=== PATIENT | female | born 1945 | race Caucasian/White ===

== ENCOUNTER 2020-05-09 13:17 | Inpatient (IN) | payer OTHER ==
--- NOTE | 2020-05-09 15:08 | R.PREADM ---
PRE-ADMISSION SCREENING FORM SCREENING DATE AND TIME 05/09/2020 13:19 (CDT) ANTICIPATED REHAB ADMISSION DATE 05/11/2020 REFERRING FACILITY [facility] REFERRAL DATE AND TIME 05/09/2020 11:49 (CDT) REFERRAL ROOM# [facility] 11B ACUTE ADMIT DATE 05/08/2020 Previous Rehabilitation(s): No. ACUTE CANDY DECORATOR/DC INFORMATION TECHNOLOGY ASSISTANT Chava REFERRING PHYSICIAN DR. Susan Womack REHAB FACILITY [facility] CLINICAL LIAISON Sade Brooks PHYSICIAN REVIEWER Dr. Demar Cortez M.D. MR# [id number] [facility] [id number] NAME Lovely Roblero ADDRESS [address] [place] [address] [place]IP [id number] DATE OF 1945 AGE 75 SSN# [id number] GENDER female MARITAL STATUS RACE white PREF. LANGUAGE (IF NON-UGANDAN) Stateless ADMIT FROM 02 - [facility] PRE-HOSPITAL LIVING SETTING 01 - Home (private home/apt. board/care, assisted living, correction, transitional living) HOME TYPE AND DETAILS Type of home: single family house # of steps to enter the residence: 0 # of steps within the residence: 0 # of levels in the residence: 1 lives with son who works from home PRE-HOSPITAL LIVING WITH Family/Relatives FAMILY SUPPORT Yes PRIMARY FAMILY CONTACT NAME Margarita Cortez PRIMARY FAMILY CONTACT PHONE PRIMARY FAMILY CONTACT RELATIONSHIP Son IS PRIMARY FAMILY CONTACT AUTH. REP.? no 1ST EMERGENCY CONTACT Margarita Cortez 1ST CONTACT PHONE 1ST CONTACT RELATIONSHIP Son IS 1ST CONTACT AUTH. REP.? no PHONE 2ND CONTACT ON ADM.? no PATIENT EMPLOYMENT STATUS Retired (for age) PATIENT EMPLOYER No Employer PAYOR INFORMATION: 1ST PAYOR NAME MEDICARE 1ST PAYOR PHONE 1ST PAYOR INJURY/ILLNESS DUE TO ACCIDENT? No ANOTHER CONSTITUTION PARTY RESPONSIBLE? No PRIMARY REHAB/ACUTE DIAGNOSIS: acute cerebellar stroke ONSET DATE 05/08/2020 REHAB IMPAIRMENT CATEGORY (LITO): 01 Stroke (STR) MEETS 60% rule AFFECTED EXTREMITIES: LLE, and LUE PRIMARY DIAGNOSIS-RELATED SURGERIES: No surgeries related to the primary diagnosis were performed. SUMMARY OF ACUTE HOSPITALIZATION: Pt. is a 75 yo Right-handed white female. On 05/08/2020 Pt. presented to [facility] with sudden onset of left-side weakness. On 05/08/2020 she was admitted to [facility] with diagnosis acute cerebellar stroke. Her impairment category is Stroke 01 - Left Body (Right Brain) (01.1). Pre-morbidly, Pt. was independent/mod-I in Transfers Control, Self-Care, and Locomotion; and she had good Balance, Safety Awareness, Sphincter Control, Communication, and Social Cognition. Currently, she has deficits of Transfers Control, Balance, Locomotion, Safety Awareness, and Self-Car e. Pt. is now referred to [facility] for acute in-patient rehabilitation in order to maximize patient's functional independence in activities of daily living, strength, ROM, and mobi lity. Patient has realistic goal of being discharged at assistance level 6-Adriane to reside at Home with Fam petr/Relatives. PAST MEDICAL HISTORY HTN Dyastolic Dysfunction Bilateral Carotid Artery Stenosis CKD 3 Hypothyroidism, unspecified (E03.9) Neuropathy PAST SURGICAL HISTORY: Left Renal Artery Stent COLONOSCOPY Esophogialgastroendoscopy Cholecystectomy thyroidectomy Tonsillectomy MEDICATION ALLERGIES: Aspirin ENVIRONMENTAL ALLERGIES: None Known - Substance Allergies None Known - Other Allergies None Known CODE STATUS: Full code WEIGHT/HEIGHT/BMI: WEIGHT 153 lbs HEIGHT 4' 11" BMI 30.9 DIET: - Diet Type Regular - Diet - Solid Texture Regular - Diet - Liquid Texture Regular - Tube Feed N/A REVIEW OF SYSTEMS: - Gen Alert and awake Lying in bed No apparent distress Oriented to: person, time, and place - Vital Signs Vital signs stable, afebrile - CVS RRR VITAL SIGNS Temperature: 97.7 F SBP/DBP: 217/90 Pulse: 53 Resp: 18 Vital signs stable, afebrile MEDICATIONS/TREATMENT: - See attached MAR (Medication Administration Record). CURRENT SPHINCTER CONTROL: Pre-hospital bladder status: continent # of bladder accidents in the last 7 days prior to screenin Pre-hospital bowel status: continent DETAILED CURRENT FUNCTIONAL STATUS: - Walking score based on distance walked: 1(<=50ft) QI SCORES: - Self-Care A. Eating 05-Setup or clean-up assistance B. Oral hygiene 05-Setup or clean-up assistance C. Toileting hygiene 03-Partial/moderate assistance E. Shower/bathe self 04-Supervision or touching assistance F. Upper body dressing 05-Setup or clean-up assistance G. Lower body dressing 05-Setup or clean-up assistance H. Putting on/taking off footwear 04-Supervision or touching assistance - Mobility A. Roll left and right 04-Supervision or touching assistance B. Sit to lying 04-Supervision or touching assistance C. Lying to sitting on side of bed 04-Supervision or touching assistance D. Sit to stand 04-Supervision or touching assistance E. Chair/vxc-ct-tlmha transfer 04-Supervision or touching assistance F. Toilet transfer 04-Supervision or touching assistance G. Car transfer 10-Not attempted due to environmental limitations I. Walk 10 feet 04-Supervision or touching assistance J. Walk 50 feet with two turns 88-Not attempted due to medical condition or safety concerns K. Walk 150 feet 88-Not attempted due to medical condition or safety concerns L. Walking 10 feet on uneven surfaces 88-Not attempted due to medical condition or safety concerns M. 1 step (curb) 88-Not attempted due to medical condition or safety concerns N. 4 steps 88-Not attempted due to medical condition or safety concerns O. 12 steps 88-Not attempted due to medical condition or safety concerns P. Picking up object 88-Not attempted due to medical condition or safety concerns - Bladder and Bowel Bladder continence 0-Always continent Bowel continence 0-Always continent - Endurance Poor - Balance Poor - Safety Awareness Poor CURRENT FUNC. DEFICITS: Self-Care, Mobility, Endurance, Balance, and Safety Awareness HISTORY OF FALLS. HAS THE PATIENT HAD TWO OR MORE FALLS IN THE PAST YEAR OR ANY FALL WITH INJURY IN T HE PAST YEAR?: No PRIOR SURGERY. DID THE PATIENT HAVE MAJOR SURGERY DURING THE 100 DAYS PRIOR TO ADMISSION?: No THERAPY NOTES FROM ACUTE CARE: Attached. SPECIAL NEEDS: - Safety Concerns Skin breakdown precautions needed due to skin breakdown risk PRECAUTIONS: - Weight Bearing Precaution WBAT left LE PATIENT NEEDS ACTIVE AND ONGOING THERAPEUTIC INTERVENTION OF MULTIPLE THERAPY DISCIPLINES, INCLUDING: - Occupational Therapy Cognitive Retraining. Visual Perceptual Training. - Dietary and Nutrition Adequate Nutrition. Nutritional Education. Nutritional Supplements. - Speech Therapy Cognitive Training. Expressive Language Skills. Memory Strategies. Receptive Language Skills. Speech Intelligibility Training. PATIENT NEEDS CLOSE MEDICAL SUPERVISION BY A REHABILITATION PHYSICIAN FOR: Coordination of Treatment Team PATIENT REQUIRES 24X7 REHAB NURSING FOR MEDICAL AND FUNCTIONAL MGT. OF THE FOLLOWING DEFICITS: Disease Management Medication Management Patient/Family Education Providing Safe Environment PATIENT REQUIRES INTENSIVE, COORDINATED INTERDISCIPLINARY APPROACH TO REHAB: Arranging Home Equipment/Services Discharge Planning Family Intervention/Training Tax Compliance Manager/Case Management PATIENT REHAB POTENTIAL: Laura Roblero is able and expected to receive 3 hours of individualized therapy daily on at least 5 of adebayo ry 7 days Laura Hymans prognosis for significant practical improvement within a reasonable period of time appears Good Expected level of measurable improvement will be of a practical value to Laura Hymans functional capaci ty or adaptations to impairments Has a viable Discharge Plan Medically appropriate; condition is sufficiently stable to participate in intensive rehab program DISCHARGE PLAN: - Estimated Length of Stay (days) 17. - Consensus on plan Discharge plan has been discussed with primary caregiver. Patient/Family is in agreement with the mis n. Primary caregiver is in agreement with the plan. - Patient/Family Goals Return home independently. - Planned Living Setting Upon Discharge Home, to live with Family/Relatives. RECOMMENDED CARE LEVEL: IRF RECOMMENDATION DETAILS: Recommended Admission to Comprehensive Rehabilitation Program to Increase Functional [place] SCREENER'S COMPLETENESS CONFIRMATION: - Screening Confirmation The patient data collection on this preadmission screening form is finished PHYSICIANS REVIEW AND ADMISSION DETERMINATION Admit - Based on my review of the Pre-Admission Screening results, in my medical judgment and experie nce, I concur with the findings and recommend admission to [facility], as this patient requires an IRF level of care. SIGNATURE PANEL: Clinical Liaison - [electronically] signed by Sade Brooks RN on 05/09/2020 at 13:58 (CDT) Chinchilla Farmer - [electronically] signed by Rachel Hastings, Tire Recapper on 05/09/2020 at 14:15 (CD T) Physician Reviewer - [electronically] signed by Dr. Demar Cortez M.D. on 05/09/2020 at 15:07 (CDT )
--- OUTSIDE RECORDS SUMMARY | 2020-05-09 18:46 | XMS REPORT | Summary of Care ---
:1945 Author Organization [facility] Address [address] [place] [id number] Care Team Providers Name Role Phone Jose Bernal MD Primary Care Provider Pascale Shaffer MD Unavailable Julee Garcia MD Unavailable Magdalena Frey MD Studio Director Reason for Visit Reason Comments Refill Request Encounter Details Date Type Department Care Team Description 02/14/2020 Refill [facility] Pediatric and Laure Bernal, Refill Request Adult Primary Care- MD Melendez [address] [place] [address] [address] [address] [address] [place] [address] [place] [address] [phone] Allergies Active Allergy Reactions Severity Noted Date Comments Amoxicillin Nausea and/or Vomiting Low 12/14/2017 documented as of this encounter (statuses as of 02/14/2020) Medications Medication Sig Dispensed Refills Start Date End Date Status aspirin 81 mg Take 1 tablet 30 tablet 6 10/27/2016 A ctive chewable tablet by mouth daily. HYDROCODONE-ACETAMIN Take by 0 Active OPHEN ORAL mouth. losartan 50 mg Take 1.5 135 tablet 2 05/11/2019 Act jamey tabletIndications: tablets by Essential mouth every hypertension, day at 1200 benign, (HFpEF) (noon). heart failure with preserved ejection fraction, Obesity (BMI 30-39.9), LANDRY (dyspnea on exertion), Uncontrolled hypertension, Chronic kidney disease, unspecified CKD stage carvedilol 25 mg Take 1 tablet 180 tablet 3 05/11/2019 Active tabletIndications: by mouth 2 Essential (two) times hypertension, daily with benign, (HFpEF) meals. heart failure with preserved ejection fraction, Obesity (BMI 30-39.9), LANDRY (dyspnea on exertion), Uncontrolled hypertension, Chronic kidney disease, unspecified CKD stage metroNIDAZOLE Take 1 tablet 30 tablet 3 10/11/2019 A ctive (FLAGYL) 500 mg by mouth every tabletIndications: 8 (eight) Diverticulitis hours. ciprofloxacin HCl Take 1 tablet 20 tablet 3 10/11/2019 Active (CIPRO) 500 mg by mouth every tabletIndications: 12 (twelve) Diverticulitis hours. Diclofenac Sodium Take 2-4 grams 100 g 3 10/11/2019 Active (VOLTAREN) 1 % three times a gelIndications: day as needed Right anterior for pain shoulder pain albuterol 2.5 mg /3 Inhale 3 mL 180 Vial 3 11/11/2019 Active mL (0.083 %) every 4 (four) nebulizer hours as solutionIndications: needed for SOBOE (shortness of Wheezing or breath on exertion), Shortness of Heart failure with Breath. preserved ejection fraction, unspecified HF chronicity LEVOTHYROXINE 125 TAKE ONE 90 tablet 0 02/14/2020 A ctive mcg tablet TABLET BY MOUTH EVERY MORNING levothyroxine 125 Take 1 tablet 90 tablet 1 03/30/2019 02 Discontinued mcg tablet by mouth every 0 morning. documented as of this encounter (statuses as of 02/14/2020) Active Problems Problem Noted Date Combined forms of age-related cataract of left eye Overview: Added automatically from request for cara briana [id number] Combined forms of age-related cataract of both eyes Overview: Added automatically from request for cara briana [id number] Intestinal angina 12/31/2017 Generalized abdominal pain 12/04/2017 Renal artery stenosis 11/16/2017 CKD (chronic kidney disease) stage 3, GFR 30-59 ml/min 09/22/2017 Secondary hypertension 09/21/2017 (HFpEF) heart failure with preserved ejection fraction 09/21/2017 Hypothyroidism 04/11/2006 Overview: ICD10 Diagnosis Term Chipper Feeder Utility HLD (hyperlipidemia) 04/11/2006 Overview: ICD10 Diagnosis Term Chipper Feeder Utility documented as of this encounter (statuses as of 02/14/2020) Resolved Problems Problem Noted Date Resolved Date Anxiety disorder 01/01/2018 05/15/2018 Insomnia secondary to anxiety 01/01/2018 05/15/2018 Hospitalization within last 30 days 12/31/2017 10/0 08/2017 Vomiting 12/30/2017 05/15/2018 Unspecified severe protein-calorie malnutrition 12/27/2017 05/15/2018 Protein-calorie malnutrition, moderate 12/27/2017 1 Protein-calorie malnutrition, mild 12/27/201705/15 Moderate protein-calorie malnutrition 12/27/2017 Mild protein-calorie malnutrition 12/27/20172017 Stomach pain 11/23/2017 05/15/2018 Persistent vomiting 11/21/2017 05/15/2018 Obesity (BMI 30-39.9) 10/21/2016 05/15/2018 CHF (congestive heart failure) 8 documented as of this encounter (statuses as of 02/14/2020) Immunizations Name Administration Dates Next Due Influenza High Dose 10/11/2019, 10/26/2018, 07/16/2017 Pneumococcal 13 Conjugate, PCV13 (Prevnar 07/16/2017 13) Pneumococcal Polysaccharide, PPSV23 10/27/2016 (PNEUMOVAX) Td 08/11/2019 documented as of this encounter Social History Tobacco Use Types Packs/Day Years Used Date Never Smoker Smokeless Tobacco: Never Used Alcohol Use Drinks/Week oz/Week Comments No 0 Standard drinks or equivalent 0.0 Sex Assigned at Date Recorded Not on file Job Start Date Occupation Industry Not on file Not on file Not on file Travel History Travel Start Travel End No recent travel history available. documented as of this encounter Last Filed Vital Signs Not on filedocumented in this encounter Plan of Treatment Date Type Specialty Care Team Description 04/10/2020 Office Visit Internal Medicine Tara Bernal MD [address] [place] [address] [phone] 05/16/2020 Office Visit Cardiology Andrew Frey MD [address] [place] [phone] Health Maintenance Due Date Last Done Comments DTaP,Tdap,and Td Vaccines (1 1957 08/11/2019 - Tdap) Zoster Recombinant Vaccine 1996 (SHINGRIX) (1 of 2) Medicare Wellness Visit 02/28/2020 02/27/2019 Breast Cancer Screening 03/01/2020 Postpone d from 1986 (MAMMOGRAM) (Refused) Depression Screening 08/24/2020 08/24/2019 COLONOSCOPY 11/26/2027 11/25/2017 Osteoporosis Screening 11/07/2028 11/07/2018 HEPATITIS C (HCV) SCREEN Completed 11/10/2016 PNEUMOCOCCAL VACCINES 65+ Completed 07/16/2017, 10/27/2016 INFLUENZA VACCINE Completed 10/11/2019, 10/26/2018, 07/16/2017 documented as of this encounter Implants Implanted Type Area Photogrammetric Compilation Specialist Device Shelf Model / Serial Identifier Expiration / Lot Date Lens, Salty #[id number] 24.0d - [id number] LENS Right: Salty 03/14/2023 SN60WF 24.0D / Implanted: Qty: 1 on 09/07/2018 by Isiah Castelan MD at [facility] Eye [id number] / 0 Lens, Salty #[id number] - [id number] LENS Salty 05/14/2019 [id number] / Implanted: Qty: 1 on 10/12/2018 by Isiah Castelan MD at [facility] [id number] / 0 documented as of this encounter Results Not on filedocumented in this encounter Insurance Payer Benefit Plan / Subscriber ID Effective Dates Phone Addre ss Type Group MEDICARE MEDICARE PART xxxxxxxxxxx 2011-Steven [phone] Medicare [address] [id number] [place] [employer] [id number] documented as of this encounter
--- OUTSIDE RECORDS SUMMARY | 2020-05-09 18:47 | XMS REPORT | Summary of Care ---
:[address] [facility] Address [address] [place] [id number] Care Team Providers Name Role Phone Jose Bernal MD Primary Care Provider Pascale Shaffer MD Unavailable Julee Garcia MD Unavailable Magdalena Frey MD Internet Marketing Assistant Reason for Referral (Routine) Status Reason Specialty Diagnoses / Referred By Referred To Procedures Contact Contact New Request PN-NEUROLOGY Diagnoses Left-sided weakness Kervin Garcia Procedures Discharge Follow-Up: Specialty Service PN-NEUROLOGY ; As Needed (90 days) MD Michael [address] [place] [address] (Routine) Status Reason Specialty Diagnoses / Referred By Contact Refe rred To Procedures Contact New Request Diagnoses Left-sided weakness GarciaKervin blanton, Procedures Discharge Follow-up: PCP HUI BERNAL; 1 Week MD Hui Rodriguez MD [address] [place] [address] [place], [place] [address] [address] Phone: [place] [address] Fax: (Routine) Status Reason Specialty Diagnoses / Procedures Referred By Nely michaelerred To Contact Contact New Request Cardiology Diagnoses Left-sided weakness Ataxia Susan oWmack MD Procedures STROKE Protocol - Echocardiogram Routine with Doppler Color [facility] [place] [address] MRI/CAT Scan (STAT) Status Reason Specialty Diagnoses / Referred By Referred To Procedures Contact Contact New Request Diagnostic Diagnoses Left-sided weakness Susan Womack MD Radiology Procedures MR BRAIN WO CONTRAST [facility] [place] [id number] MRI/CAT Scan (STAT) Status Reason Specialty Diagnoses / Referred By Referred To Procedures Contact Contact New Request Diagnostic Diagnoses Left-sided weakness Oly Mcclelland, Radiology Procedures CT STROKE ANGIOGRAM NECK [address] [place] [address] MRI/CAT Scan (STAT) Status Reason Specialty Diagnoses / Referred By Referred To Procedures Contact Contact New Request Diagnostic Diagnoses Left-sided weakness Oly Mcclelland, Radiology Procedures CT STROKE ANGIOGRAM HEAD [address] [place] [address] MRI/CAT Scan (STAT) Status Reason Specialty Diagnoses / Referred By Referred To Procedures Contact Contact New Request Diagnostic Diagnoses Left-sided weakness Oly Mcclelland, Radiology Procedures CT STROKE HEAD WO CONTRAST [address] [place] [id number] Reason for Visit Reason Comments Weakness Left sided Auth/Cert Status Reason Specialty Diagnoses / Referred By Referred To Procedures Contact Contact Emergency [facility] [address] [place] [address] Fax: Encounter Details Date Type Department Care Team Description 05/08/2020 - Hospital Encounter Neurology/Neurologic Oly Mcclelland MD [address] [place] [address] [place] [address] [id number] Ataxia 05/09/2020 al Surgery (CHELLY 11B) Susan Womack MD [address] [place] [address] [address] [place] [address] Allergies Active Allergy Reactions Severity Noted Date Comments Amoxicillin Nausea and/or Vomiting Low 12/14/2017 documented as of this encounter (statuses as of 05/09/2020) Medications Medication Sig Dispensed Refills Start End Date Status Date Diclofenac Sodium Take 2-4 grams 100 g 3 Active (VOLTAREN) 1 % three times a 0 gelIndications: day as needed Right anterior for pain shoulder pain albuterol 2.5 mg /3 Inhale 3 mL 180 Vial 3 Active mL (0.083 %) every 4 (four) 0 nebulizer hours as solutionIndications needed for : SOBOE (shortness Wheezing or of breath on Shortness of exertion), Heart Breath. failure with preserved ejection fraction, unspecified HF chronicity LEVOTHYROXINE 125 TAKE ONE 90 tablet 0 Ac tive mcg tablet TABLET BY 0 MOUTH EVERY MORNING atorvastatin 80 mg Take 1 tablet 90 tablet 2 Active tabletIndications: by mouth at 0 Left-sided weakness bedtime. clopidogreL 75 mg Take 1 tablet 28 tablet 0 Active tabletIndications: by mouth 0 Left-sided weakness daily. FLUoxetine 10 mg Take 1 capsule 90 capsule 0 Active capsuleIndications: by mouth 0 Left-sided weakness daily. aspirin 81 mg Take 1 tablet 30 tablet 7 Ac tive chewable by mouth 0 tabletIndications: daily. Left-sided weakness carvediloL 25 mg Take 1 tablet 60 tablet 0 Active tabletIndications: by mouth 2 0 Left-sided weakness (two) times daily with meals. losartan 50 mg Take 1.5 60 tablet 0 Activ e tabletIndications: tablets by 0 Left-sided weakness mouth daily. aspirin 81 mg Take 1 tablet 30 tablet 6 05/09/20 Di scontinued chewable tablet by mouth 7 20 (Reo rder) daily. HYDROCODONE-ACETAMI Take by 0 05/09/20 Discontinued NOPHEN ORAL mouth. 20 losartan 50 mg Take 1.5 135 tablet 2 05/09/20 Disc ontinued tabletIndications: tablets by 9 20 Essential mouth every hypertension, day at 1200 benign, (HFpEF) (noon). heart failure with preserved ejection fraction, Obesity (BMI 30-39.9), LANDRY (dyspnea on exertion), Uncontrolled hypertension, Chronic kidney disease, unspecified CKD stage carvedilol 25 mg Take 1 tablet 180 tablet 3 05/09/20 Discontinued tabletIndications: by mouth 2 9 20 Essential (two) times hypertension, daily with benign, (HFpEF) meals. heart failure with preserved ejection fraction, Obesity (BMI 30-39.9), LANDRY (dyspnea on exertion), Uncontrolled hypertension, Chronic kidney disease, unspecified CKD stage metroNIDAZOLE Take 1 tablet 30 tablet 3 05/09/20 Di scontinued (FLAGYL) 500 mg by mouth every 0 20 tabletIndications: 8 (eight) Diverticulitis hours. ciprofloxacin HCl Take 1 tablet 20 tablet 3 05/09/20 Discontinued (CIPRO) 500 mg by mouth every 0 20 tabletIndications: 12 (twelve) Diverticulitis hours. documented as of this encounter (statuses as of 05/09/2020) Active Problems Problem Noted Date Ataxia 05/09/2020 Combined forms of age-related cataract of left eye Overview: Added automatically from request for cara briana [id number] Combined forms of age-related cataract of both eyes Overview: Added automatically from request for cara briana [id number] Intestinal angina 12/31/2017 Generalized abdominal pain 12/04/2017 Renal artery stenosis 11/16/2017 CKD (chronic kidney disease) stage 3, GFR 30-59 ml/min 09/22/2017 Secondary hypertension 09/21/2017 (HFpEF) heart failure with preserved ejection fraction 09/21/2017 Hypothyroidism 04/11/2006 Overview: ICD10 Diagnosis Term Tuckpointer Cleaner Caulker Utility HLD (hyperlipidemia) 04/11/2006 Overview: ICD10 Diagnosis Term Tuckpointer Cleaner Caulker Utility documented as of this encounter (statuses as of 05/09/2020) Resolved Problems Problem Noted Date Resolved Date [...] as of this encounter (statuses as of 05/09/2020) Immunizations Name Administration Dates Next Due Influenza [...] Assigned at Date Recorded Not on file COVID-19 Exposure Response Date Recorded In the last month, have you been in contact with No / Unsure 05/08/2020 8:31 PM CDT someone who was confirmed or suspected to have Coronavirus / COVID-19? documented as of this encounter Last Filed Vital Signs Vital Sign Reading Time Taken Comments Blood Pressure 181/78 05/09/2020 4:10 PM CDT Pulse 62 05/09/2020 4:10 PM CDT Temperature 36.6 C (97.8 F) 05/09/2020 4:10 PM CDT Respiratory Rate 18 05/09/2020 4:10 PM CDT Oxygen Saturation 95% 05/09/2020 4:10 PM CDT Inhaled Oxygen Concentration - - Weight 69.4 kg (153 lb) 05/09/2020 12:20 AM CDT Height 149.9 cm (4' 11") 05/09/2020 12:20 AM CDT Body Mass Index 30.9 05/09/2020 12:20 AM CDT documented in this encounter Discharge Instructions AttachmentsThe following attachments cannot be sent through Care Everywhere. Stroke, Risk Factors for (Ukrainian)Stroke, Symptoms (Ukrainian)Stroke: Resources and Support (Ukrainian)Clopidogrel tablets (Ukrainian)Atorvastatin tablets (Ukrainian) documented in this encounter Progress Notes Rona Brooks, AXEL - 05/09/2020 2:25 PM CDT Care Management Discharge Disposition Note (DCDN) 5-2-1 Interventions: Disease specific education;Clear discharge plan;Intensive medication reconciliation/management;Follow-up appointments;Teach back 5-2-1 Providers: Physician;Oilseed Meat Presser/Ergonomist;Nurse 5-2-1 Patient Capacity Improvements: Avoidance of adverse events/readmission Discharge Plan for ongoing care and services: Rehabilitation Patient Choice completed for referred services: Yes Discussed with patient/patients family involved in decision making: Patient or family caregiver understands, and agrees with discharge plan. Margarita Cortez Daughter [phone]; Jordyn Jackson Daughter [phone] Discharge Plan: Rehabilitation Discharge location(s): Rehabilitation location: [facility] [address] [place], [place] () [phone] (F) [phone] Community resources/referrals made or provided to patient: No Mental Status: Alert & Oriented to Person,Place & Time Psychosocial issues and/or concerns resulting in patient being a high risk for re-admission: Manage ADL indepentdly: No Discussed with patient/patients family involved in decision making: Primary Family/Support Person Name and Phone Number: Living Arrangement: Home Other living arrangement: Address of living arrangement: [address] [place] [address] Funding Resources: Medicare A & B Has patient been referred to [facility]? Nursing informed of discharge plan: CM medication request completed (if appropriate): N/A PCP: Yes Transportation: Wheelchair Van [facility] Priority transport Discharge Medications Will the patient be able to obtain his medications? Yes Does the patient have transportation to to obtain the prescription medications? Yes CM Medication Request completed (if appropriate): Yes Name of RN informed: SANDRA Baker Expected discharge date: 05/09/2020 Time: 430pm to 530pm Additional Information: DC packet with signed MOT and PAC form given to RN. [facility] Priority Wheelchair Van [phone] is scheduled to pick patient up at 1630 to 1730. Please contact CC/SW or designated mode of transportation if arrival time is delayed greater than 1 hour of thescheduled picked edge sewing machine operator time. Discharge summary and discharge order faxed to in rehab VALENTINO/AXEL Name & Contact number: Ephraim Eaton RN Ph. [phone] The following information has been provided to the facility noted above: reason for the patient discharge or transfer; patients physical and psychosocial status; summary of care, treatment, servicesprovided to patient; and the patient progress toward goals. Ephraim Elizondo RN - 05/09/2020 12:02 PM CDTCare Management Social Functional Assessment Patient Name: Lovely Roblero Age: [age] year old Sex: female Patient's Previous Admission Date at [facility]: 12/30/2017 Current diagnosis and co-morbidities: Stroke Readmission Questions: Was patient discharged from any acute care hospital within the last 30 days: No Social Functional Assessment: Primary language spoken/preferred: Ukrainian Mental Status: Alert & Oriented to Person,Place & Time Information given by: Self Patient's support system: Child Name and number of support system: Margarita Cortez Daughter [phone]; Jordyn Jackson Daughter [phone] Primary Parlor Chaperone: Self MPOA: No Living Arrangement: Home Address of living arrangement : [address] [place] [address] Persons living in home: Self Barriers to returning home: Declining function Baseline functional status- ambulation: Independent Functional status-baseline personal care: Independent Baseline functional status- driving: Independent Baseline functional status- grocery shopping: Independent Functional status-baseline housekeeping: Independent Functional status-baseline meal prep: Independent Current functional status same as prior: No Current functional status- ambulation: Requires minimal to moderate assistance Current functional status- personal care: Requires minimal to moderate assistance Current functional status- driving: Dependent Current functional status- grocery shopping: Requires minimal to moderate assistance Current functional status-house keeping: Requires minimal to moderate assistance Current functional status- meal preparation: Requires minimal to moderate assistance Do you have a PCP?: Yes Name of PCP: HUI BERNAL Home Health Care Agency: No Provider Services: No DME Company: No Equipment: None Hemodialysis: No Community resources utilized: None Funding Resources: Medicare A & B Prescription coverage plan: Self Pay(Brian has [employer] Prescription program card) Pharmacy where meds are filled: Other Other pharmacy: [facility] [place], [place] Anticipated services prior to disharge: Continue Medical Eval;Consult;PT/OT/ST;Reassess prior to discharge Expected mode of discharge transportation: Wheelchair van Additional info required for discharge planning: Pending medical evaluation;Pending P/T O/T recommendation Recommended discharge plan: New placement SFA Complete: Social Functional Assessment complete: Yes Alcohol Use Screening (AUDIT-C) How often do you have a drink containing alcohol?: Never SCORE: 0 Did patient elect to have resources provided: No Actions taken: Provided support Role of Care Management explained. Please see previous note. On 05/09/20 Chava Eaton Jr., RN, BSN. Oilseed Meat Presser [phone] [email or web address] Ephraim Elizondo RN - 05/09/2020 11:44 AM CDTCare Management Note: After discussion with Dr. Garcia, and HEMANT Majano in stroke rounds, Dr. Garcia patient would benefit from rehab placement, and wants patient to go to inpatient rehab. CM met with patient and patient's daughters at bedside. CM spoke to patient in depth regarding the differences between HH VS SNF VS IRF. [facility] [address] [place] [address] . Choice letter signed. Referral sent. Dali with Rehab not ified. Choice Notice Patient has been informed that: "As part of your discharge plan, your hospital is required to provide you with (1) a complete list of appropriate Home Health Agency/Fpc Facility among which you are free to choose, and (2)information regarding certain financial interests among the hospital and any such REGISTERED PUBLIC SURVEYOR/SNFs ("Required Hospital Disclosures"). Your hospital will provide Required Hospital Disclosures to you separately. This Home Health Agency/Fpc Facility Ogfxeuw-zr-Hikw Supplement is intended to provide you with additional information regarding duxygaw-ci-dufi that you may consider in selecting a REGISTERED PUBLIC SURVEYOR/SNFand is not intended as a substitute or replacement for the Required Hospital Disclosures. Specifically, this Supplement highlights quality information about high-performing local vendors/facilities that serve patients with medical conditions similar to yours. We encourage you to discuss with our care team and your doctor(s) which vendors/facilities can best address your individual needs. The statements contained in the provided document are solely those of the authors and do not necessarily reflect the views or policies of [facility]. The authors assume responsibility for the accuracy and completeness of the information contained in this document." Lovely Bella Roblero [id number] 1945 RE: Care Management Patient Choice Notification Your doctor has recommended that you have post-hospital care services at discharge. You can choose the provider you want, regardless of its relationship with [facility]. We will contact any of the agencieswithin the [facility] network, or any other agency upon your request. Based on where you live and agency service areas, a list was generated from: Medicare.gov Disclosure: [facility] owns or is affiliated with the following facilities/agencies: [facility] ([facility] and rehabilitation) If you are being referred to a home health agency or [facility] facility, you will also be given a CMS Beneficiary Notification Letter (Blxfqsp-ry-Agux Profile Supplement) informing you about [facility]'s preferred partners. Patient Choice Acknowledgement I, Lovely Roblero / authorized inside sales representative, am aware that I have choice in selecting post-hospital care providers. The hospital has given me a list of providers in the area available to me and/or my authorized inside sales representative. My choice(s) are listed below: ? Rehab: [facility], [address], [place], [place] () [phone] (F) [phone] Your signature on this form indicates that you have been given the following information: ? I have been advised of my right to choose the providers I wish ? If mcc facilities, long-term acute care hospitals, personal care homes, or home healthagencies were recommended, I was given a list of facilities/agencies in my geographic area that deliver these services or ? I have pre-selected or am an established client with a facility/agency and choose to initiate/continue services 05/09/20 Patient/Guardian/Responsible Libertarian Signature Date Original signed and placed in paper chart, copy provided to patient. Chava Eaton Jr. RN, BSN. Oilseed Meat Presser [phone] [email or web address] - 05/09/2020 11:23 AM CDTSpeech-Language Pathology 05/09/2020 0955 [facility] to patient's room to address consult per stroke activation. However, patient getting echo. Will re-attempt later this date as time permits. Asia Pena M.S[facility] Speech-Language Pathologist Office: [phone] Pager: [phone] Ephraim Eaton RN - 05/09/2020 10:04 AM CDTCare Management Note: CM attempted to complete SFA, however, patient getting Bedside ECHO done. CM will follow up. Chava Eaton Jr., RN, BSN. Oilseed Meat Presser [phone] [email or web address] documented in this encounter H&P Notes Pedro Greene MD - 05/09/2020 1:45 AM CDT STROKE SERVICE HISTORY AND PHYSICAL DATE OF SERVICE: 05/09/2020 02:42 CHIEF COMPLAINT: ataxia, left face arm and leg weakness HISTORY OF PRESENT ILLNESS Lovely Roblero is a 75 year old female right handed with HTN, HFpEF (diastolic dysfunction, moderate concentric LV hypertrophy, normal EF in 2018), asymptomatic bilateral carotid artery stenosis, Bilateral renal artery stenosis s/p left renal artery stent (11/16/2017), CKD 3, Hypothyroidism, presents with left sided weakness and ataxia since 9am 05/08/20. Patient was LSN 11pm 05/07/20. She woke up with drooling on her left side and noted her left arm was difficult to control and "flopping", falling on her face. She was unable to stand up, however felt leg leg was "dragging" and weaker. Able towalk by holding onto dailey for support. Reported she noted a facial droop in the bathroom and had bernabe e slurred speech in the morning as well. She stayed home with all her symptoms lasting until evening, when she went to the ER ~8pm. Reported she had to lean to the right and grab objects not to fall over to the left side, denied any fall so far. Denied any diplopia, headache, nausea, neck pain, vertigo. At [facility], had only left sided ataxia, no weakness or slurred speech. Antiplatelets: Yes Aspirin 81mg Anticoagulations: No Tobacco abuse: No, never Alcohol abuse: No Drug abuse: No Previous stroke: No Body mass index is 30.9 kg/m. STROKE DOCUMENTATION Stroke Activation - Date: 05/09/20 Stroke Activation - Time: (not recorded) Neurology arrival at bedside - Date: 05/09/20 Neurology arrival at bedside - Time: 0150 CT-Head without contrast read by Neurology: (not recorded) Last seen normal: Last known well - Date: 05/07/20 Last known well - Time: 2300 Wake up stroke: Yes NIH STROKE SCALE NIHSS TOTAL: 2 NIHSS Interval: Admission LOC: 0 Alert: Keenly Responsive LOC QUESTIONS: 0 Answers Both Questions Correctly LOC COMMANDS: 0 Performs Both Tasks Correctly BEST GAZE: 0 Normal VISUAL: 0 No Visual Loss FACIAL PALSY: 0 Normal MOTOR ARM-LEFT: 0 No Drift MOTOR ARM-RIGHT: 0 No Drift MOTOR LEG-LEFT: 0 No Drift MOTOR LEG-RIGHT: 0 No Drift LIMB ATAXIA: 2 Present in Two Limbs SENSORY: 0 Normal BEST LANGUAGE: 0 No Aphasia DYSARTHRIA: 0 Normal EXTINCTION AND INATTENTION (FORMERLY NEGLECT): 0 No Abnormalty Dysphagia Screen: Dysphagia Screen Step 1: Pass (none of the above) Dysphagia Screen Step 2: Pass (none of the above) Dysphagia Screen Step 3: Pass (none of the above) Dysphagia Screen Step 4: Pass (none of the above) Dysphagia Screen Step 5: Pass (none of the above) IV Alteplase: Was Alteplase/IV thrombolytic therapy given?: No Reason no IV Alteplase/IV thrombolytic therapy initiated: Arrival > 4.5 hours from symptom onset Did patient and/or family agree to IV Alteplase? Yes If IV Alteplase therapy was indicated and given as a standard of care was the patient/family informed of benefits of treatment and risk such as hemorrhage and/or angioedema?: (not recorded) Was there a delay greater than 45 minutes: (not recorded) Reason (s): (not recorded) ICH/SAH ICH/SAH: No Endovascular Intervention: Was Endovascular Intervention Performed?: No Reason patient is not a candidate for endovascular intervention: NIH less than or equal to 6 PRE- ADMISSION MODIFIED EBENEZER SCORE 3 - Moderate disability; requiring some help, but able to walk without assistance PAST MEDICAL HISTORY Past Medical History: Diagnosis Date Asymptomatic bilateral carotid artery stenosis seen on imaging 12/2018 Bilateral renal artery stenosis 11/16/[address] in the Left renal artery Chronic combined systolic and diastolic congestive heart failure CKD (chronic kidney disease) stage 3, GFR 30-59 ml/min CVA (cerebral vascular accident) In 40s, reportedly related to thyroid surgery HTN (hypertension) Hypothyroidism surgically removed due to goiter Neuropathy PAST SURGICAL HISTORY Past Surgical History: Procedure Laterality Date SECTION COLONOSCOPY N/A 11/25/2017 Surgeon: Blair Caballero MD; Location: [facility] Location ESOPHAGOGASTRODUODENOSCOPY N/A 11/25/2017 Surgeon: Blair Caballero MD; Location: [facility] ([facility] Location PHACOEMULSIFICATION OF CATARACT WITH INTRAOCULAR LENS IMPLANT Right 09/07/2018 Surgeon: Isiah Garcia MD; [facility]: [facility] PHACOEMULSIFICATION OF CATARACT WITH INTRAOCULAR LENS IMPLANT Left 10/12/2018 Surgeon: Isiah Garcia MD; Location: [facility] THYROIDECTOMY in her 40s. 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 Social Needs Financial resource strain: Not on file Food insecurity Worry: Not on file Inability: Not on file Transportation needs Medical: Not on file Non-medical: Not on file Tobacco Use Smoking status: Never Smoker Smokeless tobacco: Never Used Substance and Sexual Activity Alcohol use: No Alcohol/week: 0.0 standard drinks Drug use: No Sexual activity: Not Currently Lifestyle Physical activity Days per week: Not on file Minutes per session: Not on file Stress: Not on file Relationships Social connections Talks on phone: Not on file Gets together: Not on file Attends muslim service: Not on file Active member of club or organization: Not on file Attends meetings of clubs or organizations: Not on file Relationship status: Not on file Intimate partner violence Fear of current or ex partner: Not on file Emotionally abused: Not on file Physically abused: Not on file Forced sexual activity: Not on file Other Topics Concern Not on file Social History Narrative Live at home alone, 1 story. 02/27/2019 Reviewed patient's family, surgical and social hx. HOME MEDICATIONS Medications Prior to Admission Medication Sig Dispense Refill Last Dose LEVOTHYROXINE 125 mcg tablet TAKE ONE TABLET BY MOUTH EVERY MORNING 90 tablet 0 albuterol 2.5 mg /3 mL (0.083 %) nebulizer solution Inhale 3 mL every 4 (four) hours as needed for Wheezing or Shortness of Breath. 180 Vial 3 ciprofloxacin HCl (CIPRO) 500 mg tablet Take 1 tablet by mouth every 12 (twelve) hours. 20 tablet 3 Diclofenac Sodium (VOLTAREN) 1 % gel Take 2-4 grams three times a day as needed for pain 100 g 3 metroNIDAZOLE (FLAGYL) 500 mg tablet Take 1 tablet by mouth every 8 (eight) hours. 30 tablet 3 carvedilol 25 mg tablet Take 1 tablet by mouth 2 (two) times daily with meals. 180 tablet 3 losartan 50 mg tablet Take 1.5 tablets by mouth every day at 1200 (noon). 135 tablet 2 HYDROCODONE-ACETAMINOPHEN ORAL Take by mouth. aspirin 81 mg chewable tablet Take 1 tablet by mouth daily. 30 tablet 6 HOSPITAL MEDICATIONS Current Facility-Administered Medications Medication Dose Route Frequency Last Rate Last Dose albuterol (PROVENTIL) 2.5 mg /3 mL (0.083 %) nebulizer solution 2.5 mg 2.5 mg Inhalation Q4HPRN aspirin chewable tablet 81 mg 81 mg Oral DAILY atorvastatin (LIPITOR) tablet 40 mg 40 mg Oral QHS heparin (porcine) injection 5,000 Units 5,000 Units Subcutaneous Q12H labetaloL (NORMODYNE) injection 20 mg 20 mg Slow IV Push Q30MIN PRN levothyroxine (SYNTHROID) tablet 125 mcg 125 mcg Oral QAM-0600 NaCl 0.9% (NS) injection 5 mL 5 mL Slow IV Push PRN - SEE INSTRUCTIONS ALLERGY Allergies Allergen Reactions Amoxicillin Nausea and/or Vomiting REVIEW OF SYSTEMS General: (-) fever, (-) chills, (-) weight change, (-) dizziness, (-) change in appetite Skin: (-) rash, (-) lesion HEENT: (-) headache, (-) change in hearing, (-) change in vision, (-) nasal discharge, (-) sore throat Neck: (-) pain, (-) difficulty swallowing, (-) mass Heme: (-) bleeding disorder Resp: (-) cough, (-) shortness of breath, (-) dyspnea on exertion Cardio: (-) chest pain, (-) palpitations, (-) syncope GI: (-) abdominal pain, (-) nausea, (-) vomiting, (-) diarrhea, (-) constipation, (-) melena, (-) hematochezia, (-) hematemesis : (-) dysuria, (-) hematuria, (-) increased frequency, (-) difficulty urinating, (-) difficulty initiating Endo: (-) heat intolerance, (-) diabetes, (-) cold intolerance, (-) polyuria, (- ) polydipsia Neuro: per HPI Back: (-) pain, (-) spasms FARIDEH: (-) muscle pain, (-) joint pain, (-) claudication Psych: (-) anxiety, (-) depression, (-) psychiatric disorder PHYSICAL EXAM Vitals: 05/08/20 2230 05/09/20 0020 05/09/20 0026 05/09/20 0100 BP: (!) 172/75 (!) 217/90 (!) 184/75 BP Location: Right arm Pulse: 50 53 Resp: 18 Temp: 36.5 C (97.7 F) TempSrc: Oral SpO2: 97% 95% Weight: 69.4 kg (153 lb) Height: 1.499 m (4' 11") General: Alert and oriented x 4 (time, person, place and situation); no apparent distress. Mental Status: Consciousness, attention, concentration: normal, 2 step commands Speech/ Language: intact to comprehension, fluency, repetition and naming. Fund of knowledge: is congruent with level of education. Cranial Nerves: I. Not tested. II. PERRL. FOV full to confrontation. III. IV., . Extraocular movements intact without nystagmus. V. Normal sensation in V1-3 distributions. VII. No facial droop noted. VIII. Hearing intact. IX., X. Palatal elevation present symmetrically. XI. Normal Strength of sternocleidomastoid and trapezius muscles bilaterally. XII. Tongue in midline. Motor: Tone: normal Bulk: normal Slow fine finger movement with left hand. STRENGTH Right Left Deltoid 5 4+ Biceps 5 4+ Triceps 5 4+ Wrist extensors 5 4 Interossei 5 4 Hip flexors 5 4 Knee flexors (hamstring) 5 4+ Knee extensors (quadriceps) 5 4+ Ankle dorsiflexors 5 4+ Ankle plantar flexors 5 4+ DTR's: Right Left Biceps 2+ 2+ Triceps 2+ 2+ Brachioradialis 2+ 2+ Patella 2+ 2+ Achilles 2+ 2+ Pathologic reflexes and signs: Wick: absent Babinski: absent Cerebellar: Ataxia in proportion to weakness. FTN: left hand ataxic, HTS:left leg ataxic with HTS and drawing [place] in the air, Dysdiadochokinesia: slow with the left hand, Finger tapping slow in left hand. Sensory: LT: intact, proprioception: intact Gait: wide based gait, left-leaning, able to stand with support to keep balance, unable to test Romberg (unsteady even with eyes open). Able to take steps, falling over to the left. HEENT: pupils equal, round, reactive to light; extraocular movements intact; oropharynx clear; moistmucous membranes Lungs: clear to auscultation bilaterally Cardio: RRR Extremities:no cyanosis,clubbing or edema Neck:supple,no carotid bruit,no JVD Abdomen: soft; non-tender; non-distended LABS Recent Results (from the past 24 hour(s)) Prothrombin Time / INR - Code Stroke Collection Time: 05/08/20 8:50 PM Result Value Ref Range PROTIME PATIENT 12.0 12.0 - 14.7 Seconds INR 0.9 aPTT Collection Time: 05/08/20 8:50 PM Result Value Ref Range APTT Patient 30 23 - 38 Seconds CBC without Diff - Code Stroke Collection Time: 05/08/20 8:50 PM Result Value Ref Range WBC 7.67 4.30 - 11.10 10*3/L RBC 4.89 3.93 - 5.25 10*6/L HGB 14.7 11.6 - 15.0 g/dL HCT 45.2 35.7 - 45.2 % MCH 30.1 25.9 - 32.8 pg MCV 92.4 80.6 - 95.5 fL MCHC 32.5 31.6 - 35.1 g/dL PLT 229 166 - 358 10*3/L MPV 11.7 9.5 - 12.9 fL RDW-CV 14.4 12.0 - 15.5 % RDW-SD 48.3 39.0 - 49.9 fL NRBC x10^3 <0.01 10*3/L NRBC/100 WBC 0.0 0.0 - 10.0 /100 WBCs IPF % Troponin I - Code Stroke Collection Time: 05/08/20 8:50 PM Result Value Ref Range TROPONIN I 0.003 <=0.034 ng/mL Basic Metabolic Panel (NA, K, CL, CO2, Glucose, BUN, Creatinine, CA) - Code Stroke Collection Time: 05/08/20 8:50 PM Result Value Ref Range NA 138 135 - 145 mmol/L K 4.6 3.5 - 5.0 mmol/L CL 100 98 - 108 mmol/L CO2 TOTAL 28 23 - 31 mmol/L AGAP 10 2 - 16 BUN 21 7 - 23 mg/dL GLUCOSE 133 (H) 70 - 110 mg/dL CREATININE 1.16 (H) 0.50 - 1.04 mg/dL CALCIUM 10.3 8.6 - 10.6 mg/dL eGFR Calculation (Non-) 45.7 mL/min/1.73m2 eGFR Calculation () 55.3 mL/min/1.73m2 COVID-19 (ID NOW RAPID TESTING) Collection Time: 05/08/20 8:50 PM Specimen: NASOPHARYNGEAL SWAB Result Value Ref Range SARS-CoV-2 Rapid ID NOW Not Detected Not Detected STROKE LABS HGB A1C (% NGSP) Date Value 02/27/2019 5.5 LDL CHOL Date Value 02/27/2019 305 mg/dL (H) 04/11/2006 229 MG/DL (H) CHOL Date Value 02/27/2019 407 mg/dL (H) 04/11/2006 311 MG/DL (H) TSH Date Value 02/27/2019 3.42 mIU/L 04/11/2006 0.36 uIU/mL Recent Labs 05/08/[address] Stroke Head Wo Contrast Result Date: 05/08/[address] evidence of acute intracranial abnormalities. Please note that MRI is more sensitive in the setting of hyperacute ischemia. RL: 135 Ct Stroke Angiogram Head Result Date: 05/08/2020 Impression: No evidence for vertebral artery dissection or occlusion. No hemodynamically significantstenosis in either common or internal carotid artery. Unremarkable CTA of the [place] without vessel occlusion, high-grade stenosis or aneurysm identified. RL: 460 AFC: [id number] Ct Stroke Angiogram Neck Result Date: 05/08/2020 Impression: No evidence for vertebral artery dissection or occlusion. No hemodynamically significantstenosis in either common or internal carotid artery. Unremarkable CTA of the [place] without vessel occlusion, high-grade stenosis or aneurysm identified. RL: 460 AFC: [id number] [employer] Lovely Roblero is a 75 year old female with PMHx HTN, HFpEF (diastolic dysfunction, moderate concentric LV hypertrophy, normal EF in 2018), asymptomatic bilateral carotid artery stenosis, Bilateral renal artery stenosis s/p left renal artery stent (11/16/2017), CKD 3, Hypothyroidism, presents with left sided weakness and ataxia since 9am 05/08/20. Patient was LSN 11pm 05/07/20. NIHSS 2. CT headnormal, CTA head and neck unremarkable, right vertebral artery dominant. # Possible acute cerebellar stroke # Possible lacunar stroke/TIA in right internal capsule? Anatomic localization: right IC Stroke etiology: Cardio-embolic Plan: - Admission under neurology service - Aspirin 325 mg now and Aspirin 81 daily from tomorrow - Lipitor 20mg daily if LDL>70, will adjust according to fasting lipid panel - <220/110 for ischemic stroke first 24h, then resume home anti-hypertensive medications for goalnormo-tension - Telemetry monitoring - Frequent Neurochecks - Avoid hyperthermia, pain and constipation - POCT for BG and sliding scale insulin - Fall precautions - Consult PT/OT/ Speech pathology/Primary swallowing screen - [employer] on stroke education, smoking cessation, healthy diet, physical activity, weight loss - MRI brain without contrast - Transthoracic Echo with bubble study - Check fasting Lipid panel, HgA1C, TSH. - Check CBC, BMP, Pt, PTT, cardiac enzymes x 1, EKG - GI Prophylaxis: famotidine - DVT Prophylaxis: enoxaparin - Code status: full Discussed with Dr. Womack, Neurology Faculty Stroke pager: [phone] Pedro Greene MD Neurology PGY-3 Pager [phone] Associated attestation - Kervin Garcia MD - 05/09/2020 4:30 PM CDT Vascular Neurology attending attestation/addendum: Patient was seen and examined by me with the stroke team during the rounds. I actively participated in evaluation, management and developing the plan of care for this patient. History was reviewed with the patient and available family members. ROS: All negative except documented in the note below or in the neurology resident's note. Please refer to neurology resident's note for details with additions/exceptions as below. 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 CTA head and neck were grossly unremarkable. TTE unremarkable for any obvious structural cardiac source of embolism nor showed any interatrialshunt. Plan: Dual antiplatelet therapy in the form of aspirin and clopidogrel for 3 weeks for aggressive secondary stroke prevention followed by aspirin (ensure compliance as patient reports noncomplian ce with aspirin). ARU demonstrates optimal platelet inhibition with aspirin therapy. LDL 325 - atorvastatin 80 mg at bedtime. HbA1c 5.6, continue with aggressive vascular risk factors modification. Continue telemetry. Plan for prolonged current monitoring with 30 days event monitor as outpatient. BP goal - gradual normotension. TSH is elevated, although patient reports noncompliance with her levothyroxine. Recommend restarting her current medications as per home dose and advised to recheck her TSH in about a week and consider dose adjustment accordingly. PT/OT/speech and swallow evaluation. Above mentioned plan was discussed with patient and family members at bedside in detail. More than 74 minutes were spent in evaluation and management of this patient, more than 50% of the time was spent in counseling and coordinating care for this patient. documented in this encounter Consult Notes Asia Pena, CALVIN - 05/09/2020 1:52 PM CDTAssociated Order(s): CONSULT SPEECH Speech-Language Pathology Clinical Swallow Evaluation 05/09/2020 Lovely Roblero : 1945 Age: [age] year old Sex: female Referring Physician: Jc Date of Referral: 05/09/20 Reason for Referral: stroke activation (dysphagia, speech-language/cognitive-linguistic) Date of Admission/Onset: 05/08/20 Time IN/OUT: [id number] SUBJECTIVE: Patient alert/awake and upright eating lunch upon arrival. Agreeable to evaluation with CRUSHED STONE GRADER. Multiple family members present at bedside. Family reports patient with facial droop and slurred speech yesterday but this appears to have resolved. OBJECTIVE: is being seen for a clinical swallow evaluation. Lovely Roblero is a 75 year old female admitted for left-sided weakness and ataxia with PMH significant for HTN, HFpEF (diastolic dysfunction, moderate concentric LV hypertrophy, normal EF in 2018), asymptomatic bilateral carotid arterystenosis, Bilateral renal artery stenosis s/p left renal artery stent (11/16/2017), CKD 3, Hypothyroidism. NIHSS 2. Pertinent Imaging: Mr Brain Wo Contrast Result Date: 05/09/2020 Impression: Acute-subacute infarct in the right posterior limb internal capsule Background mild ischemic small vessel disease Preliminary Report Dictated by Resident: Kim Marie I, Zack Moore MD., have reviewed this study and agree with the above report. Ct Stroke Head Wo Contrast Result Date: 05/08/[address] evidence of acute intracranial abnormalities. Please note that MRI is more sensitive in the setting of hyperacute ischemia. RL: 135 Ct Stroke Angiogram Head Result Date: 05/08/2020 Impression: No evidence for vertebral artery dissection or occlusion. No hemodynamically significantstenosis in either common or internal carotid artery. Unremarkable CTA of the [place] without vessel occlusion, high-grade stenosis or aneurysm identified. RL: 460 AFC: [id number] Ct Stroke Angiogram Neck Result Date: 05/08/2020 Impression: No evidence for vertebral artery dissection or occlusion. No hemodynamically significantstenosis in either common or internal carotid artery. Unremarkable CTA of the [place] without vessel occlusion, high-grade stenosis or aneurysm identified. RL: 460 AFC: [id number] Previous CR[employer]ED STONE GRADER Services/Swallow History: None documented on chart or reported by patient/family. Past Medical History: Diagnosis Date Asymptomatic bilateral carotid artery stenosis seen on imaging 12/2018 Bilateral renal artery stenosis 11/16/[address] in the Left renal artery Chronic combined systolic and diastolic congestive heart failure CKD (chronic kidney disease) stage 3, GFR 30-59 ml/min CVA (cerebral vascular accident) In 40s, reportedly related to thyroid surgery HTN (hypertension) Hypothyroidism surgically removed due to goiter Neuropathy Past Surgical History: Procedure Laterality Date SECTION COLONOSCOPY N/A 11/25/2017 Surgeon: Blair Caballero MD; Location: [facility] ([facility] Location ESOPHAGOGASTRODUODENOSCOPY N/A 11/25/2017 Surgeon: Blair Caballero MD; Location: [facility] ([facility] Location PHACOEMULSIFICATION OF CATARACT WITH INTRAOCULAR LENS IMPLANT Right 09/07/2018 Surgeon: Isiah Garcia MD; Location: [place] OR Location PHACOEMULSIFICATION OF CATARACT WITH INTRAOCULAR LENS IMPLANT Left 10/12/2018 Surgeon: Isiah Garcia MD; Location: [place] OR Location THYROIDECTOMY in her 40s. due to goiter TONSILLECTOMY General Behavior: Alert and Cooperative Hearing: Within Functional Limits for speech Oral Mechanism: Structure: dentate and moist oral mucosa Function: Unremarkable - no facial droop/weakness, no subjective trismus, symmetric labial spread and pucker, lingual protrusion midline with equal lateralization, symmetrical palatal retraction, no dysphonia, no dysarthria, no apraxia Respiratory Status: room air Orientation/Cognition: - Patient oriented to: person, place, time and situation - Response type: verbal - If verbal, describe speech: clear - Follows 1-step commands: Yes CLINICAL SWALLOW EVALUATION Current Diet Texture/Means of Nutrition: regular Swallows on command: Yes Handles Secretions: Yes Volitional Cough: Yes Spontaneous Cough: No PO trials were administered by patient. Patient was provided with multiple bites/sips of thin liquids, puree and chewable solid consistencies with the following observations: Oral Stage: Anterior leakage of bolus (left or right) not observed Pocketing of bolus (left or right) not observed Subjectively Prolonged oral phase not observed Oral residue (left/right/diffuse) not observed Pharyngeal Stage: Subjectively reduced laryngeal elevation not observed Coughing or throat clearing not observed Change in voice quality not observed Multiple swallows subjectively not observed Respiratory sufficiency and coordination: WFL - no increased work of breathing and/or oxygen sats and respiratory rate remained stable Report of globus sensation: No 3 oz water challenge: passed Patient/Family/Staff education: Discussed findings of evaluation, recommendations and CR[employer]ED STONE GRADER plan of care. Patient/family verbalized understanding and is in agreement with plan of care. Patient/Family goal: safe po intake ASSESSMENT/IMPRESSIONS: Lovely Roblero appears to present with safe, functional swallowing c/b suspected timely swallow initiation with subjectively adequate laryngeal elevation and no overt s/sx of aspiration observed(note: aspiration cannot be confirmed nor ruled out without instrumental study/imaging). Based on these observations, patient appears safe to continue a PO diet with universal swallow precautions. No aphasia, dysarthria, or cognitive-linguistic deficits appreciated by CRUSHED STONE GRADER or reported by patient. No further acute CRUSHED STONE GRADER services appear indicated at this time. Prognosis is good for safe po intake with adherence to swallow precautions due to above findings. RECOMMENDATIONS/GOALS: 1. Recommend patient continue a regular-textured diet with thin liquids and swallow precautions: sitfully upright/chair and remain upright for 30 minutes after meals 2. No further acute CRUSHED STONE GRADER services indicated at this time, so service is signing off. Please re-consult if indicated. Thank you. Asia Pena M.S. [facility]-CRUSHED [facility]ONE GRADER Speech-Language Pathologist Office: [phone] Pager: [phone] Ephraim Eaton RN - 05/09/2020 12:03 PM CDTAssociated Order(s): CONSULT SLOT FLOOR ATTENDANT-ADULTCare Management Note: Please see note on 05/09/20 at 1144. [facility] [address] [place] [address] rehab at this time. Chava Eaton Jr., RN, BSN. [employer] [phone] [email or web address] OT - 05/09/2020 10:32 AM CDTAssociated Order(s): CONSULT ADULT OCCUPATIONAL THERAPY OT GENERAL EVALUATION Consult received via [employer], EMR reviewed and evaluation completed 05/09/20. Patient referred to occupational therapy for evaluation and treatment per stroke protocol. Patient agreeable to participate in occupational therapy. Discharge Recommendations: Therapy Needs and Potential:- Patient would benefit from continued skilled occupational therapy services to address: Decline in basic activities of daily living, Decline in instrumental activities of daily living, Decreased strength, Decreased range of motion and Decreased coordination - Patient demonstrates good potential to improve and meet therapy goals with further skilled occupational therapy services. - Patient appears motivated to improve their B/IADLs and return to their previous level of function. - Patient demonstrates ability to tolerate at least 30-60 minutes of active participation in occupational therapy. - Patient able to follow commands: 1-step Yes, Multi-step Yes, Inconsistencies No Challenges to Home Transition:- Requires physical assistance for BADLS - Requires physical assistance for IADLS - Requires supervision or verbal cues for BADLS - Requires supervision or verbal cues for IADLS - Limited caregiver availability - Decreased safety awareness/judgement - Increased risk of falls Equipment Recommendations:Grab bars and Hand held shower PLAN OF CARE: At least 2x/week Precautions: Weight bearing status: NA General: PPE Utilized: Gloves and Surgical mask and Fall Bracing: N/A Current Occupational Performance and/or Treatment: Feeding: SBA/Setup, drinks from thermos in standing, verbal cues provided for use of L UE on sink for stability Grooming: SBA/Setup, performs oral care standing at sink with verbal cues for L UE WB LB Dressing: SBA/Setup, doffs and dons socks with figure 4 position and extra time due to L hand ataxia Toilet Transfer: CGA for balance, verba cue provided for use of L grab bar Functional Mobility: sup -> sit EOB with modified independence for extra time, amb to/from bathroom without assistive device. Patient/caregiver educated on: Role of OT, ADL training with visual feedback, L UE WB, safety awareness, rehabilitation and recovery, and scapular stabilization (instructed to perform 3x/day x 10 reps for scapular depression, elevation, and retraction; verbal cues provided for L hand positioning and timing) Patient left sitting upright in bedside chair with call polk in reach. Instructed to notifiy nursingfor return to bed or to bathroom. Please, see full evaluation below for more detail. OT EVALUATION: 75 year old female Admit date: 05/08/2020 Date of onset: 05/08/2020 Admit Diagnosis: Stroke OT Diagnosis: Impaired BADL independence, Impaired IADL independence, Weakness, Impaired self-care mobility, Decreased UE Function Non-Dominant and impaired coordination PMH: Past Medical History: Diagnosis Date Asymptomatic bilateral carotid artery stenosis seen on imaging 12/2018 Bilateral renal artery stenosis 11/16/[address] in the Left renal artery Chronic combined systolic and diastolic congestive heart failure CKD (chronic kidney disease) stage 3, GFR 30-59 ml/min CVA (cerebral vascular accident) In 40s, reportedly related to thyroid surgery HTN (hypertension) Hypothyroidism surgically removed due to goiter Neuropathy PSH: Past Surgical History: Procedure Laterality Date SECTION COLONOSCOPY N/A 11/25/2017 Surgeon: Blair Caballero MD; Location: [facility] Location ESOPHAGOGASTRODUODENOSCOPY N/A 11/25/2017 Surgeon: Blair Caballero MD; Location: [facility] Location PHACOEMULSIFICATION OF CATARACT WITH INTRAOCULAR LENS IMPLANT Right 09/07/2018 Surgeon: Isiah Garcia MD; Location: [place] OR Location PHACOEMULSIFICATION OF CATARACT WITH INTRAOCULAR LENS IMPLANT Left 10/12/2018 Surgeon: Isiah Garcia MD; Location: [place] OR Location THYROIDECTOMY in her 40s. due to goiter TONSILLECTOMY PAIN: Before assessment: 01/22 After assessment: 01/22 Location: R shoulder (pre-existing) Pain Management: Repositioning Provided OCCUPATIONAL ROLES/HOME ENVIRONMENT: Home environment: Single story home and Lives with son who works from home. Bathroom access: Yes Bathroom setup: Shower Occupation(s): Retired Function prior to admission: Household ambulation, Community ambulation, Independent with BADLs and Independent with IADLs Equipment prior to admission: borrowed RW and w/c, 3 in 1 BSC, SPC, built in shower bench, crutch x 1 PERFORMANCE SKILLS/FACTORS: UE Muscle Tone: bilateral WNL UE ROM: bilateral AROM WFL UE Strength: ROSETTA UE 5/5 except R deltoid NT due to pre-existing pain Hand dominance: right Dexterity/Coordination: bilateral Fine motor skills Impaired , bilateral Gross motor skills Intact and left Finger to nose Impaired Endurance - Sitting: Good Standing: Good Sitting Balance - Static: Good Dynamic: Fair+ Standing: Balance - Static Fair+ Dynamic: Fair - Dizziness: No Skin Integrity: No breakdown noted Sensation: NT Oral Motor: WFL, slight facial droop L Communication: Able to verbalize needs Yes Other: N/A Vision: WFL Yes Other: reading glasses Hearing: good; no issues reported COGNITION: Orientation: NT Follows Commands: 1-step Yes Multi-step Yes Inconsistencies No Safety Awareness/Judgment: Fair PROBLEM LIST: Decreased independence with ADL, Decreased functional ROM, Decreased strength/endurance for functional activity, Impaired safety awareness and impaired coordination REHAB POTENTIAL/PROGNOSIS: good PATIENT/FAMILY GOALS: to return home TREATMENT/INTERVENTION PLAN: Functional motor treatment, Patient/Caregivier Education, Equipment recommendations, Daily living activities and Therapeutic exercises GOAL(S): By discharge, patient will increase independence in daily living skills as follows: 1 Patient will perform toilet transfer with SBA/setup. 2 Patient will don pullover shirt with SBA/Setup. 3 Patient will don pants with SBA/Setup using Rolling Walker as needed for stability. 4 Patient will complete grooming tasks with modified independence while standing at the sink. 5 Patient will complete toileting hygiene, including clothing management, with SBA/Setup. 6 Patient/caregiver will verbalize/demonstrate understanding/proficiency in the following home programs: Fall prevention PATIENT-FAMILY TEACHING Patient and Family member provided with preferred teaching of verbal information and demonstration on Role of OT, rehabilitation and recovery, ADL training with visual feedback, L UE WB, safety awareness, and scapular stabilization (instructed to perform 3x/day x 10 reps for scapular depression, elevation, and retraction; verbal cues provided for L hand positioning and timing). Shows readiness to learn. Verbal instruction teaching provided. Individual needs reinforcement of teaching. JOSE MARTIN Fox OTD, C/NDT Pager [phone] Total Timed Treatment Codes: 8 Min Total Treatment Time: 28 Min Patient Complexity Level High - An occupational therapy evaluation of high complexity was completed using the above tests and measures. The following information was obtained: An occupational profile and medical and therapy history, including review of medical and/or therapy records and extensive richi tional review of physical, cognitive, or psychosocial history related to current functional performance, Various standardized and non-standardized assessments were used to identify at least 5 or more performance deficits related to physical, cognitive, or psychosocial skills that result in activity limitations and/or participation restrictions and Clinical decision-making is of high analytic complexity, which includes an analysis of the patient profile, analysis of data from comprehensive assessment(s), and consideration of multiple treatment options. Patient present with comorbidities that affect occupational performance. Significant modification of tasks or assistance (e.g., physical or verbal) with assessment(s) is necessary to enable patient to complete evaluation component. Javon Kruse PT - 05/09/2020 8:36 AM CDTAssociated Order(s): CONSULT ADULT PHYSICAL THERAPY Patient agreeable to working with physical therapy. Patient met Semi reclined in bed. PHYSICAL THERAPY EVALUATION Consult received, chart reviewed and evaluation complete this date. Patient is referred to PT for evaluation and treatment. Patient is a 75 year old female who presents to hospital for Stroke. Patient is right handed with HTN, HFpEF (diastolic dysfunction, moderate concentric LV hypertrophy, normal EFin 2018), asymptomatic bilateral carotid artery stenosis, Bilateral renal artery stenosis s/p left renal artery stent (11/16/2017), CKD 3, Hypothyroidism, presents with left sided weakness and ataxia since 9am 05/08/20. Patient was LSN 11pm 05/07/20. She woke up with drooling on her left side and noted her left arm was difficult to control and "flopping", falling on her face. She was unable to stand up, however felt leg leg was "dragging" and weaker. Able to walk by holding onto dailey for support. As per patient, she fell at home 2x. Discharge Recommendations: Therapy Needs and Potential: Patient would benefit from continued physical therapy services to address: decline in bed mobility decline in transfers decline in gait and/or balance decreased strength decreased range of motion decreased endurance decreased coordination decreased motor planning Patient demonstrates good potential to improve and meet therapy goals with further physical therapy services. Patient appears motivated to improve their functional mobility and return to their previous levelof function. Patient demonstrates ability to tolerate atleast 30-60 minutes of physical therapy with active participation. Patient exhibits limited activity tolerance. Challenges to Home Transition: increased risk of falls decreased caregiver availability decreased safety awareness Equipment recommendations: rolling walker Rolling Walker or Rollator: I certify that Lovely Roblero is under my care and that I had a [id number] encounter with this patient on: 05/09/2020. The primary reason for the durable medical equipment: to be able to safely ambulate in her home. I am ordering and certify that, based on my findings, the following is medically necessary durable medical equipment: Rolling walker . Patient has a mobility limitation that significantly impairs his/her ability to participate in one or more mobility-related activities of daily living (MRADL) in the home and the patient is able to safely use the walker and the functional mobility deficit can be sufficiently resolved with use of a walker. Height: Ht Readings from Last 1 Encounters: 05/09/20 4' 11" (1.499 m) Weight: Wt Readings from Last 1 Encounters: 05/09/20 153 lb (69.4 kg) Duration of need: 99 months. Current Functional Status and/or Treatment:Functional mobility training Bed Mobility: Supine-sit: Minimal assist. Patient taking a longer time than normal to get to the side of the bed. Transfers: Sit to stand: Moderate assist using no device Stand to sit: Moderate assist using no device Stand pivot transfer: Moderate assist Static/dynamic standing balance: Fair- Ambulation: Assisted patient with ambulation as follows: 15 feet using no device and Moderate assist Patient presenting with Step-to gait pattern. Patient is needing assistance from therapist kofi A/ REGISTERED PUBLIC SURVEYOR X 1, showing staggered, slow, unsteady, left LE buckling during weight bearing/ acceptance, left foot occassional drag and fair- foot clearance. Therapeutic exercise: patient educated in Deep breathing, Energy conservation, Fall prevention, General strengthening, Gross motor coordination of LEs, Joint protection, Positioning, Relaxation/breathing techniques and Safety awareness., instructed patient in the following: ankle pumps, toe flexion/extension, quad sets,glut sets, heel slides, heel raises, Marching in place while seated., patient/caregiver instructed to perform HEP 3 times per day, 10 repetitions., patient/caregiver verbalizes understanding of instructions. After session, patient Up in chair. Call button provided. Fall precautions were reinforced. Currently, eating breakfast. PLAN OF CARE: At least 3 times per week, once or twice a day (while in hospital) per patient's tolerance and medical needs. See below for complete details. Admit Date: 05/08/2020 Hospital Diagnosis:Stroke PT Diagnosis: Difficulty walking, Weakness, Malaise/fatigue, Abnormality of gait and balance and Joint stiffness Weight Bearing Precaution: NA General Precautions: PPE used:Gloves and Surgical mask, General, Fall. Bracing/Cast present or required:N/A PMH: Past Medical History: Diagnosis Date Asymptomatic bilateral carotid artery stenosis seen on imaging 12/2018 Bilateral renal artery stenosis 11/16/[address] in the Left renal artery Chronic combined systolic and diastolic congestive heart failure CKD (chronic kidney disease) stage 3, GFR 30-59 ml/min CVA (cerebral vascular accident) In 40s, reportedly related to thyroid surgery HTN (hypertension) Hypothyroidism surgically removed due to goiter Neuropathy PSH: Past Surgical History: Procedure Laterality Date SECTION COLONOSCOPY N/A 11/25/2017 Surgeon: Blair Caballero MD; Location: [facility] Location ESOPHAGOGASTRODUODENOSCOPY N/A 11/25/2017 Surgeon: Blair Caballero MD; Location: [facility] ([facility] Location PHACOEMULSIFICATION OF CATARACT WITH INTRAOCULAR LENS IMPLANT Right 09/07/2018 Surgeon: Isiah Garcia MD; Location: [place] OR Location PHACOEMULSIFICATION OF CATARACT WITH INTRAOCULAR LENS IMPLANT Left 10/12/2018 Surgeon: Isiah Garcia MD; Location: [place] OR Location THYROIDECTOMY in her 40s. due to goiter TONSILLECTOMY Prior Living Situation: lives with their family and house, no steps, no stairs. DME: No device Prior level of Mobility: community ambulation, house hold ambulation Subjective: Patient was seen in the room, nurse Olivia and patient agreed to evaluation. Patient/Family Goals: Patient wants to go back home. Patient/Family verbalizes understanding of condition: Yes PAIN: -Pain Description: aching, dull and variable -Pain Location: right shoulder -Pain rating before treatment: 2, After treatment: 2 -Pain Management: Repositioning Provided COMMUNICATION Primary Language: Ukrainian Able to Verbalize needs: Yes Vision:glasses Hearing:good; no issues reported ORIENTATION/COGNITION: Oriented to: person, place, date/time and situation Awake: Yes Alert: Yes Dizzy: No Follows Commands: Yes 1-Step Yes Multi-Step Yes Inconsistent: No NEUROLOGICAL Light Touch: within functional limits bilateral LE, except left toes, described as dull. Heel to ortiz: within functional limits bilateral LE, except left LE, showing difficulty due to some weakness. Tone: intact BALANCE: Sitting: Static: Fair+ Dynamic: Fair+ Standing: Static: Fair Dynamic: Fair- RANGE OF MOTION: within functional limits bilateral LE. STRENGTH: 4-/5 (G-), bilateral LE except left LE which is grossly graded 3+/5 on hip flexors and knee extensors. ENDURANCE: Fair, Room air SKIN INTEGRITY: intact PROBLEM LIST: Decline in bed mobility, Decline in gait, Decline in transfers, Decreased strength, Decreased endurance, Decreased balance, Safety awareness deficits, Pain, Decreased Coordination and Decreased Motor Planning ASSESSMENT: Patient is a 75 year old female seen secondary to the above listed diagnosis. Patient would benefit from continued PT to address the above listed deficits to maximize independence and safety with functional mobility. Rehabilitation Potential: fair Goals: The following goals are to maximize independence and safety with functional mobility to eventually return to prior living situation and prior functional status. Upon discharge, patient and/or family will demonstrate the followin. Supine-sit: Independent 2. Sit to stand: Modified independent using Rolling Walker Stand to sit: Modified independent using Rolling Walker Stand pivot transfer: Modified independent 3. Modified independent with ambulation, Feet: 50 using least assistive device. 4. Demonstrate or verbalize understanding of home exercise program in order to continue with their rehab on their own. Treatment Plan: Gait training, Therapeutic exercise, Transfer training, Balance training, Bed mobility training, Safety education, patient/caregiver education, Pain management and Functional Motor Training PATIENT EDUCATION: Patient provided with preferred teaching of verbal information on role of PT, plan of care. Shows readiness to learn. Verbal instruction teaching provided. Total Time Tx Codes in Minutes: 10 min Total Treatment Time in Minutes: 38 min Javon Cristobal PT, DPT Pager: [phone] Mauri Chaney - 05/09/2020 8:26 AM CDTAssociated Order(s): CONSULT FOOD AND NUTRITION Medical Nutrition Therapy - Consult Note: Reason For Consultation: Physician consult: per stroke protocol Admission Chief Complaint: The patients chief complaint(s) documented on 05/09/[address] Greene were ataxia, left face andrea leg weakness. Lovely Roblero is a 75 year old female right handed with HTN, HFpEF (diastolic dysfunction, moderate concentric LV hypertrophy, normal EF in 2018), asymptomatic bilateral carotid artery stenosis, Bilateral renal artery stenosis s/p left renal artery stent (11/16/2017), CKD 3, Hypothyroidism, presents with left sided weakness and ataxia since 9am 05/08/20. Patient was LSN 11pm 05/07/20. She woke up with drooling on her left side and noted her left arm was difficult to control and "flopping", falling on her face. She was unable to stand up, however felt leg leg was "dragging" and weaker. Able to walk by holding onto dailey for support. Reported she noted a facial droop in the bathroom and had some slurred speech in the morning as well. She stayed home with all her symptoms lasting until evening, when she went to the ER ~8pm. Reported she had to lean to the right and grab objects not to fall over to the left side, denied any fall so far. Denied any diplopia, headache, nausea,neck pain, vertigo. At [facility], had only left sided ataxia, no weakness or slurred speech. Per H&P. Present on Admission: None PMH/PSH: Past Medical History: Diagnosis Date Asymptomatic bilateral carotid artery stenosis seen on imaging 12/2018 Bilateral renal artery stenosis 11/16/[address] in the Left renal artery Chronic combined systolic and diastolic congestive heart failure CKD (chronic kidney disease) stage 3, GFR 30-59 ml/min CVA (cerebral vascular accident) In 40s, reportedly related to thyroid surgery HTN (hypertension) Hypothyroidism surgically removed due to goiter Neuropathy Past Surgical History: Procedure Laterality Date SECTION COLONOSCOPY N/A 11/25/2017 Surgeon: Blair Caballero MD; Location: [facility] Location ESOPHAGOGASTRODUODENOSCOPY N/A 11/25/2017 Surgeon: Blair Caballero MD; Location: [facility] Location PHACOEMULSIFICATION OF CATARACT WITH INTRAOCULAR LENS IMPLANT Right 09/07/2018 Surgeon: Isiah Garcia MD; Location: [place] OR Location PHACOEMULSIFICATION OF CATARACT WITH INTRAOCULAR LENS IMPLANT Left 10/12/2018 Surgeon: Isiah Garcia MD; Location: [place] OR Location THYROIDECTOMY in her 40s. due to goiter TONSILLECTOMY GI and Nutrition Related Findings: Symptoms: Nausea(-), Vomiting(-), Constipation(-), Diarrhea(-), Abdominal Pain(-) Difficulty: Chewing(-), Swallowing(-) GI tract alteration: N/A Alternative means of nutrition: N/A General: N/A Medications: I have reviewed the medications currently ordered in the EMR located under the medications andMAR tabs. Current medications include: Current Facility-Administered Medications: albuterol (PROVENTIL) 2.5 mg /3 mL (0.083 %) nebulizer solution 2.5 mg, 2.5 mg, Inhalation, Q4HPRN, Pedro Greene MD aspirin chewable tablet 81 mg, 81 mg, Oral, DAILY, Pedro Greene MD, 81 mg at 05/09/20 0801 atorvastatin (LIPITOR) tablet 80 mg, 80 mg, Oral, QHS, Jesus Merino MBBS clopidogreL (PLAVIX) tablet 75 mg, 75 mg, Oral, DAILY, Jesus Merino MBBS heparin (porcine) injection 5,000 Units, 5,000 Units, Subcutaneous, Q12H, Pedro Greene MD, 5,000 Units at 05/09/20 0801 labetaloL (NORMODYNE) injection 20 mg, 20 mg, Slow IV Push, Q30MIN PRN, Pedro Greene MD levothyroxine (SYNTHROID) tablet 125 mcg, 125 mcg, Oral, QAM-0600, Pedro Greene MD, 125 mcgat 05/09/20 0554 NaCl 0.9% (NS) injection 5 mL, 5 mL, Slow IV Push, PRN - SEE INSTRUCTIONS, Oly Mcclelland MD Lab and Medical Test Results: 05/08/2020 20:50 WBC x10^3 7.67 RBC x10^6 4.89 HGB 14.7 HCT 45.2 MCV 92.4 05/08/2020 20:50 05/09/2020 04:54 NA 138 K 4.6 CL 100 CO2 TOTAL 28 AGAP 10 BUN 21 GLUCOSE 133 (H) CREATININE 1.16 (H) eGFR CALCULATION (non ) 45.7 CHOL 421 (H) TRIG 264 (H) HDL CHOL 43 (L) LDL CHOL 325 (H) CALCIUM 10.3 Nutrition Assessment: Age: [age] year old Sex: female Ht: 1.499m / 4'11" Ht Readings from Last 3 Encounters: 05/09/20 1.499 m (4' 11") 08/24/19 1.549 m (5' 1") 05/19/19 1.499 m (4' 11") Current Wt: 69.4 kg/ 153 lb BMI: Body mass index is 30.9 kg/m. (Overweight) IBW for BMI of 24.9: 55.95 kg +/- 5.59 kg %IBW: 124% Weight History: Wt Readings from Last 10 Encounters: 05/09/20 69.4 kg (153 lb) 10/11/19 71.4 kg (157 lb 4.8 oz) 08/24/19 71.7 kg (158 lb) 08/11/19 71.7 kg (158 lb) 07/02/19 70.9 kg (156 lb 6.4 oz) 05/19/19 71.7 kg (158 lb) 05/11/19 71.7 kg (158 lb 1.6 oz) 02/27/19 71.7 kg (158 lb) 12/27/18 70.3 kg (155 lb) 11/22/18 70.3 kg (155 lb) Inflammatory Markers: Hyperglycemia Current Dietary Order(s): Cardiac (2 gm Sodium, Low Fat, Low Cholesterol) Diet; Texture: Regular EMR documented food allergies/intolerance/cultural preferences: N/A Nutrition & Diet History: Ms. Roblero denies any N/V/C/D and chewing or swallowing difficulties. Patient reports a good appetiteand a UBW of 150 - 155 lb. Patient does not follow a diet at home and does not take any dietary supplements. Patient reports receiving a heart healthy diet education from her primary physician in the past but, did not like the recommendations. Patient reports a usual dietary intake of a honey bun or cookie with coffee/tea/OJ for breakfast; occasionally skips lunch however, if she does eat it's a turkey sandwich with tomato, cheese, and honey mustard; hamburger steak and gravy, mashed potatoes, and vegetables for dinner. Occasionally snacks on cookies and enjoys fried food. Patient stated only consum ing breakfast for her medication. Patient was made aware of her recent abnormal blood lipid panel results and the impact that diet has on these values. Reviewed with and gave patient handouts on stroke nutrition therapy and CKD stages 1 - 4 nutrition guidelines. Encouraged the patient to make 1 feasible change to her diet and maintain it. Then, introduce another feasible change to promote long-term success. Patient appeared reluctant to make any changes to her diet. Estimated Daily Nutritional Needs: Calories: 1320 - 1430 (MSJ x 1.2 - 1.3) kcal/day = 19 - 21 kcal/kg current wt = 24 - 26 kcal/kg IBW Protein: 13 - 17% of kcal need/day = 42 - 56 g/day = 0.60 - 0.80 g/kg current wt = 0.75 - 1 g/kg IBW Fluid: ? 2000 mL/day or per MD; adjust per acute needs (heart failure) Nutrition Diagnosis: Altered nutrition related laboratory values (Chol., trig, HDL, LDL) related to cardiac dysfunction as evidenced by cholesterol (421), triglycerides (264), HDL (42), and LDL (325). Nutrition Plan of Care: Intervention(s): 1. Continue Cardiac diet. 2. Reviewed with and gave patient handouts on stroke nutrition therapy and CKD stages 1 - 4 nutrition guidelines. 3. Monitor daily PO intake, labs, and weight. Goal(s): 1. The patient will eat at least 75% of all provided meals without any intolerances. 2. Weight maintenance. D/C Plannin. Recommend Cardiac diet Eat a balanced diet with whole grains, fruits and vegetables, and lean protein sources Choose heart-healthy unsaturated fats. Limit saturated fats, trans fats, and cholesterol intake. Eatmore plant-based or vegetarian meals using beans and soy foods for protein Eat whole, unprocessed foods to limit the amount of sodium (salt) and fluids to 2 L per day as needed to control HF symptoms. Limit refined carbohydrates especially sugar, sweets and sugar-sweetened beverages Nutrition Monitoring and Evaluation: A registered dietitian will f/u as indicated to report nutrition related information and to revise the recommended nutrition intervention(s); please call with questions or concerns, thank-you. Mauri Jones (Alex) Brim Greaser Operator RD Office: [phone] signed by Shefali Vasquez RD at 05/09/2020 4:59 PM CDT Associated attestation - Shefali Vasquez RD - 05/09/2020 4:59 PM CDTI agree with the assessment and recommendations for this patient by Mauri Jones (Alex) Brim Greaser Operator, on 05/09/2020. Shefali Vasquez MS, RDN, LD Clinical Dietitian Office: [phone] in this encounter ED Notes Kim Fink RN - 05/08/2020 8:32 PM CDTPatient brought in by her daughter. Per patient's daughter patient called her this morning because patient was having left-sided weakness onset at 9 this morning. Per patient's daughter was drooling earlier, patient managing secretions during triage. PMHx: Stroke (1989) ly Mcclelland MD - 05/08/2020 8:27 PM CDT EMERGENCY DEPARTMENT ENCOUNTER [facility] Patient Name: Lovely Roblero Date of : 1945 75 year old Exam [facility] Primary Care Physician: Hui Bernal [facility] Patient Escorted by: Family [5] Mode of Arrival: Personal means [1] EMS Treatment Prior to ED Arrival: ASA 325 mg HUMAN FACTORS ADVISOR LEAD treatment: None Chief Complaint Chief Complaint Patient presents with Weakness Left sided HPI The patient is a 75-year-old female with a history of CK D, hypertension, bilateral renal artery stenosis, and CVA in 1989 who presents for left-sided weakness. She states in 1989 she had a CVA with left-sided symptoms that resolved. She states are not o'clock this morning she developed left facial tin gling, left upper extremity and left lower extremity weakness. She states she really only expresses a left looks to me weakness when she ambulates. She drags her feet. She also also admits to slurred speech. The patient also has left upper extremity weakness. The symptoms have persisted and she presents for evaluation. History provided by: Patient Weakness Location: Left facle LUE and LLE Severity: Moderate Onset quality: Gradual Duration: 11.5 hours. Timing: Constant Progression: Worsening Chronicity: New Context: See narrative Relieved by: Nothing Worsened by: Nothing Associated symptoms: no abdominal pain, no chest pain, no cough, no fatigue, no fever, no headaches,no nausea, no shortness of breath, no vomiting and no wheezing Past Medical History / Immunizations Past Medical History: Diagnosis Date Asymptomatic bilateral carotid artery stenosis seen on imaging 12/2018 Bilateral renal artery stenosis 11/16/[address] in the Left renal artery Chronic combined systolic and diastolic congestive heart failure CKD (chronic kidney disease) stage 3, GFR 30-59 ml/min CVA (cerebral vascular accident) In 40s, reportedly related to thyroid surgery HTN (hypertension) Hypothyroidism surgically removed due to goiter Neuropathy Tetanus received in last 5 years: Yes Childhood immunizations: Up-to-date Past Surgical History Past Surgical History: Procedure Laterality Date SECTION COLONOSCOPY N/A 11/25/2017 Surgeon: Blair Caballero MD; Location: [facility] ([facility] Location ESOPHAGOGASTRODUODENOSCOPY N/A 11/25/2017 Surgeon: Blair Caballero MD; Location: [facility] () OR Location PHACOEMULSIFICATION OF CATARACT WITH INTRAOCULAR LENS IMPLANT Right 09/07/2018 Surgeon: Isiah Garcia MD; Location: [place] OR Location PHACOEMULSIFICATION OF CATARACT WITH INTRAOCULAR LENS IMPLANT Left 10/12/2018 Surgeon: Isiah Garcia MD; Location: [place] OR Location THYROIDECTOMY in her 40s. due to goiter TONSILLECTOMY Allergies Allergies Allergen Reactions Amoxicillin Nausea and/or Vomiting Social History Tobacco Use Never smoked or used smokeless tobacco. Alcohol Use No. Drug Use No. Sexual Activity Not currently sexually active. Review of Systems Review of Systems Constitutional: Negative. Negative for chills, fatigue, fever and unexpected weight change. HENT: Negative. Eyes: Negative. Negative for discharge and itching. Respiratory: Negative. Negative for cough, chest tightness, shortness of breath and wheezing. Cardiovascular: Negative. Negative for chest pain and palpitations. Gastrointestinal: Negative. Negative for abdominal distention, abdominal pain, nausea and vomiting. Genitourinary: Negative. Negative for dysuria, urgency, frequency and flank pain. Musculoskeletal: Negative. Skin: Negative. Negative for color change, pallor and wound. Neurological: Positive for weakness. Negative for dizziness, syncope, light- headedness and headaches. Psychiatric/Behavioral: Negative. Negative for agitation and behavioral problems. All other systems reviewed and are negative. Endocrine: Endocrine negative Physical Exam BP (!) 187/74 | Pulse 54 | Temp 36 C (96.8 F) (Oral) | Resp 15 | Ht 1.499 m (4' 11") | Wt 68.9 kg (152 lb) | SpO2 95% | BMI 30.70 kg/m Physical Exam Vitals signs reviewed. Constitutional: Appearance: She is well-developed. HENT: Head: Normocephalic and atraumatic. Nose: Nose normal. Eyes: Conjunctiva/sclera: Conjunctivae normal. Neck: Musculoskeletal: Normal range of motion and neck supple. Trachea: No tracheal deviation. Cardiovascular: Rate and Rhythm: Normal rate and regular rhythm. Heart sounds: Normal heart sounds. No murmur. No friction rub. Pulmonary: Effort: Pulmonary effort is normal. No respiratory distress. Breath sounds: Normal breath sounds. No stridor. No wheezing or rales. Abdominal: General: Bowel sounds are normal. There is no distension. Palpations: Abdomen is soft. Tenderness: There is no abdominal tenderness. There is no guarding or rebound. Musculoskeletal: Normal range of motion. Skin: General: Skin is warm and dry. Neurological: Mental Status: She is alert and oriented to person, place, and time. Cranial Nerves: No cranial nerve deficit. Sensory: No sensory deficit. Comments: Please see NIH scoring Psychiatric: Behavior: Behavior normal. Thought Content: Thought content normal. Judgment: Judgment normal. NIHSS: Last known normal: 0900 1. a) LOC - 0, (0=Alert, 1=arousable w/ minor stim/appears sleepy, 2=req repeated stim/pain, 3=unresponsive, only reflex effects) b) LOC Questions - 0, (month & age - must be on 1st try & 100% correct) (0=answers correctly, verbally or in writing, 1=1 question correct/intubated/mouth trauma/language barrier/very slurred speech, 2=none correct/aphasic) c) LOC Commands - 0, (0=can open & close eyes on request & jewelry sorter/release good hand, 1=1 task correct, 2=neither correct) (strength doesn't matter, testing 2 step command) 2. Best gaze - 0, (0=normal, 1=partial palsy/moves longterm, 2=forced deviation but slight mvmt) (if eyes deviated & don't move at all pt is having Sz) 3. Visual - 0, (0=no vision loss, 1=partial hemianopia, 2=complete hemianopia, 3=bilateral hemianopia, "3Blind" if blind, incl cortical blindness) (tested at arm's length) 4. Facial palsy - 0, (0=normal, 1=minor paralysis-flat nasolabial fold, asym smile, 2=partial paralysis ie only lower face, 3=complete paralysis of 1 or both sides) 5. Motor Arm Left - 1, Right - 0, (0=no drift, 1=drift <10 sec, 2=some effort against gravity, 3=no effort against gravity, 4=no mvmt, UN=amputation/joint fusion) 6. Motor Leg Left - 0, Right - 0 7. Limb Ataxia - 1, (caspnw-ee-fcaf, wovt-hv-alrm: 0=no ataxia, 1=in 1 limb, 2=in 2 limbs, UN=amputation/joint fusion) 8. Sensory - 0, (0=normal/obtunded & withdraws to pain, 1=mild-mod loss, 2=can't tell being touched/coma) 9. Best Language - 0, (0=no aphasia, 1=mild-mod ie loss of fluency, 2=severe ie limited range of info that can be exchanged, 3=mute or global aphasia ie no usable speech or auditory comprehension) (still count if it is old weakness but write "old") 10. Dysarthria - 0, (0=normal/intubated, 1=mild-mod ie slurs but can understand some, 2=severe ie unintelligible/mute/slurring out of proportion to dysphasia) 11. Extinction - 0, (0=none, 1=visual/tactile/auditory/spatial/personal inattention, 2=profound papi-inattention or extinction to >1 modality) TOTAL=2 Was tPA used No If not, why symptoms rapidly resolving Labs Recent Results (from the past 24 hour(s)) Prothrombin Time / INR - Code Stroke Collection Time: 05/08/20 8:50 PM Result Value Ref Range PROTIME PATIENT 12.0 12.0 - 14.7 Seconds INR 0.9 aPTT Collection Time: 05/08/20 8:50 PM Result Value Ref Range APTT Patient 30 23 - 38 Seconds CBC without Diff - Code Stroke Collection Time: 05/08/20 8:50 PM Result Value Ref Range WBC 7.67 4.30 - 11.10 10*3/L RBC 4.89 3.93 - 5.25 10*6/L HGB 14.7 11.6 - 15.0 g/dL HCT 45.2 35.7 - 45.2 % MCH 30.1 25.9 - 32.8 pg MCV 92.4 80.6 - 95.5 fL MCHC 32.5 31.6 - 35.1 g/dL PLT 229 166 - 358 10*3/L MPV 11.7 9.5 - 12.9 fL RDW-CV 14.4 12.0 - 15.5 % RDW-SD 48.3 39.0 - 49.9 fL NRBC x10^3 <0.01 10*3/L NRBC/100 WBC 0.0 0.0 - 10.0 /100 WBCs IPF % Troponin I - Code Stroke Collection Time: 05/08/20 8:50 PM Result Value Ref Range TROPONIN I 0.003 <=0.034 ng/mL Basic Metabolic Panel (NA, K, CL, CO2, Glucose, BUN, Creatinine, CA) - Code Stroke Collection Time: 05/08/20 8:50 PM Result Value Ref Range NA 138 135 - 145 mmol/L K 4.6 3.5 - 5.0 mmol/L CL 100 98 - 108 mmol/L CO2 TOTAL 28 23 - 31 mmol/L AGAP 10 2 - 16 BUN 21 7 - 23 mg/dL GLUCOSE 133 (H) 70 - 110 mg/dL CREATININE 1.16 (H) 0.50 - 1.04 mg/dL CALCIUM 10.3 8.6 - 10.6 mg/dL eGFR Calculation (Non-) 45.7 mL/min/1.73m2 eGFR Calculation () 55.3 mL/min/1.73m2 COVID-19 (ID NOW RAPID TESTING) Collection Time: 05/08/20 8:50 PM Specimen: NASOPHARYNGEAL SWAB Result Value Ref Range SARS-CoV-2 Rapid ID NOW Not Detected Not Detected Imaging Hospital Encounter on 05/08/20 CT STROKE ANGIOGRAM NECK Narrative Ordering physician: OLY MCCLELLAND Indication: Suspected stroke Comparison: CT of the head without contrast dated 05/08/2020 Technique: CTA of the head and neck was performed following the administration of intravenous contrast material. Three-dimensional reformats were generated following completion of the exam. Degree of stenosis was estimated utilizing NASCET criteria. CT scan was performed according to ALARA (as low as reasonably achievable) policy. Findings: There is diffuse irregularity of the transverse thoracic aorta. No hemodynamically significant stenosis is appreciated. The origin of the arch vessels. The right vertebral artery is mildly dominant. There is no focal caliber change in either vertebral artery to suggest vertebral dissection or occlusion. No hemodynamically significant stenosis is appreciated in either common or internal carotid artery. CTA of the [place] demonstrates no vessel occlusion, aneurysm or high-grade stenosis. The dural venous sinuses are patent. Impression Impression: No evidence for vertebral artery dissection or occlusion. No hemodynamically significant stenosis in either common or internal carotid artery. Unremarkable CTA of the [place] without vessel occlusion, high-grade stenosis or aneurysm identified. RL: 460 AFC: [id number] STROKE ANGIOGRAM HEAD Narrative Ordering physician: OLY MCCLELLAND Indication: Suspected stroke Comparison: CT of the head without contrast dated 05/08/2020 Technique: CTA of the head and neck was performed following the administration of intravenous contrast material. Three-dimensional reformats were generated following completion of the exam. Degree of stenosis was estimated utilizing NASCET criteria. CT scan was performed according to ALARA (as low as reasonably achievable) policy. Findings: There is diffuse irregularity of the transverse thoracic aorta. No hemodynamically significant stenosis is appreciated. The origin of the arch vessels. The right vertebral artery is mildly dominant. There is no focal caliber change in either vertebral artery to suggest vertebral dissection or occlusion. No hemodynamically significant stenosis is appreciated in either common or internal carotid artery. CTA of the [place] demonstrates no vessel occlusion, aneurysm or high-grade stenosis. The dural venous sinuses are patent. Impression Impression: No evidence for vertebral artery dissection or occlusion. No hemodynamically significant stenosis in either common or internal carotid artery. Unremarkable CTA of the [place] without vessel occlusion, high-grade stenosis or aneurysm identified. RL: 460 AFC: [id number] STROKE HEAD WO CONTRAST Narrative Ordering Physician: OLY MCCLELLAND HISTORY: Stroke. COMPARISON: None TECHNIQUE: CT of the brain without IV contrast. This study was performed according to ALARA principle for radiation dose reduction. FINDINGS: There is no acute intracranial hemorrhage. There is no shift of normally midline structures. There is no hydrocephalus. Ann-white matter differentiation is preserved. The visualized paranasal sinuses and mastoid air cells are clear Soft tissues are normal. Osseous structures are normal. Paranasal sinuses and mastoid air cells remain well aerated. Impression No CT evidence of acute intracranial abnormalities. Please note that MRI is more sensitive in the setting of hyperacute ischemia. RL: 135 Orders and Treatments Orders Placed This Encounter Procedures Critical Care CT STROKE HEAD WO CONTRAST CT STROKE ANGIOGRAM HEAD CT STROKE ANGIOGRAM NECK Prothrombin Time / INR - Code Stroke aPTT CBC without Diff - Code Stroke Troponin I - Code Stroke Basic Metabolic Panel (NA, K, CL, CO2, Glucose, BUN, Creatinine, CA) - Code Stroke COVID-19 (ID NOW RAPID TESTING) O2 Nasal Cannula Orders Placed This Encounter Medications NaCl 0.9% (NS) injection 5 mL iohexol (OMNIPAQUE 350 BULK-150 mL) injection 120 mL Procedures EKG Time 2041 Rate 57 [place] normal Intervals normal No acute ischemia Sinus Bradycardia Notes & MDM Patient was evaluated for an emergency medical condition related to Weakness (Left sided) . Differential diagnoses considered by presenting complaints but not limited to: CVA Assessment: 1012 Patient states her symptoms are resolving. LLE ataxia improved. Left upper extremity strength has improved. History, physical exam findings, results of visit, differential diagnosis, medication regimens and plan of future care have been considered. Additional MDM may be found in the ED course. Differential diagnosis considered and final disposition made based on information gathered during evaluation and may not be completely ruled out or specifically listed. Vital signs were rechecked before final disposition. Diagnosis ICD-10-CM ICD-9-CM 1. Left-sided weakness R53.1 728.87 2. TIA (transient ischemic attack) G45.9 435.9 Disposition & Follow Up ED Disposition ED Disposition Condition Comment Transfer - [facility] to IP/Obs Patient's Medications START taking these medications No medications on file CONTINUE taking these medications which have NOT CHANGED ALBUTEROL 2.5 MG /3 ML (0.083 %) NEBULIZER SOLUTION Inhale 3 mL every 4 (four) hours as needed for Wheezing or Shortness of Breath. ASPIRIN 81 MG CHEWABLE TABLET Take 1 tablet by mouth daily. CARVEDILOL 25 MG TABLET Take 1 tablet by mouth 2 (two) times daily with meals. CIPROFLOXACIN HCL (CIPRO) 500 MG TABLET Take 1 tablet by mouth every 12 (twelve) hours. DICLOFENAC SODIUM (VOLTAREN) 1 % GEL Take 2-4 grams three times a day as needed for pain HYDROCODONE-ACETAMINOPHEN ORAL Take by mouth. LEVOTHYROXINE 125 MCG TABLET TAKE ONE TABLET BY MOUTH EVERY MORNING LOSARTAN 50 MG TABLET Take 1.5 tablets by mouth every day at 1200 (noon). METRONIDAZOLE (FLAGYL) 500 MG TABLET Take 1 tablet by mouth every 8 (eight) hours. START taking Modified Medications as Prescribed No medications on file STOP taking these medications No medications on file Oly Mcclelland Jr., MD Clinical [place] [employer] [facility] Emergency Department documented in this encounter Miscellaneous Notes Care Plan - Jennifer Cutler RN - 05/09/2020 2:14 AM CDT Problem: Discharge Planning Goal: Able to perform ADL Outcome: Progressing as expected Goal: Absence of venous thromboembolism Outcome: Progressing as expected Goal: Knowledge of medication management Outcome: Progressing as expected Goal: Knowledge of need for follow-up care Outcome: Progressing as expected Goal: Knowledge of personal stroke risk factors Outcome: Progressing as expected Goal: Knowledge of stroke warning signs Outcome: Progressing as expected Goal: Facility placement (SNF, LTAC, LTC) appropriate for patient's abilities. Outcome: Progressing as expected Problem: Falls, Risk of Goal: Absence of falls Outcome: Progressing as expected Problem: Mobility - Impaired Goal: Able to achieve maximum mobility level Outcome: Progressing as expected Goal: Able to use ambulatory assistive device appropriately Outcome: Progressing as expected Problem: Pain Goal: Control of pain at or below patient's documented comfort goal Outcome: Progressing as expected Goal: Reduction in pain sensation Outcome: Progressing as expected D Nurse Note - Magdy Hackett RN - 05/08/2020 10:59 PM CDTPatient report called to Jennifer FLORES at [facility]. D Nurse Note - Magdy Hackett RN - 05/08/2020 10:53 PM CDTPatient care transferred over to [facility]. Patient stable for transport. D Nurse Note - Magdy Hackett RN - 05/08/2020 10:50 PM CDT Patient strength has improved to left arm and left lower leg. Patient was able to use bedside commode with assistance. 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 D Nurse Note - Magdy Hackett RN - 05/08/2020 8:39 PM CDTStroke Alert initiated at 2037. Weakness started at 9 am this morning. MD and ED staff at bedside. documented in this encounter Plan of Treatment Date Type Specialty Care Team Description 05/16/2020 Office Visit Cardiology Andrew Frey MD [address] [place] [address] [place] [address] [phone] Health Maintenance Due Date Last Done Comments DTaP,Tdap,and Td Vaccines (1 - Tdap) 1965 08/11/2019 Breast Cancer Screening (MAMMOGRAM) 1986 COLON CANCER SCREENING FIT DNA EVERY 1996 3 YEARS COLON CANCER SCREENING SIGMOIDOSCOPY 1996 EVERY 5 YEARS Zoster Recombinant Vaccine (SHINGRIX) 1996 (1 of 2) COLON CANCER SCREENING ANNUAL 06/02/2006 06/02/2005 FIT/FOBT Medicare Wellness Visit 02/28/2020 02/27/2019 INFLUENZA VACCINE (#1) 2020 10/11/2019, 10/26/2018, 07/16/2017 Depression Screening 08/24/2020 08/24/2019 COLONOSCOPY 11/26/2027 11/25/2017 Colorectal Cancer Screening 11/26/2027 Osteoporosis Screening 11/07/2028 11/07/2018 HEPATITIS C (HCV) SCREEN Completed 11/10/2016 PNEUMOCOCCAL VACCINES 65+ Completed 07/16/2017, 10/27/2016 documented as of this encounter Implants Implanted Type Area Inventory Control Associate Device Shelf Model / Serial Identifier Expiration / Lot Date Lens, Salty #[id number] 24.0d - [id number] LENS Right: Salty 03/14/2023 SN60WF 24.0D / Implanted: Qty: 1 on 09/07/2018 by Isiah Castelan MD at [facility] Eye [id number] / 0 Lens, Salty #[id number] - [id number] LENS Salty 05/14/2019 [id number] / Implanted: Qty: 1 on 10/12/2018 by Isiah Castelan MD at [facility] [id number] / 0 documented as of this encounter Procedures Procedure Name Priority Date/Time Associated Comments Diagnosis VERIFYNOW ASPIRIN TEST Routine 05/09/2020 2:00 R esults for this PM CDT procedure are i n the results section. FREE T4 Routine 05/09/2020 2:00 Results for this PM CDT procedure are i n the results section. ECHO ROUTINE W/DOPPLER Routine 05/09/2020 9:33 Left-sided COLOR AM CDT weakness Ataxia MR BRAIN WO CONTRAST STAT 05/09/2020 6:07 Left-sided Res ults for this AM CDT weakness procedure are i n the results section. LIPID PANEL Routine 05/09/2020 4:54 Results for this (46603)(TOTAL AM CDT procedure are in CHOLESTEROL, the results TRIGLYCERIDES, HDL) section. THYROID STIMULATING Add-on 05/09/2020 4:54 Resu lts for this HORMONE AM CDT procedure are i n the results section. CRITICAL CARE Routine 05/08/2020 10:25 Results fo r this PM CDT procedure are i n the results section. CT STROKE ANGIOGRAM STAT 05/08/2020 9:21 Left-sided Resu lts for this NECK PM CDT weakness procedure are i n the results section. CT STROKE ANGIOGRAM STAT 05/08/2020 9:21 Left-sided Resu lts for this HEAD PM CDT weakness procedure are i n the results section. HB CREATININE BLOOD Routine 05/08/2020 8:53 Resu lts for this PM CDT procedure are i n the results section. CT STROKE HEAD WO STAT 05/08/2020 8:50 Left-sided Result s for this CONTRAST PM CDT weakness procedure are i n the results section. COVID-19 (ID NOW RAPID STAT 05/08/2020 8:50 Left-sided R esults for this TESTING) PM CDT weakness procedure are i n the results section. ACTIVATED PARTIAL STAT 05/08/2020 8:50 Left-sided Result s for this THRMPLAS OSVALDO PM CDT weakness procedure are i n the results section. PROTHROMBIN TIME / INR STAT 05/08/2020 8:50 Left-sided R esults for this PM CDT weakness procedure are i n the results section. GLYCOSYLATED HEMOGLOBIN Add-on 05/08/2020 8:50 Results for this (A1C) PM CDT procedure are i n the results section. CBC WITHOUT DIFF STAT 05/08/2020 8:50 Left-sided Results for this PM CDT weakness procedure are i n the results section. BASIC METABOLIC PANEL STAT 05/08/2020 8:50 Left-sided Re sults for this (NA, K, CL, CO2, PM CDT weakness procedure a re in GLUCOSE, BUN, the results CREATININE, CA) section. TROPONIN I STAT 05/08/2020 8:50 Left-sided Results for this PM CDT weakness procedure are i n the results section. NOTICE OF PRIVACY Routine 05/08/2020 8:33 PRACTICES PM CDT CONSENT/REFUSAL FOR Routine 05/08/2020 8:29 DIAGNOSIS AND TREATMENT PM CDT AGREEMENTS Routine 05/08/2020 12:01 AUTHORIZATIONS AND AM CDT IRREVOCABLE ASSIGNMENTS (FORM 2001) documented in this encounter Results FREE T4 (05/09/2020 2:00 PM CDT) Pathologist Sig nature FREE T4 1.10 0.78 - 2.20 ng/dL: [facility] Specimen Blood - ARM, LEFT Performing Organization Address City/State/Zipcode Phone Number [facility] CLIA: [id number] [place], [place] [id number] [address] [place] [address] VERIFYNOW ASPIRIN TEST (05/09/2020 2:00 PM CDT) Pathologist Sig nature VerifyNow Aspirin 528 See Comment ARU [facility] SERVICES Specimen Blood - ARM, LEFT Narrative Performed At < 550 ARU - Evidence of platelet dysfunc tion due to aspirin [facility] >= 550 ARU - No evidence of aspirin-induced platelet dysfunction The performance of VerifyNow Aspirin test on patients with acquired non-drug induced platelet abnormalities is no t known. Patients who have been treated with Glycoprotei n IIb/IIIa inhibitor drugs should not be tested until pl atelet function has recovered. The recovery period after drug administration is discontinued is approximately 14 day s for abciximab (ReoPro) and up to 48 hours for eptifibatide (Integrilin) and tirofiban (Aggrastat). The time to re covery of platelet functions varies among individuals and is longer for patients with renal dysfunction. Patient with low platelet counts may not give consistent results. Resul ts should be interpreted in conjunction with other labora tory and clinical data available to the clini alvino. 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 Narrative Performed At EXAMINATION: MR BRAIN WO CONTRAST PACS/VR/DOSE HISTORY: Stroke suspected, ataxia COMPARISON: CT head without contrast TECHNIQUE: Multiplanar and multisequence MRI imaging of the brain was obtained without contrast. FINDINGS: The ventricles and cerebral sulci are normal in calibe r and configuration. No midline shift, hydrocephalus or patho logical extra-axial fluid collection is present. The basal cistern s are unremarkable. No intracranial hemorrhage or mass. A subcentimeter focus of T2/FLAIR hyperi ntensity with corresponding diffusion restriction on DWI and ADC seq uences is noted within the right posterior limb internal capsule. Scatter ed white matter T2/FLAIR hyperintensities are nonspecific and lik mitesh represent sequela of microvascular ischemic disease. No abnor mal gradient blooming. The T2 flow voids for the major intracranial vessels a re unremarkable. No abnormal fluid signal is present in the mastoid air ce lls or paranasal air sinuses. The calvarium is normal. The orbits are unremarkable. Procedure Note [facility], Radiant Results Inft User - 2019 9:39 AM CDT EXAMINATION: MR BRAIN WO CONTRAST HISTORY: Stroke suspected, ataxia COMPARISON: CT head without contrast TECHNIQUE: Multiplanar and multisequence MRI imaging of the brain was obtained without contrast. FINDINGS: The ventricles and cerebral sulci are no rmal in caliber and configuration. No midline shift, hydrocephalus or patho logical extra-axial fluid collection is present. The basal cistern s are unremarkable. No intracranial hemorrhage or mass. A subcentimeter focus of T2/FLAIR hyperi ntensity with corresponding diffusion restriction on DWI and ADC seq uences is noted within the right posterior limb internal capsule. Scatter ed white matter T2/FLAIR hyperintensities are nonspecific and lik mitesh represent sequela of microvascular ischemic disease. No abnor mal gradient blooming. The T2 flow voids for the major intracra nial vessels are unremarkable. No abnormal fluid signal is present in the mastoid air cells or paranasal air sinuses. The calvarium is normal. The orbits are unremarkable. 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 Performing Organization Address City/State/Zipcode Phone Number PACS/VR/DOSE THYROID STIMULATING HORMONE (05/09/2020 4:54 AM CDT) Pathologist Sig nature TSH 14.20 (H)Comment: 0.45 - 4.70 [facility] Biotin has been mIU/L SERVICES reported to cause a negative bias, interpret results relative to patient's use of biotin. Specimen Blood - ARM, RIGHT Performing Organization Address [facility] Phone Number [facility] CLIA: [id number] [place] [address] [place] [address] FASTING LIPID PANEL (06272)(TOTAL CHOLESTEROL, TRIGLYCERIDES, HDL) (05/09/2020 4:54 AM CDT) Pathologist Sig nature CHOL 421 (H) 120 - 200 mg/dL [facility] HDL 43 (L) >50 mg/dL [facility] HDLC RATIO 9.8 (H) <=4.5 [facility] TRIG 264 (H) 30 - 170 mg/dL [facility] LDL CHOL 325 (H) <=160 mg/dL [facility] VLDL 53 5 - 60 mg/dL [facility] Specimen Blood - ARM, RIGHT Performing Organization Address [facility] Phone Number [facility] CLIA: [id number] [place] [address] [place] [address] Critical Care (05/08/2020 10:25 PM CDT) Narrative Performed At Oly Mcclelland MD 05/08/2020 10:2 5 PM Critical Care Performed by: Oly Mcclelland MD Authorized by: Oly Mcclelland MD Critical care provider statement: Critical care time (minutes): 45 Critical care was necessary to treat or prevent imminent or life-threatening deterioration of the following condit ions: 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 No hemodynamically significant stenosis in either common or internal carotid artery. Unremarkable CTA of the [place] without vessel occlusion, high-grade stenosis or aneurysm identifi ed. RL: 460 AFC: [id number] Narrative Performed At Ordering physician: OLY MCCLELLAND PACS/VR/DOSE Indication: Suspected stroke Comparison: CT of the head without contr ast dated 05/08/2020 Technique: CTA of the head and neck was performed following the administration of intravenous contrast m aterial. Three-dimensional reformats were generated following compl etion of the exam. Degree of stenosis was estimated utilizing NASCET criteria. CT scan was performed according to ALARA (as low as reasonably achievable) policy. Findings: There is diffuse irregularity of the transve rse thoracic aorta. No hemodynamically significant stenosis is appreciated . The origin of the arch vessels. The right vertebral artery is mildly dominant. There is no focal caliber change in either vertebral artery to suggest vertebral dissection or occlusion. No hemodynamica lly significant stenosis is appreciated in either common or internal carotid artery. CTA of the [place] demonstrates no vessel occ lusion, aneurysm or high-grade stenosis. The dural venous si nuses are patent. Procedure Note [facility], Radiant Results Inft User - 2019 9:56 PM CDT Ordering physician: OLY MCCLELLAND Indication: Suspected stroke Comparison: CT of the head without contr ast dated 05/08/2020 Technique: CTA of the head and neck was performed following the administration of intravenous contrast m aterial. Three-dimensional reformats were generated following compl etion of the exam. Degree of stenosis was estimated utilizing NASCET criteria. CT scan was performed according to ALARA (as low as reasonably achievable) policy. Findings: There is diffuse irregularity of the transverse thoracic aorta. No hemodynamically significant stenosis is appreciated. The origin of the arch vessels. The right vertebral artery is mildly dominant. There is no focal caliber change in either vertebral artery to suggest vertebral dissection or occlusion. No hemodynamica lly significant stenosis is appreciated in either common or internal carotid artery. CTA of the [place] demonstrates no vessel occlusion, aneurysm or high-grade stenosis. The dural venous si nuses are patent. IMPRESSION Impression: No evidence for vertebral artery dissect ion or occlusion. No hemodynamically significant stenosis in either common or internal carotid artery. Unremarkable CTA of the [place] without vessel occlusion, high-grade stenosis or aneurysm identifi ed. RL: [id number] AF: [id number] Performing Organization Address City/State/Zipcode Phone Number PACS/VR/DOSE CT STROKE ANGIOGRAM HEAD (05/08/2020 9:21 PM CDT) Specimen Impressions Performed At Impression: PACS/VR/DOSE No evidence for vertebral artery dissect ion or occlusion. No hemodynamically significant stenosis in either common or internal carotid artery. Unremarkable CTA of the [place] without vessel occlusion, high-grade stenosis or aneurysm identifi ed. RL: [id number] AF: [id number] Narrative Performed At Ordering physician: OLY MCCLELLAND PACS/VR/DOSE Indication: Suspected stroke Comparison: CT of the head without contr ast dated 05/08/2020 Technique: CTA of the head and neck was performed following the administration of intravenous contrast m aterial. Three-dimensional reformats were generated following compl etion of the exam. Degree of stenosis was estimated utilizing NASCET criteria. CT scan was performed according to ALARA (as low as reasonably achievable) policy. Findings: There is diffuse irregularity of the transve rse thoracic aorta. No hemodynamically significant stenosis is appreciated . The origin of the arch vessels. The right vertebral artery is mildly dominant. There is no focal caliber change in either vertebral artery to suggest vertebral dissection or occlusion. No hemodynamica lly significant stenosis is appreciated in either common or internal carotid artery. CTA of the [place] demonstrates no vessel occ lusion, aneurysm or high-grade stenosis. The dural venous si nuses are patent. Procedure Note [facility], Radiant Results Inft User - 2019 9:56 PM CDT Ordering physician: OLY MCCLELLAND Indication: Suspected stroke Comparison: CT of the head without contr ast dated 05/08/2020 Technique: CTA of the head and neck was performed following the administration of intravenous contrast m aterial. Three-dimensional reformats were generated following compl etion of the exam. Degree of stenosis was estimated utilizing NASCET criteria. CT scan was performed according to ALARA (as low as reasonably achievable) policy. Findings: There is diffuse irregularity of the transverse thoracic aorta. No hemodynamically significant stenosis is appreciated. The origin of the arch vessels. The right vertebral artery is mildly dominant. There is no focal caliber change in either vertebral artery to suggest vertebral dissection or occlusion. No hemodynamica lly significant stenosis is appreciated in either common or internal carotid artery. CTA of the [place] demonstrates no vessel occlusion, aneurysm or high-grade stenosis. The dural venous si nuses are patent. IMPRESSION Impression: No evidence for vertebral artery dissect ion or occlusion. No hemodynamically significant stenosis in either common or internal carotid artery. Unremarkable CTA of the [place] without vessel occlusion, high-grade stenosis or aneurysm identifi ed. RL: [id number] AFC: [id number] Performing Organization Address City/[facility]/Zipcode Phone Number PACS/VR/DOSE POCT CREATININE (05/08/2020 8:53 PM CDT) [facility] POCT Creatinine 1.3 (H) 0.5 - 1.1 mg/dL [facility] Specimen Blood - VENOUS Performing Organization Address City/[facility]/Zipcode Phone Number [facility] CLIA: [id number] [place] [address] LABORATORY [address] [facility] [address] STROKE HEAD WO CONTRAST (05/08/2020 8:50 PM CDT) Specimen Impressions Performed At PACS/VR/DOSE No CT evidence of acute intracranial abn ormalities. Please note that MRI is more sensitive i n the setting of hyperacute ischemia. RL: 135 Electronically signed by Angie Murillo MD at 0 9:29 PM Narrative Performed At Ordering Physician: OLY MCCLELLAND PACS/VR/DOSE HISTORY: Stroke. COMPARISON: None TECHNIQUE: CT of the brain without IV co ntrast. This study was performed according to ALARA principle for radiati on dose reduction. FINDINGS: There is no acute intracranial hemorrhage. There is no shift of normally midline structures. There is no hydro cephalus. Ann-white matter differentiation is preserved. The vis ualized paranasal sinuses and mastoid air cells are clear Soft tissues are normal. Osseous structures are normal. Paranasal sinuses and mastoid air cells remain well aerated. Procedure Note [facility], Radiant Results Inft User - 2019 9:30 PM CDT Ordering Physician: OLY MCCLELLAND HISTORY: Stroke. COMPARISON: None TECHNIQUE: CT of the brain without IV co ntrast. This study was performed according to ALARA principle for radiati on dose reduction. FINDINGS: There is no acute intracranial hemorrhag e. There is no shift of normally midline structures. There is no hydroc ephalus. Ann-white matter differentiation is preserved. The visu alized paranasal sinuses and mastoid air cells are clear Soft tissue s are normal. Osseous structures are normal. Paranasal sinuses and mast oid air cells remain well aerated. IMPRESSION No CT evidence of acute intracranial abn ormalities. Please note that MRI is more sensitive i n the setting of hyperacute ischemia. RL: 135 Performing Organization Address [facility]/Zipcode Phone Number PACS/VR/DOSE GLYCOSYLATED HEMOGLOBIN (A1C) (05/08/2020 8:50 PM CDT) Pathologist Sig nature HGB A1C 5.6 4.0 - 6.0 % [facility] Specimen Blood - VENOUS Narrative Performed At %A1C (NGSP) Interpretation (ADA) [facility] 4.8-5.6 Normal or (Non-Diabetic Ra nge) 5.7-6.4 Increased Risk (Pre-Diabet ic) >6.5 Diabetes Indicated Performing Organization Address [facility]/Zipcode Phone Number [facility] CLIA: [id number] [place], [place] [address] LABORATORY [address] COVID-19 (ID NOW RAPID TESTING) (05/08/2020 8:50 PM CDT) SARS-CoV-2 Rapid ID Not Detected Not Detected [facility] Specimen Swab - NASOPHARYNGEAL SWAB Narrative Performed At ID NOW COVID-19 Assay is an isothermal nucleic [facility] acid amplification test intended for the qualitative detection of nucleic acid from SARS-CoV-2 viral RNA in nasopharyngeal (LABORER SHAFT SINKING) specimens. It is used under Emergency Use Authorization (EUA) by FDA. The limit of detection (LOD) of the assay is 125 Genome Equivalents/mL. A positive result is indicative of the presence of SARS-CoV-2 RNA. Clinical correlation with patient history and other diagnostic information is necessary to determine patient infection status. A negative (Not Detected) result does not preclude SARS-CoV-2 infection. In patients with clinical symptoms and other tests that are consistent with SARS-CoV-2 infection, negative results should be treated as presumptive negative and a new specimen should be tested with alternative PCR molecular test. Invalid: Please collect a new specimen for repeat patient testing if clinically indicated. Performing Organization Address City/State/Zipcode Phone Number [facility] CLIA: [id number] [place] [address] Basic Metabolic Panel (NA, K, CL, CO2, Glucose, BUN, Creatinine, CA) - Code Stroke (05/08/2020 8:50PM CDT) NA 138 135 - 145 [facility] mmol/L [facility] K 4.6 3.5 - 5.0 [facility] mmol/L [facility] CL 100 98 - 108 mmol/L [facility] CO2 TOTAL 28 23 - 31 mmol/L [facility] AGAP 10 2 - 16 [facility] BUN 21 7 - 23 mg/dL [facility] GLUCOSE 133 (H) 70 - 110 mg/dL [facility] CREATININE 1.16 (H) 0.50 - 1.04 [facility] mg/dL [facility] CALCIUM 10.3 8.6 - 10.6 [facility] mg/dL [facility] eGFR Calculation 45.7 mL/min/1.73m2 [facility] (Non[facility] LABORATORY Bangladeshi) eGFR Calculation 55.3 mL/min/1.73m2 [facility] () [facility] Specimen Blood - VENOUS Narrative Performed At [facility] Fil[facility] ([facility] and Staging of Kidney Disease* + + +- + | GFR (mL/min/1.73 m2) | With Kidney Damage | Without Kidney Damage + + +- + | >90 | Stage one | Normal + + +- + | 60-89 | Stage two | Decreased GFR + + +- + | 30-59 | Stage three | Stage three + + +- + | 15-29 | Stage four | Stage four + + +- + | <15 (or dialysis) | Stage five | Stage five + + +- + *Each stage assumes the associated GFR level has been in effect for at least three months. Stages 1 to 5, with or without kidney disease, indicate chronic kidney disease. Notes: Determination of stages one and two (with eGFR >59mL/min/1.73 m2) requires estimation of kidney damage for at least three months as defined by structural or functional abnormalities of the kidney, manifested by either: Pathological abnormalities or Markers of kidney damage (including abnormalities in the composition of the blood or urine or abnormalities in imaging tests). Performing Organization Address [facility] Phone Number [facility] CLIA: [id number] [place] [address] Troponin I - Code Stroke (05/08/2020 8:50 PM CDT) Pathologist Sig [employer] TROPONIN I 0.003 <=0.034 ng/mL [facility] Specimen Blood - VENOUS Narrative Performed At Equal or Less than 0.034 ng/ml---Normal [facility] Note: Cardiac troponin begins to rise 3-4 hours after the onset of ischemia. Repeat in 4-6 hours if the sample was drawn within 3-4 hours of the onset of the symptom and found normal. Between 0.035 and 0.120 ng/mL--- Borderline. Questionable myocardial injury or necros is Note: Serial measurement may be necessary to confirm or exclude the diagnosis of myocardial injury or necrosis; Clinical correlation (symptoms, EKGs, imaging studies, and others) required; Repeat in 4-6 hours if clinically indicated. Equal or Higher than 0.121 ng/mL---Abnormal. Myocardial Injury or Necrosis Likely Biotin has been reported to cause a negative bias, interpret results relative to patient's use of biotin. Performing Organization Address [facility] Phone Number [facility] CLIA: [id number] [place] [address] CBC without Diff - Code Stroke (05/08/2020 8:50 PM CDT) Pathologist Sig nature WBC 7.67 4.30 - 11.10 [facility] 10*3/L HOSPITAL LAB[facility]ORY RBC 4.89 3.93 - 5.25 10*6/L [facility] HGB 14.7 11.6 - 15.0 g/dL [facility] HCT 45.2 35.7 - 45.2 % [facility] MCH 30.1 25.9 - 32.8 pg [facility] MCV 92.4 80.6 - 95.5 fL [facility] MCHC 32.5 31.6 - 35.1 g/dL [facility] PLT 229 166 - 358 10*3/L [facility] MPV 11.7 9.5 - 12.9 fL [facility] RDW-CV 14.4 12.0 - 15.5 % [facility] RDW-SD 48.3 39.0 - 49.9 fL [facility] NRBC x10^3 <0.01 10*3/L [facility] NRBC/100 WBC 0.0 0.0 - 10.0 /100 WBCs [facility] IPF % [facility] Specimen Blood - VENOUS Performing Organization Address City/[facility]/Zipcode Phone Number [facility] CLIA: [id number] [place] [address] aPTT (05/08/2020 8:50 PM CDT) Pathologist Sig nature APTT Patient 30 23 - 38 Seconds [facility] Specimen Blood - VENOUS Narrative Performed At The [facility] patient population mean normal value [facility] for aPTT is 30 seconds. Performing Organization Address City/[facility] Cent[facility]ode Phone Number [facility] CLIA: [id number] [place] [address] Prothrombin Time / INR - Code Stroke (05/08/2020 8:50 PM CDT) [facility] Signature PROTIME PATIENT 12.0 12.0 - 14.7 [facility] LABORATORY INR 0.9Comment: Normal [facility] INR <1.1; Warfarin HOSPITAL Therapeutic range LABORATORY 2.0 to 3.0 or 2.5 to 3.5, depending upon the indications. Specimen Blood - VENOUS Performing Organization Address City/State/Zipcode Phone Number [facility] CLIA: [id number] [place] [address] documented in this encounter Visit Diagnoses Diagnosis Left-sided weakness - Primary Muscle weakness (generalized) TIA (transient ischemic attack) Unspecified transient cerebral ischemia Ataxia Lack of coordination Diverticulitis Diverticulitis of colon (without mention of hemorrhage) documented in this encounter Administered Medications Medication Order MAR Action Action Date Dose Rate Site aspirin chewable tablet 81 mg Given 05/09/2020 8:01 AM CDT 81 mg 81 mg, Oral, DAILY, First dose on Tue05/09/20 at 0900, Until Discontinued, Routine atorvastatin (LIPITOR) tablet 80 mg 80 mg, Oral, QHS, First dose (after last modification) on Tue05/09/20 at 2100, Until Discontinued, Routine clopidogreL (PLAVIX) tablet 75 mg Given 05/09/2020 2:01 PM CDT 75 mg 75 mg, Oral, DAILY, First dose on Tue05/09/20 at 0900, Until Discontinued, Routine FLUoxetine (PROZAC) capsule 10 mg 10 mg, Oral, DAILY, First dose on Tue at 0900, Until Discontinued, Routine heparin (porcine) injection Given 05/09/2020 8:01 AM CDT 5,000 Units Abdomen-SC 5,000 Units 5,000 Units, Subcutaneous, Q12H, First dose on Tue05/09/20 at 0800, Until Discontinued, Routine labetaloL (NORMODYNE) injection 20 mg 20 mg, Slow IV Push, Q30MIN PRN, Startin g Tue05/09/20 at 0100, Until Discontinued, KRISTOPHER, give for SBP >220 or DPB >105 levothyroxine (SYNTHROID) tablet 125 mcg Given 05/09/2020 5:54 AM CDT 125 mcg 125 mcg, Oral, QAM-0600, First dose on Tue05/09/20 at 0600, Until Discontinued, Routine NaCl 0.9% (NS) injection 5 mL 5 mL, Slow IV Push, PRN - SEE INSTRUCTIONS, Starting T hu 05/08/20 at 4, Until Discontinued, 10 mL Saline Bubble Study Given 05/09/2020 9:32 AM CDT 6 mL 6 mL, Injection, SEE-INSTRUCTIONS, Starting 05/09/20 at 1332, Until Discontinued, Routine Given 05/09/2020 9:30 AM CDT 6 mL Medication Order MAR Action Action Date Dose Rate Site iohexol (OMNIPAQUE 350 BULK-150 Given 05/08/2020 9:30 PM CDT 12 0 mL mL) injection 120 mL 120 mL, Intravenous, ONCE, 1 dose, Lilo 05/08/20 at 2130, Routine perflutren protein-A microsphr (OPTISON) Given 05/09/2020 9:45 AM CDT 3 mL injection 3 mL 3 mL, IV Push, ONCE, 1 dose, Tue05/09/20 at 1445, Routine documented in this encounter Additional Health Concerns Infection Onset Date Last Indicated Resolved Time COVID-19 Rule Out 05/08/2020 05/08/2020 05/08/2020 9: 39 PM CDT documented as of this encounter Insurance Payer Benefit Plan / Subscriber ID Effective Dates Phone Addre ss Type Group MEDICARE MEDICARE PART [id number] 2011-Steven [phone] [address] Medicare A & B t 2 [id number] [place] [employer] [id number] documented as of this encounter
--- OUTSIDE RECORDS SUMMARY | 2020-05-09 18:47 | XMS REPORT | Continuity of Care Document ---
:1945 Author Organization [facility] t Address [address] [place] [address] Care Team Providers Name Role Phone Everett Mcclelland MD Attending Clinician Susan Womack MD Attending Clinician Dolores FRANCISCO, Jose Attending Clinician Tk FRANCISCO, K.H. Attending Clinician Luis Womack MD Admitting Clinician Problems This patient has no known problems. Allergies, Adverse Reactions, Alerts This patient has no known allergies or adverse reactions. Medications This patient has no known medications. Procedures This patient has no known procedures. Encounters Start End Encounter Admission Attending Care Care Encounter Source Date/Time Date/Time Type Type Clinicians Facility Department ID 2020-05-08 2020-05-09 [facility] Everett Mcclelland [id number] 20:34:00 16:50:00 Encounter Susan Womack [id number] [facility] [id number] 2020-02-14 2020-02-14 [id number] 00:00:00 00:00:00 Hui Melendez [id number] [place] [id number] Professio [phone] [facility] [address] [facility] 2019-11-15 2019-11-15 [place] [id number] 08:11:32 08:41:32 ne Visit Andrew Melendez [id number] [place] [id number] Professio [phone] [facility] [address] [place] [address] 2019-11-08 2019-11-08 Telephone [place] [id number] 00:00:00 00:00:00 Hui Melendez [id number] [place] [id number] Professio [phone] [facility] 2019-10-11 2019-10-11 Office [place] [id number] 14:23:37 15:35:47 Visit Hui Melendez [id number] [place] [id number] Professio [phone] [address] Results This patient has no known results.
[2020-05-09] MEDS ORDERED: ALBUTEROL 2.5 MG/3 ML NEB SOL NEB PRN (21:07)
[2020-05-09] MEDS ORDERED: carvediloL 25 MG TAB PO ONE (21:14)
[2020-05-09 21:34] LABS: Urine Appearance CLEAR; Urine Bilirubin NEGATIVE (NEG); Urine Blood NEGATIVE (NEG); Urine Color YELLOW; Urine Glucose NEGATIVE (NEG); Urine Protein 2+ (NEG); Urine Specific Gravity >=1.030 (1.005-1.030); Urine Urobilinogen 0.2 mg/dL (0.2-1.0); Urine pH 5.5 (5.0-7.0)
[2020-05-09 21:39] LABS: Urine Microscopic Reflex ORDER UMIC
[2020-05-09 21:46] LABS: Urine Bacteria <20 /HPF (<20); Urine RBC <5 /HPF (NONE SEEN)
[2020-05-09 21:47] LABS: Urine Culture Reflex Order NOT NEEDED
[2020-05-10 00:21] VITALS: BMI 30.9
[2020-05-10] MEDS ORDERED: DOCUSATE NA/SENNA CONC 1 TAB PO PRN (01:08)
[2020-05-10] MEDS ORDERED: MELATONIN 3 MG TABLET PO PRN (01:10)
[2020-05-10] MEDS: carvediloL 25 MG TAB PO SCH ×2 (05:30→17:04)
[2020-05-10 06:56] LABS: Absolute Lymphocytes (CBC) 0.9 K/uL (0.7-4.9); Basophils % 1.3 % (0-1.3); Hematocrit 41.1 % (36.0-45.0); Lymphocytes % 16.4 % (15.3-44.8); MPV 9.8 fL (7.6-11.3); RBC Red Blood Cell Count 4.57 M/uL (3.86-4.86)
[2020-05-10 07:12] LABS: Albumin 3.2 g/dL (3.4-5.0); Magnesium 2.3 mg/dL (1.8-2.4); Potassium 4.3 mmol/L (3.5-5.1); Prealbumin 21.2 mg/dL (20-40)
[2020-05-10] MEDS: LEVOTHYROXINE SOD 0.125 MG TAB PO SCH (07:46)
[2020-05-10] MEDS ORDERED: ENOXAPARIN 40 MG/0.4 ML SQ SCH (08:00)
[2020-05-10] MEDS: ENOXAPARIN 40 MG/0.4 ML SQ SCH (10:17)
[2020-05-10] MEDS ORDERED: LOSARTAN POTASSIUM 50 MG TABLET PO SCH (12:00)
--- NOTE | 2020-05-10 18:44 | R.HP ---
HISTORY AND PHYSICAL FACILITY: [facility] ENCOUNTER DATE AND TIME: 05/10/2020 18:39 (CDT) MR#: [id number] NAME Lovely Roblero ADDRESS: [address] [place] [address] CITY: [place] [address]IP [id number] PHONE: DATE OF : 1945 AGE: 75 SSN# [id number] GENDER: Female DEXTERITY Right-handed MARITAL STATUS RACE White PRE-HOSPITAL LIVING SETTING 01 - Home (private home/apt. board/care, assisted living, custodial, transitional living) PRE-HOSPITAL LIVING WITH Family/Relatives ENCOUNTER PHYSICIAN: Dr. Demar Cortez M.D. REFERRING DOCTOR: DR. Susan Womack DATE OF ADMISSION: 05/09/2020 16:45 (CDT) REFERRING FACILITY [facility] HOME TYPE AND DETAILS: Type of home: single family house # of steps to enter the residence: 0 # of steps within the residence: 0 # of levels in the residence: 1 lives with son who works from home ONSET DATE: 05/08/2020 PRIMARY DIAGNOSIS-RELATED SURGERIES: No surgeries related to the primary diagnosis were performed. HISTORY OF PRESENT ILLNESS (HPI): Pt. is a 75 yo Right-handed white female. On 05/08/2020 Pt. presented to [facility] with sudden onset of left-side weakness. On 05/08/2020 she was admitted to [facility] with diagnosis acute cerebellar stroke. Her impairment category is Stroke 01 - Left Body (Right Brain) (01.1). Pre-morbidly, Pt. was independent/mod-I in Transfers Control, Self-Care, and Locomotion; and she had good Balance, Safety Awareness, Sphincter Control, Communication, and Social Cognition. Currently, she has deficits of Transfers Control, Balance, Locomotion, Safety Awareness, and Self-Car e. Pt. is now referred to [facility] for acute in-patient rehabilitation in order to maximize patient's functional independence in activities of daily living, strength, ROM, and mobi lity. Patient has realistic goal of being discharged at assistance level 6-Adriane to reside at Home with Fam petr/Relatives. MEDICATION ALLERGIES: Aspirin ENVIRONMENTAL ALLERGIES: None Known - Substance Allergies None Known - Other Allergies None Known PAST MEDICAL HISTORY: HTN Dyastolic Dysfunction Bilateral Carotid Artery Stenosis CKD 3 Hypothyroidism, unspecified (E03.9) Neuropathy PAST SURGICAL HISTORY: Left Renal Artery Stent COLONOSCOPY Esophogialgastroendoscopy Cholecystectomy thyroidectomy Tonsillectomy SOCIAL HISTORY: - Home Living Family/Relatives REVIEW OF SYSTEMS: - Gen No Chills Fatigue No Fever - Eyes No Double Vision No itchiness - ENMT No Difficulty Swallowing - CVS No Chest Discomfort No Chest Pain No Fatigue No Weight Gain - Resp No Cough No Shortness of Breath - GI Continent No Abdominal Pain No Constipation No Diarrhea - Continent No Kidney Pain No Painful Urination No Urinary Urgency - MSK No Joint Pain Muscle Cramps No Stiffness - Skin No Itching No Rash No Suspicious Lesions - Neuro Coordination Difficulty No Difficulty with Concentration No Memory Loss No Seizures Weakness - Psych No Anxiety No Depression No HIV Exposure No Persistent Infections No Seasonal Allergies - Endo No Cold/Heat Intolerance No Excessive Hunger No Excessive Thirst No Excessive Urination PHYSICAL EXAM - Gen Alert and awake Lying in bed No apparent distress Oriented to: person, time, and place - Skin No skin breakdown. Normacephalic - Eyes No abnormalities - ENMT No abnormalities - Neck No abnormalities - CVS RRR - Chest Clear - Resp No wheezing - Abd Soft - GI Non distended Deferred - No abnormalities - Ext No significant edema - MSK 4+/5 weakness in left upper and lower extremity - Neuro 4/5 strength left upper and lower extremities. - Psych No abnormalities VITAL SIGNS Temperature: 97.2 F SBP/DBP: 150/60 Pulse: 60 Resp: 16 NURSING: - Shower allowing shower - Bladder care per protocol - Skin care per protocol PRECAUTIONS: - Weight Bearing Precaution WBAT left LE ACTIVITIES OOB only with supervision QI SCORES: - Self-Care A. Eating 05-Setup or clean-up assistance B. Oral hygiene 05-Setup or clean-up assistance C. Toileting hygiene 03-Partial/moderate assistance E. Shower/bathe self 04-Supervision or touching assistance F. Upper body dressing 05-Setup or clean-up assistance G. Lower body dressing 05-Setup or clean-up assistance H. Putting on/taking off footwear 04-Supervision or touching assistance - Mobility A. Roll left and right 04-Supervision or touching assistance B. Sit to lying 04-Supervision or touching assistance C. Lying to sitting on side of bed 04-Supervision or touching assistance D. Sit to stand 04-Supervision or touching assistance E. Chair/rre-fa-ehsld transfer 04-Supervision or touching assistance F. Toilet transfer 04-Supervision or touching assistance G. Car transfer 10-Not attempted due to environmental limitations I. Walk 10 feet 04-Supervision or touching assistance J. Walk 50 feet with two turns 88-Not attempted due to medical condition or safety concerns K. Walk 150 feet 88-Not attempted due to medical condition or safety concerns L. Walking 10 feet on uneven surfaces 88-Not attempted due to medical condition or safety concerns M. 1 step (curb) 88-Not attempted due to medical condition or safety concerns N. 4 steps 88-Not attempted due to medical condition or safety concerns O. 12 steps 88-Not attempted due to medical condition or safety concerns P. Picking up object 88-Not attempted due to medical condition or safety concerns - Bladder and Bowel Bladder continence 0-Always continent Bowel continence 0-Always continent - Endurance Poor - Balance Poor - Safety Awareness Poor CURRENT FUNC. DEFICITS: Self-Care, Mobility, Endurance, Balance, and Safety Awareness MEDICATIONS: - N/A See attached MAR (Medication Administration Record) ASSESSMENT: Pt. is a 75 yo Right-handed white female.On 05/08/2020 Pt. presented to [facility] with sudden onset of left-side weakness.On 05/08/2020 she was admitted to [facility] with diagnosis acute c erebellar stroke.Her impairment category is Stroke 01 - Left Body (Right Brain) (01.1).Pre-morbidly, Pt. was independent/mod-I in Transfers Control, Self-Care, and Locomotion; and she had good Balance, Safety Awareness, Sphincter Control, Communication, and Social Cognition.Currently, she has deficits of Transfers Control, Balance, Locomotion, Safety Awareness, and Self-Care.Pt. is now referred to [facility] for acute in-patient rehabilitation in order to maximize patient's fu nctional independence in activities of daily living, strength, ROM, and mobility.- Rehab Goal Patient has realistic goal of being discharged at assistance level 6-Adriane to reside at Home with Fam petr/Relatives. REHAB PLAN: for Dementia, TBI, Stroke, or others - Physical Therapy Gait dysfunction - to improve, our physical therapists will perform initial evaluation of pt's status upon admission and devise an individualized program for Gait Training, and Wheel Chair mobility Inability to transfer - to improve, our physical therapists will perform initial evaluation of pt's s tatus upon admission and devise an individualized program for Bed mobility Need for home safety evaluation - to improve, our physical therapists will perform initial evaluation of pt's status upon admission and devise an individualized program for Home Evaluation Need in caregiver upon discharge - to improve, our physical therapists will perform initial evaluatio n of pt's status upon admission and devise an individualized program for Caregiver Training Edema - to improve, our physical therapists will perform initial evaluation of pt's status upon admi ssion and devise an individualized program for Elevation Training, and Lymphedema Therapy New precaution - to improve, our physical therapists will perform initial evaluation of pt's status u lorena admission and devise an individualized program for Patient precaution education Poor balance - to improve, our physical therapists will perform initial evaluation of pt's status upo n admission and devise an individualized program for Balance Training Weakness - to improve, our physical therapists will perform initial evaluation of pt's status upon ad mission and devise an individualized program for Aquatic Therapy, Neuromuscular Reeducation, and Stre ngthening Achieving independence - to improve, our physical therapists will perform initial evaluation of pt's status upon admission and devise an individualized program for Community Reintegration Activities - Occupational Therapy ADL deficits - to improve, our occupation therapists will perform initial evaluation of pt's status u lorena admission and devise an individualized program for Bathing, Bed mobility, Community Reintegration , Cooking, Dressing, Eating, Fine Motor Skills, Grooming, Homemaking, Kitchen Mobility, Laundry, Eunice ent Education, Safety Awareness, Splinting - Positioning, Transfers(Toilet, Tub, Shower), and Wheel C hair Management Need for neonatal intensive care unit nurse - to improve, our occupation therapists will perform initial evaluation of pt's s tatus upon admission and devise an individualized program for Caregiver Training Weakness - to improve, our occupation therapists will perform initial evaluation of pt's status upon admission and devise an individualized program for Aquatic Therapy, Balance, Endurance, UE ROM, and U E strengthening MEDICAL PLAN: - Diet Type Start Regular - Diet - Liquid Texture Start Regular - Tube Feed Start N/A - Bladder care per protocol - Weight Bearing Precaution WBAT left LE WBAT left UE - N/A See attached MAR (Medication Administration Record) - Skin care per protocol - Diet - Solid Texture Regular - Shower shower DISCHARGE PLAN: - Estimated Length of Stay (days) 17. - Consensus on plan Discharge plan has been discussed with primary caregiver. Patient/Family is in agreement with the mis n. Primary caregiver is in agreement with the plan. - Patient/Family Goals Return home independently. - Planned Living Setting Upon Discharge Home, to live with Family/Relatives. SIGNATURE PANEL: (CDT)
--- NOTE | 2020-05-10 18:45 | PAPE ---
POST ADMISSION PHYSICIAN EVALUATION PATIENT: [facility] MR# [id number] REFERRING DOCTOR DR. Susan Womack EVALUATION DATE AND TIME 05/10/2020 18:44 (CDT) NAME Lovely Roblero DATE OF 1945 AGE 75 PHONE SSN# [id number] GENDER female EVALUATING PHYSICIAN Dr. Demar Cortez M.D. ADMISSION DIAGNOSIS: acute cerebellar stroke ONSET DATE 05/08/2020 POST-ADMISSION FUNCTIONAL/MEDICAL STATUS: - Walking Same score based on distance walked: 1(<=50ft) STATUS CHANGE EVALUATION: No change in Functional or Medical Status is identified compared with Pre-Admission screening. PATIENT NEEDS CLOSE MEDICAL SUPERVISION BY A REHABILITATION PHYSICIAN FOR: Coordination of Treatment Team PATIENT REQUIRES 24X7 REHAB NURSING FOR MEDICAL AND FUNCTIONAL MGT. OF THE FOLLOWING DEFICITS: Disease Management Medication Management Patient/Family Education Providing Safe Environment PATIENT REQUIRES INTENSIVE, COORDINATED INTERDISCIPLINARY APPROACH TO REHAB: Arranging Home Equipment/Services Discharge Planning Family Intervention/Training Manager Marketing Sales/Case Management LIST OF IDENTIFIED AND POTENTIAL PROBLEMS: Alteration in leisure activities Infection, Actual or Potential Mobility Impaired Pain, Alteration in Comfort Self Care Deficit Skin Integrity, Actual or Potential Urinary Tract Infection (UTI), Actual or Potential PATIENT COULD BE AT RISK FOR COMPLICATIONS FROM ADVERSE MEDICAL CONDITIONS DUE TO HIS/HER COMORBIDITI ES AND THE RIGORS OF THE INTENSIVE REHABILLITATION PROGRAM. METHODS OR INTERVENTIONS TO AVOID COMPLIC ATIONS INCLUDE: - Bleeding Stroke patients assessed for lethargy or change in status. - Infection Clinical staff to assess and manage the signs and symptoms of infection including fever, redness, war mth, etc. - Urinary Tract Infection - Aspiration Clinical staff will assess and manage coughing, drooling, congestion. - Falls Patient will be evaluated for Fall Precautions and will be placed on Fall Precautions as indicated pe r protocol. - Skin Breakdown Nursing will assess skin daily using assessment tool and will place on Skin Breakdown Precautions as indicated per protocol. - Pain Clinical staff may employ non-medication methods such as massage, distraction, decrease stimulus, etc . as needed. Clinical staff will assess patient's pain level every shift per protocol to assess and e nsure pain management effectiveness. Medications will be given and the pain level re-assessed. PRELIMINARY PLAN OF CARE: - Physical Therapy Patient needs Physical Therapy for a daily minimum of 1.5 hours at least 5 out of 7 days, to improve: Mobility, Strengthening, Transfers, Stretching, ROM, Endurance, Ability to manage stairs, Gait, and Balance. - Speech Therapy Patient needs Speech Therapy for a daily minimum of 0.5 hours at least 5 out of 7 days, to improve: S wallowing, Cognition, Language Skills, and Compensatory Strategies. - Rehabilitation Nursing Patient requires 24x7 Rehabilitation Nursing for: Pain Issues, Identifying and preventing risk factor s, Monitoring and reporting current medical conditions, Assisting with ambulation and transfer, Lucho ting with all ADL-s, Teaching patients about disease process and medications, Family teaching, Provid ing safe environment, Bowel and Bladder Issues, Skin Integrity, and Medication Management. Patient needs Manager Marketing Sales and/or Case Management for: Discharge Planning, Arranging Home Equipmen t or Services, and Family Interventions. - Dietary and Nutrition Services Patient needs Dietary and Nutrition Services for: Adequate Nutrition, Nutritional Supplements, and Nu tritional Education. - Occupational Therapy Patient needs Occupational Therapy for a daily minimum of 1.5 hours at least 5 out of 7 days, to impr ove Activities of Daily Living, including: Eating, Grooming, Bathing, Dressing, Toileting, Toilet Tra nsfers, Community Reintegration, Higher functional activities, Adaptive Equipment, Splinting, Househo ld Tasks, and Other activities as determined. QI SCORES: - Self-Care A. Eating 05-Setup or clean-up assistance B. Oral hygiene 05-Setup or clean-up assistance C. Toileting hygiene 03-Partial/moderate assistance E. Shower/bathe self 04-Supervision or touching assistance F. Upper body dressing 05-Setup or clean-up assistance G. Lower body dressing 05-Setup or clean-up assistance H. Putting on/taking off footwear 04-Supervision or touching assistance - Mobility A. Roll left and right 04-Supervision or touching assistance B. Sit to lying 04-Supervision or touching assistance C. Lying to sitting on side of bed 04-Supervision or touching assistance D. Sit to stand 04-Supervision or touching assistance E. Chair/utf-ex-mtagk transfer 04-Supervision or touching assistance F. Toilet transfer 04-Supervision or touching assistance G. Car transfer 10-Not attempted due to environmental limitations I. Walk 10 feet 04-Supervision or touching assistance J. Walk 50 feet with two turns 88-Not attempted due to medical condition or safety concerns K. Walk 150 feet 88-Not attempted due to medical condition or safety concerns L. Walking 10 feet on uneven surfaces 88-Not attempted due to medical condition or safety concerns M. 1 step (curb) 88-Not attempted due to medical condition or safety concerns N. 4 steps 88-Not attempted due to medical condition or safety concerns O. 12 steps 88-Not attempted due to medical condition or safety concerns P. Picking up object 88-Not attempted due to medical condition or safety concerns - Bladder and Bowel Bladder continence 0-Always continent Bowel continence 0-Always continent - Endurance Poor - Balance Poor - Safety Awareness Poor POTENTIAL FUNCTIONAL GOALS FOR PATIENT TO ACHIEVE BY DISCHARGE: - Safety Precaution Patient will remain free from falls or injury at time of discharge. - Bed Mobility Patient will perform bed mobility at 4-Mary level of assistance. - Transfers Patient will complete transfers from bed to chair at 4-Mary level of assistance. - Mobility Patient will ambulate 150 ft with 4-Mary level of assistance with RW. PATIENT REHAB POTENTIAL Laura Roblero is able and expected to receive 3 hours of individualized therapy daily on at least 5 of adebayo ry 7 days Laura Roblero's prognosis for significant practical improvement within a reasonable period of time appears Good Expected level of measurable improvement will be of a practical value to Laura Roblero's functional capaci ty or adaptations to impairments Has a viable Discharge Plan Medically appropriate; condition is sufficiently stable to participate in intensive rehab program DISCHARGE PLAN: - Estimated Length of Stay (days) 17. - Consensus on plan Discharge plan has been discussed with primary caregiver. Patient/Family is in agreement with the mis n. Primary caregiver is in agreement with the plan. - Patient/Family Goals Return home independently. - Planned Living Setting Upon Discharge Home, to live with Family/Relatives. CONCLUSION ON REHABILITATION NECESSITY: I have evaluated patient's pre-admission functional status and, comparing it to the patient's post-ad mission functional status now, I conclude that the pre-admission assessment was accurate. Patient's c ondition on admission supports the medical necessity of admission to [facility]. It is safe to proceed with patient's therapy program. SIGNATURE PANEL: (CDT)
[2020-05-11] MEDS: carvediloL 25 MG TAB PO SCH ×2 (05:34→17:09)
[2020-05-11] MEDS: LEVOTHYROXINE SOD 0.125 MG TAB PO SCH (07:17)
[2020-05-11] MEDS: LOSARTAN POTASSIUM 50 MG TABLET PO SCH (08:39)
[2020-05-11] MEDS: ENOXAPARIN 40 MG/0.4 ML SQ SCH (08:40)
[2020-05-12] MEDS: carvediloL 25 MG TAB PO SCH ×2 (05:08→17:00)
[2020-05-12] MEDS: LEVOTHYROXINE SOD 0.125 MG TAB PO SCH (06:27)
[2020-05-12] MEDS: ENOXAPARIN 40 MG/0.4 ML SQ SCH (06:29)
[2020-05-12] MEDS: LOSARTAN POTASSIUM 50 MG TABLET PO SCH (08:02)
--- NOTE | 2020-05-12 17:14 | R.PN ---
PROGRESS NOTES ENCOUNTER DATE AND TIME: 05/12/2020 17:07 (CDT) NAME Lovely Roblero DATE OF : 1945 DATE OF ADMISSION: 05/09/2020 16:45 (CDT) acute cerebellar strokeCHIEF COMPLAINT: Cerebellar stroke SUBJECTIVE: Pt denied any depression. Pt denied any Shortness of Breath. CBC wit differential is normal. 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 COVID-19 is negative. Ambu lated 250' with standby assistance. VITAL SIGNS Temperature: 97.7 F SBP/DBP: 144/64 Pulse: 59 Resp: 16 MEDICATION ALLERGIES: Aspirin ENVIRONMENTAL ALLERGIES: None Known - Substance Allergies None Known - Other Allergies None Known NURSING: - Shower allowing shower - Bladder care per protocol - Skin care per protocol PRECAUTIONS: - Weight Bearing Precaution WBAT left LE ACTIVITIES OOB only with supervision THERAPIES: - Occupational Therapy Cognitive Retraining. Visual Perceptual Training. - Dietary and Nutrition Adequate Nutrition. Nutritional Education. Nutritional Supplements. - Speech Therapy Cognitive Training. Expressive Language Skills. Memory Strategies. Receptive Language Skills. Speech Intelligibility Training. PHYSICAL EXAM - Gen Alert and awake Lying in bed No apparent distress Oriented to: person, time, and place - Skin No skin breakdown. Normacephalic - Eyes No abnormalities - ENMT No abnormalities - Neck No abnormalities - CVS RRR - Chest Clear - Resp No wheezing - Abd Soft - GI Non distended Deferred - No abnormalities - Ext No significant edema - MSK 4+/5 weakness in left upper and lower extremity - Neuro 4/5 strength left upper and lower extremities. - Psych No abnormalities ASSESSMENT: Pt. is a 75 yo Right-handed white female.On 05/08/2020 Pt. presented to [facility] with sudden onset of left-side weakness.On 05/08/2020 she was admitted to [facility] with diagnosis acute c erebellar stroke.Her impairment category is Stroke 01 - Left Body (Right Brain) (01.1).Pre-morbidly, Pt. was independent/mod-I in Transfers Control, Self-Care, and Locomotion; and she had good Balance, Safety Awareness, Sphincter Control, Communication, and Social Cognition.Currently, she has deficits of Transfers Control, Balance, Locomotion, Safety Awareness, and Self-Care.Pt. is now referred to [facility] for acute in-patient rehabilitation in order to maximize patient's fu nctional independence in activities of daily living, strength, ROM, and mobility.- Rehab Goal Patient has realistic goal of being discharged at assistance level 6-Adriane to reside at Home with Fam petr/Relatives. MDM/PLAN: - Physical Therapy Gait dysfunction - to improve, our physical therapists will perform initial evaluation of pt's statu s upon admission and devise an individualized program for Gait Training, and Wheel Chair mobility Inability to transfer - to improve, our physical therapists will perform initial evaluation of pt's status upon admission and devise an individualized program for Bed mobility Need for home safety evaluation - to improve, our physical therapists will perform initial evaluatio n of pt's status upon admission and devise an individualized program for Home Evaluation Need in caregiver upon discharge - to improve, our physical therapists will perform initial evaluati on of pt's status upon admission and devise an individualized program for Caregiver Training Edema - to improve, our physical therapists will perform initial evaluation of pt's status upon admis pita and devise an individualized program for Elevation Training, and Lymphedema Therapy New precaution - to improve, our physical therapists will perform initial evaluation of pt's status upon admission and devise an individualized program for Patient precaution education Poor balance - to improve, our physical therapists will perform initial evaluation of pt's status up on admission and devise an individualized program for Balance Training Weakness - to improve, our physical therapists will perform initial evaluation of pt's status upon a dmission and devise an individualized program for Aquatic Therapy, Neuromuscular Reeducation, and Str engthening Achieving independence - to improve, our physical therapists will perform initial evaluation of pt's status upon admission and devise an individualized program for Community Reintegration Activities - Occupational Therapy ADL deficits - to improve, our occupation therapists will perform initial evaluation of pt's status upon admission and devise an individualized program for Bathing, Bed mobility, Community Reintegratio n, Cooking, Dressing, Eating, Fine Motor Skills, Grooming, Homemaking, Kitchen Mobility, Laundry, Pat ient Education, Safety Awareness, Splinting - Positioning, Transfers(Toilet, Tub, Shower), and Wheel Chair Management Need for child care development specialist - to improve, our occupation therapists will perform initial evaluation of pt's status upon admission and devise an individualized program for Caregiver Training Weakness - to improve, our occupation therapists will perform initial evaluation of pt's status upon admission and devise an individualized program for Aquatic Therapy, Balance, Endurance, UE ROM, and UE strengthening - N/A See attached MAR (Medication Administration Record) - Diet Type Continue Regular - Diet - Liquid Texture Continue Regular - Tube Feed Continue N/A - Bladder care per protocol - Weight Bearing Precaution WBAT left LE WBAT left UE - Skin care per protocol - Diet - Solid Texture Continue Regular - Shower allowing shower for Dementia, TBI, Stroke, or others FUNCTIONAL STATUS: UPDATED AT WEEKLY TEAM CONFERENCE - Walking Same score based on distance walked: 1(<=50ft) FUNCTIONAL STATUS: - Self-Care A. Eating Ind B. Grooming Ind C. Bathing sup D. Dressing - Upper Adriane E. Dressing - Lower sup F. Toileting Adriane - Sphincter Control G. Bladder control Adriane H. Bowel control Adriane - Transfers Control I. Bed/Chair/Wheelchair sup J. Toilet sup K. Tub/Shower sup - Locomotion L. Walk/Wheelchair (B) sup M. Stairs Mary - Communication N. Comprehension (B) Adriane O. Expression (B) Adriane - Social Cognition P. Social Interaction Ind Q. Problem Solving Ind R. Memory Ind - Endurance Good - Balance Fair - Safety Awareness Good QI SCORES: - Self-Care A. Eating 05-Setup or clean-up assistance B. Oral hygiene 05-Setup or clean-up assistance C. Toileting hygiene 03-Partial/moderate assistance E. Shower/bathe self 04-Supervision or touching assistance F. Upper body dressing 05-Setup or clean-up assistance G. Lower body dressing 05-Setup or clean-up assistance H. Putting on/taking off footwear 04-Supervision or touching assistance - Mobility A. Roll left and right 04-Supervision or touching assistance B. Sit to lying 04-Supervision or touching assistance C. Lying to sitting on side of bed 04-Supervision or touching assistance D. Sit to stand 04-Supervision or touching assistance E. Chair/fud-yx-[id number] transfer 04-Supervision or touching assistance F. Toilet transfer 04-Supervision or touching assistance G. Car transfer 10-Not attempted due to environmental limitations I. Walk 10 feet 04-Supervision or touching assistance J. Walk 50 feet with two turns 88-Not attempted due to medical condition or safety concerns K. Walk 150 feet 88-Not attempted due to medical condition or safety concerns L. Walking 10 feet on uneven surfaces 88-Not attempted due to medical condition or safety concerns M. 1 step (curb) 88-Not attempted due to medical condition or safety concerns N. 4 steps 88-Not attempted due to medical condition or safety concerns O. 12 steps 88-Not attempted due to medical condition or safety concerns P. Picking up object 88-Not attempted due to medical condition or safety concerns - Bladder and Bowel Bladder continence 0-Always continent Bowel continence 0-Always continent - Endurance Poor - Balance Poor - Safety Awareness Poor CURRENT FUNC. DEFICITS: Self-Care, Mobility, Endurance, Balance, and Safety Awareness SIGNATURE PANEL: (CDT)
[2020-05-13] MEDS: carvediloL 25 MG TAB PO SCH ×2 (05:46→16:48)
[2020-05-13] MEDS: LEVOTHYROXINE SOD 0.125 MG TAB PO SCH (06:52)
[2020-05-13] MEDS: ENOXAPARIN 40 MG/0.4 ML SQ SCH (06:58)
[2020-05-13] MEDS: LOSARTAN POTASSIUM 50 MG TABLET PO SCH (07:51)
--- NOTE | 2020-05-13 17:35 | R.PN ---
PROGRESS NOTES ENCOUNTER DATE AND TIME: 05/13/2020 17:31 (CDT) NAME Lovely Roblero DATE OF : 1945 DATE OF ADMISSION: 05/09/2020 16:45 (CDT) acute cerebellar strokeCHIEF COMPLAINT: Cerebellar stroke SUBJECTIVE: Pt denied any depression. Pt denied any Shortness of Breath. CBC wit differential is normal. 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 COVID-19 is negative. Ambu lated 250' with independence. Up and down 93 steps with independence. VITAL SIGNS Temperature: 97.0 F SBP/DBP: 166/58 Pulse: 58 Resp: 16 MEDICATION ALLERGIES: Aspirin ENVIRONMENTAL ALLERGIES: None Known - Substance Allergies None Known - Other Allergies None Known NURSING: - Shower allowing shower - Bladder care per protocol - Skin care per protocol PRECAUTIONS: - Weight Bearing Precaution WBAT left LE ACTIVITIES OOB only with supervision THERAPIES: - Occupational Therapy Cognitive Retraining. Visual Perceptual Training. - Dietary and Nutrition Adequate Nutrition. Nutritional Education. Nutritional Supplements. - Speech Therapy Cognitive Training. Expressive Language Skills. Memory Strategies. Receptive Language Skills. Speech Intelligibility Training. PHYSICAL EXAM - Gen Alert and awake Lying in bed No apparent distress Oriented to: person, time, and place - Skin No skin breakdown. Normacephalic - Eyes No abnormalities - ENMT No abnormalities - Neck No abnormalities - CVS RRR - Chest Clear - Resp No wheezing - Abd Soft - GI Non distended Deferred - No abnormalities - Ext No significant edema - MSK 4+/5 weakness in left upper and lower extremity - Neuro 4/5 strength left upper and lower extremities. - Psych No abnormalities ASSESSMENT: Pt. is a 75 yo Right-handed white female.On 05/08/2020 Pt. presented to [facility] with sudden onset of left-side weakness.On 05/08/2020 she was admitted to [facility] with diagnosis acute c erebellar stroke.Her impairment category is Stroke 01 - Left Body (Right Brain) (01.1).Pre-morbidly, Pt. was independent/mod-I in Transfers Control, Self-Care, and Locomotion; and she had good Balance, Safety Awareness, Sphincter Control, Communication, and Social Cognition.Currently, she has deficits of Transfers Control, Balance, Locomotion, Safety Awareness, and Self-Care.Pt. is now referred to [facility] for acute in-patient rehabilitation in order to maximize patient's fu nctional independence in activities of daily living, strength, ROM, and mobility.- Rehab Goal Patient has realistic goal of being discharged at assistance level 6-Adriane to reside at Home with Fam petr/Relatives. MDM/PLAN: - Physical Therapy Gait dysfunction - to improve, our physical therapists will perform initial evaluation of pt's statu s upon admission and devise an individualized program for Gait Training, and Wheel Chair mobility Inability to transfer - to improve, our physical therapists will perform initial evaluation of pt's status upon admission and devise an individualized program for Bed mobility Need for home safety evaluation - to improve, our physical therapists will perform initial evaluatio n of pt's status upon admission and devise an individualized program for Home Evaluation Need in caregiver upon discharge - to improve, our physical therapists will perform initial evaluati on of pt's status upon admission and devise an individualized program for Caregiver Training Edema - to improve, our physical therapists will perform initial evaluation of pt's status upon admi ssion and devise an individualized program for Elevation Training, and Lymphedema Therapy New precaution - to improve, our physical therapists will perform initial evaluation of pt's status upon admission and devise an individualized program for Patient precaution education Poor balance - to improve, our physical therapists will perform initial evaluation of pt's status up on admission and devise an individualized program for Balance Training Weakness - to improve, our physical therapists will perform initial evaluation of pt's status upon a dmission and devise an individualized program for Aquatic Therapy, Neuromuscular Reeducation, and Str engthening Achieving independence - to improve, our physical therapists will perform initial evaluation of pt's status upon admission and devise an individualized program for Community Reintegration Activities - Occupational Therapy ADL deficits - to improve, our occupation therapists will perform initial evaluation of pt's status upon admission and devise an individualized program for Bathing, Bed mobility, Community Reintegratio n, Cooking, Dressing, Eating, Fine Motor Skills, Grooming, Homemaking, Kitchen Mobility, Laundry, Pat ient Education, Safety Awareness, Splinting - Positioning, Transfers(Toilet, Tub, Shower), and Wheel Chair Management Need for career center advisor - to improve, our occupation therapists will perform initial evaluation of pt's status upon admission and devise an individualized program for Caregiver Training Weakness - to improve, our occupation therapists will perform initial evaluation of pt's status upon admission and devise an individualized program for Aquatic Therapy, Balance, Endurance, UE ROM, and UE strengthening - N/A See attached MAR (Medication Administration Record) - Diet Type Continue Regular - Diet - Liquid Texture Continue Regular - Tube Feed Continue N/A - Bladder care per protocol - Weight Bearing Precaution WBAT left LE WBAT left UE - Skin care per protocol - Diet - Solid Texture Continue Regular - Shower allowing shower for Dementia, TBI, Stroke, or others FUNCTIONAL STATUS: UPDATED AT WEEKLY TEAM CONFERENCE - Walking Same score based on distance walked: 1(<=50ft) FUNCTIONAL STATUS: - Self-Care A. Eating Ind B. Grooming Ind C. Bathing sup D. Dressing - Upper Adriane E. Dressing - Lower sup F. Toileting Adriane - Sphincter Control G. Bladder control Adriane H. Bowel control Adriane - Transfers Control I. Bed/Chair/Wheelchair sup J. Toilet sup K. Tub/Shower sup - Locomotion L. Walk/Wheelchair (B) sup M. Stairs Mary - Communication N. Comprehension (B) Adriane O. Expression (B) Adriane - Social Cognition P. Social Interaction Ind Q. Problem Solving Ind R. Memory Ind - Endurance Good - Balance Fair - Safety Awareness Good QI SCORES: - Self-Care A. Eating 05-Setup or clean-up assistance B. Oral hygiene 05-Setup or clean-up assistance C. Toileting hygiene 03-Partial/moderate assistance E. Shower/bathe self 04-Supervision or touching assistance F. Upper body dressing 05-Setup or clean-up assistance G. Lower body dressing 05-Setup or clean-up assistance H. Putting on/taking off footwear 04-Supervision or touching assistance - Mobility A. Roll left and right 04-Supervision or touching assistance B. Sit to lying 04-Supervision or touching assistance C. Lying to sitting on side of bed 04-Supervision or touching assistance D. Sit to stand 04-Supervision or touching assistance E. Chair/[id number] transfer 04-Supervision or touching assistance F. Toilet transfer 04-Supervision or touching assistance G. Car transfer 10-Not attempted due to environmental limitations I. Walk 10 feet 04-Supervision or touching assistance J. Walk 50 feet with two turns 88-Not attempted due to medical condition or safety concerns K. Walk 150 feet 88-Not attempted due to medical condition or safety concerns L. Walking 10 feet on uneven surfaces 88-Not attempted due to medical condition or safety concerns M. 1 step (curb) 88-Not attempted due to medical condition or safety concerns N. 4 steps 88-Not attempted due to medical condition or safety concerns O. 12 steps 88-Not attempted due to medical condition or safety concerns P. Picking up object 88-Not attempted due to medical condition or safety concerns - Bladder and Bowel Bladder continence 0-Always continent Bowel continence 0-Always continent - Endurance Poor - Balance Poor - Safety Awareness Poor CURRENT FUNC. DEFICITS: Self-Care, Mobility, Endurance, Balance, and Safety Awareness SIGNATURE PANEL: (CDT)
[2020-05-14] MEDS: carvediloL 25 MG TAB PO SCH (05:04)
[2020-05-14] MEDS: LEVOTHYROXINE SOD 0.125 MG TAB PO SCH (07:08)
[2020-05-14] MEDS: LOSARTAN POTASSIUM 50 MG TABLET PO SCH (07:08)
[2020-05-14 07:48] VITALS: BP 132/60; TEMP 97.7
[2020-05-14] MEDS ORDERED: ENOXAPARIN 30 MG/0.3 ML SQ SCH (08:00)
--- NOTE | 2020-05-14 17:06 | R.PN ---
PROGRESS NOTES ENCOUNTER DATE AND TIME: 05/14/2020 17:01 (CDT) NAME Lovely Roblero DATE OF : 1945 DATE OF ADMISSION: 05/09/2020 16:45 (CDT) acute cerebellar strokeCHIEF COMPLAINT: Cerebellar stroke SUBJECTIVE: Pt denied any depression. Pt denied any Shortness of Breath. CBC wit differential is normal. [place] Layer 1.42, prealbumin 21.2, UA is negative. COVID-19 is negative. Ambu lated 1000' with independence. Up and down 20 steps with independence. She is ready for discharge today. VITAL SIGNS Temperature: 97.7 F SBP/DBP: 132/60 Pulse: 58 Resp: 16 MEDICATION ALLERGIES: Aspirin ENVIRONMENTAL ALLERGIES: None Known - Substance Allergies None Known - Other Allergies None Known NURSING: - Shower allowing shower - Bladder care per protocol - Skin care per protocol PRECAUTIONS: - Weight Bearing Precaution WBAT left LE ACTIVITIES OOB only with supervision THERAPIES: - Occupational Therapy Cognitive Retraining. Visual Perceptual Training. - Dietary and Nutrition Adequate Nutrition. Nutritional Education. Nutritional Supplements. - Speech Therapy Cognitive Training. Expressive Language Skills. Memory Strategies. Receptive Language Skills. Speech Intelligibility Training. PHYSICAL EXAM - Gen Alert and awake Lying in bed No apparent distress Oriented to: person, time, and place - Skin No skin breakdown. Normacephalic - Eyes No abnormalities - ENMT No abnormalities - Neck No abnormalities - CVS RRR - Chest Clear - Resp No wheezing - Abd Soft - GI Non distended Deferred - No abnormalities - Ext No significant edema - MSK 4+/5 weakness in left upper and lower extremity - Neuro 4/5 strength left upper and lower extremities. - Psych No abnormalities ASSESSMENT: Pt. is a 75 yo Right-handed white female.On 05/08/2020 Pt. presented to [facility] with sudden onset of left-side weakness.On 05/08/2020 she was admitted to [facility] with diagnosis acute c erebellar stroke.Her impairment category is Stroke 01 - Left Body (Right Brain) (01.1).Pre-morbidly, Pt. was independent/mod-I in Transfers Control, Self-Care, and Locomotion; and she had good Balance, Safety Awareness, Sphincter Control, Communication, and Social Cognition.Currently, she has deficits of Transfers Control, Balance, Locomotion, Safety Awareness, and Self-Care.Pt. is now referred to [facility] for acute in-patient rehabilitation in order to maximize patient's fu nctional independence in activities of daily living, strength, ROM, and mobility.- Rehab Goal Patient has realistic goal of being discharged at assistance level 6-Adriane to reside at Home with Fam petr/Relatives. MDM/PLAN: - Physical Therapy Gait dysfunction - to improve, our physical therapists will perform initial evaluation of pt's statu s upon admission and devise an individualized program for Gait Training, and Wheel Chair mobility Inability to transfer - to improve, our physical therapists will perform initial evaluation of pt's status upon admission and devise an individualized program for Bed mobility Need for home safety evaluation - to improve, our physical therapists will perform initial evaluatio n of pt's status upon admission and devise an individualized program for Home Evaluation Need in caregiver upon discharge - to improve, our physical therapists will perform initial evaluati on of pt's status upon admission and devise an individualized program for Caregiver Training Edema - to improve, our physical therapists will perform initial evaluation of pt's status upon admi ssion and devise an individualized program for Elevation Training, and Lymphedema Therapy New precaution - to improve, our physical therapists will perform initial evaluation of pt's status upon admission and devise an individualized program for Patient precaution education Poor balance - to improve, our physical therapists will perform initial evaluation of pt's status up on admission and devise an individualized program for Balance Training Weakness - to improve, our physical therapists will perform initial evaluation of pt's status upon a dmission and devise an individualized program for Aquatic Therapy, Neuromuscular Reeducation, and Str engthening Achieving independence - to improve, our physical therapists will perform initial evaluation of pt's status upon admission and devise an individualized program for Community Reintegration Activities - Occupational Therapy ADL deficits - to improve, our occupation therapists will perform initial evaluation of pt's status upon admission and devise an individualized program for Bathing, Bed mobility, Community Reintegratio n, Cooking, Dressing, Eating, Fine Motor Skills, Grooming, Homemaking, Kitchen Mobility, Laundry, Pat ient Education, Safety Awareness, Splinting - Positioning, Transfers(Toilet, Tub, Shower), and Wheel Chair Management Need for health care assistant - to improve, our occupation therapists will perform initial evaluation of pt's status upon admission and devise an individualized program for Caregiver Training Weakness - to improve, our occupation therapists will perform initial evaluation of pt's status upon admission and devise an individualized program for Aquatic Therapy, Balance, Endurance, UE ROM, and UE strengthening - N/A See attached MAR (Medication Administration Record) - Diet Type Continue Regular - Diet - Liquid Texture Continue Regular - Tube Feed Continue N/A - Bladder care per protocol - Weight Bearing Precaution WBAT left LE WBAT left UE - Skin care per protocol - Diet - Solid Texture Continue Regular - Shower allowing shower for Dementia, TBI, Stroke, or others FUNCTIONAL STATUS: UPDATED AT WEEKLY TEAM CONFERENCE - Walking Same score based on distance walked: 1(<=50ft) FUNCTIONAL STATUS: - Self-Care A. Eating Ind B. Grooming Ind C. Bathing sup D. Dressing - Upper Adriane E. Dressing - Lower sup F. Toileting Adriane - Sphincter Control G. Bladder control Adriane H. Bowel control Adriane - Transfers Control I. Bed/Chair/Wheelchair sup J. Toilet sup K. Tub/Shower sup - Locomotion L. Walk/Wheelchair (B) sup M. Stairs Mary - Communication N. Comprehension (B) Adriane O. Expression (B) Adriane - Social Cognition P. Social Interaction Ind Q. Problem Solving Ind R. Memory Ind - Endurance Good - Balance Fair - Safety Awareness Good QI SCORES: - Self-Care A. Eating 05-Setup or clean-up assistance B. Oral hygiene 05-Setup or clean-up assistance C. Toileting hygiene 03-Partial/moderate assistance E. Shower/bathe self 04-Supervision or touching assistance F. Upper body dressing 05-Setup or clean-up assistance G. Lower body dressing 05-Setup or clean-up assistance H. Putting on/taking off footwear 04-Supervision or touching assistance - Mobility A. Roll left and right 04-Supervision or touching assistance B. Sit to lying 04-Supervision or touching assistance C. Lying to sitting on side of bed 04-Supervision or touching assistance D. Sit to stand 04-Supervision or touching assistance E. Chair/umk-be-geuiw transfer 04-Supervision or touching assistance F. Toilet transfer 04-Supervision or touching assistance G. Car transfer 10-Not attempted due to environmental limitations I. Walk 10 feet 04-Supervision or touching assistance J. Walk 50 feet with two turns 88-Not attempted due to medical condition or safety concerns K. Walk 150 feet 88-Not attempted due to medical condition or safety concerns L. Walking 10 feet on uneven surfaces 88-Not attempted due to medical condition or safety concerns M. 1 step (curb) 88-Not attempted due to medical condition or safety concerns N. 4 steps 88-Not attempted due to medical condition or safety concerns O. 12 steps 88-Not attempted due to medical condition or safety concerns P. Picking up object 88-Not attempted due to medical condition or safety concerns - Bladder and Bowel Bladder continence 0-Always continent Bowel continence 0-Always continent - Endurance Poor - Balance Poor - Safety Awareness Poor CURRENT FUNC. DEFICITS: Self-Care, Mobility, Endurance, Balance, and Safety Awareness SIGNATURE PANEL: (CDT)
--- NOTE | 2020-05-16 16:29 | R.DS ---
DISCHARGE SUMMARY FACILITY [facility] MR# [id number] NAME Lovely Roblero ADDRESS [address] [place] [address] PHONE DATE OF 1945 AGE 75 SSN# [id number] GENDER Female DEXTERITY Right-handed MARITAL STATUS RACE White ENCOUNTER PHYSICIAN Dr. Demar Cortez M.D. REFERRING DOCTOR DR. Susan Womack REFERRING FACILITY [facility] DISCHARGE DIAGNOSIS: - Stroke 01 - Left Body (Right Brain) (01.1) acute cerebellar stroke. DATE OF ADMISSION 05/09/2020 16:45 (CDT) MEDICATION ALLERGIES: Aspirin ENVIRONMENTAL ALLERGIES: None Known - Substance Allergies None Known - Other Allergies None Known DISCHARGE MEDICATIONS: - ContinueSee attached MAR (Medication Administration Record). NURSING: - Shower allowing shower - Bladder care per protocol - Skin care per protocol PRECAUTIONS: - Weight Bearing Precaution WBAT left LE ACTIVITIES OOB only with supervision THERAPIES: - Occupational Therapy Cognitive Retraining Visual Perceptual Training - Dietary and Nutrition Adequate Nutrition Nutritional Education Nutritional Supplements - Speech Therapy Cognitive Training Expressive Language Skills Memory Strategies Receptive Language Skills Speech Intelligibility Training HISTORY OF PRESENT ILLNESS: Pt. is a 75 yo Right-handed white female.On 05/08/2020 Pt. presented to [facility] with sudden onset of left-side weakness.On 05/08/2020 she was admitted to [facility] with diagnosis acute c erebellar stroke.Her impairment category is Stroke 01 - Left Body (Right Brain) (01.1).Pre-morbidly, Pt. was independent/mod-I in Transfers Control, Self-Care, and Locomotion; and she had good Balance, Safety Awareness, Sphincter Control, Communication, and Social Cognition.Currently, she has deficits of Transfers Control, Balance, Locomotion, Safety Awareness, and Self-Care.Pt. is now referred to [facility] for acute in-patient rehabilitation in order to maximize patient's fu nctional independence in activities of daily living, strength, ROM, and mobility.- Rehab Goal Patient has realistic goal of being discharged at assistance level 6-Adriane to reside at Home with Fam petr/Relatives. HOSPITAL COURSE: DIET - LIQUID TEXTURE: On 05/09/2020 Pt was upgraded to Regular Diet - Liquid Texture. DIET - SOLID TEXTURE: On 05/09/2020 Pt was upgraded to Regular Diet - Solid Texture. DIET TYPE: On 05/09/2020 Pt was upgraded to Regular Diet Type. TUBE FEED: On 05/09/2020 Pt was changed to N/A Tube Feed. WEIGHT BEARING PRECAUTION: On 05/09/2020 the following precautions were added for the patient: Weight Bearing Precaution - WBAT left LE. On 05/10/2020 the following precautions were added for the patient: Weight Bearing Precaution - WBAT left LE. On 05/12/2020 the following precautions were removed for the patient: Weight Bearing Precaution - WB AT left LE. On 05/13/2020 the following precautions were added for the patient: Weight Bearing Precaution - WBAT left LE. DISCHARGE PHYSICAL EXAM - Gen Alert and awake Lying in bed No apparent distress Oriented to: person, time, and place - Skin No skin breakdown. Normacephalic - Eyes No abnormalities - ENMT No abnormalities - Neck No abnormalities - CVS RRR - Chest Clear - Resp No wheezing - Abd Soft - GI Non distended Deferred - No abnormalities - Ext No significant edema - MSK 4+/5 weakness in left upper and lower extremity - Neuro 4/5 strength left upper and lower extremities. - Psych No abnormalities FUNCTIONAL STATUS: - Self-Care A. Eating 7-Ind B. Grooming 7-Ind C. Bathing 7-Ind D. Dressing - Upper 7-Ind E. Dressing - Lower 7-Ind F. Toileting 7-Ind - Sphincter Control G. Bladder control 7-Ind H. Bowel control 7-Ind - Transfers Control I. Bed/Chair/Wheelchair 7-Ind J. Toilet 7-Ind K. Tub/Shower 7-Ind - Locomotion L. Walk/Wheelchair (B) 7-Ind M. Stairs 7-Ind - Communication N. Comprehension (B) 7-Ind O. Expression (B) 7-Ind - Social Cognition P. Social Interaction 7-Ind Q. Problem Solving 7-Ind R. Memory 7-Ind - Endurance Good - Balance Good - Safety Awareness Good QI SCORES: - Self-Care A. Eating 05-Setup or clean-up assistance B. Oral hygiene 05-Setup or clean-up assistance C. Toileting hygiene 03-Partial/moderate assistance E. Shower/bathe self 04-Supervision or touching assistance F. Upper body dressing 05-Setup or clean-up assistance G. Lower body dressing 05-Setup or clean-up assistance H. Putting on/taking off footwear 04-Supervision or touching assistance - Mobility A. Roll left and right 04-Supervision or touching assistance B. Sit to lying 04-Supervision or touching assistance C. Lying to sitting on side of bed 04-Supervision or touching assistance D. Sit to stand 04-Supervision or touching assistance E. Chair/bzb-ya-nalwn transfer 04-Supervision or touching assistance F. Toilet transfer 04-Supervision or touching assistance G. Car transfer 10-Not attempted due to environmental limitations I. Walk 10 feet 04-Supervision or touching assistance J. Walk 50 feet with two turns 88-Not attempted due to medical condition or safety concerns K. Walk 150 feet 88-Not attempted due to medical condition or safety concerns L. Walking 10 feet on uneven surfaces 88-Not attempted due to medical condition or safety concerns M. 1 step (curb) 88-Not attempted due to medical condition or safety concerns N. 4 steps 88-Not attempted due to medical condition or safety concerns O. 12 steps 88-Not attempted due to medical condition or safety concerns P. Picking up object 88-Not attempted due to medical condition or safety concerns - Bladder and Bowel Bladder continence 0-Always continent Bowel continence 0-Always continent - Endurance Poor - Balance Poor - Safety Awareness Poor DISCHARGE INSTRUCTIONS: - N/A Lovenox 40 mg sq daily. DISCHARGE PLAN, FOLLOW UP CARE PROVISIONS: - Estimated Length of Stay (days) 17. - Consensus on plan Discharge plan has been discussed with primary caregiver. Patient/Family is in agreement with the mis n. Primary caregiver is in agreement with the plan. - Patient/Family Goals Return home independently. - Planned Living Setting Upon Discharge Home, to live with Family/Relatives. SIGNATURE PANEL: (CDT)
== END 2020-05-14 14:15 | disposition home or self-care (01) | DRG 57 ==
LOC: 5TH 18:45
PROVIDERS: ADMIT Psychiatry & Neurology Neurology with Special Qualifications in Child Neurology; ATTEND Psychiatry & Neurology Neurology with Special Qualifications in Child Neurology
DX: I69.354 Hemiplegia and hemiparesis following cerebral infarction affecting left non-dominant side (principal); I12.9 Hypertensive chronic kidney disease with stage 1 through stage 4 chronic kidney disease, or unspecified chronic kidney disease; N18.3 Chronic kidney disease, stage 3 (moderate); Z88.8 Allergy status to other drugs, medicaments and biological substances; Z90.49 Acquired absence of other specified parts of digestive tract; Z20.828 Contact with and (suspected) exposure to other viral communicable diseases
CPT/HCPCS: 36415; 80048; 81003; 81015; 82040; 83735; 84134; 85025; 87086; 87088; 97110; 97112; 97116; 97161; 97530; J1650; U0003

== ENCOUNTER 2023-09-16 07:55 | Inpatient (IN) | payer OTHER ==
[2023-09-16] MEDS ORDERED: POLYETHYL GLY 3350 17 GM/DOSE PO PRN (11:38)
--- OUTSIDE RECORDS SUMMARY | 2023-09-16 12:15 | XMS REPORT | Continuity of Care Document ---
Author Name Unknown Address [address] [place] [address] [facility] Address [address] [place] [address] Care Team Providers Care Water Reuse Program Manager Name Role Phone Junaid Vilalr MD Primary Care Physician + [phone] SANTIAGO VILLATORO Attending Clinician Unav ailSANTIAGO Monique Attending Clinician Unav EPHRAIM Arteaga Attending Clinician Unavailable ANDREW ASTUDILLO Attending Clinician UnavailRICK Gutierrez Attending Clinician Unavailable Syed Call Attending Clinician [phone] Damion FRANCISCO, Jordan Attending Clinician +[phone] Baba FRANCISCO, Rick Smith Attending Clinician [phone] OBI-SANTANA, JUNAID Attending Clinician Unavailab becky OBI-SANTANA, JUNAID Attending Clinician Unavailab le Doctor Unassigned, [place] Attending Clinician U greg Noland RN, Jennifer Sanchez Attending Clinician Unavailab СЕРГЕЙ eHrnández Attending Clinician Unavailable Pam Adler DO Attending Clinician [phone] Rossi FRANCISCO, Rick Fuentes Attending Clinician + [phone] Сергей Hi MD Attending Clinician [phone] Rayne FRANCISCO, Andrew Bentley. Attending Clinician + [phone], [facility] Attending Clinician Unavailable JANET GUZMÁN Attending Clinician UnavailJANET Foley Attending Clinician Unavailabl Pepe Garnett MD Attending Clinician + LEOLA TRISTAN Attending Clinician Unavailable LEOLA TRISTAN Attending Clinician Unavailable BRITNI TABARES Attending Clinician Unavailable PARRISH DUMONT Attending Clinician Brianna azael Salter MD, Prince Attending Clinician [phone] KALLIE MORRISON Attending Clinician Unavailabl Ephraim Tao MD Attending Clinician +[phone] HIRAM AKERS Attending Clinician Unavaila jonathon Jeffery MD, Carlee Attending Clinician + Gemini, General Cardiology Attending Clinician UnaBritni Randhawa Attending Clinician + MIKE GUZMAN Attending Clinician Unavailab Reji Barecnas MD Attending Clinician [phone] Miri FRANCISCO, Phyllis Martin Attending Clinician [phone] Giovanni FRANCISCO, Manjeet Dawn Attending Clinician +[phone] Mike Guzman MD Attending Clinician + [phone] Rayshawn FRANCISCO, Miguel A Cordova Attending Clinician [phone] Brittanie Giang CRNA Attending Clinician +[phone] Celia CUSTOMER QUALITY SPECIALIST, Hiram Attending Clinician SHIRLEY VILLALBA Attending Clinician Unavailable Fouzia Hollins MD Attending Clinician [phone] Shirley Villalba MD Attending Clinician [phone] Pattie SUGGS, Kathy Attending Clinician +[phone] Mike Jacobs MD Attending Clinician +[phone] Kandace SABA, Teresa Marvin Attending Clinician Unavail able Sammy Pham MD Attending Clinician +[phone] Billie Thompson CRNA Attending Clinician [phone] KATHY BLANKENSHIP Attending Clinician UnavailINES Maldonado Attending Clinician Fabio Ramires, [facility] Phone Attending Clinician Unavail able Tim ANGELA, Parrish Attending Clinician WILLARD BRAVO Attending Clinician Unavailable Sherice Mclaughlin DO Attending Clinician [phone] Willard Darden Attending Clinician [phone] Stella Leavitt MD Attending Clinician [phone] Jigar Nicole MD Attending Clinician +[phone] Oly Mcclelland MD Attending Clinician [phone] Junie MUSCOGEELeigh Attending Clinician + [phone] PAM ADLER Attending Clinician Unavailab Mecca Lawrence LVN Attending Clinician Unavailab SENG Dorantes Attending Clinician Unavailab SENG Dorantes Attending Clinician Unavailab STELLA Reddy Attending Clinician UnavailARIADNE Gilbert Attending Clinician Unavailable GHAZALA ZARATE Attending Clinician Unavailable Ghazala Zarate DO Attending Clinician +[phone] Rodrigo Bailey MD Attending Clinician [phone] Venecia Malhotra MD Attending Clinician +[phone] Garcia Hansen MD Attending Clinician Nurse, [facility] Attending Clinician Un available Unknown, Attending Attending Clinician Unavailab CATALINO Reddy Attending Clinician Unavailable Provider, [facility] Attending Clinician Unavailable UNKNOWN, ATTENDING Attending Clinician Unavailab GARY Lopez Attending Clinician Unavaila jonathon Franco ACNP, Gary Attending Clinician + [phone] Isabell CUSTOMER QUALITY SPECIALIST, Soledad Smith Attending Clinician + [phone] SOLEDAD BULLOCK Attending Clinician Unavailab HEATHER John Attending Clinician Unavailabl china LockPetey CUSTOMER QUALITY SPECIALIST, Heather Attending Clinician +[phone] Ben Bernal MD Attending Clinician +[phone] KESHIA HERNANDEZ Attending Clinician Unavailable Keshia Redmond Attending Clinician +[phone] Charito Arevalo RN Attending Clinician Unavailable Only, Ang Db Test Attending Clinician Unavailsixto Mantilla CUSTOMER QUALITY SPECIALIST, Brett Attending Clinician [phone] BRETT MANTILLA Attending Clinician Unavailable Nurse, [facility] Immunization Attending Clinician Unavailable Earl Tolbert DO Attending Clinician [phone] EARL TOLBERT Attending Clinician Unavail able CARLEE JEFFERY Attending Clinician Unavailable BEN BERNAL Attending Clinician Unava ilRAISA Romeo Attending Clinician Unavailable RAMYA FORD Attending Clinician Unavailable SENIA DIXON Attending Clinician Unavaila SENIA Pemberton Attending Clinician Unavaila Susan Cassidy MD Attending Clinician [phone] CHAKA UMAÑA Attending Clinician Unavailable JORDAN RIZVI Admitting Clinician Unavailable СЕРГЕЙ HI Admitting Clinician Unavailable Сергей Hi MD Admitting Clinician [phone] MANJEET ERICKSON Admitting Clinician Unavailable Manjeet Erickson MD Admitting Clinician +[phone] SHIRLEY VILLALBA Admitting Clinician Unavailable Shirley Villalba MD Admitting Clinician +[phone] Santiago Villatoro MD Admitting Clinician + JIGAR NICOLE Admitting Clinician Unavailable BRITNI TABARES Admitting Clinician Unavailable GHAZALA ZARATE Admitting Clinician Unavailable Ghazala Zarate DO Admitting Clinician [phone] KESHIA HERNANDEZ Admitting Clinician Unavailable Susan Womack MD Admitting Clinician CHAKA UMAÑA Admitting Clinician Unavailable Payers Payer Name Policy Type Policy Number Effective Date Expirati on Date Source MEDICARE PART A \\T\\ B [id number] 2011 00:00:00 [employer] [id number] 2020 00:00:00 2021 00:00:00 Problems Condition Name Condition Details Condition Category Status Onset Date Resolution Date Last Treatment Date Treating Clinician Comments Source Aspiration pneumonia, unspecifie d aspiration pneumonia type, unspecifie d laterality , unspecifie d part of lung Aspiration pneumonia, unspecifie d aspiration pneumonia type, unspecifie d laterality , unspecifie d part of lung Disease Active - 00:00: 00 [facility] Physical deconditio daquan Physical deconditio daquan Disease Active - 00:00: 00 [facility] Pneumonia of both lower lobes due to infectious organism Pneumonia of both lower lobes due to infectious organism Disease Active 2022-08 2- 00:00: 00 [facility] Aortic stenosis Aortic stenosis Disease Active 2022-08 2- 00:00: 00 [facility] Pericardia l effusion Pericardia l effusion Disease Active 2022-08 2- 00:00: 00 [facility] Intractabl e vomiting with nausea Intractabl e vomiting with nausea Disease Active 2022-08 0-10 00:00: 00 [facility] S/P ablation of atrial fibrillati on S/P ablation of atrial fibrillati on Disease Active 2022-08 0-05 00:00: 00 [facility] Persistent atrial fibrillati on Persistent atrial fibrillati on Disease Active 9-21 00:00: 00 [facility] Hypertensi ve urgency Hypertensi ve urgency Disease Active 8-24 00:00: 00 [facility] Chest pain, unspecifie d type Chest pain, unspecifie d type Disease Active 0 8-23 00:00: 00 [facility] At risk for falls At risk for falls Disease Active 7-10 00:00: 00 [facility] Unspecifie d abnormalit ies of gait and mobility Unspecifie d abnormalit ies of gait and mobility Disease Active 7-10 00:00: 00 [facility] Dyspnea, unspecifie d type Dyspnea, unspecifie d type Disease Active 627 00:00: 00 [facility] Acute on chronic diastolic congestive heart failure Acute on chronic diastolic congestive heart failure Disease Active 627 00:00: 00 [facility] Atrial flutter with rapid ventricula r response Atrial flutter with rapid ventricula r response Disease Active 6-05 00:00: 00 [facility] Other chest pain Other chest pain Disease Active 6-05 00:00: 00 [facility] STEPHY (acute kidney injury) STEPHY (acute kidney injury) Disease Active 6-05 00:00: 00 [facility] Elevated brain natriureti c peptide (BNP) level Elevated brain natriureti c peptide (BNP) level Disease Active 6-05 00:00: 00 [facility] Atrial fibrillati on with rapid ventricula r response Atrial fibrillati on with rapid ventricula r response Disease Active 6-04 00:00: 00 [facility] Intractabl e nausea and vomiting Intractabl e nausea and vomiting Disease Active 0 4-21 00:00: 00 [facility] Diverticul itis Diverticul itis Disease Active 4-11 00:00: 00 [facility] Essential hypertensi on Essential hypertensi on Disease Active 0 2-22 00:00: 00 [facility] Stroke Stroke Disease Active 2019-08 0-25 00:00: 00 [facility] Ataxia Ataxia Disease Active 9-25 00:00: 00 [facility] 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 Added automatic ally from request for surgery [id number] [facility] Intestinal angina Intestinal angina Disease Active 12-31 00:00: 00 [facility] Generalize d abdominal pain Generalize d abdominal pain Disease Active 12-04 00:00: 00 [facility] Renal artery stenosis Renal artery stenosis Disease Active 11-16 00:00: 00 [facility] CKD (chronic kidney disease) stage 3, GFR 30-59 ml/min CKD (chronic kidney disease) stage 3, GFR 30-59 ml/min Disease Active 09-22 00:00: 00 [facility] Secondary hypertensi on Secondary hypertensi on Disease Active 09-21 00:00: 00 [facility] (HFpEF) heart failure with preserved ejection fraction (HFpEF) heart failure with preserved ejection fraction Disease Active 09-21 00:00: 00 [facility] Hypothyroi dism Hypothyroi dism Disease Active 04-11 00:00: 00 Overview: Formattin g of this note might be different from the original. ICD10 Diagnosis Term Epic [employer] [facility] HLD (hyperlipi demia) HLD (hyperlipi demia) Disease Active 04-11 00:00: 00 Overview: Formattin g of this note might be different from the original. ICD10 Diagnosis Term Epic [employer] [facility] Allergies, Adverse Reactions, Alerts Allergy Name Allergy Type Status Severity Reaction(s) Onset Date Inactive Date Treating Clinician Comments Source PREDNISO NE DRUG INGREDI Active Other-Cmnt 2022-08 00:00: 00 [facility] Predniso ne Propensi ty to adverse reaction s Active Other - See comments 2022-08 00:00: 00 AFIB [facility] Amoxicil jose luis Propensi ty to adverse reaction s to drug Active Nausea and/or Vomiting 12-14 00:00: 00 Patient states not allergic anymore. "Took it once and got sick, haven't gotten sick since then." [facility] AMOXICIL JOSE LUIS DRUG INGREDI Active Low N/V 12-14 00:00: 00 [facility] NO KNOWN ALLERGIE S Drug Class Active [facility] Family History Family Member Diagnosis Comments Start Date Stop Date Sourc e Natural father Aneurysm Unive [facility] Natural mother Emphysema Unive [facility] Social History Social Habit Start Date Stop Date Quantity Comments Source History SDOH Alcohol Std Drinks [facility] History SDOH Alcohol Binge [facility] History SDOH Social Connections Get Together [facility] History SDOH Social Connections Muslim [facility] History SDOH Social Connections Membership [facility] History SDOH Social Connections Meetings [facility] Gender identity [facility] intake 2023-08-29 00:00:00 2023-08-29 00:00:00 0 /d [facility] Education - What is the highest level of school you have completed or the highest degree you have received? 2023-08-12 00:00:00 2023-08-12 00:00:00 High school graduate [facility] History of Social function 2023-06-01 00:00:00 2023-06-01 00:00:00 [facility] History SDOH Alcohol Frequency 2023-02-09 00:00:00 2023-02-09 00:00:00 1 [facility] History SDOH Social Connections Phone 2023-02-09 00:00:00 2023-02-09 00:00:00 5 [facility] History SDOH Social Connections Living 2023-02-09 00:00:00 2023-02-09 00:00:00 4 [facility] History SDOH Physical Activity DPW 2023-02-09 00:00:00 2023-02-09 00:00:00 0 [facility] History SDOH Physical Activity MPS 2023-02-09 00:00:00 2023-02-09 00:00:00 0 [facility] History SDOH Financial 2023-02-09 00:00:00 2023-02-09 00:00:00 4 [facility] History SDOH Food Worry 2023-02-09 00:00:00 2023-02-09 00:00:00 1 [facility] History SDOH Food Scarcity 2023-02-09 00:00:00 2023-02-09 00:00:00 1 [facility] History SDOH Transport Med 2023-02-09 00:00:00 2023-02-09 00:00:00 2 [facility] History SDOH Transport Non-Med 2023-02-09 00:00:00 2023-02-09 00:00:00 2 [facility] History SDOH Housing Unable to Pay 2023-02-09 00:00:00 2023-02-09 00:00:00 2 [facility] History SDOH Housing Places Lived 2023-02-09 00:00:00 2023-02-09 00:00:00 1 [facility] History SDOH Housing Homeless Last Year 2023-02-09 00:00:00 2023-02-09 00:00:00 2 [facility] Tobacco use and exposure 2023-02-08 00:00:00 2023-02-08 00:00:00 Smokeless tobacco non-user [facility] Exposure to SARS-CoV-2 (event) 2022-10-16 00:00:00 2022-10-26 15:47:00 Not sure [facility] Sex Assigned At 1945 00:00:00 1945 00:00:00 [facility] Smoking Status Start Date Stop Date Source Never smoked tobacco [facility] Medications Ordered Medication Name Filled Medication Name Start Date Stop Date Current Medication? Ordering Clinician Indication Dosage Frequency Signature (SIG) Comments Components Source artificial tears(hypro mellose) (ISOPTO-TEA RS) 0.5 % ophthalmic drops 1 Drop 09-16 11:45: 12 Yes 1[drp] 1 Drop, Both Eyes, PRN, Starting on Tue09/16/23 at 0545, Until Discontinu ed, Routine, Dry eyes [facility] clopidogreL (PLAVIX) 75 mg tablet 09-16 10:46: 00 Yes 75mg Take 1 tablet by mouth in the morning. [facility] metoprolol tartrate 50 mg tablet 09-16 07:06: 54 09-16 00:00 :00 No 50mg Take 1 tablet by mouth in the morning and 1 tablet in the evening. [facility] atorvastati n 40 mg tablet 09-16 00:00: 00 Yes [id number] 40mg Take 1 tablet by mouth every evening. [facility] furosemide 40 mg tablet 09-16 00:00: 00 Yes 40mg Take 1 tablet by mouth in the morning. [facility] metoprolol tartrate 25 mg tablet 09-16 00:00: 00 Yes 12.5mg Take 0.5 tablets by mouth in the morning and 0.5 tablets in the evening. [facility] pantoprazol e 40 mg EC tablet 09-16 00:00: 00 Yes 40mg Take 1 tablet by mouth in the morning. [facility] apixaban 2.5 mg tablet 09-16 00:00: 00 Yes 2.5mg Take 1 tablet by mouth in the morning and 1 tablet in the evening. [facility] melatonin 3 mg tablet 09-16 00:00: 00 Yes 3mg Take 1 tablet by mouth at bedtime. [facility] mirtazapine 15 mg tablet 09-16 00:00: 00 Yes 15mg Take 1 tablet by mouth at bedtime. [facility] polyethylen e glycol 3350 17 gram powder 09-16 00:00: 00 Yes 17g Take 1 Packet by mouth in the morning. [facility] levalbutero l (XOPENEX) nebulizer solution 1.25 mg 09-15 20:15: 00 Yes 1.25mg 1.25 mg, Inhalation , TIDPRN, Starting on Lilo 09/15/23 at 1415, Until Discontinu ed, Routine, Wheezing, Shortness of Breath [facility] glycerin/mi neral oil (AGLO ENEMA) (COMPOUNDED ) Enem 225 mL 09-14 19:15: 00 09-14 19:18 :00 No 225mL 225 mL, Rectal, ONCE, 1 dose, On Tue09/14/23 at 1315, Routine [facility] bisacodyL (DULCOLAX) suppository 10 mg 09-14 16:41: 53 Yes 10mg 10 mg, Rectal, QDAILYPRN, Starting on Tue09/14/23 at 1041, Until Discontinu ed, Routine, Constipati on [facility] mirtazapine (REMERON) tablet 15 mg 09-14 03:00: 00 Yes 15mg 15 mg, Oral, QHS, First dose on Tue09/13/23 at 2100, Until Discontinu ed, Routine [facility] HYDROcodone -acetaminop hen (HYCET) 7.5-325 mg/15 mL solution 7.5 mg 09-14 02:07: 49 Yes 7.5mg 7.5 mg, Oral, TIDPRN, Starting on Tue09/13/23 at 2007, Until Discontinu ed, Routine, Pain (scale 7-10) [facility] magnesium sulfate in water 2 gram/50 mL (4 %) infusion 2 g 09-11 14:45: 00 09-11 15:58 :00 No 2g 2 g, IV Piggyback, Administer over 60 Minutes, ONCE, 1 dose, On Tue09/11/23 at 0845, KRISTOPHER [facility] furosemide (LASIX) tablet 40 mg 09-10 15:00: 00 Yes 40mg 40 mg, Oral, DAILY, First dose on Tue09/10/23 at 0900, Until Discontinu ed, Routine [facility] polyethylen e glycol 3350 powder 17 g 09-10 00:45: 00 Yes 17g 17 g, Oral, DAILY, First dose on Tue09/09/23 at 1845, Until Discontinu ed, Routine [facility] FENTanyl PF (SUBLIMAZE (PF)) injection 25 mcg 09-09 23:00: 00 09-09 23:00 :00 No 25ug 25 mcg, Slow IV Push, ONCE, 1 dose, On Tue09/09/23 at 1700, STAT [facility] maalox:diph enhydrAMINE :lidocaine 2 % viscous 1:1:1 ([facility]) oral suspension 15 mL 09-09 15:30: 00 09-09 17:06 :00 No 15mL 15 mL, Oral, ONCE, 1 dose, On Tue09/09/23 at 0930, [facility] (LOPRESSOR) tablet 12.5 mg 09-09 02:00: 00 Yes 12.5mg 12.5 mg, Oral, BID, First dose (after last modificati on) on Tue09/08/23 at 2000, Until Discontinu ed, Routine [facility] morpHINE (2 mg/mL) injection 2 mg 09-08 20:55: 58 09-10 18:08 :00 No 2mg 2 mg, Slow IV Push, Q4HPRN, 4 doses, Starting on Tue09/08/23 at 1455, Until Discontinu ed, Routine, Pain (scale 4-6) [facility] lidocaine-e pinephrine (XYLOCAINE WITH EPINEPHRINE ) 1 %-1:100,000 injection 10 mL 09-08 20:45: 00 09-08 20:45 :00 No 10mL 10 mL, Intraderma l, ONCE, 1 dose, On Tue09/08/23 at 1445, Routine [facility] morpHINE (2 mg/mL) injection 2 mg 09-08 17:45: 00 09-08 17:45 :00 No 2mg 2 mg, Slow IV Push, ONCE NOW, 1 dose, On Tue09/08/23 at 1145, Routine [facility] doxycycline hyclate (Vibramycin ) capsule 100 mg 09-08 17:15: 00 09-10 11:59 :00 No 100mg 100 mg, Oral, Q12HA2, 4 doses, First dose on Tue09/08/23 at 1115, Last dose on Tue09/09/23 at 1800, Routine
Reason for Anti-Infec tive: Empiric Therapy for Suspected Infection< br>Empiric Therapy Site: Skin / Soft tissue
Duration of therapy: 5 days [facility] apixaban (ELIQUIS) tablet 2.5 mg 09-08 16:00: 00 Yes 2.5mg 2.5 mg, Oral, BID, First dose on Tue09/08/23 at 1000, Until Discontinu ed, Routine
Indicatio ns: Non-Valvul ar Atrial Fibrillati on [facility] metoprolol tartrate (LOPRESSOR) tablet 25 mg 09-08 02:00: 00 09-08 17:59 :06 No 25mg 25 mg, Oral, BID, First dose (after last modificati on) on Tue09/07/23 at 2000, Until Discontinu ed, Routine [facility] ketamine (KETALAR) injection 60 mg 09-07 18:00: 00 09-07 17:52 :00 No 60mg 60 mg, Slow IV Push, ONCE, 1 dose, On Tue09/07/23 at 1200, Routine [facility] midazolam (VERSED) injection 1 mg 09-07 18:00: 00 09-07 17:51 :00 No 1mg 1 mg, IV Push, ONCE, 1 dose, On Tue09/07/23 at 1200, Routine [facility] magnesium sulfate in water 2 gram/50 mL (4 %) infusion 2 g 09-06 20:45: 00 09-06 22:15 :00 No 2g 2 g, IV Piggyback, Administer over 120 Minutes, ONCE, 1 dose, On Tue09/06/23 at 1445, Routine [facility] melatonin (MELATIN) tablet 3 mg 09-06 03:00: 00 Yes 3mg 3 mg, Oral, QHS, First dose on Tue09/05/23 at 2100, Until Discontinu ed, Routine [facility] KCL (KLOR-CON M20) tablet 20 mEq 09-05 21:30: 00 09-05 22:52 :00 No 20meq 20 mEq, Oral, ONCE, 1 dose, On Tue09/05/23 at 1530, Routine [facility] NaCl 0.9% (NS) injection 10 mL 09-05 18:56: 26 Yes 10mL 10 mL, Slow IV Push, PRN, Starting on Tue09/05/23 at 1256, Until Discontinu ed, Routine, line maintenanc e [facility] lidocaine 1% (PF) (XYLOCAINE) injection 5 mL 09-05 18:56: 26 Yes 5mL 5 mL, Subcutaneo us, PRN, Starting on Tue09/05/23 at 1256, Until Discontinu ed, Routine, Local anesthesia [facility] megestroL (MEGACE) 400 mg/10 mL (40 mg/mL) suspension 400 mg 09-05 18:30: 00 09-12 15:48 :14 No 400mg 400 mg, Oral, DAILY, First dose (after last modificati on) on Tue09/05/23 at 1230, Until Discontinu ed, Routine [facility] furosemide (LASIX) injection 40 mg 09-05 18:00: 00 09-09 21:28 :16 No 40mg 40 mg, Slow IV Push, DAILY, First dose on Tue09/05/23 at 1200, Until Discontinu ed, Routine [facility] heparin 25,000 Units/250 mL (Premixed Bag) in 0.45 % NS 09-05 17:50: 00 09-08 15:49 :39 No 0U/h 0-1,600 Units/hr (0-16 mL/hr), IV Infusion, TITRATE, Parameters in Admin. Instr., Starting on Tue09/05/23 at 1150
In itiate dosing:&nb sp; & nbsp;&nbsp ; -Patient 83 kg or under: 650 Units/hr (Calculate d dose at 12 units/kg/h r) &n bsp; &nbs p; -Patient over 83 k,000 units/hr&n bsp;DO NOT Exceed the MAXIMUM 1,000 units/hr for initiation of heparin drip.&nbsp ; CAU TION - If LMWH given in ER, AVOID bolus and start next dose/drip 12 hrs after ER dosage.&nb sp; M ust program rate using programmab le infusion pump.&nbsp ; Marivel ck with the ordering provider first prior to any administra tion should the patient be on existing/a dditional anticoagul ant therapy.&n bsp; Range, Dosing and Testing&nb sp; - aPTT < 40: & nbsp;Bolus 3000 units, increase rate 100 units/hr.& nbsp;- aPTT 40-49:&nbs p; In crease rate 50 units/hr. - aPTT 50-70:&nbs p; NO CHANGE.&nb sp;- aPTT 71-85:&nbs p; De crease rate 50 units/hr.& nbsp;- aPTT 86-100:&nb sp; H old 30 minutes, decrease rate 100 units/hr.& nbsp;- aPTT 101-150:&n bsp; Hold 60 minutes, decrease rate 150 units/hr.& nbsp;- aPTT > 150: Hold 60 minutes, decrease rate 300 units/hr.& nbsp;&nbsp ;Check aPTT 6 hours after initiation , then Q6H after every change, aPTT Q12H once therapeuti c levels are reached.&n bsp; DO NOT ADJUST INITIAL BOLUS OR INITIAL INFUSION RATE.
[facility] metoclopram ramonita HCl (REGLAN) injection 10 mg 09-04 17:32: 56 09-06 17:05 :33 No 10mg 10 mg, Slow IV Push, Q6HPRN, Starting on 09/04/23 at 1132, Until Tu09/06/23 at 1105, Routine, Nausea and Vomiting (N/V), 2nd line [facility] [id number]-LR IV infusion 1,000 mL 09-04 15:30: 00 09-06 15:57 :54 No 1000mL at 60 mL/hr, IV Infusion, CONTINUOUS , Starting on Tue09/04/23 at 0930, Until Tue09/06/23 at 0957, Routine [facility] HYDROcodone -acetaminop hen (HYCET) 7.5-325 mg/15 mL solution 7.5 mg 09-04 06:00: 00 09-13 15:47 :23 No 7.5mg 7.5 mg, Oral, TIDPRN, Starting on Tue09/04/23 at 0000, Until Tue09/13/23 at 0947, Routine, Pain (scale 7-10) [facility] HYDROcodone -acetaminop hen (HYCET) 7.5-325 mg/15 mL solution 7.5 mg 09-04 05:00: 00 09-04 05:07 :25 No 7.5mg 7.5 mg, Oral, TID, First dose on Tue09/03/23 at 2300, Until Discontinu ed, Routine [facility] doxycycline (VIBRAMYCIN ) 100 mg in NaCl 0.9% (NS) 100 mL MINI-BAG 09-03 17:15: 00 09-08 17:04 :58 No 100mg 100 mg, IV Piggyback, Q12H ABX, 14 doses, First dose on Tue09/03/23 at 1115, Last dose on Tue09/09/23 at 2315, Administer over 60 Minutes, 100 mL
Reas on for Anti-Infec tive: Empiric Therapy for Suspected Infection< br>Empiric Therapy Site: Skin / Soft tissue
Duration of therapy: 5 days [facility] furosemide (LASIX) injection 20 mg 09-03 14:00: 00 09-05 01:25 :50 No 20mg 20 mg, Slow IV Push, Q12H, First dose on Tue09/03/23 at 0800, Until Discontinu ed, Routine [facility] proMETHazin e (PHENERGAN) 12.5 mg in NaCl 0.9% (NS) 50 mL IV piggyback 09-02 20:17: 59 09-03 15:45 :30 No 12.5mg 12.5 mg, IV Piggyback, at 200 mL/hr Administer over 15 Minutes, Q4HPRN, Starting on Tue09/02/23 at 1417, Until 09/03/23 at 0945, Routine, Nausea and Vomiting (N/V) [facility] codeine-gua ifenesin (ROBITUSSIN AC) 10-100 mg/5 mL oral solution 10 mL 09-02 07:23: 11 09-03 15:45 :30 No 10mL 10 mL, Oral, Q6HPRN, Starting on Tue09/02/23 at 0123, Until 09/03/23 at 0945, Routine, Cough [facility] phenoL (SORE THROAT (PHENOL)) 1.4 % spray bottle 1 [place] 09-02 04:03: 02 Yes 1{spray } 1 [place], Oral, PRN, Starting on Tue09/01/23 at 2203, Until Discontinu ed, Routine, Sore throat [facility] NaCl 0.9% (NS) bolus infusion 500 mL 09-01 11:45: 00 09-02 01:29 :00 No 500mL at 999 mL/hr, 500 mL, IV Piggyback, ONCE, 1 dose, On Tue09/01/23 at 0545, KRISTOPHER [facility] traZODone (DESYREL) tablet 50 mg 09-01 08:45: 00 09-13 15:47 :34 No 50mg 50 mg, Oral, QHS, First dose on Tue09/01/23 at 0245, Until Discontinu ed, Routine [facility] acetylcyste ine (MUCOMYST) 200 mg/mL (20 %) inhalation solution 800 mg 09-01 08:39: 14 09-02 16:27 :28 No 4mL 800 mg (4 mL), Inhalation , Q6HPRN, Starting on [place] 09/01/23 at 0239, Until Tue09/02/23 at 1027, Routine, Congestion [facility] amiodarone (PACERONE) tablet 200 mg 08-31 22:30: 00 Yes 200mg 200 mg, Oral, DAILY, First dose (after last modificati on) on Tue08/31/23 at 1630, Until Discontinu ed, Routine [facility] amiodarone (CORDARONE) 900 mg in D5W 500 mL infusion 08-31 21:15: 00 09-01 01:43 :45 No .5mg/mi n 0.5 mg/min (16.6667 mL/hr, rounded to 16.67 mL/hr), IV Infusion, CONTINUOUS , Starting on Tue08/31/23 at 1515, For 1 day
All amiodarone infusions must be administer ed using a 0.22 micron in line filter. Administer via central line if available. Amiodarone infusions with concentrat ions > 2 mg/mL must be administer ed via central line.
[facility] acetylcyste ine (MUCOMYST) 200 mg/mL (20 %) inhalation solution 800 mg 08-31 20:00: 00 09-03 13:16 :12 No 4mL 800 mg (4 mL), Inhalation , TID, 9 doses, First dose on Tue08/31/23 at 1400, Last dose on Tue09/03/23 at 0800, Routine [facility] HEPARIN SODIUM (PORCINE) 1,000 UNIT/ML BOLUS ACS ORDER SET 08-31 13:00: 00 08-31 14:31 :00 No 60U/kg 3,330 Units (60 Units/kg ?55.5 kg), IV Push, ONCE, 1 dose, On Tue08/31/23 at 0700, KRISTOPHER [facility] heparin 25,000 Units/250 mL (Premixed Bag) in 0.45 % NS 08-31 12:52: 15 09-03 13:56 :00 No 0U/h 0-1,600 Units/hr (0-16 mL/hr), IV Infusion, TITRATE, Parameters in Admin. Instr., Starting on Tue08/31/23 at 0652
In itiate dosing:&nb sp; & nbsp;&nbsp ; -Patient 83 kg or under: 650 Units/hr (Calculate d dose at 12 units/kg/h r) &n bsp; &nbs p; -Patient over 83 k,000 units/hr&n bsp;DO NOT Exceed the MAXIMUM 1,000 units/hr for initiation of heparin drip.&nbsp ; CAU TION - If LMWH given in ER, AVOID bolus and start next dose/drip 12 hrs after ER dosage.&nb sp; M ust program rate using programmab le infusion pump.&nbsp ; Marivel ck with the ordering provider first prior to any administra tion should the patient be on existing/a dditional anticoagul ant therapy.&n bsp; Range, Dosing and Testing&nb sp; - aPTT < 40: & nbsp;Bolus 3000 units, increase rate 100 units/hr.& nbsp;- aPTT 40-49:&nbs p; In crease rate 50 units/hr. - aPTT 50-70:&nbs p; NO CHANGE.&nb sp;- aPTT 71-85:&nbs p; De crease rate 50 units/hr.& nbsp;- aPTT 86-100:&nb sp; H old 30 minutes, decrease rate 100 units/hr.& nbsp;- aPTT 101-150:&n bsp; Hold 60 minutes, decrease rate 150 units/hr.& nbsp;- aPTT > 150: Hold 60 minutes, decrease rate 300 units/hr.& nbsp;&nbsp ;Check aPTT 6 hours after initiation , then Q6H after every change, aPTT Q12H once therapeuti c levels are reached.&n bsp; DO NOT ADJUST INITIAL BOLUS OR INITIAL INFUSION RATE.
[facility] fluticasone propionate 50 mcg/actuati on nasal spray 2 [place] 08-31 04:00: 00 Yes 2{spray } 2 [place], Nasal, DAILY, First dose on Tue08/30/23 at 2200, Until Discontinu ed, Routine [facility] amiodarone (CORDARONE) 900 mg in D5W 500 mL infusion 08-31 04:00: 00 08-31 21:13 :43 No .5mg/mi n 0.5 mg/min (16.6667 mL/hr, rounded to 16.67 mL/hr), IV Infusion, CONTINUOUS , Starting on Tue08/30/23 at 2200, For 18 hours
A ll amiodarone infusions must be administer ed using a 0.22 micron in line filter. Administer via central line if available. Amiodarone infusions with concentrat ions > 2 mg/mL must be administer ed via central line.
[facility] amiodarone (CORDARONE) 900 mg in D5W 500 mL infusion 08-30 22:00: 00 08-31 03:59 :00 No 1mg/min 1 mg/min (33.3333 mL/hr, rounded to 33.33 mL/hr), IV Infusion, CONTINUOUS , Starting on Tue08/30/23 at 1600, For 6 hours
A ll amiodarone infusions must be administer ed using a 0.22 micron in line filter. Administer via central line if available. Amiodarone infusions with concentrat ions > 2 mg/mL must be administer ed via central line.
[facility] levalbutero l (XOPENEX) nebulizer solution 1.25 mg 08-30 20:00: 00 09-15 20:04 :46 No 1.25mg 1.25 mg, Inhalation , TID, First dose on Tue08/30/23 at 1400, Until Discontinu ed, Routine [facility] cefTRIAXone (ROCEPHIN) 1,000 mg in NaCl 0.9% (NS) 100 mL MINI-BAG 08-30 15:30: 00 09-03 15:57 :00 No 1000mg 1,000 mg, IV Piggyback, Q24H ABX, 5 doses, First dose on Tue08/30/23 at 0930, Last dose on Tue09/03/23 at 0930, Administer over 30 Minutes, 100 mL
Reas on for Anti-Infec tive: Documented Infection< br>Documen rachel Infection Site: Respirator y
Durat ion of Therapy: 7 days [facility] NaCl 0.9% (NS) IV infusion 1,000 mL 08-30 15:30: 00 08-31 23:38 :51 No 1000mL at 75 mL/hr, IV Infusion, CONTINUOUS , Starting on Tue08/30/23 at 0930, Until Tue08/31/23 at 1738, Routine [facility] amiodarone (PACERONE) tablet 200 mg 08-30 15:00: 00 08-30 21:18 :29 No 200mg 200 mg, Oral, DAILY, First dose (after last modificati on) on Tue08/30/23 at 0900, Until Discontinu ed, Routine [facility] levothyroxi ne (SYNTHROID) tablet 88 mcg 08-30 12:00: 00 Yes 88ug 88 mcg, Oral, QAM-0600, First dose on Tue08/30/23 at 0600, Until Discontinu ed, Routine [facility] morpHINE (4 mg/mL) injection 4 mg 08-30 06:00: 00 08-30 14:23 :46 No 4mg 4 mg, Slow IV Push, Q4HPRN, Starting on Tue08/30/23 at 0000, Until Tue08/30/23 at 0823, Routine, Pain (scale 7-10) [facility] morpHINE (2 mg/mL) injection 2 mg 08-30 05:15: 00 08-30 04:38 :00 No 2mg 2 mg, Slow IV Push, ONCE NOW, 1 dose, On Tue08/29/23 at 2315, KRISTOPHER [facility] morpHINE (2 mg/mL) injection 2 mg 08-30 02:04: 45 08-30 04:30 :46 No 2mg 2 mg, Slow IV Push, Q4HPRN, Starting on Tue08/29/23 at 2004, Until Tue08/29/23 at 2230, Routine, Pain (scale 7-10) [facility] acetaminoph en (TYLENOL) tablet 650 mg 08-30 00:45: 31 Yes 650mg 650 mg, Oral, Q4HPRN, Starting on Tue08/29/23 at 1845, Until Discontinu ed, Routine, Pain (scale 1-3) [facility] atorvastati n (LIPITOR) tablet 40 mg 08-29 23:00: 00 Yes 40mg 40 mg, Oral, QPM, First dose on Tue08/29/23 at 1700, Until Discontinu ed, Routine [facility] metoprolol tartrate (LOPRESSOR) tablet 50 mg 08-29 20:00: 00 09-07 17:53 :50 No 50mg 50 mg, Oral, TID, First dose (after last modificati on) on Tue08/29/23 at 1400, Until Discontinu ed, Routine [facility] heparin 1000 unit/mL injection Soln 4,440 Units 08-29 16:30: 00 08-29 17:34 :00 No 80U/kg 4,440 Units (80 Units/kg ?55.5 kg), IV Push, ONCE, 1 dose, On Tue08/29/23 at 1030, Routine [facility] heparin 25,000 Units/250 mL (Premixed Bag) in 0.45 % NS 08-29 16:28: 40 08-29 21:30 :22 No 0U/h 0-2,050 Units/hr (0-20.5 mL/hr), IV Infusion, TITRATE, Parameters in Admin. Instr., Starting on Tue08/29/23 at 1028
In itiate dosing:&nb sp; & nbsp;&nbsp ; -Patient 73 kg or under: 1,000 Units/hr (Calculate d dose at 18 units/kg/h r) &n bsp; &nbs p; -Patient over 73 k,300 units/hr&n bsp;DO NOT Exceed the MAXIMUM 1,300 units/hr for initiation of heparin drip.&nbsp ; CAU TION - If LMWH given in ER, AVOID bolus and start next dose/drip 24 hrs after ER dosage.&nb sp; M ust program rate using programmab le infusion pump.&nbsp ; Marivel ck with the ordering provider first prior to any administra tion should the patient be on existing/a dditional anticoagul ant therapy. Rang e, Dosing and Testing: &nbs p;DO NOT ADJUST INITIAL BOLUS OR INITIAL INFUSION RATE.&nbsp ; _ &nb sp;FOR [facility], [facility], AND [facility] ONLY &nbs p; - aPTT < 35: & nbsp;Bolus 5000 units, increase rate 300 units/hr&n bsp; - aPTT 35-44:&nbs p; Ambrocio jen 3000 units, increase rate 200 units/hr&n bsp; - aPTT 45-54:&nbs p; In crease rate 100 units/hr&n bsp; - aPTT 55-85:&nbs p; NO CHANGE&nbs p; - aPTT 86-95:&nbs p; De crease rate 100 units/hr&n bsp; - aPTT 96-120:&nb sp; H old 30 minutes, decrease rate 150 units/hr&n bsp; - aPTT > 120: Hold 60 minutes, decrease rate 200 units/hr&n bsp; Check aPTT 6 hours after initiation , then Q6H after every change, aPTT Q12H once therapeuti c levels are reached.&n bsp; &nbs p; __ &n bsp;FOR [facility] ONLY - aPTT < 40: & nbsp;Bolus 5000 units, increase rate 300 units/hr&n bsp; - aPTT 40-49:&nbs p; Ambrocio jen 3000 units, increase rate 200 units/hr&n bsp; - aPTT 50-59:&nbs p;&nbs p;Increase rate 100 units/hr&n bsp; - aPTT 60-85:&nbs p; NO CHANGE&nbs p; - aPTT 86-95:&nbs p; De crease rate 100 units/hr&n bsp; - aPTT 96-120:&nb sp; H old 30 minutes, decrease rate 150 units/hr&n bsp; - aPTT > 120: Hold 60 minutes, decrease rate 200 units/hr&n bsp; Check aPTT 6 hours after initiation , then Q6H after every change, aPTT Q12H once therapeuti c levels are reached.<b r> [facility] lactated ringers IV infusion 1,000 mL 08-29 15:45: 00 08-30 14:22 :39 No 1000mL at 150 mL/hr, 1,000 mL, IV Infusion, CONTINUOUS , Starting on Tue08/29/23 at 0945, Until Tue08/30/23 at 0822, Routine [facility] lactated ringers IV infusion 1,000 mL 08-29 15:15: 00 08-29 15:30 :32 No 1000mL at 100 mL/hr, 1,000 mL, IV Infusion, CONTINUOUS , Starting on Tue08/29/23 at 0915, Until Tue08/29/23 at 0930, Routine [facility] pantoprazol e (PROTONIX) EC tablet 40 mg 08-29 15:00: 00 Yes 40mg 40 mg, Oral, DAILY, First dose on Tue08/29/23 at 0900, Until Discontinu ed, Routine [facility] clopidogreL (PLAVIX) 75 mg tablet 75 mg 08-29 15:00: 00 09-08 15:46 :33 No 75mg 75 mg, Oral, DAILY, First dose on Tue08/29/23 at 0900, Until Discontinu ed, Routine [facility] amiodarone (PACERONE) tablet 100 mg 08-29 15:00: 00 08-29 16:29 :21 No 100mg 100 mg, Oral, DAILY, First dose on Tue08/29/23 at 0900, Until Discontinu ed, Routine [facility] rivaroxaban (XARELTO) tablet 15 mg 08-29 15:00: 00 08-29 16:29 :04 No 15mg 15 mg, Oral, DAILY, First dose on Tue08/29/23 at 0900, Until Discontinu ed, Routine [facility] Vancomycin 750 mg in NaCl 0.9% (NS) 250 mL VIAL-MATE 08-29 14:00: 00 08-29 16:15 :00 No 15mg/kg 750 mg (rounded from 832.5 mg = 15 mg/kg ?55.5 kg), IV Piggyback, ONCE, 1 dose, On Tue08/29/23 at 0800, Administer over 60 Minutes, 250 mL
Reas on for Anti-Infec tive: Empiric Therapy for Suspected Infection< br>Empiric Therapy Site: Respirator y
Durat ion of therapy: 72 hours [facility] metoprolol tartrate (LOPRESSOR) tablet 50 mg 08-29 14:00: 00 08-29 16:27 :48 No 50mg 50 mg, Oral, BID, First dose on Tue08/29/23 at 0800, Until Discontinu ed, Routine [facility] ceFEPIme (MAXIPIME) 1,000 mg in NaCl 0.9% (NS) 100 mL MINI-BAG 08-29 13:45: 00 08-29 21:43 :08 No 1000mg 1,000 mg, IV Piggyback, Q24H ABX, 5 doses, First dose on Tue08/29/23 at 0745, Last dose on Tue09/02/23 at 0745, Administer over 30 Minutes, 100 mL
Reas on for Anti-Infec tive: Empiric Therapy for Suspected Infection< br>Empiric Therapy Site: Respirator y
Durat ion of therapy: 5 days [facility] ondansetron (ZOFRAN (PF)) injection 4 mg 08-29 12:35: 47 Yes 4mg 4 mg, Slow IV Push, Q6HPRN, Nausea and Vomiting (N/V), Starting on Tue08/29/23 at 0635
Do ses of ondansetro n 16 mg and above need to be administer ed via IV piggyback. For Dose >=24mg ECG monitoring is advisable.
[facility] cefTRIAXone (ROCEPHIN) 1,000 mg in NaCl 0.9% (NS) 100 mL MINI-BAG 08-29 07:45: 00 08-29 08:37 :00 No 1000mg 1,000 mg, IV Piggyback, ONCE, 1 dose, On Tue08/29/23 at 0145, Administer over 30 Minutes, 100 mL
Reas on for Anti-Infec tive: Empiric Therapy for Suspected Infection< br>Empiric Therapy Site: Respirator y
Durat ion of therapy: Once (ED) [facility] ondansetron (ZOFRAN (PF)) injection 4 mg 08-29 07:45: 00 08-29 06:42 :00 No 4mg 4 mg, Slow IV Push, ONCE, 1 dose, On Tue08/29/23 at 0145, KRISTOPHER [facility] proMETHazin e (PHENERGAN) 12.5 mg in NS 50 mL IV piggyback (CNR) 08-29 07:30: 00 08-29 08:00 :00 No 12.5mg 12.5 mg, IV Piggyback, at 200 mL/hr Administer over 15 Minutes, ONCE, 1 dose, On Tue08/29/23 at 0130, KRISTOPHER [facility] NaCl 0.9% (NS) bolus infusion 500 mL 08-29 07:00: 00 08-29 08:45 :00 No 500mL at 999 mL/hr, 500 mL, IV Infusion, ONCE, 1 dose, On Tue08/29/23 at 0100, STAT [facility] clopidogreL (PLAVIX) 75 mg tablet 08-29 06:34: 40 Yes 75mg Take 1 tablet by mouth in the morning. [facility] metoprolol tartrate 50 mg tablet 08-29 06:34: 40 Yes 50mg Take 1 tablet by mouth in the morning and 1 tablet in the evening. [facility] metoprolol tartrate 50 mg tablet 08-26 11:36: 11 Yes 50mg Take 1 tablet by mouth in the morning and 1 tablet in the evening. [facility] metoprolol tartrate 25 mg tablet 08-26 00:00: 00 Yes 75mg Take 3 tablets by mouth in the morning and 3 tablets in the evening. [facility] metoprolol tartrate 25 mg tablet 08-26 00:00: 00 Yes 75mg Take 3 tablets by mouth in the morning and 3 tablets in the evening. [facility] metoprolol tartrate 25 mg tablet 08-26 00:00: 00 09-16 00:00 :00 No 75mg Take 3 tablets by mouth in the morning and 3 tablets in the evening. [facility] metoprolol tartrate 50 mg tablet 08-22 16:30: 37 Yes 50mg Take 1 tablet by mouth in the morning and 1 tablet in the evening. [facility] ondansetron 4 mg disintegrat ing tablet 08-22 00:00: 00 Yes [id number] 4mg Take 1 tablet by mouth every 8 (eight) hours as needed for Nausea and Vomiting (N/V). [facility] ergocalcife rol, vitamin d2, 1,250 mcg (50,000 unit) capsule 2023-0 08-22 00:00: 00 Yes [id number] Take 1 capsule by mouth weekly. [facility] ondansetron 4 mg disintegrat ing tablet 2023-0 08-22 00:00: 00 Yes [id number] 4mg Take 1 tablet by mouth every 8 (eight) hours as needed for Nausea and Vomiting (N/V). [facility] ergocalcife rol, vitamin d2, 1,250 mcg (50,000 unit) capsule 2023-0 08-22 00:00: 00 Yes [id number] Take 1 capsule by mouth weekly. [facility] ondansetron 4 mg disintegrat ing tablet 2023-0 08-22 00:00: 00 Yes [id number] 4mg Take 1 tablet by mouth every 8 (eight) hours as needed for Nausea and Vomiting (N/V). [facility] ergocalcife rol, vitamin d2, 1,250 mcg (50,000 unit) capsule 0 08-22 00:00: 00 Yes [id number] Take 1 capsule by mouth weekly. [facility] ondansetron 4 mg disintegrat ing tablet 0 08-22 00:00: 00 Yes [id number] 4mg Take 1 tablet by mouth every 8 (eight) hours as needed for Nausea and Vomiting (N/V). [facility] ergocalcife rol, vitamin d2, 1,250 mcg (50,000 unit) capsule 2023-0 08-22 00:00: 00 Yes [id number] Take 1 capsule by mouth weekly. [facility] ondansetron 4 mg disintegrat ing tablet 0 08-22 00:00: 00 Yes [id number] 4mg Take 1 tablet by mouth every 8 (eight) hours as needed for Nausea and Vomiting (N/V). [facility] ergocalcife rol, vitamin d2, 1,250 mcg (50,000 unit) capsule 08-22 00:00: 00 Yes [id number] Take 1 capsule by mouth weekly. [facility] ondansetron 4 mg disintegrat ing tablet 08-22 00:00: 00 Yes [id number] 4mg Take 1 tablet by mouth every 8 (eight) hours as needed for Nausea and Vomiting (N/V). [facility] ergocalcife rol, vitamin d2, 1,250 mcg (50,000 unit) capsule 08-22 00:00: 00 Yes [id number] Take 1 capsule by mouth weekly. [facility] clopidogreL (PLAVIX) 75 mg tablet 2022-08 13:32: 08 Yes 75mg Take 1 tablet by mouth in the morning. [facility] metoprolol tartrate 50 mg tablet 2022-08 13:32: 08 Yes 50mg Take 1 tablet by mouth in the morning and 1 tablet in the evening. [facility] clopidogreL (PLAVIX) 75 mg tablet 2022-08 13:32: 08 Yes 75mg Take 1 tablet by mouth in the morning. [facility] metoprolol tartrate 50 mg tablet 2022-08 13:32: 08 Yes 50mg Take 1 tablet by mouth in the morning and 1 tablet in the evening. [facility] clopidogreL (PLAVIX) 75 mg tablet 2022-08 13:32: 08 Yes 75mg Take 1 tablet by mouth in the morning. [facility] metoprolol tartrate 50 mg tablet 2022-08 13:32: 08 Yes 50mg Take 1 tablet by mouth in the morning and 1 tablet in the evening. [facility] clopidogreL (PLAVIX) 75 mg tablet 2022-08 13:32: 08 Yes 75mg Take 1 tablet by mouth in the morning. [facility] metoprolol tartrate 50 mg tablet 2022-08 13:32: 08 Yes 50mg Take 1 tablet by mouth in the morning and 1 tablet in the evening. [facility] clopidogreL (PLAVIX) 75 mg tablet 2022-08 13:32: 08 Yes 75mg Take 1 tablet by mouth in the morning. [facility] clopidogreL (PLAVIX) 75 mg tablet 2022-08 13:32: 08 Yes 75mg Take 1 tablet by mouth in the morning. [facility] ampicillin- sulbactam (UNASYN) 3 g in NaCl 0.9% (NS) 100 mL MINI-BAG 2022-08 02:00: 00 08-21 01:59 :00 Yes 3g 3 g, IV Piggyback, Q12H ABX, 14 doses, First dose (after last modificati on) on 08/13/23 at 2000, Last dose on 08/20/23 at 0800, Administer over 30 Minutes, 100 mL
Reas on for Anti-Infec tive: Documented Infection< br>Documen rachel Infection Site: Respirator y
Durat ion of Therapy: 7 days [facility] furosemide (LASIX) injection 40 mg 2022-08 01:15: 00 08-14 02:18 :00 No 40mg 40 mg, Slow IV Push, ONCE, 1 dose, On 08/13/23 at 1915, Routine [facility] morpHINE (2 mg/mL) injection 2 mg 2022-08 00:02: 15 08-15 00:01 :15 Yes 2mg 2 mg, Slow IV Push, Q4HPRN, Starting on 08/13/23 at 1802, Until 08/14/23 at 1801, Routine, Pain (scale 7-10) [facility] atorvastati n 40 mg tablet 2022-08 00:00: 00 09-16 00:00 :00 No [id number] 40mg Take 1 tablet by mouth every evening for 30 days. [facility] pantoprazol e 40 mg EC tablet 2022-08 00:00: 00 09-16 00:00 :00 No [id number] 40mg Take 1 tablet by mouth in the morning for 30 days. [facility] furosemide 40 mg tablet 2022-08 00:00: 00 09-16 00:00 :00 No [id number] 40mg Take 1 tablet by mouth in the morning for 30 days. [facility] atorvastati n 40 mg tablet 2022-08 00:00: 00 09-14 05:59 :00 Yes [id number] 40mg Take 1 tablet by mouth every evening for 30 days. [facility] pantoprazol e 40 mg EC tablet 2022-08 00:00: 00 09-14 05:59 :00 Yes [id number] 40mg Take 1 tablet by mouth in the morning for 30 days. [facility] furosemide 40 mg tablet 2022-08 00:00: 00 09-14 05:59 :00 Yes [id number] 40mg Take 1 tablet by mouth in the morning for 30 days. [facility] atorvastati n 40 mg tablet 2022-08 00:00: 00 09-14 05:59 :00 Yes [id number] 40mg Take 1 tablet by mouth every evening for 30 days. [facility] pantoprazol e 40 mg EC tablet 2022-08 00:00: 00 09-14 05:59 :00 Yes [id number] 40mg Take 1 tablet by mouth in the morning for 30 days. [facility] furosemide 40 mg tablet 2022-08 00:00: 00 09-14 05:59 :00 Yes [id number] 40mg Take 1 tablet by mouth in the morning for 30 days. [facility] atorvastati n 40 mg tablet 2022-08 00:00: 00 09-14 05:59 :00 Yes [id number] 40mg Take 1 tablet by mouth every evening for 30 days. [facility] pantoprazol e 40 mg EC tablet 2022-08 00:00: 00 09-14 05:59 :00 Yes [id number] 40mg Take 1 tablet by mouth in the morning for 30 days. [facility] furosemide 40 mg tablet 2022-08 00:00: 00 09-14 05:59 :00 Yes [id number] 40mg Take 1 tablet by mouth in the morning for 30 days. [facility] atorvastati n 40 mg tablet 2022-08 00:00: 00 09-14 05:59 :00 Yes [id number] 40mg Take 1 tablet by mouth every evening for 30 days. [facility] pantoprazol e 40 mg EC tablet 2022-08 00:00: 00 09-14 05:59 :00 Yes [id number] 40mg Take 1 tablet by mouth in the morning for 30 days. [facility] furosemide 40 mg tablet 2022-08 00:00: 00 09-14 05:59 :00 Yes [id number] 40mg Take 1 tablet by mouth in the morning for 30 days. [facility] atorvastati n 40 mg tablet 2022-08 00:00: 00 09-14 05:59 :00 Yes [id number] 40mg Take 1 tablet by mouth every evening for 30 days. [facility] pantoprazol e 40 mg EC tablet 2022-08 00:00: 00 09-14 05:59 :00 Yes [id number] 40mg Take 1 tablet by mouth in the morning for 30 days. [facility] furosemide 40 mg tablet 2022-08 00:00: 00 09-14 05:59 :00 Yes [id number] 40mg Take 1 tablet by mouth in the morning for 30 days. [facility] atorvastati n 40 mg tablet 2022-08 00:00: 00 09-14 05:59 :00 Yes [id number] 40mg Take 1 tablet by mouth every evening for 30 days. [facility] pantoprazol e 40 mg EC tablet 2022-08 00:00: 00 09-14 05:59 :00 Yes [id number] 40mg Take 1 tablet by mouth in the morning for 30 days. [facility] furosemide 40 mg tablet 2022-08 00:00: 00 09-14 05:59 :00 Yes [id number] 40mg Take 1 tablet by mouth in the morning for 30 days. [facility] atorvastati n 40 mg tablet 2022-08 00:00: 00 09-14 05:59 :00 Yes [id number] 40mg Take 1 tablet by mouth every evening for 30 days. [facility] pantoprazol e 40 mg EC tablet 2022-08 00:00: 00 09-14 05:59 :00 Yes [id number] 40mg Take 1 tablet by mouth in the morning for 30 days. [facility] furosemide 40 mg tablet 2022-08 00:00: 00 09-14 05:59 :00 Yes [id number] 40mg Take 1 tablet by mouth in the morning for 30 days. [facility] amoxicillin -clavulanat e (AUGMENTIN) 875-125 mg per tablet 2022-08 00:00: 00 08-26 05:59 :00 Yes [id number] 1{tbl} Take 1 tablet by mouth in the morning and 1 tablet in the evening. Do all this for 11 days. [facility] amoxicillin -clavulanat e (AUGMENTIN) 875-125 mg per tablet 2022-08 00:00: 00 08-26 05:59 :00 Yes [id number] 1{tbl} Take 1 tablet by mouth in the morning and 1 tablet in the evening. Do all this for 11 days. [facility] amoxicillin -clavulanat e (AUGMENTIN) 875-125 mg per tablet 2022-08 00:00: 00 08-26 05:59 :00 Yes [id number] 1{tbl} Take 1 tablet by mouth in the morning and 1 tablet in the evening. Do all this for 11 days. [facility] amoxicillin -clavulanat e (AUGMENTIN) 875-125 mg per tablet 2022-08 00:00: 00 08-26 05:59 :00 Yes [id number] 1{tbl} Take 1 tablet by mouth in the morning and 1 tablet in the evening. Do all this for 11 days. [facility] amoxicillin -clavulanat e (AUGMENTIN) 875-125 mg per tablet 2022-08 00:00: 00 08-26 05:59 :00 Yes [id number] 1{tbl} Take 1 tablet by mouth in the morning and 1 tablet in the evening. Do all this for 11 days. [facility] amoxicillin -clavulanat e (AUGMENTIN) 875-125 mg per tablet 2022-08 00:00: 00 08-26 05:59 :00 No [id number] 1{tbl} Take 1 tablet by mouth in the morning and 1 tablet in the evening. Do all this for 11 days. [facility] albuterol (PROVENTIL) 2.5 mg /3 mL (0.083 %) nebulizer solution 2.5 mg 2022-08 18:45: 00 Yes 2.5mg 2.5 mg, Inhalation , Q6H, First dose (after last modificati on) on 08/13/23 at 1245, Until Discontinu ed, Routine [facility] amiodarone (PACERONE) tablet 100 mg 2022-08 15:00: 00 Yes 100mg 100 mg, Oral, DAILY, First dose on 08/13/23 at 0900, Until Discontinu ed, Routine [facility] rivaroxaban (XARELTO) tablet 15 mg 2022-08 15:00: 00 Yes 15mg 15 mg, Oral, DAILY, First dose on 08/13/23 at 0900, Until Discontinu ed, Routine [facility] clopidogreL (PLAVIX) 75 mg tablet 75 mg 2022-08 15:00: 00 Yes 75mg 75 mg, Oral, DAILY, First dose on 08/13/23 at 0900, Until Discontinu ed, Routine [facility] docusate (COLACE) capsule 100 mg 2022-08 15:00: 00 Yes 100mg 100 mg, Oral, DAILY, First dose on 08/13/23 at 0900, Until Discontinu ed, Routine [facility] levothyroxi ne (SYNTHROID) tablet 88 mcg 2022-08 12:00: 00 Yes 88ug 88 mcg, Oral, QAM-0600, First dose on Tue08/13/23 at 0600, Until Discontinu ed, Routine [facility] piperacilli n-tazobacta m (ZOSYN) 3.375 g in NaCl 0.9% (NS) 100 mL MINI-BAG 2022-08 09:30: 00 08-14 00:21 :51 No 3.375g 3.375 g, IV Piggyback, Q8H ABX, 18 doses, First dose on Tue08/13/23 at 0330, Last dose on Lilo 08/18/23 at 1930, Administer over 4 Hours, 100 mL
Reas on for Anti-Infec tive: Documented Infection& lt;br>Docu mented Infection Site: Respirator y
Durat ion of Therapy: 7 days [facility] melatonin (MELATIN) tablet 6 mg 2022-08 03:00: 00 Yes 6mg 6 mg, Oral, QHS, First dose on Tue08/12/23 at 2100, Until Discontinu ed, Routine [facility] pantoprazol e (PROTONIX) injection 40 mg 2022-08 02:00: 00 Yes 40mg 40 mg, Slow IV Push, Q12H, First dose on Tue08/12/23 at 2000, Until Discontinu ed [facility] metoprolol tartrate (LOPRESSOR) tablet 50 mg 2022-08 02:00: 00 Yes 50mg 50 mg, Oral, BID, First dose on Tue08/12/23 at 2000, Until Discontinu ed, Routine [facility] acetaminoph en-codeine (TYLENOL #3) 300-30 mg tablet 1 tablet 2022-08 00:53: 20 Yes [id number] 1{tbl} 1 tablet, Oral, Q4HPRN, Starting on Tue08/12/23 at 1853, Until Discontinu ed, Routine, Pain (scale 4-6) [facility] maalox:diph enhydrAMINE :lidocaine 2 % viscous 1:1:1 (FIRST-MOUT HWASH BLM) oral suspension 15 mL 2022-08 00:23: 08 Yes 15mL 15 mL, Oral, QDAILYPRN, Starting on Tue08/12/23 at 1823, Until Discontinu ed, Routine, pain [facility] atorvastati n (LIPITOR) tablet 40 mg 2022-08 23:00: 00 Yes 40mg 40 mg, Oral, QPM, First dose on Tue08/12/23 at 1700, Until Discontinu ed, Routine [facility] nitroglycer in (TRANSDERM- NITRO) 0.4 mg/hr patch 1 Patch 2022-08 19:00: 00 Yes 1{patch } 1 Patch, Transderma l (Apply To Skin), Administer over 12 Hours, DAILY, First dose on Tue08/12/23 at 1300, Until Discontinu ed, Routine [facility] albuterol (PROVENTIL) 2.5 mg /3 mL (0.083 %) nebulizer solution 2.5 mg 2022-08 18:57: 24 08-13 18:37 :37 No 2.5mg 2.5 mg, Inhalation , Q6HPRN, Starting on Tue08/12/23 at 1257, Until 08/13/23 at 1237, Routine, Shortness of Breath, Wheezing [facility] ondansetron (ZOFRAN (PF)) injection 4 mg 2022-08 18:55: 32 Yes 4mg 4 mg, Slow IV Push, Q6HPRN, Starting on Tue08/12/23 at 1255, Until Discontinu ed, Routine, Nausea and Vomiting (N/V) [facility] morpHINE (2 mg/mL) injection 2 mg 2022-08 18:55: 22 08-13 18:54 :22 No 2mg 2 mg, Slow IV Push, Q4HPRN, Starting on Tue08/12/23 at 1255, Until 08/13/23 at 1254, Routine, Pain (scale 7-10) [facility] HYDROcodone -acetaminop hen (NORCO 5) 5-325 mg tablet 1 tablet 2022-08 18:55: 19 08-13 00:54 :13 No 1{tbl} 1 tablet, Oral, Q6HPRN, Starting on Tue08/12/23 at 1255, Until Tue08/12/23 at 1854, Routine, Pain (scale 4-6) [facility] acetaminoph en (TYLENOL) tablet 650 mg 2022-08 18:55: 14 Yes 650mg 650 mg, Oral, Q6HPRN, Starting on Tue08/12/23 at 1255, Until Discontinu ed, Routine, Pain (scale 1-3) [facility] albuterol (PROVENTIL) 2.5 mg /3 mL (0.083 %) nebulizer solution 5 mg 2022-08 16:45: 00 08-12 16:46 :00 No 5mg 5 mg, Inhalation , ONCE, 1 dose, On Tue08/12/23 at 1045, KRISTOPHER [facility] iopamidol (ISOVUE 370-500 mL) injection 70 mL 2022-08 16:15: 00 08-12 16:30 :00 No [id number] 70mL 70 mL, Intravenou s, ONCE, 1 dose, On Tue08/12/23 at 1030, Routine [facility] FENTanyl PF (SUBLIMAZE (PF)) injection 50 mcg 2022-08 15:15: 00 08-12 14:30 :00 No 50ug 50 mcg, Slow IV Push, ONCE, 1 dose, On Tue08/12/23 at 0915, Routine [facility] famotidine (PEPCID (PF)) injection 20 mg 2022-08 15:00: 00 08-12 15:04 :00 No 20mg 20 mg, Slow IV Push, ONCE, 1 dose, On Tue08/12/23 at 0900, KRISTOPHER [facility] nitroglycer in (NITROSTAT) sublingual tablet 0.4 mg 2022-08 13:22: 32 Yes .4mg 0.4 mg, Sublingual , Q5MIN PRN, 3 doses, Starting on Tue08/12/23 at 0722, Until Discontinu ed, KRISTOPHER, Chest pain [facility] amiodarone 100 mg tablet 2022-08 00:00: 00 Yes [id number] 100mg Take 1 tablet by mouth in the morning. [facility] amiodarone 100 mg tablet 2022-08 00:00: 00 Yes [id number] 100mg Take 1 tablet by mouth in the morning. [facility] amiodarone 100 mg tablet 2022-08 00:00: 00 Yes [id number] 100mg Take 1 tablet by mouth in the morning. [facility] amiodarone 100 mg tablet 2022-08 00:00: 00 Yes [id number] 100mg Take 1 tablet by mouth in the morning. [facility] amiodarone 100 mg tablet 2022-08 00:00: 00 Yes [id number] 100mg Take 1 tablet by mouth in the morning. [facility] amiodarone 100 mg tablet 2022-08 00:00: 00 Yes [id number] 100mg Take 1 tablet by mouth in the morning. [facility] amiodarone 100 mg tablet 2022-08 00:00: 00 Yes [id number] 100mg Take 1 tablet by mouth in the morning. [facility] amiodarone 100 mg tablet 2022-08 00:00: 00 Yes [id number] 100mg Take 1 tablet by mouth in the morning. [facility] amiodarone 100 mg tablet 2022-08 00:00: 00 Yes [id number] 100mg Take 1 tablet by mouth in the morning. [facility] amiodarone 100 mg tablet 2022-08 00:00: 00 Yes [id number] 100mg Take 1 tablet by mouth in the morning. [facility] amiodarone 100 mg tablet 2022-08 00:00: 00 Yes [id number] 100mg Take 1 tablet by mouth in the morning. [facility] HYDROcodone -acetaminop hen 7.5-325 mg per tablet 2022-08 00:00: 00 Yes 1{tbl} Take 1 tablet by mouth in the morning and 1 tablet at noon and 1 tablet in the evening. [facility] HYDROcodone -acetaminop hen 7.5-325 mg per tablet 2022-08 00:00: 00 Yes 1{tbl} Take 1 tablet by mouth in the morning and 1 tablet at noon and 1 tablet in the evening. [facility] HYDROcodone -acetaminop hen 7.5-325 mg per tablet 2022-08 00:00: 00 Yes 1{tbl} Take 1 tablet by mouth in the morning and 1 tablet at noon and 1 tablet in the evening. [facility] HYDROcodone -acetaminop hen 7.5-325 mg per tablet 2022-08 00:00: 00 Yes 1{tbl} Take 1 tablet by mouth in the morning and 1 tablet at noon and 1 tablet in the evening. [facility] HYDROcodone -acetaminop hen 7.5-325 mg per tablet 2022-08 00:00: 00 Yes [id number] 1{tbl} Take 1 tablet by mouth in the morning and 1 tablet at noon and 1 tablet in the evening. Indication s: chronic pain [facility] HYDROcodone -acetaminop hen 7.5-325 mg per tablet 2022-08 00:00: 00 Yes [id number] 1{tbl} Take 1 tablet by mouth in the morning and 1 tablet at noon and 1 tablet in the evening. Indication s: chronic pain [facility] clopidogreL (PLAVIX) 75 mg tablet 2022-08 00:00: 00 Yes [id number] 75mg Take 1 tablet by mouth in the morning. [facility] clopidogreL (PLAVIX) 75 mg tablet 2022-08 00:00: 00 Yes [id number] 75mg Take 1 tablet by mouth in the morning. [facility] clopidogreL (PLAVIX) 75 mg tablet 2022-08 00:00: 00 Yes [id number] 75mg Take 1 tablet by mouth in the morning. [facility] clopidogreL (PLAVIX) 75 mg tablet 2022-08 00:00: 00 Yes [id number] 75mg Take 1 tablet by mouth in the morning. [facility] clopidogreL (PLAVIX) 75 mg tablet 2022-08 2 00:00: 00 Yes [id number] 75mg Take 1 tablet by mouth in the morning. [facility] clopidogreL (PLAVIX) 75 mg tablet 2022-08 2 00:00: 00 Yes [id number] 75mg Take 1 tablet by mouth in the morning. [facility] clopidogreL (PLAVIX) 75 mg tablet 2022-08 2 00:00: 00 Yes [id number] 75mg Take 1 tablet by mouth in the morning. [facility] clopidogreL (PLAVIX) 75 mg tablet 2022-08 00:00: 00 08-12 00:00 :00 No [id number] 75mg Take 1 tablet by mouth in the morning. [facility] clopidogreL (PLAVIX) 75 mg tablet 2022-08 00:00: 00 08-12 00:00 :00 No [id number] 75mg Take 1 tablet by mouth in the morning. [facility] clopidogreL (PLAVIX) 75 mg tablet 2022-08 00:00: 00 05:59 :00 Yes [id number] 75mg Take 1 tablet by mouth in the morning for 90 days. [facility] clopidogreL (PLAVIX) 75 mg tablet 2022-08 00:00: 00 07-18 00:00 :00 No [id number] 75mg Take 1 tablet by mouth in the morning for 90 days. [facility] rivaroxaban (XARELTO) 15 mg tablet 2022-08 00:00: 00 Yes 15mg Take 1 tablet by mouth in the morning. Indication s: PAF [facility] rivaroxaban (XARELTO) 15 mg tablet 2022-08 00:00: 00 Yes 15mg Take 1 tablet by mouth in the morning. Indication s: PAF [facility] rivaroxaban (XARELTO) 15 mg tablet 2022-08 00:00: 00 Yes 15mg Take 1 tablet by mouth in the morning. Indication s: PAF [facility] rivaroxaban (XARELTO) 15 mg tablet 2022-08 00:00: 00 Yes 15mg Take 1 tablet by mouth in the morning. Indication s: PAF [facility] rivaroxaban (XARELTO) 15 mg tablet 2022-08 00:00: 00 Yes 15mg Take 1 tablet by mouth in the morning. Indication s: PAF [facility] rivaroxaban (XARELTO) 15 mg tablet 2022-08 00:00: 00 Yes 15mg Take 1 tablet by mouth in the morning. Indication s: PAF [facility] rivaroxaban (XARELTO) 15 mg tablet 2022-08 00:00: 00 Yes 15mg Take 1 tablet by mouth in the morning. Indication s: PAF [facility] rivaroxaban (XARELTO) 15 mg tablet 2022-08 00:00: 00 Yes 15mg Take 1 tablet by mouth in the morning. Indication s: PAF [facility] rivaroxaban (XARELTO) 15 mg tablet 2022-08 00:00: 00 Yes 15mg Take 1 tablet by mouth in the morning. Indication s: PAF [facility] rivaroxaban (XARELTO) 15 mg tablet 2022-08 00:00: 00 Yes 15mg Take 1 tablet by mouth in the morning. Indication s: PAF [facility] rivaroxaban (XARELTO) 15 mg tablet 2022-08 00:00: 00 Yes 15mg Take 1 tablet by mouth in the morning. Indication s: PAF [facility] rivaroxaban (XARELTO) 15 mg tablet 2022-08 00:00: 00 Yes 15mg Take 1 tablet by mouth in the morning. Indication s: PAF [facility] rivaroxaban (XARELTO) 15 mg tablet 2022-08 00:00: 00 Yes 15mg Take 1 tablet by mouth in the morning. Indication s: PAF [facility] rivaroxaban (XARELTO) 15 mg tablet 2022-08 00:00: 00 Yes 15mg Take 1 tablet by mouth in the morning. Indication s: PAF [facility] rivaroxaban (XARELTO) 15 mg tablet 2022-08 00:00: 00 Yes 15mg Take 1 tablet by mouth in the morning. Indication s: PAF [facility] rivaroxaban (XARELTO) 15 mg tablet 2022-08 00:00: 00 Yes 15mg Take 1 tablet by mouth in the morning. Indication s: PAF [facility] rivaroxaban (XARELTO) 15 mg tablet 2022-08 00:00: 00 Yes 15mg Take 1 tablet by mouth in the morning. Indication s: PAF [facility] rivaroxaban (XARELTO) 15 mg tablet 2022-08 00:00: 00 Yes 15mg Take 1 tablet by mouth in the morning. Indication s: PAF [facility] rivaroxaban (XARELTO) 15 mg tablet 2022-08 00:00: 00 Yes 15mg Take 1 tablet by mouth in the morning. Indication s: PAF [facility] rivaroxaban (XARELTO) 15 mg tablet 2022-08 00:00: 00 Yes 15mg Take 1 tablet by mouth in the morning. Indication s: PAF [facility] rivaroxaban (XARELTO) 15 mg tablet 2022-08 00:00: 00 Yes 15mg Take 1 tablet by mouth in the morning. Indication s: PAF [facility] rivaroxaban (XARELTO) 15 mg tablet 2022-08 00:00: 00 Yes 15mg Take 1 tablet by mouth in the morning. Indication s: PAF [facility] rivaroxaban (XARELTO) 15 mg tablet 2022-08 00:00: 00 Yes 15mg Take 1 tablet by mouth in the morning. Indication s: PAF [facility] rivaroxaban (XARELTO) 15 mg tablet 2022-08 00:00: 00 09-16 00:00 :00 No 15mg Take 1 tablet by mouth in the morning. Indication s: PAF [facility] apixaban 5 mg tablet 2022-08 00:00: 00 07-20 05:59 :00 Yes [id number] 5mg Take 1 tablet by mouth in the morning and 1 tablet in the evening. Do all this for 14 days. Indication s: atrial fibrillati on [facility] apixaban 5 mg tablet 2022-08 00:00: 00 07-20 05:59 :00 Yes [id number] 5mg Take 1 tablet by mouth in the morning and 1 tablet in the evening. Do all this for 14 days. Indication s: atrial fibrillati on [facility] apixaban 5 mg tablet 2022-08 00:00: 00 07-20 05:59 :00 Yes [id number] 5mg Take 1 tablet by mouth in the morning and 1 tablet in the evening. Do all this for 14 days. Indication s: atrial fibrillati on [facility] apixaban 5 mg tablet 2022-08 00:00: 00 07-05 00:00 :00 No 1358 5mg Take 1 tablet by mouth in the morning and 1 tablet in the evening. Do all this for 14 days. Indication s: atrial fibrillati on [facility] apixaban 5 mg tablet 2022-08 00:00: 00 07-05 00:00 :00 No 1358 5mg Take 1 tablet by mouth in the morning and 1 tablet in the evening. Do all this for 14 days. Indication s: atrial fibrillati on [facility] apixaban 5 mg tablet 2022-08 00:00: 00 Yes [id number] 5mg Take 1 tablet by mouth in the morning and 1 tablet in the evening. Indication s: atrial fibrillati on [facility] apixaban 5 mg tablet 2022-08 00:00: 00 Yes [id number] 5mg Take 1 tablet by mouth in the morning and 1 tablet in the evening. Indication s: atrial fibrillati on [facility] apixaban 5 mg tablet 2022-08 00:00: 00 Yes 1358 5mg Take 1 tablet by mouth in the morning and 1 tablet in the evening. Indication s: atrial fibrillati on [facility] apixaban 5 mg tablet 2023-1 1-20 00:00: 00 07-05 00:00 :00 No 1358 5mg Take 1 tablet by mouth in the morning and 1 tablet in the evening. Indication s: atrial fibrillati on [facility] apixaban 5 mg tablet 2022-08 00:00: 00 07-05 00:00 :00 No 1358 5mg Take 1 tablet by mouth in the morning and 1 tablet in the evening. Indication s: atrial fibrillati on [facility] polyethylen e glycol 3350 (MIRALAX) 17 gram/dose powder 2022-08 00:00: 00 08-22 05:59 :00 Yes [id number] 17g Take 17 g by mouth in the morning for 60 days. [facility] polyethylen e glycol 3350 (MIRALAX) 17 gram/dose powder 2022-08 00:00: 00 08-22 05:59 :00 Yes [id number] 17g Take 17 g by mouth in the morning for 60 days. [facility] polyethylen e glycol 3350 (MIRALAX) 17 gram/dose powder 2022-08 00:00: 00 08-22 05:59 :00 Yes [id number] 17g Take 17 g by mouth in the morning for 60 days. [facility] polyethylen e glycol 3350 (MIRALAX) 17 gram/dose powder 2022-08 00:00: 00 08-22 05:59 :00 Yes [id number] 17g Take 17 g by mouth in the morning for 60 days. [facility] polyethylen e glycol 3350 (MIRALAX) 17 gram/dose powder 2022-08 00:00: 00 08-22 05:59 :00 Yes [id number] 17g Take 17 g by mouth in the morning for 60 days. [facility] polyethylen e glycol 3350 (MIRALAX) 17 gram/dose powder 2022-08 00:00: 00 08-22 05:59 :00 Yes [id number] 17g Take 17 g by mouth in the morning for 60 days. [facility] polyethylen e glycol 3350 (MIRALAX) 17 gram/dose powder 2022-08 00:00: 00 08-22 05:59 :00 Yes [id number] 17g Take 17 g by mouth in the morning for 60 days. [facility] polyethylen e glycol 3350 (MIRALAX) 17 gram/dose powder 2022-08 00:00: 00 08-22 05:59 :00 Yes [id number] 17g Take 17 g by mouth in the morning for 60 days. [facility] polyethylen e glycol 3350 (MIRALAX) 17 gram/dose powder 2022-08 00:00: 00 08-22 05:59 :00 Yes [id number] 17g Take 17 g by mouth in the morning for 60 days. [facility] polyethylen e glycol 3350 (MIRALAX) 17 gram/dose powder 2022-08 00:00: 00 08-22 05:59 :00 Yes [id number] 17g Take 17 g by mouth in the morning for 60 days. [facility] polyethylen e glycol 3350 (MIRALAX) 17 gram/dose powder 2022-08 00:00: 00 08-22 05:59 :00 Yes [id number] 17g Take 17 g by mouth in the morning for 60 days. [facility] polyethylen e glycol 3350 (MIRALAX) 17 gram/dose powder 2022-08 00:00: 00 08-22 05:59 :00 Yes [id number] 17g Take 17 g by mouth in the morning for 60 days. [facility] polyethylen e glycol 3350 (MIRALAX) 17 gram/dose powder 2022-08 00:00: 00 08-22 05:59 :00 Yes [id number] 17g Take 17 g by mouth in the morning for 60 days. [facility] polyethylen e glycol 3350 (MIRALAX) 17 gram/dose powder 2022-08 00:00: 00 08-22 05:59 :00 Yes [id number] 17g Take 17 g by mouth in the morning for 60 days. [facility] polyethylen e glycol 3350 (MIRALAX) 17 gram/dose powder 2022-08 00:00: 00 08-22 05:59 :00 Yes [id number] 17g Take 17 g by mouth in the morning for 60 days. [facility] polyethylen e glycol 3350 (MIRALAX) 17 gram/dose powder 2022-08 00:00: 00 08-22 05:59 :00 Yes [id number] 17g Take 17 g by mouth in the morning for 60 days. [facility] polyethylen e glycol 3350 (MIRALAX) 17 gram/dose powder 2022-08 00:00: 00 08-22 05:59 :00 Yes [id number] 17g Take 17 g by mouth in the morning for 60 days. [facility] polyethylen e glycol 3350 (MIRALAX) 17 gram/dose powder 2022-08 00:00: 00 08-22 05:59 :00 Yes [id number] 17g Take 17 g by mouth in the morning for 60 days. [facility] polyethylen e glycol 3350 (MIRALAX) 17 gram/dose powder 2022-08 00:00: 00 08-22 05:59 :00 Yes [id number] 17g Take 17 g by mouth in the morning for 60 days. [facility] polyethylen e glycol 3350 (MIRALAX) 17 gram/dose powder 2022-08 00:00: 00 08-22 05:59 :00 Yes [id number] 17g Take 17 g by mouth in the morning for 60 days. [facility] polyethylen e glycol 3350 (MIRALAX) 17 gram/dose powder 2022-08 00:00: 00 08-22 05:59 :00 Yes [id number] 17g Take 17 g by mouth in the morning for 60 days. [facility] polyethylen e glycol 3350 (MIRALAX) 17 gram/dose powder 2022-08 00:00: 00 08-22 05:59 :00 Yes [id number] 17g Take 17 g by mouth in the morning for 60 days. [facility] polyethylen e glycol 3350 (MIRALAX) 17 gram/dose powder 2022-08 00:00: 00 08-22 05:59 :00 Yes [id number] 17g Take 17 g by mouth in the morning for 60 days. [facility] polyethylen e glycol 3350 (MIRALAX) 17 gram/dose powder 2022-08 00:00: 00 08-22 05:59 :00 No [id number] 17g Take 17 g by mouth in the morning for 60 days. [facility] amiodarone 200 mg tablet 2022-08 00:00: 00 Yes [id number] 200mg Take 1 tablet by mouth in the morning. [facility] amiodarone 200 mg tablet 2022-08 00:00: 00 Yes [id number] 200mg Take 1 tablet by mouth in the morning. [facility] amiodarone 200 mg tablet 2022-08 00:00: 00 Yes [id number] 200mg Take 1 tablet by mouth in the morning. [facility] amiodarone 200 mg tablet 2022-08 00:00: 00 Yes [id number] 200mg Take 1 tablet by mouth in the morning. [facility] amiodarone 200 mg tablet 2022-08 00:00: 00 Yes [id number] 200mg Take 1 tablet by mouth in the morning. [facility] amiodarone 200 mg tablet 2022-08 00:00: 00 Yes [id number] 200mg Take 1 tablet by mouth in the morning. [facility] amiodarone 200 mg tablet 2022-08 00:00: 00 Yes [id number] 200mg Take 1 tablet by mouth in the morning. [facility] amiodarone 200 mg tablet 2022-08 00:00: 00 Yes [id number] 200mg Take 1 tablet by mouth in the morning. [facility] amiodarone 200 mg tablet 2022-08 00:00: 00 Yes [id number] 200mg Take 1 tablet by mouth in the morning. [facility] amiodarone 200 mg tablet 2022-08 00:00: 00 Yes [id number] 200mg Take 1 tablet by mouth in the morning. [facility] amiodarone 200 mg tablet 2022-08 00:00: 00 Yes [id number] 200mg Take 1 tablet by mouth in the morning. [facility] amiodarone 200 mg tablet 2022-08 00:00: 00 Yes [id number] 200mg Take 1 tablet by mouth in the morning. [facility] amiodarone 200 mg tablet 2022-08 00:00: 00 Yes [id number] 200mg Take 1 tablet by mouth in the morning. [facility] amiodarone 200 mg tablet 2022-08 00:00: 00 Yes [id number] 200mg Take 1 tablet by mouth in the morning. [facility] amiodarone 200 mg tablet 2022-08 00:00: 00 Yes [id number] 200mg Take 1 tablet by mouth in the morning. [facility] amiodarone 200 mg tablet 2022-08 00:00: 00 Yes [id number] 200mg Take 1 tablet by mouth in the morning. [facility] amiodarone 200 mg tablet 2022-08 00:00: 00 Yes [id number] 200mg Take 1 tablet by mouth in the morning. [facility] amiodarone 200 mg tablet 2022-08 00:00: 00 Yes [id number] 200mg Take 1 tablet by mouth in the morning. [facility] amiodarone 200 mg tablet 2022-08 00:00: 00 Yes [id number] 200mg Take 1 tablet by mouth in the morning. [facility] amiodarone 200 mg tablet 2022-08 00:00: 00 08-11 00:00 :00 No [id number] 200mg Take 1 tablet by mouth in the morning. [facility] amiodarone 200 mg tablet 2022-08 00:00: 00 08-11 00:00 :00 No [id number] 200mg Take 1 tablet by mouth in the morning. [facility] amiodarone 200 mg tablet 2022-08 00:00: 00 08-11 00:00 :00 No [id number] 200mg Take 1 tablet by mouth in the morning. [facility] amiodarone 200 mg tablet 2022-08 00:00: 00 08-11 00:00 :00 No [id number] 200mg Take 1 tablet by mouth in the morning. [facility] SERTraline (ZOLOFT) 25 mg tablet 2022-08 0 00:00: 00 Yes [id number] 25mg Take 1 tablet by mouth in the morning. [facility] SERTraline (ZOLOFT) 25 mg tablet 2022-08 0 00:00: 00 Yes [id number] 25mg Take 1 tablet by mouth in the morning. [facility] SERTraline (ZOLOFT) 25 mg tablet 2022-08 0 00:00: 00 Yes [id number] 25mg Take 1 tablet by mouth in the morning. [facility] SERTraline (ZOLOFT) 25 mg tablet 2022-08 0 00:00: 00 Yes [id number] 25mg Take 1 tablet by mouth in the morning. [facility] SERTraline (ZOLOFT) 25 mg tablet 2022-08 0-24 00:00: 00 Yes [id number] 25mg Take 1 tablet by mouth in the morning. [facility] SERTraline (ZOLOFT) 25 mg tablet 2022-08 0-24 00:00: 00 Yes [id number] 25mg Take 1 tablet by mouth in the morning. [facility] SERTraline (ZOLOFT) 25 mg tablet 2022-08 0-24 00:00: 00 Yes [id number] 25mg Take 1 tablet by mouth in the morning. [facility] SERTraline (ZOLOFT) 25 mg tablet 2022-08 024 00:00: 00 Yes [id number] 25mg Take 1 tablet by mouth in the morning. [facility] SERTraline (ZOLOFT) 25 mg tablet 2022-08 0-24 00:00: 00 Yes [id number] 25mg Take 1 tablet by mouth in the morning. [facility] SERTraline (ZOLOFT) 25 mg tablet 2022-08 0-24 00:00: 00 Yes [id number] 25mg Take 1 tablet by mouth in the morning. [facility] SERTraline (ZOLOFT) 25 mg tablet 2022-08 0 00:00: 00 Yes [id number] 25mg Take 1 tablet by mouth in the morning. [facility] SERTraline (ZOLOFT) 25 mg tablet 2022-08 0 00:00: 00 Yes [id number] 25mg Take 1 tablet by mouth in the morning. [facility] SERTraline (ZOLOFT) 25 mg tablet 2022-08 0 00:00: 00 Yes [id number] 25mg Take 1 tablet by mouth in the morning. [facility] SERTraline (ZOLOFT) 25 mg tablet 2022-08 0 00:00: 00 Yes [id number] 25mg Take 1 tablet by mouth in the morning. [facility] SERTraline (ZOLOFT) 25 mg tablet 2022-08 0 00:00: 00 Yes [id number] 25mg Take 1 tablet by mouth in the morning. [facility] SERTraline (ZOLOFT) 25 mg tablet 2022-08 024 00:00: 00 Yes [id number] 25mg Take 1 tablet by mouth in the morning. [facility] SERTraline (ZOLOFT) 25 mg tablet 2022 0-24 00:00: 00 Yes [id number] 25mg Take 1 tablet by mouth in the morning. [facility] SERTraline (ZOLOFT) 25 mg tablet 2022-08 0-24 00:00: 00 Yes [id number] 25mg Take 1 tablet by mouth in the morning. [facility] SERTraline (ZOLOFT) 25 mg tablet 2022-08 0-24 00:00: 00 Yes [id number] 25mg Take 1 tablet by mouth in the morning. [facility] SERTraline (ZOLOFT) 25 mg tablet 2022-08 024 00:00: 00 Yes [id number] 25mg Take 1 tablet by mouth in the morning. [facility] SERTraline (ZOLOFT) 25 mg tablet 2022-08 024 00:00: 00 Yes [id number] 25mg Take 1 tablet by mouth in the morning. [facility] SERTraline (ZOLOFT) 25 mg tablet 2022-08 0-24 00:00: 00 Yes [id number] 25mg Take 1 tablet by mouth in the morning. [facility] SERTraline (ZOLOFT) 25 mg tablet 2022-08 0 00:00: 00 Yes [id number] 25mg Take 1 tablet by mouth in the morning. [facility] SERTraline (ZOLOFT) 25 mg tablet 2022-08 0 00:00: 00 Yes [id number] 25mg Take 1 tablet by mouth in the morning. [facility] SERTraline (ZOLOFT) 25 mg tablet 2022-08 0 00:00: 00 Yes [id number] 25mg Take 1 tablet by mouth in the morning. [facility] SERTraline (ZOLOFT) 25 mg tablet 2022-08 0 00:00: 00 Yes [id number] 25mg Take 1 tablet by mouth in the morning. [facility] SERTraline (ZOLOFT) 25 mg tablet 2022-08 0-24 00:00: 00 Yes [id number] 25mg Take 1 tablet by mouth in the morning. [facility] SERTraline (ZOLOFT) 25 mg tablet 2022-08 0-24 00:00: 00 Yes [id number] 25mg Take 1 tablet by mouth in the morning. [facility] SERTraline (ZOLOFT) 25 mg tablet 2022 0-24 00:00: 00 Yes [id number] 25mg Take 1 tablet by mouth in the morning. [facility] SERTraline (ZOLOFT) 25 mg tablet 2022-08 0-24 00:00: 00 Yes [id number] 25mg Take 1 tablet by mouth in the morning. [facility] SERTraline (ZOLOFT) 25 mg tablet 2022-08 0-24 00:00: 00 Yes [id number] 25mg Take 1 tablet by mouth in the morning. [facility] SERTraline (ZOLOFT) 25 mg tablet 2022-08 0-24 00:00: 00 Yes [id number] 25mg Take 1 tablet by mouth in the morning. [facility] SERTraline (ZOLOFT) 25 mg tablet 2022-08 0-24 00:00: 00 Yes [id number] 25mg Take 1 tablet by mouth in the morning. [facility] SERTraline (ZOLOFT) 25 mg tablet 2022-08 0- 00:00: 00 Yes [id number] 25mg Take 1 tablet by mouth in the morning. [facility] SERTraline (ZOLOFT) 25 mg tablet 2022-08 0- 00:00: 00 Yes [id number] 25mg Take 1 tablet by mouth in the morning. [facility] SERTraline (ZOLOFT) 25 mg tablet 2022-08 024 00:00: 00 Yes [id number] 25mg Take 1 tablet by mouth in the morning. [facility] SERTraline (ZOLOFT) 25 mg tablet 2022-08 024 00:00: 00 Yes [id number] 25mg Take 1 tablet by mouth in the morning. [facility] SERTraline (ZOLOFT) 25 mg tablet 2022-08 0-24 00:00: 00 08-12 00:00 :00 No [id number] 25mg Take 1 tablet by mouth in the morning. [facility] SERTraline (ZOLOFT) 25 mg tablet 2022-08 0-24 00:00: 00 08-12 00:00 :00 No [id number] 25mg Take 1 tablet by mouth in the morning. [facility] clopidogreL (PLAVIX) 75 mg tablet 75 mg 0 14:00: 00 Yes 75mg 75 mg, Oral, DAILY, First dose on 06/04/23 at 0900, Until Discontinu ed, Routine [facility] ity [facility] amLODIPine 10 mg tablet 2022-08 0-21 00:00: 00 07-05 05:59 :00 No [id number] 10mg Take 1 tablet by mouth in the morning for 30 days. [facility] cl[facility] mg tablet 2022-08 0-21 00:00: 00 07-05 05:59 :00 No [id number] 75mg Take 1 tablet by mouth in the morning for 30 days. [facility] famotidine 20 mg tablet 2022-08 0- 00:00: 00 07-05 05:59 :00 No [id number] 20mg Take 1 tablet by mouth in the morning for 30 days. [facility] amLODIPine 10 mg tablet 2022-08 0 00:00: 00 07-05 05:59 :00 No [id number] 10mg Take 1 tablet by mouth in the morning for 30 days. [facility] clopidogreL 75 mg tablet 2022-08 0 00:00: 00 07-05 05:59 :00 No [id number] 75mg Take 1 tablet by mouth in the morning for 30 days. [facility] fam[facility] mg tablet 2022-08 0 00:00: 00 07-05 05:59 :00 No [id number] 20mg Take 1 tablet by mouth in the morning for 30 days. [facility] amLODIPine 10 mg tablet 2022-08 0- 00:00: 00 07-05 05:59 :00 No [id number] 10mg Take 1 tablet by mouth in the morning for 30 days. [facility] clopid[facility]re[facility] 75 mg tablet 2022-08 0-21 00:00: 00 07-05 05:59 :00 No [id number] 75mg Take 1 tablet by mouth in the morning for 30 days. [facility] famotidine 20 mg tablet 2022-08 0-21 00:00: 00 07-05 05:59 :00 No [id number] 20mg Take 1 tablet by mouth in the morning for 30 days. [facility] amLODIPine 10 mg tablet 2022-08 0-21 00:00: 00 07-05 05:59 :00 No [id number] 10mg Take 1 tablet by mouth in the morning for 30 days. [facility] clopidogreL 75 mg tablet 2022-08 0-21 00:00: 00 07-05 05:59 :00 No [id number] 75mg Take 1 tablet by mouth in the morning for 30 days. [facility] famotidine 20 mg tablet 2022-08 0- 00:00: 00 07-05 05:59 :00 No [id number] 20mg Take 1 tablet by mouth in the morning for 30 days. [facility] amLODIPine 10 mg tablet 2022-08 0 00:00: 00 07-05 05:59 :00 No [id number] 10mg Take 1 tablet by mouth in the morning for 30 days. [facility] clopidogreL 75 mg tablet 2022-08 0 00:00: 00 07-05 05:59 :00 No [id number] 75mg Take 1 tablet by mouth in the morning for 30 days. [facility] famotidine 20 mg tablet 2022-08 0 00:00: 00 07-05 05:59 :00 No [id number] 20mg Take 1 tablet by mouth in the morning for 30 days. [facility] amLODIPine 10 mg tablet 2022-08 0 00:00: 00 07-05 05:59 :00 No [id number] 10mg Take 1 tablet by mouth in the morning for 30 days. [facility] clopidogreL 75 mg tablet 2022-08 0 00:00: 00 07-05 05:59 :00 No [id number] 75mg Take 1 tablet by mouth in the morning for 30 days. [facility] famotidine 20 mg tablet 2022-08 0- 00:00: 00 07-05 05:59 :00 No [id number] 20mg Take 1 tablet by mouth in the morning for 30 days. [facility] amLODIPine 10 mg tablet 2022-08 0 00:00: 00 07-05 05:59 :00 No [id number] 10mg Take 1 tablet by mouth in the morning for 30 days. [facility] clopid[facility] 75 mg tablet 2022-08 0-21 00:00: 00 07-05 05:59 :00 No [id number] 75mg Take 1 tablet by mouth in the morning for 30 days. [facility] famotidine 20 mg tablet 2022-08 0 00:00: 00 07-05 05:59 :00 No [id number] 20mg Take 1 tablet by mouth in the morning for 30 days. [facility] amLODIPine 10 mg tablet 2022-08 0 00:00: 00 07-05 05:59 :00 No [id number] 10mg Take 1 tablet by mouth in the morning for 30 days. [facility] clopidogreL 75 mg tablet 2022-08 0 00:00: 00 07-05 05:59 :00 No [id number] 75mg Take 1 tablet by mouth in the morning for 30 days. [facility] famotidine 20 mg tablet 2022-08 0 00:00: 00 07-05 05:59 :00 No [id number] 20mg Take 1 tablet by mouth in the morning for 30 days. [facility] amLODIPine 10 mg tablet 2022-08 0 00:00: 00 07-05 05:59 :00 No [id number] 10mg Take 1 tablet by mouth in the morning for 30 days. [facility] clopidogreL 75 mg tablet 2022-08 0- 00:00: 00 07-05 05:59 :00 No [id number] 75mg Take 1 tablet by mouth in the morning for 30 days. [facility] famotidine 20 mg tablet 2022-08 0- 00:00: 00 07-05 05:59 :00 No [id number] 20mg Take 1 tablet by mouth in the morning for 30 days. [facility] amLODIPine 10 mg tablet 2022-08 0 00:00: 00 07-05 05:59 :00 No [id number] 10mg Take 1 tablet by mouth in the morning for 30 days. [facility] clopidogreL 75 mg tablet 2022-08 0-21 00:00: 00 07-05 05:59 :00 No [id number] 75mg Take 1 tablet by mouth in the morning for 30 days. [facility] famotidine 20 mg tablet 2022-08 0-21 00:00: 00 07-05 05:59 :00 No [id number] 20mg Take 1 tablet by mouth in the morning for 30 days. [facility] amLODIPine 10 mg tablet 2022-08 0- 00:00: 00 07-05 05:59 :00 No [id number] 10mg Take 1 tablet by mouth in the morning for 30 days. [facility] clopidogreL 75 mg tablet 2022-08 0 00:00: 00 07-05 05:59 :00 No [id number] 75mg Take 1 tablet by mouth in the morning for 30 days. [facility] famotidine 20 mg tablet 2022-08 0 00:00: 00 07-05 05:59 :00 No [id number] 20mg Take 1 tablet by mouth in the morning for 30 days. [facility] amLODIPine 10 mg tablet 2022-08 0- 00:00: 00 07-05 05:59 :00 No [id number] 10mg Take 1 tablet by mouth in the morning for 30 days. [facility] clopidogreL 75 mg tablet 2022-08 0-21 00:00: 00 07-05 05:59 :00 No [id number] 75mg Take 1 tablet by mouth in the morning for 30 days. [facility] famotidine 20 mg tablet 2022-08 0-21 00:00: 00 07-05 05:59 :00 No [id number] 20mg Take 1 tablet by mouth in the morning for 30 days. [facility] amLODIPine 10 mg tablet 2022-08 0-21 00:00: 00 07-05 05:59 :00 No [id number] 10mg Take 1 tablet by mouth in the morning for 30 days. [facility] clopidogreL 75 mg tablet 2022-08 0-21 00:00: 00 07-05 05:59 :00 No [id number] 75mg Take 1 tablet by mouth in the morning for 30 days. [facility] famotidine 20 mg tablet 2022-08 0-21 00:00: 00 07-05 05:59 :00 No [id number] 20mg Take 1 tablet by mouth in the morning for 30 days. [facility] amLODIPine 10 mg tablet 2022-08 0- 00:00: 00 07-05 05:59 :00 No [id number] 10mg Take 1 tablet by mouth in the morning for 30 days. [facility] clopidogreL 75 mg tablet 2022-08 0- 00:00: 00 07-05 05:59 :00 No [id number] 75mg Take 1 tablet by mouth in the morning for 30 days. [facility] famotidine 20 mg tablet 2022-08 0- 00:00: 00 07-05 05:59 :00 No [id number] 20mg Take 1 tablet by mouth in the morning for 30 days. [facility] amLODIPine 10 mg tablet 2022-08 0- 00:00: 00 07-05 05:59 :00 No [id number] 10mg Take 1 tablet by mouth in the morning for 30 days. [facility] clopidogreL 75 mg tablet 2022-08 021 00:00: 00 07-05 05:59 :00 No [id number] 75mg Take 1 tablet by mouth in the morning for 30 days. [facility] famotidine 20 mg tablet 2022-08 0-21 00:00: 00 07-05 05:59 :00 No [id number] 20mg Take 1 tablet by mouth in the morning for 30 days. [facility] amLODIPine 10 mg tablet 2022-08 0-21 00:00: 00 07-05 05:59 :00 No [id number] 10mg Take 1 tablet by mouth in the morning for 30 days. [facility] clopidogreL 75 mg tablet 2022-08 0-21 00:00: 00 07-05 05:59 :00 No [id number] 75mg Take 1 tablet by mouth in the morning for 30 days. [facility] famotidine 20 mg tablet 2022-08 0-21 00:00: 00 07-05 05:59 :00 No [id number] 20mg Take 1 tablet by mouth in the morning for 30 days. [facility] amLODIPine 10 mg tablet 2022-08 0- 00:00: 00 07-05 05:59 :00 No [id number] 10mg Take 1 tablet by mouth in the morning for 30 days. [facility] clopid[facility]reL 75 mg tablet 2022-08 0- 00:00: 00 07-05 05:59 :00 No [id number] 75mg Take 1 tablet by mouth in the morning for 30 days. [facility] famotidine 20 mg tablet 2022-08 0- 00:00: 00 07-05 05:59 :00 No [id number] 20mg Take 1 tablet by mouth in the morning for 30 days. [facility] amLODIPine 10 mg tablet 2022-08 0 00:00: 00 07-05 05:59 :00 No [id number] 10mg Take 1 tablet by mouth in the morning for 30 days. [facility] clopidogreL 75 mg tablet 2022-08 0-21 00:00: 00 07-05 05:59 :00 No [id number] 75mg Take 1 tablet by mouth in the morning for 30 days. [facility] fam[facility] 20 mg tablet 2022-08 0-21 00:00: 00 07-05 05:59 :00 No [id number] 20mg Take 1 tablet by mouth in the morning for 30 days. [facility] amLODIPine 10 mg tablet 2022-08 0-21 00:00: 00 07-05 05:59 :00 No [id number] 10mg Take 1 tablet by mouth in the morning for 30 days. [facility] clopidogreL 75 mg tablet 2022-08 0- 00:00: 00 07-05 05:59 :00 No [id number] 75mg Take 1 tablet by mouth in the morning for 30 days. [facility] famotidine 20 mg tablet 2022-08 0 00:00: 00 07-05 05:59 :00 No [id number] 20mg Take 1 tablet by mouth in the morning for 30 days. [facility] amLODIPine 10 mg tablet 2022-08 00:00: 00 07-05 05:59 :00 No [id number] 10mg Take 1 tablet by mouth in the morning for 30 days. [facility] clopidogreL 75 mg tablet 2022-08 00:00: 00 07-05 05:59 :00 No [id number] 75mg Take 1 tablet by mouth in the morning for 30 days. [facility] famotidine 20 mg tablet 2022-08 00:00: 00 07-05 05:59 :00 No [id number] 20mg Take 1 tablet by mouth in the morning for 30 days. [facility] amLODIPine 10 mg tablet 2022-08 00:00: 00 07-05 05:59 :00 No [id number] 10mg Take 1 tablet by mouth in the morning for 30 days. [facility] clopidogreL 75 mg tablet 2022-08 00:00: 00 07-05 05:59 :00 No [id number] 75mg Take 1 tablet by mouth in the morning for 30 days. [facility] famotidine 20 mg tablet 2022-08 00:00: 00 07-05 05:59 :00 No [id number] 20mg Take 1 tablet by mouth in the morning for 30 days. [facility] warfarin (COUMADIN) tablet 2 mg 2022-08 22:00: 00 Yes 2mg 2 mg, Oral, DAILY AT 1700, First dose (after last modificati on) on Tue06/03/23 at 1700, Until Discontinu ed, Routine
INR Goal Range: 2-3
IND ICATION (More than one indication for warfarin can be selected): Atrial fibrillati on/flutter [facility] clopidogreL (PLAVIX) 300 mg tablet 300 mg 2022-08 15:30: 00 06-03 16:32 :00 No 300mg 300 mg, Oral, ONCE, 1 dose, On Tue06/03/23 at 1030, Routine [facility] warfarin 2.5 mg tablet 2022-08 13:19: 54 06-03 00:00 :00 No Take by mouth. [facility] warfarin 2.5 mg tablet 2022-08 13:19: 54 06-03 00:00 :00 No Take by mouth. [facility] amiodarone 200 mg tablet 2022-08 00:00: 00 Yes [id number] 200mg Take 1 tablet by mouth in the morning. [facility] amiodarone 200 mg tablet 2022-08 00:00: 00 Yes [id number] 200mg Take 1 tablet by mouth in the morning. [facility] amiodarone 200 mg tablet 2022-08 00:00: 00 Yes [id number] 200mg Take 1 tablet by mouth in the morning. [facility] amiodarone 200 mg tablet 2022-08 00:00: 00 Yes [id number] 200mg Take 1 tablet by mouth in the morning. [facility] amiodarone 200 mg tablet 2022-08 00:00: 00 Yes [id number] 200mg Take 1 tablet by mouth in the morning. [facility] amiodarone 200 mg tablet 2022-08 00:00: 00 Yes [id number] 200mg Take 1 tablet by mouth in the morning. [facility] amiodarone 200 mg tablet 2022-08 00:00: 00 Yes [id number] 200mg Take 1 tablet by mouth in the morning. [facility] amiodarone 200 mg tablet 2022-08 0 00:00: 00 Yes [id number] 200mg Take 1 tablet by mouth in the morning. [facility] apixaban 5 mg tablet 2022-08 0-20 00:00: 00 Yes [id number] 5mg Take 1 tablet by mouth in the morning and 1 tablet in the evening. Indication s: atrial fibrillati on [facility] cefpodoxime 200 mg tablet 2022-08 0-20 00:00: 00 Yes [id number] 200mg Take 1 tablet by mouth in the morning and 1 tablet in the evening. [facility] amiodarone 200 mg tablet 2022-08 0-20 00:00: 00 Yes [id number] 200mg Take 1 tablet by mouth in the morning. [facility] amiodarone 200 mg tablet 2022- 0-20 00:00: 00 Yes [id number] 200mg Take 1 tablet by mouth in the morning. [facility] apixaban 5 mg tablet 2022-08 0-20 00:00: 00 Yes [id number] 5mg Take 1 tablet by mouth in the morning and 1 tablet in the evening. Indication s: atrial fibrillati on [facility] cefpodoxime 200 mg tablet 2022-08 0-20 00:00: 00 Yes [id number] 200mg Take 1 tablet by mouth in the morning and 1 tablet in the evening. [facility] amiodarone 200 mg tablet 2022-08 0-20 00:00: 00 Yes [id number] 200mg Take 1 tablet by mouth in the morning. [facility] apixaban 5 mg tablet 2022-08 0-20 00:00: 00 Yes [id number] 5mg Take 1 tablet by mouth in the morning and 1 tablet in the evening. Indication s: atrial fibrillati on [facility] cefpodoxime 200 mg tablet 2022-08 0-20 00:00: 00 Yes [id number] 200mg Take 1 tablet by mouth in the morning and 1 tablet in the evening. [facility] amiodarone 200 mg tablet 2022-08 0-20 00:00: 00 Yes [id number] 200mg Take 1 tablet by mouth in the morning. [facility] apixaban 5 mg tablet 2022- 0-20 00:00: 00 Yes [id number] 5mg Take 1 tablet by mouth in the morning and 1 tablet in the evening. Indication s: atrial fibrillati on [facility] cefpodoxime 200 mg tablet 2022-08 0-20 00:00: 00 Yes [id number] 200mg Take 1 tablet by mouth in the morning and 1 tablet in the evening. [facility] amiodarone 200 mg tablet 2022-08 0-20 00:00: 00 Yes [id number] 200mg Take 1 tablet by mouth in the morning. [facility] apixaban 5 mg tablet 2022-08 0-20 00:00: 00 Yes [id number] 5mg Take 1 tablet by mouth in the morning and 1 tablet in the evening. Indication s: atrial fibrillati on [facility] cefpodoxime 200 mg tablet 2022-08 0-20 00:00: 00 Yes [id number] 200mg Take 1 tablet by mouth in the morning and 1 tablet in the evening. [facility] amiodarone 200 mg tablet 2022-08 0- 00:00: 00 Yes [id number] 200mg Take 1 tablet by mouth in the morning. [facility] amiodarone 200 mg tablet 2022-08 0- 00:00: 00 Yes [id number] 200mg Take 1 tablet by mouth in the morning. [facility] apixaban 5 mg tablet 2022-08 0- 00:00: 00 Yes [id number] 5mg Take 1 tablet by mouth in the morning and 1 tablet in the evening. Indication s: atrial fibrillati on [facility] cefpodoxime 200 mg tablet 2022-08 0-20 00:00: 00 Yes [id number] 200mg Take 1 tablet by mouth in the morning and 1 tablet in the evening. [facility] amiodarone 200 mg tablet 2022- 0-20 00:00: 00 Yes [id number] 200mg Take 1 tablet by mouth in the morning. [facility] apixaban 5 mg tablet 2022- 0-20 00:00: 00 Yes [id number] 5mg Take 1 tablet by mouth in the morning and 1 tablet in the evening. Indication s: atrial fibrillati on [facility] cefpodoxime 200 mg tablet 2022-08 0-20 00:00: 00 Yes [id number] 200mg Take 1 tablet by mouth in the morning and 1 tablet in the evening. [facility] amiodarone 200 mg tablet 2022-08 0-20 00:00: 00 Yes [id number] 200mg Take 1 tablet by mouth in the morning. [facility] apixaban 5 mg tablet 2022-08 0-20 00:00: 00 Yes [id number] 5mg Take 1 tablet by mouth in the morning and 1 tablet in the evening. Indication s: atrial fibrillati on [facility] cefpodoxime 200 mg tablet 2022-08 0-20 00:00: 00 Yes [id number] 200mg Take 1 tablet by mouth in the morning and 1 tablet in the evening. [facility] amiodarone 200 mg tablet 2022-08 0- 00:00: 00 Yes [id number] 200mg Take 1 tablet by mouth in the morning. [facility] apixaban 5 mg tablet 2022-08 0- 00:00: 00 Yes 1358 5mg Take 1 tablet by mouth in the morning and 1 tablet in the evening. Indication s: atrial fibrillati on [facility] cefpodoxime 200 mg tablet 2022-08 0- 00:00: 00 Yes [id number] 200mg Take 1 tablet by mouth in the morning and 1 tablet in the evening. [facility] amiodarone 200 mg tablet 2022-08 0-20 00:00: 00 Yes [id number] 200mg Take 1 tablet by mouth in the morning. [facility] apixaban 5 mg tablet 2022-08 0-20 00:00: 00 Yes 1358 5mg Take 1 tablet by mouth in the morning and 1 tablet in the evening. Indication s: atrial fibrillati on [facility] cefpodoxime 200 mg tablet 2022-08 0-20 00:00: 00 Yes [id number] 200mg Take 1 tablet by mouth in the morning and 1 tablet in the evening. [facility] amiodarone 200 mg tablet 2022- 0-20 00:00: 00 Yes [id number] 200mg Take 1 tablet by mouth in the morning. [facility] apixaban 5 mg tablet 2022- 0-20 00:00: 00 Yes 1358 5mg Take 1 tablet by mouth in the morning and 1 tablet in the evening. Indication s: atrial fibrillati on [facility] cefpodoxime 200 mg tablet 2022- 0-20 00:00: 00 Yes [id number] 200mg Take 1 tablet by mouth in the morning and 1 tablet in the evening. [facility] amiodarone 200 mg tablet 2022-08 0-20 00:00: 00 Yes [id number] 200mg Take 1 tablet by mouth in the morning. [facility] apixaban 5 mg tablet 2022-08 0-20 00:00: 00 Yes 1358 5mg Take 1 tablet by mouth in the morning and 1 tablet in the evening. Indication s: atrial fibrillati on [facility] cefpodoxime 200 mg tablet 2022- 0-20 00:00: 00 Yes [id number] 200mg Take 1 tablet by mouth in the morning and 1 tablet in the evening. [facility] amiodarone 200 mg tablet 2022- 0-20 00:00: 00 Yes [id number] 200mg Take 1 tablet by mouth in the morning. [facility] apixaban 5 mg tablet 2022-08 0-20 00:00: 00 Yes 1358 5mg Take 1 tablet by mouth in the morning and 1 tablet in the evening. Indication s: atrial fibrillati on [facility] cefpodoxime 200 mg tablet 2022- 0-20 00:00: 00 Yes [id number] 200mg Take 1 tablet by mouth in the morning and 1 tablet in the evening. [facility] amiodarone 200 mg tablet 2022- 0-20 00:00: 00 Yes [id number] 200mg Take 1 tablet by mouth in the morning. [facility] apixaban 5 mg tablet 2022-1 0-20 00:00: 00 Yes 1358 5mg Take 1 tablet by mouth in the morning and 1 tablet in the evening. Indication s: atrial fibrillati on [facility] cefpodoxime 200 mg tablet 2022- 0-20 00:00: 00 Yes [id number] 200mg Take 1 tablet by mouth in the morning and 1 tablet in the evening. [facility] amiodarone 200 mg tablet 2022-08 0- 00:00: 00 Yes [id number] 200mg Take 1 tablet by mouth in the morning. [facility] apixaban 5 mg tablet 2022-08 0- 00:00: 00 Yes 1358 5mg Take 1 tablet by mouth in the morning and 1 tablet in the evening. Indication s: atrial fibrillati on [facility] cefpodoxime 200 mg tablet 2022-08 0- 00:00: 00 Yes [id number] 200mg Take 1 tablet by mouth in the morning and 1 tablet in the evening. [facility] apixaban 5 mg tablet 2022-08 0- 00:00: 00 Yes 1358 5mg Take 1 tablet by mouth in the morning and 1 tablet in the evening. Indication s: atrial fibrillati on [facility] cefpodoxime 200 mg tablet 2022-08 0- 00:00: 00 Yes [id number] 200mg Take 1 tablet by mouth in the morning and 1 tablet in the evening. [facility] apixaban 5 mg tablet 2022-08 0- 00:00: 00 Yes 1358 5mg Take 1 tablet by mouth in the morning and 1 tablet in the evening. Indication s: atrial fibrillati on [facility] cefpodoxime 200 mg tablet 2022-08 0- 00:00: 00 Yes [id number] 200mg Take 1 tablet by mouth in the morning and 1 tablet in the evening. [facility] apixaban 5 mg tablet 2022-08 0-20 00:00: 00 Yes 1358 5mg Take 1 tablet by mouth in the morning and 1 tablet in the evening. Indication s: atrial fibrillati on [facility] cefpodoxime 200 mg tablet 2022-08 0-20 00:00: 00 Yes [id number] 200mg Take 1 tablet by mouth in the morning and 1 tablet in the evening. [facility] apixaban 5 mg tablet 2022-08 0-20 00:00: 00 Yes 1358 5mg Take 1 tablet by mouth in the morning and 1 tablet in the evening. Indication s: atrial fibrillati on [facility] cefpodoxime 200 mg tablet 2022- 0-20 00:00: 00 Yes [id number] 200mg Take 1 tablet by mouth in the morning and 1 tablet in the evening. [facility] apixaban 5 mg tablet 2022-08 0-20 00:00: 00 Yes 1358 5mg Take 1 tablet by mouth in the morning and 1 tablet in the evening. Indication s: atrial fibrillati on [facility] cefpodoxime 200 mg tablet 2022-08 0-20 00:00: 00 Yes [id number] 200mg Take 1 tablet by mouth in the morning and 1 tablet in the evening. [facility] apixaban 5 mg tablet 2022-08 0-20 00:00: 00 Yes 1358 5mg Take 1 tablet by mouth in the morning and 1 tablet in the evening. Indication s: atrial fibrillati on [facility] cefpodoxime 200 mg tablet 2022- 0-20 00:00: 00 Yes [id number] 200mg Take 1 tablet by mouth in the morning and 1 tablet in the evening. [facility] cefpodoxime 200 mg tablet 2022-08 0-20 00:00: 00 Yes [id number] 200mg Take 1 tablet by mouth in the morning and 1 tablet in the evening. [facility] cefpodoxime 200 mg tablet 2022- 0-20 00:00: 00 Yes [id number] 200mg Take 1 tablet by mouth in the morning and 1 tablet in the evening. [facility] cefpodoxime 200 mg tablet 2022- 0-20 00:00: 00 Yes [id number] 200mg Take 1 tablet by mouth in the morning and 1 tablet in the evening. [facility] cefpodoxime 200 mg tablet 2022-1 0-20 00:00: 00 Yes [id number] 200mg Take 1 tablet by mouth in the morning and 1 tablet in the evening. [facility] cefpodoxime 200 mg tablet 2022-1 0-20 00:00: 00 Yes [id number] 200mg Take 1 tablet by mouth in the morning and 1 tablet in the evening. [facility] cefpodoxime 200 mg tablet 2022- 0-20 00:00: 00 Yes [id number] 200mg Take 1 tablet by mouth in the morning and 1 tablet in the evening. [facility] cefpodoxime 200 mg tablet 2022- 0-20 00:00: 00 Yes [id number] 200mg Take 1 tablet by mouth in the morning and 1 tablet in the evening. [facility] cefpodoxime 200 mg tablet 2022- 0-20 00:00: 00 Yes [id number] 200mg Take 1 tablet by mouth in the morning and 1 tablet in the evening. [facility] cefpodoxime 200 mg tablet 2022-08 0-20 00:00: 00 Yes [id number] 200mg Take 1 tablet by mouth in the morning and 1 tablet in the evening. [facility] cefpodoxime 200 mg tablet 2022- 0-20 00:00: 00 Yes [id number] 200mg Take 1 tablet by mouth in the morning and 1 tablet in the evening. [facility] cefpodoxime 200 mg tablet 2022- 0-20 00:00: 00 Yes [id number] 200mg Take 1 tablet by mouth in the morning and 1 tablet in the evening. [facility] cefpodoxime 200 mg tablet 2022- 0-20 00:00: 00 Yes [id number] 200mg Take 1 tablet by mouth in the morning and 1 tablet in the evening. [facility] cefpodoxime 200 mg tablet 2022- 0-20 00:00: 00 Yes [id number] 200mg Take 1 tablet by mouth in the morning and 1 tablet in the evening. [facility] cefpodoxime 200 mg tablet 2022-1 0-20 00:00: 00 Yes [id number] 200mg Take 1 tablet by mouth in the morning and 1 tablet in the evening. [facility] cefpodoxime 200 mg tablet 2022- 0-20 00:00: 00 Yes [id number] 200mg Take 1 tablet by mouth in the morning and 1 tablet in the evening. [facility] cefpodoxime 200 mg tablet 2022-0820 00:00: 00 Yes [id number] 200mg Take 1 tablet by mouth in the morning and 1 tablet in the evening. [facility] cefpodoxime 200 mg tablet 2022-08 0 00:00: 00 Yes [id number] 200mg Take 1 tablet by mouth in the morning and 1 tablet in the evening. [facility] cefpodoxime 200 mg tablet 2022-08 00:00: 00 Yes [id number] 200mg Take 1 tablet by mouth in the morning and 1 tablet in the evening. [facility] cefpodoxime 200 mg tablet 2022-08 00:00: 00 Yes [id number] 200mg Take 1 tablet by mouth in the morning and 1 tablet in the evening. [facility] cefpodoxime 200 mg tablet 2022-08 00:00: 00 08-12 00:00 :00 No [id number] 200mg Take 1 tablet by mouth in the morning and 1 tablet in the evening. [facility] cefpodoxime 200 mg tablet 2022-08 00:00: 00 08-12 00:00 :00 No [id number] 200mg Take 1 tablet by mouth in the morning and 1 tablet in the evening. [facility] metoprolol tartrate 25 mg tablet 2022-08 00:00: 00 07-04 05:59 :00 No [id number] 25mg Take 1 tablet by mouth in the morning and 1 tablet in the evening. Do all this for 30 days. [facility] mirtazapine 7.5 mg tablet 2022-08 00:00: 00 07-04 05:59 :00 No [id number] 7.5mg Take 1 tablet by mouth at bedtime for 30 days. [facility] apixaban (ELIQUIS) 5 mg tablet 2022-08 00:00: 00 07-04 05:59 :00 No 1358 5mg Take 1 tablet by mouth in the morning and 1 tablet in the evening. Do all this for 30 days. Indication s: atrial fibrillati on [facility] metoprolol tartrate 25 mg tablet 2022-08 020 00:00: 00 07-04 05:59 :00 No [id number] 25mg Take 1 tablet by mouth in the morning and 1 tablet in the evening. Do all this for 30 days. [facility] mirtazapine 7.5 mg tablet 2022-08 0-20 00:00: 00 07-04 05:59 :00 No [id number] 7.5mg Take 1 tablet by mouth at bedtime for 30 days. [facility] apixaban (ELIQUIS) 5 mg tablet 2022-08 0 00:00: 00 07-04 05:59 :00 No 1358 5mg Take 1 tablet by mouth in the morning and 1 tablet in the evening. Do all this for 30 days. Indication s: atrial fibrillati on [facility] metoprolol tartrate 25 mg tablet 2022-08 0 00:00: 00 07-04 05:59 :00 No [id number] 25mg Take 1 tablet by mouth in the morning and 1 tablet in the evening. Do all this for 30 days. [facility] mirtazapine 7.5 mg tablet 2022-08 0 00:00: 00 07-04 05:59 :00 No [id number] 7.5mg Take 1 tablet by mouth at bedtime for 30 days. [facility] apixaban (ELIQUIS) 5 mg tablet 2022-08 0 00:00: 00 07-04 05:59 :00 No 1358 5mg Take 1 tablet by mouth in the morning and 1 tablet in the evening. Do all this for 30 days. Indication s: atrial fibrillati on [facility] metoprolol tartrate 25 mg tablet 2022-08 0-20 00:00: 00 07-04 05:59 :00 No [id number] 25mg Take 1 tablet by mouth in the morning and 1 tablet in the evening. Do all this for 30 days. [facility] mirtazapine 7.5 mg tablet 2022-08 0 00:00: 00 07-04 05:59 :00 No [id number] 7.5mg Take 1 tablet by mouth at bedtime for 30 days. [facility] apixaban (ELIQUIS) 5 mg tablet 2022-08 0-20 00:00: 00 07-04 05:59 :00 No 1358 5mg Take 1 tablet by mouth in the morning and 1 tablet in the evening. Do all this for 30 days. Indication s: atrial fibrillati on [facility] metoprolol tartrate 25 mg tablet 2022-08 0-20 00:00: 00 07-04 05:59 :00 No [id number] 25mg Take 1 tablet by mouth in the morning and 1 tablet in the evening. Do all this for 30 days. [facility] mirtazapine 7.5 mg tablet 2022-08 0 00:00: 00 07-04 05:59 :00 No [id number] 7.5mg Take 1 tablet by mouth at bedtime for 30 days. [facility] apixaban (ELIQUIS) 5 mg tablet 2022-08 0 00:00: 00 07-04 05:59 :00 No 1358 5mg Take 1 tablet by mouth in the morning and 1 tablet in the evening. Do all this for 30 days. Indication s: atrial fibrillati on [facility] metoprolol tartrate 25 mg tablet 2022-08 0-20 00:00: 00 07-04 05:59 :00 No [id number] 25mg Take 1 tablet by mouth in the morning and 1 tablet in the evening. Do all this for 30 days. [facility] mirtazapine 7.5 mg tablet 2022-08 0-20 00:00: 00 07-04 05:59 :00 No [id number] 7.5mg Take 1 tablet by mouth at bedtime for 30 days. [facility] apixaban (ELIQUIS) 5 mg tablet 2022-08 0-20 00:00: 00 07-04 05:59 :00 No 1358 5mg Take 1 tablet by mouth in the morning and 1 tablet in the evening. Do all this for 30 days. Indication s: atrial fibrillati on [facility] metoprolol tartrate 25 mg tablet 2022-08 0-20 00:00: 00 07-04 05:59 :00 No [id number] 25mg Take 1 tablet by mouth in the morning and 1 tablet in the evening. Do all this for 30 days. [facility] mirtazapine 7.5 mg tablet 2022-08 0-20 00:00: 00 07-04 05:59 :00 No [id number] 7.5mg Take 1 tablet by mouth at bedtime for 30 days. [facility] apixaban (ELIQUIS) 5 mg tablet 2022-08 0 00:00: 00 07-04 05:59 :00 No 1358 5mg Take 1 tablet by mouth in the morning and 1 tablet in the evening. Do all this for 30 days. Indication s: atrial fibrillati on [facility] metoprolol tartrate 25 mg tablet 2022-08 0- 00:00: 00 07-04 05:59 :00 No [id number] 25mg Take 1 tablet by mouth in the morning and 1 tablet in the evening. Do all this for 30 days. [facility] mirtazapine 7.5 mg tablet 2022-08 0- 00:00: 00 07-04 05:59 :00 No [id number] 7.5mg Take 1 tablet by mouth at bedtime for 30 days. [facility] apixaban (ELIQUIS) 5 mg tablet 2022-08 020 00:00: 00 07-04 05:59 :00 No 1358 5mg Take 1 tablet by mouth in the morning and 1 tablet in the evening. Do all this for 30 days. Indication s: atrial fibrillati on [facility] metoprolol tartrate 25 mg tablet 2022-08 0-20 00:00: 00 07-04 05:59 :00 No [id number] 25mg Take 1 tablet by mouth in the morning and 1 tablet in the evening. Do all this for 30 days. [facility] mirtazapine 7.5 mg tablet 2022-08 0-20 00:00: 00 07-04 05:59 :00 No [id number] 7.5mg Take 1 tablet by mouth at bedtime for 30 days. [facility] apixaban (ELIQUIS) 5 mg tablet 2022-08 020 00:00: 00 07-04 05:59 :00 No 1358 5mg Take 1 tablet by mouth in the morning and 1 tablet in the evening. Do all this for 30 days. Indication s: atrial fibrillati on [facility] metoprolol tartrate 25 mg tablet 2022-08 0 00:00: 00 07-04 05:59 :00 No [id number] 25mg Take 1 tablet by mouth in the morning and 1 tablet in the evening. Do all this for 30 days. [facility] mirtazapine 7.5 mg tablet 2022-08 0 00:00: 00 07-04 05:59 :00 No [id number] 7.5mg Take 1 tablet by mouth at bedtime for 30 days. [facility] apixaban (ELIQUIS) 5 mg tablet 2022-08 0 00:00: 00 07-04 05:59 :00 No 1358 5mg Take 1 tablet by mouth in the morning and 1 tablet in the evening. Do all this for 30 days. Indication s: atrial fibrillati on [facility] metoprolol tartrate 25 mg tablet 2022-08 0 00:00: 00 07-04 05:59 :00 No [id number] 25mg Take 1 tablet by mouth in the morning and 1 tablet in the evening. Do all this for 30 days. [facility] mirtazapine 7.5 mg tablet 2022-08 0-20 00:00: 00 07-04 05:59 :00 No [id number] 7.5mg Take 1 tablet by mouth at bedtime for 30 days. [facility] apixaban (ELIQUIS) 5 mg tablet 2022-08 020 00:00: 00 07-04 05:59 :00 No 1358 5mg Take 1 tablet by mouth in the morning and 1 tablet in the evening. Do all this for 30 days. Indication s: atrial fibrillati on [facility] metoprolol tartrate 25 mg tablet 2022-08 0-20 00:00: 00 07-04 05:59 :00 No [id number] 25mg Take 1 tablet by mouth in the morning and 1 tablet in the evening. Do all this for 30 days. [facility] mirtazapine 7.5 mg tablet 2022-08 0 00:00: 00 07-04 05:59 :00 No [id number] 7.5mg Take 1 tablet by mouth at bedtime for 30 days. [facility] apixaban (ELIQUIS) 5 mg tablet 2022-08 0 00:00: 00 07-04 05:59 :00 No 1358 5mg Take 1 tablet by mouth in the morning and 1 tablet in the evening. Do all this for 30 days. Indication s: atrial fibrillati on [facility] metoprolol tartrate 25 mg tablet 2022-08 0 00:00: 00 07-04 05:59 :00 No [id number] 25mg Take 1 tablet by mouth in the morning and 1 tablet in the evening. Do all this for 30 days. [facility] mirtazapine 7.5 mg tablet 2022-08 0 00:00: 00 07-04 05:59 :00 No [id number] 7.5mg Take 1 tablet by mouth at bedtime for 30 days. [facility] apixaban (ELIQUIS) 5 mg tablet 2022-08 020 00:00: 00 07-04 05:59 :00 No 1358 5mg Take 1 tablet by mouth in the morning and 1 tablet in the evening. Do all this for 30 days. Indication s: atrial fibrillati on [facility] metoprolol tartrate 25 mg tablet 2022-08 0-20 00:00: 00 07-04 05:59 :00 No [id number] 25mg Take 1 tablet by mouth in the morning and 1 tablet in the evening. Do all this for 30 days. [facility] mirtazapine 7.5 mg tablet 2022-08 0-20 00:00: 00 07-04 05:59 :00 No [id number] 7.5mg Take 1 tablet by mouth at bedtime for 30 days. [facility] apixaban (ELIQUIS) 5 mg tablet 2022-08 0-20 00:00: 00 07-04 05:59 :00 No 1358 5mg Take 1 tablet by mouth in the morning and 1 tablet in the evening. Do all this for 30 days. Indication s: atrial fibrillati on [facility] metoprolol tartrate 25 mg tablet 2022-08 0-20 00:00: 00 07-04 05:59 :00 No [id number] 25mg Take 1 tablet by mouth in the morning and 1 tablet in the evening. Do all this for 30 days. [facility] mirtazapine 7.5 mg tablet 2022-08 0 00:00: 00 07-04 05:59 :00 No [id number] 7.5mg Take 1 tablet by mouth at bedtime for 30 days. [facility] apixaban (ELIQUIS) 5 mg tablet 2022-08 020 00:00: 00 07-04 05:59 :00 No 1358 5mg Take 1 tablet by mouth in the morning and 1 tablet in the evening. Do all this for 30 days. Indication s: atrial fibrillati on [facility] metoprolol tartrate 25 mg tablet 2022-08 0-20 00:00: 00 07-04 05:59 :00 No [id number] 25mg Take 1 tablet by mouth in the morning and 1 tablet in the evening. Do all this for 30 days. [facility] mirtazapine 7.5 mg tablet 2022-08 0-20 00:00: 00 07-04 05:59 :00 No [id number] 7.5mg Take 1 tablet by mouth at bedtime for 30 days. [facility] apixaban (ELIQUIS) 5 mg tablet 2022-08 0-20 00:00: 00 07-04 05:59 :00 No 1358 5mg Take 1 tablet by mouth in the morning and 1 tablet in the evening. Do all this for 30 days. Indication s: atrial fibrillati on [facility] metoprolol tartrate 25 mg tablet 2022-08 0 00:00: 00 07-04 05:59 :00 No [id number] 25mg Take 1 tablet by mouth in the morning and 1 tablet in the evening. Do all this for 30 days. [facility] mirtazapine 7.5 mg tablet 2022-08 0 00:00: 00 07-04 05:59 :00 No [id number] 7.5mg Take 1 tablet by mouth at bedtime for 30 days. [facility] apixaban (ELIQUIS) 5 mg tablet 2022-08 00:00: 00 07-04 05:59 :00 No 1358 5mg Take 1 tablet by mouth in the morning and 1 tablet in the evening. Do all this for 30 days. Indication s: atrial fibrillati on [facility] metoprolol tartrate 25 mg tablet 2022-08 00:00: 00 07-04 05:59 :00 No [id number] 25mg Take 1 tablet by mouth in the morning and 1 tablet in the evening. Do all this for 30 days. [facility] mirtazapine 7.5 mg tablet 2022-08 00:00: 00 07-04 05:59 :00 No [id number] 7.5mg Take 1 tablet by mouth at bedtime for 30 days. [facility] apixaban (ELIQUIS) 5 mg tablet 2022-08 00:00: 00 07-04 05:59 :00 No 1358 5mg Take 1 tablet by mouth in the morning and 1 tablet in the evening. Do all this for 30 days. Indication s: atrial fibrillati on [facility] metoprolol tartrate 25 mg tablet 2022-08 0 00:00: 00 07-04 05:59 :00 No [id number] 25mg Take 1 tablet by mouth in the morning and 1 tablet in the evening. Do all this for 30 days. [facility] mirtazapine 7.5 mg tablet 2022-08 0-20 00:00: 00 07-04 05:59 :00 No [id number] 7.5mg Take 1 tablet by mouth at bedtime for 30 days. [facility] apixaban (ELIQUIS) 5 mg tablet 2022-08 0-20 00:00: 00 07-04 05:59 :00 No 1358 5mg Take 1 tablet by mouth in the morning and 1 tablet in the evening. Do all this for 30 days. Indication s: atrial fibrillati on [facility] metoprolol tartrate 25 mg tablet 2022-08 020 00:00: 00 07-04 05:59 :00 No [id number] 25mg Take 1 tablet by mouth in the morning and 1 tablet in the evening. Do all this for 30 days. [facility] mirtazapine 7.5 mg tablet 2022-08 0 00:00: 00 07-04 05:59 :00 No [id number] 7.5mg Take 1 tablet by mouth at bedtime for 30 days. [facility] apixaban (ELIQUIS) 5 mg tablet 2022-08 0 00:00: 00 07-04 05:59 :00 No 1358 5mg Take 1 tablet by mouth in the morning and 1 tablet in the evening. Do all this for 30 days. Indication s: atrial fibrillati on [facility] metoprolol tartrate 25 mg tablet 2022-08 020 00:00: 00 07-04 05:59 :00 No [id number] 25mg Take 1 tablet by mouth in the morning and 1 tablet in the evening. Do all this for 30 days. [facility] mirtazapine 7.5 mg tablet 2022-08 0-20 00:00: 00 07-04 05:59 :00 No [id number] 7.5mg Take 1 tablet by mouth at bedtime for 30 days. [facility] apixaban (ELIQUIS) 5 mg tablet 2022-08 0-20 00:00: 00 07-04 05:59 :00 No 1358 5mg Take 1 tablet by mouth in the morning and 1 tablet in the evening. Do all this for 30 days. Indication s: atrial fibrillati on [facility] amiodarone 200 mg tablet 2022-08 00:00: 00 06-21 00:00 :00 No [id number] 200mg Take 1 tablet by mouth in the morning. [facility] amiodarone 200 mg tablet 2022-08 00:00: 00 06-21 00:00 :00 No [id number] 200mg Take 1 tablet by mouth in the morning. [facility] amiodarone 200 mg tablet 2022-08 00:00: 00 06-21 00:00 :00 No [id number] 200mg Take 1 tablet by mouth in the morning. [facility] warfarin (COUMADIN) tablet 1 mg 2022-08 22:00: 00 Yes 1mg 1 mg, Oral, DAILY AT 1700, First dose (after last modificati on) on Lilo 06/02/23 at 1700, Until Discontinu ed, Routine
INR Goal Range: 2-3
IND ICATION (More than one indication for warfarin can be selected): Atrial fibrillati on/flutter [facility] warfarin (COUMADIN) tablet 1 mg 2022-08 22:00: 00 06-03 13:55 :29 No 1mg 1 mg, Oral, DAILY AT 1700, First dose (after last modificati on) on Lilo 06/02/23 at 1700, Until Discontinu ed, Routine
INR Goal Range: 2-3
IND ICATION (More than one indication for warfarin can be selected): Atrial fibrillati on/flutter [facility] iopamidol (ISOVUE 370-500 mL) injection 2022-08 19:11: 00 06-01 19:33 :28 No PRN, Starting on Tue06/01/23 at 1411, Until Tue06/01/23 at 1433, Routine, Intra-op [facility] lidocaine 1% (PF) (XYLOCAINE) injection 2023-1 0-18 19:11: 00 06-01 19:33 :28 No PRN, Starting on Tue06/01/23 at 1411, Until Tue06/01/23 at 1433, Routine, Intra-op [facility] heparin 1,000 unit/mL 10,000 Units in NaCl 0.9% (NS) 10,000 mL OR irrigation 2022-08 18:36: 00 06-01 19:33 :28 No PRN, Starting on Tue06/01/23 at 1336, Intra-op [facility] famotidine (PEPCID AC) tablet 20 mg 2022-08 22:09: 00 Yes 20mg 20 mg, Oral, DAILY, First dose on Tue05/31/23 at 1715, Until Discontinu ed, Routine [facility] famotidine (PEPCID AC) tablet 20 mg 2022-08 22:09: 00 Yes 20mg 20 mg, Oral, DAILY, First dose on Tue05/31/23 at 1715, Until Discontinu ed, Routine [facility] warfarin (COUMADIN) tablet 1 mg 2022-08 22:00: 00 06-01 18:19 :27 No 1mg 1 mg, Oral, DAILY AT 1700, First dose on Tue05/31/23 at 1700, Until Discontinu ed, Routine
INR Goal Range: 2-3
IND ICATION (More than one indication for warfarin can be selected): Atrial fibrillati on/flutter [facility] proMETHazin e (PHENERGAN) 12.5 mg in NS 50 mL IV piggyback (CNR) 2022-08 15:36: 13 Yes 12.5mg 12.5 mg, IV Piggyback, at 200 mL/hr Administer over 15 Minutes, Q4HPRN, Starting on Tue05/31/23 at 1036, Until Discontinu ed, Routine, Nausea and Vomiting (N/V), N/V unresponsi ve to Ondansetro n [facility] proMETHazin e (PHENERGAN) 12.5 mg in NS 50 mL IV piggyback (CNR) 2022-08 15:36: 13 Yes 12.5mg 12.5 mg, IV Piggyback, at 200 mL/hr Administer over 15 Minutes, Q4HPRN, Starting on Tue05/31/23 at 1036, Until Discontinu ed, Routine, Nausea and Vomiting (N/V), N/V unresponsi ve to Ondansetro n [facility] amiodarone (PACERONE) tablet 200 mg 2022-08 14:00: 00 Yes [id number] 200mg 200 mg, Oral, DAILY, First dose on Tue05/31/23 at 0900, Until Discontinu ed, Routine [facility] amiodarone (PACERONE) tablet 200 mg 2022-08 14:00: 00 Yes [id number] 200mg 200 mg, Oral, DAILY, First dose on Tue05/31/23 at 0900, Until Discontinu ed, Routine [facility] amiodarone 200 mg tablet 2022-08 00:00: 00 07-02 05:59 :00 No [id number] 200mg Take 1 tablet by mouth in the morning and 1 tablet in the evening. Do all this for 14 days. Take 1 tablet by mouth in the morning for 30 days. [facility] amiodarone 200 mg tablet 2022-08 00:00: 00 07-02 05:59 :00 No [id number] 200mg Take 1 tablet by mouth in the morning and 1 tablet in the evening. Do all this for 14 days. Take 1 tablet by mouth in the morning for 30 days. [facility] amiodarone 200 mg tablet 2022-08 00:00: 00 05-20 00:00 :00 No [id number] 200mg Take 1 tablet by mouth in the morning and 1 tablet in the evening. Do all this for 14 days. Take 1 tablet by mouth in the morning for 30 days. [facility] amiodarone 200 mg tablet 2022-08 00:00: 00 05-20 00:00 :00 No [id number] 200mg Take 1 tablet by mouth in the morning and 1 tablet in the evening. Do all this for 14 days. Take 1 tablet by mouth in the morning for 30 days. [facility] HYDROcodone -acetaminop hen (NORCO 5) 5-325 mg tablet 1 tablet 2022-08 21:14: 02 Yes 1{tbl} 1 tablet, Oral, Q4HPRN, Starting on Tue05/30/23 at 1614, Until Discontinu ed, Routine, Pain (scale 4-6) [facility] HYDROcodone -acetaminop hen (NORCO 5) 5-325 mg tablet 1 tablet 2022-08 21:14: 02 Yes 1{tbl} 1 tablet, Oral, Q4HPRN, Starting on Tue05/30/23 at 1614, Until Discontinu ed, Routine, Pain (scale 4-6) [facility] amLODIPine (NORVASC) tablet 10 mg 2022-08 20:30: 00 Yes 10mg 10 mg, Oral, DAILY, First dose on Tue05/30/23 at 1530, Until Discontinu ed, Routine [facility] amLODIPine (NORVASC) tablet 10 mg 2022-08 20:30: 00 Yes 10mg 10 mg, Oral, DAILY, First dose on Tue05/30/23 at 1530, Until Discontinu ed, Routine [facility] ergocalcife rol (vitamin d2) (CALCIFEROL ) capsule 50,000 Units 2022-08 14:00: 00 Yes [id number] 50,000 Units, Oral, QWEEKLY, First dose on Tue05/30/23 at 0900, Until Discontinu ed, Routine [facility] ergocalcife rol (vitamin d2) (CALCIFEROL ) capsule 50,000 Units 2022-08 14:00: 00 Yes [id number] 50,000 Units, Oral, QWEEKLY, First dose on Tue05/30/23 at 0900, Until Discontinu ed, Routine [facility] D5W 0.9% NaCl (NS) 1 L + KCL 20 mEq 2022-08 0 13:30: 00 05-30 21:15 :02 No IV Infusion, at 75 mL/hr, CONTINUOUS , Starting on 05/29/23 at 0830, Until 05/30/23 at 1615, Routine [facility] mirtazapine (REMERON) tablet 7.5 mg 2022-08 02:00: 00 Yes 7.5mg 7.5 mg, Oral, QHS, First dose on 05/28/23 at 2100, Until Discontinu ed, Routine [facility] mirtazapine (REMERON) tablet 7.5 mg 2022-08 02:00: 00 Yes 7.5mg 7.5 mg, Oral, QHS, First dose on 05/28/23 at 2100, Until Discontinu ed, Routine [facility] NaCl 0.9% (NS) 1000 mL + KCL 20 mEq 2022-08 16:15: 00 05-29 12:24 :33 No IV Infusion, at 75 mL/hr, CONTINUOUS , Starting on 05/28/23 at 1115, Until [place] 05/29/23 at 0724, Routine [facility] KCL (KLOR-CON M20) tablet 40 mEq 2022-08 15:00: 00 05-28 15:15 :00 No 40meq 40 mEq, Oral, ONCE, 1 dose, On 05/28/23 at 1000, [facility] (LOPRESSOR[facility] tablet 25 mg 2022-08 13:00: 00 Yes [id number] 25mg 25 mg, Oral, BID, First dose (after last modificati on) on 05/28/23 at 0800, Until Discontinu ed, Routine [facility] met[facility] (LOPRESSOR) tablet 25 mg 2022-08 13:00: 00 Yes [id number] 25mg 25 mg, Oral, BID, First dose (after last modificati on) on 05/28/23 at 0800, Until Discontinu ed, Routine [facility] proMETHazin e (PHENERGAN) 25 mg in NS 50 mL IV piggyback (CNR) 2022-08 12:45: 00 05-31 15:36 :44 No 25mg 25 mg, IV Piggyback, at 200 mL/hr Administer over 15 Minutes, Q6H ABX, First dose (after last reorder) on 05/28/23 at 0745, Until Discontinu ed, Routine [facility] KCL 20 mEq/15 mL solution 40 mEq 2022-08 12:00: 00 05-28 11:34 :00 No 40meq 40 mEq, Oral, ONCE, 1 dose, On 05/28/23 at 0700, Routine [facility] doxylamine (SLEEP AID) tablet 25 mg 2022-08 06:30: 00 05-28 06:05 :00 No 25mg 25 mg, Oral, ONCE, 1 dose, On 05/28/23 at 0130, Routine [facility] calcium carbonate (OSCAL-500) tablet 500 mg 2022-08 03:15: 00 05-28 02:33 :00 No 500mg 500 mg, Oral, ONCE, 1 dose, On Tue05/27/23 at 2215, Routine [facility] warfarin (COUMADIN) tablet 1 mg 2022-08 22:00: 00 05-28 15:26 :43 No 1mg 1 mg, Oral, DAILY AT 1700, First dose on Tue05/27/23 at 1700, Until Discontinu ed, Routine
INR Goal Range: 2.5-3
I NDICATION (More than one indication for warfarin can be selected): Atrial fibrillati on/flutter [facility] NaCl 0.9% (NS) 1000 mL + KCL 20 mEq 2022-08 20:15: 00 05-28 16:06 :38 No IV Infusion, at 50 mL/hr, CONTINUOUS , Starting on Tue05/27/23 at 1515, Until 05/28/23 at 1106, Routine [facility] nystatin (NYSTOP) powder 2022-08 01:00: 00 Yes Topical, BID, First dose on [place] 05/26/23 at 2000, Until Discontinu ed, Routine [facility] nystatin (NYSTOP) powder 2022-08 01:00: 00 Yes Topical, BID, First dose on Tue05/26/23 at 1999, Until Discontinu ed, Routine [facility] metoprolol tartrate (LOPRESSOR) tablet 100 mg 2022-08 01:00: 00 05-27 21:04 :26 No 100mg 100 mg, Oral, BID, First dose (after last modificati on) on Tue05/26/23 at 2000, Until Discontinu ed, Routine [facility] magnesium sulfate in water 2 gram/50 mL (4 %) infusion 2 g 2022-08 22:45: 00 05-27 02:42 :00 No 2g 2 g, IV Piggyback, Administer over 60 Minutes, ONCE, 1 dose, On [place] 05/26/23 at 1745, Routine [facility] potassium chloride in water (KCL) 20 mEq/100 mL RTU IVPB 20 mEq 2022-08 22:45: 00 05-27 01:08 :00 No 20meq 20 mEq, IV Piggyback, ONCE, 1 dose, On Tue05/26/23 at 1745, 100 mL [facility] traMADoL (ULTRAM) tablet 50 mg 2022-08 21:49: 26 05-30 21:15 :02 No 50mg 50 mg, Oral, Q4HPRN, Starting on Tue05/26/23 at 1649, Until Tue05/30/23 at 1615, Routine, Pain (scale 7-10) [facility] benzocaine- menthoL (CEPACOL SORE THROAT (PACHECO-MEN)) lozenge 1 Lozenge 2022-08 17:24: 16 Yes 1{lozen ge} 1 Lozenge, Oral, Q4HPRN, Starting on Tue05/26/23 at 1224, Until Discontinu ed, Routine, Sore throat [facility] benzocaine- menthoL (CEPACOL SORE THROAT (PACHECO-MEN)) lozenge 1 Lozenge 2022-08 17:24: 16 Yes 1{lozen ge} 1 Lozenge, Oral, Q4HPRN, Starting on Tue05/26/23 at 1224, Until Discontinu ed, Routine, Sore throat [facility] metoprolol (LOPRESSOR) injection 5 mg 2022-08 17:15: 00 Yes 5mg 5 mg, Intravenou s, Q4HPRN, Starting on Tue05/26/23 at 1215, Until Discontinu ed, Routine, HR above 110 [facility] metoprolol (LOPRESSOR) injection 5 mg 2022-08 17:15: 00 Yes 5mg 5 mg, Intravenou s, Q4HPRN, Starting on Tue05/26/23 at 1215, Until Discontinu ed, Routine, HR above 110 [facility] metoprolol tartrate (LOPRESSOR) tablet 100 mg 2022-08 15:00: 00 05-26 15:43 :00 No 100mg 100 mg, Oral, ONCE, 1 dose, On Tue05/26/23 at 1000, Routine [facility] NaCl 0.9% (NS) IV infusion 1,000 mL 2022-08 10:30: 00 05-26 20:29 :00 No 1000mL at 50 mL/hr, IV Infusion, CONTINUOUS , Starting on Tue05/26/23 at 0530, Until Tue05/26/23 at 1529, Routine [facility] KCL (KLOR-CON M20) tablet 60 mEq 2022-08 10:00: 00 05-26 10:23 :00 No 60meq 60 mEq, Oral, ONCE, 1 dose, On Tue05/26/23 at 0500, Routine [facility] proMETHazin e (PHENERGAN) 25 mg in NS 50 mL IV piggyback (CNR) 2022-08 02:00: 00 05-27 14:18 :00 No 25mg 25 mg, IV Piggyback, at 200 mL/hr Administer over 15 Minutes, Q6H ABX, 7 doses, First dose (after last modificati on) on Tue05/25/23 at 2100, Last dose on Tue05/27/23 at 0900, Routine [facility] iopamidol (ISOVUE 370-500 mL) injection 80 mL 2022-08 21:15: 00 05-25 20:12 :00 No [id number] 80mL 80 mL, Intravenou s, ONCE, 1 dose, On Tue05/25/23 at 1615, Routine [facility] ondansetron (ZOFRAN (PF)) injection 4 mg 2022-08 20:42: 43 Yes 4mg 4 mg, Slow IV Push, Q8HPRN, Starting on Tue05/25/23 at 1542, Until Discontinu ed, Routine, N/V alternatin g with Promethazi ne [facility] ondansetron (ZOFRAN (PF)) injection 4 mg 2022-08 20:42: 43 Yes 4mg 4 mg, Slow IV Push, Q8HPRN, Starting on Tue05/25/23 at 1542, Until Discontinu ed, Routine, N/V alternatin g with Promethazi ne [facility] labetaloL (NORMODYNE) injection 20 mg 2022-08 08:45: 00 05-25 08:10 :00 No 20mg 20 mg, Slow IV Push, ONCE, 1 dose, On Tue05/25/23 at 0345, Routine [facility] NaCl 0.9% (NS) IV infusion 1,000 mL 2022-08 08:15: 00 05-26 09:14 :58 No 1000mL at 50 mL/hr, IV Infusion, CONTINUOUS , Starting on Tue05/25/23 at 0315, Until Tue05/26/23 at 0414, Routine [facility] hydralAZINE (APRESOLINE ) injection 10 mg 2022-08 04:51: 20 Yes 10mg 10 mg, Slow IV Push, Q4HPRN, Starting on Tue05/24/23 at 2351, Until Discontinu ed, Routine, DBP=>100; SBP=>160 [facility] hydralAZINE (APRESOLINE ) injection 10 mg 2022-08 04:51: 20 Yes 10mg 10 mg, Slow IV Push, Q4HPRN, Starting on Tue05/24/23 at 2351, Until Discontinu ed, Routine, DBP=>100; SBP=>160 [facility] atorvastati n (LIPITOR) tablet 80 mg 2022-08 02:00: 00 Yes 80mg 80 mg, Oral, QHS, First dose on Tue05/24/23 at 2100, Until Discontinu ed, Routine [facility] atorvastati n (LIPITOR) tablet 80 mg 2022-08 02:00: 00 Yes 80mg 80 mg, Oral, QHS, First dose on Tue05/24/23 at 2100, Until Discontinu ed, Routine [facility] furosemide (LASIX) injection 40 mg 2022-08 21:45: 00 05-26 01:21 :12 No 40mg 40 mg, Slow IV Push, Q12H ABX, First dose on Tue05/24/23 at 1645, Until Discontinu ed, Routine [facility] ketorolac (TORADOL) injection 15 mg 2022-08 20:40: 25 05-27 20:39 :25 No 15mg 15 mg, Slow IV Push, Q6HPRN, Starting on Tue05/24/23 at 1540, Until Tue05/27/23 at 1539, Routine, chest pain [facility] pantoprazol e (PROTONIX) injection 40 mg 2022-08 16:15: 00 Yes 40mg 40 mg, Slow IV Push, Q12H, First dose on Tue05/24/23 at 1115, Until Discontinu ed [facility] pantoprazol e (PROTONIX) injection 40 mg 2022-08 16:15: 00 Yes 40mg 40 mg, Slow IV Push, Q12H, First dose on Tue05/24/23 at 1115, Until Discontinu ed [facility] docusate (COLACE) capsule 100 mg 2022-08 14:00: 00 Yes 100mg 100 mg, Oral, DAILY, First dose on Tue05/24/23 at 0900, Until Discontinu ed, Routine [facility] ezetimibe (ZETIA) tablet 10 mg 2022-0810 14:00: 00 Yes 10mg 10 mg, Oral, DAILY, First dose on Tue05/24/23 at 0900, Until Discontinu ed, Routine [facility] docusate (COLACE) capsule 100 mg 2022-08 14:00: 00 Yes 100mg 100 mg, Oral, DAILY, First dose on Tue05/24/23 at 0900, Until Discontinu ed, Routine [facility] ezetimibe (ZETIA) tablet 10 mg 2022-08 14:00: 00 Yes 10mg 10 mg, Oral, DAILY, First dose on Tue05/24/23 at 0900, Until Discontinu ed, Routine [facility] methocarbam oL (ROBAXIN) tablet 500 mg 2022-08 13:00: 00 Yes 500mg 500 mg, Oral, BID, First dose on Tue05/24/23 at 0800, Until Discontinu ed, Routine [facility] methocarbam oL (ROBAXIN) tablet 500 mg 2022-08 13:00: 00 Yes 500mg 500 mg, Oral, BID, First dose on Tue05/24/23 at 0800, Until Discontinu ed, Routine [facility] metoprolol tartrate (LOPRESSOR) tablet 100 mg 2022-08 13:00: 00 05-26 11:48 :21 No 100mg 100 mg, Oral, BID, First dose on Tue05/24/23 at 0800, Until Discontinu ed, Routine [facility] amiodarone (PACERONE) tablet 200 mg 2022-08 13:00: 00 05-26 20:47 :04 No 200mg 200 mg, Oral, BID, 20 doses, First dose on Tue05/24/23 at 0800, Last dose on Tue06/02/23 at 2000, Routine [facility] metoprolol (LOPRESSOR) injection 5 mg 2022-08 12:38: 47 05-26 17:08 :14 No 5mg 5 mg, Intravenou s, Q8HPRN, Starting on Tue05/24/23 at 0738, Until [place] 05/26/23 at 1208, Routine, HR above 110 [facility] levothyroxi ne (SYNTHROID) tablet 88 mcg 2022-08 11:00: 00 Yes 88ug 88 mcg, Oral, QAM-0600, First dose on Tue05/24/23 at 0600, Until Discontinu ed, Routine [facility] levothyroxi ne (SYNTHROID) tablet 88 mcg 2022-08 11:00: 00 Yes 88ug 88 mcg, Oral, QAM-0600, First dose on Tue05/24/23 at 0600, Until Discontinu ed, Routine [facility] NaCl 0.9% (NS) IV infusion 1,000 mL 2022-08 10:00: 00 05-25 08:00 :56 No 1000mL at 100 mL/hr, IV Infusion, CONTINUOUS , Starting on Tue05/24/23 at 0500, Until Tue05/25/23 at 0300, Routine [facility] heparin 25,000 Units/250 mL (Premixed Bag) in 0.45 % NS 2022-08 09:00: 00 05-27 18:58 :48 No 0U/h 0-1,600 Units/hr (0-16 mL/hr), IV Infusion, TITRATE, Parameters in Admin. Instr., Starting on Tue05/24/23 at 0400
In itiate dosing:&nb sp; & nbsp;&nbsp ; -Patient 83 kg or under: 750 Units/hr (Calculate d dose at 12 units/kg/h r) &n bsp; &nbs p; -Patient over 83 k,000 units/hr&n bsp;DO NOT Exceed the MAXIMUM 1,000 units/hr for initiation of heparin drip.&nbsp ; CAU TION - If LMWH given in ER, AVOID bolus and start next dose/drip 12 hrs after ER dosage.&nb sp; M ust program rate using programmab le infusion pump.&nbsp ; Marivel ck with the ordering provider first prior to any administra tion should the patient be on existing/a dditional anticoagul ant therapy.&n bsp; Range, Dosing and Testing&nb sp; - aPTT < 40: & nbsp;Bolus 3000 units, increase rate 100 units/hr.& nbsp;- aPTT 40-49:&nbs p; In crease rate 50 units/hr. - aPTT 50-70:&nbs p; NO CHANGE.&nb sp;- aPTT 71-85:&nbs p; De crease rate 50 units/hr.& nbsp;- aPTT 86-100:&nb sp; H old 30 minutes, decrease rate 100 units/hr.& nbsp;- aPTT 101-150:&n bsp; Hold 60 minutes, decrease rate 150 units/hr.& nbsp;- aPTT > 150: Hold 60 minutes, decrease rate 300 units/hr.& nbsp;&nbsp ;Check aPTT 6 hours after initiation , then Q6H after every change, aPTT Q12H once therapeuti c levels are reached.&n bsp; DO NOT ADJUST INITIAL BOLUS OR INITIAL INFUSION RATE.
[facility] HEPARIN SODIUM (PORCINE) 1,000 UNIT/ML BOLUS ACS ORDER SET 2022-08 09:00: 00 05-24 08:41 :00 No 60U/kg 3,630 Units (60 Units/kg ?60.5 kg), IV Push, ONCE, 1 dose, On Tue05/24/23 at 0400, KRISTOPHER [facility] NaCl 0.9% (NS) IV infusion 1,000 mL 2022-08 08:15: 00 05-24 09:49 :35 No 1000mL at 125 mL/hr, IV Infusion, CONTINUOUS , Starting on Tue05/24/23 at 0315, Until Tue05/24/23 at 0449, Routine [facility] morpHINE (4 mg/mL) injection 4 mg 2022-08 0-10 08:01: 08 05-25 08:00 :08 No 4mg 4 mg, Slow IV Push, Q4HPRN, Starting on Tue05/24/23 at 0301, Until Tue05/25/23 at 0300, Routine, Pain (scale 7-10) [facility] acetaminoph en (TYLENOL) tablet 650 mg 2022-0810 08:00: 49 Yes 650mg 650 mg, Oral, Q6HPRN, Starting on Tue05/24/23 at 0300, Until Discontinu ed, Routine, Pain (scale 1-3) [facility] acetaminoph en (TYLENOL) tablet 650 mg 2022-0810 08:00: 49 Yes 650mg 650 mg, Oral, Q6HPRN, Starting on Tue05/24/23 at 0300, Until Discontinu ed, Routine, Pain (scale 1-3) [facility] hydralAZINE (APRESOLINE ) injection 10 mg 2022-0810 05:00: 00 05-24 04:18 :00 No 10mg 10 mg, Slow IV Push, ONCE, 1 dose, On Tue05/24/23 at 0000, STAT [facility] haloperidol lactate (HALDOL) injection 2.5 mg 2022-0810 04:30: 00 05-24 04:30 :00 No 2.5mg 2.5 mg, Intravenou s, ONCE, 1 dose, On Tue05/23/23 at 2330, STAT [facility] LORazepam (ATIVAN) injection 1 mg 2022-0810 04:15: 00 05-24 04:16 :00 No 1mg 1 mg, Slow IV Push, ONCE, 1 dose, On Tue05/23/23 at 2315, STAT [facility] proMETHazin e (PHENERGAN) 12.5 mg in NaCl 0.9% (NS) 50 mL IV piggyback 2022-0810 04:00: 00 05-24 03:47 :00 No 12.5mg 12.5 mg, IV Piggyback, ONCE, 1 dose, On Tue05/23/23 at 2300, KRISTOPHER [facility] NaCl 0.9% (NS) bolus infusion 1,000 mL 2022-08 03:15: 00 05-24 05:50 :00 No 1000mL at 999 mL/hr, 1,000 mL, IV Piggyback, ONCE, 1 dose, On Tue05/23/23 at 2215, STAT [facility] warfarin 2.5 mg tablet 2022-08 03:02: 41 Yes Take by mouth. [facility] warfarin 2.5 mg tablet 2022-08 03:02: 41 Yes Take by mouth. [facility] warfarin 2.5 mg tablet 2022-08 03:02: 41 Yes Take by mouth. [facility] warfarin 2.5 mg tablet 2022-08 03:02: 41 Yes Take by mouth. [facility] enalaprilat (VASOTEC I.V.) injection 1.25 mg 2022-0810 02:30: 00 05-24 03:17 :00 No 1.25mg 1.25 mg, Slow IV Push, ONCE, 1 dose, On Tue05/23/23 at 2130, STAT [facility] ondansetron (ZOFRAN (PF)) injection 4 mg 2022-08 02:30: 00 05-24 03:13 :00 No 4mg 4 mg, Slow IV Push, ONCE, 1 dose, On Tue05/23/23 at 2130, KRISTOPHER [facility] warfarin 2.5 mg tablet 2022-08 006 16:36: 39 Yes Take by mouth. [facility] warfarin 2.5 mg tablet 2022-08 0-06 16:36: 39 Yes Take by mouth. [facility] warfarin 2.5 mg tablet 2022-08 0-06 16:36: 39 Yes Take by mouth. [facility] cefTRIAXone (ROCEPHIN) 1,000 mg in NaCl 0.9% (NS) 100 mL MINI-BAG 2022-08 0 14:00: 00 05-25 13:59 :00 No 1000mg 1,000 mg, IV Piggyback, Q24H ABX, 5 doses, First dose on Tue05/20/23 at 0900, Last dose on Tue05/24/23 at 0900, Administer over 30 Minutes, 100 mL
Reas on for Anti-Infec tive: Empiric Therapy for Suspected Infection< br>Empiric Therapy Site: Urine
D uration of therapy: 5 days [facility] sennosides- docusate sodium (SENOKOT-S) 8.6-50 mg per tablet 1 tablet 2022-08 10:45: 00 Yes 1{tbl} 1 tablet, Oral, DAILY AT 1700, First dose on Tue05/20/23 at 0545, Until Discontinu ed, Routine [facility] amiodarone 200 mg tablet 2022-08 00:00: 00 06-04 04:59 :00 No [id number] 200mg Take 1 tablet by mouth in the morning and 1 tablet in the evening. Do all this for 14 days. [facility] amiodarone 200 mg tablet 2022-08 00:00: 00 06-04 04:59 :00 No [id number] 200mg Take 1 tablet by mouth in the morning and 1 tablet in the evening. Do all this for 14 days. [facility] amiodarone 200 mg tablet 2022-08 00:00: 00 06-04 04:59 :00 No [id number] 200mg Take 1 tablet by mouth in the morning and 1 tablet in the evening. Do all this for 14 days. [facility] amiodarone 200 mg tablet 2022-08 0 00:00: 00 06-04 04:59 :00 No [id number] 200mg Take 1 tablet by mouth in the morning and 1 tablet in the evening. Do all this for 14 days. [facility] amiodarone 200 mg tablet 2022-08 0-06 00:00: 00 06-04 04:59 :00 No [id number] 200mg Take 1 tablet by mouth in the morning and 1 tablet in the evening. Do all this for 14 days. [facility] amiodarone 200 mg tablet 2022-08 0-06 00:00: 00 06-04 04:59 :00 No [id number] 200mg Take 1 tablet by mouth in the morning and 1 tablet in the evening. Do all this for 14 days. [facility] amiodarone 200 mg tablet 2022-08 0-06 00:00: 00 06-04 04:59 :00 No [id number] 200mg Take 1 tablet by mouth in the morning and 1 tablet in the evening. Do all this for 14 days. [facility] amiodarone 200 mg tablet 2022-08 0-06 00:00: 00 06-04 04:59 :00 No [id number] 200mg Take 1 tablet by mouth in the morning and 1 tablet in the evening. Do all this for 14 days. [facility] amiodarone 200 mg tablet 2022-08 0-06 00:00: 00 06-04 04:59 :00 No [id number] 200mg Take 1 tablet by mouth in the morning and 1 tablet in the evening. Do all this for 14 days. [facility] cefpodoxime 200 mg tablet 2022-08 0-06 00:00: 00 06-03 00:00 :00 No [id number] 200mg Take 1 tablet by mouth in the morning and 1 tablet in the evening. Do all this for 7 days. [facility] cefpodoxime 200 mg tablet 2022-08 0-06 00:00: 00 06-03 00:00 :00 No [id number] 200mg Take 1 tablet by mouth in the morning and 1 tablet in the evening. Do all this for 7 days. [facility] cefpodoxime 200 mg tablet 2022-08 0-06 00:00: 00 05-28 04:59 :00 No [id number] 200mg Take 1 tablet by mouth in the morning and 1 tablet in the evening. Do all this for 7 days. [facility] cefpodoxime 200 mg tablet 2022-08 0-06 00:00: 00 05-28 04:59 :00 No [id number] 200mg Take 1 tablet by mouth in the morning and 1 tablet in the evening. Do all this for 7 days. [facility] cefpodoxime 200 mg tablet 2022-08 0-06 00:00: 00 05-28 04:59 :00 No [id number] 200mg Take 1 tablet by mouth in the morning and 1 tablet in the evening. Do all this for 7 days. [facility] cefpodoxime 200 mg tablet 2022-08 0-06 00:00: 00 05-28 04:59 :00 No [id number] 200mg Take 1 tablet by mouth in the morning and 1 tablet in the evening. Do all this for 7 days. [facility] cefpodoxime 200 mg tablet 2022-08 0-06 00:00: 00 05-28 04:59 :00 No [id number] 200mg Take 1 tablet by mouth in the morning and 1 tablet in the evening. Do all this for 7 days. [facility] cefpodoxime 200 mg tablet 2022-08 0-06 00:00: 00 05-28 04:59 :00 No [id number] 200mg Take 1 tablet by mouth in the morning and 1 tablet in the evening. Do all this for 7 days. [facility] cefpodoxime 200 mg tablet 2022-08 0-06 00:00: 00 05-20 00:00 :00 No [id number] 200mg Take 1 tablet by mouth in the morning and 1 tablet in the evening. Do all this for 7 days. [facility] cefpodoxime 200 mg tablet 2022-08 0-06 00:00: 00 05-20 00:00 :00 No [id number] 200mg Take 1 tablet by mouth in the morning and 1 tablet in the evening. Do all this for 7 days. [facility] morpHINE (2 mg/mL) injection 2 mg 2022-08 0-05 14:45: 05-19 14:20 :00 No 2mg 2 mg, Slow IV Push, ONCE, 1 dose, On Tue05/19/23 at 0945, [facility] (NS) IV [facility] 1,000 mL 2022-08 14:30: 00 Yes 1000mL at 100 mL/hr, IV Infusion, CONTINUOUS , Starting on Tue05/19/23 at 0930, Until Discontinu ed, Routine [facility] NaCl 0.9% (NS) IV infusion 1,000 mL 2022-08 22:15: 00 Yes 1000mL at 75 mL/hr, IV Infusion, CONTINUOUS , Starting on Tue05/18/23 at 1715, Until Discontinu ed, Routine [facility] NaCl 0.9% (NS) IV infusion 1,000 mL 2022-08 22:15: 00 05-19 10:36 :31 No 1000mL at 75 mL/hr, IV Infusion, CONTINUOUS , Starting on Tue05/18/23 at 1715, Until Tue05/19/23 at 0536, Routine [facility] pantoprazol e (PROTONIX) EC tablet 40 mg 2022-08 20:30: 00 Yes 40mg 40 mg, Oral, DAILY, First dose on Tue05/18/23 at 1530, Until Discontinu ed, Routine [facility] polyethylen e glycol 3350 powder 17 g 2022-08 20:30: 00 Yes 17g 17 g, Oral, BID, First dose (after last modificati on) on Tue05/18/23 at 1530, Until Discontinu ed, Routine [facility] pantoprazol e (PROTONIX) EC tablet 40 mg 2022-08 20:30: 00 Yes 40mg 40 mg, Oral, DAILY, First dose on Tue05/18/23 at 1530, Until Discontinu ed, [facility]en [facility] 3350 powder 17 g 2022-08 20:30: 00 Yes 17g 17 g, Oral, BID, First dose (after last modificati on) on Tue05/18/23 at 1530, Until Discontinu ed, Routine [facility] Lidocaine (LIDOCARE) 4 % patch 1 Patch 2022-08 0 14:00: 00 Yes [id number] 1{patch } 1 Patch, Topical, Administer over 12 Hours, DAILY, First dose on Tue05/18/23 at 0900, Until Discontinu ed, Routine [facility] ezetimibe (ZETIA) tablet 10 mg 2022-08 0- 14:00: 00 Yes [id number] 10mg 10 mg, Oral, DAILY, First dose on Tue05/18/23 at 0900, Until Discontinu ed, Routine [facility] Lidocaine (LIDOCARE) 4 % patch 1 Patch 2022-08 0 14:00: 00 Yes [id number] 1{patch } 1 Patch, Topical, Administer over 12 Hours, DAILY, First dose on Tue05/18/23 at 0900, Until Discontinu ed, Routine [facility] ezetimibe (ZETIA) tablet 10 mg 2022-08 0 14:00: 00 Yes [id number] 10mg 10 mg, Oral, DAILY, First dose on Tue05/18/23 at 0900, Until Discontinu ed, Routine [facility] warfarin 2.5 mg tablet 2022-08 0 11:07: 08 Yes [facility] warfarin 2.5 mg tablet 2022-08 0- 11:07: 08 Yes Take by mouth. [facility] levothyroxi ne (SYNTHROID) tablet 88 mcg 2022-08 0- 11:00: 00 Yes [id number] 88ug 88 mcg, Oral, QAM-0600, First dose on Tue05/18/23 at 0600, Until Discontinu ed, Routine [facility] levothyroxi ne (SYNTHROID) tablet 88 mcg 2022-08 0- 11:00: 00 Yes [id number] 88ug 88 mcg, Oral, QAM-0600, First dose on Tue05/18/23 at 0600, Until Discontinu ed, Routine [facility] atorvastati n (LIPITOR) tablet 80 mg 2022-08 0- 02:00: 00 Yes [id number] 80mg 80 mg, Oral, QHS, First dose on Tue05/17/23 at 2100, Until Discontinu ed, Routine [facility] atorvastati n (LIPITOR) tablet 80 mg 2022-08 0-04 02:00: 00 Yes [id number] 80mg 80 mg, Oral, QHS, First dose on Tue05/17/23 at 2100, Until Discontinu ed, Routine [facility] metoprolol tartrate (LOPRESSOR) tablet 50 mg 2022-08 0-04 01:00: 00 Yes [id number] 50mg 50 mg, Oral, BID, First dose (after last modificati on) on Tue05/17/23 at 1999, Until Discontinu ed, Routine [facility] methocarbam oL (ROBAXIN) tablet 500 mg 2022-08 0-04 01:00: 00 Yes [id number] 500mg 500 mg, Oral, BID, First dose on Tue05/17/23 at 1999, Until Discontinu ed, Routine [facility] metoprolol tartrate (LOPRESSOR) tablet 50 mg 2022-08 0-04 01:00: 00 Yes [id number] 50mg 50 mg, Oral, BID, First dose (after last modificati on) on Tue05/17/23 at 1999, Until Discontinu ed, Routine [facility] methocarbam oL (ROBAXIN) tablet 500 mg 2022-08 0-04 01:00: 00 Yes [id number] 500mg 500 mg, Oral, BID, First dose on Tue05/17/23 at 1999, Until Discontinu ed, Routine [facility] amiodarone (PACERONE) tablet 200 mg 2022-08 0-04 01:00: 00 05-31 12:59 :00 No [id number] 200mg 200 mg, Oral, BID, 27 doses, First dose on Tue05/17/23 at 1999, Last dose on Tue05/30/23 at 1999, Routine [facility] amiodarone (PACERONE) tablet 200 mg 2022-08 0-04 01:00: 00 05-31 12:59 :00 No [id number] 200mg 200 mg, Oral, BID, 27 doses, First dose on Tue05/17/23 at 1999, Last dose on Tue05/30/23 at 1999, Routine [facility] morpHINE (4 mg/mL) injection 4 mg 2022-08 0- 00:21: 32 05-20 00:20 :32 No 4mg 4 mg, Slow IV Push, Q4HPRN, Starting on Tue05/17/23 at 192, Until Tue05/19/23 at 192, Routine, Pain (scale 7-10) [facility] morpHINE (4 mg/mL) injection 4 mg 2022-08 0 00:: 05-20 00:20 :32 No 4mg 4 mg, Slow IV Push, Q4HPRN, Starting on Tue05/17/23 at 192, Until Tue05/19/23 at 1919, Routine, Pain (scale 7-10) [facility] levothyroxi ne 88 mcg tablet 2022-08 0 00:00: 00 Yes [id number] 88ug TAKE ONE TABLET BY MOUTH EVERY MORNING [facility] levothyroxi ne 88 mcg tablet 2022-08 0 00:00: 00 Yes [id number] 88ug TAKE ONE TABLET BY MOUTH EVERY MORNING [facility] levothyroxi ne 88 mcg tablet 2022-08 0 00:00: 00 Yes [id number] 88ug TAKE ONE TABLET BY MOUTH EVERY MORNING [facility] levothyroxi ne 88 mcg tablet 2022-08 0 00:00: 00 Yes [id number] 88ug TAKE ONE TABLET BY MOUTH EVERY MORNING [facility] levothyroxi ne 88 mcg tablet 2022-08 0 00:00: 00 Yes [id number] 88ug TAKE ONE TABLET BY MOUTH EVERY MORNING [facility] levothyroxi ne 88 mcg tablet 2022-08 0 00:00: 00 Yes [id number] 88ug TAKE ONE TABLET BY MOUTH EVERY MORNING [facility] levothyroxi ne 88 mcg tablet 2022-08 0 00:00: 00 Yes [id number] 88ug TAKE ONE TABLET BY MOUTH EVERY MORNING [facility] levothyroxi ne 88 mcg tablet 2022-08 0 00:00: 00 Yes [id number] 88ug TAKE ONE TABLET BY MOUTH EVERY MORNING [facility] levothyroxi ne 88 mcg tablet 2022-08 0 00:00: 00 Yes [id number] 88ug TAKE ONE TABLET BY MOUTH EVERY MORNING [facility] levothyroxi ne 88 mcg tablet 2022-08 0 00:00: 00 Yes [id number] 88ug TAKE ONE TABLET BY MOUTH EVERY MORNING [facility] levothyroxi ne 88 mcg tablet 2022-08 0 00:00: 00 Yes [id number] 88ug TAKE ONE TABLET BY MOUTH EVERY MORNING [facility] levothyroxi ne 88 mcg tablet 2022-08 0 00:00: 00 Yes [id number] 88ug TAKE ONE TABLET BY MOUTH EVERY MORNING [facility] levothyroxi ne 88 mcg tablet 2022-08 0 00:00: 00 Yes [id number] 88ug TAKE ONE TABLET BY MOUTH EVERY MORNING [facility] levothyroxi ne 88 mcg tablet 2022-08 0 00:00: 00 Yes [id number] 88ug TAKE ONE TABLET BY MOUTH EVERY MORNING [facility] levothyroxi ne 88 mcg tablet 2022-08 0 00:00: 00 Yes [id number] 88ug TAKE ONE TABLET BY MOUTH EVERY MORNING [facility] levothyroxi ne 88 mcg tablet 2022-08 0 00:00: 00 Yes [id number] 88ug TAKE ONE TABLET BY MOUTH EVERY MORNING [facility] levothyroxi ne 88 mcg tablet 2022-08 0 00:00: 00 Yes [id number] 88ug TAKE ONE TABLET BY MOUTH EVERY MORNING [facility] levothyroxi ne 88 mcg tablet 2022-08 0 00:00: 00 Yes [id number] 88ug TAKE ONE TABLET BY MOUTH EVERY MORNING [facility] levothyroxi ne 88 mcg tablet 2022-08 0 00:00: 00 Yes [id number] 88ug TAKE ONE TABLET BY MOUTH EVERY MORNING [facility] levothyroxi ne 88 mcg tablet 2022-08 0- 00:00: 00 Yes [id number] 88ug TAKE ONE TABLET BY MOUTH EVERY MORNING [facility] levothyroxi ne 88 mcg tablet 2022-08 0- 00:00: 00 Yes [id number] 88ug TAKE ONE TABLET BY MOUTH EVERY MORNING [facility] levothyroxi ne 88 mcg tablet 2022-08 0 00:00: 00 Yes [id number] 88ug TAKE ONE TABLET BY MOUTH EVERY MORNING [facility] levothyroxi ne 88 mcg tablet 2022-08 0 00:00: 00 Yes [id number] 88ug TAKE ONE TABLET BY MOUTH EVERY MORNING [facility] levothyroxi ne 88 mcg tablet 2022-08 0 00:00: 00 Yes [id number] 88ug TAKE ONE TABLET BY MOUTH EVERY MORNING [facility] levothyroxi ne 88 mcg tablet 2022-08 0 00:00: 00 Yes [id number] 88ug TAKE ONE TABLET BY MOUTH EVERY MORNING [facility] levothyroxi ne 88 mcg tablet 2022-08 0 00:00: 00 Yes [id number] 88ug TAKE ONE TABLET BY MOUTH EVERY MORNING [facility] levothyroxi ne 88 mcg tablet 2022-08 0 00:00: 00 Yes [id number] 88ug TAKE ONE TABLET BY MOUTH EVERY MORNING [facility] levothyroxi ne 88 mcg tablet 2022-08 0 00:00: 00 Yes [id number] 88ug TAKE ONE TABLET BY MOUTH EVERY MORNING [facility] levothyroxi ne 88 mcg tablet 2022-08 0- 00:00: 00 Yes [id number] 88ug TAKE ONE TABLET BY MOUTH EVERY MORNING [facility] 2022-08 0- 00:00: 00 Yes [id number] 88ug TAKE ONE TABLET BY MOUTH EVERY MORNING [facility] levothyroxi ne 88 mcg tablet 2022-08 0- 00:00: 00 Yes [id number] 88ug TAKE ONE TABLET BY MOUTH EVERY MORNING [facility] levothyroxi ne 88 mcg tablet 2022-08 0 00:00: 00 Yes [id number] 88ug TAKE ONE TABLET BY MOUTH EVERY MORNING [facility] levothyroxi ne 88 mcg tablet 2022-08 0 00:00: 00 Yes [id number] 88ug TAKE ONE TABLET BY MOUTH EVERY MORNING [facility] levothyroxi ne 88 mcg tablet 2022-08 0 00:00: 00 Yes [id number] 88ug TAKE ONE TABLET BY MOUTH EVERY MORNING [facility] levothyroxi ne 88 mcg tablet 2022-08 0 00:00: 00 Yes [id number] 88ug TAKE ONE TABLET BY MOUTH EVERY MORNING [facility] levothyroxi ne 88 mcg tablet 2022-08 0 00:00: 00 Yes [id number] 88ug TAKE ONE TABLET BY MOUTH EVERY MORNING [facility] levothyroxi ne 88 mcg tablet 2022-08 0 00:00: 00 Yes [id number] 88ug TAKE ONE TABLET BY MOUTH EVERY MORNING [facility] levothyroxi ne 88 mcg tablet 2022-08 0 00:00: 00 Yes [id number] 88ug TAKE ONE TABLET BY MOUTH EVERY MORNING [facility] levothyroxi ne 88 mcg tablet 2022-08 0 00:00: 00 Yes [id number] 88ug TAKE ONE TABLET BY MOUTH EVERY MORNING [facility] levothyroxi ne 88 mcg tablet 2022-08 0 00:00: 00 Yes [id number] 88ug TAKE ONE TABLET BY MOUTH EVERY MORNING [facility] levothyroxi ne 88 mcg tablet 2022-08 0 00:00: 00 Yes [id number] 88ug TAKE ONE TABLET BY MOUTH EVERY MORNING [facility] levothyroxi ne 88 mcg tablet 2022-08 0 00:00: 00 Yes [id number] 88ug TAKE ONE TABLET BY MOUTH EVERY MORNING [facility] levothyroxi ne 88 mcg tablet 2022-08 0 00:00: 00 Yes [id number] 88ug TAKE ONE TABLET BY MOUTH EVERY MORNING [facility] levothyroxi ne 88 mcg tablet 2022-08 0 00:00: 00 Yes [id number] 88ug TAKE ONE TABLET BY MOUTH EVERY MORNING [facility] levothyroxi ne 88 mcg tablet 2022-08 0 00:00: 00 Yes [id number] 88ug TAKE ONE TABLET BY MOUTH EVERY MORNING [facility] levothyroxi ne 88 mcg tablet 2022-08 0 00:00: 00 Yes [id number] 88ug TAKE ONE TABLET BY MOUTH EVERY MORNING [facility] levothyroxi ne 88 mcg tablet 2022-08 0 00:00: 00 Yes [id number] 88ug TAKE ONE TABLET BY MOUTH EVERY MORNING [facility] levothyroxi ne 88 mcg tablet 2022-08 0 00:00: 00 Yes [id number] 88ug TAKE ONE TABLET BY MOUTH EVERY MORNING [facility] levothyroxi ne 88 mcg tablet 2022-08 0 00:00: 00 Yes [id number] 88ug TAKE ONE TABLET BY MOUTH EVERY MORNING [facility] levothyroxi ne 88 mcg tablet 2022-08 0 00:00: 00 Yes [id number] 88ug TAKE ONE TABLET BY MOUTH EVERY MORNING [facility] levothyroxi ne 88 mcg tablet 2022-08 0 00:00: 00 Yes [id number] 88ug TAKE ONE TABLET BY MOUTH EVERY MORNING [facility] levothyroxi ne 88 mcg tablet 2022-08 0 00:00: 00 Yes [id number] 88ug TAKE ONE TABLET BY MOUTH EVERY MORNING [facility] levothyroxi ne 88 mcg tablet 2022-08 0 00:00: 00 Yes [id number] 88ug TAKE ONE TABLET BY MOUTH EVERY MORNING [facility] levothyroxi ne 88 mcg tablet 2022-08 0 00:00: 00 Yes [id number] 88ug TAKE ONE TABLET BY MOUTH EVERY MORNING [facility] levothyroxi ne 88 mcg tablet 2022-08 0 00:00: 00 Yes [id number] 88ug TAKE ONE TABLET BY MOUTH EVERY MORNING [facility] levothyroxi ne 88 mcg tablet 2022-08 0 00:00: 00 Yes [id number] 88ug TAKE ONE TABLET BY MOUTH EVERY MORNING [facility] levothyroxi ne 88 mcg tablet 2022-08 0-04 00:00: 00 Yes [id number] 88ug TAKE ONE TABLET BY MOUTH EVERY MORNING [facility] amiodarone 200 mg tablet 2022-08 0-04 00:00: 00 06-02 04:59 :00 No [id number] 200mg Take 1 tablet by mouth in the morning and 1 tablet in the evening. Do all this for 14 days. [facility] amiodarone 200 mg tablet 2022-08 0 00:00: 00 06-02 04:59 :00 No [id number] 200mg Take 1 tablet by mouth in the morning and 1 tablet in the evening. Do all this for 14 days. [facility] amiodarone 200 mg tablet 2022-08 0- 00:00: 00 05-20 00:00 :00 No [id number] 200mg Take 1 tablet by mouth in the morning and 1 tablet in the evening. Do all this for 14 days. [facility] amiodarone 200 mg tablet 2022-08 0- 00:00: 00 05-20 00:00 :00 No [id number] 200mg Take 1 tablet by mouth in the morning and 1 tablet in the evening. Do all this for 14 days. [facility] warfarin (COUMADIN) tablet 2.5 mg 2022-08 003 22:00: 00 Yes [id number] 2.5mg 2.5 mg, Oral, DAILY AT 1700, First dose on Tue05/17/23 at 1700, Until Discontinu ed, Routine
INR Goal Range: 2-3
IND ICATION (More than one indication for warfarin can be selected): Atrial fibrillati on/flutter [facility] warfarin (COUMADIN) tablet 2.5 mg 2022-08 0-03 22:00: 00 05-19 18:00 :09 No [id number] 2.5mg 2.5 mg, Oral, DAILY AT 1700, First dose on Tue05/17/23 at 1700, Until Discontinu ed, Routine
INR Goal Range: 2-3
IND ICATION (More than one indication for warfarin can be selected): Atrial fibrillati on/flutter [facility] ondansetron (ZOFRAN (PF)) injection 4 mg 2022-08 21:00: 00 05-17 20:11 :00 No [id number] 4mg 4 mg, Slow IV Push, ONCE, 1 dose, On Tue05/17/23 at 1600, Routine [facility] ondansetron (ZOFRAN (PF)) injection 4 mg 2022-08 21:00: 00 05-17 20:11 :00 No [id number] 4mg 4 mg, Slow IV Push, ONCE, 1 dose, On Tue05/17/23 at 1600, Routine [facility] acetaminoph en-codeine (TYLENOL #3) 300-30 mg tablet 1 tablet 2022-08 20:06: 58 Yes [id number] 1{tbl} 1 tablet, Oral, Q4HPRN, Starting on Tue05/17/23 at 1506, Until Discontinu ed, Routine, Pain (scale 4-6) [facility] acetaminoph en-codeine (TYLENOL #3) 300-30 mg tablet 1 tablet 2022-08 20:06: 58 Yes [id number] 1{tbl} 1 tablet, Oral, Q4HPRN, Starting on Tue05/17/23 at 1506, Until Discontinu ed, Routine, Pain (scale 4-6) [facility] iopamidol (ISOVUE 300-500 mL) injection 2022-08 19:36: 32 05-17 20:00 :44 No ONCE INTRA PROCEDURE, Starting on Tue05/17/23 at 1436, Until Tue05/17/23 at 1500, Routine, CV Intraproce dure [facility] metoprolol tartrate 50 mg tablet 05-06 00:00: 00 Yes [id number] 100mg Take 2 tablets by mouth in the morning and 2 tablets in the evening. [facility] metoprolol tartrate 50 mg tablet 3-0 - 00:00: 00 Yes [id number] 100mg Take 2 tablets by mouth in the morning and 2 tablets in the evening. [facility] metoprolol tartrate 50 mg tablet 3-0 - 00:00: 00 Yes [id number] 9109 100mg Take 2 tablets by mouth in the morning and 2 tablets in the evening. [facility] metoprolol tartrate 50 mg tablet 3-0 - 00:00: 00 Yes [id number] 100mg Take 2 tablets by mouth in the morning and 2 tablets in the evening. [facility] metoprolol tartrate 50 mg tablet 3-0 - 00:00: 00 Yes [id number] 100mg Take 2 tablets by mouth in the morning and 2 tablets in the evening. [facility] metoprolol tartrate 50 mg tablet 3-0 05-06 00:00: 00 Yes [id number] 9109 100mg Take 2 tablets by mouth in the morning and 2 tablets in the evening. [facility] metoprolol tartrate 50 mg tablet 3-0 - 00:00: 00 Yes [id number] 100mg Take 2 tablets by mouth in the morning and 2 tablets in the evening. [facility] metoprolol tartrate 50 mg tablet 3-0 - 00:00: 00 Yes [id number] 9109 100mg Take 2 tablets by mouth in the morning and 2 tablets in the evening. [facility] metoprolol tartrate 50 mg tablet 3-0 -22 00:00: 00 Yes [id number] 9109 100mg Take 2 tablets by mouth in the morning and 2 tablets in the evening. [facility] metoprolol tartrate 50 mg tablet 3-0 -22 00:00: 00 Yes [id number] 9109 100mg Take 2 tablets by mouth in the morning and 2 tablets in the evening. [facility] metoprolol tartrate 50 mg tablet 2023-0 -22 00:00: 00 Yes [id number] [id number] 100mg Take 2 tablets by mouth in the morning and 2 tablets in the evening. [facility] metoprolol tartrate 50 mg tablet 2023-0 9-22 00:00: 00 Yes [id number] 9109 100mg Take 2 tablets by mouth in the morning and 2 tablets in the evening. [facility] metoprolol tartrate 50 mg tablet 2023-0 9-22 00:00: 00 Yes [id number] 9109 100mg Take 2 tablets by mouth in the morning and 2 tablets in the evening. [facility] metoprolol tartrate 50 mg tablet 3-0 9-22 00:00: 00 Yes [id number] 9109 100mg Take 2 tablets by mouth in the morning and 2 tablets in the evening. [facility] metoprolol tartrate 50 mg tablet 3-0 -22 00:00: 00 Yes [id number] [id number] 100mg Take 2 tablets by mouth in the morning and 2 tablets in the evening. [facility] metoprolol tartrate 50 mg tablet 3-0 - 00:00: 00 Yes [id number] 9109 100mg Take 2 tablets by mouth in the morning and 2 tablets in the evening. [facility] metoprolol tartrate 50 mg tablet 3-0 -22 00:00: 00 Yes [id number] 9109 100mg Take 2 tablets by mouth in the morning and 2 tablets in the evening. [facility] metoprolol tartrate 50 mg tablet 3-0 9-22 00:00: 00 20 00:00 :00 No [id number] 9109 100mg Take 2 tablets by mouth in the morning and 2 tablets in the evening. [facility] metoprolol tartrate 50 mg tablet 3-0 9-22 00:00: 00 20 00:00 :00 No [id number] 9109 100mg Take 2 tablets by mouth in the morning and 2 tablets in the evening. [facility] metoprolol tartrate 50 mg tablet 2023-0 9-22 00:00: 00 20 00:00 :00 No [id number] 9109 100mg Take 2 tablets by mouth in the morning and 2 tablets in the evening. [facility] methylPREDN ISolone acetate (DEPO-MEDRO L) injection 80 mg 05-03 16:30: 00 05-03 16:30 :00 No [id number] 80mg Calli ashraf [facility] methocarbam oL 500 mg tablet 05-03 00:00: 00 08-02 05:59 :00 No [id number] 500mg Take 1 tablet by mouth in the morning and 1 tablet in the evening. Do all this for 90 days. [facility] methocarbam oL 500 mg tablet 05-03 00:00: 00 08-02 05:59 :00 No [id number] 500mg Take 1 tablet by mouth in the morning and 1 tablet in the evening. Do all this for 90 days. [facility] methocarbam oL 500 mg tablet 05-03 00:00: 00 08-02 05:59 :00 No [id number] 500mg Take 1 tablet by mouth in the morning and 1 tablet in the evening. Do all this for 90 days. [facility] methocarbam oL 500 mg tablet 05-03 00:00: 00 08-02 05:59 :00 No [id number] 500mg Take 1 tablet by mouth in the morning and 1 tablet in the evening. Do all this for 90 days. [facility] methocarbam oL 500 mg tablet 05-03 00:00: 00 08-02 05:59 :00 No [id number] 500mg Take 1 tablet by mouth in the morning and 1 tablet in the evening. Do all this for 90 days. [facility] methocarbam oL 500 mg tablet 05-03 00:00: 00 08-02 05:59 :00 No [id number] 500mg Take 1 tablet by mouth in the morning and 1 tablet in the evening. Do all this for 90 days. [facility] methocarbam oL 500 mg tablet 05-03 00:00: 00 08-02 05:59 :00 No [id number] 500mg Take 1 tablet by mouth in the morning and 1 tablet in the evening. Do all this for 90 days. [facility] methocarbam oL 500 mg tablet 05-03 00:00: 00 08-02 05:59 :00 No [id number] 500mg Take 1 tablet by mouth in the morning and 1 tablet in the evening. Do all this for 90 days. [facility] methocarbam oL 500 mg tablet 05-03 00:00: 00 08-02 05:59 :00 No [id number] 500mg Take 1 tablet by mouth in the morning and 1 tablet in the evening. Do all this for 90 days. [facility] methocarbam oL 500 mg tablet 05-03 00:00: 00 08-02 05:59 :00 No [id number] 500mg Take 1 tablet by mouth in the morning and 1 tablet in the evening. Do all this for 90 days. [facility] methocarbam oL 500 mg tablet 05-03 00:00: 00 08-02 05:59 :00 No [id number] 500mg Take 1 tablet by mouth in the morning and 1 tablet in the evening. Do all this for 90 days. [facility] methocarbam oL 500 mg tablet 05-03 00:00: 00 08-02 05:59 :00 No [id number] 500mg Take 1 tablet by mouth in the morning and 1 tablet in the evening. Do all this for 90 days. [facility] methocarbam oL 500 mg tablet 05-03 00:00: 00 08-02 05:59 :00 No [id number] 500mg Take 1 tablet by mouth in the morning and 1 tablet in the evening. Do all this for 90 days. [facility] methocarbam oL 500 mg tablet 05-03 00:00: 00 08-02 05:59 :00 No [id number] 500mg Take 1 tablet by mouth in the morning and 1 tablet in the evening. Do all this for 90 days. [facility] methocarbam oL 500 mg tablet 05-03 00:00: 00 08-02 05:59 :00 No [id number] 500mg Take 1 tablet by mouth in the morning and 1 tablet in the evening. Do all this for 90 days. [facility] methocarbam oL 500 mg tablet 05-03 00:00: 00 08-02 05:59 :00 No [id number] 500mg Take 1 tablet by mouth in the morning and 1 tablet in the evening. Do all this for 90 days. [facility] methocarbam oL 500 mg tablet 05-03 00:00: 00 08-02 05:59 :00 No [id number] 500mg Take 1 tablet by mouth in the morning and 1 tablet in the evening. Do all this for 90 days. [facility] methocarbam oL 500 mg tablet 05-03 00:00: 00 08-02 05:59 :00 No [id number] 500mg Take 1 tablet by mouth in the morning and 1 tablet in the evening. Do all this for 90 days. [facility] methocarbam oL 500 mg tablet 05-03 00:00: 00 08-02 05:59 :00 No [id number] 500mg Take 1 tablet by mouth in the morning and 1 tablet in the evening. Do all this for 90 days. [facility] methocarbam oL 500 mg tablet 05-03 00:00: 00 08-02 05:59 :00 No [id number] 500mg Take 1 tablet by mouth in the morning and 1 tablet in the evening. Do all this for 90 days. [facility] methocarbam oL 500 mg tablet 05-03 00:00: 00 08-02 05:59 :00 No [id number] 500mg Take 1 tablet by mouth in the morning and 1 tablet in the evening. Do all this for 90 days. [facility] methocarbam oL 500 mg tablet 05-03 00:00: 00 08-02 05:59 :00 No [id number] 500mg Take 1 tablet by mouth in the morning and 1 tablet in the evening. Do all this for 90 days. [facility] methocarbam oL 500 mg tablet 05-03 00:00: 00 08-02 05:59 :00 No [id number] 500mg Take 1 tablet by mouth in the morning and 1 tablet in the evening. Do all this for 90 days. [facility] methocarbam oL 500 mg tablet 05-03 00:00: 00 08-02 05:59 :00 No [id number] 500mg Take 1 tablet by mouth in the morning and 1 tablet in the evening. Do all this for 90 days. [facility] methocarbam oL 500 mg tablet 05-03 00:00: 00 08-02 05:59 :00 No [id number] 500mg Take 1 tablet by mouth in the morning and 1 tablet in the evening. Do all this for 90 days. [facility] methocarbam oL 500 mg tablet 05-03 00:00: 00 08-02 05:59 :00 No [id number] 500mg Take 1 tablet by mouth in the morning and 1 tablet in the evening. Do all this for 90 days. [facility] methocarbam oL 500 mg tablet 05-03 00:00: 00 08-02 05:59 :00 No [id number] 500mg Take 1 tablet by mouth in the morning and 1 tablet in the evening. Do all this for 90 days. [facility] methocarbam oL 500 mg tablet 05-03 00:00: 00 08-02 05:59 :00 No [id number] 500mg Take 1 tablet by mouth in the morning and 1 tablet in the evening. Do all this for 90 days. [facility] methocarbam oL 500 mg tablet 05-03 00:00: 00 08-02 05:59 :00 No [id number] 500mg Take 1 tablet by mouth in the morning and 1 tablet in the evening. Do all this for 90 days. [facility] methocarbam oL 500 mg tablet 05-03 00:00: 00 08-02 05:59 :00 No [id number] 500mg Take 1 tablet by mouth in the morning and 1 tablet in the evening. Do all this for 90 days. [facility] methocarbam oL 500 mg tablet 05-03 00:00: 00 08-02 05:59 :00 No [id number] 500mg Take 1 tablet by mouth in the morning and 1 tablet in the evening. Do all this for 90 days. [facility] methocarbam oL 500 mg tablet 05-03 00:00: 00 08-02 05:59 :00 No [id number] 500mg Take 1 tablet by mouth in the morning and 1 tablet in the evening. Do all this for 90 days. [facility] methocarbam oL 500 mg tablet 05-03 00:00: 00 08-02 05:59 :00 No [id number] 500mg Take 1 tablet by mouth in the morning and 1 tablet in the evening. Do all this for 90 days. [facility] methocarbam oL 500 mg tablet 05-03 00:00: 00 08-02 05:59 :00 No [id number] 500mg Take 1 tablet by mouth in the morning and 1 tablet in the evening. Do all this for 90 days. [facility] methocarbam oL 500 mg tablet 05-03 00:00: 00 08-02 05:59 :00 No [id number] 500mg Take 1 tablet by mouth in the morning and 1 tablet in the evening. Do all this for 90 days. [facility] methocarbam oL 500 mg tablet 05-03 00:00: 00 08-02 05:59 :00 No [id number] 500mg Take 1 tablet by mouth in the morning and 1 tablet in the evening. Do all this for 90 days. [facility] methocarbam oL 500 mg tablet 05-03 00:00: 00 08-02 05:59 :00 No [id number] 500mg Take 1 tablet by mouth in the morning and 1 tablet in the evening. Do all this for 90 days. [facility] methocarbam oL 500 mg tablet 05-03 00:00: 00 08-02 05:59 :00 No [id number] 500mg Take 1 tablet by mouth in the morning and 1 tablet in the evening. Do all this for 90 days. [facility] methocarbam oL 500 mg tablet 05-03 00:00: 00 08-02 05:59 :00 No [id number] 500mg Take 1 tablet by mouth in the morning and 1 tablet in the evening. Do all this for 90 days. [facility] methocarbam oL 500 mg tablet 05-03 00:00: 00 08-02 05:59 :00 No [id number] 500mg Take 1 tablet by mouth in the morning and 1 tablet in the evening. Do all this for 90 days. [facility] methocarbam oL 500 mg tablet 05-03 00:00: 00 08-02 05:59 :00 No [id number] 500mg Take 1 tablet by mouth in the morning and 1 tablet in the evening. Do all this for 90 days. [facility] methocarbam oL 500 mg tablet 05-03 00:00: 00 08-02 05:59 :00 No [id number] 500mg Take 1 tablet by mouth in the morning and 1 tablet in the evening. Do all this for 90 days. [facility] methocarbam oL 500 mg tablet 05-03 00:00: 00 08-02 05:59 :00 No [id number] 500mg Take 1 tablet by mouth in the morning and 1 tablet in the evening. Do all this for 90 days. [facility] methocarbam oL 500 mg tablet 05-03 00:00: 00 08-02 05:59 :00 No [id number] 500mg Take 1 tablet by mouth in the morning and 1 tablet in the evening. Do all this for 90 days. [facility] methocarbam oL 500 mg tablet 05-03 00:00: 00 08-02 05:59 :00 No [id number] 500mg Take 1 tablet by mouth in the morning and 1 tablet in the evening. Do all this for 90 days. [facility] methocarbam oL 500 mg tablet 05-03 00:00: 00 08-02 05:59 :00 No [id number] 500mg Take 1 tablet by mouth in the morning and 1 tablet in the evening. Do all this for 90 days. [facility] methocarbam oL 500 mg tablet 05-03 00:00: 00 08-02 05:59 :00 No [id number] 500mg Take 1 tablet by mouth in the morning and 1 tablet in the evening. Do all this for 90 days. [facility] methocarbam oL 500 mg tablet 05-03 00:00: 00 08-02 05:59 :00 No [id number] 500mg Take 1 tablet by mouth in the morning and 1 tablet in the evening. Do all this for 90 days. [facility] methocarbam oL 500 mg tablet 05-03 00:00: 00 08-02 05:59 :00 No [id number] 500mg Take 1 tablet by mouth in the morning and 1 tablet in the evening. Do all this for 90 days. [facility] methocarbam oL 500 mg tablet 05-03 00:00: 00 08-02 05:59 :00 No [id number] 500mg Take 1 tablet by mouth in the morning and 1 tablet in the evening. Do all this for 90 days. [facility] methocarbam oL 500 mg tablet 05-03 00:00: 00 08-02 05:59 :00 No [id number] 500mg Take 1 tablet by mouth in the morning and 1 tablet in the evening. Do all this for 90 days. [facility] methocarbam oL 500 mg tablet 05-03 00:00: 00 08-02 05:59 :00 No [id number] 500mg Take 1 tablet by mouth in the morning and 1 tablet in the evening. Do all this for 90 days. [facility] methocarbam oL 500 mg tablet 05-03 00:00: 00 08-02 05:59 :00 No [id number] 500mg Take 1 tablet by mouth in the morning and 1 tablet in the evening. Do all this for 90 days. [facility] methocarbam oL 500 mg tablet 05-03 00:00: 00 08-02 05:59 :00 No [id number] 500mg Take 1 tablet by mouth in the morning and 1 tablet in the evening. Do all this for 90 days. [facility] methocarbam oL 500 mg tablet 05-03 00:00: 00 08-02 05:59 :00 No [id number] 500mg Take 1 tablet by mouth in the morning and 1 tablet in the evening. Do all this for 90 days. [facility] methocarbam oL 500 mg tablet 05-03 00:00: 00 08-02 05:59 :00 No [id number] 500mg Take 1 tablet by mouth in the morning and 1 tablet in the evening. Do all this for 90 days. [facility] methocarbam oL 500 mg tablet 05-03 00:00: 00 08-02 05:59 :00 No [id number] 500mg Take 1 tablet by mouth in the morning and 1 tablet in the evening. Do all this for 90 days. [facility] methocarbam oL 500 mg tablet 05-03 00:00: 00 08-02 05:59 :00 No [id number] 500mg Take 1 tablet by mouth in the morning and 1 tablet in the evening. Do all this for 90 days. [facility] methocarbam oL 500 mg tablet 05-03 00:00: 00 08-02 05:59 :00 No [id number] 500mg Take 1 tablet by mouth in the morning and 1 tablet in the evening. Do all this for 90 days. [facility] methocarbam oL 500 mg tablet 05-03 00:00: 00 08-02 05:59 :00 No [id number] 500mg Take 1 tablet by mouth in the morning and 1 tablet in the evening. Do all this for 90 days. [facility] methocarbam oL 500 mg tablet 05-03 00:00: 00 08-02 05:59 :00 No [id number] 500mg Take 1 tablet by mouth in the morning and 1 tablet in the evening. Do all this for 90 days. [facility] methocarbam oL 500 mg tablet 05-03 00:00: 00 08-02 05:59 :00 No [id number] 500mg Take 1 tablet by mouth in the morning and 1 tablet in the evening. Do all this for 90 days. [facility] sodium hyaluronate (viscosup) (ORTHOVISC) injection 30 mg 04-22 14:30: 04-22 14:21 :00 No [id number] 30mg [facility] sodium hyaluronate (viscosup) (ORTHOVISC) injection 30 mg 04-22 14:30: 00 04-22 14:21 :00 No [id number] 30mg 30 mg, Intra-tre cular, ONCE, 1 dose, On Tue04/22/23 at 0930, Routine [facility] sodium hyaluronate (viscosup) (ORTHOVISC) injection 30 mg 04-22 14:30: 00 04-22 14:21 :00 No [id number] 9109 30mg [facility] sodium hyaluronate (viscosup) (ORTHOVISC) injection 30 mg 04-22 14:30: 00 04-22 14:21 :00 No [id number] 30mg 30 mg, Intra-tre cular, ONCE, 1 dose, On Tue04/22/23 at 0930, Routine [facility] methocarbam oL 500 mg tablet 04-19 00:00: 00 Yes [id number] 500mg Take 1 tablet by mouth in the morning and 1 tablet in the evening. [facility] acetaminoph en-codeine 300-30 mg tablet 04-19 00:00: 00 Yes 2745 1{tbl} Take 1 tablet by mouth every 4 (four) hours as needed for Pain (scale 4-6). Indication s: chronic pain [facility] methocarbam oL 500 mg tablet 04-19 00:00: 00 Yes [id number] 500mg Take 1 tablet by mouth in the morning and 1 tablet in the evening. [facility] acetaminoph en-codeine 300-30 mg tablet 04-19 00:00: 00 Yes 2745 1{tbl} Take 1 tablet by mouth every 4 (four) hours as needed for Pain (scale 4-6). Indication s: chronic pain [facility] methocarbam oL 500 mg tablet 04-19 00:00: 00 Yes [id number] 500mg Take 1 tablet by mouth in the morning and 1 tablet in the evening. [facility]-30 mg tablet 04-19 00:00: 00 Yes 2745 1{tbl} Take 1 tablet by mouth every 4 (four) hours as needed for Pain (scale 4-6). Indication s: chronic pain [facility] methocarbam oL 500 mg tablet 04-19 00:00: 00 Yes [id number] 500mg Take 1 tablet by mouth in the morning and 1 tablet in the evening. [facility] acetaminoph en-codeine 300-30 mg tablet 04-19 00:00: 00 Yes 2745 1{tbl} Take 1 tablet by mouth every 4 (four) hours as needed for Pain (scale 4-6). Indication s: chronic pain [facility] methocarbam oL 500 mg tablet 0 04-19 00:00: 00 Yes [id number] 500mg Take 1 tablet by mouth in the morning and 1 tablet in the evening. [facility] 300-30 mg tablet 2022-0 04-19 00:00: 00 Yes 2745 1{tbl} Take 1 tablet by mouth every 4 (four) hours as needed for Pain (scale 4-6). Indication s: chronic pain [facility] methocarbam oL 500 mg tablet 0 04-19 00:00: 00 Yes [id number] 500mg Take 1 tablet by mouth in the morning and 1 tablet in the evening. [facility] acetaminoph en-codeine 300-30 mg tablet 0 04-19 00:00: 00 Yes 2745 1{tbl} Take 1 tablet by mouth every 4 (four) hours as needed for Pain (scale 4-6). Indication s: chronic pain [facility] methocarbam oL 500 mg tablet 0 04-19 00:00: 00 Yes [id number] 500mg Take 1 tablet by mouth in the morning and 1 tablet in the evening. [facility] acetaminoph en-codeine 300-30 mg tablet 04-19 00:00: 00 Yes 2745 1{tbl} Take 1 tablet by mouth every 4 (four) hours as needed for Pain (scale 4-6). Indication s: chronic pain [facility] methocarbam oL 500 mg tablet 04-19 00:00: 00 Yes [id number] 500mg Take 1 tablet by mouth in the morning and 1 tablet in the evening. [facility] acetaminoph en-codeine 300-30 mg tablet 2022-0 04-19 00:00: 00 Yes 2745 1{tbl} Take 1 tablet by mouth every 4 (four) hours as needed for Pain (scale 4-6). Indication s: chronic pain [facility] methocarbam oL 500 mg tablet 2022-0 04-19 00:00: 00 Yes [id number] 500mg Take 1 tablet by mouth in the morning and 1 tablet in the evening. [facility] acetaminoph en-codeine 300-30 mg tablet 2022-0 04-19 00:00: 00 Yes 2745 1{tbl} Take 1 tablet by mouth every 4 (four) hours as needed for Pain (scale 4-6). Indication s: chronic pain [facility] methocarbam oL 500 mg tablet 2022-0 04-19 00:00: 00 Yes [id number] 500mg Take 1 tablet by mouth in the morning and 1 tablet in the evening. [facility] acetaminoph en-codeine 300-30 mg tablet 2022-0 04-19 00:00: 00 Yes 2745 1{tbl} Take 1 tablet by mouth every 4 (four) hours as needed for Pain (scale 4-6). Indication s: chronic pain [facility] acetaminoph en-codeine 300-30 mg tablet 2022-0 04-19 00:00: 00 Yes 2745 1{tbl} Take 1 tablet by mouth every 4 (four) hours as needed for Pain (scale 4-6). Indication s: chronic pain [facility] acetaminoph en-codeine 300-30 mg tablet 2022-0 04-19 00:00: 00 Yes 2745 1{tbl} Take 1 tablet by mouth every 4 (four) hours as needed for Pain (scale 4-6). [facility]: [facility]30 mg tablet 2022-0 04-19 00:00: 00 Yes 2745 1{tbl} Take 1 tablet by mouth every 4 (four) hours as needed for Pain (scale 4-6). Indication s: chronic pain [facility] acetaminoph en-codeine 300-30 mg tablet 2022-04-19 00:00: 00 Yes 2745 1{tbl} Take 1 tablet by mouth every 4 (four) hours as needed for Pain (scale 4-6). Indication s: chronic pain [facility] acetaminoph en-codeine 300-30 mg tablet 04-19 00:00: 00 Yes 2745 1{tbl} Take 1 tablet by mouth every 4 (four) hours as needed for Pain (scale 4-6). Indication s: chronic pain [facility] acetaminoph en-codeine 300-30 mg tablet 2022-0 04-19 00:00: 00 Yes 2745 1{tbl} Take 1 tablet by mouth every 4 (four) hours as needed for Pain (scale 4-6). Indication s: chronic pain [facility] acetaminoph en-codeine 300-30 mg tablet 2022-0 04-19 00:00: 00 Yes 2745 1{tbl} Take 1 tablet by mouth every 4 (four) hours as needed for Pain (scale 4-6). Indication s: chronic pain [facility] acetaminoph en-codeine 300-30 mg tablet 04-19 00:00: 00 Yes 2745 1{tbl} Take 1 tablet by mouth every 4 (four) hours as needed for Pain (scale 4-6). Indication s: chronic pain [facility] acetaminoph en-codeine 300-30 mg tablet 04-19 00:00: 00 Yes 2745 1{tbl} Take 1 tablet by mouth every 4 (four) hours as needed for Pain (scale 4-6). Indication s: chronic pain [facility] acetaminoph en-codeine 300-30 mg tablet 04-19 00:00: 00 Yes 2745 1{tbl} Take 1 tablet by mouth every 4 (four) hours as needed for Pain (scale 4-6). Indication s: chronic pain [facility] acetaminoph en-codeine 300-30 mg tablet 04-19 00:00: 00 Yes 2745 1{tbl} Take 1 tablet by mouth every 4 (four) hours as needed for Pain (scale 4-6). Indication s: chronic pain [facility] acetaminoph en-codeine 300-30 mg tablet 04-19 00:00: 00 Yes 2745 1{tbl} Take 1 tablet by mouth every 4 (four) hours as needed for Pain (scale 4-6). Indication s: chronic pain [facility] acetaminoph en-codeine 300-30 mg tablet 04-19 00:00: 00 Yes 2745 1{tbl} Take 1 tablet by mouth every 4 (four) hours as needed for Pain (scale 4-6). Indication s: chronic pain [facility] acetaminoph en-codeine 300-30 mg tablet 04-19 00:00: 00 Yes 2745 1{tbl} Take 1 tablet by mouth every 4 (four) hours as needed for Pain (scale 4-6). Indication s: chronic pain [facility] acetaminoph en-codeine 300-30 mg tablet 9-05 00:00: 00 Yes 2745 1{tbl} Take 1 tablet by mouth every 4 (four) hours as needed for Pain (scale 4-6). Indication s: chronic pain [facility] acetaminoph en-codeine 300-30 mg tablet 04-19 00:00: 00 Yes 2745 1{tbl} Take 1 tablet by mouth every 4 (four) hours as needed for Pain (scale 4-6). Indication s: chronic pain [facility] acetaminoph en-codeine 300-30 mg tablet 04-19 00:00: 00 Yes 2745 1{tbl} Take 1 tablet by mouth every 4 (four) hours as needed for Pain (scale 4-6). Indication s: chronic pain [facility] acetaminoph en-codeine 300-30 mg tablet 04-19 00:00: 00 Yes 2745 1{tbl} Take 1 tablet by mouth every 4 (four) hours as needed for Pain (scale 4-6). Indication s: chronic pain [facility] acetaminoph en-codeine 300-30 mg tablet 04-19 00:00: 00 Yes 2745 1{tbl} Take 1 tablet by mouth every 4 (four) hours as needed for Pain (scale 4-6). Indication s: chronic pain [facility] acetaminoph en-codeine 300-30 mg tablet 04-19 00:00: 00 Yes 2745 1{tbl} Take 1 tablet by mouth every 4 (four) hours as needed for Pain (scale 4-6). Indication s: chronic pain [facility] acetaminoph en-codeine 300-30 mg tablet 04-19 00:00: 00 Yes 2745 1{tbl} Take 1 tablet by mouth every 4 (four) hours as needed for Pain (scale 4-6). Indication s: chronic pain [facility] acetaminoph en-codeine 300-30 mg tablet 04-19 00:00: 00 Yes 2745 1{tbl} Take 1 tablet by mouth every 4 (four) hours as needed for Pain (scale 4-6). Indication s: chronic pain [facility] acetaminoph en-codeine 300-30 mg tablet 0 04-19 00:00: 00 Yes 2745 1{tbl} Take 1 tablet by mouth every 4 (four) hours as needed for Pain (scale 4-6). Indication s: chronic pain [facility] acetaminoph en-codeine 300-30 mg tablet 2022-0 04-19 00:00: 00 Yes 2745 1{tbl} Take 1 tablet by mouth every 4 (four) hours as needed for Pain (scale 4-6). Indication s: chronic pain [facility] acetaminoph en-codeine 300-30 mg tablet 0 04-19 00:00: 00 Yes 2745 1{tbl} Take 1 tablet by mouth every 4 (four) hours as needed for Pain (scale 4-6). Indication s: chronic pain [facility] acetaminoph en-codeine 300-30 mg tablet 04-19 00:00: 00 Yes 2745 1{tbl} Take 1 tablet by mouth every 4 (four) hours as needed for Pain (scale 4-6). Indication s: chronic pain [facility] acetaminoph en-codeine 300-30 mg tablet 04-19 00:00: 00 Yes 2745 1{tbl} Take 1 tablet by mouth every 4 (four) hours as needed for Pain (scale 4-6). Indication s: chronic pain [facility] acetaminoph en-codeine 300-30 mg tablet 04-19 00:00: 00 Yes 2745 1{tbl} Take 1 tablet by mouth every 4 (four) hours as needed for Pain (scale 4-6). Indication s: chronic pain [facility] acetaminoph en-codeine 300-30 mg tablet 04-19 00:00: 00 Yes 2745 1{tbl} Take 1 tablet by mouth every 4 (four) hours as needed for Pain (scale 4-6). Indication s: chronic pain [facility] acetaminoph en-codeine 300-30 mg tablet 04-19 00:00: 00 Yes 2745 1{tbl} Take 1 tablet by mouth every 4 (four) hours as needed for Pain (scale 4-6). Indication s: chronic pain [facility] acetaminoph en-codeine 300-30 mg tablet 2022-0 04-19 00:00: 00 Yes 2745 1{tbl} Take 1 tablet by mouth every 4 (four) hours as needed for Pain (scale 4-6). Indication s: chronic pain [facility] acetaminoph en-codeine 300-30 mg tablet 2022-04-19 00:00: 00 Yes 2745 1{tbl} Take 1 tablet by mouth every 4 (four) hours as needed for Pain (scale 4-6). Indication s: chronic pain [facility] acetaminoph en-codeine 300-30 mg tablet 2022-04-19 00:00: 00 Yes 2745 1{tbl} Take 1 tablet by mouth every 4 (four) hours as needed for Pain (scale 4-6). Indication s: chronic pain [facility] acetaminoph en-codeine 300-30 mg tablet 04-19 00:00: 00 Yes 2745 1{tbl} Take 1 tablet by mouth every 4 (four) hours as needed for Pain (scale 4-6). Indication s: chronic pain [facility] acetaminoph en-codeine 300-30 mg tablet 04-19 00:00: 00 Yes 2745 1{tbl} Take 1 tablet by mouth every 4 (four) hours as needed for Pain (scale 4-6). Indication s: chronic pain [facility] acetaminoph en-codeine 300-30 mg tablet 2022-04-19 00:00: 00 Yes 2745 1{tbl} Take 1 tablet by mouth every 4 (four) hours as needed for Pain (scale 4-6). Indication s: chronic pain [facility] acetaminoph en-codeine 300-30 mg tablet 2022-04-19 00:00: 00 Yes 2745 1{tbl} Take 1 tablet by mouth every 4 (four) hours as needed for Pain (scale 4-6). Indication s: chronic pain [facility] acetaminoph en-codeine 300-30 mg tablet 04-19 00:00: 00 Yes 2745 1{tbl} Take 1 tablet by mouth every 4 (four) hours as needed for Pain (scale 4-6). Indication s: chronic pain [facility] acetaminoph en-codeine 300-30 mg tablet 04-19 00:00: 00 Yes 2745 1{tbl} Take 1 tablet by mouth every 4 (four) hours as needed for Pain (scale 4-6). Indication s: chronic pain [facility] acetaminoph en-codeine 300-30 mg tablet 04-19 00:00: 00 Yes 2745 1{tbl} Take 1 tablet by mouth every 4 (four) hours as needed for Pain (scale 4-6). Indication s: chronic pain [facility] acetaminoph en-codeine 300-30 mg tablet 04-19 00:00: 00 Yes 2745 1{tbl} Take 1 tablet by mouth every 4 (four) hours as needed for Pain (scale 4-6). Indication s: chronic pain [facility] acetaminoph en-codeine 300-30 mg tablet 04-19 00:00: 00 Yes 2745 1{tbl} Take 1 tablet by mouth every 4 (four) hours as needed for Pain (scale 4-6). Indication s: chronic pain [facility] acetaminoph en-codeine 300-30 mg tablet 04-19 00:00: 00 Yes 2745 1{tbl} Take 1 tablet by mouth every 4 (four) hours as needed for Pain (scale 4-6). Indication s: chronic pain [facility] [place] acetaminoph en-codeine 300-30 mg tablet 04-19 00:00: 00 Yes 2745 1{tbl} Take 1 tablet by mouth every 4 (four) hours as needed for Pain (scale 4-6). Indication s: chronic pain [facility] acetaminoph en-codeine 300-30 mg tablet 04-19 00:00: 00 Yes 2745 1{tbl} Take 1 tablet by mouth every 4 (four) hours as needed for Pain (scale 4-6). Indication s: chronic pain [facility] acetaminoph en-codeine 300-30 mg tablet 04-19 00:00: 00 Yes 2745 1{tbl} Take 1 tablet by mouth every 4 (four) hours as needed for Pain (scale 4-6). Indication s: chronic pain [facility] acetaminoph en-codeine 300-30 mg tablet 04-19 00:00: 00 Yes 2745 1{tbl} Take 1 tablet by mouth every 4 (four) hours as needed for Pain (scale 4-6). Indication s: chronic pain [facility] acetaminoph en-codeine 300-30 mg tablet 04-19 00:00: 00 Yes 2745 1{tbl} Take 1 tablet by mouth every 4 (four) hours as needed for Pain (scale 4-6). Indication s: chronic pain [facility] acetaminoph en-codeine 300-30 mg tablet 04-19 00:00: 00 Yes 2745 1{tbl} Take 1 tablet by mouth every 4 (four) hours as needed for Pain (scale 4-6). Indication s: chronic pain [facility] acetaminoph en-codeine 300-30 mg tablet 04-19 00:00: 00 Yes 2745 1{tbl} Take 1 tablet by mouth every 4 (four) hours as needed for Pain (scale 4-6). Indication s: chronic pain [facility] acetaminoph en-codeine 300-30 mg tablet 04-19 00:00: 00 Yes 2745 1{tbl} Take 1 tablet by mouth every 4 (four) hours as needed for Pain (scale 4-6). Indication s: chronic pain [facility] acetaminoph en-codeine 300-30 mg tablet 04-19 00:00: 00 Yes 2745 1{tbl} Take 1 tablet by mouth every 4 (four) hours as needed for Pain (scale 4-6). Indication s: chronic pain [facility] acetaminoph en-codeine 300-30 mg tablet 2022-0 04-19 00:00: 00 Yes 2745 1{tbl} Take 1 tablet by mouth every 4 (four) hours as needed for Pain (scale 4-6). Indication s: chronic pain [facility] acetaminoph en-codeine 300-30 mg tablet 0 04-19 00:00: 00 Yes 2745 1{tbl} Take 1 tablet by mouth every 4 (four) hours as needed for Pain (scale 4-6). [facility]: [facility] tablet 2022-0 04-19 00:00: 00 Yes 2745 1{tbl} Take 1 tablet by mouth every 4 (four) hours as needed for Pain (scale 4-6). Indication s: chronic pain [facility] acetaminoph en-codeine 300-30 mg tablet 04-19 00:00: 00 Yes 2745 1{tbl} Take 1 tablet by mouth every 4 (four) hours as needed for Pain (scale 4-6). Indication s: chronic pain [facility] acetaminoph en-codeine 300-30 mg tablet 04-19 00:00: 00 Yes 2745 1{tbl} Take 1 tablet by mouth every 4 (four) hours as needed for Pain (scale 4-6). Indication s: chronic pain [facility] acetaminoph en-codeine 300-30 mg tablet 04-19 00:00: 00 Yes 2745 1{tbl} Take 1 tablet by mouth every 4 (four) hours as needed for Pain (scale 4-6). Indication s: chronic pain [facility] acetaminoph en-codeine 300-30 mg tablet 2022-0 04-19 00:00: 00 Yes 2745 1{tbl} Take 1 tablet by mouth every 4 (four) hours as needed for Pain (scale 4-6). Indication s: chronic pain [facility] acetaminoph en-codeine 300-30 mg tablet 2022-0 04-19 00:00: 00 Yes 2745 1{tbl} Take 1 tablet by mouth every 4 (four) hours as needed for Pain (scale 4-6). Indication s: chronic pain [facility] acetaminoph en-codeine 300-30 mg tablet 04-19 00:00: 00 Yes 2745 1{tbl} Take 1 tablet by mouth every 4 (four) hours as needed for Pain (scale 4-6). Indication s: chronic pain [facility] acetaminoph en-codeine 300-30 mg tablet 04-19 00:00: 00 Yes 2745 1{tbl} Take 1 tablet by mouth every 4 (four) hours as needed for Pain (scale 4-6). Indication s: chronic pain [facility] acetaminoph en-codeine 300-30 mg tablet 04-19 00:00: 00 Yes 2745 1{tbl} Take 1 tablet by mouth every 4 (four) hours as needed for Pain (scale 4-6). Indication s: chronic pain [facility] acetaminoph en-codeine 300-30 mg tablet 04-19 00:00: 00 Yes 2745 1{tbl} Take 1 tablet by mouth every 4 (four) hours as needed for Pain (scale 4-6). Indication s: chronic pain [facility] acetaminoph en-codeine 300-30 mg tablet 04-19 00:00: 00 Yes 2745 1{tbl} Take 1 tablet by mouth every 4 (four) hours as needed for Pain (scale 4-6). Indication s: chronic pain [facility] acetaminoph en-codeine 300-30 mg tablet 04-19 00:00: 00 Yes 2745 1{tbl} Take 1 tablet by mouth every 4 (four) hours as needed for Pain (scale 4-6). Indication s: chronic pain [facility] acetaminoph en-codeine 300-30 mg tablet 04-19 00:00: 00 Yes 2745 1{tbl} Take 1 tablet by mouth every 4 (four) hours as needed for Pain (scale 4-6). Indication s: chronic pain [facility] acetaminoph en-codeine 300-30 mg tablet 05 00:00: 00 Yes 2745 1{tbl} Take 1 tablet by mouth every 4 (four) hours as needed for Pain (scale 4-6). Indication s: chronic pain [facility] acetaminoph en-codeine 300-30 mg tablet 2023-0 9 00:00: 00 Yes 2745 1{tbl} Take 1 tablet by mouth every 4 (four) hours as needed for Pain (scale 4-6). Indication s: chronic pain [facility] acetaminoph en-codeine 300-30 mg tablet 2023-0 04-19 00:00: 00 Yes 2745 1{tbl} Take 1 tablet by mouth every 4 (four) hours as needed for Pain (scale 4-6). Indication s: chronic pain [facility] acetaminoph en-codeine 300-30 mg tablet 3-0 04-19 00:00: 00 Yes 2745 1{tbl} Take 1 tablet by mouth every 4 (four) hours as needed for Pain (scale 4-6). Indication s: chronic pain [facility] acetaminoph en-codeine 300-30 mg tablet 3-0 04-19 00:00: 00 Yes 2745 1{tbl} Take 1 tablet by mouth every 4 (four) hours as needed for Pain (scale 4-6). Indication s: chronic pain [facility] acetaminoph en-codeine 300-30 mg tablet 3-0 04-19 00:00: 00 08-22 00:00 :00 No 2745 1{tbl} Take 1 tablet by mouth every 4 (four) hours as needed for Pain (scale 4-6). Indication s: chronic pain [facility] acetaminoph en-codeine 300-30 mg tablet 3-0 04-19 00:00: 00 08-22 00:00 :00 No 2745 1{tbl} Take 1 tablet by mouth every 4 (four) hours as needed for Pain (scale 4-6). Indication s: chronic pain [facility] acetaminoph en-codeine 300-30 mg tablet 3-0 9 00:00: 00 08-22 00:00 :00 No 2745 1{tbl} Take 1 tablet by mouth every 4 (four) hours as needed for Pain (scale 4-6). Indication s: chronic pain [facility] methocarbam oL 500 mg tablet 04-19 00:00: 00 05-03 00:00 :00 No [id number] 500mg Take 1 tablet by mouth in the morning and 1 tablet in the evening. [facility] methocarbam oL 500 mg tablet 04-19 00:00: 00 05-03 00:00 :00 No [id number] 500mg Take 1 tablet by mouth in the morning and 1 tablet in the evening. [facility] methocarbam oL 500 mg tablet 04-19 00:00: 00 05-03 00:00 :00 No [id number] 500mg Take 1 tablet by mouth in the morning and 1 tablet in the evening. [facility] methocarbam oL 500 mg tablet 04-19 00:00: 00 05-03 00:00 :00 No [id number] 500mg Take 1 tablet by mouth in the morning and 1 tablet in the evening. [facility] sodium hyaluronate (viscosup) (ORTHOVISC) injection 30 mg 04-15 16:15: 00 04-16 04:14 :00 No [id number] 30mg [facility] sodium hyaluronate (viscosup) (ORTHOVISC) injection 30 mg 04-15 16:15: 00 04-16 04:14 :00 No [id number] [facility]viscosup[facility] (ORTHOVISC) injection 30 mg 04-15 16:15: 00 04-16 04:14 :00 No [id number] [id number] 30mg [facility] sodium hyaluronate (viscosup) (ORTHOVISC) injection 30 mg 04-15 16:15: 00 04-16 04:14 :00 No [id number] [id number] 30mg [facility] sodium hyaluronate (viscosup) (ORTHOVISC) injection 30 mg 04-15 16:15: 00 04-16 04:14 :00 No [id number] 30mg [facility] sodium hyaluronate (viscosup) (ORTHOVISC) injection 30 mg 04-15 16:15: 00 04-16 04:14 :00 No [id number] [id number] 30mg [facility] sodium hyaluronate (viscosup) (ORTHOVISC) injection 30 mg 04-15 16:15: 00 04-16 04:14 :00 No [id number] [id number] 30mg [facility] sodium hyaluronate (viscosup) (ORTHOVISC) injection 30 mg 04-15 05:00: 00 04-15 16:59 :00 No [id number] [id number] 30mg [facility] sodium hyaluronate (viscosup) (ORTHOVISC) injection 30 mg 04-15 05:00: 00 04-15 16:59 :00 No [id number] [id number] 30mg [facility] ergocalcife rol, vitamin d2, 1,250 mcg (50,000 unit) capsule 04-15 00:00: 00 07-03 05:59 :00 No [id number] Take 1 capsule by mouth weekly for 12 doses. [facility] ergocalcife rol, vitamin d2, 1,250 mcg (50,000 unit) capsule 04-15 00:00: 00 07-03 05:59 :00 No [id number] Take 1 capsule by mouth weekly for 12 doses. [facility] ergocalcife rol, vitamin d2, 1,250 mcg (50,000 unit) capsule 04-15 00:00: 00 07-03 05:59 :00 No [id number] Take 1 capsule by mouth weekly for 12 doses. [facility] ergocalcife rol, vitamin d2, 1,250 mcg (50,000 unit) capsule 04-15 00:00: 00 07-03 05:59 :00 No [id number] Take 1 capsule by mouth weekly for 12 doses. [facility] ergocalcife rol, vitamin d2, 1,250 mcg (50,000 unit) capsule 04-15 00:00: 00 07-03 05:59 :00 No [id number] Take 1 capsule by mouth weekly for 12 doses. [facility] ergocalcife rol, vitamin d2, 1,250 mcg (50,000 unit) capsule 04-15 00:00: 00 07-03 05:59 :00 No [id number] Take 1 capsule by mouth weekly for 12 doses. [facility] ergocalcife rol, vitamin d2, 1,250 mcg (50,000 unit) capsule 04-15 00:00: 00 07-03 05:59 :00 No [id number] Take 1 capsule by mouth weekly for 12 doses. [facility] ergocalcife rol, vitamin d2, 1,250 mcg (50,000 unit) capsule 04-15 00:00: 00 07-03 05:59 :00 No [id number] Take 1 capsule by mouth weekly for 12 doses. [facility] ergocalcife rol, vitamin d2, 1,250 mcg (50,000 unit) capsule 04-15 00:00: 00 07-03 05:59 :00 No [id number] Take 1 capsule by mouth weekly for 12 doses. [facility] ergocalcife rol, vitamin d2, 1,250 mcg (50,000 unit) capsule 04-15 00:00: 00 07-03 05:59 :00 No [id number] Take 1 capsule by mouth weekly for 12 doses. [facility] ergocalcife rol, vitamin d2, 1,250 mcg (50,000 unit) capsule 04-15 00:00: 00 07-03 05:59 :00 No [id number] Take 1 capsule by mouth weekly for 12 doses. [facility] ergocalcife rol, vitamin d2, 1,250 mcg (50,000 unit) capsule 04-15 00:00: 00 07-03 05:59 :00 No [id number] Take 1 capsule by mouth weekly for 12 doses. [facility] ergocalcife rol, vitamin d2, 1,250 mcg (50,000 unit) capsule 04-15 00:00: 00 07-03 05:59 :00 No [id number] Take 1 capsule by mouth weekly for 12 doses. [facility] ergocalcife rol, vitamin d2, 1,250 mcg (50,000 unit) capsule 04-15 00:00: 00 07-03 05:59 :00 No [id number] Take 1 capsule by mouth weekly for 12 doses. [facility] ergocalcife rol, vitamin d2, 1,250 mcg (50,000 unit) capsule 04-15 00:00: 00 07-03 05:59 :00 No [id number] Take 1 capsule by mouth weekly for 12 doses. [facility] ergocalcife rol, vitamin d2, 1,250 mcg (50,000 unit) capsule 04-15 00:00: 00 07-03 05:59 :00 No [id number] Take 1 capsule by mouth weekly for 12 doses. [facility] ergocalcife rol, vitamin d2, 1,250 mcg (50,000 unit) capsule 04-15 00:00: 00 07-03 05:59 :00 No [id number] Take 1 capsule by mouth weekly for 12 doses. [facility] ergocalcife rol, vitamin d2, 1,250 mcg (50,000 unit) capsule 04-15 00:00: 00 07-03 05:59 :00 No [id number] Take 1 capsule by mouth weekly for 12 doses. [facility] ergocalcife rol, vitamin d2, 1,250 mcg (50,000 unit) capsule 04-15 00:00: 00 07-03 05:59 :00 No [id number] Take 1 capsule by mouth weekly for 12 doses. [facility] ergocalcife rol, vitamin d2, 1,250 mcg (50,000 unit) capsule 04-15 00:00: 00 07-03 05:59 :00 No [id number] Take 1 capsule by mouth weekly for 12 doses. [facility] ergocalcife rol, vitamin d2, 1,250 mcg (50,000 unit) capsule 04-15 00:00: 00 07-03 05:59 :00 No [id number] Take 1 capsule by mouth weekly for 12 doses. [facility] ergocalcife rol, vitamin d2, 1,250 mcg (50,000 unit) capsule 04-15 00:00: 00 07-03 05:59 :00 No [id number] Take 1 capsule by mouth weekly for 12 doses. [facility] ergocalcife rol, vitamin d2, 1,250 mcg (50,000 unit) capsule 04-15 00:00: 00 07-03 05:59 :00 No [id number] Take 1 capsule by mouth weekly for 12 doses. [facility] ergocalcife rol, vitamin d2, 1,250 mcg (50,000 unit) capsule 04-15 00:00: 00 07-03 05:59 :00 No [id number] Take 1 capsule by mouth weekly for 12 doses. [facility] ergocalcife rol, vitamin d2, 1,250 mcg (50,000 unit) capsule 04-15 00:00: 00 07-03 05:59 :00 No [id number] Take 1 capsule by mouth weekly for 12 doses. [facility] ergocalcife rol, vitamin d2, 1,250 mcg (50,000 unit) capsule 04-15 00:00: 00 07-03 05:59 :00 No [id number] Take 1 capsule by mouth weekly for 12 doses. [facility] ergocalcife rol, vitamin d2, 1,250 mcg (50,000 unit) capsule 04-15 00:00: 00 07-03 05:59 :00 No [id number] Take 1 capsule by mouth weekly for 12 doses. [facility] ergocalcife rol, vitamin d2, 1,250 mcg (50,000 unit) capsule 04-15 00:00: 00 07-03 05:59 :00 No [id number] Take 1 capsule by mouth weekly for 12 doses. [facility] ergocalcife rol, vitamin d2, 1,250 mcg (50,000 unit) capsule 04-15 00:00: 00 07-03 05:59 :00 No [id number] Take 1 capsule by mouth weekly for 12 doses. [facility] ergocalcife rol, vitamin d2, 1,250 mcg (50,000 unit) capsule 04-15 00:00: 00 07-03 05:59 :00 No [id number] Take 1 capsule by mouth weekly for 12 doses. [facility] ergocalcife rol, vitamin d2, 1,250 mcg (50,000 unit) capsule 04-15 00:00: 00 07-03 05:59 :00 No [id number] Take 1 capsule by mouth weekly for 12 doses. [facility] ergocalcife rol, vitamin d2, 1,250 mcg (50,000 unit) capsule 04-15 00:00: 00 07-03 05:59 :00 No [id number] Take 1 capsule by mouth weekly for 12 doses. [facility] ergocalcife rol, vitamin d2, 1,250 mcg (50,000 unit) capsule 04-15 00:00: 00 07-03 05:59 :00 No [id number] Take 1 capsule by mouth weekly for 12 doses. [facility] ergocalcife rol, vitamin d2, 1,250 mcg (50,000 unit) capsule 04-15 00:00: 00 07-03 05:59 :00 No [id number] Take 1 capsule by mouth weekly for 12 doses. [facility] ergocalcife rol, vitamin d2, 1,250 mcg (50,000 unit) capsule 04-15 00:00: 00 07-03 05:59 :00 No [id number] Take 1 capsule by mouth weekly for 12 doses. [facility] ergocalcife rol, vitamin d2, 1,250 mcg (50,000 unit) capsule 04-15 00:00: 00 07-03 05:59 :00 No [id number] Take 1 capsule by mouth weekly for 12 doses. [facility] ergocalcife rol, vitamin d2, 1,250 mcg (50,000 unit) capsule 04-15 00:00: 00 07-03 05:59 :00 No [id number] Take 1 capsule by mouth weekly for 12 doses. [facility] ergocalcife rol, vitamin d2, 1,250 mcg (50,000 unit) capsule 04-15 00:00: 00 07-03 05:59 :00 No [id number] Take 1 capsule by mouth weekly for 12 doses. [facility] ergocalcife rol, vitamin d2, 1,250 mcg (50,000 unit) capsule 04-15 00:00: 00 07-03 05:59 :00 No [id number] Take 1 capsule by mouth weekly for 12 doses. [facility] ergocalcife rol, vitamin d2, 1,250 mcg (50,000 unit) capsule 04-15 00:00: 00 07-03 05:59 :00 No [id number] Take 1 capsule by mouth weekly for 12 doses. [facility] ergocalcife rol, vitamin d2, 1,250 mcg (50,000 unit) capsule 04-15 00:00: 00 07-03 05:59 :00 No [id number] Take 1 capsule by mouth weekly for 12 doses. [facility] ergocalcife rol, vitamin d2, 1,250 mcg (50,000 unit) capsule 04-15 00:00: 00 07-03 05:59 :00 No [id number] Take 1 capsule by mouth weekly for 12 doses. [facility] ergocalcife rol, vitamin d2, 1,250 mcg (50,000 unit) capsule 04-15 00:00: 00 07-03 05:59 :00 No [id number] Take 1 capsule by mouth weekly for 12 doses. [facility] ergocalcife rol, vitamin d2, 1,250 mcg (50,000 unit) capsule 04-15 00:00: 00 07-03 05:59 :00 No [id number] Take 1 capsule by mouth weekly for 12 doses. [facility] ergocalcife rol, vitamin d2, 1,250 mcg (50,000 unit) capsule 04-15 00:00: 00 07-03 05:59 :00 No [id number] Take 1 capsule by mouth weekly for 12 doses. [facility] ergocalcife rol, vitamin d2, 1,250 mcg (50,000 unit) capsule 04-15 00:00: 00 07-03 05:59 :00 No [id number] Take 1 capsule by mouth weekly for 12 doses. [facility] ergocalcife rol, vitamin d2, 1,250 mcg (50,000 unit) capsule 04-15 00:00: 00 07-03 05:59 :00 No [id number] Take 1 capsule by mouth weekly for 12 doses. [facility] ergocalcife rol, vitamin d2, 1,250 mcg (50,000 unit) capsule 04-15 00:00: 00 07-03 05:59 :00 No [id number] Take 1 capsule by mouth weekly for 12 doses. [facility] ergocalcife rol, vitamin d2, 1,250 mcg (50,000 unit) capsule 04-15 00:00: 00 07-03 05:59 :00 No [id number] Take 1 capsule by mouth weekly for 12 doses. [facility] ergocalcife rol, vitamin d2, 1,250 mcg (50,000 unit) capsule 04-15 00:00: 00 07-03 05:59 :00 No [id number] Take 1 capsule by mouth weekly for 12 doses. [facility] ergocalcife rol, vitamin d2, 1,250 mcg (50,000 unit) capsule 04-15 00:00: 00 07-03 05:59 :00 No [id number] Take 1 capsule by mouth weekly for 12 doses. [facility] ergocalcife rol, vitamin d2, 1,250 mcg (50,000 unit) capsule 04-15 00:00: 00 07-03 05:59 :00 No [id number] Take 1 capsule by mouth weekly for 12 doses. [facility] ergocalcife rol, vitamin d2, 1,250 mcg (50,000 unit) capsule 04-15 00:00: 00 07-03 05:59 :00 No [id number] Take 1 capsule by mouth weekly for 12 doses. [facility] ergocalcife rol, vitamin d2, 1,250 mcg (50,000 unit) capsule 04-15 00:00: 00 07-03 05:59 :00 No [id number] Take 1 capsule by mouth weekly for 12 doses. [facility] ergocalcife rol, vitamin d2, 1,250 mcg (50,000 unit) capsule 04-15 00:00: 00 07-03 05:59 :00 No [id number] Take 1 capsule by mouth weekly for 12 doses. [facility] ergocalcife rol, vitamin d2, 1,250 mcg (50,000 unit) capsule 04-15 00:00: 07-03 05:59 :00 No [id number] Take 1 capsule by mouth weekly for 12 doses. [facility] ergocalcife rol, vitamin d2, 1,250 mcg (50,000 unit) capsule 04-15 00:00: 00 07-03 05:59 :00 No [id number] Take 1 capsule by mouth weekly for 12 doses. [facility] ergocalcife rol, vitamin d2, 1,250 mcg (50,000 unit) capsule 04-15 00:00: 00 07-03 05:59 :00 No [id number] Take 1 capsule by mouth weekly for 12 doses. [facility] ergocalcife rol, vitamin d2, 1,250 mcg (50,000 unit) capsule 04-15 00:00: 00 07-03 05:59 :00 No [id number] Take 1 capsule by mouth weekly for 12 doses. [facility] ergocalcife rol, vitamin d2, 1,250 mcg (50,000 unit) capsule 04-15 00:00: 00 07-03 05:59 :00 No [id number] Take 1 capsule by mouth weekly for 12 doses. [facility] ergocalcife rol, vitamin d2, 1,250 mcg (50,000 unit) capsule 04-15 00:00: 00 07-03 05:59 :00 No [id number] Take 1 capsule by mouth weekly for 12 doses. [facility] ergocalcife rol, vitamin d2, 1,250 mcg (50,000 unit) capsule 04-15 00:00: 00 07-03 05:59 :00 No [id number] Take 1 capsule by mouth weekly for 12 doses. [facility] ergocalcife rol, vitamin d2, 1,250 mcg (50,000 unit) capsule 04-15 00:00: 00 07-03 05:59 :00 No [id number] Take 1 capsule by mouth weekly for 12 doses. [facility] ergocalcife rol, vitamin d2, 1,250 mcg (50,000 unit) capsule 04-15 00:00: 00 07-03 05:59 :00 No [id number] Take 1 capsule by mouth weekly for 12 doses. [facility] ergocalcife rol, vitamin d2, 1,250 mcg (50,000 unit) capsule 04-15 00:00: 00 07-03 05:59 :00 No [id number] Take 1 capsule by mouth weekly for 12 doses. [facility] ergocalcife rol, vitamin d2, 1,250 mcg (50,000 unit) capsule 04-15 00:00: 00 07-03 05:59 :00 No [id number] Take 1 capsule by mouth weekly for 12 doses. [facility] ergocalcife rol, vitamin d2, 1,250 mcg (50,000 unit) capsule 04-15 00:00: 00 07-03 05:59 :00 No [id number] Take 1 capsule by mouth weekly for 12 doses. [facility] ergocalcife rol, vitamin d2, 1,250 mcg (50,000 unit) capsule 04-15 00:00: 00 07-03 05:59 :00 No [id number] Take 1 capsule by mouth weekly for 12 doses. [facility] ergocalcife rol, vitamin d2, 1,250 mcg (50,000 unit) capsule 04-15 00:00: 00 07-03 05:59 :00 No [id number] Take 1 capsule by mouth weekly for 12 doses. [facility] ergocalcife rol, vitamin d2, 1,250 mcg (50,000 unit) capsule 04-15 00:00: 00 07-03 05:59 :00 No [id number] Take 1 capsule by mouth weekly for 12 doses. [facility] ergocalcife rol, vitamin d2, 1,250 mcg (50,000 unit) capsule 04-15 00:00: 00 07-03 05:59 :00 No [id number] Take 1 capsule by mouth weekly for 12 doses. [facility] ergocalcife rol, vitamin d2, 1,250 mcg (50,000 unit) capsule 04-15 00:00: 00 07-03 05:59 :00 No [id number] Take 1 capsule by mouth weekly for 12 doses. [facility] ergocalcife rol, vitamin d2, 1,250 mcg (50,000 unit) capsule 04-15 00:00: 00 07-03 05:59 :00 No [id number] Take 1 capsule by mouth weekly for 12 doses. [facility] ergocalcife rol, vitamin d2, 1,250 mcg (50,000 unit) capsule 04-15 00:00: 00 07-03 05:59 :00 No [id number] Take 1 capsule by mouth weekly for 12 doses. [facility] ergocalcife rol, vitamin d2, 1,250 mcg (50,000 unit) capsule 04-15 00:00: 00 07-03 05:59 :00 No [id number] Take 1 capsule by mouth weekly for 12 doses. [facility] ergocalcife rol, vitamin d2, 1,250 mcg (50,000 unit) capsule 04-15 00:00: 00 07-03 05:59 :00 No [id number] Take 1 capsule by mouth weekly for 12 doses. [facility] ergocalcife rol, vitamin d2, 1,250 mcg (50,000 unit) capsule 04-15 00:00: 00 07-03 05:59 :00 No [id number] Take 1 capsule by mouth weekly for 12 doses. [facility] [facility]COUMADIN[facility] tablet 2.5 mg 04-08 22:00: 00 Yes 2.5mg 2.5 mg, Oral, DAILY AT 1700, First dose (after last modificati on) on Tue04/08/23 at 1700, Until Discontinu ed, Routine
INR Goal Range: 2-3
IND ICATION (More than one indication for warfarin can be selected): Atrial fibrillati on/flutter [facility] Hydrocodone -Acetaminop hen 7.5-300 mg tablet 04-08 17:31: 12 04-08 00:00 :00 No 1{tbl} Take 1 tablet by mouth as needed for Pain (scale 4-6). [facility] metoprolol tartrate 50 mg tablet 04-08 17:31: 04-08 00:00 :00 No 50mg Take 1 tablet by mouth in the morning and 1 tablet in the evening. Patient was prescribed this in the hospital, but patient's daughter stated medication s got confused at follow up appts. [facility] diltiazem (CARDIZEM) tablet 60 mg 04-08 17:00: 00 Yes 60mg 60 mg, Oral, Q6H, First dose (after last modificati on) on Tue04/08/23 at 1200, Until Discontinu ed, Routine [facility] carvediloL (COREG) 25 mg tablet 04-08 16:03: 22 04-08 00:00 :00 No 25mg Take 1 tablet by mouth in the morning and 1 tablet in the evening. Take with meals. [facility] aspirin EC tablet 81 mg 04-08 14:00: 00 04-08 17:12 :30 No 81mg 81 mg, Oral, DAILY, First dose on Tue04/08/23 at 0900, Until Discontinu ed, Routine [facility] metoprolol tartrate (LOPRESSOR) tablet 50 mg 04-08 13:00: 00 Yes 50mg 50 mg, Oral, BID, First dose on Tue04/08/23 at 0800, Until Discontinu ed, Routine [facility] atorvastati n (LIPITOR) tablet 80 mg 04-08 02:00: 00 Yes 80mg 80 mg, Oral, QHS, First dose on Tue04/07/23 at 2100, Until Discontinu ed, Routine [facility] metoprolol tartrate 50 mg tablet 04-08 00:00: 00 05-09 04:59 :00 No [id number] 50mg Take 1 tablet by mouth in the morning and 1 tablet in the evening. Do all this for 30 days. [facility] warfarin 2.5 mg tablet 04-08 00:00: 00 05-09 04:59 :00 No [id number] 2.5mg Take 1 tablet by mouth every evening for 30 days. [facility] diltiazem XR 240 mg 24 hr capsule 04-08 00:00: 00 05-09 04:59 :00 No [id number] 240mg Take 1 capsule by mouth in the morning for 30 days. [facility] metoprolol tartrate 50 mg tablet 04-08 00:00: 00 05-09 04:59 :00 No [id number] 50mg Take 1 tablet by mouth in the morning and 1 tablet in the evening. Do all this for 30 days. [facility] warfarin 2.5 mg tablet 04-08 00:00: 00 05-09 04:59 :00 No [id number] 2.5mg Take 1 tablet by mouth every evening for 30 days. [facility] diltiazem XR 240 mg 24 hr capsule 04-08 00:00: 00 05-09 04:59 :00 No [id number] 240mg Take 1 capsule by mouth in the morning for 30 days. [facility] metoprolol tartrate 50 mg tablet 04-08 00:00: 00 05-09 04:59 :00 No [id number] 50mg Take 1 tablet by mouth in the morning and 1 tablet in the evening. Do all this for 30 days. [facility] warfarin 2.5 mg tablet 04-08 00:00: 00 05-09 04:59 :00 No [id number] 2.5mg Take 1 tablet by mouth every evening for 30 days. [facility] diltiazem XR 240 mg 24 hr capsule 04-08 00:00: 00 05-09 04:59 :00 No [id number] 240mg Take 1 capsule by mouth in the morning for 30 days. [facility] metoprolol tartrate 50 mg tablet 04-08 00:00: 00 05-09 04:59 :00 No [id number] 50mg Take 1 tablet by mouth in the morning and 1 tablet in the evening. Do all this for 30 days. [facility] warfarin 2.5 mg tablet 04-08 00:00: 00 05-09 04:59 :00 No [id number] 2.5mg Take 1 tablet by mouth every evening for 30 days. [facility] diltiazem XR 240 mg 24 hr capsule 04-08 00:00: 00 05-09 04:59 :00 No [id number] 240mg Take 1 capsule by mouth in the morning for 30 days. [facility] metoprolol tartrate 50 mg tablet 04-08 00:00: 00 05-09 04:59 :00 No [id number] 50mg Take 1 tablet by mouth in the morning and 1 tablet in the evening. Do all this for 30 days. [facility] warfarin 2.5 mg tablet 04-08 00:00: 00 05-09 04:59 :00 No [id number] 2.5mg Take 1 tablet by mouth every evening for 30 days. [facility] diltiazem XR 240 mg 24 hr capsule 04-08 00:00: 00 05-09 04:59 :00 No [id number] 240mg Take 1 capsule by mouth in the morning for 30 days. [facility] metoprolol tartrate 50 mg tablet 04-08 00:00: 00 05-09 04:59 :00 No [id number] 50mg Take 1 tablet by mouth in the morning and 1 tablet in the evening. Do all this for 30 days. [facility] warfarin 2.5 mg tablet 04-08 00:00: 00 05-09 04:59 :00 No [id number] 2.5mg Take 1 tablet by mouth every evening for 30 days. [facility] diltiazem XR 240 mg 24 hr capsule 04-08 00:00: 00 05-09 04:59 :00 No [id number] 240mg Take 1 capsule by mouth in the morning for 30 days. [facility] metoprolol tartrate 50 mg tablet 04-08 00:00: 00 05-09 04:59 :00 No [id number] 50mg Take 1 tablet by mouth in the morning and 1 tablet in the evening. Do all this for 30 days. [facility] warfarin 2.5 mg tablet 04-08 00:00: 00 05-09 04:59 :00 No [id number] 2.5mg Take 1 tablet by mouth every evening for 30 days. [facility] diltiazem XR 240 mg 24 hr capsule 04-08 00:00: 00 05-09 04:59 :00 No [id number] 240mg Take 1 capsule by mouth in the morning for 30 days. [facility] metoprolol tartrate 50 mg tablet 04-08 00:00: 00 05-09 04:59 :00 No [id number] 50mg Take 1 tablet by mouth in the morning and 1 tablet in the evening. Do all this for 30 days. [facility] warfarin 2.5 mg tablet 04-08 00:00: 00 05-09 04:59 :00 No [id number] 2.5mg Take 1 tablet by mouth every evening for 30 days. [facility] diltiazem XR 240 mg 24 hr capsule 04-08 00:00: 00 05-09 04:59 :00 No [id number] 240mg Take 1 capsule by mouth in the morning for 30 days. [facility] metoprolol tartrate 50 mg tablet 04-08 00:00: 00 05-09 04:59 :00 No [id number] 50mg Take 1 tablet by mouth in the morning and 1 tablet in the evening. Do all this for 30 days. [facility] warfarin 2.5 mg tablet 04-08 00:00: 00 05-09 04:59 :00 No [id number] 2.5mg Take 1 tablet by mouth every evening for 30 days. [facility] diltiazem XR 240 mg 24 hr capsule 04-08 00:00: 00 05-09 04:59 :00 No [id number] 240mg Take 1 capsule by mouth in the morning for 30 days. [facility] metoprolol tartrate 50 mg tablet 04-08 00:00: 00 05-09 04:59 :00 No [id number] 50mg Take 1 tablet by mouth in the morning and 1 tablet in the evening. Do all this for 30 days. [facility] warfarin 2.5 mg tablet 04-08 00:00: 00 05-09 04:59 :00 No [id number] 2.5mg Take 1 tablet by mouth every evening for 30 days. [facility] diltiazem XR 240 mg 24 hr capsule 04-08 00:00: 00 05-09 04:59 :00 No [id number] 240mg Take 1 capsule by mouth in the morning for 30 days. [facility] metoprolol tartrate 50 mg tablet 04-08 00:00: 00 05-09 04:59 :00 No [id number] 50mg Take 1 tablet by mouth in the morning and 1 tablet in the evening. Do all this for 30 days. [facility] warfarin 2.5 mg tablet 04-08 00:00: 00 05-09 04:59 :00 No [id number] 2.5mg Take 1 tablet by mouth every evening for 30 days. [facility] diltiazem XR 240 mg 24 hr capsule 04-08 00:00: 00 05-09 04:59 :00 No [id number] 240mg Take 1 capsule by mouth in the morning for 30 days. [facility] metoprolol tartrate 50 mg tablet 04-08 00:00: 00 05-09 04:59 :00 No [id number] 50mg Take 1 tablet by mouth in the morning and 1 tablet in the evening. Do all this for 30 days. [facility] warfarin 2.5 mg tablet 04-08 00:00: 00 05-09 04:59 :00 No [id number] 2.5mg Take 1 tablet by mouth every evening for 30 days. [facility] diltiazem XR 240 mg 24 hr capsule 04-08 00:00: 00 05-09 04:59 :00 No [id number] 240mg Take 1 capsule by mouth in the morning for 30 days. [facility] metoprolol tartrate 50 mg tablet 04-08 00:00: 00 05-09 04:59 :00 No [id number] 50mg Take 1 tablet by mouth in the morning and 1 tablet in the evening. Do all this for 30 days. [facility] warfarin 2.5 mg tablet 04-08 00:00: 00 05-09 04:59 :00 No [id number] 2.5mg Take 1 tablet by mouth every evening for 30 days. [facility] diltiazem XR 240 mg 24 hr capsule 04-08 00:00: 00 05-09 04:59 :00 No [id number] 240mg Take 1 capsule by mouth in the morning for 30 days. [facility] metoprolol tartrate 50 mg tablet 04-08 00:00: 00 05-09 04:59 :00 No [id number] 50mg Take 1 tablet by mouth in the morning and 1 tablet in the evening. Do all this for 30 days. [facility] warfarin 2.5 mg tablet 04-08 00:00: 00 05-09 04:59 :00 No [id number] [id number] 2.5mg Take 1 tablet by mouth every evening for 30 days. [facility] diltiazem XR 240 mg 24 hr capsule 04-08 00:00: 00 05-09 04:59 :00 No [id number] 240mg Take 1 capsule by mouth in the morning for 30 days. [facility] metoprolol tartrate 50 mg tablet 04-08 00:00: 00 05-09 04:59 :00 No [id number] 50mg Take 1 tablet by mouth in the morning and 1 tablet in the evening. Do all this for 30 days. [facility] warfarin 2.5 mg tablet 04-08 00:00: 00 05-09 04:59 :00 No [id number] 2.5mg Take 1 tablet by mouth every evening for 30 days. [facility] diltiazem XR 240 mg 24 hr capsule 04-08 00:00: 00 05-09 04:59 :00 No [id number] 240mg Take 1 capsule by mouth in the morning for 30 days. [facility] metoprolol tartrate 50 mg tablet 04-08 00:00: 00 05-09 04:59 :00 No [id number] 50mg Take 1 tablet by mouth in the morning and 1 tablet in the evening. Do all this for 30 days. [facility] warfarin 2.5 mg tablet 04-08 00:00: 00 05-09 04:59 :00 No [id number] 2.5mg Take 1 tablet by mouth every evening for 30 days. [facility] diltiazem XR 240 mg 24 hr capsule 04-08 00:00: 00 05-09 04:59 :00 No [id number] 240mg Take 1 capsule by mouth in the morning for 30 days. [facility] metoprolol tartrate 50 mg tablet 04-08 00:00: 00 05-09 04:59 :00 No [id number] 50mg Take 1 tablet by mouth in the morning and 1 tablet in the evening. Do all this for 30 days. [facility] warfarin 2.5 mg tablet 04-08 00:00: 00 05-09 04:59 :00 No [id number] [id number] 2.5mg Take 1 tablet by mouth every evening for 30 days. [facility] diltiazem XR 240 mg 24 hr capsule 04-08 00:00: 00 05-09 04:59 :00 No [id number] 240mg Take 1 capsule by mouth in the morning for 30 days. [facility] metoprolol tartrate 50 mg tablet 04-08 00:00: 00 05-09 04:59 :00 No [id number] 50mg Take 1 tablet by mouth in the morning and 1 tablet in the evening. Do all this for 30 days. [facility] warfarin 2.5 mg tablet 04-08 00:00: 00 05-09 04:59 :00 No [id number] [id number] 2.5mg Take 1 tablet by mouth every evening for 30 days. [facility] diltiazem XR 240 mg 24 hr capsule 04-08 00:00: 00 05-09 04:59 :00 No [id number] 240mg Take 1 capsule by mouth in the morning for 30 days. [facility] metoprolol tartrate 50 mg tablet 04-08 00:00: 00 05-09 04:59 :00 No [id number] 50mg Take 1 tablet by mouth in the morning and 1 tablet in the evening. Do all this for 30 days. [facility] warfarin 2.5 mg tablet 04-08 00:00: 00 05-09 04:59 :00 No [id number] [id number] 2.5mg Take 1 tablet by mouth every evening for 30 days. [facility] diltiazem XR 240 mg 24 hr capsule 04-08 00:00: 00 05-09 04:59 :00 No [id number] 240mg Take 1 capsule by mouth in the morning for 30 days. [facility] metoprolol tartrate 50 mg tablet 04-08 00:00: 00 05-09 04:59 :00 No [id number] 50mg Take 1 tablet by mouth in the morning and 1 tablet in the evening. Do all this for 30 days. [facility] warfarin 2.5 mg tablet 04-08 00:00: 00 05-09 04:59 :00 No [id number] 2.5mg Take 1 tablet by mouth every evening for 30 days. [facility] diltiazem XR 240 mg 24 hr capsule 04-08 00:00: 00 05-09 04:59 :00 No [id number] 240mg Take 1 capsule by mouth in the morning for 30 days. [facility] metoprolol tartrate 50 mg tablet 04-08 00:00: 00 05-09 04:59 :00 No [id number] 50mg Take 1 tablet by mouth in the morning and 1 tablet in the evening. Do all this for 30 days. [facility] warfarin 2.5 mg tablet 04-08 00:00: 00 05-09 04:59 :00 No [id number] 2.5mg Take 1 tablet by mouth every evening for 30 days. [facility] diltiazem XR 240 mg 24 hr capsule 04-08 00:00: 00 05-09 04:59 :00 No [id number] 240mg Take 1 capsule by mouth in the morning for 30 days. [facility] metoprolol tartrate 50 mg tablet 04-08 00:00: 00 05-09 04:59 :00 No [id number] 50mg Take 1 tablet by mouth in the morning and 1 tablet in the evening. Do all this for 30 days. [facility] warfarin 2.5 mg tablet 04-08 00:00: 00 05-09 04:59 :00 No [id number] 2.5mg Take 1 tablet by mouth every evening for 30 days. [facility] diltiazem XR 240 mg 24 hr capsule 04-08 00:00: 00 05-09 04:59 :00 No [id number] 240mg Take 1 capsule by mouth in the morning for 30 days. [facility] metoprolol tartrate 50 mg tablet 04-08 00:00: 00 05-09 04:59 :00 No [id number] 50mg Take 1 tablet by mouth in the morning and 1 tablet in the evening. Do all this for 30 days. [facility] warfarin 2.5 mg tablet 04-08 00:00: 00 05-09 04:59 :00 No [id number] [id number] 2.5mg Take 1 tablet by mouth every evening for 30 days. [facility] diltiazem XR 240 mg 24 hr capsule 04-08 00:00: 00 05-09 04:59 :00 No [id number] 240mg Take 1 capsule by mouth in the morning for 30 days. [facility] metoprolol tartrate 50 mg tablet 04-08 00:00: 00 05-09 04:59 :00 No [id number] 50mg Take 1 tablet by mouth in the morning and 1 tablet in the evening. Do all this for 30 days. [facility] warfarin 2.5 mg tablet 04-08 00:00: 00 05-09 04:59 :00 No [id number] [id number] 2.5mg Take 1 tablet by mouth every evening for 30 days. [facility] diltiazem XR 240 mg 24 hr capsule 04-08 00:00: 00 05-09 04:59 :00 No [id number] 240mg Take 1 capsule by mouth in the morning for 30 days. [facility] metoprolol tartrate 50 mg tablet 04-08 00:00: 00 05-09 04:59 :00 No [id number] [id number] 50mg Take 1 tablet by mouth in the morning and 1 tablet in the evening. Do all this for 30 days. [facility] warfarin 2.5 mg tablet 04-08 00:00: 00 05-09 04:59 :00 No [id number] 2.5mg Take 1 tablet by mouth every evening for 30 days. [facility] diltiazem XR 240 mg 24 hr capsule 04-08 00:00: 00 05-09 04:59 :00 No [id number] 240mg Take 1 capsule by mouth in the morning for 30 days. [facility] metoprolol tartrate 50 mg tablet 04-08 00:00: 00 05-09 04:59 :00 No [id number] 50mg Take 1 tablet by mouth in the morning and 1 tablet in the evening. Do all this for 30 days. [facility] warfarin 2.5 mg tablet 04-08 00:00: 00 05-09 04:59 :00 No [id number] [id number] 2.5mg Take 1 tablet by mouth every evening for 30 days. [facility] diltiazem XR 240 mg 24 hr capsule 04-08 00:00: 00 05-09 04:59 :00 No [id number] 240mg Take 1 capsule by mouth in the morning for 30 days. [facility] metoprolol tartrate 50 mg tablet 04-08 00:00: 00 05-09 04:59 :00 No [id number] [id number] 50mg Take 1 tablet by mouth in the morning and 1 tablet in the evening. Do all this for 30 days. [facility] warfarin 2.5 mg tablet 04-08 00:00: 00 05-09 04:59 :00 No [id number] [id number] 2.5mg Take 1 tablet by mouth every evening for 30 days. [facility] diltiazem XR 240 mg 24 hr capsule 04-08 00:00: 00 05-09 04:59 :00 No [id number] 240mg Take 1 capsule by mouth in the morning for 30 days. [facility] metoprolol tartrate 50 mg tablet 04-08 00:00: 00 05-09 04:59 :00 No [id number] 50mg Take 1 tablet by mouth in the morning and 1 tablet in the evening. Do all this for 30 days. [facility] warfarin 2.5 mg tablet 04-08 00:00: 00 05-09 04:59 :00 No [id number] [id number] 2.5mg Take 1 tablet by mouth every evening for 30 days. [facility] diltiazem XR 240 mg 24 hr capsule 04-08 00:00: 00 05-09 04:59 :00 No [id number] 240mg Take 1 capsule by mouth in the morning for 30 days. [facility] metoprolol tartrate 50 mg tablet 04-08 00:00: 00 05-09 04:59 :00 No [id number] 50mg Take 1 tablet by mouth in the morning and 1 tablet in the evening. Do all this for 30 days. [facility] warfarin 2.5 mg tablet 04-08 00:00: 00 05-09 04:59 :00 No [id number] [id number] 2.5mg Take 1 tablet by mouth every evening for 30 days. [facility] diltiazem XR 240 mg 24 hr capsule 04-08 00:00: 00 05-09 04:59 :00 No [id number] [id number] 240mg Take 1 capsule by mouth in the morning for 30 days. [facility] metoprolol tartrate 50 mg tablet 04-08 00:00: 00 05-09 04:59 :00 No [id number] [id number] 50mg Take 1 tablet by mouth in the morning and 1 tablet in the evening. Do all this for 30 days. [facility] warfarin 2.5 mg tablet 04-08 00:00: 00 05-09 04:59 :00 No [id number] [id number] 2.5mg Take 1 tablet by mouth every evening for 30 days. [facility] diltiazem XR 240 mg 24 hr capsule 04-08 00:00: 00 05-09 04:59 :00 No [id number] [id number] 240mg Take 1 capsule by mouth in the morning for 30 days. [facility] metoprolol tartrate 50 mg tablet 04-08 00:00: 00 05-09 04:59 :00 No [id number] 50mg Take 1 tablet by mouth in the morning and 1 tablet in the evening. Do all this for 30 days. [facility] warfarin 2.5 mg tablet 04-08 00:00: 00 05-09 04:59 :00 No [id number] [id number] 2.5mg Take 1 tablet by mouth every evening for 30 days. [facility] diltiazem XR 240 mg 24 hr capsule 04-08 00:00: 00 05-09 04:59 :00 No [id number] 240mg Take 1 capsule by mouth in the morning for 30 days. [facility] metoprolol tartrate 50 mg tablet 04-08 00:00: 00 05-09 04:59 :00 No [id number] [id number] 50mg Take 1 tablet by mouth in the morning and 1 tablet in the evening. Do all this for 30 days. [facility] warfarin 2.5 mg tablet 04-08 00:00: 00 05-09 04:59 :00 No [id number] 9109 2.5mg Take 1 tablet by mouth every evening for 30 days. [facility] diltiazem XR 240 mg 24 hr capsule 04-08 00:00: 00 05-09 04:59 :00 No [id number] 240mg Take 1 capsule by mouth in the morning for 30 days. [facility] warfarin 2.5 mg tablet 2022-04-08 00:00: 00 05-09 04:59 :00 No [id number] [id number] 2.5mg Take 1 tablet by mouth every evening for 30 days. [facility] diltiazem XR 240 mg 24 hr capsule 2022-0 04-08 00:00: 00 05-09 04:59 :00 No [id number] [id number] 240mg Take 1 capsule by mouth in the morning for 30 days. [facility] warfarin 2.5 mg tablet 2022-04-08 00:00: 00 05-09 04:59 :00 No [id number] [id number] 2.5mg Take 1 tablet by mouth every evening for 30 days. [facility] diltiazem XR 240 mg 24 hr capsule 04-08 00:00: 00 05-09 04:59 :00 No [id number] 240mg Take 1 capsule by mouth in the morning for 30 days. [facility] warfarin 2.5 mg tablet 04-08 00:00: 00 05-09 04:59 :00 No [id number] [id number] 2.5mg Take 1 tablet by mouth every evening for 30 days. [facility] diltiazem XR 240 mg 24 hr capsule 04-08 00:00: 00 05-09 04:59 :00 No [id number] [id number] 240mg Take 1 capsule by mouth in the morning for 30 days. [facility] warfarin 2.5 mg tablet 2022-0 04-08 00:00: 00 05-09 04:59 :00 No [id number] [id number] 2.5mg Take 1 tablet by mouth every evening for 30 days. [facility] diltiazem XR 240 mg 24 hr capsule 04-08 00:00: 00 05-09 04:59 :00 No [id number] [id number] 240mg Take 1 capsule by mouth in the morning for 30 days. [facility] warfarin 2.5 mg tablet 04-08 00:00: 00 05-09 04:59 :00 No [id number] 9109 2.5mg Take 1 tablet by mouth every evening for 30 days. [facility] diltiazem XR 240 mg 24 hr capsule 04-08 00:00: 00 05-09 04:59 :00 No [id number] [id number] 240mg Take 1 capsule by mouth in the morning for 30 days. [facility] metoprolol tartrate 50 mg tablet 04-08 00:00: 00 05-06 00:00 :00 No [id number] 50mg Take 1 tablet by mouth in the morning and 1 tablet in the evening. Do all this for 30 days. [facility] metoprolol tartrate 50 mg tablet 04-08 00:00: 00 05-06 00:00 :00 No [id number] [id number] 50mg Take 1 tablet by mouth in the morning and 1 tablet in the evening. Do all this for 30 days. [facility] metoprolol tartrate 50 mg tablet 04-08 00:00: 00 05-06 00:00 :00 No [id number] [id number] 50mg Take 1 tablet by mouth in the morning and 1 tablet in the evening. Do all this for 30 days. [facility] metoprolol tartrate 50 mg tablet 04-08 00:00: 00 05-06 00:00 :00 No [id number] [id number] 50mg Take 1 tablet by mouth in the morning and 1 tablet in the evening. Do all this for 30 days. [facility] metoprolol tartrate 50 mg tablet 04-08 00:00: 00 05-06 00:00 :00 No [id number] 50mg Take 1 tablet by mouth in the morning and 1 tablet in the evening. Do all this for 30 days. [facility] HYDROcodone -acetaminop hen 5-325 mg tablet 04-08 00:00: 00 04-16 04:59 :00 No [id number] 1{tbl} Take 1 tablet by mouth every 6 (six) hours as needed for Pain (scale 4-6) or Pain (scale 7-10) for up to 7 days. Indication s: acute pain [facility] HYDROcodone -acetaminop hen 5-325 mg tablet 0 8-25 00:00: 00 04-16 04:59 :00 No [id number] 1{tbl} Take 1 tablet by mouth every 6 (six) hours as needed for Pain (scale 4-6) or Pain (scale 7-10) for up to 7 days. Indication s: acute pain [facility] HYDROcodone -acetaminop hen 5-325 mg tablet 8-25 00:00: 00 04-16 04:59 :00 No [id number] 1{tbl} Take 1 tablet by mouth every 6 (six) hours as needed for Pain (scale 4-6) or Pain (scale 7-10) for up to 7 days. Indication s: acute pain [facility] HYDROcodone -acetaminop hen 5-325 mg tablet 0 8-25 00:00: 00 04-15 00:00 :00 No [id number] 1{tbl} Take 1 tablet by mouth every 6 (six) hours as needed for Pain (scale 4-6) or Pain (scale 7-10) for up to 7 days. Indication s: acute pain [facility] HYDROcodone -acetaminop hen 5-325 mg tablet 0 8-25 00:00: 00 04-15 00:00 :00 No [id number] 1{tbl} Take 1 tablet by mouth every 6 (six) hours as needed for Pain (scale 4-6) or Pain (scale 7-10) for up to 7 days. Indication s: acute pain [facility] HYDROcodone -acetaminop hen 5-325 mg tablet 2022-0 8-25 00:00: 00 04-15 00:00 :00 No [id number] 1{tbl} Take 1 tablet by mouth every 6 (six) hours as needed for Pain (scale 4-6) or Pain (scale 7-10) for up to 7 days. Indication s: acute pain [facility] HYDROcodone -acetaminop hen 5-325 mg tablet 04-08 00:00: 00 04-15 00:00 :00 No [id number] 1{tbl} Take 1 tablet by mouth every 6 (six) hours as needed for Pain (scale 4-6) or Pain (scale 7-10) for up to 7 days. Indication s: acute pain [facility] HYDROcodone -acetaminop hen 5-325 mg tablet 04-08 00:00: 00 04-15 00:00 :00 No [id number] 1{tbl} Take 1 tablet by mouth every 6 (six) hours as needed for Pain (scale 4-6) or Pain (scale 7-10) for up to 7 days. Indication s: acute pain [facility] HYDROcodone -acetaminop hen 5-325 mg tablet 04-08 00:00: 00 04-15 00:00 :00 No [id number] 1{tbl} Take 1 tablet by mouth every 6 (six) hours as needed for Pain (scale 4-6) or Pain (scale 7-10) for up to 7 days. Indication s: acute pain [facility] morpHINE (2 mg/mL) injection 2 mg 04-07 23:04: 49 Yes 2mg 2 mg, Slow IV Push, Q4HPRN, Starting on Tue04/07/23 at 1804, Until Discontinu ed, Routine, Pain (scale 7-10) [facility] HYDROcodone -acetaminop hen (NORCO 5) 5-325 mg tablet 1 tablet 04-07 23:04: 18 Yes 1{tbl} 1 tablet, Oral, Q6HPRN, Starting on Tue04/07/23 at 1804, Until Discontinu ed, Routine, Pain (scale 4-6) [facility] diltiazem (CARDIZEM) tablet 30 mg 04-07 23:00: 00 04-08 13:35 :00 No 30mg 30 mg, Oral, Q6H, First dose on Tue04/07/23 at 1800, Until Discontinu ed, Routine [facility] warfarin (COUMADIN) tablet 3 mg 04-07 22:00: 00 04-08 17:17 :22 No 3mg 3 mg, Oral, DAILY AT 1700, First dose (after last modificati on) on Lilo 04/07/23 at 1700, Until Discontinu ed, Routine
INR Goal Range: 2-3
IND ICATION (More than one indication for warfarin can be selected): Atrial fibrillati on/flutter [facility] lidocaine (LIDODERM) 5 % (700 mg/patch) patch 1 Patch 04-07 14:00: 00 Yes 1{patch } 1 Patch, Topical, Administer over 12 Hours, DAILY, First dose on Lilo 04/07/23 at 0900, Until Discontinu ed, Routine [facility] ezetimibe (ZETIA) tablet 10 mg 04-07 14:00: 00 Yes 10mg 10 mg, Oral, DAILY, First dose on Lilo 04/07/23 at 0900, Until Discontinu ed, Routine [facility] methocarbam oL (ROBAXIN) tablet 500 mg 04-07 13:00: 00 Yes 500mg 500 mg, Oral, BID, First dose on Tue04/07/23 at 0800, Until Discontinu ed, Routine [facility] carvediloL (COREG) tablet 25 mg 04-07 13:00: 00 04-08 12:04 :23 No 25mg 25 mg, Oral, BID MEALS, First dose on Lilo 04/07/23 at 0800, Until Discontinu ed, Routine [facility] levothyroxi ne (SYNTHROID) tablet 88 mcg 04-07 12:30: 00 Yes 88ug 88 mcg, Oral, QAM-0600, First dose on Tue04/07/23 at 0730, Until Discontinu ed, Routine [facility] diazePAM (VALIUM) tablet 5 mg 04-07 12:14: 40 Yes 5mg 5 mg, Oral, BIDPRN, Starting on Tue04/07/23 at 0714, Until Discontinu ed, Routine, Muscle Spasms [facility] carvediloL (COREG) 25 mg tablet 04-07 07:15: 41 Yes 25mg Take 1 tablet by mouth in the morning and 1 tablet in the evening. Take with meals. [facility] ondansetron (ZOFRAN (PF)) injection 4 mg 04-07 04:33: 56 Yes 4mg 4 mg, Slow IV Push, Q6HPRN, Starting on Tue04/06/23 at 2333, Until Discontinu ed, Routine, Nausea and Vomiting (N/V) [facility] traMADoL (ULTRAM) tablet 50 mg 04-07 04:33: 52 04-07 23:04 :59 No 50mg 50 mg, Oral, Q8HPRN, Starting on Tue04/06/23 at 2333, Until Lilo 04/07/23 at 1804, Routine, Pain (scale 4-6) [facility] acetaminoph en (TYLENOL) tablet 1,000 mg 04-07 04:33: 42 Yes 1000mg 1,000 mg, Oral, Q6HPRN, Starting on Tue04/06/23 at 2333, Until Discontinu ed, Routine, Pain (scale 1-3) [facility] FENTanyl PF (SUBLIMAZE (PF)) injection 50 mcg 04-07 03:15: 00 04-07 02:16 :00 No 50ug 50 mcg, Slow IV Push, ONCE, 1 dose, On Tue04/06/23 at 2215, Routine [facility] diltiazem (CARDIZEM IV) injection 10 mg 04-07 02:30: 00 04-07 02:21 :00 No 10mg 10 mg, IV Push, ONCE, 1 dose, On Tue04/06/23 at 2130, STAT
[facility] member approving Restricted medication : SHERICE MCLAUGHLIN [facility] diltiazem (CARDIZEM IV) injection 15 mg 04-07 02:15: 00 04-07 02:14 :00 No 15mg 15 mg, IV Push, ONCE, 1 dose, On Tue04/06/23 at 2115, STAT
[facility] member approving Restricted medication : SHERICE MCLAUGHLIN [facility] methylPREDN ISolone (MEDROL, PEYTON,) 4 mg tablets 04-05 00:00: 00 04-12 04:59 :00 No [id number] Take by mouth SEE-INSTRU CTIONS for 6 days. follow package directions [facility] methylPREDN ISolone (MEDROL, PEYTON,) 4 mg tablets 04-05 00:00: 00 04-12 04:59 :00 No [id number] Take by mouth SEE-INSTRU CTIONS for 6 days. follow package directions [facility] methylPREDN ISolone (MEDROL, PEYTON,) 4 mg tablets 04-05 00:00: 00 04-12 04:59 :00 No [id number] Take by mouth SEE-INSTRU CTIONS for 6 days. follow package directions [facility] methylPREDN ISolone (MEDROL, PEYTON,) 4 mg tablets 04-05 00:00: 00 04-12 04:59 :00 No [id number] Take by mouth SEE-INSTRU CTIONS for 6 days. follow package directions [facility] methylPREDN ISolone (MEDROL, PEYTON,) 4 mg tablets 04-05 00:00: 00 04-12 04:59 :00 No [id number] Take by mouth SEE-INSTRU CTIONS for 6 days. follow package directions [facility] methylPREDN ISolone (MEDROL, PEYTON,) 4 mg tablets 04-05 00:00: 00 04-12 04:59 :00 No [id number] Take by mouth SEE-INSTRU CTIONS for 6 days. follow package directions [facility] methylPREDN ISolone (MEDROL, PEYTON,) 4 mg tablets 04-05 00:00: 00 04-12 04:59 :00 No [id number] Take by mouth SEE-INSTRU CTIONS for 6 days. follow package directions [facility] methylPREDN ISolone (MEDROL, PEYTON,) 4 mg tablets 04-05 00:00: 00 04-12 04:59 :00 No [id number] Take by mouth SEE-INSTRU CTIONS for 6 days. follow package directions [facility] methylPREDN ISolone (MEDROL, PEYTON,) 4 mg tablets 04-05 00:00: 00 04-12 04:59 :00 No [id number] Take by mouth SEE-INSTRU CTIONS for 6 days. follow package directions [facility] methylPREDN ISolone (MEDROL, PEYTON,) 4 mg tablets 04-05 00:00: 00 04-12 04:59 :00 No [id number] Take by mouth SEE-INSTRU CTIONS for 6 days. follow package directions [facility] methylPREDN ISolone (MEDROL, PEYTON,) 4 mg tablets 04-05 00:00: 00 04-12 04:59 :00 No [id number] Take by mouth SEE-INSTRU CTIONS for 6 days. follow package directions [facility] methylPREDN ISolone (MEDROL, PEYTON,) 4 mg tablets 04-05 00:00: 00 04-12 04:59 :00 No [id number] Take by mouth SEE-INSTRU CTIONS for 6 days. follow package directions [facility] methylPREDN ISolone (MEDROL, PEYTON,) 4 mg tablets 04-05 00:00: 00 04-12 04:59 :00 No [id number] Take by mouth SEE-INSTRU CTIONS for 6 days. follow package directions [facility] methylPREDN ISolone (MEDROL, PEYTON,) 4 mg tablets 04-05 00:00: 00 04-12 04:59 :00 No [id number] Take by mouth SEE-INSTRU CTIONS for 6 days. follow package directions [facility] methylPREDN ISolone (MEDROL, PEYTON,) 4 mg tablets 04-05 00:00: 00 04-12 04:59 :00 No [id number] Take by mouth SEE-INSTRU CTIONS for 6 days. follow package directions [facility] methylPREDN ISolone (MEDROL, PEYTON,) 4 mg tablets 04-05 00:00: 00 04-08 00:00 :00 No [id number] Take by mouth SEE-INSTRU CTIONS for 6 days. follow package directions [facility] phytonadion e (vitamin K1) (MEPHYTON) tablet 5 mg 04-01 20:30: 00 04-01 19:39 :00 No 5mg 5 mg, Oral, ONCE, 1 dose, On Tue04/01/23 at 1530, KRISTOPHER [facility] lidocaine 5 % (700 mg/patch) patch 04-01 00:00: 00 Yes [id number] 1 patch [facility] 12 [facility] % (700 mg/patch) patch 04-01 00:00: 00 Yes [id number] 1 patch every 12 hours [facility] lidocaine 5 % (700 mg/patch) patch 04-01 00:00: 00 Yes [id number] 1 patch every 12 hours [facility] lidocaine 5 % (700 mg/patch) patch 04-01 00:00: 00 Yes [id number] 1 patch every 12 hours [facility] lidocaine 5 % (700 mg/patch) patch 04-01 00:00: 00 Yes [id number] 1 patch every 12 hours [facility] lidocaine 5 % (700 mg/patch) patch 04-01 00:00: 00 Yes [id number] 1 patch every 12 hours [facility] lidocaine 5 % (700 mg/patch) patch 04-01 00:00: 00 Yes [id number] 1 patch every 12 hours [facility] lidocaine 5 % (700 mg/patch) patch 04-01 00:00: 00 Yes [id number] 1 patch every 12 hours [facility] lidocaine 5 % (700 mg/patch) patch 04-01 00:00: 00 Yes [id number] 1 patch every 12 hours [facility] lidocaine 5 % (700 mg/patch) patch 3-0 8-18 00:00: 00 Yes [id number] 1 patch every 12 hours [facility] lidocaine 5 % (700 mg/patch) patch 3-0 8-18 00:00: 00 Yes [id number] 1 patch every 12 hours [facility] lidocaine 5 % (700 mg/patch) patch 3-0 8-18 00:00: 00 Yes [id number] 1 patch every 12 hours [facility] lidocaine 5 % (700 mg/patch) patch 3-0 8-18 00:00: 00 Yes [id number] 1 patch every 12 hours [facility] lidocaine 5 % (700 mg/patch) patch 3-0 8-18 00:00: 00 Yes [id number] 1 patch every 12 hours [facility] lidocaine 5 % (700 mg/patch) patch 3-0 8-18 00:00: 00 Yes [id number] 1 patch every 12 hours [facility] lidocaine 5 % (700 mg/patch) patch 3-0 8-18 00:00: 00 Yes [id number] 1 patch every 12 hours [facility] lidocaine 5 % (700 mg/patch) patch 2022-0 8-18 00:00: 00 Yes [id number] 1 patch every 12 hours [facility] lidocaine 5 % (700 mg/patch) patch 3-0 8-18 00:00: 00 Yes [id number] 1 patch every 12 hours [facility] lidocaine 5 % (700 mg/patch) patch 3-0 8-18 00:00: 00 Yes [id number] 1 patch every 12 hours [facility] lidocaine 5 % (700 mg/patch) patch 3-0 8-18 00:00: 00 Yes [id number] 1 patch every 12 hours [facility] lidocaine 5 % (700 mg/patch) patch 3-0 8-18 00:00: 00 Yes [id number] 1 patch every 12 hours [facility] lidocaine 5 % (700 mg/patch) patch 2023-0 8-18 00:00: 00 Yes [id number] 1 patch every 12 hours [facility] lidocaine 5 % (700 mg/patch) patch 2022-0 8-18 00:00: 00 Yes [id number] 1 patch every 12 hours [facility] lidocaine 5 % (700 mg/patch) patch 2022-0 8-18 00:00: 00 Yes [id number] 1 patch every 12 hours [facility] lidocaine 5 % (700 mg/patch) patch 2022-0 8-18 00:00: 00 Yes [id number] 1 patch every 12 hours [facility] lidocaine 5 % (700 mg/patch) patch 2022-0 8-18 00:00: 00 Yes [id number] 1 patch every 12 hours [facility] lidocaine 5 % (700 mg/patch) patch 2022-0 818 00:00: 00 Yes [id number] 1 patch every 12 hours [facility] lidocaine 5 % (700 mg/patch) patch 2022-0 818 00:00: 00 Yes [id number] 1 patch every 12 hours [facility] lidocaine 5 % (700 mg/patch) patch 2022-0 8-18 00:00: 00 Yes [id number] 1 patch every 12 hours [facility] lidocaine 5 % (700 mg/patch) patch 2022-0 818 00:00: 00 Yes [id number] 1 patch every 12 hours [facility] lidocaine 5 % (700 mg/patch) patch 2022-0 818 00:00: 00 Yes [id number] 1 patch every 12 hours [facility] lidocaine 5 % (700 mg/patch) patch 2022-0 8-18 00:00: 00 Yes [id number] 1 patch every 12 hours [facility] lidocaine 5 % (700 mg/patch) patch 2022-0 8-18 00:00: 00 Yes [id number] 1 patch every 12 hours [facility] lidocaine 5 % (700 mg/patch) patch 2022-0 8-18 00:00: 00 Yes [id number] 1 patch every 12 hours [facility] lidocaine 5 % (700 mg/patch) patch 2023-0 8-18 00:00: 00 Yes [id number] 1 patch every 12 hours [facility] lidocaine 5 % (700 mg/patch) patch 3-0 8-18 00:00: 00 Yes [id number] 1 patch every 12 hours [facility] lidocaine 5 % (700 mg/patch) patch 3-0 8-18 00:00: 00 Yes [id number] 1 patch every 12 hours [facility] lidocaine 5 % (700 mg/patch) patch 3-0 8-18 00:00: 00 Yes [id number] 1 patch every 12 hours [facility] lidocaine 5 % (700 mg/patch) patch 3-0 8-18 00:00: 00 Yes [id number] 1 patch every 12 hours [facility] lidocaine 5 % (700 mg/patch) patch 3-0 8-18 00:00: 00 Yes [id number] 1 patch every 12 hours [facility] lidocaine 5 % (700 mg/patch) patch 2022-0 8-18 00:00: 00 Yes [id number] 1 patch every 12 hours [facility] lidocaine 5 % (700 mg/patch) patch 3-0 8-18 00:00: 00 Yes [id number] 1 patch every 12 hours [facility] lidocaine 5 % (700 mg/patch) patch 3-0 8-18 00:00: 00 Yes [id number] 1 patch every 12 hours [facility] lidocaine 5 % (700 mg/patch) patch 3-0 8-18 00:00: 00 Yes [id number] 1 patch every 12 hours [facility] lidocaine 5 % (700 mg/patch) patch 3-0 8-18 00:00: 00 Yes [id number] 1 patch every 12 hours [facility] lidocaine 5 % (700 mg/patch) patch 3-0 8-18 00:00: 00 Yes [id number] 1 patch every 12 hours [facility] lidocaine 5 % (700 mg/patch) patch 3-0 8-18 00:00: 00 Yes [id number] 1 patch every 12 hours [facility] lidocaine 5 % (700 mg/patch) patch 3-0 8-18 00:00: 00 Yes [id number] 1 patch every 12 hours [facility] lidocaine 5 % (700 mg/patch) patch 3-0 8-18 00:00: 00 Yes [id number] 1 patch every 12 hours [facility] lidocaine 5 % (700 mg/patch) patch 3-0 8-18 00:00: 00 Yes [id number] 1 patch every 12 hours [facility] lidocaine 5 % (700 mg/patch) patch 3-0 8-18 00:00: 00 Yes [id number] 1 patch every 12 hours [facility] lidocaine 5 % (700 mg/patch) patch 3-0 8-18 00:00: 00 Yes [id number] 1 patch every 12 hours [facility] lidocaine 5 % (700 mg/patch) patch 3-0 8-18 00:00: 00 Yes [id number] 1 patch every 12 hours [facility] lidocaine 5 % (700 mg/patch) patch 3-0 8-18 00:00: 00 Yes [id number] 1 patch every 12 hours [facility] lidocaine 5 % (700 mg/patch) patch 3-0 8-18 00:00: 00 Yes [id number] 1 patch every 12 hours [facility] lidocaine 5 % (700 mg/patch) patch 3-0 8-18 00:00: 00 Yes [id number] 1 patch every 12 hours [facility] lidocaine 5 % (700 mg/patch) patch 3-0 8-18 00:00: 00 Yes [id number] 1 patch every 12 hours [facility] lidocaine 5 % (700 mg/patch) patch 3-0 8-18 00:00: 00 Yes [id number] 1 patch every 12 hours [facility] lidocaine 5 % (700 mg/patch) patch 3-0 8-18 00:00: 00 Yes [id number] 1 patch every 12 hours [facility] lidocaine 5 % (700 mg/patch) patch 3-0 8-18 00:00: 00 Yes [id number] 1 patch every 12 hours [facility] lidocaine 5 % (700 mg/patch) patch 3-0 8-18 00:00: 00 Yes [id number] 1 patch every 12 hours [facility] lidocaine 5 % (700 mg/patch) patch 3-0 8-18 00:00: 00 Yes [id number] 1 patch every 12 hours [facility] lidocaine 5 % (700 mg/patch) patch 3-0 8-18 00:00: 00 Yes [id number] 1 patch every 12 hours [facility] lidocaine 5 % (700 mg/patch) patch 3-0 8-18 00:00: 00 Yes [id number] 1 patch every 12 hours [facility] lidocaine 5 % (700 mg/patch) patch 3-0 8-18 00:00: 00 Yes [id number] 1 patch every 12 hours [facility] lidocaine 5 % (700 mg/patch) patch 3-0 8-18 00:00: 00 Yes [id number] 1 patch every 12 hours [facility] lidocaine 5 % (700 mg/patch) patch 3-0 8-18 00:00: 00 Yes [id number] 1 patch every 12 hours [facility] lidocaine 5 % (700 mg/patch) patch 2022-0 8-18 00:00: 00 Yes [id number] 1 patch every 12 hours [facility] lidocaine 5 % (700 mg/patch) patch 3-0 8-18 00:00: 00 Yes [id number] 1 patch every 12 hours [facility] lidocaine 5 % (700 mg/patch) patch 3-0 8-18 00:00: 00 Yes [id number] 1 patch every 12 hours [facility] lidocaine 5 % (700 mg/patch) patch 3-0 8-18 00:00: 00 Yes [id number] 1 patch every 12 hours [facility] lidocaine 5 % (700 mg/patch) patch 3-0 8-18 00:00: 00 Yes [id number] 1 patch every 12 hours [facility] lidocaine 5 % (700 mg/patch) patch 3-0 8-18 00:00: 00 Yes [id number] 1 patch every 12 hours [facility] lidocaine 5 % (700 mg/patch) patch 3-0 8-18 00:00: 00 Yes [id number] 1 patch every 12 hours [facility] lidocaine 5 % (700 mg/patch) patch 3-0 8-18 00:00: 00 Yes [id number] 1 patch every 12 hours [facility] lidocaine 5 % (700 mg/patch) patch 3-0 8-18 00:00: 00 Yes [id number] 1 patch every 12 hours [facility] lidocaine 5 % (700 mg/patch) patch 3-0 8-18 00:00: 00 Yes [id number] 1 patch every 12 hours [facility] lidocaine 5 % (700 mg/patch) patch 3-0 8-18 00:00: 00 Yes [id number] 1 patch every 12 hours [facility] lidocaine 5 % (700 mg/patch) patch 3-0 8-18 00:00: 00 Yes [id number] 1 patch every 12 hours [facility] lidocaine 5 % (700 mg/patch) patch 3-0 8-18 00:00: 00 Yes [id number] 1 patch every 12 hours [facility] lidocaine 5 % (700 mg/patch) patch 2022-0 8-18 00:00: 00 Yes [id number] 1 patch every 12 hours [facility] lidocaine 5 % (700 mg/patch) patch 3-0 8-18 00:00: 00 Yes [id number] 1 patch every 12 hours [facility] lidocaine 5 % (700 mg/patch) patch 3-0 8-18 00:00: 00 Yes [id number] 1 patch every 12 hours [facility] lidocaine 5 % (700 mg/patch) patch 3-0 8-18 00:00: 00 Yes [id number] 1 patch every 12 hours [facility] lidocaine 5 % (700 mg/patch) patch 3-0 8-18 00:00: 00 Yes [id number] 1 patch every 12 hours [facility] lidocaine 5 % (700 mg/patch) patch 3-0 8-18 00:00: 00 Yes [id number] 1 patch every 12 hours [facility] lidocaine 5 % (700 mg/patch) patch 3-0 8-18 00:00: 00 Yes [id number] 1 patch every 12 hours [facility] lidocaine 5 % (700 mg/patch) patch 3-0 8-18 00:00: 00 Yes [id number] 1 patch every 12 hours [facility] lidocaine 5 % (700 mg/patch) patch 3-0 8-18 00:00: 00 Yes [id number] 1 patch every 12 hours [facility] lidocaine 5 % (700 mg/patch) patch 3-0 8-18 00:00: 00 Yes [id number] 1 patch every 12 hours [facility] lidocaine 5 % (700 mg/patch) patch 3-0 8-18 00:00: 00 Yes [id number] 1 patch every 12 hours [facility] lidocaine 5 % (700 mg/patch) patch 3-0 8-18 00:00: 00 Yes [id number] 1 patch every 12 hours [facility] lidocaine 5 % (700 mg/patch) patch 3-0 8-18 00:00: 00 Yes [id number] 1 patch every 12 hours [facility] lidocaine 5 % (700 mg/patch) patch 2022-0 818 00:00: 00 Yes [id number] 1 patch every 12 hours [facility] lidocaine 5 % (700 mg/patch) patch 3-0 8-18 00:00: 00 Yes [id number] 1 patch every 12 hours [facility] lidocaine 5 % (700 mg/patch) patch 3-0 8-18 00:00: 00 Yes [id number] 1 patch every 12 hours [facility] lidocaine 5 % (700 mg/patch) patch 3-0 8-18 00:00: 00 Yes [id number] 1 patch every 12 hours [facility] lidocaine 5 % (700 mg/patch) patch 3-0 8-18 00:00: 00 Yes [id number] 1 patch every 12 hours [facility] lidocaine 5 % (700 mg/patch) patch 18 00:00: 00 Yes [id number] 1 patch every 12 hours [facility] lidocaine 5 % (700 mg/patch) patch 818 00:00: 00 Yes [id number] 1 patch every 12 hours [facility] lidocaine 5 % (700 mg/patch) patch 818 00:00: 00 Yes [id number] 1 patch every 12 hours [facility] lidocaine 5 % (700 mg/patch) patch 04-01 00:00: 00 Yes [id number] 1 patch every 12 hours [facility] lidocaine 5 % (700 mg/patch) patch 04-01 00:00: 00 08-12 00:00 :00 No [id number] 1 patch every 12 hours [facility] lidocaine 5 % (700 mg/patch) patch 04-01 00:00: 00 08-12 00:00 :00 No [id number] 1 patch every 12 hours [facility] lidocaine 5 % (700 mg/patch) patch 04-01 00:00: 00 04-01 00:00 :00 No [id number] 1 patch every 12 hours [facility] lidocaine 5 % (700 mg/patch) patch 04-01 00:00: 00 04-01 00:00 :00 No [id number] 1 [facility] 30 mg 03-31 21:00: 00 03-31 21:02 :00 No [id number] 30mg [facility] methylPREDN ISolone acetate (DEPO-MEDRO L) 80 mg/mL 80 mg, lidocaine 1% (PF) (XYLOCAINE) 6 mL, bupivacaine (preserv free) 0.5% (SENSORCAIN E MPF) 3 mL 10 mL injection 03-31 21:00: 00 03-31 21:03 :00 No [id number] 80mg [facility] methylPREDN ISolone acetate (DEPO-MEDRO L) 80 mg/mL 80 mg, lidocaine 1% (PF) (XYLOCAINE) 6 mL, bupivacaine (preserv free) 0.5% (SENSORCAIN E MPF) 3 mL 10 mL injection 03-31 21:00: 00 03-31 21:03 :00 No [id number] 80mg Intra-tre cular, ONCE, 1 dose, On Tue03/31/23 at 1600, 10 mL [facility] ketorolac (TORADOL) injection 30 mg 03-31 21:00: 00 03-31 21:02 :00 No [id number] 30mg 30 mg, Intramuscu lar, ONCE, 1 dose, On Tue03/31/23 at 1600, Routine [facility] ketorolac (TORADOL) injection 30 mg 03-31 21:00: 00 03-31 21:02 :00 No [id number] 30mg [facility] methylPREDN ISolone acetate (DEPO-MEDRO L) 80 mg/mL 80 mg, lidocaine 1% (PF) (XYLOCAINE) 6 mL, bupivacaine (preserv free) 0.5% (SENSORCAIN E MPF) 3 mL 10 mL injection 03-31 21:00: 00 03-31 21:03 :00 No [id number] 80mg [facility] methylPREDN ISolone acetate (DEPO-MEDRO L) 80 mg/mL 80 mg, lidocaine 1% (PF) (XYLOCAINE) 6 mL, bupivacaine (preserv free) 0.5% (SENSORCAIN E MPF) 3 mL 10 mL injection 03-31 21:00: 00 03-31 21:03 :00 No [id number] 80mg Intra-tre cular, ONCE, 1 dose, On Tue03/31/23 at 1600, 10 mL [facility] ketorolac (TORADOL) injection 30 mg 03-31 21:00: 00 03-31 21:02 :00 No [id number] 30mg 30 mg, Intramuscu lar, ONCE, 1 dose, On Tue03/31/23 at 1600, Routine [facility] LIDOCAINE 5 % (700 mg/patch) patch 03-31 00:00: 00 Yes [id number] 1 patch every 12 hours [facility] methocarbam oL 500 mg tablet 03-31 00:00: 00 05-31 04:59 :00 No [id number] 500mg Take 1 tablet by mouth in the morning and 1 tablet in the evening. Do all this for 60 days. [facility] methocarbam oL 500 mg tablet 03-31 00:00: 00 05-31 04:59 :00 No [id number] 500mg Take 1 tablet by mouth in the morning and 1 tablet in the evening. Do all this for 60 days. [facility] methocarbam oL 500 mg tablet 03-31 00:00: 00 05-31 04:59 :00 No [id number] 500mg Take 1 tablet by mouth in the morning and 1 tablet in the evening. Do all this for 60 days. [facility] methocarbam oL 500 mg tablet 03-31 00:00: 00 05-31 04:59 :00 No [id number] 500mg Take 1 tablet by mouth in the morning and 1 tablet in the evening. Do all this for 60 days. [facility] methocarbam oL 500 mg tablet 03-31 00:00: 00 05-31 04:59 :00 No [id number] 500mg Take 1 tablet by mouth in the morning and 1 tablet in the evening. Do all this for 60 days. [facility] methocarbam oL 500 mg tablet 03-31 00:00: 00 05-31 04:59 :00 No [id number] 500mg Take 1 tablet by mouth in the morning and 1 tablet in the evening. Do all this for 60 days. [facility] methocarbam oL 500 mg tablet 03-31 00:00: 00 05-31 04:59 :00 No [id number] 500mg Take 1 tablet by mouth in the morning and 1 tablet in the evening. Do all this for 60 days. [facility] methocarbam oL 500 mg tablet 2022-0 03-31 00:00: 00 05-31 04:59 :00 No [id number] 500mg Take 1 tablet by mouth in the morning and 1 tablet in the evening. Do all this for 60 days. [facility] methocarbam oL 500 mg tablet 0 03-31 00:00: 00 05-31 04:59 :00 No [id number] 500mg Take 1 tablet by mouth in the morning and 1 tablet in the evening. Do all this for 60 days. [facility] methocarbam oL 500 mg tablet 0 03-31 00:00: 00 05-31 04:59 :00 No [id number] 500mg Take 1 tablet by mouth in the morning and 1 tablet in the evening. Do all this for 60 days. [facility] methocarbam oL 500 mg tablet 0 03-31 00:00: 00 05-31 04:59 :00 No [id number] 500mg Take 1 tablet by mouth in the morning and 1 tablet in the evening. Do all this for 60 days. [facility] methocarbam oL 500 mg tablet 03-31 00:00: 00 05-31 04:59 :00 No [id number] 500mg Take 1 tablet by mouth in the morning and 1 tablet in the evening. Do all this for 60 days. [facility] methocarbam oL 500 mg tablet 0 03-31 00:00: 00 05-31 04:59 :00 No [id number] 500mg Take 1 tablet by mouth in the morning and 1 tablet in the evening. Do all this for 60 days. [facility] methocarbam oL 500 mg tablet 0 03-31 00:00: 00 05-31 04:59 :00 No [id number] 500mg Take 1 tablet by mouth in the morning and 1 tablet in the evening. Do all this for 60 days. [facility] methocarbam oL 500 mg tablet 2022-0 03-31 00:00: 00 05-31 04:59 :00 No [id number] 500mg Take 1 tablet by mouth in the morning and 1 tablet in the evening. Do all this for 60 days. [facility] methocarbam oL 500 mg tablet 03-31 00:00: 00 05-31 04:59 :00 No [id number] 500mg Take 1 tablet by mouth in the morning and 1 tablet in the evening. Do all this for 60 days. [facility] methocarbam oL 500 mg tablet 0 03-31 00:00: 00 05-31 04:59 :00 No [id number] 500mg Take 1 tablet by mouth in the morning and 1 tablet in the evening. Do all this for 60 days. [facility] methocarbam oL 500 mg tablet 03-31 00:00: 00 05-31 04:59 :00 No [id number] 500mg Take 1 tablet by mouth in the morning and 1 tablet in the evening. Do all this for 60 days. [facility] methocarbam oL 500 mg tablet 03-31 00:00: 00 05-31 04:59 :00 No [id number] 500mg Take 1 tablet by mouth in the morning and 1 tablet in the evening. Do all this for 60 days. [facility] methocarbam oL 500 mg tablet 03-31 00:00: 00 05-31 04:59 :00 No [id number] 500mg Take 1 tablet by mouth in the morning and 1 tablet in the evening. Do all this for 60 days. [facility] methocarbam oL 500 mg tablet 03-31 00:00: 00 05-31 04:59 :00 No [id number] 500mg Take 1 tablet by mouth in the morning and 1 tablet in the evening. Do all this for 60 days. [facility] methocarbam oL 500 mg tablet 0 03-31 00:00: 00 05-31 04:59 :00 No [id number] 500mg Take 1 tablet by mouth in the morning and 1 tablet in the evening. Do all this for 60 days. [facility] methocarbam oL 500 mg tablet 0 817 00:00: 00 05-31 04:59 :00 No [id number] 500mg Take 1 tablet by mouth in the morning and 1 tablet in the evening. Do all this for 60 days. [facility] methocarbam oL 500 mg tablet 0 8 00:00: 00 05-31 04:59 :00 No [id number] 500mg Take 1 tablet by mouth in the morning and 1 tablet in the evening. Do all this for 60 days. [facility] methocarbam oL 500 mg tablet 03-31 00:00: 00 05-31 04:59 :00 No [id number] 500mg Take 1 tablet by mouth in the morning and 1 tablet in the evening. Do all this for 60 days. [facility] methocarbam oL 500 mg tablet 03-31 00:00: 00 05-31 04:59 :00 No [id number] 500mg Take 1 tablet by mouth in the morning and 1 tablet in the evening. Do all this for 60 days. [facility] methocarbam oL 500 mg tablet 03-31 00:00: 00 05-31 04:59 :00 No [id number] 500mg Take 1 tablet by mouth in the morning and 1 tablet in the evening. Do all this for 60 days. [facility] methocarbam oL 500 mg tablet 0 8 00:00: 00 05-31 04:59 :00 No [id number] 500mg Take 1 tablet by mouth in the morning and 1 tablet in the evening. Do all this for 60 days. [facility] methocarbam oL 500 mg tablet 0 817 00:00: 00 05-31 04:59 :00 No [id number] 500mg Take 1 tablet by mouth in the morning and 1 tablet in the evening. Do all this for 60 days. [facility] methocarbam oL 500 mg tablet 0 817 00:00: 00 04-19 00:00 :00 No [id number] 500mg Take 1 tablet by mouth in the morning and 1 tablet in the evening. Do all this for 60 days. [facility] methocarbam oL 500 mg tablet 03-31 00:00: 00 04-19 00:00 :00 No [id number] 500mg Take 1 tablet by mouth in the morning and 1 tablet in the evening. Do all this for 60 days. [facility] methocarbam oL 500 mg tablet 03-31 00:00: 00 04-19 00:00 :00 No [id number] 500mg Take 1 tablet by mouth in the morning and 1 tablet in the evening. Do all this for 60 days. [facility] % (700 mg/patch) patch 03-31 00:00: 00 04-01 00:00 :00 No [id number] 1 patch every 12 hours [facility] % (700 mg/patch) patch 03-31 00:00: 00 04-01 00:00 :00 No [id number] 1 patch every 12 hours [facility] % (700 mg/patch) patch 03-31 00:00: 00 04-01 00:00 :00 No [id number] 1 [facility] % (700 mg/patch) patch 03-31 00:00: 00 04-01 00:00 :00 No [id number] 1 patch every 12 hours [facility] LIDOCAINE 5 % (700 mg/patch) patch 03-31 00:00: 00 04-01 00:00 :00 No [id number] 1 patch every 12 hours [facility] LIDOCAINE 5 % (700 mg/patch) patch 03-31 00:00: 00 04-01 00:00 :00 No [id number] 1 patch every 12 hours [facility] LIDOCAINE 5 % (700 mg/patch) patch 03-31 00:00: 00 04-01 00:00 :00 No [id number] 1 patch every 12 hours [facility] LIDOCAINE 5 % (700 mg/patch) patch 0 8-17 00:00: 00 04-01 00:00 :00 No [id number] 1 patch every 12 hours [facility] LIDOCAINE 5 % (700 mg/patch) patch 2022-0 8-17 00:00: 00 04-01 00:00 :00 No [id number] 1 patch every 12 hours [facility] warfarin 5 mg tablet 2022-0 8-15 00:00: 00 Yes [id number] 5mg Take 1 tablet by mouth every evening. [facility] warfarin 5 mg tablet 2022-0 8-15 00:00: 00 Yes [id number] 5mg Take 1 tablet by mouth every evening. [facility] warfarin 5 mg tablet 2022-0 8-15 00:00: 00 Yes [id number] 5mg Take 1 tablet by mouth every evening. [facility] warfarin 5 mg tablet 2022-0 8-15 00:00: 00 Yes [id number] 5mg Take 1 tablet by mouth every evening. [facility] warfarin 5 mg tablet 2022-0 8-15 00:00: 00 Yes [id number] [id number] 5mg Take 1 tablet by mouth every evening. [facility] warfarin 5 mg tablet 2022-0 8-15 00:00: 00 Yes [id number] 5mg Take 1 tablet by mouth every evening. [facility] warfarin 5 mg tablet 3-0 8-15 00:00: 00 Yes [id number] 5mg Take 1 tablet by mouth every evening. [facility] warfarin 5 mg tablet 3-0 8-15 00:00: 00 Yes [id number] [id number] 5mg Take 1 tablet by mouth every evening. [facility] warfarin 5 mg tablet 3-0 8-15 00:00: 00 Yes [id number] 5mg Take 1 tablet by mouth every evening. [facility] warfarin 5 mg tablet 3-0 8-15 00:00: 00 Yes [id number] 5mg Take 1 tablet by mouth every evening. [facility] warfarin 5 mg tablet 3-0 8-15 00:00: 00 Yes [id number] [id number] 5mg Take 1 tablet by mouth every evening. [facility] warfarin 5 mg tablet 2022-0 8-15 00:00: 00 Yes [id number] 5mg Take 1 tablet by mouth every evening. [facility] warfarin 5 mg tablet 2022-0 8-15 00:00: 00 Yes [id number] 5mg Take 1 tablet by mouth every evening. [facility] warfarin 5 mg tablet 2022-0 8-15 00:00: 00 Yes [id number] [id number] 5mg Take 1 tablet by mouth every evening. [facility] warfarin 5 mg tablet 2022-0 8-15 00:00: 00 Yes [id number] 5mg Take 1 tablet by mouth every evening. [facility] warfarin 5 mg tablet 2022-0 8-15 00:00: 00 Yes [id number] 5mg Take 1 tablet by mouth every evening. [facility] warfarin 5 mg tablet 2022-0 8-15 00:00: 00 Yes [id number] 5mg Take 1 tablet by mouth every evening. [facility] warfarin 5 mg tablet 2022-0 8-15 00:00: 00 Yes [id number] 5mg Take 1 tablet by mouth every evening. [facility] warfarin 5 mg tablet 2022-0 8-15 00:00: 00 25 00:00 :00 No [id number] 5mg Take 1 tablet by mouth every evening. [facility] diazePAM (VALIUM) 5 mg tablet 3-0 8-11 00:00: 00 Yes [id number] 5mg Take 1 tablet by mouth 2 (two) times daily as needed for Muscle Spasms. [facility] diazePAM (VALIUM) 5 mg tablet 3-0 8-11 00:00: 00 Yes [id number] 5mg Take 1 tablet by mouth 2 (two) times daily as needed for Muscle Spasms. [facility] diazePAM (VALIUM) 5 mg tablet 2023-0 8-11 00:00: 00 Yes [id number] 5mg Take 1 tablet by mouth 2 (two) times daily as needed for Muscle Spasms. [facility] diazePAM (VALIUM) 5 mg tablet 3-0 8-11 00:00: 00 Yes [id number] 5mg Take 1 tablet by mouth 2 (two) times daily as needed for Muscle Spasms. [facility] (VALIUM) 5 mg tablet 3-0 8-11 00:00: 00 Yes [id number] 5mg Take 1 tablet by mouth 2 (two) times daily as needed for Muscle Spasms. [facility] diazePAM (VALIUM) 5 mg tablet 3-0 8-11 00:00: 00 Yes [id number] 5mg Take 1 tablet by mouth 2 (two) times daily as needed for Muscle Spasms. [facility] diazePAM (VALIUM) 5 mg tablet 3-0 8-11 00:00: 00 Yes [id number] 5mg Take 1 tablet by mouth 2 (two) times daily as needed for Muscle Spasms. [facility] diazePAM (VALIUM) 5 mg tablet 3-0 8-11 00:00: 00 Yes [id number] 5mg Take 1 tablet by mouth 2 (two) times daily as needed for Muscle Spasms. [facility] diazePAM (VALIUM) 5 mg tablet 3-0 8-11 00:00: 00 Yes [id number] 5mg Take 1 tablet by mouth 2 (two) times daily as needed for Muscle Spasms. [facility] diazePAM (VALIUM) 5 mg tablet 3-0 8-11 00:00: 00 Yes [id number] 5mg Take 1 tablet by mouth 2 (two) times daily as needed for Muscle Spasms. [facility] diazePAM (VALIUM) 5 mg tablet 3-0 8-11 00:00: 00 Yes [id number] 5mg Take 1 tablet by mouth 2 (two) times daily as needed for Muscle Spasms. [facility] diazePAM (VALIUM) 5 mg tablet 3-0 8-11 00:00: 00 Yes [id number] 5mg Take 1 tablet by mouth 2 (two) times daily as needed for Muscle Spasms. [facility] diazePAM (VALIUM) 5 mg tablet 3-0 8-11 00:00: 00 Yes [id number] 5mg Take 1 tablet by mouth 2 (two) times daily as needed for Muscle Spasms. [facility] diazePAM (VALIUM) 5 mg tablet 3-0 8-11 00:00: 00 Yes [id number] 5mg Take 1 tablet by mouth 2 (two) times daily as needed for Muscle Spasms. [facility] diazePAM (VALIUM) 5 mg tablet 3-0 8-11 00:00: 00 Yes [id number] 5mg Take 1 tablet by mouth 2 (two) times daily as needed for Muscle Spasms. [facility] diazePAM (VALIUM) 5 mg tablet 3-0 8-11 00:00: 00 Yes [id number] 5mg Take 1 tablet by mouth 2 (two) times daily as needed for Muscle Spasms. [facility] diazePAM (VALIUM) 5 mg tablet 3-0 8-11 00:00: 00 Yes [id number] 5mg Take 1 tablet by mouth 2 (two) times daily as needed for Muscle Spasms. [facility] diazePAM (VALIUM) 5 mg tablet 3-0 8-11 00:00: 00 Yes [id number] 5mg Take 1 tablet by mouth 2 (two) times daily as needed for Muscle Spasms. [facility] diazePAM (VALIUM) 5 mg tablet 3-0 8-11 00:00: 00 Yes [id number] 5mg Take 1 tablet by mouth 2 (two) times daily as needed for Muscle Spasms. [facility] diazePAM (VALIUM) 5 mg tablet 3-0 8-11 00:00: 00 Yes [id number] 5mg Take 1 tablet by mouth 2 (two) times daily as needed for Muscle Spasms. [facility] diazePAM (VALIUM) 5 mg tablet 3-0 8-11 00:00: 00 Yes [id number] 5mg Take 1 tablet by mouth 2 (two) times daily as needed for Muscle Spasms. [facility] diazePAM (VALIUM) 5 mg tablet 3-0 8-11 00:00: 00 Yes [id number] 5mg Take 1 tablet by mouth 2 (two) times daily as needed for Muscle Spasms. [facility] diazePAM (VALIUM) 5 mg tablet 3-0 8-11 00:00: 00 Yes [id number] 5mg Take 1 tablet by mouth 2 (two) times daily as needed for Muscle Spasms. [facility] diazePAM (VALIUM) 5 mg tablet 3-0 8-11 00:00: 00 Yes [id number] 5mg Take 1 tablet by mouth 2 (two) times daily as needed for Muscle Spasms. [facility] diazePAM (VALIUM) 5 mg tablet 2022-0 8-11 00:00: 00 Yes [id number] 5mg Take 1 tablet by mouth 2 (two) times daily as needed for Muscle Spasms. [facility] diazePAM (VALIUM) 5 mg tablet 2022-0 8-11 00:00: 00 04-15 00:00 :00 No [id number] 5mg Take 1 tablet by mouth 2 (two) times daily as needed for Muscle Spasms. [facility] diazePAM (VALIUM) 5 mg tablet 2022-0 8-11 00:00: 00 04-15 00:00 :00 No [id number] 5mg Take 1 tablet by mouth 2 (two) times daily as needed for Muscle Spasms. [facility] diazePAM (VALIUM) 5 mg tablet 2022-0 8-11 00:00: 00 04-15 00:00 :00 No [id number] 5mg Take 1 tablet by mouth 2 (two) times daily as needed for Muscle Spasms. [facility] diazePAM (VALIUM) 5 mg tablet 2022-0 8-11 00:00: 00 04-15 00:00 :00 No [id number] 5mg Take 1 tablet by mouth 2 (two) times daily as needed for Muscle Spasms. [facility] diazePAM (VALIUM) 5 mg tablet 2022-0 8-11 00:00: 00 04-15 00:00 :00 No [id number] 5mg Take 1 tablet by mouth 2 (two) times daily as needed for Muscle Spasms. [facility] diazePAM (VALIUM) 5 mg tablet 03-25 00:00: 00 04-15 00:00 :00 No [id number] 5mg Take 1 tablet by mouth 2 (two) times daily as needed for Muscle Spasms. [facility] FENTanyl PF (SUBLIMAZE (PF)) injection 50 mcg 03-24 18:15: 00 03-24 17:28 :00 No 50ug 50 mcg, Intramuscu lar, ONCE, 1 dose, On [facility] 03/24/23 at 1315, Routine [facility] diazePAM (VALIUM) tablet 5 mg 03-24 17:30: 00 03-24 17:27 :00 No 5mg 5 mg, Oral, ONCE, 1 dose, On [facility] 03/24/23 at 1230, KRISTOPHER [facility] diazePAM (VALIUM) 5 mg tablet 03-24 00:00: 00 Yes [id number] 5mg Take 1 tablet by mouth 3 (three) times daily as needed for Muscle Spasms. [facility] diazePAM (VALIUM) 5 mg tablet 03-24 00:00: 00 03-25 00:00 :00 No [id number] 5mg Take 1 tablet by mouth 3 (three) times daily as needed for Muscle Spasms. [facility] warfarin 5 mg tablet 03-23 15:06: 05 03-23 00:00 :00 No 5mg Take 1 tablet by mouth. [facility] warfarin 5 mg tablet 03-23 15:06: 05 03-23 00:00 :00 No 5mg Take 1 tablet by mouth. [facility] warfarin 5 mg tablet 03-23 15:06: 05 03-23 00:00 :00 No 5mg Take 1 tablet by mouth. [facility] warfarin 5 mg tablet 03-23 15:06: 05 03-23 00:00 :00 No 5mg Take 1 tablet by mouth. [facility] warfarin 5 mg tablet 03-23 00:00: 00 Yes [id number] 5mg Take 1 tablet by mouth every evening. [facility] warfarin 5 mg tablet 2022-0 03-23 00:00: 00 Yes [id number] [id number] 5mg Take 1 tablet by mouth every evening. [facility] warfarin 5 mg tablet 2022-0 03-23 00:00: 00 Yes [id number] [id number] 5mg Take 1 tablet by mouth every evening. [facility] warfarin 5 mg tablet 2022-0 03-23 00:00: 00 Yes [id number] [id number] 5mg Take 1 tablet by mouth every evening. [facility] warfarin 5 mg tablet 2022-0 03-23 00:00: 00 Yes [id number] [id number] 5mg Take 1 tablet by mouth every evening. [facility] warfarin 5 mg tablet 2022-0 03-23 00:00: 00 Yes [id number] 9109 5mg Take 1 tablet by mouth every evening. [facility] warfarin 5 mg tablet 2022-0 03-23 00:00: 00 Yes [id number] 9109 5mg Take 1 tablet by mouth every evening. [facility] warfarin 5 mg tablet 2022-0 03-23 00:00: 00 Yes [id number] 9109 5mg Take 1 tablet by mouth every evening. [facility] warfarin 5 mg tablet 2022-0 03-23 00:00: 00 Yes [id number] 9109 5mg Take 1 tablet by mouth every evening. [facility] warfarin 5 mg tablet 2022-0 03-23 00:00: 00 03-29 00:00 :00 No [id number] 9109 5mg Take 1 tablet by mouth every evening. [facility] carvediloL (COREG) 25 mg tablet 2022-0 03-22 11:38: 34 Yes 25mg Take 1 tablet by mouth in the morning and 1 tablet in the evening. Take with meals. [facility] carvediloL (COREG) 25 mg tablet 3-0 03-22 11:38: 34 Yes 25mg Take 1 tablet by mouth in the morning and 1 tablet in the evening. Take with meals. [facility] carvediloL (COREG) 25 mg tablet 3-0 8-08 11:38: 34 Yes 25mg Take 1 tablet by mouth in the morning and 1 tablet in the evening. Take with meals. [facility] carvediloL (COREG) 25 mg tablet 2023-0 8-08 11:38: 34 Yes 25mg Take 1 tablet by mouth in the morning and 1 tablet in the evening. Take with meals. [facility] carvediloL (COREG) 25 mg tablet 3-0 8-08 11:38: 34 Yes 25mg Take 1 tablet by mouth in the morning and 1 tablet in the evening. Take with meals. [facility] carvediloL (COREG) 25 mg tablet 3-0 8-08 11:38: 34 Yes 25mg Take 1 tablet by mouth in the morning and 1 tablet in the evening. Take with meals. [facility] carvediloL (COREG) 25 mg tablet 3-0 8-08 11:38: 34 Yes 25mg Take 1 tablet by mouth in the morning and 1 tablet in the evening. Take with meals. [facility] carvediloL (COREG) 25 mg tablet 3-0 8-08 11:38: 34 Yes 25mg Take 1 tablet by mouth in the morning and 1 tablet in the evening. Take with meals. [facility] carvediloL (COREG) 25 mg tablet 3-0 8-08 11:38: 34 Yes 25mg Take 1 tablet by mouth in the morning and 1 tablet in the evening. Take with meals. [facility] carvediloL (COREG) 25 mg tablet 3-0 8-08 11:38: 34 Yes 25mg Take 1 tablet by mouth in the morning and 1 tablet in the evening. Take with meals. [facility] carvediloL (COREG) 25 mg tablet 3-0 8-08 11:38: 34 Yes 25mg Take 1 tablet by mouth in the morning and 1 tablet in the evening. Take with meals. [facility] carvediloL (COREG) 25 mg tablet 2023-0 8-08 11:38: 34 Yes 25mg Take 1 tablet by mouth in the morning and 1 tablet in the evening. Take with meals. [facility] carvediloL (COREG) 25 mg tablet 2023-0 8-08 11:38: 34 Yes 25mg Take 1 tablet by mouth in the morning and 1 tablet in the evening. Take with meals. [facility] carvediloL (COREG) 25 mg tablet 2023-0 8-08 11:38: 34 Yes 25mg Take 1 tablet by mouth in the morning and 1 tablet in the evening. Take with meals. [facility] carvediloL (COREG) 25 mg tablet 2023-0 8-08 11:38: 34 Yes 25mg Take 1 tablet by mouth in the morning and 1 tablet in the evening. Take with meals. [facility] carvediloL (COREG) 25 mg tablet 3-0 8-08 11:38: 34 Yes 25mg Take 1 tablet by mouth in the morning and 1 tablet in the evening. Take with meals. [facility] carvediloL (COREG) 25 mg tablet 2023-0 8-08 11:38: 34 Yes 25mg Take 1 tablet by mouth in the morning and 1 tablet in the evening. Take with meals. [facility] carvediloL (COREG) 25 mg tablet 3-0 8-08 11:38: 34 Yes 25mg Take 1 tablet by mouth in the morning and 1 tablet in the evening. Take with meals. [facility] carvediloL (COREG) 25 mg tablet 2023-0 8-08 11:38: 34 Yes 25mg Take 1 tablet by mouth in the morning and 1 tablet in the evening. Take with meals. [facility] carvediloL (COREG) 25 mg tablet 2023-0 8-08 11:38: 34 Yes 25mg Take 1 tablet by mouth in the morning and 1 tablet in the evening. Take with meals. [facility] carvediloL (COREG) 25 mg tablet 2023-0 8-08 11:38: 34 Yes 25mg Take 1 tablet by mouth in the morning and 1 tablet in the evening. Take with meals. [facility] carvediloL (COREG) 25 mg tablet 2023-0 8-08 11:38: 34 Yes 25mg Take 1 tablet by mouth in the morning and 1 tablet in the evening. Take with meals. [facility] carvediloL (COREG) 25 mg tablet 3-0 8-08 11:38: 34 Yes 25mg Take 1 tablet by mouth in the morning and 1 tablet in the evening. Take with meals. [facility] carvediloL (COREG) 25 mg tablet 3-0 8-08 11:38: 34 Yes 25mg Take 1 tablet by mouth in the morning and 1 tablet in the evening. Take with meals. [facility] carvediloL (COREG) 25 mg tablet 3-0 8-08 11:38: 34 Yes 25mg Take 1 tablet by mouth in the morning and 1 tablet in the evening. Take with meals. [facility] carvediloL (COREG) 25 mg tablet 3-0 8-08 11:38: 34 Yes 25mg Take 1 tablet by mouth in the morning and 1 tablet in the evening. Take with meals. [facility] carvediloL (COREG) 25 mg tablet 3-0 8-08 11:38: 34 Yes 25mg Take 1 tablet by mouth in the morning and 1 tablet in the evening. Take with meals. [facility] carvediloL (COREG) 25 mg tablet 3-0 8-08 11:38: 34 Yes 25mg Take 1 tablet by mouth in the morning and 1 tablet in the evening. Take with meals. [facility] carvediloL (COREG) 25 mg tablet 3-0 8-08 11:38: 34 Yes 25mg Take 1 tablet by mouth in the morning and 1 tablet in the evening. Take with meals. [facility] carvediloL (COREG) 25 mg tablet 3-0 8-08 11:38: 34 Yes 25mg Take 1 tablet by mouth in the morning and 1 tablet in the evening. Take with meals. [facility] carvediloL (COREG) 25 mg tablet 3-0 8-08 11:38: 34 Yes 25mg Take 1 tablet by mouth in the morning and 1 tablet in the evening. Take with meals. [facility] carvediloL (COREG) 25 mg tablet 3-0 8-08 11:38: 34 Yes 25mg Take 1 tablet by mouth in the morning and 1 tablet in the evening. Take with meals. [facility] acetaminoph en-codeine (TYLENOL-CO DEINE #3) 300-30 mg tablet 03-22 00:00: 00 Yes 2745 1{tbl} Take 1 tablet by mouth every 6 (six) hours as needed for Pain (scale 4-6). Indication s: chronic pain [facility] methocarbam oL 500 mg tablet 03-22 00:00: 00 Yes [id number] 500mg Take 1 tablet by mouth 3 (three) times daily as needed for Pain (scale 7-10). [facility] acetaminoph en-codeine (TYLENOL-CO DEINE #3) 300-30 mg tablet 03-22 00:00: 00 Yes [id number] 1{tbl} Take 1 tablet by mouth every 6 (six) hours as needed for Pain (scale 4-6). Indication s: chronic pain [facility] methocarbam oL 500 mg tablet 03-22 00:00: 00 Yes [id number] 500mg Take 1 tablet by mouth 3 (three) times daily as needed for Pain (scale 7-10). [facility] acetaminoph en-codeine (TYLENOL-CO DEINE #3) 300-30 mg tablet 03-22 00:00: 00 Yes [id number] 1{tbl} Take 1 tablet by mouth every 6 (six) hours as needed for Pain (scale 4-6). Indication s: chronic pain [facility] methocarbam oL 500 mg tablet 03-22 00:00: 00 Yes [id number] 500mg Take 1 tablet by mouth 3 (three) times daily as needed for Pain (scale 7-10). [facility] acetaminoph en-codeine (TYLENOL-CO DEINE #3) 300-30 mg tablet 03-22 00:00: 00 Yes [id number] 1{tbl} Take 1 tablet by mouth every 6 (six) hours as needed for Pain (scale 4-6). Indication s: chronic pain [facility] methocarbam oL 500 mg tablet 2022-0 8-08 00:00: 00 Yes [id number] 500mg Take 1 tablet by mouth 3 (three) times daily as needed for Pain (scale 7-10). [facility] acetaminoph en-codeine (TYLENOL-CO DEINE #3) 300-30 mg tablet 2022-0 8-08 00:00: 00 Yes [id number] 1{tbl} Take 1 tablet by mouth every 6 (six) hours as needed for Pain (scale 4-6). Indication s: chronic pain [facility] methocarbam oL 500 mg tablet 2022-0 8-08 00:00: 00 Yes [id number] 500mg Take 1 tablet by mouth 3 (three) times daily as needed for Pain (scale 7-10). [facility] acetaminoph en-codeine (TYLENOL-CO DEINE #3) 300-30 mg tablet 2022-0 8-08 00:00: 00 Yes [id number] 1{tbl} Take 1 tablet by mouth every 6 (six) hours as needed for Pain (scale 4-6). Indication s: chronic pain [facility] methocarbam oL 500 mg tablet 2022-0 8-08 00:00: 00 Yes [id number] 500mg Take 1 tablet by mouth 3 (three) times daily as needed for Pain (scale 7-10). [facility] acetaminoph en-codeine (TYLENOL-CO DEINE #3) 300-30 mg tablet 2022-0 8-08 00:00: 00 Yes [id number] 1{tbl} Take 1 tablet by mouth every 6 (six) hours as needed for Pain (scale 4-6). Indication s: chronic pain [facility] methocarbam oL 500 mg tablet 2022-0 8-08 00:00: 00 Yes [id number] 500mg Take 1 tablet by mouth 3 (three) times daily as needed for Pain (scale 7-10). [facility] acetaminoph en-codeine (TYLENOL-CO DEINE #3) 300-30 mg tablet 2022-0 8-08 00:00: 00 Yes 2745 1{tbl} Take 1 tablet by mouth every 6 (six) hours as needed for Pain (scale 4-6). Indication s: chronic pain [facility] methocarbam oL 500 mg tablet 03-22 00:00: 00 Yes [id number] 500mg Take 1 tablet by mouth 3 (three) times daily as needed for Pain (scale 7-10). [facility] acetaminoph en-codeine (TYLENOL-CO DEINE #3) 300-30 mg tablet 03-22 00:00: 00 Yes [id number] 1{tbl} Take 1 tablet by mouth every 6 (six) hours as needed for Pain (scale 4-6). Indication s: chronic pain [facility] methocarbam oL 500 mg tablet 03-22 00:00: 00 Yes [id number] 500mg Take 1 tablet by mouth 3 (three) times daily as needed for Pain (scale 7-10). [facility] acetaminoph en-codeine (TYLENOL-CO DEINE #3) 300-30 mg tablet 03-22 00:00: 00 Yes [id number] 1{tbl} Take 1 tablet by mouth every 6 (six) hours as needed for Pain (scale 4-6). Indication s: chronic pain [facility] methocarbam oL 500 mg tablet 03-22 00:00: 00 Yes [id number] 500mg Take 1 tablet by mouth 3 (three) times daily as needed for Pain (scale 7-10). [facility] acetaminoph en-codeine (TYLENOL-CO DEINE #3) 300-30 mg tablet 03-22 00:00: 00 Yes [id number] 1{tbl} Take 1 tablet by mouth every 6 (six) hours as needed for Pain (scale 4-6). Indication s: chronic pain [facility] methocarbam oL 500 mg tablet 03-22 00:00: 00 Yes [id number] 500mg Take 1 tablet by mouth 3 (three) times daily as needed for Pain (scale 7-10). [facility] acetaminoph en-codeine (TYLENOL-CO DEINE #3) 300-30 mg tablet 2023-0 8-08 00:00: 00 Yes 2745 1{tbl} Take 1 tablet by mouth every 6 (six) hours as needed for Pain (scale 4-6). Indication s: chronic pain [facility] acetaminoph en-codeine (TYLENOL-CO DEINE #3) 300-30 mg tablet 3-0 8-08 00:00: 00 Yes 2745 1{tbl} Take 1 tablet by mouth every 6 (six) hours as needed for Pain (scale 4-6). Indication s: chronic pain [facility] predniSONE 10 mg tablet 2022-0 8-08 00:00: 00 03-28 04:59 :00 No [id number] 10mg Take 1 tablet by mouth in the morning for 5 days. [facility] predniSONE 10 mg tablet 2022-0 8-08 00:00: 00 03-28 04:59 :00 No [id number] 10mg Take 1 tablet by mouth in the morning for 5 days. [facility] predniSONE 10 mg tablet 2022-0 8-08 00:00: 00 03-28 04:59 :00 No [id number] 10mg Take 1 tablet by mouth in the morning for 5 days. [facility] predniSONE 10 mg tablet 2022-0 8-08 00:00: 00 03-28 04:59 :00 No [id number] 10mg Take 1 tablet by mouth in the morning for 5 days. [facility] predniSONE 10 mg tablet 3-0 8-08 00:00: 00 03-28 04:59 :00 No [id number] 10mg Take 1 tablet by mouth in the morning for 5 days. [facility] predniSONE 10 mg tablet 3-0 8-08 00:00: 00 03-28 04:59 :00 No [id number] 10mg Take 1 tablet by mouth in the morning for 5 days. [facility] predniSONE 10 mg tablet 3-0 8-08 00:00: 00 03-28 04:59 :00 No [id number] 10mg Take 1 tablet by mouth in the morning for 5 days. [facility] predniSONE 10 mg tablet 03-22 00:00: 00 03-28 04:59 :00 No [id number] 10mg Take 1 tablet by mouth in the morning for 5 days. [facility] predniSONE 10 mg tablet 03-22 00:00: 00 03-28 04:59 :00 No [id number] 10mg Take 1 tablet by mouth in the morning for 5 days. [facility] predniSONE 10 mg tablet 03-22 00:00: 00 03-28 04:59 :00 No [id number] 10mg Take 1 tablet by mouth in the morning for 5 days. [facility] predniSONE 10 mg tablet 03-22 00:00: 00 03-28 04:59 :00 No [id number] 10mg Take 1 tablet by mouth in the morning for 5 days. [facility] predniSONE 10 mg tablet 03-22 00:00: 03-28 04:59 :00 No [id number] 10mg Take 1 tablet by mouth in the morning for 5 days. [facility] predniSONE 10 mg tablet 03-22 00:00: 00 03-28 04:59 :00 No [id number] 10mg Take 1 tablet by mouth in the morning for 5 days. [facility] acetaminoph en-codeine (TYLENOL-CO DEINE #3) 300-30 mg tablet 03-22 00:00: 00 03-28 00:00 :00 No [id number] 1{tbl} Take 1 tablet by mouth every 6 (six) hours as needed for Pain (scale 4-6). Indication s: chronic pain [facility] methocarbam oL 500 mg tablet 03-22 00:00: 00 03-25 00:00 :00 No [id number] 500mg Take 1 tablet by mouth 3 (three) times daily as needed for Pain (scale 7-10). [facility] ondansetron (ZOFRAN (PF)) injection 4 mg 03-18 15:30: 00 03-18 15:23 :00 No 4mg 4 mg, Slow IV Push, ONCE, 1 dose, On Tue03/18/23 at 1030, KRISTOPHER [facility] morpHINE (2 mg/mL) injection 2 mg 03-18 15:30: 00 03-18 15:23 :00 No 2mg 2 mg, Slow IV Push, ONCE, 1 dose, On Tue03/18/23 at 1030, STAT [facility] NaCl 0.9% (NS) bolus infusion 500 mL 03-18 14:30: 00 03-18 17:26 :00 No 500mL at 999 mL/hr, 500 mL, IV Infusion, ONCE, 1 dose, On Tue03/18/23 at 0930, STAT [facility] methocarbam oL 500 mg tablet 03-18 00:00: 00 Yes [id number] 500mg Take 1 tablet by mouth 3 (three) times daily as needed for Pain (scale 7-10). [facility] methocarbam oL 500 mg tablet 03-18 00:00: 00 Yes [id number] 500mg Take 1 tablet by mouth 3 (three) times daily as needed for Pain (scale 7-10). [facility] methocarbam oL 500 mg tablet 03-18 00:00: 00 Yes [id number] 500mg Take 1 tablet by mouth 3 (three) times daily as needed for Pain (scale 7-10). [facility] methocarbam oL 500 mg tablet 03-18 00:00: 00 Yes [id number] 500mg Take 1 tablet by mouth 3 (three) times daily as needed for Pain (scale 7-10). [facility] methocarbam oL 500 mg tablet 03-18 00:00: 00 Yes [id number] 500mg Take 1 tablet by mouth 3 (three) times daily as needed for Pain (scale 7-10). [facility] cefdinir 300 mg capsule 03-18 00:00: 00 03-29 04:59 :00 No [id number] 300mg Take 1 capsule by mouth in the morning for 10 days. [facility] cefdinir 300 mg capsule 2023-0 8-04 00:00: 00 03-29 04:59 :00 No [id number] 300mg Take 1 capsule by mouth in the morning for 10 days. [facility] cefdinir 300 mg capsule 2023-0 8-04 00:00: 00 03-29 04:59 :00 No [id number] 300mg Take 1 capsule by mouth in the morning for 10 days. [facility] cefdinir 300 mg capsule 2023-0 8-04 00:00: 00 03-29 04:59 :00 No [id number] 300mg Take 1 capsule by mouth in the morning for 10 days. [facility] cefdinir 300 mg capsule 3-0 8-04 00:00: 00 03-29 04:59 :00 No [id number] 300mg Take 1 capsule by mouth in the morning for 10 days. [facility] cefdinir 300 mg capsule 3-0 8-04 00:00: 00 03-29 04:59 :00 No [id number] 300mg Take 1 capsule by mouth in the morning for 10 days. [facility] cefdinir 300 mg capsule 3-0 8-04 00:00: 00 03-29 04:59 :00 No [id number] 300mg Take 1 capsule by mouth in the morning for 10 days. [facility] cefdinir 300 mg capsule 3-0 8-04 00:00: 00 03-29 04:59 :00 No [id number] 300mg Take 1 capsule by mouth in the morning for 10 days. [facility] cefdinir 300 mg capsule 3-0 8-04 00:00: 00 03-29 04:59 :00 No [id number] 300mg Take 1 capsule by mouth in the morning for 10 days. [facility] cefdinir 300 mg capsule 2023-0 8-04 00:00: 00 03-29 04:59 :00 No [id number] 300mg Take 1 capsule by mouth in the morning for 10 days. [facility] cefdinir 300 mg capsule 3-0 8-04 00:00: 00 03-29 04:59 :00 No [id number] 300mg Take 1 capsule by mouth in the morning for 10 days. [facility] cefdinir 300 mg capsule 2023-0 8-04 00:00: 00 03-29 04:59 :00 No [id number] 300mg Take 1 capsule by mouth in the morning for 10 days. [facility] cefdinir 300 mg capsule 3-0 8-04 00:00: 00 03-29 04:59 :00 No [id number] 300mg Take 1 capsule by mouth in the morning for 10 days. [facility] cefdinir 300 mg capsule 3-0 8-04 00:00: 00 03-29 04:59 :00 No [id number] 300mg Take 1 capsule by mouth in the morning for 10 days. [facility] cefdinir 300 mg capsule 3-0 8-04 00:00: 00 03-29 04:59 :00 No [id number] 300mg Take 1 capsule by mouth in the morning for 10 days. [facility] cefdinir 300 mg capsule 3-0 8-04 00:00: 00 03-29 04:59 :00 No [id number] 300mg Take 1 capsule by mouth in the morning for 10 days. [facility] cefdinir 300 mg capsule 3-0 8-04 00:00: 00 03-29 04:59 :00 No [id number] 300mg Take 1 capsule by mouth in the morning for 10 days. [facility] cefdinir 300 mg capsule 3-0 8-04 00:00: 00 03-29 04:59 :00 No [id number] 300mg Take 1 capsule by mouth in the morning for 10 days. [facility] cefdinir 300 mg capsule 2023-0 8-04 00:00: 00 03-29 04:59 :00 No [id number] 300mg Take 1 capsule by mouth in the morning for 10 days. [facility] cefdinir 300 mg capsule 03-18 00:00: 00 03-29 04:59 :00 No [id number] 300mg Take 1 capsule by mouth in the morning for 10 days. [facility] methocarbam oL 500 mg tablet 03-18 00:00: 00 03-22 00:00 :00 No [id number] 500mg Take 1 tablet by mouth 3 (three) times daily as needed for Pain (scale 7-10). [facility] methocarbam oL 500 mg tablet 03-18 00:00: 00 03-22 00:00 :00 No [id number] 500mg Take 1 tablet by mouth 3 (three) times daily as needed for Pain (scale 7-10). [facility] warfarin 5 mg tablet 2022-0 03-17 13:58: 52 Yes 5mg Take 1 tablet by mouth. [facility] warfarin 5 mg tablet 2022-0 03-17 13:58: 52 Yes 5mg Take 1 tablet by mouth. [facility] warfarin 5 mg tablet 2022-0 03-17 13:58: 52 Yes 5mg Take 1 tablet by mouth. [facility] warfarin 5 mg tablet 2022-0 03-17 13:58: 52 Yes 5mg Take 1 tablet by mouth. [facility] warfarin 5 mg tablet 2022-0 03-17 13:58: 52 Yes 5mg Take 1 tablet by mouth. [facility] warfarin 5 mg tablet 2022-0 8 13:58: 52 Yes 5mg Take 1 tablet by mouth. [facility] warfarin 5 mg tablet 3-0 8- 13:58: 52 Yes 5mg Take 1 tablet by mouth. [facility] warfarin 5 mg tablet 3-0 8 13:58: 52 Yes 5mg Take 1 tablet by mouth. [facility] warfarin 5 mg tablet 3-0 8- 13:58: 52 Yes 5mg Take 1 tablet by mouth. [facility] warfarin 5 mg tablet 3-0 8- 13:58: 52 Yes 5mg Take 1 tablet by mouth. [facility] warfarin 5 mg tablet 03-17 13:58: 52 Yes 5mg Take 1 tablet by mouth. [facility] warfarin 5 mg tablet 03-17 13:58: 52 Yes 5mg Take 1 tablet by mouth. [facility] warfarin 5 mg tablet 03-17 13:58: 52 Yes 5mg Take 1 tablet by mouth. [facility] warfarin 5 mg tablet 03-17 13:58: 52 Yes 5mg Take 1 tablet by mouth. [facility] acetaminoph en-codeine (TYLENOL-CO DEINE #3) 300-30 mg tablet 03-15 00:00: 00 03-23 04:59 :00 No [id number] 1{tbl} Take 1 tablet by mouth every 6 (six) hours as needed for Pain (scale 4-6) for up to 7 days. Indication s: chronic pain [facility] acetaminoph en-codeine (TYLENOL-CO DEINE #3) 300-30 mg tablet 03-15 00:00: 00 03-23 04:59 :00 No 2745 1{tbl} Take 1 tablet by mouth every 6 (six) hours as needed for Pain (scale 4-6) for up to 7 days. Indication s: chronic pain [facility] acetaminoph en-codeine (TYLENOL-CO DEINE #3) 300-30 mg tablet 03-15 00:00: 00 03-23 04:59 :00 No 2745 1{tbl} Take 1 tablet by mouth every 6 (six) hours as needed for Pain (scale 4-6) for up to 7 days. Indication s: chronic pain [facility] acetaminoph en-codeine (TYLENOL-CO DEINE #3) 300-30 mg tablet 03-15 00:00: 00 03-23 04:59 :00 No 2745 1{tbl} Take 1 tablet by mouth every 6 (six) hours as needed for Pain (scale 4-6) for up to 7 days. Indication s: chronic pain [facility] acetaminoph en-codeine (TYLENOL-CO DEINE #3) 300-30 mg tablet 8- 00:00: 00 03-23 04:59 :00 No 2745 1{tbl} Take 1 tablet by mouth every 6 (six) hours as needed for Pain (scale 4-6) for up to 7 days. Indication s: chronic pain [facility] acetaminoph en-codeine (TYLENOL-CO DEINE #3) 300-30 mg tablet 8- 00:00: 00 03-23 04:59 :00 No 2745 1{tbl} Take 1 tablet by mouth every 6 (six) hours as needed for Pain (scale 4-6) for up to 7 days. Indication s: chronic pain [facility] acetaminoph en-codeine (TYLENOL-CO DEINE #3) 300-30 mg tablet 8 00:00: 00 03-23 04:59 :00 No 2745 1{tbl} Take 1 tablet by mouth every 6 (six) hours as needed for Pain (scale 4-6) for up to 7 days. Indication s: chronic pain [facility] acetaminoph en-codeine (TYLENOL-CO DEINE #3) 300-30 mg tablet 8 00:00: 00 03-23 04:59 :00 No 2745 1{tbl} Take 1 tablet by mouth every 6 (six) hours as needed for Pain (scale 4-6) for up to 7 days. Indication s: chronic pain [facility] acetaminoph en-codeine (TYLENOL-CO DEINE #3) 300-30 mg tablet 8- 00:00: 00 03-23 04:59 :00 No 2745 1{tbl} Take 1 tablet by mouth every 6 (six) hours as needed for Pain (scale 4-6) for up to 7 days. Indication s: chronic pain [facility] acetaminoph en-codeine (TYLENOL-CO DEINE #3) 300-30 mg tablet 8- 00:00: 03-23 04:59 :00 No 2745 1{tbl} Take 1 tablet by mouth every 6 (six) hours as needed for Pain (scale 4-6) for up to 7 days. Indication s: chronic pain [facility] acetaminoph en-codeine (TYLENOL-CO DEINE #3) 300-30 mg tablet 8- 00:00: 00 03-23 04:59 :00 No 2745 1{tbl} Take 1 tablet by mouth every 6 (six) hours as needed for Pain (scale 4-6) for up to 7 days. Indication s: chronic pain [facility] acetaminoph en-codeine (TYLENOL-CO DEINE #3) 300-30 mg tablet 03-15 00:00: 00 03-23 04:59 :00 No 2745 1{tbl} Take 1 tablet by mouth every 6 (six) hours as needed for Pain (scale 4-6) for up to 7 days. Indication s: chronic pain [facility] acetaminoph en-codeine (TYLENOL-CO DEINE #3) 300-30 mg tablet 03-15 00:00: 00 03-22 00:00 :00 No 2745 1{tbl} Take 1 tablet by mouth every 6 (six) hours as needed for Pain (scale 4-6) for up to 7 days. Indication s: chronic pain [facility] acetaminoph en-codeine (TYLENOL-CO DEINE #3) 300-30 mg tablet 03-15 00:00: 00 03-22 00:00 :00 No 2745 1{tbl} Take 1 tablet by mouth every 6 (six) hours as needed for Pain (scale 4-6) for up to 7 days. Indication s: chronic pain [facility] acetaminoph en-codeine (TYLENOL-CO DEINE #3) 300-30 mg tablet 2022- 8- 00:00: 00 03-22 00:00 :00 No 2745 1{tbl} Take 1 tablet by mouth every 6 (six) hours as needed for Pain (scale 4-6) for up to 7 days. Indication s: chronic pain [facility] acetaminoph en-codeine (TYLENOL-CO DEINE #3) 300-30 mg tablet 03-15 00:00: 00 03-22 00:00 :00 No 2745 1{tbl} Take 1 tablet by mouth every 6 (six) hours as needed for Pain (scale 4-6) for up to 7 days. Indication s: chronic pain [facility] methylPREDN ISolone (MEDROL, PEYTON,) 4 mg tablets 03-07 00:00: 00 Yes [id number] 9109 84mg Take 21 tablets by mouth SEE-INSTRU CTIONS. follow package directions [facility] methylPREDN ISolone (MEDROL, PEYTON,) 4 mg tablets 03-07 00:00: 00 Yes [id number] 9109 84mg Take 21 tablets by mouth SEE-INSTRU CTIONS. follow package directions [facility] methylPREDN ISolone (MEDROL, PEYTON,) 4 mg tablets 03-07 00:00: 00 Yes [id number] 9109 84mg Take 21 tablets by mouth SEE-INSTRU CTIONS. follow package directions [facility] methylPREDN ISolone (MEDROL, PEYTON,) 4 mg tablets 03-07 00:00: 00 03-15 00:00 :00 No [id number] 9109 84mg Take 21 tablets by mouth SEE-INSTRU CTIONS. follow package directions [facility] methylPREDN ISolone (MEDROL, PEYTON,) 4 mg tablets 03-07 00:00: 00 03-15 00:00 :00 No [id number] 9109 84mg Take 21 tablets by mouth SEE-INSTRU CTIONS. follow package directions [facility] triamcinolo ne acetonide (KENALOG) injection 40 mg 02-24 16:45: 00 02-24 15:59 :00 No [id number] 4109 40mg [facility] triamcinolo ne acetonide (KENALOG) injection 40 mg 02-24 16:45: 00 02-24 15:59 :00 No [id number] 4109 40mg 40 mg, Intramuscu lar, ONCE, 1 dose, On Tue02/24/23 at 1145, Routine [facility] triamcinolo ne acetonide (KENALOG) injection 40 mg 02-24 16:45: 00 02-24 15:59 :00 No [id number] 4109 40mg [facility] triamcinolo ne acetonide (KENALOG) injection 40 mg 02-24 16:45: 00 02-24 15:59 :00 No [id number] 4109 40mg 40 mg, Intramuscu lar, ONCE, 1 dose, On Tue02/24/23 at 1145, Routine [facility] warfarin 5 mg tablet 2022-0 7 09:15: 39 Yes 5mg Take 1 tablet by mouth. [facility] warfarin 5 mg tablet 2022-0 710 09:15: 39 Yes 5mg Take 1 tablet by mouth. [facility] warfarin 5 mg tablet 3-0 7-10 09:15: 39 Yes 5mg Take 1 tablet by mouth. [facility] warfarin 5 mg tablet 2022-0 7-10 09:15: 39 Yes 5mg Take 1 tablet by mouth. [facility] warfarin 5 mg tablet 2022-0 7-10 09:15: 39 Yes 5mg Take 1 tablet by mouth. [facility] warfarin 5 mg tablet 3-0 7-10 09:15: 39 Yes 5mg Take 1 tablet by mouth. [facility] warfarin 5 mg tablet 2023-0 7-10 09:15: 39 Yes 5mg Take 1 tablet by mouth. [facility] warfarin 5 mg tablet 3-0 7-10 09:15: 39 Yes 5mg Take 1 tablet by mouth. [facility] warfarin 5 mg tablet 2023-0 7-10 09:15: 39 Yes 5mg Take 1 tablet by mouth. [facility] warfarin 5 mg tablet 2023-0 7-10 09:15: 39 Yes 5mg Take 1 tablet by mouth. [facility] levothyroxi ne (SYNTHROID) 88 mcg tablet 3-0 7-10 00:00: 00 Yes [id number] 88ug Take 1 tablet by mouth every morning. [facility] levothyroxi ne (SYNTHROID) 88 mcg tablet 3-0 7-10 00:00: 00 Yes [id number] 88ug Take 1 tablet by mouth every morning. [facility] levothyroxi ne (SYNTHROID) 88 mcg tablet 3-0 7-10 00:00: 00 Yes [id number] 88ug Take 1 tablet by mouth every morning. [facility] levothyroxi ne (SYNTHROID) 88 mcg tablet 3-0 7-10 00:00: 00 Yes [id number] 88ug Take 1 tablet by mouth every morning. [facility] levothyroxi ne (SYNTHROID) 88 mcg tablet 3-0 7-10 00:00: 00 Yes [id number] 88ug Take 1 tablet by mouth every morning. [facility] levothyroxi ne (SYNTHROID) 88 mcg tablet 3-0 7-10 00:00: 00 Yes [id number] 88ug Take 1 tablet by mouth every morning. [facility] levothyroxi ne (SYNTHROID) 88 mcg tablet 3-0 7-10 00:00: 00 Yes [id number] 88ug Take 1 tablet by mouth every morning. [facility] levothyroxi ne (SYNTHROID) 88 mcg tablet 3-0 7-10 00:00: 00 Yes [id number] 88ug Take 1 tablet by mouth every morning. [facility] levothyroxi ne (SYNTHROID) 88 mcg tablet 3-0 7-10 00:00: 00 Yes [id number] 88ug Take 1 tablet by mouth every morning. [facility] levothyroxi ne (SYNTHROID) 88 mcg tablet 3-0 7-10 00:00: 00 Yes [id number] 88ug Take 1 tablet by mouth every morning. [facility] levothyroxi ne (SYNTHROID) 88 mcg tablet 3-0 7-10 00:00: 00 Yes [id number] 88ug Take 1 tablet by mouth every morning. [facility] levothyroxi ne (SYNTHROID) 88 mcg tablet 3-0 7-10 00:00: 00 Yes [id number] 88ug Take 1 tablet by mouth every morning. [facility] levothyroxi ne (SYNTHROID) 88 mcg tablet 3-0 7-10 00:00: 00 Yes [id number] 88ug Take 1 tablet by mouth every morning. [facility] levothyroxi ne (SYNTHROID) 88 mcg tablet 2022-0 7-10 00:00: 00 Yes [id number] 88ug Take 1 tablet by mouth every morning. [facility] levothyroxi ne (SYNTHROID) 88 mcg tablet 2022-0 7-10 00:00: 00 Yes [id number] 88ug Take 1 tablet by mouth every morning. [facility] levothyroxi ne (SYNTHROID) 88 mcg tablet 3-0 7-10 00:00: 00 Yes [id number] 88ug Take 1 tablet by mouth every morning. [facility] levothyroxi ne (SYNTHROID) 88 mcg tablet 2022-0 710 00:00: 00 Yes [id number] 88ug Take 1 tablet by mouth every morning. [facility] levothyroxi ne (SYNTHROID) 88 mcg tablet 2022-0 7-10 00:00: 00 Yes [id number] 88ug Take 1 tablet by mouth every morning. [facility] levothyroxi ne (SYNTHROID) 88 mcg tablet 3-0 710 00:00: 00 Yes [id number] 88ug Take 1 tablet by mouth every morning. [facility] levothyroxi ne (SYNTHROID) 88 mcg tablet 3-0 7-10 00:00: 00 Yes [id number] 88ug Take 1 tablet by mouth every morning. [facility] [facility]SYNTHROID[facility] 88 mcg tablet 3-0 7-10 00:00: 00 Yes [id number] 88ug Take 1 tablet by mouth every morning. [facility] levothyroxi ne (SYNTHROID) 88 mcg tablet 3-0 7-10 00:00: 00 Yes [id number] 88ug Take 1 tablet by mouth every morning. [facility] levothyroxi ne (SYNTHROID) 88 mcg tablet 3-0 7-10 00:00: 00 Yes [id number] 88ug Take 1 tablet by mouth every morning. [facility] levothyroxi ne (SYNTHROID) 88 mcg tablet 3-0 7-10 00:00: 00 Yes [id number] 88ug Take 1 tablet by mouth every morning. [facility] levothyroxi ne (SYNTHROID) 88 mcg tablet 3-0 7-10 00:00: 00 Yes [id number] 88ug Take 1 tablet by mouth every morning. [facility] levothyroxi ne (SYNTHROID) 88 mcg tablet 3-0 7-10 00:00: 00 Yes [id number] 88ug Take 1 tablet by mouth every morning. [facility] levothyroxi ne (SYNTHROID) 88 mcg tablet 3-0 7-10 00:00: 00 Yes [id number] 88ug Take 1 tablet by mouth every morning. [facility] levothyroxi ne (SYNTHROID) 88 mcg tablet 3-0 7-10 00:00: 00 Yes [id number] 88ug Take 1 tablet by mouth every morning. [facility] levothyroxi ne (SYNTHROID) 88 mcg tablet 3-0 7-10 00:00: 00 Yes [id number] 88ug Take 1 tablet by mouth every morning. [facility] levothyroxi ne (SYNTHROID) 88 mcg tablet 3-0 7-10 00:00: 00 Yes [id number] 88ug Take 1 tablet by mouth every morning. [facility] levothyroxi ne (SYNTHROID) 88 mcg tablet 3-0 7-10 00:00: 00 Yes [id number] 88ug Take 1 tablet by mouth every morning. [facility] levothyroxi ne (SYNTHROID) 88 mcg tablet 3-0 7-10 00:00: 00 Yes [id number] 88ug Take 1 tablet by mouth every morning. [facility] levothyroxi ne (SYNTHROID) 88 mcg tablet 3-0 7-10 00:00: 00 Yes [id number] 88ug Take 1 tablet by mouth every morning. [facility] levothyroxi ne (SYNTHROID) 88 mcg tablet 3-0 710 00:00: 00 Yes [id number] 88ug Take 1 tablet by mouth every morning. [facility] levothyroxi ne (SYNTHROID) 88 mcg tablet 3-0 7-10 00:00: 00 Yes [id number] 88ug Take 1 tablet by mouth every morning. [facility] levothyroxi ne (SYNTHROID) 88 mcg tablet 3-0 7-10 00:00: 00 Yes [id number] 88ug Take 1 tablet by mouth every morning. [facility] levothyroxi ne (SYNTHROID) 88 mcg tablet 2022-0 7-10 00:00: 00 Yes [id number] 88ug Take 1 tablet by mouth every morning. [facility] levothyroxi ne (SYNTHROID) 88 mcg tablet 3-0 7-10 00:00: 00 Yes [id number] 88ug Take 1 tablet by mouth every morning. [facility] levothyroxi ne (SYNTHROID) 88 mcg tablet 3-0 7-10 00:00: 00 Yes [id number] 88ug Take 1 tablet by mouth every morning. [facility] levothyroxi ne (SYNTHROID) 88 mcg tablet 3-0 7-10 00:00: 00 Yes [id number] 88ug Take 1 tablet by mouth every morning. [facility] levothyroxi ne (SYNTHROID) 88 mcg tablet 3-0 7-10 00:00: 00 Yes [id number] 88ug Take 1 tablet by mouth every morning. [facility] levothyroxi ne (SYNTHROID) 88 mcg tablet 3-0 7-10 00:00: 00 Yes [id number] 88ug Take 1 tablet by mouth every morning. [facility] levothyroxi ne (SYNTHROID) 88 mcg tablet 3-0 7-10 00:00: 00 Yes [id number] 88ug Take 1 tablet by mouth every morning. [facility] levothyroxi ne (SYNTHROID) 88 mcg tablet 3-0 7-10 00:00: 00 Yes [id number] 88ug Take 1 tablet by mouth every morning. [facility] levothyroxi ne (SYNTHROID) 88 mcg tablet 2022-0 710 00:00: 00 Yes [id number] 88ug Take 1 tablet by mouth every morning. [facility] levothyroxi ne (SYNTHROID) 88 mcg tablet 3-0 7-10 00:00: 00 Yes [id number] 88ug Take 1 tablet by mouth every morning. [facility] levothyroxi ne (SYNTHROID) 88 mcg tablet 3-0 7-10 00:00: 00 Yes [id number] 88ug Take 1 tablet by mouth every morning. [facility] levothyroxi ne (SYNTHROID) 88 mcg tablet 2022-0 7-10 00:00: 00 Yes [id number] 88ug Take 1 tablet by mouth every morning. [facility] levothyroxi ne (SYNTHROID) 88 mcg tablet 2022-0 710 00:00: 00 Yes [id number] 88ug Take 1 tablet by mouth every morning. [facility] levothyroxi ne (SYNTHROID) 88 mcg tablet 3-0 710 00:00: 00 Yes [id number] 88ug Take 1 tablet by mouth every morning. [facility] levothyroxi ne (SYNTHROID) 88 mcg tablet 2022-0 710 00:00: 00 Yes [id number] 88ug Take 1 tablet by mouth every morning. [facility] levothyroxi ne (SYNTHROID) 88 mcg tablet 3-0 710 00:00: 00 Yes [id number] 88ug Take 1 tablet by mouth every morning. [facility] levothyroxi ne (SYNTHROID) 88 mcg tablet 3-0 7-10 00:00: 00 Yes [id number] 88ug Take 1 tablet by mouth every morning. [facility] levothyroxi ne (SYNTHROID) 88 mcg tablet 3-0 7-10 00:00: 00 Yes [id number] 88ug Take 1 tablet by mouth every morning. [facility] levothyroxi ne (SYNTHROID) 88 mcg tablet 3-0 7-10 00:00: 00 Yes [id number] 88ug Take 1 tablet by mouth every morning. [facility] levothyroxi ne (SYNTHROID) 88 mcg tablet 3-0 7-10 00:00: 00 Yes [id number] 88ug Take 1 tablet by mouth every morning. [facility] levothyroxi ne (SYNTHROID) 88 mcg tablet 3-0 7-10 00:00: 00 Yes [id number] 88ug Take 1 tablet by mouth every morning. [facility] levothyroxi ne (SYNTHROID) 88 mcg tablet 3-0 7-10 00:00: 00 Yes [id number] 88ug Take 1 tablet by mouth every morning. [facility] levothyroxi ne (SYNTHROID) 88 mcg tablet 2022-0 7-10 00:00: 00 Yes [id number] 88ug Take 1 tablet by mouth every morning. [facility] levothyroxi ne (SYNTHROID) 88 mcg tablet 2022-0 710 00:00: 00 Yes [id number] 88ug Take 1 tablet by mouth every morning. [facility] levothyroxi ne (SYNTHROID) 88 mcg tablet 3-0 7-10 00:00: 00 Yes [id number] 88ug Take 1 tablet by mouth every morning. [facility] levothyroxi ne (SYNTHROID) 88 mcg tablet 3-0 7-10 00:00: 00 Yes [id number] 88ug Take 1 tablet by mouth every morning. [facility] levothyroxi ne (SYNTHROID) 88 mcg tablet 3-0 7-10 00:00: 00 Yes [id number] 88ug Take 1 tablet by mouth every morning. [facility] levothyroxi ne (SYNTHROID) 88 mcg tablet 3-0 7-10 00:00: 00 Yes [id number] 88ug Take 1 tablet by mouth every morning. [facility] levothyroxi ne (SYNTHROID) 88 mcg tablet 3-0 7-10 00:00: 00 Yes [id number] 88ug Take 1 tablet by mouth every morning. [facility] levothyroxi ne (SYNTHROID) 88 mcg tablet 3-0 7-10 00:00: 00 Yes [id number] 88ug Take 1 tablet by mouth every morning. [facility] levothyroxi ne (SYNTHROID) 88 mcg tablet 3-0 7-10 00:00: 00 Yes [id number] 88ug Take 1 tablet by mouth every morning. [facility] levothyroxi ne (SYNTHROID) 88 mcg tablet 3-0 7-10 00:00: 00 Yes [id number] 88ug Take 1 tablet by mouth every morning. [facility] levothyroxi ne (SYNTHROID) 88 mcg tablet 3-0 7-10 00:00: 00 Yes [id number] 88ug Take 1 tablet by mouth every morning. [facility] levothyroxi ne (SYNTHROID) 88 mcg tablet 3-0 7-10 00:00: 00 Yes [id number] 88ug Take 1 tablet by mouth every morning. [facility] levothyroxi ne (SYNTHROID) 88 mcg tablet 3-0 7-10 00:00: 00 Yes [id number] 88ug Take 1 tablet by mouth every morning. [facility] levothyroxi ne (SYNTHROID) 88 mcg tablet 3-0 7-10 00:00: 00 Yes [id number] 88ug Take 1 tablet by mouth every morning. [facility] levothyroxi ne (SYNTHROID) 88 mcg tablet 3-0 7-10 00:00: 00 Yes [id number] 88ug Take 1 tablet by mouth every morning. [facility] levothyroxi ne (SYNTHROID) 88 mcg tablet 3-0 7-10 00:00: 00 Yes [id number] 88ug Take 1 tablet by mouth every morning. [facility] levothyroxi ne (SYNTHROID) 88 mcg tablet 3-0 7-10 00:00: 00 Yes [id number] 88ug Take 1 tablet by mouth every morning. [facility] levothyroxi ne (SYNTHROID) 88 mcg tablet 3-0 7-10 00:00: 00 Yes [id number] 88ug Take 1 tablet by mouth every morning. [facility] levothyroxi ne (SYNTHROID) 88 mcg tablet 3-0 7-10 00:00: 00 Yes [id number] 88ug Take 1 tablet by mouth every morning. [facility] levothyroxi ne (SYNTHROID) 88 mcg tablet 3-0 7-10 00:00: 00 Yes [id number] 88ug Take 1 tablet by mouth every morning. [facility] levothyroxi ne (SYNTHROID) 88 mcg tablet 3-0 7-10 00:00: 00 Yes [id number] 88ug Take 1 tablet by mouth every morning. [facility] levothyroxi ne (SYNTHROID) 88 mcg tablet 3-0 7-10 00:00: 00 Yes [id number] 88ug Take 1 tablet by mouth every morning. [facility] levothyroxi ne (SYNTHROID) 88 mcg tablet 3-0 7-10 00:00: 00 Yes [id number] 88ug Take 1 tablet by mouth every morning. [facility] levothyroxi ne (SYNTHROID) 88 mcg tablet 3-0 7-10 00:00: 00 Yes [id number] 88ug Take 1 tablet by mouth every morning. [facility] levothyroxi ne (SYNTHROID) 88 mcg tablet 3-0 7-10 00:00: 00 Yes [id number] 88ug Take 1 tablet by mouth every morning. [facility] levothyroxi ne (SYNTHROID) 88 mcg tablet 3-0 7-10 00:00: 00 Yes [id number] 88ug Take 1 tablet by mouth every morning. [facility] levothyroxi ne (SYNTHROID) 88 mcg tablet 3-0 7-10 00:00: 00 Yes [id number] 88ug Take 1 tablet by mouth every morning. [facility] levothyroxi ne (SYNTHROID) 88 mcg tablet 3-0 7-10 00:00: 00 Yes [id number] 88ug Take 1 tablet by mouth every morning. [facility] levothyroxi ne (SYNTHROID) 88 mcg tablet 3-0 7-10 00:00: 00 Yes [id number] 88ug Take 1 tablet by mouth every morning. [facility] levothyroxi ne (SYNTHROID) 88 mcg tablet 3-0 7-10 00:00: 00 Yes [id number] 88ug Take 1 tablet by mouth every morning. [facility] levothyroxi ne (SYNTHROID) 88 mcg tablet 3-0 7-10 00:00: 00 Yes [id number] 88ug Take 1 tablet by mouth every morning. [facility] levothyroxi ne (SYNTHROID) 88 mcg tablet 3-0 7-10 00:00: 00 Yes [id number] 88ug Take 1 tablet by mouth every morning. [facility] levothyroxi ne (SYNTHROID) 88 mcg tablet 3-0 7-10 00:00: 00 Yes [id number] 88ug Take 1 tablet by mouth every morning. [facility] levothyroxi ne (SYNTHROID) 88 mcg tablet 3-0 7-10 00:00: 00 Yes [id number] 88ug Take 1 tablet by mouth every morning. [facility] levothyroxi ne (SYNTHROID) 88 mcg tablet 3-0 7-10 00:00: 00 Yes [id number] 88ug Take 1 tablet by mouth every morning. [facility] levothyroxi ne (SYNTHROID) 88 mcg tablet 3-0 7-10 00:00: 00 Yes [id number] 88ug Take 1 tablet by mouth every morning. [facility] levothyroxi ne (SYNTHROID) 88 mcg tablet 3-0 7-10 00:00: 00 Yes [id number] 88ug Take 1 tablet by mouth every morning. [facility] levothyroxi ne (SYNTHROID) 88 mcg tablet 3-0 7-10 00:00: 00 Yes [id number] 88ug Take 1 tablet by mouth every morning. [facility] levothyroxi ne (SYNTHROID) 88 mcg tablet 3-0 7-10 00:00: 00 Yes [id number] 88ug Take 1 tablet by mouth every morning. [facility] levothyroxi ne (SYNTHROID) 88 mcg tablet 3-0 7-10 00:00: 00 Yes [id number] 88ug Take 1 tablet by mouth every morning. [facility] levothyroxi ne (SYNTHROID) 88 mcg tablet 02-21 00:00: 00 Yes [id number] 88ug Take 1 tablet by mouth every morning. [facility] levothyroxi ne (SYNTHROID) 88 mcg tablet 02-21 00:00: 00 05-18 00:00 :00 No [id number] 88ug Take 1 tablet by mouth every morning. [facility] levothyroxi ne (SYNTHROID) 88 mcg tablet 02-21 00:00: 00 05-18 00:00 :00 No [id number] 88ug Take 1 tablet by mouth every morning. [facility] levothyroxi ne (SYNTHROID) 88 mcg tablet 02-21 00:00: 00 05-18 00:00 :00 No [id number] 88ug Take 1 tablet by mouth every morning. [facility] levothyroxi ne (SYNTHROID) 88 mcg tablet 02-21 00:00: 00 05-18 00:00 :00 No [id number] 88ug Take 1 tablet by mouth every morning. [facility] levothyroxi ne (SYNTHROID) 88 mcg tablet 02-21 00:00: 00 05-18 00:00 :00 No [id number] 88ug Take 1 tablet by mouth every morning. [facility] levothyroxi ne (SYNTHROID) 88 mcg tablet 02-21 00:00: 00 05-18 00:00 :00 No [id number] 88ug Take 1 tablet by mouth every morning. [facility] levothyroxi ne (SYNTHROID) 88 mcg tablet 02-21 00:00: 00 05-18 00:00 :00 No [id number] 88ug Take 1 tablet by mouth every morning. [facility] melatonin (MELATIN) tablet 3 mg 02-12 02:00: 00 Yes 3mg 3 mg, Oral, QHS, First dose on Tue02/11/23 at 2100, Until Discontinu ed, Routine [facility] metoprolol tartrate 50 mg tablet 02-12 00:00: 00 03-15 04:59 :00 No [id number] 50mg Take 1 tablet by mouth in the morning and 1 tablet in the evening. Do all this for 30 days. [facility] metoprolol tartrate 50 mg tablet 02-12 00:00: 00 03-15 04:59 :00 No [id number] 50mg Take 1 tablet by mouth in the morning and 1 tablet in the evening. Do all this for 30 days. [facility] metoprolol tartrate 50 mg tablet 02-12 00:00: 00 03-15 04:59 :00 No [id number] 50mg Take 1 tablet by mouth in the morning and 1 tablet in the evening. Do all this for 30 days. [facility] metoprolol tartrate 50 mg tablet 02-12 00:00: 00 03-15 04:59 :00 No [id number] 50mg Take 1 tablet by mouth in the morning and 1 tablet in the evening. Do all this for 30 days. [facility] metoprolol tartrate 50 mg tablet 02-12 00:00: 00 03-15 04:59 :00 No [id number] 50mg Take 1 tablet by mouth in the morning and 1 tablet in the evening. Do all this for 30 days. [facility] metoprolol tartrate 50 mg tablet 02-12 00:00: 00 03-15 04:59 :00 No [id number] 50mg Take 1 tablet by mouth in the morning and 1 tablet in the evening. Do all this for 30 days. [facility] metoprolol tartrate 50 mg tablet 02-12 00:00: 00 03-15 04:59 :00 No [id number] 50mg Take 1 tablet by mouth in the morning and 1 tablet in the evening. Do all this for 30 days. [facility] metoprolol tartrate 50 mg tablet 02-12 00:00: 00 03-15 04:59 :00 No [id number] 50mg Take 1 tablet by mouth in the morning and 1 tablet in the evening. Do all this for 30 days. [facility] metoprolol tartrate 50 mg tablet 02-12 00:00: 00 03-15 04:59 :00 No [id number] 50mg Take 1 tablet by mouth in the morning and 1 tablet in the evening. Do all this for 30 days. [facility] metoprolol tartrate 50 mg tablet 02-12 00:00: 00 03-15 04:59 :00 No [id number] 50mg Take 1 tablet by mouth in the morning and 1 tablet in the evening. Do all this for 30 days. [facility] amiodarone 200 mg tablet 02-12 00:00: 00 03-13 04:59 :00 No [id number] Take 1 tablet by mouth 3 (three) times daily for 7 days, THEN 1 tablet 2 (two) times daily for 7 days, THEN 1 tablet daily for 14 days. [facility] amiodarone 200 mg tablet 02-12 00:00: 00 03-13 04:59 :00 No [id number] Take 1 tablet by mouth 3 (three) times daily for 7 days, THEN 1 tablet 2 (two) times daily for 7 days, THEN 1 tablet daily for 14 days. [facility] amiodarone 200 mg tablet 02-12 00:00: 00 03-13 04:59 :00 No [id number] Take 1 tablet by mouth 3 (three) times daily for 7 days, THEN 1 tablet 2 (two) times daily for 7 days, THEN 1 tablet daily for 14 days. [facility] amiodarone 200 mg tablet 02-12 00:00: 00 03-13 04:59 :00 No [id number] Take 1 tablet by mouth 3 (three) times daily for 7 days, THEN 1 tablet 2 (two) times daily for 7 days, THEN 1 tablet daily for 14 days. [facility] amiodarone 200 mg tablet 02-12 00:00: 00 03-13 04:59 :00 No [id number] Take 1 tablet by mouth 3 (three) times daily for 7 days, THEN 1 tablet 2 (two) times daily for 7 days, THEN 1 tablet daily for 14 days. [facility] amiodarone 200 mg tablet 02-12 00:00: 00 03-13 04:59 :00 No [id number] Take 1 tablet by mouth 3 (three) times daily for 7 days, THEN 1 tablet 2 (two) times daily for 7 days, THEN 1 tablet daily for 14 days. [facility] amiodarone 200 mg tablet 02-12 00:00: 00 03-13 04:59 :00 No [id number] Take 1 tablet by mouth 3 (three) times daily for 7 days, THEN 1 tablet 2 (two) times daily for 7 days, THEN 1 tablet daily for 14 days. [facility] amiodarone 200 mg tablet 02-12 00:00: 00 03-13 04:59 :00 No [id number] Take 1 tablet by mouth 3 (three) times daily for 7 days, THEN 1 tablet 2 (two) times daily for 7 days, THEN 1 tablet daily for 14 days. [facility] amiodarone 200 mg tablet 02-12 00:00: 00 03-13 04:59 :00 No [id number] Take 1 tablet by mouth 3 (three) times daily for 7 days, THEN 1 tablet 2 (two) times daily for 7 days, THEN 1 tablet daily for 14 days. [facility] amiodarone 200 mg tablet 02-12 00:00: 00 03-13 04:59 :00 No [id number] Take 1 tablet by mouth 3 (three) times daily for 7 days, THEN 1 tablet 2 (two) times daily for 7 days, THEN 1 tablet daily for 14 days. [facility] dronedarone 400 mg tablet 02-12 00:00: 00 02-12 00:00 :00 No [id number] 400mg Take 1 tablet by mouth in the morning and 1 tablet in the evening. Take with meals. Do all this for 30 days. [facility] dronedarone 400 mg tablet 02-12 00:00: 00 02-12 00:00 :00 No [id number] 400mg Take 1 tablet by mouth in the morning and 1 tablet in the evening. Take with meals. Do all this for 30 days. [facility] Saline Bubble Study 02-11 14:55: 46 Yes [id number] 6mL 6 mL, Injection, SEE-INSTRU CTIONS, Starting on Tue02/11/23 at 0955, Until Discontinu ed, Routine [facility] benzocaine (HURRICAINE ONE) 20 % mucosal spray 1 [place] 02-11 14:15: 00 02-11 12:26 :00 No 1{spray } 1 [place], Oral, ONCE, 1 dose, On Tue02/11/23 at 0915, Routine [facility] dronedarone (MULTAQ) tablet 400 mg 02-11 13:30: 00 02-12 15:55 :15 No 400mg 400 mg, Oral, BID MEALS, First dose on Tue02/11/23 at 0830, Until Discontinu ed, Routine [facility] metoprolol tartrate (LOPRESSOR) tablet 50 mg 02-11 01:00: 00 Yes 50mg 50 mg, Oral, BID, First dose (after last modificati on) on Tue02/10/23 at 2000, Until Discontinu ed, Routine [facility] warfarin (COUMADIN) tablet 4 mg 02-10 22:00: 00 Yes 4mg 4 mg, Oral, DAILY AT 1700, First dose on Tue02/10/23 at 1700, Until Discontinu ed, Routine
INR Goal Range: 2-3
IND ICATION (More than one indication for warfarin can be selected): Atrial fibrillati on/flutter [facility] warfarin (COUMADIN) tablet 2.5 mg 02-09 23:00: 00 02-10 20:06 :41 No 2.5mg 2.5 mg, Oral, DAILY AT 1700, First dose (after last modificati on) on Tue02/09/23 at 1800, Until Discontinu ed, Routine
INR Goal Range: 2-3
IND ICATION (More than one indication for warfarin can be selected): Atrial fibrillati on/flutter [facility] diltiazem (CARDIZEM) tablet 30 mg 02-09 23:00: 00 02-10 12:42 :12 No 30mg 30 mg, Oral, Q6H, First dose (after last modificati on) on Tue02/09/23 at 1800, Until Discontinu ed, Routine [facility] furosemide (LASIX) injection 20 mg 02-09 14:00: 00 02-09 22:21 :54 No 20mg 20 mg, Slow IV Push, DAILY, First dose (after last modificati on) on Tue02/09/23 at 0900, Until Discontinu ed, Routine [facility] levothyroxi ne (SYNTHROID) tablet 100 mcg 02-09 11:00: 00 Yes 100ug 100 mcg, Oral, QAM-0600, First dose on Tue02/09/23 at 0600, Until Discontinu ed, Routine [facility] atorvastati n (LIPITOR) tablet 80 mg 02-09 02:00: 00 Yes 80mg 80 mg, Oral, QHS, First dose on Tue02/08/23 at 2100, Until Discontinu ed, [facility] 20 mg 02-09 01:00: 00 02-09 12:37 :03 No 20mg 20 mg, Slow IV Push, Q12H, First dose on Tue02/08/23 at 2000, Until Discontinu ed, Routine [facility] metoprolol tartrate (LOPRESSOR) tablet 25 mg 02-08 23:00: 00 02-10 22:09 :00 No 25mg 25 mg, Oral, Q6H, First dose on Tue02/08/23 at 1800, Until Discontinu ed, Routine [facility] diltiazem (CARDIZEM) tablet 60 mg 02-08 23:00: 00 02-09 21:53 :46 No 60mg 60 mg, Oral, Q6H, First dose (after last modificati on) on Tue02/08/23 at 1800, Until Discontinu ed, [facility] ([facility] tablet 2.5 mg 02-08 22:00: 00 02-09 22:15 :16 No 2.5mg 2.5 mg, Oral, DAILY AT 1700, First dose (after last modificati on) on Tue02/08/23 at 1700, Until Discontinu ed, Routine
INR Goal Range: 2-3
IND ICATION (More than one indication for warfarin can be selected): Atrial fibrillati on/flutter [facility] ezetimibe (ZETIA) tablet 10 mg 02-08 14:30: 00 Yes 10mg 10 mg, Oral, DAILY, First dose on Tue02/08/23 at 0930, Until Discontinu ed, Rout[facility] ([facility]ARD[facility]EM) tablet 30 mg 02-08 14:15: 00 02-08 22:03 :26 No 30mg 30 mg, Oral, Q6H, First dose on Tue02/08/23 at 0915, Until Discontinu ed, Routine [facility] metoprolol (LOPRESSOR) injection 5 mg 02-08 14:13: 10 Yes 5mg 5 mg, Slow IV Push, Q4HPRN, Starting on Tue02/08/23 at 0913, Until Discontinu ed, Routine, HR >100 [facility] heparin 1000 unit/mL injection Soln 5,000 Units 02-08 12:45: 00 02-08 14:41 :00 No 5000U 5,000 Units, IV Push, ONCE, 1 dose, On Tue02/08/23 at 0745, Routine [facility] heparin 25,000 Units/250 mL (Premixed Bag) in 0.45 % NS 02-08 12:28: 14 Yes 0U/h 0-2,050 Units/hr (0-20.5 mL/hr), IV Infusion, TITRATE, Parameters in Admin. Instr., Starting on Tue02/08/23 at 0728
In itiate dosing:&nb sp; & nbsp;&nbsp ; -Patient 73 kg or under: 1,150 Units/hr (Calculate d dose at 18 units/kg/h r) &n bsp; &nbs p; -Patient over 73 k,300 units/hr&n bsp;DO NOT Exceed the MAXIMUM 1,300 units/hr for initiation of heparin drip.&nbsp ; CAU TION - If LMWH given in ER, AVOID bolus and start next dose/drip 24 hrs after ER dosage.&nb sp; M ust program rate using programmab le infusion pump.&nbsp ; Marivel ck with the ordering provider first prior to any administra tion should the patient be on existing/a dditional anticoagul ant therapy. Rang e, Dosing and Testing: &nbs p;DO NOT ADJUST INITIAL BOLUS OR INITIAL INFUSION RATE.&nbsp ; _ &nb sp;FOR [facility], [facility], AND [facility] ONLY &nbs p; - aPTT < 35: & nbsp;Bolus 5000 units, increase rate 300 units/hr&n bsp; - aPTT 35-44:&nbs p; Ambrocio jen 3000 units, increase rate 200 units/hr&n bsp; - aPTT 45-54:&nbs p; In crease rate 100 units/hr&n bsp; - aPTT 55-85:&nbs p; NO CHANGE&nbs p; - aPTT 86-95:&nbs p; De crease rate 100 units/hr&n bsp; - aPTT 96-120:&nb sp; H old 30 minutes, decrease rate 150 units/hr&n bsp; - aPTT > 120: Hold 60 minutes, decrease rate 200 units/hr&n bsp; Check aPTT 6 hours after initiation , then Q6H after every change, aPTT Q12H once therapeuti c levels are reached.&n bsp; &nbs p; __ &n bsp;FOR [facility] ONLY - aPTT < 40: & nbsp;Bolus 5000 units, increase rate 300 units/hr&n bsp; - aPTT 40-49:&nbs p; Ambrocio jen 3000 units, increase rate 200 units/hr&n bsp; - aPTT 50-59:&nbs p;&nbs p;Increase rate 100 units/hr&n bsp; - aPTT 60-85:&nbs p; NO CHANGE&nbs p; - aPTT 86-95:&nbs p; De crease rate 100 units/hr&n bsp; - aPTT 96-120:&nb sp; H old 30 minutes, decrease rate 150 units/hr&n bsp; - aPTT > 120: Hold 60 minutes, decrease rate 200 units/hr&n bsp; Check aPTT 6 hours after initiation , then Q6H after every change, aPTT Q12H once therapeuti c levels are reached.<b r> [facility] heparin (1,000 unit/mL, 10 mL vial) 02-08 12:28: 11 Yes 3000U FOR REBOLUSING , Starting on Tue02/08/23 at 0728, Until Discontinu ed, Routine
Dosing based on aPTT testing parameters (refer to continuous heparin drip order)
[facility] furosemide (LASIX) injection 20 mg 02-08 12:15: 00 02-08 12:27 :00 No 20mg 20 mg, IV Push, ONCE, 1 dose, On Tue02/08/23 at 0715, KRISTOPHER [facility] diltiazem (CARDIZEM IV) injection 10 mg 02-08 11:45: 00 02-08 11:42 :00 No 10mg 10 mg, IV Push, ONCE, 1 dose, On Tue02/08/23 at 0645, STAT
Fa culty member approving Restricted medication : OLY MCCLELLAND [facility] apixaban (ELIQUIS) 5 mg tablet 01-25 00:00: 00 Yes [id number] 5mg Take 1 tablet by mouth in the morning and 1 tablet in the evening. Indication s: atrial fibrillati on [facility] apixaban (ELIQUIS) 5 mg tablet 2022-01-25 00:00: 00 Yes 1358 5mg Take 1 tablet by mouth in the morning and 1 tablet in the evening. Indication s: atrial fibrillati on [facility] apixaban (ELIQUIS) 5 mg tablet 2022-01-25 00:00: 00 Yes 1358 5mg Take 1 tablet by mouth in the morning and 1 tablet in the evening. Indication s: atrial fibrillati on [facility] apixaban (ELIQUIS) 5 mg tablet 2022-01-25 00:00: 00 Yes 1358 5mg Take 1 tablet by mouth in the morning and 1 tablet in the evening. Indication s: atrial fibrillati on [facility] apixaban (ELIQUIS) 5 mg tablet 2022-0 01-25 00:00: 00 Yes 1358 5mg Take 1 tablet by mouth in the morning and 1 tablet in the evening. Indication s: atrial fibrillati on [facility] apixaban (ELIQUIS) 5 mg tablet 2022-0 01-25 00:00: 00 Yes 1358 5mg Take 1 tablet by mouth in the morning and 1 tablet in the evening. Indication s: atrial fibrillati on [facility] apixaban (ELIQUIS) 5 mg tablet 2022-0 6-13 00:00: 00 Yes 1358 5mg Take 1 tablet by mouth in the morning and 1 tablet in the evening. Indication s: atrial fibrillati on [facility] apixaban (ELIQUIS) 5 mg tablet 2022-0 6-13 00:00: 00 Yes 1358 5mg Take 1 tablet by mouth in the morning and 1 tablet in the evening. Indication s: atrial fibrillati on [facility] apixaban (ELIQUIS) 5 mg tablet 2022-0 6-13 00:00: 00 Yes 1358 5mg Take 1 tablet by mouth in the morning and 1 tablet in the evening. Indication s: atrial fibrillati on [facility] apixaban (ELIQUIS) 5 mg tablet 2022-0 - 00:00: 00 Yes 1358 5mg Take 1 tablet by mouth in the morning and 1 tablet in the evening. Indication s: atrial fibrillati on [facility] apixaban (ELIQUIS) 5 mg tablet 2022-0 13 00:00: 00 Yes 1358 5mg Take 1 tablet by mouth in the morning and 1 tablet in the evening. Indication s: atrial fibrillati on [facility] apixaban (ELIQUIS) 5 mg tablet 2022-0 13 00:00: 00 Yes 1358 5mg Take 1 tablet by mouth in the morning and 1 tablet in the evening. Indication s: atrial fibrillati on [facility] apixaban (ELIQUIS) 5 mg tablet 2022-0 -13 00:00: 00 02-12 00:00 :00 No 1358 5mg Take 1 tablet by mouth in the morning and 1 tablet in the evening. Indication s: atrial fibrillati on [facility] apixaban (ELIQUIS) 5 mg tablet 2022-0 6-13 00:00: 00 02-12 00:00 :00 No 1358 5mg Take 1 tablet by mouth in the morning and 1 tablet in the evening. Indication s: atrial fibrillati on [facility] diltiazem 120 mg 24 hr capsule 12 10:33: 17 01-24 00:00 :00 No 120mg Take 1 capsule by mouth in the morning. Take in the afternoon [facility] diltiazem 120 mg 24 hr capsule 12 10:33: 17 01-24 00:00 :00 No 120mg Take 1 capsule by mouth in the morning. Take in the afternoon [facility] diltiazem (CARDIZEM LA) 120 mg 24 hr tablet 01-24 00:00: 00 Yes [id number] 120mg Take 1 tablet by mouth in the morning. [facility] diltiazem (CARDIZEM LA) 120 mg 24 hr tablet 01-24 00:00: 00 Yes [id number] 120mg Take 1 tablet by mouth in the morning. [facility] codeine-gua ifenesin 10-100 mg/5 mL oral solution 01-24 00:00: 00 Yes [id number] 10mL Take 10 mL by mouth every 6 (six) hours as needed for Cough. Indication s: chronic pain [facility] diltiazem (CARDIZEM LA) 120 mg 24 hr tablet 01-24 00:00: 00 Yes [id number] 120mg Take 1 tablet by mouth in the morning. [facility] codeine-gua ifenesin 10-100 mg/5 mL oral solution 01-24 00:00: 00 Yes [id number] 10mL Take 10 mL by mouth every 6 (six) hours as needed for Cough. Indication s: chronic pain [facility] diltiazem (CARDIZEM LA) 120 mg 24 hr tablet 01-24 00:00: 00 Yes [id number] 120mg Take 1 tablet by mouth in the morning. [facility] codeine-gua ifenesin 10-100 mg/5 mL oral solution 01-24 00:00: 00 Yes [id number] 10mL Take 10 mL by mouth every 6 (six) hours as needed for Cough. Indication s: chronic pain [facility] diltiazem (CARDIZEM LA) 120 mg 24 hr tablet 0 12 00:00: 00 Yes [id number] 120mg Take 1 tablet by mouth in the morning. [facility] codeine-gua ifenesin 10-100 mg/5 mL oral solution 0 612 00:00: 00 Yes [id number] 10mL Take 10 mL by mouth every 6 (six) hours as needed for Cough. Indication s: chronic pain [facility] diltiazem (CARDIZEM LA) 120 mg 24 hr tablet 2022-0 612 00:00: 00 Yes [id number] 120mg Take 1 tablet by mouth in the morning. [facility] codeine-gua ifenesin 10-100 mg/5 mL oral solution 2022-0 01-24 00:00: 00 Yes 5224 10mL Take 10 mL by mouth every 6 (six) hours as needed for Cough. Indication s: chronic pain [facility] diltiazem (CARDIZEM LA) 120 mg 24 hr tablet 2022-0 01-24 00:00: 00 Yes [id number] 120mg Take 1 tablet by mouth in the morning. [facility] codeine-gua ifenesin 10-100 mg/5 mL oral solution 2022-0 01-24 00:00: 00 Yes 5224 10mL Take 10 mL by mouth every 6 (six) hours as needed for Cough. Indication s: chronic pain [facility] diltiazem (CARDIZEM LA) 120 mg 24 hr tablet 2022-0 12 00:00: 00 Yes [id number] 120mg Take 1 tablet by mouth in the morning. [facility] codeine-gua ifenesin 10-100 mg/5 mL oral solution 2022-0 12 00:00: 00 Yes 5224 10mL Take 10 mL by mouth every 6 (six) hours as needed for Cough. Indication s: chronic pain [facility] diltiazem (CARDIZEM LA) 120 mg 24 hr tablet 3-0 6-12 00:00: 00 Yes [id number] 120mg Take 1 tablet by mouth in the morning. [facility] codeine-gua ifenesin 10-100 mg/5 mL oral solution 0 6-12 00:00: 00 Yes 5224 10mL Take 10 mL by mouth every 6 (six) hours as needed for Cough. Indication s: chronic pain [facility] diltiazem (CARDIZEM LA) 120 mg 24 hr tablet 0 01-24 00:00: 00 Yes [id number] 120mg Take 1 tablet by mouth in the morning. [facility] codeine-gua ifenesin 10-100 mg/5 mL oral solution 01-24 00:00: 00 Yes 5224 10mL Take 10 mL by mouth every 6 (six) hours as needed for Cough. Indication s: chronic pain [facility] diltiazem (CARDIZEM LA) 120 mg 24 hr tablet 01-24 00:00: 00 Yes [id number] 120mg Take 1 tablet by mouth in the morning. [facility] codeine-gua ifenesin 10-100 mg/5 mL oral solution 01-24 00:00: 00 Yes 5224 10mL Take 10 mL by mouth every 6 (six) hours as needed for Cough. Indication s: [facility] (CARDIZEM [facility]) 120 mg 24 hr tablet 0 01-24 00:00: 00 Yes [id number] 120mg Take 1 tablet by mouth in the morning. [facility] codeine-gua ifenesin 10-100 mg/5 mL oral solution 01-24 00:00: 00 Yes 5224 10mL Take 10 mL by mouth every 6 (six) hours as needed for Cough. Indication s: [facility] (CARDIZEM LA) 120 mg 24 hr tablet 0 01-24 00:00: 00 Yes [id number] 120mg Take 1 tablet by mouth in the morning. [facility] codeine-gua ifenesin 10-100 mg/5 mL oral solution 0 01-24 00:00: 00 Yes [id number] 10mL Take 10 mL by mouth every 6 (six) hours as needed for Cough. Indication s: [facility] (CARDIZEM LA) 120 mg 24 hr tablet 01-24 00:00: 00 Yes [id number] 120mg Take 1 tablet by mouth in the morning. [facility] codeine-gua ifenesin 10-100 mg/5 mL oral solution 01-24 00:00: 00 Yes 5224 10mL Take 10 mL by mouth every 6 (six) hours as needed for Cough. Indication s: chronic pain [facility] diltiazem (CARDIZEM LA) 120 mg 24 hr tablet 01-24 00:00: 00 02-12 00:00 :00 No [id number] 120mg Take 1 tablet by mouth in the morning. [facility] codeine-gua ifenesin 10-100 mg/5 mL oral solution 01-24 00:00: 00 02-12 00:00 :00 No 5224 10mL Take 10 mL by mouth every 6 (six) hours as needed for Cough. Indication s: chronic pain [facility] diltiazem (CARDIZEM LA) 120 mg 24 hr tablet 01-24 00:00: 00 02-12 00:00 :00 No [id number] 120mg Take 1 tablet by mouth in the morning. [facility] codeine-gua ifenesin 10-100 mg/5 mL oral solution 01-24 00:00: 00 02-12 00:00 :00 No 5224 10mL Take 10 mL by mouth every 6 (six) hours as needed for Cough. Indication s: chronic pain [facility] ezetimibe 10 mg tablet 01-20 00:00: 00 Yes [id number] 10mg Take 1 tablet by mouth in the morning. [facility] ezetimibe 10 mg tablet 0 01-20 00:00: 00 Yes [id number] 10mg Take 1 tablet by mouth in the morning. [facility] ezetimibe 10 mg tablet 2022-0 01-20 00:00: 00 Yes [id number] 10mg Take 1 tablet by mouth in the morning. [facility] ezetimibe 10 mg tablet 2023-0 6-08 00:00: 00 Yes [id number] 10mg Take 1 tablet by mouth in the morning. [facility] ezetimibe 10 mg tablet 3-0 6-08 00:00: 00 Yes [id number] 10mg Take 1 tablet by mouth in the morning. [facility] ezetimibe 10 mg tablet 3-0 6-08 00:00: 00 Yes [id number] 10mg Take 1 tablet by mouth in the morning. [facility] ezetimibe 10 mg tablet 3-0 6-08 00:00: 00 Yes [id number] 10mg Take 1 tablet by mouth in the morning. [facility] ezetimibe 10 mg tablet 3-0 6-08 00:00: 00 Yes [id number] 10mg Take 1 tablet by mouth in the morning. [facility] ezetimibe 10 mg tablet 3-0 6-08 00:00: 00 Yes [id number] 10mg Take 1 tablet by mouth in the morning. [facility] ezetimibe 10 mg tablet 3-0 6-08 00:00: 00 Yes [id number] 10mg Take 1 tablet by mouth in the morning. [facility] ezetimibe 10 mg tablet 3-0 6-08 00:00: 00 Yes [id number] 10mg Take 1 tablet by mouth in the morning. [facility] ezetimibe 10 mg tablet 3-0 6-08 00:00: 00 Yes [id number] 10mg Take 1 tablet by mouth in the morning. [facility] ezetimibe 10 mg tablet 3-0 6-08 00:00: 00 Yes [id number] 10mg Take 1 tablet by mouth in the morning. [facility] ezetimibe 10 mg tablet 3-0 6-08 00:00: 00 Yes [id number] 10mg Take 1 tablet by mouth in the morning. [facility] ezetimibe 10 mg tablet 3-0 6-08 00:00: 00 Yes [id number] 10mg Take 1 tablet by mouth in the morning. [facility] ezetimibe 10 mg tablet 2023-0 6-08 00:00: 00 Yes [id number] 10mg Take 1 tablet by mouth in the morning. [facility] ezetimibe 10 mg tablet 2023-0 6-08 00:00: 00 Yes [id number] 10mg Take 1 tablet by mouth in the morning. [facility] ezetimibe 10 mg tablet 2023-0 6-08 00:00: 00 Yes [id number] 10mg Take 1 tablet by mouth in the morning. [facility] ezetimibe 10 mg tablet 2023-0 6-08 00:00: 00 Yes [id number] 10mg Take 1 tablet by mouth in the morning. [facility] ezetimibe 10 mg tablet 2023-0 6-08 00:00: 00 Yes [id number] 10mg Take 1 tablet by mouth in the morning. [facility] ezetimibe 10 mg tablet 2023-0 6-08 00:00: 00 Yes [id number] 10mg Take 1 tablet by mouth in the morning. [facility] ezetimibe 10 mg tablet 2023-0 6-08 00:00: 00 Yes [id number] 10mg Take 1 tablet by mouth in the morning. [facility] ezetimibe 10 mg tablet 3-0 6-08 00:00: 00 Yes [id number] 10mg Take 1 tablet by mouth in the morning. [facility] ezetimibe 10 mg tablet 2023-0 6-08 00:00: 00 Yes [id number] 10mg Take 1 tablet by mouth in the morning. [facility] ezetimibe 10 mg tablet 2023-0 6-08 00:00: 00 Yes [id number] 10mg Take 1 tablet by mouth in the morning. [facility] ezetimibe 10 mg tablet 2023-0 6-08 00:00: 00 Yes [id number] 10mg Take 1 tablet by mouth in the morning. [facility] ezetimibe 10 mg tablet 2023-0 6-08 00:00: 00 Yes [id number] 10mg Take 1 tablet by mouth in the morning. [facility] ezetimibe 10 mg tablet 2023-0 6-08 00:00: 00 Yes [id number] 10mg Take 1 tablet by mouth in the morning. [facility] ezetimibe 10 mg tablet 3-0 6-08 00:00: 00 Yes [id number] 10mg Take 1 tablet by mouth in the morning. [facility] ezetimibe 10 mg tablet 2022-0 6-08 00:00: 00 Yes [id number] 10mg Take 1 tablet by mouth in the morning. [facility] ezetimibe 10 mg tablet 3-0 6-08 00:00: 00 Yes [id number] 10mg Take 1 tablet by mouth in the morning. [facility] ezetimibe 10 mg tablet 3-0 6-08 00:00: 00 Yes [id number] 10mg Take 1 tablet by mouth in the morning. [facility] ezetimibe 10 mg tablet 3-0 6-08 00:00: 00 Yes [id number] 10mg Take 1 tablet by mouth in the morning. [facility] ezetimibe 10 mg tablet 3-0 6-08 00:00: 00 Yes [id number] 10mg Take 1 tablet by mouth in the morning. [facility] ezetimibe 10 mg tablet 3-0 6-08 00:00: 00 Yes [id number] 10mg Take 1 tablet by mouth in the morning. [facility] ezetimibe 10 mg tablet 2022-0 6-08 00:00: 00 Yes [id number] 10mg Take 1 tablet by mouth in the morning. [facility] ezetimibe 10 mg tablet 3-0 6-08 00:00: 00 Yes [id number] 10mg Take 1 tablet by mouth in the morning. [facility] ezetimibe 10 mg tablet 3-0 6-08 00:00: 00 Yes [id number] 10mg Take 1 tablet by mouth in the morning. [facility] ezetimibe 10 mg tablet 3-0 6-08 00:00: 00 Yes [id number] 10mg Take 1 tablet by mouth in the morning. [facility] ezetimibe 10 mg tablet 3-0 6-08 00:00: 00 Yes [id number] 10mg Take 1 tablet by mouth in the morning. [facility] ezetimibe 10 mg tablet 3-0 6-08 00:00: 00 Yes [id number] 10mg Take 1 tablet by mouth in the morning. [facility] ezetimibe 10 mg tablet 3-0 6-08 00:00: 00 Yes [id number] 10mg Take 1 tablet by mouth in the morning. [facility] ezetimibe 10 mg tablet 3-0 6-08 00:00: 00 Yes [id number] 10mg Take 1 tablet by mouth in the morning. [facility] ezetimibe 10 mg tablet 3-0 6-08 00:00: 00 Yes [id number] 10mg Take 1 tablet by mouth in the morning. [facility] ezetimibe 10 mg tablet 3-0 6-08 00:00: 00 Yes [id number] 10mg Take 1 tablet by mouth in the morning. [facility] ezetimibe 10 mg tablet 2022-0 01-20 00:00: 00 Yes [id number] 10mg Take 1 tablet by mouth in the morning. [facility] ezetimibe 10 mg tablet 3-0 08 00:00: 00 Yes [id number] 10mg Take 1 tablet by mouth in the morning. [facility] ezetimibe 10 mg tablet 2022-0 08 00:00: 00 Yes [id number] 10mg Take 1 tablet by mouth in the morning. [facility] ezetimibe 10 mg tablet 3-0 -08 00:00: 00 Yes [id number] 10mg Take 1 tablet by mouth in the morning. [facility] ezetimibe 10 mg tablet 3-0 6-08 00:00: 00 Yes [id number] 10mg Take 1 tablet by mouth in the morning. [facility] ezetimibe 10 mg tablet 3-0 6-08 00:00: 00 Yes [id number] 10mg Take 1 tablet by mouth in the morning. [facility] ezetimibe 10 mg tablet 3-0 6-08 00:00: 00 Yes [id number] 10mg Take 1 tablet by mouth in the morning. [facility] ezetimibe 10 mg tablet 2023-0 6-08 00:00: 00 Yes [id number] 10mg Take 1 tablet by mouth in the morning. [facility] ezetimibe 10 mg tablet 3-0 6-08 00:00: 00 Yes [id number] 10mg Take 1 tablet by mouth in the morning. [facility] ezetimibe 10 mg tablet 3-0 6-08 00:00: 00 Yes [id number] 10mg Take 1 tablet by mouth in the morning. [facility] ezetimibe 10 mg tablet 3-0 6-08 00:00: 00 Yes [id number] 10mg Take 1 tablet by mouth in the morning. [facility] ezetimibe 10 mg tablet 3-0 6-08 00:00: 00 Yes [id number] 10mg Take 1 tablet by mouth in the morning. [facility] ezetimibe 10 mg tablet 3-0 6-08 00:00: 00 Yes [id number] 10mg Take 1 tablet by mouth in the morning. [facility] ezetimibe 10 mg tablet 3-0 6-08 00:00: 00 Yes [id number] 10mg Take 1 tablet by mouth in the morning. [facility] ezetimibe 10 mg tablet 3-0 6-08 00:00: 00 Yes [id number] 10mg Take 1 tablet by mouth in the morning. [facility] ezetimibe 10 mg tablet 3-0 6-08 00:00: 00 Yes [id number] 10mg Take 1 tablet by mouth in the morning. [facility] ezetimibe 10 mg tablet 3-0 6-08 00:00: 00 Yes [id number] 10mg Take 1 tablet by mouth in the morning. [facility] ezetimibe 10 mg tablet 3-0 6-08 00:00: 00 Yes [id number] 10mg Take 1 tablet by mouth in the morning. [facility] ezetimibe 10 mg tablet 2023-0 6-08 00:00: 00 Yes [id number] 10mg Take 1 tablet by mouth in the morning. [facility] ezetimibe 10 mg tablet 2023-0 6-08 00:00: 00 Yes [id number] 10mg Take 1 tablet by mouth in the morning. [facility] ezetimibe 10 mg tablet 3-0 6-08 00:00: 00 Yes [id number] 10mg Take 1 tablet by mouth in the morning. [facility] ezetimibe 10 mg tablet 3-0 6-08 00:00: 00 Yes [id number] 10mg Take 1 tablet by mouth in the morning. [facility] ezetimibe 10 mg tablet 3-0 6-08 00:00: 00 Yes [id number] 10mg Take 1 tablet by mouth in the morning. [facility] ezetimibe 10 mg tablet 3-0 6-08 00:00: 00 Yes [id number] 10mg Take 1 tablet by mouth in the morning. [facility] ezetimibe 10 mg tablet 3-0 6-08 00:00: 00 Yes [id number] 10mg Take 1 tablet by mouth in the morning. [facility] ezetimibe 10 mg tablet 3-0 6-08 00:00: 00 Yes [id number] 10mg Take 1 tablet by mouth in the morning. [facility] ezetimibe 10 mg tablet 3-0 608 00:00: 00 Yes [id number] 10mg Take 1 tablet by mouth in the morning. [facility] ezetimibe 10 mg tablet 3-0 6-08 00:00: 00 Yes [id number] 10mg Take 1 tablet by mouth in the morning. [facility] ezetimibe 10 mg tablet 3-0 6-08 00:00: 00 Yes [id number] 10mg Take 1 tablet by mouth in the morning. [facility] ezetimibe 10 mg tablet 3-0 6-08 00:00: 00 Yes [id number] 10mg Take 1 tablet by mouth in the morning. [facility] ezetimibe 10 mg tablet 3-0 6-08 00:00: 00 Yes [id number] 10mg Take 1 tablet by mouth in the morning. [facility] ezetimibe 10 mg tablet 3-0 6-08 00:00: 00 Yes [id number] 10mg Take 1 tablet by mouth in the morning. [facility] ezetimibe 10 mg tablet 2023-0 6-08 00:00: 00 Yes [id number] 10mg Take 1 tablet by mouth in the morning. [facility] ezetimibe 10 mg tablet 2023-0 6-08 00:00: 00 Yes [id number] 10mg Take 1 tablet by mouth in the morning. [facility] ezetimibe 10 mg tablet 2023-0 6-08 00:00: 00 Yes [id number] 10mg Take 1 tablet by mouth in the morning. [facility] ezetimibe 10 mg tablet 2023-0 6-08 00:00: 00 Yes [id number] 10mg Take 1 tablet by mouth in the morning. [facility] ezetimibe 10 mg tablet 2023-0 6-08 00:00: 00 Yes [id number] 10mg Take 1 tablet by mouth in the morning. [facility] ezetimibe 10 mg tablet 3-0 6-08 00:00: 00 Yes [id number] 10mg Take 1 tablet by mouth in the morning. [facility] ezetimibe 10 mg tablet 3-0 6-08 00:00: 00 Yes [id number] 10mg Take 1 tablet by mouth in the morning. [facility] ezetimibe 10 mg tablet 2023-0 6-08 00:00: 00 Yes [id number] 10mg Take 1 tablet by mouth in the morning. [facility] ezetimibe 10 mg tablet 3-0 6-08 00:00: 00 Yes [id number] 10mg Take 1 tablet by mouth in the morning. [facility] ezetimibe 10 mg tablet 2023-0 6-08 00:00: 00 Yes [id number] 10mg Take 1 tablet by mouth in the morning. [facility] ezetimibe 10 mg tablet 3-0 6-08 00:00: 00 Yes [id number] 10mg Take 1 tablet by mouth in the morning. [facility] ezetimibe 10 mg tablet 2023-0 6-08 00:00: 00 Yes [id number] 10mg Take 1 tablet by mouth in the morning. [facility] ezetimibe 10 mg tablet 3-0 6-08 00:00: 00 Yes [id number] 10mg Take 1 tablet by mouth in the morning. [facility] ezetimibe 10 mg tablet 2022-0 6-08 00:00: 00 Yes [id number] 10mg Take 1 tablet by mouth in the morning. [facility] ezetimibe 10 mg tablet 3-0 6-08 00:00: 00 Yes [id number] 10mg Take 1 tablet by mouth in the morning. [facility] ezetimibe 10 mg tablet 3-0 6-08 00:00: 00 Yes [id number] 10mg Take 1 tablet by mouth in the morning. [facility] ezetimibe 10 mg tablet 3-0 6-08 00:00: 00 Yes [id number] 10mg Take 1 tablet by mouth in the morning. [facility] ezetimibe 10 mg tablet 3-0 6-08 00:00: 00 Yes [id number] 10mg Take 1 tablet by mouth in the morning. [facility] ezetimibe 10 mg tablet 3-0 6-08 00:00: 00 Yes [id number] 10mg Take 1 tablet by mouth in the morning. [facility] ezetimibe 10 mg tablet 3-0 6-08 00:00: 00 Yes [id number] 10mg Take 1 tablet by mouth in the morning. [facility] ezetimibe 10 mg tablet 3-0 6-08 00:00: 00 Yes [id number] 10mg Take 1 tablet by mouth in the morning. [facility] ezetimibe 10 mg tablet 3-0 6-08 00:00: 00 Yes [id number] 10mg Take 1 tablet by mouth in the morning. [facility] ezetimibe 10 mg tablet 3-0 6-08 00:00: 00 Yes [id number] 10mg Take 1 tablet by mouth in the morning. [facility] ezetimibe 10 mg tablet 3-0 6-08 00:00: 00 Yes [id number] 10mg Take 1 tablet by mouth in the morning. [facility] ezetimibe 10 mg tablet 3-0 6-08 00:00: 00 Yes [id number] 10mg Take 1 tablet by mouth in the morning. [facility] ezetimibe 10 mg tablet 3-0 6-08 00:00: 00 Yes [id number] 10mg Take 1 tablet by mouth in the morning. [facility] ezetimibe 10 mg tablet 3-0 6-08 00:00: 00 Yes [id number] 10mg Take 1 tablet by mouth in the morning. [facility] ezetimibe 10 mg tablet 3-0 6-08 00:00: 00 Yes [id number] 10mg Take 1 tablet by mouth in the morning. [facility] ezetimibe 10 mg tablet 3-0 6-08 00:00: 00 Yes [id number] 10mg Take 1 tablet by mouth in the morning. [facility] ezetimibe 10 mg tablet 3-0 6-08 00:00: 00 Yes [id number] 10mg Take 1 tablet by mouth in the morning. [facility] ezetimibe 10 mg tablet 3-0 6-08 00:00: 00 Yes [id number] 10mg Take 1 tablet by mouth in the morning. [facility] ezetimibe 10 mg tablet 3-0 6-08 00:00: 00 Yes [id number] 10mg Take 1 tablet by mouth in the morning. [facility] ezetimibe 10 mg tablet 3-0 6-08 00:00: 00 Yes [id number] 10mg Take 1 tablet by mouth in the morning. [facility] ezetimibe 10 mg tablet 3-0 6-08 00:00: 00 Yes [id number] 10mg Take 1 tablet by mouth in the morning. [facility] ezetimibe 10 mg tablet 3-0 6-08 00:00: 00 Yes [id number] 10mg Take 1 tablet by mouth in the morning. [facility] ezetimibe 10 mg tablet 3-0 6-08 00:00: 00 Yes [id number] 10mg Take 1 tablet by mouth in the morning. [facility] ezetimibe 10 mg tablet 2023-0 6-08 00:00: 00 Yes [id number] 10mg Take 1 tablet by mouth in the morning. [facility] ezetimibe 10 mg tablet 3-0 6-08 00:00: 00 Yes [id number] 10mg Take 1 tablet by mouth in the morning. [facility] ezetimibe 10 mg tablet 3-0 6-08 00:00: 00 Yes [id number] 10mg Take 1 tablet by mouth in the morning. [facility] ezetimibe 10 mg tablet 3-0 6-08 00:00: 00 Yes [id number] 10mg Take 1 tablet by mouth in the morning. [facility] ezetimibe 10 mg tablet 3-0 6-08 00:00: 00 Yes [id number] 10mg Take 1 tablet by mouth in the morning. [facility] ezetimibe 10 mg tablet 3-0 6-08 00:00: 00 Yes [id number] 10mg Take 1 tablet by mouth in the morning. [facility] ezetimibe 10 mg tablet 3-0 6-08 00:00: 00 Yes [id number] 10mg Take 1 tablet by mouth in the morning. [facility] ezetimibe 10 mg tablet 3-0 6-08 00:00: 00 Yes [id number] 10mg Take 1 tablet by mouth in the morning. [facility] ezetimibe 10 mg tablet 3-0 6-08 00:00: 00 Yes [id number] 10mg Take 1 tablet by mouth in the morning. [facility] ezetimibe 10 mg tablet 3-0 6-08 00:00: 00 Yes [id number] 10mg Take 1 tablet by mouth in the morning. [facility] ezetimibe 10 mg tablet 3-0 6-08 00:00: 00 Yes [id number] 10mg Take 1 tablet by mouth in the morning. [facility] ezetimibe 10 mg tablet 2023-0 6-08 00:00: 00 Yes [id number] 10mg Take 1 tablet by mouth in the morning. [facility] ezetimibe 10 mg tablet 2023-0 6-08 00:00: 00 Yes [id number] 10mg Take 1 tablet by mouth in the morning. [facility] ezetimibe 10 mg tablet 2022-0 6-08 00:00: 00 Yes [id number] 10mg Take 1 tablet by mouth in the morning. [facility] ezetimibe 10 mg tablet 3-0 6-08 00:00: 00 Yes [id number] 10mg Take 1 tablet by mouth in the morning. [facility] ezetimibe 10 mg tablet 3-0 6-08 00:00: 00 Yes [id number] 10mg Take 1 tablet by mouth in the morning. [facility] ezetimibe 10 mg tablet 3-0 608 00:00: 00 Yes [id number] 10mg Take 1 tablet by mouth in the morning. [facility] ezetimibe 10 mg tablet 3-0 608 00:00: 00 Yes [id number] 10mg Take 1 tablet by mouth in the morning. [facility] ezetimibe 10 mg tablet 2022-0 08 00:00: 00 Yes [id number] 10mg Take 1 tablet by mouth in the morning. [facility] ezetimibe 10 mg tablet 2022-0 08 00:00: 00 Yes [id number] 10mg Take 1 tablet by mouth in the morning. [facility] ezetimibe 10 mg tablet 3-0 608 00:00: 00 Yes [id number] 10mg Take 1 tablet by mouth in the morning. [facility] ezetimibe 10 mg tablet 3-0 6-08 00:00: 00 Yes [id number] 10mg Take 1 tablet by mouth in the morning. [facility] ezetimibe 10 mg tablet 3-0 6-08 00:00: 00 Yes [id number] 10mg Take 1 tablet by mouth in the morning. [facility] ezetimibe 10 mg tablet 3-0 6-08 00:00: 00 Yes [id number] 10mg Take 1 tablet by mouth in the morning. [facility] ezetimibe 10 mg tablet 3-0 6-08 00:00: 00 Yes [id number] 10mg Take 1 tablet by mouth in the morning. [facility] ezetimibe 10 mg tablet 2023-0 6-08 00:00: 00 Yes [id number] 10mg Take 1 tablet by mouth in the morning. [facility] ezetimibe 10 mg tablet 2023-0 6-08 00:00: 00 Yes [id number] 10mg Take 1 tablet by mouth in the morning. [facility] ezetimibe 10 mg tablet 3-0 6-08 00:00: 00 Yes [id number] 10mg Take 1 tablet by mouth in the morning. [facility] ezetimibe 10 mg tablet 3-0 6-08 00:00: 00 Yes [id number] 10mg Take 1 tablet by mouth in the morning. [facility] ezetimibe 10 mg tablet 2023-0 6-08 00:00: 00 Yes [id number] 10mg Take 1 tablet by mouth in the morning. [facility] ezetimibe 10 mg tablet 3-0 6-08 00:00: 00 Yes [id number] 10mg Take 1 tablet by mouth in the morning. [facility] ezetimibe 10 mg tablet 3-0 6-08 00:00: 00 Yes [id number] 10mg Take 1 tablet by mouth in the morning. [facility] ezetimibe 10 mg tablet 3-0 6-08 00:00: 00 Yes [id number] 10mg Take 1 tablet by mouth in the morning. [facility] ezetimibe 10 mg tablet 3-0 6-08 00:00: 00 Yes [id number] 10mg Take 1 tablet by mouth in the morning. [facility] ezetimibe 10 mg tablet 3-0 6-08 00:00: 00 Yes [id number] 10mg Take 1 tablet by mouth in the morning. [facility] ezetimibe 10 mg tablet 3-0 6-08 00:00: 00 Yes [id number] 10mg Take 1 tablet by mouth in the morning. [facility] ezetimibe 10 mg tablet 2023-0 6-08 00:00: 00 Yes [id number] 10mg Take 1 tablet by mouth in the morning. [facility] ezetimibe 10 mg tablet 3-0 6-08 00:00: 00 Yes [id number] 10mg Take 1 tablet by mouth in the morning. [facility] ezetimibe 10 mg tablet 3-0 6-08 00:00: 00 Yes [id number] 10mg Take 1 tablet by mouth in the morning. [facility] ezetimibe 10 mg tablet 3-0 6-08 00:00: 00 Yes [id number] 10mg Take 1 tablet by mouth in the morning. [facility] ezetimibe 10 mg tablet 3-0 6-08 00:00: 00 Yes [id number] 10mg Take 1 tablet by mouth in the morning. [facility] ezetimibe 10 mg tablet 3-0 6-08 00:00: 00 Yes [id number] 10mg Take 1 tablet by mouth in the morning. [facility] ezetimibe 10 mg tablet 3-0 6-08 00:00: 00 Yes [id number] 10mg Take 1 tablet by mouth in the morning. [facility] ezetimibe 10 mg tablet 3-0 6-08 00:00: 00 Yes [id number] 10mg Take 1 tablet by mouth in the morning. [facility] ezetimibe 10 mg tablet 3-0 6-08 00:00: 00 Yes [id number] 10mg Take 1 tablet by mouth in the morning. [facility] ezetimibe 10 mg tablet 3-0 6-08 00:00: 00 Yes [id number] 10mg Take 1 tablet by mouth in the morning. [facility] ezetimibe 10 mg tablet 3-0 6-08 00:00: 00 Yes [id number] 10mg Take 1 tablet by mouth in the morning. [facility] ezetimibe 10 mg tablet 3-0 6-08 00:00: 00 Yes [id number] 10mg Take 1 tablet by mouth in the morning. [facility] ezetimibe 10 mg tablet 3-0 6-08 00:00: 00 Yes [id number] 10mg Take 1 tablet by mouth in the morning. [facility] ezetimibe 10 mg tablet 2023-0 6-08 00:00: 00 Yes [id number] 10mg Take 1 tablet by mouth in the morning. [facility] ezetimibe 10 mg tablet 3-0 6-08 00:00: 00 Yes [id number] 10mg Take 1 tablet by mouth in the morning. [facility] ezetimibe 10 mg tablet 3-0 6-08 00:00: 00 Yes [id number] 10mg Take 1 tablet by mouth in the morning. [facility] ezetimibe 10 mg tablet 2023-0 6-08 00:00: 00 Yes [id number] 10mg Take 1 tablet by mouth in the morning. [facility] ezetimibe 10 mg tablet 3-0 6-08 00:00: 00 Yes [id number] 10mg Take 1 tablet by mouth in the morning. [facility] ezetimibe 10 mg tablet 3-0 6-08 00:00: 00 Yes [id number] 10mg Take 1 tablet by mouth in the morning. [facility] ezetimibe 10 mg tablet 3-0 6-08 00:00: 00 Yes [id number] 10mg Take 1 tablet by mouth in the morning. [facility] ezetimibe 10 mg tablet 3-0 6-08 00:00: 00 Yes [id number] 10mg Take 1 tablet by mouth in the morning. [facility] ezetimibe 10 mg tablet 3-0 6-08 00:00: 00 Yes [id number] 10mg Take 1 tablet by mouth in the morning. [facility] ezetimibe 10 mg tablet 3-0 6-08 00:00: 00 Yes [id number] 10mg Take 1 tablet by mouth in the morning. [facility] ezetimibe 10 mg tablet 3-0 6-08 00:00: 00 Yes [id number] 10mg Take 1 tablet by mouth in the morning. [facility] ezetimibe 10 mg tablet 2023-0 6-08 00:00: 00 Yes [id number] 10mg Take 1 tablet by mouth in the morning. [facility] ezetimibe 10 mg tablet 2023-0 6-08 00:00: 00 08-12 00:00 :00 No [id number] 10mg Take 1 tablet by mouth in the morning. [facility] ezetimibe 10 mg tablet 01-20 00:00: 00 08-12 00:00 :00 No [id number] 10mg Take 1 tablet by mouth in the morning. [facility] apixaban (ELIQUIS) tablet 5 mg 01-18 01:00: 00 Yes 5mg 5 mg, Oral, BID, First dose on Tue01/17/23 at 2000, Until Discontinu ed, Routine
Indicatio ns: Non-Valvul ar Atrial Fibrillati on [facility] predniSONE 10 mg tablet 01-18 00:00: 00 Yes [id number] 10mg Take 1 tablet by mouth in the morning. [facility] predniSONE 10 mg tablet 01-18 00:00: 00 Yes [id number] 10mg Take 1 tablet by mouth in the morning. [facility] predniSONE 10 mg tablet 01-18 00:00: 00 Yes [id number] 10mg Take 1 tablet by mouth in the morning. [facility] predniSONE 10 mg tablet 01-18 00:00: 00 Yes [id number] 10mg Take 1 tablet by mouth in the morning. [facility] predniSONE 10 mg tablet 01-18 00:00: 00 Yes [id number] 10mg Take 1 tablet by mouth in the morning. [facility] predniSONE 10 mg tablet 01-18 00:00: 00 Yes [id number] 10mg Take 1 tablet by mouth in the morning. [facility] levothyroxi ne 100 mcg tablet 01-18 00:00: 00 02-18 04:59 :00 No [id number] 100ug Take 1 tablet by mouth every morning for 30 days. [facility] diltiazem (CARDIZEM LA) 120 mg 24 hr tablet 01-18 00:00: 00 02-18 04:59 :00 No [id number] 120mg Take 1 tablet by mouth in the morning for 30 days. [facility] warfarin (COUMADIN) 5 mg tablet 01-18 00:00: 00 02-18 04:59 :00 No [id number] 5mg Take 1 tablet by mouth every evening for 30 days. [facility] levothyroxi ne 100 mcg tablet 01-18 00:00: 00 02-18 04:59 :00 No [id number] 100ug Take 1 tablet by mouth every morning for 30 days. [facility] diltiazem (CARDIZEM LA) 120 mg 24 hr tablet 01-18 00:00: 00 02-18 04:59 :00 No [id number] 120mg Take 1 tablet by mouth in the morning for 30 days. [facility] warfarin (COUMADIN) 5 mg tablet 01-18 00:00: 00 02-18 04:59 :00 No [id number] 5mg Take 1 tablet by mouth every evening for 30 days. [facility] levothyroxi ne 100 mcg tablet 01-18 00:00: 00 02-18 04:59 :00 No [id number] 100ug Take 1 tablet by mouth every morning for 30 days. [facility] diltiazem (CARDIZEM LA) 120 mg 24 hr tablet 01-18 00:00: 00 02-18 04:59 :00 No [id number] 120mg Take 1 tablet by mouth in the morning for 30 days. [facility] warfarin (COUMADIN) 5 mg tablet 01-18 00:00: 00 02-18 04:59 :00 No [id number] 5mg Take 1 tablet by mouth every evening for 30 days. [facility] levothyroxi ne 100 mcg tablet 01-18 00:00: 00 02-18 04:59 :00 No [id number] 100ug Take 1 tablet by mouth every morning for 30 days. [facility] diltiazem (CARDIZEM LA) 120 mg 24 hr tablet 01-18 00:00: 00 02-18 04:59 :00 No [id number] 120mg Take 1 tablet by mouth in the morning for 30 days. [facility] warfarin (COUMADIN) 5 mg tablet 01-18 00:00: 00 02-18 04:59 :00 No [id number] 5mg Take 1 tablet by mouth every evening for 30 days. [facility] levothyroxi ne 100 mcg tablet 01-18 00:00: 00 02-18 04:59 :00 No [id number] 100ug Take 1 tablet by mouth every morning for 30 days. [facility] diltiazem (CARDIZEM LA) 120 mg 24 hr tablet 01-18 00:00: 00 02-18 04:59 :00 No [id number] 120mg Take 1 tablet by mouth in the morning for 30 days. [facility] warfarin (COUMADIN) 5 mg tablet 01-18 00:00: 00 02-18 04:59 :00 No [id number] 5mg Take 1 tablet by mouth every evening for 30 days. [facility] levothyroxi ne 100 mcg tablet 01-18 00:00: 00 02-18 04:59 :00 No [id number] 100ug Take 1 tablet by mouth every morning for 30 days. [facility] diltiazem (CARDIZEM LA) 120 mg 24 hr tablet 01-18 00:00: 00 02-18 04:59 :00 No [id number] 120mg Take 1 tablet by mouth in the morning for 30 days. [facility] warfarin (COUMADIN) 5 mg tablet 01-18 00:00: 00 02-18 04:59 :00 No [id number] 5mg Take 1 tablet by mouth every evening for 30 days. [facility] levothyroxi ne 100 mcg tablet 01-18 00:00: 00 02-18 04:59 :00 No [id number] 100ug Take 1 tablet by mouth every morning for 30 days. [facility] warfarin (COUMADIN) 5 mg tablet 2022-0 01-18 00:00: 00 02-18 04:59 :00 No [id number] 5mg Take 1 tablet by mouth every evening for 30 days. [facility] levothyroxi ne 100 mcg tablet 0 01-18 00:00: 00 02-18 04:59 :00 No [id number] 100ug Take 1 tablet by mouth every morning for 30 days. [facility] warfarin (COUMADIN) 5 mg tablet 0 01-18 00:00: 00 02-18 04:59 :00 No [id number] 5mg Take 1 tablet by mouth every evening for 30 days. [facility] levothyroxi ne 100 mcg tablet 0 01-18 00:00: 00 02-18 04:59 :00 No [id number] 100ug Take 1 tablet by mouth every morning for 30 days. [facility] warfarin (COUMADIN) 5 mg tablet 0 01-18 00:00: 00 02-18 04:59 :00 No [id number] 5mg Take 1 tablet by mouth every evening for 30 days. [facility] levothyroxi ne 100 mcg tablet 0 01-18 00:00: 00 02-18 04:59 :00 No [id number] 100ug Take 1 tablet by mouth every morning for 30 days. [facility] warfarin (COUMADIN) 5 mg tablet 2022-0 01-18 00:00: 00 02-18 04:59 :00 No [id number] 5mg Take 1 tablet by mouth every evening for 30 days. [facility] levothyroxi ne 100 mcg tablet 2022-0 06 00:00: 00 02-18 04:59 :00 No [id number] 100ug Take 1 tablet by mouth every morning for 30 days. [facility] warfarin (COUMADIN) 5 mg tablet 01-18 00:00: 00 02-18 04:59 :00 No [id number] 5mg Take 1 tablet by mouth every evening for 30 days. [facility] levothyroxi ne 100 mcg tablet 01-18 00:00: 00 02-18 04:59 :00 No [id number] 100ug Take 1 tablet by mouth every morning for 30 days. [facility] warfarin (COUMADIN) 5 mg tablet 01-18 00:00: 00 02-18 04:59 :00 No [id number] 5mg Take 1 tablet by mouth every evening for 30 days. [facility] levothyroxi ne 100 mcg tablet 01-18 00:00: 00 02-18 04:59 :00 No [id number] 100ug Take 1 tablet by mouth every morning for 30 days. [facility] warfarin (COUMADIN) 5 mg tablet 01-18 00:00: 00 02-18 04:59 :00 No [id number] 5mg Take 1 tablet by mouth every evening for 30 days. [facility] levothyroxi ne 100 mcg tablet 01-18 00:00: 00 02-18 04:59 :00 No [id number] 100ug Take 1 tablet by mouth every morning for 30 days. [facility] warfarin (COUMADIN) 5 mg tablet 01-18 00:00: 00 02-18 04:59 :00 No [id number] 5mg Take 1 tablet by mouth every evening for 30 days. [facility] levothyroxi ne 100 mcg tablet 01-18 00:00: 00 02-18 04:59 :00 No [id number] 100ug Take 1 tablet by mouth every morning for 30 days. [facility] warfarin (COUMADIN) 5 mg tablet 01-18 00:00: 00 02-18 04:59 :00 No [id number] 5mg Take 1 tablet by mouth every evening for 30 days. [facility] levothyroxi ne 100 mcg tablet 0 01-18 00:00: 00 02-18 04:59 :00 No [id number] 100ug Take 1 tablet by mouth every morning for 30 days. [facility] warfarin (COUMADIN) 5 mg tablet 01-18 00:00: 00 02-18 04:59 :00 No [id number] 5mg Take 1 tablet by mouth every evening for 30 days. [facility] levothyroxi ne 100 mcg tablet 01-18 00:00: 00 02-18 04:59 :00 No [id number] 100ug Take 1 tablet by mouth every morning for 30 days. [facility] warfarin (COUMADIN) 5 mg tablet 01-18 00:00: 00 02-18 04:59 :00 No [id number] 5mg Take 1 tablet by mouth every evening for 30 days. [facility] levothyroxi ne 100 mcg tablet 01-18 00:00: 00 02-18 04:59 :00 No [id number] 100ug Take 1 tablet by mouth every morning for 30 days. [facility] warfarin (COUMADIN) 5 mg tablet 01-18 00:00: 00 02-18 04:59 :00 No [id number] 5mg Take 1 tablet by mouth every evening for 30 days. [facility] levothyroxi ne 100 mcg tablet 01-18 00:00: 00 02-18 04:59 :00 No [id number] 100ug Take 1 tablet by mouth every morning for 30 days. [facility] warfarin (COUMADIN) 5 mg tablet 0 01-18 00:00: 00 02-18 04:59 :00 No [id number] [id number] 5mg Take 1 tablet by mouth every evening for 30 days. [facility] levothyroxi ne 100 mcg tablet 0 01-18 00:00: 00 02-18 04:59 :00 No [id number] 100ug Take 1 tablet by mouth every morning for 30 days. [facility] warfarin (COUMADIN) 5 mg tablet 2022-0 606 00:00: 00 02-18 04:59 :00 No [id number] [id number] 5mg Take 1 tablet by mouth every evening for 30 days. [facility] levothyroxi ne 100 mcg tablet 0 6 00:00: 00 02-18 04:59 :00 No [id number] 100ug Take 1 tablet by mouth every morning for 30 days. [facility] warfarin (COUMADIN) 5 mg tablet 0 01-18 00:00: 00 02-18 04:59 :00 No [id number] [id number] 5mg Take 1 tablet by mouth every evening for 30 days. [facility] levothyroxi ne 100 mcg tablet 0 01-18 00:00: 00 02-18 04:59 :00 No [id number] 100ug Take 1 tablet by mouth every morning for 30 days. [facility] warfarin (COUMADIN) 5 mg tablet 0 01-18 00:00: 00 02-18 04:59 :00 No [id number] [id number] 5mg Take 1 tablet by mouth every evening for 30 days. [facility] levothyroxi ne 100 mcg tablet 0 01-18 00:00: 00 02-18 04:59 :00 No [id number] 100ug Take 1 tablet by mouth every morning for 30 days. [facility] warfarin (COUMADIN) 5 mg tablet 0 01-18 00:00: 00 02-18 04:59 :00 No [id number] [id number] 5mg Take 1 tablet by mouth every evening for 30 days. [facility] levothyroxi ne 100 mcg tablet 0 01-18 00:00: 00 02-18 04:59 :00 No [id number] 100ug Take 1 tablet by mouth every morning for 30 days. [facility] warfarin (COUMADIN) 5 mg tablet 2022-0 01-18 00:00: 00 02-18 04:59 :00 No [id number] 5mg Take 1 tablet by mouth every evening for 30 days. [facility] codeine-gua ifenesin 10-100 mg/5 mL oral solution 6-06 00:00: 00 01-26 04:59 :00 No [id number] 10mL Take 10 mL by mouth every 6 (six) hours as needed for Cough for up to 7 days. Indication s: [facility] code[facility]-gua ifenesin 10-100 mg/5 mL oral solution 6-06 00:00: 00 01-26 04:59 :00 No [id number] 10mL Take 10 mL by mouth every 6 (six) hours as needed for Cough for up to 7 days. Indication s: chronic pain [facility] codeine-gua ifenesin 10-100 mg/5 mL oral solution 606 00:00: 00 01-26 04:59 :00 No [id number] 10mL Take 10 mL by mouth every 6 (six) hours as needed for Cough for up to 7 days. Indication s: chronic pain [facility] codeine-gua ifenesin 10-100 mg/5 mL oral solution 606 00:00: 00 01-26 04:59 :00 No [id number] 10mL Take 10 mL by mouth every 6 (six) hours as needed for Cough for up to 7 days. Indication s: chronic pain [facility] codeine-gua ifenesin 10-100 mg/5 mL oral solution 6-06 00:00: 00 01-26 04:59 :00 No [id number] 10mL Take 10 mL by mouth every 6 (six) hours as needed for Cough for up to 7 days. Indication s: chronic pain [facility] codeine-gua ifenesin 10-100 mg/5 mL oral solution 6-06 00:00: 00 01-26 04:59 :00 No [id number] 10mL Take 10 mL by mouth every 6 (six) hours as needed for Cough for up to 7 days. Indication s: chronic pain [facility] codeine-gua ifenesin 10-100 mg/5 mL oral solution 0 6-06 00:00: 00 01-26 04:59 :00 No [id number] 10mL Take 10 mL by mouth every 6 (six) hours as needed for Cough for up to 7 days. Indication s: chronic pain [facility] codeine-gua ifenesin 10-100 mg/5 mL oral solution 0 606 00:00: 00 01-24 00:00 :00 No [id number] 10mL Take 10 mL by mouth every 6 (six) hours as needed for Cough for up to 7 days. Indication s: chronic pain [facility] diltiazem (CARDIZEM LA) 120 mg 24 hr tablet 01-18 00:00: 00 01-24 00:00 :00 No [id number] 120mg Take 1 tablet by mouth in the morning for 30 days. [facility] predniSONE 10 mg tablet 01-18 00:00: 00 01-24 00:00 :00 No [id number] 10mg Take 1 tablet by mouth in the morning. [facility] codeine-gua ifenesin 10-100 mg/5 mL oral solution 01-18 00:00: 00 01-24 00:00 :00 No [id number] 10mL Take 10 mL by mouth every 6 (six) hours as needed for Cough for up to 7 days. Indication s: chronic pain [facility] diltiazem (CARDIZEM LA) 120 mg 24 hr tablet 0 01-18 00:00: 00 01-24 00:00 :00 No [id number] 120mg Take 1 tablet by mouth in the morning for 30 days. [facility] predniSONE 10 mg tablet 0 01-18 00:00: 00 01-24 00:00 :00 No [id number] 10mg Take 1 tablet by mouth in the morning. [facility] codeine-gua ifenesin 10-100 mg/5 mL oral solution 2022-0 06 00:00: 00 01-24 00:00 :00 No [id number] 10mL Take 10 mL by mouth every 6 (six) hours as needed for Cough for up to 7 days. Indication s: chronic pain [facility] diltiazem (CARDIZEM LA) 120 mg 24 hr tablet 01-18 00:00: 00 01-24 00:00 :00 No [id number] 120mg Take 1 tablet by mouth in the morning for 30 days. [facility] predniSONE 10 mg tablet 01-18 00:00: 00 01-24 00:00 :00 No [id number] 10mg Take 1 tablet by mouth in the morning. [facility] codeine-gua ifenesin 10-100 mg/5 mL oral solution 01-18 00:00: 00 01-24 00:00 :00 No [id number] 10mL Take 10 mL by mouth every 6 (six) hours as needed for Cough for up to 7 days. Indication s: chronic pain [facility] diltiazem (CARDIZEM LA) 120 mg 24 hr tablet 01-18 00:00: 00 01-24 00:00 :00 No [id number] 120mg Take 1 tablet by mouth in the morning for 30 days. [facility] predniSONE 10 mg tablet 01-18 00:00: 00 01-24 00:00 :00 No [id number] 10mg Take 1 tablet by mouth in the morning. [facility] apixaban 5 mg tablet 01-18 00:00: 00 01-18 00:00 :00 No [id number] 5mg Take 1 tablet by mouth in the morning and 1 tablet in the evening. Do all this for 30 days. Indication s: prevention of thromboemb olism in paroxysmal atrial fibrillati on [facility] apixaban 5 mg tablet 01-18 00:00: 00 01-18 00:00 :00 No [id number] 5mg Take 1 tablet by mouth in the morning and 1 tablet in the evening. Do all this for 30 days. Indication s: prevention of thromboemb olism in paroxysmal atrial fibrillati on [facility] codeine-gua ifenesin (ROBITUSSIN AC) 10-100 mg/5 mL oral solution 10 mL 01-17 20:12: 17 Yes 10mL 10 mL, Oral, Q6HPRN, Starting on Tue01/17/23 at 1512, Until Discontinu ed, Routine, Cough [facility] [facility]LASIX[facility] 20 mg 01-17 14:00: 00 01-17 13:11 :31 No 20mg 20 mg, IV Push, DAILY, First dose on Tue01/17/23 at 0900, Until Discontinu ed, Routine [facility] diltiazem (CARDIZEM IV) injection 10 mg 01-17 01:20: 18 Yes 10mg 10 mg, Slow IV Push, Q6HPRN, Starting on Tue01/16/23 at 2019, Until Discontinu ed, Routine, For sustained HR > 120. Hold for SBP < 110, DBP < 60
Facu lty member approving Restricted medication : KODAK BARNES [facility] ondansetron (ZOFRAN (PF)) injection 4 mg 01-17 01:10: 46 Yes 4mg 4 mg, Slow IV Push, Q6HPRN, Starting on Tue01/16/23 at 2009, Until Discontinu ed, Routine, Nausea and Vomiting (N/V) [facility] morpHINE (2 mg/mL) injection 2 mg 01-17 01:10: 39 Yes 2mg 2 mg, Slow IV Push, Q4HPRN, Starting on Tue01/16/23 at 2009, Until Discontinu ed, Routine, Pain (scale 7-10) [facility] traMADoL (ULTRAM) tablet 50 mg 01-17 01:10: 36 Yes 50mg 50 mg, Oral, Q6HPRN, Starting on Tue01/16/23 at 2009, Until Discontinu ed, Routine, Pain (scale 4-6) [facility] acetaminoph en (TYLENOL) tablet 650 mg 01-17 01:10: 31 Yes 650mg 650 mg, Oral, Q6HPRN, Starting on Tue01/16/23 at 2009, Until Discontinu ed, Routine, Pain (scale 1-3) [facility] carvediloL (COREG) tablet 25 mg 01-17 01:00: 00 Yes 25mg 25 mg, Oral, BID MEALS, First dose (after last modificati on) on Tue01/16/23 at 1999, Until Discontinu ed, Routine [facility] enoxaparin (LOVENOX) injection 60 mg 01-17 01:00: 00 01-17 15:06 :16 No 1mg/kg 60 mg (rounded from 64.4 mg = 1 mg/kg ?64.4 kg), Subcutaneo us, Q12H, First dose on Tue01/16/23 at 1999, Until Discontinu ed, Routine [facility] diltiazem (CARDIZEM) tablet 30 mg 01-16 22:45: 00 Yes 30mg 30 mg, Oral, Q6H, First dose on Tue01/16/23 at 1745, Until Discontinu ed, Routine [facility] diltiazem (CARDIZEM IV) injection 15 mg 01-16 20:15: 00 01-16 20:25 :00 No 15mg 15 mg, IV Push, ONCE, 1 dose, On Tue01/16/23 at 1515, STAT
Fa culty member approving Restricted medication : GARCIA HANSEN [facility] diltiazem (CARDIZEM IV) injection 20 mg 01-16 19:45: 00 01-16 19:45 :00 No 20mg 20 mg, IV Push, ONCE, 1 dose, On Tue01/16/23 at 1445, STAT
Fa culty member approving Restricted medication : GARCIA HANSEN [facility] aspirin tablet 325 mg 01-16 19:45: 00 01-16 19:45 :00 No 325mg 325 mg, Oral, ONCE, 1 dose, On 01/16/23 at 1445, STAT [facility] HYDROcodone -acetaminop hen 5-325 mg tablet 01-14 14:06: 05 01-14 00:00 :00 No 1{tbl} Take 1 tablet by mouth every 6 (six) hours as needed. [facility] HYDROcodone -acetaminop hen 5-325 mg tablet 01-14 14:06: 05 01-14 00:00 :00 No 1{tbl} Take 1 tablet by mouth every 6 (six) hours as needed. [facility] HYDROcodone -acetaminop hen 5-325 mg tablet 01-14 14:06: 05 01-14 00:00 :00 No 1{tbl} Take 1 tablet by mouth every 6 (six) hours as needed. [facility] losartan 100 mg tablet 01-14 00:00: 00 Yes [id number] 100mg Take 1 tablet by mouth in the morning. [facility] losartan 100 mg tablet 01-14 00:00: 00 Yes [id number] 100mg Take 1 tablet by mouth in the morning. [facility] losartan 100 mg tablet 01-14 00:00: 00 Yes [id number] 100mg Take 1 tablet by mouth in the morning. [facility] losartan 100 mg tablet 01-14 00:00: 00 Yes [id number] 100mg Take 1 tablet by mouth in the morning. [facility] predniSONE 10 mg tablet 01-14 00:00: 00 01-20 04:59 :00 No [id number] 10mg Take 1 tablet by mouth in the morning for 5 days. [facility] predniSONE 10 mg tablet 01-14 00:00: 00 01-20 04:59 :00 No [id number] 10mg Take 1 tablet by mouth in the morning for 5 days. [facility] predniSONE 10 mg tablet 01-14 00:00: 00 01-20 04:59 :00 No [id number] 10mg Take 1 tablet by mouth in the morning for 5 days. [facility] predniSONE 10 mg tablet 01-14 00:00: 00 01-20 04:59 :00 No [id number] 10mg Take 1 tablet by mouth in the morning for 5 days. [facility] losartan 100 mg tablet 0 - 00:00: 00 01-18 00:00 :00 No [id number] 100mg Take 1 tablet by mouth in the morning. [facility] predniSONE 10 mg tablet 01-14 00:00: 00 01-18 00:00 :00 No [id number] 10mg Take 1 tablet by mouth in the morning for 5 days. [facility] losartan 100 mg tablet 01-14 00:00: 00 01-18 00:00 :00 No [id number] 100mg Take 1 tablet by mouth in the morning. [facility] predniSONE 10 mg tablet 01-14 00:00: 00 01-18 00:00 :00 No [id number] 10mg Take 1 tablet by mouth in the morning for 5 days. [facility] NaCl 0.9% (NS) bolus infusion 500 mL 10-27 00:30: 00 10-26 23:56 :00 No 500mL at 999 mL/hr, 500 mL, IV Infusion, ONCE, 1 dose, On Tue10/26/22 at 1930, STAT [facility] hydralAZINE (APRESOLINE ) injection 10 mg 10-26 23:15: 00 10-26 23:20 :00 No 10mg 10 mg, Slow IV Push, ONCE, 1 dose, On Tue10/26/22 at 1815, KRISTOPHER [facility] ondansetron (ZOFRAN (PF)) injection 4 mg 10-26 22:30: 00 10-26 21:39 :00 No 4mg 4 mg, Slow IV Push, ONCE, 1 dose, On Tue10/26/22 at 1730, KRISTOPHER [facility] morpHINE (2 mg/mL) injection 4 mg 10-26 22:30: 00 10-26 21:39 :00 No 4mg 4 mg, Slow IV Push, ONCE, 1 dose, On Tue10/26/22 at 1730, STAT [facility] levothyroxi ne 112 mcg tablet 09-13 00:00: 00 Yes [id number] 112ug Take 1 tablet by mouth every morning. [facility] levothyroxi ne 112 mcg tablet 09-13 00:00: 00 Yes [id number] 112ug Take 1 tablet by mouth every morning. [facility] levothyroxi ne 112 mcg tablet 09-13 00:00: 00 Yes [id number] 112ug Take 1 tablet by mouth every morning. [facility] levothyroxi ne 112 mcg tablet 09-13 00:00: 00 Yes [id number] 112ug Take 1 tablet by mouth every morning. [facility] levothyroxi ne 112 mcg tablet 09-13 00:00: 00 Yes [id number] 112ug Take 1 tablet by mouth every morning. [facility] levothyroxi ne 112 mcg tablet 09-13 00:00: 00 Yes [id number] 112ug Take 1 tablet by mouth every morning. [facility] levothyroxi ne 112 mcg tablet 09-13 00:00: 00 Yes [id number] 112ug Take 1 tablet by mouth every morning. [facility] levothyroxi ne 112 mcg tablet 09-13 00:00: 00 Yes [id number] 112ug Take 1 tablet by mouth every morning. [facility] levothyroxi ne 112 mcg tablet 09-13 00:00: 00 Yes [id number] 112ug Take 1 tablet by mouth every morning. [facility] levothyroxi ne 112 mcg tablet 09-13 00:00: 00 Yes [id number] 112ug Take 1 tablet by mouth every morning. [facility] levothyroxi ne 112 mcg tablet 09-13 00:00: 00 Yes [id number] 112ug Take 1 tablet by mouth every morning. [facility] levothyroxi ne 112 mcg tablet 09-13 00:00: 00 Yes [id number] 112ug Take 1 tablet by mouth every morning. [facility] levothyroxi ne 112 mcg tablet 09-13 00:00: 00 Yes [id number] 112ug Take 1 tablet by mouth every morning. [facility] levothyroxi ne 112 mcg tablet 09-13 00:00: 00 Yes [id number] 112ug Take 1 tablet by mouth every morning. [facility] levothyroxi ne 112 mcg tablet 09-13 00:00: 00 01-18 00:00 :00 No [id number] 112ug Take 1 tablet by mouth every morning. [facility] levothyroxi ne 112 mcg tablet 09-13 00:00: 00 01-18 00:00 :00 No [id number] 112ug Take 1 tablet by mouth every morning. [facility] HYDROcodone -acetaminop hen (NORCO) 5-325 mg tablet 09-09 11:50: 17 Yes 1{tbl} Take 1 tablet by mouth every 6 (six) hours as needed. [facility] HYDROcodone -acetaminop hen (NORCO) 5-325 mg tablet 09-09 11:50: 17 Yes 1{tbl} Take 1 tablet by mouth every 6 (six) hours as needed. [facility] HYDROcodone -acetaminop hen (NORCO) 5-325 mg tablet 09-09 11:50: 17 Yes 1{tbl} Take 1 tablet by mouth every 6 (six) hours as needed. [facility] HYDROcodone -acetaminop hen (NORCO) 5-325 mg tablet 09-09 11:50: 17 Yes 1{tbl} Take 1 tablet by mouth every 6 (six) hours as needed. [facility] HYDROcodone -acetaminop hen (NORCO) 5-325 mg tablet 09-09 11:50: 17 Yes 1{tbl} Take 1 tablet by mouth every 6 (six) hours as needed. [facility] HYDROcodone -acetaminop hen (NORCO) 5-325 mg tablet 09-09 11:50: 17 Yes 1{tbl} Take 1 tablet by mouth every 6 (six) hours as needed. [facility] HYDROcodone -acetaminop hen (NORCO) 5-325 mg tablet 09-09 11:50: 17 Yes 1{tbl} Take 1 tablet by mouth every 6 (six) hours as needed. [facility] HYDROcodone -acetaminop hen (NORCO) 5-325 mg tablet 09-09 11:50: 17 Yes 1{tbl} Take 1 tablet by mouth every 6 (six) hours as needed. [facility] HYDROcodone -acetaminop hen (NORCO) 5-325 mg tablet 09-09 11:50: 17 Yes 1{tbl} Take 1 tablet by mouth every 6 (six) hours as needed. [facility] HYDROcodone -acetaminop hen (NORCO) 5-325 mg tablet 09-09 11:50: 17 Yes 1{tbl} Take 1 tablet by mouth every 6 (six) hours as needed. [facility] HYDROcodone -acetaminop hen (NORCO) 5-325 mg tablet 09-09 11:50: 17 Yes 1{tbl} Take 1 tablet by mouth every 6 (six) hours as needed. [facility] HYDROcodone -acetaminop hen (NORCO) 5-325 mg tablet 09-09 11:50: 17 Yes 1{tbl} Take 1 tablet by mouth every 6 (six) hours as needed. [facility] HYDROcodone -acetaminop hen (NORCO) 5-325 mg tablet 09-09 11:50: 17 Yes 1{tbl} Take 1 tablet by mouth every 6 (six) hours as needed. [facility] HYDROcodone -acetaminop hen (NORCO) 5-325 mg tablet 09-09 11:50: 17 Yes 1{tbl} Take 1 tablet by mouth every 6 (six) hours as needed. [facility] HYDROcodone -acetaminop hen (NORCO) 5-325 mg tablet 0 09-09 11:50: 17 Yes 1{tbl} Take 1 tablet by mouth every 6 (six) hours as needed. [facility] carvediloL 25 mg tablet 3-0 09-09 00:00: 00 Yes [id number] 25mg Take 1 tablet by mouth in the morning and 1 tablet in the evening. Take with meals. [facility] carvediloL 25 mg tablet 3-0 09-09 00:00: 00 Yes [id number] 25mg Take 1 tablet by mouth in the morning and 1 tablet in the evening. Take with meals. [facility] carvediloL 25 mg tablet 3-0 09-09 00:00: 00 Yes [id number] 25mg Take 1 tablet by mouth in the morning and 1 tablet in the evening. Take with meals. [facility] carvediloL 25 mg tablet 3-0 09-09 00:00: 00 Yes [id number] 25mg Take 1 tablet by mouth in the morning and 1 tablet in the evening. Take with meals. [facility] carvediloL 25 mg tablet 3-0 09-09 00:00: 00 Yes [id number] 25mg Take 1 tablet by mouth in the morning and 1 tablet in the evening. Take with meals. [facility] carvediloL 25 mg tablet 3-0 09-09 00:00: 00 Yes [id number] 25mg Take 1 tablet by mouth in the morning and 1 tablet in the evening. Take with meals. [facility] carvediloL 25 mg tablet 3-0 09-09 00:00: 00 Yes [id number] 25mg Take 1 tablet by mouth in the morning and 1 tablet in the evening. Take with meals. [facility] carvediloL 25 mg tablet 3-0 09-09 00:00: 00 Yes [id number] 25mg Take 1 tablet by mouth in the morning and 1 tablet in the evening. Take with meals. [facility] carvediloL 25 mg tablet 3-0 09-09 00:00: 00 Yes [id number] 25mg Take 1 tablet by mouth in the morning and 1 tablet in the evening. Take with meals. [facility] carvediloL 25 mg tablet 2023-0 26 00:00: 00 Yes [id number] 25mg Take 1 tablet by mouth in the morning and 1 tablet in the evening. Take with meals. [facility] carvediloL 25 mg tablet 3-0 - 00:00: 00 Yes [id number] 25mg Take 1 tablet by mouth in the morning and 1 tablet in the evening. Take with meals. [facility] carvediloL 25 mg tablet 3-0 26 00:00: 00 Yes [id number] 25mg Take 1 tablet by mouth in the morning and 1 tablet in the evening. Take with meals. [facility] carvediloL 25 mg tablet 3-0 09-09 00:00: 00 Yes [id number] 25mg Take 1 tablet by mouth in the morning and 1 tablet in the evening. Take with meals. [facility] carvediloL 25 mg tablet 3-0 09-09 00:00: 00 Yes [id number] 25mg Take 1 tablet by mouth in the morning and 1 tablet in the evening. Take with meals. [facility] carvediloL 25 mg tablet 3-0 26 00:00: 00 Yes [id number] 25mg Take 1 tablet by mouth in the morning and 1 tablet in the evening. Take with meals. [facility] carvediloL 25 mg tablet 3-0 09-09 00:00: 00 Yes [id number] 25mg Take 1 tablet by mouth in the morning and 1 tablet in the evening. Take with meals. [facility] carvediloL 25 mg tablet 3-0 26 00:00: 00 Yes [id number] 25mg Take 1 tablet by mouth in the morning and 1 tablet in the evening. Take with meals. [facility] carvediloL 25 mg tablet 3-0 26 00:00: 00 Yes [id number] 25mg Take 1 tablet by mouth in the morning and 1 tablet in the evening. Take with meals. [facility] carvediloL 25 mg tablet 3-0 -26 00:00: 00 Yes [id number] 25mg Take 1 tablet by mouth in the morning and 1 tablet in the evening. Take with meals. [facility] carvediloL 25 mg tablet 2023-0 26 00:00: 00 Yes [id number] 25mg Take 1 tablet by mouth in the morning and 1 tablet in the evening. Take with meals. [facility] carvediloL 25 mg tablet 2023-0 -26 00:00: 00 Yes [id number] 25mg Take 1 tablet by mouth in the morning and 1 tablet in the evening. Take with meals. [facility] carvediloL 25 mg tablet 3-0 26 00:00: 00 Yes [id number] 25mg Take 1 tablet by mouth in the morning and 1 tablet in the evening. Take with meals. [facility] carvediloL 25 mg tablet 3-0 -26 00:00: 00 Yes [id number] 25mg Take 1 tablet by mouth in the morning and 1 tablet in the evening. Take with meals. [facility] carvediloL 25 mg tablet 3-0 09-09 00:00: 00 Yes [id number] 25mg Take 1 tablet by mouth in the morning and 1 tablet in the evening. Take with meals. [facility] carvediloL 25 mg tablet 3-0 26 00:00: 00 Yes [id number] 25mg Take 1 tablet by mouth in the morning and 1 tablet in the evening. Take with meals. [facility] carvediloL 25 mg tablet 3-0 26 00:00: 00 Yes [id number] 25mg Take 1 tablet by mouth in the morning and 1 tablet in the evening. Take with meals. [facility] carvediloL 25 mg tablet 3-0 26 00:00: 00 Yes [id number] 25mg Take 1 tablet by mouth in the morning and 1 tablet in the evening. Take with meals. [facility] carvediloL 25 mg tablet 2023-0 -26 00:00: 00 Yes [id number] 25mg Take 1 tablet by mouth in the morning and 1 tablet in the evening. Take with meals. [facility] carvediloL 25 mg tablet 2023-0 -26 00:00: 00 Yes [id number] 25mg Take 1 tablet by mouth in the morning and 1 tablet in the evening. Take with meals. [facility] carvediloL 25 mg tablet 2022-0 09-09 00:00: 00 Yes [id number] 25mg Take 1 tablet by mouth in the morning and 1 tablet in the evening. Take with meals. [facility] carvediloL 25 mg tablet 2022-0 09-09 00:00: 00 Yes [id number] 25mg Take 1 tablet by mouth in the morning and 1 tablet in the evening. Take with meals. [facility] carvediloL 25 mg tablet 0 09-09 00:00: 00 Yes [id number] 25mg Take 1 tablet by mouth in the morning and 1 tablet in the evening. Take with meals. [facility] carvediloL 25 mg tablet 0 09-09 00:00: 00 Yes [id number] 25mg Take 1 tablet by mouth in the morning and 1 tablet in the evening. Take with meals. [facility] carvediloL 25 mg tablet 09-09 00:00: 00 Yes [id number] 25mg Take 1 tablet by mouth in the morning and 1 tablet in the evening. Take with meals. [facility] levothyroxi ne 125 mcg tablet 09-09 00:00: 00 Yes [id number] 125ug Take 1 tablet by mouth every morning. [facility] carvediloL 25 mg tablet 0 09-09 00:00: 00 Yes [id number] 25mg Take 1 tablet by mouth in the morning and 1 tablet in the evening. Take with meals. [facility] levothyroxi ne 125 mcg tablet 09-09 00:00: 00 Yes [id number] 125ug Take 1 tablet by mouth every morning. [facility] carvediloL 25 mg tablet 0 09-09 00:00: 00 Yes [id number] 25mg Take 1 tablet by mouth in the morning and 1 tablet in the evening. Take with meals. [facility] levothyroxi ne 125 mcg tablet 09-09 00:00: 00 Yes [id number] 125ug Take 1 tablet by mouth every morning. [facility] carvediloL 25 mg tablet 09-09 00:00: 00 Yes [id number] 25mg Take 1 tablet by mouth in the morning and 1 tablet in the evening. Take with meals. [facility] levothyroxi ne 125 mcg tablet 09-09 00:00: 00 Yes [id number] 125ug Take 1 tablet by mouth every morning. [facility] carvediloL 25 mg tablet 09-09 00:00: 00 Yes [id number] 25mg Take 1 tablet by mouth in the morning and 1 tablet in the evening. Take with meals. [facility] carvediloL 25 mg tablet 09-09 00:00: 00 Yes [id number] 25mg Take 1 tablet by mouth in the morning and 1 tablet in the evening. Take with meals. [facility] carvediloL 25 mg tablet 09-09 00:00: 00 Yes [id number] 25mg Take 1 tablet by mouth in the morning and 1 tablet in the evening. Take with meals. [facility] carvediloL 25 mg tablet 09-09 00:00: 00 02-12 00:00 :00 No [id number] 25mg Take 1 tablet by mouth in the morning and 1 tablet in the evening. Take with meals. [facility] carvediloL 25 mg tablet 09-09 00:00: 00 02-12 00:00 :00 No [id number] 25mg Take 1 tablet by mouth in the morning and 1 tablet in the evening. Take with meals. [facility] levothyroxi ne 125 mcg tablet 09-09 00:00: 00 09-13 00:00 :00 No [id number] 125ug Take 1 tablet by mouth every morning. [facility] HYDROcodone -acetaminop hen (NORCO 5) 5-325 mg tablet 1 tablet 08-27 05:15: 00 08-27 04:40 :00 No 1{tbl} 1 tablet, Oral, ONCE, 1 dose, On [facility] 08/26/22 at 2315, KRISTOPHER [facility] ketorolac (TORADOL) injection 15 mg 08-27 05:15: 00 08-27 04:43 :00 No 15mg 15 mg, Intramuscu lar, ONCE, 1 dose, On [facility] 08/26/22 at 2315, Routine [facility] dexamethaso ne sod phos PF injection 10 mg 08-27 04:30: 00 08-27 04:40 :00 No 10mg 10 mg, Intramuscu lar, ONCE, 1 dose, On [place] 08/26/22 at 2230, 1 mL [facility] doxycycline hyclate 100 mg tablet 08-19 00:00: 00 08-27 05:59 :00 No [id number] 100mg Take 1 tablet by mouth in the morning and 1 tablet in the evening. Do all this for 7 days. [facility] benzonatate 100 mg capsule 08-19 00:00: 00 08-27 05:59 :00 No [id number] 100mg Take 1 capsule by mouth 3 (three) times daily as needed for Cough for up to 7 days. [facility] doxycycline hyclate 100 mg tablet 08-19 00:00: 00 08-27 05:59 :00 No [id number] 100mg Take 1 tablet by mouth in the morning and 1 tablet in the evening. Do all this for 7 days. [facility] benzonatate 100 mg capsule 08-19 00:00: 00 08-27 05:59 :00 No [id number] 100mg Take 1 capsule by mouth 3 (three) times daily as needed for Cough for up to 7 days. [facility] LEVOTHYROXI NE 125 mcg tablet 2021-08 00:00: 00 Yes [id number] TAKE ONE TABLET BY MOUTH EVERY MORNING [facility] LEVOTHYROXI NE 125 mcg tablet 2021-08 00:00: 00 Yes [id number] TAKE ONE TABLET BY MOUTH EVERY MORNING [facility] LEVOTHYROXI NE 125 mcg tablet 2021-08 00:00: 00 Yes [id number] TAKE ONE TABLET BY MOUTH EVERY MORNING [facility] LEVOTHYROXI NE 125 mcg tablet 2021-08 00:00: 00 09-09 00:00 :00 No [id number] TAKE ONE TABLET BY MOUTH EVERY MORNING [facility] LEVOTHYROXI NE 125 mcg tablet 2021-08 00:00: 00 09-09 00:00 :00 No [id number] TAKE ONE TABLET BY MOUTH EVERY MORNING [facility] LEVOTHYROXI NE 125 mcg tablet 2021-08 00:00: 00 09-09 00:00 :00 No [id number] TAKE ONE TABLET BY MOUTH EVERY MORNING [facility] naproxen 500 mg tablet 04-02 00:00: 00 Yes [id number] 500mg Take 1 tablet by mouth every 8 (eight) hours as needed for Pain (scale 4-6). [facility] naproxen 500 mg tablet 04-02 00:00: 00 Yes [id number] 500mg Take 1 tablet by mouth every 8 (eight) hours as needed for Pain (scale 4-6). [facility] naproxen 500 mg tablet 04-02 00:00: 00 Yes [id number] 500mg Take 1 tablet by mouth every 8 (eight) hours as needed for Pain (scale 4-6). [facility] naproxen 500 mg tablet 04-02 00:00: 00 Yes [id number] 500mg Take 1 tablet by mouth every 8 (eight) hours as needed for Pain (scale 4-6). [facility] naproxen 500 mg tablet 04-02 00:00: 00 08-26 00:00 :00 No [id number] 500mg Take 1 tablet by mouth every 8 (eight) hours as needed for Pain (scale 4-6). [facility] atorvastati n 80 mg tablet 02-02 00:00: 00 Yes [id number] 80mg Take 1 tablet by mouth at bedtime. [facility] atorvastati n 80 mg tablet 0 02-02 00:00: 00 Yes [id number] 80mg Take 1 tablet by mouth at bedtime. [facility] atorvastati n 80 mg tablet 0 02-02 00:00: 00 Yes [id number] 80mg Take 1 tablet by mouth at bedtime. [facility] atorvastati n 80 mg tablet 0 02-02 00:00: 00 Yes [id number] 80mg Take 1 tablet by mouth at bedtime. [facility] atorvastati n 80 mg tablet 0 02-02 00:00: 00 Yes [id number] 80mg Take 1 tablet by mouth at bedtime. [facility] atorvastati n 80 mg tablet 0 02-02 00:00: 00 Yes [id number] 80mg Take 1 tablet by mouth at bedtime. [facility] atorvastati n 80 mg tablet 0 02-02 00:00: 00 Yes [id number] 80mg Take 1 tablet by mouth at bedtime. [facility] atorvastati n 80 mg tablet 0 02-02 00:00: 00 Yes [id number] 80mg Take 1 tablet by mouth at bedtime. [facility] atorvastati n 80 mg tablet 0 02-02 00:00: 00 Yes [id number] 80mg Take 1 tablet by mouth at bedtime. [facility] atorvastati n 80 mg tablet 0 02-02 00:00: 00 Yes [id number] 80mg Take 1 tablet by mouth at bedtime. [facility] atorvastati n 80 mg tablet 0 02-02 00:00: 00 Yes [id number] 80mg Take 1 tablet by mouth at bedtime. [facility] atorvastati n 80 mg tablet 0 02-02 00:00: 00 Yes [id number] 80mg Take 1 tablet by mouth at bedtime. [facility] atorvastati n 80 mg tablet 2021-0 02-02 00:00: 00 Yes [id number] 80mg Take 1 tablet by mouth at bedtime. [facility] atorvastati n 80 mg tablet 2021-0 02-02 00:00: 00 Yes [id number] 80mg Take 1 tablet by mouth at bedtime. [facility] atorvastati n 80 mg tablet 0 02-02 00:00: 00 Yes [id number] 80mg Take 1 tablet by mouth at bedtime. [facility] atorvastati n 80 mg tablet 0 02-02 00:00: 00 Yes [id number] 80mg Take 1 tablet by mouth at bedtime. [facility] atorvastati n 80 mg tablet 0 02-02 00:00: 00 Yes [id number] 80mg Take 1 tablet by mouth at bedtime. [facility] atorvastati n 80 mg tablet 0 02-02 00:00: 00 Yes [id number] 80mg Take 1 tablet by mouth at bedtime. [facility] atorvastati n 80 mg tablet 0 02-02 00:00: 00 Yes [id number] 80mg Take 1 tablet by mouth at bedtime. [facility] mg tablet 0 02-02 00:00: 00 Yes [id number] 80mg Take 1 tablet by mouth at bedtime. [facility] mg tablet 0 02-02 00:00: 00 Yes [id number] 80mg Take 1 tablet by mouth at bedtime. [facility] 80 mg tablet 0 02-02 00:00: 00 Yes [id number] 80mg Take 1 tablet by mouth at bedtime. [facility] 80 mg tablet 0 02-02 00:00: 00 Yes [id number] 80mg Take 1 tablet by mouth at bedtime. [facility] 80 mg tablet 0 02-02 00:00: 00 Yes [id number] 80mg Take 1 tablet by mouth at bedtime. [facility] 80 mg tablet 2021-0 02-02 00:00: 00 Yes [id number] 80mg Take 1 tablet by mouth at bedtime. [facility] 80 mg tablet 0 02-02 00:00: 00 Yes [id number] 80mg Take 1 tablet by mouth at bedtime. [facility] 80 mg tablet 0 02-02 00:00: 00 Yes [id number] 80mg Take 1 tablet by mouth at bedtime. [facility] 80 mg tablet 0 02-02 00:00: 00 Yes [id number] 80mg Take 1 tablet by mouth at bedtime. [facility] 80 mg tablet 0 02-02 00:00: 00 Yes [id number] 80mg Take 1 tablet by mouth at bedtime. [facility] 80 mg tablet 0 02-02 00:00: 00 Yes [id number] 80mg Take 1 tablet by mouth at bedtime. [facility] 80 mg tablet 0 02-02 00:00: 00 Yes [id number] 80mg Take 1 tablet by mouth at bedtime. [facility] 80 mg tablet 0 02-02 00:00: 00 Yes [id number] 80mg Take 1 tablet by mouth at bedtime. [facility] 80 mg tablet 0 02-02 00:00: 00 Yes [id number] 80mg Take 1 tablet by mouth at bedtime. [facility] 80 mg tablet 0 02-02 00:00: 00 Yes [id number] 80mg Take 1 tablet by mouth at bedtime. [facility] 80 mg tablet 2021-0 02-02 00:00: 00 Yes [id number] 80mg Take 1 tablet by mouth at bedtime. [facility] 80 mg tablet 2021-0 02-02 00:00: 00 Yes [id number] 80mg Take 1 tablet by mouth at bedtime. [facility] 80 mg tablet 2021-0 02-02 00:00: 00 Yes [id number] 80mg Take 1 tablet by mouth at bedtime. [facility] 80 mg tablet 2021-0 02-02 00:00: 00 Yes [id number] 80mg Take 1 tablet by mouth at bedtime. [facility] 80 mg tablet 2021-0 02-02 00:00: 00 Yes [id number] 80mg Take 1 tablet by mouth at bedtime. [facility] 80 mg tablet 2021-0 02-02 00:00: 00 Yes [id number] 80mg Take 1 tablet by mouth at bedtime. [facility] 80 mg tablet 2021-0 02-02 00:00: 00 Yes [id number] 80mg Take 1 tablet by mouth at bedtime. [facility] 80 mg tablet 0 02-02 00:00: 00 Yes [id number] 80mg Take 1 tablet by mouth at bedtime. [facility] 80 mg tablet 0 02-02 00:00: 00 Yes [id number] 80mg Take 1 tablet by mouth at bedtime. [facility] 80 mg tablet 2021-0 02-02 00:00: 00 Yes [id number] 80mg Take 1 tablet by mouth at bedtime. [facility] 80 mg tablet 0 02-02 00:00: 00 Yes [id number] 80mg Take 1 tablet by mouth at bedtime. [facility] 80 mg tablet 2021-0 02-02 00:00: 00 Yes [id number] 80mg Take 1 tablet by mouth at bedtime. [facility] 80 mg tablet 2021-0 02-02 00:00: 00 Yes [id number] 80mg Take 1 tablet by mouth at bedtime. [facility] 80 mg tablet 2021-0 02-02 00:00: 00 Yes [id number] 80mg Take 1 tablet by mouth at bedtime. [facility] 80 mg tablet 2021-0 02-02 00:00: 00 Yes [id number] 80mg Take 1 tablet by mouth at bedtime. [facility] 80 mg tablet 2021-0 02-02 00:00: 00 Yes [id number] 80mg Take 1 tablet by mouth at bedtime. [facility] 80 mg tablet 2021-0 02-02 00:00: 00 Yes [id number] 80mg Take 1 tablet by mouth at bedtime. [facility] 80 mg tablet 2021-0 02-02 00:00: 00 Yes [id number] 80mg Take 1 tablet by mouth at bedtime. [facility] 80 mg tablet 2021-0 02-02 00:00: 00 Yes [id number] 80mg Take 1 tablet by mouth at bedtime. [facility] 80 mg tablet 2021-0 02-02 00:00: 00 Yes [id number] 80mg Take 1 tablet by mouth at bedtime. [facility] 80 mg tablet 0 02-02 00:00: 00 Yes [id number] 80mg Take 1 tablet by mouth at bedtime. [facility] 80 mg tablet 0 02-02 00:00: 00 Yes [id number] 80mg Take 1 tablet by mouth at bedtime. [facility] 80 mg tablet 0 02-02 00:00: 00 Yes [id number] 80mg Take 1 tablet by mouth at bedtime. [facility] 80 mg tablet 0 02-02 00:00: 00 Yes [id number] 80mg Take 1 tablet by mouth at bedtime. [facility] 80 mg tablet 2021-0 02-02 00:00: 00 Yes [id number] 80mg Take 1 tablet by mouth at bedtime. [facility] 80 mg tablet 2021-0 02-02 00:00: 00 Yes [id number] 80mg Take 1 tablet by mouth at bedtime. [facility] 80 mg tablet 2021-0 02-02 00:00: 00 Yes [id number] 80mg Take 1 tablet by mouth at bedtime. [facility] 80 mg tablet 2021-0 02-02 00:00: 00 Yes [id number] 80mg Take 1 tablet by mouth at bedtime. [facility] 80 mg tablet 0 02-02 00:00: 00 Yes [id number] 80mg Take 1 tablet by mouth at bedtime. [facility] 80 mg tablet 2021-0 02-02 00:00: 00 Yes [id number] 80mg Take 1 tablet by mouth at bedtime. [facility] 80 mg tablet 2021-0 02-02 00:00: 00 Yes [id number] 80mg Take 1 tablet by mouth at bedtime. [facility] 80 mg tablet 0 02-02 00:00: 00 Yes [id number] 80mg Take 1 tablet by mouth at bedtime. [facility] 80 mg tablet 0 02-02 00:00: 00 Yes [id number] 80mg Take 1 tablet by mouth at bedtime. [facility] 80 mg tablet 0 02-02 00:00: 00 Yes [id number] 80mg Take 1 tablet by mouth at bedtime. [facility] 80 mg tablet 2021-0 02-02 00:00: 00 Yes [id number] 80mg Take 1 tablet by mouth at bedtime. [facility] 80 mg tablet 2021-0 02-02 00:00: 00 Yes [id number] 80mg Take 1 tablet by mouth at bedtime. [facility] 80 mg tablet 2021-0 02-02 00:00: 00 Yes [id number] 80mg Take 1 tablet by mouth at bedtime. [facility] 80 mg tablet 2021-0 02-02 00:00: 00 Yes [id number] 80mg Take 1 tablet by mouth at bedtime. [facility] 80 mg tablet 2021-0 02-02 00:00: 00 Yes [id number] 80mg Take 1 tablet by mouth at bedtime. [facility] 80 mg tablet 2021-0 02-02 00:00: 00 Yes [id number] 80mg Take 1 tablet by mouth at bedtime. [facility] 80 mg tablet 2021-0 02-02 00:00: 00 Yes [id number] 80mg Take 1 tablet by mouth at bedtime. [facility] 80 mg tablet 2021-0 02-02 00:00: 00 Yes [id number] 80mg Take 1 tablet by mouth at bedtime. [facility] 80 mg tablet 2021-0 02-02 00:00: 00 Yes [id number] 80mg Take 1 tablet by mouth at bedtime. [facility] 80 mg tablet 2021-0 02-02 00:00: 00 Yes [id number] 80mg Take 1 tablet by mouth at bedtime. [facility] 80 mg tablet 2021-0 02-02 00:00: 00 Yes [id number] 80mg Take 1 tablet by mouth at bedtime. [facility] 80 mg tablet 2021-0 02-02 00:00: 00 Yes [id number] 80mg Take 1 tablet by mouth at bedtime. [facility] 80 mg tablet 2021-0 02-02 00:00: 00 Yes [id number] 80mg Take 1 tablet by mouth at bedtime. [facility] 80 mg tablet 2021-0 02-02 00:00: 00 Yes [id number] 80mg Take 1 tablet by mouth at bedtime. [facility] 80 mg tablet 2021-0 02-02 00:00: 00 Yes [id number] 80mg Take 1 tablet by mouth at bedtime. [facility] 80 mg tablet 2021-0 02-02 00:00: 00 Yes [id number] 80mg Take 1 tablet by mouth at bedtime. [facility] 80 mg tablet 2021-0 02-02 00:00: 00 Yes [id number] 80mg Take 1 tablet by mouth at bedtime. [facility] 80 mg tablet 2021-0 02-02 00:00: 00 Yes [id number] 80mg Take 1 tablet by mouth at bedtime. [facility] 80 mg tablet 2021-0 02-02 00:00: 00 Yes [id number] 80mg Take 1 tablet by mouth at bedtime. [facility] 80 mg tablet 2021-0 02-02 00:00: 00 Yes [id number] 80mg Take 1 tablet by mouth at bedtime. [facility] 80 mg tablet 2021-0 02-02 00:00: 00 Yes [id number] 80mg Take 1 tablet by mouth at bedtime. [facility] 80 mg tablet 0 02-02 00:00: 00 Yes [id number] 80mg Take 1 tablet by mouth at bedtime. [facility] 80 mg tablet 2021-0 02-02 00:00: 00 Yes [id number] 80mg Take 1 tablet by mouth at bedtime. [facility] 80 mg tablet 0 02-02 00:00: 00 Yes [id number] 80mg Take 1 tablet by mouth at bedtime. [facility] 80 mg tablet 0 02-02 00:00: 00 Yes [id number] 80mg Take 1 tablet by mouth at bedtime. [facility] 80 mg tablet 2021-0 02-02 00:00: 00 Yes [id number] 80mg Take 1 tablet by mouth at bedtime. [facility] 80 mg tablet 2021-0 02-02 00:00: 00 Yes [id number] 80mg Take 1 tablet by mouth at bedtime. [facility] 80 mg tablet 2021-0 02-02 00:00: 00 Yes [id number] 80mg Take 1 tablet by mouth at bedtime. [facility] 80 mg tablet 2021-0 02-02 00:00: 00 Yes [id number] 80mg Take 1 tablet by mouth at bedtime. [facility] 80 mg tablet 2021-0 02-02 00:00: 00 Yes [id number] 80mg Take 1 tablet by mouth at bedtime. [facility] 80 mg tablet 2021-0 02-02 00:00: 00 Yes [id number] 80mg Take 1 tablet by mouth at bedtime. [facility] 80 mg tablet 2021-0 02-02 00:00: 00 Yes [id number] 80mg Take 1 tablet by mouth at bedtime. [facility] 80 mg tablet 2021-0 02-02 00:00: 00 Yes [id number] 80mg Take 1 tablet by mouth at bedtime. [facility] 80 mg tablet 2021-0 02-02 00:00: 00 Yes [id number] 80mg Take 1 tablet by mouth at bedtime. [facility] 80 mg tablet 2021-0 02-02 00:00: 00 Yes [id number] 80mg Take 1 tablet by mouth at bedtime. [facility] 80 mg tablet 2021-0 02-02 00:00: 00 Yes [id number] 80mg Take 1 tablet by mouth at bedtime. [facility] 80 mg tablet 2021-0 02-02 00:00: 00 Yes [id number] 80mg Take 1 tablet by mouth at bedtime. [facility] 80 mg tablet 2021-0 02-02 00:00: 00 Yes [id number] 80mg Take 1 tablet by mouth at bedtime. [facility] 80 mg tablet 2021-0 02-02 00:00: 00 Yes [id number] 80mg Take 1 tablet by mouth at bedtime. [facility] 80 mg tablet 2-0 02-02 00:00: 00 Yes [id number] 80mg Take 1 tablet by mouth at bedtime. [facility] 80 mg tablet 2021-0 02-02 00:00: 00 Yes [id number] 80mg Take 1 tablet by mouth at bedtime. [facility] 80 mg tablet 2021-0 02-02 00:00: 00 Yes [id number] 80mg Take 1 tablet by mouth at bedtime. [facility] 80 mg tablet 2021-0 02-02 00:00: 00 Yes [id number] 80mg Take 1 tablet by mouth at bedtime. [facility] 80 mg tablet 2021-0 02-02 00:00: 00 Yes [id number] 80mg Take 1 tablet by mouth at bedtime. [facility] 80 mg tablet 2021-0 02-02 00:00: 00 Yes [id number] 80mg Take 1 tablet by mouth at bedtime. [facility] 80 mg tablet 2021-0 02-02 00:00: 00 Yes [id number] 80mg Take 1 tablet by mouth at bedtime. [facility] 80 mg tablet 2021-0 02-02 00:00: 00 Yes [id number] 80mg Take 1 tablet by mouth at bedtime. [facility] 80 mg tablet 0 02-02 00:00: 00 Yes [id number] 80mg Take 1 tablet by mouth at bedtime. [facility] 80 mg tablet 2021-0 02-02 00:00: 00 Yes [id number] 80mg Take 1 tablet by mouth at bedtime. [facility] 80 mg tablet 2021-0 02-02 00:00: 00 Yes [id number] 80mg Take 1 tablet by mouth at bedtime. [facility] 80 mg tablet 2021-0 02-02 00:00: 00 Yes [id number] 80mg Take 1 tablet by mouth at bedtime. [facility] 80 mg tablet 2021-0 02-02 00:00: 00 Yes [id number] 80mg Take 1 tablet by mouth at bedtime. [facility] 80 mg tablet 2021-0 02-02 00:00: 00 Yes [id number] 80mg Take 1 tablet by mouth at bedtime. [facility] 80 mg tablet 0 02-02 00:00: 00 Yes [id number] 80mg Take 1 tablet by mouth at bedtime. [facility] 80 mg tablet 2021-0 02-02 00:00: 00 Yes [id number] 80mg Take 1 tablet by mouth at bedtime. [facility] 80 mg tablet 0 02-02 00:00: 00 Yes [id number] 80mg Take 1 tablet by mouth at bedtime. [facility] 80 mg tablet 0 02-02 00:00: 00 Yes [id number] 80mg Take 1 tablet by mouth at bedtime. [facility] 80 mg tablet 2021-0 02-02 00:00: 00 Yes [id number] 80mg Take 1 tablet by mouth at bedtime. [facility] 80 mg tablet 0 02-02 00:00: 00 Yes [id number] 80mg Take 1 tablet by mouth at bedtime. [facility] 80 mg tablet 0 02-02 00:00: 00 Yes [id number] 80mg Take 1 tablet by mouth at bedtime. [facility] 80 mg tablet 2021-0 02-02 00:00: 00 Yes [id number] 80mg Take 1 tablet by mouth at bedtime. [facility] 80 mg tablet 2021-0 02-02 00:00: 00 Yes [id number] 80mg Take 1 tablet by mouth at bedtime. [facility] 80 mg tablet 2021-0 02-02 00:00: 00 Yes [id number] 80mg Take 1 tablet by mouth at bedtime. [facility] 80 mg tablet 2021-0 02-02 00:00: 00 Yes [id number] 80mg Take 1 tablet by mouth at bedtime. [facility] 80 mg tablet 0 02-02 00:00: 00 Yes [id number] 80mg Take 1 tablet by mouth at bedtime. [facility] 80 mg tablet 0 02-02 00:00: 00 Yes [id number] 80mg Take 1 tablet by mouth at bedtime. [facility] 80 mg tablet 0 02-02 00:00: 00 Yes [id number] 80mg Take 1 tablet by mouth at bedtime. [facility] 80 mg tablet 0 02-02 00:00: 00 Yes [id number] 80mg Take 1 tablet by mouth at bedtime. [facility] 80 mg tablet 0 02-02 00:00: 00 Yes [id number] 80mg Take 1 tablet by mouth at bedtime. [facility] 80 mg tablet 0 02-02 00:00: 00 Yes [id number] 80mg Take 1 tablet by mouth at bedtime. [facility] 80 mg tablet 0 02-02 00:00: 00 Yes [id number] 80mg Take 1 tablet by mouth at bedtime. [facility] 80 mg tablet 0 02-02 00:00: 00 Yes [id number] 80mg Take 1 tablet by mouth at bedtime. [facility] 80 mg tablet 0 02-02 00:00: 00 Yes [id number] 80mg Take 1 tablet by mouth at bedtime. [facility] 80 mg tablet 0 02-02 00:00: 00 Yes [id number] 80mg Take 1 tablet by mouth at bedtime. [facility] 80 mg tablet 0 02-02 00:00: 00 Yes [id number] 80mg Take 1 tablet by mouth at bedtime. [facility] 80 mg tablet 2021-0 02-02 00:00: 00 Yes [id number] 80mg Take 1 tablet by mouth at bedtime. [facility] 80 mg tablet 2021-0 02-02 00:00: 00 Yes [id number] 80mg Take 1 tablet by mouth at bedtime. [facility] 80 mg tablet 0 02-02 00:00: 00 Yes [id number] 80mg Take 1 tablet by mouth at bedtime. [facility] 80 mg tablet 2021-0 02-02 00:00: 00 Yes [id number] 80mg Take 1 tablet by mouth at bedtime. [facility] 80 mg tablet 0 02-02 00:00: 00 Yes [id number] 80mg Take 1 tablet by mouth at bedtime. [facility] 80 mg tablet 2021-0 02-02 00:00: 00 Yes [id number] 80mg Take 1 tablet by mouth at bedtime. [facility] 80 mg tablet 0 02-02 00:00: 00 Yes [id number] 80mg Take 1 tablet by mouth at bedtime. [facility] 80 mg tablet 0 02-02 00:00: 00 Yes [id number] 80mg Take 1 tablet by mouth at bedtime. [facility] 80 mg tablet 0 02-02 00:00: 00 Yes [id number] 80mg Take 1 tablet by mouth at bedtime. [facility] 80 mg tablet 0 02-02 00:00: 00 Yes [id number] 80mg Take 1 tablet by mouth at bedtime. [facility] 80 mg tablet 2021-0 02-02 00:00: 00 Yes [id number] 80mg Take 1 tablet by mouth at bedtime. [facility] 80 mg tablet 2021-0 02-02 00:00: 00 Yes [id number] 80mg Take 1 tablet by mouth at bedtime. [facility] 80 mg tablet 2021-0 02-02 00:00: 00 Yes [id number] 80mg Take 1 tablet by mouth at bedtime. [facility] 80 mg tablet 2021-0 02-02 00:00: 00 Yes [id number] 80mg Take 1 tablet by mouth at bedtime. [facility] 80 mg tablet 2021-0 02-02 00:00: 00 Yes [id number] 80mg Take 1 tablet by mouth at bedtime. [facility] 80 mg tablet 0 02-02 00:00: 00 Yes [id number] 80mg Take 1 tablet by mouth at bedtime. [facility] 80 mg tablet 2021-0 02-02 00:00: 00 Yes [id number] 80mg Take 1 tablet by mouth at bedtime. [facility] 80 mg tablet 0 02-02 00:00: 00 Yes [id number] 80mg Take 1 tablet by mouth at bedtime. [facility] 80 mg tablet 0 02-02 00:00: 00 Yes [id number] 80mg Take 1 tablet by mouth at bedtime. [facility] 80 mg tablet 0 02-02 00:00: 00 Yes [id number] 80mg Take 1 tablet by mouth at bedtime. [facility] 80 mg tablet 0 02-02 00:00: 00 Yes [id number] 80mg Take 1 tablet by mouth at bedtime. [facility] 80 mg tablet 2021-0 02-02 00:00: 00 Yes [id number] 80mg Take 1 tablet by mouth at bedtime. [facility] 80 mg tablet 2021-0 02-02 00:00: 00 Yes [id number] 80mg Take 1 tablet by mouth at bedtime. [facility] 80 mg tablet 2021-0 02-02 00:00: 00 Yes [id number] 80mg Take 1 tablet by mouth at bedtime. [facility] 80 mg tablet 2021-0 02-02 00:00: 00 Yes [id number] 80mg Take 1 tablet by mouth at bedtime. [facility] 80 mg tablet 2021-0 02-02 00:00: 00 Yes [id number] 80mg Take 1 tablet by mouth at bedtime. [facility] 80 mg tablet 2021-0 02-02 00:00: 00 Yes [id number] 80mg Take 1 tablet by mouth at bedtime. [facility] 80 mg tablet 2021-0 02-02 00:00: 00 Yes [id number] 80mg Take 1 tablet by mouth at bedtime. [facility] 80 mg tablet 2021-0 02-02 00:00: 00 Yes [id number] 80mg Take 1 tablet by mouth at bedtime. [facility] 80 mg tablet 2021-0 02-02 00:00: 00 Yes [id number] 80mg Take 1 tablet by mouth at bedtime. [facility] 80 mg tablet 2021-0 02-02 00:00: 00 Yes [id number] 80mg Take 1 tablet by mouth at bedtime. [facility] 80 mg tablet 2021-0 02-02 00:00: 00 Yes [id number] 80mg Take 1 tablet by mouth at bedtime. [facility] 80 mg tablet 2021-0 02-02 00:00: 00 Yes [id number] 80mg Take 1 tablet by mouth at bedtime. [facility] 80 mg tablet 2021-0 02-02 00:00: 00 Yes [id number] 80mg Take 1 tablet by mouth at bedtime. [facility] 80 mg tablet 2-0 02-02 00:00: 00 Yes [id number] 80mg Take 1 tablet by mouth at bedtime. [facility] 80 mg tablet 2021-0 02-02 00:00: 00 Yes [id number] 80mg Take 1 tablet by mouth at bedtime. [facility] 80 mg tablet 2021-0 02-02 00:00: 00 Yes [id number] 80mg Take 1 tablet by mouth at bedtime. [facility] 80 mg tablet 2021-0 02-02 00:00: 00 Yes [id number] 80mg Take 1 tablet by mouth at bedtime. [facility] 80 mg tablet 2021-0 02-02 00:00: 00 Yes [id number] 80mg Take 1 tablet by mouth at bedtime. [facility] 80 mg tablet 0 02-02 00:00: 00 Yes [id number] 80mg Take 1 tablet by mouth at bedtime. [facility] 80 mg tablet 2021-0 02-02 00:00: 00 Yes [id number] 80mg Take 1 tablet by mouth at bedtime. [facility] 80 mg tablet 2021-0 02-02 00:00: 00 Yes [id number] 80mg Take 1 tablet by mouth at bedtime. [facility] 80 mg tablet 0 02-02 00:00: 00 Yes [id number] 80mg Take 1 tablet by mouth at bedtime. [facility] 80 mg tablet 2021-0 02-02 00:00: 00 Yes [id number] 80mg Take 1 tablet by mouth at bedtime. [facility] 80 mg tablet 2021-0 02-02 00:00: 00 Yes [id number] 80mg Take 1 tablet by mouth at bedtime. [facility] 80 mg tablet 2021-0 02-02 00:00: 00 Yes [id number] 80mg Take 1 tablet by mouth at bedtime. [facility] 80 mg tablet 2021-0 02-02 00:00: 00 Yes [id number] 80mg Take 1 tablet by mouth at bedtime. [facility] 80 mg tablet 2021-0 02-02 00:00: 00 Yes [id number] 80mg Take 1 tablet by mouth at bedtime. [facility] 80 mg tablet 2021-0 02-02 00:00: 00 Yes [id number] 80mg Take 1 tablet by mouth at bedtime. [facility] 80 mg tablet 2021-0 02-02 00:00: 00 Yes [id number] 80mg Take 1 tablet by mouth at bedtime. [facility] 80 mg tablet 2021-0 02-02 00:00: 00 Yes [id number] 80mg Take 1 tablet by mouth at bedtime. [facility] 80 mg tablet 2021-0 02-02 00:00: 00 Yes [id number] 80mg Take 1 tablet by mouth at bedtime. [facility] 80 mg tablet 2021-0 02-02 00:00: 00 Yes [id number] 80mg Take 1 tablet by mouth at bedtime. [facility] 80 mg tablet 2021-0 02-02 00:00: 00 Yes [id number] 80mg Take 1 tablet by mouth at bedtime. [facility] 80 mg tablet 2021-0 02-02 00:00: 00 Yes [id number] 80mg Take 1 tablet by mouth at bedtime. [facility] atorvastati n 80 mg tablet 2021-0 02-02 00:00: 00 Yes [id number] 80mg Take 1 tablet by mouth at bedtime. [facility] atorvastati n 80 mg tablet 2021-0 02-02 00:00: 00 Yes [id number] 80mg Take 1 tablet by mouth at bedtime. [facility] atorvastati n 80 mg tablet 2021-0 02-02 00:00: 00 Yes [id number] 80mg Take 1 tablet by mouth at bedtime. [facility] atorvastati n 80 mg tablet 2021-0 02-02 00:00: 00 Yes [id number] 80mg Take 1 tablet by mouth at bedtime. [facility] atorvastati n 80 mg tablet 2021-0 02-02 00:00: 00 Yes [id number] 80mg Take 1 tablet by mouth at bedtime. [facility] atorvastati n 80 mg tablet 0 02-02 00:00: 00 Yes [id number] 80mg Take 1 tablet by mouth at bedtime. [facility] atorvastati n 80 mg tablet 0 02-02 00:00: 00 Yes [id number] 80mg Take 1 tablet by mouth at bedtime. [facility] atorvastati n 80 mg tablet 0 02-02 00:00: 00 08-12 00:00 :00 No [id number] 80mg Take 1 tablet by mouth at bedtime. [facility] atorvastati n 80 mg tablet 0 02-02 00:00: 00 08-12 00:00 :00 No [id number] 80mg Take 1 tablet by mouth at bedtime. [facility] levothyroxi ne 125 mcg tablet 0 12-31 00:00: 00 Yes [id number] 125ug Take 1 tablet by mouth every morning. [facility] levothyroxi ne 125 mcg tablet 0 12-31 00:00: 00 Yes [id number] 125ug Take 1 tablet by mouth every morning. [facility] levothyroxi ne 125 mcg tablet 0 12-31 00:00: 00 Yes [id number] 125ug Take 1 tablet by mouth every morning. [facility] levothyroxi ne 125 mcg tablet 0 12-31 00:00: 00 Yes [id number] 125ug Take 1 tablet by mouth every morning. [facility] levothyroxi ne 125 mcg tablet 0 12-31 00:00: 00 Yes [id number] 125ug Take 1 tablet by mouth every morning. [facility] levothyroxi ne 125 mcg tablet 2021-0 19 00:00: 00 06-23 00:00 :00 No [id number] 125ug Take 1 tablet by mouth every morning. [facility] CARVEDILOL 25 mg tablet 0 11-23 00:00: 00 Yes [id number] TAKE ONE TABLET BY MOUTH TWICE A DAY WITH MEALS [facility] CARVEDILOL 25 mg tablet 0 11-23 00:00: 00 Yes [id number] TAKE ONE TABLET BY MOUTH TWICE A DAY WITH MEALS [facility] CARVEDILOL 25 mg tablet 2021-0 11-23 00:00: 00 Yes [id number] TAKE ONE TABLET BY MOUTH TWICE A DAY WITH MEALS [facility] CARVEDILOL 25 mg tablet 2-0 11-23 00:00: 00 Yes [id number] TAKE ONE TABLET BY MOUTH TWICE A DAY WITH MEALS [facility] CARVEDILOL 25 mg tablet 2021-0 11-23 00:00: 00 Yes [id number] TAKE ONE TABLET BY MOUTH TWICE A DAY WITH MEALS [facility] CARVEDILOL 25 mg tablet 2021-0 11-23 00:00: 00 Yes [id number] TAKE ONE TABLET BY MOUTH TWICE A DAY WITH MEALS [facility] CARVEDILOL 25 mg tablet 2021-0 11-23 00:00: 00 Yes [id number] TAKE ONE TABLET BY MOUTH TWICE A DAY WITH MEALS [facility] CARVEDILOL 25 mg tablet 2021-0 11-23 00:00: 00 Yes [id number] TAKE ONE TABLET BY MOUTH TWICE A DAY WITH MEALS [facility] CARVEDILOL 25 mg tablet 2021-0 11-23 00:00: 00 09-09 00:00 :00 No [id number] TAKE ONE TABLET BY MOUTH TWICE A DAY WITH MEALS [facility] CARVEDILOL 25 mg tablet 2021-0 11-23 00:00: 00 09-09 00:00 :00 No [id number] TAKE ONE TABLET BY MOUTH TWICE A DAY WITH MEALS [facility] CARVEDILOL 25 mg tablet 2021-0 11-23 00:00: 00 09-09 00:00 :00 No [id number] TAKE ONE TABLET BY MOUTH TWICE A DAY WITH MEALS [facility] diclofenac 75 mg EC tablet 11-13 00:00: 00 Yes [id number] 75mg Take 1 tablet by mouth 2 (two) times daily with meals. [facility] cyclobenzap rine 10 mg tablet 2021-0 11-13 00:00: 00 Yes [id number] 10mg Take 1 tablet by mouth 2 (two) times daily as needed (Left shoulder pain). [facility] diclofenac 75 mg EC tablet 2021-0 11-13 00:00: 00 Yes [id number] 75mg Take 1 tablet by mouth 2 (two) times daily with meals. [facility] cyclobenzap rine 10 mg tablet 0 11-13 00:00: 00 Yes [id number] 10mg Take 1 tablet by mouth 2 (two) times daily as needed (Left shoulder pain). [facility] diclofenac 75 mg EC tablet 0 11-13 00:00: 00 Yes [id number] 75mg Take 1 tablet by mouth 2 (two) times daily with meals. [facility] cyclobenzap rine 10 mg tablet 0 11-13 00:00: 00 Yes [id number] 10mg Take 1 tablet by mouth 2 (two) times daily as needed (Left shoulder pain). [facility] diclofenac 75 mg EC tablet 0 11-13 00:00: 00 Yes [id number] 75mg Take 1 tablet by mouth 2 (two) times daily with meals. [facility] cyclobenzap rine 10 mg tablet 0 11-13 00:00: 00 Yes [id number] 10mg Take 1 tablet by mouth 2 (two) times daily as needed (Left shoulder pain). [facility] diclofenac 75 mg EC tablet 0 11-13 00:00: 00 Yes [id number] 75mg Take 1 tablet by mouth 2 (two) times daily with meals. [facility] cyclobenzap rine 10 mg tablet 2021-0 11-13 00:00: 00 Yes [id number] 10mg Take 1 tablet by mouth 2 (two) times daily as needed (Left shoulder pain). [facility] diclofenac 75 mg EC tablet 2021-0 11-13 00:00: 00 Yes [id number] 75mg Take 1 tablet by mouth 2 (two) times daily with meals. [facility] cyclobenzap rine 10 mg tablet 2021-0 11-13 00:00: 00 Yes [id number] 10mg Take 1 tablet by mouth 2 (two) times daily as needed (Left shoulder pain). [facility] diclofenac 75 mg EC tablet 11-13 00:00: 00 Yes [id number] 75mg Take 1 tablet by mouth 2 (two) times daily with meals. [facility] cyclobenzap rine 10 mg tablet 11-13 00:00: 00 Yes [id number] 10mg Take 1 tablet by mouth 2 (two) times daily as needed (Left shoulder pain). [facility] cyclobenzap rine 10 mg tablet 11-13 00:00: 00 Yes [id number] 10mg Take 1 tablet by mouth 2 (two) times daily as needed (Left shoulder pain). [facility] cyclobenzap rine 10 mg tablet 11-13 00:00: 00 09-09 00:00 :00 No [id number] 10mg Take 1 tablet by mouth 2 (two) times daily as needed (Left shoulder pain). [facility] cyclobenzap rine 10 mg tablet 11-13 00:00: 00 09-09 00:00 :00 No [id number] 10mg Take 1 tablet by mouth 2 (two) times daily as needed (Left shoulder pain). [facility] cyclobenzap rine 10 mg tablet 11-13 00:00: 00 09-09 00:00 :00 No [id number] 10mg Take 1 tablet by mouth 2 (two) times daily as needed (Left shoulder pain). [facility] diclofenac 75 mg EC tablet 11-13 00:00: 00 08-26 00:00 :00 No [id number] 75mg Take 1 tablet by mouth 2 (two) times daily with meals. [facility] LEVOTHYROXI NE 125 mcg tablet 2020-08 00:00: 00 12-31 00:00 :00 No [id number] TAKE ONE TABLET BY MOUTH EVERY MORNING [facility] losartan 50 mg tablet 02-02 00:00: 00 Yes [id number] 50mg Take 1 tablet by mouth 2 (two) times daily. [facility] losartan 50 mg tablet 02-02 00:00: 00 Yes [id number] 50mg Take 1 tablet by mouth 2 (two) times daily. [facility] losartan 50 mg tablet 02-02 00:00: 00 Yes [id number] 50mg Take 1 tablet by mouth 2 (two) times daily. [facility] losartan 50 mg tablet 02-02 00:00: 00 Yes [id number] 50mg Take 1 tablet by mouth 2 (two) times daily. [facility] losartan 50 mg tablet 02-02 00:00: 00 Yes [id number] 50mg Take 1 tablet by mouth 2 (two) times daily. [facility] losartan 50 mg tablet 02-02 00:00: 00 Yes [id number] 50mg Take 1 tablet by mouth 2 (two) times daily. [facility] losartan 50 mg tablet 02-02 00:00: 00 Yes [id number] 50mg Take 1 tablet by mouth 2 (two) times daily. [facility] losartan 50 mg tablet 02-02 00:00: 00 Yes [id number] 50mg Take 1 tablet by mouth 2 (two) times daily. [facility] losartan 50 mg tablet 02-02 00:00: 00 Yes [id number] 50mg Take 1 tablet by mouth 2 (two) times daily. [facility] losartan 50 mg tablet 02-02 00:00: 00 Yes [id number] 50mg Take 1 tablet by mouth 2 (two) times daily. [facility] losartan 50 mg tablet 02-02 00:00: 00 Yes [id number] 50mg Take 1 tablet by mouth 2 (two) times daily. [facility] losartan 50 mg tablet 02-02 00:00: 00 Yes [id number] 50mg Take 1 tablet by mouth 2 (two) times daily. [facility] losartan 50 mg tablet 02-02 00:00: 00 Yes [id number] 50mg Take 1 tablet by mouth 2 (two) times daily. [facility] losartan 50 mg tablet 02-02 00:00: 00 Yes [id number] 50mg Take 1 tablet by mouth 2 (two) times daily. [facility] losartan 50 mg tablet 02-02 00:00: 00 Yes [id number] 50mg Take 1 tablet by mouth 2 (two) times daily. [facility] losartan 50 mg tablet 02-02 00:00: 00 Yes [id number] 50mg Take 1 tablet by mouth 2 (two) times daily. [facility] losartan 50 mg tablet 02-02 00:00: 00 Yes [id number] 50mg Take 1 tablet by mouth 2 (two) times daily. [facility] losartan 50 mg tablet 02-02 00:00: 00 Yes [id number] 50mg Take 1 tablet by mouth 2 (two) times daily. [facility] losartan 50 mg tablet 02-02 00:00: 00 Yes [id number] 50mg Take 1 tablet by mouth 2 (two) times daily. [facility] losartan 50 mg tablet 02-02 00:00: 00 Yes [id number] 50mg Take 1 tablet by mouth 2 (two) times daily. [facility] losartan 50 mg tablet 02-02 00:00: 00 Yes [id number] 50mg Take 1 tablet by mouth 2 (two) times daily. [facility] losartan 50 mg tablet 02-02 00:00: 00 Yes [id number] 50mg Take 1 tablet by mouth 2 (two) times daily. [facility] losartan 50 mg tablet 02-02 00:00: 00 Yes [id number] 50mg Take 1 tablet by mouth 2 (two) times daily. [facility] losartan 50 mg tablet 02-02 00:00: 00 01-14 00:00 :00 No [id number] 50mg Take 1 tablet by mouth 2 (two) times daily. [facility] losartan 50 mg tablet 02-02 00:00: 00 01-14 00:00 :00 No [id number] 50mg Take 1 tablet by mouth 2 (two) times daily. [facility] losartan 50 mg tablet 02-02 00:00: 00 01-14 00:00 :00 No [id number] 50mg Take 1 tablet by mouth 2 (two) times daily. [facility] aspirin 81 mg chewable tablet 0 05-09 00:00: 00 Yes [id number] 81mg Take 1 tablet by mouth daily. [facility] aspirin 81 mg chewable tablet 0 05-09 00:00: 00 Yes [id number] 81mg Take 1 tablet by mouth daily. [facility] aspirin 81 mg chewable tablet 0 05-09 00:00: 00 Yes [id number] 81mg Take 1 tablet by mouth daily. [facility] aspirin 81 mg chewable tablet 0 05-09 00:00: 00 Yes [id number] 81mg Take 1 tablet by mouth daily. [facility] aspirin 81 mg chewable tablet 0 05-09 00:00: 00 Yes [id number] 81mg Take 1 tablet by mouth daily. [facility] aspirin 81 mg chewable tablet 0 05-09 00:00: 00 Yes [id number] 81mg Take 1 tablet by mouth daily. [facility] aspirin 81 mg chewable tablet 0 05-09 00:00: 00 Yes [id number] 81mg Take 1 tablet by mouth daily. [facility] aspirin 81 mg chewable tablet 0 05-09 00:00: 00 Yes [id number] 81mg Take 1 tablet by mouth daily. [facility] aspirin 81 mg chewable tablet 0 05-09 00:00: 00 Yes [id number] 81mg Take 1 tablet by mouth daily. [facility] aspirin 81 mg chewable tablet 0 05-09 00:00: 00 Yes [id number] 81mg Take 1 tablet by mouth daily. [facility] aspirin 81 mg chewable tablet 0 05-09 00:00: 00 Yes [id number] 81mg Take 1 tablet by mouth daily. [facility] atorvastati n 80 mg tablet 0 05-09 00:00: 00 Yes [id number] 80mg Take 1 tablet by mouth at bedtime. [facility] aspirin 81 mg chewable tablet 2019-0 05-09 00:00: 00 Yes [id number] 81mg Take 1 tablet by mouth daily. [facility] aspirin 81 mg chewable tablet 2019-0 05-09 00:00: 00 Yes [id number] 81mg Take 1 tablet by mouth daily. [facility] 2019-0 05-09 00:00: 00 Yes [id number] 81mg Take 1 tablet by mouth daily. [facility] 81 mg chewable tablet 2019-0 05-09 00:00: 00 Yes [id number] 81mg Take 1 tablet by mouth daily. [facility] 81 mg chewable tablet 2019-0 05-09 00:00: 00 Yes [id number] 81mg Take 1 tablet by mouth daily. [facility] aspirin 81 mg chewable tablet 2019-0 05-09 00:00: 00 Yes [id number] 81mg Take 1 tablet by mouth daily. [facility] aspirin 81 mg chewable tablet 2019-0 05-09 00:00: 00 Yes [id number] 81mg Take 1 tablet by mouth daily. [facility] aspirin 81 mg chewable tablet 2019-0 05-09 00:00: 00 Yes [id number] 81mg Take 1 tablet by mouth daily. [facility] aspirin 81 mg chewable tablet 2019-0 05-09 00:00: 00 Yes [id number] 81mg Take 1 tablet by mouth daily. [facility] aspirin 81 mg chewable tablet 2019-0 05-09 00:00: 00 Yes [id number] 81mg Take 1 tablet by mouth daily. [facility] aspirin 81 mg chewable tablet 2019-0 05-09 00:00: 00 Yes [id number] 81mg Take 1 tablet by mouth daily. [facility] aspirin 81 mg chewable tablet 2019-0 05-09 00:00: 00 Yes [id number] 81mg Take 1 tablet by mouth daily. [facility] aspirin 81 mg chewable tablet 2019-0 05-09 00:00: 00 Yes [id number] 81mg Take 1 tablet by mouth daily. [facility] aspirin 81 mg chewable tablet 2019-0 05-09 00:00: 00 Yes [id number] 81mg Take 1 tablet by mouth daily. [facility] aspirin 81 mg chewable tablet 05-09 00:00: 00 Yes [id number] 81mg Take 1 tablet by mouth daily. [facility] aspirin 81 mg chewable tablet 05-09 00:00: 00 Yes [id number] 81mg Take 1 tablet by mouth daily. [facility] aspirin 81 mg chewable tablet 05-09 00:00: 00 01-18 00:00 :00 No [id number] 81mg Take 1 tablet by mouth daily. [facility] aspirin 81 mg chewable tablet 05-09 00:00: 00 01-18 00:00 :00 No [id number] 81mg Take 1 tablet by mouth daily. [facility] atorvastati n 80 mg tablet 05-09 00:00: 00 02-02 00:00 :00 No [id number] 80mg Take 1 tablet by mouth at bedtime. [facility] Immunizations Ordered Immunization Name Filled Immunization Name Date Status Comments Source TD, NOS 2021-11-03 00:00:00 Completed [facility] TD, NOS 2021-11-03 00:00:00 Completed [facility] TD, NOS 2021-11-03 00:00:00 Completed [facility] TD, NOS 2021-11-03 00:00:00 Completed [facility] TD, NOS 2021-11-03 00:00:00 Completed [facility] TD, NOS 2021-11-03 00:00:00 Completed [facility] TD, NOS 2021-11-03 00:00:00 Completed [facility] TD, NOS 2021-11-03 00:00:00 Completed [facility] TD, NOS 2021-11-03 00:00:00 Completed [facility] TD, NOS 2021-11-03 00:00:00 Completed [facility] TD, NOS 2021-11-03 00:00:00 Completed [facility] TD, NOS 2021-11-03 00:00:00 Completed [facility] TD, NOS 2021-11-03 00:00:00 Completed [facility] TD, NOS 2021-11-03 00:00:00 Completed [facility] TD, NOS 2021-11-03 00:00:00 Completed [facility] TD, NOS 2021-11-03 00:00:00 Completed [facility] TD, NOS 2021-11-03 00:00:00 Completed [facility] TD, NOS 2021-11-03 00:00:00 Completed [facility] TD, NOS 2021-11-03 00:00:00 Completed [facility] TD, NOS 2021-11-03 00:00:00 Completed [facility] TD, NOS 2021-11-03 00:00:00 Completed [facility] TD, NOS 2021-11-03 00:00:00 Completed [facility] TD, NOS 2021-11-03 00:00:00 Completed [facility] TD, NOS 2021-11-03 00:00:00 Completed [facility] TD, NOS 2021-11-03 00:00:00 Completed [facility] TD, NOS 2021-11-03 00:00:00 Completed [facility] TD, NOS 2021-11-03 00:00:00 Completed [facility] TD, NOS 2021-11-03 00:00:00 Completed [facility] TD, NOS 2021-11-03 00:00:00 Completed [facility] TD, NOS 2021-11-03 00:00:00 Completed [facility] TD, NOS 2021-11-03 00:00:00 Completed [facility] TD, NOS 2021-11-03 00:00:00 Completed [facility] TD, NOS 2021-11-03 00:00:00 Completed [facility] TD, NOS 2021-11-03 00:00:00 Completed [facility] TD, NOS 2021-11-03 00:00:00 Completed [facility] TD, NOS 2021-11-03 00:00:00 Completed [facility] TD, NOS 2021-11-03 00:00:00 Completed [facility] TD, NOS 2021-11-03 00:00:00 Completed [facility] TD, NOS 2021-11-03 00:00:00 Completed [facility] TD, NOS 2021-11-03 00:00:00 Completed [facility] TD, NOS 2021-11-03 00:00:00 Completed [facility] TD, NOS 2021-11-03 00:00:00 Completed [facility] TD, NOS 2021-11-03 00:00:00 Completed [facility] TD, NOS 2021-11-03 00:00:00 Completed [facility] TD, NOS 2021-11-03 00:00:00 Completed [facility] TD, NOS 2021-11-03 00:00:00 Completed [facility] TD, NOS 2021-11-03 00:00:00 Completed [facility] TD, NOS 2021-11-03 00:00:00 Completed [facility] TD, NOS 2021-11-03 00:00:00 Completed [facility] TD, NOS 2021-11-03 00:00:00 Completed [facility] TD, NOS 2021-11-03 00:00:00 Completed [facility] TD, NOS 2021-11-03 00:00:00 Completed [facility] TD, NOS 2021-11-03 00:00:00 Completed [facility] TD, NOS 2021-11-03 00:00:00 Completed [facility] TD, NOS 2021-11-03 00:00:00 Completed [facility] TD, NOS 2021-11-03 00:00:00 Completed [facility] TD, NOS 2021-11-03 00:00:00 Completed [facility] TD, NOS 2021-11-03 00:00:00 Completed [facility] TD, NOS 2021-11-03 00:00:00 Completed [facility] TD, NOS 2021-11-03 00:00:00 Completed [facility] TD, NOS 2021-11-03 00:00:00 Completed [facility] TD, NOS 2021-11-03 00:00:00 Completed [facility] TD, NOS 2021-11-03 00:00:00 Completed [facility] TD, NOS 2021-11-03 00:00:00 Completed [facility] TD, NOS 2021-11-03 00:00:00 Completed [facility] TD, NOS 2021-11-03 00:00:00 Completed [facility] TD, NOS 2021-11-03 00:00:00 Completed [facility] TD, NOS 2021-11-03 00:00:00 Completed [facility] TD, NOS 2021-11-03 00:00:00 Completed [facility] TD, NOS 2021-11-03 00:00:00 Completed [facility] TD, NOS 2021-11-03 00:00:00 Completed [facility] TD, NOS 2021-11-03 00:00:00 Completed [facility] TD, NOS 2021-11-03 00:00:00 Completed [facility] TD, NOS 2021-11-03 00:00:00 Completed [facility] TD, NOS 2021-11-03 00:00:00 Completed [facility] TD, NOS 2021-11-03 00:00:00 Completed [facility] TD, NOS 2021-11-03 00:00:00 Completed [facility] TD, NOS 2021-11-03 00:00:00 Completed [facility] TD, NOS 2021-11-03 00:00:00 Completed [facility] TD, NOS 2021-11-03 00:00:00 Completed [facility] TD, NOS 2021-11-03 00:00:00 Completed [facility] TD, NOS 2021-11-03 00:00:00 Completed [facility] TD, NOS 2021-11-03 00:00:00 Completed [facility] TD, NOS 2021-11-03 00:00:00 Completed [facility] TD, NOS 2021-11-03 00:00:00 Completed [facility] TD, NOS 2021-11-03 00:00:00 Completed [facility] TD, NOS 2021-11-03 00:00:00 Completed [facility] TD, NOS 2021-11-03 00:00:00 Completed [facility] TD, NOS 2021-11-03 00:00:00 Completed [facility] TD, NOS 2021-11-03 00:00:00 Completed [facility] TD, NOS 2021-11-03 00:00:00 Completed [facility] TD, NOS 2021-11-03 00:00:00 Completed [facility] TD, NOS 2021-11-03 00:00:00 Completed [facility] TD, NOS 2021-11-03 00:00:00 Completed [facility] TD, NOS 2021-11-03 00:00:00 Completed [facility] TD, NOS 2021-11-03 00:00:00 Completed [facility] TD, NOS 2021-11-03 00:00:00 Completed [facility] TD, NOS 2021-11-03 00:00:00 Completed [facility] TD, NOS 2021-11-03 00:00:00 Completed [facility] TD, NOS 2021-11-03 00:00:00 Completed [facility] TD, NOS 2021-11-03 00:00:00 Completed [facility] TD, NOS 2021-11-03 00:00:00 Completed [facility] TD, NOS 2021-11-03 00:00:00 Completed [facility] TD, NOS 2021-11-03 00:00:00 Completed [facility] TD, NOS 2021-11-03 00:00:00 Completed [facility] TD, NOS 2021-11-03 00:00:00 Completed [facility] TD, NOS 2021-11-03 00:00:00 Completed [facility] TD, NOS 2021-11-03 00:00:00 Completed [facility] TD, NOS 2021-11-03 00:00:00 Completed [facility] TD, NOS 2021-11-03 00:00:00 Completed [facility] TD, NOS 2021-11-03 00:00:00 Completed [facility] TD, NOS 2021-11-03 00:00:00 Completed [facility] TD, NOS 2021-11-03 00:00:00 Completed [facility] TD, NOS 2021-11-03 00:00:00 Completed [facility] TD, NOS 2021-11-03 00:00:00 Completed [facility] TD, NOS 2021-11-03 00:00:00 Completed [facility] TD, NOS 2021-11-03 00:00:00 Completed [facility] Td 2021-11-03 00:00:00 Completed [facility] Td 2021-11-03 00:00:00 Completed [facility] Td 2021-11-03 00:00:00 Completed [facility] Td 2021-11-03 00:00:00 [facility] [facility]:00:00 [facility] 2021-11-03 00:00:00 Completed [facility] TD, NOS 2021-11-03 00:00:00 Completed [facility] TD, NOS 2021-11-03 00:00:00 Completed [facility] TD, NOS 2021-11-03 00:00:00 Completed [facility] TD, NOS 2021-11-03 00:00:00 Completed [facility] TD, NOS 2021-11-03 00:00:00 Completed [facility] TD, NOS 2021-11-03 00:00:00 Completed [facility] TD, NOS 2021-11-03 00:00:00 Completed [facility] TD, NOS 2021-11-03 00:00:00 Completed [facility] TD, NOS 2021-11-03 00:00:00 Completed [facility] SARS-COV-2 COVID-19 PFIZER VACCINE 2021-08-21 00:00:00 Completed [facility] SARS-COV-2 COVID-19 PFIZER VACCINE 2021-08-21 00:00:00 Completed [facility] SARS-COV-2 COVID-19 PFIZER VACCINE 2021-08-21 00:00:00 Completed [facility] SARS-COV-2 COVID-19 PFIZER VACCINE 2021-08-21 00:00:00 Completed [facility] SARS-COV-2 COVID-19 PFIZER VACCINE 2021-08-21 00:00:00 Completed [facility] SARS-COV-2 COVID-19 PFIZER VACCINE 2021-08-21 00:00:00 Completed [facility] SARS-COV-2 COVID-19 PFIZER VACCINE 2021-08-21 00:00:00 Completed [facility] SARS-COV-2 COVID-19 PFIZER VACCINE 2021-08-21 00:00:00 Completed [facility] SARS-COV-2 COVID-19 PFIZER VACCINE 2021-08-21 00:00:00 Completed [facility] SARS-COV-2 COVID-19 PFIZER VACCINE 2021-08-21 00:00:00 Completed [facility] SARS-COV-2 COVID-19 PFIZER VACCINE 2021-08-21 00:00:00 Completed [facility] SARS-COV-2 COVID-19 PFIZER VACCINE 2021-08-21 00:00:00 Completed [facility] SARS-COV-2 COVID-19 PFIZER VACCINE 2021-08-21 00:00:00 Completed [facility] SARS-COV-2 COVID-19 PFIZER VACCINE 2021-08-21 00:00:00 Completed [facility] SARS-COV-2 COVID-19 PFIZER VACCINE 2021-08-21 00:00:00 Completed [facility] SARS-COV-2 COVID-19 PFIZER VACCINE 2021-08-21 00:00:00 Completed [facility] SARS-COV-2 COVID-19 PFIZER VACCINE 2021-08-21 00:00:00 Completed [facility] SARS-COV-2 COVID-19 PFIZER VACCINE 2021-08-21 00:00:00 Completed [facility] SARS-COV-2 COVID-19 PFIZER VACCINE 2021-08-21 00:00:00 Completed [facility] SARS-COV-2 COVID-19 PFIZER VACCINE 2021-08-21 00:00:00 Completed [facility] SARS-COV-2 COVID-19 PFIZER VACCINE 2021-08-21 00:00:00 Completed [facility] SARS-COV-2 COVID-19 PFIZER VACCINE 2021-08-21 00:00:00 Completed [facility] SARS-COV-2 COVID-19 PFIZER VACCINE 2021-08-21 00:00:00 Completed [facility] SARS-COV-2 COVID-19 PFIZER VACCINE 2021-08-21 00:00:00 Completed [facility] SARS-COV-2 COVID-19 PFIZER VACCINE 2021-08-21 00:00:00 Completed [facility] SARS-COV-2 COVID-19 PFIZER VACCINE 2021-08-21 00:00:00 Completed [facility] SARS-COV-2 COVID-19 PFIZER VACCINE 2021-08-21 00:00:00 Completed [facility] SARS-COV-2 COVID-19 PFIZER VACCINE 2021-08-21 00:00:00 Completed [facility] SARS-COV-2 COVID-19 PFIZER VACCINE 2021-08-21 00:00:00 Completed [facility] SARS-COV-2 COVID-19 PFIZER VACCINE 2021-08-21 00:00:00 Completed [facility] SARS-COV-2 COVID-19 PFIZER VACCINE 2021-08-21 00:00:00 Completed [facility] SARS-COV-2 COVID-19 PFIZER VACCINE 2021-08-21 00:00:00 Completed [facility] SARS-COV-2 COVID-19 PFIZER VACCINE 2021-08-21 00:00:00 Completed [facility] SARS-COV-2 COVID-19 PFIZER VACCINE 2021-08-21 00:00:00 Completed [facility] SARS-COV-2 COVID-19 PFIZER VACCINE 2021-08-21 00:00:00 Completed [facility] SARS-COV-2 COVID-19 PFIZER VACCINE 2021-08-21 00:00:00 Completed [facility] SARS-COV-2 COVID-19 PFIZER VACCINE 2021-08-21 00:00:00 Completed [facility] SARS-COV-2 COVID-19 PFIZER VACCINE 2021-08-21 00:00:00 Completed [facility] SARS-COV-2 COVID-19 PFIZER VACCINE 2021-08-21 00:00:00 Completed [facility] SARS-COV-2 COVID-19 PFIZER VACCINE 2021-08-21 00:00:00 Completed [facility] SARS-COV-2 COVID-19 PFIZER VACCINE 2021-08-21 00:00:00 Completed [facility] SARS-COV-2 COVID-19 PFIZER VACCINE 2021-08-21 00:00:00 Completed [facility] SARS-COV-2 COVID-19 PFIZER VACCINE 2021-08-21 00:00:00 Completed [facility] SARS-COV-2 COVID-19 PFIZER VACCINE 2021-08-21 00:00:00 Completed [facility] SARS-COV-2 COVID-19 PFIZER VACCINE 2021-08-21 00:00:00 Completed [facility] SARS-COV-2 COVID-19 PFIZER VACCINE 2021-08-21 00:00:00 Completed [facility] SARS-COV-2 COVID-19 PFIZER VACCINE 2021-08-21 00:00:00 Completed [facility] SARS-COV-2 COVID-19 PFIZER VACCINE 2021-08-21 00:00:00 Completed [facility] SARS-COV-2 COVID-19 PFIZER VACCINE 2021-08-21 00:00:00 Completed [facility] SARS-COV-2 COVID-19 PFIZER VACCINE 2021-08-21 00:00:00 Completed [facility] SARS-COV-2 COVID-19 PFIZER VACCINE 2021-08-21 00:00:00 Completed [facility] SARS-COV-2 COVID-19 PFIZER VACCINE 2021-08-21 00:00:00 Completed [facility] SARS-COV-2 COVID-19 PFIZER VACCINE 2021-08-21 00:00:00 Completed [facility] SARS-COV-2 COVID-19 PFIZER VACCINE 2021-08-21 00:00:00 Completed [facility] SARS-COV-2 COVID-19 PFIZER VACCINE 2021-08-21 00:00:00 Completed [facility] SARS-COV-2 COVID-19 PFIZER VACCINE 2021-08-21 00:00:00 Completed [facility] SARS-COV-2 COVID-19 PFIZER VACCINE 2021-08-21 00:00:00 Completed [facility] SARS-COV-2 COVID-19 PFIZER VACCINE 2021-08-21 00:00:00 Completed [facility] SARS-COV-2 COVID-19 PFIZER VACCINE 2021-08-21 00:00:00 Completed [facility] SARS-COV-2 COVID-19 PFIZER VACCINE 2021-08-21 00:00:00 Completed [facility] SARS-COV-2 COVID-19 PFIZER VACCINE 2021-08-21 00:00:00 Completed [facility] SARS-COV-2 COVID-19 PFIZER VACCINE 2021-08-21 00:00:00 Completed [facility] SARS-COV-2 COVID-19 PFIZER VACCINE 2021-08-21 00:00:00 Completed [facility] SARS-COV-2 COVID-19 PFIZER VACCINE 2021-08-21 00:00:00 Completed [facility] SARS-COV-2 COVID-19 PFIZER VACCINE 2021-08-21 00:00:00 Completed [facility] SARS-COV-2 COVID-19 PFIZER VACCINE 2021-08-21 00:00:00 Completed [facility] SARS-COV-2 COVID-19 PFIZER VACCINE 2021-08-21 00:00:00 Completed [facility] SARS-COV-2 COVID-19 PFIZER VACCINE 2021-08-21 00:00:00 Completed [facility] SARS-COV-2 COVID-19 PFIZER VACCINE 2021-08-21 00:00:00 Completed [facility] SARS-COV-2 COVID-19 PFIZER VACCINE 2021-08-21 00:00:00 Completed [facility] SARS-COV-2 COVID-19 PFIZER VACCINE 2021-08-21 00:00:00 Completed [facility] SARS-COV-2 COVID-19 PFIZER VACCINE 2021-08-21 00:00:00 Completed [facility] SARS-COV-2 COVID-19 PFIZER VACCINE 2021-08-21 00:00:00 Completed [facility] SARS-COV-2 COVID-19 PFIZER VACCINE 2021-08-21 00:00:00 Completed [facility] SARS-COV-2 COVID-19 PFIZER VACCINE 2021-08-21 00:00:00 Completed [facility] SARS-COV-2 COVID-19 PFIZER VACCINE 2021-08-21 00:00:00 Completed [facility] SARS-COV-2 COVID-19 PFIZER VACCINE 2021-08-21 00:00:00 Completed [facility] SARS-COV-2 COVID-19 PFIZER VACCINE 2021-08-21 00:00:00 Completed [facility] SARS-COV-2 COVID-19 PFIZER VACCINE 2021-08-21 00:00:00 Completed [facility] SARS-COV-2 COVID-19 PFIZER VACCINE 2021-08-21 00:00:00 Completed [facility] SARS-COV-2 COVID-19 PFIZER VACCINE 2021-08-21 00:00:00 Completed [facility] SARS-COV-2 COVID-19 PFIZER VACCINE 2021-08-21 00:00:00 Completed [facility] SARS-COV-2 COVID-19 PFIZER VACCINE 2021-08-21 00:00:00 Completed [facility] SARS-COV-2 COVID-19 PFIZER VACCINE 2021-08-21 00:00:00 Completed [facility] SARS-COV-2 COVID-19 PFIZER VACCINE 2021-08-21 00:00:00 Completed [facility] SARS-COV-2 COVID-19 PFIZER VACCINE 2021-08-21 00:00:00 Completed [facility] SARS-COV-2 COVID-19 PFIZER VACCINE 2021-08-21 00:00:00 Completed [facility] SARS-COV-2 COVID-19 PFIZER VACCINE 2021-08-21 00:00:00 Completed [facility] SARS-COV-2 COVID-19 PFIZER VACCINE 2021-08-21 00:00:00 Completed [facility] SARS-COV-2 COVID-19 PFIZER VACCINE 2021-08-21 00:00:00 Completed [facility] SARS-COV-2 COVID-19 PFIZER VACCINE 2021-08-21 00:00:00 Completed [facility] SARS-COV-2 COVID-19 PFIZER VACCINE 2021-08-21 00:00:00 Completed [facility] SARS-COV-2 COVID-19 PFIZER VACCINE 2021-08-21 00:00:00 Completed [facility] SARS-COV-2 COVID-19 PFIZER VACCINE 2021-08-21 00:00:00 Completed [facility] SARS-COV-2 COVID-19 PFIZER VACCINE 2021-08-21 00:00:00 Completed [facility] SARS-COV-2 COVID-19 PFIZER VACCINE 2021-08-21 00:00:00 Completed [facility] SARS-COV-2 COVID-19 PFIZER VACCINE 2021-08-21 00:00:00 Completed [facility] SARS-COV-2 COVID-19 PFIZER VACCINE 2021-08-21 00:00:00 Completed [facility] SARS-COV-2 COVID-19 PFIZER VACCINE 2021-08-21 00:00:00 Completed [facility] SARS-COV-2 COVID-19 PFIZER VACCINE 2021-08-21 00:00:00 Completed [facility] SARS-COV-2 COVID-19 PFIZER VACCINE 2021-08-21 00:00:00 Completed [facility] SARS-COV-2 COVID-19 PFIZER VACCINE 2021-08-21 00:00:00 Completed [facility] SARS-COV-2 COVID-19 PFIZER VACCINE 2021-08-21 00:00:00 Completed [facility] SARS-COV-2 COVID-19 PFIZER VACCINE 2021-08-21 00:00:00 Completed [facility] SARS-COV-2 COVID-19 PFIZER VACCINE 2021-08-21 00:00:00 Completed [facility] SARS-COV-2 COVID-19 PFIZER VACCINE 2021-08-21 00:00:00 Completed [facility] SARS-COV-2 COVID-19 PFIZER VACCINE 2021-08-21 00:00:00 Completed [facility] SARS-COV-2 COVID-19 PFIZER VACCINE 2021-08-21 00:00:00 Completed [facility] SARS-COV-2 COVID-19 PFIZER VACCINE 2021-08-21 00:00:00 Completed [facility] SARS-COV-2 COVID-19 PFIZER VACCINE 2021-08-21 00:00:00 Completed [facility] SARS-COV-2 COVID-19 PFIZER VACCINE 2021-08-21 00:00:00 Completed [facility] SARS-COV-2 COVID-19 PFIZER VACCINE 2021-08-21 00:00:00 Completed [facility] SARS-COV-2 COVID-19 PFIZER VACCINE 2021-08-21 00:00:00 Completed [facility] SARS-COV-2 COVID-19 PFIZER VACCINE 2021-08-21 00:00:00 Completed [facility] SARS-COV-2 COVID-19 PFIZER VACCINE 2021-08-21 00:00:00 Completed [facility] SARS-COV-2 COVID-19 PFIZER VACCINE 2021-08-21 00:00:00 Completed [facility] SARS-COV-2 COVID-19 PFIZER VACCINE 2021-08-21 00:00:00 Completed [facility] SARS-COV-2 COVID-19 PFIZER VACCINE 2021-08-21 00:00:00 Completed [facility] SARS-COV-2 COVID-19 PFIZER VACCINE 2021-08-21 00:00:00 Completed [facility] SARS-COV-2 COVID-19 PFIZER VACCINE 2021-08-21 00:00:00 Completed [facility] SARS-COV-2 COVID-19 PFIZER VACCINE 2021-08-21 00:00:00 Completed [facility] SARS-COV-2 COVID-19 PFIZER VACCINE 2021-08-21 00:00:00 Completed [facility] SARS-COV-2 COVID-19 PFIZER VACCINE 2021-08-21 00:00:00 Completed [facility] SARS-COV-2 COVID-19 PFIZER VACCINE 2021-08-21 00:00:00 Completed [facility] SARS-COV-2 COVID-19 PFIZER VACCINE 2021-08-21 00:00:00 Completed [facility] SARS-COV-2 COVID-19 PFIZER VACCINE 2021-08-21 00:00:00 Completed [facility] SARS-COV-2 COVID-19 PFIZER VACCINE 2021-08-21 00:00:00 Completed [facility] SARS-COV-2 COVID-19 PFIZER VACCINE 2021-08-21 00:00:00 Completed [facility] SARS-COV-2 COVID-19 PFIZER VACCINE 2021-08-21 00:00:00 Completed [facility] SARS-COV-2 COVID-19 PFIZER VACCINE 2021-08-21 00:00:00 Completed [facility] SARS-COV-2 COVID-19 PFIZER VACCINE 2021-08-21 00:00:00 Completed [facility] SARS-COV-2 COVID-19 PFIZER VACCINE 2021-08-21 00:00:00 Completed [facility] SARS-COV-2 COVID-19 PFIZER VACCINE 2020-11-20 00:00:00 Completed [facility] SARS-COV-2 COVID-19 PFIZER VACCINE 2020-11-20 00:00:00 Completed [facility] SARS-COV-2 COVID-19 PFIZER VACCINE 2020-11-20 00:00:00 Completed [facility] SARS-COV-2 COVID-19 PFIZER VACCINE 2020-11-20 00:00:00 Completed [facility] SARS-COV-2 COVID-19 PFIZER VACCINE 2020-11-20 00:00:00 Completed [facility] SARS-COV-2 COVID-19 PFIZER VACCINE 2020-11-20 00:00:00 Completed [facility] SARS-COV-2 COVID-19 PFIZER VACCINE 2020-11-20 00:00:00 Completed [facility] SARS-COV-2 COVID-19 PFIZER VACCINE 2020-11-20 00:00:00 Completed [facility] SARS-COV-2 COVID-19 PFIZER VACCINE 2020-11-20 00:00:00 Completed [facility] SARS-COV-2 COVID-19 PFIZER VACCINE 2020-11-20 00:00:00 Completed [facility] SARS-COV-2 COVID-19 PFIZER VACCINE 2020-11-20 00:00:00 Completed [facility] SARS-COV-2 COVID-19 PFIZER VACCINE 2020-11-20 00:00:00 Completed [facility] SARS-COV-2 COVID-19 PFIZER VACCINE 2020-11-20 00:00:00 Completed [facility] SARS-COV-2 COVID-19 PFIZER VACCINE 2020-11-20 00:00:00 Completed [facility] SARS-COV-2 COVID-19 PFIZER VACCINE 2020-11-20 00:00:00 Completed [facility] SARS-COV-2 COVID-19 PFIZER VACCINE 2020-11-20 00:00:00 Completed [facility] SARS-COV-2 COVID-19 PFIZER VACCINE 2020-11-20 00:00:00 Completed [facility] SARS-COV-2 COVID-19 PFIZER VACCINE 2020-11-20 00:00:00 Completed [facility] SARS-COV-2 COVID-19 PFIZER VACCINE 2020-11-20 00:00:00 Completed [facility] SARS-COV-2 COVID-19 PFIZER VACCINE 2020-11-20 00:00:00 Completed [facility] SARS-COV-2 COVID-19 PFIZER VACCINE 2020-11-20 00:00:00 Completed [facility] SARS-COV-2 COVID-19 PFIZER VACCINE 2020-11-20 00:00:00 Completed [facility] SARS-COV-2 COVID-19 PFIZER VACCINE 2020-11-20 00:00:00 Completed [facility] SARS-COV-2 COVID-19 PFIZER VACCINE 2020-11-20 00:00:00 Completed [facility] SARS-COV-2 COVID-19 PFIZER VACCINE 2020-11-20 00:00:00 Completed [facility] SARS-COV-2 COVID-19 PFIZER VACCINE 2020-11-20 00:00:00 Completed [facility] SARS-COV-2 COVID-19 PFIZER VACCINE 2020-11-20 00:00:00 Completed [facility] SARS-COV-2 COVID-19 PFIZER VACCINE 2020-11-20 00:00:00 Completed [facility] SARS-COV-2 COVID-19 PFIZER VACCINE 2020-11-20 00:00:00 Completed [facility] SARS-COV-2 COVID-19 PFIZER VACCINE 2020-11-20 00:00:00 Completed [facility] SARS-COV-2 COVID-19 PFIZER VACCINE 2020-11-20 00:00:00 Completed [facility] SARS-COV-2 COVID-19 PFIZER VACCINE 2020-11-20 00:00:00 Completed [facility] SARS-COV-2 COVID-19 PFIZER VACCINE 2020-11-20 00:00:00 Completed [facility] SARS-COV-2 COVID-19 PFIZER VACCINE 2020-11-20 00:00:00 Completed [facility] SARS-COV-2 COVID-19 PFIZER VACCINE 2020-11-20 00:00:00 Completed [facility] SARS-COV-2 COVID-19 PFIZER VACCINE 2020-11-20 00:00:00 Completed [facility] SARS-COV-2 COVID-19 PFIZER VACCINE 2020-11-20 00:00:00 Completed [facility] SARS-COV-2 COVID-19 PFIZER VACCINE 2020-11-20 00:00:00 Completed [facility] SARS-COV-2 COVID-19 PFIZER VACCINE 2020-11-20 00:00:00 Completed [facility] SARS-COV-2 COVID-19 PFIZER VACCINE 2020-11-20 00:00:00 Completed [facility] SARS-COV-2 COVID-19 PFIZER VACCINE 2020-11-20 00:00:00 Completed [facility] SARS-COV-2 COVID-19 PFIZER VACCINE 2020-11-20 00:00:00 Completed [facility] SARS-COV-2 COVID-19 PFIZER VACCINE 2020-11-20 00:00:00 Completed [facility] SARS-COV-2 COVID-19 PFIZER VACCINE 2020-11-20 00:00:00 Completed [facility] SARS-COV-2 COVID-19 PFIZER VACCINE 2020-11-20 00:00:00 Completed [facility] SARS-COV-2 COVID-19 PFIZER VACCINE 2020-11-20 00:00:00 Completed [facility] SARS-COV-2 COVID-19 PFIZER VACCINE 2020-11-20 00:00:00 Completed [facility] SARS-COV-2 COVID-19 PFIZER VACCINE 2020-11-20 00:00:00 Completed [facility] SARS-COV-2 COVID-19 PFIZER VACCINE 2020-11-20 00:00:00 Completed [facility] SARS-COV-2 COVID-19 PFIZER VACCINE 2020-11-20 00:00:00 Completed [facility] SARS-COV-2 COVID-19 PFIZER VACCINE 2020-11-20 00:00:00 Completed [facility] SARS-COV-2 COVID-19 PFIZER VACCINE 2020-11-20 00:00:00 Completed [facility] SARS-COV-2 COVID-19 PFIZER VACCINE 2020-11-20 00:00:00 Completed [facility] SARS-COV-2 COVID-19 PFIZER VACCINE 2020-11-20 00:00:00 Completed [facility] SARS-COV-2 COVID-19 PFIZER VACCINE 2020-11-20 00:00:00 Completed [facility] SARS-COV-2 COVID-19 PFIZER VACCINE 2020-11-20 00:00:00 Completed [facility] SARS-COV-2 COVID-19 PFIZER VACCINE 2020-11-20 00:00:00 Completed [facility] SARS-COV-2 COVID-19 PFIZER VACCINE 2020-11-20 00:00:00 Completed [facility] SARS-COV-2 COVID-19 PFIZER VACCINE 2020-11-20 00:00:00 Completed [facility] SARS-COV-2 COVID-19 PFIZER VACCINE 2020-11-20 00:00:00 Completed [facility] SARS-COV-2 COVID-19 PFIZER VACCINE 2020-11-20 00:00:00 Completed [facility] SARS-COV-2 COVID-19 PFIZER VACCINE 2020-11-20 00:00:00 Completed [facility] SARS-COV-2 COVID-19 PFIZER VACCINE 2020-11-20 00:00:00 Completed [facility] SARS-COV-2 COVID-19 PFIZER VACCINE 2020-11-20 00:00:00 Completed [facility] SARS-COV-2 COVID-19 PFIZER VACCINE 2020-11-20 00:00:00 Completed [facility] SARS-COV-2 COVID-19 PFIZER VACCINE 2020-11-20 00:00:00 Completed [facility] SARS-COV-2 COVID-19 PFIZER VACCINE 2020-11-20 00:00:00 Completed [facility] SARS-COV-2 COVID-19 PFIZER VACCINE 2020-11-20 00:00:00 Completed [facility] SARS-COV-2 COVID-19 PFIZER VACCINE 2020-11-20 00:00:00 Completed [facility] SARS-COV-2 COVID-19 PFIZER VACCINE 2020-11-20 00:00:00 Completed [facility] SARS-COV-2 COVID-19 PFIZER VACCINE 2020-11-20 00:00:00 Completed [facility] SARS-COV-2 COVID-19 PFIZER VACCINE 2020-11-20 00:00:00 Completed [facility] SARS-COV-2 COVID-19 PFIZER VACCINE 2020-11-20 00:00:00 Completed [facility] SARS-COV-2 COVID-19 PFIZER VACCINE 2020-11-20 00:00:00 Completed [facility] SARS-COV-2 COVID-19 PFIZER VACCINE 2020-11-20 00:00:00 Completed [facility] SARS-COV-2 COVID-19 PFIZER VACCINE 2020-11-20 00:00:00 Completed [facility] SARS-COV-2 COVID-19 PFIZER VACCINE 2020-11-20 00:00:00 Completed [facility] SARS-COV-2 COVID-19 PFIZER VACCINE 2020-11-20 00:00:00 Completed [facility] SARS-COV-2 COVID-19 PFIZER VACCINE 2020-11-20 00:00:00 Completed [facility] SARS-COV-2 COVID-19 PFIZER VACCINE 2020-11-20 00:00:00 Completed [facility] SARS-COV-2 COVID-19 PFIZER VACCINE 2020-11-20 00:00:00 Completed [facility] SARS-COV-2 COVID-19 PFIZER VACCINE 2020-11-20 00:00:00 Completed [facility] SARS-COV-2 COVID-19 PFIZER VACCINE 2020-11-20 00:00:00 Completed [facility] SARS-COV-2 COVID-19 PFIZER VACCINE 2020-11-20 00:00:00 Completed [facility] SARS-COV-2 COVID-19 PFIZER VACCINE 2020-11-20 00:00:00 Completed [facility] SARS-COV-2 COVID-19 PFIZER VACCINE 2020-11-20 00:00:00 Completed [facility] SARS-COV-2 COVID-19 PFIZER VACCINE 2020-11-20 00:00:00 Completed [facility] SARS-COV-2 COVID-19 PFIZER VACCINE 2020-11-20 00:00:00 Completed [facility] SARS-COV-2 COVID-19 PFIZER VACCINE 2020-11-20 00:00:00 Completed [facility] SARS-COV-2 COVID-19 PFIZER VACCINE 2020-11-20 00:00:00 Completed [facility] SARS-COV-2 COVID-19 PFIZER VACCINE 2020-11-20 00:00:00 Completed [facility] SARS-COV-2 COVID-19 PFIZER VACCINE 2020-11-20 00:00:00 Completed [facility] SARS-COV-2 COVID-19 PFIZER VACCINE 2020-11-20 00:00:00 Completed [facility] SARS-COV-2 COVID-19 PFIZER VACCINE 2020-11-20 00:00:00 Completed [facility] SARS-COV-2 COVID-19 PFIZER VACCINE 2020-11-20 00:00:00 Completed [facility] SARS-COV-2 COVID-19 PFIZER VACCINE 2020-11-20 00:00:00 Completed [facility] SARS-COV-2 COVID-19 PFIZER VACCINE 2020-11-20 00:00:00 Completed [facility] SARS-COV-2 COVID-19 PFIZER VACCINE 2020-11-20 00:00:00 Completed [facility] SARS-COV-2 COVID-19 PFIZER VACCINE 2020-11-20 00:00:00 Completed [facility] SARS-COV-2 COVID-19 PFIZER VACCINE 2020-11-20 00:00:00 Completed [facility] SARS-COV-2 COVID-19 PFIZER VACCINE 2020-11-20 00:00:00 Completed [facility] SARS-COV-2 COVID-19 PFIZER VACCINE 2020-11-20 00:00:00 Completed [facility] SARS-COV-2 COVID-19 PFIZER VACCINE 2020-11-20 00:00:00 Completed [facility] SARS-COV-2 COVID-19 PFIZER VACCINE 2020-11-20 00:00:00 Completed [facility] SARS-COV-2 COVID-19 PFIZER VACCINE 2020-11-20 00:00:00 Completed [facility] SARS-COV-2 COVID-19 PFIZER VACCINE 2020-11-20 00:00:00 Completed [facility] SARS-COV-2 COVID-19 PFIZER VACCINE 2020-11-20 00:00:00 Completed [facility] SARS-COV-2 COVID-19 PFIZER VACCINE 2020-11-20 00:00:00 Completed [facility] SARS-COV-2 COVID-19 PFIZER VACCINE 2020-11-20 00:00:00 Completed [facility] SARS-COV-2 COVID-19 PFIZER VACCINE 2020-11-20 00:00:00 Completed [facility] SARS-COV-2 COVID-19 PFIZER VACCINE 2020-11-20 00:00:00 Completed [facility] SARS-COV-2 COVID-19 PFIZER VACCINE 2020-11-20 00:00:00 Completed [facility] SARS-COV-2 COVID-19 PFIZER VACCINE 2020-11-20 00:00:00 Completed [facility] SARS-COV-2 COVID-19 PFIZER VACCINE 2020-11-20 00:00:00 Completed [facility] SARS-COV-2 COVID-19 PFIZER VACCINE 2020-11-20 00:00:00 Completed [facility] SARS-COV-2 COVID-19 PFIZER VACCINE 2020-11-20 00:00:00 Completed [facility] SARS-COV-2 COVID-19 PFIZER VACCINE 2020-11-20 00:00:00 Completed [facility] SARS-COV-2 COVID-19 PFIZER VACCINE 2020-11-20 00:00:00 Completed [facility] SARS-COV-2 COVID-19 PFIZER VACCINE 2020-11-20 00:00:00 Completed [facility] SARS-COV-2 COVID-19 PFIZER VACCINE 2020-11-20 00:00:00 Completed [facility] SARS-COV-2 COVID-19 PFIZER VACCINE 2020-11-20 00:00:00 Completed [facility] SARS-COV-2 COVID-19 PFIZER VACCINE 2020-11-20 00:00:00 Completed [facility] SARS-COV-2 COVID-19 PFIZER VACCINE 2020-11-20 00:00:00 Completed [facility] SARS-COV-2 COVID-19 PFIZER VACCINE 2020-11-20 00:00:00 Completed [facility] SARS-COV-2 COVID-19 PFIZER VACCINE 2020-11-20 00:00:00 Completed [facility] SARS-COV-2 COVID-19 PFIZER VACCINE 2020-11-20 00:00:00 Completed [facility] SARS-COV-2 COVID-19 PFIZER VACCINE 2020-11-20 00:00:00 Completed [facility] SARS-COV-2 COVID-19 PFIZER VACCINE 2020-11-20 00:00:00 Completed [facility] SARS-COV-2 COVID-19 PFIZER VACCINE 2020-11-20 00:00:00 Completed [facility] SARS-COV-2 COVID-19 PFIZER VACCINE 2020-11-20 00:00:00 Completed [facility] SARS-COV-2 COVID-19 PFIZER VACCINE 2020-11-20 00:00:00 Completed [facility] SARS-COV-2 COVID-19 PFIZER VACCINE 2020-11-20 00:00:00 Completed [facility] SARS-COV-2 COVID-19 PFIZER VACCINE 2020-10-06 00:00:00 Completed [facility] SARS-COV-2 COVID-19 PFIZER VACCINE 2020-10-06 00:00:00 Completed [facility] SARS-COV-2 COVID-19 PFIZER VACCINE 2020-10-06 00:00:00 Completed [facility] SARS-COV-2 COVID-19 PFIZER VACCINE 2020-10-06 00:00:00 Completed [facility] SARS-COV-2 COVID-19 PFIZER VACCINE 2020-10-06 00:00:00 Completed [facility] SARS-COV-2 COVID-19 PFIZER VACCINE 2020-10-06 00:00:00 Completed [facility] SARS-COV-2 COVID-19 PFIZER VACCINE 2020-10-06 00:00:00 Completed [facility] SARS-COV-2 COVID-19 PFIZER VACCINE 2020-10-06 00:00:00 Completed [facility] SARS-COV-2 COVID-19 PFIZER VACCINE 2020-10-06 00:00:00 Completed [facility] SARS-COV-2 COVID-19 PFIZER VACCINE 2020-10-06 00:00:00 Completed [facility] SARS-COV-2 COVID-19 PFIZER VACCINE 2020-10-06 00:00:00 Completed [facility] SARS-COV-2 COVID-19 PFIZER VACCINE 2020-10-06 00:00:00 Completed [facility] SARS-COV-2 COVID-19 PFIZER VACCINE 2020-10-06 00:00:00 Completed [facility] SARS-COV-2 COVID-19 PFIZER VACCINE 2020-10-06 00:00:00 Completed [facility] SARS-COV-2 COVID-19 PFIZER VACCINE 2020-10-06 00:00:00 Completed [facility] SARS-COV-2 COVID-19 PFIZER VACCINE 2020-10-06 00:00:00 Completed [facility] SARS-COV-2 COVID-19 PFIZER VACCINE 2020-10-06 00:00:00 Completed [facility] SARS-COV-2 COVID-19 PFIZER VACCINE 2020-10-06 00:00:00 Completed [facility] SARS-COV-2 COVID-19 PFIZER VACCINE 2020-10-06 00:00:00 Completed [facility] SARS-COV-2 COVID-19 PFIZER VACCINE 2020-10-06 00:00:00 Completed [facility] SARS-COV-2 COVID-19 PFIZER VACCINE 2020-10-06 00:00:00 Completed [facility] SARS-COV-2 COVID-19 PFIZER VACCINE 2020-10-06 00:00:00 Completed [facility] SARS-COV-2 COVID-19 PFIZER VACCINE 2020-10-06 00:00:00 Completed [facility] SARS-COV-2 COVID-19 PFIZER VACCINE 2020-10-06 00:00:00 Completed [facility] SARS-COV-2 COVID-19 PFIZER VACCINE 2020-10-06 00:00:00 Completed [facility] SARS-COV-2 COVID-19 PFIZER VACCINE 2020-10-06 00:00:00 Completed [facility] SARS-COV-2 COVID-19 PFIZER VACCINE 2020-10-06 00:00:00 Completed [facility] SARS-COV-2 COVID-19 PFIZER VACCINE 2020-10-06 00:00:00 Completed [facility] SARS-COV-2 COVID-19 PFIZER VACCINE 2020-10-06 00:00:00 Completed [facility] SARS-COV-2 COVID-19 PFIZER VACCINE 2020-10-06 00:00:00 Completed [facility] SARS-COV-2 COVID-19 PFIZER VACCINE 2020-10-06 00:00:00 Completed [facility] SARS-COV-2 COVID-19 PFIZER VACCINE 2020-10-06 00:00:00 Completed [facility] SARS-COV-2 COVID-19 PFIZER VACCINE 2020-10-06 00:00:00 Completed [facility] SARS-COV-2 COVID-19 PFIZER VACCINE 2020-10-06 00:00:00 Completed [facility] SARS-COV-2 COVID-19 PFIZER VACCINE 2020-10-06 00:00:00 Completed [facility] SARS-COV-2 COVID-19 PFIZER VACCINE 2020-10-06 00:00:00 Completed [facility] SARS-COV-2 COVID-19 PFIZER VACCINE 2020-10-06 00:00:00 Completed [facility] SARS-COV-2 COVID-19 PFIZER VACCINE 2020-10-06 00:00:00 Completed [facility] SARS-COV-2 COVID-19 PFIZER VACCINE 2020-10-06 00:00:00 Completed [facility] SARS-COV-2 COVID-19 PFIZER VACCINE 2020-10-06 00:00:00 Completed [facility] SARS-COV-2 COVID-19 PFIZER VACCINE 2020-10-06 00:00:00 Completed [facility] SARS-COV-2 COVID-19 PFIZER VACCINE 2020-10-06 00:00:00 Completed [facility] SARS-COV-2 COVID-19 PFIZER VACCINE 2020-10-06 00:00:00 Completed [facility] SARS-COV-2 COVID-19 PFIZER VACCINE 2020-10-06 00:00:00 Completed [facility] SARS-COV-2 COVID-19 PFIZER VACCINE 2020-10-06 00:00:00 Completed [facility] SARS-COV-2 COVID-19 PFIZER VACCINE 2020-10-06 00:00:00 Completed [facility] SARS-COV-2 COVID-19 PFIZER VACCINE 2020-10-06 00:00:00 Completed [facility] SARS-COV-2 COVID-19 PFIZER VACCINE 2020-10-06 00:00:00 Completed [facility] SARS-COV-2 COVID-19 PFIZER VACCINE 2020-10-06 00:00:00 Completed [facility] SARS-COV-2 COVID-19 PFIZER VACCINE 2020-10-06 00:00:00 Completed [facility] SARS-COV-2 COVID-19 PFIZER VACCINE 2020-10-06 00:00:00 Completed [facility] SARS-COV-2 COVID-19 PFIZER VACCINE 2020-10-06 00:00:00 Completed [facility] SARS-COV-2 COVID-19 PFIZER VACCINE 2020-10-06 00:00:00 Completed [facility] SARS-COV-2 COVID-19 PFIZER VACCINE 2020-10-06 00:00:00 Completed [facility] SARS-COV-2 COVID-19 PFIZER VACCINE 2020-10-06 00:00:00 Completed [facility] SARS-COV-2 COVID-19 PFIZER VACCINE 2020-10-06 00:00:00 Completed [facility] SARS-COV-2 COVID-19 PFIZER VACCINE 2020-10-06 00:00:00 Completed [facility] SARS-COV-2 COVID-19 PFIZER VACCINE 2020-10-06 00:00:00 Completed [facility] SARS-COV-2 COVID-19 PFIZER VACCINE 2020-10-06 00:00:00 Completed [facility] SARS-COV-2 COVID-19 PFIZER VACCINE 2020-10-06 00:00:00 Completed [facility] SARS-COV-2 COVID-19 PFIZER VACCINE 2020-10-06 00:00:00 Completed [facility] SARS-COV-2 COVID-19 PFIZER VACCINE 2020-10-06 00:00:00 Completed [facility] SARS-COV-2 COVID-19 PFIZER VACCINE 2020-10-06 00:00:00 Completed [facility] SARS-COV-2 COVID-19 PFIZER VACCINE 2020-10-06 00:00:00 Completed [facility] SARS-COV-2 COVID-19 PFIZER VACCINE 2020-10-06 00:00:00 Completed [facility] SARS-COV-2 COVID-19 PFIZER VACCINE 2020-10-06 00:00:00 Completed [facility] SARS-COV-2 COVID-19 PFIZER VACCINE 2020-10-06 00:00:00 Completed [facility] SARS-COV-2 COVID-19 PFIZER VACCINE 2020-10-06 00:00:00 Completed [facility] SARS-COV-2 COVID-19 PFIZER VACCINE 2020-10-06 00:00:00 Completed [facility] SARS-COV-2 COVID-19 PFIZER VACCINE 2020-10-06 00:00:00 Completed [facility] SARS-COV-2 COVID-19 PFIZER VACCINE 2020-10-06 00:00:00 Completed [facility] SARS-COV-2 COVID-19 PFIZER VACCINE 2020-10-06 00:00:00 Completed [facility] SARS-COV-2 COVID-19 PFIZER VACCINE 2020-10-06 00:00:00 Completed [facility] SARS-COV-2 COVID-19 PFIZER VACCINE 2020-10-06 00:00:00 Completed [facility] SARS-COV-2 COVID-19 PFIZER VACCINE 2020-10-06 00:00:00 Completed [facility] SARS-COV-2 COVID-19 PFIZER VACCINE 2020-10-06 00:00:00 Completed [facility] SARS-COV-2 COVID-19 PFIZER VACCINE 2020-10-06 00:00:00 Completed [facility] SARS-COV-2 COVID-19 PFIZER VACCINE 2020-10-06 00:00:00 Completed [facility] SARS-COV-2 COVID-19 PFIZER VACCINE 2020-10-06 00:00:00 Completed [facility] SARS-COV-2 COVID-19 PFIZER VACCINE 2020-10-06 00:00:00 Completed [facility] SARS-COV-2 COVID-19 PFIZER VACCINE 2020-10-06 00:00:00 Completed [facility] SARS-COV-2 COVID-19 PFIZER VACCINE 2020-10-06 00:00:00 Completed [facility] SARS-COV-2 COVID-19 PFIZER VACCINE 2020-10-06 00:00:00 Completed [facility] SARS-COV-2 COVID-19 PFIZER VACCINE 2020-10-06 00:00:00 Completed [facility] SARS-COV-2 COVID-19 PFIZER VACCINE 2020-10-06 00:00:00 Completed [facility] SARS-COV-2 COVID-19 PFIZER VACCINE 2020-10-06 00:00:00 Completed [facility] SARS-COV-2 COVID-19 PFIZER VACCINE 2020-10-06 00:00:00 Completed [facility] SARS-COV-2 COVID-19 PFIZER VACCINE 2020-10-06 00:00:00 Completed [facility] SARS-COV-2 COVID-19 PFIZER VACCINE 2020-10-06 00:00:00 Completed [facility] SARS-COV-2 COVID-19 PFIZER VACCINE 2020-10-06 00:00:00 Completed [facility] SARS-COV-2 COVID-19 PFIZER VACCINE 2020-10-06 00:00:00 Completed [facility] SARS-COV-2 COVID-19 PFIZER VACCINE 2020-10-06 00:00:00 Completed [facility] SARS-COV-2 COVID-19 PFIZER VACCINE 2020-10-06 00:00:00 Completed [facility] SARS-COV-2 COVID-19 PFIZER VACCINE 2020-10-06 00:00:00 Completed [facility] SARS-COV-2 COVID-19 PFIZER VACCINE 2020-10-06 00:00:00 Completed [facility] SARS-COV-2 COVID-19 PFIZER VACCINE 2020-10-06 00:00:00 Completed [facility] SARS-COV-2 COVID-19 PFIZER VACCINE 2020-10-06 00:00:00 Completed [facility] SARS-COV-2 COVID-19 PFIZER VACCINE 2020-10-06 00:00:00 Completed [facility] SARS-COV-2 COVID-19 PFIZER VACCINE 2020-10-06 00:00:00 Completed [facility] SARS-COV-2 COVID-19 PFIZER VACCINE 2020-10-06 00:00:00 Completed [facility] SARS-COV-2 COVID-19 PFIZER VACCINE 2020-10-06 00:00:00 Completed [facility] SARS-COV-2 COVID-19 PFIZER VACCINE 2020-10-06 00:00:00 Completed [facility] SARS-COV-2 COVID-19 PFIZER VACCINE 2020-10-06 00:00:00 Completed [facility] SARS-COV-2 COVID-19 PFIZER VACCINE 2020-10-06 00:00:00 Completed [facility] SARS-COV-2 COVID-19 PFIZER VACCINE 2020-10-06 00:00:00 Completed [facility] SARS-COV-2 COVID-19 PFIZER VACCINE 2020-10-06 00:00:00 Completed [facility] SARS-COV-2 COVID-19 PFIZER VACCINE 2020-10-06 00:00:00 Completed [facility] SARS-COV-2 COVID-19 PFIZER VACCINE 2020-10-06 00:00:00 Completed [facility] SARS-COV-2 COVID-19 PFIZER VACCINE 2020-10-06 00:00:00 Completed [facility] SARS-COV-2 COVID-19 PFIZER VACCINE 2020-10-06 00:00:00 Completed [facility] SARS-COV-2 COVID-19 PFIZER VACCINE 2020-10-06 00:00:00 Completed [facility] SARS-COV-2 COVID-19 PFIZER VACCINE 2020-10-06 00:00:00 Completed [facility] SARS-COV-2 COVID-19 PFIZER VACCINE 2020-10-06 00:00:00 Completed [facility] SARS-COV-2 COVID-19 PFIZER VACCINE 2020-10-06 00:00:00 Completed [facility] SARS-COV-2 COVID-19 PFIZER VACCINE 2020-10-06 00:00:00 Completed [facility] SARS-COV-2 COVID-19 PFIZER VACCINE 2020-10-06 00:00:00 Completed [facility] SARS-COV-2 COVID-19 PFIZER VACCINE 2020-10-06 00:00:00 Completed [facility] SARS-COV-2 COVID-19 PFIZER VACCINE 2020-10-06 00:00:00 Completed [facility] SARS-COV-2 COVID-19 PFIZER VACCINE 2020-10-06 00:00:00 Completed [facility] SARS-COV-2 COVID-19 PFIZER VACCINE 2020-10-06 00:00:00 Completed [facility] SARS-COV-2 COVID-19 PFIZER VACCINE 2020-10-06 00:00:00 Completed [facility] SARS-COV-2 COVID-19 PFIZER VACCINE 2020-10-06 00:00:00 Completed [facility] SARS-COV-2 COVID-19 PFIZER VACCINE 2020-10-06 00:00:00 Completed [facility] SARS-COV-2 COVID-19 PFIZER VACCINE 2020-10-06 00:00:00 Completed [facility] SARS-COV-2 COVID-19 PFIZER VACCINE 2020-10-06 00:00:00 Completed [facility] SARS-COV-2 COVID-19 PFIZER VACCINE 2020-10-06 00:00:00 Completed [facility] SARS-COV-2 COVID-19 PFIZER VACCINE 2020-10-06 00:00:00 Completed [facility] SARS-COV-2 COVID-19 PFIZER VACCINE 2020-10-06 00:00:00 Completed [facility] SARS-COV-2 COVID-19 PFIZER VACCINE 2020-10-06 00:00:00 Completed [facility] SARS-COV-2 COVID-19 PFIZER VACCINE 2020-10-06 00:00:00 Completed [facility] SARS-COV-2 COVID-19 PFIZER VACCINE 2020-10-06 00:00:00 Completed [facility] SARS-COV-2 COVID-19 PFIZER VACCINE 2020-10-06 00:00:00 Completed [facility] Influenza High Dose Quad 2020-06-05 00:00:00 Completed [facility] Influenza High Dose Quad 2020-06-05 00:00:00 Completed [facility] Influenza High Dose Quad 2020-06-05 00:00:00 Completed [facility] Influenza High Dose Quad 2020-06-05 00:00:00 Completed [facility] Influenza High Dose Quad 2020-06-05 00:00:00 Completed [facility] Influenza High Dose Quad 2020-06-05 00:00:00 Completed [facility] Influenza High Dose Quad 2020-06-05 00:00:00 Completed [facility] Influenza High Dose Quad 2020-06-05 00:00:00 Completed [facility] Influenza High Dose Quad 2020-06-05 00:00:00 Completed [facility] Influenza High Dose Quad 2020-06-05 00:00:00 Completed [facility] Influenza High Dose Quad 2020-06-05 00:00:00 Completed [facility] Influenza High Dose Quad 2020-06-05 00:00:00 Completed [facility] Influenza High Dose Quad 2020-06-05 00:00:00 Completed [facility] Influenza High Dose Quad 2020-06-05 00:00:00 Completed [facility] Influenza High Dose Quad 2020-06-05 00:00:00 Completed [facility] Influenza High Dose Quad 2020-06-05 00:00:00 Completed [facility] Influenza High Dose Quad 2020-06-05 00:00:00 Completed [facility] Influenza High Dose Quad 2020-06-05 00:00:00 Completed [facility] Influenza High Dose Quad 2020-06-05 00:00:00 Completed [facility] Influenza High Dose Quad 2020-06-05 00:00:00 Completed [facility] Influenza High Dose Quad 2020-06-05 00:00:00 Completed [facility] Influenza High Dose Quad 2020-06-05 00:00:00 Completed [facility] Influenza High Dose Quad 2020-06-05 00:00:00 Completed [facility] Influenza High Dose Quad 2020-06-05 00:00:00 Completed [facility] Influenza High Dose Quad 2020-06-05 00:00:00 Completed [facility] Influenza High Dose Quad 2020-06-05 00:00:00 Completed [facility] Influenza High Dose Quad 2020-06-05 00:00:00 Completed [facility] Influenza High Dose Quad 2020-06-05 00:00:00 Completed [facility] Influenza High Dose Quad 2020-06-05 00:00:00 Completed [facility] Influenza High Dose Quad 2020-06-05 00:00:00 Completed [facility] Influenza High Dose Quad 2020-06-05 00:00:00 Completed [facility] Influenza High Dose Quad 2020-06-05 00:00:00 Completed [facility] Influenza High Dose Quad 2020-06-05 00:00:00 Completed [facility] Influenza High Dose Quad 2020-06-05 00:00:00 Completed [facility] Influenza High Dose Quad 2020-06-05 00:00:00 Completed [facility] Influenza High Dose Quad 2020-06-05 00:00:00 Completed [facility] Influenza High Dose Quad 2020-06-05 00:00:00 Completed [facility] Influenza High Dose Quad 2020-06-05 00:00:00 Completed [facility] Influenza High Dose Quad 2020-06-05 00:00:00 Completed [facility] Influenza High Dose Quad 2020-06-05 00:00:00 Completed [facility] Influenza High Dose Quad 2020-06-05 00:00:00 Completed [facility] Influenza High Dose Quad 2020-06-05 00:00:00 Completed [facility] Influenza High Dose Quad 2020-06-05 00:00:00 Completed [facility] Influenza High Dose Quad 2020-06-05 00:00:00 Completed [facility] Influenza High Dose Quad 2020-06-05 00:00:00 Completed [facility] Influenza High Dose Quad 2020-06-05 00:00:00 Completed [facility] Influenza High Dose Quad 2020-06-05 00:00:00 Completed [facility] Influenza High Dose Quad 2020-06-05 00:00:00 Completed [facility] Influenza High Dose Quad 2020-06-05 00:00:00 Completed [facility] Influenza High Dose Quad 2020-06-05 00:00:00 Completed [facility] Influenza High Dose Quad 2020-06-05 00:00:00 Completed [facility] Influenza High Dose Quad 2020-06-05 00:00:00 Completed [facility] Influenza High Dose Quad 2020-06-05 00:00:00 Completed [facility] Influenza High Dose Quad 2020-06-05 00:00:00 Completed [facility] Influenza High Dose Quad 2020-06-05 00:00:00 Completed [facility] Influenza High Dose Quad 2020-06-05 00:00:00 Completed [facility] Influenza High Dose Quad 2020-06-05 00:00:00 Completed [facility] Influenza High Dose Quad 2020-06-05 00:00:00 Completed [facility] Influenza High Dose Quad 2020-06-05 00:00:00 Completed [facility] Influenza High Dose Quad 2020-06-05 00:00:00 Completed [facility] Influenza High Dose Quad 2020-06-05 00:00:00 Completed [facility] Influenza High Dose Quad 2020-06-05 00:00:00 Completed [facility] Influenza High Dose Quad 2020-06-05 00:00:00 Completed [facility] Influenza High Dose Quad 2020-06-05 00:00:00 Completed [facility] Influenza High Dose Quad 2020-06-05 00:00:00 Completed [facility] Influenza High Dose Quad 2020-06-05 00:00:00 Completed [facility] Influenza High Dose Quad 2020-06-05 00:00:00 Completed [facility] Influenza High Dose Quad 2020-06-05 00:00:00 Completed [facility] Influenza High Dose Quad 2020-06-05 00:00:00 Completed [facility] Influenza High Dose Quad 2020-06-05 00:00:00 Completed [facility] Influenza High Dose Quad 2020-06-05 00:00:00 Completed [facility] Influenza High Dose Quad 2020-06-05 00:00:00 Completed [facility] Influenza High Dose Quad 2020-06-05 00:00:00 Completed [facility] Influenza High Dose Quad 2020-06-05 00:00:00 Completed [facility] Influenza High Dose Quad 2020-06-05 00:00:00 Completed [facility] Influenza High Dose Quad 2020-06-05 00:00:00 Completed [facility] Influenza High Dose Quad 2020-06-05 00:00:00 Completed [facility] Influenza High Dose Quad 2020-06-05 00:00:00 Completed [facility] Influenza High Dose Quad 2020-06-05 00:00:00 Completed [facility] Influenza High Dose Quad 2020-06-05 00:00:00 Completed [facility] Influenza High Dose Quad 2020-06-05 00:00:00 Completed [facility] Influenza High Dose Quad 2020-06-05 00:00:00 Completed [facility] Influenza High Dose [facility] 2020-06-05 00:00:00 Completed [facility] Influenza High Dose Quad 2020-06-05 00:00:00 Completed [facility] Influenza High Dose Quad 2020-06-05 00:00:00 Completed [facility] Influenza High Dose Quad 2020-06-05 00:00:00 Completed [facility] Influenza High Dose Quad 2020-06-05 00:00:00 Completed [facility] Influenza High Dose Quad 2020-06-05 00:00:00 Completed [facility] Influenza High Dose Quad 2020-06-05 00:00:00 Completed [facility] Influenza High Dose Quad 2020-06-05 00:00:00 Completed [facility] Influenza High Dose Quad 2020-06-05 00:00:00 Completed [facility] Influenza High Dose Quad 2020-06-05 00:00:00 Completed [facility] Influenza High Dose [facility] 2020-06-05 00:00:00 Completed [facility] Influenza High Dose [facility] 2020-06-05 00:00:00 Completed [facility] Influenza High Dose [facility] 2020-06-05 00:00:00 Completed [facility] Influenza High Dose [facility] 2020-06-05 00:00:00 Completed [facility] Influenza High Dose [facility] 2020-06-05 00:00:00 Completed [facility] Influenza High Dose [facility] 2020-06-05 00:00:00 Completed [facility] Influenza High Dose [facility] 2020-06-05 00:00:00 Completed [facility] Influenza High Dose [facility] 2020-06-05 00:00:00 Completed [facility] Influenza High Dose [facility] 2020-06-05 00:00:00 Completed [facility] Influenza High Dose [facility] 2020-06-05 00:00:00 Completed [facility] Influenza High Dose [facility] 2020-06-05 00:00:00 Completed [facility] Influenza High Dose [facility] 2020-06-05 00:00:00 Completed [facility] Influenza High Dose [facility] 2020-06-05 00:00:00 Completed [facility] Influenza High Dose Quad 2020-06-05 00:00:00 Completed [facility] Influenza High Dose [facility] 2020-06-05 00:00:00 Completed [facility] Influenza High Dose [facility] 2020-06-05 00:00:00 Completed [facility] Influenza High Dose Quad 2020-06-05 00:00:00 Completed [facility] Influenza High Dose [facility] 2020-06-05 00:00:00 Completed [facility] Influenza High Dose [facility] 2020-06-05 00:00:00 Completed [facility] Influenza High Dose [facility] 2020-06-05 00:00:00 Completed [facility] Influenza High Dose [facility] 2020-06-05 00:00:00 Completed [facility] Influenza High Dose [facility] 2020-06-05 00:00:00 Completed [facility] Influenza High Dose Quad 2020-06-05 00:00:00 Completed [facility] Influenza High Dose [facility] 2020-06-05 00:00:00 Completed [facility] Influenza High Dose [facility] 2020-06-05 00:00:00 Completed [facility] Influenza High Dose [facility] 2020-06-05 00:00:00 Completed [facility] Influenza High Dose [facility] 2020-06-05 00:00:00 Completed [facility] Influenza High Dose [facility] 2020-06-05 00:00:00 Completed [facility] Influenza High Dose [facility] 2020-06-05 00:00:00 Completed [facility] Influenza High Dose [facility] 2020-06-05 00:00:00 Completed [facility] Influenza High Dose [facility] 2020-06-05 00:00:00 Completed [facility] Influenza High Dose [facility] 2020-06-05 00:00:00 Completed [facility] Influenza High Dose Quad 2020-06-05 00:00:00 Completed [facility] Influenza High Dose Quad 2020-06-05 00:00:00 Completed [facility] Influenza High Dose Quad 2020-06-05 00:00:00 Completed [facility] Influenza High Dose Quad 2020-06-05 00:00:00 Completed [facility] Influenza High Dose Quad 2020-06-05 00:00:00 Completed [facility] Influenza High Dose Quad 2020-06-05 00:00:00 Completed [facility] Influenza High Dose Quad 2020-06-05 00:00:00 Completed [facility] Influenza High Dose Quad 2020-06-05 00:00:00 Completed [facility] Influenza High Dose 2019-10-11 00:00:00 Completed [facility] Influenza High Dose 2019-10-11 00:00:00 Completed [facility] Influenza High Dose 2019-10-11 00:00:00 Completed [facility] Influenza High Dose 2019-10-11 00:00:00 Completed [facility] Influenza High Dose 2019-10-11 00:00:00 Completed [facility] Influenza High Dose 2019-10-11 00:00:00 Completed [facility] Influenza High Dose 2019-10-11 00:00:00 Completed [facility] Influenza High Dose 2019-10-11 00:00:00 Completed [facility] Influenza High Dose 2019-10-11 00:00:00 Completed [facility] Influenza High Dose 2019-10-11 00:00:00 Completed [facility] Influenza High Dose 2019-10-11 00:00:00 Completed [facility] Influenza High Dose 2019-10-11 00:00:00 Completed [facility] Influenza High Dose 2019-10-11 00:00:00 Completed [facility] Influenza High Dose 2019-10-11 00:00:00 Completed [facility] Influenza High Dose 2019-10-11 00:00:00 Completed [facility] Influenza High Dose 2019-10-11 00:00:00 Completed [facility] Influenza High Dose 2019-10-11 00:00:00 Completed [facility] Influenza High Dose 2019-10-11 00:00:00 Completed [facility] Influenza High Dose 2019-10-11 00:00:00 Completed [facility] Influenza High Dose 2019-10-11 00:00:00 Completed [facility] Influenza High Dose 2019-10-11 00:00:00 Completed [facility] Influenza High Dose 2019-10-11 00:00:00 Completed [facility] Influenza High Dose 2019-10-11 00:00:00 Completed [facility] Influenza High Dose 2019-10-11 00:00:00 Completed [facility] Influenza High Dose 2019-10-11 00:00:00 Completed [facility] Influenza High Dose 2019-10-11 00:00:00 Completed [facility] Influenza High Dose 2019-10-11 00:00:00 Completed [facility] Influenza High Dose 2019-10-11 00:00:00 Completed [facility] Influenza High Dose 2019-10-11 00:00:00 Completed [facility] Influenza High Dose 2019-10-11 00:00:00 Completed [facility] Influenza High Dose 2019-10-11 00:00:00 Completed [facility] Influenza High Dose 2019-10-11 00:00:00 Completed [facility] Influenza High Dose 2019-10-11 00:00:00 Completed [facility] Influenza High Dose 2019-10-11 00:00:00 Completed [facility] Influenza High Dose 2019-10-11 00:00:00 Completed [facility] Influenza High Dose 2019-10-11 00:00:00 Completed [facility] Influenza High Dose 2019-10-11 00:00:00 Completed [facility] Influenza High Dose 2019-10-11 00:00:00 Completed [facility] Influ[facility] High Dose 2019-10-11 00:00:00 Completed [facility] High Dose 2019-10-11 00:00:00 Completed [facility] High Dose 2019-10-11 00:00:00 Completed [facility] High Dose 2019-10-11 00:00:00 Completed [facility] High Dose 2019-10-11 00:00:00 Completed [facility] High Dose 2019-10-11 00:00:00 Completed [facility] High Dose 2019-10-11 00:00:00 Completed [facility] High Dose 2019-10-11 00:00:00 Completed [facility] High Dose 2019-10-11 00:00:00 Completed [facility] High Dose 2019-10-11 00:00:00 Completed [facility] High Dose 2019-10-11 00:00:00 Completed [facility] High Dose 2019-10-11 00:00:00 Completed [facility] High Dose 2019-10-11 00:00:00 Completed [facility] High Dose 2019-10-11 00:00:00 Completed [facility] High Dose 2019-10-11 00:00:00 Completed [facility] High Dose 2019-10-11 00:00:00 Completed [facility] High Dose 2019-10-11 00:00:00 Completed [facility] High Dose 2019-10-11 00:00:00 Completed [facility] High Dose 2019-10-11 00:00:00 Completed [facility] High Dose 2019-10-11 00:00:00 Completed [facility] High Dose 2019-10-11 00:00:00 Completed [facility] High Dose 2019-10-11 00:00:00 Completed [facility] High Dose 2019-10-11 00:00:00 Completed [facility] High Dose 2019-10-11 00:00:00 Completed [facility] High Dose 2019-10-11 00:00:00 Completed [facility] High Dose 2019-10-11 00:00:00 Completed [facility] High Dose 2019-10-11 00:00:00 Completed [facility] High Dose 2019-10-11 00:00:00 Completed [facility] High Dose 2019-10-11 00:00:00 Completed [facility] High Dose 2019-10-11 00:00:00 Completed [facility] High Dose 2019-10-11 00:00:00 Completed [facility] Influ[facility] High Dose 2019-10-11 00:00:00 Completed [facility] Influ[facility] High Dose 2019-10-11 00:00:00 Completed [facility] Influ[facility] High Dose 2019-10-11 00:00:00 Completed [facility] Influ[facility] High Dose 2019-10-11 00:00:00 Completed [facility] Influ[facility] High Dose 2019-10-11 00:00:00 Completed [facility] High Dose 2019-10-11 00:00:00 Completed [facility] Influ[facility] High Dose 2019-10-11 00:00:00 Completed [facility] High Dose 2019-10-11 00:00:00 Completed [facility] Influ[facility] High Dose 2019-10-11 00:00:00 Completed [facility] High Dose 2019-10-11 00:00:00 Completed [facility] Influ[facility] High Dose 2019-10-11 00:00:00 Completed [facility] High Dose 2019-10-11 00:00:00 Completed [facility] Influ[facility] High Dose 2019-10-11 00:00:00 Completed [facility] High Dose 2019-10-11 00:00:00 Completed [facility] High Dose 2019-10-11 00:00:00 Completed [facility] High Dose 2019-10-11 00:00:00 Completed [facility] Influ[facility] High Dose 2019-10-11 00:00:00 Completed [facility] High Dose 2019-10-11 00:00:00 Completed [facility] Influ[facility] High Dose 2019-10-11 00:00:00 Completed [facility] High Dose 2019-10-11 00:00:00 Completed [facility] Influ[facility] High Dose 2019-10-11 00:00:00 Completed [facility] Influ[facility] High Dose 2019-10-11 00:00:00 Completed [facility] Influ[facility] High Dose 2019-10-11 00:00:00 Completed [facility] Influ[facility] High Dose 2019-10-11 00:00:00 Completed [facility] Influ[facility] High Dose 2019-10-11 00:00:00 Completed [facility] Influ[facility] High Dose 2019-10-11 00:00:00 Completed [facility] Influ[facility] High Dose 2019-10-11 00:00:00 Completed [facility] Influ[facility] High Dose 2019-10-11 00:00:00 Completed [facility] Influ[facility] High Dose 2019-10-11 00:00:00 Completed [facility] Influ[facility] High Dose 2019-10-11 00:00:00 Completed [facility] Influ[facility] High Dose 2019-10-11 00:00:00 Completed [facility] Influ[facility] High Dose 2019-10-11 00:00:00 Completed [facility] Influ[facility] High Dose 2019-10-11 00:00:00 Completed [facility] Influ[facility] High Dose 2019-10-11 00:00:00 Completed [facility] Influ[facility] High Dose 2019-10-11 00:00:00 Completed [facility] Influ[facility] High Dose 2019-10-11 00:00:00 Completed [facility] Influenza High Dose 2019-10-11 00:00:00 Completed [facility] Influenza High Dose 2019-10-11 00:00:00 Completed [facility] Influenza High Dose 2019-10-11 00:00:00 Completed [facility] Influenza High Dose 2019-10-11 00:00:00 Completed [facility] Influenza High Dose 2019-10-11 00:00:00 Completed [facility] Influenza High Dose 2019-10-11 00:00:00 Completed [facility] Influenza High Dose 2019-10-11 00:00:00 Completed [facility] Influenza High Dose 2019-10-11 00:00:00 Completed [facility] Influenza High Dose 2019-10-11 00:00:00 Completed [facility] Influenza High Dose 2019-10-11 00:00:00 Completed [facility] Influenza High Dose 2019-10-11 00:00:00 Completed [facility] Influenza High Dose 2019-10-11 00:00:00 Completed [facility] Influ[facility] High Dose 2019-10-11 00:00:00 Completed [facility] Influenza High Dose 2019-10-11 00:00:00 Completed [facility] Influenza High Dose 2019-10-11 00:00:00 Completed [facility] Influenza High Dose 2019-10-11 00:00:00 Completed [facility] Influenza High Dose 2019-10-11 00:00:00 Completed [facility] Influenza High Dose 2019-10-11 00:00:00 Completed [facility] Influenza High Dose 2019-10-11 00:00:00 Completed [facility] Influenza High Dose 2019-10-11 00:00:00 Completed [facility] Influenza High Dose 2019-10-11 00:00:00 Completed [facility] Influenza High Dose 2019-10-11 00:00:00 Completed [facility] Influenza High Dose 2019-10-11 00:00:00 Completed [facility] Influenza High Dose 2019-10-11 00:00:00 Completed [facility] Influenza High Dose 2019-10-11 00:00:00 Completed [facility] Influenza High Dose 2019-10-11 00:00:00 Completed [facility] Influenza High Dose 2019-10-11 00:00:00 Completed [facility] TD, NOS 2019-08-11 00:00:00 Completed [facility] TD, NOS 2019-08-11 00:00:00 Completed [facility] TD, NOS 2019-08-11 00:00:00 Completed [facility] TD, NOS 2019-08-11 00:00:00 Completed [facility] TD, NOS 2019-08-11 00:00:00 Completed [facility] TD, NOS 2019-08-11 00:00:00 Completed [facility] TD, NOS 2019-08-11 00:00:00 Completed [facility] TD, NOS 2019-08-11 00:00:00 Completed [facility] TD, NOS 2019-08-11 00:00:00 Completed [facility] TD, NOS 2019-08-11 00:00:00 Completed [facility] TD, NOS 2019-08-11 00:00:00 Completed [facility] TD, NOS 2019-08-11 00:00:00 Completed [facility] TD, NOS 2019-08-11 00:00:00 Completed [facility] TD, NOS 2019-08-11 00:00:00 Completed [facility] TD, NOS 2019-08-11 00:00:00 Completed [facility] TD, NOS 2019-08-11 00:00:00 Completed [facility] TD, NOS 2019-08-11 00:00:00 Completed [facility] TD, NOS 2019-08-11 00:00:00 Completed [facility] TD, NOS 2019-08-11 00:00:00 Completed [facility] TD, NOS 2019-08-11 00:00:00 Completed [facility] TD, NOS 2019-08-11 00:00:00 Completed [facility] TD, NOS 2019-08-11 00:00:00 Completed [facility] TD, NOS 2019-08-11 00:00:00 Completed [facility] TD, NOS 2019-08-11 00:00:00 Completed [facility] TD, NOS 2019-08-11 00:00:00 Completed [facility] TD, NOS 2019-08-11 00:00:00 Completed [facility] TD, NOS 2019-08-11 00:00:00 Completed [facility] TD, NOS 2019-08-11 00:00:00 Completed [facility] TD, NOS 2019-08-11 00:00:00 Completed [facility] TD, NOS 2019-08-11 00:00:00 Completed [facility] TD, NOS 2019-08-11 00:00:00 Completed [facility] TD, NOS 2019-08-11 00:00:00 Completed [facility] TD, NOS 2019-08-11 00:00:00 Completed [facility] TD, NOS 2019-08-11 00:00:00 Completed [facility] TD, NOS 2019-08-11 00:00:00 Completed [facility] TD, NOS 2019-08-11 00:00:00 Completed [facility] TD, NOS 2019-08-11 00:00:00 Completed [facility] TD, NOS 2019-08-11 00:00:00 Completed [facility] TD, NOS 2019-08-11 00:00:00 Completed [facility] TD, NOS 2019-08-11 00:00:00 Completed [facility] TD, NOS 2019-08-11 00:00:00 Completed [facility] TD, NOS 2019-08-11 00:00:00 Completed [facility] TD, NOS 2019-08-11 00:00:00 Completed [facility] TD, NOS 2019-08-11 00:00:00 Completed [facility] TD, NOS 2019-08-11 00:00:00 Completed [facility] TD, NOS 2019-08-11 00:00:00 Completed [facility] TD, NOS 2019-08-11 00:00:00 Completed [facility] TD, NOS 2019-08-11 00:00:00 Completed [facility] TD, NOS 2019-08-11 00:00:00 Completed [facility] TD, NOS 2019-08-11 00:00:00 Completed [facility] TD, NOS 2019-08-11 00:00:00 Completed [facility] TD, NOS 2019-08-11 00:00:00 Completed [facility] TD, NOS 2019-08-11 00:00:00 Completed [facility] TD, NOS 2019-08-11 00:00:00 Completed [facility] TD, NOS 2019-08-11 00:00:00 Completed [facility] TD, NOS 2019-08-11 00:00:00 Completed [facility] TD, NOS 2019-08-11 00:00:00 Completed [facility] TD, NOS 2019-08-11 00:00:00 Completed [facility] TD, NOS 2019-08-11 00:00:00 Completed [facility] TD, NOS 2019-08-11 00:00:00 Completed [facility] TD, NOS 2019-08-11 00:00:00 Completed [facility] TD, NOS 2019-08-11 00:00:00 Completed [facility] TD, NOS 2019-08-11 00:00:00 Completed [facility] TD, NOS 2019-08-11 00:00:00 Completed [facility] TD, NOS 2019-08-11 00:00:00 Completed [facility] TD, NOS 2019-08-11 00:00:00 Completed [facility] TD, NOS 2019-08-11 00:00:00 Completed [facility] TD, NOS 2019-08-11 00:00:00 Completed [facility] TD, NOS 2019-08-11 00:00:00 Completed [facility] TD, NOS 2019-08-11 00:00:00 Completed [facility] TD, NOS 2019-08-11 00:00:00 Completed [facility] TD, NOS 2019-08-11 00:00:00 Completed [facility] TD, NOS 2019-08-11 00:00:00 Completed [facility] TD, NOS 2019-08-11 00:00:00 Completed [facility] TD, NOS 2019-08-11 00:00:00 Completed [facility] TD, NOS 2019-08-11 00:00:00 Completed [facility] TD, NOS 2019-08-11 00:00:00 Completed [facility] TD, NOS 2019-08-11 00:00:00 Completed [facility] TD, NOS 2019-08-11 00:00:00 Completed [facility] TD, NOS 2019-08-11 00:00:00 Completed [facility] TD, NOS 2019-08-11 00:00:00 Completed [facility] TD, NOS 2019-08-11 00:00:00 Completed [facility] TD, NOS 2019-08-11 00:00:00 Completed [facility] TD, NOS 2019-08-11 00:00:00 Completed [facility] TD, NOS 2019-08-11 00:00:00 Completed [facility] TD, NOS 2019-08-11 00:00:00 Completed [facility] TD, NOS 2019-08-11 00:00:00 Completed [facility] TD, NOS 2019-08-11 00:00:00 Completed [facility] TD, NOS 2019-08-11 00:00:00 Completed [facility] TD, NOS 2019-08-11 00:00:00 Completed [facility] TD, NOS 2019-08-11 00:00:00 Completed [facility] TD, NOS 2019-08-11 00:00:00 Completed [facility] TD, NOS 2019-08-11 00:00:00 Completed [facility] TD, NOS 2019-08-11 00:00:00 Completed [facility] TD, NOS 2019-08-11 00:00:00 Completed [facility] TD, NOS 2019-08-11 00:00:00 Completed [facility] TD, NOS 2019-08-11 00:00:00 Completed [facility] TD, NOS 2019-08-11 00:00:00 Completed [facility] TD, NOS 2019-08-11 00:00:00 Completed [facility] TD, NOS 2019-08-11 00:00:00 Completed [facility] TD, NOS 2019-08-11 00:00:00 Completed [facility] TD, NOS 2019-08-11 00:00:00 Completed [facility] TD, NOS 2019-08-11 00:00:00 Completed [facility] TD, NOS 2019-08-11 00:00:00 Completed [facility] TD, NOS 2019-08-11 00:00:00 Completed [facility] TD, NOS 2019-08-11 00:00:00 Completed [facility] TD, NOS 2019-08-11 00:00:00 Completed [facility] TD, NOS 2019-08-11 00:00:00 Completed [facility] TD, NOS 2019-08-11 00:00:00 Completed [facility] TD, NOS 2019-08-11 00:00:00 Completed [facility] TD, NOS 2019-08-11 00:00:00 Completed [facility] TD, NOS 2019-08-11 00:00:00 Completed [facility] TD, NOS 2019-08-11 00:00:00 Completed [facility] TD, NOS 2019-08-11 00:00:00 Completed [facility] TD, NOS 2019-08-11 00:00:00 Completed [facility] TD, NOS 2019-08-11 00:00:00 Completed [facility] TD, NOS 2019-08-11 00:00:00 Completed [facility] Td 2019-08-11 00:00:00 Completed [facility] Td 2019-08-11 00:00:00 Completed [facility] Td 2019-08-11 00:00:00 Completed [facility] Td 2019-08-11 00:00:00 Completed [facility] Td 2019-08-11 00:00:00 Completed [facility] Td 2019-08-11 00:00:00 Completed [facility] TD, NOS 2019-08-11 00:00:00 Completed [facility] TD, NOS 2019-08-11 00:00:00 Completed [facility] TD, NOS 2019-08-11 00:00:00 Completed [facility] TD, NOS 2019-08-11 00:00:00 Completed [facility] TD, NOS 2019-08-11 00:00:00 Completed [facility] TD, NOS 2019-08-11 00:00:00 Completed [facility] TD, NOS 2019-08-11 00:00:00 Completed [facility] TD, NOS 2019-08-11 00:00:00 Completed [facility] TD, NOS 2019-08-11 00:00:00 Completed [facility] Influenza High Dose 2018-10-26 00:00:00 Completed [facility] Influenza High Dose 2018-10-26 00:00:00 Completed [facility] Influenza High Dose 2018-10-26 00:00:00 Completed [facility] Influenza High Dose 2018-10-26 00:00:00 Completed [facility] Influenza High Dose 2018-10-26 00:00:00 Completed [facility] Influenza High Dose 2018-10-26 00:00:00 Completed [facility] Influenza High Dose 2018-10-26 00:00:00 Completed [facility] Influenza High Dose 2018-10-26 00:00:00 Completed [facility] Influenza High Dose 2018-10-26 00:00:00 Completed [facility] Influenza High Dose 2018-10-26 00:00:00 Completed [facility] Influenza High Dose 2018-10-26 00:00:00 Completed [facility] Influenza High Dose 2018-10-26 00:00:00 Completed [facility] Influenza High Dose 2018-10-26 00:00:00 Completed [facility] Influenza High Dose 2018-10-26 00:00:00 Completed [facility] Influenza High Dose 2018-10-26 00:00:00 Completed [facility] Influenza High Dose 2018-10-26 00:00:00 Completed [facility] Influenza High Dose 2018-10-26 00:00:00 Completed [facility] Influenza High Dose 2018-10-26 00:00:00 Completed [facility] Influenza High Dose 2018-10-26 00:00:00 Completed [facility] Influenza High Dose 2018-10-26 00:00:00 Completed [facility] Influenza High Dose 2018-10-26 00:00:00 Completed [facility] Influenza High Dose 2018-10-26 00:00:00 Completed [facility] Influenza High Dose 2018-10-26 00:00:00 Completed [facility] Influenza High Dose 2018-10-26 00:00:00 Completed [facility] Influenza High Dose 2018-10-26 00:00:00 Completed [facility] Influenza High Dose 2018-10-26 00:00:00 Completed [facility] Influenza High Dose 2018-10-26 00:00:00 Completed [facility] Influenza High Dose 2018-10-26 00:00:00 Completed [facility] Influenza High Dose 2018-10-26 00:00:00 Completed [facility] Influenza High Dose 2018-10-26 00:00:00 Completed [facility] Influenza High Dose 2018-10-26 00:00:00 Completed [facility] Influenza High Dose 2018-10-26 00:00:00 Completed [facility] Influenza High Dose 2018-10-26 00:00:00 Completed [facility] Influenza High Dose 2018-10-26 00:00:00 Completed [facility] Influenza High Dose 2018-10-26 00:00:00 Completed [facility] Influenza High Dose 2018-10-26 00:00:00 Completed [facility] Influenza High Dose 2018-10-26 00:00:00 Completed [facility] Influenza High Dose 2018-10-26 00:00:00 Completed [facility] Influenza High Dose 2018-10-26 00:00:00 Completed [facility] Influenza High Dose 2018-10-26 00:00:00 Completed [facility] Influenza High Dose 2018-10-26 00:00:00 Completed [facility] Influ[facility] High Dose 2018-10-26 00:00:00 Completed [facility] Influ[facility] High Dose 2018-10-26 00:00:00 Completed [facility] Influ[facility] High Dose 2018-10-26 00:00:00 Completed [facility] Influ[facility] High Dose 2018-10-26 00:00:00 Completed [facility] Influ[facility] High Dose 2018-10-26 00:00:00 Completed [facility] Influ[facility] High Dose 2018-10-26 00:00:00 Completed [facility] Influ[facility] High Dose 2018-10-26 00:00:00 Completed [facility] Influ[facility] High Dose 2018-10-26 00:00:00 Completed [facility] Influ[facility] High Dose 2018-10-26 00:00:00 Completed [facility] Influ[facility] High Dose 2018-10-26 00:00:00 Completed [facility] Influ[facility] High Dose 2018-10-26 00:00:00 Completed [facility] Influ[facility] High Dose 2018-10-26 00:00:00 Completed [facility] Influ[facility] High Dose 2018-10-26 00:00:00 Completed [facility] Influ[facility] High Dose 2018-10-26 00:00:00 Completed [facility] Influ[facility] High Dose 2018-10-26 00:00:00 Completed [facility] Influ[facility] High Dose 2018-10-26 00:00:00 Completed [facility] High Dose 2018-10-26 00:00:00 Completed [facility] Influ[facility] High Dose 2018-10-26 00:00:00 Completed [facility] High Dose 2018-10-26 00:00:00 Completed [facility] High Dose 2018-10-26 00:00:00 Completed [facility] High Dose 2018-10-26 00:00:00 Completed [facility] High Dose 2018-10-26 00:00:00 Completed [facility] High Dose 2018-10-26 00:00:00 Completed [facility] High Dose 2018-10-26 00:00:00 Completed [facility] High Dose 2018-10-26 00:00:00 Completed [facility] High Dose 2018-10-26 00:00:00 Completed [facility] High Dose 2018-10-26 00:00:00 Completed [facility] High Dose 2018-10-26 00:00:00 Completed [facility] High Dose 2018-10-26 00:00:00 Completed [facility] High Dose 2018-10-26 00:00:00 Completed [facility] High Dose 2018-10-26 00:00:00 Completed [facility] High Dose 2018-10-26 00:00:00 Completed [facility] High Dose 2018-10-26 00:00:00 Completed [facility] High Dose 2018-10-26 00:00:00 Completed [facility] High Dose 2018-10-26 00:00:00 Completed [facility] Influ[facility] High Dose 2018-10-26 00:00:00 Completed [facility] High Dose 2018-10-26 00:00:00 Completed [facility] High Dose 2018-10-26 00:00:00 Completed [facility] High Dose 2018-10-26 00:00:00 Completed [facility] High Dose 2018-10-26 00:00:00 Completed [facility] High Dose 2018-10-26 00:00:00 Completed [facility] High Dose 2018-10-26 00:00:00 Completed [facility] High Dose 2018-10-26 00:00:00 Completed [facility] High Dose 2018-10-26 00:00:00 Completed [facility] High Dose 2018-10-26 00:00:00 Completed [facility] High Dose 2018-10-26 00:00:00 Completed [facility] High Dose 2018-10-26 00:00:00 Completed [facility] High Dose 2018-10-26 00:00:00 Completed [facility] High Dose 2018-10-26 00:00:00 Completed [facility] High Dose 2018-10-26 00:00:00 Completed [facility] High Dose 2018-10-26 00:00:00 Completed [facility] High Dose 2018-10-26 00:00:00 Completed [facility] High Dose 2018-10-26 00:00:00 Completed [facility] High Dose 2018-10-26 00:00:00 Completed [facility] High Dose 2018-10-26 00:00:00 Completed [facility] High Dose 2018-10-26 00:00:00 Completed [facility] High Dose 2018-10-26 00:00:00 Completed [facility] High Dose 2018-10-26 00:00:00 Completed [facility] High Dose 2018-10-26 00:00:00 Completed [facility] High Dose 2018-10-26 00:00:00 Completed [facility] High Dose 2018-10-26 00:00:00 Completed [facility] High Dose 2018-10-26 00:00:00 Completed [facility] High Dose 2018-10-26 00:00:00 Completed [facility] High Dose 2018-10-26 00:00:00 Completed [facility] High Dose 2018-10-26 00:00:00 Completed [facility] High Dose 2018-10-26 00:00:00 Completed [facility] 2018-10-26 00:00:00 Completed [facility] Influenza High Dose 2018-10-26 00:00:00 Completed [facility] Influenza High Dose 2018-10-26 00:00:00 Completed [facility] Influenza High Dose 2018-10-26 00:00:00 Completed [facility] Influenza High Dose 2018-10-26 00:00:00 Completed [facility] Influenza High Dose 2018-10-26 00:00:00 Completed [facility] Influenza High Dose 2018-10-26 00:00:00 Completed [facility] Influenza High Dose 2018-10-26 00:00:00 Completed [facility] Influenza High Dose 2018-10-26 00:00:00 Completed [facility] Influenza High Dose 2018-10-26 00:00:00 Completed [facility] Influenza High Dose 2018-10-26 00:00:00 Completed [facility] Influenza High Dose 2018-10-26 00:00:00 Completed [facility] Influenza High Dose 2018-10-26 00:00:00 Completed [facility] Influenza High Dose 2018-10-26 00:00:00 Completed [facility] Influenza High Dose 2018-10-26 00:00:00 Completed [facility] Influenza High Dose 2018-10-26 00:00:00 Completed [facility] Influenza High Dose 2018-10-26 00:00:00 Completed [facility] Influenza High Dose 2018-10-26 00:00:00 Completed [facility] Influenza High Dose 2018-10-26 00:00:00 Completed [facility] Influenza High Dose 2018-10-26 00:00:00 Completed [facility] Influenza High Dose 2018-10-26 00:00:00 Completed [facility] Influenza High Dose 2018-10-26 00:00:00 Completed [facility] Influenza High Dose 2018-10-26 00:00:00 Completed [facility] Influenza High Dose 2018-10-26 00:00:00 Completed [facility] Influenza High Dose 2018-10-26 00:00:00 Completed [facility] Pneumococcal 13 Conjugate, PCV13 (Prevnar 13) 2017-07-16 00:00:00 Completed [facility] Influenza High Dose 2017-07-16 00:00:00 Completed [facility] Pneumococcal 13 Conjugate, PCV13 (Prevnar 13) 2017-07-16 00:00:00 Completed [facility] Influenza High Dose 2017-07-16 00:00:00 Completed [facility] Pneumococcal 13 Conjugate, PCV13 (Prevnar 13) 2017-07-16 00:00:00 Completed [facility] Influenza High Dose 2017-07-16 00:00:00 Completed [facility] Pneumococcal 13 Conjugate, PCV13 (Prevnar 13) 2017-07-16 00:00:00 Completed [facility] Influenza High Dose 2017-07-16 00:00:00 Completed [facility] Pneumococcal 13 Conjugate, PCV13 (Prevnar 13) 2017-07-16 00:00:00 Completed [facility] Influenza High Dose 2017-07-16 00:00:00 Completed [facility] Pneumococcal 13 Conjugate, PCV13 (Prevnar 13) 2017-07-16 00:00:00 Completed [facility] Influenza High Dose 2017-07-16 00:00:00 Completed [facility] Pneumococcal 13 Conjugate, PCV13 (Prevnar 13) 2017-07-16 00:00:00 Completed [facility] Influenza High Dose 2017-07-16 00:00:00 Completed [facility] Pneumococcal 13 Conjugate, PCV13 (Prevnar 13) 2017-07-16 00:00:00 Completed [facility] Influenza High Dose 2017-07-16 00:00:00 Completed [facility] Pneumococcal 13 Conjugate, PCV13 (Prevnar 13) 2017-07-16 00:00:00 Completed [facility] Influenza High Dose 2017-07-16 00:00:00 Completed [facility] Pneumococcal 13 Conjugate, PCV13 (Prevnar 13) 2017-07-16 00:00:00 Completed [facility] Influenza High Dose 2017-07-16 00:00:00 Completed [facility] Pneumococcal 13 Conjugate, PCV13 (Prevnar 13) 2017-07-16 00:00:00 Completed [facility] Influenza High Dose 2017-07-16 00:00:00 Completed [facility] Pneumococcal 13 Conjugate, PCV13 (Prevnar 13) 2017-07-16 00:00:00 Completed [facility] Influenza High Dose 2017-07-16 00:00:00 Completed [facility] Pneumococcal 13 Conjugate, PCV13 (Prevnar 13) 2017-07-16 00:00:00 Completed [facility] Influenza High Dose 2017-07-16 00:00:00 Completed [facility] Pneumococcal 13 Conjugate, PCV13 (Prevnar 13) 2017-07-16 00:00:00 Completed [facility] Influenza High Dose 2017-07-16 00:00:00 Completed [facility] Pneumococcal 13 Conjugate, PCV13 (Prevnar 13) 2017-07-16 00:00:00 Completed [facility] Influenza High Dose 2017-07-16 00:00:00 Completed [facility] Pneumococcal 13 Conjugate, PCV13 (Prevnar 13) 2017-07-16 00:00:00 Completed [facility] Influenza High Dose 2017-07-16 00:00:00 Completed [facility] Pneumococcal 13 Conjugate, PCV13 (Prevnar 13) 2017-07-16 00:00:00 Completed [facility] Influenza High Dose 2017-07-16 00:00:00 Completed [facility] Pneumococcal 13 Conjugate, PCV13 (Prevnar 13) 2017-07-16 00:00:00 Completed [facility] Influenza High Dose 2017-07-16 00:00:00 Completed [facility] Pneumococcal 13 Conjugate, PCV13 (Prevnar 13) 2017-07-16 00:00:00 Completed [facility] Influenza High Dose 2017-07-16 00:00:00 Completed [facility] Pneumococcal 13 Conjugate, PCV13 (Prevnar 13) 2017-07-16 00:00:00 Completed [facility] Influenza High Dose 2017-07-16 00:00:00 Completed [facility] Pneumococcal 13 Conjugate, PCV13 (Prevnar 13) 2017-07-16 00:00:00 Completed [facility] Influenza High Dose 2017-07-16 00:00:00 Completed [facility] Pneumococcal 13 Conjugate, PCV13 (Prevnar 13) 2017-07-16 00:00:00 Completed [facility] Influenza High Dose 2017-07-16 00:00:00 Completed [facility] Pneumococcal 13 Conjugate, PCV13 (Prevnar 13) 2017-07-16 00:00:00 Completed [facility] Influenza High Dose 2017-07-16 00:00:00 Completed [facility] Pneumococcal 13 Conjugate, PCV13 (Prevnar 13) 2017-07-16 00:00:00 Completed [facility] Influenza High Dose 2017-07-16 00:00:00 Completed [facility] Pneumococcal 13 Conjugate, PCV13 (Prevnar 13) 2017-07-16 00:00:00 Completed [facility] Influenza High Dose 2017-07-16 00:00:00 Completed [facility] Pneumococcal 13 Conjugate, PCV13 (Prevnar 13) 2017-07-16 00:00:00 Completed [facility] Influenza High Dose 2017-07-16 00:00:00 Completed [facility] Pneumococcal 13 Conjugate, PCV13 (Prevnar 13) 2017-07-16 00:00:00 Completed [facility] Influenza High Dose 2017-07-16 00:00:00 Completed [facility] Pneumococcal 13 Conjugate, PCV13 (Prevnar 13) 2017-07-16 00:00:00 Completed [facility] Influenza High Dose 2017-07-16 00:00:00 Completed [facility] Pneumococcal 13 Conjugate, PCV13 (Prevnar 13) 2017-07-16 00:00:00 Completed [facility] Influenza High Dose 2017-07-16 00:00:00 Completed [facility] Pneumococcal 13 Conjugate, PCV13 (Prevnar 13) 2017-07-16 00:00:00 Completed [facility] Influenza High Dose 2017-07-16 00:00:00 Completed [facility] Pneumococcal 13 Conjugate, PCV13 (Prevnar 13) 2017-07-16 00:00:00 Completed [facility] Influenza High Dose 2017-07-16 00:00:00 Completed [facility] Pneumococcal 13 Conjugate, PCV13 (Prevnar 13) 2017-07-16 00:00:00 Completed [facility] Influenza High Dose 2017-07-16 00:00:00 Completed [facility] Pneumococcal 13 Conjugate, PCV13 (Prevnar 13) 2017-07-16 00:00:00 Completed [facility] Influenza High Dose 2017-07-16 00:00:00 Completed [facility] Pneumococcal 13 Conjugate, PCV13 (Prevnar 13) 2017-07-16 00:00:00 Completed [facility] Influenza High Dose 2017-07-16 00:00:00 Completed [facility] Pneumococcal 13 Conjugate, PCV13 (Prevnar 13) 2017-07-16 00:00:00 Completed [facility] Influenza High Dose 2017-07-16 00:00:00 Completed [facility] Pneumococcal 13 Conjugate, PCV13 (Prevnar 13) 2017-07-16 00:00:00 Completed [facility] Influenza High Dose 2017-07-16 00:00:00 Completed [facility] Pneumococcal 13 Conjugate, PCV13 (Prevnar 13) 2017-07-16 00:00:00 Completed [facility] Influenza High Dose 2017-07-16 00:00:00 Completed [facility] Pneumococcal 13 Conjugate, PCV13 (Prevnar 13) 2017-07-16 00:00:00 Completed [facility] Influenza High Dose 2017-07-16 00:00:00 Completed [facility] Pneumococcal 13 Conjugate, PCV13 (Prevnar 13) 2017-07-16 00:00:00 Completed [facility] Influenza High Dose 2017-07-16 00:00:00 Completed [facility] Pneumococcal 13 Conjugate, PCV13 (Prevnar 13) 2017-07-16 00:00:00 Completed [facility] Influenza High Dose 2017-07-16 00:00:00 Completed [facility] Pneumococcal 13 Conjugate, PCV13 (Prevnar 13) 2017-07-16 00:00:00 Completed [facility] Influenza High Dose 2017-07-16 00:00:00 Completed [facility] Pneumococcal 13 Conjugate, PCV13 (Prevnar 13) 2017-07-16 00:00:00 Completed [facility] Influenza High Dose 2017-07-16 00:00:00 Completed [facility] Pneumococcal 13 Conjugate, PCV13 (Prevnar 13) 2017-07-16 00:00:00 Completed [facility] Influenza High Dose 2017-07-16 00:00:00 Completed [facility] Pneumococcal 13 Conjugate, PCV13 (Prevnar 13) 2017-07-16 00:00:00 Completed [facility] Influenza High Dose 2017-07-16 00:00:00 Completed [facility] Pneumococcal 13 Conjugate, PCV13 (Prevnar 13) 2017-07-16 00:00:00 Completed [facility] Influenza High Dose 2017-07-16 00:00:00 Completed [facility] Pneumococcal 13 Conjugate, PCV13 (Prevnar 13) 2017-07-16 00:00:00 Completed [facility] Influenza High Dose 2017-07-16 00:00:00 Completed [facility] Pneumococcal 13 Conjugate, PCV13 (Prevnar 13) 2017-07-16 00:00:00 Completed [facility] Influenza High Dose 2017-07-16 00:00:00 Completed [facility] Pneumococcal 13 Conjugate, PCV13 (Prevnar 13) 2017-07-16 00:00:00 Completed [facility] Influenza High Dose 2017-07-16 00:00:00 Completed [facility] Pneumococcal 13 Conjugate, PCV13 (Prevnar 13) 2017-07-16 00:00:00 Completed [facility] Influenza High Dose 2017-07-16 00:00:00 Completed [facility] Pneumococcal 13 Conjugate, PCV13 (Prevnar 13) 2017-07-16 00:00:00 Completed [facility] Influenza High Dose 2017-07-16 00:00:00 Completed [facility] Pneumococcal 13 Conjugate, PCV13 (Prevnar 13) 2017-07-16 00:00:00 Completed [facility] Influenza High Dose 2017-07-16 00:00:00 Completed [facility] Pneumococcal 13 Conjugate, PCV13 (Prevnar 13) 2017-07-16 00:00:00 Completed [facility] Influenza High Dose 2017-07-16 00:00:00 Completed [facility] Pneumococcal 13 Conjugate, PCV13 (Prevnar 13) 2017-07-16 00:00:00 Completed [facility] Influenza High Dose 2017-07-16 00:00:00 Completed [facility] Pneumococcal 13 Conjugate, PCV13 (Prevnar 13) 2017-07-16 00:00:00 Completed [facility] Influenza High Dose 2017-07-16 00:00:00 Completed [facility] Pneumococcal 13 Conjugate, PCV13 (Prevnar 13) 2017-07-16 00:00:00 Completed [facility] Influenza High Dose 2017-07-16 00:00:00 Completed [facility] Pneumococcal 13 Conjugate, PCV13 (Prevnar 13) 2017-07-16 00:00:00 Completed [facility] Influenza High Dose 2017-07-16 00:00:00 Completed [facility] Pneumococcal 13 Conjugate, PCV13 (Prevnar 13) 2017-07-16 00:00:00 Completed [facility] Influenza High Dose 2017-07-16 00:00:00 Completed [facility] Pneumococcal 13 Conjugate, PCV13 (Prevnar 13) 2017-07-16 00:00:00 Completed [facility] Influenza High Dose 2017-07-16 00:00:00 Completed [facility] Pneumococcal 13 Conjugate, PCV13 (Prevnar 13) 2017-07-16 00:00:00 Completed [facility] Influenza High Dose 2017-07-16 00:00:00 Completed [facility] Pneumococcal 13 Conjugate, PCV13 (Prevnar 13) 2017-07-16 00:00:00 Completed [facility] Influenza High Dose 2017-07-16 00:00:00 Completed [facility] Pneumococcal 13 Conjugate, PCV13 (Prevnar 13) 2017-07-16 00:00:00 Completed [facility] Influenza High Dose 2017-07-16 00:00:00 Completed [facility] Pneumococcal 13 Conjugate, PCV13 (Prevnar 13) 2017-07-16 00:00:00 Completed [facility] Influenza High Dose 2017-07-16 00:00:00 Completed [facility] Pneumococcal 13 Conjugate, PCV13 (Prevnar 13) 2017-07-16 00:00:00 Completed [facility] Influenza High Dose 2017-07-16 00:00:00 Completed [facility] Pneumococcal 13 Conjugate, PCV13 (Prevnar 13) 2017-07-16 00:00:00 Completed [facility] Influenza High Dose 2017-07-16 00:00:00 Completed [facility] Pneumococcal 13 Conjugate, PCV13 (Prevnar 13) 2017-07-16 00:00:00 Completed [facility] Influenza High Dose 2017-07-16 00:00:00 Completed [facility] Pneumococcal 13 Conjugate, PCV13 (Prevnar 13) 2017-07-16 00:00:00 Completed [facility] Influenza High Dose 2017-07-16 00:00:00 Completed [facility] Pneumococcal 13 Conjugate, PCV13 (Prevnar 13) 2017-07-16 00:00:00 Completed [facility] Influenza High Dose 2017-07-16 00:00:00 Completed [facility] Pneumococcal 13 Conjugate, PCV13 (Prevnar 13) 2017-07-16 00:00:00 Completed [facility] Influenza High Dose 2017-07-16 00:00:00 Completed [facility] Pneumococcal 13 Conjugate, PCV13 (Prevnar 13) 2017-07-16 00:00:00 Completed [facility] Influenza High Dose 2017-07-16 00:00:00 Completed [facility] Pneumococcal 13 Conjugate, PCV13 (Prevnar 13) 2017-07-16 00:00:00 Completed [facility] Influenza High Dose 2017-07-16 00:00:00 Completed [facility] Pneumococcal 13 Conjugate, PCV13 (Prevnar 13) 2017-07-16 00:00:00 Completed [facility] Influenza High Dose 2017-07-16 00:00:00 Completed [facility] Pneumococcal 13 Conjugate, PCV13 (Prevnar 13) 2017-07-16 00:00:00 Completed [facility] Influenza High Dose 2017-07-16 00:00:00 Completed [facility] Pneumococcal 13 Conjugate, PCV13 (Prevnar 13) 2017-07-16 00:00:00 Completed [facility] Influenza High Dose 2017-07-16 00:00:00 Completed [facility] Pneumococcal 13 Conjugate, PCV13 (Prevnar 13) 2017-07-16 00:00:00 Completed [facility] Influenza High Dose 2017-07-16 00:00:00 Completed [facility] Pneumococcal 13 Conjugate, PCV13 (Prevnar 13) 2017-07-16 00:00:00 Completed [facility] Influenza High Dose 2017-07-16 00:00:00 Completed [facility] Pneumococcal 13 Conjugate, PCV13 (Prevnar 13) 2017-07-16 00:00:00 Completed [facility] Influenza High Dose 2017-07-16 00:00:00 Completed [facility] Pneumococcal 13 Conjugate, PCV13 (Prevnar 13) 2017-07-16 00:00:00 Completed [facility] Influenza High Dose 2017-07-16 00:00:00 Completed [facility] Pneumococcal 13 Conjugate, PCV13 (Prevnar 13) 2017-07-16 00:00:00 Completed [facility] Influenza High Dose 2017-07-16 00:00:00 Completed [facility] Pneumococcal 13 Conjugate, PCV13 (Prevnar 13) 2017-07-16 00:00:00 Completed [facility] Influenza High Dose 2017-07-16 00:00:00 Completed [facility] Pneumococcal 13 Conjugate, PCV13 (Prevnar 13) 2017-07-16 00:00:00 Completed [facility] Influenza High Dose 2017-07-16 00:00:00 Completed [facility] Pneumococcal 13 Conjugate, PCV13 (Prevnar 13) 2017-07-16 00:00:00 Completed [facility] Influenza High Dose 2017-07-16 00:00:00 Completed [facility] Pneumococcal 13 Conjugate, PCV13 (Prevnar 13) 2017-07-16 00:00:00 Completed [facility] Influenza High Dose 2017-07-16 00:00:00 Completed [facility] Pneumococcal 13 Conjugate, PCV13 (Prevnar 13) 2017-07-16 00:00:00 Completed [facility] Influenza High Dose 2017-07-16 00:00:00 Completed [facility] Pneumococcal 13 Conjugate, PCV13 (Prevnar 13) 2017-07-16 00:00:00 Completed [facility] Influenza High Dose 2017-07-16 00:00:00 Completed [facility] Pneumococcal 13 Conjugate, PCV13 (Prevnar 13) 2017-07-16 00:00:00 Completed [facility] Influenza High Dose 2017-07-16 00:00:00 Completed [facility] Pneumococcal 13 Conjugate, PCV13 (Prevnar 13) 2017-07-16 00:00:00 Completed [facility] Influenza High Dose 2017-07-16 00:00:00 Completed [facility] Pneumococcal 13 Conjugate, PCV13 (Prevnar 13) 2017-07-16 00:00:00 Completed [facility] Influenza High Dose 2017-07-16 00:00:00 Completed [facility] Pneumococcal 13 Conjugate, PCV13 (Prevnar 13) 2017-07-16 00:00:00 Completed [facility] Influenza High Dose 2017-07-16 00:00:00 Completed [facility] Pneumococcal 13 Conjugate, PCV13 (Prevnar 13) 2017-07-16 00:00:00 Completed [facility] Influenza High Dose 2017-07-16 00:00:00 Completed [facility] Pneumococcal 13 Conjugate, PCV13 (Prevnar 13) 2017-07-16 00:00:00 Completed [facility] Influenza High Dose 2017-07-16 00:00:00 Completed [facility] Pneumococcal 13 Conjugate, PCV13 (Prevnar 13) 2017-07-16 00:00:00 Completed [facility] Influenza High Dose 2017-07-16 00:00:00 Completed [facility] Pneumococcal 13 Conjugate, PCV13 (Prevnar 13) 2017-07-16 00:00:00 Completed [facility] Influenza High Dose 2017-07-16 00:00:00 Completed [facility] Pneumococcal 13 Conjugate, PCV13 (Prevnar 13) 2017-07-16 00:00:00 Completed [facility] Influenza High Dose 2017-07-16 00:00:00 Completed [facility] Pneumococcal 13 Conjugate, PCV13 (Prevnar 13) 2017-07-16 00:00:00 Completed [facility] Influenza High Dose 2017-07-16 00:00:00 Completed [facility] Pneumococcal 13 Conjugate, PCV13 (Prevnar 13) 2017-07-16 00:00:00 Completed [facility] Influenza High Dose 2017-07-16 00:00:00 Completed [facility] Pneumococcal 13 Conjugate, PCV13 (Prevnar 13) 2017-07-16 00:00:00 Completed [facility] Influenza High Dose 2017-07-16 00:00:00 Completed [facility] Pneumococcal 13 Conjugate, PCV13 (Prevnar 13) 2017-07-16 00:00:00 Completed [facility] Influenza High Dose 2017-07-16 00:00:00 Completed [facility] Pneumococcal 13 Conjugate, PCV13 (Prevnar 13) 2017-07-16 00:00:00 Completed [facility] Influenza High Dose 2017-07-16 00:00:00 Completed [facility] Pneumococcal 13 Conjugate, PCV13 (Prevnar 13) 2017-07-16 00:00:00 Completed [facility] Influenza High Dose 2017-07-16 00:00:00 Completed [facility] Pneumococcal 13 Conjugate, PCV13 (Prevnar 13) 2017-07-16 00:00:00 Completed [facility] Influenza High Dose 2017-07-16 00:00:00 Completed [facility] Pneumococcal 13 Conjugate, PCV13 (Prevnar 13) 2017-07-16 00:00:00 Completed [facility] Influenza High Dose 2017-07-16 00:00:00 Completed [facility] Pneumococcal 13 Conjugate, PCV13 (Prevnar 13) 2017-07-16 00:00:00 Completed [facility] Influenza High Dose 2017-07-16 00:00:00 Completed [facility] Pneumococcal 13 Conjugate, PCV13 (Prevnar 13) 2017-07-16 00:00:00 Completed [facility] Influenza High Dose 2017-07-16 00:00:00 Completed [facility] Pneumococcal 13 Conjugate, PCV13 (Prevnar 13) 2017-07-16 00:00:00 Completed [facility] Influenza High Dose 2017-07-16 00:00:00 Completed [facility] Pneumococcal 13 Conjugate, PCV13 (Prevnar 13) 2017-07-16 00:00:00 Completed [facility] Influenza High Dose 2017-07-16 00:00:00 Completed [facility] Pneumococcal 13 Conjugate, PCV13 (Prevnar 13) 2017-07-16 00:00:00 Completed [facility] Influenza High Dose 2017-07-16 00:00:00 Completed [facility] Pneumococcal 13 Conjugate, PCV13 (Prevnar 13) 2017-07-16 00:00:00 Completed [facility] Influenza High Dose 2017-07-16 00:00:00 Completed [facility] Pneumococcal 13 Conjugate, PCV13 (Prevnar 13) 2017-07-16 00:00:00 Completed [facility] Influenza High Dose 2017-07-16 00:00:00 Completed [facility] Pneumococcal 13 Conjugate, PCV13 (Prevnar 13) 2017-07-16 00:00:00 Completed [facility] Influenza High Dose 2017-07-16 00:00:00 Completed [facility] Pneumococcal 13 Conjugate, PCV13 (Prevnar 13) 2017-07-16 00:00:00 Completed [facility] Influenza High Dose 2017-07-16 00:00:00 Completed [facility] Pneumococcal 13 Conjugate, PCV13 (Prevnar 13) 2017-07-16 00:00:00 Completed [facility] Influenza High Dose 2017-07-16 00:00:00 Completed [facility] Pneumococcal 13 Conjugate, PCV13 (Prevnar 13) 2017-07-16 00:00:00 Completed [facility] Influenza High Dose 2017-07-16 00:00:00 Completed [facility] Pneumococcal 13 Conjugate, PCV13 (Prevnar 13) 2017-07-16 00:00:00 Completed [facility] Influenza High Dose 2017-07-16 00:00:00 Completed [facility] Pneumococcal 13 Conjugate, PCV13 (Prevnar 13) 2017-07-16 00:00:00 Completed [facility] Influenza High Dose 2017-07-16 00:00:00 Completed [facility] Pneumococcal 13 Conjugate, PCV13 (Prevnar 13) 2017-07-16 00:00:00 Completed [facility] Influenza High Dose 2017-07-16 00:00:00 Completed [facility] Pneumococcal 13 Conjugate, PCV13 (Prevnar 13) 2017-07-16 00:00:00 Completed [facility] Influenza High Dose 2017-07-16 00:00:00 Completed [facility] Pneumococcal 13 Conjugate, PCV13 (Prevnar 13) 2017-07-16 00:00:00 Completed [facility] Influenza High Dose 2017-07-16 00:00:00 Completed [facility] Pneumococcal 13 Conjugate, PCV13 (Prevnar 13) 2017-07-16 00:00:00 Completed [facility] Influenza High Dose 2017-07-16 00:00:00 Completed [facility] Pneumococcal 13 Conjugate, PCV13 (Prevnar 13) 2017-07-16 00:00:00 Completed [facility] Influenza High Dose 2017-07-16 00:00:00 Completed [facility] Pneumococcal 13 Conjugate, PCV13 (Prevnar 13) 2017-07-16 00:00:00 Completed [facility] Influenza High Dose 2017-07-16 00:00:00 Completed [facility] Pneumococcal 13 Conjugate, PCV13 (Prevnar 13) 2017-07-16 00:00:00 Completed [facility] Influenza High Dose 2017-07-16 00:00:00 Completed [facility] Pneumococcal 13 Conjugate, PCV13 (Prevnar 13) 2017-07-16 00:00:00 Completed [facility] Influenza High Dose 2017-07-16 00:00:00 Completed [facility] Pneumococcal 13 Conjugate, PCV13 (Prevnar 13) 2017-07-16 00:00:00 Completed [facility] Influenza High Dose 2017-07-16 00:00:00 Completed [facility] Pneumococcal 13 Conjugate, PCV13 (Prevnar 13) 2017-07-16 00:00:00 Completed [facility] Influenza High Dose 2017-07-16 00:00:00 Completed [facility] Pneumococcal 13 Conjugate, PCV13 (Prevnar 13) 2017-07-16 00:00:00 Completed [facility] Influenza High Dose 2017-07-16 00:00:00 Completed [facility] Pneumococcal 13 Conjugate, PCV13 (Prevnar 13) 2017-07-16 00:00:00 Completed [facility] Influenza High Dose 2017-07-16 00:00:00 Completed [facility] Pneumococcal 13 Conjugate, PCV13 (Prevnar 13) 2017-07-16 00:00:00 Completed [facility] Influenza High Dose 2017-07-16 00:00:00 Completed [facility] Pneumococcal 13 Conjugate, PCV13 (Prevnar 13) 2017-07-16 00:00:00 Completed [facility] Influenza High Dose 2017-07-16 00:00:00 Completed [facility] Pneumococcal 13 Conjugate, PCV13 (Prevnar 13) 2017-07-16 00:00:00 Completed [facility] Influenza High Dose 2017-07-16 00:00:00 Completed [facility] Pneumococcal 13 Conjugate, PCV13 (Prevnar 13) 2017-07-16 00:00:00 Completed [facility] Influenza High Dose 2017-07-16 00:00:00 Completed [facility] Pneumococcal 13 Conjugate, PCV13 (Prevnar 13) 2017-07-16 00:00:00 Completed [facility] Influenza High Dose 2017-07-16 00:00:00 Completed [facility] Pneumococcal 13 Conjugate, PCV13 (Prevnar 13) 2017-07-16 00:00:00 Completed [facility] Influenza High Dose 2017-07-16 00:00:00 Completed [facility] Pneumococcal Polysaccharide, PPSV23 (PNEUMOVAX) 2016-10-27 00:00:00 Completed [facility] Pneumococcal Polysaccharide, PPSV23 (PNEUMOVAX) 2016-10-27 00:00:00 Completed [facility] Pneumococcal Polysaccharide, PPSV23 (PNEUMOVAX) 2016-10-27 00:00:00 Completed [facility] Pneumococcal Polysaccharide, PPSV23 (PNEUMOVAX) 2016-10-27 00:00:00 Completed [facility] Pneumococcal Polysaccharide, PPSV23 (PNEUMOVAX) 2016-10-27 00:00:00 Completed [facility] Pneumococcal Polysaccharide, PPSV23 (PNEUMOVAX) 2016-10-27 00:00:00 Completed [facility] Pneumococcal Polysaccharide, PPSV23 (PNEUMOVAX) 2016-10-27 00:00:00 Completed [facility] Pneumococcal Polysaccharide, PPSV23 (PNEUMOVAX) 2016-10-27 00:00:00 Completed [facility] Pneumococcal Polysaccharide, PPSV23 (PNEUMOVAX) 2016-10-27 00:00:00 Completed [facility] Pneumococcal Polysaccharide, PPSV23 (PNEUMOVAX) 2016-10-27 00:00:00 Completed [facility] Pneumococcal Polysaccharide, PPSV23 (PNEUMOVAX) 2016-10-27 00:00:00 Completed [facility] Pneumococcal Polysaccharide, PPSV23 (PNEUMOVAX) 2016-10-27 00:00:00 Completed [facility] Pneumococcal Polysaccharide, PPSV23 (PNEUMOVAX) 2016-10-27 00:00:00 Completed [facility] Pneumococcal Polysaccharide, PPSV23 (PNEUMOVAX) 2016-10-27 00:00:00 Completed [facility] Pneumococcal Polysaccharide, PPSV23 (PNEUMOVAX) 2016-10-27 00:00:00 Completed [facility] Pneumococcal Polysaccharide, PPSV23 (PNEUMOVAX) 2016-10-27 00:00:00 Completed [facility] Pneumococcal Polysaccharide, PPSV23 (PNEUMOVAX) 2016-10-27 00:00:00 Completed [facility] Pneumococcal Polysaccharide, PPSV23 (PNEUMOVAX) 2016-10-27 00:00:00 Completed [facility] Pneumococcal Polysaccharide, PPSV23 (PNEUMOVAX) 2016-10-27 00:00:00 Completed [facility] Pneumococcal Polysaccharide, PPSV23 (PNEUMOVAX) 2016-10-27 00:00:00 Completed [facility] Pneumococcal Polysaccharide, PPSV23 (PNEUMOVAX) 2016-10-27 00:00:00 Completed [facility] Pneumococcal Polysaccharide, PPSV23 (PNEUMOVAX) 2016-10-27 00:00:00 Completed [facility] Pneumococcal Polysaccharide, PPSV23 (PNEUMOVAX) 2016-10-27 00:00:00 Completed [facility] Pneumococcal Polysaccharide, PPSV23 (PNEUMOVAX) 2016-10-27 00:00:00 Completed [facility] Pneumococcal Polysaccharide, PPSV23 (PNEUMOVAX) 2016-10-27 00:00:00 Completed [facility] Pneumococcal Polysaccharide, PPSV23 (PNEUMOVAX) 2016-10-27 00:00:00 Completed [facility] Pneumococcal Polysaccharide, PPSV23 (PNEUMOVAX) 2016-10-27 00:00:00 Completed [facility] Pneumococcal Polysaccharide, PPSV23 (PNEUMOVAX) 2016-10-27 00:00:00 Completed [facility] Pneumococcal Polysaccharide, PPSV23 (PNEUMOVAX) 2016-10-27 00:00:00 Completed [facility] Pneumococcal Polysaccharide, PPSV23 (PNEUMOVAX) 2016-10-27 00:00:00 Completed [facility] Pneumococcal Polysaccharide, PPSV23 (PNEUMOVAX) 2016-10-27 00:00:00 Completed [facility] Pneumococcal Polysaccharide, PPSV23 (PNEUMOVAX) 2016-10-27 00:00:00 Completed [facility] Pneumococcal Polysaccharide, PPSV23 (PNEUMOVAX) 2016-10-27 00:00:00 Completed [facility] Pneumococcal Polysaccharide, PPSV23 (PNEUMOVAX) 2016-10-27 00:00:00 Completed [facility] Pneumococcal Polysaccharide, PPSV23 (PNEUMOVAX) 2016-10-27 00:00:00 Completed [facility] Pneumococcal Polysaccharide, PPSV23 (PNEUMOVAX) 2016-10-27 00:00:00 Completed [facility] Pneumococcal Polysaccharide, PPSV23 (PNEUMOVAX) 2016-10-27 00:00:00 Completed [facility] Pneumococcal Polysaccharide, PPSV23 (PNEUMOVAX) 2016-10-27 00:00:00 Completed [facility] Pneumococcal Polysaccharide, PPSV23 (PNEUMOVAX) 2016-10-27 00:00:00 Completed [facility] Pneumococcal Polysaccharide, PPSV23 (PNEUMOVAX) 2016-10-27 00:00:00 Completed [facility] Pneumococcal Polysaccharide, PPSV23 (PNEUMOVAX) 2016-10-27 00:00:00 Completed [facility] Pneumococcal Polysaccharide, PPSV23 (PNEUMOVAX) 2016-10-27 00:00:00 Completed [facility] Pneumococcal Polysaccharide, PPSV23 (PNEUMOVAX) 2016-10-27 00:00:00 Completed [facility] Pneumococcal Polysaccharide, PPSV23 (PNEUMOVAX) 2016-10-27 00:00:00 Completed [facility] Pneumococcal Polysaccharide, PPSV23 (PNEUMOVAX) 2016-10-27 00:00:00 Completed [facility] Pneumococcal Polysaccharide, PPSV23 (PNEUMOVAX) 2016-10-27 00:00:00 Completed [facility] Pneumococcal Polysaccharide, PPSV23 (PNEUMOVAX) 2016-10-27 00:00:00 Completed [facility] Pneumococcal Polysaccharide, PPSV23 (PNEUMOVAX) 2016-10-27 00:00:00 Completed [facility] Pneumococcal Polysaccharide, PPSV23 (PNEUMOVAX) 2016-10-27 00:00:00 Completed [facility] Pneumococcal Polysaccharide, PPSV23 (PNEUMOVAX) 2016-10-27 00:00:00 Completed [facility] Pneumococcal Polysaccharide, PPSV23 (PNEUMOVAX) 2016-10-27 00:00:00 Completed [facility] Pneumococcal Polysaccharide, PPSV23 (PNEUMOVAX) 2016-10-27 00:00:00 Completed [facility] Pneumococcal Polysaccharide, PPSV23 (PNEUMOVAX) 2016-10-27 00:00:00 Completed [facility] Pneumococcal Polysaccharide, PPSV23 (PNEUMOVAX) 2016-10-27 00:00:00 Completed [facility] Pneumococcal Polysaccharide, PPSV23 (PNEUMOVAX) 2016-10-27 00:00:00 Completed [facility] Pneumococcal Polysaccharide, PPSV23 (PNEUMOVAX) 2016-10-27 00:00:00 Completed [facility] Pneumococcal Polysaccharide, PPSV23 (PNEUMOVAX) 2016-10-27 00:00:00 Completed [facility] Pneumococcal Polysaccharide, PPSV23 (PNEUMOVAX) 2016-10-27 00:00:00 Completed [facility] Pneumococcal Polysaccharide, PPSV23 (PNEUMOVAX) 2016-10-27 00:00:00 Completed [facility] Pneumococcal Polysaccharide, PPSV23 (PNEUMOVAX) 2016-10-27 00:00:00 Completed [facility] Pneumococcal Polysaccharide, PPSV23 (PNEUMOVAX) 2016-10-27 00:00:00 Completed [facility] Pneumococcal Polysaccharide, PPSV23 (PNEUMOVAX) 2016-10-27 00:00:00 Completed [facility] Pneumococcal Polysaccharide, PPSV23 (PNEUMOVAX) 2016-10-27 00:00:00 Completed [facility] Pneumococcal Polysaccharide, PPSV23 (PNEUMOVAX) 2016-10-27 00:00:00 Completed [facility] Pneumococcal Polysaccharide, PPSV23 (PNEUMOVAX) 2016-10-27 00:00:00 Completed [facility] Pneumococcal Polysaccharide, PPSV23 (PNEUMOVAX) 2016-10-27 00:00:00 Completed [facility] Pneumococcal Polysaccharide, PPSV23 (PNEUMOVAX) 2016-10-27 00:00:00 Completed [facility] Pneumococcal Polysaccharide, PPSV23 (PNEUMOVAX) 2016-10-27 00:00:00 Completed [facility] Pneumococcal Polysaccharide, PPSV23 (PNEUMOVAX) 2016-10-27 00:00:00 Completed [facility] Pneumococcal Polysaccharide, PPSV23 (PNEUMOVAX) 2016-10-27 00:00:00 Completed [facility] Pneumococcal Polysaccharide, PPSV23 (PNEUMOVAX) 2016-10-27 00:00:00 Completed [facility] Pneumococcal Polysaccharide, PPSV23 (PNEUMOVAX) 2016-10-27 00:00:00 Completed [facility] Pneumococcal Polysaccharide, PPSV23 (PNEUMOVAX) 2016-10-27 00:00:00 Completed [facility] Pneumococcal Polysaccharide, PPSV23 (PNEUMOVAX) 2016-10-27 00:00:00 Completed [facility] Pneumococcal Polysaccharide, PPSV23 (PNEUMOVAX) 2016-10-27 00:00:00 Completed [facility] Pneumococcal Polysaccharide, PPSV23 (PNEUMOVAX) 2016-10-27 00:00:00 Completed [facility] Pneumococcal Polysaccharide, PPSV23 (PNEUMOVAX) 2016-10-27 00:00:00 Completed [facility] Pneumococcal Polysaccharide, PPSV23 (PNEUMOVAX) 2016-10-27 00:00:00 Completed [facility] Pneumococcal Polysaccharide, PPSV23 (PNEUMOVAX) 2016-10-27 00:00:00 Completed [facility] Pneumococcal Polysaccharide, PPSV23 (PNEUMOVAX) 2016-10-27 00:00:00 Completed [facility] Pneumococcal Polysaccharide, PPSV23 (PNEUMOVAX) 2016-10-27 00:00:00 Completed [facility] Pneumococcal Polysaccharide, PPSV23 (PNEUMOVAX) 2016-10-27 00:00:00 Completed [facility] Pneumococcal Polysaccharide, PPSV23 (PNEUMOVAX) 2016-10-27 00:00:00 Completed [facility] Pneumococcal Polysaccharide, PPSV23 (PNEUMOVAX) 2016-10-27 00:00:00 Completed [facility] Pneumococcal Polysaccharide, PPSV23 (PNEUMOVAX) 2016-10-27 00:00:00 Completed [facility] Pneumococcal Polysaccharide, PPSV23 (PNEUMOVAX) 2016-10-27 00:00:00 Completed [facility] Pneumococcal Polysaccharide, PPSV23 (PNEUMOVAX) 2016-10-27 00:00:00 Completed [facility] Pneumococcal Polysaccharide, PPSV23 (PNEUMOVAX) 2016-10-27 00:00:00 Completed [facility] Pneumococcal Polysaccharide, PPSV23 (PNEUMOVAX) 2016-10-27 00:00:00 Completed [facility] Pneumococcal Polysaccharide, PPSV23 (PNEUMOVAX) 2016-10-27 00:00:00 Completed [facility] Pneumococcal Polysaccharide, PPSV23 (PNEUMOVAX) 2016-10-27 00:00:00 Completed [facility] Pneumococcal Polysaccharide, PPSV23 (PNEUMOVAX) 2016-10-27 00:00:00 Completed [facility] Pneumococcal Polysaccharide, PPSV23 (PNEUMOVAX) 2016-10-27 00:00:00 Completed [facility] Pneumococcal Polysaccharide, PPSV23 (PNEUMOVAX) 2016-10-27 00:00:00 Completed [facility] Pneumococcal Polysaccharide, PPSV23 (PNEUMOVAX) 2016-10-27 00:00:00 Completed [facility] Pneumococcal Polysaccharide, PPSV23 (PNEUMOVAX) 2016-10-27 00:00:00 Completed [facility] Pneumococcal Polysaccharide, PPSV23 (PNEUMOVAX) 2016-10-27 00:00:00 Completed [facility] Pneumococcal Polysaccharide, PPSV23 (PNEUMOVAX) 2016-10-27 00:00:00 Completed [facility] Pneumococcal Polysaccharide, PPSV23 (PNEUMOVAX) 2016-10-27 00:00:00 Completed [facility] Pneumococcal Polysaccharide, PPSV23 (PNEUMOVAX) 2016-10-27 00:00:00 Completed [facility] Pneumococcal Polysaccharide, PPSV23 (PNEUMOVAX) 2016-10-27 00:00:00 Completed [facility] Pneumococcal Polysaccharide, PPSV23 (PNEUMOVAX) 2016-10-27 00:00:00 Completed [facility] Pneumococcal Polysaccharide, PPSV23 (PNEUMOVAX) 2016-10-27 00:00:00 Completed [facility] Pneumococcal Polysaccharide, PPSV23 (PNEUMOVAX) 2016-10-27 00:00:00 Completed [facility] Pneumococcal Polysaccharide, PPSV23 (PNEUMOVAX) 2016-10-27 00:00:00 Completed [facility] Pneumococcal Polysaccharide, PPSV23 (PNEUMOVAX) 2016-10-27 00:00:00 Completed [facility] Pneumococcal Polysaccharide, PPSV23 (PNEUMOVAX) 2016-10-27 00:00:00 Completed [facility] Pneumococcal Polysaccharide, PPSV23 (PNEUMOVAX) 2016-10-27 00:00:00 Completed [facility] Pneumococcal Polysaccharide, PPSV23 (PNEUMOVAX) 2016-10-27 00:00:00 Completed [facility] Pneumococcal Polysaccharide, PPSV23 (PNEUMOVAX) 2016-10-27 00:00:00 Completed [facility] Pneumococcal Polysaccharide, PPSV23 (PNEUMOVAX) 2016-10-27 00:00:00 Completed [facility] Pneumococcal Polysaccharide, PPSV23 (PNEUMOVAX) 2016-10-27 00:00:00 Completed [facility] Pneumococcal Polysaccharide, PPSV23 (PNEUMOVAX) 2016-10-27 00:00:00 Completed [facility] Pneumococcal Polysaccharide, PPSV23 (PNEUMOVAX) 2016-10-27 00:00:00 Completed [facility] Pneumococcal Polysaccharide, PPSV23 (PNEUMOVAX) 2016-10-27 00:00:00 Completed [facility] Pneumococcal Polysaccharide, PPSV23 (PNEUMOVAX) 2016-10-27 00:00:00 Completed [facility] Pneumococcal Polysaccharide, PPSV23 (PNEUMOVAX) 2016-10-27 00:00:00 Completed [facility] Pneumococcal Polysaccharide, PPSV23 (PNEUMOVAX) 2016-10-27 00:00:00 Completed [facility] Pneumococcal Polysaccharide, PPSV23 (PNEUMOVAX) 2016-10-27 00:00:00 Completed [facility] Pneumococcal Polysaccharide, PPSV23 (PNEUMOVAX) 2016-10-27 00:00:00 Completed [facility] Pneumococcal Polysaccharide, PPSV23 (PNEUMOVAX) 2016-10-27 00:00:00 Completed [facility] Pneumococcal Polysaccharide, PPSV23 (PNEUMOVAX) 2016-10-27 00:00:00 Completed [facility] Pneumococcal Polysaccharide, PPSV23 (PNEUMOVAX) 2016-10-27 00:00:00 Completed [facility] Pneumococcal Polysaccharide, PPSV23 (PNEUMOVAX) 2016-10-27 00:00:00 Completed [facility] Pneumococcal Polysaccharide, PPSV23 (PNEUMOVAX) 2016-10-27 00:00:00 Completed [facility] Pneumococcal Polysaccharide, PPSV23 (PNEUMOVAX) 2016-10-27 00:00:00 Completed [facility] Pneumococcal Polysaccharide, PPSV23 (PNEUMOVAX) 2016-10-27 00:00:00 Completed [facility] Pneumococcal Polysaccharide, PPSV23 (PNEUMOVAX) 2016-10-27 00:00:00 Completed [facility] Pneumococcal Polysaccharide, PPSV23 (PNEUMOVAX) 2016-10-27 00:00:00 Completed [facility] Pneumococcal Polysaccharide, PPSV23 (PNEUMOVAX) 2016-10-27 00:00:00 Completed [facility] Pneumococcal Polysaccharide, PPSV23 (PNEUMOVAX) 2016-10-27 00:00:00 Completed [facility] Pneumococcal Polysaccharide, PPSV23 (PNEUMOVAX) 2016-10-27 00:00:00 Completed [facility] Pneumococcal Polysaccharide, PPSV23 (PNEUMOVAX) Unknown Completed [facility] Pneumococcal 13 Conjugate, PCV13 (Prevnar 13) Unknown Completed [facility] Influenza High Dose Unknown Completed [facility] Influenza High Dose Unknown Completed [facility] TD, NOS Unknown Completed [facility] Influenza High Dose Unknown Completed [facility] Influenza High Dose Quad Unknown Completed [facility] SARS-COV-2 COVID-19 PFIZER VACCINE Unknown Completed [facility] SARS-COV-2 COVID-19 PFIZER VACCINE Unknown Completed [facility] SARS-COV-2 COVID-19 PFIZER VACCINE Unknown Completed [facility] TD, NOS Unknown Completed [facility] Pneumococcal Polysaccharide, PPSV23 (PNEUMOVAX) Unknown Completed [facility] Pneumococcal 13 Conjugate, PCV13 (Prevnar 13) Unknown Completed [facility] Influenza High Dose Unknown Completed [facility] Influenza High Dose Unknown Completed [facility] TD, NOS Unknown Completed [facility] Influenza High Dose Unknown Completed [facility] Influenza High Dose Quad Unknown Completed [facility] SARS-COV-2 COVID-19 PFIZER VACCINE Unknown Completed [facility] SARS-COV-2 COVID-19 PFIZER VACCINE Unknown Completed [facility] SARS-COV-2 COVID-19 PFIZER VACCINE Unknown Completed [facility] TD, NOS Unknown Completed [facility] Pneumococcal Polysaccharide, PPSV23 (PNEUMOVAX) Unknown Completed [facility] Pneumococcal 13 Conjugate, PCV13 (Prevnar 13) Unknown Completed [facility] Influenza High Dose Unknown Completed [facility] Influenza High Dose Unknown Completed [facility] TD, NOS Unknown Completed [facility] Influenza High Dose Unknown Completed [facility] Influenza High Dose Quad Unknown Completed [facility] SARS-COV-2 COVID-19 PFIZER VACCINE Unknown Completed [facility] SARS-COV-2 COVID-19 PFIZER VACCINE Unknown Completed [facility] SARS-COV-2 COVID-19 PFIZER VACCINE Unknown Completed [facility] TD, NOS Unknown Completed [facility] Pneumococcal Polysaccharide, PPSV23 (PNEUMOVAX) Unknown Completed [facility] Pneumococcal 13 Conjugate, PCV13 (Prevnar 13) Unknown Completed [facility] Influenza High Dose Unknown Completed [facility] Influenza High Dose Unknown Completed [facility] TD, NOS Unknown Completed [facility] Influenza High Dose Unknown Completed [facility] Influenza High Dose Quad Unknown Completed [facility] SARS-COV-2 COVID-19 PFIZER VACCINE Unknown Completed [facility] SARS-COV-2 COVID-19 PFIZER VACCINE Unknown Completed [facility] SARS-COV-2 COVID-19 PFIZER VACCINE Unknown Completed [facility] TD, NOS Unknown Completed [facility] Pneumococcal Polysaccharide, PPSV23 (PNEUMOVAX) Unknown Completed [facility] Pneumococcal 13 Conjugate, PCV13 (Prevnar 13) Unknown Completed [facility] Influenza High Dose Unknown Completed [facility] Influenza High Dose Unknown Completed [facility] TD, NOS Unknown Completed [facility] Influenza High Dose Unknown Completed [facility] Influenza High Dose Quad Unknown Completed [facility] SARS-COV-2 COVID-19 PFIZER VACCINE Unknown Completed [facility] SARS-COV-2 COVID-19 PFIZER VACCINE Unknown Completed [facility] SARS-COV-2 COVID-19 PFIZER VACCINE Unknown Completed [facility] TD, NOS Unknown Completed [facility] Pneumococcal Polysaccharide, PPSV23 (PNEUMOVAX) Unknown Completed [facility] Pneumococcal 13 Conjugate, PCV13 (Prevnar 13) Unknown Completed [facility] Influenza High Dose Unknown Completed [facility] Influenza High Dose Unknown Completed [facility] TD, NOS Unknown Completed [facility] Influenza High Dose Unknown Completed [facility] Influenza High Dose Quad Unknown Completed [facility] SARS-COV-2 COVID-19 PFIZER VACCINE Unknown Completed [facility] SARS-COV-2 COVID-19 PFIZER VACCINE Unknown Completed [facility] SARS-COV-2 COVID-19 PFIZER VACCINE Unknown Completed [facility] TD, NOS Unknown Completed [facility] Pneumococcal Polysaccharide, PPSV23 (PNEUMOVAX) Unknown Completed [facility] Pneumococcal 13 Conjugate, PCV13 (Prevnar 13) Unknown Completed [facility] Influenza High Dose Unknown Completed [facility] Influenza High Dose Unknown Completed [facility] TD, NOS Unknown Completed [facility] Influenza High Dose Unknown Completed [facility] Influenza High Dose Quad Unknown Completed [facility] SARS-COV-2 COVID-19 PFIZER VACCINE Unknown Completed [facility] SARS-COV-2 COVID-19 PFIZER VACCINE Unknown Completed [facility] SARS-COV-2 COVID-19 PFIZER VACCINE Unknown Completed [facility] TD, NOS Unknown Completed [facility] Pneumococcal Polysaccharide, PPSV23 (PNEUMOVAX) Unknown Completed [facility] Pneumococcal 13 Conjugate, PCV13 (Prevnar 13) Unknown Completed [facility] Influenza High Dose Unknown Completed [facility] Influenza High Dose Unknown Completed [facility] TD, NOS Unknown Completed [facility] Influenza High Dose Unknown Completed [facility] Influenza High Dose Quad Unknown Completed [facility] SARS-COV-2 COVID-19 PFIZER VACCINE Unknown Completed [facility] SARS-COV-2 COVID-19 PFIZER VACCINE Unknown Completed [facility] SARS-COV-2 COVID-19 PFIZER VACCINE Unknown Completed [facility] TD, NOS Unknown Completed [facility] Pneumococcal Polysaccharide, PPSV23 (PNEUMOVAX) Unknown Completed [facility] Pneumococcal 13 Conjugate, PCV13 (Prevnar 13) Unknown Completed [facility] Influenza High Dose Unknown Completed [facility] Influenza High Dose Unknown Completed [facility] TD, NOS Unknown Completed [facility] Influenza High Dose Unknown Completed [facility] Influenza High Dose Quad Unknown Completed [facility] SARS-COV-2 COVID-19 PFIZER VACCINE Unknown Completed [facility] SARS-COV-2 COVID-19 PFIZER VACCINE Unknown Completed [facility] SARS-COV-2 COVID-19 PFIZER VACCINE Unknown Completed [facility] TD, NOS Unknown Completed [facility] Pneumococcal Polysaccharide, PPSV23 (PNEUMOVAX) Unknown Completed [facility] Pneumococcal 13 Conjugate, PCV13 (Prevnar 13) Unknown Completed [facility] Influenza High Dose Unknown Completed [facility] Influenza High Dose Unknown Completed [facility] TD, NOS Unknown Completed [facility] Influenza High Dose Unknown Completed [facility] Influenza High Dose Quad Unknown Completed [facility] SARS-COV-2 COVID-19 PFIZER VACCINE Unknown Completed [facility] SARS-COV-2 COVID-19 PFIZER VACCINE Unknown Completed [facility] SARS-COV-2 COVID-19 PFIZER VACCINE Unknown Completed [facility] TD, NOS Unknown Completed [facility] Pneumococcal Polysaccharide, PPSV23 (PNEUMOVAX) Unknown Completed [facility] Pneumococcal 13 Conjugate, PCV13 (Prevnar 13) Unknown Completed [facility] Influenza High Dose Unknown Completed [facility] Influenza High Dose Unknown Completed [facility] TD, NOS Unknown Completed [facility] Influenza High Dose Unknown Completed [facility] Influenza High Dose Quad Unknown Completed [facility] SARS-COV-2 COVID-19 PFIZER VACCINE Unknown Completed [facility] SARS-COV-2 COVID-19 PFIZER VACCINE Unknown Completed [facility] SARS-COV-2 COVID-19 PFIZER VACCINE Unknown Completed [facility] TD, NOS Unknown Completed [facility] Pneumococcal Polysaccharide, PPSV23 (PNEUMOVAX) Unknown Completed [facility] Pneumococcal 13 Conjugate, PCV13 (Prevnar 13) Unknown Completed [facility] Influenza High Dose Unknown Completed [facility] Influenza High Dose Unknown Completed [facility] TD, NOS Unknown Completed [facility] Influenza High Dose Unknown Completed [facility] Influenza High Dose Quad Unknown Completed [facility] SARS-COV-2 COVID-19 PFIZER VACCINE Unknown Completed [facility] SARS-COV-2 COVID-19 PFIZER VACCINE Unknown Completed [facility] SARS-COV-2 COVID-19 PFIZER VACCINE Unknown Completed [facility] TD, NOS Unknown Completed [facility] Pneumococcal Polysaccharide, PPSV23 (PNEUMOVAX) Unknown Completed [facility] Pneumococcal 13 Conjugate, PCV13 (Prevnar 13) Unknown Completed [facility] Influenza High Dose Unknown Completed [facility] Influenza High Dose Unknown Completed [facility] TD, NOS Unknown Completed [facility] Influenza High Dose Unknown Completed [facility] Influenza High Dose Quad Unknown Completed [facility] SARS-COV-2 COVID-19 PFIZER VACCINE Unknown Completed [facility] SARS-COV-2 COVID-19 PFIZER VACCINE Unknown Completed [facility] SARS-COV-2 COVID-19 PFIZER VACCINE Unknown Completed [facility] TD, NOS Unknown Completed [facility] Pneumococcal Polysaccharide, PPSV23 (PNEUMOVAX) Unknown Completed [facility] Pneumococcal 13 Conjugate, PCV13 (Prevnar 13) Unknown Completed [facility] Influenza High Dose Unknown Completed [facility] Influenza High Dose Unknown Completed [facility] TD, NOS Unknown Completed [facility] Influenza High Dose Unknown Completed [facility] Influenza High Dose Quad Unknown Completed [facility] SARS-COV-2 COVID-19 PFIZER VACCINE Unknown Completed [facility] SARS-COV-2 COVID-19 PFIZER VACCINE Unknown Completed [facility] SARS-COV-2 COVID-19 PFIZER VACCINE Unknown Completed [facility] TD, NOS Unknown Completed [facility] Pneumococcal Polysaccharide, PPSV23 (PNEUMOVAX) Unknown Completed [facility] Pneumococcal 13 Conjugate, PCV13 (Prevnar 13) Unknown Completed [facility] Influenza High Dose Unknown Completed [facility] Influenza High Dose Unknown Completed [facility] TD, NOS Unknown Completed [facility] Influenza High Dose Unknown Completed [facility] Influenza High Dose Quad Unknown Completed [facility] SARS-COV-2 COVID-19 PFIZER VACCINE Unknown Completed [facility] SARS-COV-2 COVID-19 PFIZER VACCINE Unknown Completed [facility] SARS-COV-2 COVID-19 PFIZER VACCINE Unknown Completed [facility] TD, NOS Unknown Completed [facility] Pneumococcal Polysaccharide, PPSV23 (PNEUMOVAX) Unknown Completed [facility] Pneumococcal 13 Conjugate, PCV13 (Prevnar 13) Unknown Completed [facility] Influenza High Dose Unknown Completed [facility] Influenza High Dose Unknown Completed [facility] TD, NOS Unknown Completed [facility] Influenza High Dose Unknown Completed [facility] Influenza High Dose Quad Unknown Completed [facility] SARS-COV-2 COVID-19 PFIZER VACCINE Unknown Completed [facility] SARS-COV-2 COVID-19 PFIZER VACCINE Unknown Completed [facility] SARS-COV-2 COVID-19 PFIZER VACCINE Unknown Completed [facility] TD, NOS Unknown Completed [facility] Pneumococcal Polysaccharide, PPSV23 (PNEUMOVAX) Unknown Completed [facility] Pneumococcal 13 Conjugate, PCV13 (Prevnar 13) Unknown Completed [facility] Influenza High Dose Unknown Completed [facility] Influenza High Dose Unknown Completed [facility] TD, NOS Unknown Completed [facility] Influenza High Dose Unknown Completed [facility] Influenza High Dose Quad Unknown Completed [facility] SARS-COV-2 COVID-19 PFIZER VACCINE Unknown Completed [facility] SARS-COV-2 COVID-19 PFIZER VACCINE Unknown Completed [facility] SARS-COV-2 COVID-19 PFIZER VACCINE Unknown Completed [facility] TD, NOS Unknown Completed [facility] Pneumococcal Polysaccharide, PPSV23 (PNEUMOVAX) Unknown Completed [facility] Pneumococcal 13 Conjugate, PCV13 (Prevnar 13) Unknown Completed [facility] Influenza High Dose Unknown Completed [facility] Influenza High Dose Unknown Completed [facility] TD, NOS Unknown Completed [facility] Influenza High Dose Unknown Completed [facility] Influenza High Dose Quad Unknown Completed [facility] SARS-COV-2 COVID-19 PFIZER VACCINE Unknown Completed [facility] SARS-COV-2 COVID-19 PFIZER VACCINE Unknown Completed [facility] SARS-COV-2 COVID-19 PFIZER VACCINE Unknown Completed [facility] TD, NOS Unknown Completed [facility] Pneumococcal Polysaccharide, PPSV23 (PNEUMOVAX) Unknown Completed [facility] Pneumococcal 13 Conjugate, PCV13 (Prevnar 13) Unknown Completed [facility] Influenza High Dose Unknown Completed [facility] Influenza High Dose Unknown Completed [facility] TD, NOS Unknown Completed [facility] Influenza High Dose Unknown Completed [facility] Influenza High Dose Quad Unknown Completed [facility] SARS-COV-2 COVID-19 PFIZER VACCINE Unknown Completed [facility] SARS-COV-2 COVID-19 PFIZER VACCINE Unknown Completed [facility] Pneumococcal Polysaccharide, PPSV23 (PNEUMOVAX) Unknown Completed [facility] Pneumococcal 13 Conjugate, PCV13 (Prevnar 13) Unknown Completed [facility] Influenza High Dose Unknown Completed [facility] Influenza High Dose Unknown Completed [facility] TD, NOS Unknown Completed [facility] Influenza High Dose Unknown Completed [facility] Influenza High Dose Quad Unknown Completed [facility] SARS-COV-2 COVID-19 PFIZER VACCINE Unknown Completed [facility] Pneumococcal Polysaccharide, PPSV23 (PNEUMOVAX) Unknown Completed [facility] Pneumococcal 13 Conjugate, PCV13 (Prevnar 13) Unknown Completed [facility] Influenza High Dose Unknown Completed [facility] Influenza High Dose Unknown Completed [facility] TD, NOS Unknown Completed [facility] Influenza High Dose Unknown Completed [facility] Influenza High Dose Quad Unknown Completed [facility] SARS-COV-2 COVID-19 PFIZER VACCINE Unknown Completed [facility] SARS-COV-2 COVID-19 PFIZER VACCINE Unknown Completed [facility] SARS-COV-2 COVID-19 PFIZER VACCINE Unknown Completed [facility] TD, NOS Unknown Completed [facility] Pneumococcal Polysaccharide, PPSV23 (PNEUMOVAX) Unknown Completed [facility] Pneumococcal 13 Conjugate, PCV13 (Prevnar 13) Unknown Completed [facility] Influenza High Dose Unknown Completed [facility] Influenza High Dose Unknown Completed [facility] TD, NOS Unknown Completed [facility] Influenza High Dose Unknown Completed [facility] Influenza High Dose Quad Unknown Completed [facility] SARS-COV-2 COVID-19 PFIZER VACCINE Unknown Completed [facility] SARS-COV-2 COVID-19 PFIZER VACCINE Unknown Completed [facility] SARS-COV-2 COVID-19 PFIZER VACCINE Unknown Completed [facility] TD, NOS Unknown Completed [facility] Pneumococcal Polysaccharide, PPSV23 (PNEUMOVAX) Unknown Completed [facility] Pneumococcal 13 Conjugate, PCV13 (Prevnar 13) Unknown Completed [facility] Influenza High Dose Unknown Completed [facility] Influenza High Dose Unknown Completed [facility] TD, NOS Unknown Completed [facility] Influenza High Dose Unknown Completed [facility] Influenza High Dose Quad Unknown Completed [facility] SARS-COV-2 COVID-19 PFIZER VACCINE Unknown Completed [facility] SARS-COV-2 COVID-19 PFIZER VACCINE Unknown Completed [facility] SARS-COV-2 COVID-19 PFIZER VACCINE Unknown Completed [facility] TD, NOS Unknown Completed [facility] Pneumococcal Polysaccharide, PPSV23 (PNEUMOVAX) Unknown Completed [facility] Pneumococcal 13 Conjugate, PCV13 (Prevnar 13) Unknown Completed [facility] Influenza High Dose Unknown Completed [facility] Influenza High Dose Unknown Completed [facility] TD, NOS Unknown Completed [facility] Influenza High Dose Unknown Completed [facility] Influenza High Dose Quad Unknown Completed [facility] SARS-COV-2 COVID-19 PFIZER VACCINE Unknown Completed [facility] SARS-COV-2 COVID-19 PFIZER VACCINE Unknown Completed [facility] SARS-COV-2 COVID-19 PFIZER VACCINE Unknown Completed [facility] TD, NOS Unknown Completed [facility] Pneumococcal Polysaccharide, PPSV23 (PNEUMOVAX) Unknown Completed [facility] Pneumococcal 13 Conjugate, PCV13 (Prevnar 13) Unknown Completed [facility] Influenza High Dose Unknown Completed [facility] Influenza High Dose Unknown Completed [facility] TD, NOS Unknown Completed [facility] Influenza High Dose Unknown Completed [facility] Influenza High Dose Quad Unknown Completed [facility] SARS-COV-2 COVID-19 PFIZER VACCINE Unknown Completed [facility] SARS-COV-2 COVID-19 PFIZER VACCINE Unknown Completed [facility] SARS-COV-2 COVID-19 PFIZER VACCINE Unknown Completed [facility] TD, NOS Unknown Completed [facility] Pneumococcal Polysaccharide, PPSV23 (PNEUMOVAX) Unknown Completed [facility] Pneumococcal 13 Conjugate, PCV13 (Prevnar 13) Unknown Completed [facility] Influenza High Dose Unknown Completed [facility] Influenza High Dose Unknown Completed [facility] TD, NOS Unknown Completed [facility] Influenza High Dose Unknown Completed [facility] Influenza High Dose Quad Unknown Completed [facility] SARS-COV-2 COVID-19 PFIZER VACCINE Unknown Completed [facility] SARS-COV-2 COVID-19 PFIZER VACCINE Unknown Completed [facility] SARS-COV-2 COVID-19 PFIZER VACCINE Unknown Completed [facility] TD, NOS Unknown Completed [facility] Pneumococcal Polysaccharide, PPSV23 (PNEUMOVAX) Unknown Completed [facility] Pneumococcal 13 Conjugate, PCV13 (Prevnar 13) Unknown Completed [facility] Influenza High Dose Unknown Completed [facility] Influenza High Dose Unknown Completed [facility] TD, NOS Unknown Completed [facility] Influenza High Dose Unknown Completed [facility] Influenza High Dose Quad Unknown Completed [facility] SARS-COV-2 COVID-19 PFIZER VACCINE Unknown Completed [facility] SARS-COV-2 COVID-19 PFIZER VACCINE Unknown Completed [facility] SARS-COV-2 COVID-19 PFIZER VACCINE Unknown Completed [facility] TD, NOS Unknown Completed [facility] Pneumococcal Polysaccharide, PPSV23 (PNEUMOVAX) Unknown Completed [facility] Pneumococcal 13 Conjugate, PCV13 (Prevnar 13) Unknown Completed [facility] Influenza High Dose Unknown Completed [facility] Influenza High Dose Unknown Completed [facility] TD, NOS Unknown Completed [facility] Influenza High Dose Unknown Completed [facility] Influenza High Dose Quad Unknown Completed [facility] SARS-COV-2 COVID-19 PFIZER VACCINE Unknown Completed [facility] SARS-COV-2 COVID-19 PFIZER VACCINE Unknown Completed [facility] SARS-COV-2 COVID-19 PFIZER VACCINE Unknown Completed [facility] TD, NOS Unknown Completed [facility] Pneumococcal Polysaccharide, PPSV23 (PNEUMOVAX) Unknown Completed [facility] Pneumococcal 13 Conjugate, PCV13 (Prevnar 13) Unknown Completed [facility] Influenza High Dose Unknown Completed [facility] Influenza High Dose Unknown Completed [facility] TD, NOS Unknown Completed [facility] Influenza High Dose Unknown Completed [facility] Influenza High Dose Quad Unknown Completed [facility] SARS-COV-2 COVID-19 PFIZER VACCINE Unknown Completed [facility] SARS-COV-2 COVID-19 PFIZER VACCINE Unknown Completed [facility] SARS-COV-2 COVID-19 PFIZER VACCINE Unknown Completed [facility] TD, NOS Unknown Completed [facility] Pneumococcal Polysaccharide, PPSV23 (PNEUMOVAX) Unknown Completed [facility] Pneumococcal 13 Conjugate, PCV13 (Prevnar 13) Unknown Completed [facility] Influenza High Dose Unknown Completed [facility] Influenza High Dose Unknown Completed [facility] TD, NOS Unknown Completed [facility] Influenza High Dose Unknown Completed [facility] Influenza High Dose Quad Unknown Completed [facility] SARS-COV-2 COVID-19 PFIZER VACCINE Unknown Completed [facility] SARS-COV-2 COVID-19 PFIZER VACCINE Unknown Completed [facility] SARS-COV-2 COVID-19 PFIZER VACCINE Unknown Completed [facility] TD, NOS Unknown Completed [facility] Pneumococcal Polysaccharide, PPSV23 (PNEUMOVAX) Unknown Completed [facility] Pneumococcal 13 Conjugate, PCV13 (Prevnar 13) Unknown Completed [facility] Influenza High Dose Unknown Completed [facility] Influenza High Dose Unknown Completed [facility] TD, NOS Unknown Completed [facility] Influenza High Dose Unknown Completed [facility] Influenza High Dose Quad Unknown Completed [facility] SARS-COV-2 COVID-19 PFIZER VACCINE Unknown Completed [facility] SARS-COV-2 COVID-19 PFIZER VACCINE Unknown Completed [facility] SARS-COV-2 COVID-19 PFIZER VACCINE Unknown Completed [facility] TD, NOS Unknown Completed [facility] Pneumococcal Polysaccharide, PPSV23 (PNEUMOVAX) Unknown Completed [facility] Pneumococcal 13 Conjugate, PCV13 (Prevnar 13) Unknown Completed [facility] Influenza High Dose Unknown Completed [facility] Influenza High Dose Unknown Completed [facility] TD, NOS Unknown Completed [facility] Influenza High Dose Unknown Completed [facility] Influenza High Dose Quad Unknown Completed [facility] SARS-COV-2 COVID-19 PFIZER VACCINE Unknown Completed [facility] SARS-COV-2 COVID-19 PFIZER VACCINE Unknown Completed [facility] SARS-COV-2 COVID-19 PFIZER VACCINE Unknown Completed [facility] TD, NOS Unknown Completed [facility] Pneumococcal Polysaccharide, PPSV23 (PNEUMOVAX) Unknown Completed [facility] Pneumococcal 13 Conjugate, PCV13 (Prevnar 13) Unknown Completed [facility] Influenza High Dose Unknown Completed [facility] Influenza High Dose Unknown Completed [facility] TD, NOS Unknown Completed [facility] Influenza High Dose Unknown Completed [facility] Influenza High Dose Quad Unknown Completed [facility] SARS-COV-2 COVID-19 PFIZER VACCINE Unknown Completed [facility] SARS-COV-2 COVID-19 PFIZER VACCINE Unknown Completed [facility] SARS-COV-2 COVID-19 PFIZER VACCINE Unknown Completed [facility] TD, NOS Unknown Completed [facility] Pneumococcal Polysaccharide, PPSV23 (PNEUMOVAX) Unknown Completed [facility] Pneumococcal 13 Conjugate, PCV13 (Prevnar 13) Unknown Completed [facility] Influenza High Dose Unknown Completed [facility] Influenza High Dose Unknown Completed [facility] TD, NOS Unknown Completed [facility] Influenza High Dose Unknown Completed [facility] Influenza High Dose Quad Unknown Completed [facility] SARS-COV-2 COVID-19 PFIZER VACCINE Unknown Completed [facility] SARS-COV-2 COVID-19 PFIZER VACCINE Unknown Completed [facility] SARS-COV-2 COVID-19 PFIZER VACCINE Unknown Completed [facility] TD, NOS Unknown Completed [facility] Pneumococcal Polysaccharide, PPSV23 (PNEUMOVAX) Unknown Completed [facility] Pneumococcal 13 Conjugate, PCV13 (Prevnar 13) Unknown Completed [facility] Influenza High Dose Unknown Completed [facility] Influenza High Dose Unknown Completed [facility] TD, NOS Unknown Completed [facility] Influenza High Dose Unknown Completed [facility] Influenza High Dose Quad Unknown Completed [facility] SARS-COV-2 COVID-19 PFIZER VACCINE Unknown Completed [facility] SARS-COV-2 COVID-19 PFIZER VACCINE Unknown Completed [facility] SARS-COV-2 COVID-19 PFIZER VACCINE Unknown Completed [facility] TD, NOS Unknown Completed [facility] Pneumococcal Polysaccharide, PPSV23 (PNEUMOVAX) Unknown Completed [facility] Pneumococcal 13 Conjugate, PCV13 (Prevnar 13) Unknown Completed [facility] Influenza High Dose Unknown Completed [facility] Influenza High Dose Unknown Completed [facility] TD, NOS Unknown Completed [facility] Influenza High Dose Unknown Completed [facility] Influenza High Dose Quad Unknown Completed [facility] SARS-COV-2 COVID-19 PFIZER VACCINE Unknown Completed [facility] SARS-COV-2 COVID-19 PFIZER VACCINE Unknown Completed [facility] SARS-COV-2 COVID-19 PFIZER VACCINE Unknown Completed [facility] TD, NOS Unknown Completed [facility] Pneumococcal Polysaccharide, PPSV23 (PNEUMOVAX) Unknown Completed [facility] Pneumococcal 13 Conjugate, PCV13 (Prevnar 13) Unknown Completed [facility] Influenza High Dose Unknown Completed [facility] Influenza High Dose Unknown Completed [facility] TD, NOS Unknown Completed [facility] Influenza High Dose Unknown Completed [facility] Influenza High Dose Quad Unknown Completed [facility] SARS-COV-2 COVID-19 PFIZER VACCINE Unknown Completed [facility] SARS-COV-2 COVID-19 PFIZER VACCINE Unknown Completed [facility] SARS-COV-2 COVID-19 PFIZER VACCINE Unknown Completed [facility] TD, NOS Unknown Completed [facility] Pneumococcal Polysaccharide, PPSV23 (PNEUMOVAX) Unknown Completed [facility] Pneumococcal 13 Conjugate, PCV13 (Prevnar 13) Unknown Completed [facility] Influenza High Dose Unknown Completed [facility] Influenza High Dose Unknown Completed [facility] TD, NOS Unknown Completed [facility] Influenza High Dose Unknown Completed [facility] Influenza High Dose Quad Unknown Completed [facility] SARS-COV-2 COVID-19 PFIZER VACCINE Unknown Completed [facility] SARS-COV-2 COVID-19 PFIZER VACCINE Unknown Completed [facility] SARS-COV-2 COVID-19 PFIZER VACCINE Unknown Completed [facility] TD, NOS Unknown Completed [facility] Pneumococcal Polysaccharide, PPSV23 (PNEUMOVAX) Unknown Completed [facility] Pneumococcal 13 Conjugate, PCV13 (Prevnar 13) Unknown Completed [facility] Influenza High Dose Unknown Completed [facility] Influenza High Dose Unknown Completed [facility] TD, NOS Unknown Completed [facility] Influenza High Dose Unknown Completed [facility] Influenza High Dose Quad Unknown Completed [facility] SARS-COV-2 COVID-19 PFIZER VACCINE Unknown Completed [facility] SARS-COV-2 COVID-19 PFIZER VACCINE Unknown Completed [facility] SARS-COV-2 COVID-19 PFIZER VACCINE Unknown Completed [facility] TD, NOS Unknown Completed [facility] Pneumococcal Polysaccharide, PPSV23 (PNEUMOVAX) Unknown Completed [facility] Pneumococcal 13 Conjugate, PCV13 (Prevnar 13) Unknown Completed [facility] Influenza High Dose Unknown Completed [facility] Influenza High Dose Unknown Completed [facility] TD, NOS Unknown Completed [facility] Influenza High Dose Unknown Completed [facility] Influenza High Dose Quad Unknown Completed [facility] SARS-COV-2 COVID-19 PFIZER VACCINE Unknown Completed [facility] SARS-COV-2 COVID-19 PFIZER VACCINE Unknown Completed [facility] SARS-COV-2 COVID-19 PFIZER VACCINE Unknown Completed [facility] TD, NOS Unknown Completed [facility] Pneumococcal Polysaccharide, PPSV23 (PNEUMOVAX) Unknown Completed [facility] Pneumococcal 13 Conjugate, PCV13 (Prevnar 13) Unknown Completed [facility] Influenza High Dose Unknown Completed [facility] Influenza High Dose Unknown Completed [facility] TD, NOS Unknown Completed [facility] Influenza High Dose Unknown Completed [facility] Influenza High Dose Quad Unknown Completed [facility] SARS-COV-2 COVID-19 PFIZER VACCINE Unknown Completed [facility] SARS-COV-2 COVID-19 PFIZER VACCINE Unknown Completed [facility] SARS-COV-2 COVID-19 PFIZER VACCINE Unknown Completed [facility] TD, NOS Unknown Completed [facility] Pneumococcal Polysaccharide, PPSV23 (PNEUMOVAX) Unknown Completed [facility] Pneumococcal 13 Conjugate, PCV13 (Prevnar 13) Unknown Completed [facility] Influenza High Dose Unknown Completed [facility] Influenza High Dose Unknown Completed [facility] TD, NOS Unknown Completed [facility] Influenza High Dose Unknown Completed [facility] Influenza High Dose Quad Unknown Completed [facility] SARS-COV-2 COVID-19 PFIZER VACCINE Unknown Completed [facility] SARS-COV-2 COVID-19 PFIZER VACCINE Unknown Completed [facility] SARS-COV-2 COVID-19 PFIZER VACCINE Unknown Completed [facility] TD, NOS Unknown Completed [facility] Pneumococcal Polysaccharide, PPSV23 (PNEUMOVAX) Unknown Completed [facility] Pneumococcal 13 Conjugate, PCV13 (Prevnar 13) Unknown Completed [facility] Influenza High Dose Unknown Completed [facility] Influenza High Dose Unknown Completed [facility] TD, NOS Unknown Completed [facility] Influenza High Dose Unknown Completed [facility] Influenza High Dose Quad Unknown Completed [facility] SARS-COV-2 COVID-19 PFIZER VACCINE Unknown Completed [facility] SARS-COV-2 COVID-19 PFIZER VACCINE Unknown Completed [facility] SARS-COV-2 COVID-19 PFIZER VACCINE Unknown Completed [facility] TD, NOS Unknown Completed [facility] Pneumococcal Polysaccharide, PPSV23 (PNEUMOVAX) Unknown Completed [facility] Pneumococcal 13 Conjugate, PCV13 (Prevnar 13) Unknown Completed [facility] Influenza High Dose Unknown Completed [facility] Influenza High Dose Unknown Completed [facility] TD, NOS Unknown Completed [facility] Influenza High Dose Unknown Completed [facility] Influenza High Dose Quad Unknown Completed [facility] SARS-COV-2 COVID-19 PFIZER VACCINE Unknown Completed [facility] SARS-COV-2 COVID-19 PFIZER VACCINE Unknown Completed [facility] SARS-COV-2 COVID-19 PFIZER VACCINE Unknown Completed [facility] TD, NOS Unknown Completed [facility] Pneumococcal Polysaccharide, PPSV23 (PNEUMOVAX) Unknown Completed [facility] Pneumococcal 13 Conjugate, PCV13 (Prevnar 13) Unknown Completed [facility] Influenza High Dose Unknown Completed [facility] Influenza High Dose Unknown Completed [facility] TD, NOS Unknown Completed [facility] Influenza High Dose Unknown Completed [facility] Influenza High Dose Quad Unknown Completed [facility] SARS-COV-2 COVID-19 PFIZER VACCINE Unknown Completed [facility] SARS-COV-2 COVID-19 PFIZER VACCINE Unknown Completed [facility] SARS-COV-2 COVID-19 PFIZER VACCINE Unknown Completed [facility] TD, NOS Unknown Completed [facility] Pneumococcal Polysaccharide, PPSV23 (PNEUMOVAX) Unknown Completed [facility] Pneumococcal 13 Conjugate, PCV13 (Prevnar 13) Unknown Completed [facility] Influenza High Dose Unknown Completed [facility] Influenza High Dose Unknown Completed [facility] TD, NOS Unknown Completed [facility] Influenza High Dose Unknown Completed [facility] Influenza High Dose Quad Unknown Completed [facility] SARS-COV-2 COVID-19 PFIZER VACCINE Unknown Completed [facility] SARS-COV-2 COVID-19 PFIZER VACCINE Unknown Completed [facility] SARS-COV-2 COVID-19 PFIZER VACCINE Unknown Completed [facility] TD, NOS Unknown Completed [facility] Pneumococcal Polysaccharide, PPSV23 (PNEUMOVAX) Unknown Completed [facility] Pneumococcal 13 Conjugate, PCV13 (Prevnar 13) Unknown Completed [facility] Influenza High Dose Unknown Completed [facility] Influenza High Dose Unknown Completed [facility] TD, NOS Unknown Completed [facility] Influenza High Dose Unknown Completed [facility] Influenza High Dose Quad Unknown Completed [facility] SARS-COV-2 COVID-19 PFIZER VACCINE Unknown Completed [facility] SARS-COV-2 COVID-19 PFIZER VACCINE Unknown Completed [facility] SARS-COV-2 COVID-19 PFIZER VACCINE Unknown Completed [facility] TD, NOS Unknown Completed [facility] Pneumococcal Polysaccharide, PPSV23 (PNEUMOVAX) Unknown Completed [facility] Pneumococcal 13 Conjugate, PCV13 (Prevnar 13) Unknown Completed [facility] Influenza High Dose Unknown Completed [facility] Influenza High Dose Unknown Completed [facility] TD, NOS Unknown Completed [facility] Influenza High Dose Unknown Completed [facility] Influenza High Dose Quad Unknown Completed [facility] SARS-COV-2 COVID-19 PFIZER VACCINE Unknown Completed [facility] SARS-COV-2 COVID-19 PFIZER VACCINE Unknown Completed [facility] SARS-COV-2 COVID-19 PFIZER VACCINE Unknown Completed [facility] TD, NOS Unknown Completed [facility] Pneumococcal Polysaccharide, PPSV23 (PNEUMOVAX) Unknown Completed [facility] Pneumococcal 13 Conjugate, PCV13 (Prevnar 13) Unknown Completed [facility] Influenza High Dose Unknown Completed [facility] Influenza High Dose Unknown Completed [facility] TD, NOS Unknown Completed [facility] Influenza High Dose Unknown Completed [facility] Influenza High Dose Quad Unknown Completed [facility] SARS-COV-2 COVID-19 PFIZER VACCINE Unknown Completed [facility] SARS-COV-2 COVID-19 PFIZER VACCINE Unknown Completed [facility] SARS-COV-2 COVID-19 PFIZER VACCINE Unknown Completed [facility] TD, NOS Unknown Completed [facility] Pneumococcal Polysaccharide, PPSV23 (PNEUMOVAX) Unknown Completed [facility] Pneumococcal 13 Conjugate, PCV13 (Prevnar 13) Unknown Completed [facility] Influenza High Dose Unknown Completed [facility] Influenza High Dose Unknown Completed [facility] TD, NOS Unknown Completed [facility] Influenza High Dose Unknown Completed [facility] Influenza High Dose Quad Unknown Completed [facility] SARS-COV-2 COVID-19 PFIZER VACCINE Unknown Completed [facility] SARS-COV-2 COVID-19 PFIZER VACCINE Unknown Completed [facility] SARS-COV-2 COVID-19 PFIZER VACCINE Unknown Completed [facility] TD, NOS Unknown Completed [facility] Pneumococcal Polysaccharide, PPSV23 (PNEUMOVAX) Unknown Completed [facility] Pneumococcal 13 Conjugate, PCV13 (Prevnar 13) Unknown Completed [facility] Influenza High Dose Unknown Completed [facility] Influenza High Dose Unknown Completed [facility] TD, NOS Unknown Completed [facility] Influenza High Dose Unknown Completed [facility] Influenza High Dose Quad Unknown Completed [facility] SARS-COV-2 COVID-19 PFIZER VACCINE Unknown Completed [facility] SARS-COV-2 COVID-19 PFIZER VACCINE Unknown Completed [facility] SARS-COV-2 COVID-19 PFIZER VACCINE Unknown Completed [facility] TD, NOS Unknown Completed [facility] Pneumococcal Polysaccharide, PPSV23 (PNEUMOVAX) Unknown Completed [facility] Pneumococcal 13 Conjugate, PCV13 (Prevnar 13) Unknown Completed [facility] Influenza High Dose Unknown Completed [facility] Influenza High Dose Unknown Completed [facility] TD, NOS Unknown Completed [facility] Influenza High Dose Unknown Completed [facility] Influenza High Dose Quad Unknown Completed [facility] SARS-COV-2 COVID-19 PFIZER VACCINE Unknown Completed [facility] SARS-COV-2 COVID-19 PFIZER VACCINE Unknown Completed [facility] SARS-COV-2 COVID-19 PFIZER VACCINE Unknown Completed [facility] TD, NOS Unknown Completed [facility] Pneumococcal Polysaccharide, PPSV23 (PNEUMOVAX) Unknown Completed [facility] Pneumococcal 13 Conjugate, PCV13 (Prevnar 13) Unknown Completed [facility] Influenza High Dose Unknown Completed [facility] Influenza High Dose Unknown Completed [facility] TD, NOS Unknown Completed [facility] Influenza High Dose Unknown Completed [facility] Influenza High Dose Quad Unknown Completed [facility] SARS-COV-2 COVID-19 PFIZER VACCINE Unknown Completed [facility] SARS-COV-2 COVID-19 PFIZER VACCINE Unknown Completed [facility] SARS-COV-2 COVID-19 PFIZER VACCINE Unknown Completed [facility] TD, NOS Unknown Completed [facility] Pneumococcal Polysaccharide, PPSV23 (PNEUMOVAX) Unknown Completed [facility] Pneumococcal 13 Conjugate, PCV13 (Prevnar 13) Unknown Completed [facility] Influenza High Dose Unknown Completed [facility] Influenza High Dose Unknown Completed [facility] TD, NOS Unknown Completed [facility] Influenza High Dose Unknown Completed [facility] Influenza High Dose Quad Unknown Completed [facility] SARS-COV-2 COVID-19 PFIZER VACCINE Unknown Completed [facility] SARS-COV-2 COVID-19 PFIZER VACCINE Unknown Completed [facility] SARS-COV-2 COVID-19 PFIZER VACCINE Unknown Completed [facility] TD, NOS Unknown Completed [facility] Pneumococcal Polysaccharide, PPSV23 (PNEUMOVAX) Unknown Completed [facility] Pneumococcal 13 Conjugate, PCV13 (Prevnar 13) Unknown Completed [facility] Influenza High Dose Unknown Completed [facility] Influenza High Dose Unknown Completed [facility] TD, NOS Unknown Completed [facility] Influenza High Dose Unknown Completed [facility] Influenza High Dose Quad Unknown Completed [facility] SARS-COV-2 COVID-19 PFIZER VACCINE Unknown Completed [facility] SARS-COV-2 COVID-19 PFIZER VACCINE Unknown Completed [facility] SARS-COV-2 COVID-19 PFIZER VACCINE Unknown Completed [facility] TD, NOS Unknown Completed [facility] Pneumococcal Polysaccharide, PPSV23 (PNEUMOVAX) Unknown Completed [facility] Pneumococcal 13 Conjugate, PCV13 (Prevnar 13) Unknown Completed [facility] Influenza High Dose Unknown Completed [facility] Influenza High Dose Unknown Completed [facility] TD, NOS Unknown Completed [facility] Influenza High Dose Unknown Completed [facility] Influenza High Dose Quad Unknown Completed [facility] SARS-COV-2 COVID-19 PFIZER VACCINE Unknown Completed [facility] SARS-COV-2 COVID-19 PFIZER VACCINE Unknown Completed [facility] SARS-COV-2 COVID-19 PFIZER VACCINE Unknown Completed [facility] TD, NOS Unknown Completed [facility] Pneumococcal Polysaccharide, PPSV23 (PNEUMOVAX) Unknown Completed [facility] Pneumococcal 13 Conjugate, PCV13 (Prevnar 13) Unknown Completed [facility] Influenza High Dose Unknown Completed [facility] Influenza High Dose Unknown Completed [facility] TD, NOS Unknown Completed [facility] Influenza High Dose Unknown Completed [facility] Influenza High Dose Quad Unknown Completed [facility] SARS-COV-2 COVID-19 PFIZER VACCINE Unknown Completed [facility] SARS-COV-2 COVID-19 PFIZER VACCINE Unknown Completed [facility] SARS-COV-2 COVID-19 PFIZER VACCINE Unknown Completed [facility] TD, NOS Unknown Completed [facility] Pneumococcal Polysaccharide, PPSV23 (PNEUMOVAX) Unknown Completed [facility] Pneumococcal 13 Conjugate, PCV13 (Prevnar 13) Unknown Completed [facility] Influenza High Dose Unknown Completed [facility] Influenza High Dose Unknown Completed [facility] TD, NOS Unknown Completed [facility] Influenza High Dose Unknown Completed [facility] Influenza High Dose Quad Unknown Completed [facility] SARS-COV-2 COVID-19 PFIZER VACCINE Unknown Completed [facility] SARS-COV-2 COVID-19 PFIZER VACCINE Unknown Completed [facility] SARS-COV-2 COVID-19 PFIZER VACCINE Unknown Completed [facility] TD, NOS Unknown Completed [facility] Pneumococcal Polysaccharide, PPSV23 (PNEUMOVAX) Unknown Completed [facility] Pneumococcal 13 Conjugate, PCV13 (Prevnar 13) Unknown Completed [facility] Influenza High Dose Unknown Completed [facility] Influenza High Dose Unknown Completed [facility] TD, NOS Unknown Completed [facility] Influenza High Dose Unknown Completed [facility] Influenza High Dose Quad Unknown Completed [facility] SARS-COV-2 COVID-19 PFIZER VACCINE Unknown Completed [facility] SARS-COV-2 COVID-19 PFIZER VACCINE Unknown Completed [facility] SARS-COV-2 COVID-19 PFIZER VACCINE Unknown Completed [facility] TD, NOS Unknown Completed [facility] Pneumococcal Polysaccharide, PPSV23 (PNEUMOVAX) Unknown Completed [facility] Pneumococcal 13 Conjugate, PCV13 (Prevnar 13) Unknown Completed [facility] Influenza High Dose Unknown Completed [facility] Influenza High Dose Unknown Completed [facility] TD, NOS Unknown Completed [facility] Influenza High Dose Unknown Completed [facility] Influenza High Dose Quad Unknown Completed [facility] SARS-COV-2 COVID-19 PFIZER VACCINE Unknown Completed [facility] SARS-COV-2 COVID-19 PFIZER VACCINE Unknown Completed [facility] SARS-COV-2 COVID-19 PFIZER VACCINE Unknown Completed [facility] TD, NOS Unknown Completed [facility] Pneumococcal Polysaccharide, PPSV23 (PNEUMOVAX) Unknown Completed [facility] Pneumococcal 13 Conjugate, PCV13 (Prevnar 13) Unknown Completed [facility] Influenza High Dose Unknown Completed [facility] Influenza High Dose Unknown Completed [facility] TD, NOS Unknown Completed [facility] Influenza High Dose Unknown Completed [facility] Influenza High Dose Quad Unknown Completed [facility] SARS-COV-2 COVID-19 PFIZER VACCINE Unknown Completed [facility] SARS-COV-2 COVID-19 PFIZER VACCINE Unknown Completed [facility] SARS-COV-2 COVID-19 PFIZER VACCINE Unknown Completed [facility] TD, NOS Unknown Completed [facility] Pneumococcal Polysaccharide, PPSV23 (PNEUMOVAX) Unknown Completed [facility] Pneumococcal 13 Conjugate, PCV13 (Prevnar 13) Unknown Completed [facility] Influenza High Dose Unknown Completed [facility] Influenza High Dose Unknown Completed [facility] TD, NOS Unknown Completed [facility] Influenza High Dose Unknown Completed [facility] Influenza High Dose Quad Unknown Completed [facility] SARS-COV-2 COVID-19 PFIZER VACCINE Unknown Completed [facility] SARS-COV-2 COVID-19 PFIZER VACCINE Unknown Completed [facility] SARS-COV-2 COVID-19 PFIZER VACCINE Unknown Completed [facility] TD, NOS Unknown Completed [facility] Pneumococcal Polysaccharide, PPSV23 (PNEUMOVAX) Unknown Completed [facility] Pneumococcal 13 Conjugate, PCV13 (Prevnar 13) Unknown Completed [facility] Influenza High Dose Unknown Completed [facility] Influenza High Dose Unknown Completed [facility] TD, NOS Unknown Completed [facility] Influenza High Dose Unknown Completed [facility] Influenza High Dose Quad Unknown Completed [facility] SARS-COV-2 COVID-19 PFIZER VACCINE Unknown Completed [facility] SARS-COV-2 COVID-19 PFIZER VACCINE Unknown Completed [facility] SARS-COV-2 COVID-19 PFIZER VACCINE Unknown Completed [facility] TD, NOS Unknown Completed [facility] Pneumococcal Polysaccharide, PPSV23 (PNEUMOVAX) Unknown Completed [facility] Pneumococcal 13 Conjugate, PCV13 (Prevnar 13) Unknown Completed [facility] Influenza High Dose Unknown Completed [facility] Influenza High Dose Unknown Completed [facility] TD, NOS Unknown Completed [facility] Influenza High Dose Unknown Completed [facility] Influenza High Dose Quad Unknown Completed [facility] SARS-COV-2 COVID-19 PFIZER VACCINE Unknown Completed [facility] SARS-COV-2 COVID-19 PFIZER VACCINE Unknown Completed [facility] SARS-COV-2 COVID-19 PFIZER VACCINE Unknown Completed [facility] TD, NOS Unknown Completed [facility] Pneumococcal Polysaccharide, PPSV23 (PNEUMOVAX) Unknown Completed [facility] Pneumococcal 13 Conjugate, PCV13 (Prevnar 13) Unknown Completed [facility] Influenza High Dose Unknown Completed [facility] Influenza High Dose Unknown Completed [facility] TD, NOS Unknown Completed [facility] Influenza High Dose Unknown Completed [facility] Influenza High Dose Quad Unknown Completed [facility] SARS-COV-2 COVID-19 PFIZER VACCINE Unknown Completed [facility] SARS-COV-2 COVID-19 PFIZER VACCINE Unknown Completed [facility] SARS-COV-2 COVID-19 PFIZER VACCINE Unknown Completed [facility] TD, NOS Unknown Completed [facility] Pneumococcal Polysaccharide, PPSV23 (PNEUMOVAX) Unknown Completed [facility] Pneumococcal 13 Conjugate, PCV13 (Prevnar 13) Unknown Completed [facility] Influenza High Dose Unknown Completed [facility] Influenza High Dose Unknown Completed [facility] TD, NOS Unknown Completed [facility] Influenza High Dose Unknown Completed [facility] Influenza High Dose Quad Unknown Completed [facility] SARS-COV-2 COVID-19 PFIZER VACCINE Unknown Completed [facility] SARS-COV-2 COVID-19 PFIZER VACCINE Unknown Completed [facility] SARS-COV-2 COVID-19 PFIZER VACCINE Unknown Completed [facility] TD, NOS Unknown Completed [facility] Pneumococcal Polysaccharide, PPSV23 (PNEUMOVAX) Unknown Completed [facility] Pneumococcal 13 Conjugate, PCV13 (Prevnar 13) Unknown Completed [facility] Influenza High Dose Unknown Completed [facility] Influenza High Dose Unknown Completed [facility] TD, NOS Unknown Completed [facility] Influenza High Dose Unknown Completed [facility] Influenza High Dose Quad Unknown Completed [facility] SARS-COV-2 COVID-19 PFIZER VACCINE Unknown Completed [facility] SARS-COV-2 COVID-19 PFIZER VACCINE Unknown Completed [facility] SARS-COV-2 COVID-19 PFIZER VACCINE Unknown Completed [facility] TD, NOS Unknown Completed [facility] Pneumococcal Polysaccharide, PPSV23 (PNEUMOVAX) Unknown Completed [facility] Pneumococcal 13 Conjugate, PCV13 (Prevnar 13) Unknown Completed [facility] Influenza High Dose Unknown Completed [facility] Influenza High Dose Unknown Completed [facility] TD, NOS Unknown Completed [facility] Influenza High Dose Unknown Completed [facility] Influenza High Dose Quad Unknown Completed [facility] SARS-COV-2 COVID-19 PFIZER VACCINE Unknown Completed [facility] SARS-COV-2 COVID-19 PFIZER VACCINE Unknown Completed [facility] SARS-COV-2 COVID-19 PFIZER VACCINE Unknown Completed [facility] TD, NOS Unknown Completed [facility] Pneumococcal Polysaccharide, PPSV23 (PNEUMOVAX) Unknown Completed [facility] Pneumococcal 13 Conjugate, PCV13 (Prevnar 13) Unknown Completed [facility] Influenza High Dose Unknown Completed [facility] Influenza High Dose Unknown Completed [facility] TD, NOS Unknown Completed [facility] Influenza High Dose Unknown Completed [facility] Influenza High Dose Quad Unknown Completed [facility] SARS-COV-2 COVID-19 PFIZER VACCINE Unknown Completed [facility] SARS-COV-2 COVID-19 PFIZER VACCINE Unknown Completed [facility] SARS-COV-2 COVID-19 PFIZER VACCINE Unknown Completed [facility] TD, NOS Unknown Completed [facility] Pneumococcal Polysaccharide, PPSV23 (PNEUMOVAX) Unknown Completed [facility] Pneumococcal 13 Conjugate, PCV13 (Prevnar 13) Unknown Completed [facility] Influenza High Dose Unknown Completed [facility] Influenza High Dose Unknown Completed [facility] TD, NOS Unknown Completed [facility] Influenza High Dose Unknown Completed [facility] Influenza High Dose Quad Unknown Completed [facility] SARS-COV-2 COVID-19 PFIZER VACCINE Unknown Completed [facility] SARS-COV-2 COVID-19 PFIZER VACCINE Unknown Completed [facility] SARS-COV-2 COVID-19 PFIZER VACCINE Unknown Completed [facility] TD, NOS Unknown Completed [facility] Pneumococcal Polysaccharide, PPSV23 (PNEUMOVAX) Unknown Completed [facility] Pneumococcal 13 Conjugate, PCV13 (Prevnar 13) Unknown Completed [facility] Influenza High Dose Unknown Completed [facility] Influenza High Dose Unknown Completed [facility] TD, NOS Unknown Completed [facility] Influenza High Dose Unknown Completed [facility] Influenza High Dose Quad Unknown Completed [facility] SARS-COV-2 COVID-19 PFIZER VACCINE Unknown Completed [facility] SARS-COV-2 COVID-19 PFIZER VACCINE Unknown Completed [facility] SARS-COV-2 COVID-19 PFIZER VACCINE Unknown Completed [facility] TD, NOS Unknown Completed [facility] Pneumococcal Polysaccharide, PPSV23 (PNEUMOVAX) Unknown Completed [facility] Pneumococcal 13 Conjugate, PCV13 (Prevnar 13) Unknown Completed [facility] Influenza High Dose Unknown Completed [facility] Influenza High Dose Unknown Completed [facility] TD, NOS Unknown Completed [facility] Influenza High Dose Unknown Completed [facility] Influenza High Dose Quad Unknown Completed [facility] SARS-COV-2 COVID-19 PFIZER VACCINE Unknown Completed [facility] SARS-COV-2 COVID-19 PFIZER VACCINE Unknown Completed [facility] SARS-COV-2 COVID-19 PFIZER VACCINE Unknown Completed [facility] TD, NOS Unknown Completed [facility] Pneumococcal Polysaccharide, PPSV23 (PNEUMOVAX) Unknown Completed [facility] Pneumococcal 13 Conjugate, PCV13 (Prevnar 13) Unknown Completed [facility] Influenza High Dose Unknown Completed [facility] Influenza High Dose Unknown Completed [facility] TD, NOS Unknown Completed [facility] Influenza High Dose Unknown Completed [facility] Influenza High Dose Quad Unknown Completed [facility] SARS-COV-2 COVID-19 PFIZER VACCINE Unknown Completed [facility] SARS-COV-2 COVID-19 PFIZER VACCINE Unknown Completed [facility] SARS-COV-2 COVID-19 PFIZER VACCINE Unknown Completed [facility] TD, NOS Unknown Completed [facility] Pneumococcal Polysaccharide, PPSV23 (PNEUMOVAX) Unknown Completed [facility] Pneumococcal 13 Conjugate, PCV13 (Prevnar 13) Unknown Completed [facility] Influenza High Dose Unknown Completed [facility] Influenza High Dose Unknown Completed [facility] TD, NOS Unknown Completed [facility] Influenza High Dose Unknown Completed [facility] Influenza High Dose Quad Unknown Completed [facility] SARS-COV-2 COVID-19 PFIZER VACCINE Unknown Completed [facility] SARS-COV-2 COVID-19 PFIZER VACCINE Unknown Completed [facility] SARS-COV-2 COVID-19 PFIZER VACCINE Unknown Completed [facility] TD, NOS Unknown Completed [facility] Pneumococcal Polysaccharide, PPSV23 (PNEUMOVAX) Unknown Completed [facility] Pneumococcal 13 Conjugate, PCV13 (Prevnar 13) Unknown Completed [facility] Influenza High Dose Unknown Completed [facility] Influenza High Dose Unknown Completed [facility] TD, NOS Unknown Completed [facility] Influenza High Dose Unknown Completed [facility] Influenza High Dose Quad Unknown Completed [facility] SARS-COV-2 COVID-19 PFIZER VACCINE Unknown Completed [facility] SARS-COV-2 COVID-19 PFIZER VACCINE Unknown Completed [facility] SARS-COV-2 COVID-19 PFIZER VACCINE Unknown Completed [facility] TD, NOS Unknown Completed [facility] Pneumococcal Polysaccharide, PPSV23 (PNEUMOVAX) Unknown Completed [facility] Pneumococcal 13 Conjugate, PCV13 (Prevnar 13) Unknown Completed [facility] Influenza High Dose Unknown Completed [facility] Influenza High Dose Unknown Completed [facility] TD, NOS Unknown Completed [facility] Influenza High Dose Unknown Completed [facility] Influenza High Dose Quad Unknown Completed [facility] SARS-COV-2 COVID-19 PFIZER VACCINE Unknown Completed [facility] SARS-COV-2 COVID-19 PFIZER VACCINE Unknown Completed [facility] SARS-COV-2 COVID-19 PFIZER VACCINE Unknown Completed [facility] TD, NOS Unknown Completed [facility] Pneumococcal Polysaccharide, PPSV23 (PNEUMOVAX) Unknown Completed [facility] Pneumococcal 13 Conjugate, PCV13 (Prevnar 13) Unknown Completed [facility] Influenza High Dose Unknown Completed [facility] Influenza High Dose Unknown Completed [facility] TD, NOS Unknown Completed [facility] Influenza High Dose Unknown Completed [facility] Influenza High Dose Quad Unknown Completed [facility] SARS-COV-2 COVID-19 PFIZER VACCINE Unknown Completed [facility] SARS-COV-2 COVID-19 PFIZER VACCINE Unknown Completed [facility] SARS-COV-2 COVID-19 PFIZER VACCINE Unknown Completed [facility] TD, NOS Unknown Completed [facility] Pneumococcal Polysaccharide, PPSV23 (PNEUMOVAX) Unknown Completed [facility] Pneumococcal 13 Conjugate, PCV13 (Prevnar 13) Unknown Completed [facility] Influenza High Dose Unknown Completed [facility] Influenza High Dose Unknown Completed [facility] TD, NOS Unknown Completed [facility] Influenza High Dose Unknown Completed [facility] Influenza High Dose Quad Unknown Completed [facility] SARS-COV-2 COVID-19 PFIZER VACCINE Unknown Completed [facility] SARS-COV-2 COVID-19 PFIZER VACCINE Unknown Completed [facility] SARS-COV-2 COVID-19 PFIZER VACCINE Unknown Completed [facility] TD, NOS Unknown [facility] [facility] Pneumococcal Polysaccharide, PPSV23 (PNEUMOVAX) Unknown Completed [facility] Pneumococcal 13 Conjugate, PCV13 (Prevnar 13) Unknown Completed [facility] Influenza High Dose Unknown Completed [facility] Influenza High Dose Unknown Completed [facility] TD, NOS Unknown Completed [facility] Influenza High Dose Unknown Completed [facility] Influenza High Dose Quad Unknown Completed [facility] SARS-COV-2 COVID-19 PFIZER VACCINE Unknown Completed [facility] SARS-COV-2 COVID-19 PFIZER VACCINE Unknown Completed [facility] SARS-COV-2 COVID-19 PFIZER VACCINE Unknown Completed [facility] TD, NOS Unknown Completed [facility] Pneumococcal Polysaccharide, PPSV23 (PNEUMOVAX) Unknown Completed [facility] Pneumococcal 13 Conjugate, PCV13 (Prevnar 13) Unknown Completed [facility] Influenza High Dose Unknown Completed [facility] Influenza High Dose Unknown Completed [facility] TD, NOS Unknown Completed [facility] Influenza High Dose Unknown Completed [facility] Influenza High Dose Quad Unknown Completed [facility] SARS-COV-2 COVID-19 PFIZER VACCINE Unknown Completed [facility] SARS-COV-2 COVID-19 PFIZER VACCINE Unknown Completed [facility] SARS-COV-2 COVID-19 PFIZER VACCINE Unknown Completed [facility] TD, NOS Unknown Completed [facility] Pneumococcal Polysaccharide, PPSV23 (PNEUMOVAX) Unknown Completed [facility] Pneumococcal 13 Conjugate, PCV13 (Prevnar 13) Unknown Completed [facility] Influenza High Dose Unknown Completed [facility] Influenza High Dose Unknown Completed [facility] TD, NOS Unknown Completed [facility] Influenza High Dose Unknown Completed [facility] Influenza High Dose Quad Unknown Completed [facility] SARS-COV-2 COVID-19 PFIZER VACCINE Unknown Completed [facility] SARS-COV-2 COVID-19 PFIZER VACCINE Unknown Completed [facility] SARS-COV-2 COVID-19 PFIZER VACCINE Unknown Completed [facility] TD, NOS Unknown Completed [facility] Pneumococcal Polysaccharide, PPSV23 (PNEUMOVAX) Unknown Completed [facility] Pneumococcal 13 Conjugate, PCV13 (Prevnar 13) Unknown Completed [facility] Influenza High Dose Unknown Completed [facility] Influenza High Dose Unknown Completed [facility] TD, NOS Unknown Completed [facility] Influenza High Dose Unknown Completed [facility] Influenza High Dose Quad Unknown Completed [facility] SARS-COV-2 COVID-19 PFIZER VACCINE Unknown Completed [facility] SARS-COV-2 COVID-19 PFIZER VACCINE Unknown Completed [facility] SARS-COV-2 COVID-19 PFIZER VACCINE Unknown Completed [facility] TD, NOS Unknown Completed [facility] Pneumococcal Polysaccharide, PPSV23 (PNEUMOVAX) Unknown Completed [facility] Pneumococcal 13 Conjugate, PCV13 (Prevnar 13) Unknown Completed [facility] Influenza High Dose Unknown Completed [facility] Influenza High Dose Unknown Completed [facility] TD, NOS Unknown Completed [facility] Influenza High Dose Unknown Completed [facility] Influenza High Dose Quad Unknown Completed [facility] SARS-COV-2 COVID-19 PFIZER VACCINE Unknown Completed [facility] SARS-COV-2 COVID-19 PFIZER VACCINE Unknown Completed [facility] SARS-COV-2 COVID-19 PFIZER VACCINE Unknown Completed [facility] TD, NOS Unknown Completed [facility] Pneumococcal Polysaccharide, PPSV23 (PNEUMOVAX) Unknown Completed [facility] Pneumococcal 13 Conjugate, PCV13 (Prevnar 13) Unknown Completed [facility] Influenza High Dose Unknown Completed [facility] Influenza High Dose Unknown Completed [facility] TD, NOS Unknown Completed [facility] Influenza High Dose Unknown Completed [facility] Influenza High Dose Quad Unknown Completed [facility] SARS-COV-2 COVID-19 PFIZER VACCINE Unknown Completed [facility] SARS-COV-2 COVID-19 PFIZER VACCINE Unknown Completed [facility] SARS-COV-2 COVID-19 PFIZER VACCINE Unknown Completed [facility] TD, NOS Unknown Completed [facility] Pneumococcal Polysaccharide, PPSV23 (PNEUMOVAX) Unknown Completed [facility] Pneumococcal 13 Conjugate, PCV13 (Prevnar 13) Unknown Completed [facility] Influenza High Dose Unknown Completed [facility] Influenza High Dose Unknown Completed [facility] TD, NOS Unknown Completed [facility] Influenza High Dose Unknown Completed [facility] Influenza High Dose Quad Unknown Completed [facility] SARS-COV-2 COVID-19 PFIZER VACCINE Unknown Completed [facility] SARS-COV-2 COVID-19 PFIZER VACCINE Unknown Completed [facility] SARS-COV-2 COVID-19 PFIZER VACCINE Unknown Completed [facility] TD, NOS Unknown Completed [facility] Remdesivir Unknown Completed [facility] Remdesivir Unknown Completed [facility] Remdesivir Unknown Completed [facility] Remdesivir Unknown Completed [facility] Remdesivir Unknown Completed [facility] Pneumococcal Polysaccharide, PPSV23 (PNEUMOVAX) Unknown Completed [facility] Pneumococcal 13 Conjugate, PCV13 (Prevnar 13) Unknown Completed [facility] Influenza High Dose Unknown Completed [facility] Influenza High Dose Unknown Completed [facility] TD, NOS Unknown Completed [facility] Influenza High Dose Unknown Completed [facility] Influenza High Dose Quad Unknown Completed [facility] SARS-COV-2 COVID-19 PFIZER VACCINE Unknown Completed [facility] SARS-COV-2 COVID-19 PFIZER VACCINE Unknown Completed [facility] SARS-COV-2 COVID-19 PFIZER VACCINE Unknown Completed [facility] TD, NOS Unknown Completed [facility] Remdesivir Unknown Completed [facility] Remdesivir Unknown Completed [facility] Remdesivir Unknown Completed [facility] Remdesivir Unknown Completed [facility] Remdesivir Unknown Completed [facility] Vital Signs Vital Name Observation Time Observation Value Comments S ource Systolic blood pressure 2023-09-16 14:00:00 148 mm[Hg] [facility] Diastolic blood pressure 2023-09-16 14:00:00 72 mm[Hg] [facility] Heart rate 2023-09-16 14:00:00 77 /min [facility] Body temperature 2023-09-16 14:00:00 36.39 [facility] Respiratory rate 2023-09-16 14:00:00 15 /min [facility] Oxygen saturation in Arterial blood by Pulse oximetry 2023-09-16 14:00:00 90 /min [facility] Body height 2023-08-29 11:52:00 149.9 cm [facility] Body weight 2023-08-29 11:52:00 55.5 kg [facility] BMI 2023-08-29 11:52:00 24.71 kg/m2 [facility] Systolic blood pressure 2023-08-22 17:28:00 130 mm[Hg] [facility] Diastolic blood pressure 2023-08-22 17:28:00 88 mm[Hg] [facility] Heart rate 2023-08-22 17:28:00 113 /min [facility] Body temperature 2023-08-22 17:28:00 36.56 [facility] Respiratory rate 2023-08-22 17:28:00 18 /min [facility] Body height 2023-08-22 17:28:00 149.9 cm [facility] Body weight 2023-08-22 17:28:00 52.3 kg [facility] BMI 2023-08-22 17:28:00 23.29 kg/m2 [facility] Oxygen saturation in Arterial blood by Pulse oximetry 2023-08-22 17:28:00 96 /min [facility] Heart rate 2023-08-14 19:06:00 64 /min [facility] Respiratory rate 2023-08-14 19:06:00 18 /min [facility] Oxygen saturation in Arterial blood by Pulse oximetry 2023-08-14 19:06:00 94 /min [facility] Systolic blood pressure 2023-08-14 17:30:00 137 mm[Hg] [facility] Diastolic blood pressure 2023-08-14 17:30:00 64 mm[Hg] [facility] Body temperature 2023-08-14 17:30:00 36.22 [facility] Body weight 2023-08-14 09:20:00 54.976 kg [facility] BMI 2023-08-14 09:20:00 24.48 kg/m2 [facility] Body height 2023-08-12 18:43:00 149.9 cm [facility] Systolic blood pressure 2023-08-11 15:19:00 161 mm[Hg] [facility] Diastolic blood pressure 2023-08-11 15:19:00 60 mm[Hg] [facility] Heart rate 2023-08-11 15:19:00 46 /min [facility] Body height 2023-08-11 15:19:00 149.9 cm [facility] Body weight 2023-08-11 15:19:00 50.984 kg [facility] BMI 2023-08-11 15:19:00 22.70 kg/m2 [facility] Oxygen saturation in Arterial blood by Pulse oximetry 2023-08-11 15:19:00 95 /min [facility] Systolic blood pressure 2023-06-22 16:38:00 122 mm[Hg] [facility] Diastolic blood pressure 2023-06-22 16:38:00 70 mm[Hg] [facility] Heart rate 2023-06-22 16:38:00 60 /min [facility] Body temperature 2023-06-22 16:38:00 36.33 [facility] Respiratory rate 2023-06-22 16:38:00 16 /min [facility] Body height 2023-06-22 16:38:00 149.9 cm [facility] Body weight 2023-06-22 16:38:00 50.349 kg [facility] BMI 2023-06-22 16:38:00 22.42 kg/m2 [facility] Oxygen saturation in Arterial blood by Pulse oximetry 2023-06-22 16:38:00 97 /min [facility] Systolic blood pressure 2023-06-21 21:50:00 133 mm[Hg] [facility] Diastolic blood pressure 2023-06-21 21:50:00 68 mm[Hg] [facility] Heart rate 2023-06-21 21:50:00 78 /min [facility] Oxygen saturation in Arterial blood by Pulse oximetry 2023-06-21 21:50:00 98 /min [facility] Body temperature 2023-06-21 21:47:00 36.78 [facility] Respiratory rate 2023-06-21 21:47:00 18 /min [facility] Body height 2023-06-21 21:47:00 149.9 cm [facility] Body weight 2023-06-21 21:47:00 50.395 kg [facility] BMI 2023-06-21 21:47:00 22.44 kg/m2 [facility] Systolic blood pressure 2023-06-03 17:09:00 137 mm[Hg] [facility] Diastolic blood pressure 2023-06-03 17:09:00 69 mm[Hg] [facility] Heart rate 2023-06-03 17:09:00 79 /min [facility] Body temperature 2023-06-03 17:09:00 36.78 [facility] Oxygen saturation in Arterial blood by Pulse oximetry 2023-06-03 17:09:00 94 /min [facility] Respiratory rate 2023-06-03 12:14:00 12 /min [facility] Body weight 2023-06-03 09:00:00 59.5 kg [facility] BMI 2023-06-03 09:00:00 26.49 kg/m2 [facility] Body height 2023-05-24 07:34:00 149.9 cm [facility] Respiratory rate 2023-06-01 20:15:00 18 /min [facility] Systolic blood pressure 2023-06-01 20:00:00 127 mm[Hg] [facility] Diastolic blood pressure 2023-06-01 20:00:00 61 mm[Hg] [facility] Heart rate 2023-06-01 20:00:00 71 /min [facility] Oxygen saturation in Arterial blood by Pulse oximetry 2023-06-01 20:00:00 98 /min [facility] Body temperature 2023-06-01 19:26:00 36.44 [facility] Body weight 2023-06-01 10:17:00 59.8 kg [facility] BMI 2023-06-01 10:17:00 26.46 kg/m2 [facility] Body height 2023-05-24 07:34:00 149.9 cm [facility] Systolic blood pressure 2023-05-20 20:39:00 146 mm[Hg] [facility] Diastolic blood pressure 2023-05-20 20:39:00 67 mm[Hg] [facility] Heart rate 2023-05-20 20:39:00 59 /min [facility] Body temperature 2023-05-20 20:39:00 36.33 [facility] Respiratory rate 2023-05-20 20:39:00 18 /min [facility] Oxygen saturation in Arterial blood by Pulse oximetry 2023-05-20 20:39:00 94 /min [facility] Body height 2023-05-17 22:28:00 149.9 cm [facility] Body weight 2023-05-17 22:28:00 58.695 kg [facility] BMI 2023-05-17 22:28:00 26.14 kg/m2 [facility] Systolic blood pressure 2023-05-18 04:00:00 121 mm[Hg] [facility] Diastolic blood pressure 2023-05-18 04:00:00 70 mm[Hg] [facility] Heart rate 2023-05-18 04:00:00 52 /min [facility] Body temperature 2023-05-18 04:00:00 36.44 [facility] Respiratory rate 2023-05-18 04:00:00 18 /min [facility] Oxygen saturation in Arterial blood by Pulse oximetry 2023-05-18 04:00:00 95 /min [facility] Body weight 2023-05-17 17:45:00 59 kg [facility] BMI 2023-05-17 17:45:00 26.14 kg/m2 [facility] Body weight 2023-05-09 21:24:00 59 kg [facility] BMI 2023-05-09 21:24:00 26.27 kg/m2 [facility] Systolic blood pressure 2023-05-06 02:53:00 159 mm[Hg] [facility] Diastolic blood pressure 2023-05-06 02:53:00 97 mm[Hg] [facility] Heart rate 2023-05-06 02:53:00 53 /min [facility] Body temperature 2023-05-06 02:53:00 36.06 [facility] Respiratory rate 2023-05-06 02:53:00 20 /min [facility] Oxygen saturation in Arterial blood by Pulse oximetry 2023-05-06 02:53:00 95 /min [facility] Body weight 2023-05-06 00:41:00 58.968 kg [facility] BMI 2023-05-06 00:41:00 26.26 kg/m2 [facility] Systolic blood pressure 2023-05-05 14:36:00 147 mm[Hg] [facility] Diastolic blood pressure 2023-05-05 14:36:00 90 mm[Hg] [facility] Heart rate 2023-05-05 14:36:00 91 /min [facility] Body height 2023-05-05 14:36:00 149.9 cm [facility] Body weight 2023-05-05 14:36:00 61.236 kg per Pt [facility] BMI 2023-05-05 14:36:00 27.27 kg/m2 [facility] Oxygen saturation in Arterial blood by Pulse oximetry 2023-05-05 14:36:00 94 /min [facility] Body weight 2023-04-22 14:19:00 62.596 kg [facility] BMI 2023-04-22 14:19:00 27.87 kg/m2 [facility] Systolic blood pressure 2023-04-15 16:18:00 134 mm[Hg] [facility] Diastolic blood pressure 2023-04-15 16:18:00 85 mm[Hg] [facility] Heart rate 2023-04-15 16:16:00 70 /min [facility] Body temperature 2023-04-15 16:16:00 36.44 [facility] Respiratory rate 2023-04-15 16:16:00 20 /min [facility] Body height 2023-04-15 16:16:00 149.9 cm [facility] Body weight 2023-04-15 16:16:00 62.596 kg [facility] BMI 2023-04-15 16:16:00 27.87 kg/m2 [facility] Oxygen saturation in Arterial blood by Pulse oximetry 2023-04-15 16:16:00 96 /min [facility] Body height 2023-04-15 15:22:00 149.9 cm [facility] Body weight 2023-04-15 15:22:00 62.596 kg [facility] BMI 2023-04-15 15:22:00 27.87 kg/m2 [facility] Systolic blood pressure 2023-04-08 20:26:00 91 mm[Hg] [facility] Diastolic blood pressure 2023-04-08 20:26:00 54 mm[Hg] [facility] Heart rate 2023-04-08 20:26:00 64 /min [facility] Body temperature 2023-04-08 20:25:00 36.67 [facility] Respiratory rate 2023-04-08 20:25:00 18 /min [facility] Oxygen saturation in Arterial blood by Pulse oximetry 2023-04-08 20:25:00 94 /min [facility] Body weight 2023-04-08 08:19:00 62.959 kg [facility] BMI 2023-04-08 08:19:00 28.03 kg/m2 [facility] Body height 2023-04-07 01:56:00 149.9 cm [facility] Systolic blood pressure 2023-04-01 20:07:00 161 mm[Hg] [facility] Diastolic blood pressure 2023-04-01 20:07:00 89 mm[Hg] [facility] Heart rate 2023-04-01 20:07:00 59 /min [facility] Respiratory rate 2023-04-01 20:07:00 18 /min [facility] Oxygen saturation in Arterial blood by Pulse oximetry 2023-04-01 20:07:00 95 /min [facility] Body temperature 2023-04-01 17:59:00 36.5 [facility] Body height 2023-04-01 17:59:00 149.9 cm [facility] Body weight 2023-04-01 17:59:00 56.7 kg [facility] BMI 2023-04-01 17:59:00 25.25 kg/m2 [facility] Systolic blood pressure 2023-03-31 20:15:00 179 mm[Hg] [facility] Diastolic blood pressure 2023-03-31 20:15:00 90 mm[Hg] [facility] Heart rate 2023-03-31 20:15:00 73 /min [facility] Body temperature 2023-03-31 20:15:00 36.5 [facility] Body height 2023-03-31 20:15:00 149.9 cm [facility] Body weight 2023-03-31 20:15:00 63.504 kg [facility] BMI 2023-03-31 20:15:00 28.28 kg/m2 [facility] Systolic blood pressure 2023-03-24 16:53:00 191 mm[Hg] [facility] Diastolic blood pressure 2023-03-24 16:53:00 86 mm[Hg] [facility] Heart rate 2023-03-24 16:53:00 55 /min [facility] Body temperature 2023-03-24 16:53:00 36.83 [facility] Respiratory rate 2023-03-24 16:53:00 18 /min [facility] Body weight 2023-03-24 16:53:00 63.504 kg [facility] BMI 2023-03-24 16:53:00 28.28 kg/m2 [facility] Oxygen saturation in Arterial blood by Pulse oximetry 2023-03-24 16:53:00 97 /min [facility] Systolic blood pressure 2023-03-22 16:28:00 170 mm[Hg] [facility] Diastolic blood pressure 2023-03-22 16:28:00 67 mm[Hg] [facility] Heart rate 2023-03-22 16:28:00 53 /min [facility] Respiratory rate 2023-03-22 16:28:00 16 /min [facility] Body height 2023-03-22 16:28:00 149.9 cm [facility] Body weight 2023-03-22 16:28:00 63.504 kg [facility] BMI 2023-03-22 16:28:00 28.28 kg/m2 [facility] Oxygen saturation in Arterial blood by Pulse oximetry 2023-03-22 16:28:00 96 /min [facility] Systolic blood pressure 2023-03-18 15:30:00 141 mm[Hg] [facility] Diastolic blood pressure 2023-03-18 15:30:00 49 mm[Hg] [facility] Heart rate 2023-03-18 15:30:00 47 /min [facility] Respiratory rate 2023-03-18 15:30:00 26 /min [facility] Oxygen saturation in Arterial blood by Pulse oximetry 2023-03-18 15:30:00 97 /min [facility] Body temperature 2023-03-18 14:00:00 36.72 [facility] Body height 2023-03-18 14:00:00 149.9 cm [facility] Body weight 2023-03-18 14:00:00 63.504 kg [facility] BMI 2023-03-18 14:00:00 28.28 kg/m2 [facility] Systolic blood pressure 2023-03-17 18:46:00 169 mm[Hg] [facility] Diastolic blood pressure 2023-03-17 18:46:00 67 mm[Hg] [facility] Heart rate 2023-03-17 18:46:00 55 /min [facility] Oxygen saturation in Arterial blood by Pulse oximetry 2023-03-17 18:46:00 95 /min [facility] Body temperature 2023-03-17 18:44:00 36.39 [facility] Respiratory rate 2023-03-17 18:44:00 17 /min [facility] Body height 2023-03-17 18:44:00 149.9 cm [facility] Body weight 2023-03-17 18:44:00 62.506 kg [facility] BMI 2023-03-17 18:44:00 27.83 kg/m2 [facility] Systolic blood pressure 2023-03-15 20:30:00 106 mm[Hg] [facility] Diastolic blood pressure 2023-03-15 20:30:00 61 mm[Hg] [facility] Heart rate 2023-03-15 20:30:00 65 /min [facility] Body temperature 2023-03-15 20:30:00 35.72 [facility] Respiratory rate 2023-03-15 20:30:00 18 /min [facility] Body height 2023-03-15 20:30:00 149.9 cm [facility] Body weight 2023-03-15 20:30:00 63.504 kg [facility] BMI 2023-03-15 20:30:00 28.28 kg/m2 [facility] Oxygen saturation in Arterial blood by Pulse oximetry 2023-03-15 20:30:00 96 /min [facility] Body height 2023-03-07 18:33:00 152.4 cm [facility] Body weight 2023-03-07 18:33:00 66.407 kg [facility] 2023-03-07 18:33:00 28.59 kg/m2 [facility] Systolic blood pressure 2023-02-24 15:34:00 148 mm[Hg] [facility] Diastolic blood pressure 2023-02-24 15:34:00 67 mm[Hg] [facility] Heart rate 2023-02-24 15:34:00 58 /min [facility]-02-24 15:34:00 [facility]9 [facility] 2023-02-24 15:34:00 63.504 kg [facility] BMI 2023-02-24 15:34:00 28.28 kg/m2 [facility] Oxygen saturation in Arterial blood by Pulse oximetry 2023-02-24 15:34:00 98 /min [facility] Systolic blood pressure 2023-02-21 14:02:00 136 mm[Hg] [facility] Diastolic blood pressure 2023-02-21 14:02:00 63 mm[Hg] [facility] Heart rate 2023-02-21 13:58:00 61 /min [facility] Body temperature 2023-02-21 13:58:00 36.78 [facility] Respiratory rate 2023-02-21 13:58:00 18 /min [facility] Body weight 2023-02-21 13:58:00 62.823 kg [facility] BMI 2023-02-21 13:58:00 27.97 kg/m2 [facility] Oxygen saturation in Arterial blood by Pulse oximetry 2023-02-21 13:58:00 94 /min [facility] Systolic blood pressure 2023-02-12 15:00:00 119 mm[Hg] [facility] Diastolic blood pressure 2023-02-12 15:00:00 62 mm[Hg] [facility] Heart rate 2023-02-12 15:00:00 54 /min [facility] Respiratory rate 2023-02-12 15:00:00 16 /min [facility] Oxygen saturation in Arterial blood by Pulse oximetry 2023-02-12 15:00:00 93 /min [facility] Body temperature 2023-02-12 12:00:00 36.39 [facility] Body weight 2023-02-12 11:00:00 64.456 kg [facility] BMI 2023-02-12 11:00:00 28.70 kg/m2 [facility] Body height 2023-02-08 13:31:00 149.9 cm [facility] Systolic blood pressure 2023-01-24 14:56:00 146 mm[Hg] [facility] Diastolic blood pressure 2023-01-24 14:56:00 98 mm[Hg] [facility] Heart rate 2023-01-24 14:53:00 108 /min [facility] Body temperature 2023-01-24 14:53:00 36.44 [facility] Respiratory rate 2023-01-24 14:53:00 18 /min [facility] Body height 2023-01-24 14:53:00 149.9 cm [facility] Body weight 2023-01-24 14:53:00 64.955 kg [facility] BMI 2023-01-24 14:53:00 28.92 kg/m2 [facility] Oxygen saturation in Arterial blood by Pulse oximetry 2023-01-24 14:53:00 96 /min [facility] Systolic blood pressure 2023-01-20 19:53:00 162 mm[Hg] [facility] Diastolic blood pressure 2023-01-20 19:53:00 93 mm[Hg] [facility] Heart rate 2023-01-20 19:53:00 72 /min [facility] Body height 2023-01-20 19:53:00 149.9 cm [facility] Body weight 2023-01-20 19:53:00 64.547 kg [facility] BMI 2023-01-20 19:53:00 28.74 kg/m2 [facility] Oxygen saturation in Arterial blood by Pulse oximetry 2023-01-20 19:53:00 94 /min [facility] Systolic blood pressure 2023-01-18 15:00:00 129 mm[Hg] [facility] Diastolic blood pressure 2023-01-18 15:00:00 77 mm[Hg] [facility] Heart rate 2023-01-18 15:00:00 64 /min [facility] Respiratory rate 2023-01-18 15:00:00 20 /min [facility] Oxygen saturation in Arterial blood by Pulse oximetry 2023-01-18 15:00:00 94 /min [facility] Body temperature 2023-01-18 12:20:00 36.5 [facility] Body weight 2023-01-18 09:00:00 64.456 kg [facility] BMI 2023-01-18 09:00:00 28.70 kg/m2 [facility] Body height 2023-01-16 23:18:00 149.9 cm [facility] Systolic blood pressure 2023-01-14 18:54:00 184 mm[Hg] [facility] Diastolic blood pressure 2023-01-14 18:54:00 74 mm[Hg] [facility] Heart rate 2023-01-14 18:50:00 52 /min [facility] Body temperature 2023-01-14 18:50:00 35.78 [facility] Respiratory rate 2023-01-14 18:50:00 18 /min [facility] Body height 2023-01-14 18:50:00 149.9 cm [facility] Body weight 2023-01-14 18:50:00 65.363 kg [facility] BMI 2023-01-14 18:50:00 29.10 kg/m2 [facility] Oxygen saturation in Arterial blood by Pulse oximetry 2023-01-14 18:50:00 96 /min [facility] Systolic blood pressure 2022-10-26 23:20:00 190 mm[Hg] [facility] Diastolic blood pressure 2022-10-26 23:20:00 80 mm[Hg] [facility] Heart rate 2022-10-26 23:20:00 56 /min [facility] Respiratory rate 2022-10-26 23:20:00 15 /min [facility] Oxygen saturation in Arterial blood by Pulse oximetry 2022-10-26 23:20:00 95 /min [facility] Body temperature 2022-10-26 21:09:00 36.78 [facility] Body weight 2022-10-26 21:09:00 64.864 kg [facility] BMI 2022-10-26 21:09:00 28.88 kg/m2 [facility] Systolic blood pressure 2022-10-26 21:04:00 221 mm[Hg] [facility] Diastolic blood pressure 2022-10-26 21:04:00 72 mm[Hg] [facility] Heart rate 2022-10-26 21:03:00 65 /min [facility] Body temperature 2022-10-26 21:03:00 36.94 [facility] Respiratory rate 2022-10-26 21:03:00 14 /min [facility] Body weight 2022-10-26 21:03:00 64.864 kg [facility] BMI 2022-10-26 21:03:00 28.88 kg/m2 [facility] Oxygen saturation in Arterial blood by Pulse oximetry 2022-10-26 21:03:00 96 /min [facility] Systolic blood pressure 2022-09-09 17:39:00 138 mm[Hg] [facility] Diastolic blood pressure 2022-09-09 17:39:00 54 mm[Hg] [facility] Heart rate 2022-09-09 17:39:00 65 /min [facility] Body temperature 2022-09-09 17:39:00 37.06 [facility] Respiratory rate 2022-09-09 17:39:00 18 /min [facility] Body height 2022-09-09 17:39:00 149.9 cm [facility] Body weight 2022-09-09 17:39:00 65.137 kg [facility] BMI 2022-09-09 17:39:00 29.00 kg/m2 [facility] Oxygen saturation in Arterial blood by Pulse oximetry 2022-09-09 17:39:00 95 /min [facility] Systolic blood pressure 2022-08-27 05:00:00 174 mm[Hg] [facility] Diastolic blood pressure 2022-08-27 05:00:00 69 mm[Hg] [facility] Heart rate 2022-08-27 05:00:00 56 /min [facility] Respiratory rate 2022-08-27 05:00:00 14 /min [facility] Oxygen saturation in Arterial blood by Pulse oximetry 2022-08-27 05:00:00 94 /min [facility] Body temperature 2022-08-27 04:23:00 36.44 [facility] Body height 2022-08-27 04:23:00 149.9 cm [facility] Body weight 2022-08-27 04:23:00 65.772 kg [facility] BMI 2022-08-27 04:23:00 29.29 kg/m2 [facility] Systolic blood pressure 2022-08-19 16:44:00 189 mm[Hg] [facility] Diastolic blood pressure 2022-08-19 16:44:00 75 mm[Hg] [facility] Heart rate 2022-08-19 16:34:00 65 /min [facility] Body temperature 2022-08-19 16:34:00 36.83 [facility] Respiratory rate 2022-08-19 16:34:00 14 /min [facility] Body height 2022-08-19 16:34:00 149.9 cm [facility] Body weight 2022-08-19 16:34:00 65.363 kg [facility] BMI 2022-08-19 16:34:00 29.10 kg/m2 [facility] Oxygen saturation in Arterial blood by Pulse oximetry 2022-08-19 16:34:00 97 /min [facility] Systolic blood pressure 2022-04-02 14:21:00 174 mm[Hg] [facility] Diastolic blood pressure 2022-04-02 14:21:00 60 mm[Hg] [facility] Heart rate 2022-04-02 14:18:00 58 /min [facility] Body temperature 2022-04-02 14:18:00 36.67 [facility] Respiratory rate 2022-04-02 14:18:00 16 /min [facility] Body height 2022-04-02 14:18:00 149.9 cm [facility] Body weight 2022-04-02 14:18:00 65.318 kg [facility] BMI 2022-04-02 14:18:00 29.08 kg/m2 [facility] Oxygen saturation in Arterial blood by Pulse oximetry 2022-04-02 14:18:00 96 /min [facility] Body temperature 2023-09-08 17:00:00 36.56 [facility] Systolic blood pressure 2023-09-08 12:00:00 166 mm[Hg] [facility] Diastolic blood pressure 2023-09-08 12:00:00 67 mm[Hg] [facility] Heart rate 2023-09-08 12:00:00 55 /min [facility] Respiratory rate 2023-09-08 12:00:00 12 /min [facility] Oxygen saturation in Arterial blood by Pulse oximetry 2023-09-08 12:00:00 98 /min [facility] Body height 2023-08-29 11:52:00 149.9 cm [facility] Body weight 2023-08-29 11:52:00 55.5 kg [facility] BMI 2023-08-29 11:52:00 24.71 kg/m2 [facility] Systolic blood pressure 2023-05-28 14:00:00 155 mm[Hg] [facility] Diastolic blood pressure 2023-05-28 14:00:00 60 mm[Hg] [facility] Heart rate 2023-05-28 14:00:00 59 /min [facility] in [facility]terial blood by Pulse oximetry 2023-05-28 14:00:00 97 /min [facility] Body temperature 2023-05-28 13:14:00 36.61 [facility] Respiratory rate 2023-05-28 13:14:00 18 /min [facility] Body weight 2023-05-28 09:00:00 64.9 kg [facility] BMI 2023-05-28 09:00:00 28.90 kg/m2 [facility] Body height 2023-05-24 07:34:00 149.9 cm [facility] Systolic blood pressure 2023-02-12 15:00:00 119 mm[Hg] [facility] Diastolic blood pressure 2023-02-12 15:00:00 62 mm[Hg] [facility] Heart rate 2023-02-12 15:00:00 54 /min [facility] 2023-02-12 15:00:00 16 /min [facility] Oxygen saturation in Arterial blood by Pulse oximetry 2023-02-12 15:00:00 93 /min [facility] Body temperature 2023-02-12 12:00:00 36.39 [facility] Body weight 2023-02-12 11:00:00 64.456 kg [facility] BMI 2023-02-12 11:00:00 28.70 kg/m2 [facility] Body height 2023-02-08 13:31:00 149.9 cm [facility] Procedures Procedure Date / Time Performed Performing Clinician Source PHOSPHORUS 2023-09-14 09:07:00 Arya Pendleton [facility] MAGNESIUM 2023-09-14 09:07:00 Ai Colvin [facility] BASIC METABOLIC PANEL (NA, K, CL, CO2, GLUCOSE, BUN, CREATININE, CA) 2023-09-14 09:07:00 Jose [facility] CBC WITH DIFF 2023-09-14 09:07:00 Jose [facility] XR CHEST 1 VW 2023-09-13 16:06:36 Jose [facility] MAGNESIUM 2023-09-13 11:49:00 Jose [facility] BASIC METABOLIC PANEL (NA, K, CL, CO2, GLUCOSE, BUN, CREATININE, CA) 2023-09-13 11:49:00 Jose [facility] CBC WITH DIFF 2023-09-13 11:49:00 Colvin, [facility] URINALYSIS 2023-09-12 19:44:00 Abu Jesus [facility] BASIC METABOLIC PANEL (NA, K, CL, CO2, GLUCOSE, BUN, CREATININE, CA) 2023-09-12 12:08:00 Westley Lee [facility] CBC WITH DIFF 2023-09-12 12:08:00 Westley Lee [facility] COVID-19 (MOLECULAR TESTING NUCLEIC ACID AMPLIFICATION) 2023-09-11 19:13:00 [facility] 2023-09-11 19:13:00 Alia Ruib [facility] MAGNESIUM 2023-09-11 11:53:00 [facility]OLIC PANEL (NA, K, CL, CO2, GLUCOSE, BUN, CREATININE, CA) 2023-09-11 11:53:00 Westley Lee [facility] CBC WITH DIFF 2023-09-11 11:53:00 Westley Lee [facility] XR CHEST 1 VW 2023-09-10 18:27:22 [facility]IC PANEL (NA, K, CL, CO2, GLUCOSE, BUN, CREATININE, CA) 2023-09-10 12:15:00 Helder [facility] CBC WITH DIFF 2023-09-10 12:15:00 Helder [facility] XR CHEST 1 VW 2023-09-10 00:06:06 Alia Rubi [facility] PHOSPHORUS 2023-09-09 15:21:00 Jos [facility] MAGNESIUM 2023-09-09 15:21:00 Jos [facility] BASIC METABOLIC PANEL (NA, K, CL, CO2, GLUCOSE, BUN, CREATININE, CA) 2023-09-09 15:21:00 Jos [facility] CBC WITH DIFF 2023-09-09 15:21:00 Jos [facility] LDH TOTAL BODY FLUID 2023-09-08 22:14:00 Greyson [facility] GLUCOSE BODY FLUID 2023-09-08 22:14:00 Greyson [facility] T.PROTEIN BODY FLUID 2023-09-08 22:14:00 Greyson [facility] BODY FLUID DIRECT COUNT 2023-09-08 22:14:00 Greyson [facility] BODY FLUID CULTURE(AEROBIC/ANAEROBIC) 2023-09-08 22:14:00 [facility] 2023-09-08 21:15:00 Salena Ramirez [facility] XR CHEST 1 2023-09-08 12:44:00 [facility] ACTIVATED PARTIAL THRMPLAS OSVALDO 2023-09-08 09:16:00 Dereje Lopes [facility] BASIC METABOLIC PANEL (NA, K, CL, CO2, GLUCOSE, BUN, CREATININE, CA) 2023-09-08 09:16:00 Terminmyles [facility] MAGNESIUM 2023-09-08 09:16:00 Terminella [facility] PHOSPHORUS 2023-09-08 09:16:00 Terminmyles [facility] CBC WITH DIFF 2023-09-08 09:16:00 Terminella [facility] PHOSPHORUS 2023-09-08 09:16:00 Terminella [facility] MAGNESIUM 2023-09-08 09:16:00 Helder [facility] BASIC METABOLIC PANEL (NA, K, CL, CO2, GLUCOSE, BUN, CREATININE, CA) 2023-09-08 09:16:00 Helder [facility] CBC WITH DIFF 2023-09-08 09:16:00 Helder [facility] ACTIVATED PARTIAL THRMPLAS OSVALDO 2023-09-08 09:16:00 [facility] ACTIVATED PARTIAL THRMPLAS OSVALDO 2023-09-07 20:27:00 Albustanthony [facility] ACTIVATED PARTIAL THRMPLAS OSVALDO 2023-09-07 20:27:00 Marianne [facility] TRANSESOPHAGEAL ECHO (HEATHER) COMPLETE W/ DOPPLER AND COLOR 2023-09-07 17:57:00 [facility] TRANSESOPHAGEAL ECHO (HEATHER) COMPLETE W/ DOPPLER AND COLOR 2023-09-07 17:57:00 [facility] CARDIOVERSION EXTERNAL 2023-09-07 17:49:00 [facility] CARDIOVERSION EXTERNAL 2023-09-07 17:49:00 [facility] CBC WITHOUT DIFF 2023-09-07 07:42:00 Jos [facility] ACTIVATED PARTIAL THRMPLAS OSVALDO 2023-09-07 07:42:00 [facility] BASIC METABOLIC PANEL (NA, K, CL, CO2, GLUCOSE, BUN, CREATININE, CA) 2023-09-07 07:42:00 [facility] MAGNESIUM 2023-09-07 07:42:00 Albjosephine [facility] MAGNESIUM 2023-09-07 07:42:00 Marianne [facility] BASIC METABOLIC PANEL (NA, K, CL, CO2, GLUCOSE, BUN, CREATININE, CA) 2023-09-07 07:42:00 [facility] CBC WITHOUT DIFF 2023-09-07 07:42:00 Jos [facility] ACTIVATED PARTIAL THRMPLAS OSVALDO 2023-09-07 07:42:00 Blair Ponce [facility] AC PANEL 20 + LACTIC ACID 2023-09-06 19:26:00 [facility] + LACTIC ACID 2023-09-06 19:26:00 [facility] ACTIVATED PARTIAL THRMPLAS OSVALDO 2023-09-06 19:10:00 [facility] ACTIVATED PARTIAL THRMPLAS OSVALDO 2023-09-06 19:10:00 [facility] CBC WITHOUT DIFF 2023-09-06 09:33:00 Jos, [facility] ACTIVATED PARTIAL THRMPLAS OSVALDO 2023-09-06 09:33:00 Marianne [facility] BASIC METABOLIC PANEL (NA, K, CL, CO2, GLUCOSE, BUN, CREATININE, CA) 2023-09-06 09:33:00 Marianne [facility] MAGNESIUM 2023-09-06 09:33:00 [facility] 2023-09-06 09:33:00 [facility] BASIC METABOLIC PANEL (NA, K, CL, CO2, GLUCOSE, BUN, CREATININE, CA) 2023-09-06 09:33:00 [facility] CBC WITHOUT DIFF 2023-09-06 09:33:00 Jos, [facility] ACTIVATED PARTIAL THRMPLAS OSVALDO 2023-09-06 09:33:00 [facility]ne [facility] ACTIVATED PARTIAL THRMPLAS OSVALDO 2023-09-06 00:30:00 Jos, [facility] ACTIVATED PARTIAL THRMPLAS OSVALDO 2023-09-06 00:30:00 Jos, [facility] ACTIVATED PARTIAL THRMPLAS OSVALDO 2023-09-05 20:18:00 Jos, [facility] PROTHROMBIN TIME / INR 2023-09-05 20:18:00 Jos, [facility] PROTHROMBIN TIME / INR 2023-09-05 20:18:00 Jos, [facility] ACTIVATED PARTIAL THRMPLAS OSVALDO 2023-09-05 20:18:00 Jos Queta [facility] XR CHEST 1 VW 2023-09-05 17:15:00 Alia Rubi [facility] XR CHEST 1 VW 2023-09-05 17:15:00 Alia Rubi [facility] CBC WITH DIFF 2023-09-05 10:54:00 Abu Jesus [facility] BASIC METABOLIC PANEL (NA, K, CL, CO2, GLUCOSE, BUN, CREATININE, CA) 2023-09-05 10:54:00 Abu Jesus [facility] MAGNESIUM 2023-09-05 10:54:00 Abu Jesus, [facility] PHOSPHORUS 2023-09-05 10:54:00 Sen, [facility] ALBUMIN 2023-09-05 10:54:00 Sen, [facility] PHOSPHORUS 2023-09-05 10:54:00 Sen, [facility] ALBUMIN 2023-09-05 10:54:00 Sen, [facility] MAGNESIUM 2023-09-05 10:54:00 Abu Jesus, [facility] BASIC METABOLIC PANEL (NA, K, CL, CO2, GLUCOSE, BUN, CREATININE, CA) 2023-09-05 10:54:00 Abu Jesus, [facility] CBC WITH DIFF 2023-09-05 10:54:00 Abu Jesus, [facility] CBC WITH DIFF 2023-09-04 10:19:00 Jose [facility] BASIC METABOLIC PANEL (NA, K, CL, CO2, GLUCOSE, BUN, CREATININE, CA) 2023-09-04 10:19:00 Jose [facility] MAGNESIUM 2023-09-04 10:19:00 Jose [facility] MAGNESIUM 2023-09-04 10:19:00 Jose [facility] BASIC METABOLIC PANEL (NA, K, CL, CO2, GLUCOSE, BUN, CREATININE, CA) 2023-09-04 10:19:00 Jose [facility] CBC WITH DIFF 2023-09-04 10:19:00 Jose [facility] BLOOD CULTURE SCREEN 2023-09-03 17:10:00 Jose [facility] BLOOD CULTURE SCREEN 2023-09-03 17:10:00 Jose [facility] CORTISOL AM 2023-09-03 17:01:00 Jose [facility] CORTISOL AM 2023-09-03 17:01:00 Jose [facility] BLOOD CULTURE SCREEN 2023-09-03 17:00:00 Jose [facility] BLOOD CULTURE SCREEN 2023-09-03 17:00:00 Jose [facility] HEMOGLOBIN 2023-09-03 14:56:00 Rick Fitch [facility] HEMOGLOBIN 2023-09-03 14:56:00 Rick Fitch [facility] CBC WITH DIFF 2023-09-03 10:32:00 Jose [facility] BASIC METABOLIC PANEL (NA, K, CL, CO2, GLUCOSE, BUN, CREATININE, CA) 2023-09-03 10:32:00 Jose [facility] MAGNESIUM 2023-09-03 10:32:00 Jose [facility] ACTIVATED PARTIAL THRMPLAS OSVALDO 2023-09-03 10:32:00 Marianne [facility] PROTHROMBIN TIME / INR 2023-09-03 10:32:00 Jose [facility] MAGNESIUM 2023-09-03 10:32:00 Jose [facility] BASIC METABOLIC PANEL (NA, K, CL, CO2, GLUCOSE, BUN, CREATININE, CA) 2023-09-03 10:32:00 Jose [facility] CBC WITH DIFF 2023-09-03 10:32:00 Jose [facility] PROTHROMBIN TIME / INR 2023-09-03 10:32:00 Jose [facility] ACTIVATED PARTIAL THRMPLAS OSVALDO 2023-09-03 10:32:00 Marianne Dereje [facility] OSMOLALITY URINE 2023-09-03 07:33:00 Badalamenti, [facility] SODIUM, URINE RANDOM 2023-09-03 07:33:00 Badalamenti, [facility] POTASSIUM, URINE RANDOM 2023-09-03 07:33:00 Badalamenti, [facility] CREATININE, URINE RANDOM 2023-09-03 07:33:00 Badalamenti, [facility] UREA NITROGEN, URINE RANDOM 2023-09-03 07:33:00 Badalamenti, [facility] OSMOLALITY URINE 2023-09-03 07:33:00 Badalamenti, [facility] CREATININE, URINE RANDOM 2023-09-03 07:33:00 Badalamenti, [facility] UREA NITROGEN, URINE RANDOM 2023-09-03 07:33:00 Badalamenti, [facility] POTASSIUM, URINE RANDOM 2023-09-03 07:33:00 Badalamenti, [facility] SODIUM, URINE RANDOM 2023-09-03 07:33:00 Badalamenti, [facility] ACTIVATED PARTIAL THRMPLAS OSVALDO 2023-09-03 03:29:00 [facility] ACTIVATED PARTIAL THRMPLAS OSVALDO 2023-09-03 03:29:00 [facility] HEMOGLOBIN 2023-09-02 17:45:00 Helder [facility] HEMOGLOBIN 2023-09-02 17:45:00 Helder [facility] CT ABDOMEN PELVIS WO CONTRAST 2023-09-02 17:22:00 Jose [facility] CT ABDOMEN PELVIS WO CONTRAST 2023-09-02 17:22:00 Jose [facility] CBC WITH DIFF 2023-09-02 11:19:00 Jose [facility] BASIC METABOLIC PANEL (NA, K, CL, CO2, GLUCOSE, BUN, CREATININE, CA) 2023-09-02 11:19:00 Jose [facility] MAGNESIUM 2023-09-02 11:19:00 Jose [facility] ACTIVATED PARTIAL THRMPLAS OSVALDO 2023-09-02 11:19:00 [facility] MAGNESIUM 2023-09-02 11:19:00 Jose [facility] BASIC METABOLIC PANEL (NA, K, CL, CO2, GLUCOSE, BUN, CREATININE, CA) 2023-09-02 11:19:00 Jose [facility] CBC WITH DIFF 2023-09-02 11:19:00 Jose [facility] ACTIVATED PARTIAL THRMPLAS OSVALDO 2023-09-02 11:19:00 [facility] ACTIVATED PARTIAL THRMPLAS OSVALDO 2023-09-02 00:19:00 [facility] ACTIVATED PARTIAL THRMPLAS OSVALDO 2023-09-02 00:19:00 [facility] XR CHEST 1 VW 2023-09-01 16:46:00 Jose [facility] XR CHEST 1 VW 2023-09-01 16:46:00 Jose [facility] CBC WITH DIFF 2023-09-01 10:59:00 Jose [facility] BASIC METABOLIC PANEL (NA, K, CL, CO2, GLUCOSE, BUN, CREATININE, CA) 2023-09-01 10:59:00 Jose [facility] MAGNESIUM 2023-09-01 10:59:00 Jose [facility] ACTIVATED PARTIAL THRMPLAS OSVALDO 2023-09-01 10:59:00 [facility] N-TERMINAL PRO-BNP 2023-09-01 10:59:00 Chidi [facility] MAGNESIUM 2023-09-01 10:59:00 Jose [facility] BASIC METABOLIC PANEL (NA, K, CL, CO2, GLUCOSE, BUN, CREATININE, CA) 2023-09-01 10:59:00 Jose [facility] CBC WITH DIFF 2023-09-01 10:59:00 Jose [facility] ACTIVATED PARTIAL THRMPLAS OSVALDO 2023-09-01 10:59:00 [facility] N-TERMINAL PRO-BNP 2023-09-01 10:59:00 Chidi [facility] ACTIVATED PARTIAL THRMPLAS OSVALDO 2023-09-01 06:37:00 [facility] ACTIVATED PARTIAL THRMPLAS OSVALDO 2023-09-01 06:37:00 [facility] ACTIVATED PARTIAL THRMPLAS OSVALDO 2023-08-31 20:24:00 [facility] ACTIVATED PARTIAL THRMPLAS OSVALDO 2023-08-31 20:24:00 [facility] PROTHROMBIN TIME / INR 2023-08-31 14:27:00 Albustami, [facility] ACTIVATED PARTIAL THRMPLAS OSVALDO 2023-08-31 14:27:00 Albustami, [facility] PROTHROMBIN TIME / INR 2023-08-31 14:27:00 Albustami, [facility] ACTIVATED PARTIAL THRMPLAS OSVALDO 2023-08-31 14:27:00 Marianne [facility] CBC WITH DIFF 2023-08-31 10:56[facility] BASIC METABOLIC PANEL (NA, K, CL, CO2, GLUCOSE, BUN, CREATININE, CA) 2023-08-31 10:56:00 Albjosephine, [facility] MAGNESIUM 2023-08-31 10:56:00 Albustami, [facility] PHOSPHORUS 2023-08-31 10:56:00 Albustami, [facility] PHOSPHORUS 2023-08-31 10:56:00 Albustami, [facility] MAGNESIUM 2023-08-31 10:56:00 Albustanthony, [facility] BASIC METABOLIC PANEL (NA, K, CL, CO2, GLUCOSE, BUN, CREATININE, CA) 2023-08-31 10:56:00 Albjosephine, [facility] CBC WITH DIFF 2023-08-31 10:56[facility] BASIC METABOLIC PANEL (NA, K, CL, CO2, GLUCOSE, BUN, CREATININE, CA) 2023-08-30 21:22:00 Rick Fitch [facility] BASIC METABOLIC PANEL (NA, K, CL, CO2, GLUCOSE, BUN, CREATININE, CA) 2023-08-30 21:22:00 Rick Fitch [facility] RETROPERITONEAL LIMITED 2023-08-30 19:20:00 Sen, [facility] RETROPERITONEAL LIMITED 2023-08-30 19:20:00 Sen, [facility] SODIUM, URINE RANDOM 2023-08-30 18:56:00 Sen, [facility] CREATININE, URINE RANDOM 2023-08-30 18:56:00 Sen, [facility] POTASSIUM, URINE RANDOM 2023-08-30 18:56:00 Sen, [facility] OSMOLALITY URINE 2023-08-30 18:56:00 Sen, [facility] OSMOLALITY URINE 2023-08-30 18:56:00 Sen, [facility] CREATININE, URINE RANDOM 2023-08-30 18:56:00 Sen, [facility] POTASSIUM, URINE RANDOM 2023-08-30 18:56:00 Sen, [facility] SODIUM, URINE RANDOM 2023-08-30 18:56:00 Sen, [facility] COMP. METABOLIC PANEL ([id number]) 2023-08-30 14:34:00 [facility] 14:34:00 Sen, [facility] MAGNESIUM 2023-08-30 14:34:00 Sen, [facility] OSMOLALITY, SERUM OR PLASMA 2023-08-30 14:34:00 Sen, [facility] PHOSPHORUS 2023-08-30 14:34:00 Sen, [facility] acute [facility] MAGNESIUM 2023-08-30 14:34:00 Sen, [facility] OSMOLALITY, SERUM OR PLASMA 2023-08-30 14:34:00 Sen, [facility] acute hospital COMP. METABOLIC PANEL ([id number]) 2023-08-30 14:34:00 Jose [facility] POCT GLUCOSE (AUTOMATED) 2023-08-30 13:45:00 Damion [facility] POCT GLUCOSE (AUTOMATED) 2023-08-30 13:45:00 Damion [facility] BASIC METABOLIC PANEL (NA, K, CL, CO2, GLUCOSE, BUN, CREATININE, CA) 2023-08-30 07:18:00 Colvin, [facility] CBC WITH DIFF 2023-08-30 07:18:00 Colvin, [place] [facility] MAGNESIUM 2023-08-30 07:18:00 Colvin, [facility] PHOSPHORUS 2023-08-30 07:18:00 Colvin, [facility] PHOSPHORUS 2023-08-30 07:18:00 Colvin, [facility] MAGNESIUM 2023-08-30 07:18:00 Colvin, [facility] BASIC METABOLIC PANEL (NA, K, CL, CO2, GLUCOSE, BUN, CREATININE, CA) 2023-08-30 07:18:00 Colvin, [facility] CBC WITH DIFF 2023-08-30 07:18:00 Colvin, [facility] XR CHEST 1 VW 2023-08-30 00:42:00 Colvin, [facility] XR CHEST 1 VW 2023-08-30 00:42:00 Colvin, [facility] BASIC METABOLIC PANEL (NA, K, CL, CO2, GLUCOSE, BUN, CREATININE, CA) 2023-08-29 22:00:00 Pankaj [facility] LACTATE DEHYDROGENASE 2023-08-29 22:00:00 Jose [facility] FERRITIN SERUM 2023-08-29 22:00:00 Jose [facility] LACTATE DEHYDROGENASE 2023-08-29 22:00:00 Jose [facility] FERRITIN SERUM 2023-08-29 22:00:00 Jose [facility] BASIC METABOLIC PANEL (NA, K, CL, CO2, GLUCOSE, BUN, CREATININE, CA) 2023-08-29 22:00:00 Pankaj [facility] PH, BODY FLUID 2023-08-29 21:58:00 Jose [facility] HIGH SENSITIVITY CRP 2023-08-29 21:58:00 Jose [facility] D-DIMER 2023-08-29 21:58:00 Jose [facility] PH, BODY FLUID 2023-08-29 21:58:00 Jose [facility] D-DIMER 2023-08-29 21:58:00 Jose [facility] HIGH SENSITIVITY CRP 2023-08-29 21:58:00 Jose [facility] CYTO PLEURAL FLUID 2023-08-29 21:17:00 Jose [facility] CYTO PLEURAL FLUID 2023-08-29 21:17:00 Jose [facility] BODY FLUID MANUAL DIFF 2023-08-29 21:12:00 Jose [facility] LDH TOTAL BODY FLUID 2023-08-29 21:12:00 Jose [facility] T.PROTEIN BODY FLUID 2023-08-29 21:12:00 Jose [facility] BODY FLUID CULTURE(AEROBIC/ANAEROBIC) 2023-08-29 21:12:00 Jose [facility] T.PROTEIN BODY FLUID 2023-08-29 21:12:00 Jose [facility] LDH TOTAL BODY FLUID 2023-08-29 21:12:00 Jose [facility] BODY FLUID DIRECT COUNT 2023-08-29 21:12:00 Jose [facility] BODY FLUID CULTURE(AEROBIC/ANAEROBIC) 2023-08-29 21:12:00 Jose [facility] CT ABDOMEN PELVIS WO CONTRAST 2023-08-29 18:19:54 Colvin [facility] CT ABDOMEN PELVIS WO CONTRAST 2023-08-29 18:19:54 Jose [facility] BASIC METABOLIC PANEL (NA, K, CL, CO2, GLUCOSE, BUN, CREATININE, CA) 2023-08-29 16:50:00 Jose [facility] ACTIVATED PARTIAL THRMPLAS OSVALDO 2023-08-29 16:50:00 Blair [facility] BASIC METABOLIC PANEL (NA, K, CL, CO2, GLUCOSE, BUN, CREATININE, CA) 2023-08-29 16:50:00 Jose, [facility] ACTIVATED PARTIAL THRMPLAS OSVALDO 2023-08-29 16:50:00 Kris [facility] OSMOLALITY URINE 2023-08-29 15:00:00 Damion, [facility] OSMOLALITY URINE 2023-08-29 15:00:00 Damion, [facility] BASIC METABOLIC PANEL (NA, K, CL, CO2, GLUCOSE, BUN, CREATININE, CA) 2023-08-29 12:24:00 Damion, [facility] MAGNESIUM 2023-08-29 12:24:00 Damion, [facility] N-TERMINAL PRO-BNP 2023-08-29 12:24:00 Damion, [facility] OSMOLALITY, SERUM OR PLASMA 2023-08-29 12:24:00 Damion, [facility] MRSA / MSSA SCREEN BY PCR, NARTAMMY 2023-08-29 12:24:00 Damion, [facility] MAGNESIUM 2023-08-29 12:24:00 Damion, [facility] OSMOLALITY, SERUM OR PLASMA 2023-08-29 12:24:00 Damion, [facility] BASIC METABOLIC PANEL (NA, K, CL, CO2, GLUCOSE, BUN, CREATININE, CA) 2023-08-29 12:24:00 Damion, [facility] N-TERMINAL PRO-BNP 2023-08-29 12:24:00 Damion, [facility] MRSA / MSSA SCREEN BY PCRTANVI 2023-08-29 12:24:00 Damion, [facility] BLOOD CULTURE SCREEN 2023-08-29 08:04:00 Syed [facility] LACTIC ACID WHOLE BLOOD 2023-08-29 08:04:00 Syed [facility] BLOOD CULTURE SCREEN 2023-08-29 08:04:00 Syed [facility] LACTIC ACID WHOLE BLOOD 2023-08-29 08:04:00 Syed [facility] URINALYSIS 2023-08-29 07:42:00 Syed [facility] SODIUM, URINE RANDOM 2023-08-29 07:42:00 DamionJordan foote [facility] URINALYSIS 2023-08-29 07:42:00 Syed [facility] SODIUM, URINE RANDOM 2023-08-29 07:42:00 Jordan [facility] XR CHEST 1 VW 2023-08-29 07:24:22 Syed [facility] XR CHEST 1 VW 2023-08-29 07:24:22 Syed [facility] COVID-19 (ID NOW RAPID TESTING) 2023-08-29 07:18:00 Syed [facility] RAPID INFLUENZA A/B 2023-08-29 07:18:00 Syed [facility] LAB ONLY COVID INTERPRETATION 2023-08-29 07:18:00 Syed [facility] RAPID INFLUENZA A/B 2023-08-29 07:18:00 Syed [facility] COVID-19 (ID NOW RAPID TESTING) 2023-08-29 07:18:00 Syed [facility] LAB ONLY COVID INTERPRETATION 2023-08-29 07:18:00 Syed [facility] HB ECG ROUTINE & RHYTHM STRIP 2023-08-29 06:50:37 Syed [facility] HB ECG ROUTINE & RHYTHM STRIP 2023-08-29 06:50:37 Syed [facility] CBC WITH DIFF 2023-08-29 06:43:00 Syed [facility] COMP. METABOLIC PANEL ([id number]) 2023-08-29 06:43:00 Syed [facility] MAGNESIUM 2023-08-29 06:43:00 Syed [facility] LIPASE 2023-08-29 06:43:00 Syed [facility] TROPONIN I 2023-08-29 06:43:00 Syed [facility] LIPASE 2023-08-29 06:43:00 Syed [facility] MAGNESIUM 2023-08-29 06:43:00 Syed [facility] TROPONIN I 2023-08-29 06:43:00 Syed [facility] COMP. METABOLIC PANEL ([id number]) 2023-08-29 06:43:00 Syed [facility]field [facility] CBC WITH DIFF 2023-08-29 06:43:00 Syed [facility] NOTICE OF PRIVACY PRACTICES 2023-08-29 06:17:58 Doctor Unassigned, [facility] NOTICE OF PRIVACY PRACTICES 2023-08-29 06:17:58 Doctor Unassigned, [facility] CONSENT/REFUSAL FOR DIAGNOSIS AND TREATMENT 2023-08-29 06:17:01 Doctor Unassigned, [facility] CONSENT/REFUSAL FOR DIAGNOSIS AND TREATMENT 2023-08-29 06:17:01 Doctor Unassigned, [facility] HOSPITAL ADMISSION 2023-08-29 06:01:00 Doctor Unassigned, [facility] HOSPITAL ADMISSION 2023-08-29 06:01:00 Doctor Unassigned, [facility] BASIC METABOLIC PANEL (NA, K, CL, CO2, GLUCOSE, BUN, CREATININE, CA) 2023-08-14 09:40:00 [facility] 2023-08-14 09:40:00 Keshia Mcclelland [facility] N-TERMINAL PRO-BNP 2023-08-14 09:40:00 Keshia Mcclelland [facility] CBC WITH DIFF 2023-08-14 09:40:00 Keshia Mcclelland [facility] BASIC METABOLIC PANEL (NA, K, CL, CO2, GLUCOSE, BUN, CREATININE, CA) 2023-08-14 09:40:00 Keshia Mcclelland [facility] N-TERMINAL PRO-BNP 2023-08-14 09:40:00 Keshia Mcclelland [facility] US ABDOMEN LIMITED 2023-08-13 23:48:00 Rick [facility] US ABDOMEN LIMITED 2023-08-13 23:48:00 Rick R[facility] LIPASE 2023-08-13 15:09:00 Rick [facility] MAGNESIUM 2023-08-13 15:09:00 Rick Riche[facility] TROPONIN I 2023-08-13 15:09:00 Rick Richey [facility] HEPATIC FUNCTION PANEL ([id number]) (ALB,T.PRO,BILI T,BU/BC,ALT,AST,ALK PHOS) 2023-08-13 15:09:00 Rick Richey [facility] BASIC METABOLIC PANEL (NA, K, CL, CO2, GLUCOSE, BUN, CREATININE, CA) 2023-08-13 15:09:00 Rick [facility] N-TERMINAL PRO-BNP 2023-08-13 15:09:00 Rick R[facility] MAGNESIUM 2023-08-13 15:09:00 Rick [facility] N-TERMINAL PRO-BNP 2023-08-13 15:09:00 Rick Riche[facility] TROPONIN I 2023-08-13 15:09:00 Rick Riche[facility] LIPASE 2023-08-13 15:09:00 Rick Richey [facility] HEPATIC FUNCTION PANEL ([id number]) (ALB,T.PRO,BILI T,BU/BC,ALT,AST,ALK PHOS) 2023-08-13 15:09:00 Rick Richey [facility] BASIC METABOLIC PANEL (NA, K, CL, CO2, GLUCOSE, BUN, CREATININE, CA) 2023-08-13 15:09:00 Rick [facility] CBC WITH DIFF 2023-08-13 09:16:00 Rick Richey [facility] PROCALCITONIN 2023-08-13 09:16:00 Rick [facility] CBC WITH DIFF 2023-08-13 09:16:00 Rick R[facility] PROCALCITONIN 2023-08-13 09:16:00 Rick R[facility] HB ECG ROUTINE & RHYTHM STRIP 2023-08-13 01:18:13 Keshia Mcclelland [facility] HB ECG ROUTINE & RHYTHM STRIP 2023-08-13 01:18:13 Keshia Mcclelland [facility] TROPONIN I 2023-08-13 00:15:00 [facility]ON[facility] 2023-08-13 00:15:00 Stas Keshia [facility] BASIC METABOLIC PANEL (NA, K, CL, CO2, GLUCOSE, BUN, CREATININE, CA) 2023-08-12 19:56:00 Rick [facility] BASIC METABOLIC PANEL (NA, K, CL, CO2, GLUCOSE, BUN, CREATININE, CA) 2023-08-12 19:56:00 Rick R[facility] TRANSTHORACIC ECHO (TTE) LIMITED W/ DOPPLER AND COLOR 2023-08-12 19:35:00 Rick Richey [facility] TRANSTHORACIC ECHO (TTE) LIMITED W/ DOPPLER AND COLOR 2023-08-12 19:35:00 Rick R[facility]y [facility] CT CHEST PULMONARY ANGIOGRAM 2023-08-12 16:19:38 Pam [facility] CT CHEST PULMONARY ANGIOGRAM 2023-08-12 16:19:38 Pam [facility] XR CHEST 1 VW 2023-08-12 13:45:00 Pam [facility]ler [facility] XR CHEST 1 VW 2023-08-12 13:45:00 Pam [facility] MAGNESIUM 2023-08-12 13:25:00 Pam [facility]ler [facility] TROPONIN I 2023-08-12 13:25:00 Pam [facility]ler [facility] COMP. METABOLIC PANEL ([id number]) 2023-08-12 13:25:00 Pam [facility] LIPID PANEL ([id number])(TOTAL CHOLESTEROL, TRIGLYCERIDES, HDL) 2023-08-12 13:25:00 Rick [facility] CBC WITH DIFF 2023-08-12 13:25:00 Pam [facility] RAPID INFLUENZA A/B 2023-08-12 13:25:00 Pam [facility] N-TERMINAL PRO-BNP 2023-08-12 13:25:00 Pam [facility] COVID-19 (ID NOW RAPID TESTING) 2023-08-12 13:25:00 Pam [facility]ler [facility] LAB ONLY COVID INTERPRETATION 2023-08-12 13:25:00 Pam [facility] CBC WITH DIFF 2023-08-12 13:25:00 Pam [facility] COMP. METABOLIC PANEL ([id number]) 2023-08-12 13:25:00 Pam [facility] TROPONIN I 2023-08-12 13:25:00 Pam [facility] N-TERMINAL PRO-BNP 2023-08-12 13:25:00 Pam [facility] MAGNESIUM 2023-08-12 13:25:00 Pam [facility] COVID-19 (ID NOW RAPID TESTING) 2023-08-12 13:25:00 Pam [facility]ler [facility] RAPID INFLUENZA A/B 2023-08-12 13:25:00 Pam [facility]ler [facility] LAB ONLY COVID INTERPRETATION 2023-08-12 13:25:00 Pam [facility] LIPID PANEL ([id number])(TOTAL CHOLESTEROL, TRIGLYCERIDES, HDL) 2023-08-12 13:25:00 Rick [facility] HB ECG ROUTINE & RHYTHM STRIP 2023-08-12 13:18:07 Pam [facility]ler [facility] HB ECG ROUTINE & RHYTHM STRIP 2023-08-12 13:18:07 Pam [facility] CONSENT/REFUSAL FOR DIAGNOSIS AND TREATMENT 2023-08-12 13:17:30 Doctor Unassigned, [facility] CONSENT/REFUSAL FOR DIAGNOSIS AND TREATMENT 2023-08-12 13:17:30 Doctor Unassigned, [facility] HOSPITAL ADMISSION 2023-08-12 06:01:00 Doctor Unassigned, [facility] COMP. METABOLIC PANEL ([id number]) 2023-08-01 19:12:00 Astudillo, [facility] CBC WITH DIFF 2023-08-01 19:12:00 Astudillo, [facility] PROTHROMBIN TIME / INR 2023-08-01 19:12:00 Astudillo, [facility] N-TERMINAL PRO-BNP 2023-08-01 19:12:00 Astudillo, [facility] PROTHROMBIN TIME / INR 2023-08-01 19:12:00 Astudillo, [facility] CBC WITH DIFF 2023-08-01 19:12:00 Astudillo, [facility] COMP. METABOLIC PANEL ([id number]) 2023-08-01 19:12:00 Astudillo, [facility] N-TERMINAL PRO-BNP 2023-08-01 19:12:00 Astudillo, [facility] BASIC METABOLIC PANEL (NA, K, CL, CO2, GLUCOSE, BUN, CREATININE, CA) 2023-06-03 10:54:00 Haily Dinero [facility] PROTHROMBIN TIME / INR 2023-06-03 10:53:00 Haily Dinero [facility] EXTRA TUBE LAV 2023-06-03 10:53:00 Mike Guzman [facility] PHOSPHORUS 2023-06-02 14:03:00 Rodrigo Lange [facility] MAGNESIUM 2023-06-02 14:03:00 Rodrigo Lange [facility] BASIC METABOLIC PANEL (NA, K, CL, CO2, GLUCOSE, BUN, CREATININE, CA) 2023-06-02 14:03:00 Rodrigo Lange [facility] CBC WITH DIFF 2023-06-02 14:03:00 Rodrigo Lange [facility] PHOSPHORUS 2023-06-02 14:03:00 [place] Rodrigo [facility] MAGNESIUM 2023-06-02 14:03:00 [facility] (NA, K, CL, CO2, GLUCOSE, BUN, CREATININE, CA) 2023-06-02 14:03:00 [facility]FF 2023-06-02 14:03:00 [facility] / INR 2023-06-02 09:45:00 Ghotra, [facility] PROTHROMBIN TIME / INR 2023-06-02 09:45:00 Miladys Ghotra [facility] FL TIME OR (NON-REPORTABLE) 2023-06-01 19:24:00 Prince [facility]ter [facility] FL TIME OR (NON-REPORTABLE) 2023-06-01 19:24:00 [facility] AORTOGRAM 2023-06-01 17:45:00 [facility] AORTOGRAM 2023-06-01 17:45:00 Prince [facility] BASIC METABOLIC PANEL (NA, K, CL, CO2, GLUCOSE, BUN, CREATININE, CA) 2023-06-01 10:21:00 Ariana Reyes [facility] CBC WITH DIFF 2023-06-01 10:21:00 Ariana Reyes [facility] PROTHROMBIN TIME / INR 2023-06-01 10:21:00 Ariana Reyes [facility] BASIC METABOLIC PANEL (NA, K, CL, CO2, GLUCOSE, BUN, CREATININE, CA) 2023-06-01 10:21:00 Ariana Reyes [facility] CBC WITH DIFF 2023-06-01 10:21:00 Ariana Reyes [facility] PROTHROMBIN TIME / INR 2023-06-01 10:21:00 rAiana Reyes [facility] EKG-12 LEAD 2023-05-31 15:14:54 Phyllis Chery [facility] BASIC METABOLIC PANEL (NA, K, CL, CO2, GLUCOSE, BUN, CREATININE, CA) 2023-05-31 10:49:00 [facility] 2023-05-31 10:49:00 Ramona [facility] BASIC METABOLIC PANEL (NA, K, CL, CO2, GLUCOSE, BUN, CREATININE, CA) 2023-05-31 10:49:00 Ramona [facility] PROTHROMBIN TIME / INR 2023-05-31 10:49:00 [facility] BASIC METABOLIC PANEL (NA, K, CL, CO2, GLUCOSE, BUN, CREATININE, CA) 2023-05-30 09:33:00 [facility] PROTHROMBIN TIME / INR 2023-05-30 09:33:00 [facility] BASIC METABOLIC PANEL (NA, K, CL, CO2, GLUCOSE, BUN, CREATININE, CA) 2023-05-30 09:33:00 Stan [facility] PROTHROMBIN TIME / INR 2023-05-30 09:33:00 [facility] BASIC METABOLIC PANEL (NA, K, CL, CO2, GLUCOSE, BUN, CREATININE, CA) 2023-05-29 07:14:00 [facility] BASIC METABOLIC PANEL (NA, K, CL, CO2, GLUCOSE, BUN, CREATININE, CA) 2023-05-29 07:14:00 Stan [facility] PROTHROMBIN TIME / INR 2023-05-29 07:13:00 Phyllis Chery [facility] PROTHROMBIN TIME / INR 2023-05-29 07:13:00 Phyllis Chery [facility] RENAL ARTERY DUPLEX - BY VASCULAR LAB 2023-05-29 02:08:12 Ephraim Warren [facility] RENAL ARTERY DUPLEX - BY VASCULAR LAB 2023-05-29 02:08:12 Ephraim [facility] OSMOLALITY URINE 2023-05-28 17:52:00 [facility] SODIUM, URINE RANDOM 2023-05-28 17:52:00 [facility] OSMOLALITY URINE 2023-05-28 17:52:00 [facility] SODIUM, URINE RANDOM 2023-05-28 17:52:00 [facility] CBC WITH DIFF 2023-05-28 10:50:00 Ghotra, [facility] PROTHROMBIN TIME / INR 2023-05-28 10:50:00 Ghotra, [facility] CBC WITH DIFF 2023-05-28 10:50:00 Ghotra, [facility] PROTHROMBIN TIME / INR 2023-05-28 10:50:00 Ghotra, [facility] CBC WITH DIFF 2023-05-28 10:50:00 Ghotra, [facility] PROTHROMBIN TIME / INR 2023-05-28 10:50:00 Ghotra, [facility] BASIC METABOLIC PANEL (NA, K, CL, CO2, GLUCOSE, BUN, CREATININE, CA) 2023-05-28 05:58:00 [facility] BASIC METABOLIC PANEL (NA, K, CL, CO2, GLUCOSE, BUN, CREATININE, CA) 2023-05-28 05:58:00 Egedgar [facility] BASIC METABOLIC PANEL (NA, K, CL, CO2, GLUCOSE, BUN, CREATININE, CA) 2023-05-28 05:58:00 Becca [facility] ACTIVATED PARTIAL THRMPLAS OSVALDO 2023-05-27 14:48:00 Manjeet [facility] ACTIVATED PARTIAL THRMPLAS OSVALDO 2023-05-27 14:48:00 Manjeet Erickson [facility] ACTIVATED PARTIAL THRMPLAS OSVALDO 2023-05-27 14:48:00 Manjeet Erickson [facility] PROTHROMBIN TIME / INR 2023-05-27 10:57:00 Phyllis Chery [facility] PROTHROMBIN TIME / INR 2023-05-27 10:57:00 Phyllis Chery [facility] PROTHROMBIN TIME / INR 2023-05-27 10:57:00 Phyllis Chery [facility] BASIC METABOLIC PANEL (NA, K, CL, CO2, GLUCOSE, BUN, CREATININE, CA) 2023-05-27 04:45:00 Manjeet Erickson [facility] BASIC METABOLIC PANEL (NA, K, CL, CO2, GLUCOSE, BUN, CREATININE, CA) 2023-05-27 04:45:00 Manjeet Erickson [facility] BASIC METABOLIC PANEL (NA, K, CL, CO2, GLUCOSE, BUN, CREATININE, CA) 2023-05-27 04:45:00 Manjeet Erickson [facility] ACTIVATED PARTIAL THRMPLAS OSVALDO 2023-05-27 02:16:00 Manjeet Erickson [facility] ACTIVATED PARTIAL THRMPLAS OSVALDO 2023-05-27 02:16:00 Manjeet Erickson [facility] ACTIVATED PARTIAL THRMPLAS OSVALDO 2023-05-27 02:16:00 Manjeet Erickson [facility] ACTIVATED PARTIAL THRMPLAS OSVALDO 2023-05-26 19:52:00 Manjeet Erickson [facility] ACTIVATED PARTIAL THRMPLAS OSVALDO 2023-05-26 19:52:00 Manjeet Ericks[facility] ACTIVATED PARTIAL THRMPLAS OSVALDO 2023-05-26 19:52:00 Manjeet Ericks[facility] TROPONIN I 2023-05-26 12:37:00 Darren [facility] BASIC METABOLIC PANEL (NA, K, CL, CO2, GLUCOSE, BUN, CREATININE, CA) 2023-05-26 12:37:00 Darren [facility] MAGNESIUM 2023-05-26 12:37:00 Manjeet Erickson [facility] MAGNESIUM 2023-05-26 12:37:00 Manjeet Erickson [facility] TROPONIN I 2023-05-26 12:37:00 Darren [facility] BASIC METABOLIC PANEL (NA, K, CL, CO2, GLUCOSE, BUN, CREATININE, CA) 2023-05-26 12:37:00 Darren Cain [facility] MAGNESIUM 2023-05-26 12:37:00 Manjeet Erickson [facility] TROPONIN I 2023-05-26 12:37:00 Darren [facility] BASIC METABOLIC PANEL (NA, K, CL, CO2, GLUCOSE, BUN, CREATININE, CA) 2023-05-26 12:37:00 Darren Cain [facility] EKG-12 LEAD 2023-05-26 11:50:26 Doctor Unassigned, [facility] EKG-12 LEAD 2023-05-26 11:50:26 Doctor Unassigned, [facility] HB ECG ROUTINE & RHYTHM STRIP 2023-05-26 11:26:21 Payton Darren [facility] HB ECG ROUTINE & RHYTHM STRIP 2023-05-26 11:26:21 Judi Cainshua [facility] HEPATIC FUNCTION PANEL ([id number]) (ALB,T.PRO,BILI T,BU/BC,ALT,AST,ALK PHOS) 2023-05-26 07:50:00 Abbi Jensen [facility] CBC WITH DIFF 2023-05-26 07:50:00 Manjeet Erickson [facility] COMP. METABOLIC PANEL ([id number]) 2023-05-26 07:50:00 Manjeet Erickson [facility] PROTHROMBIN TIME / INR 2023-05-26 07:50:00 Phyllis Chery [facility] ACTIVATED PARTIAL THRMPLAS OSVALDO 2023-05-26 07:50:00 Manjeet Erickson [facility] HEPATIC FUNCTION PANEL ([id number]) (ALB,T.PRO,BILI T,BU/BC,ALT,AST,ALK PHOS) 2023-05-26 07:50:00 Abbi Jensen [facility] COMP. METABOLIC PANEL ([id number]) 2023-05-26 07:50:00 Manjeet Erickson [facility] CBC WITH DIFF 2023-05-26 07:50:00 Manjeet Erickson [facility] PROTHROMBIN TIME / INR 2023-05-26 07:50:00 Phyllis Chery [facility] ACTIVATED PARTIAL THRMPLAS OSVALDO 2023-05-26 07:50:00 Manjeet Erickson [facility] HEPATIC FUNCTION PANEL ([id number]) (ALB,T.PRO,BILI T,BU/BC,ALT,AST,ALK PHOS) 2023-05-26 07:50:00 Abbi Jensen [facility] COMP. METABOLIC PANEL ([id number]) 2023-05-26 07:50:00 Manjeet Erickson [facility] CBC WITH DIFF 2023-05-26 07:50:00 Manjeet Erickson [facility] PROTHROMBIN TIME / INR 2023-05-26 07:50:00 Phyllis Chery [facility] ACTIVATED PARTIAL THRMPLAS OSVALDO 2023-05-26 07:50:00 Manjeet Erickson [facility] CT ABDOMEN PELVIS W CONTRAST 2023-05-25 20:22:00 Manjeet Erickson [facility] CT ABDOMEN PELVIS W CONTRAST 2023-05-25 20:22:00 Manjeet Erickson [facility] CT ABDOMEN PELVIS W CONTRAST 2023-05-25 20:22:00 Manjeet Erickson [facility] PROTHROMBIN TIME / INR 2023-05-25 18:51:00 Phyllis Chery [facility] ACTIVATED PARTIAL THRMPLAS OSVALDO 2023-05-25 18:51:00 Manjeet Erickson [facility] EXTRA TUBE LT. BLUE 2023-05-25 18:51:00 Manjeet Erickson [facility] PROTHROMBIN TIME / INR 2023-05-25 18:51:00 Phyllis Chery [facility] ACTIVATED PARTIAL THRMPLAS OSVALDO 2023-05-25 18:51:00 Manjeet Erickson [facility] EXTRA TUBE LT. BLUE 2023-05-25 18:51:00 Manjeet Erickson [facility] PROTHROMBIN TIME / INR 2023-05-25 18:51:00 Phyllis Chery [facility] ACTIVATED PARTIAL THRMPLAS OSVALDO 2023-05-25 18:51:00 Manjeet Erickson [facility] EXTRA TUBE LT. BLUE 2023-05-25 18:51:00 Manjeet Erickson [facility] US ABDOMEN LIMITED 2023-05-25 18:42:34 Manjeet Erickson [facility] ABDOMEN LIMITED 2023-05-25 18:42:34 Manejet Erickson [facility] US ABDOMEN LIMITED 2023-05-25 18:42:34 Manjeet Erickson [facility] BASIC METABOLIC PANEL (NA, K, CL, CO2, GLUCOSE, BUN, CREATININE, CA) 2023-05-25 10:31:00 Manjeet Erickson [facility] CBC WITHOUT DIFF 2023-05-25 10:31:[address] [facility] BASIC METABOLIC PANEL (NA, K, CL, CO2, GLUCOSE, BUN, CREATININE, CA) 2023-05-25 10:31:00 Manjeet Eric[facility] CBC WITHOUT DIFF 2023-05-25 10:31:00 [facility] (NA, K, CL, CO2, GLUCOSE, BUN, CREATININE, CA) 2023-05-25 10:31:00 Manjeet [facility] CBC WITHOUT DIFF 2023-05-25 10:31:[address] [facility] ACTIVATED PARTIAL THRMPLAS OSVALDO 2023-05-25 10:16:00 Miri [facility] ACTIVATED PARTIAL THRMPLAS OSVALDO 2023-05-25 10:16:00 Miri [facility] ACTIVATED PARTIAL THRMPLAS OSVALDO 2023-05-25 10:16:00 Miri [facility] ACTIVATED PARTIAL THRMPLAS OSVALDO 2023-05-25 02:39:[address] [facility] PROTHROMBIN TIME / INR 2023-05-25 02:39:[address] [facility] PROTHROMBIN TIME / INR 2023-05-25 02:39:[address] [facility] ACTIVATED PARTIAL THRMPLAS OSVALDO 2023-05-25 02:39:[address] [facility] PROTHROMBIN TIME / INR 2023-05-25 02:39:00 Cruz [facility] ACTIVATED PARTIAL THRMPLAS OSVALDO 2023-05-25 02:39:[address] [facility] TRANSTHORACIC ECHO (TTE) COMPLETE 2023-05-24 18:21:39 Elliott [facility] TRANSTHORACIC ECHO (TTE) COMPLETE 2023-05-24 18:21:39 Elliott [facility] TRANSTHORACIC ECHO (TTE) COMPLETE 2023-05-24 18:21:39 Elliott [facility] ACTIVATED PARTIAL THRMPLAS OSVALDO 2023-05-24 17:34:[address] [facility] ACTIVATED PARTIAL THRMPLAS OSVALDO 2023-05-24 17:34:[address] [facility] ACTIVATED PARTIAL THRMPLAS OSVALDO 2023-05-24 17:34:[address] [facility] BASIC METABOLIC PANEL (NA, K, CL, CO2, GLUCOSE, BUN, CREATININE, CA) 2023-05-24 12:57:[address] [facility] TROPONIN I 2023-05-24 12:57:00 Manjeet [facility] TROPONIN I 2023-05-24 12:57:00 Manjeet [facility] BASIC METABOLIC PANEL (NA, K, CL, CO2, GLUCOSE, BUN, CREATININE, CA) 2023-05-24 12:57:[address] [facility] TROPONIN I 2023-05-24 12:57:00 Manjeet [facility] BASIC METABOLIC PANEL (NA, K, CL, CO2, GLUCOSE, BUN, CREATININE, CA) 2023-05-24 12:57:[address] [facility] XR CHEST 1 VW 2023-05-24 12:53:01 Elliott [facility] XR CHEST 1 VW 2023-05-24 12:53:01 [facility] 2023-05-24 12:53:01 Elliott [facility] EKG-12 LEAD 2023-05-24 12:15:04 Miri Phyllis [facility] EKG-12 LEAD 2023-05-24 12:15:04 Miri Phyllis [facility] CBC WITHOUT DIFF 2023-05-24 11:37:00 Ebomwonyi, [facility] N-TERMINAL PRO-BNP 2023-05-24 11:37:00 Ebomwonyi, [facility] CBC WITHOUT DIFF 2023-05-24 11:37:00 Ebomwonyi, [facility] N-TERMINAL PRO-BNP 2023-05-24 11:37:00 Ebomwswetai, [facility] CBC WITHOUT DIFF 2023-05-24 11:37:00 Ebomwonyi, [facility] N-TERMINAL PRO-BNP 2023-05-24 11:37:00 Ebomwlinsey, [facility] CT HEAD WO CONTRAST 2023-05-24 04:53:[address] [facility] CT HEAD WO CONTRAST 2023-05-24 04:53:[address] [facility] CT HEAD WO CONTRAST 2023-05-24 04:53:[address] [facility] EKG-12 LEAD 2023-05-24 04:50:16 Miri [facility] EKG-12 LEAD 2023-05-24 04:50:16 Miri [facility] EKG-12 LEAD 2023-05-24 04:50:16 Miri [facility] URINALYSIS 2023-05-24 03:47:[address] [facility] URINALYSIS 2023-05-24 03:47:[address] [facility] URINALYSIS 2023-05-24 03:47:[address] [facility] CBC WITH DIFF 2023-05-24 03:35:00 Arabella, [facility] COMP. METABOLIC PANEL ([id number]) 2023-05-24 03:35:00 Arabella, [facility] TROPONIN I 2023-05-24 03:35:00 Arabella, [facility] PROTHROMBIN TIME / INR 2023-05-24 03:35:00 Arabella, [facility] TROPONIN I 2023-05-24 03:35:00 Arabella, [facility] COMP. METABOLIC PANEL ([id number]) 2023-05-24 03:35:00 Arabella, [facility] CBC WITH DIFF 2023-05-24 03:35:00 Arabella, [facility] PROTHROMBIN TIME / INR 2023-05-24 03:35:00 Arabella, [facility] TROPONIN I 2023-05-24 03:35:00 Arabella, [facility] COMP. METABOLIC PANEL ([id number]) 2023-05-24 03:35:00 Arabella, [facility] CBC WITH DIFF 2023-05-24 03:35:00 Arabella, [facility] PROTHROMBIN TIME / INR 2023-05-24 03:35:00 Arabella, [facility] CRITICAL CARE 2023-05-24 01:40:[address] [facility] CRITICAL CARE 2023-05-24 01:40:00 Arabella, [facility] CRITICAL CARE 2023-05-24 01:40:00 Arabella, [facility] CONSENT/REFUSAL FOR DIAGNOSIS AND TREATMENT 2023-05-24 01:39:38 Doctor Unassigned, [facility] CONSENT/REFUSAL FOR DIAGNOSIS AND TREATMENT 2023-05-24 01:39:38 Doctor Unassigned, [facility] HOSPITAL ADMISSION 2023-05-23 05:01:00 Doctor Unassigned, [facility] HOSPITAL ADMISSION 2023-05-23 05:01:00 Doctor Unassigned, [facility] HOSPITAL ADMISSION 2023-05-23 05:01:00 Doctor Unassigned, [facility] PROTHROMBIN TIME / INR 2023-05-20 13:46:00 [facility] 2023-05-20 13:46:00 Fouzia [facility] BASIC METABOLIC PANEL (NA, K, CL, CO2, GLUCOSE, BUN, CREATININE, CA) 2023-05-20 10:40:00 Egedgar [facility] BASIC METABOLIC PANEL (NA, K, CL, CO2, GLUCOSE, BUN, CREATININE, CA) 2023-05-20 10:40:00 Becca [facility] URINALYSIS 2023-05-19 17:05:00 [facility] URINALYSIS 2023-05-19 17:05:00 [facility] OSMOLALITY URINE 2023-05-19 17:04:00 Egedgar [facility] SODIUM, URINE RANDOM 2023-05-19 17:04:00 Becca [facility] OSMOLALITY URINE 2023-05-19 17:04:00 Egedgar [facility] SODIUM, URINE RANDOM 2023-05-19 17:04:00 Becca [facility] CT ABDOMEN PELVIS WO CONTRAST 2023-05-19 14:46:00 [facility] CT ABDOMEN PELVIS WO CONTRAST 2023-05-19 14:46:00 [facility] BASIC METABOLIC PANEL (NA, K, CL, CO2, GLUCOSE, BUN, CREATININE, CA) 2023-05-19 13:58:00 [facility] CBC WITH DIFF 2023-05-19 13:58[facility]00 [facility] 2023-05-19 13:58:00 Fouzia [facility] CBC WITH DIFF 2023-05-19 13:58:00 Sharona Perez [facility] PROTHROMBIN TIME / INR 2023-05-19 13:58:00 Fouzia [facility] BASIC METABOLIC PANEL (NA, K, CL, CO2, GLUCOSE, BUN, CREATININE, CA) 2023-05-19 13:58:00 [facility] PHOSPHORUS 2023-05-19 09:06:00 Ana [facility] MAGNESIUM 2023-05-19 09:06:00 Ana [facility] TROPONIN I 2023-05-19 09:06:00 Ana [facility] BASIC METABOLIC PANEL (NA, K, CL, CO2, GLUCOSE, BUN, CREATININE, CA) 2023-05-19 09:06:00 Ana [facility] CBC WITH DIFF 2023-05-19 09:06:00 [facility] CBC WITH DIFF 2023-05-19 09:06:00 [facility] TROPONIN I 2023-05-19 09:06:00 Ana [facility] PHOSPHORUS 2023-05-19 09:06:00 Ana [facility] MAGNESIUM 2023-05-19 09:06:00 Ana [facility] BASIC METABOLIC PANEL (NA, K, CL, CO2, GLUCOSE, BUN, CREATININE, CA) 2023-05-19 09:06:00 Ana [facility] TROPONIN I 2023-05-18 22:55:00 [facility] THYROID STIMULATING HORMONE 2023-05-18 22:55:00 [facility] HEPATIC FUNCTION PANEL ([id number]) (ALB,T.PRO,BILI T,BU/BC,ALT,AST,ALK PHOS) 2023-05-18 22:55:00 [facility] BASIC METABOLIC PANEL (NA, K, CL, CO2, GLUCOSE, BUN, CREATININE, CA) 2023-05-18 22:55:00 [facility] CBC WITH DIFF 2023-05-18 22:55:00 [facility] CBC WITH DIFF 2023-05-18 22:55:00 [facility] BASIC METABOLIC PANEL (NA, K, CL, CO2, GLUCOSE, BUN, CREATININE, CA) 2023-05-18 22:55:00 [facility] TROPONIN I 2023-05-18 22:55:00 [facility] THYROID STIMULATING HORMONE 2023-05-18 22:55:00 [facility] HEPATIC FUNCTION PANEL ([id number]) (ALB,T.PRO,BILI T,BU/BC,ALT,AST,ALK PHOS) 2023-05-18 22:55:00 [facility] PROTHROMBIN TIME / INR 2023-05-18 17:05:00 Gurvinder [facility] PROTHROMBIN TIME / INR 2023-05-18 17:05:00 Gurvinder [facility] PROTHROMBIN TIME / INR 2023-05-18 17:05:00 Gurvinder [facility] PROTHROMBIN TIME / INR 2023-05-18 00:48:00 Pattie [facility] PROTHROMBIN TIME / INR 2023-05-18 00:48:00 Pattie [facility] PROTHROMBIN TIME / INR 2023-05-18 00:48:00 Pattie [facility] FREE T4 2023-05-17 23:30:00 Rayshawn [facility] FREE T4 2023-05-17 23:30:00 Rayshawn [facility] FREE T4 2023-05-17 23:30:00 Rayshawn [facility] CARDIAC CATHETERIZATION 2023-05-17 19:36:24 Cory [facility] CARDIAC CATHETERIZATION 2023-05-17 19:36:24 Cory [facility] ELECTROPHYSIOLOGY PROCEDURE 2023-05-17 19:36:24 Cory [facility] CARDIAC CATHETERIZATION 2023-05-17 19:36:24 Cory, [facility] CARDIAC CATHETERIZATION 2023-05-17 19:36:24 Santiago [facility] ELECTROPHYSIOLOGY PROCEDURE 2023-05-17 19:36:24 Santiago Vill[facility] ELECTROPHYSIOLOGY PROCEDURE 2023-05-17 19:36:24 Santiago [facility] CARDIAC CATHETERIZATION 2023-05-17 19:36:24 Santiago Villatoro [facility] CARDIAC CATHETERIZATION 2023-05-17 19:36:24 Santiago Villator[facility] ARTERIAL LINE 2023-05-17 18:16:00 Toby [facility]leg[facility] TRANSESOPHAGEAL ECHO (HEATHER) COMPLETE W/ DOPPLER AND COLOR 2023-05-17 18:07:21 Pattie [facility] TRANSESOPHAGEAL ECHO (HEATHER) COMPLETE W/ DOPPLER AND COLOR 2023-05-17 18:07:21 Pattie [facility] INTUBATION 2023-05-17 18:07:00 Toby [facility] HB ABO GROUPING 2023-05-17 14:19:00 Harriett Kallie [facility] HB ABO GROUPING 2023-05-17 14:19:00 Harriett Kallie [facility] HB ABO GROUPING 2023-05-17 14:19:00 Harriett [facility] ASSIGNMENT OF BENEFITS 2023-05-17 13:24:33 Doctor Unassigned, [facility] ASSIGNMENT OF BENEFITS 2023-05-17 13:24:33 Doctor Unassigned, [facility] CONSENT/REFUSAL FOR DIAGNOSIS AND TREATMENT 2023-05-17 13:24:12 Doctor Unassigned, [facility] CONSENT/REFUSAL FOR DIAGNOSIS AND TREATMENT 2023-05-17 13:24:12 Doctor Unassigned, [facility] HOSPITAL ADMISSION 2023-05-17 05:01:00 Doctor Unassigned, [facility] CBC WITH DIFF 2023-05-13 16:54:00 Cory, [facility] BASIC METABOLIC PANEL (NA, K, CL, CO2, GLUCOSE, BUN, CREATININE, CA) 2023-05-13 16:54:00 Cory [facility] PROTHROMBIN TIME / INR 2023-05-13 16:54:00 Cory [facility] MAGNESIUM 2023-05-13 16:54:00 Cory [facility] XR CHEST 1 VW 2023-05-06 01:16:56 Singer [facility] LIPASE 2023-05-06 01:03:00 Singer [facility] MAGNESIUM 2023-05-06 01:03:00 Singer [facility] TROPONIN I 2023-05-06 01:03:00 Singer [facility] COMP. METABOLIC PANEL ([id number]) 2023-05-06 01:03:00 Singer [facility] CBC WITH DIFF 2023-05-06 01:03:00 Singer [facility] N-TERMINAL PRO-BNP 2023-05-06 01:03:00 Singer [facility] CBC WITH DIFF 2023-05-06 01:03:00 Singer [facility] COMP. METABOLIC PANEL ([id number]) 2023-05-06 01:03:00 Singer [facility] LIPASE 2023-05-06 01:03:00 Singer [facility] MAGNESIUM 2023-05-06 01:03:00 Singer [facility] N-TERMINAL PRO-BNP 2023-05-06 01:03:00 Singer [facility] TROPONIN I 2023-05-06 01:03:00 Singer [facility] HB ECG ROUTINE & RHYTHM STRIP 2023-05-06 00:49:05 Singer [facility] NOTICE OF PRIVACY PRACTICES 2023-05-06 00:33:14 Doctor Unassigned, [facility] NOTICE OF PRIVACY PRACTICES 2023-05-06 00:33:14 Doctor Unassigned, [facility] CONSENT/REFUSAL FOR DIAGNOSIS AND TREATMENT 2023-05-06 00:32:50 Doctor Unassigned, [facility] CONSENT/REFUSAL FOR DIAGNOSIS AND TREATMENT 2023-05-06 00:32:50 Doctor Unassigned, [facility] HB ECG ROUTINE & RHYTHM STRIP 2023-05-05 14:33:01 Santiago Vill[facility] HB ECG ROUTINE & RHYTHM STRIP 2023-05-05 14:33:01 Santiago Villatoro [facility] EMERGENCY SERVICES AGREEMENTS AND AUTHORIZATIONS 2023-05-05 05:01:00 Doctor Unassigned, [facility] OP CORRESPONDENCE 2023-05-04 05:01:00 Doctor Unassigned, [facility] OP CORRESPONDENCE 2023-05-04 05:01:00 Doctor Unassigned, [facility] PROTHROMBIN TIME / INR 2023-04-28 15:51:00 Andrew Astudillo [facility] PROTHROMBIN TIME / INR 2023-04-22 13:23:00 Andrew Astudillo. [facility] PROTHROMBIN TIME / INR 2023-04-19 16:49:00 [facility] PROTHROMBIN TIME / INR 2023-04-19 16:49:00 Andrew Astudillo.HJordi [facility] URINE DRUG (LCMSMS) - COMPREHENSIVE DRUG PANEL 2023-04-15 16:10:00 Britni Tabares [facility] PROTHROMBIN TIME / INR 2023-04-15 15:56:00 Andrew Astudillo [facility] MAGNESIUM 2023-04-08 08:15:00 Сергей Hi [facility] COMP. METABOLIC PANEL ([id number]) 2023-04-08 08:15:00 Сергей [facility] CBC WITH DIFF 2023-04-08 08:15:00 Сергей Hi [facility] PROTHROMBIN TIME / INR 2023-04-08 08:15:00 Monalisa Jain [facility] N-TERMINAL PRO-BNP 2023-04-08 08:15:00 Sussy, [facility] PROTHROMBIN TIME / INR 2023-04-08 08:15:00 Monalisa Jain [facility] CBC WITH DIFF 2023-04-08 08:15:[address] [facility] MAGNESIUM 2023-04-08 08:15:[address] [facility] N-TERMINAL PRO-BNP 2023-04-08 08:15:[address] [facility] COMP. METABOLIC PANEL ([id number]) 2023-04-08 08:15:00 Ovyuridia, [facility] URINALYSIS 2023-04-07 17:22:[address] [facility] URINALYSIS 2023-04-07 17:22:[address] [facility] URINE CULTURE 2023-04-07 17:22:[address] [facility] EKG-12 LEAD 2023-04-07 13:19:11 Doctor Unassigned, [facility] CT LUMBAR SPINE WO CONTRAST 2023-04-07 02:47:00 Singer [facility] CT LUMBAR SPINE WO CONTRAST 2023-04-07 02:47:00 Singer [facility] XR CHEST 1 VW 2023-04-07 02:30:00 Singer [facility] XR CHEST 1 VW 2023-04-07 02:30:00 Singer [facility] LIPASE 2023-04-07 02:11:00 Singer [facility] MAGNESIUM 2023-04-07 02:11:00 Singer [facility] TROPONIN I 2023-04-07 02:11:00 Singer [facility] COMP. METABOLIC PANEL ([id number]) 2023-04-07 02:11:00 Singer [facility] CBC WITHOUT DIFF 2023-04-07 02:11:00 Singer [facility] PROTHROMBIN TIME / INR 2023-04-07 02:11:00 Singer [facility] N-TERMINAL PRO-BNP 2023-04-07 02:11:00 Singer [facility] CBC WITHOUT DIFF 2023-04-07 02:11:00 Singer [facility] COMP. METABOLIC PANEL ([id number]) 2023-04-07 02:11:00 Singer [facility] LIPASE 2023-04-07 02:11:00 Singer [facility] MAGNESIUM 2023-04-07 02:11:00 Singer [facility] N-TERMINAL PRO-BNP 2023-04-07 02:11:00 Singer [facility] PROTHROMBIN TIME / INR 2023-04-07 02:11:00 Singer [facility] TROPONIN I 2023-04-07 02:11:00 Singer [facility] HB ECG ROUTINE & RHYTHM STRIP 2023-04-07 02:01:24 Singer [facility] HB ECG ROUTINE & RHYTHM STRIP 2023-04-07 02:01:24 Singer [facility] CONSENT/REFUSAL FOR DIAGNOSIS AND TREATMENT 2023-04-07 01:55:54 Doctor Unassigned, [facility] CONSENT/REFUSAL FOR DIAGNOSIS AND TREATMENT 2023-04-07 01:55:54 Doctor Unassigned, [facility] CRITICAL CARE 2023-04-07 01:54:00 Singer [facility] CRITICAL CARE 2023-04-07 01:54:00 Singer [facility] HOSPITAL ADMISSION 2023-04-06 05:01:00 Doctor Unassigned, [facility] PROTHROMBIN TIME / INR 2023-04-04 13:07:00 Andrew Astudillo [facility] CONSENT/REFUSAL FOR DIAGNOSIS AND TREATMENT 2023-04-04 13:00:25 Doctor Unassigned, [facility] ASSIGNMENT OF BENEFITS 2023-04-04 13:00:09 Doctor Unassigned, [facility] CT HEAD WO CONTRAST 2023-04-01 18:37:00 Oly [facility]ccle[facility] CT HEAD WO CONTRAST 2023-04-01 18:37:00 Oly [facility] CBC WITH DIFF 2023-04-01 18:19:00 Oly [facility] PROTHROMBIN TIME / INR 2023-04-01 18:19:00 Oly [facility] CBC WITH DIFF 2023-04-01 18:19:00 Oly [facility] PROTHROMBIN TIME / INR 2023-04-01 18:19:00 Oly [facility] CONSENT/REFUSAL FOR DIAGNOSIS AND TREATMENT 2023-04-01 17:56:25 Doctor Unassigned, [facility] CONSENT/REFUSAL FOR DIAGNOSIS AND TREATMENT 2023-04-01 17:56:25 Doctor Unassigned, [facility] PROTHROMBIN TIME / INR 2023-04-01 15:29:00 Andrew Astudillo [facility] VITAMIN D, 25-OH 2023-04-01 15:29:00 Tim [facility] INTACT PTH CALCIUM GROUP 2023-04-01 15:29:00 Tim [facility] VITAMIN B12, LEVEL 2023-04-01 15:29:00 Tim [facility] EMERGENCY SERVICES AGREEMENTS AND AUTHORIZATIONS 2023-04-01 05:01:00 Doctor Unassigned, [facility] AGREEMENTS AUTHORIZATIONS AND IRREVOCABLE ASSIGNMENTS (FORM 2001) 2023-04-01 05:01:00 Doctor Unassigned, [facility] MR LUMBAR SPINE WO CONTRAST 2023-03-26 14:38:20 Britni Tabares [facility] MR LUMBAR SPINE WO CONTRAST 2023-03-26 14:38:20 Britni Tabares [facility] PATIENT QUESTIONNAIRE 2023-03-26 05:01:00 Doctor Unassigned, [facility] CONSENT/REFUSAL FOR DIAGNOSIS AND TREATMENT 2023-03-24 16:46:38 Doctor Unassigned, [facility] CONSENT/REFUSAL FOR DIAGNOSIS AND TREATMENT 2023-03-24 16:46:38 Doctor Unassigned, [facility] EMERGENCY SERVICES AGREEMENTS AND AUTHORIZATIONS 2023-03-24 05:01:00 Doctor Unassigned, [facility] XR LUMBAR SPINE 5 VW 2023-03-22 17:41:00 Britni Tabares [facility] PROTHROMBIN TIME / INR 2023-03-22 16:19:00 Andrew Astudillo [facility] CT ABDOMEN PELVIS WO CONTRAST 2023-03-18 15:17:03 Syed [facility] CT ABDOMEN PELVIS WO CONTRAST 2023-03-18 15:17:03 Syed [facility] COMP. METABOLIC PANEL ([id number]) 2023-03-18 15:06:00 Syed [facility] CBC WITH DIFF 2023-03-18 15:06:00 Syed [facility] CBC WITH DIFF 2023-03-18 15:06:00 Syed [facility] COMP. METABOLIC PANEL ([id number]) 2023-03-18 15:06:00 Syed [facility] CONSENT/REFUSAL FOR DIAGNOSIS AND TREATMENT 2023-03-18 13:57:41 Doctor Unassigned, [facility] CONSENT/REFUSAL FOR DIAGNOSIS AND TREATMENT 2023-03-18 13:57:41 Doctor Unassigned, [facility] URINE CULTURE 2023-03-18 13:38:00 Britni Tabares [facility] URINALYSIS 2023-03-18 13:38:00 Britni Tabares [facility] EMERGENCY SERVICES AGREEMENTS AND AUTHORIZATIONS 2023-03-18 05:01:00 Doctor Unassigned, [facility] URINALYSIS 2023-03-17 19:56:00 Andrew Astudillo [facility] HB ECG ROUTINE & RHYTHM STRIP 2023-03-17 18:50:17 Andrew Astudillo [facility] HB ECG ROUTINE & RHYTHM STRIP 2023-03-17 18:50:17 Andrew Astudillo [facility] CBC WITH DIFF 2023-03-15 21:05:00 Tabares, [facility] FREE T4 2023-03-15 21:05:00 Rayshawn [facility] FREE T3 2023-03-15 21:05:00 Rayshawn [facility] T3 UPTAKE 2023-03-15 21:05:00 Rayshawn [facility] THYROID STIMULATING HORMONE 2023-03-15 21:05:00 Tabares [facility] COMP. METABOLIC PANEL ([id number]) 2023-03-15 21:05:00 Rayshawn [facility] PROTHROMBIN TIME / INR 2023-03-15 21:05:00 Marlton [facility] N-TERMINAL PRO-BNP 2023-03-15 21:05:00 Rayshawn [facility] MAGNESIUM 2023-03-15 21:05:00 Rayshawn [facility] XR KNEE 3 VW LEFT 2023-03-07 18:54:58 Stella Leavitt [facility] PROTHROMBIN TIME / INR 2023-02-12 11:05:00 Monalisa Jain [facility] ACTIVATED PARTIAL THRMPLAS OSVALDO 2023-02-12 11:05:00 [facility] PROTHROMBIN TIME / INR 2023-02-12 11:05:00 Monalisa Jain [facility] ACTIVATED PARTIAL THRMPLAS OSVALDO 2023-02-12 11:05:00 [facility] ACTIVATED PARTIAL THRMPLAS OSVALDO 2023-02-11 22:39:00 Ghazala Zarate [facility] ACTIVATED PARTIAL THRMPLAS OSVALDO 2023-02-11 22:39:00 Ghazala Zarate [facility] PROTHROMBIN TIME / INR 2023-02-11 16:28:00 Monalisa Jain [facility] ACTIVATED PARTIAL THRMPLAS OSVALDO 2023-02-11 16:28:00 Ghazala Zarate [facility] PROTHROMBIN TIME / INR 2023-02-11 16:28:00 Monalisa Jain [facility] ACTIVATED PARTIAL THRMPLAS OSVALDO 2023-02-11 16:28:00 Ghazala Zarate [facility] CARDIOVERSION EXTERNAL 2023-02-11 13:10:00 Roscoe [facility] CARDIOVERSION EXTERNAL 2023-02-11 13:10:00 Roscoe [facility] TRANSESOPHAGEAL ECHO (HEATHER) COMPLETE W/ DOPPLER AND COLOR 2023-02-11 12:50:00 Roscoe [facility] TRANSESOPHAGEAL ECHO (HEATHER) COMPLETE W/ DOPPLER AND COLOR 2023-02-11 12:50:00 [facility] (NA, K, CL, CO2, GLUCOSE, BUN, CREATININE, CA) 2023-02-11 07:33:00 [facility] ACTIVATED PARTIAL THRMPLAS OSVALDO 2023-02-11 07:33:00 [facility] BASIC METABOLIC PANEL (NA, K, CL, CO2, GLUCOSE, BUN, CREATININE, CA) 2023-02-11 07:33:00 [facility] ACTIVATED PARTIAL THRMPLAS OSVALDO 2023-02-11 07:33:00 [facility] ACTIVATED PARTIAL THRMPLAS OSVALDO 2023-02-10 18:01:00 [facility] ACTIVATED PARTIAL THRMPLAS OSVALDO 2023-02-10 18:01:00 [facility] BASIC METABOLIC PANEL (NA, K, CL, CO2, GLUCOSE, BUN, CREATININE, CA) 2023-02-10 09:56:00 [facility] CBC WITH DIFF 2023-02-10 09:56:00 [facility] MAGNESIUM 2023-02-10 09:56:00 [facility] PROTHROMBIN TIME / INR 2023-02-10 09:56:00 [facility]23-02-10 09:56:00 [facility] BASIC METABOLIC PANEL (NA, K, CL, CO2, GLUCOSE, BUN, CREATININE, CA) 2023-02-10 09:56:00 [facility] CBC WITH DIFF 2023-02-10 09:56:00 [facility] PROTHROMBIN TIME / INR 2023-02-10 09:56:00 [place], [facility] ACTIVATED PARTIAL THRMPLAS OSVALDO 2023-02-10 03:02:00 [facility] ACTIVATED PARTIAL THRMPLAS OSVALDO 2023-02-10 03:02:00 [facility] POCT GLUCOSE (AUTOMATED) 2023-02-09 21:01:00 [facility] POCT GLUCOSE (AUTOMATED) 2023-02-09 21:01:00 [facility] ACTIVATED PARTIAL THRMPLAS OSVALDO 2023-02-09 14:53:00 [facility] ACTIVATED PARTIAL THRMPLAS OSVALDO 2023-02-09 14:53:00 [facility] CRITICAL CARE 2023-02-09 08:33:50 Oly [facility] CRITICAL CARE 2023-02-09 08:33:50 Stas [facility] PROTHROMBIN TIME / INR 2023-02-09 06:05:00 Monalisa Jain [facility] COMP. METABOLIC PANEL ([id number]) 2023-02-09 06:05:00 [facility] MAGNESIUM 2023-02-09 06:05:[address] [facility] PHOSPHORUS 2023-02-09 06:05:[address] [facility] N-TERMINAL PRO-BNP 2023-02-09 06:05:[address] [facility] ACTIVATED PARTIAL THRMPLAS OSVALDO 2023-02-09 06:05:00 [facility] PHOSPHORUS 2023-02-09 06:05:00 [facility] MAGNESIUM 2023-02-09 06:05:00 Sussy Wilson [facility] COMP. METABOLIC PANEL ([id number]) 2023-02-09 06:05:00 [facility] INR 2023-02-09 06:05:00 Monalisa [facility]ain [facility] ACTIVATED PARTIAL THRMPLAS OSVALDO 2023-02-09 06:05:00 [facility] N-TERMINAL PRO-BNP 2023-02-09 06:05:00 Сергей Hi [facility] MRSA / MSSA SCREEN BY PCR, NARES 2023-02-08 20:57:00 [facility] ACTIVATED PARTIAL THRMPLAS OSVALDO 2023-02-08 20:57:00 [facility] ACTIVATED PARTIAL THRMPLAS OSVALDO 2023-02-08 20:57:00 [facility] MRSA / MSSA SCREEN BY PCR, NARES 2023-02-08 20:57:00 [facility] EKG-12 LEAD 2023-02-08 12:06:35 [facility] 2023-02-08 12:06:35 Stas [facility] XR CHEST 1 VW 2023-02-08 12:04:17 Stas [facility] XR CHEST 1 VW 2023-02-08 12:04:17 Stas [facility] CBC WITH DIFF 2023-02-08 11:36:00 [facility] ACTIVATED PARTIAL THRMPLAS OSVALDO 2023-02-08 11:36:00 Stas [facility] PROTHROMBIN TIME / INR 2023-02-08 11:36:00 Stas [facility] COMP. METABOLIC PANEL ([id number]) 2023-02-08 11:36:00 Stas [facility] TROPONIN I 2023-02-08 11:36:00 Stas [facility] N-TERMINAL PRO-BNP 2023-02-08 11:36:00 [facility] THYROID STIMULATING HORMONE 2023-02-08 11:36:00 [facility] FREE T4 2023-02-08 11:36:00 [facility] FREE T3 2023-02-08 11:36:00 [facility] TROPONIN I 2023-02-08 11:36:00 [facility] T4 2023-02-08 11:36:00 [facility] THYROID STIMULATING HORMONE 2023-02-08 11:36:00 [facility] COMP. METABOLIC PANEL ([id number]) 2023-02-08 11:36:00 Oly [facility] CBC WITH DIFF 2023-02-08 11:36:00 Oly [facility]cc[facility]and [facility] PROTHROMBIN TIME / INR 2023-02-08 11:36:00 [facility] ACTIVATED PARTIAL THRMPLAS OSVALDO 2023-02-08 11:36:00 [facility] N-TERMINAL PRO-BNP 2023-02-08 11:36:00 [facility] FREE T3 2023-02-08 11:36:00 [facility] HB ECG ROUTINE & RHYTHM STRIP 2023-02-08 11:25:02 [facility] HB ECG ROUTINE & RHYTHM STRIP 2023-02-08 11:25:02 Stas [facility] CONSENT/REFUSAL FOR DIAGNOSIS AND TREATMENT 2023-02-08 11:10:41 Doctor Unassigned, [place] [facility] CONSENT/REFUSAL FOR DIAGNOSIS AND TREATMENT 2023-02-08 11:10:41 Doctor Unassigned, [place] [facility] EKG (SCANNED DOCUMENTS) 2023-02-08 05:01:00 Doctor Unassigned, [place] [facility] EKG (SCANNED DOCUMENTS) 2023-02-08 05:01:00 Doctor Unassigned, [place] [facility] PROTHROMBIN TIME / INR 2023-02-07 14:38:00 Andrew Astudillo.HJordi [facility] PROTHROMBIN TIME / INR 2023-02-02 18:37:00 [facility] COMP. METABOLIC PANEL ([id number]) 2023-01-24 15:57:00 Britni Tabares [facility] PROTHROMBIN TIME / INR 2023-01-24 15:57:00 Andrew Astudillo [facility] MAGNESIUM 2023-01-18 09:23:00 Ghazala Zarate [facility] BASIC METABOLIC PANEL (NA, K, CL, CO2, GLUCOSE, BUN, CREATININE, CA) 2023-01-18 09:23:00 Ghazala Zarate [facility] CBC WITH DIFF 2023-01-18 09:23:00 [facility] N-TERMINAL PRO-BNP 2023-01-18 09:23:00 Roscoe [facility] CBC WITH DIFF 2023-01-18 09:23:00 [facility] BASIC METABOLIC PANEL (NA, K, CL, CO2, GLUCOSE, BUN, CREATININE, CA) 2023-01-18 09:23:00 [facility] MAGNESIUM 2023-01-18 09:23:00 [facility] N-TERMINAL PRO-BNP 2023-01-18 09:23:00 Roscoe [facility] TRANSTHORACIC ECHO (TTE) COMPLETE 2023-01-17 15:05:00 Roscoe [facility] TRANSTHORACIC ECHO (TTE) COMPLETE 2023-01-17 15:05:00 Roscoe [facility] BASIC METABOLIC PANEL (NA, K, CL, CO2, GLUCOSE, BUN, CREATININE, CA) 2023-01-17 09:51:00 Poncho [facility] CBC WITH DIFF 2023-01-17 09:51:00 Edionhossein [facility] N-TERMINAL PRO-BNP 2023-01-17 09:51:00 Poncho [facility] CBC WITH DIFF 2023-01-17 09:51:00 Edionhossein, [facility] N-TERMINAL PRO-BNP 2023-01-17 09:51:00 Alexionhossein [facility] BASIC METABOLIC PANEL (NA, K, CL, CO2, GLUCOSE, BUN, CREATININE, CA) 2023-01-17 09:51:00 Poncho [facility] MRSA / MSSA SCREEN BY PCRTANVI 2023-01-16 23:25:00 [facility] MRSA / MSSA SCREEN BY PCRTANVI 2023-01-16 23:25:00 [facility] URINALYSIS 2023-01-16 20:48:00 Garcia Hansen [facility] URINALYSIS 2023-01-16 20:48:00 Garcia [facility] XR CHEST 1 VW 2023-01-16 20:11:27 Garcia Hansen [facility] XR CHEST 1 VW 2023-01-16 20:11:27 Garcia Hansen [facility] HB ECG ROUTINE & RHYTHM STRIP 2023-01-16 19:48:32 Garcia Hansen [facility] HB ECG ROUTINE & RHYTHM STRIP 2023-01-16 19:48:32 Garcia Hansen [facility] LIPASE 2023-01-16 19:48:00 Garcia Hansen [facility] TROPONIN I 2023-01-16 19:48:00 Garcia Hansen [facility] FREE T4 2023-01-16 19:48:00 Garcia Hansen [facility] THYROID STIMULATING HORMONE 2023-01-16 19:48:00 Garcia Hansen [facility] COMP. METABOLIC PANEL ([id number]) 2023-01-16 19:48:00 Garica [facility] CBC WITH DIFF 2023-01-16 19:48:00 Garcia Hansen [facility] CBC WITH DIFF 2023-01-16 19:48:00 Garcia Hansen [facility] COMP. METABOLIC PANEL ([id number]) 2023-01-16 19:48:00 Garcia Hansen [facility] LIPASE 2023-01-16 19:48:00 Garcia Hansen [facility] TROPONIN I 2023-01-16 19:48:00 Garcia Hansen [facility] THYROID STIMULATING HORMONE 2023-01-16 19:48:00 Garcia Hansen [facility] FREE T4 2023-01-16 19:48:00 Garcia Hansen [facility] EKG-12 LEAD 2023-01-16 19:40:39 Doctor Unassigned, [facility] EKG-12 LEAD 2023-01-16 19:40:39 Doctor Unassigned, [facility] CONSENT/REFUSAL FOR DIAGNOSIS AND TREATMENT 2023-01-16 19:32:07 Doctor Unassigned, [facility] CONSENT/REFUSAL FOR DIAGNOSIS AND TREATMENT 2023-01-16 19:32:07 Doctor Unassigned, [facility] HOSPITAL ADMISSION 2023-01-16 05:01:00 Doctor Unassigned, [facility] XR KNEE 3 VW LEFT 2023-01-14 20:31:00 Britni Tabares [facility] COMP. METABOLIC PANEL ([id number]) 2023-01-14 19:25:00 Britni Tabares [facility] FREE T4 2023-01-14 19:25:00 Britni Tabares [facility] THYROID STIMULATING HORMONE 2023-01-14 19:25[facility]00 [facility]23-01-14 19:25:00 Britni Tabares [facility] ASSIGNMENT OF BENEFITS 2023-01-14 18:38:11 Doctor Unassigned, [facility] ASSIGNMENT OF BENEFITS 2023-01-14 18:38:11 Doctor Unassigned, [facility] EKG-12 LEAD 2022-10-26 23:58:15 Syed [facility] ABDOMEN PELVIS WO CONTRAST 2022-10-26 22:01:00 Syed [facility] MAGNESIUM 2022-10-26 21:40:00 Syed [facility] TROPONIN I 2022-10-26 21:40:00 Syed [facility] COMP. METABOLIC PANEL ([id number]) 2022-10-26 21:40:00 Syed [facility] CBC WITH DIFF 2022-10-26 21:40:00 Syed [facility] URINALYSIS 2022-10-26 21:40:00 Syed [facility] CONSENT/REFUSAL FOR DIAGNOSIS AND TREATMENT 2022-10-26 21:05:57 Doctor Unassigned, [place] [facility] PATIENT FINANCIAL POLICY 2022-10-26 20:45:00 Doctor Unassigned, [facility] ADV BENEFICIARY NOTICE OF NONCOVERAGE (ABN) 2022-09-09 06:01:00 Doctor Unassigned, [facility] URINALYSIS 2022-08-27 04:38:00 Gary Franco [facility] CONSENT/REFUSAL FOR DIAGNOSIS AND TREATMENT 2022-08-27 04:11:56 Doctor Unassigned, [facility] XR KNEE 3 VW RIGHT 2022-04-02 14:54:25 Heather Angelo [facility] CONSENT/REFUSAL FOR DIAGNOSIS AND TREATMENT 2022-04-02 14:13:41 Doctor Unassigned, [facility] Plan of Care Planned Activity Planned Date Details Comments Source Encounters Start Date/Time End Date/Time Encounter Type Admission Type Attending Clinicians Care Facility Care Department Encounter ID Source 2021-06-15 01:28:47 Emergency [facility] [id number] [facility] 2021-06-14 14:14:30 Emergency [facility] [id number] [facility] 2021-06-12 19:21:18 Emergency [facility] [id number] [facility] 2023-08-29 00:20:00 2023-09-16 10:05:00 Inpatient [facility] [id number] [facility] 2023-08-29 00:20:00 2023-09-16 10:05:00 Hospital Encounter Syed Hatfield Atul Baba, Mohammad J [facility] 1.2.840.114 350.1.13.10 4.2.7.2.686 [id number] [facility] 2023-09-07 10:40:00 2023-09-07 10:40:00 Outpatient R OBI-SANTANA , JUNAID OBI-SANTANA JUNAID [facility] [id number] [facility] 2023-09-05 00:00:00 2023-09-05 00:00:00 Patient Secure Msg Doctor Unassigned, [place] 1.2.840.1 58268.1.1 3.104.2.7 .3.083241 .8 [id number] [facility] 2023-09-01 14:20:00 2023-09-01 14:20:00 Outpatient R CLAIRE VILLATORO CHOCKALINGA M [facility] [id number] [facility] 2023-08-29 00:00:00 2023-08-29 00:00:00 Travel 1.2.840.1 39521.1.1 3.104.2.7 .3.992457 .8 1.2.840.114 350.1.13.10 4.2.7.3.698 084.8 [id number] [facility] 2023-08-24 00:00:00 2023-08-24 00:00:00 Telephone Cory Claire cordova 1.2.840.1 37567.1.1 3.104.2.7 .3.606213 .8 [id number] [facility] 2023-08-22 11:20:00 2023-08-22 11:57:01 Outpatient R JUNAID VILLAR [facility]ZOMA [facility] [id number] [facility] 2023-08-22 11:20:00 2023-08-22 11:57:01 Office Visit Junaid Villar 1.2.840.1 35628.1.1 3.104.2.7 .3.200609 .8 [id number] [facility] 2023-08-22 00:00:00 2023-08-22 00:00:00 Telephone Claire Villatoro 1.2.840.1 92946.1.1 3.104.2.7 .3.836361 .8 [id number] [facility] 2023-08-22 00:00:00 2023-08-22 00:00:00 Travel 1.2.840.1 70275.1.1 3.104.2.7 .3.115625 .8 1.2.840.114 350.1.13.10 4.2.7.3.698 084.8 [id number] [facility] 2023-08-17 00:00:00 2023-08-17 00:00:00 Transition of Care Jennifer Noland 1.2.840.1 52431.1.1 3.104.2.7 .3.014078 .8 [id number] [facility] 2023-08-12 07:15:00 2023-08-14 13:30:00 Inpatient X СЕРГЕЙ HI [facility] MINDY [id number] [facility] 2023-08-12 07:15:00 2023-08-14 13:30:00 Hospital Encounter Pam Adler Mohammad A. Oville, Jelani 1.2.840.1 15056.1.1 3.104.2.7 .3.875531 .8 [id number] [facility] 2023-08-12 00:00:00 2023-08-12 00:00:00 Travel 1.2.840.1 92917.1.1 3.104.2.7 .3.734914 .8 1.2.840.114 350.1.13.10 4.2.7.3.698 084.8 [id number] [facility] 2023-08-11 09:20:00 2023-08-11 09:42:16 Outpatient R CLAIRE VILLATORO CHOCKALINGA M [facility] [id number] [facility] 2023-08-11 09:20:00 2023-08-11 09:42:16 Office Visit Claire Villatoro 1.2.840.1 92300.1.1 3.104.2.7 .3.954163 .8 [id number] [facility] 2023-08-11 00:00:00 2023-08-11 00:00:00 Travel 1.2.840.1 62058.1.1 3.104.2.7 .3.581756 .8 1.2.840.114 350.1.13.10 4.2.7.3.698 084.8 [id number] [facility] 2023-08-05 00:00:00 2023-08-05 00:00:00 Telephone Andrew Astudillo 1.2.840.1 50750.1.1 3.104.2.7 .3.587315 .8 [id number] [facility] 2023-08-01 13:00:00 2023-08-01 13:26:02 Outpatient R ANDREW ASTUDILLO [facility] [id number] [facility] 2023-08-01 13:00:00 2023-08-01 13:26:02 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 Andrew Astudillo 2, [facility] 1.2.840.1 73092.1.1 3.104.2.7 .3.631557 .8 [id number] [facility] 2023-07-20 00:00:00 2023-07-20 00:00:00 Patient Secure Msg Doctor Unassigned, [place] 1.2.840.1 21639.1.1 3.104.2.7 .3.000289 .8 [id number] [facility] 2023-07-19 00:00:00 2023-07-19 00:00:00 Outpatient JANET CLARK ERIC [facility] [id number] [facility] 2023-07-18 00:00:00 2023-07-18 00:00:00 RefPepe Jolly 1.2.840.1 91272.1.1 3.104.2.7 .3.756799 .8 [id number] [facility] 2023-07-15 08:00:00 2023-07-15 08:00:00 Outpatient R TABARESASHVINBRITNI [facility] [id number] [facility] 2023-07-14 09:40:00 2023-07-14 09:40:00 Outpatient R ERMA BANDAPARRISH COLIN [facility] [id number] [facility] 2023-07-14 00:00:00 2023-07-14 00:00:00 Refill Pepe Lacy 1.2.840.1 74667.1.1 3.104.2.7 .3.716603 .8 [id number] [facility] 2023-07-11 00:00:00 2023-07-11 00:00:00 Refill Prince Salter 1.2.840.1 88404.1.1 3.104.2.7 .3.202422 .8 [id number] [facility] 2023-07-06 00:00:00 2023-07-06 00:00:00 Telephone Andrew Astudillo K.HJordi 1.2.840.1 11999.1.1 3.104.2.7 .3.731902 .8 [id number] [facility] 2023-07-05 00:00:00 2023-07-05 00:00:00 Telephone Andrew Astudillo K.H. 1.2.840.1 84339.1.1 3.104.2.7 .3.588807 .8 [id number] [facility] 2023-07-04 00:00:00 2023-07-04 00:00:00 Refill Andrew Astudillo K.HJordi 1.2.840.1 03757.1.1 3.104.2.7 .3.316828 .8 [id number] [facility] 2023-06-22 10:30:00 2023-06-22 11:00:00 Office Visit Ephraim Eubanks 1.2.840.1 44861.1.1 3.104.2.7 .3.015489 .8 [id number] [facility] 2023-06-22 10:30:00 2023-06-22 10:30:00 Outpatient R EPHRAIM EUBANKS [facility] [id number] [facility] 2023-06-21 16:00:00 2023-06-21 16:35:24 Outpatient R ANDREW ASTUDILLO [facility] [id number] [facility] 2023-06-21 16:00:00 2023-06-21 16:35:24 Office Visit Andrew Astudillo 1.2.840.1 45481.1.1 3.104.2.7 .3.616987 .8 [id number] [facility] 2023-06-21 00:00:00 2023-06-21 00:00:00 Travel 1.2.840.1 23730.1.1 3.104.2.7 .3.277575 .8 1.2.840.114 350.1.13.10 4.2.7.3.698 084.8 [id number] [facility] 2023-06-20 00:00:00 2023-06-20 00:00:00 Patient Secure Msg Doctor Unassigned, [place] 1.2.840.1 33654.1.1 3.104.2.7 .3.472969 .8 [id number] [facility] 2023-06-20 00:00:00 2023-06-20 00:00:00 Patient Secure Msg Doctor Unassigned, [place] 1.2.840.1 82027.1.1 3.104.2.7 .3.546048 .8 [id number] [facility] 2023-06-20 00:00:00 2023-06-20 00:00:00 Patient Secure Msg Andrew Astudillo 1.2.840.1 28407.1.1 3.104.2.7 .3.693226 .8 [id number] [facility] 2023-06-20 00:00:00 2023-06-20 00:00:00 Patient Secure Msg Claire Villatoro 1.2.840.1 74672.1.1 3.104.2.7 .3.434476 .8 [id number] [facility] 2023-06-20 00:00:00 2023-06-20 00:00:00 Patient Secure Msg Ephraim Eubanks 1.2.840.1 95014.1.1 3.104.2.7 .3.605518 .8 [id number] [facility] 2023-06-13 00:00:00 2023-06-13 00:00:00 Telephone Andrew Astudillo 1.2.840.1 69050.1.1 3.104.2.7 .3.498533 .8 [id number] [facility] 2023-06-08 00:00:00 2023-06-08 00:00:00 RefCarlee Carmona 1.2.840.1 55356.1.1 3.104.2.7 .3.181406 .8 [id number] [facility] 2023-06-07 00:00:00 2023-06-07 00:00:00 Letter (Out) Gemini, General Cardiology [facility] 1.2840.114 350.1.13.10 4.2.7.2.686 [id number] [facility] 2023-06-07 00:00:00 2023-06-07 00:00:00 Patient Secure Msg Doctor Unassigned, [place] [facility] 1.2.840.114 350.1.13.10 4.2.7.2.686 [id number] [facility] 2023-06-06 00:00:00 2023-06-06 00:00:00 Transition of Care Jennifer Noland 1.2.840.114 350.1.13.10 4.2.7.2.686 [id number] [facility] 2023-06-06 00:00:00 2023-06-06 00:00:00 Telephone Britni Tabares [facility] 1.2840.114 350.1.13.10 4.2.7.2.686 [id number] [facility] 2023-05-23 21:19:00 2023-06-03 14:14:00 Inpatient X [facility] [id number] [facility] 2023-05-23 21:19:00 2023-06-03 14:14:00 Hospital Encounter Reji Bell, Phyllis Erickson, Manjeet Guzman [facility] ([facility] 1.2840.114 350.1.13.10 4.2.7.2.686 [id number] [facility] 2023-06-01 12:40:00 2023-06-01 15:16:00 Surgery Prince Salter [facility] 1.2.840.114 350.1.13.10 4.2.7.2.686 [id number] [facility] 2023-06-01 00:00:00 2023-06-01 00:00:00 Carlee Sly[facility] 1.2840.114 350.1.13.10 4.2.7.2.686 [id number] [facility] 2023-05-30 14:00:00 2023-05-30 14:00:00 Outpatient R ANDREW ASTUDILLO [facility] [id number] [facility] 2023-05-27 14:55:00 2023-05-27 15:01:00 Anesthesia Event Miguel A Tabares Brittanie Giang 1.2.840.1 34628.1.1 3.104.2.7 .3.109881 .8 [id number] [facility] 2023-05-24 00:00:00 2023-05-24 00:00:00 Travel 1.2.840.1 61032.1.1 3.104.2.7 .3.649815 .8 1.2.840.114 350.1.13.10 4.2.7.3.698 084.8 [id number] [facility] 2023-05-23 00:00:00 2023-05-23 00:00:00 Transition of Care Jennifer Noland 1.2.840.1 40608.1.1 3.104.2.7 .3.036146 .8 [id number] [facility] 2023-05-23 00:00:00 2023-05-23 00:00:00 Orders Only Doctor Unassigned, [place] 1.2.840.1 31057.1.1 3.104.2.7 .3.009247 .8 [id number] [facility] 2023-05-23 00:00:00 2023-05-23 00:00:00 Telephone Hiram Akers [facility] 1.2.840.114 350.1.13.10 4.2.7.2.686 [id number] [facility] 2023-05-17 08:26:00 2023-05-20 16:36:00 Inpatient R SHIRLEY VILLALBA [facility] [id number] [facility] 2023-05-17 08:26:00 2023-05-20 16:36:00 Hospital Encounter Claire Villatoro Rachel Perera, Bho[place]han 1.2.840.1 58943.1.1 3.104.2.7 .3.928494 .8 [id number] [facility] 2023-05-18 00:00:00 2023-05-18 00:00:00 IlanBritni Florian 1.2.840.1 00065.1.1 3.104.2.7 .3.769059 .8 [id number] [facility] 2023-05-17 10:00:00 2023-05-17 23:59:00 [facility] Hayes Villatoromervat art 1.2.840.1 81046.1.1 3.104.2.7 .3.689225 .8 [id number] [facility] 2023-05-17 12:55:00 2023-05-17 14:56:00 Anesthesia Event Mike Jacobs Denise R 1.2.840.1 99862.1.1 3.104.2.7 .3.018906 .8 [id number] [facility] 2023-05-17 11:00:00 2023-05-17 13:00:00 Surgery Claire Villatoro art 1.2.840.1 50542.1.1 3.104.2.7 .3.761173 .8 [id number] [facility] 2023-05-17 11:43:00 2023-05-17 12:19:00 Anesthesia Event Sammy Pham Eduart 1.2.840.1 69490.1.1 3.104.2.7 .3.048212 .8 [id number] [facility] 2023-05-17 00:00:00 2023-05-17 00:00:00 Travel 1.2.840.1 44585.1.1 3.104.2.7 .3.340464 .8 1.2.840.114 350.1.13.10 4.2.7.3.698 084.8 [id number] [facility] 2023-05-16 00:00:00 2023-05-16 00:00:00 Prep For Surgery Kathy Blankenship 1.2.840.1 48807.1.1 3.104.2.7 .3.905613 .8 [id number] [facility] 2023-05-13 11:45:00 2023-05-13 12:58:16 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 Andrew Astudillo 2, [facility] 1.2.840.1 55383.1.1 3.104.2.7 .3.899128 .8 [id number] [facility] 2023-05-13 11:45:00 2023-05-13 11:45:00 Outpatient R ANDREW ASTUDILLO [facility] [id number] [facility] 2023-05-11 00:00:00 2023-05-11 00:00:00 Patient Secure Msg Claire Villatoro 1.2.840.1 37237.1.1 3.104.2.7 .3.578079 .8 [id number] [facility] 2023-05-09 16:25:00 2023-05-09 16:30:00 Pre-Anesth esia Evaluation Call, [facility] Phone [facility] 1..840.114 350.1.13.10 4.2.7.2.686 [id number] [facility] 2023-05-09 00:00:00 2023-05-09 00:00:00 Telephone Parrish Jain 1.2.840.1 59978.1.1 3.104.2.7 .3.373286 .8 [id number] [facility] 2023-05-09 00:00:00 2023-05-09 00:00:00 Patient Secure Msg Doctor Unassigned, [place] [facility] 1.2.840.114 350.1.13.10 4.2.7.2.686 [id number] [facility] 2023-05-06 08:00:00 2023-05-06 08:00:00 Outpatient [facility] [id number] [facility] 2023-05-05 19:42:00 2023-05-05 22:00:00 Emergency Sherice Mclaughlin 1.2.840.1 64345.1.1 3.104.2.7 .3.132392 .8 [id number] [facility] 2023-05-05 09:20:00 2023-05-05 10:03:44 Outpatient CLAIRE PELLETIER [facility]A [facility] [id number] [facility] 2023-05-05 09:20:00 2023-05-05 10:03:44 Office Visit Claire Villatoro 1.2.840.1 89343.1.1 3.104.2.7 .3.011706 .8 [id number] [facility] 2023-05-05 09:20:00 2023-05-05 09:20:00 Outpatient R CLAIRE VILLATORO [facility]A [facility] [id number] [facility] 2023-05-05 00:00:00 2023-05-05 00:00:00 Telephone Parrish Jain 1.2.840.1 53111.1.1 3.104.2.7 .3.289753 .8 [id number] [facility] 2023-05-05 00:00:00 2023-05-05 00:00:00 Patient Secure Msg Claire Villatoro 1.2.840.1 43733.1.1 3.104.2.7 .3.665024 .8 [id number] [facility] 2023-05-05 00:00:00 2023-05-05 00:00:00 Travel 1.2.840.1 81770.1.1 3.104.2.7 .3.161543 .8 1.2.840.114 350.1.13.10 4.2.7.3.698 084.8 [id number] [facility] 2023-05-04 00:00:00 2023-05-04 00:00:00 Telephone Parrish Jain 1.2.840.1 09127.1.1 3.104.2.7 .3.662746 .8 [id number] [facility] 2023-05-04 00:00:00 2023-05-04 00:00:00 Orders Only Doctor Unassigned, [place] 1.2.840.1 33606.1.1 3.104.2.7 .3.948255 .8 [id number] [facility] 2023-05-03 10:00:00 2023-05-03 10:37:20 Outpatient R PARRISH JAIN [facility] [id number] [facility] 2023-05-03 10:00:00 2023-05-03 10:37:20 Office Visit Parrish Jain 1.2.840.1 51314.1.1 3.104.2.7 .3.145311 .8 [id number] [facility] 2023-05-03 00:00:00 2023-05-03 00:00:00 Travel 1.2.840.1 74776.1.1 3.104.2.7 .3.147248 .8 1.2.840.114 350.1.13.10 4.2.7.3.698 084.8 [id number] [facility] 2023-05-02 00:00:00 2023-05-02 00:00:00 Telephone Andrew Astudillo 1.2.840.1 52689.1.1 3.104.2.7 .3.754980 .8 [id number] [facility] 2023-04-29 15:00:00 2023-04-29 16:15:35 Outpatient R ANDREW [facility]UDILLO [facility] [id number] [facility] 2023-04-29 15:00:00 2023-04-29 16:15:35 Office Visit Andrew Astudillo 1.2.840.1 42368.1.1 3.104.2.7 .3.114598 .8 [id number] [facility] 2023-04-29 10:45:00 2023-04-29 10:45:00 Outpatient R WILLARD BRAVO [facility] [id number] [facility] 2023-04-29 00:00:00 2023-04-29 00:00:00 Patient Secure Msg Parrish Jain 1.2.840.1 25382.1.1 3.104.2.7 .3.362179 .8 [id number] [facility] 2023-04-28 10:45:00 2023-04-28 10:53:48 Outpatient R ANDREW [facility]UDILLO [facility] [id number] [facility] 2023-04-28 10:45:00 2023-04-28 10:53:48 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 Andrew Astudillo 2, Adc Lab 1.2.840.1 25199.1.1 3.104.2.7 .3.877435 .8 [id number] [facility] 2023-04-28 00:00:00 2023-04-28 00:00:00 Travel 1.2.840.1 41011.1.1 3.104.2.7 .3.042702 .8 1.2.840.114 350.1.13.10 4.2.7.3.698 084.8 [id number] [facility] 2023-04-25 00:00:00 2023-04-25 00:00:00 Telephone Andrew Astudillo 1.2.840.1 32352.1.1 3.104.2.7 .3.579579 .8 [id number] [facility] 2023-04-22 10:00:00 2023-04-22 10:00:00 Office Visit Willard Bravo S 1.2.840.1 87910.1.1 3.104.2.7 .3.175877 .8 [id number] [facility] 2023-04-22 10:00:00 2023-04-22 09:38:38 Outpatient R WILLARD [facility]RAVO [facility] [id number] [facility] 2023-04-22 08:15:00 2023-04-22 08:49:51 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 Andrew Astudillo 2, Adc Lab 1.2.840.1 15828.1.1 3.104.2.7 .3.911712 .8 [id number] [facility] 2023-04-22 00:00:00 2023-04-22 00:00:00 Travel 1.2.840.1 84311.1.1 3.104.2.7 .3.579305 .8 1.2.840.114 350.1.13.10 4.2.7.3.698 084.8 [id number] [facility] 2023-04-19 11:30:00 2023-04-19 11:58:20 Outpatient R ANDREW [facility]UDILLO [facility] [id number] [facility] 2023-04-19 11:30:00 2023-04-19 11:58:20 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 Andrew Astudillo 2, Adc Lab 1.2.840.1 31502.1.1 3.104.2.7 .3.602986 .8 [id number] [facility] 2023-04-19 09:00:00 2023-04-19 09:00:00 Outpatient R BRITNI TABARES [facility] [id number] [facility] 2023-04-19 00:00:00 2023-04-19 00:00:00 Telephone Britni Tabares 1.2.840.1 50765.1.1 3.104.2.7 .3.495152 .8 [id number] [facility] 2023-04-19 00:00:00 2023-04-19 00:00:00 Telephone Andrew Astudillo 1.2.840.1 81387.1.1 3.104.2.7 .3.658640 .8 [id number] [facility] 2023-04-19 00:00:00 2023-04-19 00:00:00 Travel 1.2.840.1 71924.1.1 3.104.2.7 .3.288281 .8 1.2.840.114 350.1.13.10 4.2.7.3.698 084.8 [id number] [facility] 2023-04-15 15:00:00 2023-04-15 15:49:25 Office Visit Andrew Astudillo 1.2.840.1 45482.1.1 3.104.2.7 .3.424664 .8 [id number] [facility] 2023-04-15 12:30:00 2023-04-15 12:30:00 Office Visit Britni Tabares 1.2.840.1 35711.1.1 3.104.2.7 .3.217307 .8 [id number] [facility] 2023-04-15 10:30:00 2023-04-15 12:18:12 Office Visit Willard Bravo Craig L 1.2.840.1 04591.1.1 3.104.2.7 .3.857286 .8 [id number] [facility] 2023-04-15 12:30:00 2023-04-15 11:37:50 Outpatient R BRITNI TABARES [facility] [id number] [facility] 2023-04-15 10:45:00 2023-04-15 11:07:18 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 Willard Bravo 2, Adc Lab 1.2.840.1 35720.1.1 3.104.2.7 .3.191995 .8 [id number] [facility] 2023-04-15 00:00:00 2023-04-15 00:00:00 Telephone Andrew Astudillo 1.2.840.1 48902.1.1 3.104.2.7 .3.485244 .8 [id number] [facility] 2023-04-15 00:00:00 2023-04-15 00:00:00 Telephone Britni Tabares 1.2.840.1 15312.1.1 3.104.2.7 .3.920699 .8 [id number] [facility] 2023-04-15 00:00:00 2023-04-15 00:00:00 Travel 1.2.840.1 35742.1.1 3.104.2.7 .3.277961 .8 1.2.840.114 350.1.13.10 4.2.7.3.698 084.8 [id number] [facility] 2023-04-11 00:00:00 2023-04-11 00:00:00 Transition of Care Jennifer Noland 1.2.840.1 71761.1.1 3.104.2.7 .3.892653 .8 [id number] [facility] 2023-04-11 00:00:00 2023-04-11 00:00:00 Patient Secure Msg Doctor Unassigned, [place] 1.2.840.1 17036.1.1 3.104.2.7 .3.244426 .8 [id number] [facility] 2023-04-06 20:56:00 2023-04-08 17:25:00 Inpatient X СЕРГЕЙ HI [facility] MINDY [id number] [facility] 2023-04-06 20:56:00 2023-04-08 17:25:00 Hospital Encounter Mclaughlin Сергей Zuniga FernyCocoy 1.2.840.1 65629.1.1 3.104.2.7 .3.414696 .8 [id number] [facility] 2023-04-07 14:00:00 2023-04-07 14:00:00 Outpatient R ANDREW [facility]ILLO [facility] [id number] [facility] 2023-04-06 00:00:00 2023-04-06 00:00:00 Travel 1.2.840.1 25772.1.1 3.104.2.7 .3.188571 .8 1.2.840.114 350.1.13.10 4.2.7.3.698 084.8 [id number] [facility] 2023-04-04 08:00:00 2023-04-04 08:26:42 Outpatient R ANDREW ASUTDILLO [facility] [id number] [facility] 2023-04-04 08:00:00 2023-04-04 08:26:42 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 Andrew Astudillo 2, Adc Lab 1.2.840.1 65805.1.1 3.104.2.7 .3.993567 .8 [id number] [facility] 2023-04-04 00:00:00 2023-04-04 00:00:00 Travel 1.2.840.1 48833.1.1 3.104.2.7 .3.317978 .8 1.2.840.114 350.1.13.10 4.2.7.3.698 084.8 [id number] [facility] 2023-04-01 13:04:00 2023-04-01 15:15:00 Emergency Oly Mcclelland 1.2.840.1 00699.1.1 3.104.2.7 .3.761176 .8 [id number] [facility] 2023-04-01 11:00:00 2023-04-01 11:20:17 Outpatient R ANDREW ASTUDILLO [facility] [id number] [facility] 2023-04-01 11:00:00 2023-04-01 11:20:17 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 Andrew Astudillo 2, Adc Lab 1.2.840.1 88740.1.1 3.104.2.7 .3.353004 .8 [id number] [facility] 2023-04-01 11:00:00 2023-04-01 11:20:17 Outpatient R ANDREW ASTUDILLO [facility] ERT [id number] [facility] 2023-04-01 10:00:00 2023-04-01 10:00:00 Outpatient R WILLARD BRAVO [facility] [id number] [facility] 2023-04-01 00:00:00 2023-04-01 00:00:00 Telephone Parrish Jain 1..840.1 15559.1.1 3.104.2.7 .3.832360 .8 [id number] [facility] 2023-04-01 00:00:00 2023-04-01 00:00:00 Telephone Andrew Astudillo 1.2.840.1 39055.1.1 3.104.2.7 .3.985029 .8 [id number] [facility] 2023-03-31 15:20:00 2023-03-31 16:21:42 Outpatient R PARRISH JAIN [facility] [id number] [facility] 2023-03-31 15:20:00 2023-03-31 16:21:42 Office Visit Parrish Jain 1.2.840.1 69350.1.1 3.104.2.7 .3.798039 .8 [id number] [facility] 2023-03-31 00:00:00 2023-03-31 00:00:00 Telephone Parrish Jain 1.2.840.1 57020.1.1 3.104.2.7 .3.974405 .8 [id number] [facility] 2023-03-31 00:00:00 2023-03-31 00:00:00 Patient Outreach Leigh Zaman 1.2.840.1 83693.1.1 3.104.2.7 .3.415776 .8 [id number] [facility] 2023-03-31 00:00:00 2023-03-31 00:00:00 Travel 1.2.840.1 89784.1.1 3.104.2.7 .3.790119 .8 1.2.840.114 350.1.13.10 4.2.7.3.698 084.8 [id number] [facility] 2023-03-30 00:00:00 2023-03-30 00:00:00 Patient Secure Msg Andrew Astudillo 1.2.840.1 16417.1.1 3.104.2.7 .3.920711 .8 [id number] [facility] 2023-03-30 00:00:00 2023-03-30 00:00:00 Patient Secure Msg Doctor Unassigned, [place] 1.2.840.1 15107.1.1 3.104.2.7 .3.566871 .8 [id number] [facility] 2023-03-29 00:00:00 2023-03-29 00:00:00 RefAndrew Michelle 1.2.840.1 08049.1.1 3.104.2.7 .3.786957 .8 [id number] [facility] 2023-03-28 00:00:00 2023-03-28 00:00:00 Telephone Britni Tabares 1.2.840.1 25989.1.1 3.104.2.7 .3.693376 .8 [id number] [facility] 2023-03-28 00:00:00 2023-03-28 00:00:00 Telephone Britni Tabares 1.2.840.1 36777.1.1 3.104.2.7 .3.822939 .8 [id number] [facility] 2023-03-26 08:51:52 2023-03-26 23:59:00 Outpatient R BRITNI TABARES [facility] [id number] [facility] 2023-03-26 08:51:52 2023-03-26 23:59:00 Hospital Encounter Britni Tabares 1.2.840.1 75635.1.1 3.104.2.7 .3.529991 .8 [id number] [facility] 2023-03-26 00:00:00 2023-03-26 00:00:00 Travel 1.2.840.1 32116.1.1 3.104.2.7 .3.341366 .8 1.2.840.114 350.1.13.10 4.2.7.3.698 084.8 [id number] [facility] 2023-03-25 00:00:00 2023-03-25 00:00:00 Patient Secure Msg Doctor Unassigned, [place] 1.2.840.1 58671.1.1 3.104.2.7 .3.553156 .8 [id number] [facility] 2023-03-24 11:55:00 2023-03-24 13:36:00 Emergency X PAM ADLER [facility] ERT [id number] [facility] 2023-03-24 11:55:00 2023-03-24 13:36:00 Emergency Pam Adler 1.2.840.1 55932.1.1 3.104.2.7 .3.378484 .8 [id number] [facility] 2023-03-24 00:00:00 2023-03-24 00:00:00 Refill Mecca Martinez 1.2.840.1 16105.1.1 3.104.2.7 .3.039751 .8 [id number] [facility] 2023-03-23 13:00:00 2023-03-23 15:19:25 Outpatient R ANDREW ASTUDILLO [facility] [id number] [facility] 2023-03-23 13:00:00 2023-03-23 15:19:25 Office Visit Andrew Astudillo 1.2.840.1 91382.1.1 3.104.2.7 .3.220861 .8 [id number] [facility] 2023-03-23 00:00:00 2023-03-23 00:00:00 Telephone Andrew Astudillo 1.2.840.1 82413.1.1 3.104.2.7 .3.515725 .8 [id number] [facility] 2023-03-22 12:13:46 2023-03-22 23:59:00 Outpatient R BRITNI TABARES [facility] [id number] [facility] 2023-03-22 12:13:46 2023-03-22 23:59:00 Hospital Encounter Britni Tabares 1.2.840.1 84939.1.1 3.104.2.7 .3.831916 .8 [id number] [facility] 2023-03-22 11:30:00 2023-03-22 12:00:51 Office Visit Britni Tabares 1.2.840.1 05257.1.1 3.104.2.7 .3.187443 .8 [id number] [facility] 2023-03-22 11:15:00 2023-03-22 11:28:11 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 Andrew Astudillo 2, Adc Lab 1.2.840.1 49596.1.1 3.104.2.7 .3.726457 .8 [id number] [facility] 2023-03-22 00:00:00 2023-03-22 00:00:00 Patient Secure Msg Andrew Astudillo 1.2.840.1 43812.1.1 3.104.2.7 .3.298337 .8 [id number] [facility] 2023-03-22 00:00:00 2023-03-22 00:00:00 Telephone Britni Tabares 1.2.840.1 42916.1.1 3.104.2.7 .3.376259 .8 [id number] [facility] 2023-03-22 00:00:00 2023-03-22 00:00:00 Travel 1.2.840.1 29604.1.1 3.104.2.7 .3.457809 .8 1.2.840.114 350.1.13.10 4.2.7.3.698 084.8 [id number] [facility] 2023-03-21 11:00:00 2023-03-21 11:00:00 Outpatient R BRITNI TABARES [facility] [id number] [facility] 2023-03-21 00:00:00 2023-03-21 00:00:00 Telephone Andrew Astudillo 1.2.840.1 61965.1.1 3.104.2.7 .3.612015 .8 [id number] [facility] 2023-03-21 00:00:00 2023-03-21 00:00:00 Telephone Britni Tabares 1.2.840.1 79019.1.1 3.104.2.7 .3.852065 .8 [id number] [facility] 2023-03-21 00:00:00 2023-03-21 00:00:00 Patient Secure Msg Doctor Unassigned, [place] 1.840.1 60620.1.1 3.104.2.7 .3.306424 .8 [id number] [facility] 2023-03-18 09:07:00 2023-03-18 12:28:00 Emergency Syed Hatfield 1.2.840.1 05787.1.1 3.104.2.7 .3.330731 .8 [id number] [facility] 2023-03-18 11:00:00 2023-03-18 11:00:00 Outpatient R SENG AMBROSE [facility] [id number] [facility] 2023-03-18 08:15:00 2023-03-18 08:57:10 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 Andrew Astudillo 2, Adc Lab 1..840.1 21459.1.1 3.104.2.7 .3.825003 .8 [id number] [facility] 2023-03-18 08:15:00 2023-03-18 08:57:10 Outpatient R ANDREW ASTUDILLO [facility] ERT [id number] [facility] 2023-03-18 00:00:00 2023-03-18 00:00:00 Telephone Britni Tabares 1.2.840.1 88790.1.1 3.104.2.7 .3.923874 .8 [id number] [facility] 2023-03-18 00:00:00 2023-03-18 00:00:00 Travel 1.2.840.1 11890.1.1 3.104.2.7 .3.653092 .8 1.2.840.114 350.1.13.10 4.2.7.3.698 084.8 [id number] [facility] 2023-03-17 15:00:00 2023-03-17 15:40:57 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 Andrew Astudillo 2, Adc Lab 1.2.840.1 34072.1.1 3.104.2.7 .3.682801 .8 [id number] [facility] 2023-03-17 13:30:00 2023-03-17 14:25:15 Outpatient R ANDREW ASTUDILLO [facility] [id number] [facility] 2023-03-17 13:30:00 2023-03-17 14:25:15 Office Visit Andrew Astudillo 1.2.840.1 81623.1.1 3.104.2.7 .3.524976 .8 [id number] [facility] 2023-03-17 00:00:00 2023-03-17 00:00:00 Telephone Britni Tabares 1.2.840.1 70993.1.1 3.104.2.7 .3.032427 .8 [id number] [facility] 2023-03-17 00:00:00 2023-03-17 00:00:00 Telephone Britni Tabares 1.2.840.1 12035.1.1 3.104.2.7 .3.163563 .8 [id number] [facility] 2023-03-17 00:00:00 2023-03-17 00:00:00 Travel 1.2.840.1 49359.1.1 3.104.2.7 .3.071516 .8 1.2.840.114 350.1.13.10 4.2.7.3.698 084.8 [id number] [facility] 2023-03-15 16:15:00 2023-03-15 16:30:00 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 Britni Tabares 2, Adc Lab 1.2.840.1 46595.1.1 3.104.2.7 .3.421872 .8 [id number] [facility] 2023-03-15 15:30:00 2023-03-15 15:56:18 Outpatient R BRITNI TABARES [facility] [id number] [facility] 2023-03-15 15:30:00 2023-03-15 15:56:18 Office Visit Britni Tabares 1.2.840.1 97828.1.1 3.104.2.7 .3.984306 .8 [id number] [facility] 2023-03-15 00:00:00 2023-03-15 00:00:00 Travel 1.2.840.1 98219.1.1 3.104.2.7 .3.799370 .8 1.2.840.114 350.1.13.10 4.2.7.3.698 084.8 [id number] [facility] 2023-03-07 13:49:02 2023-03-07 23:59:00 Outpatient R STELLA LEAVITT [facility] [id number] [facility] 2023-03-07 13:49:02 2023-03-07 23:59:00 Hospital Encounter Stella Leavitt 1.2.840.1 38123.1.1 3.104.2.7 .3.164290 .8 [id number] [facility] 2023-03-07 13:30:00 2023-03-07 15:21:23 Office Visit Stella Leavitt Brett S 1.2.840.1 91673.1.1 3.104.2.7 .3.427231 .8 [id number] [facility] 2023-03-07 00:00:00 2023-03-07 00:00:00 Travel 1.2.840.1 55233.1.1 3.104.2.7 .3.888318 .8 1.2.840.114 350.1.13.10 4.2.7.3.698 084.8 [id number] [facility] 2023-03-04 13:00:00 2023-03-04 13:00:00 Outpatient R ANDREW ASTUDILLO [facility] [id number] [facility] 2023-02-24 10:45:00 2023-02-24 12:53:50 Outpatient R STELLA LEAVITT [facility] [id number] [facility] 2023-02-24 10:45:00 2023-02-24 12:53:50 Office Visit Stella Leavitt [facility] 1.2.840.114 350.1.13.10 4.2.7.2.686 [id number] [facility] 2023-02-23 00:00:00 2023-02-23 00:00:00 Patient Secure Msg Doctor Unassigned, [place] [facility] 1.2.840.114 350.1.13.10 4.2.7.2.686 [id number] [facility] 2023-02-21 09:00:00 2023-02-21 09:32:36 Outpatient R BRITNI TABARES [facility] [id number] [facility] 2023-02-21 09:00:00 2023-02-21 09:32:36 [facility] 1.2.840.114 350.1.13.10 4.2.7.2.686 [id number] [facility] 2023-02-14 00:00:00 2023-02-14 00:00:00 Transition of Care Jennifer Noland 1.2840.114 350.1.13.10 4.2.7.2.686 [id number] [facility] 2023-02-14 00:00:00 2023-02-14 00:00:00 Patient Secure Msg Doctor Unassigned, [place] [facility] 1.2840.114 350.1.13.10 4.2.7.2.686 [id number] [facility] 2023-02-08 06:15:00 2023-02-12 12:00:00 Inpatient Matthew GHAZALA ZARATE [facility] MINDY [id number] [facility] 2023-02-08 06:15:00 2023-02-12 12:00:00 Hospital Encounter Oly Mcclelland [facility] 1..840.114 350.1.13.10 4.2.7.2.686 [id number] [facility] 2023-02-11 07:39:00 2023-02-11 08:08:00 Anesthesia Event Rodrigo Bailey 1.2.840.1 30106.1.1 3.104.2.7 .3.076091 .8 [id number] [facility] 2023-02-08 00:00:00 2023-02-08 00:00:00 Telephone Andrew Astudillo 1.2.840.1 50502.1.1 3.104.2.7 .3.729202 .8 [id number] [facility] 2023-02-07 11:30:00 2023-02-07 15:36:17 Outpatient R ANDREW ASTUDILLO [facility] [id number] [facility] 2023-02-07 11:30:00 2023-02-07 15:36:17 Office Visit Astudillo, Sendil K.H. 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 Andrew Astudillo 2, Adc Lab 1.2.840.1 89408.1.1 3.104.2.7 .3.451395 .8 [id number] [facility] 2023-02-02 13:30:00 2023-02-02 13:30:00 Outpatient R ANDREW ASTUDILLO [facility] [id number] [facility] 2023-02-02 00:00:00 2023-02-02 00:00:00 Telephone Andrew Astudillo 1.2.840.1 41117.1.1 3.104.2.7 .3.872533 .8 [id number] [facility] 2023-02-02 00:00:00 2023-02-02 00:00:00 Travel 1.2.840.1 78348.1.1 3.104.2.7 .3.910822 .8 1.2.840.114 350.1.13.10 4.2.7.3.698 084.8 [id number] [facility] 2023-01-26 00:00:00 2023-01-26 00:00:00 Telephone Andrew Astudillo 1.2.840.1 91144.1.1 3.104.2.7 .3.944042 .8 [id number] [facility] 2023-01-25 11:30:00 2023-01-25 11:40:00 Office Visit Andrew Astudillo 1.2.840.1 43575.1.1 3.104.2.7 .3.983415 .8 [id number] [facility] 2023-01-25 11:30:00 2023-01-25 11:30:00 Outpatient R ANDREW [facility] [id number] [facility] 2023-01-24 11:15:00 2023-01-24 11:24:23 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 Britni Tabares 2, [facility] 1.2.840.1 66720.1.1 3.104.2.7 .3.116844 .8 [id number] [facility] 2023-01-24 10:00:00 2023-01-24 10:41:39 Outpatient R BRITNI TABARES [facility] [id number] [facility] 2023-01-24 10:00:00 2023-01-24 10:41:39 Office Visit Britni Tabares 1.2.840.1 40849.1.1 3.104.2.7 .3.266773 .8 [id number] [facility] 2023-01-24 00:00:00 2023-01-24 00:00:00 Travel 1.2.840.1 85512.1.1 3.104.2.7 .3.707309 .8 1.2.840.114 350.1.13.10 4.2.7.3.698 084.8 [id number] [facility] 2023-01-20 14:30:00 2023-01-20 15:24:58 Outpatient R RAY[facility]RENNA [facility] [id number] [facility] 2023-01-20 14:30:00 2023-01-20 15:24:58 Office Visit Andrew Astudillo 1.2.840.1 00565.1.1 3.104.2.7 .3.350658 .8 [id number] [facility] 2023-01-20 00:00:00 2023-01-20 00:00:00 Telephone Venecia Malhotra 1.2.840.1 67103.1.1 3.104.2.7 .3.801054 .8 [id number] [facility] 2023-01-20 00:00:00 2023-01-20 00:00:00 Travel 1.2.840.1 98393.1.1 3.104.2.7 .3.372509 .8 1.2.840.114 350.1.13.10 4.2.7.3.698 084.8 [id number] [facility] 2023-01-19 00:00:00 2023-01-19 00:00:00 Telephone Venecia Malhotra 1.2.840.1 83301.1.1 3.104.2.7 .3.216027 .8 [id number] [facility] 2023-01-19 00:00:00 2023-01-19 00:00:00 Transition of Care Jennifer Noland 1.2.840.1 87783.1.1 3.104.2.7 .3.030881 .8 [id number] [facility] 2023-01-16 14:42:00 2023-01-18 11:50:00 Inpatient GHAZALA DOYLE [facility] [id number] [facility] 2023-01-16 14:42:00 2023-01-18 11:50:00 Hospital Encounter Garcia Hansen David 1.2.840.1 38146.1.1 3.104.2.7 .3.232078 .8 [id number] [facility] 2023-01-17 00:00:00 2023-01-17 00:00:00 Patient Secure Msg Doctor Unassigned, [place] [facility] 1.2.840.114 350.1.13.10 4.2.7.2.686 [id number] [facility] 2023-01-16 00:00:00 2023-01-16 00:00:00 Travel 1.2.840.1 02725.1.1 3.104.2.7 .3.329545 .8 1.2.840.114 350.1.13.10 4.2.7.3.698 084.8 [id number] [facility] 2023-01-14 14:38:17 2023-01-14 23:59:00 Outpatient R BRITNI TABARES [facility] [id number] [facility] 2023-01-14 14:38:17 2023-01-14 23:59:00 Hospital Encounter Britni Tabares 1.2.840.1 02552.1.1 3.104.2.7 .3.438755 .8 [id number] [facility] 2023-01-14 15:00:00 2023-01-14 15:00:00 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 Britni Tabares 2, [facility] 1.2.840.1 58425.1.1 3.104.2.7 .3.842369 .8 [id number] [facility] 2023-01-14 13:30:00 2023-01-14 14:17:20 Office Visit Britni Tabares 1.2.840.1 27087.1.1 3.104.2.7 .3.340285 .8 [id number] [facility] 2023-01-14 00:00:00 2023-01-14 00:00:00 Orders Only Doctor Unassigned, [place] 1.2.840.1 25714.1.1 3.104.2.7 .3.466293 .8 [id number] [facility] 2023-01-14 00:00:00 2023-01-14 00:00:00 Travel 1.2.840.1 40192.1.1 3.104.2.7 .3.724312 .8 1.2.840.114 350.1.13.10 4.2.7.3.698 084.8 [id number] [facility] 2022-12-09 16:00:00 2022-12-09 16:00:00 Outpatient BRITNI MATAM[facility]OS [facility] [id number] [facility] 2022-12-06 00:00:00 2022-12-06 00:00:00 Telephone Britni Tabares 1.2.840.1 86976.1.1 3.104.2.7 .3.416618 .8 [id number] [facility] 2022-10-26 16:11:00 2022-10-26 19:04:00 Emergency Syed Hatfield [facility] 1.2.840.114 350.1.13.10 4.2.7.2.686 [id number] 084 [id number] [facility] 2022-10-26 16:00:00 2022-10-26 16:20:00 [facility] Unknown, Attending [facility] 1.2840.114 350.1.13.10 4.2.7.2.686 [id number] [facility] 2022-10-26 16:00:00 2022-10-26 16:11:51 Outpatient CATALINO CARRIZALES [facility] ERT [id number] [facility] 2022-10-26 16:00:00 2022-10-26 16:00:00 Outpatient R CATALINO [facility] [id number] [facility] 2022-10-26 15:40:00 2022-10-26 16:00:00 Urgent Care Provider, [facility] Unknown, Attending [facility] 1.2.840.114 350.1.13.10 4.2.7.2.686 [id number] [facility] 2022-10-26 15:40:00 2022-10-26 15:40:00 Outpatient R UNKNOWN, ATTENDING [facility] [id number] [facility] 2022-10-26 00:00:00 2022-10-26 00:00:00 Orders Only Doctor Unassigned, [place] [facility] 1.2.840.114 350.1.13.10 4.2.7.2.686 [id number] [facility] 2022-09-17 00:00:00 2022-09-17 00:00:00 Patient Secure Msg Doctor Unassigned, [place] [facility] 1.2.840.114 350.1.13.10 4.2.7.2.686 [id number] [facility] 2022-09-13 00:00:00 2022-09-13 00:00:00 Telephone Britni Tabares [facility] 1.2.840.114 350.1.13.10 4.2.7.2.686 [id number] [facility] 2022-09-10 08:15:00 2022-09-10 08:30:00 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, 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 Seng Ambrose [facility] 1.2.840.114 350.1.13.10 4.2.7.2.686 [id number] [facility] 2022-09-10 08:15:00 2022-09-10 08:15:00 Outpatient R SENG AMBROSE OGECHUKJoeMarques [facility] [id number] [facility] 2022-09-09 11:30:00 2022-09-09 12:04:04 Outpatient R CALVIN TABARESSSICA [facility] [id number] [facility] 2022-09-09 11:30:00 2022-09-09 12:04:04 Office Visit Britni Tabares [facility] 1.84.114 350.1.13.10 4.2.7.2.686 [id number] [facility] 2022-09-09 00:00:00 2022-09-09 00:00:00 Orders Only Doctor Unassigned, [place] [facility] 1..114 350.1.13.10 4.2.7.2.686 [id number] [facility] 2022-08-26 22:13:00 2022-08-26 23:38:00 [facility] [id number] 2022-08-26 22:13:00 2022-08-26 23:38:00 Emergency [place], [facility] 1..114 350.1.13.10 4.2.7.2.686 [id number] [facility] 2022-08-19 10:20:00 2022-08-19 10:40:00 Urgent Care Soledad Bullock, Attending [facility] 1.114 350.1.13.10 4.2.7.2.686 [id number] [facility] 2022-08-19 10:20:00 2022-08-19 10:20:00 Outpatient R SOLEDAD BULLOCK [facility] [id number] [facility] 2022-06-21 00:00:00 2022-06-21 00:00:00 Carlee Sylvester [facility] 1.2.840.114 350.1.13.10 4.2.7.2.686 [id number] [facility] 2022-04-06 14:45:00 2022-04-06 14:45:00 Outpatient WILLARD MONAE [facility] [id number] [facility] 2022-04-02 09:33:00 2022-04-02 23:59:00 Outpatient R HEATHER ANGELO [facility] [id number] [facility] 2022-04-02 09:33:00 2022-04-02 23:59:00 Hospital Encounter Heather Angelo [facility] 1..840.114 350.1.13.10 4.2.7.2.686 [id number] [facility] 2022-04-02 09:20:00 2022-04-02 09:40:00 Urgent Care Heather Angelo Unknown, Attending [facility] 1.2.840.114 350.1.13.10 4.2.7.2.686 [id number] [facility] 2022-04-02 00:00:00 2022-04-02 00:00:00 Orders Only Doctor Unassigned, [place] [facility] 1..840.114 350.1.13.10 4.2.7.2.686 [id number] [facility] 2022-02-12 11:30:00 2022-02-12 11:30:00 Outpatient R SENG AMBROSE OGECHUKWU [facility] [id number] [facility] 2022-02-02 00:00:00 2022-02-02 00:00:00 Telephone Seng Ambrose [facility] 1.2.840.114 350.1.13.10 4.2.7.2.686 [id number] [facility] 2021-12-30 00:00:00 2021-12-30 00:00:00 Telephone Dolores Ben Jose [facility] 1.2.840.114 350.1.13.10 4.2.7.2.686 [id number] [facility] 2021-12-29 09:30:00 2021-12-29 09:30:00 Outpatient ANDREW LAUREN [facility] [id number] [facility] 2021-11-21 00:00:00 2021-11-21 00:00:00 RefHeather Elkins [facility] 1.2.840.114 350.1.13.10 4.2.7.2.686 [id number] [facility] 2021-11-19 00:00:00 2021-11-19 00:00:00 Patient Secure Msg Doctor Unassigned, [place] [facility] 1.840.114 350.1.13.10 4.2.7.2.686 [id number] [facility] 2021-11-18 08:45:00 2021-11-18 09:00:00 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, 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 Seng Ambrose [facility] 1.2.840.114 350.1.13.10 4.2.7.2.686 [id number] [facility] 2021-11-18 08:45:00 2021-11-18 08:45:00 Outpatient R SENG AMBROSE OGECHUKWU [facility] [id number] [facility] 2021-11-13 12:26:21 2021-11-13 23:59:00 Hospital Encounter Seng Ambrose [facility] 1..114 350.1.13.10 4.2.7.2.686 [id number] [facility] 2021-11-13 11:30:00 2021-11-13 12:17:10 Outpatient R SENG AMBROSE OGECHUKWU [facility] [id number] [facility] 2021-11-13 11:30:00 2021-11-13 12:17:10 Office Visit Seng Ambrose [facility] 1.114 350.1.13.10 4.2.7.2.686 [id number] [facility] 2021-11-03 19:16:00 2021-11-03 21:16:00 Emergency X KESHIA HERNANDEZ [facility] ERT [id number] [facility] 2021-11-03 19:16:00 2021-11-03 21:16:00 Emergency Hernandez Keshia S [facility] 1..114 350.1.13.10 4.2.7.2.686 [id number] [facility] 2021-10-02 00:00:00 2021-10-02 00:00:00 Telephone IrinaCharito gorman [facility] 1..114 350.1.13.10 4.2.7.2.686 [id number] [facility] 2021-10-01 15:15:00 2021-10-01 15:30:00 Laboratory Only Only, Ang Db Test Brett Mantilla [facility] 1.2.114 350.1.13.10 4.2.7.2.686 [id number] [facility] 2021-10-01 15:15:00 2021-10-01 15:15:00 Outpatient R BRETT MANTILLA [facility] [id number] [facility] 2021-10-01 00:00:00 2021-10-01 00:00:00 Orders Only Doctor Unassigned, [place] [facility] 1.114 350.1.13.10 4.2.7.2.686 [id number] [facility] 2021-08-21 10:40:00 2021-08-21 10:40:00 Imm/Inj Visit Nurse, Elliot Porosaura ImmunizatiEarl Call [facility] 1.840.114 350.1.13.10 4.2.7.2.686 [id number] [facility] 2021-08-21 10:40:00 2021-08-21 10:34:57 Outpatient EARL SMITH [facility] [id number] [facility] 2021-08-03 00:00:00 2021-08-03 00:00:00 Ben Douglass [facility] .840.114 350.1.13.10 4.2.7.2.686 [id number] [facility] 2021-07-02 00:00:00 2021-07-02 00:00:00 Ben Douglass [facility] .84.114 350.1.13.10 4.2.7.2.686 [id number] [facility] 2021-05-28 11:00:00 2021-05-28 11:00:00 Outpatient CARLEE OSEI [facility] [id number] [facility] 2021-04-06 10:00:00 2021-04-06 10:00:00 Outpatient BEN CANAS [facility] [id number] [facility] 2021-02-10 14:40:00 2021-02-10 14:40:00 Outpatient R SASHA NEUMANNTHIA [facility] [id number] [facility] 2021-02-10 10:00:00 2021-02-10 10:00:00 Outpatient R RADHA ASTUDILLOBRENNA [facility] [id number] [facility] 2021-02-03 00:00:00 2021-02-03 00:00:00 Patient Secure Msg Doctor Unassigned, [place] [facility] 08.16.840.114 350.1.13.10 4.2.7.2.686 [id number] [facility] 2021-02-02 13:00:00 2021-02-02 13:00:00 Outpatient HEATHER ALEXNADER [facility] [id number] [facility] 2020-11-20 09:30:00 2020-11-20 09:30:00 Outpatient RAMYA HAN [facility] [id number] [facility] 2020-11-18 16:00:00 2020-11-18 16:00:00 Outpatient BEN CANAS [facility] [id number] [facility] 2020-10-24 00:00:00 2020-10-24 00:00:00 Patient Secure Msg Doctor Unassigned, [place] [facility] ..840.114 350.1.13.10 4.2.7.2.686 [id number] [facility] 2020-10-06 09:30:00 2020-10-06 09:30:00 Outpatient HEATHER ALEXANDER [facility] [id number] [facility] 2020-09-29 08:30:00 2020-09-29 08:30:00 Outpatient R HEATHER ANGELO [facility] [id number] [facility] 2020-06-16 14:00:00 2020-06-16 14:00:00 Outpatient R [facility] [id number] [facility] 2020-06-13 20:00:00 2020-06-13 20:00:00 Outpatient R SENIA DIXON STRAHIL [facility] [id number] [facility] 2020-06-11 11:30:00 2020-06-11 11:30:00 Outpatient R [facility] [id number] [facility] 2020-06-06 10:30:00 2020-06-06 10:30:00 Outpatient R BEN BERNAL [facility] [id number] [facility] 2020-06-05 10:00:00 2020-06-05 10:00:00 Outpatient BEN CANAS [facility] [id number] [facility] 2020-05-16 14:30:00 2020-05-16 14:30:00 Outpatient ANDREW LAUREN [facility] [id number] [facility] 2020-05-08 20:34:00 2020-05-09 16:50:00 Hospital Encounter Oly Mcclelland [facility] 1..840.114 350.1.13.10 4.2.7.2.686 [id number] 2020-02-14 00:00:00 2020-02-14 00:00:00 Ben Douglass [facility] 1..840.114 350.1.13.10 4.2.7.2.686 [id number] 2019-11-15 10:00:00 2019-11-15 10:00:00 Outpatient ANDREW LAUREN [facility] [id number] [facility] 2019-11-15 08:11:32 2019-11-15 08:41:32 Telemedici ne Visit Andrew Astudillo [facility] 1.2.840.114 350.1.13.10 4.2.7.2.686 [id number] 2019-11-08 00:00:00 2019-11-08 00:00:00 Telephone Ben Bernal [facility] 1.2.840.114 350.1.13.10 4.2.7.2.686 [id number] 2019-10-11 14:23:37 2019-10-11 15:35:47 Office Visit Ben Bernal [facility] 1.2.840.114 350.1.13.10 4.2.7.2.686 [id number] 2019-10-11 14:20:00 2019-10-11 14:20:00 Outpatient R BEN BERNAL [facility] [id number] [facility] 2019-08-11 08:35:57 2019-08-11 11:55:00 Emergency X CHAKA UMAÑA [facility] ERT [id number] [facility] Results Test Description Test Time Test Comments Results Resul t Comments Source XR CHEST 1 2023-08-17 0 16:22:47 EXAM: XR CHEST 1 COMPARISON: 09/10/2023 HISTORY: fu pleural effusion FINDINGS/IMPRESSION Relatively large lung volumes persist. Unchanged moderate bilateral pleuraleffusions with underlying atelectasis or pneumonia. Partially obscured heart silhouette, likely enlarged. Calcified aorta. Osteopenia. Degenerative changes of the spine. [facility]openia. [facility]15:51* Test Item Value Reference Range Interpretation Comme nts MAGNESIUM (test code = 7555058693) 1.8 mg/dL 1.7-2.4 Lab Interpretation (test cod e = 71675-3) [facility] [id number] 12:06:11* Test Item Value Reference Range Interpretation Comme nts WBC (test code = 6690-2) 8.73 4.30-11.10 RBC (test code = 789-8) 2.82 3.93-5.25 L HGB (test code = 718-7) 8.3 g/dL 11.6-15.0 L HCT (test code = 4544-3) 25.2 % 35.7-45.2 L MCV (test code = 787-2) 89.4 fL 80.6-95.5 MCH (test code = 785-6) 29.4 pg 25.9-32.8 MCHC (test code = 786-4) 32.9 g/dL 31.6-35.1 RDW-SD (test code = 86648-3) 55.6 fL 39.0-49.9 H RDW-CV (test code = 788-0) 16.9 % 12.0-15.5 H PLT (test code = 777-3) 145 166-358 L MPV (test code = 30798-2) 12.2 fL 9.5-12.9 NRBC/100 WBC (test code = 7005505408) 0.0 0.0-10.0 NRBC x10^3 (test code = 2938845541) See_Comment [Automated messa ge] The system which generated this result transmitted reference range: 10*3/?L. The reference range was not used to interpret this result as normal/abnormal. GRAN MAT (NEUT) % (test code = 770-8) 82.1 % IMM GRAN % (test code = 0739508421) 0.20 % LYMPH % (test code = 736-9) 7.2 % MONO % (test code = 5905-5) 9.7 % EOS % (test code = 713-8) 0.5 % BASO % (test code = 706-2) 0.3 % GRAN MAT x10^3(ANC) (test code = 7287320443) 7.16 10*3/uL 1.88-7.09 H IMM GRAN x10^3 (test code = 0185237906) 0.00-0.06 LYMPH x10^3 (test code = 731-0) 0.63 10*3/uL 1.32-3.29 L MONO x10^3 (test code = 742-7) 0.85 10*3/uL 0.33-0.92 EOS x10^3 (test code = 711-2) 0.04 10*3/uL 0.03-0.39 BASO x10^3 (test code = 704-7) 0.03 10*3/uL 0.01-0.07 Lab Interpretation (test code = 50573-2) [facility] [id number] 04:06:33EXAM: XR CHEST 1 VW COMPARISON: 09/05/2023 HISTORY: dyspnea FINDINGS/IMPRESSION Relatively large lung volumes persist. Unchanged moderate to large leftpleural effusion and moderate right pleural effusions with underlyingatelectasis or pneumonia. Partially obscured heart silhouette, likely enlarged. Calcified aorta. Osteopenia. Degener[facility] 1 [id number] 20:45:44EXAM: XR CHEST 1 VW, XR CHEST 1 VW HISTORY: 78 years old Female with f/u chest tube removal TECHNIQUE: Sequential portable AP view/s of the chest. COM[facility]: [facility] [id number] 20:45:44EXAM: XR CHEST 1 VW, XR CHEST 1 VW HISTORY: 78 years old Female with f/u chest tube removal TECHNIQUE: Sequential portable AP view/s of the chest. COMPARISON: 09/08/2023[facility] Met[facility] (NA, K, CL, CO2, GLUCOSE, BUN, CREATININE, CA)2023-09-12 12:41:11* Test Item Value Reference Range Interpretation Comme nts NA (test code = 1426114802) 134 mmol/L 135-145 L K (test code = 7393590068) 4.2 mmol/L 3.5-5.0 CL (test code = 4780451253) 101 mmol/L 98-108 CO2 TOTAL (test code = 6468372212) 29 mmol/L 23-31 AGAP (test code = 8588560227) 4 2-16 BUN (test code = 8387021682) 44 mg/dL 7-23 H GLUCOSE (test code = 4177988304) 94 mg/dL 70-110 CREATININE (test code = 5661548255) 1.95 mg/dL 0.50-1.04 H CALCIUM (test code = 1097756424) 8.5 mg/dL 8.6-10.6 L eGFR (test code = 26618-8) 26.1 mL/min/1.73m2 CKD-EPI eGFR (2020). Assuming creatinine has been stable day-to-day for at least three months, the eGFR indicates Category G4 (15 - 29 mL/min/1.73 m2) Lab Interpretation (test code = 58145-3) Abnormal [facility] with Nwye1494-71-65 12:21:48* Test Item Value Reference Range Interpretation Comme nts WBC (test code = 6690-2) 9.55 4.30-11.10 RBC (test code = 789-8) 3.15 3.93-5.25 L HGB (test code = 718-7) 9.3 g/dL 11.6-15.0 L HCT (test code = 4544-3) 27.9 % 35.7-45.2 L MCV (test code = 787-2) 88.6 fL 80.6-95.5 MCH (test code = 785-6) 29.5 pg 25.9-32.8 MCHC (test code = 786-4) 33.3 g/dL 31.6-35.1 RDW-SD (test code = 16683-9) 54.5 fL 39.0-49.9 H RDW-CV (test code = 788-0) 16.7 % 12.0-15.5 H PLT (test code = 777-3) 171 166-358 MPV (test code = 48320-2) 11.9 fL 9.5-12.9 NRBC/100 WBC (test code = 0478515397) 0.0 0.0-10.0 NRBC x10^3 (test code = 2541953723) See_Comment [Automated messa ge] The system which generated this result transmitted reference range: 10*3/?L. The reference range was not used to interpret this result as normal/abnormal. GRAN MAT (NEUT) % (test code = 770-8) 82.3 % IMM GRAN % (test code = 8716931599) 0.50 % LYMPH % (test code = 736-9) 6.8 % MONO % (test code = 5905-5) 9.5 % EOS % (test code = 713-8) 0.7 % BASO % (test code = 706-2) 0.2 % GRAN MAT x10^3(ANC) (test code = 3882678031) 7.85 10*3/uL 1.88-7.09 H IMM GRAN x10^3 (test code = 0969123478) 0.05 10*3/uL 0.00-0.06 LYMPH x10^3 (test code = 731-0) 0.65 10*3/uL 1.32-3.29 L MONO x10^3 (test code = 742-7) 0.91 10*3/uL 0.33-0.92 EOS x10^3 (test code = 711-2) 0.07 10*3/uL 0.03-0.39 BASO x10^3 (test code = 704-7) 0.01-0.07 Lab Interpretation (test code = 36410-6) [facility]normal [facility] 14:19:35* Test Item Value Reference Range Interpretation Comme nts MAGNESIUM (test code = 7589934936) 1.7 mg/dL 1.7-2.4 Lab Interpretation (test cod e = 72494-8) [facility] (NA, K, CL, CO2, GLUCOSE, BUN, CREATININE, CA)2023-09-11 12:34:10* Test Item Value Reference Range Interpretation Comme nts NA (test code = 4374819681) 135 mmol/L 135-145 K (test code = 7586248829) 4.0 mmol/L 3.5-5.0 CL (test code = 3638156755) 104 mmol/L 98-108 CO2 TOTAL (test code = 0939343954) 26 mmol/L 23-31 AGAP (test code = 8060244537) 5 2-16 BUN (test code = 7352587698) 42 mg/dL 7-23 H GLUCOSE (test code = 9586390295) 121 mg/dL 70-110 H CREATININE (test code = 4838975666) 2.23 mg/dL 0.50-1.04 H CALCIUM (test code = 0753821194) 8.5 mg/dL 8.6-10.6 L eGFR (test code = 76874-5) 22.2 mL/min/1.73m2 CKD-EPI eGFR (2020). Assuming creatinine has been stable day-to-day for at least three months, the eGFR indicates Category G4 (15 - 29 mL/min/1.73 m2) Lab Interpretation (test code = 00716-6) Abnormal [facility] with [id number] 12:14:12* Test Item Value Reference Range Interpretation Comme nts WBC (test code = 6690-2) 10.02 4.30-11.10 RBC (test code = 789-8) 3.09 3.93-5.25 L HGB (test code = 718-7) 9.1 g/dL 11.6-15.0 L HCT (test code = 4544-3) 27.9 % 35.7-45.2 L MCV (test code = 787-2) 90.3 fL 80.6-95.5 MCH (test code = 785-6) 29.4 pg 25.9-32.8 MCHC (test code = 786-4) 32.6 g/dL 31.6-35.1 RDW-SD (test code = 72139-4) 55.9 fL 39.0-49.9 H RDW-CV (test code = 788-0) 16.9 % 12.0-15.5 H PLT (test code = 777-3) 160 166-358 L MPV (test code = 97689-8) 11.8 fL 9.5-12.9 NRBC/100 WBC (test code = 8028684143) 0.0 0.0-10.0 NRBC x10^3 (test code = 8125409831) See_Comment [Automated messa ge] The system which generated this result transmitted reference range: 10*3/?L. The reference range was not used to interpret this result as normal/abnormal. GRAN MAT (NEUT) % (test code = 770-8) 83.7 % IMM GRAN % (test code = 9615971919) 0.50 % LYMPH % (test code = 736-9) 5.5 % MONO % (test code = 5905-5) 9.2 % EOS % (test code = 713-8) 0.8 % BASO % (test code = 706-2) 0.3 % GRAN MAT x10^3(ANC) (test code = 5250894497) 8.39 10*3/uL 1.88-7.09 H IMM GRAN x10^3 (test code = 4753090632) 0.05 10*3/uL 0.00-0.06 LYMPH x10^3 (test code = 731-0) 0.55 10*3/uL 1.32-3.29 L MONO x10^3 (test code = 742-7) 0.92 10*3/uL 0.33-0.92 EOS x10^3 (test code = 711-2) 0.08 10*3/uL 0.03-0.39 BASO x10^3 (test code = 704-7) 0.03 10*3/uL 0.01-0.07 Lab Interpretation (test code = 01343-2) Abnormal [facility] Metabolic Panel (NA, K, CL, CO2, GLUCOSE, BUN, CREATININE, CA)2023-09-10 12:53:03* Test Item Value Reference Range Interpretation Comme nts NA (test code = 1658740111) 134 mmol/L 135-145 L K (test code = 1421340308) 3.9 mmol/L 3.5-5.0 CL (test code = 5599870191) 104 mmol/L 98-108 CO2 TOTAL (test code = 6991601378) 28 mmol/L 23-31 AGAP (test code = 3644734027) 2 2-16 BUN (test code = 6574182036) 38 mg/dL 7-23 H GLUCOSE (test code = 3556375197) 88 mg/dL 70-110 CREATININE (test code = 8796761413) 2.23 mg/dL 0.50-1.04 H CALCIUM (test code = 1845706494) 8.5 mg/dL 8.6-10.6 L eGFR (test code = 51379-1) 22.2 mL/min/1.73m2 CKD-EPI eGFR (2020). Assuming creatinine has been stable day-to-day for at least three months, the eGFR indicates Category G4 (15 - 29 mL/min/1.73 m2) Lab Interpretation (test code = 97079-8) Abnormal [facility] with [id number] 12:38:47* Test Item Value Reference Range Interpretation Comme nts WBC (test code = 6690-2) 9.05 4.30-11.10 RBC (test code = 789-8) 3.08 3.93-5.25 L HGB (test code = 718-7) 9.1 g/dL 11.6-15.0 L HCT (test code = 4544-3) 28.1 % 35.7-45.2 L MCV (test code = 787-2) 91.2 fL 80.6-95.5 MCH (test code = 785-6) 29.5 pg 25.9-32.8 MCHC (test code = 786-4) 32.4 g/dL 31.6-35.1 RDW-SD (test code = 72728-0) 57.9 fL 39.0-49.9 H RDW-CV (test code = 788-0) 17.1 % 12.0-15.5 H PLT (test code = 777-3) 172 166-358 MPV (test code = 08546-3) 11.5 fL 9.5-12.9 NRBC/100 WBC (test code = 2355476896) 0.0 0.0-10.0 NRBC x10^3 (test code = 5781111650) See_Comment [Automated messa ge] The system which generated this result transmitted reference range: 10*3/?L. The reference range was not used to interpret this result as normal/abnormal. GRAN MAT (NEUT) % (test code = 770-8) 83.2 % IMM GRAN % (test code = 9248113872) 0.60 % LYMPH % (test code = 736-9) 5.4 % MONO % (test code = 5905-5) 9.5 % EOS % (test code = 713-8) 1.1 % BASO % (test code = 706-2) 0.2 % GRAN MAT x10^3(ANC) (test code = 6877032405) 7.53 10*3/uL 1.88-7.09 H IMM GRAN x10^3 (test code = 6086088121) 0.05 10*3/uL 0.00-0.06 LYMPH x10^3 (test code = 731-0) 0.49 10*3/uL 1.32-3.29 L MONO x10^3 (test code = 742-7) 0.86 10*3/uL 0.33-0.92 EOS x10^3 (test code = 711-2) 0.10 10*3/uL 0.03-0.39 BASO x10^3 (test code = 704-7) 0.01-0.07 Lab Interpretation (test code = 18260-8) Abnormal [facility] Metabolic Panel (NA, K, CL, CO2, GLUCOSE, BUN, CREATININE, CA)2023-09-09 16:05:49* Test Item Value Reference Range Interpretation Comme nts NA (test code = 8119530565) 134 mmol/L 135-145 L K (test code = 5078217852) 4.0 mmol/L 3.5-5.0 CL (test code = 9396952556) 105 mmol/L 98-108 CO2 TOTAL (test code = 1081932760) 22 mmol/L 23-31 L AGAP (test code = 4665735368) 7 2-16 BUN (test code = 6547356997) 37 mg/dL 7-23 H GLUCOSE (test code = 6170838372) 81 mg/dL 70-110 CREATININE (test code = 1028009719) 2.17 mg/dL 0.50-1.04 H CALCIUM (test code = 2418438986) 8.4 mg/dL 8.6-10.6 L eGFR (test code = 99398-8) 22.9 mL/min/1.73m2 CKD-EPI eGFR (2020). Assuming creatinine has been stable day-to-day for at least three months, the eGFR indicates Category G4 (15 - 29 mL/min/1.73 m2) Lab Interpretation (test code = 48628-9) [facility] Test Item Value Reference Range Interpretation Comme nts MAGNESIUM (test code = 6979835592) 1.9 mg/dL 1.7-2.4 Lab Interpretation (test cod e = 46766-6) [facility] 16:05:[facility]* Test Item Value Reference Range Interpretation Comme nts PHOSPHORUS (test code = 8370964618) 2.9 mg/dL 2.5-5.0 Lab Interpretation (test cod e = 10312-9) [facility]85[facility]-52 15:43:26* Test Item Value Reference Range Interpretation Comme nts WBC (test code = 6690-2) 10.36 4.30-11.10 RBC (test code = 789-8) 3.04 3.93-5.25 L HGB (test code = 718-7) 9.1 g/dL 11.6-15.0 L HCT (test code = 4544-3) 27.9 % 35.7-45.2 L MCV (test code = 787-2) 91.8 fL 80.6-95.5 MCH (test code = 785-6) 29.9 pg 25.9-32.8 MCHC (test code = 786-4) 32.6 g/dL 31.6-35.1 RDW-SD (test code = 01922-1) 58.4 fL 39.0-49.9 H RDW-CV (test code = 788-0) 17.3 % 12.0-15.5 H PLT (test code = 777-3) 176 166-358 MPV (test code = 08345-7) 11.2 fL 9.5-12.9 NRBC/100 WBC (test code = 4088118925) 0.0 0.0-10.0 NRBC x10^3 (test code = 8283133465) See_Comment [Automated messa ge] The system which generated this result transmitted reference range: 10*3/?L. The reference range was not used to interpret this result as normal/abnormal. GRAN MAT (NEUT) % (test code = 770-8) 84.7 % IMM GRAN % (test code = 2862873810) 0.60 % LYMPH % (test code = 736-9) 5.3 % MONO % (test code = 5905-5) 8.3 % EOS % (test code = 713-8) 0.8 % BASO % (test code = 706-2) 0.3 % GRAN MAT x10^3(ANC) (test code = 4413345060) 8.78 10*3/uL 1.88-7.09 H IMM GRAN x10^3 (test code = 1808705922) 0.06 10*3/uL 0.00-0.06 LYMPH x10^3 (test code = 731-0) 0.55 10*3/uL 1.32-3.29 L MONO x10^3 (test code = 742-7) 0.86 10*3/uL 0.33-0.92 EOS x10^3 (test code = 711-2) 0.08 10*3/uL 0.03-0.39 BASO x10^3 (test code = 704-7) 0.03 10*3/uL 0.01-0.07 Lab Interpretation (test code = 75230-4) [facility]normal [facility]act[facility] Hoihxrnrjiadp5630-09-78 23:08:47* Test Item Value Reference Range Interpretation Comme nts LDH (test code = 5452695623) 162 U/L 120-246 Lab Interpretation (test cod e = 63897-8) Normal [facility] 1 [id number] 21:35:54EXAM: XR CHEST 1 VW COMPARISON: 09/08/2023 HISTORY: S/P [facility] tube [facility]UnRol[facility] HospitalBLOOD CULTURE [id number] 18:01:50* Test Item Value Reference Range Interpretation Comme nts Blood Culture-Aerobic (test code = 43529-7) No organisms isolated No growth Previous preliminary verified result was Culture In Progress on 09/03/2023 at 1501 CSTPrevious preliminary verified result was No growth at 24 hours on 09/04/2023 at 1201 CSTPrevious preliminary verified result was No growth at 48 hours on 09/05/2023 at 1201 CSTPrevious preliminary verified result was No growth at 72 hours on 09/06/2023 at 1201 [employer] Blood Culture-Anaerobic (test code = 69256-0) No organisms isolated No growth Previous preliminary verified result was Culture In Progress on 09/03/2023 at 1501 CSTPrevious preliminary verified result was No growth at 24 hours on 09/04/2023 at 1201 CSTPrevious preliminary verified result was No growth at 48 hours on 09/05/2023 at 1201 CSTPrevious preliminary verified result was No growth at 72 hours on 09/06/2023 at 1201 [employer] Lab Interpretation (test code = 68504-9) Normal [facility] [id number] 18:01:50* Test Item Value Reference Range Interpretation Comme nts Blood Culture-Aerobic (test code = 20893-2) No organisms isolated No growth Previous preliminary verified result was Culture In Progress on 09/03/2023 at 1501 CSTPrevious preliminary verified result was No growth at 24 hours on 09/04/2023 at 1201 CSTPrevious preliminary verified result was No growth at 48 hours on 09/05/2023 at 1201 CSTPrevious preliminary verified result was No growth at 72 hours on 09/06/2023 at 1201 [employer] Blood Culture-Anaerobic (test code = 76063-9) No organisms isolated No growth Previous preliminary verified result was Culture In Progress on 09/03/2023 at 1501 CSTPrevious preliminary verified result was No growth at 24 hours on 09/04/2023 at 1201 CSTPrevious preliminary verified result was No growth at 48 hours on 09/05/2023 at 1201 CSTPrevious preliminary verified result was No growth at 72 hours on 09/06/2023 at 1201 [employer] Lab Interpretation (test code = 10960-7) Normal [facility] HospitalPhosphorus2024-01-25 09:59:16* Test Item Value Reference Range Interpretation Comme nts PHOSPHORUS (test code = 5865274522) 3.1 mg/dL 2.5-5.0 Lab Interpretation (test cod e = 75380-5) Normal [facility] HospitalMagnesium2024-01-25 09:59:16* Test Item Value Reference Range Interpretation Comme nts MAGNESIUM (test code = 4152065924) 2.0 mg/dL 1.7-2.4 Lab Interpretation (test cod e = 77160-7) Normal [facility] (NA, K, CL, CO2, GLUCOSE, BUN, CREATININE, CA)2023-09-08 09:59:16* Test Item Value Reference Range Interpretation Comme nts NA (test code = 1552859467) 134 mmol/L 135-145 L K (test code = 8787018436) 3.9 mmol/L 3.5-5.0 CL (test code = 7229889937) 104 mmol/L 98-108 CO2 TOTAL (test code = 5041224963) 26 mmol/L 23-31 AGAP (test code = 3891481117) 4 2-16 BUN (test code = 6066851191) 37 mg/dL 7-23 H GLUCOSE (test code = 9537898299) 79 mg/dL 70-110 CREATININE (test code = 8228586097) 2.18 mg/dL 0.50-1.04 H CALCIUM (test code = 9937620704) 8.3 mg/dL 8.6-10.6 L eGFR (test code = 93163-2) 22.8 mL/min/1.73m2 CKD-EPI eGFR (2020). Assuming creatinine has been stable day-to-day for at least three months, the eGFR indicates Category G4 (15 - 29 mL/min/1.73 m2) Lab Interpretation (test code = 09687-8) Abnormal [facility] Metabolic Panel (NA, K, CL, CO2, GLUCOSE, BUN, CREATININE, CA)2023-09-08 09:59:16* Test Item Value Reference Range Interpretation Comme nts NA (test code = 5066617070) 134 mmol/L 135-145 L K (test code = 9903251992) 3.9 mmol/L 3.5-5.0 CL (test code = 0505660267) 104 mmol/L 98-108 CO2 TOTAL (test code = 0850017069) 26 mmol/L 23-31 AGAP (test code = 2030572111) 4 2-16 BUN (test code = 7101990969) 37 mg/dL 7-23 H GLUCOSE (test code = 7617853742) 79 mg/dL 70-110 CREATININE (test code = 6672557256) 2.18 mg/dL 0.50-1.04 H CALCIUM (test code = 8195555184) 8.3 mg/dL 8.6-10.6 L eGFR (test code = 85921-5) 22.8 mL/min/1.73m2 CKD-EPI eGFR (2020). Assuming creatinine has been stable day-to-day for at least three months, the eGFR indicates Category G4 (15 - 29 mL/min/1.73 m2) Lab Interpretation (test code = 44917-7) Abnormal [facility]Magnesium2024-01-25 09:59:16* Test Item Value Reference Range Interpretation Comme nts MAGNESIUM (test code = 6761984259) 2.0 mg/dL 1.7-2.4 Lab Interpretation (test cod e = 73735-1) Normal [facility]2024-01-25 09:59:16* Test Item Value Reference Range Interpretation Comme nts PHOSPHORUS (test code = 5293927517) 3.1 mg/dL 2.5-5.0 Lab Interpretation (test cod e = 63947-5) Normal [facility] HospitalaPT (for use with Heparin Infusion)2023-09-08 09:53:31* Test Item Value Reference Range Interpretation Comme nts APTT Patient (test code = 3173-2) 51 See_Comment H [Automated messa ge] The system which generated this result transmitted reference range: 26 - 36 Seconds. The reference range was not used to interpret this result as normal/abnormal. Lab Interpretation (test code = 44349-4) Abnormal [facility] (for use with Heparin Infusion)2023-09-08 09:53:31* Test Item Value Reference Range Interpretation Comme nts APTT Patient (test code = 3173-2) 51 26-36 H Lab Interpretation (test cod e = 09663-3) Abnormal [facility] HospitalCb with Qpdj9496-21-91 09:48:54* Test Item Value Reference Range Interpretation Comme nts WBC (test code = 6690-2) 10.86 See_Comment [Automated messa ge] The system which generated this result transmitted reference range: 4.30 - 11.10 10*3/?L. The reference range was not used to interpret this result as normal/abnormal. RBC (test code = 789-8) 3.05 See_Comment L [Automated messa ge] The system which generated this result transmitted reference range: 3.93 - 5.25 10*6/?L. The reference range was not used to interpret this result as normal/abnormal. HGB (test code = 718-7) 8.9 g/dL 11.6-15.0 L HCT (test code = 4544-3) 28.3 % 35.7-45.2 L MCV (test code = 787-2) 92.8 fL 80.6-95.5 MCH (test code = 785-6) 29.2 pg 25.9-32.8 MCHC (test code = 786-4) 31.4 g/dL 31.6-35.1 L RDW-SD (test code = 94458-9) 58.4 fL 39.0-49.9 H RDW-CV (test code = 788-0) 17.2 % 12.0-15.5 H PLT (test code = 777-3) 208 See_Comment [Automated messa ge] The system which generated this result transmitted reference range: 166 - 358 10*3/?L. The reference range was not used to interpret this result as normal/abnormal. MPV (test code = 63299-5) 11.6 fL 9.5-12.9 NRBC/100 WBC (test code = 5557453730) 0.0 See_Comment [Automated [employer] ssage] The system which generated this result transmitted reference range: 0.0 - 10.0 /100 WBCs. The reference range was not used to interpret this result as normal/abnormal. NRBC x10^3 (test code = 9453693132) See_Comment [Automated messa ge] The system which generated this result transmitted reference range: 10*3/?L. The reference range was not used to interpret this result as normal/abnormal. GRAN MAT (NEUT) % (test code = 770-8) 82.9 % IMM GRAN % (test code = 5774363855) 0.60 % LYMPH % (test code = 736-9) 6.4 % MONO % (test code = 5905-5) 9.3 % EOS % (test code = 713-8) 0.6 % BASO % (test code = 706-2) 0.2 % GRAN MAT x10^3(ANC) (test code = 1885245738) 9.01 10*3/uL 1.88-7.09 H IMM GRAN x10^3 (test code = 7368286674) 0.06 10*3/uL 0.00-0.06 LYMPH x10^3 (test code = 731-0) 0.70 10*3/uL 1.32-3.29 L MONO x10^3 (test code = 742-7) 1.01 10*3/uL 0.33-0.92 H EOS x10^3 (test code = 711-2) 0.06 10*3/uL 0.03-0.39 BASO x10^3 (test code = 704-7) 0.01-0.07 Lab Interpretation (test code = 03725-0) Abnormal [facility] with Zpvo4031-44-46 09:48:54* Test Item Value Reference Range Interpretation Comme nts WBC (test code = 6690-2) 10.86 4.30-11.10 RBC (test code = 789-8) 3.05 3.93-5.25 L HGB (test code = 718-7) 8.9 g/dL 11.6-15.0 L HCT (test code = 4544-3) 28.3 % 35.7-45.2 L MCV (test code = 787-2) 92.8 fL 80.6-95.5 MCH (test code = 785-6) 29.2 pg 25.9-32.8 MCHC (test code = 786-4) 31.4 g/dL 31.6-35.1 L RDW-SD (test code = 54138-7) 58.4 fL 39.0-49.9 H RDW-CV (test code = 788-0) 17.2 % 12.0-15.5 H PLT (test code = 777-3) 208 166-358 MPV (test code = 69519-0) 11.6 fL 9.5-12.9 NRBC/100 WBC (test code = 9241754379) 0.0 0.0-10.0 NRBC x10^3 (test code = 2290929031) See_Comment [Automated messa ge] The system which generated this result transmitted reference range: 10*3/?L. The reference range was not used to interpret this result as normal/abnormal. GRAN MAT (NEUT) % (test code = 770-8) 82.9 % IMM GRAN % (test code = 0197100254) 0.60 % LYMPH % (test code = 736-9) 6.4 % MONO % (test code = 5905-5) 9.3 % EOS % (test code = 713-8) 0.6 % BASO % (test code = 706-2) 0.2 % GRAN MAT x10^3(ANC) (test code = 4749694794) 9.01 10*3/uL 1.88-7.09 H IMM GRAN x10^3 (test code = 3890083348) 0.06 10*3/uL 0.00-0.06 LYMPH x10^3 (test code = 731-0) 0.70 10*3/uL 1.32-3.29 L MONO x10^3 (test code = 742-7) 1.01 10*3/uL 0.33-0.92 H EOS x10^3 (test code = 711-2) 0.06 10*3/uL 0.03-0.39 BASO x10^3 (test code = 704-7) 0.01-0.07 Lab Interpretation (test code = 91801-3) Abnormal [facility] HospitalCardioversion ttdxzbzp9812-11-71 00:31:43 Direct Current Cardioversion (DCCV) Procedure Note Patient: Lovely Welch; #: [id number] Procedure: 09/07/2023NYHA Class: IIIASA Class: 3 Indications: Persistent atrial fibrillation Procedure: DCCV; CPT: 21295 Facility Location: [facility] ICU Referring Physician: Robin Gottlieb MD Media Relations Specialist: Blair Ponce MD Methods:Procedure was performed in the [facility] ICU. Witnessed informed consent was obtained for the procedure. ?Anesthesia was provided by the ICU faculty service (please see their note for details). ?A synchronized external direct current cardioversion was performed using 200 Joules was successful in converting to normal sinus rhythm. Anticoagulation: Heparin drip followed by [place] [facility] Complications: None. ? Impression: Successful DCCV into normal sinus rhythm Recommendations: 1. Continue current medical regimen.2. Maintain therapeutic anticoagulation.3. Outpatient follow-up with primary retirement assistant as scheduled.4. Outpatient follow-up with EP clinic. Thank you for allowing us to participate in the care of your patient. ?Please feel free to contact us for any questions or if we can be of further assistance. Alicia Han MD ?09/07/2023 ?6:23 PMUnRolling [facility] HospitalTransesophageal echo (HEATHER) with possible dkanpwwxcyznz9952-57-09 23:24:03* Test Item Value Reference Range Interpretation Comme nts Height (test code = 7686173330) 59 in Weight (test code = 1901592441) 122 lbs Systolic BP (test code = 3755438560) 115 mmHg Diastolic BP (test code = 1726600185) 86 mmHg Heart Rate (test code = 6365892219) 103 bpm Radiology Study observation (narrative) (test code = 05006-4) JOSE (test code = JOSE) ?Left?Ventricle: Left ventricle size is normal. Increased wall thickness. Normal systolic function. ?Left?Atrium: Left atrium is dilated. 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 Normal sized appendage. Decreased appendage flow velocity. No thrombus in left atrial appendage. Light spontaneous echo contrast visualized. ?Right?Ventricle: Right ventricle size is normal. Normal systolic function. ?Aortic?Valve: Consistent with mild to moderate stenosis. 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 Left VentricleLeft ventricle size is normal. Increased wall thickness. Normal systolic function.Right VentricleRight ventricle size is normal. Normal systolic function.Left AtriumLeft atrium is dilated. 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 Normal sized appendage. Decreased appendage flow velocity. No thrombus in left atrial appendage. Light spontaneous echo contrast visualized.Right AtriumRight atrium size is normal.IVC/SVCIVC normal in size. SVC size is normal.Mitral ValveMildly thickened leaflets. Mildly calcified leaflets. Mild transvalvular regurgitation. No stenosis.Tricuspid ValveMildly thickened leaflets. Mildly calcified leaflets. Mild transvalvular regurgitation. No stenosis.Aortic ValveTricuspid. Mildly thickened cusps. Mildly calcified cusps. Moderately restricted motion. Mild transvalvular regurgitation. Consistent with mild to moderate stenosis.Pulmonic ValveNot well visualized. Valve structure is normal. Trace transvalvular regurgitation.Ascending AortaNormal sized sinus of Valsalva and ascending aorta. Grade 5 protruding calcified atherosclerosis of the descending aorta with severe thickening.PericardiumNo pericardial effusion.Study DetailsA complete transesophageal echocardiogram was performed using complete 2D, color flow Doppler and spectral Doppler. During the study the esophageal view was captured. The probe was inserted by the retirement assistant. There was no probe insertion difficulty.There were 1 attempts to insert the probe. Probe in 1140. Probe out 1147. General sedation was given. ICU nurse administered sedation meds, ICU nurse monitored sedation recovery. There were no complications during the procedure.JASVIR Reddy [facility] (for use with Heparin Drip)2023-09-07 08:22:43* Test Item Value Reference Range Interpretation Comme nts APTT Patient (test code = 3173-2) 58 26-36 H Lab Interpretation (test cod e = 89138-7) Abnormal [facility] HospitalCB Without [id number] 08:18:00* Test Item Value Reference Range Interpretation Comme [facility] WBC (test code = 6690-2) 12.25 See_Comment H [Automated message] The system which generated this result transmitted reference range: 4.30 - 11.10 10*3/?L. The reference range was not used to interpret this result as normal/abnormal. RBC (test code = 789-8) 3.17 See_Comment L [Automated message] The system which generated this result transmitted reference range: 3.93 - 5.25 10*6/?L. The reference range was not used to interpret this result as normal/abnormal. HGB (test code = 718-7) 9.4 g/dL 11.6-15.0 L HCT (test code = 4544-3) 29.4 % 35.7-45.2 L MCH (test code = 785-6) 29.7 pg 25.9-32.8 MCV (test code = 787-2) 92.7 fL 80.6-95.5 MCHC (test code = 786-4) 32.0 g/dL 31.6-35.1 PLT (test code = 777-3) 227 See_Comment [Automated message] The system which generated this result transmitted reference range: 166 - 358 10*3/?L. The reference range was not used to interpret this result as normal/abnormal. MPV (test code = 81637-3) 11.0 fL 9.5-12.9 RDW-CV (test code = 788-0) 17.0 % 12.0-15.5 H RDW-SD (test code = 16212-4) 58.2 fL 39.0-49.9 H NRBC x10^3 (test code = 1644389021) See_Comment [Automated [employer]] The system which generated this result transmitted reference range: 10*3/?L. The reference range was not used to interpret this result as normal/abnormal. NRBC/100 WBC (test code = 2623003834) 0.0 See_Comment [Automated [employer] ge] The system which generated this result transmitted reference range: 0.0 - 10.0 /100 WBCs. The reference range was not used to interpret this result as normal/abnormal. IPF % (test code = 7883385063) Lab Interpretation (test code = 14747-0) Abnormal [facility] Without [id number] 08:18:00* Test Item Value Reference Range Interpretation Comme nts WBC (test code = 6690-2) 12.25 4.30-11.10 H RBC (test code = 789-8) 3.17 3.93-5.25 L HGB (test code = 718-7) 9.4 g/dL 11.6-15.0 L HCT (test code = 4544-3) 29.4 % 35.7-45.2 L MCH (test code = 785-6) 29.7 pg 25.9-32.8 MCV (test code = 787-2) 92.7 fL 80.6-95.5 MCHC (test code = 786-4) 32.0 g/dL 31.6-35.1 PLT (test code = 777-3) 227 166-358 MPV (test code = 26354-6) 11.0 fL 9.5-12.9 RDW-CV (test code = 788-0) 17.0 % 12.0-15.5 H RDW-SD (test code = 39810-5) 58.2 fL 39.0-49.9 H NRBC x10^3 (test code = 6834012280) See_Comment [Automated messa ge] The system which generated this result transmitted reference range: 10*3/?L. The reference range was not used to interpret this result as normal/abnormal. NRBC/100 WBC (test code = 8118483346) 0.0 0.0-10.0 IPF % (test code = 1212806061) Lab Interpretation (test code = 32571-7) Abnormal [facility] Metabolic Panel (NA, K, CL, CO2, GLUCOSE, BUN, CREATININE, CA)2023-09-07 08:14:59* Test Item Value Reference Range Interpretation Comme nts NA (test code = 2349306893) 130 mmol/L 135-145 L K (test code = 7961156289) 3.6 mmol/L 3.5-5.0 CL (test code = 8923829942) 102 mmol/L 98-108 CO2 TOTAL (test code = 0444026404) 21 mmol/L 23-31 L AGAP (test code = 3943861549) 7 2-16 BUN (test code = 0949319966) 36 mg/dL 7-23 H GLUCOSE (test code = 2707218847) 89 mg/dL 70-110 CREATININE (test code = 2138679218) 2.10 mg/dL 0.50-1.04 H CALCIUM (test code = 7269702810) 8.1 mg/dL 8.6-10.6 L eGFR (test code = 09669-4) 23.9 mL/min/1.73m2 CKD-EPI eGFR (2020). Assuming creatinine has been stable day-to-day for at least three months, the eGFR indicates Category G4 (15 - 29 mL/min/1.73 m2) Lab Interpretation (test code = 55667-8) Abnormal [facility] HospitalMagnesium2024-01-24 08:14:59* Test Item Value Reference Range Interpretation Comme nts MAGNESIUM (test code = 6494492455) 2.2 mg/dL 1.7-2.4 Lab Interpretation (test cod e = 57637-7) Normal [facility] HospitalAC Panel 20 + Lactic Oten0066-76-58 19:31:48* Test Item Value Reference Range Interpretation Comme nts PH (test code = 2) 7.37 7.35-7.45 PCO2 (test code = 1404303022) 38 See_Comment [Automated messa ge] The system which generated this result transmitted reference range: 35 - 45 mmHg. The reference range was not used to interpret this result as normal/abnormal. PO2 (test code = 7480689613) 76 See_Comment L [Automated messa ge] The system which generated this result transmitted reference range: 80 - 100 mmHg. The reference range was not used to interpret this result as normal/abnormal. HCO3 (test code = 9558975516) 21 See_Comment L [Automated messa ge] The system which generated this result transmitted reference range: 22 - 26 mEq/L. The reference range was not used to interpret this result as normal/abnormal. BE (test code = 8827139760) -3.5 See_Comment L [Automated messa ge] The system which generated this result transmitted reference range: -3.0 - 3.0 mEq/L. The reference range was not used to interpret this result as normal/abnormal. THB (test code = 4225010160) 11.1 g/dL 12.0-16.0 L %O2HB (test code = 6751451366) 94.2 % 94.0-99.0 %COHB ART (test code = 3086861416) 0.3 % 0.0-1.5 %METHB ART (test code = 8732704822) 0.5 % 0.4-1.5 VOL%O2 ART (test code = 0098539753) 14.8 % 15.0-23.0 L NA (test code = 0391847432) 131 mmol/L 135-145 L K+ (test code = 3216354348) 3.7 mmol/L 3.5-5.0 AC CA IONZ (test code = 6071184029) 4.70 mg/dL 4.50-5.30 GLUCOSE (test code = 6764215858) 99 mg/dL 70-110 LACTIC ACID (test code = 8638414340) 1.59 mmol/L 0.50-2.20 Lab Interpretation (test code = 56809-8) Abnormal [facility] Panel 20 + Lactic Cgoe4910-51-94 19:31:48* Test Item Value Reference Range Interpretation Comme nts PH (test code = 2) 7.37 7.35-7.45 PCO2 (test code = 4530901938) 38 35-45 PO2 (test code = 3239047320) 76 80-100 L HCO3 (test code = 1489447002) 21 22-26 L BE (test code = 1306294415) -3.5 -3.0-3.0 L THB (test code = 9830705772) 11.1 g/dL 12.0-16.0 L %O2HB (test code = 7877999552) 94.2 % 94.0-99.0 %COHB ART (test code = 3776414906) 0.3 % 0.0-1.5 %METHB ART (test code = 2597626313) 0.5 % 0.4-1.5 VOL%O2 ART (test code = 2964159702) 14.8 % 15.0-23.0 L NA (test code = 4386750873) 131 mmol/L 135-145 L K+ (test code = 9381612738) 3.7 mmol/L 3.5-5.0 AC CA IONZ (test code = 3347530658) 4.70 mg/dL 4.50-5.30 GLUCOSE (test code = 4910218554) 99 mg/dL 70-110 LACTIC ACID (test code = 1842437167) 1.59 mmol/L 0.50-2.20 Lab Interpretation (test cod e = 87121-8) Abnormal [facility]esium2024-01-23 14:48:24* Test Item Value Reference Range Interpretation Comme nts MAGNESIUM (test code = 6375173155) 1.7 mg/dL 1.7-2.4 Lab Interpretation (test cod e = 79501-9) Normal [facility] use with [facility] Infusion)2023-09-06 10:25:13* Test Item Value Reference Range Interpretation Comme nts APTT Patient (test code = 3173-2) 104 26-36 HH Lab Interpretation (test cod e = 06534-4) Abnormal [facility] HospitalBasi Metabolic Panel (NA, K, CL, CO2, GLUCOSE, BUN, CREATININE, CA)2023-09-06 10:21:32* Test Item Value Reference Range Interpretation Comme nts NA (test code = 7437902403) 132 mmol/L 135-145 L K (test code = 1113025958) 3.6 mmol/L 3.5-5.0 CL (test code = 2892957184) 103 mmol/L 98-108 CO2 TOTAL (test code = 3311276843) 22 mmol/L 23-31 L AGAP (test code = 4708478494) 7 2-16 BUN (test code = 2109019625) 35 mg/dL 7-23 H GLUCOSE (test code = 6212341897) 102 mg/dL 70-110 CREATININE (test code = 5181253197) 2.12 mg/dL 0.50-1.04 H CALCIUM (test code = 9142897400) 8.0 mg/dL 8.6-10.6 L eGFR (test code = 83373-1) 23.6 mL/min/1.73m2 CKD-EPI eGFR (2020). Assuming creatinine has been stable day-to-day for at least three months, the eGFR indicates Category G4 (15 - 29 mL/min/1.73 m2) Lab Interpretation (test code = 37186-6) Abnormal [facility] Without [id number] 10:00:10* Test Item Value Reference Range Interpretation Comme nts WBC (test code = 6690-2) 11.43 4.30-11.10 H RBC (test code = 789-8) 3.16 3.93-5.25 L HGB (test code = 718-7) 9.3 g/dL 11.6-15.0 L HCT (test code = 4544-3) 29.5 % 35.7-45.2 L MCH (test code = 785-6) 29.4 pg 25.9-32.8 MCV (test code = 787-2) 93.4 fL 80.6-95.5 MCHC (test code = 786-4) 31.5 g/dL 31.6-35.1 L PLT (test code = 777-3) 254 166-358 MPV (test code = 08607-7) 11.2 fL 9.5-12.9 RDW-CV (test code = 788-0) 17.0 % 12.0-15.5 H RDW-SD (test code = 41242-9) 58.4 fL 39.0-49.9 H NRBC x10^3 (test code = 6798342659) See_Comment [Automated messa ge] The system which generated this result transmitted reference range: 10*3/?L. The reference range was not used to interpret this result as normal/abnormal. NRBC/100 WBC (test code = 5109482254) 0.0 0.0-10.0 IPF % (test code = 4015498093) Lab Interpretation (test code = 64691-5) [facility] Test Item Value Reference Range Interpretation Comme [facility] APTT Patient (test code = 3173-2) 124 26-36 HH Lab Interpretation (test cod e = 80398-4) [facility] IIR2738-57-15 20:43:07* Test Item Value Reference Range Interpretation Comme [facility] PROTIME PATIENT (test code = 5964-2) 13.7 See_Comment H [Automated messa ge] The system which generated this result transmitted reference range: 10.1 - 12.6 Seconds. The reference range was not used to interpret this result as normal/abnormal. INR (test code = 6301-6) 1.2 Normal INR <1.1; Warfarin Therapeutic range 2.0 to 3.0 or 2.5 to 3.5, depending upon the indications. Lab Interpretation (test code = 27175-3) [facility]normal [facility] 20[facility]43:07* Test Item Value Reference Range Interpretation Comme nts APTT Patient (test code = 3173-2) 55 26-36 H Lab Interpretation (test cod e = 92735-3) Abnormal [facility] HospitalProthrombin Time / [id number] 20:43:07* Test Item Value Reference Range Interpretation Comme nts PROTIME PATIENT (test code = 5964-2) 13.7 10.1-12.6 H INR (test code = 6301-6) 1.2 Normal INR <1.1; Warfarin Therapeutic range 2.0 to 3.0 or 2.5 to 3.5, depending upon the indications. Lab Interpretation (test code = 49730-2) [facility]normal [facility] 1 [id number] 17:47:34EXAM: XR CHEST 1 VW COMPARISON: 09/01/2023 [facility] [id number] 09:01:05* Test Item Value Reference Range Interpretation Comme nts Blood Culture-Aerobic (test code = 50857-4) No organisms isolated No growth Previous preliminary verified result was Culture In Progress on 08/29/2023 at 0601 CSTPrevious preliminary verified result was No growth at 24 hours on 08/30/2023 at 0301 CSTPrevious preliminary verified result was No growth at 48 hours on 08/31/2023 at 0301 CSTPrevious preliminary verified result was No growth at 72 hours on 09/01/2023 at 0301 [employer] Blood Culture-Anaerobic (test code = 74117-7) No organisms isolated No growth Previous preliminary verified result was Culture In Progress on 08/29/2023 at 0601 CSTPrevious preliminary verified result was No growth at 24 hours on 08/30/2023 at 0301 CSTPrevious preliminary verified result was No growth at 48 hours on 08/31/2023 at 0301 CSTPrevious preliminary verified result was No growth at 72 hours on 09/01/2023 at 0301 [employer] Lab Interpretation (test code = 69648-6) Normal [facility] CULTURE [id number] 09:01:05* Test Item Value Reference Range Interpretation Comme nts Blood Culture-Aerobic (test code = 76921-8) No organisms isolated No growth Previous preliminary verified result was Culture In Progress on 08/29/2023 at 0601 CSTPrevious preliminary verified result was No growth at 24 hours on 08/30/2023 at 0301 CSTPrevious preliminary verified result was No growth at 48 hours on 08/31/2023 at 0301 CSTPrevious preliminary verified result was No growth at 72 hours on 09/01/2023 at 0301 [employer] Blood Culture-Anaerobic (test code = 49095-2) No organisms isolated No growth Previous preliminary verified result was Culture In Progress on 08/29/2023 at 0601 CSTPrevious preliminary verified result was No growth at 24 hours on 08/30/2023 at 0301 CSTPrevious preliminary verified result was No growth at 48 hours on 08/31/2023 at 0301 CSTPrevious preliminary verified result was No growth at 72 hours on 09/01/2023 at 0301 [employer] Lab Interpretation (test code = 62667-7) Normal [facility] [id number] 19:01:50History: bruising to left flank that is spreading and she is on heparin . Exam: CT ABDOMEN PELVIS WO CONTRAST Date: 09/02/2023 10:45 AM Ordering provider: AI COLVIN Technique: Axial CT scanning of the abdomen and pelvis is performed withoutcontrast. Radiation dose reduction performed using ALARA pr inciples. Technical quality: Adequate Comparison: CT from 08/29/2023. Findings: There are moderate to large bilateral pleural effusions withadjacent atelectasis. There is complex hyperdensity in the left pleuralfluid suggesting a component of hemorrhage. There is moderate pericardialeffusion, which is similar on the prior. There is diffuse fatty atrophy of the pancreas. Diffuse gallbladderhyperdensity could reflect sludge, stones, or vicarious excretion ofcontrast. The liver, spleen, and adrenalglands are unremarkable on thisnoncontrasted exam. No evidence of biliary ductal dilatation. There is right renal atrophy with cortical thinning. In the medial aspectof the left kidney, there is a 1.9 cm hypodense lesion. This isincompletely characterized without contrast although likely a cyst. Ifneeded, this could be evaluated with ultrasound. There is a stent in theleft renal artery origin. Noevidence of renal stone or hydronephrosis. There is a Hernandez catheter in the bladder. Atherosclerotic changes of theaorta are noted. Small hiatal hernia is observed. There is mild fluidaround the liver, in the pelvis, and in the left paracolic gutter likelyreflecting ascites. There is barium contrast mostly in the left colon. There is severediverticulosis in the sigmoid colon, descending colon, and ascending colonwithout evidence of diverticulitis. The visualized portion of the appendixis normal. No evidence of bowel obstruction or perforation. There is diffuse skin thickening and body wall edema in bilateral flankregions and thighs, which has increased since the prior CT. No evidence ofhematoma in these regions. Chronic appearing left lower rib fracture isnoted. There are multilevel spondylytic changes. There is severecompression fracture of the L1 vertebral body, which is stable on theprior.[facility] [id number] 15:27:45EXAM: XR CHEST 1 VW COMPARISON: 08/29/2023 HISTORY: [facility] (NA, K, CL, CO2, GLUCOSE, BUN, CREATININE, CA)2023-09-02 11:54:43* Test Item Value Reference Range Interpretation Comme nts NA (test code = 2557962274) 130 mmol/L 135-145 L K (test code = 2720206902) 4.2 mmol/L 3.5-5.0 CL (test code = 5503949413) 101 mmol/L 98-108 CO2 TOTAL (test code = 9778726776) 15 mmol/L 23-31 L AGAP (test code = 3759765898) 14 2-16 BUN (test code = 4894300153) 34 mg/dL 7-23 H GLUCOSE (test code = 3417902155) 156 mg/dL 70-110 H CREATININE (test code = 7619210050) 2.08 mg/dL 0.50-1.04 H CALCIUM (test code = 3915131749) 8.2 mg/dL 8.6-10.6 L eGFR (test code = 95095-5) 24.1 mL/min/1.73m2 CKD-EPI eGFR (2020). Assuming creatinine has been stable day-to-day for at least three months, the eGFR indicates Category G4 (15 - 29 mL/min/1.73 m2) Lab Interpretation (test code = 27573-5) Abnormal [facility] HospitalMagnesium2024-01-19 11:54:43* Test Item Value Reference Range Interpretation Comme nts MAGNESIUM (test code = 3932636307) 2.0 mg/dL 1.7-2.4 Lab Interpretation (test cod e = 59606-4) Normal [facility] use with Heparin Drip)2023-09-02 11:39:42* Test Item Value Reference Range Interpretation Comme nts APTT Patient (test code = 3173-2) 62 26-36 H Lab Interpretation (test cod e = 14503-2) Abnormal [facility] HospitalCbc with [id number] 11:29:41* Test Item Value Reference Range Interpretation Comme nts WBC (test code = 6690-2) 15.49 4.30-11.10 H RBC (test code = 789-8) 3.49 3.93-5.25 L HGB (test code = 718-7) 10.4 g/dL 11.6-15.0 L HCT (test code = 4544-3) 32.0 % 35.7-45.2 L MCV (test code = 787-2) 91.7 fL 80.6-95.5 MCH (test code = 785-6) 29.8 pg 25.9-32.8 MCHC (test code = 786-4) 32.5 g/dL 31.6-35.1 RDW-SD (test code = 07494-2) 55.3 fL 39.0-49.9 H RDW-CV (test code = 788-0) 16.3 % 12.0-15.5 H PLT (test code = 777-3) 303 166-358 MPV (test code = 51750-4) 11.4 fL 9.5-12.9 NRBC/100 WBC (test code = 0899749412) 0.0 0.0-10.0 NRBC x10^3 (test code = 5656681217) See_Comment [Automated message] The system which generated this result transmitted reference range: 10*3/?L. The reference range was not used to interpret this result as normal/abnormal. GRAN MAT (NEUT) % (test code = 770-8) 91.9 % IMM GRAN % (test code = 7162051080) 0.80 % LYMPH % (test code = 736-9) 2.6 % MONO % (test code = 5905-5) 4.5 % EOS % (test code = 713-8) 0.1 % BASO % (test code = 706-2) 0.1 % GRAN MAT x10^3(ANC) (test code = 4751513322) 14.26 10*3/uL 1.88-7.09 H IMM GRAN x10^3 (test code = 9259150420) 0.12 10*3/uL 0.00-0.06 H LYMPH x10^3 (test code = 731-0) 0.40 10*3/uL 1.32-3.29 L MONO x10^3 (test code = 742-7) 0.69 10*3/uL 0.33-0.92 EOS x10^3 (test code = 711-2) 0.03-0.39 L BASO x10^3 (test code = 704-7) 0.01-0.07 Lab Interpretation (test code = 18449-2) Abnormal [facility]-Terminal Hsk-[id number] 15:24:14* Test Item Value Reference Range Interpretation Comme nts NT-proBNP (test code = 19404-6) 90581 pg/mL <=125 H JOSE (test code = JOSE) Positive: Heart Failure Likely Lab Interpretation (test code = 87352-8) Abnormal [facility]inal Owc-Tue3966-27-18 15:24:14* Test Item Value Reference Range Interpretation Comme nts NT-proBNP (test code = 50231-9) 05038 pg/mL <=125 H JOSE (test code = JOSE) Positive: Heart Failure Likely Lab Interpretation (test code = 64849-3) Abnormal [facility] Metabolic Panel (NA, K, CL, CO2, GLUCOSE, BUN, CREATININE, CA)2023-09-01 11:31:14* Test Item Value Reference Range Interpretation Comme nts NA (test code = 1862544572) 127 mmol/L 135-145 L K (test code = 2245754854) 3.8 mmol/L 3.5-5.0 CL (test code = 3152285809) 101 mmol/L 98-108 CO2 TOTAL (test code = 0973401211) 17 mmol/L 23-31 L AGAP (test code = 8219267421) 9 2-16 BUN (test code = 0867853708) 33 mg/dL 7-23 H GLUCOSE (test code = 0008125659) 118 mg/dL 70-110 H CREATININE (test code = 0835846391) 2.21 mg/dL 0.50-1.04 H CALCIUM (test code = 4947743531) 7.6 mg/dL 8.6-10.6 L eGFR (test code = 96975-1) 22.5 mL/min/1.73m2 CKD-EPI eGFR (2020). Assuming creatinine has been stable day-to-day for at least three months, the eGFR indicates Category G4 (15 - 29 mL/min/1.73 m2) Lab Interpretation (test code = 46102-0) Abnormal [facility] HospitalMagnesium2024-01-18 11:31:14* Test Item Value Reference Range Interpretation Comme nts MAGNESIUM (test code = 4180296726) 1.9 mg/dL 1.7-2.4 Lab Interpretation (test cod e = 00296-3) Normal [facility] with Heparin Drip)2023-09-01 11:20:54* Test Item Value Reference Range Interpretation Comme nts APTT Patient (test code = 3173-2) 61 26-36 H Lab Interpretation (test cod e = 80346-1) Abnormal [facility] HospitalCbc with [id number] 11:18:12* Test Item Value Reference Range Interpretation Comme nts WBC (test code = 6690-2) 10.55 4.30-11.10 RBC (test code = 789-8) 3.46 3.93-5.25 L HGB (test code = 718-7) 10.3 g/dL 11.6-15.0 L HCT (test code = 4544-3) 30.7 % 35.7-45.2 L MCV (test code = 787-2) 88.7 fL 80.6-95.5 MCH (test code = 785-6) 29.8 pg 25.9-32.8 MCHC (test code = 786-4) 33.6 g/dL 31.6-35.1 RDW-SD (test code = 65729-8) 53.3 fL 39.0-49.9 H RDW-CV (test code = 788-0) 16.2 % 12.0-15.5 H PLT (test code = 777-3) 310 166-358 MPV (test code = 38215-6) 11.2 fL 9.5-12.9 NRBC/100 WBC (test code = 0583747685) 0.0 0.0-10.0 NRBC x10^3 (test code = 6008778767) See_Comment [Automated messa ge] The system which generated this result transmitted reference range: 10*3/?L. The reference range was not used to interpret this result as normal/abnormal. GRAN MAT (NEUT) % (test code = 770-8) 81.9 % IMM GRAN % (test code = 2251585102) 1.10 % LYMPH % (test code = 736-9) 5.9 % MONO % (test code = 5905-5) 10.5 % EOS % (test code = 713-8) 0.4 % BASO % (test code = 706-2) 0.2 % GRAN MAT x10^3(ANC) (test code = 3415301093) 8.64 10*3/uL 1.88-7.09 H IMM GRAN x10^3 (test code = 0855280994) 0.12 10*3/uL 0.00-0.06 H LYMPH x10^3 (test code = 731-0) 0.62 10*3/uL 1.32-3.29 L MONO x10^3 (test code = 742-7) 1.11 10*3/uL 0.33-0.92 H EOS x10^3 (test code = 711-2) 0.04 10*3/uL 0.03-0.39 BASO x10^3 (test code = 704-7) 0.01-0.07 Lab Interpretation (test code = 79294-4) Abnormal [facility] with Heparin Drip)2023-09-01 06:58:15* Test Item Value Reference Range Interpretation Comme [facility] APTT Patient (test code = 3173-2) 75 26-36 H Lab Interpretation (test cod e = 20498-4) Abnormal [facility] use with Heparin Drip)2023-08-31 21:42:13* Test Item Value Reference Range Interpretation Comme [facility] APTT Patient (test code = 3173-2) 26-36 HH Lab Interpretation (test cod e = 61791-9) Abnormal [facility] HospitalProthrombin Time (PT) / [id number] 14:56:59 * Test Item Value Reference Range Interpretation Comme [facility] PROTIME PATIENT (test code = 5964-2) 16.5 10.1-12.6 H INR (test code = 6301-6) 1.4 Normal INR <1.1; Warfarin Therapeutic range 2.0 to 3.0 or 2.5 to 3.5, depending upon the indications. Lab Interpretation (test code = 23525-6) Abnormal [facility]2024-01-17 14:56:59* Test Item Value Reference Range Interpretation Comme nts APTT Patient (test code = 3173-2) 34 26-36 Lab Interpretation (test cod e = 76896-4) Normal [facility] HospitalUS RETROPERITONEAL [id number] 19:58:55 EXAM: US RETROPERITONEAL LIMITED HISTORY: 78 years-old Female; STEPHY on ?CKD TECHNIQUE: Survey ultrasound of the kidneys was performed. Representativeimages were obtained for the record. COMPARISON: None FINDINGS: Evaluation is limited by the body habitus and bowel gas. RIGHT KIDNEY:Size: The right kidney is small and measures 8.6 x 4.1 x 4.6 cm.Parenchyma: The renal parenchyma exhibits normal cortical echogenicity andcortical thinning. No solid or cystic lesion is detected.Collecting System: No hydronephrosis is seen. LEFT KIDNEY:Size: The left kidney is normal in size and measures 10 x 5 x 5.5 cm.Parenchyma: The renal parenchyma exhibits normal cortical echogenicity andthickness. No solid or cystic lesion is detected.Collecting System: No hydronephrosis is seen. [facility] 1 [id number] 19:02:39EXAM: XR CHEST 1 VW TECHNIQUE: AP view of the chest COMPARISON: 08/29/2023 HISTORY: 78 years-old Female with s/p LT thoracentesis . FINDINGS:The lungs are well expanded. Interval decrease in size of the left pleuraleffusion, now small. Linear opacity in the left middle gland presentatelectasis or loculated fluid. No pneumothorax. The heart is mildly enlarged. No osseous abnormality.[facility]CT [facility] PEL[facility] WO [id number] 16:05:24CT ABDOMEN PELVIS WO CONTRAST 08/29/2023 12:16 PM HISTORY: Nausea/vomiting Please do with oral contra st COMPARISON: CT abdomen pelvis 05/25/2023 TECHNIQUE AND FINDINGS: Contiguous axial imaging of abdomen and pelvis wasperformed without contrast. Coronal and sagittal reconstructions wereobtained. Oral contrast was given. FINDINGS:Statements: Lack of intravenous contrast compromises evaluation of so lidorgans and vasculature. LOWER THORAX: Moderate left and small right pleural effusions and adjacentlung atelectasis. Interlobular septal thickening and peribronchial cuffing.Cardiomegaly. Small to moderate-sized pericardial effusion increased fromprior exam. Mitral annular calcification. Moderatecoronary arterycalcification. HEPATOBILIARY: The liver is normal in size. No biliary ductal dilatation. The gallbladder is surgically distended. Biliary sludge versus excretion ofcontrast if any recent intravenous contrast examination. SPLEEN: Normal in size. A small subcortical scarring with partialcalcification is noted. PANCREAS: No ductal dilation. No mild to moderate diffuse parenchymalatrophy. ADRENAL GLANDS: No adrenal nodules. 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 No hydronephrosis. 2 cm left renal cyst. No renalstone. GI TRACT: Small type I hiatal hernia, unchanged. Ingested contrast reachedmid small bowel loops. No dilationor wall thickening. ?Colonicdiverticulosis. The appendix is normal. PERITONEUM AND RETROPERITONEUM:No free air or free fluid. LYMPH NODES: No lymphadenopathy. PELVIS/BLADDER: The urinary bladder is normal. 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 No adnexal masses. VESSELS: Moderate calcified plaque abdominal aorta and iliac branches. Leftrenal stent is noted. BONESAND SOFT TISSUES: There has been worsening of pre-existing markedcompression of L1 vertebral body compatible with at least 60% height loss.No concerning soft tissue abnormality.[facility] GLUCOSE (AUTOMATED)2023-08-30 13:46:05* Test Item Value Reference Range Interpretation Comme [facility] POCT GLU (test code = 0316182381) 83 mg/dL 70-110 Lab Interpretation (test cod e = 17731-9) Normal [facility] GLUCOSE (AUTOMATED)2023-08-30 13:46:05* Test Item Value Reference Range Interpretation Comme [facility] POCT GLU (test code = 5370189517) 83 mg/dL 70-110 Lab Interpretation (test cod e = 80517-7) Normal [facility] Metabolic Panel (NA, K, CL, CO2, GLUCOSE, BUN, CREATININE, CA)2023-08-30 07:55:03* Test Item Value Reference Range Interpretation Comme nts NA (test code = 6141033641) 121 mmol/L 135-145 L K (test code = 5409055534) 4.2 mmol/L 3.5-5.0 CL (test code = 5392227447) 90 mmol/L 98-108 L CO2 TOTAL (test code = 1798138229) 25 mmol/L 23-31 AGAP (test code = 8138914955) 6 2-16 BUN (test code = 1273942639) 36 mg/dL 7-23 H GLUCOSE (test code = 7919120515) 84 mg/dL 70-110 CREATININE (test code = 7150595957) 2.57 mg/dL 0.50-1.04 H CALCIUM (test code = 1650756970) 8.3 mg/dL 8.6-10.6 L eGFR (test code = 14311-9) 18.7 mL/min/1.73m2 CKD-EPI eGFR (2020). Assuming creatinine has been stable day-to-day for at least three months, the eGFR indicates Category G4 (15 - 29 mL/min/1.73 m2) Lab Interpretation (test code = 45634-4) Abnormal [facility] HospitalMagnesium2024-01-16 07:55:03* Test Item Value Reference Range Interpretation Comme nts MAGNESIUM (test code = 6408747970) 2.0 mg/dL 1.7-2.4 Lab Interpretation (test cod e = 60612-2) Normal [facility] HospitalPhosphorus2024-01-16 07:55:03* Test Item Value Reference Range Interpretation Comme nts PHOSPHORUS (test code = 0263336686) 4.2 mg/dL 2.5-5.0 Lab Interpretation (test cod e = 20794-1) Normal [facility] HospitalCbc with Zptt8797-39-31 07:38:39* Test Item Value Reference Range Interpretation Comme nts WBC (test code = 6690-2) 10.40 4.30-11.10 RBC (test code = 789-8) 3.39 3.93-5.25 L HGB (test code = 718-7) 10.4 g/dL 11.6-15.0 L HCT (test code = 4544-3) 30.0 % 35.7-45.2 L MCV (test code = 787-2) 88.5 fL 80.6-95.5 MCH (test code = 785-6) 30.7 pg 25.9-32.8 MCHC (test code = 786-4) 34.7 g/dL 31.6-35.1 RDW-SD (test code = 05623-3) 50.8 fL 39.0-49.9 H RDW-CV (test code = 788-0) 15.4 % 12.0-15.5 PLT (test code = 777-3) 301 166-358 MPV (test code = 01814-5) 11.1 fL 9.5-12.9 NRBC/100 WBC (test code = 2291184683) 0.0 0.0-10.0 NRBC x10^3 (test code = 5382961320) See_Comment [Automated messa ge] The system which generated this result transmitted reference range: 10*3/?L. The reference range was not used to interpret this result as normal/abnormal. GRAN MAT (NEUT) % (test code = 770-8) 85.1 % IMM GRAN % (test code = 9658568885) 0.90 % LYMPH % (test code = 736-9) 3.2 % MONO % (test code = 5905-5) 10.1 % EOS % (test code = 713-8) 0.4 % BASO % (test code = 706-2) 0.3 % GRAN MAT x10^3(ANC) (test code = 2410416666) 8.86 10*3/uL 1.88-7.09 H IMM GRAN x10^3 (test code = 6941042085) 0.09 10*3/uL 0.00-0.06 H LYMPH x10^3 (test code = 731-0) 0.33 10*3/uL 1.32-3.29 L MONO x10^3 (test code = 742-7) 1.05 10*3/uL 0.33-0.92 H EOS x10^3 (test code = 711-2) 0.04 10*3/uL 0.03-0.39 BASO x10^3 (test code = 704-7) 0.03 10*3/uL 0.01-0.07 Lab Interpretation (test code = 77374-8) Abnormal [facility], Body Nzxiz1672-29-32 23:12:15* Test Item Value Reference Range Interpretation Comme nts PH BF (test code = 9023275957) 7.5 UNSPUN BODY FLUID COLOR (test code = 7900349302) Red UNSPUN BODY FLUID CLARITY (test code = 6737680600) Turbid SPUN BODY FLUID COLOR (test code = 4301130303) Yellow SPUN BODY FLUID CLARITY (test code = 8229377772) Clear Sediment (test code = 6302394995) The sediment volume is 0.05mLs of the total fluid volume of 3.0mLs and its color is red. [facility], Body Lfddy2220-26-34 23:12:15* Test Item Value Reference Range Interpretation Comme nts PH BF (test code = 2618288954) 7.5 UNSPUN BODY FLUID COLOR (test code = 6833114589) Red UNSPUN BODY FLUID CLARITY (test code = 7722398673) Turbid SPUN BODY FLUID COLOR (test code = 8242395467) Yellow SPUN BODY FLUID CLARITY (test code = 8580905632) Clear Sediment (test code = 1936237651) The sediment volume is 0.05mLs of the total fluid volume of 3.0mLs and its color is red. [facility] HospitalOsmolality, Serum or Bjgwxw9239-52-56 13:38:02 * Test Item Value Reference Range Interpretation Comme [facility] OSMOLALITY (test code = 2692-2) 267 278-305 L Lab Interpretation (test cod e = 91614-2) Abnormal [facility]inal Cmb-Nfs2382-26-15 13:04:39* Test Item Value Reference Range Interpretation Comme [facility] NT-proBNP (test code = 56979-6) 05803 pg/mL <=125 H JOSE (test code = JOSE) Positive: Heart Failure Likely Lab Interpretation (test code = 59505-9) Abnormal [facility] HospitalBasi Metabolic Panel (NA, K, CL, CO2, GLUCOSE, BUN, CREATININE, CA)2023-08-29 13:03:14* Test Item Value Reference Range Interpretation Comme nts NA (test code = 3386397211) 119 mmol/L 135-145 LL K (test code = 5089077759) 3.9 mmol/L 3.5-5.0 CL (test code = 1131579603) 84 mmol/L 98-108 L CO2 TOTAL (test code = 8489149993) 23 mmol/L 23-31 AGAP (test code = 4450697672) 12 2-16 BUN (test code = 0625192942) 40 mg/dL 7-23 H GLUCOSE (test code = 5944564074) 110 mg/dL 70-110 CREATININE (test code = 0634867578) 2.74 mg/dL 0.50-1.04 H CALCIUM (test code = 7966971205) 8.5 mg/dL 8.6-10.6 L eGFR (test code = 08565-9) 17.3 mL/min/1.73m2 CKD-EPI eGFR (2020). Assuming creatinine has been stable day-to-day for at least three months, the eGFR indicates Category G4 (15 - 29 mL/min/1.73 m2) Lab Interpretation (test code = 43133-9) [facility]normal [facility]20[facility] 12:55:34* Test Item Value Reference Range Interpretation Comme nts MAGNESIUM (test code = 6522009489) 2.1 mg/dL 1.7-2.4 Lab Interpretation (test cod e = 97526-5) Normal [facility] HospitalLactic Acid Whole Mcvmb7777-99-94 08:15:05* Test Item Value Reference Range Interpretation Comme nts LACTIC ACID (test code = 3822937436) 1.53 mmol/L 0.50-2.20 Lab Interpretation (test cod e = 68613-2) Normal [facility] HospitalLactic Acid Whole Yjeke4854-60-63 08:15:05* Test Item Value Reference Range Interpretation Comme nts LACTIC ACID (test code = 4744450914) 1.53 mmol/L 0.50-2.20 Lab Interpretation (test cod e = 83474-9) Normal [facility] with Nuxs6814-77-02 08:00:01* Test Item Value Reference Range Interpretation Comme nts WBC (test code = 6690-2) 19.08 4.30-11.10 H RBC (test code = 789-8) 4.27 3.93-5.25 HGB (test code = 718-7) 13.0 g/dL 11.6-15.0 HCT (test code = 4544-3) 38.3 % 35.7-45.2 MCV (test code = 787-2) 89.7 fL 80.6-95.5 MCH (test code = 785-6) 30.4 pg 25.9-32.8 MCHC (test code = 786-4) 33.9 g/dL 31.6-35.1 RDW-SD (test code = 15128-1) 49.8 fL 39.0-49.9 RDW-CV (test code = 788-0) 15.3 % 12.0-15.5 PLT (test code = 777-3) 463 166-358 H MPV (test code = 43147-5) 12.0 fL 9.5-12.9 IPF % (test code = 0566420981) 13.2 % 1.3-7.7 H Platelet count measured by fluorescence method. NRBC/100 WBC (test code = 2011693875) 0.0 0.0-10.0 NRBC x10^3 (test code = 5715201436) See_Comment [Automated [employer] ge] The system which generated this result transmitted reference range: 10*3/?L. The reference range was not used to interpret this result as normal/abnormal. SEG % (test code = 87505-3) 75 % 33-76 BAND % (test code = 67438-3) 16 % 0-1 H LYMPH % (test code = 72288-2) 4 % 14-54 L MONO % (test code = 04997-0) 3 % 0-4 EOS % (test code = 81568-0) 2 % 0-3 ANC (test code = 753-4) 17.34 10*3/uL 1.88-7.09 H PLT ESTIMATE (test code = 9317-9) Increased Normal A Lab Interpretation (test code = 50670-8) Abnormal [facility] 1 [id number] 07:42:24Ordering physician: Syed HATFIELD Indication: Shortness of breath Comparison: Chest dated 08/12/2023 Technical quality: Adequate Findings: Single AP view of the chest. The cardiopericardial silhouette isstably enlarged. There are bilateral pleural effusions, moderate to largeon the left and small on the right, with associated atelectasis versusinfiltrate. The visualized bony thorax is intact. [facility] [id number] 07:32:57* Test Item Value Reference Range Interpretation Comme nts TROPONIN I (test code = 5955524071) 0.004 ng/mL <=0.034 JOSE (test code = JOSE) Reference (Normal) Range (defined by the 99th percentile reference limit): <= 0.034 ng/mL Note: Cardiac troponin begins to rise 3-4 hours after the onset of ischemia. Repeat in 4-6 hours if the sample was drawn within 3-4 hours of the onset of the symptom and found normal. Diagnosis of myocardial injury is made with acute changes in cTn concentrations with at least one serial sample above the 99th percentile upper reference limit (URL), taken together with the patient's clinical presentation. Biotin has been reported to cause a negative bias, interpret results relative to patient's use of biotin. Lab Interpretation (test code = 68976-5) Normal [facility] [id number] 07:32:57* Test Item Value Reference Range Interpretation Comme nts TROPONIN I (test code = 4459254309) 0.004 ng/mL <=0.034 JOSE (test code = JOSE) Reference (Normal) Range (defined by the 99th percentile reference limit): <= 0.034 ng/mL Note: Cardiac troponin begins to rise 3-4 hours after the onset of ischemia. Repeat in 4-6 hours if the sample was drawn within 3-4 hours of the onset of the symptom and found normal. Diagnosis of myocardial injury is made with acute changes in cTn concentrations with at least one serial sample above the 99th percentile upper reference limit (URL), taken together with the patient's clinical presentation. Biotin has been reported to cause a negative bias, interpret results relative to patient's use of biotin. Lab Interpretation (test code = 66037-6) Normal [facility]. Metabolic Panel (91190)2023-08-29 07:28:21* Test Item Value Reference Range Interpretation Comme nts NA (test code = 9023352216) 116 mmol/L 135-145 LL K (test code = 9671471667) 4.1 mmol/L 3.5-5.0 CL (test code = 7365178129) 80 mmol/L 98-108 L CO2 TOTAL (test code = 3340325977) 22 mmol/L 23-31 L AGAP (test code = 1211304183) 14 2-16 BUN (test code = 5721475658) 40 mg/dL 7-23 H GLUCOSE (test code = 9787954006) 138 mg/dL 70-110 H CREATININE (test code = 6514417806) 2.97 mg/dL 0.50-1.04 H TOTAL BILI (test code = 2998742441) 1.1 mg/dL 0.1-1.1 CALCIUM (test code = 9673749344) 9.4 mg/dL 8.6-10.6 T PROTEIN (test code = 8578878777) 7.0 g/dL 6.3-8.2 ALBUMIN (test code = 3436306298) 4.0 g/dL 3.5-5.0 ALK PHOS (test code = 4051586316) 188 U/L 34-122 H ALTv (test code = 1742-6) 14 U/L 5-35 AST(SGOT) (test code = 6880403170) 20 U/L 13-40 eGFR (test code = 05607-1) 15.7 mL/min/1.73m2 CKD-EPI eGFR (2020). Assuming creatinine has been stable day-to-day for at least three months, the eGFR indicates Category G4 (15 - 29 mL/min/1.73 m2) Lab Interpretation (test code = 49877-7) [facility] 07:21:35* Test Item Value Reference Range Interpretation Comme nts MAGNESIUM (test code = 2418041326) 2.1 mg/dL 1.7-2.4 Lab Interpretation (test cod e = 52426-7) Normal [facility]2024-[facility] 07:21:15* Test Item Value Reference Range Interpretation Comme nts LIPASE (test code = 0007255128) 93 U/L 0-220 Lab Interpretation (test cod e = 90096-2) Normal [facility]24-[facility] 07:21:15* Test Item Value Reference Range Interpretation Comme nts LIPASE (test code = 5861548996) 93 U/L 0-220 Lab Interpretation (test cod e = 11715-3) Normal [facility] Hospital[facility] ABDOMEN [id number] 00:22:53History: Right upper quadrant pain.. Comparison: Referring:RICK RICHEY The liver is normal in contour. ?Normal echotexture. No focal hepatic mass.The liver measures 15 ?cm. Limited Doppler interrogation shows flow in the main portal vein ishepatopetal. The common duct is normal in caliber, measuring 4.3 ?mm. ?The gallbladderis present. The wall is not thickened and measures 1.8 mm. ?There are nostones and/or sludge. . There is no pericholecystic fluid. ?The pancreas isobscured by overlyingbowel gas. ? The visualized abdominal aorta and [facility]Care normal in caliber. There is no free intraperitoneal fluid.[facility] HospitalTroponin [id number] 16:25:23* Test Item Value Reference Range Interpretation Comme [facility] TROPONIN I (test code = 9282040593) 0.007 ng/mL <=0.034 JOSE (test code = JOSE) Reference (Normal) Range (defined by the 99th percentile reference limit): <= 0.034 ng/mL Note: Cardiac troponin begins to rise 3-4 hours after the onset of ischemia. Repeat in 4-6 hours if the sample was drawn within 3-4 hours of the onset of the symptom and found normal. Diagnosis of myocardial injury is made with acute changes in cTn concentrations with at least one serial sample above the 99th percentile upper reference limit (URL), taken together with the patient's clinical presentation. Biotin has been reported to cause a negative bias, interpret results relative to patient's use of biotin. Lab Interpretation (test code = 75789-1) Normal [facility] [id number] 16:22:43* Test Item Value Reference Range Interpretation Comme [facility] NT-proBNP (test code = 56497-9) 8690 pg/mL <=125 H JOSE (test code = JOSE) Positive: Heart Failure Likely Lab Interpretation (test code = 78839-7) [facility]normal [facility] [id number] 16:14:04* Test Item Value Reference Range Interpretation Comme nts MAGNESIUM (test code = 6168280996) 2.0 mg/dL 1.7-2.4 Lab Interpretation (test cod e = 75791-6) Normal [facility] (77100) (ALB,T.PRO,BILI T,BU/BC,ALT,AST,ALK PHOS)2023-08-13 16:14:04* Test Item Value Reference Range Interpretation Comme nts TOTAL BILI (test code = 1282239950) 1.1 mg/dL 0.1-1.1 BILI UNCON (test code = 1112648991) 0.7 mg/dL 0.1-1.1 BILI CONJ (test code = 1580466411) 0.0 mg/dL 0.0-0.3 T PROTEIN (test code = 1252006949) 5.8 g/dL 6.3-8.2 L ALBUMIN (test code = 1012931953) 3.1 g/dL 3.5-5.0 L ALK PHOS (test code = 1667160766) 90 U/L 34-122 ALTv (test code = 1742-6) 11 U/L 5-35 AST(SGOT) (test code = 9671122772) 18 U/L 13-40 Lab Interpretation (test cod e = 64292-0) [facility]normal [facility] (NA, K, CL, CO2, GLUCOSE, BUN, CREATININE, CA)2023-08-13 16:14:04* Test Item Value Reference Range Interpretation Comme nts NA (test code = 8753316097) 130 mmol/L 135-145 L K (test code = 6998358082) 4.7 mmol/L 3.5-5.0 CL (test code = 0205475830) 101 mmol/L 98-108 CO2 TOTAL (test code = 7646434100) 22 mmol/L 23-31 L AGAP (test code = 8069660369) 7 2-16 BUN (test code = 8102662220) 28 mg/dL 7-23 H GLUCOSE (test code = 9257818278) 129 mg/dL 70-110 H CREATININE (test code = 6313542843) 1.54 mg/dL 0.50-1.04 H CALCIUM (test code = 4036734889) 8.8 mg/dL 8.6-10.6 eGFR (test code = 60451-9) 34.6 mL/min/1.73m2 CKD-EPI eGFR (2020). Assuming creatinine has been stable day-to-day for at least three months, the eGFR indicates Category G3b (30 - 44 mL/min/1.73 m2) Lab Interpretation (test code = 43647-5) Abnormal [facility] (43030) (ALB,T.PRO,BILI T,BU/BC,ALT,AST,ALK PHOS)2023-08-13 16:14:04* Test Item Value Reference Range Interpretation Comme nts TOTAL BILI (test code = 7608562259) 1.1 mg/dL 0.1-1.1 BILI UNCON (test code = 5648237580) 0.7 mg/dL 0.1-1.1 BILI CONJ (test code = 2929658541) 0.0 mg/dL 0.0-0.3 T PROTEIN (test code = 7445915930) 5.8 g/dL 6.3-8.2 L ALBUMIN (test code = 6157913277) 3.1 g/dL 3.5-5.0 L ALK PHOS (test code = 1316459746) 90 U/L 34-122 ALTv (test code = 1742-6) 11 U/L 5-35 AST(SGOT) (test code = 1424430258) 18 U/L 13-40 Lab Interpretation (test cod e = 17673-6) Abnormal [facility]2023-12-30 16:13:44* Test Item Value Reference Range Interpretation Comme nts LIPASE (test code = 9618371666) 33 U/L 0-220 Lab Interpretation (test cod e = 09263-1) Normal [facility] 1 [id number] 15:35:13EXAM: XR CHEST 1 VW HISTORY: 78 years-old Female; Provided indication: chest pain . TECHNIQUE: Single frontal view of the chest. COMPARISON: This radiograph dated 05/24/2023 FINDINGS: The lungs are well-expanded. Persistent bilateral diffuse interstitial lungmarkings, similar to the prior. No focalconsolidation is seen. Slightinterval improvement of the right pleural effusion. Persistent cardiome hayes. Aortic knob calcifications. No focal osseous lesions or acute osseous findings are detected.[facility] HospitalCT [facility]ST PULMONARY [id number] 00:48:38PROCEDURE: CT CHEST ANGIOGRAM WITH INTRAVENOUS CONTRAST. PULMONARY EMBOLISMPROTOCOL. CLINICAL INDICATION: Pulmonary embolism (PE) suspected, unknown D-dimer ? Comparison: ?None TECHNIQUE: Volumetric h elical CT angiogram was performed of the chest (lungapices to bases) with IV contrast. Images were reconstructed at 1.25 and2.5 ?mm slice thickness. Axial MIPs and coronal and sagittal MPR imagesweregenerated and reviewed. FINDINGS: Devices: None HEART AND GREAT VESSELS: The opacification of the pulmonary vasculature isappropriate. No filling defects are seen through the level of the segmentalpulmonary arteries. Main pulmonary artery measures 3.1 cm. The thoracicaorta is normal in caliber. Theheart is enlarged with more pronounced biatrial enlargement. There istrace pericardial effusion. Mitral annular calcification. The RV to LV isnormal. MEDIASTINUM AND LOWER NECK: No central airway lesions are detected. Theesophagus is within normal limits. The included thyroid gland appearsnormal. LYMPH NODES: Scattered small lymph nodes in both sides of the mediastinumand hilar regions. No evidence of intrathoracic lymphadenopathy. LUNGS AND PLEURA: The lungs are well-expanded. Bibasilar reticular andgroundglass opacities of the lower lobes, lingula and right middle lobe,more pronounced at the dependent lungs. Small opacities also at thedependent upper lobes. Otherwise mild mosaic appearance to the lungs Nofocal consolidation. No suspicious nodules. No pleural abnormalitydetected. VISUALIZED UPPER ABDOMEN: The included solid organs and hollow viscusappear within normal limits. Small hiatal hernia. OSSEOUS STRUCTURES AND SOFT TISSUES: No focal osseous lesions are detected.The soft tissues appear normal. Eccentric atherosclerotic plaque andcalcification of the descending thoracic and abdominal aorta.[facility] HospitalTransthoracic echo (TTE)2023-08-12 22:46:36* Test Item Value Reference Range Interpretation Comme nts Height (test code = 3779079531) 59 in Weight (test code = 5410825096) 117 lbs Systolic BP (test code = 5107610942) 163 mmHg Diastolic BP (test code = 6536441826) 74 mmHg Heart Rate (test code = 3926263613) 62 bpm BSA (test code = 4229679649) 1.47 m2 Ao root diam (test code = 9277527048) 2.50 cm Aortic root (test code = 9434038131) 2.5 cm Ao root annulus (test code = 6019099635) 2.5 cm LVOT diameter (test code = 4373557588) 1.81 cm LVOT area (test code = 7069748028) 2.60 cm2 LVIDD (test code = 8741641236) 3.60 cm Left Ventricular End Diastolic Volume by Teichholz Method (test code = 3655945) 54.5 mL IVS (test code = 3715141293) 1.07 cm Interventricular Septum Diastolic Thickness by 2D (test code = 4161277) 1.07 cm LVPWD (test code = 2508897216) 1.06 cm PW (test code = 2765500726) 1.06 cm 0.6-1.1 EF(Teich) (test code = 7148779951) 67.60 % LVIDS (test code = 0621540314) 2.28 cm Left Ventricular End Systolic Volume by Teichholz Method (test code = 6138035) 17.7 mL FS (test code = 5583027448) 37 % EF - 2D (test code = 71108085) 67.60 % LA size (test code = 3813656109) 4.2 cm LAV(MOD-sp4) (test code = 0272833414) 64.40 mL E wave decelartion time (test code = 7240032135) 0.14 s MV Peak E Natanael (test code = 5281430859) 121.1 cm/s MV stenosis pressure 1/2 time (test code = 4816162209) 37.8 ms MV Peak A Natanael (test code = 4740658820) 47.7 cm/s E/A ratio (test code = 6556399079) 2.50 ratio MV E/e' septal (test code = 5585847557) 7.2 cm/s TR Peak Natanael (test code = 5589281214) 234.8 cm/s Triscuspid Valve Regurgitation Peak Gradient (test code = 3027165500) 22.1 mmHg LVOT stroke volume (test code = 8636855640) 78.90 cm3 LVOT peak natanael (test code = 2499231486) 114.2 cm/s LVOT mn grad (test code = 2403620736) 3.0 mmHg AV LVOT peak gradient (test code = 9070726114) 5.2 mmHg LVOT peak VTI (test code = 1909346746) 30.6 cm LV V1 mean (test code = 8170304894) 82.60 cm/s Aortic valve mean velocity (test code = 8732057521) 143.5 cm/s Ao peak natanael (test code = 4443810886) 206.8 cm/s Ao VTI (test code = 4993574988) 49.0 cm AV area by cont VTI (test code = 9973342103) 1.6 cm2 AV area peak natanael (test code = 9583275613) 1.4 cm2 Ao max PG (test code = 7986435410) 17.10 mm[Hg] AV peak gradient (test code = 0346583316) 17.1 mmHg AV valve area (test code = 9045450279) 1.61 cm2 AV mean gradient (test code = 0854101290) 9.1 mmHg AV regurgitation pressure 1/2 time (test code = 4049802686) 687.2 ms AI dec slope (test code = 7511265369) 166.40 cm/s2 AI max natanael (test code = 5017068368) 390.40 cm/s AI max PG (test code = 7336860783) 60.90 mm[Hg] Radiology Study observation (narrative) (test code = 15390-9) JOSE (test code = JOSE) ?Left?Ventricle: Left ventricle size is normal. Mildly increased wall thickness. Normal wall motion. Hyperdynamic systolic function with a visually estimated EF of greater than 65%. There is restrictive diastolic dysfunction. ?Left?Atrium: Left atrium is mildly dilated. ?Pericardium: Small pericardial effusion present. No indication of cardiac tamponade. ?Tricuspid?Valve: Insufficient tricuspid regurgitation jet to estimate RVSP . ?RA pressure is 0-5 mmHg. ?Aortic?Valve: Mild transvalvular regurgitation. Probable moderate aortic stenosis. Peak velocity 1.9 m/sec. Mean pressure gradient 9.8 mmHg. EFRAIN by continuity equation 1.2 cm2. LVOT 1.7 cm. SVI 41 ml/m2. Left VentricleLeft ventricle size is normal. Mildly increased wall thickness. Normal wall motion. Hyperdynamic systolic function with a visually estimated EF of greater than 65%. There is restrictive diastolic dysfunction.Right VentricleRight ventricle size is normal. Normal systolic function.Left AtriumLeft atrium is mildly dilated.Right AtriumRight atrium size is normal.IVC/SVCIVC diameter is less than or equal to 21 mm and decreases greater than 50% during inspiration; therefore the estimated right atrial pressure is normal (~0-5 mmHg).Mitral ValveMildly thickened leaflets. Mild mitral annular calcification. Trace transvalvular regurgitation.Tricusp id ValveTricuspid valve structure is normal. Trace transvalvular regurgitation. Insufficient tricuspid regurgitation jet to estimate RVSP . RA pressure is 0-5 mmHg.Aortic ValveTricuspid. Mildly thickened cusps. Mildly calcified cusps. Mild transvalvular regurgitation. Probable moderate aortic stenosis. Peak velocity 1.9 m/sec. Mean pressure gradient 9.8 mmHg. EFRAIN by continuity equation 1.2 cm2. LVOT 1.7 cm. SVI 41 ml/m2.Pulmonic ValveNot well visualized. Trace transvalvular regurgitation.Ascendi ng AortaNormal sized aorta.PericardiumSmal l pericardial effusion present. No indication of cardiac tamponade.Study DetailsStudy quality was adequate. A limited echocardiogram was performed using 2D, color flow Doppler and spectral Doppler. [facility]68)(Total Cholesterol, Triglycerides, HDL)2023-08-12 21:43:31* Test Item Value Reference Range Interpretation Comme nts CHOL (test code = 5652977231) 345 mg/dL 120-200 H HDL (test code = 6689533758) 50 mg/dL >=50 L HDLC RATIO (test code = 6380129885) 6.9 <=4.5 H TRIG (test code = 3946952734) 320 mg/dL 30-170 H LDL CHOL (test code = 49657-4) 231 mg/dL <=160 H VLDL (test code = 5206039525) 64 mg/dL 5-60 H Lab Interpretation (test cod e = 88333-5) Abnormal [facility](58414)(Total Cholesterol, Triglycerides, HDL)2023-08-12 21:43:31* Test Item Value Reference Range Interpretation Comme nts CHOL (test code = 7317349865) 345 mg/dL 120-200 H HDL (test code = 9821624458) 50 mg/dL >=50 L HDLC RATIO (test code = 1963012686) 6.9 <=4.5 H TRIG (test code = 5408564085) 320 mg/dL 30-170 H LDL CHOL (test code = 74964-0) 231 mg/dL <=160 H VLDL (test code = 9862930897) 64 mg/dL 5-60 H Lab Interpretation (test cod e = 68843-4) Abnormal [facility] HospitalTROPONIN [id number] 14:34:31* Test Item Value Reference Range Interpretation Comme nts TROPONIN I (test code = 1736465731) 0.006 ng/mL <=0.034 JOSE (test code = JOSE) Reference (Normal) Range (defined by the 99th percentile reference limit): <= 0.034 ng/mL Note: Cardiac troponin begins to rise 3-4 hours after the onset of ischemia. Repeat in 4-6 hours if the sample was drawn within 3-4 hours of the onset of the symptom and found normal. Diagnosis of myocardial injury is made with acute changes in cTn concentrations with at least one serial sample above the 99th percentile upper reference limit (URL), taken together with the patient's clinical presentation. Biotin has been reported to cause a negative bias, interpret results relative to patient's use of biotin. Lab Interpretation (test code = 40959-3) Normal [facility]MINAL [id number] 14:31:53* Test Item Value Reference Range Interpretation Comme nts NT-proBNP (test code = 28181-9) 3130 pg/mL <=125 H JOSE (test code = JOSE) Positive: Heart Failure Likely Lab Interpretation (test code = 59897-4) Abnormal [facility] HospitalMagnesium2023-12-29 14:23:14* Test Item Value Reference Range Interpretation Comme nts MAGNESIUM (test code = 3727285756) 1.9 mg/dL 1.7-2.4 Lab Interpretation (test cod e = 93820-8) Normal [facility] HospitalCOM. METABOLIC PANEL (31087)2023-08-12 14:22:54* Test Item Value Reference Range Interpretation Comme nts NA (test code = 5174537829) 136 mmol/L 135-145 K (test code = 9918544176) 4.6 mmol/L 3.5-5.0 CL (test code = 0898721140) 105 mmol/L 98-108 CO2 TOTAL (test code = 1961241759) 25 mmol/L 23-31 AGAP (test code = 8664437927) 6 2-16 BUN (test code = 8965711447) 17 mg/dL 7-23 GLUCOSE (test code = 2268158211) 149 mg/dL 70-110 H CREATININE (test code = 9071453902) 1.17 mg/dL 0.50-1.04 H TOTAL BILI (test code = 9076088491) 0.9 mg/dL 0.1-1.1 CALCIUM (test code = 8235336613) 9.5 mg/dL 8.6-10.6 T PROTEIN (test code = 5481666495) 7.0 g/dL 6.3-8.2 ALBUMIN (test code = 9656677883) 3.9 g/dL 3.5-5.0 ALK PHOS (test code = 7309318309) 140 U/L 34-122 H ALTv (test code = 1742-6) 13 U/L 5-35 AST(SGOT) (test code = 6759718128) 24 U/L 13-40 eGFR (test code = 79022-5) 48.2 mL/min/1.73m2 CKD-EPI eGFR (2020). Assuming creatinine has been stable day-to-day for at least three months, the eGFR indicates Category G3a (45 - 59 mL/min/1.73 m2) Lab Interpretation (test code = 80207-1) Abnormal [facility] WITH [id number] 13:47:27* Test Item Value Reference Range Interpretation Comme nts WBC (test code = 6690-2) 12.35 See_Comment H [Automated message] The system which generated this result transmitted reference range: 4.30 - 11.10 10*3/?L. The reference range was not used to interpret this result as normal/abnormal. RBC (test code = 789-8) 4.27 See_Comment [Automated message] The system which generated this result transmitted reference range: 3.93 - 5.25 10*6/?L. The reference range was not used to interpret this result as normal/abnormal. HGB (test code = 718-7) 13.3 g/dL 11.6-15.0 HCT (test code = 4544-3) 41.9 % 35.7-45.2 MCV (test code = 787-2) 98.1 fL 80.6-95.5 H MCH (test code = 785-6) 31.1 pg 25.9-32.8 MCHC (test code = 786-4) 31.7 g/dL 31.6-35.1 RDW-SD (test code = 23032-4) 56.2 fL 39.0-49.9 H RDW-CV (test code = 788-0) 15.9 % 12.0-15.5 H PLT (test code = 777-3) 242 See_Comment [Automated message] The system which generated this result transmitted reference range: 166 - 358 10*3/?L. The reference range was not used to interpret this result as normal/abnormal. MPV (test code = 03890-3) 11.8 fL 9.5-12.9 NRBC/100 WBC (test code = 6205219689) 0.0 See_Comment [Automated message] The system which generated this result transmitted reference range: 0.0 - 10.0 /100 WBCs. The reference range was not used to interpret this result as normal/abnormal. NRBC x10^3 (test code = 3822880536) See_Comment [Automated message] The system which generated this result transmitted reference range: 10*3/?L. The reference range was not used to interpret this result as normal/abnormal. GRAN MAT (NEUT) % (test code = 770-8) 81.9 % IMM GRAN % (test code = 3279733270) 0.50 % LYMPH % (test code = 736-9) 7.4 % MONO % (test code = 5905-5) 7.2 % EOS % (test code = 713-8) 2.4 % BASO % (test code = 706-2) 0.6 % GRAN MAT x10^3(ANC) (test code = 0100696619) 10.11 10*3/uL 1.88-7.09 H IMM GRAN x10^3 (test code = 7977270151) 0.06 10*3/uL 0.00-0.06 LYMPH x10^3 (test code = 731-0) 0.91 10*3/uL 1.32-3.29 L MONO x10^3 (test code = 742-7) 0.89 10*3/uL 0.33-0.92 EOS x10^3 (test code = 711-2) 0.30 10*3/uL 0.03-0.39 BASO x10^3 (test code = 704-7) 0.08 10*3/uL 0.01-0.07 H Lab Interpretation (test code = 70614-2) Abnormal [facility] HospitalCOMP. METABOLIC PANEL (01164)2023-08-01 21:26:45* Test Item Value Reference Range Interpretation Comme nts NA (test code = 5842738196) 139 mmol/L 135-145 K (test code = 9001328318) 4.6 mmol/L 3.5-5.0 CL (test code = 4431387836) 105 mmol/L 98-108 CO2 TOTAL (test code = 6324285446) 26 mmol/L 23-31 AGAP (test code = 6177620451) 8 2-16 BUN (test code = 8341694310) 17 mg/dL 7-23 GLUCOSE (test code = 9379837431) 109 mg/dL 70-110 CREATININE (test code = 5112380346) 1.08 mg/dL 0.50-1.04 H TOTAL BILI (test code = 8545738745) 0.6 mg/dL 0.1-1.1 CALCIUM (test code = 6554717584) 9.3 mg/dL 8.6-10.6 T PROTEIN (test code = 6864899677) 5.7 g/dL 6.3-8.2 L ALBUMIN (test code = 4160903040) 3.3 g/dL 3.5-5.0 L ALK PHOS (test code = 7252703515) 141 U/L 34-122 H ALTv (test code = 1742-6) 11 U/L 5-35 AST(SGOT) (test code = 8265047165) 20 U/L 13-40 eGFR (test code = 27460-2) 53.0 mL/min/1.73m2 CKD-EPI eGFR (2020). Assuming creatinine has been stable day-to-day for at least three months, the eGFR indicates Category G3a (45 - 59 mL/min/1.73 m2) Lab Interpretation (test code = 58957-5) Abnormal [facility]AL [id number] 21:22:41* Test Item Value Reference Range Interpretation Comme nts NT-proBNP (test code = 80927-0) 4430 pg/mL <=125 H JOSE (test code = JOSE) Positive: Heart Failure Likely Lab Interpretation (test code = 90752-2) Abnormal [facility] HospitalPROTHROMBIN TIME / [id number] 21:14:20* Test Item Value Reference Range Interpretation Comme nts PROTIME PATIENT (test code = 5964-2) 25.4 See_Comment H [Automated [employer]] The system which generated this result transmitted reference range: 12.0 - 14.7 Seconds. The reference range was not used to interpret this result as normal/abnormal. INR (test code = 6301-6) 2.4 Normal INR <1.1; Warfarin Therapeutic range 2.0 to 3.0 or 2.5 to 3.5, depending upon the indications. Lab Interpretation (test code = 26154-1) Abnormal [facility] HospitalCBC WITH [id number] 20:01:00* Test Item Value Reference Range Interpretation Comme nts WBC (test code = 6690-2) 7.23 See_Comment [[employer]ated [employer]] The system which generated this result transmitted reference range: 4.30 - 11.10 10*3/?L. The reference range was not used to interpret this result as normal/abnormal. RBC (test code = 789-8) 4.18 See_Comment [[employer]ated [employer]] The system which generated this result transmitted reference range: 3.93 - 5.25 10*6/?L. The reference range was not used to interpret this result as normal/abnormal. HGB (test code = 718-7) 12.8 g/dL 11.6-15.0 HCT (test code = 4544-3) 40.8 % 35.7-45.2 MCV (test code = 787-2) 97.6 fL 80.6-95.5 H MCH (test code = 785-6) 30.6 pg 25.9-32.8 MCHC (test code = 786-4) 31.4 g/dL 31.6-35.1 L RDW-SD (test code = 61576-5) 57.9 fL 39.0-49.9 H RDW-CV (test code = 788-0) 16.3 % 12.0-15.5 H PLT (test code = 777-3) 207 See_Comment [Automated messa ge] The system which generated this result transmitted reference range: 166 - 358 10*3/?L. The reference range was not used to interpret this result as normal/abnormal. MPV (test code = 96719-3) 11.2 fL 9.5-12.9 NRBC/100 WBC (test code = 8389619479) 0.0 See_Comment [Automated [employer] ssage] The system which generated this result transmitted reference range: 0.0 - 10.0 /100 WBCs. The reference range was not used to interpret this result as normal/abnormal. NRBC x10^3 (test code = 1266855544) See_Comment [Automated messa ge] The system which generated this result transmitted reference range: 10*3/?L. The reference range was not used to interpret this result as normal/abnormal. GRAN MAT (NEUT) % (test code = 770-8) 73.6 % IMM GRAN % (test code = 5563215128) 0.30 % LYMPH % (test code = 736-9) 11.5 % MONO % (test code = 5905-5) 9.7 % EOS % (test code = 713-8) 4.1 % BASO % (test code = 706-2) 0.8 % GRAN MAT x10^3(ANC) (test code = 9424649613) 5.32 10*3/uL 1.88-7.09 IMM GRAN x10^3 (test code = 2491129152) 0.00-0.06 LYMPH x10^3 (test code = 731-0) 0.83 10*3/uL 1.32-3.29 L MONO x10^3 (test code = 742-7) 0.70 10*3/uL 0.33-0.92 EOS x10^3 (test code = 711-2) 0.30 10*3/uL 0.03-0.39 BASO x10^3 (test code = 704-7) 0.06 10*3/uL 0.01-0.07 Lab Interpretation (test code = 69289-3) Abnormal [facility] WITH [id number] 11:17:26* Test Item Value Reference Range Interpretation Comme nts WBC (test code = 6690-2) 10.48 See_Comment [Automated messa ge] The system which generated this result transmitted reference range: 4.30 - 11.10 10*3/?L. The reference range was not used to interpret this result as normal/abnormal. RBC (test code = 789-8) 4.71 See_Comment [Automated messa ge] The system which generated this result transmitted reference range: 3.93 - 5.25 10*6/?L. The reference range was not used to interpret this result as normal/abnormal. HGB (test code = 718-7) 14.2 g/dL 11.6-15.0 HCT (test code = 4544-3) 44.7 % 35.7-45.2 MCV (test code = 787-2) 94.9 fL 80.6-95.5 MCH (test code = 785-6) 30.1 pg 25.9-32.8 MCHC (test code = 786-4) 31.8 g/dL 31.6-35.1 RDW-SD (test code = 94985-3) 61.5 fL 39.0-49.9 H RDW-CV (test code = 788-0) 17.4 % 12.0-15.5 H PLT (test code = 777-3) 226 See_Comment [Automated messa ge] The system which generated this result transmitted reference range: 166 - 358 10*3/?L. The reference range was not used to interpret this result as normal/abnormal. MPV (test code = 80893-9) 12.0 fL 9.5-12.9 NRBC/100 WBC (test code = 2740155673) 0.0 See_Comment [Automated [employer] ssage] The system which generated this result transmitted reference range: 0.0 - 10.0 /100 WBCs. The reference range was not used to interpret this result as normal/abnormal. NRBC x10^3 (test code = 9293787483) See_Comment [Automated messa ge] The system which generated this result transmitted reference range: 10*3/?L. The reference range was not used to interpret this result as normal/abnormal. GRAN MAT (NEUT) % (test code = 770-8) 80.4 % IMM GRAN % (test code = 9846925538) 0.50 % LYMPH % (test code = 736-9) 7.8 % MONO % (test code = 5905-5) 8.0 % EOS % (test code = 713-8) 2.7 % BASO % (test code = 706-2) 0.6 % GRAN MAT x10^3(ANC) (test code = 1363628458) 8.43 10*3/uL 1.88-7.09 H IMM GRAN x10^3 (test code = 2313438497) 0.05 10*3/uL 0.00-0.06 LYMPH x10^3 (test code = 731-0) 0.82 10*3/uL 1.32-3.29 L MONO x10^3 (test code = 742-7) 0.84 10*3/uL 0.33-0.92 EOS x10^3 (test code = 711-2) 0.28 10*3/uL 0.03-0.39 BASO x10^3 (test code = 704-7) 0.06 10*3/uL 0.01-0.07 Lab Interpretation (test code = 10693-0) Abnormal [facility] WITH [id number] 11:17:26* Test Item Value Reference Range Interpretation Comme nts WBC (test code = 6690-2) 10.48 See_Comment [Automated messa ge] The system which generated this result transmitted reference range: 4.30 - 11.10 10*3/?L. The reference range was not used to interpret this result as normal/abnormal. RBC (test code = 789-8) 4.71 See_Comment [Automated [employer] ge] The system which generated this result transmitted reference range: 3.93 - 5.25 10*6/?L. The reference range was not used to interpret this result as normal/abnormal. HGB (test code = 718-7) 14.2 g/dL 11.6-15.0 HCT (test code = 4544-3) 44.7 % 35.7-45.2 MCV (test code = 787-2) 94.9 fL 80.6-95.5 MCH (test code = 785-6) 30.1 pg 25.9-32.8 MCHC (test code = 786-4) 31.8 g/dL 31.6-35.1 RDW-SD (test code = 45435-7) 61.5 fL 39.0-49.9 H RDW-CV (test code = 788-0) 17.4 % 12.0-15.5 H PLT (test code = 777-3) 226 See_Comment [Automated [employer] ge] The system which generated this result transmitted reference range: 166 - 358 10*3/?L. The reference range was not used to interpret this result as normal/abnormal. MPV (test code = 29841-7) 12.0 fL 9.5-12.9 NRBC/100 WBC (test code = 6313931577) 0.0 See_Comment [Automated [employer] ssage] The system which generated this result transmitted reference range: 0.0 - 10.0 /100 WBCs. The reference range was not used to interpret this result as normal/abnormal. NRBC x10^3 (test code = 5043640712) See_Comment [Automated [employer] ge] The system which generated this result transmitted reference range: 10*3/?L. The reference range was not used to interpret this result as normal/abnormal. GRAN MAT (NEUT) % (test code = 770-8) 80.4 % IMM GRAN % (test code = 5634890057) 0.50 % LYMPH % (test code = 736-9) 7.8 % MONO % (test code = 5905-5) 8.0 % EOS % (test code = 713-8) 2.7 % BASO % (test code = 706-2) 0.6 % GRAN MAT x10^3(ANC) (test code = 0284624011) 8.43 10*3/uL 1.88-7.09 H IMM GRAN x10^3 (test code = 4224678655) 0.05 10*3/uL 0.00-0.06 LYMPH x10^3 (test code = 731-0) 0.82 10*3/uL 1.32-3.29 L MONO x10^3 (test code = 742-7) 0.84 10*3/uL 0.33-0.92 EOS x10^3 (test code = 711-2) 0.28 10*3/uL 0.03-0.39 BASO x10^3 (test code = 704-7) 0.06 10*3/uL 0.01-0.07 Lab Interpretation (test code = 16479-1) Abnormal [facility] METABOLIC PANEL (NA, K, CL, CO2, GLUCOSE, BUN, CREATININE, CA)2023-06-01 10:48:20* Test Item Value Reference Range Interpretation Comme nts NA (test code = 8819756177) 130 mmol/L 135-145 L K (test code = 7884534943) 4.1 mmol/L 3.5-5.0 CL (test code = 7134358089) 99 mmol/L 98-108 CO2 TOTAL (test code = 6498887928) 25 mmol/L 23-31 AGAP (test code = 6787225687) 6 2-16 BUN (test code = 2762432981) 10 mg/dL 7-23 GLUCOSE (test code = 1213864027) 98 mg/dL 70-110 CREATININE (test code = 2716136730) 1.03 mg/dL 0.50-1.04 CALCIUM (test code = 2623717225) 8.8 mg/dL 8.6-10.6 eGFR (test code = 2124740140) 52.0 mL/min/1.73m2 JOSE (test code = JOSE) Association of Glomerular Filtration Rate (GFR) and Staging of Kidney Disease* + --+ --+ ------+| GFR (mL/min/1.73 m2) ?| With Kidney Damage ?| ?Without Kidney Damage+ --------+ --------+ +| ?>90 ?| ?Stage one ?| ? Normal ?+ ---+ ---+ -------+| ?60-89 ?| ?Stage two ?| ? Decreased GFR ? + --+ --+ ------+| ?30-59 ?| ?Stage three ?| ? Stage three ? + --+ --+ ------+| ?15-29 ?| ?Stage four ? | ? Stage four ?+ ---+ ---+ -------+| ?<15 (or dialysis) ? ?| ?Stage five ? | ? Stage five ?+ ---+ ---+ -------+ *Each stage assumes the associated GFR level has been in effect for at least three months. ?Stages 1 to 5, with or without kidney disease, indicate chronic kidney disease. Notes: Determination of stages one and two (with eGFR >59mL/min/1.73 m2) requires estimation of kidney damage for at least three months as defined by structural or functional abnormalities of the kidney, manifested by either:Pathological abnormalities or Markers of kidney damage (including abnormalities in the composition of the blood or urine or abnormalities in imaging tests). Lab Interpretation (test code = 81830-4) Abnormal [facility] METABOLIC PANEL (NA, K, CL, CO2, GLUCOSE, BUN, CREATININE, CA)2023-06-01 10:48:20* Test Item Value Reference Range Interpretation Comme nts NA (test code = 9120194670) 130 mmol/L 135-145 L K (test code = 0148173518) 4.1 mmol/L 3.5-5.0 CL (test code = 1527638756) 99 mmol/L 98-108 CO2 TOTAL (test code = 9651580167) 25 mmol/L 23-31 AGAP (test code = 3238163342) 6 2-16 BUN (test code = 6979891583) 10 mg/dL 7-23 GLUCOSE (test code = 3481746698) 98 mg/dL 70-110 CREATININE (test code = 3804547119) 1.03 mg/dL 0.50-1.04 CALCIUM (test code = 1778921131) 8.8 mg/dL 8.6-10.6 eGFR (test code = 8465561325) 52.0 mL/min/1.73m2 JOSE (test code = JOSE) Association of Glomerular Filtration Rate (GFR) and Staging of Kidney Disease* + --+ --+ ------+| GFR (mL/min/1.73 m2) ?| With Kidney Damage ?| ?Without Kidney Damage+ --------+ --------+ +| ?>90 ?| ?Stage one ?| ? Normal ?+ ---+ ---+ -------+| ?60-89 ?| ?Stage two ?| ? Decreased GFR ? + --+ --+ ------+| ?30-59 ?| ?Stage three ?| ? Stage three ? + --+ --+ ------+| ?15-29 ?| ?Stage four ? | ? Stage four ?+ ---+ ---+ -------+| ?<15 (or dialysis) ? ?| ?Stage five ? | ? Stage five ?+ ---+ ---+ -------+ *Each stage assumes the associated GFR level has been in effect for at least three months. ?Stages 1 to 5, with or without kidney disease, indicate chronic kidney disease. Notes: Determination of stages one and two (with eGFR >59mL/min/1.73 m2) requires estimation of kidney damage for at least three months as defined by structural or functional abnormalities of the kidney, manifested by either:Pathological abnormalities or Markers of kidney damage (including abnormalities in the composition of the blood or urine or abnormalities in imaging tests). Lab Interpretation (test code = 98689-1) [facility] [id number] 10:45:01* Test Item Value Reference Range Interpretation Comme juwan TOVAR PATIENT (test code = 5964-2) 19.7 See_Comment H [Automated [employer]] The system which generated this result transmitted reference range: 10.1 - 12.6 Seconds. The reference range was not used to interpret this result as normal/abnormal. INR (test code = 6301-6) 1.7 Normal INR <1.1; Warfarin Therapeutic range 2.0 to 3.0 or 2.5 to 3.5, depending upon the indications. Lab Interpretation (test code = 72249-2) [facility] [id number] 10:45:01* Test Item Value Reference Range Interpretation Comme nts PROTIME PATIENT (test code = 5964-2) 19.7 See_Comment H [Automated messa ge] The system which generated this result transmitted reference range: 10.1 - 12.6 Seconds. The reference range was not used to interpret this result as normal/abnormal. INR (test code = 6301-6) 1.7 Normal INR <1.1; Warfarin Therapeutic range 2.0 to 3.0 or 2.5 to 3.5, depending upon the indications. Lab Interpretation (test code = 55273-8) [facility] Test Item Value Reference Range Interpretation Comme nts APTT Patient (test code = 3173-2) 71 See_Comment H [Automated messa ge] The system which generated this result transmitted reference range: 26 - 36 Seconds. The reference range was not used to interpret this result as normal/abnormal. Lab Interpretation (test code = 13048-1) [facility]* Test Item Value Reference Range Interpretation Comme nts APTT Patient (test code = 3173-2) 71 See_Comment H [Automated messa ge] The system which generated this result transmitted reference range: 26 - 36 Seconds. The reference range was not used to interpret this result as normal/abnormal. Lab Interpretation (test code = 13784-5) [facility]* Test Item Value Reference Range Interpretation Comme nts APTT Patient (test code = 3173-2) 71 See_Comment H [Automated messa ge] The system which generated this result transmitted reference range: 26 - 36 Seconds. The reference range was not used to interpret this result as normal/abnormal. Lab Interpretation (test code = 11501-8) Abnormal [place] [id number] 20:19:30* Test Item Value Reference Range Interpretation Comme nts APTT Patient (test code = 3173-2) 78 See_Comment H [Automated messa ge] The system which generated this result transmitted reference range: 26 - 36 Seconds. The reference range was not used to interpret this result as normal/abnormal. Lab Interpretation (test code = 80167-4) [facility] 20:19:30* Test Item Value Reference Range Interpretation Comme nts APTT Patient (test code = 3173-2) 78 See_Comment H [Automated messa ge] The system which generated this result transmitted reference range: 26 - 36 Seconds. The reference range was not used to interpret this result as normal/abnormal. Lab Interpretation (test code = 66448-6) [facility]* Test Item Value Reference Range Interpretation Comme nts MAGNESIUM (test code = 4483313244) 1.2 mg/dL 1.7-2.4 L Lab Interpretation (test cod e = 75469-1) Abnormal [facility]2023-10-12 16:42:44* Test Item Value Reference Range Interpretation Comme nts MAGNESIUM (test code = 4650715815) 1.2 mg/dL 1.7-2.4 L Lab Interpretation (test cod e = 04856-2) [facility] 16:42:44* Test Item Value Reference Range Interpretation Comme nts MAGNESIUM (test code = 8716914404) 1.2 mg/dL 1.7-2.4 L Lab Interpretation (test cod e = 97636-1) [facility] [id number] 13:11:40* Test Item Value Reference Range Interpretation Comme nts TROPONIN I (test code = 3172980571) 0.129 ng/mL <=0.034 H JOSE (test code = JOSE) Reference (Normal) Range (defined by the 99th percentile reference limit): <= 0.034 ng/mL Note: Cardiac troponin begins to rise 3-4 hours after the onset of ischemia. Repeat in 4-6 hours if the sample was drawn within 3-4 hours of the onset of the symptom and found normal. Diagnosis of myocardial injury is made with acute changes in cTn concentrations with at least one serial sample above the 99th percentile upper reference limit (URL), taken together with the patient's clinical presentation. Biotin has been reported to cause a negative bias, interpret results relative to patient's use of biotin. Lab Interpretation (test code = 98944-0) Abnormal [facility] [id number] 13:11:40* Test Item Value Reference Range Interpretation Comme nts TROPONIN I (test code = 6063719426) 0.129 ng/mL <=0.034 H JOSE (test code = JOSE) Reference (Normal) Range (defined by the 99th percentile reference limit): <= 0.034 ng/mL Note: Cardiac troponin begins to rise 3-4 hours after the onset of ischemia. Repeat in 4-6 hours if the sample was drawn within 3-4 hours of the onset of the symptom and found normal. Diagnosis of myocardial injury is made with acute changes in cTn concentrations with at least one serial sample above the 99th percentile upper reference limit (URL), taken together with the patient's clinical presentation. Biotin has been reported to cause a negative bias, interpret results relative to patient's use of biotin. Lab Interpretation (test code = 65120-7) Abnormal [facility] [id number] 13:11:40* Test Item Value Reference Range Interpretation Comme nts TROPONIN I (test code = 3709645070) 0.129 ng/mL <=0.034 H JOSE (test code = JOSE) Reference (Normal) Range (defined by the 99th percentile reference limit): <= 0.034 ng/mL Note: Cardiac troponin begins to rise 3-4 hours after the onset of ischemia. Repeat in 4-6 hours if the sample was drawn within 3-4 hours of the onset of the symptom and found normal. Diagnosis of myocardial injury is made with acute changes in cTn concentrations with at least one serial sample above the 99th percentile upper reference limit (URL), taken together with the patient's clinical presentation. Biotin has been reported to cause a negative bias, interpret results relative to patient's use of biotin. Lab Interpretation (test code = 15868-9) Abnormal [facility] METABOLIC PANEL (NA, K, CL, CO2, GLUCOSE, BUN, CREATININE, CA)2023-05-26 13:03:21* Test Item Value Reference Range Interpretation Comme nts NA (test code = 2989585114) 126 mmol/L 135-145 L K (test code = 5687315084) 2.6 mmol/L 3.5-5.0 LL CL (test code = 0762696504) 93 mmol/L 98-108 L CO2 TOTAL (test code = 5373555754) 26 mmol/L 23-31 AGAP (test code = 0753957085) 7 2-16 BUN (test code = 0818323843) 17 mg/dL 7-23 GLUCOSE (test code = 1886665364) 100 mg/dL 70-110 CREATININE (test code = 6014998152) 1.25 mg/dL 0.50-1.04 H CALCIUM (test code = 2571656786) 7.6 mg/dL 8.6-10.6 L eGFR (test code = 2432124698) 41.6 mL/min/1.73m2 JOSE (test code = JOSE) Association of Glomerular Filtration Rate (GFR) and Staging of Kidney Disease* + --+ --+ ------+| GFR (mL/min/1.73 m2) ?| With Kidney Damage ?| ?Without Kidney Damage+ --------+ --------+ +| ?>90 ?| ?Stage one ?| ? Normal ?+ ---+ ---+ -------+| ?60-89 ?| ?Stage two ?| ? Decreased GFR ? + --+ --+ ------+| ?30-59 ?| ?Stage three ?| ? Stage three ? + --+ --+ ------+| ?15-29 ?| ?Stage four ? | ? Stage four ?+ ---+ ---+ -------+| ?<15 (or dialysis) ? ?| ?Stage five ? | ? Stage five ?+ ---+ ---+ -------+ *Each stage assumes the associated GFR level has been in effect for at least three months. ?Stages 1 to 5, with or without kidney disease, indicate chronic kidney disease. Notes: Determination of stages one and two (with eGFR >59mL/min/1.73 m2) requires estimation of kidney damage for at least three months as defined by structural or functional abnormalities of the kidney, manifested by either:Pathological abnormalities or Markers of kidney damage (including abnormalities in the composition of the blood or urine or abnormalities in imaging tests). Lab Interpretation (test code = 07359-5) [facility] (NA, K, CL, CO2, GLUCOSE, BUN, CREATININE, CA)2023-05-26 13:03:21* Test Item Value Reference Range Interpretation Comme nts NA (test code = 5022939608) 126 mmol/L 135-145 L K (test code = 0046756156) 2.6 mmol/L 3.5-5.0 LL CL (test code = 4174909562) 93 mmol/L 98-108 L CO2 TOTAL (test code = 6314959603) 26 mmol/L 23-31 AGAP (test code = 3418479038) 7 2-16 BUN (test code = 9601479381) 17 mg/dL 7-23 GLUCOSE (test code = 4893712524) 100 mg/dL 70-110 CREATININE (test code = 6071023779) 1.25 mg/dL 0.50-1.04 H CALCIUM (test code = 4056957490) 7.6 mg/dL 8.6-10.6 L eGFR (test code = 2029699238) 41.6 mL/min/1.73m2 JOSE (test code = JOSE) Association of Glomerular Filtration Rate (GFR) and Staging of Kidney Disease* + --+ --+ ------+| GFR (mL/min/1.73 m2) ?| With Kidney Damage ?| ?Without Kidney Damage+ --------+ --------+ +| ?>90 ?| ?Stage one ?| ? Normal ?+ ---+ ---+ -------+| ?60-89 ?| ?Stage two ?| ? Decreased GFR ? + --+ --+ ------+| ?30-59 ?| ?Stage three ?| ? Stage three ? + --+ --+ ------+| ?15-29 ?| ?Stage four ? | ? Stage four ?+ ---+ ---+ -------+| ?<15 (or dialysis) ? ?| ?Stage five ? | ? Stage five ?+ ---+ ---+ -------+ *Each stage assumes the associated GFR level has been in effect for at least three months. ?Stages 1 to 5, with or without kidney disease, indicate chronic kidney disease. Notes: Determination of stages one and two (with eGFR >59mL/min/1.73 m2) requires estimation of kidney damage for at least three months as defined by structural or functional abnormalities of the kidney, manifested by either:Pathological abnormalities or Markers of kidney damage (including abnormalities in the composition of the blood or urine or abnormalities in imaging tests). Lab Interpretation (test code = 84964-2) [facility] 02:56:41* Test Item Value Reference Range Interpretation Comme [facility] APTT Patient (test code = 3173-2) 93 See_Comment H [Automated messa ge] The system which generated this result transmitted reference range: 26 - 36 Seconds. The reference range was not used to interpret this result as normal/abnormal. Lab Interpretation (test code = 55382-9) [facility] / [id number] 02:56:41* Test Item Value Reference Range Interpretation Comme [facility] PROTIME PATIENT (test code = 5964-2) 33.9 See_Comment H [Automated messa ge] The system which generated this result transmitted reference range: 10.1 - 12.6 Seconds. The reference range was not used to interpret this result as normal/abnormal. INR (test code = 6301-6) 2.9 Normal INR <1.1; Warfarin Therapeutic range 2.0 to 3.0 or 2.5 to 3.5, depending upon the indications. Lab Interpretation (test code = 22390-9) [facility]* Test Item Value Reference Range Interpretation Comme [facility] APTT Patient (test code = 3173-2) 93 See_Comment H [Automated messa ge] The system which generated this result transmitted reference range: 26 - 36 Seconds. The reference range was not used to interpret this result as normal/abnormal. Lab Interpretation (test code = 33272-1) [facility] / [id number] 02:56:41* Test Item Value Reference Range Interpretation Comme [facility] PROTIME PATIENT (test code = 5964-2) 33.9 See_Comment H [Automated messa ge] The system which generated this result transmitted reference range: 10.1 - 12.6 Seconds. The reference range was not used to interpret this result as normal/abnormal. INR (test code = 6301-6) 2.9 Normal INR <1.1; Warfarin Therapeutic range 2.0 to 3.0 or 2.5 to 3.5, depending upon the indications. Lab Interpretation (test code = 19167-3) [facility] 20:19:31* Test Item Value Reference Range Interpretation Comme nts Height (test code = 3110595354) 59 in Weight (test code = 4688709101) 133 lbs Systolic BP (test code = 2002713049) 148 mmHg Diastolic BP (test code = 8906175250) 88 mmHg Heart Rate (test code = 8366421371) 123 bpm BSA (test code = 5414020727) 1.55 m2 IVS (test code = 0695890545) 1.70 cm Interventricular Septum Diastolic Thickness by 2D (test code = 2714151) 1.70 cm LVIDD (test code = 6604702469) 2.34 cm Left Ventricular End Diastolic Volume by Teichholz Method (test code = 3662245) 18.9 mL LVPWD (test code = 3497576443) 1.72 cm PW (test code = 7021793143) 1.72 cm 0.6-1.1 EF(Teich) (test code = 3599509711) 52.90 % LVIDS (test code = 9453698001) 1.74 cm Left Ventricular End Systolic Volume by Teichholz Method (test code = 8788618) 8.9 mL FS (test code = 4916358198) 26 % EF - 2D (test code = 48566562) 52.90 % LVOT diameter (test code = 7160110578) 1.79 cm LVOT area (test code = 2828398610) 2.50 cm2 Ao root diam (test code = 5057079193) 3.10 cm Aortic root (test code = 7359643231) 3.1 cm Ao root annulus (test code = 2247697759) 3.1 cm LA size (test code = 2393913010) 3.7 cm LAV(MOD-sp2) (test code = 8073289492) 71.90 mL MV Peak E Natanael (test code = 3894341036) 128.9 cm/s MV Peak A Natanael (test code = 5980686237) 59.3 cm/s E/A ratio (test code = 2688194973) 2.17 ratio MV valve area p 1/2 method (test code = 2835191571) 5.50 cm2 MV dec slope (test code = 6912249445) 947.60 cm/s2 MV P1/2t max natanael (test code = 2337384197) 129.40 cm/s MV Prop V (test code = 7118705682) 45.10 cm/s Tapse (test code = 1922237510) 2.23 cm LVOT stroke volume (test code = 1131924326) 48.30 cm3 LVOT peak natanael (test code = 6896994882) 101.8 cm/s LVOT mn grad (test code = 1078429009) 2.2 mmHg AV LVOT peak gradient (test code = 1905922159) 4.1 mmHg LVOT peak VTI (test code = 1848380192) 19.2 cm LV V1 mean (test code = 3410133299) 69.50 cm/s Aortic valve mean velocity (test code = 8337843458) 143.0 cm/s Ao peak natanael (test code = 2814439865) 222.6 cm/s Ao VTI (test code = 4415549480) 44.4 cm AV area by cont VTI (test code = 9562235148) 1.1 cm2 AV area peak natanael (test code = 6425531920) 1.2 cm2 Ao max PG (test code = 3933947153) 19.80 mm[Hg] AV peak gradient (test code = 8743111609) 19.8 mmHg AV valve area (test code = 5285633761) 1.09 cm2 AV mean gradient (test code = 2347700891) 9.5 mmHg AV regurgitation pressure 1/2 time (test code = 3389443445) 765.9 ms AI dec slope (test code = 1362058879) 144.40 cm/s2 AI max natanael (test code = 9705005244) 377.50 cm/s AI max PG (test code = 0955638433) 57.00 mm[Hg] LA Volume Index (BP) (test code = 0614017776) 56.4 mL/m2 LA volume (BP) (test code = [id number]) 87.5 mL LAV(MOD-sp4) (test code = 8845538983) 76.40 mL Radiology Study observation (narrative) (test code = 77118-1) JOSE (test code = JOSE) ?Left?Ventricle: Left ventricle size is normal. Increased wall thickness. There is moderate concentric hypertrophy. Septal motion is normal. Normal wall motion. Hyperdynamic systolic function with a visually estimated EF of greater than 65%. ?Right?Ventricle: Right ventricle size is normal. Normal wall thickness. Normal systolic function. TAPSE is 2.23 cm. ?Left?Atrium: Left atrium is severely dilated. Left atrium volume index is 56.4 mL/m2. ?Aortic?Valve: Not well visualized. Moderately thickened cusps. Mild transvalvular regurgitation. PHT is 725 msec. Consistent with moderate aortic stenosis. AV mean gradient is 9.5 mmHg. AV peak gradient is 19.8 mmHg. LVOT diameter is 1.79 cm. SVi is 31 ml/m2. AV area by continuity VTI is 1.1 cm2. ?Tricuspid?Valve: Trace transvalvular regurgitation. Insufficient tricuspid regurgitation jet to estimate RVSP . ?IVC/SVC: IVC was not well visualized. Left VentricleLeft ventricle size is normal. Increased wall thickness. There is moderate concentric hypertrophy. Septal motion is normal. Normal wall motion. Hyperdynamic systolic function with a visually estimated EF of greater than 65%. Unable to assess diastolic function due to arrhythmia. No significant pressure gradient across the LVOT.Right VentricleRight ventricle size is normal. Normal wall thickness. Normal systolic function. TAPSE is 2.23 cm.Left AtriumLeft atrium is severely dilated. Left atrium volume index is 56.4 mL/m2.Right AtriumNot well visualized. Grossly dilatedIVC/SVCIVC was not well visualized.Mitral ValveMitral valve structure is normal. Mild mitral annular calcification. Mildly calcified subvalvular apparatus. Trace transvalvular regurgitation. No stenosis.Tricuspid ValveTricuspid valve structure is normal. Trace transvalvular regurgitation. Insufficient tricuspid regurgitation jet to estimate RVSP . No stenosis.Aortic ValveNot well visualized. Moderately thickened cusps. Mild transvalvular regurgitation. PHT is 725 msec. Consistent with moderate aortic stenosis. AV mean gradient is 9.5 mmHg. AV peak gradient is 19.8 mmHg. LVOT diameter is 1.79 cm. SVi is 31 ml/m2. AV area by continuity VTI is 1.1 cm2.Pulmonic ValveNot well visualized. Trace transvalvular regurgitation. No stenosis.Ascending AortaNormal sized annulus and sinus of Valsalva.PericardiumE vidence of epicardial fat. No pericardial effusion.Study DetailsStudy quality was adequate. A complete echocardiogram was performed using 2D. [facility] 20:19:31* Test Item Value Reference Range Interpretation Comme nts Height (test code = 7908422890) 59 in Weight (test code = 0814379614) 133 lbs Systolic BP (test code = 0562109411) 148 mmHg Diastolic BP (test code = 5734781284) 88 mmHg Heart Rate (test code = 5722592765) 123 bpm BSA (test code = 9158272255) 1.55 m2 IVS (test code = 2126525426) 1.70 cm Interventricular Septum Diastolic Thickness by 2D (test code = 1542953) 1.70 cm LVIDD (test code = 4778953454) 2.34 cm Left Ventricular End Diastolic Volume by Teichholz Method (test code = 5012284) 18.9 mL LVPWD (test code = 0817030222) 1.72 cm PW (test code = 1924954474) 1.72 cm 0.6-1.1 EF(Teich) (test code = 3120904373) 52.90 % LVIDS (test code = 8992739324) 1.74 cm Left Ventricular End Systolic Volume by Teichholz Method (test code = 8461425) 8.9 mL FS (test code = 6851510190) 26 % EF - 2D (test code = 67281427) 52.90 % LVOT diameter (test code = 4143794951) 1.79 cm LVOT area (test code = 0317189937) 2.50 cm2 Ao root diam (test code = 3066017277) 3.10 cm Aortic root (test code = 7519722133) 3.1 cm Ao root annulus (test code = 1577945038) 3.1 cm LA size (test code = 3082193833) 3.7 cm LAV(MOD-sp2) (test code = 1696124577) 71.90 mL MV Peak E Natanael (test code = 3196271011) 128.9 cm/s MV Peak A Natanael (test code = 8886178041) 59.3 cm/s E/A ratio (test code = 0680431143) 2.17 ratio MV valve area p 1/2 method (test code = 9140564659) 5.50 cm2 MV dec slope (test code = 3239533184) 947.60 cm/s2 MV P1/2t max natanael (test code = 4076434059) 129.40 cm/s MV Prop V (test code = 0778030732) 45.10 cm/s Tapse (test code = 3075761898) 2.23 cm LVOT stroke volume (test code = 0479267226) 48.30 cm3 LVOT peak natanael (test code = 0447221252) 101.8 cm/s LVOT mn grad (test code = 4875504772) 2.2 mmHg AV LVOT peak gradient (test code = 4308828665) 4.1 mmHg LVOT peak VTI (test code = 1079904177) 19.2 cm LV V1 mean (test code = 5620075986) 69.50 cm/s Aortic valve mean velocity (test code = 9206560610) 143.0 cm/s Ao peak natanael (test code = 9667689130) 222.6 cm/s Ao VTI (test code = 2236021113) 44.4 cm AV area by cont VTI (test code = 9603615804) 1.1 cm2 AV area peak natanael (test code = 5324538038) 1.2 cm2 Ao max PG (test code = 9850813745) 19.80 mm[Hg] AV peak gradient (test code = 6806191968) 19.8 mmHg AV valve area (test code = 0349179526) 1.09 cm2 AV mean gradient (test code = 4844362888) 9.5 mmHg AV regurgitation pressure 1/2 time (test code = 0879477392) 765.9 ms AI dec slope (test code = 7791506326) 144.40 cm/s2 AI max natanael (test code = 3840054716) 377.50 cm/s AI max PG (test code = 3993405215) 57.00 mm[Hg] LA Volume Index (BP) (test code = 4809301111) 56.4 mL/m2 LA volume (BP) (test code = 9542096883) 87.5 mL LAV(MOD-sp4) (test code = 9561451374) 76.40 mL Radiology Study observation (narrative) (test code = 77363-5) JOSE (test code = JOSE) ?Left?Ventricle: Left ventricle size is normal. Increased wall thickness. There is moderate concentric hypertrophy. Septal motion is normal. Normal wall motion. Hyperdynamic systolic function with a visually estimated EF of greater than 65%. ?Right?Ventricle: Right ventricle size is normal. Normal wall thickness. Normal systolic function. TAPSE is 2.23 cm. ?Left?Atrium: Left atrium is severely dilated. Left atrium volume index is 56.4 mL/m2. ?Aortic?Valve: Not well visualized. Moderately thickened cusps. Mild transvalvular regurgitation. PHT is 725 msec. Consistent with moderate aortic stenosis. AV mean gradient is 9.5 mmHg. AV peak gradient is 19.8 mmHg. LVOT diameter is 1.79 cm. SVi is 31 ml/m2. AV area by continuity VTI is 1.1 cm2. ?Tricuspid?Valve: Trace transvalvular regurgitation. Insufficient tricuspid regurgitation jet to estimate RVSP . ?IVC/SVC: IVC was not well visualized. Left VentricleLeft ventricle size is normal. Increased wall thickness. There is moderate concentric hypertrophy. Septal motion is normal. Normal wall motion. Hyperdynamic systolic function with a visually estimated EF of greater than 65%. Unable to assess diastolic function due to arrhythmia. No significant pressure gradient across the LVOT.Right VentricleRight ventricle size is normal. Normal wall thickness. Normal systolic function. TAPSE is 2.23 cm.Left AtriumLeft atrium is severely dilated. Left atrium volume index is 56.4 mL/m2.Right AtriumNot well visualized. Grossly dilatedIVC/SVCIVC was not well visualized.Mitral ValveMitral valve structure is normal. Mild mitral annular calcification. Mildly calcified subvalvular apparatus. Trace transvalvular regurgitation. No stenosis.Tricuspid ValveTricuspid valve structure is normal. Trace transvalvular regurgitation. Insufficient tricuspid regurgitation jet to estimate RVSP . No stenosis.Aortic ValveNot well visualized. Moderately thickened cusps. Mild transvalvular regurgitation. PHT is 725 msec. Consistent with moderate aortic stenosis. AV mean gradient is 9.5 mmHg. AV peak gradient is 19.8 mmHg. LVOT diameter is 1.79 cm. SVi is 31 ml/m2. AV area by continuity VTI is 1.1 cm2.Pulmonic ValveNot well visualized. Trace transvalvular regurgitation. No stenosis.Ascending AortaNormal sized annulus and sinus of Valsalva.PericardiumE vidence of epicardial fat. No pericardial effusion.Study DetailsStudy quality was adequate. A complete echocardiogram was performed using 2D. [facility] [id number] 13:40:02* Test Item Value Reference Range Interpretation Comme nts TROPONIN I (test code = 2614268752) 0.123 ng/mL <=0.034 H JOSE (test code = JOSE) Reference (Normal) Range (defined by the 99th percentile reference limit): <= 0.034 ng/mL Note: Cardiac troponin begins to rise 3-4 hours after the onset of ischemia. Repeat in 4-6 hours if the sample was drawn within 3-4 hours of the onset of the symptom and found normal. Diagnosis of myocardial injury is made with acute changes in cTn concentrations with at least one serial sample above the 99th percentile upper reference limit (URL), taken together with the patient's clinical presentation. Biotin has been reported to cause a negative bias, interpret results relative to patient's use of biotin. Lab Interpretation (test code = 63301-9) Abnormal [facility] [id number] 13:40:02* Test Item Value Reference Range Interpretation Comme nts TROPONIN I (test code = 9037110137) 0.123 ng/mL <=0.034 H JOSE (test code = JOSE) Reference (Normal) Range (defined by the 99th percentile reference limit): <= 0.034 ng/mL Note: Cardiac troponin begins to rise 3-4 hours after the onset of ischemia. Repeat in 4-6 hours if the sample was drawn within 3-4 hours of the onset of the symptom and found normal. Diagnosis of myocardial injury is made with acute changes in cTn concentrations with at least one serial sample above the 99th percentile upper reference limit (URL), taken together with the patient's clinical presentation. Biotin has been reported to cause a negative bias, interpret results relative to patient's use of biotin. Lab Interpretation (test code = 43167-2) Abnormal [facility] Metabolic Panel (NA, K, CL, CO2, GLUCOSE, BUN, CREATININE, CA)2023-05-24 13:28:19* Test Item Value Reference Range Interpretation Comme nts NA (test code = 2313184224) 131 mmol/L 135-145 L K (test code = 2356060755) 4.2 mmol/L 3.5-5.0 Slight hemolysis CL (test code = 1666682965) 99 mmol/L 98-108 CO2 TOTAL (test code = 0085934532) 21 mmol/L 23-31 L AGAP (test code = 0032006936) 11 2-16 BUN (test code = 4787757028) 11 mg/dL 7-23 Slight hemolysis GLUCOSE (test code = 6278082357) 132 mg/dL 70-110 H CREATININE (test code = 1640859871) 1.00 mg/dL 0.50-1.04 CALCIUM (test code = 1316108058) 9.8 mg/dL 8.6-10.6 eGFR (test code = 8728012113) 53.8 mL/min/1.73m2 JOSE (test code = JOSE) Association of Glomerular Filtration Rate (GFR) and Staging of Kidney Disease* + -----+ --------+ +| GFR (mL/min/1.73 m2) ?| With Kidney Damage ?| ?Without Kidney Damage+ +------- +---- --+| ?>90 ?| ?Stage one ?| ? Normal ?+ ------+ ---------+--------- +| ?60-89 ?| ?Stage two ?| ? Decreased GFR ? + -----+ --------+ +| ?30-59 ?| ?Stage three ?| ? Stage three ? + -----+ --------+ +| ?15-29 ?| ?Stage four ? | ? Stage four ?+ ------+ ---------+--------- +| ?<15 (or dialysis) ? ?| ?Stage five ? | ? Stage five ?+ ------+ ---------+--------- + *Each stage assumes the associated GFR level has been in effect for at least three months. ?Stages 1 to 5, with or without kidney disease, indicate chronic kidney disease. Notes: Determination of stages one and two (with eGFR >59mL/min/1.73 m2) requires estimation of kidney damage for at least three months as defined by structural or functional abnormalities of the kidney, manifested by either:Pathological abnormalities or Markers of kidney damage (including abnormalities in the composition of the blood or urine or abnormalities in imaging tests). Lab Interpretation (test code = 24250-7) Abnormal [facility] Metabolic Panel (NA, K, CL, CO2, GLUCOSE, BUN, CREATININE, CA)2023-05-24 13:28:19* Test Item Value Reference Range Interpretation Comme nts NA (test code = 2627915430) 131 mmol/L 135-145 L K (test code = 4684241634) 4.2 mmol/L 3.5-5.0 Slight hemolysis CL (test code = 2392939501) 99 mmol/L 98-108 CO2 TOTAL (test code = 0916660121) 21 mmol/L 23-31 L AGAP (test code = 6091485000) 11 2-16 BUN (test code = 1041403663) 11 mg/dL 7-23 Slight hemolysis GLUCOSE (test code = 1969066294) 132 mg/dL 70-110 H CREATININE (test code = 8832451816) 1.00 mg/dL 0.50-1.04 CALCIUM (test code = 8916697293) 9.8 mg/dL 8.6-10.6 eGFR (test code = 1521268456) 53.8 mL/min/1.73m2 JOSE (test code = JOSE) Association of Glomerular Filtration Rate (GFR) and Staging of Kidney Disease* + -----+ --------+ +| GFR (mL/min/1.73 m2) ?| With Kidney Damage ?| ?Without Kidney Damage+ +------- +---- --+| ?>90 ?| ?Stage one ?| ? Normal ?+ ------+ ---------+--------- +| ?60-89 ?| ?Stage two ?| ? Decreased GFR ? + -----+ --------+ +| ?30-59 ?| ?Stage three ?| ? Stage three ? + -----+ --------+ +| ?15-29 ?| ?Stage four ? | ? Stage four ?+ ------+ ---------+--------- +| ?<15 (or dialysis) ? ?| ?Stage five ? | ? Stage five ?+ ------+ ---------+--------- + *Each stage assumes the associated GFR level has been in effect for at least three months. ?Stages 1 to 5, with or without kidney disease, indicate chronic kidney disease. Notes: Determination of stages one and two (with eGFR >59mL/min/1.73 m2) requires estimation of kidney damage for at least three months as defined by structural or functional abnormalities of the kidney, manifested by either:Pathological abnormalities or Markers of kidney damage (including abnormalities in the composition of the blood or urine or abnormalities in imaging tests). Lab Interpretation (test code = 62719-6) Abnormal [facility] [id number] 04:16:27* Test Item Value Reference Range Interpretation Comme nts TROPONIN I (test code = 5570878235) 0.149 ng/mL <=0.034 H JOSE (test code = JOSE) Reference (Normal) Range (defined by the 99th percentile reference limit): <= 0.034 ng/mL Note: Cardiac troponin begins to rise 3-4 hours after the onset of ischemia. Repeat in 4-6 hours if the sample was drawn within 3-4 hours of the onset of the symptom and found normal. Diagnosis of myocardial injury is made with acute changes in cTn concentrations with at least one serial sample above the 99th percentile upper reference limit (URL), taken together with the patient's clinical presentation. Biotin has been reported to cause a negative bias, interpret results relative to patient's use of biotin. Lab Interpretation (test code = 46319-9) Abnormal [facility] [id number] 04:16:27* Test Item Value Reference Range Interpretation Comme nts TROPONIN I (test code = 9844578605) 0.149 ng/mL <=0.034 H JOSE (test code = JOSE) Reference (Normal) Range (defined by the 99th percentile reference limit): <= 0.034 ng/mL Note: Cardiac troponin begins to rise 3-4 hours after the onset of ischemia. Repeat in 4-6 hours if the sample was drawn within 3-4 hours of the onset of the symptom and found normal. Diagnosis of myocardial injury is made with acute changes in cTn concentrations with at least one serial sample above the 99th percentile upper reference limit (URL), taken together with the patient's clinical presentation. Biotin has been reported to cause a negative bias, interpret results relative to patient's use of biotin. Lab Interpretation (test code = 97968-4) Abnormal [facility]. METABOLIC PANEL ([id number])2023-05-24 04:04:44* Test Item Value Reference Range Interpretation Comme nts NA (test code = 5351618047) 134 mmol/L 135-145 L K (test code = 3048395980) 4.0 mmol/L 3.5-5.0 CL (test code = 3166828735) 97 mmol/L 98-108 L CO2 TOTAL (test code = 4163461592) 20 mmol/L 23-31 L AGAP (test code = 8413901002) 17 2-16 H BUN (test code = 2250519119) 13 mg/dL 7-23 GLUCOSE (test code = 2283206142) 143 mg/dL 70-110 H CREATININE (test code = 8241466346) 1.16 mg/dL 0.50-1.04 H TOTAL BILI (test code = 7736886927) 1.3 mg/dL 0.1-1.1 H CALCIUM (test code = 9154236709) 10.8 mg/dL 8.6-10.6 H T PROTEIN (test code = 3499416132) 7.0 g/dL 6.3-8.2 ALBUMIN (test code = 1945152846) 4.1 g/dL 3.5-5.0 ALK PHOS (test code = 7620063395) 134 U/L 34-122 H ALTv (test code = 1742-6) 22 U/L 5-35 AST(SGOT) (test code = 0872026719) 23 U/L 13-40 eGFR (test code = 5874227645) 45.3 mL/min/1.73m2 JOSE (test code = JOSE) Association of Glomerular Filtration Rate (GFR) and Staging of Kidney Disease* + --+ --+ ------+| GFR (mL/min/1.73 m2) ?| With Kidney Damage ?| ?Without Kidney Damage+ --------+ --------+ +| ?>90 ?| ?Stage one ?| ? Normal ?+ ---+ ---+ -------+| ?60-89 ?| ?Stage two ?| ? Decreased GFR ? + --+ --+ ------+| ?30-59 ?| ?Stage three ?| ? Stage three ? + --+ --+ ------+| ?15-29 ?| ?Stage four ? | ? Stage four ?+ ---+ ---+ -------+| ?<15 (or dialysis) ? ?| ?Stage five ? | ? Stage five ?+ ---+ ---+ -------+ *Each stage assumes the associated GFR level has been in effect for at least three months. ?Stages 1 to 5, with or without kidney disease, indicate chronic kidney disease. Notes: Determination of stages one and two (with eGFR >59mL/min/1.73 m2) requires estimation of kidney damage for at least three months as defined by structural or functional abnormalities of the kidney, manifested by either:Pathological abnormalities or Markers of kidney damage (including abnormalities in the composition of the blood or urine or abnormalities in imaging tests). Lab Interpretation (test code = 42472-4) [facility] ([id number])2023-05-24 04:04:44* Test Item Value Reference Range Interpretation Comme nts NA (test code = 4638540306) 134 mmol/L 135-145 L K (test code = 4034817190) 4.0 mmol/L 3.5-5.0 CL (test code = 4258676291) 97 mmol/L 98-108 L CO2 TOTAL (test code = 1277406195) 20 mmol/L 23-31 L AGAP (test code = 0610169234) 17 2-16 H BUN (test code = 2803536523) 13 mg/dL 7-23 GLUCOSE (test code = 3183923169) 143 mg/dL 70-110 H CREATININE (test code = 1464469965) 1.16 mg/dL 0.50-1.04 H TOTAL BILI (test code = 4357869484) 1.3 mg/dL 0.1-1.1 H CALCIUM (test code = 9934125429) 10.8 mg/dL 8.6-10.6 H T PROTEIN (test code = 1160195288) 7.0 g/dL 6.3-8.2 ALBUMIN (test code = 2945056881) 4.1 g/dL 3.5-5.0 ALK PHOS (test code = 7314012045) 134 U/L 34-122 H ALTv (test code = 1742-6) 22 U/L 5-35 AST(SGOT) (test code = 1811750726) 23 U/L 13-40 eGFR (test code = 7952823398) 45.3 mL/min/1.73m2 JOSE (test code = JOSE) Association of Glomerular Filtration Rate (GFR) and Staging of Kidney Disease* + --+ --+ ------+| GFR (mL/min/1.73 m2) ?| With Kidney Damage ?| ?Without Kidney Damage+ --------+ --------+ +| ?>90 ?| ?Stage one ?| ? Normal ?+ ---+ ---+ -------+| ?60-89 ?| ?Stage two ?| ? Decreased GFR ? + --+ --+ ------+| ?30-59 ?| ?Stage three ?| ? Stage three ? + --+ --+ ------+| ?15-29 ?| ?Stage four ? | ? Stage four ?+ ---+ ---+ -------+| ?<15 (or dialysis) ? ?| ?Stage five ? | ? Stage five ?+ ---+ ---+ -------+ *Each stage assumes the associated GFR level has been in effect for at least three months. ?Stages 1 to 5, with or without kidney disease, indicate chronic kidney disease. Notes: Determination of stages one and two (with eGFR >59mL/min/1.73 m2) requires estimation of kidney damage for at least three months as defined by structural or functional abnormalities of the kidney, manifested by either:Pathological abnormalities or Markers of kidney damage (including abnormalities in the composition of the blood or urine or abnormalities in imaging tests). Lab Interpretation (test code = 07866-5) [facility]normal [facility] / [id number] 04:02:22* Test Item Value Reference Range Interpretation Comme nts LA PATIENT (test code = 5964-2) 21.1 See_Comment H [Automated [employer]] The system which generated this result transmitted reference range: 12.0 - 14.7 Seconds. The reference range was not used to interpret this result as normal/abnormal. INR (test code = 6301-6) 1.9 Normal INR <1.1; Warfarin Therapeutic range 2.0 to 3.0 or 2.5 to 3.5, depending upon the indications. Lab Interpretation (test code = 99618-3) [facility]normal [facility] / [id number] 04:02:22* Test Item Value Reference Range Interpretation Comme nts PROTIME PATIENT (test code = 5964-2) 21.1 See_Comment H [Automated messa ge] The system which generated this result transmitted reference range: 12.0 - 14.7 Seconds. The reference range was not used to interpret this result as normal/abnormal. INR (test code = 6301-6) 1.9 Normal INR <1.1; Warfarin Therapeutic range 2.0 to 3.0 or 2.5 to 3.5, depending upon the indications. Lab Interpretation (test code = 09898-3) [facility] [id number] 03:52:04* Test Item Value Reference Range Interpretation Comme [facility] WBC (test code = 6690-2) 8.56 See_Comment [Automated messa ge] The system which generated this result transmitted reference range: 4.30 - 11.10 10*3/?L. The reference range was not used to interpret this result as normal/abnormal. RBC (test code = 789-8) 4.89 See_Comment [Automated messa ge] The system which generated this result transmitted reference range: 3.93 - 5.25 10*6/?L. The reference range was not used to interpret this result as normal/abnormal. HGB (test code = 718-7) 14.8 g/dL 11.6-15.0 HCT (test code = 4544-3) 45.8 % 35.7-45.2 H MCV (test code = 787-2) 93.7 fL 80.6-95.5 MCH (test code = 785-6) 30.3 pg 25.9-32.8 MCHC (test code = 786-4) 32.3 g/dL 31.6-35.1 RDW-SD (test code = 62736-9) 60.3 fL 39.0-49.9 H RDW-CV (test code = 788-0) 17.4 % 12.0-15.5 H PLT (test code = 777-3) 222 See_Comment [Automated messa ge] The system which generated this result transmitted reference range: 166 - 358 10*3/?L. The reference range was not used to interpret this result as normal/abnormal. MPV (test code = 08759-3) 11.5 fL 9.5-12.9 NRBC/100 WBC (test code = 7386061152) 0.0 See_Comment [Automated TYFFON ssage] The system which generated this result transmitted reference range: 0.0 - 10.0 /100 WBCs. The reference range was not used to interpret this result as normal/abnormal. NRBC x10^3 (test code = 7385492087) See_Comment [Automated messa ge] The system which generated this result transmitted reference range: 10*3/?L. The reference range was not used to interpret this result as normal/abnormal. GRAN MAT (NEUT) % (test code = 770-8) 85.3 % IMM GRAN % (test code = 6890476361) 0.60 % LYMPH % (test code = 736-9) 6.7 % MONO % (test code = 5905-5) 6.4 % EOS % (test code = 713-8) 0.6 % BASO % (test code = 706-2) 0.4 % GRAN MAT x10^3(ANC) (test code = 9031075403) 7.31 10*3/uL 1.88-7.09 H IMM GRAN x10^3 (test code = 7504123226) 0.05 10*3/uL 0.00-0.06 LYMPH x10^3 (test code = 731-0) 0.57 10*3/uL 1.32-3.29 L MONO x10^3 (test code = 742-7) 0.55 10*3/uL 0.33-0.92 EOS x10^3 (test code = 711-2) 0.05 10*3/uL 0.03-0.39 BASO x10^3 (test code = 704-7) 0.03 10*3/uL 0.01-0.07 Lab Interpretation (test code = 18845-2) Abnormal [facility] WITH [id number] 03:52:04* Test Item Value Reference Range Interpretation Comme nts WBC (test code = 6690-2) 8.56 See_Comment [Automated messa ge] The system which generated this result transmitted reference range: 4.30 - 11.10 10*3/?L. The reference range was not used to interpret this result as normal/abnormal. RBC (test code = 789-8) 4.89 See_Comment [Automated messa ge] The system which generated this result transmitted reference range: 3.93 - 5.25 10*6/?L. The reference range was not used to interpret this result as normal/abnormal. HGB (test code = 718-7) 14.8 g/dL 11.6-15.0 HCT (test code = 4544-3) 45.8 % 35.7-45.2 H MCV (test code = 787-2) 93.7 fL 80.6-95.5 MCH (test code = 785-6) 30.3 pg 25.9-32.8 MCHC (test code = 786-4) 32.3 g/dL 31.6-35.1 RDW-SD (test code = 41328-5) 60.3 fL 39.0-49.9 H RDW-CV (test code = 788-0) 17.4 % 12.0-15.5 H PLT (test code = 777-3) 222 See_Comment [Automated messa ge] The system which generated this result transmitted reference range: 166 - 358 10*3/?L. The reference range was not used to interpret this result as normal/abnormal. MPV (test code = 57107-3) 11.5 fL 9.5-12.9 NRBC/100 WBC (test code = 2876428486) 0.0 See_Comment [Automated TYFFON ssage] The system which generated this result transmitted reference range: 0.0 - 10.0 /100 WBCs. The reference range was not used to interpret this result as normal/abnormal. NRBC x10^3 (test code = 5295481191) See_Comment [Automated messa ge] The system which generated this result transmitted reference range: 10*3/?L. The reference range was not used to interpret this result as normal/abnormal. GRAN MAT (NEUT) % (test code = 770-8) 85.3 % IMM GRAN % (test code = 7931702677) 0.60 % LYMPH % (test code = 736-9) 6.7 % MONO % (test code = 5905-5) 6.4 % EOS % (test code = 713-8) 0.6 % BASO % (test code = 706-2) 0.4 % GRAN MAT x10^3(ANC) (test code = 0974074925) 7.31 10*3/uL 1.88-7.09 H IMM GRAN x10^3 (test code = 7565572601) 0.05 10*3/uL 0.00-0.06 LYMPH x10^3 (test code = 731-0) 0.57 10*3/uL 1.32-3.29 L MONO x10^3 (test code = 742-7) 0.55 10*3/uL 0.33-0.92 EOS x10^3 (test code = 711-2) 0.05 10*3/uL 0.03-0.39 BASO x10^3 (test code = 704-7) 0.03 10*3/uL 0.01-0.07 Lab Interpretation (test code = 07843-7) Abnormal [facility] METABOLIC PANEL (NA, K, CL, CO2, GLUCOSE, BUN, CREATININE, CA)2023-05-20 11:07:51* Test Item Value Reference Range Interpretation Comme nts NA (test code = 8904098333) 136 mmol/L 135-145 K (test code = 6999767662) 4.3 mmol/L 3.5-5.0 CL (test code = 8015158562) 111 mmol/L 98-108 H CO2 TOTAL (test code = 7233037881) 20 mmol/L 23-31 L AGAP (test code = 7348311266) 5 2-16 BUN (test code = 7199950304) 29 mg/dL 7-23 H GLUCOSE (test code = 5421974137) 83 mg/dL 70-110 CREATININE (test code = 9401614166) 1.76 mg/dL 0.50-1.04 H CALCIUM (test code = 3662673974) 8.3 mg/dL 8.6-10.6 L eGFR (test code = 0867900445) 28.0 mL/min/1.73m2 JOSE (test code = JOSE) Association of Glomerular Filtration Rate (GFR) and Staging of Kidney Disease* + --+ --+ ------+| GFR (mL/min/1.73 m2) ?| With Kidney Damage ?| ?Without Kidney Damage+ --------+ --------+ +| ?>90 ?| ?Stage one ?| ? Normal ?+ ---+ ---+ -------+| ?60-89 ?| ?Stage two ?| ? Decreased GFR ? + --+ --+ ------+| ?30-59 ?| ?Stage three ?| ? Stage three ? + --+ --+ ------+| ?15-29 ?| ?Stage four ? | ? Stage four ?+ ---+ ---+ -------+| ?<15 (or dialysis) ? ?| ?Stage five ? | ? Stage five ?+ ---+ ---+ -------+ *Each stage assumes the associated GFR level has been in effect for at least three months. ?Stages 1 to 5, with or without kidney disease, indicate chronic kidney disease. Notes: Determination of stages one and two (with eGFR >59mL/min/1.73 m2) requires estimation of kidney damage for at least three months as defined by structural or functional abnormalities of the kidney, manifested by either:Pathological abnormalities or Markers of kidney damage (including abnormalities in the composition of the blood or urine or abnormalities in imaging tests). Lab Interpretation (test code = 39633-1) Abnormal [facility] WITH [id number] 14:12:34* Test Item Value Reference Range Interpretation Comme nts WBC (test code = 6690-2) 12.06 See_Comment H [Automated [employer]] The system which generated this result transmitted reference range: 4.30 - 11.10 10*3/?L. The reference range was not used to interpret this result as normal/abnormal. RBC (test code = 789-8) 4.38 See_Comment [Automated [employer]] The system which generated this result transmitted reference range: 3.93 - 5.25 10*6/?L. The reference range was not used to interpret this result as normal/abnormal. HGB (test code = 718-7) 12.9 g/dL 11.6-15.0 HCT (test code = 4544-3) 41.4 % 35.7-45.2 MCV (test code = 787-2) 94.5 fL 80.6-95.5 MCH (test code = 785-6) 29.5 pg 25.9-32.8 MCHC (test code = 786-4) 31.2 g/dL 31.6-35.1 L RDW-SD (test code = 30514-4) 62.3 fL 39.0-49.9 H RDW-CV (test code = 788-0) 18.1 % 12.0-15.5 H PLT (test code = 777-3) 232 See_Comment [Automated [employer]] The system which generated this result transmitted reference range: 166 - 358 10*3/?L. The reference range was not used to interpret this result as normal/abnormal. MPV (test code = 56030-2) 12.0 fL 9.5-12.9 NRBC/100 WBC (test code = 6831558500) 0.0 See_Comment [Automated [employer] ssage] The system which generated this result transmitted reference range: 0.0 - 10.0 /100 WBCs. The reference range was not used to interpret this result as normal/abnormal. NRBC x10^3 (test code = 2838060093) See_Comment [Automated [employer] ge] The system which generated this result transmitted reference range: 10*3/?L. The reference range was not used to interpret this result as normal/abnormal. GRAN MAT (NEUT) % (test code = 770-8) 79.7 % IMM GRAN % (test code = 2762314884) 0.50 % LYMPH % (test code = 736-9) 10.0 % MONO % (test code = 5905-5) 8.3 % EOS % (test code = 713-8) 1.2 % BASO % (test code = 706-2) 0.3 % GRAN MAT x10^3(ANC) (test code = 1193319466) 9.61 10*3/uL 1.88-7.09 H IMM GRAN x10^3 (test code = 4869960584) 0.06 10*3/uL 0.00-0.06 LYMPH x10^3 (test code = 731-0) 1.20 10*3/uL 1.32-3.29 L MONO x10^3 (test code = 742-7) 1.00 10*3/uL 0.33-0.92 H EOS x10^3 (test code = 711-2) 0.15 10*3/uL 0.03-0.39 BASO x10^3 (test code = 704-7) 0.04 10*3/uL 0.01-0.07 Lab Interpretation (test code = 97163-8) [facility] [id number] 09:41:22* Test Item Value Reference Range Interpretation Comme nts TROPONIN I (test code = 3065594644) 1.680 ng/mL <=0.034 H JOSE (test code = JOSE) Reference (Normal) Range (defined by the 99th percentile reference limit): <= 0.034 ng/mL Note: Cardiac troponin begins to rise 3-4 hours after the onset of ischemia. Repeat in 4-6 hours if the sample was drawn within 3-4 hours of the onset of the symptom and found normal. Diagnosis of myocardial injury is made with acute changes in cTn concentrations with at least one serial sample above the 99th percentile upper reference limit (URL), taken together with the patient's clinical presentation. Biotin has been reported to cause a negative bias, interpret results relative to patient's use of biotin. Lab Interpretation (test code = 20159-2) [facility]:01* Test Item Value Reference Range Interpretation Comme nts PHOSPHORUS (test code = 4637663073) 4.3 mg/dL 2.5-5.0 Lab Interpretation (test cod e = 20341-8) [facility] 09:33:01* Test Item Value Reference Range Interpretation Comme nts MAGNESIUM (test code = 0035216429) 2.0 mg/dL 1.7-2.4 Lab Interpretation (test cod e = 13336-8) [facility] (NA, K, CL, CO2, GLUCOSE, BUN, CREATININE, CA)2023-05-19 09:33:01* Test Item Value Reference Range Interpretation Comme nts NA (test code = 4128383865) 129 mmol/L 135-145 L K (test code = 5337361060) 4.5 mmol/L 3.5-5.0 CL (test code = 6199676265) 102 mmol/L 98-108 CO2 TOTAL (test code = 1572171090) 16 mmol/L 23-31 L AGAP (test code = 4894243424) 11 2-16 BUN (test code = 5916874887) 37 mg/dL 7-23 H GLUCOSE (test code = 3931196393) 90 mg/dL 70-110 CREATININE (test code = 8249343271) 2.02 mg/dL 0.50-1.04 H CALCIUM (test code = 4310065470) 9.1 mg/dL 8.6-10.6 eGFR (test code = 1518435105) 23.9 mL/min/1.73m2 JOSE (test code = JOSE) Association of Glomerular Filtration Rate (GFR) and Staging of Kidney Disease* + --+ --+ ------+| GFR (mL/min/1.73 m2) ?| With Kidney Damage ?| ?Without Kidney Damage+ --------+ --------+ +| ?>90 ?| ?Stage one ?| ? Normal ?+ ---+ ---+ -------+| ?60-89 ?| ?Stage two ?| ? Decreased GFR ? + --+ --+ ------+| ?30-59 ?| ?Stage three ?| ? Stage three ? + --+ --+ ------+| ?15-29 ?| ?Stage four ? | ? Stage four ?+ ---+ ---+ -------+| ?<15 (or dialysis) ? ?| ?Stage five ? | ? Stage five ?+ ---+ ---+ -------+ *Each stage assumes the associated GFR level has been in effect for at least three months. ?Stages 1 to 5, with or without kidney disease, indicate chronic kidney disease. Notes: Determination of stages one and two (with eGFR >59mL/min/1.73 m2) requires estimation of kidney damage for at least three months as defined by structural or functional abnormalities of the kidney, manifested by either:Pathological abnormalities or Markers of kidney damage (including abnormalities in the composition of the blood or urine or abnormalities in imaging tests). Lab Interpretation (test code = 33263-3) [facility]:33:01* Test Item Value Reference Range Interpretation Comme nts PHOSPHORUS (test code = 1525600435) 4.3 mg/dL 2.5-5.0 Lab Interpretation (test cod e = 88812-6) Normal [facility] [id number] 09:15:36* Test Item Value Reference Range Interpretation Comme nts WBC (test code = 6690-2) 10.17 See_Comment [Automated [employer]] The system which generated this result transmitted reference range: 4.30 - 11.10 10*3/?L. The reference range was not used to interpret this result as normal/abnormal. RBC (test code = 789-8) 4.07 See_Comment [Automated [employer]] The system which generated this result transmitted reference range: 3.93 - 5.25 10*6/?L. The reference range was not used to interpret this result as normal/abnormal. HGB (test code = 718-7) 12.1 g/dL 11.6-15.0 HCT (test code = 4544-3) 38.5 % 35.7-45.2 MCV (test code = 787-2) 94.6 fL 80.6-95.5 MCH (test code = 785-6) 29.7 pg 25.9-32.8 MCHC (test code = 786-4) 31.4 g/dL 31.6-35.1 L RDW-SD (test code = 89700-9) 62.3 fL 39.0-49.9 H RDW-CV (test code = 788-0) 18.2 % 12.0-15.5 H PLT (test code = 777-3) 178 See_Comment [Automated [employer]] The system which generated this result transmitted reference range: 166 - 358 10*3/?L. The reference range was not used to interpret this result as normal/abnormal. MPV (test code = 53857-5) 12.1 fL 9.5-12.9 NRBC/100 WBC (test code = 6965081254) 0.0 See_Comment [Automated me ssage] The system which generated this result transmitted reference range: 0.0 - 10.0 /100 WBCs. The reference range was not used to interpret this result as normal/abnormal. NRBC x10^3 (test code = 7819882406) See_Comment [Automated messa ge] The system which generated this result transmitted reference range: 10*3/?L. The reference range was not used to interpret this result as normal/abnormal. GRAN MAT (NEUT) % (test code = 770-8) 81.4 % IMM GRAN % (test code = 3441021199) 0.50 % LYMPH % (test code = 736-9) 8.0 % MONO % (test code = 5905-5) 9.2 % EOS % (test code = 713-8) 0.6 % BASO % (test code = 706-2) 0.3 % GRAN MAT x10^3(ANC) (test code = 1022010687) 8.28 10*3/uL 1.88-7.09 H IMM GRAN x10^3 (test code = 8373517449) 0.05 10*3/uL 0.00-0.06 LYMPH x10^3 (test code = 731-0) 0.81 10*3/uL 1.32-3.29 L MONO x10^3 (test code = 742-7) 0.94 10*3/uL 0.33-0.92 H EOS x10^3 (test code = 711-2) 0.06 10*3/uL 0.03-0.39 BASO x10^3 (test code = 704-7) 0.03 10*3/uL 0.01-0.07 Lab Interpretation (test code = 45871-1) [facility]normal [facility]2023-05-18 15:03:11 * Test Item Value Reference Range Interpretation Comme nts Height (test code = 1475489229) 130 in Weight (test code = 8083899346) 59 lbs Systolic BP (test code = 3358547392) 117 mmHg Diastolic BP (test code = 8058114043) 74 mmHg Heart Rate (test code = 1724021526) 118 bpm BSA (test code = 3581088015) 1.54 m2 Radiology Study observation (narrative) (test code = 71182-4) JOSE (test code = JOSE) ?Left?Atrium: Left atrium is moderately dilated. Normal sized appendage. Decreased appendage flow velocity. No thrombus but smoke can be seen which indicate very poor function. ?Left?Ventricle: Left ventricle size is normal. Mildly reduced systolic function. ?Mitral?Valve: Mitral valve structure is normal. Mild transvalvular regurgitation. ?Tricuspid?Valve: Tricuspid valve structure is normal. Left VentricleLeft ventricle size is normal. Mildly reduced systolic function.Right VentricleRight ventricle size is normal. Normal systolic function.Left AtriumLeft atrium is moderately dilated. Normal sized appendage. Decreased appendage flow velocity. No thrombus but smoke can be seen which indicate very poor function.Right AtriumRight atrium size is normal.Mitral ValveMitral valve structure is normal. Mild transvalvular regurgitation.Tricuspid ValveTricuspid valve structure is normal.Aortic ValveAortic valve structure is normal. Mild transvalvular regurgitation.Pulmonic ValveValve structure is normal.Ascending AortaNormal sized aorta. Grade 2 atherosclerosis.Pericard iumThe pericardium is normal.Study DetailsA complete transesophageal echocardiogram was performed using complete 2D, color flow Doppler and spectral Doppler. During the study the esophageal, transgastric and descending thoracic views were captured. The probe was inserted by the retirement assistant. There was no probe insertion difficulty.There were 1 attempts to insert the probe. Probe in 11:48 am. Probe out 11:56 am. Sedation and monitoring provided by anesthesia, see Epic documentation. There were no complications during the procedure. Height (test code = 3505855923) 130 in Weight (test code = 7339405942) 59 lbs Systolic BP (test code = 9293741704) 117 mmHg Diastolic BP (test code = 0933664561) 74 mmHg Heart Rate (test code = 9677451360) 118 bpm BSA (test code = 4195577932) 1.54 m2 JOSE (test code = JOSE) ?Left?Atrium: Left atrium is moderately dilated. Normal sized appendage. Decreased appendage flow velocity. No thrombus but smoke can be seen which indicate very poor function. ?Left?Ventricle: Left ventricle size is normal. Mildly reduced systolic function. ?Mitral?Valve: Mitral valve structure is normal. Mild transvalvular regurgitation. ?Tricuspid?Valve: Tricuspid valve structure is normal. Left VentricleLeft ventricle size is normal. Mildly reduced systolic function.Right VentricleRight ventricle size is normal. Normal systolic function.Left AtriumLeft atrium is moderately dilated. Normal sized appendage. Decreased appendage flow velocity. No thrombus but smoke can be seen which indicate very poor function.Right AtriumRight atrium size is normal.Mitral ValveMitral valve structure is normal. Mild transvalvular regurgitation.Tricuspid ValveTricuspid valve structure is normal.Aortic ValveAortic valve structure is normal. Mild transvalvular regurgitation.Pulmonic ValveValve structure is normal.Ascending AortaNormal sized aorta. Grade 2 atherosclerosis.Pericard iumThe pericardium is normal.Study DetailsA complete transesophageal echocardiogram was performed using complete 2D, color flow Doppler and spectral Doppler. During the study the esophageal, transgastric and descending thoracic views were captured. The probe was inserted by the retirement assistant. There was no probe insertion difficulty.There were 1 attempts to insert the probe. Probe in 11:48 am. Probe out 11:56 am. Sedation and monitoring provided by anesthesia, see Epic documentation. There were no complications during the procedure. 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 The reference range was not used to interpret this result as normal/abnormal. INR (test code = 6301-6) 2.3 Normal INR <1.1; Warfarin Therapeutic range 2.0 to 3.0 or 2.5 to 3.5, depending upon the indications. Lab Interpretation (test code = 61455-0) Abnormal [facility] / [id number] 01:18:20* Test Item Value Reference Range Interpretation Comme [facility] PROTIME PATIENT (test code = 5964-2) 26.8 See_Comment H [Automated [employer]] The system which generated this result transmitted reference range: 10.1 - 12.6 Seconds. The reference range was not used to interpret this result as normal/abnormal. INR (test code = 6301-6) 2.3 Normal INR <1.1; Warfarin Therapeutic range 2.0 to 3.0 or 2.5 to 3.5, depending upon the indications. Lab Interpretation (test code = 33358-3) Abnormal [facility] - ONCE [id number] 14:26:00* Test Item Value Reference Range Interpretation Comme nts ABO & RH (test code = 20) O Positive IAT (test code = 1185) Negative [facility] [id number] 14:26:00* Test Item Value Reference Range Interpretation Comme nts ABO & RH (test code = 20) O Positive IAT (test code = 1185) Negative [facility] [id number] 14:26:00* Test Item Value Reference Range Interpretation Comme nts ABO & RH (test code = 20) O Positive IAT (test code = 1185) Negative [facility] [id number] 01:41:20* Test Item Value Reference Range Interpretation Comme nts TROPONIN I (test code = 6599679979) 0.020 ng/mL <=0.034 JOSE (test code = JOSE) Reference (Normal) Range (defined by the 99th percentile reference limit): <= 0.034 ng/mL Note: Cardiac troponin begins to rise 3-4 hours after the onset of ischemia. Repeat in 4-6 hours if the sample was drawn within 3-4 hours of the onset of the symptom and found normal. Diagnosis of myocardial injury is made with acute changes in cTn concentrations with at least one serial sample above the 99th percentile upper reference limit (URL), taken together with the patient's clinical presentation. Biotin has been reported to cause a negative bias, interpret results relative to patient's use of biotin. Lab Interpretation (test code = 96810-9) Normal [facility] HospitalN-TERMINAL [id number] 01:38:39* Test Item Value Reference Range Interpretation Comme nts NT-proBNP (test code = 16435-1) 88875 pg/mL <=125 H JOSE (test code = JOSE) Positive: Heart Failure Likely Lab Interpretation (test code = 27929-7) [facility]normal [facility]2023-09-22 01:29:57* Test Item Value Reference Range Interpretation Comme nts MAGNESIUM (test code = 9190128361) 2.3 mg/dL 1.7-2.4 Lab Interpretation (test cod e = 23887-2) Normal [facility] METABOLIC PANEL (95289)2023-05-06 01:29:37* Test Item Value Reference Range Interpretation Comme nts NA (test code = 7408967079) 135 mmol/L 135-145 K (test code = 7618585130) 5.3 mmol/L 3.5-5.0 H CL (test code = 4296533102) 100 mmol/L 98-108 CO2 TOTAL (test code = 0571651779) 24 mmol/L 23-31 AGAP (test code = 1608841166) 11 2-16 BUN (test code = 3577420164) 24 mg/dL 7-23 H GLUCOSE (test code = 1902739219) 140 mg/dL 70-110 H CREATININE (test code = 5390082294) 1.63 mg/dL 0.50-1.04 H TOTAL BILI (test code = 9175165754) 0.8 mg/dL 0.1-1.1 CALCIUM (test code = 5600676384) 9.9 mg/dL 8.6-10.6 T PROTEIN (test code = 3859521447) 7.0 g/dL 6.3-8.2 ALBUMIN (test code = 2190261999) 4.0 g/dL 3.5-5.0 ALK PHOS (test code = 5204548969) 154 U/L 34-122 H ALTv (test code = 1742-6) 24 U/L 5-35 AST(SGOT) (test code = 3191934687) 24 U/L 13-40 eGFR (test code = 6016786548) 30.6 mL/min/1.73m2 JOSE (test code = JOSE) Association of Glomerular Filtration Rate (GFR) and Staging of Kidney Disease* + --+ --+ ------+| GFR (mL/min/1.73 m2) ?| With Kidney Damage ?| ?Without Kidney Damage+ --------+ --------+ +| ?>90 ?| ?Stage one ?| ? Normal ?+ ---+ ---+ -------+| ?60-89 ?| ?Stage two ?| ? Decreased GFR ? + --+ --+ ------+| ?30-59 ?| ?Stage three ?| ? Stage three ? + --+ --+ ------+| ?15-29 ?| ?Stage four ? | ? Stage four ?+ ---+ ---+ -------+| ?<15 (or dialysis) ? ?| ?Stage five ? | ? Stage five ?+ ---+ ---+ -------+ *Each stage assumes the associated GFR level has been in effect for at least three months. ?Stages 1 to 5, with or without kidney disease, indicate chronic kidney disease. Notes: Determination of stages one and two (with eGFR >59mL/min/1.73 m2) requires estimation of kidney damage for at least three months as defined by structural or functional abnormalities of the kidney, manifested by either:Pathological abnormalities or Markers of kidney damage (including abnormalities in the composition of the blood or urine or abnormalities in imaging tests). Lab Interpretation (test code = 84420-5) Abnormal [facility] 01:29:37* Test Item Value Reference Range Interpretation Comme nts LIPASE (test code = 9462155723) 27 U/L 0-220 Lab Interpretation (test cod e = 72766-2) Normal [facility]2023-[facility] 01:29:37* Test Item Value Reference Range Interpretation Comme nts LIPASE (test code = 6588544206) 27 U/L 0-220 Lab Interpretation (test cod e = 58355-9) Normal [facility] HospitalCB WITH [id number] 01:18:18* Test Item Value Reference Range Interpretation Comme nts WBC (test code = 6690-2) 11.47 See_Comment H [Automated [employer]] The system which generated this result transmitted reference range: 4.30 - 11.10 10*3/?L. The reference range was not used to interpret this result as normal/abnormal. RBC (test code = 789-8) 4.73 See_Comment [Automated [employer]] The system which generated this result transmitted reference range: 3.93 - 5.25 10*6/?L. The reference range was not used to interpret this result as normal/abnormal. HGB (test code = 718-7) 14.1 g/dL 11.6-15.0 HCT (test code = 4544-3) 44.5 % 35.7-45.2 MCV (test code = 787-2) 94.1 fL 80.6-95.5 MCH (test code = 785-6) 29.8 pg 25.9-32.8 MCHC (test code = 786-4) 31.7 g/dL 31.6-35.1 RDW-SD (test code = 60481-1) 56.8 fL 39.0-49.9 H RDW-CV (test code = 788-0) 16.3 % 12.0-15.5 H PLT (test code = 777-3) 484 See_Comment H [Automated messa ge] The system which generated this result transmitted reference range: 166 - 358 10*3/?L. The reference range was not used to interpret this result as normal/abnormal. MPV (test code = 89965-1) 11.4 fL 9.5-12.9 NRBC/100 WBC (test code = 7390812959) 0.0 See_Comment [Automated [employer]] The system which generated this result transmitted reference range: 0.0 - 10.0 /100 WBCs. The reference range was not used to interpret this result as normal/abnormal. NRBC x10^3 (test code = 2727641509) See_Comment [Automated messa ge] The system which generated this result transmitted reference range: 10*3/?L. The reference range was not used to interpret this result as normal/abnormal. GRAN MAT (NEUT) % (test code = 770-8) 80.4 % IMM GRAN % (test code = 5519873576) 0.60 % LYMPH % (test code = 736-9) 10.7 % MONO % (test code = 5905-5) 7.3 % EOS % (test code = 713-8) 0.3 % BASO % (test code = 706-2) 0.7 % GRAN MAT x10^3(ANC) (test code = 4218725653) 9.22 10*3/uL 1.88-7.09 H IMM GRAN x10^3 (test code = 2260334623) 0.07 10*3/uL 0.00-0.06 H LYMPH x10^3 (test code = 731-0) 1.23 10*3/uL 1.32-3.29 L MONO x10^3 (test code = 742-7) 0.84 10*3/uL 0.33-0.92 EOS x10^3 (test code = 711-2) 0.03 10*3/uL 0.03-0.39 BASO x10^3 (test code = 704-7) 0.08 10*3/uL 0.01-0.07 H Lab Interpretation (test code = 45579-0) Abnormal [facility] HospitalPROTHROMBIN TIME / [id number] 17:46:30* Test Item Value Reference Range Interpretation Comme [facility] PROTIME PATIENT (test code = 5964-2) 47.5 See_Comment H [Automated messa ge] The system which generated this result transmitted reference range: 12.0 - 14.7 Seconds. The reference range was not used to interpret this result as normal/abnormal. INR (test code = 6301-6) 5.3 HH Normal INR <1.1; Warfarin Therapeutic range 2.0 to 3.0 or 2.5 to 3.5, depending upon the indications. Lab Interpretation (test code = 62987-9) Abnormal [facility] / [id number] 03:09:11* Test Item Value Reference Range Interpretation Comme [facility] PROTIME PATIENT (test code = 5964-2) 21.6 See_Comment H [Automated messa ge] The system which generated this result transmitted reference range: 12.0 - 14.7 Seconds. The reference range was not used to interpret this result as normal/abnormal. INR (test code = 6301-6) 1.9 Normal INR <1.1; Warfarin Therapeutic range 2.0 to 3.0 or 2.5 to 3.5, depending upon the indications. Lab Interpretation (test code = 92367-2) Abnormal [facility] [id number] 03:06:09* Test Item Value Reference Range Interpretation Comme nts TROPONIN I (test code = 6028000402) 0.033 ng/mL <=0.034 JOSE (test code = JOSE) Reference (Normal) Range (defined by the 99th percentile reference limit): <= 0.034 ng/mL Note: Cardiac troponin begins to rise 3-4 hours after the onset of ischemia. Repeat in 4-6 hours if the sample was drawn within 3-4 hours of the onset of the symptom and found normal. Diagnosis of myocardial injury is made with acute changes in cTn concentrations with at least one serial sample above the 99th percentile upper reference limit (URL), taken together with the patient's clinical presentation. Biotin has been reported to cause a negative bias, interpret results relative to patient's use of biotin. Lab Interpretation (test code = 61918-8) [id number] 03:03:31* Test Item Value Reference Range Interpretation Comme nts NT-proBNP (test code = 60416-8) 2570 pg/mL <=125 H JOSE (test code = JOSE) Positive: Heart Failure Likely Lab Interpretation (test code = 25724-7) [facility] 02:54:50* Test Item Value Reference Range Interpretation Comme nts MAGNESIUM (test code = 0276342849) 2.1 mg/dL 1.7-2.4 Lab Interpretation (test cod e = 90724-3) [facility] ([id number])2023-04-07 02:54:29* Test Item Value Reference Range Interpretation Comme nts NA (test code = 3998779590) 138 mmol/L 135-145 K (test code = 2164675588) 4.4 mmol/L 3.5-5.0 CL (test code = 2754436895) 103 mmol/L 98-108 CO2 TOTAL (test code = 5820046133) 27 mmol/L 23-31 AGAP (test code = 0396960784) 8 2-16 BUN (test code = 9614515363) 34 mg/dL 7-23 H GLUCOSE (test code = 8949943379) 169 mg/dL 70-110 H CREATININE (test code = 2855553592) 1.55 mg/dL 0.50-1.04 H TOTAL BILI (test code = 3561530348) 0.5 mg/dL 0.1-1.1 CALCIUM (test code = 3232399385) 10.7 mg/dL 8.6-10.6 H T PROTEIN (test code = 2670182740) 6.9 g/dL 6.3-8.2 ALBUMIN (test code = 5297449122) 4.2 g/dL 3.5-5.0 ALK PHOS (test code = 6474803255) 125 U/L 34-122 H ALTv (test code = 1742-6) 19 U/L 5-35 AST(SGOT) (test code = 7930841254) 21 U/L 13-40 eGFR (test code = 9648077619) 32.4 mL/min/1.73m2 JOSE (test code = JOSE) Association of Glomerular Filtration Rate (GFR) and Staging of Kidney Disease* + --+ --+ ------+| GFR (mL/min/1.73 m2) ?| With Kidney Damage ?| ?Without Kidney Damage+ --------+ --------+ +| ?>90 ?| ?Stage one ?| ? Normal ?+ ---+ ---+ -------+| ?60-89 ?| ?Stage two ?| ? Decreased GFR ? + --+ --+ ------+| ?30-59 ?| ?Stage three ?| ? Stage three ? + --+ --+ ------+| ?15-29 ?| ?Stage four ? | ? Stage four ?+ ---+ ---+ -------+| ?<15 (or dialysis) ? ?| ?Stage five ? | ? Stage five ?+ ---+ ---+ -------+ *Each stage assumes the associated GFR level has been in effect for at least three months. ?Stages 1 to 5, with or without kidney disease, indicate chronic kidney disease. Notes: Determination of stages one and two (with eGFR >59mL/min/1.73 m2) requires estimation of kidney damage for at least three months as defined by structural or functional abnormalities of the kidney, manifested by either:Pathological abnormalities or Markers of kidney damage (including abnormalities in the composition of the blood or urine or abnormalities in imaging tests). Lab Interpretation (test code = 02699-6) [facility]54:09* Test Item Value Reference Range Interpretation Comme nts LIPASE (test code = 9415359513) 55 U/L 0-220 Lab Interpretation (test cod e = 07608-1) Normal [facility] WITHOUT [id number] 02:45:30* Test Item Value Reference Range Interpretation Comme nts WBC (test code = 6690-2) 13.37 See_Comment H [Automated message] The system which generated this result transmitted reference range: 4.30 - 11.10 10*3/?L. The reference range was not used to interpret this result as normal/abnormal. RBC (test code = 789-8) 4.85 See_Comment [Automated message] The system which generated this result transmitted reference range: 3.93 - 5.25 10*6/?L. The reference range was not used to interpret this result as normal/abnormal. HGB (test code = 718-7) 14.8 g/dL 11.6-15.0 HCT (test code = 4544-3) 44.6 % 35.7-45.2 MCH (test code = 785-6) 30.5 pg 25.9-32.8 MCV (test code = 787-2) 92.0 fL 80.6-95.5 MCHC (test code = 786-4) 33.2 g/dL 31.6-35.1 PLT (test code = 777-3) 306 See_Comment [Automated message] The system which generated this result transmitted reference range: 166 - 358 10*3/?L. The reference range was not used to interpret this result as normal/abnormal. MPV (test code = 18591-4) 12.0 fL 9.5-12.9 RDW-CV (test code = 788-0) 15.4 % 12.0-15.5 RDW-SD (test code = 11661-4) 51.8 fL 39.0-49.9 H NRBC x10^3 (test code = 8844268042) See_Comment [Automated messa ge] The system which generated this result transmitted reference range: 10*3/?L. The reference range was not used to interpret this result as normal/abnormal. NRBC/100 WBC (test code = 8410817641) 0.0 See_Comment [Automated messa ge] The system which generated this result transmitted reference range: 0.0 - 10.0 /100 WBCs. The reference range was not used to interpret this result as normal/abnormal. IPF % (test code = 0741288815) Lab Interpretation (test code = 79697-4) [facility]normal [facility] / [id number] 19:24:11* Test Item Value Reference Range Interpretation Comme nts PROTIME PATIENT (test code = 5964-2) See_Comment H [Automated messa ge] The system which generated this result transmitted reference range: 12.0 - 14.7 Seconds. The reference range was not used to interpret this result as normal/abnormal. INR (test code = 6301-6) HH Normal INR <1.1; Warfarin Therapeutic range 2.0 to 3.0 or 2.5 to 3.5, depending upon the indications. Lab Interpretation (test code = 09135-1) [facility]normal [facility] WITH [id number] 18:54:52* Test Item Value Reference Range Interpretation Comme nts WBC (test code = 6690-2) 7.72 See_Comment [Automated messa ge] The system which generated this result transmitted reference range: 4.30 - 11.10 10*3/?L. The reference range was not used to interpret this result as normal/abnormal. RBC (test code = 789-8) 4.58 See_Comment [Automated messa ge] The system which generated this result transmitted reference range: 3.93 - 5.25 10*6/?L. The reference range was not used to interpret this result as normal/abnormal. HGB (test code = 718-7) 13.9 g/dL 11.6-15.0 HCT (test code = 4544-3) 43.3 % 35.7-45.2 MCV (test code = 787-2) 94.5 fL 80.6-95.5 MCH (test code = 785-6) 30.3 pg 25.9-32.8 MCHC (test code = 786-4) 32.1 g/dL 31.6-35.1 RDW-SD (test code = 37049-1) 55.0 fL 39.0-49.9 H RDW-CV (test code = 788-0) 15.8 % 12.0-15.5 H PLT (test code = 777-3) 216 See_Comment [Automated messa ge] The system which generated this result transmitted reference range: 166 - 358 10*3/?L. The reference range was not used to interpret this result as normal/abnormal. MPV (test code = 52667-5) 11.8 fL 9.5-12.9 NRBC/100 WBC (test code = 6472100229) 0.0 See_Comment [Automated me ssage] The system which generated this result transmitted reference range: 0.0 - 10.0 /100 WBCs. The reference range was not used to interpret this result as normal/abnormal. NRBC x10^3 (test code = 5226621892) See_Comment [Automated messa ge] The system which generated this result transmitted reference range: 10*3/?L. The reference range was not used to interpret this result as normal/abnormal. GRAN MAT (NEUT) % (test code = 770-8) 80.8 % IMM GRAN % (test code = 1122137258) 0.40 % LYMPH % (test code = 736-9) 10.5 % MONO % (test code = 5905-5) 7.0 % EOS % (test code = 713-8) 0.9 % BASO % (test code = 706-2) 0.4 % GRAN MAT x10^3(ANC) (test code = 3495602026) 6.24 10*3/uL 1.88-7.09 IMM GRAN x10^3 (test code = 9729373312) 0.03 10*3/uL 0.00-0.06 LYMPH x10^3 (test code = 731-0) 0.81 10*3/uL 1.32-3.29 L MONO x10^3 (test code = 742-7) 0.54 10*3/uL 0.33-0.92 EOS x10^3 (test code = 711-2) 0.07 10*3/uL 0.03-0.39 BASO x10^3 (test code = 704-7) 0.03 10*3/uL 0.01-0.07 Lab Interpretation (test code = 49417-3) [facility] ([id number])2023-03-18 15:31:21* Test Item Value Reference Range Interpretation Comme nts NA (test code = 3854065549) 136 mmol/L 135-145 K (test code = 4093883036) 4.7 mmol/L 3.5-5.0 CL (test code = 3729127633) 103 mmol/L 98-108 CO2 TOTAL (test code = 0424345426) 24 mmol/L 23-31 AGAP (test code = 7350799236) 9 2-16 BUN (test code = 1428865914) 38 mg/dL 7-23 H GLUCOSE (test code = 8406787660) 112 mg/dL 70-110 H CREATININE (test code = 7457725720) 1.87 mg/dL 0.50-1.04 H TOTAL BILI (test code = 7803708711) 0.9 mg/dL 0.1-1.1 CALCIUM (test code = 7611751154) 9.3 mg/dL 8.6-10.6 T PROTEIN (test code = 6921212199) 6.6 g/dL 6.3-8.2 ALBUMIN (test code = 1820232361) 3.8 g/dL 3.5-5.0 ALK PHOS (test code = 6208769529) 92 U/L 34-122 ALTv (test code = 1742-6) 13 U/L 5-35 AST(SGOT) (test code = 7846696185) 21 U/L 13-40 eGFR (test code = 1131887383) 26.1 mL/min/1.73m2 JOSE (test code = JOSE) Association of Glomerular Filtration Rate (GFR) and Staging of Kidney Disease* + --+ --+ ------+| GFR (mL/min/1.73 m2) ?| With Kidney Damage ?| ?Without Kidney Damage+ --------+ --------+ +| ?>90 ?| ?Stage one ?| ? Normal ?+ ---+ ---+ -------+| ?60-89 ?| ?Stage two ?| ? Decreased GFR ? + --+ --+ ------+| ?30-59 ?| ?Stage three ?| ? Stage three ? + --+ --+ ------+| ?15-29 ?| ?Stage four ? | ? Stage four ?+ ---+ ---+ -------+| ?<15 (or dialysis) ? ?| ?Stage five ? | ? Stage five ?+ ---+ ---+ -------+ *Each stage assumes the associated GFR level has been in effect for at least three months. ?Stages 1 to 5, with or without kidney disease, indicate chronic kidney disease. Notes: Determination of stages one and two (with eGFR >59mL/min/1.73 m2) requires estimation of kidney damage for at least three months as defined by structural or functional abnormalities of the kidney, manifested by either:Pathological abnormalities or Markers of kidney damage (including abnormalities in the composition of the blood or urine or abnormalities in imaging tests). Lab Interpretation (test code = 77619-3) Abnormal [facility] WITH [id number] 15:24:40* Test Item Value Reference Range Interpretation Comme nts WBC (test code = 6690-2) 8.56 See_Comment [Automated [employer]] The system which generated this result transmitted reference range: 4.30 - 11.10 10*3/?L. The reference range was not used to interpret this result as normal/abnormal. RBC (test code = 789-8) 4.63 See_Comment [Automated [employer]] The system which generated this result transmitted reference range: 3.93 - 5.25 10*6/?L. The reference range was not used to interpret this result as normal/abnormal. HGB (test code = 718-7) 13.8 g/dL 11.6-15.0 HCT (test code = 4544-3) 43.1 % 35.7-45.2 MCV (test code = 787-2) 93.1 fL 80.6-95.5 MCH (test code = 785-6) 29.8 pg 25.9-32.8 MCHC (test code = 786-4) 32.0 g/dL 31.6-35.1 RDW-SD (test code = 13059-7) 55.7 fL 39.0-49.9 H RDW-CV (test code = 788-0) 16.4 % 12.0-15.5 H PLT (test code = 777-3) 169 See_Comment [Automated messa ge] The system which generated this result transmitted reference range: 166 - 358 10*3/?L. The reference range was not used to interpret this result as normal/abnormal. MPV (test code = 15600-1) 11.7 fL 9.5-12.9 NRBC/100 WBC (test code = 3394259736) 0.0 See_Comment [Automated TYFFON ssage] The system which generated this result transmitted reference range: 0.0 - 10.0 /100 WBCs. The reference range was not used to interpret this result as normal/abnormal. NRBC x10^3 (test code = 4185613242) See_Comment [Automated [employer] ge] The system which generated this result transmitted reference range: 10*3/?L. The reference range was not used to interpret this result as normal/abnormal. GRAN MAT (NEUT) % (test code = 770-8) 78.4 % IMM GRAN % (test code = 0222952008) 0.70 % LYMPH % (test code = 736-9) 9.3 % MONO % (test code = 5905-5) 8.9 % EOS % (test code = 713-8) 2.3 % BASO % (test code = 706-2) 0.4 % GRAN MAT x10^3(ANC) (test code = 7259118922) 6.71 10*3/uL 1.88-7.09 IMM GRAN x10^3 (test code = 8073466810) 0.06 10*3/uL 0.00-0.06 LYMPH x10^3 (test code = 731-0) 0.80 10*3/uL 1.32-3.29 L MONO x10^3 (test code = 742-7) 0.76 10*3/uL 0.33-0.92 EOS x10^3 (test code = 711-2) 0.20 10*3/uL 0.03-0.39 BASO x10^3 (test code = 704-7) 0.03 10*3/uL 0.01-0.07 Lab Interpretation (test code = 95682-6) [facility] with possible dfojbsohruvkx2908-03-32 01:54:39* Test Item Value Reference Range Interpretation Comme nts Height (test code = 0726949757) 59 in Weight (test code = 5148809778) 144 lbs Systolic BP (test code = 4010988744) 133 mmHg Diastolic BP (test code = 5818515321) 68 mmHg Heart Rate (test code = 8162138984) 96 bpm BSA (test code = 5821335339) 1.60 m2 Radiology Study observation (narrative) (test code = 02718-8) JOSE (test code = JOSE) ?Left?Ventricle: Left ventricle size is normal. Normal systolic function with a visually estimated EF of 60 - 65%. 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 ?Left?Atrium: Left atrium is dilated. Decreased appendage flow velocity. No thrombus in left atrial appendage. Spontaneous echo contrast visualized. ?Aortic?Valve: Mild transvalvular regurgitation. Left VentricleLeft ventricle size is normal. Normal systolic function with a visually estimated EF of 60 - 65%.Right VentricleRight ventricle size is normal. Normal systolic function.Left AtriumLeft atrium is dilated. Decreased appendage flow velocity. No thrombus in left atrial appendage. Spontaneous echo contrast visualized.Right AtriumRight atrium size is normal. There is a prominent Eustachian valve.IVC/SVCIVC was not well visualized.Mitral ValveMildly thickened leaflets. Mild mitral annular calcification. Trace transvalvular regurgitation.Tricuspid ValveTricuspid valve structure is normal.Aortic ValveTricuspid. Mildly thickened cusps. Mildly calcified cusps. Mild transvalvular regurgitation.Pulmonic ValveValve structure is normal.Ascending AortaNormal sized aorta. Atherosclerosis of the descending aorta with moderate thickening.PericardiumTr ivial pericardial effusion present.Study DetailsA complete transesophageal echocardiogram was performed using complete 2D, color flow Doppler and spectral Doppler. During the study the esophageal, transgastric and descending thoracic views were captured. The probe was inserted by the retirement assistant. There was no probe insertion difficulty.There were 1 attempts to insert the probe. Probe in 745. Probe out 750. Sedation and monitoring provided by anesthesia, see Epic documentation. There were no complications during the procedure. [facility] (NA, K, CL, CO2, GLUCOSE, BUN, CREATININE, CA)2023-02-10 11:27:21* Test Item Value Reference Range Interpretation Comme nts NA (test code = 3028291152) 138 mmol/L 135-145 K (test code = 4930730645) 4.0 mmol/L 3.5-5.0 CL (test code = 3730910707) 101 mmol/L 98-108 CO2 TOTAL (test code = 4875065262) 30 mmol/L 23-31 AGAP (test code = 7313286345) 7 2-16 BUN (test code = 1257526309) 31 mg/dL 7-23 H GLUCOSE (test code = 2646629360) 105 mg/dL 70-110 CREATININE (test code = 8867254428) 1.80 mg/dL 0.50-1.04 H CALCIUM (test code = 1906157353) 9.3 mg/dL 8.6-10.6 eGFR (test code = 5282207929) 27.4 mL/min/1.73m2 JOSE (test code = JOSE) Association of Glomerular Filtration Rate (GFR) and Staging of Kidney Disease* + --+ --+ ------+| GFR (mL/min/1.73 m2) ?| With Kidney Damage ?| ?Without Kidney Damage+ --------+ --------+ +| ?>90 ?| ?Stage one ?| ? Normal ?+ ---+ ---+ -------+| ?60-89 ?| ?Stage two ?| ? Decreased GFR ? + --+ --+ ------+| ?30-59 ?| ?Stage three ?| ? Stage three ? + --+ --+ ------+| ?15-29 ?| ?Stage four ? | ? Stage four ?+ ---+ ---+ -------+| ?<15 (or dialysis) ? ?| ?Stage five ? | ? Stage five ?+ ---+ ---+ -------+ *Each stage assumes the associated GFR level has been in effect for at least three months. ?Stages 1 to 5, with or without kidney disease, indicate chronic kidney disease. Notes: Determination of stages one and two (with eGFR >59mL/min/1.73 m2) requires estimation of kidney damage for at least three months as defined by structural or functional abnormalities of the kidney, manifested by either:Pathological abnormalities or Markers of kidney damage (including abnormalities in the composition of the blood or urine or abnormalities in imaging tests). Lab Interpretation (test code = 31752-5) [facility]normal [facility] 11:27:20* Test Item Value Reference Range Interpretation Comme nts MAGNESIUM (test code = 4834659413) 2.3 mg/dL 1.7-2.4 Lab Interpretation (test cod e = 19096-8) Normal [facility]23-[facility] 11:27:20* Test Item Value Reference Range Interpretation Comme nts MAGNESIUM (test code = 0357846727) 2.3 mg/dL 1.7-2.4 Lab Interpretation (test cod e = 72303-8) Normal [facility] / [id number] 11:14:56* Test Item Value Reference Range Interpretation Comme nts PROTIME PATIENT (test code = 5964-2) 17.3 See_Comment H [Automated [employer]] The system which generated this result transmitted reference range: 12.0 - 14.7 Seconds. The reference range was not used to interpret this result as normal/abnormal. INR (test code = 6301-6) 1.5 Normal INR <1.1; Warfarin Therapeutic range 2.0 to 3.0 or 2.5 to 3.5, depending upon the indications. Lab Interpretation (test code = 92661-1) Abnormal [facility] WITH [id number] 10:58:54* Test Item Value Reference Range Interpretation Comme nts WBC (test code = 6690-2) 6.26 See_Comment [Automated [employer]] The system which generated this result transmitted reference range: 4.30 - 11.10 10*3/?L. The reference range was not used to interpret this result as normal/abnormal. RBC (test code = 789-8) 3.96 See_Comment [Automated [employer]] The system which generated this result transmitted reference range: 3.93 - 5.25 10*6/?L. The reference range was not used to interpret this result as normal/abnormal. HGB (test code = 718-7) 11.6 g/dL 11.6-15.0 HCT (test code = 4544-3) 36.2 % 35.7-45.2 MCV (test code = 787-2) 91.4 fL 80.6-95.5 MCH (test code = 785-6) 29.3 pg 25.9-32.8 MCHC (test code = 786-4) 32.0 g/dL 31.6-35.1 RDW-SD (test code = 99722-4) 53.8 fL 39.0-49.9 H RDW-CV (test code = 788-0) 16.0 % 12.0-15.5 H PLT (test code = 777-3) 245 See_Comment [Automated [employer] ge] The system which generated this result transmitted reference range: 166 - 358 10*3/?L. The reference range was not used to interpret this result as normal/abnormal. MPV (test code = 73289-4) 11.9 fL 9.5-12.9 NRBC/100 WBC (test code = 0061438396) 0.0 See_Comment [Automated TYFFON ssage] The system which generated this result transmitted reference range: 0.0 - 10.0 /100 WBCs. The reference range was not used to interpret this result as normal/abnormal. NRBC x10^3 (test code = 5591833061) See_Comment [Automated [employer] ge] The system which generated this result transmitted reference range: 10*3/?L. The reference range was not used to interpret this result as normal/abnormal. GRAN MAT (NEUT) % (test code = 770-8) 69.6 % IMM GRAN % (test code = 6391456352) 0.50 % LYMPH % (test code = 736-9) 17.3 % MONO % (test code = 5905-5) 9.6 % EOS % (test code = 713-8) 2.2 % BASO % (test code = 706-2) 0.8 % GRAN MAT x10^3(ANC) (test code = 7837644761) 4.36 10*3/uL 1.88-7.09 IMM GRAN x10^3 (test code = 7270597293) 0.03 10*3/uL 0.00-0.06 LYMPH x10^3 (test code = 731-0) 1.08 10*3/uL 1.32-3.29 L MONO x10^3 (test code = 742-7) 0.60 10*3/uL 0.33-0.92 EOS x10^3 (test code = 711-2) 0.14 10*3/uL 0.03-0.39 BASO x10^3 (test code = 704-7) 0.05 10*3/uL 0.01-0.07 Lab Interpretation (test code = 15824-8) Abnormal [facility] WITH [id number] 10:58:54* Test Item Value Reference Range Interpretation Comme nts WBC (test code = 6690-2) 6.26 See_Comment [Automated [employer] ge] The system which generated this result transmitted reference range: 4.30 - 11.10 10*3/?L. The reference range was not used to interpret this result as normal/abnormal. RBC (test code = 789-8) 3.96 See_Comment [Automated [employer]] The system which generated this result transmitted reference range: 3.93 - 5.25 10*6/?L. The reference range was not used to interpret this result as normal/abnormal. HGB (test code = 718-7) 11.6 g/dL 11.6-15.0 HCT (test code = 4544-3) 36.2 % 35.7-45.2 MCV (test code = 787-2) 91.4 fL 80.6-95.5 MCH (test code = 785-6) 29.3 pg 25.9-32.8 MCHC (test code = 786-4) 32.0 g/dL 31.6-35.1 RDW-SD (test code = 13370-1) 53.8 fL 39.0-49.9 H RDW-CV (test code = 788-0) 16.0 % 12.0-15.5 H PLT (test code = 777-3) 245 See_Comment [Automated [employer]] The system which generated this result transmitted reference range: 166 - 358 10*3/?L. The reference range was not used to interpret this result as normal/abnormal. MPV (test code = 96853-3) 11.9 fL 9.5-12.9 NRBC/100 WBC (test code = 5460110763) 0.0 See_Comment [Automated me ssage] The system which generated this result transmitted reference range: 0.0 - 10.0 /100 WBCs. The reference range was not used to interpret this result as normal/abnormal. NRBC x10^3 (test code = 6011983126) See_Comment [Automated messa ge] The system which generated this result transmitted reference range: 10*3/?L. The reference range was not used to interpret this result as normal/abnormal. GRAN MAT (NEUT) % (test code = 770-8) 69.6 % IMM GRAN % (test code = 5684375142) 0.50 % LYMPH % (test code = 736-9) 17.3 % MONO % (test code = 5905-5) 9.6 % EOS % (test code = 713-8) 2.2 % BASO % (test code = 706-2) 0.8 % GRAN MAT x10^3(ANC) (test code = 4129592311) 4.36 10*3/uL 1.88-7.09 IMM GRAN x10^3 (test code = 1306684439) 0.03 10*3/uL 0.00-0.06 LYMPH x10^3 (test code = 731-0) 1.08 10*3/uL 1.32-3.29 L MONO x10^3 (test code = 742-7) 0.60 10*3/uL 0.33-0.92 EOS x10^3 (test code = 711-2) 0.14 10*3/uL 0.03-0.39 BASO x10^3 (test code = 704-7) 0.05 10*3/uL 0.01-0.07 Lab Interpretation (test code = 95377-8) Abnormal [facility] GLUCOSE (AUTOMATED)2023-02-09 21:04:24* Test Item Value Reference Range Interpretation Comme nts POCT GLU (test code = 6466693769) 94 mg/dL 70-110 Lab Interpretation (test cod e = 13685-4) Normal [facility] GLUCOSE (AUTOMATED)2023-02-09 21:04:24* Test Item Value Reference Range Interpretation Comme nts POCT GLU (test code = 4915519603) 94 mg/dL 70-110 Lab Interpretation (test cod e = 94326-9) Normal [facility] [id number] 14:45:08 * Test Item Value Reference Range Interpretation Comme nts TSH (test code = 6155347768) 0.08 See_Comment L Biotin has been reported to cause a negative bias, interpret results relative to patient's use of biotin. [Automated message] The system which generated this result transmitted reference range: 0.45 - 4.70 mIU/L. The reference range was not used to interpret this result as normal/abnormal. Lab Interpretation (test code = 84021-6) [facility]normal [facility] [id number] 14:45:08 * Test Item Value Reference Range Interpretation Comme nts TSH (test code = 2346880210) 0.08 See_Comment L Biotin has been reported to cause a negative bias, interpret results relative to patient's use of biotin. [Automated message] The system which generated this result transmitted reference range: 0.45 - 4.70 mIU/L. The reference range was not used to interpret this result as normal/abnormal. Lab Interpretation (test code = 56420-4) Abnormal [facility] 13:33:24* Test Item Value Reference Range Interpretation Comme nts FREE T4 (test code = 6223043317) 2.02 See_Comment [Automated messa ge] The system which generated this result transmitted reference range: 0.78 - 2.20 ng/dL:. The reference range was not used to interpret this result as normal/abnormal. Lab Interpretation (test code = 52173-8) Normal [facility] [id number] 13:33:24* Test Item Value Reference Range Interpretation Comme nts FREE T4 (test code = 8032228952) 2.02 See_Comment [Automated messa ge] The system which generated this result transmitted reference range: 0.78 - 2.20 ng/dL:. The reference range was not used to interpret this result as normal/abnormal. Lab Interpretation (test code = 81173-4) Normal [facility] [id number] 13:32:43* Test Item Value Reference Range Interpretation Comme nts FREE T3 (test code = 2285168446) 2.99 pg/mL 2.77-5.27 Lab Interpretation (test cod e = 26145-4) Normal [facility] [id number] 13:32:43* Test Item Value Reference Range Interpretation Comme nts FREE T3 (test code = 0355760095) 2.99 pg/mL 2.77-5.27 Lab Interpretation (test cod e = 13329-0) Normal [facility] [id number] 12:09:41* Test Item Value Reference Range Interpretation Comme nts TROPONIN I (test code = 6898638089) 0.007 ng/mL <=0.034 JOSE (test code = JOSE) Reference (Normal) Range (defined by the 99th percentile reference limit): <= 0.034 ng/mL Note: Cardiac troponin begins to rise 3-4 hours after the onset of ischemia. Repeat in 4-6 hours if the sample was drawn within 3-4 hours of the onset of the symptom and found normal. Diagnosis of myocardial injury is made with acute changes in cTn concentrations with at least one serial sample above the 99th percentile upper reference limit (URL), taken together with the patient's clinical presentation. Biotin has been reported to cause a negative bias, interpret results relative to patient's use of biotin. Lab Interpretation (test code = 42047-8) Normal [facility] [id number] 12:09:41* Test Item Value Reference Range Interpretation Comme nts TROPONIN I (test code = 2526893537) 0.007 ng/mL <=0.034 JOSE (test code = JOSE) Reference (Normal) Range (defined by the 99th percentile reference limit): <= 0.034 ng/mL Note: Cardiac troponin begins to rise 3-4 hours after the onset of ischemia. Repeat in 4-6 hours if the sample was drawn within 3-4 hours of the onset of the symptom and found normal. Diagnosis of myocardial injury is made with acute changes in cTn concentrations with at least one serial sample above the 99th percentile upper reference limit (URL), taken together with the patient's clinical presentation. Biotin has been reported to cause a negative bias, interpret results relative to patient's use of biotin. Lab Interpretation (test code = 65302-4) Normal [facility]-TERMINAL [id number] 12:06:20* Test Item Value Reference Range Interpretation Comme nts NT-proBNP (test code = 3381215064) 8010 pg/mL <=450 H JOSE (test code = JOSE) Biotin has been reported to cause a negative bias, interpret results relative to patient's use of biotin. Lab Interpretation (test code = 99788-2) Abnormal [facility]. METABOLIC PANEL (87076)2023-02-08 11:57:40* Test Item Value Reference Range Interpretation Comme nts NA (test code = 4193729730) 137 mmol/L 135-145 K (test code = 1764878875) 4.7 mmol/L 3.5-5.0 CL (test code = 7928167499) 105 mmol/L 98-108 CO2 TOTAL (test code = 1517174739) 23 mmol/L 23-31 AGAP (test code = 9268755750) 9 2-16 BUN (test code = 2859426677) 21 mg/dL 7-23 GLUCOSE (test code = 8760471132) 136 mg/dL 70-110 H CREATININE (test code = 4976364559) 1.77 mg/dL 0.50-1.04 H TOTAL BILI (test code = 2293253418) 1.0 mg/dL 0.1-1.1 CALCIUM (test code = 8180659737) 9.5 mg/dL 8.6-10.6 T PROTEIN (test code = 3519768570) 5.7 g/dL 6.3-8.2 L ALBUMIN (test code = 8489633519) 3.3 g/dL 3.5-5.0 L ALK PHOS (test code = 5826903931) 126 U/L 34-122 H ALTv (test code = 1742-6) 20 U/L 5-35 AST(SGOT) (test code = 2754886610) 22 U/L 13-40 eGFR (test code = 1309216764) 27.9 mL/min/1.73m2 JOSE (test code = JOSE) Association of Glomerular Filtration Rate (GFR) and Staging of Kidney Disease* + --+ --+ ------+| GFR (mL/min/1.73 m2) ?| With Kidney Damage ?| ?Without Kidney Damage+ --------+ --------+ +| ?>90 ?| ?Stage one ?| ? Normal ?+ ---+ ---+ -------+| ?60-89 ?| ?Stage two ?| ? Decreased GFR ? + --+ --+ ------+| ?30-59 ?| ?Stage three ?| ? Stage three ? + --+ --+ ------+| ?15-29 ?| ?Stage four ? | ? Stage four ?+ ---+ ---+ -------+| ?<15 (or dialysis) ? ?| ?Stage five ? | ? Stage five ?+ ---+ ---+ -------+ *Each stage assumes the associated GFR level has been in effect for at least three months. ?Stages 1 to 5, with or without kidney disease, indicate chronic kidney disease. Notes: Determination of stages one and two (with eGFR >59mL/min/1.73 m2) requires estimation of kidney damage for at least three months as defined by structural or functional abnormalities of the kidney, manifested by either:Pathological abnormalities or Markers of kidney damage (including abnormalities in the composition of the blood or urine or abnormalities in imaging tests). Lab Interpretation (test code = 55928-2) [facility] [id number] 11:56:39* Test Item Value Reference Range [facility]ation [facility] (test code = 3173-2) 37 See_Comment [Automated message] The system which generated this result transmitted reference range: 23 - 38 Seconds. The reference range was not used to interpret this result as normal/abnormal. JOSE (test code = JOSE) The [facility] patient population mean normal value for aPTT is 30 seconds. Lab Interpretation (test code = 54244-9) Normal [facility] / [id number] 11:54:38* Test Item Value Reference Range Interpretation Comme [facility] PROTIME PATIENT (test code = 5964-2) 19.5 See_Comment H [Automated messa ge] The system which generated this result transmitted reference range: 12.0 - 14.7 Seconds. The reference range was not used to interpret this result as normal/abnormal. INR (test code = 6301-6) 1.7 Normal INR <1.1; Warfarin Therapeutic range 2.0 to 3.0 or 2.5 to 3.5, depending upon the indications. Lab Interpretation (test code = 91876-4) Abnormal [facility] WITH [id number] 11:46:59* Test Item Value Reference Range Interpretation Comme nts WBC (test code = 6690-2) 8.02 See_Comment [Automated messa ge] The system which generated this result transmitted reference range: 4.30 - 11.10 10*3/?L. The reference range was not used to interpret this result as normal/abnormal. RBC (test code = 789-8) 3.81 See_Comment L [Automated messa ge] The system which generated this result transmitted reference range: 3.93 - 5.25 10*6/?L. The reference range was not used to interpret this result as normal/abnormal. HGB (test code = 718-7) 11.3 g/dL 11.6-15.0 L HCT (test code = 4544-3) 35.4 % 35.7-45.2 L MCV (test code = 787-2) 92.9 fL 80.6-95.5 MCH (test code = 785-6) 29.7 pg 25.9-32.8 MCHC (test code = 786-4) 31.9 g/dL 31.6-35.1 RDW-SD (test code = 90828-7) 54.8 fL 39.0-49.9 H RDW-CV (test code = 788-0) 16.2 % 12.0-15.5 H PLT (test code = 777-3) 203 See_Comment [Automated messa ge] The system which generated this result transmitted reference range: 166 - 358 10*3/?L. The reference range was not used to interpret this result as normal/abnormal. MPV (test code = 71570-1) 11.7 fL 9.5-12.9 NRBC/100 WBC (test code = 8138432278) 0.0 See_Comment [Automated TYFFON ssage] The system which generated this result transmitted reference range: 0.0 - 10.0 /100 WBCs. The reference range was not used to interpret this result as normal/abnormal. NRBC x10^3 (test code = 7998345837) See_Comment [Automated messa ge] The system which generated this result transmitted reference range: 10*3/?L. The reference range was not used to interpret this result as normal/abnormal. GRAN MAT (NEUT) % (test code = 770-8) 76.3 % IMM GRAN % (test code = 8381318580) 0.60 % LYMPH % (test code = 736-9) 12.6 % MONO % (test code = 5905-5) 8.1 % EOS % (test code = 713-8) 1.9 % BASO % (test code = 706-2) 0.5 % GRAN MAT x10^3(ANC) (test code = 8178675364) 6.12 10*3/uL 1.88-7.09 IMM GRAN x10^3 (test code = 2140232684) 0.05 10*3/uL 0.00-0.06 LYMPH x10^3 (test code = 731-0) 1.01 10*3/uL 1.32-3.29 L MONO x10^3 (test code = 742-7) 0.65 10*3/uL 0.33-0.92 EOS x10^3 (test code = 711-2) 0.15 10*3/uL 0.03-0.39 BASO x10^3 (test code = 704-7) 0.04 10*3/uL 0.01-0.07 Lab Interpretation (test code = 72304-0) [facility]-17 17:03:30* Test Item Value Reference Range Interpretation Comme nts Height (test code = 5442614532) 59 in Weight (test code = 7394979465) 144 lbs Systolic BP (test code = 8481024414) 108 mmHg Diastolic BP (test code = 5320068236) 51 mmHg Heart Rate (test code = 8406250081) 55 bpm BSA (test code = 7263488070) 1.60 m2 LVIDD (test code = 8451704708) 3.80 cm Left Ventricular End Diastolic Volume by Teichholz Method (test code = 1884138) 60.1 mL IVS (test code = 5749391893) 1.28 cm Interventricular Septum Diastolic Thickness by 2D (test code = 7001489) 1.28 cm LVPWD (test code = 0755716142) 1.25 cm PW (test code = 6380943675) 1.25 cm 0.6-1.1 EF(Teich) (test code = 5771547951) 74.40 % LVIDS (test code = 2864077030) 2.16 cm Left Ventricular End Systolic Volume by Teichholz Method (test code = 0541621) 15.4 mL FS (test code = 7872250783) 43 % EF - 2D (test code = 83054682) 74.40 % LVOT diameter (test code = 2577037168) 1.74 cm LVOT area (test code = 0265481611) 2.38 cm2 ACS (test code = 1254068007) 1.23 cm Ao root diam (test code = 7549809036) 2.50 cm Aortic root (test code = 9221526734) 2.5 cm Ao root annulus (test code = 9149485919) 2.5 cm LA size (test code = 9137428154) 4.1 cm E wave decelartion time (test code = 8650054929) 0.23 s MV Peak E Natanael (test code = 0663090460) 131.5 cm/s MR max PG (test code = 6566702255) 89.50 mm[Hg] MR max natanael (test code = 1680125822) 473.10 cm/s Mr max natanael (test code = 7410770928) 473.1 m/s MV Prop V (test code = 5925588501) 57.50 cm/s Tapse (test code = 8004247610) 1.78 cm TR Peak Natanael (test code = 1470511785) 218.2 cm/s Triscuspid Valve Regurgitation Peak Gradient (test code = 9031655410) 19.0 mmHg LVOT stroke volume (test code = 5700666610) 76.00 cm3 LVOT peak natanael (test code = 8665915171) 123.2 cm/s LVOT mn grad (test code = 6847382689) 2.9 mmHg AV LVOT peak gradient (test code = 0951945912) 6.1 mmHg LVOT peak VTI (test code = 3755030541) 31.9 cm LV V1 mean (test code = 5972041924) 79.60 cm/s Aortic valve mean velocity (test code = 4434129990) 135.9 cm/s Ao peak natanael (test code = 2777961624) 193.5 cm/s Ao VTI (test code = 2147207969) 48.8 cm AV area by cont VTI (test code = 3732485136) 1.6 cm2 AV area peak natanael (test code = 7074077096) 1.5 cm2 Ao max PG (test code = 0455460582) 15.00 mm[Hg] AV peak gradient (test code = 7901824576) 15.0 mmHg AV valve area (test code = 9455739191) 1.56 cm2 AV mean gradient (test code = 1093069886) 8.6 mmHg AV regurgitation pressure 1/2 time (test code = 3150819426) 569.0 ms AI dec slope (test code = 4791664066) 193.10 cm/s2 AI max natanael (test code = 6792636853) 375.10 cm/s AI max PG (test code = 4665916463) 56.30 mm[Hg] LAV(MOD-sp4) (test code = 5754331930) 87.20 mL Radiology Study observation (narrative) (test code = 04988-0) JOSE (test code = JOSE) ?Left?Ventricle: Left ventricle size is normal. Mildly increased wall thickness. Normal wall motion. Hyperdynamic systolic function with a visually estimated EF of greater than 65%. ?Right?Ventricle: Right ventricle size is normal. Normal systolic function. ?Tricuspid?Valve: Insufficient tricuspid regurgitation jet to estimate RVSP, but probably normal. ?RA pressure is 0-5 mmHg. ?Left?Atrium: Left atrium is mildly dilated. Left VentricleLeft ventricle size is normal. Mildly increased wall thickness. Normal wall motion. Hyperdynamic systolic function with a visually estimated EF of greater than 65%. Unable to assess diastolic function due to arrhythmia. Patient was in atrial flutter.Right VentricleRight ventricle size is normal. Normal systolic function.Left AtriumLeft atrium is mildly dilated.Right AtriumRight atrium size is normal.IVC/SVCIVC diameter is less than or equal to 21 mm and decreases greater than 50% during inspiration; therefore the estimated right atrial pressure is normal (~0-5 mmHg).Mitral ValveMildly thickened leaflets. Mild mitral annular calcification. Trace transvalvular regurgitation.Tricusp id ValveTricuspid valve structure is normal. Trace transvalvular regurgitation. Insufficient tricuspid regurgitation jet to estimate RVSP, but probably normal. RA pressure is 0-5 mmHg.Aortic ValveAortic valve opens well. Mildly thickened cusps. Mildly calcified cusps. Mild transvalvular regurgitation.Pulmoni c ValveNot well visualized. Trace transvalvular regurgitation.Ascendi ng AortaNormal sized aorta.PericardiumTriv ial pericardial effusion present.Study DetailsStudy quality was adequate. A complete echocardiogram was performed using 2D, color flow Doppler and spectral Doppler. The apical, parasternal and subcostal views were obtained. [facility] [id number] 11:24:43* Test Item Value Reference Range Interpretation Comme nts NT-proBNP (test code = 4930377086) 8580 pg/mL <=450 H JOSE (test code = JOSE) Biotin has been reported to cause a negative bias, interpret results relative to patient's use of biotin. Lab Interpretation (test code = 29852-0) [facility]normal [facility] (NA, K, CL, CO2, GLUCOSE, BUN, CREATININE, CA)2023-01-17 11:16:02* Test Item Value Reference Range Interpretation Comme nts NA (test code = 5942161164) 139 mmol/L 135-145 K (test code = 4768518045) 4.5 mmol/L 3.5-5.0 CL (test code = 7722919017) 106 mmol/L 98-108 CO2 TOTAL (test code = 2970409365) 26 mmol/L 23-31 AGAP (test code = 2658991652) 7 2-16 BUN (test code = 5460969592) 39 mg/dL 7-23 H GLUCOSE (test code = 6961367351) 99 mg/dL 70-110 CREATININE (test code = 6497173442) 1.82 mg/dL 0.50-1.04 H CALCIUM (test code = 9949522219) 11.4 mg/dL 8.6-10.6 H eGFR (test code = 7993016201) 27.0 mL/min/1.73m2 JOSE (test code = JOSE) Association of Glomerular Filtration Rate (GFR) and Staging of Kidney Disease* + --+ --+ ------+| GFR (mL/min/1.73 m2) ?| With Kidney Damage ?| ?Without Kidney Damage+ --------+ --------+ +| ?>90 ?| ?Stage one ?| ? Normal ?+ ---+ ---+ -------+| ?60-89 ?| ?Stage two ?| ? Decreased GFR ? + --+ --+ ------+| ?30-59 ?| ?Stage three ?| ? Stage three ? + --+ --+ ------+| ?15-29 ?| ?Stage four ? | ? Stage four ?+ ---+ ---+ -------+| ?<15 (or dialysis) ? ?| ?Stage five ? | ? Stage five ?+ ---+ ---+ -------+ *Each stage assumes the associated GFR level has been in effect for at least three months. ?Stages 1 to 5, with or without kidney disease, indicate chronic kidney disease. Notes: Determination of stages one and two (with eGFR >59mL/min/1.73 m2) requires estimation of kidney damage for at least three months as defined by structural or functional abnormalities of the kidney, manifested by either:Pathological abnormalities or Markers of kidney damage (including abnormalities in the composition of the blood or urine or abnormalities in imaging tests). Lab Interpretation (test code = 35982-6) Abnormal [facility] WITH [id number] 10:27:58* Test Item Value Reference Range Interpretation Comme nts WBC (test code = 6690-2) 8.63 See_Comment [Automated [employer]] The system which generated this result transmitted reference range: 4.30 - 11.10 10*3/?L. The reference range was not used to interpret this result as normal/abnormal. RBC (test code = 789-8) 4.23 See_Comment [Automated [employer]] The system which generated this result transmitted reference range: 3.93 - 5.25 10*6/?L. The reference range was not used to interpret this result as normal/abnormal. HGB (test code = 718-7) 12.8 g/dL 11.6-15.0 HCT (test code = 4544-3) 39.6 % 35.7-45.2 MCV (test code = 787-2) 93.6 fL 80.6-95.5 MCH (test code = 785-6) 30.3 pg 25.9-32.8 MCHC (test code = 786-4) 32.3 g/dL 31.6-35.1 RDW-SD (test code = 02629-8) 51.1 fL 39.0-49.9 H RDW-CV (test code = 788-0) 15.1 % 12.0-15.5 PLT (test code = 777-3) 223 See_Comment [Automated messa ge] The system which generated this result transmitted reference range: 166 - 358 10*3/?L. The reference range was not used to interpret this result as normal/abnormal. MPV (test code = 09081-8) 12.3 fL 9.5-12.9 NRBC/100 WBC (test code = 7564847216) 0.0 See_Comment [Automated TYFFON ssage] The system which generated this result transmitted reference range: 0.0 - 10.0 /100 WBCs. The reference range was not used to interpret this result as normal/abnormal. NRBC x10^3 (test code = 7332431673) See_Comment [Automated [employer] ge] The system which generated this result transmitted reference range: 10*3/?L. The reference range was not used to interpret this result as normal/abnormal. GRAN MAT (NEUT) % (test code = 770-8) 67.4 % IMM GRAN % (test code = 9594717829) 0.30 % LYMPH % (test code = 736-9) 21.8 % MONO % (test code = 5905-5) 8.7 % EOS % (test code = 713-8) 1.3 % BASO % (test code = 706-2) 0.5 % GRAN MAT x10^3(ANC) (test code = 2558592858) 5.82 10*3/uL 1.88-7.09 IMM GRAN x10^3 (test code = 5512521991) 0.03 10*3/uL 0.00-0.06 LYMPH x10^3 (test code = 731-0) 1.88 10*3/uL 1.32-3.29 MONO x10^3 (test code = 742-7) 0.75 10*3/uL 0.33-0.92 EOS x10^3 (test code = 711-2) 0.11 10*3/uL 0.03-0.39 BASO x10^3 (test code = 704-7) 0.04 10*3/uL 0.01-0.07 Lab Interpretation (test code = 18668-7) [facility]normal [facility] Consult Notes Date/Time Note Provider Source 2023-09-06 10:53:59 [id number] FT NdwCe0YZTC/DtsKBhw2hrH6549-27-20W15:53:59A ssociated Order(s): CONSULT SPEECH Speech-Language PathologyClinical Swallow Evaluation09/06/2023Lovely Welch : 1945 Age/Sex: 78 year old female IN/OUT: [id number] Physician: Alia Rubi, MDDate of Referral: 4Reason for Referral: dysphagiaDate of Admission/Onset: 08/29/2023SUBJECTIVE:Patient awake with daughter. They report decreased intake, but no nausea/vomiting since Tuesday. Patient states that for up to a week, she has had discomfort swallowing meds.OBJECTIVE: is being seen for a clinical swallow evaluation. Lovely Welch is a 78 year old female admitted for nausea/vomiting, fatigue, SOB with PMH significant for recent pneumonia, unimproved with Zofran, CHF, CKD, CVA, HTN.Pertinent Imaging:XR CHEST 1 VWResult Date: 09/05/2023FINDINGS/IMPRESSION: Lungs: The lungs are adequately expanded. Persistent moderate left and dubqz-ck-erkudggv right pleural effusions with underlying atelectasis or pneumonia. Heart/Mediastinum: Stable cardiomegaly. Calcified aorta and prominent central pulmonary arteries, stable Bones and soft tissues: Osteopenia.CT ABDOMEN PELVIS WO CONTRASTResult Date: 09/02/2023Impression: Moderate to large bilateral pleural effusions. There is complex hyperdensity in the left pleural fluid suggesting a component of hemorrhage. Stable, moderate pericardial effusion. Mild ascites. Diffuse skin thickening and body wall edema in bilateral flank regions and thighs, which has increased since the prior CT. No evidence of hematoma in these regions. Stable L1 compression fracture. RL: 781 XR CHEST 1 VWResult Date: 09/02/2023ecreased left lung volume. Interval increase in size of the left pleural effusion, now moderate. No pneumothorax. The heart remains enlarged. No osseous abnormality.XR CHEST 1 VWResult Date: 08/29/2023Impression: Stable cardiomegaly. Moderate to large left and small right pleural effusions with associated atelectasis versus infiltrate. END REPORT RL: 460 AFC: [id number] US ABDOMEN LIMITEDResult Date: 08/13/2023Impression: No evidence of cholelithiasis. No gallbladder wall thickening or ductal dilatation. HS:Y AFC:[id number] RL: 6339 XR CHEST 1 VWResult Date: 08/13/2023Findings of cardiomegaly, trace right pleural effusion and diffuse bilateral interstitial opacities suggestive of mild pulmonary edema, grossly unchanged compared to the prior. Preliminary Report Dictated by Resident: Yessy Peralta I, Moises Erickson MD., have reviewed this study and agree with the above report.CT CHEST PULMONARY ANGIOGRAMResult Date: 08/12/2023No evidence of acute pulmonary embolism through the level of the subsegmental branches. AIDOC (computer aided detection software) confirms no filling defects in the pulmonary arteries. Opacities in both lungs may related to aspiration changes or pneumonia and atelectasis. Cardiomegaly. Small pericardial effusion. Slight prominence of the main pulmonary artery may be related to pulmonary artery hypertension. Small hiatal hernia. Preliminary Report Dictated by Resident: Yessy Peralta I, Susan Terry MD., have reviewed this study and agree with the above report.Previous GRIPPER MACHINE OPERATOR Services/Swallow History:Patient seen 05/09/2020 for clinical swallowing evaluation, found to have subjectively WFL and was recommended a regular-textured diet with thin liquids and swallow precautions: sit fully upright/chair and remain upright for 30 minutes after mealsPatient again seen 05/26/2023 for clinical swallowing evaluation, found to have subjectively functional oropharyngeal swallowing and recommended a regular (IDDSI level 7)- textured diet with thin liquids (IDDSI level 0). Crush meds if crushable. Patient also had N/V during this admission and GRIPPER MACHINE OPERATOR suspected that swallowing problems could have been related to anticipation of vomiting after swallowing.Past Medical History:Diagnosis DateAsymptomatic bilateral carotid artery stenosisseen on imaging 12/2018Bilateral renal artery stenosis 11/16/2017Stent place in the Left renal arteryChronic combined systolic and diastolic congestive heart failureCKD (chronic kidney disease) stage 3, GFR 30-59 ml/minCVA (cerebral vascular accident)In 40s, reportedly related to thyroid surgeryHTN (hypertension)Hypothyroidismsurgically removed due to goiterNeuropathyPast Surgical History:Procedure Laterality DateAORTOGRAM N/A 06/01/2023Surgeon: Prince Salter MD; [facility] N/A 11/25/2017Surgeon: Blair Caballero MD; Location: [facility]oscopy ([facility]) OR LocationESOPHAGOGASTRODUODENOSCOPY N/A 11/25/2017Surgeon: Blair Caballero MD; Location: [facility]oscopy ([facility]) OR LocationPHACOEMULSIFICATION OF CATARACT WITH INTRAOCULAR LENS IMPLANT Right 09/07/2018Surgeon: Isiah Garcia MD; Location: [facility] JeffPHACOEMULSIFICATION OF CATARACT WITH INTRAOCULAR LENS IMPLANT Left 10/12/2018Surgeon: Isiah Garcia MD; Location: [facility] OR LocationTHYROIDECTOMY in her 40s.due to goiterTONSILLECTOMYGeneral Behavior: Alert, Calm, and CooperativeHearing: WFL for speechRespiratory Status: nasal cannula: 2L/minOrientation/Cognition:- Patient oriented to: person, place, and situation- Response type: verbal- Follows 1-step commands: YesCurrent Diet Texture/Means of Nutrition: regular (IDDSI level 7)-textured diet with thin liquids (IDDSI level 0)Oral Motor ExamDentition and Oral Cavity: dentate, natural dentition, some missing teeth, dry oral mucosa, and bruising to underside of tongue?Face within normal limits and symmetricalJaw within normal limits and symmetricalLips within normal limits and symmetricalTongue within normal limits and midline on protrusionPalate within normal limits and symmetricalVocal Quality hoarse and weakSpeech clear/intelligibleCLINICAL SWALLOW EVALUATIONSwallows on command: YesHandles Secretions: YesVolitional Cough: presentSpontaneous Cough: NoPO trials were administered by GRIPPER MACHINE OPERATOR. Patient was provided with multiple bites/sips of thin liquid (0), nectar/mildly-thick liquid (2), pudding (4), and minced & moist solid (5) consistencies with the following observations:Oral Stage Anterior leakage of bolus not observedPocketing of bolus not observedSubjectively prolonged oral phase not observedOral residue not observedMastication did not testPharyngeal Stage Subjectively reduced laryngeal elevation not observedCoughing or throat clearing not observedChange in voice quality not observedMultiple swallows subjectively not observedRespiratory sufficiency and coordination WFL - no increased work of breathing and/or oxygen sats and respiratory rate remained stableReport of globus sensation yes3 oz water challenge passedPatient/Family/Staff education: Provided verbally. Discussed findings of evaluation, recommendations and GRIPPER MACHINE OPERATOR plan of care. Educated about swallow precautions. Patient/family verbalized understanding and is in agreement with plan of care. RN and referring provider notified of findings and recommendations.Patient/Family goal: to swallow with less effort/discomfortASSESSMENT/IMPRESSIONS:Patrick Welch appears to present with safe, functional swallowing c/b timely swallow initiation with adequate laryngeal elevation and no coughing, choking, or change in vocal quality observed (note: this exam can not rule out silent aspiration). Patient did appear to have some reluctance with swallowing and noted globus sensation / "feeling of too much in the mouth and throat, not going anywhere". Patient with recent vomiting; stomach acid ejected during vomiting may have caused burning and damage to esophagus up to oropharynx, which may be contributing to globus sensation. Patient also noted to have discoloration and raw-appearing edges on tongue, which may indicate further damage following regurgitation of acid. Of note, patient with similar symptoms during hospitalization in May 2023.Patient appears safe to continue PO intake. However, for improved comfort with swallowing, she may benefit from swallowing precautions as detailed below.Prognosis is good for safe po intake with adherence to swallow precautions due to above findings. Prognosis is favorable for meeting nutrition/hydration needs by mouth with time and adherence to swallow precautions due to above findings.RECOMMENDATIONS/GOALS:1. Recommend patient continue a regular (IDDSI level 7)-textured diet with thin liquids (IDDSI level 0) and swallow precautions: sit fully upright/in chair, small single bites/sips, remain upright after PO intake, and crush meds and mix in puree if OK with MD2. Recommend GRIPPER MACHINE OPERATOR therapy 2-5x/wk for 15-45 min/session while in-house to address the following goals:Swallowing:- Patient will tolerate the safest, least restricted po diet texture without overt s/sx of aspiration or other negative effects on medical conditionAlexandra (Rafa) MS Richard, WGL-YEDFmpyti-Pwtmqxio PathologistCharl[place] Speech: [phone] ([place] office) 75270-6Efitpdx sjwgPE1951-20-65K05:59:23Consult noteTXT1.2.840.381217.1.13.104.2.7.2.53216 9|[id number] for patient agse31628-2Qjddvla noteLNNARRATIVEFormatted C-CDA narrative textUT[address] Le[id number] LKPEOKJAJYCRQQKG8683-25-36E15:59:231.2.840 .297683.1.72.3.15|1.2.840.960376.1.13.104. 2.7.2.727879_[id number] [facility] 2023-09-05 14:32:19 wTKUGBNcbLOKz6mmkuKNS5b42vROhb8fJV+Ju+3v kgSvYzShpO2JKXJbJXnse34400-06-72J44:32:19A ssociated Order(s): CONSULT VASCULAR ACCESS APCS Vascular Access ServicesMID-LINE CKMXVZL89 year old /White female.Indication/Diagnosis: intravenous accessOkay per Cadence Murillo ADVERTISING AGENCY MANAGER with nephro for line placement.See procedure note. 47761-6Klbljxa rlkgLQ3120-59-87T82:33:38Consult noteTXT1.2.840.409418.1.13.104.2.7.2.54352 9|[id number] for patient ijja48767-5Ewxolej noteLNNARRATIVEFormatted C-CDA narrative text[address] Ry[id number] CSTDYPGKVDKMNYID6176-47-75V35:33:381.2.840 .642926.1.72.3.15|1.2.840.825435.1.13.104. 2.7.2.727879_[id number] [facility] 2023-09-05 13:17:00 yRkcMHl8d9SXnfBkwdZ8OdZ6C/z29PQDeEDZE4/k +j KeeH/tB0s+OfYNxQdoHo8B4235-63-79X85:17:00A ssociated Order(s): CONSULT ADULT PHYSICAL THERAPY Patient agreeable to working with physical therapy. Patient met semi reclined in bed.Recommend nursing staff utilize mechanical lift to safely assist patient with mobility out of the bed or chair.PHYSICAL THERAPY EVALUATIONConsult received, chart reviewed and evaluation complete this date. Patient is referred to PT for evaluation and treatment. Patient is a 78 year old female who presents to hospital for STEPHY (acute kidney injury) [N17.9] .Discharge Recommendations:Therapy Needs and Potential:Patient would benefit from continued physical therapy services to address: decline in bed mobility decline in transfers decline in gait and/or balance decreased strength decreased endurancePatient demonstrates good potential to improve and meet therapy goals with further physical therapy services.Challenges to Home Transition:increased risk of fallsEquipment recommendations:wheelchairWheelchair:I certify that Lovely Welch is under my care and that I had a face to face encounter with this patient on 09/05/23.The patient is unable to safely complete ADL s with the assistance from a cane, walker or crutches due to weakness.I am ordering and certify that based on my findings, the following is medically necessary durable medical equipment: lightweight wheelchair - requires reduced weight to self propel while engaging in activities in the home that cannot be performed in a standard wheelchair due to upper body weakness.The patient has weakness that significantly impairs his/her ability to participate in one or more mobility-related activities of daily living such as toileting, feeding, dressing, grooming, and bathing in customary locations in the home.Prevents the patient from accomplishing an MRADL entirely, or places the patient at reasonably determined heightened risk of morbidity or mortality secondary to the attempts to perform an MRADL or prevents the patient from completing an MRADL within a reasonable time frame.The patient s weakness cannot be sufficiently resolved by the use of an appropriately fitted cane or walker.The patient s home provides adequate access between rooms, maneuvering space and surfaces for use of the manual wheelchair that is provided.Use of a manual wheelchair will significantly improve the patient s ability to participate in MRADLs and the patient will use it on a regular basis in the home.The patient has not expressed an unwillingness to use the manual wheelchair that is provided in the home..Height:Ht Readings from Last 1 Encounters:08/29/23 4' 11" (1.499 m)Weight:Wt Readings from Last 1 Encounters:08/29/23 122 lb 5.7 oz (55.5 kg)Duration of need: 99 months.Current Functional Status and/or Treatment:AM-PAC 6 Clicks (Raw Score 0=Dependent, 24=Independent; Low function Raw Score 0= Dependent, 32=Independent):Raw Score - Basic Mobility : 7T-Scale Score - Basic Mobility : 19.39Bed Mobility:Rolling: Maximum AssistanceScooting in supine: Total AssistanceSupine-sit: Total AssistanceSitting balance PoorScooting to edge of bed: Total AssistanceSit to supine: Total AssistancePatient educated RE proper UE/LE positioning, proper sequencingTransfers:defer due to poor activity tolerance, LE collapsing with upright postureAmbulation:defer due to poor activity tolerance, unable to shift weight effectively to allow reciprocal limb advancement forward or sidewaysTherapeutic exercise:patient educated in General strengthening., instructed patient in the following: ankle pumps, hip abduction/adduction, long arc quads, patient/caregiver instructed to perform HEP 3 times per day, 10 repetitions., and patient/caregiver demonstrates understanding of instructions.After session, patient semi reclined in bed. Call button provided. Nurse informed. BP has been monitored. Pre-treatment was 118/79, O2SAt 94% with 1 liter of O2. Rachel-treatment 127/102, O2Sat 94% with 1 lit of oxygen, Post-treatment 119/81, O2Sat 94% with 1 lit of O2, HR 92. Lead wires accidentally got disconnected, nurse Kallie informed who reconnected wires. No adverse event post-treatment, main complaint was feeling tired and weak. Daughter present who verbalized that patient has not been eating and sleeping enough for past several days.PLAN OF CARE:While in the hospital, PT will follow patient at least 2 times per week,once or twice a day, per patient's tolerance and needs.See below for complete details.Admit Date: 08/29/2023Hospital Diagnosis:STEPHY (acute kidney injury) [N17.9]PT Diagnosis: Difficulty walking and WeaknessWeight Bearing Precaution: NAGeneral Precautions: PPE used:Gloves, Gown, and N-95 Mask, Fall, Covid isolation,Hernandez catheter, IV , oxygen: Nasal canulaBracing/Cast present or required:N/APMH:Past Medical History:Diagnosis DateAsymptomatic bilateral carotid artery stenosisseen on imaging 12/2018Bilateral renal artery stenosis 11/16/2017Stent place in the Left renal arteryChronic combined systolic and diastolic congestive heart failureCKD (chronic kidney disease) stage 3, GFR 30-59 ml/minCVA (cerebral vascular accident)In 40s, reportedly related to thyroid surgeryHTN (hypertension)Hypothyroidismsurgically removed due to goiterNeuropathyPSH:Past Surgical History:Procedure Laterality DateAORTOGRAM N/A 06/01/2023Surgeon: Prince Salter MD; [facility] OR LOCATIONCESAREAN SECTIONCOLONOSCOPY N/A 11/25/2017Surgeon: Blair Caballero MD; Location: Endoscopy () OR LocationESOPHAGOGASTRODUODENOSCOPY N/A 11/25/2017Surgeon: Blair Caballero MD; Location: [facility] ([facility]) OR LocationPHACOEMULSIFICATION OF CATARACT WITH INTRAOCULAR LENS IMPLANT Right 09/07/2018Surgeon: Isiah Garcia MD; [facility] [place] [facility] CAT[facility]ACT WITH INTRAOCULAR LENS IMPLANT Left 10/12/2018Surgeon: Isiah Garcia MD; Location: [place] OR LocationTHYROIDECTOMY in her 40s.due to goiterTONSILLECTOMYPrior Living Situation: in a house and with their son, single level house with no steps/rampDME: Single Point Cane, Rolling Walker, Wheel ChairPrior level of Mobility: house hold ambulationSuspected ischemic or hemorraghic stroke:NoSubjective: Patient c/o not feeling goodPatient/Family Goals: Get strongerPatient/Family verbalizes understanding of condition: YesPAIN:denies pain before and after sessionCOMMUNICATIONPrimary Language: EnglishAble to Verbalize needs: YesVision:good; no issues reported Hearing:good; no issues reportedORIENTATION/COGNITION:Oriented to: person and situationAwake: Yes Alert: Yes Dizzy: NoFollows Commands: Yes1-Step Yes Multi-Step YesInconsistent: NoNEUROLOGICALLight Touch: within functional limits bilateral LE,Heel to ortiz: WNLTone: WNLBALANCE:Sitting: Static: Poor Dynamic: PoorStanding: Static: Poor Dynamic: NTRANGE OF MOTION: within functional limits bilateral LE,STRENGTH: 3-/5 (F-), bilateral LEENDURANCE: Poor, Nasal canulaSKIN INTEGRITY: intact,PROBLEM LIST: Decline in bed mobility, Decline in gait, Decline in transfers, Decreased strength, Decreased endurance, and Decreased balanceASSESSMENT: Patient is a 78 year old female seen secondary to the above listed diagnosis. Patient would benefit from continued PT to address the above listed deficits to maximize independence and safety with functional mobility.Rehabilitation Potential: goodGoals: The following goals are to maximize independence and safety with functional mobility to eventually return to prior living situation and prior functional status.Upon discharge, patient and/or family will demonstrate the followin. Rolling: Minimal AssistanceScooting in supine: Minimal AssistanceSupine-sit: Minimal AssistanceSitting balance GoodScooting to edge of bed: Minimal AssistanceSit to supine: Minimal Assistance2. sit-stand: Minimal AssistanceStand to sit: Minimal Assistance using Rolling Walker3. Minimal Assistance with ambulation, Feet: 50 using least assistive device.Treatment Plan: Gait training, Therapeutic exercise, Transfer training, Balance training, Bed mobility training, Equipment needs assessment, and Safety education, patient/caregiver educationPATIENT EDUCATION: Patient and Family member provided with preferred teaching of verbal information, written information, and demonstration on role of PT, plan of care, . Shows readiness to learn. Verbal instruction and Written material teaching provided. Individual is able to read and verbalizes understanding of teaching provided and needs reinforcement of teaching.Total Time Tx Codes in Minutes: 23 minTotal Treatment Time in Minutes: 28 Mary physical therapy evaluation of high complexity was completed based on meeting at the criteria below:A history of present problem with at least 3 or more personal factors (includes environmental factors) and/or comorbidities that impact the plan of careAn examination of body systems using standardized tests and measures addressing a total of at least 4 or more elements from any of the following: body structures and functions, activity limitations, and/or participation limitationsA clinical presentation with unstable and unpredictable characteristicsScooter [place]án[place] [address]-8Plfqgsg adkqBC3776-27-47H13:12:56Consult noteTXT1.2.840.346050.1.13.104.2.7.2.96372 9|[id number] for patient ejjp59339-1Hgfidnx noteLNNARRATIVEFormatted C-CDA narrative textUT[address] Ol[id number] QYFPWEJUGXUNSJMQ0875-39-10Y06:12:561.2.840 .563526.1.72.3.15|1.2.840.389812.1.13.104. 2.7.2.727879_[id number] [facility] 2023-09-01 11:43:00 ff6K3C+ZmKc4HymdpLV1FFxKVEMrTslJwR3rXRv1 XV P7aqpowwqdO8P9nUFq6QXp3828-72-06I26:43:00A ssociated Order(s): CONSULT ADULT OCCUPATIONAL THERAPY OT GENERAL EVALUATIONConsult received via [facility], EMR reviewed and evaluation completed 09/01/23. Patient referred to occupational therapy for evaluation and treatment secondary to COVID+, nausea and vomiting, severe hyponatremia, dehydration. Patient with h/o A-fib, L1 compression fx (happened in October per daughter). Patient agreeable to participate in occupational therapy. Daughter present throughout sessionDischarge Recommendations:Therapy Needs and Potential:- Patient would benefit from continued skilled occupational therapy services to address: Decline in basic activities of daily living, Decreased strength, and Decreased endurance- Patient demonstrates good potential to improve and meet therapy goals with further skilled occupational therapy services.- Patient appears motivated to improve their B/IADLs and return to their previous level of function.- Patient exhibits limited activity tolerance.- Patient able to follow commands: 1-step Yes, Multi-step Yes, Inconsistencies NoChallenges to Home Transition:- Requires physical assistance for BADLS- Requires physical assistance for IADLS- Increased risk of fallsEquipment Recommendations:NonePLAN OF CARE: At least 2x/weekPrecautions:Weight bearing status: NAGeneral: PPE Utilized: Gloves, Gown, and N-95 Mask, Fall, and extended respiratory, ICU continuous monitoring, O2 via NCBracing: daughter describes an abdominal binder that patient uses at home for back "support". Was not prescribed by MD, states they showed him at an appointment and he was ok with her wearing it.Vitals-115/81 MAP 91 HR 106 SpO2 98% on 2LPMCurrent Occupational Performance and/or Treatment:AM-PAC 6 Clicks (Raw Score 0=Dependent, 24=Independent; Low function Raw Score 0= Dependent, 32=Independent):Raw Score - Daily Activity: 11T-Scale Score - Daily Activity: 29.04Feeding: Supervision,Grooming: Supervision, to brush her teeth and wash her face in bedToileting Hygiene: Total Assistance, Hernandez- therapist did check patient to see if she was soiled because she reported she thought she might be and she was clean.Functional Mobility: Patient declined getting out of bed. She was dry heaving during session and generally feeling really bad. Daughter and nurse endorse she was a Min A transfer to bedside commode and also to recliner this morning but only stayed up in chair for about 5 minutes due to pain. Patient was dependent x 2 to scoot up in bed and Mod A to roll to L for pillow to be placed under R hip.Patient/caregiver educated on:Adaptive equipment , ADL training, Compensatory techniques/adaptive strategies, Fall prevention, Role of OT, and Safety awarenessPatient left left semisidelying in bed with call polk in reach. Daughter present and Vital signs stable . Please, see full evaluation below for more detail.OT EVALUATION:78 year old female Admit date: 08/29/2023 Date of onset: 08/29/23Admit Diagnosis: STEPHY (acute kidney injury) [N17.9]OT Diagnosis: Impaired BADL independence and Impaired self-care mobilityPMH:Past Medical History:Diagnosis DateAsymptomatic bilateral carotid artery stenosisseen on imaging 12/2018Bilateral renal artery stenosis 11/16/2017Stent place in the Left renal arteryChronic combined systolic and diastolic congestive heart failureCKD (chronic kidney disease) stage 3, GFR 30-59 ml/minCVA (cerebral vascular accident)In 40s, reportedly related to thyroid surgeryHTN (hypertension)Hypothyroidismsurgically removed due to goiterNeuropathyPSH:Past Surgical History:Procedure Laterality DateAORTOGRAM N/A 06/01/2023Surgeon: Prince Salter MD; Location[facility] OR LOCATIONCESAREAN SECTIONCOLONOSCOPY N/A 11/25/2017Surgeon: Blair Caballero MD; Location: [facility] ([facility]) OR LocationESOPHAGOGASTRODUODENOSCOPY N/A 11/25/2017Surgeon: Blair Caballero MD; Location: [facility] ([facility]) OR LocationPHACOEMULSIFICATION OF CATARACT WITH INTRAOCULAR LENS IMPLANT Right 09/07/2018Surgeon: Isiah Garcia MD; Location: [facility] LocationPHACOEMULSIFICATION OF CATARACT WITH INTRAOCULAR LENS IMPLANT Left 10/12/2018Surgeon: Isiah Garcia MD; Location: [facility] OR LocationTHYROIDECTOMY in her 40s.due to goiterTONSILLECTOMYPAIN:Pain Location: lower back and sternumPain rating before treatment: 5, After treatment: 5Pain Management: Reports taking pain medsOCCUPATIONAL ROLES/HOME ENVIRONMENT:Home environment: Lives alone, 07/03 supervision/assistance is available (her children rotate), and Single story home, 0 STEBathroom access: YesBathroom setup: ShowerOccupation(s): Retired, enjoys playing words with friends.Function prior to admission: Household ambulation (10-15 feet with 4WW) and required Min A with LB dressing and bathing. She was independent otherwise with ADLs. Family assisted with all IADLs and driving. Daughter reports patient has had a general decline since October and multiple hospitalizations. Daughter reports she had just gotten to the point she was walking short distances again and doing more for herselfSuspected ischemic or hemorraghic stroke patient: NoEquipment prior to admission: W/C, 4WW, bedside commode, shower chair, grab barPERFORMANCE SKILLS/FACTORS:UE Muscle Tone: bilateral WNLUE ROM: bilateral AROM WFLUE Strength: 4/5Hand dominance: rightDexterity/Coordination: bilateral Fine motor skills IntactEndurance - Sitting: NT Standing: NTSitting Balance - Static: NT Dynamic: NTStanding: Balance - Static NT Dynamic: NTDizziness: NoSkin Integrity: No breakdown notedSensation: bilateral Intact to light touchOral Motor: WFLCommunication: Able to verbalize needs Yes Other: N/AVision: WFL Yes Other: N/AHearing: good; no issues reportedCOGNITION:Orientation: person, place, date/time, and situationFollows Commands: 1-step Yes Multi-step Yes Inconsistencies NoSafety Awareness/Judgment: GoodPROBLEM LIST: Decreased independence with ADL and Decreased strength/endurance for functional activityREHAB POTENTIAL/PROGNOSIS: fairPATIENT/FAMILY GOALS: To feel better, daughter would like for her to get stronger before going home. She reports she will not agree to any sort of therapy post dischargeTREATMENT/INTERVENTION PLAN: Functional motor treatment, Patient/Caregiver Education, Equipment recommendations, Daily living activities, and Therapeutic exercisesGOAL(S): By discharge, patient will increase independence in daily living skills as follows:1 Patient will perform toilet transfer with minimal assistance.2 Patient will perform UB dressing with supervision.3 Patient will perform LB dressing with moderate assistance.4 Patient will complete grooming tasks with supervision while standing at the sink.5 Patient will complete toileting hygiene, including clothing management, with moderate assistance.6 Patient will increase endurance for functional activity as evidenced by ability to sustain 25 minutes of active participation.7 Patient/caregiver will verbalize/demonstrate understanding/proficiency in the following home programs: Adaptive equipment , Compensatory techniques/adaptive strategies, Fall prevention, and General strengtheningPATIENT-FAMILY TEACHINGPatient provided with preferred teaching of verbal information and demonstration on Adaptive equipment , ADL training, Compensatory techniques/adaptive strategies, Fall prevention, General strengthening, Role of OT, and Safety awareness. Shows readiness to learn. Verbal instruction teaching provided. Individual is able to read and verbalizes understanding of teaching provided.Anna Morales OTR, SHARIF, CSRSLicense# [id number] of Occupational [phone] Timed Treatment Codes: 5 MinTotal Treatment Time: 23 MinPatient Complexity Level Moderate - An occupational therapy evaluation of moderate complexity was completed using the above tests and measures. The following information was obtained: An occupational profile and medical and therapy history, including an expanded review of medical and/or therapy records and additional review of physical, cognitive, or psychosocial history related to current functional performance, Various standardized and non-standardized assessments were used to identify at least 3-5 performance deficits related to physical, cognitive, or psychosocial skills that result in activity limitations and/or participation restrictions, and Clinical decision making of moderate analytic complexity, which includes an analysis of the occupational profile, analysis of data from detailed assessment(s), and consideration of several treatment options. Patient may present with comorbidities that affect occupational performance. Minimal to moderate modification of tasks or assistance (e.g., physical or verbal) with assessment(s) is necessary to enable patient to complete evaluation component. 77013-4Ncifdvv rcnlGP3167-86-94S88:40:17Consult noteTXT1.2.840.025674.1.13.104.2.7.2.19304 9|[id number] for patient lajx31165-9Jhedagi noteLNNARRATIVEFormatted C-CDA narrative [id number] Andrew [address] [id number] TEDEEILIRDJIPKYQ6046-72-93Z14:40:171.2.840 .955895.1.72.3.15|1.2.840.855242.1.13.104. 2.7.2.727879_[id number] Anna Morales [facility] 2023-08-31 12:25:01 psyTKV37/X1RTGA3Ce4+88TartBOskYIP1ZlQvf/ H+ tcNt5kHYU9iZj5IxXPnq+h9809-99-97T04:25:01A ssociated Order(s): CONSULT FOOD AND NUTRITION Brief Note:Consult for ONS. Pt is consuming 75% or less of meals while inpatient. See dietitian progress note dated 08/30 for details.NUTRITION INTERVENTION:1. Recommend Ensure Plus High Protein Beth Lynne RD, LDClinical DietitianOffice Tswzylqlfaoumy signed by Cinthia Lynne RD at 08/31/2023 12:27 PM EZK55420-1Ixcwhja zqllYP0312-08-63E05:27:11Consult noteTXT1.2.840.305517.1.13.104.2.7.2.19407 9|[id number] for patient ajiz10879-3Vvdmokm noteLNNARRATIVEFormatted C-CDA narrative text[id number] OZDQZEKTIFFDQKIR0311-41-94H11:27:111.2.840 .783406.1.72.3.15|1.2.840.400120.1.13.104. 2.7.2.727879_[id number] [facility] 2023-08-30 13:08:38 cNQW676atvVdiprU+CA4CIHxrxsi6CwejLQKb+KG sc S6UpLG/u9M1uGzXVIJ8dom5247-37-76Z43:08:38F ormatting of this note is different from the original.[facility] EP Consult noteRequesting Provider: cardiology teamReason for Consultation: AFHistory of Present Illness: Lovely Welch is a 78 year old female with history of hypertension, hypothyroidism, CKD, CVA, s/p total thyriodectomy in her 40s, chronic HFpEF, DEBBY s/p L renal artery PTCA, persistent atrial fibrillation status post ablation 05/17/2023 ([facility]) presenting with nausea and vomiting. Found to be in atrial fibrillation and COVID-positive.The patient is well-known to the [facility] EP team. She had history of atrial fibrillation ablation and has not Tober following which she went back into atrial fibrillation and underwent DCCV prior to discharge. She was seen in EP clinic for follow-up which time she was doing well and maintaining sinus rhythm. Patient now presenting with nausea and vomiting and found to be back in atrial fibrillation. Also with STEPHY and evidence of dehydration. Patient reports she has been in AF [facility] It appears she was in and out of AF at this time. Has not been tolerated po intake due to nausea and vomiting for last several months and this persisted following the ablation. Currently resting in bed with no cp, sob. notes that she feels she is in AF. No syncope, bleeding, gfallsPast Medical History:Diagnosis DateAsymptomatic bilateral carotid artery stenosisseen on imaging 12/2018Bilateral renal artery stenosis 11/16/2017Stent place in the Left renal arteryChronic combined systolic and diastolic congestive heart failureCKD (chronic kidney disease) stage 3, GFR 30-59 ml/minCVA (cerebral vascular accident)In 40s, reportedly related to thyroid surgeryHTN (hypertension)Hypothyroidismsurgically removed due to goiterNeuropathyPast Surgical History:Procedure Laterality DateAORTOGRAM N/A 06/01/2023Surgeon: Prince Salter MD; [facility] OR LOCATIONCESAREAN SECTIONCOLONOSCOPY N/A 11/25/2017Surgeon: Blair Caballero MD; Location: [facility]) OR LocationESOPHAGOGASTRODUODENOSCOPY N/A 11/25/2017Surgeon: Blair Caballero MD; Location: [facility]) OR LocationPHACOEMULSIFICATION OF CATARACT WITH INTRAOCULAR LENS IMPLANT Right 09/07/2018Surgeon: Isiah Garcia MD; [facility] [place] [facility] CATARACT WITH INTRAOCULAR LENS IMPLANT Left 10/12/2018Surgeon: Isiah Garcia MD; Location: [place] OR LocationTHYROIDECTOMY in her 40s.due to goiterTONSILLECTOMYFamily HistoryProblem Relation Age of OnsetAneurysm Fatherin his headEmphysema MothersmokedNo Significant Medical Problems SisterSocial HistorySocioeconomic HistoryMarital status: WidowedNumber of children: 3Highest education level: High school graduateOccupational HistoryOccupation: retired, sold mobile home partsTobacco UseSmoking status: NeverPassive exposure: NeverSmokeless tobacco: NeverVaping UseVaping Use: Never usedSubstance and Sexual ActivityAlcohol use: NoAlcohol/week: 0.0 standard drinks of alcoholDrug use: NoSexual activity: Not CurrentlySocial History NarrativeLive at home alone, 1 story. 02/27/2019Social Determinants of HealthFinancial Resource Strain: Low Risk (05/24/2023)Overall Financial Resource Strain (CARDIA)Difficulty of Paying Living Expenses: Not hard at allFood Insecurity: No Food Insecurity (05/24/2023)Hunger Vital SignWorried About Running Out of Food in the Last Year: Never trueRan Out of Food in the Last Year: Never trueTransportation Needs: No Transportation Needs (05/24/2023)PRAPARE - TransportationLack of Transportation (Medical): NoLack of Transportation (Non-Medical): NoPhysical Activity: Inactive (04/08/2023)Exercise Vital SignDays of Exercise per Week: 0 daysMinutes of Exercise per Session: 0 minSocial Connections: Unknown (05/18/2023)Social Connection and Isolation Panel [NHANES]Frequency of Communication with Friends and Family: More than three times a weekMarital Status: WidowedHousing Stability: Low Risk (05/24/2023)Housing Stability Vital SignUnable to Pay for Housing in the Last Year: NoNumber of Places Lived in the Last Year: 1Unstable Housing in the Last Year: NoAllergiesAllergen ReactionsPrednisone Other - See commentsAFIBMEDICATIONSCurrent Facility-Administered Medications:levalbuterol (XOPENEX) nebulizer solution 1.25 mg, 1.25 mg, Inhalation, TID, Rick Fitch MDNaCl 0.9% (NS) IV infusion 1,000 mL, 1,000 mL, IV Infusion, CONTINUOUS, Rick Fitch MD, Last Rate: 75 mL/hr at 08/30/23 0849, 1,000 mL at 08/30/23 0849acetaminophen (TYLENOL) tablet 650 mg, 650 mg, Oral, Q4HPRN, Rick Fitch MDamiodarone (PACERONE) tablet 200 mg, 200 mg, Oral, DAILY, Blair Ponce MD, 200 mg at 08/30/23 0828atorvastatin (LIPITOR) tablet 40 mg, 40 mg, Oral, QPM, Jordan Rizvi MD, 40 mg at 08/29/23 1634cefTRIAXone (ROCEPHIN) 1,000 mg in NaCl 0.9% (NS) 100 mL MINI-BAG, 1,000 mg, IV Piggyback, Q24H ABXJose Dipal, FNP, Stopped at 08/30/23 0912clopidogreL (PLAVIX) 75 mg tablet 75 mg, 75 mg, Oral, DAILY, Jordan Rizvi MD, 75 mg at 08/30/23 0829levothyroxine (SYNTHROID) tablet 88 mcg, 88 mcg, Oral, QAM-0600, Jordan Rizvi MD, 88 mcg at 08/30/23 0543metoprolol tartrate (LOPRESSOR) tablet 50 mg, 50 mg, Oral, TID, Blair Ponce MD, 50 mg at 08/30/23 0829ondansetron (ZOFRAN (PF)) injection 4 mg, 4 mg, Slow IV Push, Q6HPRN, Jordan Rizvi MD, 4 mg at 08/29/23 0907pantoprazole (PROTONIX) EC tablet 40 mg, 40 mg, Oral, DAILY, Jordan Rizvi MD, 40 mg at 08/30/23 0829[COMPLETED] remdesivir 200 mg in NaCl 0.9% (NS) 100 mL infusion, 200 mg, IV Infusion, ONCE, Stopped at 08/29/23 1731 AND remdesivir 100 mg in NaCl 0.9% (NS) 100 mL MINI-BAG, 100 mg, IV Infusion, DAILY AT 1600, Colvin, Ai, FNPREVIEW OF [id number] point ros done and negative except as noted in hpiPHYSICAL EXAMINATIONVitals: height is 1.499 m (4' 11") and weight is 55.5 kg (122 lb 5.7 oz). Her oral temperature is 36.1 ?C (97 ?F). Her blood pressure is 119/81 and her pulse is 102. Her respiration is 16 and oxygen saturation is 93%.General: alert and oriented x 4 (person, place, date/time, and situation); no apparent distressHEENT: normocephalic atraumaticNeck: supple, no lymphadenopathy, no bruits, no JVDLungs: clear to auscultation bilaterallyCardio: S1, S2 normal; no murmurs, rubs or gallopsAbdomen: soft; non-tender; non-distended; normoactive bowel soundsGU: not examinedRectal: not examinedExtremities: no clubbing, cyanosis, or edemaSkin: no rashesNeuro: no focal deficitsIntake/Output Summary (Last 24 hours) at 08/30/2023 1308Last data filed at 08/30/2023 1000Gross per 24 hourIntake 3787.23 mlOutput 1865 mlNet 1922.23 mlLABORATORY: reviewedCBC BMP PT/INRWBC x10^3 (/CMM)Date Value04/11/2006 6.6WBC (10*3/?L)Date Value08/30/2023 10.40NADate Value08/30/2023 123 mmol/L (L)04/11/2006 143 MMOL/LNo results found for: "PT"PLT x10^3 (/CMM)Date Value04/11/2006 257PLT (10*3/?L)Date Value08/30/2023 301KDate Value08/30/2023 4.1 mmol/L04/11/2006 4.3 MMOL/LPT INR (no units)Date Value05/31/2005 0.9INR (no units)Date Value08/01/2023 2.4HGBDate Value08/30/2023 10.4 g/dL (L)04/11/2006 14.1 G/DLBUNDate Value08/30/2023 34 mg/dL (H)04/11/2006 23 MG/DLHCT (%)Date Value08/30/2023 30.0 (L)04/11/2006 43.4CREATININEDate Value08/30/2023 2.60 mg/dL (H)04/11/2006 1.17 MG/DLLIPID PROFILEGLUCOSEDate Value08/30/2023 113 mg/dL (H)04/11/2006 100 MG/DLCHOLDate Value08/12/2023 345 mg/dL (H)04/11/2006 311 MG/DL (H)TSH LDL CHOLDate Value08/12/2023 231 mg/dL (H)04/11/2006 229 MG/DL (H)TSHDate Value05/18/2023 0.37 mIU/L (L)04/11/2006 0.36 uIU/mLCARDIAC ENZYMES HDL CHOL (MG/DL)Date Value04/11/2006 41 (L)HDL (mg/dL)Date Value08/12/2023 50 (L)CK (U/L)Date Value11/03/2016 62012/17/2004 93TRIGDate Value08/12/2023 320 mg/dL (H)04/11/2006 207 MG/DL (H)LFTs CK-MB (ng/mL)Date Value11/03/2016 1.2805 1.5AST(SGOT) (U/L)Date Value08/30/2023 19TROPONIN I (ng/mL)Date Value08/29/2023 0.50148 0.00ALT(SGPT) (U/L)Date Value05/19/2019 16004/11/2006 30ALTv (U/L)Date Value08/30/2023 13No results found for: "BNP"ECHO:08/12/23Left Ventricle Left ventricle size is normal. Mildly increased wall thickness. Normal wall motion. Hyperdynamic systolic function with a visually estimated EF of greater than 65%. There is restrictive diastolic dysfunction.Right Ventricle Right ventricle size is normal. Normal systolic function.Left Atrium Left atrium is mildly dilated.Right Atrium Right atrium size is normal.IVC/SVC IVC diameter is less than or equal to 21 mm and decreases greater than 50% during inspiration; therefore the estimated right atrial pressure is normal (~0-5 mmHg).Mitral Valve Mildly thickened leaflets. Mild mitral annular calcification. Trace transvalvular regurgitation.Tricuspid Valve Tricuspid valve structure is normal. Trace transvalvular regurgitation. Insufficient tricuspid regurgitation jet to estimate RVSP . RA pressure is 0-5 mmHg.Aortic Valve Tricuspid. Mildly thickened cusps. Mildly calcified cusps. Mild transvalvular regurgitation. Probable moderate aortic stenosis. Peak velocity 1.9 m/sec. Mean pressure gradient 9.8 mmHg. EFRAIN by continuity equation 1.2 cm2. LVOT 1.7 cm. SVI 41 ml/m2.Pulmonic Valve Not well visualized. Trace transvalvular regurgitation.Ascending Aorta Normal sized aorta.Pericardium Small pericardial effusion present. No indication of cardiac tamponade.Telemetry AF in 110sASSESSMENT/RECOMMENDATIONS:AF RVRs/p AF ablation 05/17/23 (PVI, CTI)covid infectionAKI on CKDhx of CVAHTNhx of thyroidectomychronic HFpEFPatient well-known to the [facility] EP service with a history of atrial fibrillation status post ablation in May presenting wit nausea and vomiting found to be back in AF with RVR. Also with STEPHY on CKD suspected to be secondary to dehydration and found to be COVID+ Echo with LVEF greater than 65, restrictive diastology, mildly dilated atrium, small pericardial effusion with no evidence of tamponade. Currently patientPlan-Patient well-known to the [facility] EP service with history of atrial fibrillation with recent ablation in May currently admitted with nausea, vomiting found to be COVID-positive with STEPHY on CKD and atrial fibrillation RVR- antiarrhythmic options are limited given renal function, would recommend loading the patient with IV amiodarone at this time (has hx of total thyroidectomy) followed by HEATHER/DCCV prior to discharge- discharge home on amiodarone 200 mg daily-Following clinical improvement can stop amiodarone as outpatient and monitor closely. If has recurrence will likely need repeat intervention for her AF-continue AC with heparin gtt, will need to Eliquis 2.5 mg BID on discharge- No further inpatient EP plans at this time, follow up Dr. Villatoro 4 weeks from dischargeSeen and examined and plan discussed with Dr. Morel you for involving us in the patient's care. Please feel free to call us with questions.JAXON Nguyen-[facility] HospitalDivision of CardiologyMy time spent was 30 minutes for patient care which includes: precharting by reviewing EKGs and prior blood work-up as well as monitor results, obtaining and reviewing their medical chart as well as prior encounters, performing a full comprehensive medical exam and evaluation, discussing an EP procedure, documenting clinical information onto this electronic medical chart and independently interpreting prior results with communicating these results to the patient. ssociated attestation - Wilber Gottlieb MD - 09/04/2023 9:55 AM CST I personally examined the patient with our PA Ms. Nogueira on 08/30/2023 and have verified the documentation and/or findings, including the history, physical exam, and medical decision making. Additionally, I have personally performed or re-performed the physical exam and medical decision making activities of this patient's evaluation and management service.Thank you for allowing us to participate in the care of this patient.I spent a total of 50 minutes of non-overlapping time on the visit which includes: precharting by reviewing EKGs and prior blood work-up as well as monitor results, obtaining and reviewing her medical chart as well as prior encounters, performing a full comprehensive medical exam and evaluation, ordering an EP procedure, documenting clinical information onto this electronic medical chart and independently interpreting prior results with communicating these results to the patient. Over 50% of this encounter was spent on counseling and recommendations.Robin Gottlieb [facility] CHICKASHAardiac [id number] [id number], [id number] sgpyemMlvvkRZ5499-57-75K44:55:33Consult [id number] 9|[id number] for patient [id number] noteLNNARRATIVEFormatted C-CDA narrative textPA-PHYSICIAN [address] VENDOR MIDLEVEL PROVIDERPA-PHYSICIAN [address] VENDOR MIDLEVEL PROVIDER[address] B[id number] [id number]:55:331.2.840 .[id number]|[id number]. [id number] PA-PHYSICIAN [address] VENDOR MIDLEVEL PROVIDER [facility] 2023-08-29 13:21:39 iKlC+4hMrAKcJpA9fElNbB6ozLh8IgZlr2YOhawI s2EssnxZVCOTgM1r3/C40J9112-75-76G55:21:39A ssociated Order(s): CONSULT INFECTIOUS DISEASE INFECTIOUS DISEASES CONSULT NOTE:08/29/23Consult requested by Dr. Kapadia For Consult: please give recommendation or opinion on: bacterial pneumonia, COVIDChief Complaint: shortness of breath, n/vHistory of Present Illness:Lovely Welch is a 78 year old female admitted for n/v which has been going on for weeks-mos. With recent admit at [facility] for SOB, thought possible aspiration pna with leukocytosis although CXR unremarkable. Also had CHF exacerbation and p-afib on rate control.This admission had n/v which according to her and daughter is not really increased from previously. Not much abd pain, more likely to have small volume constipation than diarrhea. Noted to have much worse Stephy this time. Per nurse had significant retention with high output when hernandez placed; per daughter this has happened before.Noted to be COVID positive, has not had updated boosters. Was negative 08/11.CXR showed large L pleural effusion. S/p thoracentesis w 800 cc output; per Pulm was blood tingedPt currently c/o pain after thoracentesis, o/w stableAntimicrobial history/start-stop dates:Ceftriaxone 08/29Cefipime 08/29Vanco 08/29Steroids / Immunesuppressants:None recentlyPast Medical History:Past Medical History:Diagnosis DateAsymptomatic bilateral carotid artery stenosisseen on imaging 12/2018Bilateral renal artery stenosis 11/16/2017Stent place in the Left renal arteryChronic combined systolic and diastolic congestive heart failureCKD (chronic kidney disease) stage 3, GFR 30-59 ml/minCVA (cerebral vascular accident)In 40s, reportedly related to thyroid surgeryHTN (hypertension)Hypothyroidismsurgically removed due to goiterNeuropathyPast Surgical History:Procedure Laterality DateAORTOGRAM N/A 06/01/2023Surgeon: Prince Salter MD; [facility] N/A 11/25/2017Surgeon: Blair Caballero MD; Location: [facility] ([facility]) OR LocationESOPHAGOGASTRODUODENOSCOPY N/A 11/25/2017Surgeon: Blair Caballero MD; Location: [facility] ([facility]) OR LocationPHACOEMULSIFICATION OF CATARACT WITH INTRAOCULAR LENS IMPLANT Right 09/07/2018Surgeon: Isiah Garcia MD; Location: [place] OR LocationPHACOEMULSIFICATION OF CATARACT WITH INTRAOCULAR LENS IMPLANT Left 10/12/2018Surgeon: Isiah Garcia MD; Location: [place] OR LocationTHYROIDECTOMY in her 40s.due to goiterTONSILLECTOMYAllergiesAllergen ReactionsPrednisone Other - See commentsAFIBMedications:Prior to Admission medicationsMedication Sig Start Date End Date Taking? Authorizing Providermetoprolol tartrate 25 mg tablet Take 3 tablets by mouth in the morning and 3 tablets in the evening. 08/26/23 Santiago Villatoro MDergocalciferol, vitamin d2, 1,250 mcg (50,000 unit) capsule Take 1 capsule by mouth weekly. 08/22/23 Junaid Villar MDHYDROcodone-acetaminophen 7.5-325 mg per tablet Take 1 tablet by mouth in the morning and 1 tablet at noon and 1 tablet in the evening. 08/01/23 Doctor Unassigned, No Nameondansetron 4 mg disintegrating tablet Take 1 tablet by mouth every 8 (eight) hours as needed for Nausea and Vomiting (N/V). 08/22/23 Junaid Villar MDatorvastatin 40 mg tablet Take 1 tablet by mouth every evening for 30 days. 08/14/23 09/13/23 Keshia Mcclelland FNPfurosemide 40 mg tablet Take 1 tablet by mouth in the morning for 30 days. 08/14/23 09/13/23 Keshia Mcclelland FNPpantoprazole 40 mg EC tablet Take 1 tablet by mouth in the morning for 30 days. 08/14/23 09/13/23 Keshia Mcclelland FNPclopidogreL (PLAVIX) 75 mg tablet Take 1 tablet by mouth in the morning. Doctor Unassigned, No Namemetoprolol tartrate 50 mg tablet Take 1 tablet by mouth in the morning and 1 tablet in the evening. Doctor Unassigned, No Nameamiodarone 100 mg tablet Take 1 tablet by mouth in the morning. 08/11/23 Santiago Villatoro MDrivaroxaban (XARELTO) 15 mg tablet Take 1 tablet by mouth in the morning. Indications: PAF 07/05/23 Andrew Astudillo MDlevothyroxine 88 mcg tablet TAKE ONE TABLET BY MOUTH EVERY MORNING 05/18/23 Britni Tabares FNPSocial History:Social HistorySocioeconomic HistoryMarital status: WidowedSpouse name: Not on fileNumber of children: 3Years of education: Not on fileHighest education level: High school graduateOccupational HistoryOccupation: retired, sold mobile home partsTobacco UseSmoking status: NeverPassive exposure: NeverSmokeless tobacco: NeverVaping UseVaping Use: Never usedSubstance and Sexual ActivityAlcohol use: NoAlcohol/week: 0.0 standard drinks of alcoholDrug use: NoSexual activity: Not CurrentlyOther Topics ConcernNot on fileSocial History NarrativeLive at home alone, 1 story. 02/27/2019Social Determinants of HealthFinancial Resource Strain: Low Risk (05/24/2023)Overall Financial Resource Strain (CARDIA)Difficulty of Paying Living Expenses: Not hard at allFood Insecurity: No Food Insecurity (05/24/2023)Hunger Vital SignWorried About Running Out of Food in the Last Year: Never trueRan Out of Food in the Last Year: Never trueTransportation Needs: No Transportation Needs (05/24/2023)PRAPARE - TransportationLack of Transportation (Medical): NoLack of Transportation (Non-Medical): NoPhysical Activity: Inactive (04/08/2023)Exercise Vital SignDays of Exercise per Week: 0 daysMinutes of Exercise per Session: 0 minStress: Not on fileSocial Connections: Unknown (05/18/2023)Social Connection and Isolation Panel [NHANES]Frequency of Communication with Friends and Family: More than three times a weekFrequency of Social Gatherings with Friends and Family: Not on fileAttends Samaritan Services: Not on fileActive Member of Clubs or Organizations: Not on fileAttends Club or Organization Meetings: Not on fileMarital Status: WidowedIntimate Partner Violence: Not on fileHousing Stability: Low Risk (05/24/2023)Housing Stability Vital SignUnable to Pay for Housing in the Last Year: NoNumber of Places Lived in the Last Year: 1Unstable Housing in the Last Year: NoFamily History:Family HistoryProblem Relation Age of OnsetAneurysm Fatherin his headEmphysema MothersmokedNo Significant Medical Problems SisterCurrent Facility-Administered Medications:acetaminophen (TYLENOL) tablet 650 mg, 650 mg, Oral, Q4HPRN, Rick Fitch MD[START ON 08/30/2023] amiodarone (PACERONE) tablet 200 mg, 200 mg, Oral, DAILY, Blair Ponce MDatorvastatin (LIPITOR) tablet 40 mg, 40 mg, Oral, QPM, Jordan Rizvi MD, 40 mg at 08/29/23 1634[START ON 08/30/2023] cefTRIAXone (ROCEPHIN) 1,000 mg in NaCl 0.9% (NS) 100 mL MINI-BAG, 1,000 mg, IV Piggyback, Q24H ABX, Ai Colvin, CHADPclopidogreL (PLAVIX) 75 mg tablet 75 mg, 75 mg, Oral, DAILY, Jordan Rizvi MD, 75 mg at 08/29/23 0910lactated ringers IV infusion 1,000 mL, 1,000 mL, IV Infusion, CONTINUOUS, Ai Colvin, CUSTOMER QUALITY SPECIALIST, Last Rate: 150 mL/hr at 08/29/23 1641, 1,000 mL at 08/29/23 1641[START ON 08/30/2023] levothyroxine (SYNTHROID) tablet 88 mcg, 88 mcg, Oral, QAM-0600, Jordan Rizvi, Ryleeetoprolol tartrate (LOPRESSOR) tablet 50 mg, 50 mg, Oral, TID, Blair Pnoce MD, 50 mg at 08/29/23 1319ondansetron (ZOFRAN (PF)) injection 4 mg, 4 mg, Slow IV Push, Q6HPRN, Jordan Rizvi MD, 4 mg at 08/29/23 0907pantoprazole (PROTONIX) EC tablet 40 mg, 40 mg, Oral, DAILY, Jordan Rizvi MD, 40 mg at 08/29/23 0910[COMPLETED] remdesivir 200 mg in NaCl 0.9% (NS) 100 mL infusion, 200 mg, IV Infusion, ONCE, Stopped at 08/29/23 1731 AND [START ON 08/30/2023] remdesivir 100 mg in NaCl 0.9% (NS) 100 mL MINI-BAG, 100 mg, IV Infusion, DAILY AT 1600, Colvin, Ai, FNPA 10-system review was conducted and was negative except for what's noted in the HPI. The following systems were reviewed: Constitutional, cardiovascular, respiratory, gastrointestinal, genitourinary, musculoskeletal, neurologic, psychiatric, endocrinological, and hematological.PHYSICAL EXAMVitals:08/29/23 1500 08/29/23 1600 08/29/23 1710 08/29/23 1800BP: 137/76 114/77 112/73 126/84Pulse: 117 105 104 109Resp: 17 14 17Temp: 35.8 ?C (96.5 ?F)TempSrc: TympanicSpO2: 96% 94% 94% 95%Weight:Height:Temp (36hrs), Av.2 ?C (97.1 ?F), Min:36.1 ?C (96.9 ?F), Max:36.2 ?C (97.2 ?F)Appearance: frail appearing older patient alert and in no acute distress, responding when asked directly but deferring to daughter to answer most questionsHead: normocephalic and atraumaticOropharynx: moist mucus membranes, no erythema or tonsillar enlargement and lips, teeth and gums normalNeck: neck supple with no rigidityCardiovascular: regular rate and rhythm, no murmurRespiratory: clear to auscultation but decreased BS L base. Breathing comfortably on no Z6Vtzirhp: soft, non-tender, non-distended, no liver, spleen or abnormal masses palpatedExtremities: no c/c/e, specifically no pedal edemaNeurologic: alert, without focal deficitsLabs: all relevant results reviewedRecent Results (from the past 48 hour(s))Cbc with DiffCollection Time: 08/29/23 12:43 AMResult Value Ref RangeWBC 19.08 (H) 4.30 - 11.10 10*3/?LRBC 4.27 3.93 - 5.25 10*6/?LHGB 13.0 11.6 - 15.0 g/dLHCT 38.3 35.7 - 45.2 %MCV 89.7 80.6 - 95.5 fLMCH 30.4 25.9 - 32.8 pgMCHC 33.9 31.6 - 35.1 g/dLRDW-SD 49.8 39.0 - 49.9 fLRDW-CV 15.3 12.0 - 15.5 %PLT 463 (H) 166 - 358 10*3/?LMPV 12.0 9.5 - 12.9 fLIPF % 13.2 (H) 1.3 - 7.7 %NRBC/100 WBC 0.0 0.0 - 10.0 /100 WBCsNRBC x10^3 <0.01 10*3/?LSEG % 75 33 - 76 %BAND % 16 (H) 0 - 1 %LYMPH % 4 (L) 14 - 54 %MONO % 3 0 - 4 %EOS % 2 0 - 3 %ANC 17.34 (H) 1.88 - 7.09 10*3/uLPLT ESTIMATE Increased (A) NormalComp. Metabolic Panel (29461)Collection Time: 08/29/23 12:43 AMResult Value Ref RangeNA 116 (LL) 135 - 145 mmol/LK 4.1 3.5 - 5.0 mmol/LCL 80 (L) 98 - 108 mmol/LCO2 TOTAL 22 (L) 23 - 31 mmol/LAGAP 14 2 - 16BUN 40 (H) 7 - 23 mg/dLGLUCOSE 138 (H) 70 - 110 mg/dLCREATININE 2.97 (H) 0.50 - 1.04 mg/dLTOTAL BILI 1.1 0.1 - 1.1 mg/dLCALCIUM 9.4 8.6 - 10.6 mg/Ángela PROTEIN 7.0 6.3 - 8.2 g/dLALBUMIN 4.0 3.5 - 5.0 g/dLALK PHOS 188 (H) 34 - 122 U/LALTv 14 5 - 35 U/LAST(SGOT) 20 13 - 40 U/LeGFR 15.7 mL/min/1.29y5QyrnfgfnzXzxoerylon Time: 08/29/23 12:43 AMResult Value Ref RangeMAGNESIUM 2.1 1.7 - 2.4 mg/dLLipaseCollection Time: 08/29/23 12:43 AMResult Value Ref RangeLIPASE 93 0 - 220 U/LTroponin ICollection Time: 08/29/23 12:43 AMResult Value Ref RangeTROPONIN I 0.004 <=0.034 ng/mLCOVID-19 (ID NOW TESTING)Collection Time: 08/29/23 1:18 AMSpecimen: NASOPHARYNGEAL SWABResult Value Ref DnadpGDOF-CxV-8 Rapid ID NOW Positive (A) Not DetectedRAPID INFLUENZA A/BCollection Time: 08/29/23 1:18 AMSpecimen: NASOPHARYNGEAL SWABResult Value Ref RangeRapid Influenza A Negative NegativeRapid Influenza B Negative NegativeUrinalysisCollection Time: 08/29/23 1:42 AMResult Value Ref RangeAPPEARANCE Cloudy (A) ClearCOLOR Yellow YellowPH 5.0 4.8 - 8.0SP GRAVITY 1.017 1.003 - 1.030GLU U QUAL Normal NormalBLOOD 1+ (A) NegativeKETONES Negative NegativePROTEIN 100 mg/dL (A) NegativeUROBILIN Normal NormalBILIRUBIN Negative NegativeNITRITE Negative NegativeLEUK SARITHA Negative NegativeRBC/HPF >182 (H) 0 - 3 HPFWBC/HPF 9 (H) 0 - 5 HPFBACTERIA Few (A) NegativeMUCOUS Slight (A) Negative LPFSQ EPITH 37 HPFYEAST BUD 39 (H) <=1 HPFSPERM 1 <=1 HPFSODIUM, URINE RANDOMCollection Time: 08/29/23 1:42 AMResult Value Ref RangeNA URINE <5 mmol/LBLOOD CULTURE SCREENCollection Time: 08/29/23 2:04 AMSpecimen: ARM, LEFT, BELOW ELBOW; BloodResult Value Ref RangeBlood Culture-Aerobic Culture In Progress No growthBlood Culture-Anaerobic Culture In Progress No growthBLOOD CULTURE SCREENCollection Time: 08/29/23 2:04 AMSpecimen: ARM, LEFT, BELOW ELBOW; BloodResult Value Ref RangeBlood Culture-Aerobic Culture In Progress No growthBlood Culture-Anaerobic Culture In Progress No growthLactic Acid Whole BloodCollection Time: 08/29/23 2:04 AMResult Value Ref RangeLACTIC ACID 1.53 0.50 - 2.20 mmol/LBasic Metabolic Panel (NA, K, CL, CO2, GLUCOSE, BUN, CREATININE, CA)Collection Time: 08/29/23 6:24 AMResult Value Ref RangeNA 119 (LL) 135 - 145 mmol/LK 3.9 3.5 - 5.0 mmol/LCL 84 (L) 98 - 108 mmol/LCO2 TOTAL 23 23 - 31 mmol/LAGAP 12 2 - 16BUN 40 (H) 7 - 23 mg/dLGLUCOSE 110 70 - 110 mg/dLCREATININE 2.74 (H) 0.50 - 1.04 mg/dLCALCIUM 8.5 (L) 8.6 - 10.6 mg/dLeGFR 17.3 mL/min/1.73p2ZesrnbhdnCzbnxrxetw Time: 08/29/23 6:24 AMResult Value Ref RangeMAGNESIUM 2.1 1.7 - 2.4 mg/dLN-Terminal Pro-BnpCollection Time: 08/29/23 6:24 AMResult Value Ref RangeNT-proBNP 16,500 (H) <=125 pg/mLOsmolality, Serum or PlasmaCollection Time: 08/29/23 6:24 AMResult Value Ref RangeOSMOLALITY 267 (L) 278 - 305 mOsm/kgMRSA / MSSA Screen by PCR, NaresCollection Time: 08/29/23 6:24 AMSpecimen: NARES, BOTH SIDES; SwabResult Value Ref RangeMRSA Screen by PCR, Nares Negative NegativeMSSA Screen by PCR, Nares Negative NegativeMRSA/MSSA Positive? No NoOsmolality UrineCollection Time: 08/29/23 9:00 AMResult Value Ref RangeOSMO U 158 50 - 1,100 mOsm/kgBasic Metabolic Panel (NA, K, CL, CO2, GLUCOSE, BUN, CREATININE, CA)Collection Time: 08/29/23 10:50 AMResult Value Ref RangeNA 119 (LL) 135 - 145 mmol/LK 3.9 3.5 - 5.0 mmol/LCL 85 (L) 98 - 108 mmol/LCO2 TOTAL 23 23 - 31 mmol/LAGAP 11 2 - 16BUN 40 (H) 7 - 23 mg/dLGLUCOSE 105 70 - 110 mg/dLCREATININE 2.64 (H) 0.50 - 1.04 mg/dLCALCIUM 8.2 (L) 8.6 - 10.6 mg/dLeGFR 18.1 mL/min/1.99p8sMDGMzentolbpp Time: 08/29/23 10:50 AMResult Value Ref RangeAPTT Patient 37 (H) 26 - 36 SecondsBody Fluid Direct CountCollection Time: 08/29/23 3:12 PMResult Value Ref RangeBF COLOR BloodyTURBIDITY TurbidBF WBC Count 1,816 /?LBF RBC Count 46,000 /?LBody Fluid Manual DiffCollection Time: 08/29/23 3:12 PMResult Value Ref RangeBF SEGS% 59 %BF LYMPHS% 25 %BF MACROPHAGE% 5 %BF MESOS% 11 %BF #CELLS CNTD 100 cells/uLpH, Body FluidCollection Time: 08/29/23 3:58 PMResult Value Ref RangePH BF 7.5UNSPUN BODY FLUID COLOR RedUNSPUN BODY FLUID CLARITY TurbidSPUN BODY FLUID COLOR YellowSPUN BODY FLUID CLARITY ClearSedimentThe sediment volume is 0.05mLs of the total fluid volume of 3.0mLs and its color is red.D-DimerCollection Time: 08/29/23 3:58 PMResult Value Ref RangeD-DIMER 3.61 (H) <0.50 ?g/mL (FEU)Basic Metabolic Panel (NA, K, CL, CO2, GLUCOSE, BUN, CREATININE, CA)Collection Time: 08/29/23 4:00 PMResult Value Ref RangeNA 119 (LL) 135 - 145 mmol/LK 4.2 3.5 - 5.0 mmol/LCL 86 (L) 98 - 108 mmol/LCO2 TOTAL 22 (L) 23 - 31 mmol/LAGAP 11 2 - 16BUN 38 (H) 7 - 23 mg/dLGLUCOSE 97 70 - 110 mg/dLCREATININE 2.61 (H) 0.50 - 1.04 mg/dLCALCIUM 8.2 (L) 8.6 - 10.6 mg/dLeGFR 18.4 mL/min/1.85u0Nbcagnvb SerumCollection Time: 08/29/23 4:00 PMResult Value Ref RangeFERRITIN 430.0 (H) 11.0 - 264.0 ng/mLWBC x10^3Date/Time Value Ref Range Ohimcg6504/11/2006 11:19 AM 6.6 4.0 - 10.0 /CMM Final09/11/2005 02:45 AM 8.8 4.0 - 10.0 /CMM Final09/06/2005 03:45 PM 7.7 4.0 - 10.0 /CMM Final05/31/2005 09:45 AM 6.4 4.0 - 10.0 /CMM Final12/15/2004 03:45 PM 6.2 4.5 - 10.5 /CMM FinalWBCDate/Time Value Ref Range Djbetw6408/29/2023 12:43 AM 19.08 (H) 4.30 - 11.10 10*3/?L Final08/14/2023 03:40 AM 11.93 (H) 4.30 - 11.10 10*3/?L Final08/13/2023 03:16 AM 18.38 (H) 4.30 - 11.10 10*3/?L Final08/12/2023 07:25 AM 12.35 (H) 4.30 - 11.10 10*3/?L Final08/01/2023 01:12 PM 7.23 4.30 - 11.10 10*3/?L FinalCREATININEDate/Time Value Ref Range Eaolxy6808/29/2023 04:00 PM 2.61 (H) 0.50 - 1.04 mg/dL 08/29/2023 10:50 AM 2.64 (H) 0.50 - 1.04 mg/dL 08/29/2023 06:24 AM 2.74 (H) 0.50 - 1.04 mg/dL 08/29/2023 12:43 AM 2.97 (H) 0.50 - 1.04 mg/dL 08/14/2023 03:40 AM 1.86 (H) 0.50 - 1.04 mg/dL Final04/11/2006 11:19 AM 1.17 0.70 - 1.70 MG/DL 09/11/2005 02:45 AM 0.97 0.70 - 1.70 MG/DL 09/10/2005 02:30 PM 0.87 0.70 - 1.70 MG/DL 09/10/2005 10:30 AM 0.97 0.70 - 1.70 MG/DL 12/17/2004 06:17 AM 1.28 0.70 - 1.70 MG/DL FinalLDHDate Value Ref Range Xtohjj3812/05/2017 461 300 - 600 U/L FinalFERRITINDate Value Ref Range Iainys2408/29/2023 430.0 (H) 11.0 - 264.0 ng/mL FinalNo results found for: "CRP"No results found for: "ESRWEST"D-dimer:Microbiology: all relevant results reviewedBlood cultures (positive):There are no current results on file for these tests and/or test for the past 3 mos.No results found for: "CBLD"Blood cx 08/29: NGTDSputum cultures (positive)There are no current results on file for these tests and/or test for 1 year.Urine cultures (positive)Recent LabsCUR No aerobic growth (< 1000 CFU/mL)Other cultures:Lab ResultsComponent Value DateCUR No aerobic growth (< 1000 CFU/mL) 04/07/2023UR 310,000 - 100,000 CFU/mL mixed aerobic organisms - suggests endogenous microbial contaminationRadiology: all relevant results reviewedXR CHEST 1 VWResult Date: 08/29/2023Impression: Stable cardiomegaly. Moderate to large left and small right pleural effusions with associated atelectasis versus infiltrate. END REPORT RL: [id number] AFC: [id number] Personally reviewed imaging - rotated, single view. No defined inflitrates suggestive of bacterial pnaAssessment:COVID positive, not hypoxic but very high risk pt, undervaccinated. Negative test 08/12/23Severe n/v which is longstanding. May be due to COVID or to other such as intestinal ischemia, although latter less likely with minimal abd pain or diarrheaLeucocytosis w/o other signs of sepsisPleural effusions - not typical for COVID pna, pt has no hypoxia. No definite infiltrates suggestive of bacterial pnaSevere aortic calcifications - high risk for intestinal ischemiaAKI due to 2 and possibly obstructive (retention)CKD3 at baselineSevere hyponatremia likely assoc w n/v and stephy / hypovolemiaContributing conditions which affect susceptibility to infection, response to therapy, need for medication monitoring, and/or wound healing include:Severe PAD including carotid and renal artery stenosisChronic CHFHx CKDPersistent afib/flutterhypothyroidRecommendations:Sta rt remdesivir - no indication for dexD/c vanco - low suspicion for R gm positives, nephrotoxicWould continue with ceftriaxone for the momentCheck CRP, d-dimer, LDH, ferritin as inflammatory markersConsider better imaging of chestConsider aortic angiogram when renal fx can tolerate if bowel ischemia suspectedThank you.Tabby Giron [phone] ID Staff [id number] [id number]:06:33Consult [id number] 9|[id number] for patient nelw67138-5Llqjxeb noteLNNARRATIVEFormatted C-CDA narrative text[address] Fi[id number] GNCLETLPDLCTHCEI7750-35-13R37:06:331.2.840 .191854.1.72.3.15|1.2.840.449689.1.13.104. [id number] [facility] 2023-08-29 10:17:20 iyVC/zLOmOoseuyStJN9g2XsvlXiX9Zui+aSn0fC Ti BzuiZweaRzVnCmjKhQuf/Z3219-79-27B90:17:20A ssociated Order(s): CONSULT NEPHROLOGY NEPHROLOGY CONSULT NOTE08/29/2023 10:17Reason For consult: Acute kidney injury on CKD 3Consult By:CC:HPI:Lovely Welch is a 78 year old female with mild CKD 3 who was admitted earlier this morning with severe fatigue, nausea and vomiting going on since her last discharge from hospital on . Her admission then was related to pneumonia. Since then, her p.o. intake has been poor both for liquids and solids with frequent vomiting. Denies abdominal or flank pain or diarrhea. Serum creatinine has risen to 2.74 prompting this nephrology consultation. According to patient's daughter at bedside, she has a small nonfunctional right kidney, while she has had dilatation and stenting of the left renal artery 10 years ago for stenosis, followed by reexpansion last year. Patient has not taken any NSAIDs. No history of kidney stones or frequent urinary infection. She has noted her urine output to drop over the last couple of weeks.CAITLYN 12 point ROS was done pertinent positives have been discussed in HPI ,other review of system is negative.Past Medical History:Diagnosis DateAsymptomatic bilateral carotid artery stenosisseen on imaging 12/2018Bilateral renal artery stenosis 11/16/2017Stent place in the Left renal arteryChronic combined systolic and diastolic congestive heart failureCKD (chronic kidney disease) stage 3, GFR 30-59 ml/minCVA (cerebral vascular accident)In 40s, reportedly related to thyroid surgeryHTN (hypertension)Hypothyroidismsurgically removed due to goiterNeuropathyPast Surgical History:Procedure Laterality DateAORTOGRAM N/A 06/01/2023Surgeon: Prince Salter MD; [facility]ON[facility] N/A 11/25/2017Surgeon: Blair Caballero MD; Location: [facility] ([facility]) OR LocationESOPHAGOGASTRODUODENOSCOPY N/A 11/25/2017Surgeon: Blair Caballero MD; Location: [facility] ([facility]) OR LocationPHACOEMULSIFICATION OF CATARACT WITH INTRAOCULAR LENS IMPLANT Right 09/07/2018Surgeon: Isiah Garcia MD; [facility] JeffPHACOEMULSIFICATION OF CATARACT WITH INTRAOCULAR LENS IMPLANT Left 10/12/2018Surgeon: Isiah Garcia MD; Location: [facility] LocationTHYROIDECTOMY in her 40s.due to goiterTONSILLECTOMYSocial HistoryTobacco UseSmoking status: NeverPassive exposure: NeverSmokeless tobacco: NeverVaping UseVaping Use: Never usedSubstance Use TopicsAlcohol use: NoAlcohol/week: 0.0 standard drinks of alcoholDrug use: NoFamily HistoryProblem Relation Age of OnsetAneurysm Fatherin his headEmphysema MothersmokedNo Significant Medical Problems SisterAllergiesAllergen ReactionsPrednisone Other - See commentsAFIBMedications:Current Facility-Administered MedicationsMedication Dose Route Frequency Last Rate Last Adminamiodarone (PACERONE) tablet 100 mg 100 mg Oral DAILY 100 mg at 08/29/23 0910atorvastatin (LIPITOR) tablet 40 mg 40 mg Oral QPMceFEPIme (MAXIPIME) 1,000 mg in NaCl 0.9% (NS) 100 mL MINI-BAG 1,000 mg IV Piggyback Q24H ABX Stopped at 08/29/23 0806clopidogreL (PLAVIX) 75 mg tablet 75 mg 75 mg Oral DAILY 75 mg at 08/29/23 0910lactated ringers IV infusion 1,000 mL 1,000 mL IV Infusion CONTINUOUS 150 mL/hr at 08/29/23 0936 Rate Change at 08/29/23 0936[START ON 08/30/2023] levothyroxine (SYNTHROID) tablet 88 mcg 88 mcg Oral QAM-0600metoprolol tartrate (LOPRESSOR) tablet 50 mg 50 mg Oral BID 50 mg at 08/29/23 0738ondansetron (ZOFRAN (PF)) injection 4 mg 4 mg Slow IV Push Q6HPRN 4 mg at 08/29/23 0907pantoprazole (PROTONIX) EC tablet 40 mg 40 mg Oral DAILY 40 mg at 08/29/23 0910rivaroxaban (XARELTO) tablet 15 mg 15 mg Oral DAILY 15 mg at 08/29/23 0910No current facility-administered medications on file prior to encounter.Current Outpatient Medications on File Prior to EncounterMedication Sig Dispense Refillmetoprolol tartrate 25 mg tablet Take 3 tablets by mouth in the morning and 3 tablets in the evening. 180 tablet 1ergocalciferol, vitamin d2, 1,250 mcg (50,000 unit) capsule Take 1 capsule by mouth weekly. 26 capsule 1HYDROcodone-acetaminophen 7.5-325 mg per tablet Take 1 tablet by mouth in the morning and 1 tablet at noon and 1 tablet in the evening.ondansetron 4 mg disintegrating tablet Take 1 tablet by mouth every 8 (eight) hours as needed for Nausea and Vomiting (N/V). 30 tablet 0atorvastatin 40 mg tablet Take 1 tablet by mouth every evening for 30 days. 30 tablet 0furosemide 40 mg tablet Take 1 tablet by mouth in the morning for 30 days. 30 tablet 0pantoprazole 40 mg EC tablet Take 1 tablet by mouth in the morning for 30 days. 30 tablet 0clopidogreL (PLAVIX) 75 mg tablet Take 1 tablet by mouth in the morning.metoprolol tartrate 50 mg tablet Take 1 tablet by mouth in the morning and 1 tablet in the evening.amiodarone 100 mg tablet Take 1 tablet by mouth in the morning. 90 tablet 1rivaroxaban (XARELTO) 15 mg tablet Take 1 tablet by mouth in the morning. Indications: PAF 30 tablet 6levothyroxine 88 mcg tablet TAKE ONE TABLET BY MOUTH EVERY MORNING 90 tablet 1Physical ExamBP: (113-172)/(75-109)Temp: [36.1 ?C (96.9 ?F)-36.2 ?C (97.2 ?F)]Temp source: Tympanic (08/29 0700)Pulse: [110-119]Resp: [14-21]SpO2: [93 %-96 %]Height: [149.9 cm (4' 11")]Weight: [53.5 kg (118 lb)-55.5 kg (122 lb 5.7 oz)]BMI (calculated): [23.83-24.71]Wt Readings from Last 3 Encounters:08/29/23 55.5 kg (122 lb 5.7 oz)08/22/23 52.3 kg (115 lb 4.8 oz)08/14/23 55 kg (121 lb 3.2 oz)Intake/Output Summary (Last 24 hours) at 08/29/2023 1017Last data filed at 08/29/2023 0936Gross per 24 hourIntake 845.09 mlOutput 500 mlNet 345.09 mlGeneral: no acute distress and alertENT: pharynx normalCardiovascular: Heart regular, rate, rhythm, no murmurs; no edemaRespiratory: clear to auscultation, no respiratory distressGI: abd soft, non-tender, non-distended, +BS.Skin: intact and warm, dryNeuro: alert, orientedLabs, reviewed in epicAssessment and Plan:78-year-old white female with known hypertension and mild CKD 3, now admitted for persistent vomiting, dehydration, STEPHY and hyponatremia. Receiving IV Ringer's lactate since admission. Admits to feeling better.1. STEPHY, secondary to volume depletion from protracted vomiting. Continue current IV fluids monitoring urine output and periodic renal labs looking for improvement.2.. Severe hyponatremia, likely chronic from the hypovolemia.3. Mild CKD 3 at baseline.4 hypertension, stable BP on medication.Agree with current IV fluid.Check BMP every 8 hours, avoiding drastic changes in serum sodium level with IV hydration.Check urinalysisIf renal function does not resolve with IV fluid, will order renal ultrasound to rule out obstruction.Avoid all known nephrotoxins like IV iodinated contrast, NSAIDs. Investigation and treatment of vomiting per primary team.Pankaj Gutiérrez MD, FACPNephrology &Hypertension,[facility] [id number] opduIJ2663-85-13G60:30:55Consult noteTXT1.2.840.863383.1.13.104.2.7.2.42421 9|[id number] for patient viek68545-0Zypzadi noteLNNARRATIVEFormatted C-CDA narrative textIM-NEPHROLOGY STAFFIM-NEPHROLOGY STAFF[address] Vc[id number] YKPORYUEWPWIPKZL5630-81-33Z08:30:551.2.840 .904891.1.72.3.15|1.2.840.843668.1.13.104. [id number] IM-NEPHROLOGY STAFF [facility] 2023-08-29 08:32:42 T3XibCmfy7m1bWPNjF7uAZnlWbojv97eoOr5ewjV ji yyfoOIsex7pFw76KR6cIwz8335-16-46Z67:32:42A ssociated Order(s): CONSULT CARDIOLOGY Cardiology Consult NoteDate of Service: 4Reason for Consultation: a-fibCHIEF COMPLAINT: nausea and vomitingHISTORY OF PRESENT ILLNESSLovely Welch is a 78 year old /White female with a PMHx of carotid artery stenosis, DEBBY s/p L KNIFEMAN and stent 11/2017, HTN, CKDIII, CVA, HFpEF (>65% 07/2023), persistent a-fib/flutter s/p PVI ablation 05/2023 (WTG1WF1-OSHq 7), and hypothyroidism who presents with nausea and vomiting. Cardiology is consulted for a-fib.The patient has a known history of a-fib and underwent PVI ablation in 05/2023 for highly symptomatic persistent a-fib that was refractory to pharmacologic suppression. The patient has had persistent nausea and vomiting after she was discharged from [facility] on 08/14/2023 when she was admitted for PNA. The daughter reports the patient has had nausea and vomiting for at least 6 months. The patient has had very poor PO intake since being discharged. She reports when she attempts to eat, she would vomit. The patient reports she has had intermittent chest pain since the ablation. She characterizes it as a pressure. She reports her chest pain is associated with vomiting but is unsure if it occurs before or after vomiting. She reports she feels slightly confused currently.Currently, she reports chest pain that has eased up. She reports slight SOB.Past Medical History:Past Medical History:Diagnosis DateAsymptomatic bilateral carotid artery stenosisseen on imaging 12/2018Bilateral renal artery stenosis 11/16/2017Stent place in the Left renal arteryChronic combined systolic and diastolic congestive heart failureCKD (chronic kidney disease) stage 3, GFR 30-59 ml/minCVA (cerebral vascular accident)In 40s, reportedly related to thyroid surgeryHTN (hypertension)Hypothyroidismsurgically removed due to goiterNeuropathyPast Surgical History:Past Surgical History:Procedure Laterality DateAORTOGRAM N/A 06/01/2023Surgeon: Prince Salter MD; [facility] LOCATIONCESAREAN SECTIONCOLONOSCOPY N/A 11/25/2017Surgeon: Blair Caballero MD; Location: [facility] ([facility]) OR LocationESOPHAGOGASTRODUODENOSCOPY N/A 11/25/2017Surgeon: Blair Caballero MD; Location: [facility] ([facility]) OR LocationPHACOEMULSIFICATION OF CATARACT WITH INTRAOCULAR LENS IMPLANT Right 09/07/2018Surgeon: Isiah Garcia MD; Location: [facility] LocationPHACOEMULSIFICATION OF CATARACT WITH INTRAOCULAR LENS IMPLANT Left 10/12/2018Surgeon: Isiah Garcia MD; Location: [place] OR LocationTHYROIDECTOMY in her 40s.due to goiterTONSILLECTOMYFamily History:Family HistoryProblem Relation Age of OnsetAneurysm Fatherin his headEmphysema MothersmokedNo Significant Medical Problems SisterAllergies:AllergiesAllergen ReactionsPrednisone Other - See commentsAFIBMedications:Current Facility-Administered MedicationsMedication Dose Route Frequency Last Rate Last Adminamiodarone (PACERONE) tablet 100 mg 100 mg Oral DAILYatorvastatin (LIPITOR) tablet 40 mg 40 mg Oral QPMceFEPIme (MAXIPIME) 1,000 mg in NaCl 0.9% (NS) 100 mL MINI-BAG 1,000 mg IV Piggyback Q24H ABX 200 mL/hr at 08/29/23 0736 1,000 mg at 08/29/23 0736clopidogreL (PLAVIX) 75 mg tablet 75 mg 75 mg Oral DAILYlactated ringers IV infusion 1,000 mL 1,000 mL IV Infusion CONTINUOUS[START ON 08/30/2023] levothyroxine (SYNTHROID) tablet 88 mcg 88 mcg Oral QAM-0600metoprolol tartrate (LOPRESSOR) tablet 50 mg 50 mg Oral BID 50 mg at 08/29/23 0738ondansetron (ZOFRAN (PF)) injection 4 mg 4 mg Slow IV Push K2TPVUzwncqqvpaile (PROTONIX) EC tablet 40 mg 40 mg Oral DAILYrivaroxaban (XARELTO) tablet 15 mg 15 mg Oral DAILYVancomycin 750 mg in NaCl 0.9% (NS) 250 mL VIAL-MATE 15 mg/kg IV Piggyback ONCESocial History:Social HistorySocioeconomic HistoryMarital status: WidowedSpouse name: Not on fileNumber of children: 3Years of education: Not on fileHighest education level: High school graduateOccupational HistoryOccupation: retired, sold mobile home partsTobacco UseSmoking status: NeverPassive exposure: NeverSmokeless tobacco: NeverVaping UseVaping Use: Never usedSubstance and Sexual ActivityAlcohol use: NoAlcohol/week: 0.0 standard drinks of alcoholDrug use: NoSexual activity: Not CurrentlyOther Topics ConcernNot on fileSocial History NarrativeLive at home alone, 1 story. 02/27/2019Social Determinants of HealthFinancial Resource Strain: Low Risk (05/24/2023)Overall Financial Resource Strain (CARDIA)Difficulty of Paying Living Expenses: Not hard at allFood Insecurity: No Food Insecurity (05/24/2023)Hunger Vital SignWorried About Running Out of Food in the Last Year: Never trueRan Out of Food in the Last Year: Never trueTransportation Needs: No Transportation Needs (05/24/2023)PRAPARE - TransportationLack of Transportation (Medical): NoLack of Transportation (Non-Medical): NoPhysical Activity: Inactive (04/08/2023)Exercise Vital SignDays of Exercise per Week: 0 daysMinutes of Exercise per Session: 0 minStress: Not on fileSocial Connections: Unknown (05/18/2023)Social Connection and Isolation Panel [NHANES]Frequency of Communication with Friends and Family: More than three times a weekFrequency of Social Gatherings with Friends and Family: Not on fileAttends Samaritan Services: Not on fileActive Member of Clubs or Organizations: Not on fileAttends Club or Organization Meetings: Not on fileMarital Status: WidowedIntimate Partner Violence: Not on fileHousing Stability: Low Risk (05/24/2023)Housing Stability Vital SignUnable to Pay for Housing in the Last Year: NoNumber of Places Lived in the Last Year: 1Unstable Housing in the Last Year: NoREVIEW OF SYSTEMSAs per HPIVITALS:Temp: [36.1 ?C (96.9 ?F)-36.2 ?C (97.2 ?F)]Heart Rate (monitor): [89-120]Pulse: [110-119]Resp: [14-18]BP: (113-172)/(75-109)MAP (mmHg): [90-122]Intake/Output:Intake/Output Summary (Last 24 hours) at 08/29/2023 0832Last data filed at 08/29/2023 0245Gross per 24 hourIntake 650 mlOutput --Net 650 mlWt Readings from Last 4 Encounters:08/29/23 55.5 kg (122 lb 5.7 oz)08/22/23 52.3 kg (115 lb 4.8 oz)08/14/23 55 kg (121 lb 3.2 oz)08/11/23 51 kg (112 lb 6.4 oz)PHYSICAL EXAMINATIONGeneral: alert; no apparent distressLungs: unlabored breathingCardio: S1, S2 normal; no murmurs, rubs or gallops, irregularly irregular rhythmExtremities: no clubbing, cyanosis, or edemaLabs, reviewed- pertinent results as below:CXR:Stable cardiomegaly.Moderate to large left and small right pleural effusions with associated atelectasis versus infiltrate.TTE 07/2023:Left Ventricle Left ventricle size is normal. Mildly increased wall thickness. Normal wall motion. Hyperdynamic systolic function with a visually estimated EF of greater than 65%. There is restrictive diastolic dysfunction.Right Ventricle Right ventricle size is normal. Normal systolic function.Left Atrium Left atrium is mildly dilated.Right Atrium Right atrium size is normal.IVC/SVC IVC diameter is less than or equal to 21 mm and decreases greater than 50% during inspiration; therefore the estimated right atrial pressure is normal (~0-5 mmHg).Mitral Valve Mildly thickened leaflets. Mild mitral annular calcification. Trace transvalvular regurgitation.Tricuspid Valve Tricuspid valve structure is normal. Trace transvalvular regurgitation. Insufficient tricuspid regurgitation jet to estimate RVSP . RA pressure is 0-5 mmHg.Aortic Valve Tricuspid. Mildly thickened cusps. Mildly calcified cusps. Mild transvalvular regurgitation. Probable moderate aortic stenosis. Peak velocity 1.9 m/sec. Mean pressure gradient 9.8 mmHg. EFRAIN by continuity equation 1.2 cm2. LVOT 1.7 cm. SVI 41 ml/m2.Pulmonic Valve Not well visualized. Trace transvalvular regurgitation.Ascending Aorta Normal sized aorta.Pericardium Small pericardial effusion present. No indication of cardiac tamponade.Stress Testing 10/2017:1. The patient's electrocardiogram is nonischemic.2. The patient's clinical response is symptomatic for angina.3. Overall left ventricular systolic function is normal. The left ventricular ejection fraction is calculated to be 78 %.4. SPECT imaging shows moderate degree, moderate size reversible ischemiaIn apical to basal anterior wall segments in LAD region and moderate degree, smallsize reversible ischemia in basal to mid inferior wall segments in RCA region.5. Myocardial perfusion imaging is overall abnormal.Cath 10/2017:Left Main Artery: angiographically normal. LAD: Large vessel, Luminal irregularities Circumflex: angiographically normal.RIGHT CORONARY ARTERY: DOMINANCE: Right DominantRCA: Large vessel, Luminal irregularitiesASSESSMENT/Bharath Bella Welch is a 78 year old female with PMH as listed above, consulted cardiology for a-fib.Persistent a-fib/flutter s/p PVI ablation 05/2023 (QVE2VJ0-TPUl 7)STEPHY on CKDIIICOVID infectionHTNCVAChronic HFpEF (>65% 07/2023)The patient presents with persistent nausea and vomiting. Multiple labs suggest intravascular volume depletion: hypo-osmolar hyponatremia, hypochloremia, and STEPHY. On tele, the patient's HR is 90s-120s. The patient will need IV fluids, and this should help improve her HR. She can be continued on her home rate control regimen for a-fib.Recommendations:- Recommend IV fluids as patient is volume depleted, and this will help her HR- Increase Lopressor to 50 mg TID- Due to STEPHY and current CrCl <30, discontinue Xarelto. Start hep gtt for anticoagulation for a-fib- Increase amio to 200 mg daily- C/w Lipitor 40 mg QHS- C/w Plavix 75 mg daily- Daily BMP and Mg- Telemetry- Optimize electrolytes. Keep K>4, Mg>2.- Cardiology will continue to follow.Patient was seen and discussed with Dr. Han. Please call with any questions.Blair Ponce, MDCardiology Fellow, PGY-4 ssociated attestation - Alicia Han MD - 08/29/2023 2:25 PM CST I reviewed patient's chart, vitals, lab work, current medications and other diagnostic studies.I saw and examined the patient today and agree with the detailed consult note written byDr. Ponce. I actively participated in the decision-making process. Please see the detailed consult note for additional details.[facility] Cardiology service has been consulted for evaluation and management of atrial fibrillation with RVR in the setting of severe intractable vomiting, severe hyponatremia, severe STEPHY and COVID infection. She is hemodynamically stable and HR in atrial fibrillation is reasonably controlled. Would recommend rate control strategy at this time. Have adjusted her anticoagulation regimen due to severe STEPHY and decreased GFR. [facility] Cardiology will continue to follow.Thanks for allowing us to participate in the care of this patient. Please feel free to call [facility] Cardiology service for any questions.Alicia Han MD, FACCAssistant ProfessorDivision of Cardiovascular Medicine [facility].[id number] [id number], Norbertovladislavpolinad1.2.840.770140.1.13.104.2.7.2.8369 08RprjZbeovpetEV4160-60-56O44:25:30Consult noteTXT1.2.840.330855.1.13.104.2.7.2.77891 9|[id number] for patient miiu10115-7Xwjeadf noteLNNARRATIVEFormatted C-CDA narrative textUT[address] Bk[id number] SLMGJBKJDPSTTOHD9080-74-79H10:25:301.2.840 .241452.1.72.3.15|1.2.840.520926.1.13.104. 2.7.2.727879_[id number] [facility] 2023-08-12 19:58:06 cRrle2asOZegYP35N8oQmefxzNGQy4fGud7bhc3T 1I qYH9FGQ6t4m5p5nk1vxM+x7642-68-72C82:58:06A ssociated Order(s): CONSULT CARDIOLOGY [facility] Cardiology ConsultPCP: Britni TabaresDate of Service: 08/12/2023HIEF COMPLAINT/reason for consult: Chest painHISTORY OF PRESENT ILLNESSThis is a 78 years old female with past medical history of carotid artery stenosis, renal artery stenosis status post stenting, hypertension, CKD, stroke, chronic diastolic heart failure, paroxysmal atrial fibrillation/flutter, and hypothyroidism. She came to [facility] due to chest pain. This morning she woke up with chest pain. The chest pain was centrally located all the way from the neck to the umbilical area. It spreads to both sides. It radiates to the back. The pain was described as pressure. Rated 10 out of 10. Worse with deep breaths. Associated with vomiting, sweating and dyspnea. Nitroglycerin did not improve the pain. Her blood pressure was in urgency range with systolic blood pressure over 200. First troponin was negative. EKG was normal.PAST MEDICAL HISTORYPast Medical History:Diagnosis DateAsymptomatic bilateral carotid artery stenosisseen on imaging 12/2018Bilateral renal artery stenosis 11/16/2017Stent place in the Left renal arteryChronic combined systolic and diastolic congestive heart failureCKD (chronic kidney disease) stage 3, GFR 30-59 ml/minCVA (cerebral vascular accident)In 40s, reportedly related to thyroid surgeryHTN (hypertension)Hypothyroidismsurgically removed due to goiterNeuropathyPast Surgical History:Procedure Laterality DateAORTOGRAM N/A 06/01/2023Surgeon: Prince Salter MD; Location[facility] OR LOCATIONCESAREAN SECTIONCOLONOSCOPY N/A 11/25/2017Surgeon: Blair Caballero MD; Location: [facility] ([facility]) OR LocationESOPHAGOGASTRODUODENOSCOPY N/A 11/25/2017Surgeon: Blair Caballero MD; Location: [facility] ([facility]) OR LocationPHACOEMULSIFICATION OF CATARACT WITH INTRAOCULAR LENS IMPLANT Right 09/07/2018Surgeon: Isiah Garcia MD; Location: [place] OR LocationPHACOEMULSIFICATION OF CATARACT WITH INTRAOCULAR LENS IMPLANT Left 10/12/2018Surgeon: Isiah Garcia MD; Location: [facility] LocationTHYROIDECTOMY in her 40s.due to goiterTONSILLECTOMYFamily HistoryProblem Relation Age of OnsetAneurysm Fatherin his headEmphysema MothersmokedNo Significant Medical Problems SisterALLERGIESAllergiesAllergen ReactionsPrednisone Other - See commentsAFIBMEDICATIONSNo current facility-administered medications on file prior to encounter.Current Outpatient Medications on File Prior to EncounterMedication Sig Dispense RefillclopidogreL (PLAVIX) 75 mg tablet Take 1 tablet by mouth in the morning.metoprolol tartrate 50 mg tablet Take 1 tablet by mouth in the morning and 1 tablet in the evening.amiodarone 100 mg tablet Take 1 tablet by mouth in the morning. 90 tablet 1rivaroxaban (XARELTO) 15 mg tablet Take 1 tablet by mouth in the morning. Indications: PAF 30 tablet 6polyethylene glycol 3350 (MIRALAX) 17 gram/dose powder Take 17 g by mouth in the morning for 60 days. (Patient taking differently: Take 17 g by mouth once daily as needed for Constipation.) 510 g 1levothyroxine 88 mcg tablet TAKE ONE TABLET BY MOUTH EVERY MORNING 90 tablet 1acetaminophen-codeine 300-30 mg tablet Take 1 tablet by mouth every 4 (four) hours as needed for Pain (scale 4-6). Indications: chronic pain 60 tablet 0SOCIAL HISTORYSocial HistorySocioeconomic HistoryMarital status: WidowedNumber of children: 3Highest education level: High school graduateOccupational HistoryOccupation: retired, sold mobile home partsTobacco UseSmoking status: NeverPassive exposure: NeverSmokeless tobacco: NeverVaping UseVaping Use: Never usedSubstance and Sexual ActivityAlcohol use: NoAlcohol/week: 0.0 standard drinks of alcoholDrug use: NoSexual activity: Not CurrentlySocial History NarrativeLive at home alone, 1 story. 02/27/2019Social Determinants of HealthFinancial Resource Strain: Low Risk (05/24/2023)Overall Financial Resource Strain (CARDIA)Difficulty of Paying Living Expenses: Not hard at allFood Insecurity: No Food Insecurity (05/24/2023)Hunger Vital SignWorried About Running Out of Food in the Last Year: Never trueRan Out of Food in the Last Year: Never trueTransportation Needs: No Transportation Needs (05/24/2023)PRAPARE - TransportationLack of Transportation (Medical): NoLack of Transportation (Non-Medical): NoPhysical Activity: Inactive (04/08/2023)Exercise Vital SignDays of Exercise per Week: 0 daysMinutes of Exercise per Session: 0 minSocial Connections: Unknown (05/18/2023)Social Connection and Isolation Panel [NHANES]Frequency of Communication with Friends and Family: More than three times a weekMarital Status: WidowedHousing Stability: Low Risk (05/24/2023)Housing Stability Vital SignUnable to Pay for Housing in the Last Year: NoNumber of Places Lived in the Last Year: 1Unstable Housing in the Last Year: NoREVIEW OF SYSTEMSAt least 10 systems reviewed, negative except as mentioned in HPIPHYSICAL EXAMINATIONVitals:08/12/23 1243 08/12/23 1544 08/12/23 1652 08/12/23 1702BP: 121/53BP Location:Patient Position:Pulse: 62 64 62Resp: 16 18 18Temp: 36.9 ?C (98.4 ?F)TempSrc: Temporal ArterySpO2: 95% 96% 95%Weight: 53.5 kg (117 lb 14.4 oz)Height: 1.499 m (4' 11")Constitutional: alert and oriented x 3 (person, place and date/time); no apparent distressENT: normocephalic atraumatic, supple, no lymphadenopathy, no bruits, no JVDLungs: clear to auscultation bilaterallyCardiovascular: S1, S2 normal rate, regular; 2/6 SMGI: soft; non-tender; non-distended; normoactive bowel soundsGU: not examinedMusculoskeletal: Extremities: no clubbing, cyanosis, or edemaSkin: no rashesNeuro: no focal deficitsLABS - reviewed pertinent labs as below:CBC BMP PT/INRWBC x10^3 (/CMM)Date Value04/11/2006 6.6WBC (10*3/?L)Date Value08/12/2023 12.35 (H)NADate Value08/12/2023 135 mmol/L04/11/2006 143 MMOL/LNo results found for: "PT"PLT x10^3 (/CMM)Date Value04/11/2006 257PLT (10*3/?L)Date Value08/12/2023 242KDate Value08/12/2023 4.8 mmol/L04/11/2006 4.3 MMOL/LPT INR (no units)Date Value05/31/2005 0.9INR (no units)Date Value08/01/2023 2.4HGBDate Value08/12/2023 13.3 g/dL04/11/2006 14.1 G/DLBUNDate Value08/12/2023 17 mg/dL04/11/2006 23 MG/DLHCT (%)Date Value08/12/2023 41.9004/11/2006 43.4CREATININEDate Value08/12/2023 1.07 mg/dL (H)04/11/2006 1.17 MG/DLLIPID PROFILEGLUCOSEDate Value08/12/2023 166 mg/dL (H)04/11/2006 100 MG/DLCHOLDate Value08/12/2023 345 mg/dL (H)04/11/2006 311 MG/DL (H)TSH LDL CHOLDate Value08/12/2023 231 mg/dL (H)04/11/2006 229 MG/DL (H)TSHDate Value05/18/2023 0.37 mIU/L (L)04/11/2006 0.36 uIU/mLCARDIAC ENZYMES HDL CHOL (MG/DL)Date Value04/11/2006 41 (L)HDL (mg/dL)Date Value08/12/2023 50 (L)CK (U/L)Date Value11/03/2016 62012/17/2004 93TRIGDate Value08/12/2023 320 mg/dL (H)04/11/2006 207 MG/DL (H)LFTs CK-MB (ng/mL)Date Value11/03/2016 1.28012/17/2004 1.5AST(SGOT) (U/L)Date Value08/12/2023 2408 19TROPONIN I (ng/mL)Date Value08/12/2023 0.53887 0.00ALT(SGPT) (U/L)Date Value05/19/2019 1608 30ALTv (U/L)Date Value08/12/2023 13No results found for: "BNP"IMAGING - reviewed, pertinent results as below: Chest z-znq-ifuvcSSH-normal EKGASSESSMENT/PLANPrincipal Problem:Chest pain, unspecified typeActive Problems:HLD (hyperlipidemia)Secondary hypertension(HFpEF) heart failure with preserved ejection fractionCKD (chronic kidney disease) stage 3, GFR 30-59 ml/minRenal artery stenosisStrokeEssential hypertensionHypertensive urgencyS/P ablation of atrial fibrillationPneumonia of both lower lobes due to infectious organismAortic stenosisPericardial effusionChest pain-the chest pain is atypical. The location is from the neck to the umbilical area. It is worse with deep breaths. No response to nitroglycerin. Less likely to be angina. Continue to trend troponin. Echocardiogram today showed normal ejection fraction and wall motion. Left heart cath in 2018 showed no CAD. Consider noncardiac chest pain.Possible pneumonia on CT scan-continue antibiotics and supportive care per primary team.Paroxysmal atrial fibrillation/flutter with rapid ventricular response-status post ablation in May 2023. Currently in sinus rhythm. Continue amiodarone and rivaroxaban. WGP2BO1-TCTu score 7.Chronic diastolic heart failure-no acute exacerbation based on exam, chest x-ray, echocardiogram and BNP level. No need for diuresis. Low salt diet. I/O. Daily weight. Keep K > 4 and Mg > 2.Hypothyroidism-normal TSH.Hypertension/hypertensive urgency-her blood pressure is well controlled now. Continue metoprolol. The patient reported fatigue when SBP is below 150.Hyperlipidemia-recommend to continue Lipitor 80 mg daily.Renal artery stenosis status post stenting-continue high intensity Lipitor. Off aspirin since anticoagulation.Moderate aortic stenosis-outpatient follow-up.Pericardial effusion-small amount.Thank you for allowing us to participate in the care of your patient. Please feel free to contact us for any questions or if we can be of further assistance.Venecia Malhotra MD, [facility], FASEAssociate ProfessorDivision of Cardiovascular MedicineMedical Arts Hospital 08134-1Xbmpqwy yqzjSH4006-27-18B59:06:37Consult noteTXT1.2.840.103600.1.13.104.2.7.2.39957 9|[id number] for patient gbwr92064-8Rhnrqkq noteLNNARRATIVEFormatted C-CDA narrative textUT[address] Qu[id number] YQMJQJTLQFLCNGUJ0603-00-45E01:06:371.2.840 .029500.1.72.3.15|1.2.840.662975.1.13.104. 2.7.2.727879_[id number] [facility] 2023-04-08 13:56:30 EKW9QQCQwIJQJ7ensB9tL8vxhF2FvgDhgEp3RjEX [place] RjSqqHzi1cELtB1/geh61M3836-18-26L30:56:30A ssociated Order(s): CONSULT ADULT PHYSICAL THERAPY Patient agreeable to working with physical therapy. Patient met semi reclined in bed.Recommend nursing staff utilize min A to safely assist patient with mobility out of the bed or chair.PHYSICAL THERAPY EVALUATIONConsult received, chart reviewed and evaluation complete this date. Patient is referred to PT for evaluation and treatment. Patient is a 78 year old female who presents to hospital for Chest pain, unspecified type [R07.9] . Discharge Recommendations: Therapy Needs and Potential:Patient would benefit from continued physical therapy services to address: decline in bed mobility decline in gait and/or balance decreased strength decreased endurancePatient demonstrates good potential to improve and meet therapy goals with further physical therapy services.Patient appears motivated to improve their functional mobility and return to their previous level of function.Challenges to Home Transition: increased risk of fallsEquipment recommendations:rolling walkerCurrent Functional Status and/or Treatment: AM-PAC 6 Clicks (Raw Score 0=Dependent, 24=Independent; Low function Raw Score 0= Dependent, 32=Independent):Raw Score - Basic Mobility : 18T-Scale Score - Basic Mobility : 41.05 Bed Mobility:Rolling: Minimal AssistanceBridging: Minimal AssistanceSitting balance Fair+Scooting to edge of bed: Minimal Assistance Transfers: Sit to stand: Supervision using Rolling WalkerStand to sit: Supervision using Rolling Walker Ambulation: Assisted patient with ambulation as follows: 20 feet using Rolling Walker and Supervision. Therapeutic exercise: patient educated in Deep breathing, Fall prevention, and General strengthening.After session, patient semi reclined in bed. Call button provided. PLAN OF CARE: While in the hospital, PT will follow patient at least 2 times per week,once or twice a day, per patient's tolerance and needs.See below for complete details. Admit Date: 04/06/2023 Hospital Diagnosis:Chest pain, unspecified type [R07.9] PT Diagnosis: Difficulty walking, Weakness, Pain, and Abnormality of gait and balanceWeight Bearing Precaution: WBAT General Precautions: FallBracing/Cast present or required:N/APMH: Past Medical History: Diagnosis Date Asymptomatic bilateral [...] Isiah Garcia MD; [facility] PHACOEMULSIFICATION OF CATARACT WITH INTRAOCULAR LENS IMPLANT Left 10/12/2018 Surgeon: Isiah Garcia MD; Location: [facility] Location THYROIDECTOMY in her 40s. due to goiter TONSILLECTOMY Prior Living Situation: in a house and with their sonDME: Rolling WalkerPrior level of Mobility: house hold ambulation Suspected ischemic or hemorraghic stroke:NoSubjective: Patient stated her back has been hurting and fractured a vertebrae and has a significant bruise at L4-5 area. Patient/Family Goals: Be able to walk without pain. Patient/Family verbalizes understanding of condition: Yes PAIN: -Pain Description: burning-Pain Location: lower back-Pain rating before treatment: 6, After treatment: 6COMMUNICATIONPrimary Language: Greenlandic Able to Verbalize needs: Yes Vision:good; no issues reported Hearing:good; no issues reported ORIENTATION/COGNITION:Oriented to: person, place, date/time, and situation Awake: Yes Alert: Yes Dizzy: No Follows Commands: Yes 1-Step Yes Multi-Step Yes Inconsistent: No NEUROLOGICALLight Touch: within functional limits bilateral LE, BALANCE:Sitting: Static: Good Dynamic: GoodStanding: Static: Fair Dynamic: FairRANGE OF MOTION: within functional limits bilateral LE STRENGTH: 4-/5 (G-), bilateral LE ENDURANCE: Fair+, SKIN INTEGRITY: intact, PROBLEM LIST: Decline in bed mobility, Decreased strength, Decreased endurance, and PainASSESSMENT: Patient is a 78 year old female seen secondary to the above listed diagnosis. Patient would benefit from continued PT to address the above listed deficits to maximize independence and safety with functional mobility.Rehabilitation Potential: good Goals: The following goals are to maximize independence and safety with functional mobility to eventually return to prior living situation and prior functional status. Upon discharge, patient and/or family will demonstrate the followin. Rolling: SupervisionBridging: SupervisionSitting balance Good2. Sit to stand: Supervision using Rolling WalkerStand to sit: Supervision using Rolling Walker3. Supervision with ambulation, Feet: 50 using least assistive device. 4. Demonstrate or verbalize understanding of home exercise program in order to continue with their rehab on their own.Treatment Plan: Gait training, Therapeutic exercise, Bed mobility training, Safety education, patient/caregiver education, and Pain managementPATIENT EDUCATION: Patient and Family member provided with preferred teaching of verbal information on role of PT, plan of care. Shows readiness to learn. Verbal instruction teaching provided. Individual is able to read and verbalizes understanding of teaching provided and accurately returns demonstration of skill.Total Time Tx Codes in Minutes: 15 minTotal Treatment Time in Minutes: 15 minDara Chanel, PTTX PT [id number] [facility] ADCRehabilitation Services [phone] (phone) (fax) [phone] fjnbZF6889-84-95L43:05:19Consult noteTXT1.2.840.818061.1.13.104.2.7.2.13718 9|[id number] for patient ncgi79995-1Ymdttzl [id number] Johanson PT[address] Rj[id number] DBJASGNOGKDKGTHU7352-55-38L07:05:191.2.840 .647718.1.72.3.15|1.2.840.566260.1.13.104. 2.7.2.727879_[id number] Germaine Buchanan PT [facility] 2023-04-07 21:18:57 QxA22UmBCbktIK4p0Ae/zESYy9hVZdyLdAzaDKry ed Jk/A4drg99Xfj8MAz1pHGm6944-75-55W57:18:57A ssociated Order(s): CONSULT CARDIOLOGY [facility] Cardiology ConsultPCP: Britni Tabares Date of Service: 3CHIEF COMPLAINT/reason for consult: Atrial fibrillation/flutterHISTORY OF PRESENT ILLNESSThis is a 78 years old female with past medical history of carotid artery stenosis, renal artery stenosis status post stenting, hypertension, CKD, stroke, chronic diastolic heart failure, paroxysmal atrial fibrillation/flutter, and hypothyroidism. She underwent HEATHER guided cardioversion in January 2023. Last night around 6 PM after taking pills, she began to have chest pressure and palpitations. She came to [facility] emergency room. She was in atrial fibrillation with rapid ventricular response. She was given intravenous diltiazem. Currently she is feeling well. Her ventricular rate is still elevated. Currently she is off amiodarone. She is on warfarin. PAST MEDICAL HISTORY Past Medical History: Diagnosis [...] Right 09/07/2018 Surgeon: Isiah Garcia MD; Location: [place] OR Location PHACOEMULSIFICATION OF CATARACT WITH INTRAOCULAR LENS IMPLANT Left 10/12/2018 Surgeon: Isiah Garcia MD; Location: [place] OR Location THYROIDECTOMY in her 40s. due to goiter TONSILLECTOMY Family History Problem Relation Age of Onset Aneurysm Father in his head Emphysema Mother smoked No Significant Medical Problems Sister ALLERGIESNo Known AllergiesMEDICATIONSNo current facility-administered medications on file prior to encounter. Current Outpatient Medications on File Prior to Encounter Medication Sig Dispense Refill Hydrocodone-Acetaminophen 7.5-300 mg tablet Take 1 tablet by mouth as needed for Pain (scale 4-6). metoprolol tartrate 50 mg tablet Take 1 tablet by mouth in the morning and 1 tablet in the evening. Patient was prescribed this in the hospital, but patient's daughter stated medications got confused at follow up appts. lidocaine 5 % (700 mg/patch) patch 1 patch every 12 hours 30 Patch 0 methocarbamoL 500 mg tablet Take 1 tablet by mouth in the morning and 1 tablet in the evening. Do all this for 60 days. 60 tablet 1 methylPREDNISolone (MEDROL, PEYTON,) 4 mg tablets Take by mouth SEE-INSTRUCTIONS for 6 days. follow package directions 21 Each 0 carvediloL (COREG) 25 mg tablet Take 1 tablet by mouth in the morning and 1 tablet in the evening. Take with meals. levothyroxine (SYNTHROID) 88 mcg tablet Take 1 tablet by mouth every morning. 90 tablet 0 atorvastatin 80 mg tablet Take 1 tablet by mouth at bedtime. 90 tablet 3 warfarin 5 mg tablet Take 1 tablet by mouth every evening. 30 tablet 0 diazePAM (VALIUM) 5 mg tablet Take 1 tablet by mouth 2 (two) times daily as needed for Muscle Spasms. 30 tablet 0 ezetimibe 10 mg tablet Take 1 tablet by mouth in the morning. 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 02/27/2019 Social Determinants of Health Financial Resource Strain: Low Risk (02/09/2023) Overall Financial Resource Strain (CARDIA) Difficulty of Paying Living Expenses: Not very hard Food Insecurity: No Food Insecurity (02/09/2023) Hunger Vital Sign Worried About Running Out of Food in the Last Year: Never true Ran Out of Food in the Last Year: Never true Transportation Needs: No Transportation Needs (02/09/2023) PRAPARE - Transportation Lack of Transportation (Medical): No Lack of Transportation (Non-Medical): No Physical Activity: Inactive (02/09/2023) Exercise Vital Sign Days of Exercise per Week: 0 days Minutes of Exercise per Session: 0 min Social Connections: Unknown (02/09/2023) Social Connection and Isolation Panel [NHANES] Frequency of Communication with Friends and Family: More than three times a week Marital Status: Housing Stability: Low Risk (02/09/2023) Housing Stability Vital Sign Unable to Pay for Housing in the Last Year: No Number of Places Lived in the Last Year: 1 Unstable Housing in the Last Year: No REVIEW OF SYSTEMSAt least 10 systems reviewed, negative except as mentioned in HPI PHYSICAL EXAMINATIONVitals: 04/07/23 0818 04/07/23 1217 04/07/23 1625 04/07/23 1927 BP: (!) 148/90 (!) 150/72 118/76 123/67 Pulse: 107 96 88 98 Resp: 19 18 16 Temp: 35.6 ?C (96.1 ?F) 35.6 ?C (96 ?F) 35.9 ?C (96.7 ?F) TempSrc: SpO2: 94% 95% 94% Weight: Height: Constitutional: alert and oriented x 3 (person, place and date/time); no apparent distressENT: normocephalic atraumatic, supple, no lymphadenopathy, no bruits, no JVDLungs: clear to auscultation bilaterallyCardiovascular: S1, S2 tachycardic, irregular; no murmurs, rubs or gallopsGI: soft; non-tender; non-distended; normoactive bowel soundsGU: not examinedMusculoskeletal: Extremities: no clubbing, cyanosis, or edemaSkin: no rashesNeuro: no focal deficitsLABS - reviewed pertinent labs as below:CBC BMP PT/INR WBC x10^3 (/CMM) Date Value 04/11/2006 6.6 WBC (10*3/?L) Date Value 04/06/2023 13.37 (H) NA Date Value 04/06/2023 138 mmol/L 04/11/2006 143 MMOL/L No results found for: "PT" PLT x10^3 (/CMM) Date Value 04/11/2006 257 PLT (10*3/?L) Date Value 04/06/2023 306 K Date Value 04/06/2023 4.4 mmol/L 04/11/2006 4.3 MMOL/L PT INR (no units) Date Value 05/31/2005 0.9 INR (no units) Date Value 04/06/2023 1.9 HGB Date Value 04/06/2023 14.8 g/dL 04/11/2006 14.1 G/DL BUN Date Value 04/06/2023 34 mg/dL (H) 04/11/2006 23 MG/DL HCT (%) Date Value 04/06/2023 44.6 04/11/2006 43.4 CREATININE Date Value 04/06/2023 1.55 mg/dL (H) 04/11/2006 1.17 MG/DL LIPID PROFILE GLUCOSE Date Value 04/06/2023 169 mg/dL (H) 04/11/2006 100 MG/DL CHOL Date Value 09/10/2022 294 mg/dL (H) 04/11/2006 311 MG/DL (H) TSH LDL CHOL Date Value 09/10/2022 208 mg/dL (H) 04/11/2006 229 MG/DL (H) TSH Date Value 03/15/2023 0.55 mIU/L 04/11/2006 0.36 uIU/mL CARDIAC ENZYMES HDL CHOL (MG/DL) Date Value 04/11/2006 41 (L) HDL (mg/dL) Date Value 09/10/2022 58 CK (U/L) Date Value 11/03/2016 62 12/17/2004 93 TRIG Date Value 09/10/2022 141 mg/dL 04/11/2006 207 MG/DL (H) LFTs CK-MB (ng/mL) Date Value 11/03/2016 1.28 12/17/2004 1.5 AST(SGOT) (U/L) Date Value 04/06/2023 21 04/11/2006 19 TROPONIN I (ng/mL) Date Value 04/06/2023 0.033 12/16/2004 0.00 ALT(SGPT) (U/L) Date Value 05/19/2019 16 04/11/2006 30 ALTv (U/L) Date Value 04/06/2023 19 No results found for: "BNP" IMAGING - reviewed, pertinent results as below: Chest d-xtm-npvaqRBDKNFOLCS/PLANPrincipal Problem: Chest pain, unspecified typeActive Problems: HLD (hyperlipidemia) (HFpEF) heart failure with preserved ejection fraction CKD (chronic kidney disease) stage 3, GFR 30-59 ml/min Renal artery stenosis Stroke Essential hypertension Atrial fibrillation with rapid ventricular response Hypertensive urgencyParoxysmal atrial fibrillation/flutter with rapid ventricular response-she underwent cardioversion in January 2023. Apparently atrial fibrillation occurred 6 PM last night. Currently the rate is still elevated but she is feeling well. Recommend to try rate control. Continue Coreg. Add diltiazem 30 mg every 6 hours. If the rate can be well controlled, we can schedule outpatient EP visit to discuss ablation. Continue warfarin anticoagulation. INR 2-3. Recent supratherapeutic INR. Consider EP referral for Watchman device discussion given fluctuating INR. [id number] score 7. Chronic diastolic heart failure-no acute exacerbation based on exam, chest x-ray and BNP level. No need for diuresis. Low salt diet. I/O. Daily weight. Keep K > 4 and Mg > 2. Hypothyroidism-normal TSH.Hypertension/hypertensive urgency-her blood pressure is well controlled now. Continue Coreg and diltiazem. The patient reported fatigue when SBP is below 150. Chest pain-left heart cath in 2018 showed no CAD. Troponin has been negative.Hyperlipidemia-recommend to continue Lipitor 80 mg daily.Renal artery stenosis status post stenting-continue high intensity Lipitor. Off aspirin since anticoagulation.Thank you for allowing us to participate in the care of your patient. Please feel free to contact us for any questions or if we can be of further assistance.Venecia Malhotra MD, FACC, FASEAssociate ProfessorDivision of Cardiovascular MedicineMedical Arts Hospital [id number] cmmjRD3105-26-75P45:26:05Consult [id number] 9|[id number] for patient sgeq79060-2Ysmgmzb noteLNUTRUST - [address] No[id number] BHABREXPCQRALNMH0363-47-31T60:26:051.2.840 .772423.1.72.3.15|1.2.840.579343.1.13.104. [id number] [facility] - Health History and Physical Notes Date/Time Note Provider Source 2023-08-29 09:21:00 TaHl2TW+tyygAIJ2fewtQyQRUzrUq0ACMh0XjJyz ah0xlXRm0L uDL0BveYNfi6eM6173-76-42O47:21:00 MEDICINE CLS ADMIT H&PPCP: Junaid Cleveland-NwankwoDate of Service: 4CHIEF COMPLAINT:vomitingHISTORY OF PRESENT ILLNESSKathleen is brought to [facility] by her daughter for evaluation of severe fatigue, nausea, vomiting, and shortness of breath. She was recently admitted to [facility] August 12-2022 for chest pain secondary to pneumonia. Since returning home she has had persistent nausea and vomiting that was unresolved with Zofran. She has had worsening fatigue and shortness of breath. She is no longer able to get out of bed and requires assistance to a bedside commode. No fever or cough. She has a known history of atrial fibrillation, but daughter states heart rate has been more erratic than usual. Patient has been unable to keep down food or liquid. She vomited 3 times yesterday. Family has been holding Lasix approximately every other day for the past week because she has been keeping down so little fluids. Patient denies pain. Pt denies urination any today, "dribbled yesterday".She was transferred to our [facility] in the early hours of this morning. She has not vomited since she came in. She denied any diarrhea or abdominal pain. She has no cough and no fever.PAST MEDICAL HISTORYPast Medical History:Diagnosis DateAsymptomatic bilateral carotid artery stenosisseen on imaging 12/2018Bilateral renal artery stenosis 11/16/2017Stent place in the Left renal arteryChronic combined systolic and diastolic congestive heart failureCKD (chronic kidney disease) stage 3, GFR 30-59 ml/minCVA (cerebral vascular accident)In 40s, reportedly related to thyroid surgeryHTN (hypertension)Hypothyroidismsurgically removed due to goiterNeuropathyPast Surgical History:Procedure Laterality DateAORTOGRAM N/A 06/01/2023Surgeon: Prince Salter MD; [facility] SECTIONCOLONOSCOPY N/A 11/25/2017Surgeon: Blair Caballero MD; Location: [facility] ([facility]) OR LocationESOPHAGOGASTRODUODENOSCOPY N/A 11/25/2017Surgeon: Blair Caballero MD; Location: [facility] ([facility]) OR LocationPHACOEMULSIFICATION OF CATARACT WITH INTRAOCULAR LENS IMPLANT Right 09/07/2018Surgeon: Isiah Garcia MD; Location: [place] OR LocationPHACOEMULSIFICATION OF CATARACT WITH INTRAOCULAR LENS IMPLANT Left 10/12/2018Surgeon: Isiah Garcia MD; Location: [place] OR LocationTHYROIDECTOMY in her 40s.due to goiterTONSILLECTOMYFamily HistoryProblem Relation Age of OnsetAneurysm Fatherin his headEmphysema MothersmokedNo Significant Medical Problems SisterALLERGIESAllergiesAllergen ReactionsPrednisone Other - See commentsAFIBMEDICATIONSNo current facility-administered medications on file prior to encounter.Current Outpatient Medications on File Prior to EncounterMedication Sig Dispense Refillmetoprolol tartrate 25 mg tablet Take 3 tablets by mouth in the morning and 3 tablets in the evening. 180 tablet 1ergocalciferol, vitamin d2, 1,250 mcg (50,000 unit) capsule Take 1 capsule by mouth weekly. 26 capsule 1HYDROcodone-acetaminophen 7.5-325 mg per tablet Take 1 tablet by mouth in the morning and 1 tablet at noon and 1 tablet in the evening.ondansetron 4 mg disintegrating tablet Take 1 tablet by mouth every 8 (eight) hours as needed for Nausea and Vomiting (N/V). 30 tablet 0atorvastatin 40 mg tablet Take 1 tablet by mouth every evening for 30 days. 30 tablet 0furosemide 40 mg tablet Take 1 tablet by mouth in the morning for 30 days. 30 tablet 0pantoprazole 40 mg EC tablet Take 1 tablet by mouth in the morning for 30 days. 30 tablet 0clopidogreL (PLAVIX) 75 mg tablet Take 1 tablet by mouth in the morning.metoprolol tartrate 50 mg tablet Take 1 tablet by mouth in the morning and 1 tablet in the evening.amiodarone 100 mg tablet Take 1 tablet by mouth in the morning. 90 tablet 1rivaroxaban (XARELTO) 15 mg tablet Take 1 tablet by mouth in the morning. Indications: PAF 30 tablet 6levothyroxine 88 mcg tablet TAKE ONE TABLET BY MOUTH EVERY MORNING 90 tablet 1SOCIAL HISTORYSocial HistorySocioeconomic HistoryMarital status: WidowedNumber of children: 3Highest education level: High school graduateOccupational HistoryOccupation: retired, sold mobile home partsTobacco UseSmoking status: NeverPassive exposure: NeverSmokeless tobacco: NeverVaping UseVaping Use: Never usedSubstance and Sexual ActivityAlcohol use: NoAlcohol/week: 0.0 standard drinks of alcoholDrug use: NoSexual activity: Not CurrentlySocial History NarrativeLive at home alone, 1 story. 02/27/2019Social Determinants of HealthFinancial Resource Strain: Low Risk (05/24/2023)Overall Financial Resource Strain (CARDIA)Difficulty of Paying Living Expenses: Not hard at allFood Insecurity: No Food Insecurity (05/24/2023)Hunger Vital SignWorried About Running Out of Food in the Last Year: Never trueRan Out of Food in the Last Year: Never trueTransportation Needs: No Transportation Needs (05/24/2023)PRAPARE - TransportationLack of Transportation (Medical): NoLack of Transportation (Non-Medical): NoPhysical Activity: Inactive (04/08/2023)Exercise Vital SignDays of Exercise per Week: 0 daysMinutes of Exercise per Session: 0 minSocial Connections: Unknown (05/18/2023)Social Connection and Isolation Panel [NHANES]Frequency of Communication with Friends and Family: More than three times a weekMarital Status: WidowedHousing Stability: Low Risk (05/24/2023)Housing Stability Vital SignUnable to Pay for Housing in the Last Year: NoNumber of Places Lived in the Last Year: 1Unstable Housing in the Last Year: NoPHYSICAL EXAMINATIONVitals:08/29/23 0552 08/29/23 0600 08/29/23 0700 08/29/23 0900BP: 139/89 128/75 113/77 (!) 146/99Pulse: 114 118 110 119Resp: 17 18 14 21Temp: 36.1 ?C (96.9 ?F)TempSrc: TympanicSpO2: 95% 94% 94% 93%Weight: 122 lb 5.7 oz (55.5 kg)Height: 4' 11" (1.499 m)O2 sat: SpO2 readings for the past 24 hrs:LlN16708/29/23 0027 94 %08/29/23 0200 95 %08/29/23 0400 96 %08/29/23 0545 93 %08/29/23 0552 95 %08/29/23 0600 94 %08/29/23 0700 94 %08/29/23 0900 93 %I & O:Intake/Output Summary (Last 24 hours) at 08/29/2023 0921Last data filed at 08/29/2023 0245Gross per 24 hourIntake 650 mlOutput --Net 650 mlPain Scale:General: alert and oriented x 3 ; no apparent distressHEENT: normocephalic atraumatic, pupils equal, round, reactive to lightNeck: supple, no lymphadenopathy, no bruits, no JVDLungs: clear to auscultation bilaterally, no crackles, no wheezes, cough is strong and effectiveCardio: regular rate and rhythm, no murmurs, no gallopsAbdomen: soft; non-tender; non-distended; normoactive bowel soundsExtremities: no clubbing, cyanosis, or edemaSkin: no rashesNeuro: cranial nerves grossly intact; sensation grossly intact; muscle strength grossly normal in all four extremitiesLABS - reviewed pertinent labs as below:Recent Results (from the past 48 hour(s))Cbc with DiffCollection Time: 08/29/23 12:43 AMResult Value Ref RangeWBC 19.08 (H) 4.30 - 11.10 10*3/?LRBC 4.27 3.93 - 5.25 10*6/?LHGB 13.0 11.6 - 15.0 g/dLHCT 38.3 35.7 - 45.2 %MCV 89.7 80.6 - 95.5 fLMCH 30.4 25.9 - 32.8 pgMCHC 33.9 31.6 - 35.1 g/dLRDW-SD 49.8 39.0 - 49.9 fLRDW-CV 15.3 12.0 - 15.5 %PLT 463 (H) 166 - 358 10*3/?LMPV 12.0 9.5 - 12.9 fLIPF % 13.2 (H) 1.3 - 7.7 %NRBC/100 WBC 0.0 0.0 - 10.0 /100 WBCsNRBC x10^3 <0.01 10*3/?LSEG % 75 33 - 76 %BAND % 16 (H) 0 - 1 %LYMPH % 4 (L) 14 - 54 %MONO % 3 0 - 4 %EOS % 2 0 - 3 %ANC 17.34 (H) 1.88 - 7.09 10*3/uLPLT ESTIMATE Increased (A) NormalComp. Metabolic Panel (94501)Collection Time: 08/29/23 12:43 AMResult Value Ref RangeNA 116 (LL) 135 - 145 mmol/LK 4.1 3.5 - 5.0 mmol/LCL 80 (L) 98 - 108 mmol/LCO2 TOTAL 22 (L) 23 - 31 mmol/LAGAP 14 2 - 16BUN 40 (H) 7 - 23 mg/dLGLUCOSE 138 (H) 70 - 110 mg/dLCREATININE 2.97 (H) 0.50 - 1.04 mg/dLTOTAL BILI 1.1 0.1 - 1.1 mg/dLCALCIUM 9.4 8.6 - 10.6 mg/Ángela PROTEIN 7.0 6.3 - 8.2 g/dLALBUMIN 4.0 3.5 - 5.0 g/dLALK PHOS 188 (H) 34 - 122 U/LALTv 14 5 - 35 U/LAST(SGOT) 20 13 - 40 U/LeGFR 15.7 mL/min/1.32v7EcdphoeqpQwxvzddhdn Time: 08/29/23 12:43 AMResult Value Ref RangeMAGNESIUM 2.1 1.7 - 2.4 mg/dLLipaseCollection Time: 08/29/23 12:43 AMResult Value Ref RangeLIPASE 93 0 - 220 U/LTroponin ICollection Time: 08/29/23 12:43 AMResult Value Ref RangeTROPONIN I 0.004 <=0.034 ng/mLCOVID-19 (ID NOW TESTING)Collection Time: 08/29/23 1:18 AMSpecimen: NASOPHARYNGEAL SWABResult Value Ref BjkbkUOXZ-FkH-8 Rapid ID NOW Positive (A) Not DetectedRAPID INFLUENZA A/BCollection Time: 08/29/23 1:18 AMSpecimen: NASOPHARYNGEAL SWABResult Value Ref RangeRapid Influenza A Negative NegativeRapid Influenza B Negative NegativeUrinalysisCollection Time: 08/29/23 1:42 AMResult Value Ref RangeAPPEARANCE Cloudy (A) ClearCOLOR Yellow YellowPH 5.0 4.8 - 8.0SP GRAVITY 1.017 1.003 - 1.030GLU U QUAL Normal NormalBLOOD 1+ (A) NegativeKETONES Negative NegativePROTEIN 100 mg/dL (A) NegativeUROBILIN Normal NormalBILIRUBIN Negative NegativeNITRITE Negative NegativeLEUK SARITHA Negative NegativeRBC/HPF >182 (H) 0 - 3 HPFWBC/HPF 9 (H) 0 - 5 HPFBACTERIA Few (A) NegativeMUCOUS Slight (A) Negative LPFSQ EPITH 37 HPFYEAST BUD 39 (H) <=1 HPFSPERM 1 <=1 HPFSODIUM, URINE RANDOMCollection Time: 08/29/23 1:42 AMResult Value Ref RangeNA URINE <5 mmol/LBLOOD CULTURE SCREENCollection Time: 08/29/23 2:04 AMSpecimen: ARM, LEFT, BELOW ELBOW; BloodResult Value Ref RangeBlood Culture-Aerobic Culture In Progress No growthBlood Culture-Anaerobic Culture In Progress No growthBLOOD CULTURE SCREENCollection Time: 08/29/23 2:04 AMSpecimen: ARM, LEFT, BELOW ELBOW; BloodResult Value Ref RangeBlood Culture-Aerobic Culture In Progress No growthBlood Culture-Anaerobic Culture In Progress No growthLactic Acid Whole BloodCollection Time: 08/29/23 2:04 AMResult Value Ref RangeLACTIC ACID 1.53 0.50 - 2.20 mmol/LBasic Metabolic Panel (NA, K, CL, CO2, GLUCOSE, BUN, CREATININE, CA)Collection Time: 08/29/23 6:24 AMResult Value Ref RangeNA 119 (LL) 135 - 145 mmol/LK 3.9 3.5 - 5.0 mmol/LCL 84 (L) 98 - 108 mmol/LCO2 TOTAL 23 23 - 31 mmol/LAGAP 12 2 - 16BUN 40 (H) 7 - 23 mg/dLGLUCOSE 110 70 - 110 mg/dLCREATININE 2.74 (H) 0.50 - 1.04 mg/dLCALCIUM 8.5 (L) 8.6 - 10.6 mg/dLeGFR 17.3 mL/min/1.30h0UoeapwzzyYugbylhctf Time: 08/29/23 6:24 AMResult Value Ref RangeMAGNESIUM 2.1 1.7 - 2.4 mg/dLN-Terminal Pro-BnpCollection Time: 08/29/23 6:24 AMResult Value Ref RangeNT-proBNP 16,500 (H) <=125 pg/mLOsmolality, Serum or PlasmaCollection Time: 08/29/23 6:24 AMResult Value Ref RangeOSMOLALITY 267 (L) 278 - 305 mOsm/kgOsmolality UrineCollection Time: 08/29/23 9:00 AMResult Value Ref RangeOSMO U 158 50 - 1,100 mOsm/kgIMAGING - reviewed, pertinent results as below:XR CHEST 1 VWResult Date: 08/29/2023Impression: Stable cardiomegaly. Moderate to large left and small right pleural effusions with associated atelectasis versus infiltrate. END REPORT RL: [id number] AFC: [id number] EKG:Hospital Encounter 08/29/23EKG-12 Lead ROUTINE ONCEEKG-12 Lead ROUTINE ONCEHospital Encounter 08/12/23EKG-12 Lead ROUTINE ONCEEKG-12 Lead ROUTINE ONCEEKG-12 Lead ROUTINE ONCEEKG-12 Lead ROUTINE ONCEOffice Visit 08/11/23EKG-12 Lead ROUTINEHospital Encounter 05/23/23EKG-12 LeadEKG-12 Lead ROUTINE ONCE *Canceled*EKG-12 Lead ROUTINE ONCE *Canceled*EKG-12 LeadEKG-12 LeadEKG-12 Lead ROUTINE ONCEEKG-12 Lead ROUTINE ONCEEKG-12 LEADEKG-12 LeadEKG-12 LeadHospital Encounter 05/05/23EKG-12 Lead ROUTINE ONCEEKG-12 Lead ROUTINE ONCEOffice Visit 05/05/23EKG-12 Lead ROUTINEHospital Encounter 04/06/23EKG-12 LeadEKG-12 Lead ROUTINE ONCEEKG-12 Lead ROUTINE ONCEOffice Visit 03/17/23EKG-12 Lead ROUTINEHospital Encounter 02/08/23EKG (SCANNED DOCUMENTS)EKG (SCANNED DOCUMENTS)EKG-12 LeadEKG-12 LeadEKG-12 Lead ROUTINE ONCEEKG-12 Lead ROUTINE ONCEHospital Encounter 01/16/23EKG-12 LeadEKG-12 Lead ROUTINE ONCEEKG-12 Lead ROUTINE ONCEHospital Encounter 10/26/22EKG-12 Lead ROUTINE ONCEEKG-12 Lead ROUTINE ONCEASSESSMENT/Bharath Bella Welch is a 78 year old female with PMH as listed above, admitted to the hospital with:- severe hyponatremia, likely due to persistent vomiting- severe dehydration- persistent vomiting, not clear why. We will get a CT of abdomen to assess- left sided pleural effusion with infiltrate, likely pneumonia with parapneumonia effusion. We started pt on abx and we plan thoracentesis later today- diastolic heart failure- aortic stenosis- atrial fibrillation s/p ablation, chronically anticoagulated.- Acute renal failure, in a patient with h/o renal artery stenosis, s/p stenting. But according to patient one kidney is not working- HTN- elevated BNP- COVID, new diagnosisPlan:ICUConsult cardiologyConsult infectious diseaseConsult nephrologyAbxBlood cultureHydration.Resume anticoagulation and PlavixHold lasixThoracentesis later todayDue to a high probability of clinically significant, life threatening deterioration, the patient required my highest level of preparedness to intervene emergently and I personally spent 65 minutes of critical care time directly and personally managing the patient. This critical care time included obtaining a history; examining the patient; pulse oximetry; ordering and review of studies; arranging urgent treatment with development of a management plan; evaluation of patient's response to treatment; frequent reassessment; and, discussions with other providers.This critical care time was performed to assess and manage the high probability of imminent, life-threatening deterioration that could result in multi-organ failure. It was exclusive of separately billable procedures and treating other patients and teaching time.Most recent hemoglobin A1c level:Advance Care Planning discussed and documented; advance care plan or surrogate decision maker documented in the medical record:Pain Assessment Documented:Patient treated with a beta-lactam antibiotic as definitive therapy MSSA bacteremia:Patients with Primary Headache Diagnosis and Imaging of the Head was Obtained: 92678-0Lezabcz and physical iawpTD4298-92-02O87:33:32History and physical noteTXT1.2.840.00[id number] 1124AVAvailable for patient taua21422-8Zqsrlfz and physical noteLNNARRATIVEFormatted C-CDA narrative textUT[address] Bo[id number] JJDNGZXW5975-97-00W70:33:321.2.840.276462.1.72.3.1 5|1.2.84[id number] [facility] 2023-08-12 14:18:00 6RxTpva5VQkNHlcHhLYs57IpyqRVRkoY4/H954TN hPyhjZAyzX SDEO7o4xYBNlJP2617-08-61I89:18:00 [facility] Hospitalist Admission H&PDate of Service: 3CHIEF COMPLAINT: Chest pain and shortness of breathHISTORY OF PRESENT ILLNESSLovely Welch is a 78 year old female who presents with chest discomfort mainly in the sternal region and the epigastric area. Patient also has some shortness of breath associated with it. 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 Patient recently had an a EP study with ablation along with pulmonary vein isolation. She had been on amiodarone and Xarelto. Patient actually has been doing well since the above ablation. She was feeling much better the last couple of weeks until this episode where she started having some nausea. She will go with some vomiting. Imaging studies revealed possible aspiration pneumonia. Patient will be admitted to the hospital for neb treatments. Continue with steroids for possible pneumonitis. Patient will be given antibiotics for aspiration pneumonia. Cardiology has also been consulted.PAST MEDICAL HISTORYPast Medical History:Diagnosis DateAsymptomatic bilateral carotid artery stenosisseen on imaging 12/2018Bilateral renal artery stenosis 11/16/2017Stent place in the Left renal arteryChronic combined systolic and diastolic congestive heart failureCKD (chronic kidney disease) stage 3, GFR 30-59 ml/minCVA (cerebral vascular accident)In 40s, reportedly related to thyroid surgeryHTN (hypertension)Hypothyroidismsurgically removed due to goiterNeuropathyPAST SURGICAL HISTORYPast Surgical History:Procedure Laterality DateAORTOGRAM N/A 06/01/2023Surgeon: Prince Salter MD; [facility]ATIONCES[facility] SECTIONCOLONOSCOPY N/A 11/25/2017Surgeon: Blair Caballero MD; Location: [facility] ([facility]) OR LocationESOPHAGOGASTRODUODENOSCOPY N/A 11/25/2017Surgeon: Blair Caballero MD; Location: [facility] ([facility]) OR LocationPHACOEMULSIFICATION OF CATARACT WITH INTRAOCULAR LENS IMPLANT Right 09/07/2018Surgeon: Isiah Garcia MD; [facility] [place] [facility] CATARACT WITH INTRAOCULAR LENS IMPLANT Left 10/12/2018Surgeon: Isiah Garcia MD; Location: [place] OR LocationTHYROIDECTOMY in her 40s.due to goiterTONSILLECTOMYALLERGIESAllergiesAllergen ReactionsPrednisone Other - See commentsAFIBMEDICATIONSCurrent home medication list reviewed:Current Discharge Medication ListSTOP taking these medicationsclopidogreL (PLAVIX) 75 mg tablet Comments:Reason for Stopping:metoprolol tartrate 50 mg tablet Comments:Reason for Stopping:amiodarone 100 mg tablet Comments:Reason for Stopping:rivaroxaban (XARELTO) 15 mg tablet Comments:Reason for Stopping:polyethylene glycol 3350 (MIRALAX) 17 gram/dose powder Comments:Reason for Stopping:levothyroxine 88 mcg tablet Comments:Reason for Stopping:acetaminophen-codeine 300-30 mg tablet Comments:Reason for Stopping:FAMILY HISTORYFamily HistoryProblem Relation Age of OnsetAneurysm Fatherin his headEmphysema MothersmokedNo Significant Medical Problems SisterSOCIAL HISTORYSocial HistorySocioeconomic HistoryMarital status: WidowedNumber of children: 3Highest education level: High school graduateOccupational HistoryOccupation: retired, sold mobile home partsTobacco UseSmoking status: NeverPassive exposure: NeverSmokeless tobacco: NeverVaping UseVaping Use: Never usedSubstance and Sexual ActivityAlcohol use: NoAlcohol/week: 0.0 standard drinks of alcoholDrug use: NoSexual activity: Not CurrentlySocial History NarrativeLive at home alone, 1 story. 02/27/2019Social Determinants of HealthFinancial Resource Strain: Low Risk (05/24/2023)Overall Financial Resource Strain (CARDIA)Difficulty of Paying Living Expenses: Not hard at allFood Insecurity: No Food Insecurity (05/24/2023)Hunger Vital SignWorried About Running Out of Food in the Last Year: Never trueRan Out of Food in the Last Year: Never trueTransportation Needs: No Transportation Needs (05/24/2023)PRAPARE - TransportationLack of Transportation (Medical): NoLack of Transportation (Non-Medical): NoPhysical Activity: Inactive (04/08/2023)Exercise Vital SignDays of Exercise per Week: 0 daysMinutes of Exercise per Session: 0 minSocial Connections: Unknown (05/18/2023)Social Connection and Isolation Panel [NHANES]Frequency of Communication with Friends and Family: More than three times a weekMarital Status: WidowedHousing Stability: Low Risk (05/24/2023)Housing Stability Vital SignUnable to Pay for Housing in the Last Year: NoNumber of Places Lived in the Last Year: 1Unstable Housing in the Last Year: NoREVIEW [employer]10 systems negative except per HPIPHYSICAL EXAMINATIONBP 95/51 | Pulse 55 | Temp 36.4 ?C (97.5 ?F) | Resp 16 | Ht 1.499 m (4' 11") | Wt 53.5 kg (117 lb 14.4 oz) | SpO2 94% | BMI 23.81 kg/m?General: No respiratory distressHEENT: Anicteric sclerae, NCAT; left-sided carotid bruitLungs: basilar cracklesCardio: RRR with systolic ejection fractionAbdomen: Soft, NTNDGenitourinary: No lesionsMusculoskeletal: Normal muscle mass, no synovitisSkin: No rash or lesionsNeuro: AAOx3, no focal deficitsPsych: Normal affectLABS - reviewed pertinent labs as below:CBC BMP PT/INRWBC x10^3 (/CMM)Date Value04/11/2006 6.6WBC (10*3/?L)Date Value08/12/2023 12.35 (H)NADate Value08/12/2023 135 mmol/L04/11/2006 143 MMOL/LNo results found for: "PT"RBC x10^6 (/CMM)Date Value04/11/2006 4.96RBC (10*6/?L)Date Value08/12/2023 4.27KDate Value08/12/2023 4.8 mmol/L04/11/2006 4.3 MMOL/LPT INR (no units)Date Value05/31/2005 0.9INR (no units)Date Value08/01/2023 2.4PLT x10^3 (/CMM)Date Value04/11/2006 257PLT (10*3/?L)Date Value08/12/2023 242CALCIUMDate Value08/12/2023 9.4 mg/dL04/11/2006 9.0 MG/DLHGBDate Value08/12/2023 13.3 g/dL04/11/2006 14.1 G/DLCLDate Value08/12/2023 102 mmol/L04/11/2006 105 MMOL/LaPTTHCT (%)Date Value08/12/2023 41.908 43.4BUNDate Value08/12/2023 17 mg/dL04/11/2006 23 MG/DLAPTT (SEC)Date Value05/31/2005 29APTT Patient (Seconds)Date Value05/27/2023 71 (H)CREATININEDate Value08/12/2023 1.07 mg/dL (H)04/11/2006 1.17 MG/DLIMAGING - reviewed, pertinent results as below:Hospital Encounter on 08/12/23CT CHEST PULMONARY ANGIOGRAMNarrativePROCEDURE: CT CHEST ANGIOGRAM WITH INTRAVENOUS CONTRAST. PULMONARY EMBOLISMPROTOCOL.CLINICAL INDICATION: Pulmonary embolism (PE) suspected, unknown D-dimerComparison: NoneTECHNIQUE: Volumetric helical CT angiogram was performed of the chest (lungapices to bases) with IV contrast. Images were reconstructed at 1.25 and2.5 mm slice thickness. Axial MIPs and coronal and sagittal MPR imageswere generated and reviewed.FINDINGS:Devices: NoneHEART AND GREAT VESSELS: The opacification of the pulmonary vasculature isappropriate. No filling defects are seen through the level of the segmentalpulmonary arteries. Main pulmonary artery measures 3.1 cm. The thoracicaorta is normal in caliber.The heart is enlarged with more pronounced biatrial enlargement. There istrace pericardial effusion. Mitral annular calcification. The RV to LV isnormal.MEDIASTINUM AND LOWER NECK: No central airway lesions are detected. Theesophagus is within normal limits. The included thyroid gland appearsnormal.LYMPH NODES: Scattered small lymph nodes in both sides of the mediastinumand hilar regions. No evidence of intrathoracic lymphadenopathy.LUNGS AND PLEURA: The lungs are well-expanded. Bibasilar reticular andgroundglass opacities of the lower lobes, lingula and right middle lobe,more pronounced at the dependent lungs. Small opacities also at thedependent upper lobes. Otherwise mild mosaic appearance to the lungs Nofocal consolidation. No suspicious nodules. No pleural abnormalitydetected.VISUALIZED UPPER ABDOMEN: The included solid organs and hollow viscusappear within normal limits. Small hiatal hernia.OSSEOUS STRUCTURES AND SOFT TISSUES: No focal osseous lesions are detected.The soft tissues appear normal. Eccentric atherosclerotic plaque andcalcification of the descending thoracic and abdominal aorta.ImpressionNo evidence of acute pulmonary embolism through the level of thesubsegmental branches. AIDOC (computer aided detection software) confirmsno filling defects in the pulmonary arteries.Opacities in both lungs may related to aspiration changes or pneumonia andatelectasis.Cardiomegaly. Small pericardial effusion. Slight prominence of the mainpulmonary artery may be related to pulmonary artery hypertension.Small hiatal hernia.Preliminary Report Dictated by Resident: Susan Kelly MD., have reviewed this study and agree with the abovereport.XR CHEST 1 VWNarrativeEXAM: XR CHEST 1 VWHISTORY: 78 years-old Female; Provided indication: chest pain .TECHNIQUE: Single frontal view of the chest.COMPARISON: This radiograph dated 05/24/2023FINDINGS:The lungs are well-expanded. Persistent bilateral diffuse interstitial lungmarkings, similar to the prior. No focal consolidation is seen. Slightinterval improvement of the right pleural effusion.Persistent cardiomegaly. Aortic knob calcifications.No focal osseous lesions or acute osseous findings are detected.ImpressionFindings of cardiomegaly trace right pleural effusion and diffuse bilateralinterstitial opacities suggestive of pulmonary edema, grossly unchangedcompared to the prior.Preliminary Report Dictated by Resident: Yessy DeanSESSMENT:1. Chest pain rule out acute coronary syndrome2. Pleuritic chest pain3. Paroxysmal atrial fibrillation4. CHF with diastolic heart failure5. Hypothyroidism6. Hypertensive emergency /urgency the homePLAN:1. Chest pain rule out acute coronary syndrome; serial troponins and EKG have been negative. Appreciate cardiology consultation2. Pleuritic chest pain; most likely related to aspiration pneumonia. Continue with diuretics and angiolytics.3. Paroxysmal atrial fibrillation; continue with medication for rate control4. CHF with diastolic heart failure; continue with gentle diuresing5. Hypothyroidism; thyroid studies are stable6. Hypertensive emergency / urgency; continue with strict blood pressure controlDVT prophylaxis: enoxaparinStress ulcer prophylaxis: no indication for prophylaxisCode status: FULLAdvanced Care Planning (Z71.89)Above assessment and plan discussed at length with patient, patient expressed full understanding. Questions and concerned addressed.Surrogate decision maker: left breast and CHILDRENLevel of care expected after discharge: homeTime spent: 4 minutes discussing the advanced care planSmoking Cessation: (Z71.6)Tobacco user?: NO osPatient will require inpatient stay of 2 midnights or more given high risk of morbidity and mortality.[place] [employer] was verified during stay[place]omercy [place] [id number] and physical tnorXF1678-19-98W13:30:19History and physical noteTXT1.2.840.905472.1.13.104.2.7.2.907913|[id number] for patient bdgf15652-4Cxfziro and physical noteLNNARRATIVEFormatted C-CDA narrative textUT[address] Ip[id number] WYLXNQIM9505-90-68Y09:30:191.2.840.316576.1.72.3.1 5|1.2.840.504598.1.13.104.2.7.2.727879_[id number] [facility] 2023-04-07 12:56:25 PMNBwkgs6kN6W0kCtJlPBJgViLCLaQJGsCz9w/LO +SZHCOXQJs X3cQqJiKTtnUry4170-13-02W17:56:25 Medicine History & PhysicalDate of Service: 04/07/2023t presents from: HomeCC: Chest painHistory of Present Illness:Lovely Welch is a 78 year old female with a PMH of HTN, HLD, CAD, A. Fib, chronic combined CHF, CVA, PVD with bilateral renal artery stenosis s/p renal artery stent and bilateral carotid stenosis, hypothyroidism, chronic back pain and lumbar compression fracture who presented to the ED for chest pain. She reports that she developed chest pain/pressure, SOB and palpitations around bedtime. She check her BP and was noted to be in A. Fib so she came to the ED. In the ED, she was found to be in A. Fib with RVR and was given IV diltiazem 15 mg then 10 mg with improvement in her HR. She was also noted to have a subtherapeutic INR after holding her home warfarin due to markedly supratherapeutic levels 6 days ago. She is admitted for further management.She notes that this worsening A. Fib happened after starting a Medrol dose pack for her knee arthritis. She previously had another exacerbation of her A. Fib in relation to previously taking a Medrol dose pack. ROS: Pt endorses chest pain/pressure, SOB and palpitations. Pt denies fever / chills / nausea / vomiting / diarrhea / constipation / cough / abdominal pain / dysuria / hematuria / melena / hematochezia / rashes / suicidal or homicidal ideation / All others negativeReview of Hx/Meds:No current facility-administered medications on file prior to encounter. Current Outpatient Medications on File Prior to Encounter Medication Sig Dispense Refill Hydrocodone-Acetaminophen 7.5-300 mg tablet Take 1 tablet by mouth as needed for Pain (scale 4-6). lidocaine 5 % (700 mg/patch) patch 1 patch every 12 hours 30 Patch 0 methocarbamoL 500 mg tablet Take 1 tablet by mouth in the morning and 1 tablet in the evening. Do all this for 60 days. 60 tablet 1 methylPREDNISolone (MEDROL, PEYTON,) 4 mg tablets Take by mouth SEE-INSTRUCTIONS for 6 days. follow package directions 21 Each 0 carvediloL (COREG) 25 mg tablet Take 1 tablet by mouth in the morning and 1 tablet in the evening. Take with meals. levothyroxine (SYNTHROID) 88 mcg tablet Take 1 tablet by mouth every morning. 90 tablet 0 atorvastatin 80 mg tablet Take 1 tablet by mouth at bedtime. 90 tablet 3 warfarin 5 mg tablet Take 1 tablet by mouth every evening. 30 tablet 0 diazePAM (VALIUM) 5 mg tablet Take 1 tablet by mouth 2 (two) times daily as needed for Muscle Spasms. 30 tablet 0 ezetimibe 10 mg tablet Take 1 tablet by mouth in the morning. 90 tablet 3 I have reviewed the patient's home medicationsPMH: Past Medical History: Diagnosis Date Asymptomatic bilateral [...] surgically removed due to goiter Neuropathy PSH: has a past surgical history that includes section; thyroidectomy (in her 40s. ); colonoscopy (N/A, 11/25/2017); esophagogastroduodenoscopy (N/A, 11/25/2017); phacoemulsification of cataract with intraocular lens implant (Right, 09/07/2018); phacoemulsification of cataract with intraocular lens implant (Left, 10/12/2018); and tonsillectomy. Family Hx: Denies family history of HTN, DM, CAD, ME, CVA or cancerSocial History Tobacco Use Smoking status: Never Passive exposure: Never Smokeless tobacco: Never Vaping Use Vaping Use: Never used Substance Use Topics Alcohol use: No Alcohol/week: 0.0 standard drinks of alcohol Drug use: No Current Scheduled Medications Current IV Current Facility-Administered Medications: atorvastatin (LIPITOR) tablet 80 mg, 80 mg, Oral, [facility], Jigar Nicole MD carvediloL (COREG) tablet 25 mg, 25 mg, Oral, BID MEALS, Jigar Nicole MD, 25 mg at 04/07/23 0905 diazePAM (VALIUM) tablet 5 mg, 5 mg, Oral, BIDPRN, Jigar Nicole MD ezetimibe (ZETIA) tablet 10 mg, 10 mg, Oral, DAILY, Jigar Nicole MD, 10 mg at 04/07/23 0905 levothyroxine (SYNTHROID) tablet 88 mcg, 88 mcg, Oral, QAM-0600, Jigar Nicole MD, 88 mcg at 04/07/23 0801 lidocaine (LIDODERM) 5 % (700 mg/patch) patch 1 Patch, 1 Patch, Topical, DAILY, Jigar Nicole MD, 1 Patch at 04/07/23 0801 methocarbamoL (ROBAXIN) tablet 500 mg, 500 mg, Oral, BID, Jigar Nicole MD, 500 mg at 04/07/23 0905 warfarin (COUMADIN) tablet 5 mg, 5 mg, Oral, DAILY AT 1700, Jigar Nicole MD acetaminophen (TYLENOL) tablet 1,000 mg, 1,000 mg, Oral, Q6HPRN, Jigar Nicole MD ondansetron (ZOFRAN (PF)) injection 4 mg, 4 mg, Slow IV Push, Q6HPRN, Jigar Nicole MD traMADoL (ULTRAM) tablet 50 mg, 50 mg, Oral, Q8HPRN, Jigar Nicole MD, 50 mg at 04/07/23 1241Objective:Vitals:Vitals: 04/07/23 0515 04/07/23 0722 04/07/23 0818 04/07/23 1217 BP: 111/76 (!) 147/89 (!) 148/90 (!) 150/72 Pulse: 123 102 107 96 Resp: Temp: 36.4 ?C (97.5 ?F) 36.6 ?C (97.9 ?F) 35.6 ?C (96.1 ?F) TempSrc: SpO2: 96% 93% 94% Weight: 62.5 kg (137 lb 11.2 oz) Height: I/O's:No intake or output data in the 24 hours ending 04/07/23 1256Physical Exam:Constitutional: A&O x3, well-developed, well-nourished, and in no distress. Head: Normocephalic and atraumatic. Eyes: PERRL. Conjunctivae and EOM are normal. Neck: Normal range of motion. Neck supple. No JVD present.Cardiovascular: Normal rate, irregularly irregular rhythm, normal heart sounds Pulmonary/Chest: Effort normal and breath sounds normal. No respiratory distress. No wheezes, rales or rhonchi. Abdominal: Soft. Bowel sounds are normal. No TTP, non-distended and no masses. No rebound or guarding. Musculoskeletal: Normal range of motion. No edema or tenderness. Lymphadenopathy: No cervical adenopathy. Neurological: A&O x3. No focal deficits. Skin: Skin is warm and dry. No rash noted. No erythema. No pallor. Labs:BMP:BMP NA Date Value 04/06/2023 138 mmol/L 03/18/2023 136 mmol/L 03/15/2023 137 mmol/L 02/11/2023 137 mmol/L 02/10/2023 138 mmol/L 04/11/2006 143 MMOL/L 09/11/2005 139 MMOL/L 09/10/2005 135 MMOL/L 09/10/2005 136 MMOL/L 12/17/2004 144 MMOL/L K Date Value 04/06/2023 4.4 mmol/L 03/18/2023 4.7 mmol/L 03/15/2023 4.6 mmol/L 02/11/2023 4.7 mmol/L 02/10/2023 4.0 mmol/L 04/11/2006 4.3 MMOL/L 09/11/2005 4.0 MMOL/L 09/10/2005 3.7 MMOL/L 09/10/2005 4.0 MMOL/L 12/17/2004 4.5 MMOL/L CALCIUM Date Value 04/06/2023 10.7 mg/dL (H) 03/18/2023 9.3 mg/dL 03/15/2023 10.2 mg/dL 02/11/2023 9.3 mg/dL 02/10/2023 9.3 mg/dL 04/11/2006 9.0 MG/DL 09/11/2005 8.3 MG/DL (L) 09/10/2005 8.2 MG/DL (L) 09/10/2005 8.4 MG/DL (L) 12/17/2004 9.1 MG/DL CL Date Value 04/06/2023 103 mmol/L 03/18/2023 103 mmol/L 03/15/2023 99 mmol/L 02/11/2023 102 mmol/L 02/10/2023 101 mmol/L 04/11/2006 105 MMOL/L 09/11/2005 109 MMOL/L (H) 09/10/2005 104 MMOL/L 09/10/2005 104 MMOL/L 12/17/2004 110 MMOL/L (H) BUN Date Value 04/06/2023 34 mg/dL (H) 03/18/2023 38 mg/dL (H) 03/15/2023 47 mg/dL (H) 02/11/2023 34 mg/dL (H) 02/10/2023 31 mg/dL (H) 04/11/2006 23 MG/DL 09/11/2005 10 MG/DL 09/10/2005 13 MG/DL 09/10/2005 16 MG/DL 12/17/2004 17 MG/DL CREATININE Date Value 04/06/2023 1.55 mg/dL (H) 03/18/2023 1.87 mg/dL (H) 03/15/2023 1.90 mg/dL (H) 02/11/2023 1.95 mg/dL (H) 02/10/2023 1.80 mg/dL (H) 04/11/2006 1.17 MG/DL 09/11/2005 0.97 MG/DL 09/10/2005 0.87 MG/DL 09/10/2005 0.97 MG/DL 12/17/2004 1.28 MG/DL GLUCOSE Date Value 04/06/2023 169 mg/dL (H) 03/18/2023 112 mg/dL (H) 03/15/2023 100 mg/dL 02/11/2023 109 mg/dL 02/10/2023 105 mg/dL 04/11/2006 100 MG/DL 09/11/2005 98 MG/DL 09/10/2005 108 MG/DL 09/10/2005 175 MG/DL (H) 12/17/2004 100 MG/DL CO2 TOTAL Date Value 04/06/2023 27 mmol/L 03/18/2023 24 mmol/L 03/15/2023 30 mmol/L 02/11/2023 27 mmol/L 02/10/2023 30 mmol/L 04/11/2006 27 MMOL/L 09/11/2005 24 MMOL/L 09/10/2005 22 MMOL/L (L) 09/10/2005 25 MMOL/L 12/17/2004 27 MMOL/L CBC:CBCWBC x10^3 (/CMM) Date Value 04/11/2006 6.6 WBC (10*3/?L) Date Value 04/06/2023 13.37 (H) RBC x10^6 (/CMM) Date Value 04/11/2006 4.96 RBC (10*6/?L) Date Value 04/06/2023 4.85 PLT x10^3 (/CMM) Date Value 04/11/2006 257 PLT (10*3/?L) Date Value 04/06/2023 306 HGB Date Value 04/06/2023 14.8 g/dL 04/11/2006 14.1 G/DL HCT (%) Date Value 04/06/2023 44.6 04/11/2006 43.4 BMP:Hepatic Function PanelALBUMIN Date Value 04/06/2023 4.2 g/dL 04/11/2006 4.0 G/DL T PROTEIN Date Value 04/06/2023 6.9 g/dL 04/11/2006 7.3 G/DL TOTAL BILI Date Value 04/06/2023 0.5 mg/dL 04/11/2006 0.4 MG/DL BILI UNCON Date Value 05/11/2018 0.3 mg/dL 04/11/2006 0.4 MG/DL BILI CONJ Date Value 05/11/2018 0.0 mg/dL 04/11/2006 0.0 MG/DL ALT(SGPT) (U/L) Date Value 05/19/2019 16 04/11/2006 30 ALTv (U/L) Date Value 04/06/2023 19 AST(SGOT) (U/L) Date Value 04/06/2023 21 04/11/2006 19 ALK PHOS (U/L) Date Value 04/06/2023 125 (H) 04/11/2006 128 (H) Troponin: Recent Labs TROPNI 0.033 I have reviewed all relevant labsImaging:CT LUMBAR SPINE WO CONTRASTResult Date: 04/06/2023Ordering physician: SHERICE MCLAUGHLIN INDICATION: Back pain COMPARISON: MRI of the lumbar spine dated 03/26/2023 TECHNIQUE: Axial images of the lumbar spine were performed without the administration of intravenous contrast material. Images were reformatted in the coronal and sagittal plane. CT scan was performed according to ALARA (as low as reasonably achievable) policy. FINDINGS: The lumbar spine is in normal anatomic alignment. There is redemonstration of a superior endplate compression fracture of L1, with approximately 30% vertebral body height loss and no bony retropulsion. There is a healing fracture of the transverse process of L1 on the left (series 2, image 25). There is atherosclerotic calcification of the aorta without significant aneurysmal dilatation. The right kidney is atrophic. There is a stent in the left renal artery. There is a calcified fibroid in the uterus. There are mild diffuse disc bulges throughout the lower lumbar spine, without significant central canal stenosis. Facet arthropathy and ligamentum flavum thickening results in mild to moderate neural foraminal stenosis at L3-L4, L4-L5 and L5-S1. Stable subacute superior endplate compression fracture of L1, with approximately 30% vertebral body height loss. Apparent healing nondisplaced fracture of the left transverse process of L1. Bilateral espf-wh-efggugky neural foraminal stenosis throughout the lower lumbar spine related to facet arthropathy and ligamentum flavum thickening. RL: 460 AFC: [id number] XR CHEST 1 VWResult Date: 04/06/2023ORDERING PHYSICIAN: SHERICE MCLAUGHLIN CLINICAL HISTORY: Chest pain COMPARISON: 02/08/2023 TECHNIQUE: Portable Chest performed at 04/06/2023 9:15 PM. Technical Quality: Diagnostic FINDINGS: There is apparent prominence of the pulmonary vasculature and indistinctness suggesting pulmonary edema, but which may be artifactually accentuated by portable technique and suboptimal aeration. Repeat full inspiration PA and lateral chest x-ray may be of use for clarification. No appreciable pneumothorax or effusions. There is ectatic thoracic aorta. Cardiac silhouette is not enlarged. Decreased aeration with equivocal edema type pattern. HS: Y RL: 6200 CT HEAD WO CONTRASTResult Date: 04/01/2023EXAM: CT HEAD WO CONTRAST HISTORY: 78 years-old Female; Provided indication: Head trauma, moderate-severe . History obtained from [facility]: "Supratherapeutic INR with history of multiple falls, left posterior skull hematoma. Patient has history of chronic kidney disease" TECHNIQUE: Axial CT of the head was performed and reconstructed at 5 mm intervals. Coronal and sagittal reformatted images were generated. COMPARISON: None FINDINGS: The ventricles and cerebral sulci are normal in caliber and configuration. No midline shift or pathological extra-axial fluid collection is present. The basal cisterns are unremarkable. No acute intracranial hemorrhage or significant mass effect is visualized. Faint hypodensity seen in the left occipital region with loss of fraser-white matter differentiation. The fraser-white matter differentiation is otherwise preserved. The mastoid air cells and visualized paranasal air sinuses are clear. Diffuse tiny lytic lesions scattered in the calvarium and skull base. 1. No acute calvarial fracture. 2. No acute intracranial hemorrhage. 3. Questionable hypodensity in the left occipital lobe, unchanged from the prior scan favored to be artifactual. An acute to subacute infarct cannot be excluded. Clinical correlation is recommended. 4. Diffuse punctate lucent lesions of the calvarium, progressed from the prior CT head likely related to the patient's known history of chronic kidney disease.. Preliminary Report Dictated by Resident: Moreno Lane, Dacia Rivera MD., have reviewed this study and agree with the above report.MR LUMBAR SPINE WO CONTRASTResult Date: 03/26/2023EXAM: MR LUMBAR SPINE WO CONTRAST HISTORY: Low back pain, symptoms persist with > 6 wks treatment TECHNIQUE: MRI of lumbar spine was performed on 1.5 Dedra without intravenous contrast. COMPARISON: CT abdomen dated 03/18/2023. FINDINGS: There is superior endplate compression deformity of L1 vertebral body with associated T1 hypointense, T2 and STIR hyperintense signal suggestive of acute to subacute fracture. No more than 30% height loss with no retropulsion into the spinal canal. Normal lumbar lordosis. The vertebral bodies are otherwise normal in height and alignment. The background bone marrow signal is unremarkable. The conus medullaris terminates at L2 and is normal. Cauda equina nerve roots are unremarkable. Lumbar discs are normal in height and signal intensity. At L1-L2, L2-L3 , no high-grade spinal canal stenosis or significant neural foraminal narrowing. At L3-L4, mild diffuse disc bulge with bilateral facet arthrosis and ligamentum flavum thickening. No high-grade spinal canal stenosis or significant neural foraminal narrowing. At L4-L5, mild diffuse disc bulge with bilateral facet arthrosis. No high-grade spinal canal stenosis or significant neural foraminal narrowing. At L5-S1, right lateral facet arthrosis. No high-grade spinal canal stenosis or significant neural foraminal narrowing. Synovial cyst is noted posterior to the right facet joint. The paraspinal soft tissues are unremarkable. Acute to subacute L1 compression fracture with approximately 30% height loss. No retropulsion into the spinal canal. Mild multilevel degenerative changes without causing high-grade spinal canal stenosis or significant neural foraminal narrowing at any level. An opaque in [employer] message was sent to ordering provider IFEANYI Willis, at time of report dictation.XR LUMBAR SPINE 5 VWResult Date: 03/24/2023EXAM: XR LUMBAR SPINE 5 VW HISTORY: left low back pain COMPARISON: None. FINDINGS: The lumbar vertebral bodies and intervertebral disc spaces are normal in appearance except for osteophytes protruding anteriorly from some of the lumbar vertebrae. L1 and L2 are connected by a bony bridge anteriorly. The pedicles, apophyseal joints and neural arches are normal in appearance. Lordosis is preserved. CT ABDOMEN PELVIS WO CONTRASTResult Date: 03/18/2023ORDERING PHYSICIAN: Syed HATFIELD HISTORY: Flank pain, kidney stone suspected TECHNIQUE: CT abdomen and pelvis without intravenous contrast. This examination was performed according to ALARA principles. COMPARISON: 10/26/2022 FINDINGS: Visualized lower chest: Small hiatal hernia. Gastrointestinal: Liver, gallbladder, pancreas, and spleen are within normal limits. Stomach and small bowel are within normal limits. Colonic diverticula. Appendix is visualized normal. Genitourinary: Adrenal glands are within normal limits. Right kidney atrophy. Left kidney cyst. No stone or hydronephrosis. Ureters and bladder are within normal limits. Uterus contains a calcified fibroid. Vascular and retroperitoneum: Aorta and iliac artery atherosclerotic calcifications. Left renal artery stent. No lymphadenopathy. Bones: No acute abnormality. No acute intra-abdominal/pelvic abnormality. RL: 1105 End of Report Assessment and plan:Principal Problem: Chest pain, unspecified typeChronic A. Fib/A. Flutter with RVR:- RVR resolved. Continue PO Coreg and PO diltiazem. - Continue warfarin for anticoagulation. Dose reduced to 3 mg today given recent supratherapeutic levels on 5 mg daily. Follow-up repeat INR in the AM. - Cardiology consult.Subtheraputic INR:- Redose warfarin as above. Goal INR 2-3 for A. Fib. HTN: - Continue Coreg and PO diltiazem.HLD:- Continue Lipitor and Zetia. Chronic combined CHF:- Euvolemic.- Continue Coreg and PO diltiazem. - Cardiology consult. PVD:- Start aspirin. Continue Lipitor. History of CVA:- Start aspirin and continue Lipitor for secondary prevention of CVA. Hypothyroidism:- Continue levothyroxine. CKD III:- At baseline renal function. - Avoid nephrotoxins and renally dose all medications. Chronic back painSubacute L1 compression fracture:- Continue analgesics.- PT consult. DVT prophylaxis: Warfarin Advanced Care Planning ( Z71.89 )Above assessment and plan discussed at length with patient, patient expressed full understanding. Questions and concerns addressed I spent 18 minutes discussing the advance care planning.Advanced Directive Maker: SelfLevel of comfort: N/ACode Status: Full codeNon-tobacco user (Z71.6)Patient counseled at length and Pt expressed full understanding, Time discussed 3 minutesDisposition: Home Si gned:Сергей Hi MD04/07/2023 71903-5Ogybikm and physical vxlkYA9508-11-20Z95:59:58History and physical noteTXT1.2.840.055364.1.13.104.2.7.2.480678|[id number] 4547AVAvailable for patient pbwy96941-6Cmkxgre and physical noteLNUT[address] Ue[id number] MCVEWVCN8430-23-79G86:59:581.2.840.375771.1.72.3.1 5|1.2.840.978949.1.13.104.2.7.2.727879_[id number] [facility] Procedure Notes Date/Time Note Provider Source 2023-09-08 15:59:52 kpE63+6peg6ob60QxeUI AMYBtnpFKyIvn3 cv/shuP6E7PNyBaouo0ylSUSbXoyZu7451 -01-25T15:59:52Procedure(s): CHEST TUBE INSERTIONPre-Procedure Diagnose(s): Pleural effusionPost-Procedure Diagnose(s): Pleural effusion CHEST TUBE PLACEMENT - PULMONARY/CRITICAL CAREDate of Service: 09/08/2023Indication/Diagnosis: recurrent large pleural effusionConsent type: elective procedure and indications/complications discussed with patient and daughter; written consent obtained and placed in the chartPreProcedure Verification Completed yes, Site Marking Completed yes, Time Out Completed yes.Aseptic technique: ChlorhexidineComplications: noneNarrative:Ultrasound of the left mid axillary area revealed a large pocket of pleural fluid. The site was marked and the area was prepped and draped in the usual sterile fashion. 10cc of 2% lidocaine was placed in the same area localized by ultrasound for local anesthesia. The finder needle was inserted just over the inferior rib perpendicular to the skin surface while applying suction and advanced until pleural fluid was obtained. A guidewire was then inserted through the needle, the needle was removed, a small skin incision was made and the track was dilated. A 8.3 Fr. pigtail catheter was inserted and secured in place. The patient tolerated the procedure well without complications.Post procedure chest xray showed decreased size of large pleural effusion and adequate chest tube placement.Please leave chest tube to low continuous wall suction.Alia Rubi MDWestborough State HospitalrEssex [facility] Medicine 22010-6Kjhijtuba mywgIF5784-51-29O22:03:51Procedure noteTXT1.2.840.619312.1.13.104.2.7 .2.440092|[id number] for patient dwxk01032-6Qcdutrawx noteLNNARRATIVEFormatted C-CDA narrative textUT50 Mitchell StreetZu[id number] 37CFVDTVQQVILXSFLZWHXPRQ7441-35-28 T16:03:511.2.840.361782.1.72.3.15| 1.2.840.276958.1.13.104.2.7.2.7278 [id number] [facility] 2023-09-05 14:33:39 ly6YLMJaGTSTXbEYKf9F Y+erVWI5DJJV3K nULRGJKF0YMlSfV4RQ3lP1cQPtlVYX5997 -01-22T14:33:39 [facility] Vascular Access ServicesULTRASOUND GUIDED MID-LINE PLACEMENTProcedure performed by: Teja Blunt RN on 09/05/23Patient location: [facility] 224Education provided to patient, to include pros and cons, risks versus benefits and possible complications associated with MID-LINE insertion. Questions encouraged and answered accordingly.Verbal Consent obtained from Lovely Welch due to isolation precautions.Time Out was Performed, to include procedure performed, Identity of proceduralist, and identity of procedure recipient by two identifiers, according to policy and procedure for single proceduralist procedures.An ultrasound guided, 18 ga., 10 cm. MIDLINE was then placed in the left basilic vein, in one attempt(s). Local anesthetic not used.Labs obtained: yesPatient tolerated procedure well: yesComplications: Adriana#: [id number] #: [id number]: 02/12/24 94549-9Rqlmzkqdr byxuSF0275-33-40U01:35:39Procedure noteTXT1.2.840.864681.1.13.104.2.7 .2.036703|[id number] for patient jfhn00951-0Wrtvfvqxx noteLNNARRATIVEFormatted C-CDA narrative [id number] Jimenez RN[address] Sb[id number] 85ZOZQKEWRMMDBEGVHDNWJZE1395-00-49 T14:35:391.2.840.196566.1.72.3.15| 1.2.840.036017.1.13.104.2.7.2.7278 [id number] Teja Blunt RN [facility] 2023-08-29 16:44:59 mPL9oTLxsz9g2Hd4dULR zH6D4ZKHP60neq fkQzq7UCHBpVDwZ8d/F6fm2+KhvsNy9177 -01-15T16:44:59 PROCEDURE: US Guided ThoracentesisINDICATION: large pleural effusionDESCRIPTION OF PROCEDURE:Ultrasound was used to localize the fluid. The site was marked and the area was prepped and draped in the usual sterile fashion. lidocaine was for local anesthesia. We used a standard kit to place a soft catheter in the pleural space. The catheter was attached to a collection container and fluid was removed. The patient tolerated the procedure well. The pleural fluid was sent for the appropriate studies.Post procedure chest xray complete drainage of left sided pleural effusion.COMPLICATIONS: NoneFINDINGS: 850 cc of blood tinged effusion. 72687-4Dtgpegaik ieluWK4412-18-50W14:46:16Procedure noteTXT1.2.840.003374.1.13.104.2.7 .2.920089|[id number] for patient gqbk40363-2Jelxlwqvz noteLNNARRATIVEFormatted C-CDA narrative text62 Johns [id number] 79GHKGZATPGAGTWNHEDKFOCQ2326-75-80 T16:46:161.2.840.734791.1.72.3.15| 1.2.840.553485.1.13.104.2.7.2.7278 [id number] [facility] Notes Date/Time Note Provider Source 2023-09-16 10:10:09 bjMA0H+GjARO3h+3z5jEnIbaVb++Qz6XxsxHUol2 lgcE6rY2s6jcwzK53bDW/tOG0867-58-78O51:10 :09 Ambulance arrived for transport. POC discussed ll questioned answered and destination address confirmed via Vini Saba at [address]Midline IV kept in and Hernandez catheter left in place for acute on chronic urinary retention.Discharge Summary and discharge paperwork given to EMS in packet for next facility. 07401-5Jalyq LapgNW6360-45-13I85:12:38Nurse NoteTXT1.2.840.166010.1.13.104.2.7.2.727 879|[id number] for patient zrdj91387-9JanjWLZKGNODPLDPlxpwdgyk C-CDA narrative [id number] AMJXGFIIQVANHGHUNI0903-77-91B92:12:381.2 .840.248430.1.72.3.15|1.2.840.531904.1.1 3.104.2.7.2.727879_[id number] [facility] 2023-09-16 07:29:27 upX7TqtN/YiUQvVADIUrwv9eNTqSqAcmr8R+lP5W Y82LWB+RPGwis/G6DMi2MwtT0765-19-96O90:29 :27 Called report to Too SABA at [facility]. POC discussed, all questions answered. Hernandez to stay in place, Rn asked that midline stay for transport. 04575-5Rdaeg VnedQS9664-65-07W73:30:45Nurse NoteTXT1.2.840.142023.1.13.104.2.7.2.727 879|[id number] for patient vfjd70677-8Rfprb NoteLNNARRATIVEFormatted C-CDA narrative [id number] Ellis RN[address] Gs[id number] SIFNJYUWNJCHHRNSLC6163-21-26W41:30:451.2 .840.791509.1.72.3.15|1.2.840.921985.1.1 3.104.2.7.2.727879_[id number] Graciela Ellis RN [facility] 2023-09-15 12:14:20 ZAanUCnSpaLy9Bbpc9WF88mAVu8k74NoNCb9Ngxm xlISnziMXsmLV46mNQQ6FcdA6310-78-81E76:14 :20 Problem: Respiratory Function - ImpairedGoal: Able to cough effectivelyOutcome: ResolvedGoal: Adequate oxygenationOutcome: ResolvedGoal: Adequate work of breathingOutcome: ResolvedGoal: Patent airwayOutcome: ResolvedProblem: Falls, Risk ofGoal: Absence of fallsOutcome: ResolvedProblem: PainGoal: Control of pain at or below patient's documented comfort goalOutcome: ResolvedGoal: Reduction in pain sensationOutcome: ResolvedProblem: Mobility - ImpairedGoal: Able to achieve maximum mobility levelOutcome: ResolvedProblem: Nutrition DeficitGoal: Adequate nutritional intakeOutcome: ResolvedProblem: Infection RiskGoal: Absence of infectionOutcome: Resolved 64530-3Vknq of care tzoeGE5669-33-45D64:14:23Plan of care noteTXT1.2.840.819861.1.13.104.2.7.2.727 879|[id number] for patient exvc10152-5GaskYSTAGVUBFIIDqwcdxitt C-CDA narrative [id number] S Stanly RN[address] Hl[id number] APRHKRUEEPCYXGFPGZ5540-25-95Q32:14:231.2 .840.886086.1.72.3.15|1.2.840.642403.1.1 3.104.2.7.2.727879_[id number] Robina Echevarria RN [facility] 2023-09-15 03:05:32 ZPqHkhZUDkCOp2vmkb9jcGOJUaBCKP2yT05y9B6y WOO6dCVX4u4uNbJCxekWRN0E0238-95-32G85:05 :32 Problem: Respiratory Function - ImpairedGoal: Able to cough effectivelyOutcome: Progressing as expectedGoal: Adequate oxygenationOutcome: Progressing as expectedGoal: Adequate work of breathingOutcome: Progressing as expectedGoal: Patent airwayOutcome: Progressing as expectedProblem: Falls, Risk ofGoal: Absence of fallsOutcome: Progressing as expectedProblem: PainGoal: Control of pain at or below patient's documented comfort goalOutcome: Progressing as expectedGoal: Reduction in pain sensationOutcome: Progressing as expectedProblem: Mobility - ImpairedGoal: Able to achieve maximum mobility levelOutcome: Progressing as expectedProblem: Nutrition DeficitGoal: Adequate nutritional intakeOutcome: Progressing as expectedProblem: Infection RiskGoal: Absence of infectionOutcome: Progressing as expected 30758-0Ungb of care lrlaLV6663-45-44Q97:05:39Plan of care noteTXT1.2.840.167190.1.13.104.2.7.2.727 879|[id number] for patient ypvx40410-9LlzjABFDSYRMRDKOkkgjdois C-CDA narrative [id number] Villa RNUT[id number] BIUFWFOMUYJJJAALEO5728-30-13R41:05:391.2 .840.695352.1.72.3.15|1.2.840.693479.1.1 3.104.2.7.2.727879_[id number] Sienna Villa RN [facility] 2023-09-14 13:18:00 ut3v2+rpQeDvyHCZs9LkCofdT+pidjHNj0d5Ohev vkxndM8rkCkPltbqBg+e9nu83345-70-11O24:18 :00 Administered AGLO enema using slip tip syringe and 22fr catheter and manually assisted evacuation of stool burden. Pt reported immediate relief of discomfort, and later, return of her appetite. 97007-0Jlpes UxeoWT6244-26-64T97:53:18Nurse NoteTXT1.2.840.483007.1.13.104.2.7.2.727 879|[id number] for patient hnws92355-5PrkoOSCCOEVBDUMSzlzoyoxy C-CDA narrative [id number] Grubbs RNUT[address] Ilu[id number] DMUIZIHDGOKDDOUCNW5456-14-20A94:53:181.2 .840.530414.1.72.3.15|1.2.840.705472.1.1 3.104.2.7.2.727879_[id number] Brian Griffin RN [facility] 2023-09-14 04:59:32 pLFz/rCONUOuiD3IJApr1IQQvt79kjaVaYfxoHbo yjCkE6vGEsqqZ3HlZrXu5nKc3007-76-71V13:59 :32 Problem: Respiratory Function - ImpairedGoal: Able to cough effectivelyOutcome: Progressing as expectedGoal: Adequate oxygenationOutcome: Progressing as expectedGoal: Adequate work of breathingOutcome: Progressing as expectedGoal: Patent airwayOutcome: Progressing as expectedProblem: Falls, Risk ofGoal: Absence of fallsOutcome: Progressing as expectedProblem: PainGoal: Control of pain at or below patient's documented comfort goalOutcome: Progressing as expectedGoal: Reduction in pain sensationOutcome: Progressing as expectedProblem: Mobility - ImpairedGoal: Able to achieve maximum mobility levelOutcome: Progressing as expectedProblem: Nutrition DeficitGoal: Adequate nutritional intakeOutcome: Progressing as expectedProblem: Infection RiskGoal: Absence of infectionOutcome: Progressing as expected 77210-2Zvmh of care hagpJB0870-25-55M42:59:40Plan of care noteTXT1.2.840.690846.1.13.104.2.7.2.727 879|[id number] for patient dgye63753-6PxuiWROGNLTABSLWgoxhccin C-CDA narrative yvzg570784277Cqx Aliyas RNUT[id number] TELLOPGEHDGGAFDJXQYSRDP2780-72-44S21:59:401.2 .840.923538.1.72.3.15|1.2.840.213484.1.1 3.104.2.7.2.727879_[id number] John Mariscal RN [facility] 2023-09-13 12:55:59 R3GYd5MxAkQuV52XhRTfsCIieqUkcWI9NVrKv8jR re6WjNzkygOl4GCq2Hsd+AAm9577-74-44W85:55 :59 Problem: Respiratory Function - ImpairedGoal: Able to cough effectivelyOutcome: Progressing as expectedGoal: Adequate oxygenationOutcome: Progressing as expectedGoal: Adequate work of breathingOutcome: Progressing as expectedGoal: Patent airwayOutcome: Progressing as expectedProblem: Falls, Risk ofGoal: Absence of fallsOutcome: Progressing as expectedProblem: PainGoal: Control of pain at or below patient's documented comfort goalOutcome: Progressing as expectedGoal: Reduction in pain sensationOutcome: Progressing as expectedProblem: Nutrition DeficitGoal: Adequate nutritional intakeOutcome: Progressing as expectedProblem: Infection RiskGoal: Absence of infectionOutcome: Progressing as expected 16163-4Rdpl of care xdacKG4195-54-92W54:56:02Plan of care noteTXT1.2.840.855689.1.13.104.2.7.2.727 879|[id number] for patient zqqg20134-3XmrlGLVNRCLPGVZPbjxvvsbf C-CDA narrative text[id number] TOROKGSDMWYDSHADPJPUYN8134-87-84H67:56:021.2 .840.963995.1.72.3.15|1.2.840.476389.1.1 3.104.2.7.2.727879_[id number] [facility] 2023-09-13 07:50:52 Q/up+xrl5AWaPbF0DY69C0UnxywzD3Jj+OOVuD2Q pfQxVjf1RQ56ADN5Eri9kVUS0710-92-81Y62:50 :52 Problem: Respiratory Function - ImpairedGoal: Able to cough effectivelyOutcome: Progressing as expectedGoal: Adequate oxygenationOutcome: Progressing as expectedGoal: Adequate work of breathingOutcome: Progressing as expectedGoal: Patent airwayOutcome: Progressing as expectedProblem: Falls, Risk ofGoal: Absence of fallsOutcome: Progressing as expectedProblem: PainGoal: Control of pain at or below patient's documented comfort goalOutcome: Progressing as expectedGoal: Reduction in pain sensationOutcome: Progressing as expectedProblem: Mobility - ImpairedGoal: Able to achieve maximum mobility levelOutcome: Progressing as expectedProblem: Nutrition DeficitGoal: Adequate nutritional intakeOutcome: Progressing as expectedProblem: Infection RiskGoal: Absence of infectionOutcome: Progressing as expected 68641-9Ywfg of care wtksTW3235-86-54A78:50:55Plan of care noteTXT1.2.840.003752.1.13.104.2.7.2.727 879|[id number] for patient arpy42601-9GintBRDZVGTZIIQHuzngykjg C-CDA narrative [id number] J Powell RNUT[address] Ac[id number] GNPMXKFJXJTNQYHAQU5303-20-34F03:50:551.2 .840.217694.1.72.3.15|1.2.840.151606.1.1 3.104.2.7.2.727879_[id number] Manoj Murphy RN [facility] 2023-09-12 16:12:30 J7veMO3E8JOiKeegfITktUiftFLUxmdJhP3lq7W2 XFCGMfYlOuumV0j1b+zUIUhD1114-38-17C25:12 :30 Problem: Respiratory Function - ImpairedGoal: Able to cough effectivelyOutcome: Progressing as expectedGoal: Adequate oxygenationOutcome: Progressing as expectedGoal: Adequate work of breathingOutcome: Progressing as expectedGoal: Patent airwayOutcome: Progressing as expectedProblem: Falls, Risk ofGoal: Absence of fallsOutcome: Progressing as expectedProblem: PainGoal: Control of pain at or below patient's documented comfort goalOutcome: Progressing as expectedGoal: Reduction in pain sensationOutcome: Progressing as expectedProblem: Mobility - ImpairedGoal: Able to achieve maximum mobility levelOutcome: Progressing as expectedProblem: Nutrition DeficitGoal: Adequate nutritional intakeOutcome: Progressing as expectedProblem: Infection RiskGoal: Absence of infectionOutcome: Progressing as expected 90841-2Cazr of care wwvlTZ7577-97-75H56:12:34Plan of care noteTXT1.2.840.035309.1.13.104.2.7.2.727 879|[id number] for patient eslk22778-7ErcfBZIDVHYQHOIIjptgnhrw C-CDA narrative [id number] A Deaton RN[address] Ltba[id number] IZHQWVWRZOEOVARLSS0083-26-93B89:12:341.2 .840.394003.1.72.3.15|1.2.840.237366.1.1 3.104.2.7.2.727879_[id number] Uma Montgomery RN [facility] 2023-09-12 06:00:00 jcMm3zZmGVORJte4R2PheqsKT/qWUsSdyHkopIeN ZmjOaIsEPvFG0Uc081AHil/U0919-31-47E14:00 :00 Pt stated she could not void. Bladder distended. Bladder scan for >777. Straight cath for 850cc clear yellow urine. Pericare done and purewick placed. MD notified. 51883-6Pcudv PrxgSH4255-01-57B13:45:21Nurse NoteTXT1.2.840.628834.1.13.104.2.7.2.727 879|[id number] for patient ohmf28245-2HrlgVWWFQRVBUXSSctrzvsxn C-CDA narrative fphe020531590Qiqk Reiter RN[address] VvyvO[id number] YTMJSBRNRVTVQGDYHY5027-42-55M84:45:211.2 .840.426164.1.72.3.15|1.2.840.422023.1.1 3.104.2.7.2.727879_[id number] Zeinab Moreira RN [facility] 2023-09-11 22:52:07 0PuXZCcuNmqfkPI+mFPAbTi/tTwW20AwKhwJ/Q5C SaIyBAa1qJ+7hhHhDztZ/+Rc6889-66-53X95:52 :07 Problem: Respiratory Function - ImpairedGoal: Able to cough effectivelyOutcome: Progressing as expectedGoal: Adequate oxygenationOutcome: Progressing as expectedGoal: Adequate work of breathingOutcome: Progressing as expectedGoal: Patent airwayOutcome: Progressing as expectedProblem: Falls, Risk ofGoal: Absence of fallsOutcome: Progressing as expectedProblem: PainGoal: Control of pain at or below patient's documented comfort goalOutcome: Progressing as expectedGoal: Reduction in pain sensationOutcome: Progressing as expectedProblem: Mobility - ImpairedGoal: Able to achieve maximum mobility levelOutcome: Progressing as expectedProblem: Nutrition DeficitGoal: Adequate nutritional intakeOutcome: Progressing as expectedProblem: Infection RiskGoal: Absence of infectionOutcome: Progressing as expected 69522-3Lsjb of care sreqNE8542-86-77L87:52:16Plan of care noteTXT1.2.840.938762.1.13.104.2.7.2.727 879|[id number] for patient bpob25532-2OhpfVCXEFHVFZQGJvbcgebgi C-CDA narrative text[address] StreetTj[id number] RHBKWXXOVOWVWKOXTU0683-53-67R16:52:161.2 .840.456616.1.72.3.15|1.2.840.102788.1.1 3.104.2.7.2.727879_[id number] [facility] 2023-09-11 21:00:00 AhJ1n1zrajhPOZvhgrdPajnp4tEUqBhXD5nFYOa+ b7F28oAz4cq6HTTwYgwYjnpB4526-34-27F35:00 :00 Left eye covered with gauze. Sclera red. Son states no change from previous assessment. Pt denies vision changes. Pt with some dryness and clear discharge. Cleansed eyes with NS and recovered. 42817-1Xpkov WgtnZM2035-57-69Z56:42:20Nurse NoteTXT1.2.840.496053.1.13.104.2.7.2.727 879|[id number] for patient dhuw21651-0BebtVJURSBDMIEDXohlgnvcj C-CDA narrative text[id number] SORENSENKPDTXDALIIKDPLYDXV8583-40-61I06:42:201.2 .840.332213.1.72.3.15|1.2.840.371848.1.1 3.104.2.7.2.727879_[id number] [facility] 2023-09-10 23:38:34 YFdUW602kTC5JHGjNCXzriuSVfExo0+FdBPdk4t/ Ivq8bp2ugZViAM0/BWeU14nz1006-90-82D80:38 :34 Problem: Respiratory Function - ImpairedGoal: Able to cough effectivelyOutcome: Progressing as expectedGoal: Adequate oxygenationOutcome: Progressing as expectedGoal: Adequate work of breathingOutcome: Progressing as expectedGoal: Patent airwayOutcome: Progressing as expectedProblem: Falls, Risk ofGoal: Absence of fallsOutcome: Progressing as expectedProblem: PainGoal: Control of pain at or below patient's documented comfort goalOutcome: Progressing as expectedGoal: Reduction in pain sensationOutcome: Progressing as expectedProblem: Mobility - ImpairedGoal: Able to achieve maximum mobility levelOutcome: Progressing as expectedProblem: Nutrition DeficitGoal: Adequate nutritional intakeOutcome: Progressing as expectedProblem: Infection RiskGoal: Absence of infectionOutcome: Progressing as expected 20290-3Iotq of care tnphVB6120-30-20U47:40:43Plan of care noteTXT1.2.840.606218.1.13.104.2.7.2.727 879|[id number] for patient dvyp73955-4FdkgCFPFAOOEXPIJoowdiank C-CDA narrative text[id number] XEWVTAKOJCDOCXOZLF3642-02-79K39:40:431.2 .840.651361.1.72.3.15|1.2.840.132692.1.1 3.104.2.7.2.727879_[id number] [facility] 2023-09-10 07:44:01 POG9zChEBHijWA9zY6bobdyAQbEWuqJYl1wMIanb Wst3FoeZDzDrHLRKl6qFsbLR7245-50-33S65:44 :01 Problem: Respiratory Function - ImpairedGoal: Able to cough effectivelyOutcome: Progressing as expectedGoal: Adequate oxygenationOutcome: Progressing as expectedGoal: Adequate work of breathingOutcome: Progressing as expectedGoal: Patent airwayOutcome: Progressing as expectedProblem: Falls, Risk ofGoal: Absence of fallsOutcome: Progressing as expectedProblem: PainGoal: Control of pain at or below patient's documented comfort goalOutcome: Progressing as expectedGoal: Reduction in pain sensationOutcome: Progressing as expectedProblem: Mobility - ImpairedGoal: Able to achieve maximum mobility levelOutcome: Progressing as expectedProblem: Nutrition DeficitGoal: Adequate nutritional intakeOutcome: Progressing as expectedProblem: Infection RiskGoal: Absence of infectionOutcome: Progressing as expected 56368-9Ijqy of care xpwqKP0662-72-68I88:44:04Plan of care noteTXT1.2.840.335382.1.13.104.2.7.2.727 879|4511831029GDKmjnywxku for patient imuf00736-1NrhlJRNJZYQAMIAKzzmccmfi C-CDA narrative [id number] Robledo RNUT[address] PvuqB[id number] MMNDQLOEGHZFJPFFLX2691-56-51F10:44:041.2 .840.368582.1.72.3.15|1.2.840.554522.1.1 3.104.2.7.2.727879_[id number] Binta PowellCain SANDRA [facility] 2023-09-09 23:22:02 ZbfGToav0S9/NRIptSsavAd+/6/ykRfBzvAVJ0+K +T7gjks1vaL75lK+bNJ0DTQ96378-01-30H88:22 :02 Problem: Respiratory Function - ImpairedGoal: Able to cough effectivelyOutcome: Progressing as expectedGoal: Adequate oxygenationOutcome: Progressing as expectedGoal: Adequate work of breathingOutcome: Progressing as expectedGoal: Patent airwayOutcome: Progressing as expectedProblem: Falls, Risk ofGoal: Absence of fallsOutcome: Progressing as expectedProblem: PainGoal: Control of pain at or below patient's documented comfort goalOutcome: Progressing as expectedGoal: Reduction in pain sensationOutcome: Progressing as expectedProblem: Mobility - ImpairedGoal: Able to achieve maximum mobility levelOutcome: Progressing as expectedProblem: Nutrition DeficitGoal: Adequate nutritional intakeOutcome: Progressing as expectedProblem: Infection RiskGoal: Absence of infectionOutcome: Progressing as expected 69556-0Hmqn of care jckiSL6148-77-26Y84:22:11Plan of care noteTXT1.2.840.874156.1.13.104.2.7.2.727 879|4605508939YNFglpkvqno for patient uksp81504-9PjnlTCXPDXWMFWGNxfbbwfpq C-CDA narrative textMELANI[address] RchiR[id number] LJHXXAKTGOWSTYESUS9902-60-41D92:22:111.2 .840.992686.1.72.3.15|1.2.840.358854.1.1 3.104.2.7.2.727879_[id number] [facility] 2023-09-09 11:37:00 8iypU8F3c4TegSmX06yg6j7IY5eXUpcYha6lqa+u cLyczIsodtOPj8KyrzByFKTG2989-00-24L66:37 :00 Problem: Respiratory Function - ImpairedGoal: Able to cough effectivelyOutcome: Progressing as expectedGoal: Adequate oxygenationOutcome: Progressing as expectedGoal: Adequate work of breathingOutcome: Progressing as expectedGoal: Patent airwayOutcome: Progressing as expectedProblem: Falls, Risk ofGoal: Absence of fallsOutcome: Progressing as expectedProblem: PainGoal: Control of pain at or below patient's documented comfort goalOutcome: Progressing as expectedGoal: Reduction in pain sensationOutcome: Progressing as expectedProblem: Mobility - ImpairedGoal: Able to achieve maximum mobility levelOutcome: Progressing as expectedProblem: Nutrition DeficitGoal: Adequate nutritional intakeOutcome: Progressing as expectedProblem: Infection RiskGoal: Absence of infectionOutcome: Progressing as expectedProblem: PainGoal: Control of pain at or below patient's documented comfort goalOutcome: Progressing as expectedProblem: Mobility - ImpairedGoal: Able to achieve maximum mobility levelOutcome: Progressing as expectedProblem: Nutrition DeficitGoal: Adequate nutritional intakeOutcome: Progressing as expectedProblem: Infection RiskGoal: Absence of infectionOutcome: Progressing as expected 40656-0Ujly of care uulyLU2947-36-66T73:37:22Plan of care noteTXT1.2.840.099450.1.13.104.2.7.2.727 879|1098129809HNPkxocsmkv for patient nsky84442-9OnneIICPUBYWBYJAiiijmgub C-CDA narrative textUT[address] MdomY[id number] ECPSLOLYCTVGXGGFDN4674-75-24Z98:37:221.2 .840.428888.1.72.3.15|1.2.840.978892.1.1 3.104.2.7.2.727879_[id number] [facility] 2023-09-09 01:13:14 yAKTAqP09eObN4ctoviJOayqujtyhaLtkusAbEtR 4yDmBY2ao5YT0zz5NIr0rKnZ5527-72-27A82:13 :14 Problem: Respiratory Function - ImpairedGoal: Able to cough effectivelyOutcome: Progressing as expectedGoal: Adequate oxygenationOutcome: Progressing as expectedGoal: Adequate work of breathingOutcome: Progressing as expectedGoal: Patent airwayOutcome: Progressing as expectedProblem: Falls, Risk ofGoal: Absence of fallsOutcome: Progressing as expectedProblem: PainGoal: Control of pain at or below patient's documented comfort goalOutcome: Progressing as expectedGoal: Reduction in pain sensationOutcome: Progressing as expectedProblem: Mobility - ImpairedGoal: Able to achieve maximum mobility levelOutcome: Progressing as expectedProblem: Nutrition DeficitGoal: Adequate nutritional intakeOutcome: Progressing as expectedProblem: Infection RiskGoal: Absence of infectionOutcome: Progressing as expected 01716-9Wxpm of care vhbpON6681-16-05H73:13:28Plan of care noteTXT1.2.840.518661.1.13.104.2.7.2.727 879|6771935365ATQqrzedyxi for patient dbcl42039-9RmwhWEUAUCGXPCHPiodcomhc C-CDA narrative text[address] XsviQdgwmzivxQojyjyuifGLPA3237383073FPWU KCORYJHEPQSBYTSMOE3275-25-02T98:13:281.2 .840.732117.1.72.3.15|1.2.840.885910.1.1 3.104.2.7.2.727879_[id number] [facility] 2023-09-07 12:22:57 M7gB8yYc1T/oFYwlrKZTP7aIRVSsSI9R4df4dP9p r5voLckTE2psdiAzzj/8xMv15836-53-05U52:22 :57 Problem: Respiratory Function - ImpairedGoal: Able to cough effectivelyOutcome: Progressing as expectedGoal: Adequate oxygenationOutcome: Progressing as expectedGoal: Adequate work of breathingOutcome: Progressing as expectedGoal: Patent airwayOutcome: Progressing as expectedProblem: Falls, Risk ofGoal: Absence of fallsOutcome: Progressing as expectedProblem: PainGoal: Control of pain at or below patient's documented comfort goalOutcome: Progressing as expectedGoal: Reduction in pain sensationOutcome: Progressing as expectedProblem: Mobility - ImpairedGoal: Able to achieve maximum mobility levelOutcome: Progressing as expectedProblem: Nutrition DeficitGoal: Adequate nutritional intakeOutcome: Progressing as expectedProblem: Infection RiskGoal: Absence of infectionOutcome: Progressing as expected 65117-9Iypq of care jdroBT0225-08-02Q97:23:00Plan of care noteTXT1.2.840.032458.1.13.104.2.7.2.727 879|4986127775VCQnbsqaxmi for patient fbej77191-0PvchNBERWUCCAJLRzdbdhitg C-CDA narrative textUT50 [address] StreetHbnnT[id number] JNXLICXIUMOCSFJYVR1459-02-36G59:23:001.2 .840.176653.1.72.3.15|1.2.840.482389.1.1 3.104.2.7.2.727879_[id number] [facility] 2023-09-06 11:33:44 cO/E9K0jPaYwDgyVvdgTrtyDkGdBgsuQ/fUtiZWC NhYddK5MqP2DEkBIHnLRdvlp9337-22-37J55:33 :44 Problem: Respiratory Function - ImpairedGoal: Able to cough effectivelyOutcome: Progressing as expectedGoal: Adequate oxygenationOutcome: Progressing as expectedGoal: Adequate work of breathingOutcome: Progressing as expectedGoal: Patent airwayOutcome: Progressing as expectedProblem: Falls, Risk ofGoal: Absence of fallsOutcome: Progressing as expectedProblem: PainGoal: Control of pain at or below patient's documented comfort goalOutcome: Progressing as expectedGoal: Reduction in pain sensationOutcome: Progressing as expectedProblem: Mobility - ImpairedGoal: Able to achieve maximum mobility levelOutcome: Progressing as expectedProblem: Nutrition DeficitGoal: Adequate nutritional intakeOutcome: Progressing as expectedProblem: Infection RiskGoal: Absence of infectionOutcome: Progressing as expected 48739-7Bwvs of care ekfsSL3622-61-25N11:33:46Plan of care noteTXT1.2.840.884788.1.13.104.2.7.2.727 879|7580144637ANFbllcggms for patient vhlp95754-5ZdkwMBTDTRLAGFCXdmkjdmbx C-CDA narrative text[address] Kw[id number] RGOECKDXUCZZEGUNLD8662-92-59N86:33:461.2 .840.096937.1.72.3.15|1.2.840.435536.1.1 3.104.2.7.2.727879_[id number] [facility] 2023-09-05 22:09:54 Mr/jTzKloLn4xkej7EsTyBcKXlRosRD7oy9C4aiU lY7i6bmWuydHzdv5/F/8k/929339-47-93P69:09 :54 Problem: Respiratory Function - ImpairedGoal: Able to cough effectivelyOutcome: Progressing as expectedGoal: Adequate oxygenationOutcome: Progressing as expectedGoal: Adequate work of breathingOutcome: Progressing as expectedGoal: Patent airwayOutcome: Progressing as expectedProblem: Falls, Risk ofGoal: Absence of fallsOutcome: Progressing as expectedProblem: PainGoal: Control of pain at or below patient's documented comfort goalOutcome: Progressing as expectedGoal: Reduction in pain sensationOutcome: Progressing as expectedProblem: Mobility - ImpairedGoal: Able to achieve maximum mobility levelOutcome: Progressing as expectedProblem: Nutrition DeficitGoal: Adequate nutritional intakeOutcome: Progressing as expectedProblem: Infection RiskGoal: Absence of infectionOutcome: Progressing as expected 97564-8Fwle of care mkkjKV7784-37-29H33:10:03Plan of care [id number] 879|[id number] for patient grgu84460-7KsdpSOUJKRDRMAKDfvzahjlw C-CDA narrative text[address] [id number] MLNBGQCRCWRDKAGNHK1248-74-78D76:10:031.2 .840.608893.1.72.3.15|1.2.840.575855.1.1 [id number] [facility] 2023-09-05 16:28:48 5h/9naAUJz7ut8hnDe2608tu0ZGZjNqEoBYWFEls ybGQjL+pFCNDqXmKyzJ10HDV0116-79-46G26:28 :48 Problem: Respiratory Function - ImpairedGoal: Able to cough effectivelyOutcome: Progressing as expectedGoal: Adequate oxygenationOutcome: Progressing as expectedGoal: Adequate work of breathingOutcome: Progressing as expectedGoal: Patent airwayOutcome: Progressing as expectedProblem: Falls, Risk ofGoal: Absence of fallsOutcome: Progressing as expectedProblem: PainGoal: Control of pain at or below patient's documented comfort goalOutcome: Progressing as expectedGoal: Reduction in pain sensationOutcome: Progressing as expectedProblem: Mobility - ImpairedGoal: Able to achieve maximum mobility levelOutcome: Progressing as expectedProblem: Nutrition DeficitGoal: Adequate nutritional intakeOutcome: Progressing as expectedProblem: Infection RiskGoal: Absence of infectionOutcome: Progressing as expected 39073-3Cnrs of care zfbwEE4634-57-83J63:28:51Plan of care noteTXT1.2.840.285771.1.13.104.2.7.2.727 879|[id number] for patient vfle66374-0DujfJZJDNAHVIMBRijaqnhdn C-CDA narrative text[id number] WXFEILMTAUQCAOLCCW4730-85-10Z23:28:511.2 .840.180390.1.72.3.15|1.2.840.951179.1.1 3.104.2.7.2.727879_[id number] [facility] 2023-09-05 02:46:11 4gJw6d5PjaWe555UqNPctzSvGD2l9SjoonYZ7Xhf ev9dW6dJHeP5GE2E73Vu+at26328-65-03X45:46 :11 0200: 80cc uop since beginning of shift till now, bladder scanner zero, flushed hernandez with 50cc, no clots no sediments, draining well and got the same amount of clear to light yellow fluid as flushback, pt on D5LR 60cc/hr but endorses decreased water and food intake for the whole day, MD aware, no new orders. 76495-6Xogbh RejvMT1270-31-94H16:52:33Nurse NoteTXT1.2.840.579393.1.13.104.2.7.2.727 879|[id number] for patient bzxv08937-4AnzeAPJYZWISFFUSbinpornr C-CDA narrative [id number] Pastor RNUT[address] [id number] OJQPUOZCVXDMAYUWLI0913-89-07Z28:52:331.2 .840.981788.1.72.3.15|1.2.840.669069.1.1 3.104.2.7.2.727879_[id number] Amanda Pastor RN [facility] 2023-09-05 00:01:42 6wUQYdBdNFnW04gDTh9sCa3dpl/qVxQB7LE/W5t+ hZFk4oqoYSeZk+bxXBR7vV149102-91-87S11:01 :42 Problem: Respiratory Function - ImpairedGoal: Able to cough effectivelyOutcome: Progressing as expectedGoal: Adequate oxygenationOutcome: Progressing as expectedGoal: Adequate work of breathingOutcome: Progressing as expectedGoal: Patent airwayOutcome: Progressing as expectedProblem: PainGoal: Control of pain at or below patient's documented comfort goalOutcome: Progressing as expectedGoal: Reduction in pain sensationOutcome: Progressing as expectedProblem: Falls, Risk ofGoal: Absence of fallsOutcome: Progressing as expectedProblem: Mobility - ImpairedGoal: Able to achieve maximum mobility levelOutcome: Progressing as expectedProblem: Nutrition DeficitGoal: Adequate nutritional intakeOutcome: Progressing as expected 76999-8Dzxw of care tklfDK5767-91-13E29:01:51Plan of care noteTXT1.2.840.319501.1.13.104.2.7.2.727 879|[id number] for patient jhgt25213-6JvgtZSRJMOXSRFVTzdkdiwlb C-CDA narrative text[id number] TELLODEDRTRRQAJUDHZLHWW4914-77-01Y66:01:511.2 .840.973186.1.72.3.15|1.2.840.783253.1.1 3.104.2.7.2.727879_[id number] [facility] 2023-09-04 11:07:04 BjrFt4gl0obF9k3eyQvp5bcqU96iNgeazbVgglUP WFAjM2xgv1nGfc8F0KQn9jo34615-90-89Q53:07 :04 Problem: Respiratory Function - ImpairedGoal: Able to cough effectivelyOutcome: Progressing as expectedGoal: Adequate oxygenationOutcome: Progressing as expectedGoal: Adequate work of breathingOutcome: Progressing as expectedGoal: Patent airwayOutcome: Progressing as expectedProblem: Falls, Risk ofGoal: Absence of fallsOutcome: Progressing as expectedProblem: PainGoal: Control of pain at or below patient's documented comfort goalOutcome: Progressing as expectedGoal: Reduction in pain sensationOutcome: Progressing as expectedProblem: Mobility - ImpairedGoal: Able to achieve maximum mobility levelOutcome: Progressing as expectedProblem: Nutrition DeficitGoal: Adequate nutritional intakeOutcome: Progressing as expectedProblem: Infection RiskGoal: Absence of infectionOutcome: Progressing as expected 44805-2[facility] wmxsAW1053-87-45U84:07:07Plan of care noteTXT1.2.840.178839.1.13.104.2.7.2.727 879|[id number] for patient maci88053-2LihbZPWYZMTHZISFbcysfqxf C-CDA narrative text[id number] FERREIRAALFIOXUMLMQIHKBHGH4562-21-55V10:07:071.2 .840.536590.1.72.3.15|1.2.840.859850.1.1 3.104.2.7.2.727879_[id number] [facility] 2023-09-04 01:24:53 N/2HTKSg7zZmV3UCBRtmpavuWeUIfDt9agwFrV64 MTz4ooYT387i0k+s1tYai9ZQ5124-71-40O83:24 :53 Problem: Respiratory Function - ImpairedGoal: Able to cough effectivelyOutcome: Progressing as expectedGoal: Adequate oxygenationOutcome: Progressing as expectedGoal: Adequate work of breathingOutcome: Progressing as expectedGoal: Patent airwayOutcome: Progressing as expectedProblem: Falls, Risk ofGoal: Absence of fallsOutcome: Progressing as expectedProblem: PainGoal: Control of pain at or below patient's documented comfort goalOutcome: Progressing as expectedGoal: Reduction in pain sensationOutcome: Progressing as expectedProblem: Mobility - ImpairedGoal: Able to achieve maximum mobility levelOutcome: Progressing as expectedProblem: Nutrition DeficitGoal: Adequate nutritional intakeOutcome: Progressing as expectedProblem: Infection RiskGoal: Absence of infectionOutcome: Progressing as expected 37112-8Sgxz of care pzyoHV3910-20-97B01:25:02Plan of care noteTXT1.2.840.177778.1.13.104.2.7.2.727 879|[id number] for patient rozz74087-6TrijHUOBHKQLYCCRotptdgcd C-CDA narrative bdjj303917628Lxtwjwgc J Perez RNUT[address] Bytz[id number] XVCNVNPDKKZMXRSTAJ6949-27-99G80:25:021.2 .840.165248.1.72.3.15|1.2.840.179883.1.1 3.104.2.7.2.727879_[id number] Robert Mccormick RN [facility] 2023-09-03 10:05:03 idiA9yJvpk42ooC5iSGAPDTwtvpGasJ8m40hcKkY 3r0RSuk3iuqxwL7zOYhBKm745091-91-23J81:05 :03 Problem: Respiratory Function - ImpairedGoal: Able to cough effectivelyOutcome: Progressing as expectedGoal: Adequate oxygenationOutcome: Progressing as expectedGoal: Adequate work of breathingOutcome: Progressing as expectedGoal: Patent airwayOutcome: Progressing as expectedProblem: Falls, Risk ofGoal: Absence of fallsOutcome: Progressing as expectedProblem: PainGoal: Control of pain at or below patient's documented comfort goalOutcome: Progressing as expectedGoal: Reduction in pain sensationOutcome: Progressing as expectedProblem: Mobility - ImpairedGoal: Able to achieve maximum mobility levelOutcome: Progressing as expectedProblem: Nutrition DeficitGoal: Adequate nutritional intakeOutcome: Progressing as expectedProblem: Infection RiskGoal: Absence of infectionOutcome: Progressing as expected 27385-1Tdhw of care ubglSA8197-94-63E15:05:13Plan of care noteTXT1.2.840.047413.1.13.104.2.7.2.727 879|[id number] for patient qtjz42460-0YllzHFMXEYGKWPAEtfyptbgo C-CDA narrative textUT[address] Nrr[id number] VUNKGXHSFBFKAUXWAP5560-76-30F83:05:131.2 .840.629312.1.72.3.15|1.2.840.534173.1.1 3.104.2.7.2.727879_[id number] [facility] 2023-09-03 02:15:00 VMfqm/Zqv9oKV/qXIdS1pi4Vj9OEDDMpTW5JtciU keVthbwBp68L450jwAKAlVjU0941-45-58R11:15 :00 2 warm blankets placed over patient as temperature from hernandez probe is low. Educated patient and son on reasons why. CN made aware of the same. Will continue to monitor. 15488-7Ztrvt UhgaRO9036-38-70J38:18:18Nurse NoteTXT1.2.840.360577.1.13.104.2.7.2.727 879|[id number] for patient dwgx83058-5YiwgLPYLYGCUKNJZevuftvqv C-CDA narrative [id number] D Ramos RNUT[id number] SSYPZTRFCDSKGEHSXR5804-86-91D84:18:181.2 .840.941030.1.72.3.15|1.2.840.711937.1.1 3.104.2.7.2.727879_[id number] Nneka Brennan RN [facility] 2023-09-02 23:05:38 RoRFiwLNyGVXgYHRoqzhCzfxYnHtYIaB1Knu/dD+ SZRByFDqLqhsjttK15mkOas14317-62-30U19:05 :38 Problem: Respiratory Function - ImpairedGoal: Able to cough effectivelyOutcome: Progressing as expectedGoal: Adequate oxygenationOutcome: Progressing as expectedGoal: Adequate work of breathingOutcome: Progressing as expectedGoal: Patent airwayOutcome: Progressing as expectedProblem: Falls, Risk ofGoal: Absence of fallsOutcome: Progressing as expectedProblem: PainGoal: Control of pain at or below patient's documented comfort goalOutcome: Progressing as expectedGoal: Reduction in pain sensationOutcome: Progressing as expectedProblem: Mobility - ImpairedGoal: Able to achieve maximum mobility levelOutcome: Progressing as expectedProblem: Nutrition DeficitGoal: Adequate nutritional intakeOutcome: Progressing as expectedProblem: Infection RiskGoal: Absence of infectionOutcome: Progressing as expected 62433-3Quky of care ghzwBN5907-05-71L41:05:44Plan of care noteTXT1.2.840.010824.1.13.104.2.7.2.727 879|[id number] for patient kuow56855-5KcnqOXPRILDGVHCCccsnayrv C-CDA narrative [address]Rs[id number] AEJPGEOCIWNMGPINIA5369-76-10U03:05:441.2 .840.740759.1.72.3.15|1.2.840.868287.1.1 3.104.2.7.2.727879_[id number] [facility] 2023-09-02 23:00:00 0WThg52CIeIWgfrocZeMkORf91P0u1irO3QYiO0+ WQcjcsnHUPUOTDogyFaPxQKi3707-86-73T60:00 :00 Patient was feeling warm and does not want a lot of covers on her. Hernandez catheter attached to temperature probe. 09613-9Xonou EcemGN0905-03-13L74:16:48Nurse NoteTXT1.2.840.895722.1.13.104.2.7.2.727 879|[id number] for patient kqyk72295-3PzzsSNHAXBZPMBYCwtvpyozd C-CDA narrative text[id number] SANTIAGOHWWZSFCSTEZGNIXIPS9651-49-70T08:16:481.2 .840.773589.1.72.3.15|1.2.840.488927.1.1 3.104.2.7.2.727879_[id number] [facility] 2023-09-02 12:16:01 YvFJYBPPDbnDb3JwC6S4gXvZmQYumv5ra9TGtfNO 8IhiDGUYyXehsZQvZ281nAZ44144-53-80X62:16 :01 Problem: Respiratory Function - ImpairedGoal: Able to cough effectivelyOutcome: Progressing as expectedGoal: Adequate oxygenationOutcome: Progressing as expectedGoal: Adequate work of breathingOutcome: Progressing as expectedGoal: Patent airwayOutcome: Progressing as expectedProblem: Falls, Risk ofGoal: Absence of fallsOutcome: Progressing as expectedProblem: PainGoal: Control of pain at or below patient's documented comfort goalOutcome: Progressing as expectedGoal: Reduction in pain sensationOutcome: Progressing as expectedProblem: Mobility - ImpairedGoal: Able to achieve maximum mobility levelOutcome: Progressing as expectedProblem: Nutrition DeficitGoal: Adequate nutritional intakeOutcome: Progressing as expectedProblem: Infection RiskGoal: Absence of infectionOutcome: Progressing as expected 45367-0Kooz of care tzahDU6089-30-62A67:16:03Plan of care noteTXT1.2.840.273845.1.13.104.2.7.2.727 879|[id number] for patient mkxg44412-3BaujBWVSQTFFGOUNaatmummt C-CDA narrative [id number] SORENSENOFQPWPFVUDBSHPKVZS1156-94-42E23:16:031.2 .840.132723.1.72.3.15|1.2.840.827333.1.1 3.104.2.7.2.727879_[id number] [facility] 2023-09-02 11:55:16 wnP6KyIbTa04bN/I3pZqcdcTp8XB8kbnzdsZirEO ucnnCp3RlDTQcfb1p4NcQq6g3927-96-44H69:55 :[address] abdomen to r/o bleeding d/t increasing bruising on abdomen. PEr DR. Pendleton pause heparin until CT read. COA contacted and willl escalate read; stat hgb sent by primary rn diane. DR. Han with cardiology messaged to notify heparin gtt on hold for time being.MELLY PAGE RN 09/02/2023 11:57 AM 33465-0Clhgi IvodAE7387-10-80H89:57:40Nurse NoteTXT1.2.840.157370.1.13.104.2.7.2.727 879|[id number] for patient kgdg25572-3TpriKNWEPONZZVWEtqljozsx C-CDA narrative gjju842366320WlqodeMelly Page RN[id number] RTOWQVLBPVMZKOPMJO4319-27-21U81:57:401.2 .840.733859.1.72.3.15|1.2.840.266897.1.1 3.104.2.7.2.727879_[id number] Melly Page RN [facility] 2023-09-01 10:00:00 30BilF6qMHex05fBcVddgJ/uFqI62s7T4pqp/gR0 4rFzhXUmMkFyuIhPN9mXSkNR1197-58-97M71:00 :00 Problem: Respiratory Function - ImpairedGoal: Able to cough effectivelyOutcome: Progressing as expectedGoal: Adequate oxygenationOutcome: Progressing as expectedGoal: Adequate work of breathingOutcome: Progressing as expectedGoal: Patent airwayOutcome: Progressing as expectedProblem: Falls, Risk ofGoal: Absence of fallsOutcome: Progressing as expectedProblem: PainGoal: Control of pain at or below patient's documented comfort goalOutcome: Progressing as expectedGoal: Reduction in pain sensationOutcome: Progressing as expectedProblem: Mobility - ImpairedGoal: Able to achieve maximum mobility levelOutcome: Progressing as expected 67643-6Fmcz of care elfgKS9243-39-90X61:12:11Plan of care noteTXT1.2.840.861612.1.13.104.2.7.2.727 879|[id number] for patient dyhl40172-0RdlwJKWTAUQIXTIIrmrlselm C-CDA narrative text[address] TckwFbjegmngpRyyfnqsntWFVU2742290378FXSI WGCRIOGLCLYYPNUJKX6487-87-70S66:12:111.2 .840.748494.1.72.3.15|1.2.840.596602.1.1 3.104.2.7.2.727879_[id number] [facility] 2023-09-01 06:49:51 4q5c02H6pCwcy+viX21mTQzmeRDSMmYxejubh6Cx xii/geVKLkrSwBYzm4b5R39521-54-82I44:49 :51 Problem: Respiratory Function - ImpairedGoal: Adequate oxygenationOutcome: Progressing as expectedGoal: Adequate work of breathingOutcome: Progressing as expectedGoal: Patent airwayOutcome: Progressing as expectedProblem: Falls, Risk ofGoal: Absence of fallsOutcome: Progressing as expectedProblem: PainGoal: Control of pain at or below patient's documented comfort goalOutcome: Progressing as expectedGoal: Reduction in pain sensationOutcome: Progressing as expectedProblem: Mobility - ImpairedGoal: Able to achieve maximum mobility levelOutcome: Progressing as expectedProblem: Nutrition DeficitGoal: Adequate nutritional intakeOutcome: Progressing as expectedProblem: Infection RiskGoal: Absence of infectionOutcome: Progressing as expectedProblem: Respiratory Function - ImpairedGoal: Able to cough effectivelyOutcome: Not progressing as expected 57450-0Vlnl of care ntgfPV8287-18-66W40:49:56Plan of care noteTXT1.2.840.030037.1.13.104.2.7.2.727 879|5257950206UTQmammphmu for patient ggdw14937-7OpecRVUTDARVRWNXmxxtxjpt C-CDA narrative fcnq176538118Pczedu R Puckitt RN[id number] RYXWMKSIXFQEDIZWNH3502-82-10N93:49:561.2 .840.260639.1.72.3.15|1.2.840.673999.1.1 3.104.2.7.2.727879_[id number] Farzad Irving RN [facility] 2023-08-31 19:44:53 TLmtcuTKS4v3jdR0f5RMD0ft+OtyfiKpCb8h3VPc 59+avQmOXOfFL80U21TcGzTA9480-01-57D75:44 :53 Problem: Respiratory Function - ImpairedGoal: Able to cough effectivelyOutcome: Progressing as expectedGoal: Adequate oxygenationOutcome: Progressing as expectedGoal: Adequate work of breathingOutcome: Progressing as expectedGoal: Patent airwayOutcome: Progressing as expectedProblem: PainGoal: Control of pain at or below patient's documented comfort goalOutcome: Progressing as expectedGoal: Reduction in pain sensationOutcome: Progressing as expectedProblem: Nutrition DeficitGoal: Adequate nutritional intakeOutcome: Progressing as expectedProblem: Infection RiskGoal: Absence of infectionOutcome: Progressing as expected 65361-4Iycd of care nzlbOL4293-02-81L11:44:55Plan of care noteTXT1.2.840.235821.1.13.104.2.7.2.727 879|7187384340QXRvpcybflq for patient ucmi62176-3OzpkIYJJSJNNOSLZxduvbsxk C-CDA narrative text[address] Vi[id number] NLIIWZNNSMUEDZZOOF5812-56-86J11:44:551.2 .840.490075.1.72.3.15|1.2.840.112946.1.1 3.104.2.7.2.727879_[id number] [facility] 2023-08-30 21:07:47 ceneMM8N9BP1sEanPoEGJyohsv1dZhPCru2Cbuyu Z1blMF/YdTyFgs1z1n832Wfn5583-27-16A25:07 :47 Problem: Respiratory Function - ImpairedGoal: Able to cough effectivelyOutcome: Progressing as expectedGoal: Adequate oxygenationOutcome: Progressing as expectedGoal: Adequate work of breathingOutcome: Progressing as expectedGoal: Patent airwayOutcome: Progressing as expectedProblem: Falls, Risk ofGoal: Absence of fallsOutcome: Progressing as expectedProblem: PainGoal: Control of pain at or below patient's documented comfort goalOutcome: Progressing as expectedGoal: Reduction in pain sensationOutcome: Progressing as expectedProblem: Mobility - ImpairedGoal: Able to achieve maximum mobility levelOutcome: Progressing as expectedProblem: Nutrition DeficitGoal: Adequate nutritional intakeOutcome: Progressing as expectedProblem: Infection RiskGoal: Absence of infectionOutcome: Progressing as expected 92861-0Ljjc of care jfpvIZ6364-54-97G50:07:49Plan of care noteTXT1.2.840.692634.1.13.104.2.7.2.727 879|3839479277ZQEahcyrypu for patient skjh57715-0FdkjLTRCHRVOSBMUjtrimsfd C-CDA narrative [id number] N Do RN[address] Cl[id number] IEMPBBAVUVWOFGUSPY7657-46-03A92:07:491.2 .840.077514.1.72.3.15|1.2.840.787554.1.1 3.104.2.7.2.727879_[id number] Juan Chan Do, RN [facility] 2023-08-30 11:04:55 9aAdqfLlpZ3u3xfkAcYiFZxMoHg9KYlIfnmHHYw6 cPnOTIo/X/XJl2+CQqBRLPKS7593-88-45T29:04 :55 Problem: Respiratory Function - ImpairedGoal: Able to cough effectivelyOutcome: Progressing as expectedGoal: Adequate oxygenationOutcome: Progressing as expectedGoal: Adequate work of breathingOutcome: Progressing as expectedGoal: Patent airwayOutcome: Progressing as expectedProblem: Falls, Risk ofGoal: Absence of fallsOutcome: Progressing as expectedProblem: PainGoal: Control of pain at or below patient's documented comfort goalOutcome: Progressing as expectedGoal: Reduction in pain sensationOutcome: Progressing as expectedProblem: Mobility - ImpairedGoal: Able to achieve maximum mobility levelOutcome: Progressing as expectedProblem: Nutrition DeficitGoal: Adequate nutritional intakeOutcome: Progressing as expectedProblem: Infection RiskGoal: Absence of infectionOutcome: Progressing as expected 08087-6Gdxk of care aeokQW2443-28-61H02:04:55Plan of care noteTXT1.2.840.397709.1.13.104.2.7.2.727 879|1652234283DYVwfawdkzc for patient loyr85190-3EjqkLQFRTKKJBYRCpuuieyof C-CDA narrative textUT[address] Ukk[id number] YOHTXGVQTSLYSXTSBG2023-42-73C96:04:551.2 .840.680029.1.72.3.15|1.2.840.321782.1.1 3.104.2.7.2.727879_[id number] [facility] 2023-08-30 00:18:10 5h3lLLu+JRzX0k3g8B4BrfWEgf1MMY81xmcda2k5 S0+UmkUd8z0gqBH+8/nubx/e4146-16-99R03:18 :10 Problem: Respiratory Function - ImpairedGoal: Able to cough effectivelyOutcome: Progressing as expectedGoal: Adequate oxygenationOutcome: Progressing as expectedGoal: Adequate work of breathingOutcome: Progressing as expectedGoal: Patent airwayOutcome: Progressing as expectedProblem: Falls, Risk ofGoal: Absence of fallsOutcome: Progressing as expectedProblem: PainGoal: Reduction in pain sensationOutcome: Progressing as expectedProblem: Nutrition DeficitGoal: Adequate nutritional intakeOutcome: Progressing as expectedProblem: Infection RiskGoal: Absence of infectionOutcome: Progressing as expectedProblem: PainGoal: Control of pain at or below patient's documented comfort goalOutcome: Not progressing as expectedNote: Addressed her pain goals if pain is not relieved and alternative treatments to pharmacological measures. Notified Dr. Lopes of patients new acute pain and received new orders for morphine ivp..Problem: Mobility - ImpairedGoal: Able to achieve maximum mobility levelOutcome: Not progressing as expected 45523-5Lcbt of care xpbnBB1011-65-48B31:18:16Plan of care noteTXT1.2.840.626641.1.13.104.2.7.2.727 879|3616729197QCSquxteqrh for patient goqs21111-6FxtjUZEICXTIRBUJwufaovos C-CDA narrative text[address] HacjQzqzlcojcEftsirzmzLNEA9517128298VZIY RMPPMAILODVYLUUMBK3822-79-92G73:18:161.2 .840.079999.1.72.3.15|1.2.840.082632.1.1 3.104.2.7.2.727879_[id number] [facility] 2023-08-29 11:04:51 KIEvfmuLgADc5ED/9U6dGiRz0rWsb9jPm2QxtTIc AedUmmjXW0X1uR0/LcYf1Tj26321-70-02E08:04 :51 Problem: Respiratory Function - ImpairedGoal: Able to cough effectivelyOutcome: Progressing as expectedGoal: Adequate oxygenationOutcome: Progressing as expectedGoal: Adequate work of breathingOutcome: Progressing as expectedGoal: Patent airwayOutcome: Progressing as expectedProblem: Falls, Risk ofGoal: Absence of fallsOutcome: Progressing as expectedProblem: PainGoal: Control of pain at or below patient's documented comfort goalOutcome: Progressing as expectedGoal: Reduction in pain sensationOutcome: Progressing as expectedProblem: Mobility - ImpairedGoal: Able to achieve maximum mobility levelOutcome: Progressing as expectedProblem: Nutrition DeficitGoal: Adequate nutritional intakeOutcome: Progressing as expectedProblem: Infection RiskGoal: Absence of infectionOutcome: Progressing as expected 75106-9Fefn of care hpunZA8630-90-11X86:04:54Plan of care noteTXT1.2.840.861248.1.13.104.2.7.2.727 879|[id number] for patient aokc96575-6LxjuWHUYVQINXHJNithueanf C-CDA narrative text[address] WikrWjybtsbmtKonqgvhecILHI6791123486GFRS VJYIGFPFFLVFOINEAI4778-12-26B15:04:541.2 .840.551547.1.72.3.15|1.2.840.290680.1.1 3.104.2.7.2.727879_[id number] [facility] 2023-08-29 07:10:28 /ey++H6D4jd3oIz/6nWbqHW9JBIq3F3R9XUs3Uxg +x24N2PxjEtS1sTMiVwbyL3n7807-79-86H24:10 :28 Vancomycin Therapeutic Monitoring NotePharmacy to monitor vancomycin dosing for patient Lovely Brionesr, [id number].Primary Physician: Adrian Doran Physician, if following:Indication for Vancomycin and Goal Trough: Pneumonia - Trough 12-17 mcg/mlAge: 78 year oldWeight:Wt Readings from Last 1 Encounters:08/29/23 55.5 kg (122 lb 5.7 oz)Duration of Antibiotics: Other: 3 daysConcurrent Antibiotics:Cefepime 1gm R83xMszxjwewpmfp:Laboratory Data and Vancomycin Dosing:Date Scr (mg/dL) CrCL (mL/min) Dosing Regimen and frequency @ Times (mg) Vancomycin Level @ Time (mcg/mL)-15 @ 0645 2.74 15 750mg once -------Assessment and Plan:Discussed with Jordan DoranPlan is to:Give a one-time dose of: 750mg once (appx. 13.5 mg/kg)Will monitor and dose upon random levelLevel to be drawn: _1-16_ @ _0800_Thank you for allowing pharmacy to participate in the care of this patient. Please feel free to contact us with any questions or concerns. LAZARO STANLEY RPH, PharmD[facility]08/29/2023 07:05 87184-5Ltqta EisjJE9289-53-22D38:10:32Nurse NoteTXT1.2.840.999724.1.13.104.2.7.2.727 879|[id number] for patient lmlc92866-6CaofAXDOYRKJIQCCguriflxu C-CDA narrative [id number] T Loe [address] WmsoEgybytigjAqptnzmzjFUKT9018768902EHKF DJUJSCGTHWSFMKLCMC2671-79-71F23:10:321.2 .840.985067.1.72.3.15|1.2.840.635449.1.1 3.104.2.7.2.727879_[id number] Lazaro Stanley [facility] 2023-08-29 07:04:32 Ys+RjO5jImi/lR2yO9iZ4VSLRHuKLgDlSbHXW3uI +8w4m13JtgLqP6r7CoPdrIKI4374-67-37Z57:04 :32 Pharmacist Renal Dosing Adjustment NotePer chart review, patient Lovely Welch meets criteria for renal dose adjustment.Please note that the following medication(s) have been renally adjusted per P[employer] approved pharmacist renal adjustment policy:Cefepime 1gm Q12h to Cefepime 1gm Z95lEnadcd call with questions or concerns. LAZARO STANLEY RP 07:04 90924-7Urxvo BlunKM2912-85-88C65:04:37Nurse NoteTXT1.2.840.560848.1.13.104.2.7.2.727 879|[id number] for patient vqmk50107-5WphsBTAXOYAAPSVIotsdsdai C-CDA narrative text[address] Ev[id number] YVCPFXWYHFNGFZVCAM5441-83-14E65:04:371.2 .840.896750.1.72.3.15|1.2.840.282040.1.1 3.104.2.7.2.727879_[id number] [facility] 2023-08-29 06:12:15 e4g+GyFdZz+QDUVmfEFyzaXDCqkI8AQYrilkJsu+ lmp163kbr5NDc34OUzSZD1yK7643-37-22H50:12 :15 Problem: Respiratory Function - ImpairedGoal: Able to cough effectivelyOutcome: Progressing as expectedGoal: Adequate oxygenationOutcome: Progressing as expectedGoal: Adequate work of breathingOutcome: Progressing as expectedGoal: Patent airwayOutcome: Progressing as expectedProblem: Falls, Risk ofGoal: Absence of fallsOutcome: Progressing as expectedProblem: PainGoal: Control of pain at or below patient's documented comfort goalOutcome: Progressing as expectedGoal: Reduction in pain sensationOutcome: Progressing as expectedProblem: Mobility - ImpairedGoal: Able to achieve maximum mobility levelOutcome: Progressing as expectedProblem: Nutrition DeficitGoal: Adequate nutritional intakeOutcome: Progressing as expectedProblem: Infection RiskGoal: Absence of infectionOutcome: Progressing as expected 78740-7Qjot of care sszyST1094-41-66S66:12:18Plan of care noteTXT1.2.840.905095.1.13.104.2.7.2.727 879|[id number] for patient dyfm09640-0VggyCSUEGMHUNGLZbqkjlffl C-CDA narrative [id number] Annika TOMAS[address] [id number] EFLLRARNPWPVQHPEZL2314-87-60E22:12:181.2 .840.113949.1.72.3.15|1.2.840.196169.1.1 3.104.2.7.2.727879_[id number] NickyAnnika Prince RN [facility] 2023-08-29 04:52:56 f08mgLF9c5AoVDy7P2TIrOnxWsLasRl2+8YIKMLJ DeZh1JsuCOQCMOB90VmH2/LF0134-76-11R71:52 :56 Patient transferred to [facility] for diagnosis of AKIPatient agrees to transfer/admit plan and verbalized understanding of plan of care, family aware of planPatient awake alert, oriented, resp reg unlabored, skin w/d PIV patent, no s/s infiltration noted,No adverse reaction to medications given while in ED.Report given to [facility] EMS personnel 21940-4Qtcjzosvh department PpchEB5201-03-09T20:22:58Emergency department NoteTXT1.2.840.857243.1.13.104.2.7.2.727 879|[id number] for patient ckqv55544-6CaesJSNFQBIOGSGRvetgfpyz C-CDA narrative text[id number] ZGBHRHBILUHCYHQDDE5491-65-23Q71:22:581.2 .840.746458.1.72.3.15|1.2.840.836466.1.1 3.104.2.7.2.727879_[id number] [facility] 2023-08-29 03:40:03 LKwjzqBtrJnjRpTD/mIliWNEACjQ40BdHgDp2GDg t1cSSAz1fJZrEWehx7ih0byY2489-35-85L05:40 :[facility] 35 min 22590-9Jxfvjdlzm department FwyzII6771-23-82L09:41:23Emergency department NoteTXT1.2.840.113643.1.13.104.2.7.2.727 879|[id number] for patient rqrt45021-9XhuyBCWHLBYAMQDTpopimcxk C-CDA narrative [id number] S Caldwell [id number] YQUZETIHQKDNNMGIBG9319-30-44N69:41:231.2 .840.777559.1.72.3.15|1.2.840.724003.1.1 3.104.2.7.2.727879_[id number] Debbie Vitale [facility] 2023-08-29 00:24:55 +5xU+NYxU8bmNPgrBgkDbFv3ub2YVu9jQPGHixtP XBJgNlUmPl5RB+MAjwKUjM+V4714-85-15A27:24 :55 Pt arrived via WC with daughter for not eating for 14 days and nausea. Daughter reports everything she eats comes up. She got Zofran from PCP but it doesn't work. Hasn't had a BM in unknown amount of time.Was admitted around new years for a-fib and pneumonia. 29193-4Eiypniprf department Triage cmerPH8204-33-82V59:26:04Emergency department Triage noteTXT1.2.840.493419.1.13.104.2.7.2.727 879|[id number] for patient jeko11590-5Pgauwrczx department NoteLNNARRATIVEFormatted C-CDA narrative [id number] D Roman RNUT[address] Nb[id number] UYFMZKGKACYKXXXLSN0507-01-61N31:26:041.2 .840.868584.1.72.3.15|1.2.840.909275.1.1 3.104.2.7.2.727879_[id number] Gardenia Finney RN [facility] 2023-08-29 00:17:00 tripU/Tz9XKxVvewHrJVJv8HQFccjgSIjq7xkxby kPSWlXmLGGtp7K1R/yJRChJi6117-09-21T63:17 :00Associated Order(s): EKG-12 Lead ROUTINE ONCEPre-Procedure Diagnose(s): NauseaPost-Procedure Diagnose(s): Nausea [facility] Emergency Department NotePatient Name: Lovely Almanzar of : 1945 78 year old femaleTreatment Room: [address] Record Number: [id number] [facility] Emergency Department Physician: Junaid Maldonado Escorted by: Family [5]Mode of Arrival: Personal means [1]EMS Treatment Prior to ED Arrival:KNIFEMAN treatment: NoneTravel and Exposure Screening:SymptomsDoes patient have any of these symptoms?: (not recorded)Exposure ScreeningHas patient had contact with someone with a communicable disease in the last month?: (not recorded)Diseases exposed to:: (not recorded)Is Patient ?: (not recorded)Exposure Date: (not recorded)Chief Complaint:Chief ComplaintPatient presents with Nausea Vomiting WeaknessHistory of Present Illness:Lovely is brought to the ER by her daughter for evaluation of severe fatigue, nausea, vomiting, and shortness of breath. She was recently admitted to [facility] August 12-2022 for chest pain secondary to pneumonia. Since returning home she has had persistent nausea and vomiting that was unresolved with Zofran. She has had worsening fatigue and shortness of breath. She is no longer able to get out of bed and requires assistance to a bedside commode. No fever or cough. She has a known history of atrial fibrillation, but daughter states heart rate has been more erratic than usual. Patient has been unable to keep down food or liquid. She vomited 3 times yesterday. Family has been holding Lasix approximately every other day for the past week because she has been keeping down so little fluids. Patient denies pain. Pt denies urination any today, "dribbled yesterday".Past Medical History/Immunizations:Past Medical History:Diagnosis Date Asymptomatic bilateral carotid artery stenosisseen on imaging 12/2018 Bilateral renal artery stenosis 11/16/2017Stent place in the Left renal artery Chronic combined systolic and diastolic congestive heart failure CKD (chronic kidney disease) stage 3, GFR 30-59 ml/min CVA (cerebral vascular accident)In 40s, reportedly related to thyroid surgery HTN (hypertension) Hypothyroidismsurgically removed due to goiter NeuropathyTetanus received in last 5 years: UnknownAllergies:AllergiesAllergen Reactions Prednisone Other - See commentsAFIBPast Social History:Tobacco UseNever smoked or used smokeless tobacco.Passive Exposure: NeverVaping UseNever usedAlcohol UseNo.Drug UseNo.Sexual ActivityNot currently sexually active.Past Surgical History:Past Surgical History:Procedure Laterality Date AORTOGRAM N/A 06/01/2023Surgeon: Prince Salter MD; Location: [facility] OR LOCATION SECTION COLONOSCOPY N/A 11/25/2017Surgeon: Blair Caballero MD; Location: [facility] ([facility]) OR Location ESOPHAGOGASTRODUODENOSCOPY N/A 11/25/2017Surgeon: Blair Caballero MD; Location: [facility] ([facility] OR Location PHACOEMULSIFICATION OF CATARACT WITH INTRAOCULAR LENS IMPLANT Right 09/07/2018Surgeon: Isiah Garcia MD; Location: [place] OR Location PHACOEMULSIFICATION OF CATARACT WITH INTRAOCULAR LENS IMPLANT Left 10/12/2018Surgeon: Isiah Garcia MD; Location: [place] OR Location THYROIDECTOMY in her 40s.due to goiter TONSILLECTOMYReview of Systems:Review of SystemsConstitutional: Positive for fatigue.Respiratory: Positive for shortness of breath. Negative for cough.Cardiovascular: Negative for chest pain.Gastrointestinal: Positive for nausea and vomiting. Negative for abdominal pain.Physical Exam:ED Triage Vitals [08/29/23 0027]Weight 53.5 kg (118 lb)Actual or estimated Estimated by patient/family reportHeight 1.499 m (4' 11")BP (!) 172/109Pulse 115Resp 16Temp 36.2 ?C (97.2 ?F)Temp source OralSpO2 94 %Measured on Room airPhysical ExamVitals and nursing note reviewed.Constitutional:Appearance: She is ill-appearing.HENT:Mouth/Throat:Mouth: Mucous membranes are dry.Cardiovascular:Rate and Rhythm: Tachycardia present. Rhythm irregular.Pulses: Normal pulses.Heart sounds: Normal heart sounds. No murmur heard.Pulmonary:Effort: Pulmonary effort is normal. No respiratory distress.Comments: Diminished breath sounds.Abdominal:General: Bowel sounds are normal.Palpations: Abdomen is soft.Tenderness: There is no abdominal tenderness.Musculoskeletal:Cervical back: Normal range of motion and neck supple.Neurological:Mental Status: She is alert and oriented to person, place, and time.Radiology:XR CHEST 1 VWFinal ResultOrdering physician: Syed BARRY BILYEUIndication: Shortness of breathComparison: Chest dated 08/12/2023Technical quality: AdequateFindings: Single AP view of the chest. The cardiopericardial silhouette isstably enlarged. There are bilateral pleural effusions, moderate to largeon the left and small on the right, with associated atelectasis versusinfiltrate. The visualized bony thorax is intact.IMPRESSIONImpression:Stable cardiomegaly.Moderate to large left and small right pleural effusions with associatedatelectasis versus infiltrate.END REPORTRL: 460AFC: [id number] signed by Federica Pradhan MD, PhD at 08/29/2023 1:42 AMLab Results:Lab ResultsCBC WITH DIFF - AbnormalResult Value Ref RangeWBC 19.08 (*) 4.30 - 11.10 10*3/?LRBC 4.27 3.93 - 5.25 10*6/?LHGB 13.0 11.6 - 15.0 g/dLHCT 38.3 35.7 - 45.2 %MCV 89.7 80.6 - 95.5 fLMCH 30.4 25.9 - 32.8 pgMCHC 33.9 31.6 - 35.1 g/dLRDW-SD 49.8 39.0 - 49.9 fLRDW-CV 15.3 12.0 - 15.5 %PLT 463 (*) 166 - 358 10*3/?LMPV 12.0 9.5 - 12.9 fLIPF % 13.2 (*) 1.3 - 7.7 %NRBC/100 WBC 0.0 0.0 - 10.0 /100 WBCsNRBC x10^3 <0.01 10*3/?LSEG % 75 33 - 76 %BAND % 16 (*) 0 - 1 %LYMPH % 4 (*) 14 - 54 %MONO % 3 0 - 4 %EOS % 2 0 - 3 %ANC 17.34 (*) 1.88 - 7.09 10*3/uLPLT ESTIMATE Increased (*) NormalCOMP. METABOLIC PANEL (21678) - AbnormalNA 116 (*) 135 - 145 mmol/LK 4.1 3.5 - 5.0 mmol/LCL 80 (*) 98 - 108 mmol/LCO2 TOTAL 22 (*) 23 - 31 mmol/LAGAP 14 2 - 16BUN 40 (*) 7 - 23 mg/dLGLUCOSE 138 (*) 70 - 110 mg/dLCREATININE 2.97 (*) 0.50 - 1.04 mg/dLTOTAL BILI 1.1 0.1 - 1.1 mg/dLCALCIUM 9.4 8.6 - 10.6 mg/Ángela PROTEIN 7.0 6.3 - 8.2 g/dLALBUMIN 4.0 3.5 - 5.0 g/dLALK PHOS 188 (*) 34 - 122 U/LALTv 14 5 - 35 U/LAST(SGOT) 20 13 - 40 U/LeGFR 15.7 mL/min/1.60a3CGOYV-14 (ID NOW RAPID TESTING) - GxvkdntwWLIP-BhU-8 Rapid ID NOW Positive (*) Not DetectedURINALYSIS - AbnormalAPPEARANCE Cloudy (*) ClearCOLOR Yellow YellowPH 5.0 4.8 - 8.0SP GRAVITY 1.017 1.003 - 1.030GLU U QUAL Normal NormalBLOOD 1+ (*) NegativeKETONES Negative NegativePROTEIN 100 mg/dL (*) NegativeUROBILIN Normal NormalBILIRUBIN Negative NegativeNITRITE Negative NegativeLEUK SARITHA Negative NegativeRBC/HPF >182 (*) 0 - 3 HPFWBC/HPF 9 (*) 0 - 5 HPFBACTERIA Few (*) NegativeMUCOUS Slight (*) Negative LPFSQ EPITH 37 HPFYEAST BUD 39 (*) <=1 HPFSPERM 1 <=1 HPFMAGNESIUM - NormalMAGNESIUM 2.1 1.7 - 2.4 mg/dLLIPASE - NormalLIPASE 93 0 - 220 U/LTROPONIN I - NormalTROPONIN I 0.004 <=0.034 ng/mLRAPID INFLUENZA A/B - NormalRapid Influenza A Negative NegativeRapid Influenza B Negative NegativeLACTIC ACID WHOLE BLOOD - NormalLACTIC ACID 1.53 0.50 - 2.20 mmol/LBLOOD CULTURE SCREENBLOOD CULTURE SCREENEKG:If EKG completed, see Procedure Note.Orders and Treatments:Orders Placed This EncounterProcedures XR CHEST 1 VW Cbc with Diff Comp. Metabolic Panel (34172) Magnesium Lipase Troponin I COVID-19 (ID NOW TESTING) RAPID INFLUENZA A/B Urinalysis BLOOD CULTURE SCREEN BLOOD CULTURE SCREEN Lactic Acid Whole Blood Lactic Acid Whole Blood Lab Only COVID InterpretationOrders Placed This EncounterMedications ondansetron (ZOFRAN (PF)) injection 4 mg NaCl 0.9% (NS) bolus infusion 500 mL proMETHazine (PHENERGAN) 12.5 mg in NS 50 mL IV piggyback (CNR) cefTRIAXone (ROCEPHIN) 1,000 mg in NaCl 0.9% (NS) 100 mL MINI-BAGFirst Provider Eval:ED EventsDate/Time Event User Ofszohws90/15/2429 Medical Screening Begins TAYLOR PRADHAN --08/29/2329 First Provider Evaluation TAYLOR PRADHAN --ED COURSEED Course as of 09/10/23 0842Mon Aug [id number] Worsening pleural effusions on CXR today as compared to previous.Today: Moderate to large left and small right pleural effusions with associatedatelectasis versus infiltrate.CXR 08/12/23: Findings of cardiomegaly, trace right pleural effusion and diffusebilateral interstitial opacities suggestive of mild pulmonary edema,grossly unchanged compared to the prior.[KB]0130 WBC x10^3(!): 19.08Rocephin 1gmLactic acid and blood cultures ordered.Urine collected prior to abx [KB]0130 NA(!!): 116Fluids ordered on arrival. [KB]0130 CREATININE(!): 2.97AKI [KB]ED Course User Index[KB] Syed Hatfield, PACDiagnosis/Impression as of 09/10/23 0842NauseaSOB (shortness of breath)Fatigue, unspecified typeAKI (acute kidney injury)HyponatremiaCOVIDPleural effusionAspiration pneumonia, unspecified aspiration pneumonia type, unspecified laterality, unspecified part of lungPericardial effusionPneumonia of both lower lobes due to infectious organismIntractable vomiting with nauseaS/P ablation of atrial fibrillationProcedures:EKG-12 Lead ROUTINE ONCEDate/Time: 08/29/2023 12:50 AMPerformed by: Syed Hatfield, PACAuthorized by: Syed Hatfield, PACECG interpreted by ED Physician in the absence of a retirement assistant: yesPrevious ECG:Previous ECG: Compared to currentSimilarity: Changes notedComparison ECG info: Previous NSRInterpretation:Interpretation: abnormalRate:ECG rate: 114ECG rate assessment: tachycardicRhythm:Rhythm: atrial fibrillationEctopy:Ectopy: noneQRS:QRS axis: NormalQRS intervals: NormalQRS conduction: normalST segments:ST segments: NormalT waves:T waves: flatteningFlattening: V4, V5 and V6Q waves:Abnormal Q-waves: not presentMDM:Medical Decision MakingPt with nausea and vomiting x 2 weeks after d/c from [facility] for pneumonia. Severe fatigue and worsening SOB.No CP or abd pain.No urination today.Dry on exam with diminished breath sounds.500ml NS IVVSSLabs withWBC 19, presumed pulm infection. Started on rocephinLactic acid nlAKI on CKDNa 116Covid +New moderate to large L pleural effusion, worsened right pleural effusionADC at capacity. Pt transferred to [facility] IMU, DR Garrett Addressed:STEPHY (acute kidney injury): acute illness or injuryCOVID: acute illness or injuryFatigue, unspecified type: acute illness or injuryHyponatremia: acute illness or injuryNausea: acute illness or injuryPleural effusion: acute illness or injurySOB (shortness of breath): acute illness or injuryAmount and/or Complexity of Data ReviewedIndependent Historian: caregiverExternal Data Reviewed: labs, radiology, ECG and notes.Labs: ordered. Decision-making details documented in ED Course.Radiology: ordered. Decision-making details documented in ED Course.ECG/medicine tests: ordered and independent interpretation performed. Decision-making details documented in ED Course.Discussion of management or test interpretation with external provider(s): Pt d/w Dr Ruth for IMU admission, previous admit, symptoms, exam, results, and management discussed.RiskPrescription drug management.Decision regarding hospitalization.Flowsheet Documentation:Scoring Tools:No data recordedDisposition/Condition:ED DispositionNoneElectronically signed by:Syed Hatfield, NANDINI08/29/23 0305 ssociated attestation - Gemma García DO - 08/29/2023 5:43 AM CST I was personally available for consultation in the Emergency Department during thisencounter and patient evaluation by JAXON Hatfield.I did not personally evaluate the patient. See GEMINI note for details.05045-6Ckxjaokft Emergency department GsvhSC1183442Tpqtgtb, Ambica1.2.840.480515.1.13.104.2.7.2.8369 83IisxqsfHbvymqKQ9937-48-59G42:43:18Phys ician Emergency department NoteTXT1.2.840.160284.1.13.104.2.7.2.727 879|[id number] for patient alvc07351-3Bykmaflsp department NoteLNNARRATIVEFormatted C-CDA narrative text[id number] ZAEKMZAYFQUNBOYQFT8695-30-22U05:43:181.2 .840.208167.1.72.3.15|1.2.840.837803.1.1 3.104.2.7.2.727879_[id number] [facility] 2023-08-26 15:03:40 Wmz1spfxNPyAfbOEoaPCL6JRQtMWJ+CBJgNXDC+n Y1KaeSw3cCIjwDcheuyIxsxT5823-29-63U41:03 :40 Spoke with patients son and informed of medication adjustment.Rx sent in.Verbalized understanding and agreed. 56361-9Hhtqihnfk encounter TihxIA1682-62-22H16:04:54Telephone encounter NoteTXT1.2.840.461414.1.13.104.2.7.2.727 879|[id number] for patient pevx83422-6AddlLRZWSJVKSCWEnrvhawzd C-CDA narrative [id number] A Reyes LEIDY[id number] GMMPCOAYZRIXAEMWCK5189-03-54H01:04:541.2 .840.318121.1.72.3.15|1.2.840.489019.1.1 3.104.2.7.2.727879_[id number] Ladi Ramirez LVN [facility] 2023-08-26 12:05:25 fBfV0iAaA1bf+8YS4cZ3QeGk98YaIy8Wyp1wMJp7 aisMgmfvmnhQ+Qe+HwhhEnBg4123-32-97M20:05 :25 Hi,Can we please increase amiodarone to 200 mg daily and metoprolol tartrate to 75 mg PO BID.[place] [address]-5Igzaicrek encounter OfzrCN5990-09-05R62:06:26Telephone encounter NoteTXT1.2.840.854999.1.13.104.2.7.2.727 879|[id number] for patient aulb69427-9CkvaAJSOZPJRUUQRzuheussa C-CDA narrative textUT[address] Kj[id number] NEHIUBSXNNFXWYXKIE5252-20-87H27:06:261.2 .840.557105.1.72.3.15|1.2.840.699669.1.1 3.104.2.7.2.727879_[id number] [facility] 2023-08-26 11:45:26 s9VeeJtGKWdpJlkzZPqD16d11MBLVhRXSXm7yNMe Ve1akZskRzvTsx+4LVEIRyku7810-21-04Z01:45 :26 Per son Herman she has metoprolol tart 50mg BID, amiodarone 100mg.States her HR will be around 110 or higher and he will just give her extra metoprolol.He believes she is in a-fib because she will be SOB and does not feel good.I asked him to bring her to clinic next week for f/u.Will check with Dr. Villatoro to see if he wants to adjust meds any before visit. 52758-7Rweajyhgz encounter FdnzGX4063-73-30X87:48:47Telephone encounter NoteTXT1.2.840.788476.1.13.104.2.7.2.727 879|[id number] for patient ixlm05996-3NkdoRYGFMPTKYAYJqsrhlhax C-CDA narrative textUT65 [address] [id number] SANTIAGOOLTQIGOVZBXKAWSKLX5941-31-63J23:48:471.2 .840.167283.1.72.3.15|1.2.840.972863.1.1 3.104.2.7.2.727879_[id number] [facility] 2023-08-26 08:04:58 62S309xXlF58Ds7at7ZsN8+y2aaOSkT1bMfwrUDw XoYkK0ARmVml6zYrJlrzKKim8931-98-12C99:04 :58 Lovely Welch is a 78 year old female daughter is returning a miss call. 79470-2Lxumulmck encounter YtrpZX4480-65-76A83:05:14Telephone encounter NoteTXT1.2.840.169126.1.13.104.2.7.2.727 879|[id number] for patient cjsc36029-6IoxwBFLRRDVRQISKtyceqepr C-CDA narrative [id number] Del Rosario Sarkar[id number] SANTIAGODFIGMDWPQJIWVSZYBT2591-18-53R33:05:141.2 .840.913441.1.72.3.15|1.2.840.896745.1.1 3.104.2.7.2.727879_[id number] Maria Del Rosario Montemayor [facility] 2023-08-25 15:41:13 8fBddAfTg4lZmlHJ//y5UbGvquPtEwHqex+FxnuV Uyz1zq3txyZvGdvGFZCJlTCt1010-08-97D94:41 :13 Tried to return call, message left. 71661-5Deubhyqfk encounter FbyqGI1675-33-84D89:41:37Telephone encounter NoteTXT1.2.840.244178.1.13.104.2.7.2.727 879|[id number] for patient utvd75931-9GxlmZXBHFRXJJZEJahtctnac C-CDA narrative text[id number] QYIJQFQUSASFEIVOHS5608-31-42C06:41:371.2 .840.239565.1.72.3.15|1.2.840.840043.1.1 3.104.2.7.2.727879_[id number] [facility] 2023-08-25 08:24:41 mtu4MyKEowttvjAWYQzYHmzf3pxTTeWlA0oYgtoD 6O21Gk54M+MxmlnfkS7+ODEV7973-26-18D60:24 :41 Pt's daughter requesting call back from clinic regarding changes made to her metoprolol, needs new Rx called in.Please F/umetoprolol tartrate 50 mg tabletKR[facility]ER [facility] [id number] [place] - [facility] [facility] [address] PINONPhone: Ror: [phone] signed by Babak Atkinson at 08/25/2023 8:26 AM IVQ01273-8Ynahyhchj encounter FzrcRM3022-43-29M71:26:20Telephone encounter NoteTXT1.2.840.167507.1.13.104.2.7.2.727 879|[id number] for patient ldmy03979-5EdfxQEBJVWAVWZDRpnjbuene C-CDA narrative [id number] [id number] SANTIAGOPGBFNLLUMDVLHSFUTG2278-82-05W60:26:201.2 .840.121127.1.72.3.15|1.2.840.100764.1.1 3.104.2.7.2.727879_[id number] Babak Atkinson [facility] 2023-08-24 10:14:55 vmxHz95TvEFvon3qidXSfDQIFXfh2PSgrYN+q6oi RM5YVKyKjcIqhseCnIej9XJO0042-00-76D34:14 :55 Lovely Welch is a 78 year old femalePts son calling returning nurses call in regards to erratic HR and dose clarification. Per pt. Please contact the son pt doesn't always hear the phone and pts son is with pt. Please advise. 83312-0Qxumbtukd encounter MchyCT7599-51-73Y04:17:49Telephone encounter NoteTXT1.2.840.746214.1.13.104.2.7.2.727 879|[id number] for patient fstx98611-7NtcpGGHWFDWPJRDBeagevrhq C-CDA narrative [id number] [id number] SORENSENXKKFRDGWRHYIEACQEO1462-27-62L74:17:491.2 .840.874124.1.72.3.15|1.2.840.313809.1.1 3.104.2.7.2.727879_[id number] Fred Williamson [facility] 2023-08-24 10:03:11 XYDjtdzhJ+ce/K+rtTshMuyDUiC9F1eNo/N93Di2 TrkiTFTX7BK3U2PyWzZvnDxt5445-24-59G39:03 :11 Tried to contact patient, spoke with daughter. She asked that I call patient at [phone].Per daughter it was adjusted by PCP, but do not see dose.Message left for patient to call clinic. 38178-5Secphkpcz encounter ApvaTG7819-32-02W33:05:07Telephone encounter NoteTXT1.2.840.636378.1.13.104.2.7.2.727 879|[id number] for patient tael21786-1QqfuQFEXRIOYPPNAdlaeqpfb C-CDA narrative [id number] A Reyes [address] Dn[id number] PFUMVQSMCXFBMAHTEM9031-31-41T98:05:071.2 .840.677145.1.72.3.15|1.2.840.497277.1.1 3.104.2.7.2.727879_[id number] Ladi Ramirez LVN [facility] 2023-08-23 14:05:06 2oYQi2MDgKXWjn12a0EiI5Yz2/tinc919gtxSLAY rYChina/Ov9aQMIEV6JINA9vnDSR7154-03-29K25:05 :06 Lovely Welch is a 78 year old femalePt and son calling returning nurse's call. Pt states she was advised to increase her medicine for afib. Pt states her afib has been acting up and when it does it causes the pt. Shortness if breath. Please advise. 50559-2Whlnkcebo encounter EcizBN9006-45-64Q91:07:53Telephone encounter NoteTXT1.2.840.538315.1.13.104.2.7.2.727 879|[id number] for patient mcmp59972-6JdfaYWDYTGXHRSCOqutvdlon C-CDA narrative qopo625936393Epgkg [id number] TORONMTAUSERVVRIJTSRZK4871-06-66I99:07:531.2 .840.853525.1.72.3.15|1.2.840.543766.1.1 3.104.2.7.2.727879_[id number] [facility] 2023-08-23 11:31:54 kkqOl/CqqhgGoYm0ssUFhAYN1UfQV/91gfbQf97Q TutGOSUoOjPh6Xdm+5oMZEO72109-90-88F00:31 :54 Tried to contact patient, message left. 54485-4Ouonrqayk encounter JtczYS4837-32-06H70:35:12Telephone encounter NoteTXT1.2.840.585196.1.13.104.2.7.2.727 879|[id number] for patient ctgp57522-1EwazQYVELNCWFFXGfjoahyhi C-CDA narrative [id number] SORENSENQRIBBESDZMNFQPHREO3071-06-46C40:35:121.2 .840.583470.1.72.3.15|1.2.840.341006.1.1 3.104.2.7.2.727879_[id number] [facility] 2023-08-22 16:29:38 dw2Yu9LqJg+f+6xfhlkjSt0dWvqAvHFsE1FglgXb DWKIkrsxJcDLCPT0QrzQTrjy7237-86-08R34:29 :38 Tried to contact patient, message left.Would like to confirm dose with patient. 04402-0Qayxntzuu encounter QhgcFC1445-32-82R05:34:36Telephone encounter NoteTXT1.2.840.716758.1.13.104.2.7.2.727 879|[id number] for patient tpzx01839-2TjaxSOZOJDKJQHQPcayagzuz C-CDA narrative text[id number] FBXMKECKMLWBXOWAXQ9034-77-25J26:34:361.2 .840.141441.1.72.3.15|1.2.840.482192.1.1 3.104.2.7.2.727879_[id number] [facility] 2023-08-17 12:20:54 rYz5vpW5MGjcQCQbelOvGFAUF1nKRX7To3P+lVuM 7T/YhEAMq3ObPzqXgYCc+1UN6996-83-01B53:20 :54 TRANSITIONAL CARE MANAGEMENT ASSESSMENT08/17/2023Lovely [id number] Welch is a 78 year old /White female was admitted on 08/12/23 to [facility], [facility]. She was discharged on 08/14/23 with discharge disposition of HR- Routine Discharge.Admitting Physician: Doe Hi Diagnosis: Chest painLinked EpisodesType: Episode: Status: Noted: Resolved: Last update: Updated by:TRANSITION OF CARE tcm Active 08/17/2023 08/17/2023 12:20 PM Jennifer Noland RNComments:DHRUV Rvf-cffe-gn-face outreach documentation:Discharge AssessmentChart Assessed: 08/17/23TCM Outreach Completed: 08/17/23Do you have a few minutes to speak with me about how you are doing at home?: Yes (Per daughter patient is feeling a little better)Discharge InstructionsDo you understand your at-home instructions?: YesMedicationsHave you filled your prescriptions and do you have them in your home? : YesDo you know how to take your medications?: YesSuppliesDid you receive applicable home medical supplies/equipment?: N/AFollow Up AppointmentHas a follow up appointment been scheduled?: YesDo you have any questions about your follow up appointments?: NoAre you able to get to your appointment? Who will be taking you?: Yes (family member)Home Health AssistanceHas the home health nurse contacted you since you've been home?: N/ASurvey - RecognitionIs there anything you would like to share about your recent hospitalization, or anyone you would like to recognize?: NoDo you have any suggestions for improvement?: NoDo you have any other questions or concerns at this time?: NoFuture Appointments:Future AppointmentsProvider Department Dept Phone08/22/2023 11:20 AM J[facility]id Villar [facility] [place] [id number]/03/2024 3:30 PM Andrew Astudillo MD [facility] [phone]/ 2:00 PM Ephraim Eubanks MD [facility] [phone]/ 3:00 PM Santiago Villatoro MD [facility] Health [facility] [phone] signed by Jennifer Noland RN at 08/17/2023 12:21 PM PNH28236-9Tkekkmqcm encounter QkdeWN8146-08-31J94:21:18Telephone encounter NoteTXT1.2.840.385793.1.13.104.2.7.2.727 879|[id number] for patient qqwf62632-8InjkJWGVKUUSRHNMofhqdrxz C-CDA narrative [id number] B Porter RNUT[address] Pe[id number] BZDPZIHVRLWZBXTWEW5956-12-76G70:21:181.2 .840.524514.1.72.3.15|1.2.840.695275.1.1 3.104.2.7.2.727879_[id number] Jennifer Noland RN [facility] 2023-08-14 13:03:35 cUJX8VK03Nftxb5efGElO/uSd5/AV7wXyeWkvZIw 4FKR2Vh61BtpxxnTTQbMVsfn9673-28-85A56:03 :35 Problem: Discharge PlanningGoal: Adequate for dischargeOutcome: Adequate for dischargeProblem: Cardiac Output - DecreasedGoal: Absence of signs and symptoms of decreased cardiac outputOutcome: Adequate for dischargeProblem: PainGoal: Control of pain at or below patient's documented comfort goalOutcome: Adequate for dischargeProblem: Skin integrity Impaired (Risk or Actual)Goal: Prevention of new skin breakdownOutcome: Adequate for dischargeProblem: Tissue Perfusion, Cardiopulmonary - AlteredGoal: Circulatory function within specified parametersOutcome: Adequate for dischargeProblem: Respiratory Function - ImpairedGoal: Adequate oxygenationOutcome: Adequate for dischargeGoal: Adequate work of breathingOutcome: Adequate for dischargeProblem: Infection RiskGoal: Absence of infectionOutcome: Adequate for discharge 59266-5Zkon of care zsmfTA9143-85-51O44:03:39Plan of care noteTXT1.2.840.283110.1.13.104.2.7.2.727 879|[id number] for patient xlyg84628-2FqhxWMGIPDSISHDYluqgjekf C-CDA narrative [id number] Melvi RN[id number] SORENSENTMSRJPQWRINZENJASL7149-08-89M72:03:391.2 .840.151663.1.72.3.15|1.2.840.017857.1.1 3.104.2.7.2.727879_[id number] Francesca Ogden RN [facility] 2023-08-14 01:07:34 mI6bjYCHCnbaoyEJZtnW0KoTCV+NpPI41Oh5AUDz NzSQbv5xbH1eHeFD1Vu84THj1725-78-34S33:07 :34 Problem: Discharge PlanningGoal: Adequate for dischargeOutcome: Progressing as expectedProblem: Cardiac Output - DecreasedGoal: Absence of signs and symptoms of decreased cardiac outputOutcome: Progressing as expectedProblem: PainGoal: Control of pain at or below patient's documented comfort goalOutcome: Progressing as expectedProblem: Skin integrity Impaired (Risk or Actual)Goal: Prevention of new skin breakdownOutcome: Progressing as expectedProblem: Tissue Perfusion, Cardiopulmonary - AlteredGoal: Circulatory function within specified parametersOutcome: Progressing as expectedProblem: Respiratory Function - ImpairedGoal: Adequate oxygenationOutcome: Progressing as expectedGoal: Adequate work of breathingOutcome: Progressing as expectedProblem: Infection RiskGoal: Absence of infectionOutcome: Progressing as expected 27179-0Acag of care szajYZ0896-24-95X27:07:36Plan of care noteTXT1.2.840.935893.1.13.104.2.7.2.727 879|[id number] for patient jerl78642-4PzrqNDLWSKFXZNOBsbtizvch C-CDA narrative rlgg037212110Rvfqis Cardenas RNUT[address] [id number] SANTIAGODMVWFIOYRKBFJGSXZB9752-93-64E16:07:361.2 .840.937485.1.72.3.15|1.2.840.127620.1.1 3.104.2.7.2.727879_[id number] Marcela Schaefer RN [facility] 2023-08-13 18:53:55 SNQF3iIBj52Uo4cAqBIteZcWH1BYgMNZ/oGi3D4B 7b612BNEqPirbszGt6ewDdfU7558-48-29E98:53 :55 Pharmacist Renal Dosing Adjustment NotePer chart review, patient Lovely Welch meets criteria for renal dose adjustment.Please note that the following medication(s) have been renally adjusted per P&T approved pharmacist renal adjustment policy:ampicillin-sulbactam (UNASYN) 3 gm Q6H to V69DXfDu: 26 ml/min (08/13/23)Please call with questions or concerns. Robert Velarde RPH, PharmDUB [facility] Department of PharmacyPhone: Ixcmjtargiqknk signed by Robert Velarde RPH at 08/13/2023 6:54 PM OXO67095-9Pookd HrduMW6329-00-89Z90:54:05Nurse NoteTXT1.2.840.720851.1.13.104.2.7.2.727 879|[id number] for patient eqxb77634-5QdrhOYMSBEIAUFAJcsocunyz C-CDA narrative [id number] S See [id number] TOROBRABZDIRARGKIZBCWA4914-45-66R64:54:051.2 .840.809801.1.72.3.15|1.2.840.458388.1.1 3.104.2.7.2.727879_[id number] Robert Ashraf See [facility] 2023-08-13 13:53:16 Oc8FPEjtAfCBse+XKQbPYA5CiySQN0d4pHXeQYOl 0wgvffXRnHF0kBole57NoWC46492-35-87F69:53 :16 Problem: Discharge PlanningGoal: Adequate for dischargeOutcome: Progressing as expectedProblem: Cardiac Output - DecreasedGoal: Absence of signs and symptoms of decreased cardiac outputOutcome: Progressing as expectedProblem: PainGoal: Control of pain at or below patient's documented comfort goalOutcome: Progressing as expectedProblem: Skin integrity Impaired (Risk or Actual)Goal: Prevention of new skin breakdownOutcome: Progressing as expectedProblem: Tissue Perfusion, Cardiopulmonary - AlteredGoal: Circulatory function within specified parametersOutcome: Progressing as expectedProblem: Respiratory Function - ImpairedGoal: Adequate oxygenationOutcome: Progressing as expectedGoal: Adequate work of breathingOutcome: Progressing as expectedProblem: Infection RiskGoal: Absence of infectionOutcome: Progressing as expected 40974-4Bqdk of care xwpnUA0284-91-80G50:53:19Plan of care noteTXT1.2.840.431336.1.13.104.2.7.2.727 879|[id number] for patient ndtb29100-3NcrsYFVMWSXFGHKFbwzguacs C-CDA narrative [id number] TOMAS[address] Xt[id number] MGVMNQVLGYNXOSGYLG8837-53-35D96:53:191.2 .840.776471.1.72.3.15|1.2.840.707742.1.1 3.104.2.7.2.727879_[id number] Lakshmi Lares [facility] 2023-08-13 04:21:40 V5syCL9sgf/EZc6nz178/pK0vyVJi48Smo1RH71X JUye8S5dWTohYIkNBk79W8ca0268-13-00K45:21 :40 Problem: Discharge PlanningGoal: Adequate for dvadvdqtq08/30/2023420 by Marcela Schaefer RNOutcome: Progressing as euljwjka43/30/2023 034 by Marcela Schaefer RNOutcome: Progressing as qxeuabhp61/30/2023 033 by Marcela Schaefer RNOutcome: Progressing as expectedProblem: Cardiac Output - DecreasedGoal: Absence of signs and symptoms of decreased cardiac oyjcrn5908/13/2023420 by Marcela Schaefer RNOutcome: Progressing as swivbezw94/30/2023 034 by Marcela Schaefer RNOutcome: Progressing as /30/2023 033 by Marcela Schaefer RNOutcome: Progressing as expectedProblem: PainGoal: Control of pain at or below patient's documented comfort goal08/13/2023420 by Marcela Schaefer RNOutcome: Progressing as mckvnzri28/30/2023 0345 by Marcela Schaefer RNOutcome: Progressing as /30/2023 033 by Marcela Schaefer RNOutcome: Progressing as expectedProblem: Skin integrity Impaired (Risk or Actual)Goal: Prevention of new skin wvhrhuavc10/30/2023420 by Marcela Schaefer RNOutcome: Progressing as cadhlecg65/30/2023 0345 by Marcela Schaefer RNOutcome: Progressing as cxrabvht68/30/2023 033 by Marcela Schaefer RNOutcome: Progressing as expectedProblem: Tissue Perfusion, Cardiopulmonary - AlteredGoal: Circulatory function within specified ndcqbuffzs96/30/2023420 by Schaefer, Marcela, RNOutcome: Progressing as wfbfwcok00/30/2023 0345 by Marcela Schaefer RNOutcome: Progressing as ynpzlicm63/30/2023 0336 by Marcela Schaeefr RNOutcome: Progressing as expectedProblem: Respiratory Function - ImpairedGoal: Adequate eexnvmxoiui87/30/2023 0421 by Marcela Schaefer RNOutcome: Progressing as sdhsahds01/30/2023 0345 by Marcela Schaefer RNOutcome: Progressing as awjpogzy38/30/2023 0336 by Marcela Schaefer RNOutcome: Progressing as expectedGoal: Adequate work of ubxxbnrnh86/30/2023 0421 by Marcela Schaefer RNOutcome: Progressing as kwfcimvj94/30/2023 0345 by Marcela Schaefer RNOutcome: Progressing as uibfycxg30/30/2023 0336 by Marcela Schaefer RNOutcome: Progressing as expectedProblem: Infection RiskGoal: Absence of baooaxerg74/30/2023 0421 by Marcela Schaefer RNOutcome: Progressing as uxrzvkpb15/30/2023 0345 by Marcela Schaefer RNOutgregor: Progressing as muqdxacc26/30/2023 0336 by Marcela Schaefer RNOutgregor: Progressing as expected 29837-1Dsqi of care wxijUZ4120-12-28A29:21:42Plan of care noteTXT1.2.840.694340.1.13.104.2.7.2.727 879|[id number] for patient qexw65827-7DhnpNYEGPOJNGQZDfwyokspz C-CDA narrative textUT[address] Me[id number] ZWPECWKHICVOHYIZQI4043-95-43Y83:21:421.2 .840.062121.1.72.3.15|1.2.840.919377.1.1 3.104.2.7.2.727879_[id number] [facility] 2023-08-13 03:45:53 Z0dnG+XhcaWgIWXp0iSfSyMxywyn/H22nmSrIwUK hTaVitKN+qZqjxWumZwP4eyA4695-42-95W03:45 :53 Problem: Discharge PlanningGoal: Adequate for qvqoyedyj25/30/2023 034 by Marcela Schaefer RNOutcome: Progressing as pdtisora60/30/2023 033 by Marcela Schaefer RNOutcome: Progressing as expectedProblem: Cardiac Output - DecreasedGoal: Absence of signs and symptoms of decreased cardiac dfstax3408/13/2023 034 by Marcela Schaefer RNOutcome: Progressing as cwwueqcx97/30/2023 033 by Marcela Schaefer RNOutcome: Progressing as expectedProblem: PainGoal: Control of pain at or below patient's documented comfort goal08/13/2023 034 by Marcela Schaefer RNOutcome: Progressing as ekezlchj33/30/2023 033 by Marcela Schaefer RNOutcome: Progressing as expectedProblem: Skin integrity Impaired (Risk or Actual)Goal: Prevention of new skin alktlrvii44/30/2023 034 by Marcela Schaefer RNOutcome: Progressing as vlhhowam50/30/2023 0336 by Marcela Schaefer RNOutcome: Progressing as expectedProblem: Tissue Perfusion, Cardiopulmonary - AlteredGoal: Circulatory function within specified ckxayolidj06/30/2023 034 by Marcela Schaefer RNOutcome: Progressing as /30/2023 0336 by Marcela Schaefer RNOutcome: Progressing as expectedProblem: Respiratory Function - ImpairedGoal: Adequate wpsykvcjxko83/30/2023 034 by Marcela Schaefer RNOutcome: Progressing as /30/2023 0336 by Marcela Schaefer RNOutcome: Progressing as expectedGoal: Adequate work of dihpmgsom35/30/2023 0345 by Schaefer, Marcela, RNOutcome: Progressing as wtroraif88/30/2023 0336 by Marcela Schaefer RNOutcome: Progressing as expectedProblem: Infection RiskGoal: Absence of ambkyykif38/30/2023 0345 by Marcela Schaefer RNOutcome: Progressing as dvuqwhcl65/30/2023 0336 by Marcela Schaefer, SANDRAOutcome: Progressing as expected 65028-0Mwgq of care pzehQU2919-50-09L50:45:57Plan of care noteTXT1.2.840.644753.1.13.104.2.7.2.727 879|[id number] for patient puge36336-6FlvvWYBDSPYZAYURvguepitq C-CDA narrative text[address] Vj[id number] YCJDUTHUTEIIOPXZOS5185-33-31I63:45:571.2 .840.097818.1.72.3.15|1.2.840.522749.1.1 3.104.2.7.2.727879_[id number] [facility] 2023-08-13 03:36:23 QkhCaY9k3Nb1Fd8EYBGu17ls7lJpL0PyxNXR4wgJ 9Smk5zklfNae4nouZxQvUOGm5086-74-96B80:36 :23 Problem: Discharge PlanningGoal: Adequate for dischargeOutcome: Progressing as expectedProblem: Cardiac Output - DecreasedGoal: Absence of signs and symptoms of decreased cardiac outputOutcome: Progressing as expectedProblem: PainGoal: Control of pain at or below patient's documented comfort goalOutcome: Progressing as expectedProblem: Skin integrity Impaired (Risk or Actual)Goal: Prevention of new skin breakdownOutcome: Progressing as expectedProblem: Tissue Perfusion, Cardiopulmonary - AlteredGoal: Circulatory function within specified parametersOutcome: Progressing as expectedProblem: Respiratory Function - ImpairedGoal: Adequate oxygenationOutcome: Progressing as expectedGoal: Adequate work of breathingOutcome: Progressing as expectedProblem: Infection RiskGoal: Absence of infectionOutcome: Progressing as expected 06412-6Ctri of care afqlXV9797-87-92T88:36:25Plan of care noteTXT1.2.840.444278.1.13.104.2.7.2.727 879|[id number] for patient xmxc50985-0HyvrEETZKDAVVELSnnugfpvl C-CDA narrative [address]Ao[id number] TLUHPQBFRMAJSKMCIN3383-44-79L52:36:251.2 .840.021291.1.72.3.15|1.2.840.255905.1.1 3.104.2.7.2.727879_[id number] [facility] 2023-08-12 13:31:23 YBojuPKBmSO1swwjD+tEkiFohjnpdvNOC2uHjDAl d4KAPGVapv/4bUZOe4SAbO4Q1993-54-38I18:31 :23 Problem: Discharge PlanningGoal: Adequate for dischargeOutcome: Progressing as expectedProblem: Cardiac Output - DecreasedGoal: Absence of signs and symptoms of decreased cardiac outputOutcome: Progressing as expectedProblem: PainGoal: Control of pain at or below patient's documented comfort goalOutcome: Progressing as expectedProblem: Skin integrity Impaired (Risk or Actual)Goal: Prevention of new skin breakdownOutcome: Progressing as expectedProblem: Tissue Perfusion, Cardiopulmonary - AlteredGoal: Circulatory function within specified parametersOutcome: Progressing as expectedProblem: Respiratory Function - ImpairedGoal: Adequate oxygenationOutcome: Progressing as expectedGoal: Adequate work of breathingOutcome: Progressing as expectedProblem: Infection RiskGoal: Absence of infectionOutcome: Progressing as expected 11689-4Ffju of care nnjvKE2587-91-79B61:31:26Plan of care noteTXT1.2.840.296044.1.13.104.2.7.2.727 879|[id number] for patient eppe55490-0VnkbBQCTMCOBSNQDlgmleuoq C-CDA narrative text[address] [id number] HILTONNCUKJFDHALMNRDFYNT2017-21-81B39:31:261.2 .840.052339.1.72.3.15|1.2.840.899216.1.1 3.104.2.7.2.727879_[id number] [facility] 2023-08-12 11:58:39 htNrTxUNrxmDpOBy3wLptOZFk/OeeFz3SfWkLcJU rmISACGk7cvq983Figz4aEk21546-75-17Y97:58 :39 Nurse ReportReport given to SANDRA Marinelli. Chief complaint, assessment findings, infusion verify and orders reviewed. Plan of care [place] [address]-4Kkqgwzkpq department TjxsSN2347-58-03G34:59:06[facility] NoteTXT1.2.840.605993.1.13.104.2.7.2.727 879|[id number] for patient iwdr05586-1RvirRCNTNTTOOEMSeeyklrsp C-CDA narrative lzyo711287321Gpftbrmk M Felix RNUT[id number] HILTONVOFEYFVHGQOEQXZAVP5596-16-33M47:59:061.2 .840.327573.1.72.3.15|1.2.840.195353.1.1 3.104.2.7.2.727879_[id number] Soledad Art Sergio SABA [facility] 2023-08-12 07:21:08 Aj+tLq9mowOTIpnxMo1c38TnqnWMM9aES9g0feh+ 8rvWEsk77EsFFIO8iubZEaKJ6181-20-86D06:21 :08 Pt c/o CP that radiates up toward her neck and jaw area, reports pain started "a few hours ago" and woke her up from her sleep. Also reports SOB and pain with inspiration. 46642-0Iudkcxluo department Triage ghdmUH1222-09-71L04:22:04[facility] Triage noteTXT1.2.840.918049.1.13.104.2.7.2.727 879|[id number] for patient xuhf72252-7Duhunarjv department NoteLNNARRATIVEFormatted C-CDA narrative [id number] N Dewoody RN[address] StreetOfpdTdbnqtgipJmbdlltrcZLHI9042612741LIIG BWAMEXCUSFCCYUSECH0261-19-01P01:22:041.2 .840.819993.1.72.3.15|1.2.840.309405.1.1 3.104.2.7.2.727879_[id number] Patricia Blanton RN [facility] 2023-08-12 07:12:00 LtXu0rDtZbSD5IP9NVWvoCQ11hZzHQhgfa72wM+W 9AnISAzwMsJtlQBWk9MLa52f4503-34-85W54:12 :00Associated Order(s): EKG-12 Lead ROUTINE ONCEPre-Procedure Diagnose(s): Chest pain, unspecified typePost-Procedure Diagnose(s): Chest pain, unspecified type [facility] Emergency Department NotePatient Name: Lovely Almanzar of : 1945 78 year old femaleTreatment Room: Room/bed info not foundMedical Record Number: [id number] Care Physician: Britni TabaresPatient Escorted by: Family [5]Mode of Arrival: Personal means [1]EMS Treatment Prior to ED Arrival:Travel and Exposure Screening:SymptomsDoes patient have any of these symptoms?: (not recorded)Exposure ScreeningHas patient had contact with someone with a communicable disease in the last month?: (not recorded)Diseases exposed to:: (not recorded)Is Patient ?: (not recorded)Exposure Date: (not recorded)Chief Complaint:Chief ComplaintPatient presents withChest PainHistory of Present Illness:The patient presents from home for evaluation for chest pain that started around 4 or 5 hours ago. She reports it woke her up from sleep. The pain is substernal and radiates to her left arm. She also complains of shortness of breath. Her pain is worse with deep breathing. She took a [employer] [place] around 4:30 AM today and has not helped her. She has been chronically ill this year and is just now learning to rewalk using a walker. Today she has not exerted herself and her son carried to the car. No cough or congestion. No fevers or chills. She is on Xarelto for history of atrial fibrillation. She also has high blood pressure, CKD as well as a stroke in the past. No prior history of CAD. She does not smoke. No leg swelling.Here for evaluation.Past Medical History/Immunizations:Past Medical History:Diagnosis DateAsymptomatic bilateral carotid artery stenosisseen on imaging 12/2018Bilateral renal artery stenosis 11/16/2017Stent place in the Left renal arteryChronic combined systolic and diastolic congestive heart failureCKD (chronic kidney disease) stage 3, GFR 30-59 ml/minCVA (cerebral vascular accident)In 40s, reportedly related to thyroid surgeryHTN (hypertension)Hypothyroidismsurgically removed due to goiterNeuropathyTetanus received in last 5 years: UnknownChildhood immunizations: Gk-va-glchJtkgnhtvc:AllergiesAllergen ReactionsPrednisone Other - See commentsAFIBPast Social History:Tobacco UseNever smoked or used smokeless tobacco.Passive Exposure: NeverVaping UseNever usedAlcohol UseNo.Drug UseNo.Sexual ActivityNot currently sexually active.Past Surgical History:Past Surgical History:Procedure Laterality DateAORTOGRAM N/A 06/01/2023Surgeon: Prince Salter MD; [facility] SECTIONCOLON[facility]COPY N/A 11/25/2017Surgeon: Blair Caballero MD; Location: [facility] ([facility]) OR LocationESOPHAGOGASTRODUODENOSCOPY N/A 11/25/2017Surgeon: Blair Caballero MD; Location: Endoscopy ([facility]) OR LocationPHACOEMULSIFICATION OF CATARACT WITH INTRAOCULAR LENS IMPLANT Right 09/07/2018Surgeon: Isiah Garcia MD; [facility] [place] [facility] CATARACT WITH INTRAOCULAR LENS IMPLANT Left 10/12/2018Surgeon: Isiah Garcia MD; Location: [place] OR LocationTHYROIDECTOMY in her 40s.due to goiterTONSILLECTOMYReview of Systems:Review of SystemsConstitutional: Negative for chills and fever.Respiratory: Positive for shortness of breath. Negative for cough.Cardiovascular: Positive for chest pain. Negative for leg swelling.Gastrointestinal: Negative for abdominal pain and vomiting.Musculoskeletal: Negative for arthralgias, neck pain and neck stiffness.Skin: Negative for wound.Neurological: Negative for dizziness.Psychiatric/Behavioral: Negative for agitation.Endocrine: Negative for goiter.Physical Exam:ED Triage Vitals [08/12/23 0718]Weight 50.8 kg (112 lb)Actual or estimated Estimated by patient/family reportHeight 1.499 m (4' 11")BP (!) 204/75Pulse 63Resp 24Temp 35.6 ?C (96 ?F)Temp source OralSpO2 97 %Measured on Room airPhysical ExamVitals and nursing note reviewed.Constitutional:Appearance: Normal appearance. She is normal weight.HENT:Head: Normocephalic and atraumatic.Mouth/Throat:Mouth: Mucous membranes are dry.Cardiovascular:Rate and Rhythm: Normal rate and regular rhythm.Pulses: Normal pulses.Pulmonary:Effort: Pulmonary effort is normal. No respiratory distress.Breath sounds: No stridor. No wheezing or rhonchi.Abdominal:General: There is no distension.Palpations: Abdomen is soft. There is no mass.Tenderness: There is no abdominal tenderness. There is no guarding.Hernia: No hernia is present.Musculoskeletal:General: Normal range of motion.Cervical back: Normal range of motion and neck supple.Right lower leg: No edema.Left lower leg: No edema.Skin:General: Skin is warm and dry.Neurological:General: No focal deficit present.Mental Status: She is alert.Radiology:CT CHEST PULMONARY ANGIOGRAMPreliminary ResultPROCEDURE: CT CHEST ANGIOGRAM WITH INTRAVENOUS CONTRAST. PULMONARYEMBOLISMPROTOCOL.CLINICAL INDICATION: Pulmonary embolism (PE) suspected, unknown D-dimerComparison: NoneTECHNIQUE: Volumetric helical CT angiogram was performed of the chest(lungapices to bases) with IV contrast. Images were reconstructed at 1.25 and2.5 mm slice thickness. Axial MIPs and coronal and sagittal MPR imageswere generated and reviewed.FINDINGS:Devices: NoneHEART AND GREAT VESSELS: The opacification of the pulmonary vasculature isappropriate. No filling defects are seen through the level of thesegmentalpulmonary arteries. The pulmonary trunk is normal in caliber. The thoracicaorta is normal in caliber.The heart is normal in size. No pericardial abnormalities are identified.The RV to LV is normal.MEDIASTINUM AND LOWER NECK: No central airway lesions are detected. Theesophagus is within normal limits. The included thyroid gland appearsnormal.LYMPH NODES: Scattered small lymph nodes in both sides of the mediastinumand hilar regions. No evidence of intrathoracic lymphadenopathy.LUNGS AND PLEURA: The lungs are well-expanded. Bibasilar reticularprominence in groundglass opacities of the posterior lower lungs is noted.No focal consolidation. No suspicious nodules. No pleural abnormalitydetected.VISUALIZED UPPER ABDOMEN: The included solid organs and hollow viscusappear within normal limits.OSSEOUS STRUCTURES AND SOFT TISSUES: No focal osseous lesions aredetected.The soft tissues appear normal. Eccentric atherosclerotic plaque andcalcification of the descending aorta is noted with mild stenosis.IMPRESSIONNo evidence of acute pulmonary embolism through the level of thesubsegmental branches. AIDOC (computer aided detection software) confirmsno filling defects in the pulmonary arteries.Bibasilar reticular thickening likely suggestive of subsegmentalatelectasis. Groundglass opacities of the posterior aspect of the lowerlungs could be due to aspiration changes or atypical infection.Preliminary Report Dictated by Resident: Yessy Hook CHEST 1 VWPreliminary ResultEXAM: XR CHEST 1 VWHISTORY: 78 years-old Female; Provided indication: chest pain .TECHNIQUE: Single frontal view of the chest.COMPARISON: This radiograph dated 05/24/2023FINDINGS:The lungs are well-expanded. Persistent bilateral diffuse interstitiallungmarkings, similar to the prior. No focal consolidation is seen. Slightinterval improvement of the right pleural effusion.Persistent cardiomegaly. Aortic knob calcifications.No focal osseous lesions or acute osseous findings are detected.IMPRESSIONFindings of cardiomegaly trace right pleural effusion and diffusebilateralinterstitial opacities suggestive of pulmonary edema, grossly unchangedcompared to the prior.Preliminary Report Dictated by Resident: Yessy Petty Results:Lab ResultsCBC WITH DIFF - AbnormalResult Value Ref RangeWBC 12.35 (*) 4.30 - 11.10 10*3/?LRBC 4.27 3.93 - 5.25 10*6/?LHGB 13.3 11.6 - 15.0 g/dLHCT 41.9 35.7 - 45.2 %MCV 98.1 (*) 80.6 - 95.5 fLMCH 31.1 25.9 - 32.8 pgMCHC 31.7 31.6 - 35.1 g/dLRDW-SD 56.2 (*) 39.0 - 49.9 fLRDW-CV 15.9 (*) 12.0 - 15.5 %PLT 242 166 - 358 10*3/?LMPV 11.8 9.5 - 12.9 fLNRBC/100 WBC 0.0 0.0 - 10.0 /100 WBCsNRBC x10^3 <0.01 10*3/?LGRAN MAT (NEUT) % 81.9 %IMM GRAN % 0.50 %LYMPH % 7.4 %MONO % 7.2 %EOS % 2.4 %BASO % 0.6 %GRAN MAT x10^3(ANC) 10.11 (*) 1.88 - 7.09 10*3/uLIMM GRAN x10^3 0.06 0.00 - 0.06 10*3/uLLYMPH x10^3 0.91 (*) 1.32 - 3.29 10*3/uLMONO x10^3 0.89 0.33 - 0.92 10*3/uLEOS x10^3 0.30 0.03 - 0.39 10*3/uLBASO x10^3 0.08 (*) 0.01 - 0.07 10*3/uLCOMP. METABOLIC PANEL (75172) - AbnormalNA 136 135 - 145 mmol/LK 4.6 3.5 - 5.0 mmol/LCL 105 98 - 108 mmol/LCO2 TOTAL 25 23 - 31 mmol/LAGAP 6 2 - 16BUN 17 7 - 23 mg/dLGLUCOSE 149 (*) 70 - 110 mg/dLCREATININE 1.17 (*) 0.50 - 1.04 mg/dLTOTAL BILI 0.9 0.1 - 1.1 mg/dLCALCIUM 9.5 8.6 - 10.6 mg/Ángela PROTEIN 7.0 6.3 - 8.2 g/dLALBUMIN 3.9 3.5 - 5.0 g/dLALK PHOS 140 (*) 34 - 122 U/LALTv 13 5 - 35 U/LAST(SGOT) 24 13 - 40 U/LeGFR 48.2 mL/min/1.20r2J-LZHUOZID PRO-BNP - AbnormalNT-proBNP 3,130 (*) <=125 pg/mLTROPONIN I - NormalTROPONIN I 0.006 <=0.034 ng/mLMAGNESIUM - NormalMAGNESIUM 1.9 1.7 - 2.4 mg/dLCOVID-19 (ID NOW RAPID TESTING) - [id number] Rapid ID NOW Not Detected Not DetectedRAPID INFLUENZA A/B - NormalRapid Influenza A Negative NegativeRapid Influenza B Negative NegativeEKG:If EKG completed, see Procedure Note.Orders and Treatments:Orders Placed This EncounterProceduresXR CHEST 1 VWCT CHEST PULMONARY ANGIOGRAMCBC WITH DIFFCOMP. METABOLIC PANEL (68955)TROPONIN IN-TERMINAL OQK-GVQDsrsgtmttDJXSJ-33 (ID NOW TESTING)RAPID INFLUENZA A/BLab Only COVID InterpretationMagnesium SerumPROFILE / HEMOGRAMCBC with DifferentialBASIC METABOLIC PANEL (NA, K, CL, CO2, GLUCOSE, BUN, CREATININE, CA)Lipid Panel(54213)(Total Cholesterol, Triglycerides, HDL)N-TERMINAL PRO-BNPTroponin IConsult CardiologyOrders Placed This EncounterMedicationsnitroglycerin (NITROSTAT) sublingual tablet 0.4 mgFENTanyl PF (SUBLIMAZE (PF)) injection 50 mcgfamotidine (PEPCID (PF)) injection 20 mgalbuterol (PROVENTIL) 2.5 mg /3 mL (0.083 %) nebulizer solution 5 mgiopamidol (ISOVUE 370-500 mL) injection 70 mLclopidogreL (PLAVIX) 75 mg tabletmetoprolol tartrate 50 mg tabletacetaminophen (TYLENOL) tablet 650 mgHYDROcodone-acetaminophen (NORCO 5) 5-325 mg tablet 1 tabletmorpHINE (2 mg/mL) injection 2 mgdocusate (COLACE) capsule 100 mgondansetron (ZOFRAN (PF)) injection 4 mgaspirin chewable tablet 81 mgnitroglycerin (TRANSDERM-NITRO) 0.4 mg/hr patch 1 Patchmetoprolol tartrate (LOPRESSOR) tablet 12.5 mgatorvastatin (LIPITOR) tablet 40 mgpantoprazole (PROTONIX) EC tablet 40 mgalbuterol (PROVENTIL) 2.5 mg /3 mL (0.083 %) nebulizer solution 2.5 mgFirst Provider Eval:ED EventsDate/Time Event User Bceqhtkx40/29/2314 Medical Screening Begins PAM ADLER DO --08/12/23713 First Provider Evaluation PAM ADLER DO --ED COURSEDiagnosis/Impression as of 08/12/23 1445Chest pain, unspecified typeProcedures:EKG-12 Lead ROUTINE ONCEDate/Time: 08/12/2023 7:26 AMPerformed by: Pam Adler DOAuthorized by: Pam Adler DOECG interpreted by ED Physician in the absence of a retirement assistant: yesInterpretation:Interpretation: normalRate:ECG rate: 62ECG rate assessment: normalRhythm:Rhythm: sinus rhythmEctopy:Ectopy: noneQRS:QRS axis: NormalQRS intervals: NormalST segments:ST segments: NormalT waves:T waves: normalQ waves:Abnormal Q-waves: not presentMDM:Medical Decision MakingThe patient presents from home for chest pain that woke her up from sleep around 4 to 5 hours prior to arrival. The pain has been constant substernal and radiates to her left arm. It is worse with deep breathing. She has not ambulated today and was carried to the vehicle by her son. No cough or congestion. No fevers or chills. She did take a [place] around 4:30 AM today but it has not helped. She is history of atrial fibrillation, high blood pressure, CKD as well as a stroke in the past. No prior history of an ME. She does not smoke. She did take her home medications this morning including her Xarelto.The patient is hypertensive here in the ER.Her lungs are clear bilaterally.Her heart is regular rhythm.She has no pitting edema to her bilateral legs.Her EKG shows a normal sinus rhythm, no STEMI.The patient does have risk factors for ACS however her presentation is slightly atypical.Will monitor the patient here in telemetry.Will give nitroglycerin for chest pain.Will check laboratory study as well as chest x-ray.Final disposition pending.0900 - the patient's blood pressure did decrease after one NTG tablet. She reports it caused her a PORTILLO but did not do anything for her chest pain.She complains her pain is worse with deep breathing.She is not tachy, but took her BP meds today, and is already on xarelto however we will obtain a CT chest PE study to evvt for this.Will need admission later on.1130 -the patient is doing well here in the ER.The CT of her chest shows no acute pulmonary embolism.Spoke with Dr. Richey with internal medicine service the patient was accepted for admission for continued management.Problems Addressed:Chest pain, unspecified type: acute illness or injuryAmount and/or Complexity of Data ReviewedLabs: ordered. Decision-making details documented in ED Course.Radiology: ordered and independent interpretation performed. Decision-making details documented in ED Course.ECG/medicine tests: ordered and independent interpretation performed. Decision-making details documented in ED Course.RiskPrescription drug management.Parenteral controlled substances.Decision regarding hospitalization.Flowsheet Documentation:Scoring Tools:No data recordedDisposition/Condition:ED DispositionED DispositionAdmit - ObservationCondition--CommentIs (or was) this a planned re-admission?: NoTreatment Team: [facility] [[id number]]Is this patient COVID positive or a patient under investigation (PUI)?: NoDischarge Medications:Current Discharge Medication ListSTOP taking these medicationsclopidogreL (PLAVIX) 75 mg tablet Comments:Reason for Stopping:metoprolol tartrate 50 mg tablet Comments:Reason for Stopping:amiodarone 100 mg tablet Comments:Reason for Stopping:rivaroxaban (XARELTO) 15 mg tablet Comments:Reason for Stopping:polyethylene glycol 3350 (MIRALAX) 17 gram/dose powder Comments:Reason for Stopping:levothyroxine 88 mcg tablet Comments:Reason for Stopping:acetaminophen-codeine 300-30 mg tablet Comments:Reason for Stopping:Follow-up:Electronically signed by:Pam Adler DO08/12/23 1445 70926-1Xepzsfgqx Emergency department NmydLR7931-76-57S90:45:33Physician Emergency department NoteTXT1.2.840.346058.1.13.104.2.7.2.727 879|[id number] for patient nntq33199-4Oinpbqbpf department NoteLNNARRATIVEFormatted C-CDA narrative textEMCARE EMERGENCY PHYSICIAN STAFFEMCARE EMERGENCY PHYSICIAN STAFF[address] Ou[id number] UBRETFFOLWTSKCFKFF6461-81-40G90:45:331.2 .840.902421.1.72.3.15|1.2.840.451514.1.1 3.104.2.7.2.727879_[id number] [facility] 2023-08-11 09:20:00 7XsBtjOyTGSX9chlhWQru79pMIeyo1eNvc6JfoWn oASPEDv5koJhmqJ3uZ4AvhK08271-27-23S21:20 :00Addended by: XIOMARA HAINES on: 08/11/2023 04:27 PMModules accepted: Orders 05560-5Ymubnffc MofxeubmUP3205-40-49G85:27:01Addendum DocumentTXT1.2.840.680509.1.13.104.2.7.2 .925180|[id number] for patient aifn73601-9TbkqGCXIJHOQSHHJtiqjnmqw C-CDA narrative iuog593342760Dvtomqm Haines POLINA[address] Kihr[id number] YFFQPHHVEFBWUWQOFG3004-01-84P76:27:011.2 .840.314156.1.72.3.15|1.2.840.049001.1.1 3.104.2.7.2.727879_[id number] Xiomara Gadiel MACARIO [facility] 2023-08-05 12:54:45 68fHsH91rRVohZPnnPELmfniaX5EhRoAhNTXZi9U DNxDR3B1+kn+QrmskyfppPBb2815-12-46F28:54 :45 Images from the original note were not included.Patient's daughter notified of results. Margarita verbalized understanding of results/recommendations via teach back. No further questions or concerns at this time.Andrew Astudillo MD P Cardiology NurseCMP within acceptable stable limits except mildly elevated alkaline phosphatase noted to May 2023. Recommended follow-up with PCP for mild LFTs abnormality.Improving BNP noted. Currently at 4430. Previously noted to be at 8510.CBC within acceptable stable limits.Continue the current cardiac medication without any further changes. Follow-up as EP as already scheduled in July. 64740-6Pqizcjwra encounter NpsaXK8942-99-82Q28:55:23Telephone encounter NoteTXT1.2.840.911392.1.13.104.2.7.2.727 879|[id number] for patient tfsv24508-1HvyvMAEDZWTSSYDFfdreqfqg C-CDA narrative [id number] Sheavly [id number] FERREIRAAJRYLLMPZLRDKAQFYA7867-58-63E66:55:231.2 .840.947746.1.72.3.15|1.2.840.269733.1.1 3.104.2.7.2.727879_[id number] Ailyn Parker [facility] 2023-05-02 10:00:37 TSXB4r2YUmeWHwbkrjmMb2zlvdi8474+T7o5lWLY JDHgTl8oN+X2niV2jd23YVv79425-48-94E43:00 :37 Forwarding to Parrish Garcia DNP for advisement. 34820-6Dnzduzeaz encounter NqqhWL6508-49-73Z21:02:23Telephone encounter NoteTXT1.2.840.744990.1.13.104.2.7.2.727 879|[id number] for patient clvb80107-1DrbyJX587732658Bfpjai J Findley [id number] SANTIAGOXFKDHQIFFGKZKQDZLC6142-83-97R90:02:231.2 .840.497702.1.72.3.15|1.2.840.463287.1.1 3.104.2.7.2.727879_[id number] Malini Gordillo [employer]IQUE COUNTER MANAGER [facility] 2023-05-02 08:05:57 Ilk6RyVkCS/eaB83Mi3rdI6yP12FsFGsb3Z2J6dU SJwm5Nn7b6G5jvoC1tuZJQaz0196-19-60S81:05 :57 Patient's daughter has reviewed results on My Chart. Attempted to call patient and daughter. LVM to patient with results and advised her to call back with any questions. She has standing orders for INR. INR noted to be at 1.6 and dated 04/28/2023.Recommend continue warfarin at 1.25 mg daily. Repeat INR check on 05/05/2023. Written by Andrew Astudillo MD on 04/29/2023 3:14 PM CDTSeen by proxy Margarita Welch on 04/29/2023 6:42 PM 47370-7Kwowukqty encounter IzhmYY9156-64-56R19:10:48Telephone encounter NoteTXT1.2.840.492020.1.13.104.2.7.2.727 879|[id number] for patient ttwo34640-8GmrwSH831524459Drrp [place] SABA[address] EmxjNvbzgwanwXpemtasqnABZD9027768626PCDT OIGTSJJHNFGGEDDTLV2356-90-67Y82:10:481.2 .840.173826.1.72.3.15|1.2.840.807581.1.1 3.104.2.7.2.727879_[id number] Ailyn Parker RN [facility] 2023-04-28 10:45:00 NXhY86w9oFXhGqknvjujFzC8LnnU4MY6LUb0vyco ob35ZcpEZniyCYkV4h5uoXtM8048-24-83L32:45 :00 Images from the original note were not included.Venipuncture collection performed by clean technique on the right anticubitus. Total of 1 attempts were made. Slight pressure and a bandage/dressing were applied to the site(s). The patient experienced no complications. The following specimens were processed according to instructions and sent to [facility] laboratories per lab order on 04/28/2023:Only INR for dr rayne Underwood is aware of other labs and will be back at a later dateLilliam Griffin 04/28/2023 10:54 AM LT BLUE 1 SST RED LAV PPT DK GREEN (LiHep) DK GREEN (SodH) FRASER DK BLUE (K2) DK BLUE (S) ACD Blood Culture NIPT/NTD 71823-5Onkep PfbnAJ9060-76-07H50:55:28Nurse NoteTXT1.2.840.310122.1.13.104.2.7.2.727 879|[id number] for patient dvaz86881-8Ezrsn NoteLNUT[address] HmqlOtkdichknHwnldlrdqZQAN7918292864NTVB VEDZDNIESTECGBFCMZ4378-68-06S32:55:281.2 .840.455620.1.72.3.15|1.2.840.020619.1.1 3.104.2.7.2.727879_[id number] [facility] 2023-04-25 13:37:44 l7AbsoMM9gouRyEhgv9k/XtSfdaFb4OmoiTZ1bP4 LoPAuHOhYt6jmKbyIxfXKUFD4035-92-46D56:37 :44 Called patient back for results patient verbalized understanding with no further questions. 41439-8Fmlvrhyns encounter YwycKL1488-76-77L02:38:33Telephone encounter NoteTXT1.2.840.584426.1.13.104.2.7.2.727 879|[id number] for patient vdnt86176-3MvyjAO365534220Lqrqede Gadiel [id number] TEQHJBVOBOABCUPUWJ7799-78-80C57:38:331.2 .840.993003.1.72.3.15|1.2.840.101335.1.1 3.104.2.7.2.727879_[id number] Xiomara Gadiel MACARIO [facility] 2023-04-25 08:46:46 AuzNQgdd6hb4CMod1deWz8Dn026HoDPKxiE6x1ZK ucyj4V8nza1NCPq9RJIDtUxp3820-06-13R56:46 :46 Images from the original note were not included.Attempted to call patient for results all numbers says mailbox full, will try back later Andrew Astudillo MD P Cardiology NurseINR noted to be 2.3 dated 04/22/2023. Recommend restarting warfarin at 1.25 mg daily. Repeat INR check on 04/28/2023. 22954-0Squhcxflt encounter WmfvTB3077-59-21Z98:49:37Telephone encounter NoteTXT1.2.840.473428.1.13.104.2.7.2.727 879|[id number] for patient bpey87456-9BxeiVUQDCIVLWM[id number] RILREXDWHKLGQPTDVZ0911-25-52Y16:49:371.2 .840.851203.1.72.3.15|1.2.840.214020.1.1 3.104.2.7.2.727879_[id number] [facility] 2023-04-22 08:15:00 L9Zom650QrMzbcWAKa/uVToJUUnHSm9qvN3mmm6a BcQoedOfR5pBnFVaYhN8XDaU2567-25-29A31:15 :00 Images from the original note were not included.Venipuncture collection performed by clean technique on the right anticubitus. Total of 1 attempts were made. Slight pressure and a bandage/dressing were applied to the site(s). The patient experienced no complications. The following specimens were processed according to instructions and sent to [facility] laboratories per lab order on 04/22/2023:Only INR for dr rayne vazquezPt will return for other labsLilliam Griffin 04/22/2023 8:18 AM LT BLUE 1 SST RED LAV PPT DK GREEN (LiHep) DK GREEN (SodH) FRASER DK BLUE (K2) DK BLUE (S) ACD Blood Culture NIPT/NTD 83843-9Uvoso OvqlXH4066-38-36U77:23:56Nurse NoteTXT1.2.840.675965.1.13.104.2.7.2.727 879|[id number] for patient qwhb36472-1Ruhqk NoteLNUT[address] TbhwNgdtnuzlrVfvvfvaylVDIG3978487229TJHQ TCFHDSGKEZIWKUEQKO4628-41-52J73:23:561.2 .840.276037.1.72.3.15|1.2.840.372360.1.1 3.104.2.7.2.727879_[id number] [facility] 2023-04-20 10:51:36 kp8TPVZ+hDoxf94GgdO9W5qdfy/1mycMQPe+94UE hvJ/TlPt4IwsIc6TXJwc+HU52514-66-58F69:51 :36 Patient notified of medication sent to pharmacy and provider recommendations regarding constipation. Patient verbalized understanding and agreed with recommendations. 06046-5Ahujqrhiy encounter DqybCY9636-23-33S05:53:02Telephone encounter NoteTXT1.2.840.214814.1.13.104.2.7.2.727 879|[id number] for patient quyf94792-8JtkjML882446462Czazxsmx [place] [id number] BARJALUAUQKOWGOFKR2209-23-51K95:53:021.2 .840.571761.1.72.3.15|1.2.840.832710.1.1 3.104.2.7.2.727879_[id number] Temitope Weeks RN [facility] 2023-04-19 16:21:13 at+xx0cn/8KfmGmgBJTt2KhOSv6uHQ7FqArRN40j /9OUi1S9fViy6ALP9XTrBy+Z2559-06-38D52:21 :13 Medications have been resent to pharmacyRecommend over the counter stool softeners such as Colace and Miralax for constipation 86279-0Vttrwxlae encounter TpcgMZ6901-01-21D73:21:44Telephone encounter NoteTXT1.2.840.787396.1.13.104.2.7.2.727 879|[id number] for patient vhkd87615-3JqnyYOTYDXRJMI[id number] SORENSENCDYDDCRUGLXQWMEEJM9369-22-48K04:21:441.2 .840.927594.1.72.3.15|1.2.840.319235.1.1 3.104.2.7.2.727879_[id number] [facility] 2023-04-19 16:11:18 mYrn1/GrimaIK86CNXEJCLTuzTpyTnAvmDDaJyF8 jV4Oa5NwyEMKMJLIHBWmJXqV4656-82-43G44:11 :18 Notified patient of INR 5.3, orders to hold Warfarin until results of INR on TuesdayVerbalized understanding via teach back 49535-6Haamgnwcy encounter SsmwKF1177-69-32W56:20:38Telephone encounter NoteTXT1.2.840.135410.1.13.104.2.7.2.727 879|[id number] for patient jfxq74272-7OszfTV859345205Uxvrl A Roller RNUT[address] MeajClczwaicaSojidlmbsHLYM3397012621TJXS UPGAZVYXDMXETWQWHT4194-00-78H80:20:381.2 .840.872375.1.72.3.15|1.2.840.284742.1.1 3.104.2.7.2.727879_[id number] An Correa RN [facility] 2023-04-19 15:59:46 tDIht2THeHhGtF80X6OlY7dGvdF4xJhMVizgwAU0 9Aed/zbSKfwAXYuqFpe4Tpm13033-75-10C30:59 :46 INR noted today at 5.3.Please ask her to hold warfarin until . Repeat lab to be checked on Tuesday.Current warfarin dose: alternating 2.5 mg / 1.25 mg every other day. 59608-6Mhettnioo encounter HdviAD9001-96-02V05:00:55Telephone encounter NoteTXT1.2.840.439934.1.13.104.2.7.2.727 879|[id number] for patient xcru36844-9WvfzIGNVTXPCQE[id number] SANTIAGOKBFYAHZFYBWYLBNRUG1724-77-50P44:00:551.2 .840.537779.1.72.3.15|1.2.840.236142.1.1 3.104.2.7.2.727879_[id number] [facility] 2023-04-19 14:27:24 YyPJ4r+/fNGhecRv9WtCrfhFAkSiMCGdT60KDOWF igJnYUVPGRXGFg73KbHRRZYA3202-41-35Y68:27 :24 Pt is have pain, 10 on pain scale.Pain in mid lower back. Routing to provider for further assistance. Maria Alejandra Castillo LVN 04/19/2023 2:27 PM 22041-6Zrscztyyf encounter TbzsRM3261-02-17L48:31:27Telephone encounter NoteTXT1.2.840.538931.1.13.104.2.7.2.727 879|9990693754BTUyxcqqlvb for patient wtvr88223-7BrepMU111740658Xelul C [place] [id number] SANTIAGOJGFWCXXAEFUPIOUIFX7370-03-56T97:31:271.2 .840.791198.1.72.3.15|1.2.840.935561.1.1 3.104.2.7.2.727879_[id number] Maria Alejandra Castillo LVN [facility] 2023-04-19 12:10:54 eMgre8cAsADGMHdBXwZNHXCmkZuz8QbsZVfWJf4Z 322kM6/iOXmmd8PuymBcHCJv0275-16-89B43:10 :54 Requesting refill on medication called into the [facility] in [place]. Also refill on Hydrocodone. 81952-0Hiypisicm encounter MmzcVV1660-75-49Y88:14:56Telephone encounter NoteTXT1.2.840.922208.1.13.104.2.7.2.727 879|4441318669XDFsjwwptmn for patient hjia54259-0VeygFG832191492Sctgfm O Gaona[address]TXTX[address]75[address]USUS QMKLAZTNCJZJAPOFWI1823-76-84E95:14:561.2 .840.865286.1.72.3.15|1.2.840.582205.1.1 3.104.2.7.2.727879_[id number] Yvonne Goss [facility] 2023-04-19 11:30:00 qw+ewNeOijlSPSXTDPPp2t5oxqZnSGAP9Ub2/kw5 sVJUenJCwhhEOjHEo/ik5u2f8308-01-91I45:30 :00 Images from the original note were not included.Pt only wanted Astudillo orders drawn.Venipuncture collection performed by clean technique on the right anticubitus. Total of 1 attempts were made. Slight pressure and a bandage/dressing were applied to the site(s). The patient experienced no complications. The following specimens were processed according to instructions and sent to [facility] laboratories per lab order on 04/19/2023: LT BLUE 1 SST RED LAV PPT DK GREEN (LiHep) DK GREEN (SodH) FRASER DK BLUE (K2) DK BLUE (S) ACD Blood Culture NIPT/NTD 13691-2Tofwx BzuoIF6715-34-60A51:52:19Nurse NoteTXT1.2.840.110802.1.13.104.2.7.2.727 879|[id number] for patient zdci30268-5Czetk [id number] RHCZSKXDHTWZKZBBKJ0470-30-94Z05:52:191.2 .840.967629.1.72.3.15|1.2.840.130110.1.1 3.104.2.7.2.727879_[id number] [facility] 2023-04-19 07:41:15 Q+ioYF7sIU+9JY449AlUVSRq/UP+9WTf3Jl0nDuT xcIa5VTCQrFhGNsQlHh+Eygb5960-35-70Z88:41 :15 Pt son is calling says med have not been called in and also want med for constipation says otc med has not been working 30606-1Yuldiopfi encounter AvppEU9625-56-58U83:42:18Telephone encounter NoteTXT1.2.840.862096.1.13.104.2.7.2.727 879|[id number] for patient gxvr43126-7VczsPJ929840065Ecvko [id number] KNYIHSRDITOSXNMOSG6857-20-15Q48:42:181.2 .840.925078.1.72.3.15|1.2.840.996968.1.1 3.104.2.7.2.727879_[id number] Debbie Cardoza [facility] 2023-04-15 16:07:19 yjqdZiMv72dOqFWJbDSlVQ5rdvPwZa1yr8Nkm+ AnjBfYEttjrjgIm74IaWkBmn0486-88-59Z94:07 :19 Spoke with patient. She verified that she is taking dose that was prescribed when she was recently discharged from the hospital: 2.5 mg tablet daily Patient verbalized understanding via teach back of Dr. Astudillo's recommendations to alternate whole and half tablet daily, starting tonight with a half tablet.She was not able to get home health arrange due to cost. She will arrange a ride to have her INR checked on Tuesday04/19/23. Her appointment with EP was moved up to April 23 98887-8Pzlefjxsh encounter YsfrEW3182-47-28Z07:11:38Telephone encounter NoteTXT1.2.840.502918.1.13.104.2.7.2.727 879|[id number] for patient tdaq04447-7OklhIY473407517Euod Sheavly RN[address] IhkvYgibzbdxqIwmnyxgziKXVZ6409741178MABD VUZEISUEWZSIXVLWEA7417-49-63E12:11:381.2 .840.948309.1.72.3.15|1.2.840.767876.1.1 3.104.2.7.2.727879_[id number] Ailyn Parker RN [facility] 2023-04-15 15:06:02 YShoUSe6CCjD3o216nwrvVuyuuhT13I8BJzTK7nr xBO5ZoGAQzdbVW4LkLBMCUKB4066-41-16O12:06 :02 INR noted to be 4.0 noted to be today dated 04/15/2023.Patient was discharged on 04/08/2023 on 2.5 mg warfarin. Please verify the dose. If so, please ask her to start alternating 2.5 mg / 1.25 mg every other day. Repeat INR check on 04/19/2023 in the hospital or via home health if it is already arranged at home.Please also see if we can arrange an earlier appointment with the EP than already scheduled in June. She had recurrent A-fib when she was recently admitted in the hospital and seen by Dr. Malhotra. 14468-1Shjhlamwa encounter LwqpVO5337-37-35T96:06:24Telephone encounter NoteTXT1.2.840.568694.1.13.104.2.7.2.727 879|[id number] for patient jnoh43982-7PxmbKBUTLCPGVN[id number] RKGIBKJYWXZEIPZYOB0893-91-41N50:06:241.2 .840.057333.1.72.3.15|1.2.840.206746.1.1 3.104.2.7.2.727879_[id number] [facility] 2023-04-15 14:52:12 /gM4/EqOZtmD2u38KhNnzSuysOFbGccrmk9bb3yD yqYKdo4NZ89syheUb+EeAYbJ4827-43-21W51:52 :12 Pt called and states that she is supposed to be having pain medication called in for her. Please advise. Please yael pt when this has been addressed. [id number] - [place], [place] - [facility] AT [facility] [address]I PINONPhone: Fewfkwqhbpdzgj signed by Rosi Lundy at 04/15/2023 2:53 PM BSN24465-5Vvhqcyada encounter FjkdYS7399-36-42Q02:53:25Telephone encounter NoteTXT1.2.840.049250.1.13.104.2.7.2.727 879|[id number] for patient gfyp03817-9EvioME80584954Oovzmdb R [facility] NxavYqsxsflieTagewskxhGZUL2099670735CDDS PBYOLBMAIXMCDMGYCJ5088-82-50Q00:53:251.2 .840.322448.1.72.3.15|1.2.840.231326.1.1 3.104.2.7.2.727879_[id number] Rosi Lundy [facility] 2023-04-15 10:45:00 brs6zvoY/lZaJxM2SxzO8rFH2PlPyx3CS7Wk7BgF l5aQdu0525EhzB+Ty2PqVD3x2462-24-59E77:45 :00 Images from the original note were not included.Venipuncture collection performed by clean technique on the right anticubitus. Total of 1 attempts were made. Slight pressure and a bandage/dressing were applied to the site(s). The patient experienced no complications. The following specimens were processed according to instructions and sent to [facility] laboratories per lab order on 04/15/2023: LT BLUE 1 SST RED LAV PPT DK GREEN (LiHep) DK GREEN (SodH) FRASER DK BLUE (K2) DK BLUE (S) ACD Blood Culture NIPT/NTD Patient has been identified by and was provided with cup, antiseptic towelette, and clean catch instructions. 1 urine specimen(s) sent. Unpreserved 1 Urine Culture Aptima tube Other urine 94201-4Sbksj AggbRL7422-59-19M75:10:45Nurse NoteTXT1.2.840.290234.1.13.104.2.7.2.727 879|[id number] for patient anzj52996-8Vjqmb [id number] FERREIRASEHYDZZXHJLENKJCYX1635-06-83K02:10:451.2 .840.918205.1.72.3.15|1.2.840.074838.1.1 3.104.2.7.2.727879_[id number] [facility] 2023-04-15 10:30:00 k1iuHoOASwyJIITEmlHEQ7GE4Qn1nmCLcvZXADx1 9/BPuM6G1b0TtLUb75uJsR6856-96-34K04:30 :00 Addended by: PATTY POWERS on: 04/18/2023 11:36 AM Modules accepted: Orders [id number] CxdvbcoeJD3001-98-04X97:36:13Addendum DocumentTXT1.2.840.972431.1.13.104.2.7.2 .861391|[id number] for patient ylni42215-3AewsEXNLTZXXFX[id number] TOROWPCUIXTXQIFMDGZGKX4321-02-67Q77:36:131.2 .840.554242.1.72.3.15|1.2.840.910793.1.1 3.104.2.7.2.727879_[id number] [facility] 2023-04-11 13:43:19 6nMkZQfPGV7aUNgJk+QbDMPWjJV/aMvEb2Ddy8ct TZdtJUE/SnpFT1EhGpGD9Xv15924-18-53S98:43 :19 TRANSITIONAL CARE MANAGEMENT ASSESSMENT04/11/2023 Lovely Welch793296PKatgermaine Welch is a 78 year old /White female was admitted on 04/06/23 to [facility], [facility]. She was discharged on 04/08/23 with discharge disposition of HR- Routine Discharge.Admitting Physician: Shala Nicole Diagnosis: Chronic A. Fib/Flutter with RVRSubtherapeutic INRNo linked episodesTCM Lso-mbeg-vz-face outreach documentation:Discharge AssessmentChart Assessed: 04/11/23TCM Outreach Completed: 04/11/23Do you have a few minutes to speak with me about how you are doing at home?: Yes (Patient stated not too good complain of back pain.CM informed patient that she has pain medication called into [facility] pharmacy. Patient was not aware)Discharge InstructionsDo you understand your at-home instructions?: YesMedicationsHave you filled your prescriptions and do you have them in your home? : No (Patient will have family member to cloth picker prescriptions)Do you know how to take your medications?: YesSuppliesDid you receive applicable home medical supplies/equipment?: N/AFollow Up AppointmentHas a follow up appointment been scheduled?: YesDo you have any questions about your follow up appointments?: NoAre you able to get to your appointment? Who will be taking you?: Yes (family member)Home Health AssistanceHas the home health nurse contacted you since you've been home?: N/ASurvey - RecognitionIs there anything you would like to share about your recent hospitalization, or anyone you would like to recognize?: NoDo you have any suggestions for improvement?: NoDo you have any other questions or concerns at this time?: NoFuture Appointments: Future Appointments Provider Department Dept Phone 04/15/2023 10:30 AM Willard Bravo PAC [facility], [place] [phone] 04/15/2023 12:30 PM Britni Tabares FNP [facility] [place] [phone] 05/03/2023 10:00 AM Parrish Dumont DNP [facility] [phone] 06/16/2023 1:20 PM Santiago Villatoro MD [facility] [phone] 06/22/2023 3:00 PM Kallie Morrison AGNP [facility] [phone] 68972-6Hvfrwwqso encounter OtjlOE2061-27-14U38:43:40Telephone encounter NoteTXT1.2.840.905893.1.13.104.2.7.2.727 879|[id number] for patient [id number] B Porter RN[id number] QJDFGGYCMASYCBCATF9734-34-79L78:43:401.2 .840.861460.1.72.3.15|1.2.840.699312.1.1 3.104.2.7.2.727879_[id number] Jennifer Noland RN [facility] 2023-04-08 15:09:41 Rr3ur8kERdNSCDngbFhlt0Dm3Hmf4JN2mi83o0u9 7JJzNq6VWyU7lbklZDGLOib68214-20-46J47:09 :41 Addended by: PARRISH RAMÍREZ on: 04/08/2023 03:09 PM Modules accepted: Orders 35232-0Fuidfofe DpddwxvbAO2575-40-04M76:09:41Addendum DocumentTXT1.2.840.424009.1.13.104.2.7.2 .604113|[id number] for patient ytnj61113-0NtdtSSIJRSIFGJ[id number] FERREIRAXKOFZMINLZSDUBZWUJ4527-72-52X89:09:411.2 .840.341132.1.72.3.15|1.2.840.529733.1.1 3.104.2.7.2.727879_[id number] [facility] 2023-04-08 12:51:32 Jxs15OjYj25KBbXzCS7nZy/Q28xI1sLfh2c/0Y3c vMLaWxDA6d02jhXGcVMuDX3U1830-56-22C75:51 :32 Problem: Infection RiskGoal: Absence of infectionOutcome: Progressing as expected Problem: Discharge PlanningGoal: Adequate for dischargeOutcome: Progressing as expectedGoal: Effective communicationOutcome: Progressing as expected Problem: Discharge PlanningGoal: Adequate to move to next level of careOutcome: Progressing as expectedGoal: Knowledge of medication managementOutcome: Progressing as expected Problem: Falls, Risk ofGoal: Absence of fallsOutcome: Progressing as expected 49979-9Zhcu of care miryLZ9694-12-17A56:51:34Plan of care noteTXT1.2.840.878140.1.13.104.2.7.2.727 879|[id number] for patient [id number] Pena RN[address] Pm[id number] AXMTVXGONMTZCLTGEY9050-64-65B54:51:341.2 .840.992114.1.72.3.15|1.2.840.298362.1.1 3.104.2.7.2.727879_[id number] Susan Beck RN [facility] 2023-04-08 12:18:31 fb8tZKYF2kgyq/C8/gPBYVmywhFM4niN57f5n+1W 8KewBMt7m8RF1ZW3DtRPDCJv3953-35-46R21:18 :31Summary: Warfarin Monitoring Pharmacy Note for Warfarin MonitoringPharmacy to monitor warfarin dosing for patient Lovely Welch, [id number]. Indication: Afib Goal INR: 2.0-3.0 Warfarin dosage prior to admission: Warfarin 5 mg PO daily Most recent INR: 2.2Current warfarin dosage: Warfarin 3 mg PO daily Labs ReviewedDate INR Warfarin Dose Received Reversal Agents if given 04/06/23 1.9 3 mg PO given @ 1727 04/07/23 2.2 2.5 mg PO scheduled for 1700 In addition, SCr, Hgb and Platelets were reviewed. Scr 1.63, Hbg/Plts 13.5/241Bridging anticoagulation: Not indicated Significant drug-drug interaction(s): Ezetimibe may enhance the anticoagulant effect of WarfarinCorticosteroids - (Systemic) may enhance the anticoagulant effect of Vitamin K AntagonistsGI/Diet Changes: reviewed, decreased intake (refused meals on 04/07/23) Temp Changes: reviewed, stableRecommendations: Noted supratherapeutic INR of >13.3 on 04/01/23. Pt received 5 mg of vitamin K PO for reversal in the ER. Pt recently completed methylprednisolone dose pack, noted DDI and effect on INR. Pt with previous supatherapeutic INR when on a warfarin 5 mg daily regimen. INR returned today at 2.2, which is therapeutic within goal. Hbg/Plts stable. No reported signs or symptoms of bleeding. Significant increase in INR by 0.3 in 24 hours. JULI Hi. Decrease dose to warfarin 2.5 mg PO @ 1700 daily. Monitor and trend INR daily. Pharmacy will continue to monitor patient while in house and make recommendations as needed. Monalisa Jain PharmD, [facility] Xxiqi: [phone]/ 12:18 90428-5Synxi DqglVO9579-33-44E82:22:08Nurse NoteTXT1.2.840.709021.1.13.104.2.7.2.727 879|[id number] for patient uwtm59960-9GgewJQ655287922Zlimlg Marie P Sled [id number] BAZEDXZHJHXUEPTQHJ8798-67-44V19:22:081.2 .840.579139.1.72.3.15|1.2.840.872861.1.1 3.104.2.7.2.727879_[id number] Monalisa Jain [facility] 2023-04-07 21:58:05 QXSRKIqWCUXrkeTUd830U0fL95B0DXYcMBvQsf9+ TZ49oso6s1jWaSpH3r+M2d755573-77-62C43:58 :05 Problem: Infection RiskGoal: Absence of infectionOutcome: Progressing as expected Problem: Discharge PlanningGoal: Adequate for dischargeOutcome: Progressing as expectedGoal: Effective communicationOutcome: Progressing as expected Problem: Discharge PlanningGoal: Adequate to move to next level of careOutcome: Progressing as expectedGoal: Knowledge of medication managementOutcome: Progressing as expected Problem: Falls, Risk ofGoal: Absence of fallsOutcome: Progressing as expected 71854-9Acef of care wmrqSH7976-95-52O41:58:10Plan of care noteTXT1.2.840.588591.1.13.104.2.7.2.727 879|[id number] for patient nnax95527-0SggmXJKPUCWYQJ[address] [id number] FERREIRAJPAOTWPWBTDPZVVHPZ0284-33-64Q49:58:101.2 .840.608943.1.72.3.15|1.2.840.831217.1.1 3.104.2.7.2.727879_[id number] [facility] 2023-04-07 17:22:52 M+cBzAxcUHs7sqvw0EbbuJXq3ZrIgO3SFFwdXSUx 3Ddgqev//BKOrpVlW5nIY7Xl3547-93-05G74:22 :52 Problem: Infection RiskGoal: Absence of infectionOutcome: Progressing as expected Problem: Discharge PlanningGoal: Adequate for dischargeOutcome: Progressing as expectedGoal: Effective communicationOutcome: Progressing as expected Problem: Discharge PlanningGoal: Adequate to move to next level of careOutcome: Progressing as expectedGoal: Knowledge of medication managementOutcome: Progressing as expected Problem: Falls, Risk ofGoal: Absence of fallsOutcome: Progressing as expected 20024-7Ajdr of care foyoEY6241-56-55G39:22:55Plan of care noteTXT1.2.840.195171.1.13.104.2.7.2.727 879|[id number] for patient ulpe22479-8QvhuEJ731796156Jdviwbf B Vanier RN[id number] FERREIRAJIEKHSRVOJACAALZON4266-32-79I53:22:551.2 .840.039561.1.72.3.15|1.2.840.399746.1.1 3.104.2.7.2.727879_[id number] Ne Lujan RN [facility] 2023-04-07 11:59:14 R+Tls0pVTz5eRfQt1BCdr2fi6s+3KIpFZ4r5RQ5/ rFJXz2Ls4pbQvGq7CveADpWo3608-08-45H94:59 :14Summary: Warfarin Monitoring Pharmacy Note for Warfarin MonitoringPharmacy to monitor warfarin dosing for patient Lovely Blanco Welch, [id number]. Indication: Afib Goal INR: 2.0-3.0 Warfarin dosage prior to admission: Warfarin 5 mg PO daily Most recent INR: 1.9 Current warfarin dosage: Warfarin 5 mg PO daily Labs ReviewedDate INR Warfarin Dose Received Reversal Agents if given 04/06/23 1.9 3 mg PO scheduled for 1700 In addition, SCr, Hgb and Platelets were reviewed. Scr 1.55, Hbg/Plts 14.8/306Bridging anticoagulation: Not indicated Significant drug-drug interaction(s): Ezetimibe may enhance the anticoagulant effect of WarfarinCorticosteroids - (Systemic) may enhance the anticoagulant effect of Vitamin K AntagonistsGI/Diet Changes: reviewed, no dietary changesTemp Changes: reviewed, stableRecommendations: Noted supratherapeutic INR of >13.3 on 04/01/23. Pt received 5 mg of vitamin K PO for reversal in the ER. Pt recently completed methylprednisolone dose pack, noted DDI and effect on INR. Pt with previous supatherapeutic INR when on a warfarin 5 mg daily regimen. INR returned today 1.9, which is subtherapeutic. Hbg/Plts stable. No reported signs or symptoms of bleeding. JULI Hi. Initiate patient on warfarin 3 mg PO @ 1700 today. Monitor and trend INR daily. Pharmacy will continue to monitor patient while in house and make recommendations as needed. Monalisa Jain PharmD, [facility] Mxjmo: [phone]/ 12:14 48330-4Ekfay QdqoGN2942-49-26G93:50:08Nurse NoteTXT1.2.840.190872.1.13.104.2.7.2.727 879|[id number] for patient [id number] QWSCUVJJSAVWOKGQUH7755-56-76R40:50:081.2 .840.572138.1.72.3.15|1.2.840.068155.1.1 3.104.2.7.2.727879_[id number] [facility] 2023-04-07 02:14:37 XGQyay2yKyB9ZoO52W68TVNcNjb1qLhte3u8X9BB Cv2t5/LgbhqSYu2dqfdGFHgy0426-90-29E95:14 :37 Problem: Infection RiskGoal: Absence of infectionOutcome: Progressing as expected Problem: Discharge PlanningGoal: Adequate for dischargeOutcome: Progressing as expectedGoal: Effective communicationOutcome: Progressing as expected Problem: Falls, Risk ofGoal: Absence of fallsOutcome: Progressing as expected 71606-7Ojdm of care qgyyIH3489-58-70N01:14:43Plan of care noteTXT1.2.840.301683.1.13.104.2.7.2.727 879|[id number] for patient [id number] XKWQASVWJRHZVMFKBA9601-47-21D90:14:431.2 .840.320056.1.72.3.15|1.2.840.567946.1.1 3.104.2.7.2.727879_[id number] [facility] 2023-04-06 23:57:20 g2P6dH2igQWUi1qJRcYuo3084g6N+K3kbj5CWusn KGr2MXsDKFIQg61981ogcXeL6294-41-13S43:57 :20 Nurse Report Report given to SANDRA Webb. Chief complaint, assessment findings, infusion verify and orders reviewed. Plan of care discussed [place] [address]-1Cflfjnykn department RjazBQ0899-20-56I77:57:41[facility] NoteTXT1.2.840.392859.1.13.104.2.7.2.727 879|[id number] for patient hfry75871-9RomiHJ821380954Psosuzhl M Felix RN[address] RnazTztipnmatFueycbgfsVALV2510072030YVPT FENGMOSXBIOXEJVNNI9501-43-30R44:57:411.2 .840.871280.1.72.3.15|1.2.840.358057.1.1 3.104.2.7.2.727879_[id number] Soledad Hill RN [facility] 2023-04-06 20:56:00 +mEOfeAl/lNIYCFrIDe+mmn2OLcIaBVz6eVN9wL4 xnwXPGxKnK+BvS+n/VBF32MB2816-77-73O96:56 :00 Patient's daughter states: "Midsternal chest pain and SOB started an hour ago. She took a muscle relaxer, hydrocodone, steroid pills and half of her carvedilol before we got here. She has h/o Afib on Warfarin but it was stopped by Dr. Astudillo about a week ago for her high INR." 68947-7Gilctvddd department Triage myeyGZ0716-58-30Y15:17:10[facility] Triage noteTXT1.2.840.527180.1.13.104.2.7.2.727 879|[id number] for patient nkke80684-4Rpdirsoow department EwsqDJ156070424Ftwqnnwj C Heredia RN[address] QymdYvxvuugkxOmhmpzokhFUBC4837850238EAKE CJSZYUGHLOGOVHJAPI2768-35-18U41:17:101.2 .840.364914.1.72.3.15|1.2.840.465739.1.1 3.104.2.7.2.727879_[id number] Lisa Luis RN [facility] 2023-04-06 20:54:00 GVMMAjp/lmxc7Mz0vyHt/a0EN02kBrqxi+nQhHzo DiQX3FvwGFXiNeDHXoXuj8E59473-65-53S38:54 :00Associated Order(s): Critical Care [facility] Emergency Department NotePatient Name: Lovely Almanzar of : 1945 78 year old femaleTreatment Room: VT3/XX3Yfdjhdj Record Number: [id number] Care Physician: Britni TabaresPatient Escorted by: Family [5]Mode of Arrival: Personal means [1]EMS Treatment Prior to ED Arrival:KNIFEMAN treatment: Medication (comment) KNIFEMAN treatment comments: carvedilol, half norco, muscle relaxer, 2 steroidTravel and Exposure Screening:SymptomsDoes patient have any of these symptoms?: (not recorded)Exposure ScreeningHas patient had contact with someone with a communicable disease in the last month?: (not recorded)Diseases exposed to:: (not recorded)Is Patient ?: (not recorded)Exposure Date: (not recorded)Chief Complaint:Chief Complaint Patient presents with Chest Pain Shortness of Breath History of Present Illness:78-year-old female with history of CVA, hypertension, atrial fibrillation, recent epidural injection and supratherapeutic INR presenting with chest pain that started an hour prior to coming in. Additionally she was in A-fib RVR with a heart rate of 140. She took her carvedilol prior to coming in. States that she has pain in her back at the epidural site. She is wearing a lidocaine patch over the area.Past Medical History/Immunizations:Past Medical History: Diagnosis Date Asymptomatic bilateral carotid [...] Neuropathy Tetanus received in last 5 years: NoChildhood immunizations: Up-to-date Allergies:No Known AllergiesPast Social History:Tobacco Use Never smoked or used smokeless tobacco. Passive Exposure: Never Tobacco Cessation: Counseling given: No Vaping Use Never used Alcohol Use No. Drug Use No. Sexual Activity Not currently sexually active. Past Surgical History:Past Surgical History: Procedure Laterality Date SECTION COLONOSCOPY N/A 11/25/2017 Surgeon: Blair Caballero MD; Location: [facility] Location ESOPHAGOGASTRODUODENOSCOPY N/A 11/25/2017 Surgeon: Blair Caballero MD; Location: [facility] Location PHACOEMULSIFICATION OF CATARACT WITH INTRAOCULAR LENS IMPLANT Right 09/07/2018 Surgeon: Isiah Garcia MD; Location: [place] OR Location PHACOEMULSIFICATION OF CATARACT WITH INTRAOCULAR LENS IMPLANT Left 10/12/2018 Surgeon: Isiah Garcia MD; Location: [facility] THYROIDECTOMY in her 40s. due to goiter TONSILLECTOMY Review of Systems: Review of Systems Constitutional: Negative for chills, fatigue and fever. HENT: Negative for sore throat. Eyes: Negative for pain. Respiratory: Positive for shortness of breath. Negative for cough, chest tightness and stridor. Breasts: Negative for pain. Cardiovascular: Positive for chest pain and palpitations. Gastrointestinal: Negative for abdominal pain, constipation and diarrhea. Genitourinary: Negative for bladder incontinence and difficulty urinating. Musculoskeletal: Positive for back pain. Skin: Negative for color change. Neurological: Negative for dizziness, seizures, weakness, light-headedness and headaches. Hematological: Bruises/bleeds easily. Physical Exam: ED Triage Vitals [04/06/232055] Weight 56.7 kg (125 lb) Actual or estimated Estimated by patient/family report Height 1.499 m (4' 11") BP (!) 197/125 Pulse 145 Resp 20 Temp 36.6 ?C (97.8 ?F) Temp source Oral SpO2 95 % Measured on Room air Physical ExamVitals and nursing note reviewed. Constitutional: General: She is not in acute distress. Appearance: She is well-developed. She is not diaphoretic. HENT: Head: Normocephalic and atraumatic. Right Ear: External ear normal. Left Ear: External ear normal. Nose: Nose normal. Eyes: General: No scleral icterus. Conjunctiva/sclera: Conjunctivae normal. Pupils: Pupils are equal, round, and reactive to light. Cardiovascular: Rate and Rhythm: Tachycardia present. Rhythm irregular. Heart sounds: Normal heart sounds. Pulmonary: Effort: Pulmonary effort is normal. Breath sounds: Normal breath sounds. Abdominal: General: Bowel sounds are normal. Palpations: Abdomen is soft. Tenderness: There is no abdominal tenderness. Musculoskeletal: General: Tenderness (lower back at epidural site.) present. Normal range of motion. Cervical back: Normal range of motion and neck supple. Skin: General: Skin is warm and dry. Neurological: Mental Status: She is alert and oriented to person, place, and time. Cranial Nerves: No cranial nerve deficit. Deep Tendon Reflexes: Reflexes are normal and symmetric. Psychiatric: Behavior: Behavior normal. Thought Content: Thought content normal. Radiology:CT LUMBAR SPINE WO CONTRAST Final Result Ordering physician: SHERICE MCLAUGHLIN INDICATION: Back pain COMPARISON: MRI of the lumbar spine dated 03/26/2023 TECHNIQUE: Axial images of the lumbar spine were performed without the administration of intravenous contrast material. Images were reformatted in the coronal and sagittal plane. CT scan was performed according to ALARA (as low as reasonably achievable) policy. FINDINGS: The lumbar spine is in normal anatomic alignment. There is redemonstration of a superior endplate compression fracture of L1, with approximately 30% vertebral body height loss and no bony retropulsion. There is a healing fracture of the transverse process of L1 on the left (series 2, image 25). There is atherosclerotic calcification of the aorta without significant aneurysmal dilatation. The right kidney is atrophic. There is a stent in the left renal artery. There is a calcified fibroid in the uterus. There are mild diffuse disc bulges throughout the lower lumbar spine, without significant central canal stenosis. Facet arthropathy and ligamentum flavum thickening results in mild to moderate neural foraminal stenosis at L3-L4, L4-L5 and L5-S1. IMPRESSION Stable subacute superior endplate compression fracture of L1, with approximately 30% vertebral body height loss. Apparent healing nondisplaced fracture of the left transverse process of L1. Bilateral hfxq-ly-tmcikmth neural foraminal stenosis throughout the lower lumbar spine related to facet arthropathy and ligamentum flavum thickening. RL: 460 AFC: 76071 CHEST 1 VW Final Result ORDERING PHYSICIAN: SHERICE MCLAUGHLIN CLINICAL HISTORY: Chest pain COMPARISON: 02/08/2023 TECHNIQUE: Portable Chest performed at 04/06/2023 9:15 PM. Technical Quality: Diagnostic FINDINGS: There is apparent prominence of the pulmonary vasculature and indistinctness suggesting pulmonary edema, but which may be artifactually accentuated by portable technique and suboptimal aeration. Repeat full inspiration PA and lateral chest x-ray may be of use for clarification. No appreciable pneumothorax or effusions. There is ectatic thoracic aorta. Cardiac silhouette is not enlarged. IMPRESSION Decreased aeration with equivocal edema type pattern. HS: Y RL: 0121 Lab Results:Lab Results CBC WITHOUT DIFF - Abnormal Result Value Ref Range WBC 13.37 (*) 4.30 - 11.10 10*3/?L RBC 4.85 3.93 - 5.25 10*6/?L HGB 14.8 11.6 - 15.0 g/dL HCT 44.6 35.7 - 45.2 % MCH 30.5 25.9 - 32.8 pg MCV 92.0 80.6 - 95.5 fL MCHC 33.2 31.6 - 35.1 g/dL PLT 306 166 - 358 10*3/?L MPV 12.0 9.5 - 12.9 fL RDW-CV 15.4 12.0 - 15.5 % RDW-SD 51.8 (*) 39.0 - 49.9 fL NRBC x10^3 <0.01 10*3/?L NRBC/100 WBC 0.0 0.0 - 10.0 /100 WBCs IPF % COMP. METABOLIC PANEL (61998) - Abnormal NA 138 135 - 145 mmol/L K 4.4 3.5 - 5.0 mmol/L CL 103 98 - 108 mmol/L CO2 TOTAL 27 23 - 31 mmol/L AGAP 8 2 - 16 BUN 34 (*) 7 - 23 mg/dL GLUCOSE 169 (*) 70 - 110 mg/dL CREATININE 1.55 (*) 0.50 - 1.04 mg/dL TOTAL BILI 0.5 0.1 - 1.1 mg/dL CALCIUM 10.7 (*) 8.6 - 10.6 mg/dL T PROTEIN 6.9 6.3 - 8.2 g/dL ALBUMIN 4.2 3.5 - 5.0 g/dL ALK PHOS 125 (*) 34 - 122 U/L ALTv 19 5 - 35 U/L AST(SGOT) 21 13 - 40 U/L eGFR 32.4 mL/min/1.73m2 N-TERMINAL PRO-BNP - Abnormal NT-proBNP 2,570 (*) <=125 pg/mL PROTHROMBIN TIME / INR - Abnormal PROTIME PATIENT 21.6 (*) 12.0 - 14.7 Seconds INR 1.9 LIPASE - Normal LIPASE 55 0 - 220 U/L MAGNESIUM - Normal MAGNESIUM 2.1 1.7 - 2.4 mg/dL TROPONIN I - Normal TROPONIN I 0.033 <=0.034 ng/mL EKG:If EKG completed, see Procedure Note. Orders and Treatments:Orders Placed This Encounter Procedures Critical Care XR CHEST [address] LUMBAR SPINE WO CONTRAST CBC WITHOUT DIFF COMP. METABOLIC PANEL (61843) LIPASE MAGNESIUM N-TERMINAL PRO-BNP Prothrombin Time / INR TROPONIN I URINALYSIS URINE CULTURE Prothrombin Time / INR CBC WITH DIFF MAGNESIUM N-TERMINAL PRO-BNP COMP. METABOLIC PANEL (25417) Consult Cardiology Consult Adult Physical Therapy Orders Placed This Encounter Medications diltiazem (CARDIZEM IV) injection 15 mg FENTanyl PF (SUBLIMAZE (PF)) injection 50 mcg diltiazem (CARDIZEM IV) injection 10 mg DISCONTD: enoxaparin (LOVENOX) injection 40 mg acetaminophen (TYLENOL) tablet 1,000 mg DISCONTD: traMADoL (ULTRAM) tablet 50 mg ondansetron (ZOFRAN (PF)) injection 4 mg DISCONTD: enoxaparin (LOVENOX) injection 30 mg Hydrocodone-Acetaminophen 7.5-300 mg tablet atorvastatin (LIPITOR) tablet 80 mg carvediloL (COREG) tablet 25 mg diazePAM (VALIUM) tablet 5 mg ezetimibe (ZETIA) tablet 10 mg methocarbamoL (ROBAXIN) tablet 500 mg levothyroxine (SYNTHROID) tablet 88 mcg lidocaine (LIDODERM) 5 % (700 mg/patch) patch 1 Patch DISCONTD: warfarin (COUMADIN) tablet 5 mg warfarin (COUMADIN) tablet 3 mg diltiazem (CARDIZEM) tablet 30 mg metoprolol tartrate 50 mg tablet HYDROcodone-acetaminophen (NORCO 5) 5-325 mg tablet 1 tablet morpHINE (2 mg/mL) injection 2 mg aspirin EC tablet 81 mg First Provider Eval:ED Events Date/Time Event User Comments 04/06/232099 Medical Screening Begins SHERICE MCLAUGHLIN -- 04/06/232099 First Provider Evaluation SHERICE MCLAUGHLIN -- AdmissionCareGuideline: Chest Pain - OBS, ObservationBased on the indications selected for the patient, the bed status of Admit to Observation was determined to be METThe following indications were selected as present at the time of evaluation of the patient: Chest pain (or other anginal equivalent) not classified as low risk for acute coronary syndrome, as indicated by 1 or more of the following: - - Patient classified as intermediate risk or high risk for acute coronary syndrome (eg, via use of a clinical decision tool or risk calculator (eg, HEART score greater than 3)) - Other aspect of patient presentation indicative of need for monitoring or testing beyond emergency department treatment time frame (eg, concern for arrhythmia)AdmissionCare documentation entered by: Sherice [employer], 27th edition, Copyright 2022 [facility] [employer] All Rights Reserved. [id number]:46:42-05:00ED COURSEDiagnosis/Impression as of 04/07/23 2329 Chest pain, unspecified type Atrial fibrillation with rapid ventricular response Acute midline low back pain without sciatica Hypertension, unspecified type Procedures: Critical CarePerformed by: Sherice Mclaughlin DOAuthorized by: Sherice Mclaughlin DO Critical care provider statement: Critical care time (minutes): 35 Critical care time was exclusive of: Separately billable procedures and treating other patients Critical care was necessary to treat or prevent imminent or life-threatening deterioration of the following conditions: Cardiac failure (atrial fibrillation with rapid ventricular response) Critical care was time spent personally by me on the following activities: Ordering and performing treatments and interventions, re-evaluation of patient's condition, obtaining history from patient or surrogate, examination of patient, evaluation of patient's response to treatment, ordering and review of laboratory studies, ordering and review of radiographic studies, development of treatment plan with patient or surrogate and discussions with consultantsComments: Given the critical condition in which the patient arrived, the patient was immediately assessed by myself and the nurse, and cardiac monitoring initiated due to the potential for rapid decompensation of the patient's clinical condition. During the course of the patient's stay, I spent a considerable amount of time at the bedside performing serial re-evaluations of the patient's hemodynamic and clinical status because of the recognized potential threat to life or limb in this condition. I then had a chance to review not only all of the available current laboratory and radiographic studies obtained today, but I also reviewed old records available to me at the time. 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 Sequential vital signs were obtained. Critical Care time reported above was performed exclusive of billable proceduresMDM:Medical Decision Xnktmy47-llia-izs female with chest pain and atrial fibrillation with rapid ventricular response. Heart rate responded to IV Cardizem a total of 25 mg was given. She took carvedilol prior to coming into the emergency department. Additionally she had low back pain with recent procedure and history of supratherapeutic INR. INR is normal today L-spine CT negative for hematoma. CKD is stable. EKG originally was A-fib RVR heart rate 144 ST abnormality is likely consistent with rate.HEART Score 6. Problems Addressed:Acute midline low back pain without sciatica: chronic illness or injury with exacerbation, progression, or side effects of treatmentAtrial fibrillation with rapid ventricular response: acute illness or injury with systemic symptomsChest pain, unspecified type: acute illness or injury that poses a threat to life or bodily functionsHypertension, unspecified type: acute illness or injury with systemic symptomsAmount and/or Complexity of Data ReviewedLabs: ordered.Radiology: ordered.ECG/medicine tests: ordered and independent interpretation performed. Decision-making details documented in ED Course.Discussion of management or test interpretation with external provider(s): Patient discussed with Dr. Nicole hospitalist accepted for admission.RiskPrescription drug management.Parenteral controlled substances.Drug therapy requiring intensive monitoring for toxicity.Decision regarding hospitalization. Flowsheet Documentation: Scoring Tools: No data recorded Disposition/Condition:ED Disposition ED Disposition Admit - Inpatient Condition -- Comment -- Discharge Medications:Current Discharge Medication List STOP taking these medications Hydrocodone-Acetaminophen 7.5-300 mg tablet Comments: Reason for Stopping: metoprolol tartrate 50 mg tablet Comments: Reason for Stopping: lidocaine 5 % (700 mg/patch) patch Comments: Reason for Stopping: methocarbamoL 500 mg tablet Comments: Reason for Stopping: methylPREDNISolone (MEDROL, PEYTON,) 4 mg tablets Comments: Reason for Stopping: carvediloL (COREG) 25 mg tablet Comments: Reason for Stopping: levothyroxine (SYNTHROID) 88 mcg tablet Comments: Reason for Stopping: atorvastatin 80 mg tablet Comments: Reason for Stopping: warfarin 5 mg tablet Comments: Reason for Stopping: diazePAM (VALIUM) 5 mg tablet Comments: Reason for Stopping: ezetimibe 10 mg tablet Comments: Reason for Stopping: Follow-up:Electronically signed by: Sherice Mclaughlin DO04/07/23 2329 76491-7Aypbzszfl Emergency department BwdxBB4498-07-59T42:29:31Physician Emergency department NoteTXT1.2.840.136190.1.13.104.2.7.2.727 879|[id number] for patient ntzw68190-2Nxijiaofr department NoteLNUT[address] Oo[id number] LOUPGQELDBBUIJKBRJ1313-62-54O95:29:311.2 .840.987113.1.72.3.15|1.2.840.534675.1.1 3.104.2.7.2.727879_[id number] [facility] 2023-04-06 20:54:00 zBjlR52xaefbW9hYCj5TSnNw+VvrQktEHLgAKlNQ vRo+6obB7o6uy1vr+gsoOUlC9385-68-56R47:54 :00 AdmissionCareGuideline: Chest Pain - OBS, ObservationBased on the indications selected for the patient, the bed status of Admit to Observation was determined to be METThe following indications were selected as present at the time of evaluation of the patient: Chest pain (or other anginal equivalent) not classified as low risk for acute coronary syndrome, as indicated by 1 or more of the following:- - Patient classified as intermediate risk or high risk for acute coronary syndrome (eg, via use of a clinical decision tool or risk calculator (eg, HEART score greater than 3))- Other aspect of patient presentation indicative of need for monitoring or testing beyond emergency department treatment time frame (eg, concern for arrhythmia)AdmissionCare documentation entered by: Sherice [facility], 27th edition, Copyright 2022 [facility] [employer] [facility] All Rights Reserved. 9404-94-23C37:46:42-05:00 313933VL Admission Criteria1.2.840.922849.1.13.104.2.7.4.73 7880.32896829-21-41N59:46:43EC Admission CriteriaTXT1.2.840.715530.1.13.104.2.7.2 .967204|[id number] for patient dvje28106-1OfyyHIIGLACZFB[address] If[id number] UDWZYYZNQUVSPBVRFL8831-20-81T91:46:431.2 .840.608048.1.72.3.15|1.2.840.690443.1.1 3.104.2.7.2.727879_[id number] [facility] 2023-04-04 08:00:00 MK8NpUB7dR111WLUxXIfRTB0wRfATrbPQttSg1hE tGIWOCuZpyrtHLSq5FnmMFUG2252-16-22T11:00 :00 Images from the original note were not included.Venipuncture collection performed by clean technique on the right anticubitus. Total of 1 attempts were made. Slight pressure and a bandage/dressing were applied to the site(s). The patient experienced no complications. The following specimens were processed according to instructions and sent to [facility] laboratories per lab order on 04/04/2023: LT BLUE 1 SST RED LAV PPT DK GREEN (LiHep) DK GREEN (SodH) FRASER DK BLUE (K2) DK BLUE (S) ACD Blood Culture NIPT/NTD 18443-0Zkgoh PvycHR1898-26-89R29:08:26Nurse NoteTXT1.2.840.659907.1.13.104.2.7.2.727 879|[id number] for patient iykn38530-0Ppcmr NoteUT[address] VahmUqbjhnsouHnttdmlipMDMM3258392766QCGU IXNEWXQNPOHIEBRGOT1274-88-77T72:08:261.2 .840.604374.1.72.3.15|1.2.840.500136.1.1 3.104.2.7.2.727879_[id number] [facility] 2023-04-01 15:14:57 Rul0UrPnzJNeN78/iaUiReNswYU/M99qOPAqu3DM fYaPgW5PPLcXFuVYeEvtdB3M3203-73-46M89:14 :57 Pt discharged home. Pt and daughter given all education and information regarding pain management; and importance of follow up. Also given s/s of worsening condition. Patient vss. Escorted to pov via w/c by ert. No further concerns 30644-9Vxthtowoz department QxvmUZ5725-21-86R38:15:44Emergen department NoteTXT1.2.840.383072.1.13.104.2.7.2.727 879|[id number] for patient bvfk51680-9EpdoAP012260686Yllhhm A Paul RN[id number] JHBYMXPFANAVDJLCAP2806-66-82H66:15:441.2 .840.741247.1.72.3.15|1.2.840.325046.1.1 3.104.2.7.2.727879_[id number] Mateo Delacruz RN [facility] 2023-04-01 13:34:15 ylEbX+DjTWVQh+/0zgQ6zupiYaahh1fLM4i8VOfk lwUvfH6XxqQYSIgXC6yydWHl7049-13-38K26:34 :[address] Astudillo took call. Advised patient to go to ER. Called patient's daughter and informed them of results. Patient's daughter took her to ER. 21763-1Tfuzxtxqn encounter LdalDC0766-93-15S02:35:15Telephone encounter NoteTXT1.2.840.728492.1.13.104.2.7.2.727 879|[id number] for patient ppla22330-7YvioTO242717419Qrjl Chicho SABA[id number] MTSSNLHRVJEQMHNDHT1961-23-92B51:35:151.2 .840.421417.1.72.3.15|1.2.840.915708.1.1 3.104.2.7.2.727879_[id number] Ailyn Parker RN [facility] 2023-04-01 13:30:50 WD+kHC/3/OgdrGcVS+lbX47iElT7rRQdepBQjLKg inYfPZo7zAWzUEsm38lTkAf20380-69-82C61:30 :50 Appt set for 05/03/23 for follow up. 06306-1Rqytrlzjj encounter WrgdXW3078-50-03Q25:31:16Telephone encounter NoteTXT1.2.840.067207.1.13.104.2.7.2.727 879|[id number] for patient lmni27853-5LqqwNP582426422Bpbznp E Bonilla[address] VaavRcfqytnlqUoitffeknMENZ3270136114XBFW PSZPFBZSEOMEDIHSVQ0852-25-59O61:31:161.2 .840.781992.1.72.3.15|1.2.840.171022.1.1 3.104.2.7.2.727879_[id number] Jessica Menjivar [facility] 2023-04-01 13:29:10 d0LSyvRJrFY3uJb2cjs4E5qg+InGLysbLptpqwSI 3RydoOD0QNFpHfISN4toicwx4788-51-26W10:29 :[address] [place] 13425-6Juxbtwwmu department GxfbMM0332-38-90C50:29:18[facility] NoteTXT1.2.840.151214.1.13.104.2.7.2.727 879|[id number] for patient bblw69107-9OgwtUO816933367Uennn Y Khan RN[id number] TOROAHPLFOENOXAAKDGMAV0833-08-59A68:29:181.2 .840.347904.1.72.3.15|1.2.840.535912.1.1 3.104.2.7.2.727879_[id number] Pat Richey RN [facility] 2023-04-01 13:09:43 HilPyGScjOhtgEgzlhLJwEq5EZHVIeDHhpcS123F WlwSvD1m1RjEsYMEBfHOwBXL5045-97-74D59:09 :43 Routing encounter to [facility] for further assistance. Thank you 59934-3Phltdqzqr encounter EwqlSP5735-71-14T96:10:09Telephone encounter NoteTXT1.2.840.785981.1.13.104.2.7.2.727 879|3803830797BGLvprugadx for patient kdat76194-7LghvTQ818480239Xwdwur J Findley [id number] TOROHZZYLGLMDKRPIYDJAD2548-80-16P70:10:091.2 .840.800457.1.72.3.15|1.2.840.578529.1.1 3.104.2.7.2.727879_[id number] Malini Gordillo LVN [facility] 2023-04-01 13:04:49 /v65GZpwZBhJ3LKq5S4kxhz3eifR/CKqkRJcPw4j 2QxfUKLLPy2UNfyF6pdV7kuf7645-82-10R58:04 :49 Lidocaine qty 30 sent to pharmacy by Parrish Garcia DNP. Per Parrish Garcia DNP: "Follow-up can be scheduled in 4-5 weeks". 02340-7Otjoclkeh encounter ZiqaIR5447-52-10P88:08:53Telephone encounter NoteTXT1.2.840.352729.1.13.104.2.7.2.727 879|4919324820BFAljargrai for patient muum58020-3LcggQX773835807Gbkjoj J Findley [id number] TFJWRNLLTQKSLTBDGW2116-21-37D19:08:531.2 .840.030568.1.72.3.15|1.2.840.124094.1.1 3.104.2.7.2.727879_[id number] Malini Gordillo On license of [facility] 2023-04-01 12:58:43 Sk9UibhCQ1MAtpizhJQOelCVpQc91sTeoUdRZkGR vj6mtRang6FWjupDz/e651ok0393-78-15F45:58 :43 Daughter states: "Dr. Bonilla said her INR was 11 and to come here. She also has fractures in her spine that she's being treated for" Reports 3-4 days ago falling in room trying to use the bathroom. Hit head. Hematoma to left posterior scalp. 78177-5Eetnhqugu department Triage fzyfVQ8724-79-08H24:03:09[facility] Triage noteTXT1.2.840.340632.1.13.104.2.7.2.727 879|[id number] for patient zjrt79403-5Gxgdkjulc department Note[id number] HILTONBBKZWKINGXYYWCPGBU4551-41-72F56:03:091.2 .840.851626.1.72.3.15|1.2.840.641187.1.1 3.104.2.7.2.727879_[id number] [facility] 2023-04-01 12:21:17 DFUk1jHeNEUvnC6oz21JoBrq4jg6OgEz3Rl3lVGl R6Y8ZfstSPm1QDXw6B1OR0dG6346-75-87O13:21 :17 Currently working on this call in another encounter. Please see encounter date 03/31/23. Thank you. 28466-7Sdteekcny encounter CcheNS8395-30-74O00:22:03Telephone encounter NoteTXT1.2.840.302376.1.13.104.2.7.2.727 879|3897562005UXIemvigurs for patient iyas82847-2JjfgOL622771438Tlefnq J Findley [id number] TOROYSKQFQKCXNSJGTVLQF9861-54-53F62:22:031.2 .840.274048.1.72.3.15|1.2.840.009288.1.1 3.104.2.7.2.727879_[id number] Malini Gordillo LVN [facility] 2023-04-01 12:21:09 KqiF0UOABQjnh1zN5iqw3l5Y4xPKEvmgPKDA6E6O D6CD7N3R2DNZPcN8nIgBscWt7059-36-32T52:21 :09 Lovely Welch is a 78 year old femaleCarol with [facility] Hematology lab calling to report critical INR results. Please adviseTransferred call to Dr. Vargasectronically signed by Medina Alvarado at 04/01/2023 12:23 PM WDO64977-8Gcwqygago encounter FkwmES8065-63-57I58:23:19Telephone encounter NoteTXT1.2.840.226677.1.13.104.2.7.2.727 879|[id number] for patient njjt14371-7AfjdPR288645107Dcfel Erik[address] OkfbHcgvykrasFzakxlestHSAH8217747295CYUY OYWBYAWALAYHZAUISJ7037-14-79F65:23:191.2 .840.721090.1.72.3.15|1.2.840.165137.1.1 3.104.2.7.2.727879_[id number] Medina Alvarado [facility] 2023-04-01 12:13:00 HFE0dAKyE9troLWq9Ak6B0qz+o/ndbxNPLfGlQw6 X3KZdFOVrQftGKg0URgeaZb07445-34-93S64:13 :00 Lovely Welch is a 78 year old femalePharmacy needing qty to be 30 patches instead of 15 since that how much comes in a box. Please call back and assist.[facility] [id number] - [place] - [address] [facility] [address] [facility] [address]Mcozk: [phone] Cdsrbtfhvqnfeh signed by Bonnie Flores at 04/01/2023 12:14 PM PFI60747-9Ncaybakeo encounter NhqbKO1084-55-52X23:14:41Telephone encounter NoteTXT1.2.840.691716.1.13.104.2.7.2.727 879|2310053400XQXarwvadnu for patient vwai56095-2UfvaJI212338403Znjnbhi Oseguera [id number] TOROSXDGKUGUKAWYBDVXBQ0361-70-03Q41:14:411.2 .840.288957.1.72.3.15|1.2.840.091307.1.1 3.104.2.7.2.727879_[id number] Bonnie Rodriguez [facility] 2023-04-01 12:05:17 O6wwG4mZlJLsCuK9QJempHnecSuLO65+sb9IKw5O OJ/0Dv3zs7i43Q1odNmMIROp6121-33-70M29:05 :17 Lovely Welch is a 78 year old femaleFormer[facility] wants to give a critical Lab Please advise call lab [phone] gonsalo Ruizectronically signed by Herb Coats at 04/01/2023 12:06 PM GIC28771-7Ucsnlgeyj encounter IyuqXY8241-64-45W51:06:15Telephone encounter NoteTXT1.2.840.576169.1.13.104.2.7.2.727 879|1974132187QRKvfcpfzlm for patient qtug35699-7UimtUY933424195Ujnai M Rashid[id number] TOROGYQMYGLSAIWPNFGTOA6155-60-30Q25:06:151.2 .840.804732.1.72.3.15|1.2.840.800028.1.1 3.104.2.7.2.727879_[id number] Herb Coats [facility] 2023-04-01 11:45:32 nzVoayroUAAlIFz+3TRqK/Pk6zgynId7daBkGtMF D/OjxSzwAxZ+v8n9FAFNRPH67835-24-20Y11:45 :32 Forwarded to Parrish Garcia DNP for advisement. 01002-0Vpxsoiobm encounter CoupII9207-30-40B15:46:10Telephone encounter NoteTXT1.2.840.350298.1.13.104.2.7.2.727 879|9440506715KTMabvzdpni for patient npyn89835-2OrwiRO084367963Ncauqh J Findley [address] FcwoGdxiynqjhSiszcltbqYJJZ2902094058NBMW NCJCYUJPKTUOZEHGPT3247-57-34E07:46:101.2 .840.331367.1.72.3.15|1.2.840.923592.1.1 3.104.2.7.2.727879_[id number] Malini Gordillo LVN [facility] 2023-04-01 11:00:00 dERumHNJDwhEter7oYmgfexjRRHXAoX73R6zfkb3 B8mVZjp6aGiN5UZFTOkSMorL7432-45-19E31:00 :00 Images from the original note were not included.Venipuncture collection performed by clean technique on the right anticubitus. Total of 1 attempts were made. Slight pressure and a bandage/dressing were applied to the site(s). The patient experienced no complications. The following specimens were processed according to instructions and sent to [facility] laboratories per lab order on 04/01/2023: LT BLUE 1 SST 3 RED LAV PPT DK GREEN (LiHep) DK GREEN (SodH) FRASER DK BLUE (K2) DK BLUE (S) ACD Blood Culture NIPT/NTD Pt will be back at a later date to collect urine 82568-5Nqjpf WkmgFG6235-92-69W94:32:29Nurse NoteTXT1.2.840.346885.1.13.104.2.7.2.727 879|[id number] for patient pfcx84300-8Punme [id number] HILTONGIZLJZYVBNOCNUDSTU4185-50-83K25:32:291.2 .840.723904.1.72.3.15|1.2.840.768182.1.1 3.104.2.7.2.727879_[id number] [facility] 2023-03-31 16:40:42 ouXELVQVVJ1pgWeJqNRV2O+aqNL1agob/GV/i8++ ytP46dSsLtNKN95IcISVXGYD4616-28-54E59:40 :42 Pharm requesting rewrite of Rx for lidocaine, states they cannot break box and they come in qty of 30. Needs Rx that reflects [place]ty. 50253-6Djvbhavii encounter SvzeTG9000-05-82I96:41:36Telephone encounter NoteTXT1.2.840.082918.1.13.104.2.7.2.727 879|3854344701MESubhylrsn for patient kgzy01284-8OenvZJ67866485Zhcwnm Hernandez[id number] NTAIGDOMKSZOUYNNXN4668-33-53Q55:41:361.2 .840.464803.1.72.3.15|1.2.840.714183.1.1 3.104.2.7.2.727879_[id number] Babak Atkinson [facility] 2023-03-31 13:48:56 GYUmuMBTPd+mHwgtwFrzUuGsDYAY2c3J9fZ8o2I/ RJbOB4a8ymkw8lsSAI0Gz1zl2537-06-26V44:48 :56 Attempted to call patient, no answer and unable to leave voicemail. Will send My Chart message with Britni and Dr. Astudillo's recommendations. 44307-1Lbepocdnt encounter QdvqCV7194-05-70S83:58:22Telephone encounter NoteTXT1.2.840.191950.1.13.104.2.7.2.727 879|8044666686LHCdqpaxwgf for patient nnzc27355-4WgslFD435984872Zguy Sheavly RN[address] EgcyBowensczuAfdqtqeytSRBG6733945090LGRM JNNUDEVZZUQEKDCZNA7403-81-88R97:58:221.2 .840.306786.1.72.3.15|1.2.840.166851.1.1 3.104.2.7.2.727879_[id number] Ailyn Parker RN [facility] 2023-03-31 12:52:58 uBapc0q3l/j+qV/4udSTyY2gbt6X8xySv6Y9Y9HN 4IGkq3ZC7gOG8i3IqUGCSjHO3375-94-76R59:52 :58 Chart reviewed. Seems like PCP already placed orders for home health for INR check and also for her underlying help at home.Whenever the home health is established, would recommend starting INR check and to send us results of INR for review for further adjustment for warfarin. 02833-4Xjuxcfuzc encounter KsqlPV9818-29-83X37:53:56Telephone encounter NoteTXT1.2.840.108684.1.13.104.2.7.2.727 879|[id number] for patient ihot89299-7JmnkLFGEPJPVMF[address] LyjuPkfpipopgSslyimiitMBPB6760596363NAAO NKAZGVMQXEVZJNSQAM6605-83-47K10:53:561.2 .840.420138.1.72.3.15|1.2.840.927969.1.1 3.104.2.7.2.727879_[id number] [facility] 2023-03-31 08:29:03 EemhtncrNU4lzWx3ctdr0S7FHSsJIglBA2ag8TCW i4ovukVtSHey8zlzyMgN8HxN4385-40-65H03:29 :03 I have sent email to schedulingIf she has not had BM and she is having worsening of pain, unable to get out of bed I would recommend to go by EMS to the hospital.She can possibly be admitted for management of pain, established with specialist and then all the HH can be established.I can also try to get this going, however it will take time outpatient and in the mean time she needs her blood work done and she needs help with pain.So my first recommendation would be to go to hospital for managementHowever I am working on her follow ups and will place orders 15708-3Chhjqhbeu encounter NxjoRO8350-65-08N58:30:24Telephone encounter NoteTXT1.2.840.789212.1.13.104.2.7.2.727 879|6713421410ALLubzyibpv for patient vzoz54938-6SbulXTWVAVJWMS[id number] PRYHQTHNMWKOFPBPUC6151-62-95G85:30:241.2 .840.701860.1.72.3.15|1.2.840.293105.1.1 3.104.2.7.2.727879_[id number] [facility] 2023-03-30 12:12:44 RE9/zdMO8nni8ebGL6VkSZwKjtKC6LVvWvpzBO2V SCRRezeO6+CvO0+1x/26XW1I8507-15-42R87:12 :44 Patient unable to get to lab for INR check for warfarin.Patient requesting orders for home health for INR checks. Routing to patient's PCP and Dr. Astudillo to advise 50207-9Bzixfpost encounter IikqSA9667-30-79J64:19:02Telephone encounter NoteTXT1.2.840.458771.1.13.104.2.7.2.727 879|9526939810ISYzrmqupbo for patient swdc58260-2SkzzYT315484190Ksee Sheavly RN[id number] HXVBYPKOWDIDFOYMIF7799-82-80B27:19:021.2 .840.880864.1.72.3.15|1.2.840.940313.1.1 3.104.2.7.2.727879_[id number] Ailyn Parker RN [facility] 2023-03-29 16:59:36 GgstfS3EgTkiQx0TBDexyZqAVyvrxArCjc71shsH pXzhiyHvfPgk+rjfQXBpwOIg7079-43-41P65:59 :36 Last INR check 03/23/23. Patient compliant with INR checks. Refill sent to [facility] in [place]. 35246-0Dswjtdmrh encounter WfuqCH2115-11-01T19:00:19Telephone encounter NoteTXT1.2.840.082050.1.13.104.2.7.2.727 879|5867564452PSGlxjbonjt for patient gwhe53020-0KnnnUK366714280Hkeb Chicho SABA[id number] SXHJRLIRJOGGRJSKTY1326-56-37E38:00:191.2 .840.242840.1.72.3.15|1.2.840.775797.1.1 3.104.2.7.2.727879_[id number] Ailyn Parker RN [facility] 2023-03-28 16:15:41 0eloQjWXInaTfEdotCbMlTYoAnTnAtc+Qr+ARiGo RQE7dAIrLP7Nxse33ShMmx1e1885-64-06P73:15 :41 Pt spoke with pt's daughter earlier in the day regarding MRI results.Telephone call placed to the referral center to assist pt with scheduling appts. The earliest date that she can be seen with ortho disaster or damage control specialist is 05/10. Attempted to call ortho to see if earlier appt can be given. There are 2 spine specialists and overbooks are approved on a case by case basis only. Daughter of pt notified. She will be contacted by the ortho office if earlier appt can be given. 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 Advised that she reach out to them to see if she can be seen quickly since she is already established with them. Pt or daughter to reach out if any additional assistance is needed. 71275-7Yuysbdply encounter XypmEU8933-82-45Z09:54:15Telephone encounter NoteTXT1.2.840.182130.1.13.104.2.7.2.727 879|[id number] for patient tfgh42310-7CdqdHA667811431Ebimr A Case RN[address] Eydc[id number] RQPNJWMHSLPQYHJVEV0068-58-00A41:54:151.2 .840.663677.1.72.3.15|1.2.840.922606.1.1 3.104.2.7.2.727879_[id number] Susan Garcia Case SANDRA [facility] 2023-03-28 11:58:40 PJDfcQvwoYCtqD3N3aNHODZdmBUJwOyzI7orXrOF mTGKwTvJq8vUTgkcAKdjlA0u5831-55-24U55:58 :40 Spoke with daughter about MRIShe does report her mother is now having constipationI recommend to stop the codeine and hold off on valium as wellHigh fiber diet: Plenty of fruit, vegetables, whole grain foodsMay take an OTC Fiber Supplement such as Metamucil DailyProbiotic DailyPlenty of waterWalking and exercise DailyER for abdominal pain, fever, vomiting, blood from rectum, weakness, dizziness, unable to void or any concernsRecommend Miralax as well for bowel movementInstructed to go to ER without relief. 85989-1Oiuamvrdz encounter NvwoTN9667-35-33B35:00:25Telephone encounter NoteTXT1.2.840.203438.1.13.104.2.7.2.727 879|6760447309LUFcjlbvmoq for patient cbam02633-8OrtlWZALQSOCEM[id number] FERREIRAEQJZPKUTTXEWURYUUX1139-94-73D74:00:251.2 .840.026194.1.72.3.15|1.2.840.206467.1.1 3.104.2.7.2.727879_[id number] [facility] 2023-03-28 10:23:21 2E5bINtL8gr1xUHYeaI7QeC6n07Z7bxR/pD3skp0 WcV35z5eticnclziQeSrUh8C0804-40-02R30:23 :21 IMPRESSION Acute to subacute L1 compression fracture with approximately 30% heightloss. No retropulsion into the spinal canal. Mild multilevel degenerative changes without causing high-grade spinalcanal stenosis or significant neural foraminal narrowing at any level. An opaque in Echo360 message was sent to ordering provider IFEANYI Willis, at time of report dictation.I placed ortho spine referral as well as pain management statI called patient to discuss but no answer. Left VM for call back.Please try again later 47006-1Vpboxampq encounter RrwpAT8160-73-63C37:25:05Telephone encounter NoteTXT1.2.840.153951.1.13.104.2.7.2.727 879|[id number] for patient gcgy17857-5PkpqJSLXMATWJP[id number] FERREIRAHWYLEPICGSVMTLKELQ0662-74-36B19:25:051.2 .840.956319.1.72.3.15|1.2.840.204389.1.1 3.104.2.7.2.727879_[id number] [facility] 2023-03-25 08:51:36 kcFwqKl/0BReBCpST31Vilj3ofR9azmrzMaToUnO UHtdiSBeEaz2l+6QKKlP5p4I0184-91-51X81:51 :36 Message routed to Britni Tabares. 26484-6Vnakahlop encounter DbbgHQ3571-27-39H22:53:18Telephone encounter NoteTXT1.2.840.787987.1.13.104.2.7.2.727 879|[id number] for patient [id number] Macallister [address] Pj[id number] DZIXNLHNMZREIVAEZM5699-40-90D80:53:181.2 .840.282076.1.72.3.15|1.2.840.999078.1.1 3.104.2.7.2.727879_[id number] Lalita Jiménez [facility]ly [facility] 2023-03-24 13:34:39 Vicki+sfy113lIJAYvdixUTrPnEvlO6bJJbJ60WLNb 4MA0YoxDUJJ8uRIVwRMCWVXl4053-68-15Z30:34 :39 Pt given printed and verbal discharge instructions regarding Low back pain, encouraged hydration,Prescriptions providedDiscussed ibuprofen and to take with food to avoid GI distress.Discussed antibiotic therapy and to take until all completed unless adverse reaction occurs - if occurs, discontinue medication and follow up with pcp/seek medical attentionDiscussed tramadol/phenergan/Tylenol # 3 side affects and to avoid driving/operating machinery/or engaging in activities requiring alertness while taking.Pt verbalized understanding of instructions, pt awake alert oriented, resp reg unlabored, skin w/d, color appropriate for race, moves all ext well,pt encouraged to follow up with pcp Advised to seek medical attention for new/prolonged/worsening of symptoms,No adverse reaction to meds given in ER noted upon dischargeAwake, alert oriented, resp reg unlabored, skin w/d, pt leaving amb with steady gait, in no apparent distress, 64798-1Qiqexkvoo department JkigUU7160-41-07S43:35:58[facility] NoteTXT1.2.840.413116.1.13.104.2.7.2.727 879|[id number] for patient [id number] M Hayes RN[address] StreetXn[id number] FVZMZOEWWMFBYZHYUX6740-94-22M55:35:581.2 .840.376889.1.72.3.15|1.2.840.885728.1.1 3.104.2.7.2.727879_[id number] Airam Machado RN [facility] 2023-03-24 11:52:28 AssFCQ52NfnpFPcBDWdrwDj23p0e0kx05FPDkgm5 d/fVch9lkauWduVCQd5C5NdJ0020-08-23K86:52 :28 Patient CO of back pain for the past several weeks and states pain got worse today, denies any injury. Pt has MRI scheduled for Tuesday morning. 48668-3Hivgsdcgt department Triage bqbhYE7984-42-52A43:56:19[facility] Triage noteTXT1.2.840.018018.1.13.104.2.7.2.727 879|[id number] for patient czvk45881-0Msurwywqf department [id number] R Moss RN[address] Jv[id number] KRSUHWMUJIGUMNNCYM1126-63-76P92:56:191.2 .840.646595.1.72.3.15|1.2.840.391904.1.1 3.104.2.7.2.727879_[id number] Yan Cabrera RN [facility] 2023-03-24 11:45:00 TOvJw+0mtq4nstDennneumn2CZ2EbZGwVYTkXRgy aD9rbZqYvgx0UJI6yP5zB+TG1414-76-38Y51:45 :00 [facility] Emergency Department NotePatient Name: Lovely Almanzar of : 1945 78 year old femaleTreatment Room: [place] [address]Medical Record Number: [id number] Care Physician: Britni TabaresPatient Escorted by: Family [5]Mode of Arrival: Personal means [1]EMS Treatment Prior to ED Arrival: Travel and Exposure Screening:SymptomsDoes patient have any of these symptoms?: (not recorded)Exposure ScreeningHas patient had contact with someone with a communicable disease in the last month?: (not recorded)Diseases exposed to:: (not recorded)Is Patient ?: (not recorded)Exposure Date: (not recorded)Chief Complaint:Chief Complaint Patient presents with Back Pain History of Present Illness:The patient presents from home for evaluation for low back pain for the past 1 week. She denies any injury or trauma. She was seen here in March [address] of her abdomen pelvis that showed no acute osseous injuries. She then saw her PCP on March 22 and is scheduled to have an MRI of her lumbar spine this coming Tuesday. Today is . She has been using a prednisone taper pack as well as methocarbamol, Tylenol with codeine and [place]'s and states nothing is helping her pain. No loss of bowel or bladder function. No dysuria or hematuria.Here for evaluation.Past Medical History/Immunizations:Past Medical History: Diagnosis Date Asymptomatic bilateral carotid artery stenosis seen on imaging 12/2018 Bilateral renal artery stenosis 11/16/[address] in the Left renal artery Chronic combined systolic and diastolic congestive heart failure CKD (chronic kidney disease) stage 3, GFR 30-59 ml/min CVA (cerebral vascular accident) In 40s, reportedly related to thyroid surgery HTN (hypertension) Hypothyroidism surgically removed due to goiter Neuropathy Allergies:No Known AllergiesPast Social History:Tobacco Use Never smoked or used smokeless tobacco. Passive Exposure: Never Vaping Use Never used Alcohol Use No. Drug Use No. Sexual Activity Not currently sexually active. Past Surgical History:Past Surgical History: Procedure Laterality Date SECTION COLONOSCOPY N/A 11/25/2017 Surgeon: Blair Caballero MD; Location: [facility] Location ESOPHAGOGASTRODUODENOSCOPY N/A 11/25/2017 Surgeon: Blair Caballero MD; Location: [facility] Location PHACOEMULSIFICATION OF CATARACT WITH INTRAOCULAR LENS IMPLANT Right 09/07/2018 Surgeon: Isiah aGrcia MD; Location: [place] OR Location PHACOEMULSIFICATION OF CATARACT WITH INTRAOCULAR LENS IMPLANT Left 10/12/2018 Surgeon: Isiah Garcia MD; Location: [place] OR Location THYROIDECTOMY in her 40s. due to goiter TONSILLECTOMY Review of Systems: Review of Systems Constitutional: Negative for chills and fever. Respiratory: Negative for cough and shortness of breath. Cardiovascular: Negative for chest pain. Gastrointestinal: Negative for abdominal pain and vomiting. Genitourinary: Negative for dysuria. Musculoskeletal: Positive for back pain. Negative for neck pain and neck stiffness. Skin: Negative for wound. Neurological: Negative for dizziness. Psychiatric/Behavioral: Negative for agitation. Physical Exam: ED Triage Vitals [03/24/23 1153] Weight 63.5 kg (140 lb) Actual or estimated Actual Height BP (!) 191/86 Pulse 55 Resp 18 Temp 36.8 ?C (98.3 ?F) Temp source Oral SpO2 97 % Measured on Room air Physical ExamVitals and nursing note reviewed. Constitutional: Appearance: Normal appearance. HENT: Head: Normocephalic and atraumatic. Cardiovascular: Rate and Rhythm: Normal rate. Pulmonary: Effort: Pulmonary effort is normal. No respiratory distress. Abdominal: General: There is no distension. Tenderness: There is no abdominal tenderness. Musculoskeletal: Cervical back: Neck supple. Comments: No vertebral body tenderness to lumbar spineNo paraspinal muscle tenderness b/l lumbar areaNegative seated leg raise b/l Skin: General: Skin is warm and dry. Neurological: General: No focal deficit present. Mental Status: She is alert and oriented to person, place, and time. Radiology:No orders to display Lab Results:Lab Results - No data to displayEKG:If EKG completed, see Procedure Note. Orders and Treatments:No orders of the defined types were placed in this encounter.Orders Placed This Encounter Medications FENTanyl PF (SUBLIMAZE (PF)) injection 50 mcg diazePAM (VALIUM) tablet 5 mg diazePAM (VALIUM) 5 mg tablet First Provider Eval:ED Events Date/Time Event User Comments 03/24/231204 Medical Screening Begins PAM ADLER DO -- 03/24/231204 First Provider Evaluation PAM ADLER DO -- No notes of EC Admission Criteria type on file.ED COURSEDiagnosis/Impression as of 03/24/23 1326 Acute bilateral low back pain without sciatica Procedures: ProceduresMDM:Medical Decision MakingThe patient presents from home for evaluation for low back pain for the past 1 week. She denies any injury or trauma. She is scheduled to have an MRI of her lumbar spine this coming Tuesday morning. Today is . She was seen here on March 18 and had a normal CT of her abdomen and pelvis showing no acute osseous injuries. She has been using methocarbamol, Tylenol with codeine, [place] as well as prednisone at home without much help.Vital signs are stable here in the ER.She has no vertebral body tenderness to her lumbar spine.No paraspinal muscle tenderness to the bilateral lumbar area.She has a negative seated leg raise bilaterally.Will provide the patient with additional pain medication here in the ER.Will monitor for signs of improvement.Anticipate discharge home later.1326 -the patient is doing well here in the ER.Her pain is much improved after the medications given here in the ER.She remained stable here in the ER and is okay for discharge home with PCP follow-up.Problems Addressed:Acute bilateral low back pain without sciatica: acute illness or injuryRiskOTC drugs.Prescription drug management.Parenteral controlled substances. Flowsheet Documentation: Scoring Tools: No data recorded Disposition/Condition:ED Disposition ED Disposition Disch - Home Condition Stable Comment -- Discharge Medications:Patient's Medications START taking these medications DIAZEPAM (VALIUM) 5 MG TABLET Take 1 tablet by mouth 3 (three) times daily as needed for Muscle Spasms. CONTINUE taking these medications which have NOT CHANGED ACETAMINOPHEN-CODEINE (TYLENOL-CODEINE #3) 300-30 MG TABLET Take 1 tablet by mouth every 6 (six) hours as needed for Pain (scale 4-6). Indications: chronic pain ATORVASTATIN 80 MG TABLET Take 1 tablet by mouth at bedtime. CARVEDILOL (COREG) 25 MG TABLET Take 1 tablet by mouth in the morning and 1 tablet in the evening. Take with meals. CEFDINIR 300 MG CAPSULE Take 1 capsule by mouth in the morning for 10 days. EZETIMIBE 10 MG TABLET Take 1 tablet by mouth in the morning. LEVOTHYROXINE (SYNTHROID) 88 MCG TABLET Take 1 tablet by mouth every morning. METHOCARBAMOL 500 MG TABLET Take 1 tablet by mouth 3 (three) times daily as needed for Pain (scale 7-10). PREDNISONE 10 MG TABLET Take 1 tablet by mouth in the morning for 5 days. WARFARIN 5 MG TABLET Take 1 tablet by mouth every evening. START taking Modified Medications as Prescribed No medications on file STOP taking these medications No medications on file Follow-up:Electronically signed by: Pam Adler, 03/24/23 1326 68548-1Fwyxxlany Emergency department LegrZP0834-18-59S12:26:49Physician Emergency department NoteTXT1.2.840.592281.1.13.104.2.7.2.727 879|[id number] for patient owwx88279-5Rvwxelvbb department NoteLNUT[address] Hq[id number] VXNSVEZGTKYZEXIZHW7072-65-44G02:26:491.2 .840.148256.1.72.3.15|1.2.840.476856.1.1 3.104.2.7.2.727879_[id number] [facility] 2023-03-24 11:06:03 eK75cfE6DunDSZ4WBS395TedumMlGSXDdZEcgi74 /YffGVXLadOt5gg+nCBrdPZM4130-24-06L18:06 :03 Rx sent 03/22/2023. Closing encounter. 38181-2Wsbkvovgs encounter SwblYR3483-15-07Y92:06:43Telephone encounter NoteTXT1.2.840.957984.1.13.104.2.7.2.727 879|[id number] for patient vpzf03605-5JlymGWULOTSDDL[address] [id number] EJPJYZNNZPLUHWFHSO1599-75-24A76:06:431.2 .840.962751.1.72.3.15|1.2.840.881099.1.1 3.104.2.7.2.727879_[id number] [facility] 2023-03-24 11:05:45 Oc0eFyreS+uWWgZ9ilW3CT8n8xfq6H1qSPE078Uc AN503n3kCq1ytofzZZf58EPA2292-93-37H54:05 :45 Message from MyChart:Refills have been requested for the following medications: acetaminophen-codeine (TYLENOL-CODEINE #3) 300-30 mg tablet [Britni Syed Tabares] methocarbamoL 500 mg tablet [Britni Syed Tabares]Preferred pharmacy: [facility] [id number] [facility] [place] [address] [facility] [address] method: PickupThis message is being sent by Margarita Welch on behalf of Beverley Welch 63066-2Nbaeooymq encounter DzoxAE9674-13-76F74:05:45Telephone encounter NoteTXT1.2.840.459215.1.13.104.2.7.2.727 879|[id number] for patient hbon25261-7YfadEWZKOBWMOJ[id number] TOROSNOWOPIHILAYEFTRPO1626-67-17Z01:05:451.2 .840.552026.1.72.3.15|1.2.840.012277.1.1 3.104.2.7.2.727879_[id number] [facility] 2023-03-24 10:50:46 gIeta84XIv7TtlyEBoBpLm3N0DmmD7LbQ5EHbkUL mmrMfRK7opdl+ZCx6UvxbRuV5986-42-84Q98:50 :46 warfarin 5 mg tablet 30 tablet 0 03/23/2023 No Sig: Take 1 tablet by mouth every evening. Sent to pharmacy as: warfarin 5 mg tablet (COUMADIN) Class: eRX Route: Oral Order: [id number] Date/Time Signed: 03/23/2023 15:06 E-Prescribing Status: Receipt confirmed by pharmacy (03/23/2023 3:06 PM CDT) 90532-6Zaqdqynpu encounter ImtuLL7590-74-30B04:51:05Telephone encounter NoteTXT1.2.840.835782.1.13.104.2.7.2.727 879|[id number] for patient duik05609-6SmdkJQ614277663Xunpberv A Cruz RN[id number] FQNBBCAPYKKKQIBJWM9938-65-02Z81:51:051.2 .840.795137.1.72.3.15|1.2.840.573136.1.1 3.104.2.7.2.727879_[id number] Soledad Isabel RN [facility] 2023-03-23 15:07:01 QamyJvP2X0zar6QWxKS/LXaGtHcjQ6ZXHB1PvMxr KaZgkd1y7SQ6W5XrZQdz+9GL9581-30-80E98:07 :01 Addended by: AILYN PARKER RN on: 03/23/2023 03:07 PM Modules accepted: Orders 38919-3Ewqjgtjx BcarrxneSM1060-86-55Z28:07:01Addendum DocumentTXT1.2.840.650763.1.13.104.2.7.2 .632943|[id number] for patient gkca28885-0HcrrYNADXIKOWW[address]XgysSvrghuqidYlrouxposFYGY4276501410XHHE VAEKTXCRMSJFFAWDWE3989-09-45C27:07:011.2 .840.892076.1.72.3.15|1.2.840.834416.1.1 3.104.2.7.2.727879_[id number] [facility] 2023-03-23 08:37:57 yEWTP8/gPvdTME0hx0bS6t5hXoSgRqc4k1uP751j q1IiJAFHAKIywSz726WJqBJr4412-97-73F59:37 :57 Images from the original note were not included.Called patient for results. Patient verified she has been taking 5mg daily and also needs a refill. Patient verbalized understanding with no further questions. Routing to Andrew Pappas MD P Cardiology NurseINR noted to be at 2.9. Therapeutic. Please verify that she has been taking warfarin 5 mg daily. Repeat INR check in 1 week 03/29/2023. 04558-6Tzlreuzbl encounter ItusKS4027-81-63Z16:42:22Telephone encounter NoteTXT1.2.840.311436.1.13.104.2.7.2.727 879|[id number] for patient gzmn27887-7ZhdoMI597459976Kxzqntv Castillo [id number] TOROUTRYJRRLJGNCPXNFNY3578-14-23C11:42:221.2 .840.806350.1.72.3.15|1.2.840.144743.1.1 3.104.2.7.2.727879_[id number] Xiomara Haines [facility] 2023-03-22 14:17:31 KAQ2FdAfkBFnv/cVU5zrRpmTGyaCwntKvCYxA3OI 6Oh8kLw3oN4l0ioQZFG3jJgi9515-15-19E95:17 :31 Patient requesting refill and directions for WarfarinINR resulted today 37726-5Opxftidha encounter YvteTB2682-42-86Y99:19:33Telephone encounter NoteTXT1.2.840.291576.1.13.104.2.7.2.727 879|[id number] for patient zfnx96735-6WrwmAVMHOQOBNO[address] [id number] TOROMGXQAXDGPFKLDOPNIS4448-00-00I77:19:331.2 .840.033927.1.72.3.15|1.2.840.074219.1.1 3.104.2.7.2.727879_[id number] [facility] 2023-03-22 11:15:00 sBMiVSJieAOWfGxp7RsbJ3+goIegyQtqL9Fi04ha ZGV5RPJN2EkBQ0ccVhG8tXEm4540-87-25R71:15 :00 Images from the original note were not included.Venipuncture collection performed by clean technique on the right anticubitus. Total of 1 attempts were made. Slight pressure and a bandage/dressing were applied to the site(s). The patient experienced no complications. The following specimens were processed according to instructions and sent to [facility] laboratories per lab order on 03/22/2023: LT BLUE 1 SST RED LAV PPT DK GREEN (LiHep) DK GREEN (SodH) FRASER DK BLUE (K2) DK BLUE (S) ACD Blood Culture NIPT/NTD 71990-8Aobum ZvgmNF8839-59-97L42:20:21Nurse NoteTXT1.2.840.972900.1.13.104.2.7.2.727 879|[id number] for patient tsir18111-8Mwlxi NoteUT[address] Tyz[id number] XSZYLAEEWFBRGFFEVB2100-82-44Z94:20:211.2 .840.821771.1.72.3.15|1.2.840.418701.1.1 3.104.2.7.2.727879_[id number] [facility] 2023-03-21 14:35:26 od9aiuPTsK/mFcKtdqvD23JxIIJiRAynIuL13N2c thl26/ZWso/6Mr8Vu+tOvEij4439-06-45Q47:35 :26 Spoke with patient, verbalized understanding of lab order being placed. 01685-4Bhonoqzex encounter ArioPQ1826-65-27O77:36:10Telephone encounter NoteTXT1.2.840.167007.1.13.104.2.7.2.727 879|[id number] for patient wmed25206-5RrgkSF150253939Deqial L Reid RN[id number] SORENSENVXQFSBXXLRPEFRBQGV6138-66-14R68:36:101.2 .840.308157.1.72.3.15|1.2.840.986386.1.1 3.104.2.7.2.727879_[id number] Cinthia Nguyen RN [facility] 2023-03-21 14:13:52 VAFwLhamAIDQwdrkK0p/Mvx9p+0VZMXdsT/gn1OO 7uJ21CvFhavDOEwe8gOEE+Fg7320-55-16Q89:13 :52 Standing INR lab orders placed. 22128-0Deptwrarb encounter NljqAZ5095-37-70B12:15:47Telephone encounter NoteTXT1.2.840.929633.1.13.104.2.7.2.727 879|[id number] for patient izgw75928-6VajhHEDKQPUKOJ[id number] TOROCQOISVISIEUCXICCVY9958-74-17H14:15:471.2 .840.883146.1.72.3.15|1.2.840.931560.1.1 3.104.2.7.2.727879_[id number] [facility] 2023-03-21 10:29:33 kgJMt7tIBIsC4XQS4xObOYbZZ8cuyfDC7uoA9De3 wSnFlldfwqsjxMfyYQZrtn1w3022-37-50M04:29 :33 Spoke with DOP, needs clarification on what bloodwork her mother is supposed to be getting tomorrow. 84462-3Orldabmjn encounter GrtmNP7210-66-45Z66:47:46Telephone encounter NoteTXT1.2.840.356463.1.13.104.2.7.2.727 879|[id number] for patient tdnr74353-7MwkeOBCGEEDCKF[id number] FERREIRAKZBBZJQIRBYAYDXKRF7713-73-26U32:47:461.2 .840.078523.1.72.3.15|1.2.840.751967.1.1 3.104.2.7.2.727879_[id number] [facility] 2023-03-21 08:11:44 +gKcxk45vsigT8MI3y/bpiqaM/ZPzZLIpPRJUtOJ 5GBHQnwkgcFjDZKsbSlSmwmi1937-46-72H38:11 :44 Pt called requesting to speak with a nurse. She states that she may need more antibiotics and muscle relaxer. Please advise. Call back number: [phone] signed by Rosi Lundy at 03/21/2023 8:13 AM ZWE04932-5Vpezwhckg encounter OjabWB7910-65-30I51:13:26Telephone encounter NoteTXT1.2.840.019648.1.13.104.2.7.2.727 879|[id number] for patient lmcg25719-2SsewNR54615700Ziegxgi R MarroquinUT[id number] PYBXUQHETUGYNTBZSM8169-78-57O30:13:261.2 .840.310220.1.72.3.15|1.2.840.806929.1.1 3.104.2.7.2.727879_[id number] Rosi Lundy [facility] 2023-03-18 12:27:42 rbTLNYK8ETi33HpeIuWVePuCDxU6eqCQEno/BkJe 1ODvJUs71JVM7XWaYiRaN1Rv7785-07-47C57:27 :42 Pt discharged with diagnosis of acute cystitis without hematuria, strain of lumbar region. Printed and verbal instructions reviewed with and given to patient. No new prescriptions provided for this visit. Pt verbalized understanding of teaching and recommended follow-up. Denies questions or concerns at this time. Pt assisted to POV via wheelchair at discharge. Appears in no apparent distress. Daughter to transport patient home. 68873-9Nyaqiotlj department BowrIH6154-91-81H63:28:41Emergency department NoteTXT1.2.840.380550.1.13.104.2.7.2.727 879|[id number] for patient zudw47084-4YlyyCQQHNEKHXJ[address] QopfTkeatkoeeCicbeqvobJQJD2166606113DGOV FNXWWFDDUIDROILRRL4890-09-37X87:28:411.2 .840.107064.1.72.3.15|1.2.840.518484.1.1 3.104.2.7.2.727879_[id number] [facility] 2023-03-18 09:02:01 n7wE21Qq09Z3bewhwHSNc0BV1TOIX+TVOdKIc9wS pDYRm4iIISBdPI/BWmaq2wbs8017-18-72W29:02 :01 Pt c/o left flank pain x4 days. Denies vomiting but c/o nausea. Was diagnosed with UTI yesterday. Went this morning to send urine culture. PCP prescribed antibiotics and a muscle relaxer for pain. Has not picked up medication yet. PCP also ordered a CT scan for today but patient decided to come to ED for eval. 19322-8Agbfizqmd department Triage geyqDX0366-24-59O42:04:07[facility] Triage noteTXT1.2.840.321819.1.13.104.2.7.2.727 879|[id number] for patient vkrq82336-8Cwhqqjunf department [id number] N Dewoody RNUT[address] StreetPaesZtozhrwlgBgebssackZZLE5589655263QSCQ UDVJJJUOIUQYQCEWLS9923-85-11D70:04:071.2 .840.757959.1.72.3.15|1.2.840.476946.1.1 3.104.2.7.2.727879_[id number] Patricia Blanton RN [facility] 2023-03-18 08:39:50 HFMCpeib9OHJG30MYTbe7pWujQpM1g3JVImHKLBt He7Yl6yLO2t2MUrxvYDl9CWv1706-81-56M22:39 :50 Patient in lab to get urine sample doneShe is having back pain that is not improved with Tylenol #3We will order STAT CT to r/o infection and stoneStart antibioticsAwait cultureWill add muscle relaxerHowever ER is suggested as well for continued or worseningER for fever >101, chest pain, back pain, abdominal pain, weakness, dizziness, shortness of breath, worsening or any concerns 13185-9Wroevrbym encounter GaedHQ4539-10-76D45:44:09Telephone encounter NoteTXT1.2.840.704565.1.13.104.2.7.2.727 879|[id number] for patient ebzv63455-0BuydXKCNCKMGBW[id number] SANTIAGOPRNJYEAZEIMWXIIXLN1737-54-14Z08:44:091.2 .840.322832.1.72.3.15|1.2.840.088608.1.1 3.104.2.7.2.727879_[id number] [facility] 2023-03-18 08:15:00 PI2PXHySgcKI7bSPxjBjQqX0DuwM6OIluAFF0j+8 YhyvtF8AezOvLFJBb7FyXxg95595-50-12R88:15 :00 Images from the original note were not included.Patient has been identified by and name and was provided with cup, antiseptic towelette, and clean catch instructions. 2 urine specimen(s) sent. Unpreserved 1 Urine Culture 1 Aptima tube Other urine 45004-8Wwxkb OpiwUN9354-26-49D00:39:13Nurse NoteTXT1.2.840.927205.1.13.104.2.7.2.727 879|[id number] for patient ziod71567-5Xzbir [id number] SORENSENCCAGOELTMKPKMIJKFQ3672-59-76Q03:39:131.2 .840.212782.1.72.3.15|1.2.840.931811.1.1 3.104.2.7.2.727879_[id number] [facility] 2023-03-17 16:31:31 cdsKBK3vYx3cyFN20jT43vAZCPAruOdE2yhd/Dxx f6dBkQ9u7aGvFd9GnOqDy0Ud0857-83-08L85:31 :31 Patient stated that she is going in for a UA/CS in the AM with PCP 74614-7Hixwjunqf encounter UmuwIH3880-51-14Q27:32:23Telephone encounter NoteTXT1.2.840.079006.1.13.104.2.7.2.727 879|[id number] for patient pnje59563-1GreeZT105169600Azzsw A Roller RN[address] LeddPezfifbiwArkajoivbZCMM7338634419WUPJ EULJLEFKUPYKCMMVUJ1258-56-70T61:32:231.2 .840.429495.1.72.3.15|1.2.840.103692.1.1 3.104.2.7.2.727879_[id number] An Correa RN [facility] 2023-03-17 15:43:16 5sfQ+q1Q4Lj+OGCfrz8ZjGrrOzI0K/kLRC5KeO80 UThhsz73svhyMyDgnfDdlZCY0552-54-38V38:43 :16 Called patient back D/T positive urine specimen, CUSTOMER QUALITY SPECIALISTAshok Tabares wants her to get a urine culture, patient stated she was already in [place] so informed her to go to the lab first thing in the morning. Patient verbalized understanding. 31311-3Aqwnbwoja encounter MdhbSC9526-15-25X03:46:14Telephone encounter NoteTXT1.2.840.323154.1.13.104.2.7.2.727 879|[id number] for patient qsuv33839-0XjudNG971671498Igaxiyf Haines[address]TXTX[address]7555MATHIEU SORENSENZAZCEUDTWDNQUUDZEK2041-70-40X61:46:141.2 .840.142213.1.72.3.15|1.2.840.446590.1.1 3.104.2.7.2.727879_[id number] Xiomara Haines [facility] 2023-03-17 15:37:54 WOGyfkyh5rltfPtjxpKXnMUe1d4ers7jzNiPANwt RBDn/X7LG/Mpo9P+02cUG+QK8809-46-86B77:37 :54 I recommended patient come in for Urine Culture. I have it ordered at the lab. Can you see if she can do this, I also received UA from CardiologyI am not sure if the staff can add Culture?? 45660-3Swugkeugn encounter NoenZH2254-95-66C97:40:30Telephone encounter NoteTXT1.2.840.095405.1.13.104.2.7.2.727 879|[id number] for patient qmcy64825-9YlkkMVSNCFOABK[id number] TOROFWXPJLBKGEHDCNGPSV7720-58-96M22:40:301.2 .840.877423.1.72.3.15|1.2.840.104588.1.1 3.104.2.7.2.727879_[id number] [facility] 2023-03-17 15:00:00 q8cbq1o3WiwkOqoU6M+hiwc+gIlRHr8SLSDqq0i6 5QDf/F8rlqiWIb9DGsnSRq5y8731-68-10L82:00 :00 Images from the original note were not included.Per patient UA only. Hallie Karely Molina 03/17/2023 2:41 PMPatient has been identified by and name and was provided with cup, antiseptic towelette, and clean catch instructions. 1 urine specimen(s) sent. Unpreserved 1 Urine Culture Aptima tube Other urine 88211-5Wrscz ZbckFL0564-44-75T40:56:38Nurse NoteTXT1.2.840.852028.1.13.104.2.7.2.727 879|[id number] for patient kayy45743-6Qwnit Note[address] NvmrNm[id number] RXXLCWZSQWULOMFSZZ4233-49-66U19:56:381.2 .840.651782.1.72.3.15|1.2.840.362977.1.1 3.104.2.7.2.727879_[id number] [facility] 2023-03-17 14:47:17 sR9IPKS3g2u4kf5QFunpXJoilLmh0Hvgwt+eW6Au n5+/DdujVZ65VQP7gROB915Y7482-65-09N24:47 :17 Attempted to contact patient with results/recommendations. LVM for patient to return call to clinic 47126-4Ufdbyuvwq encounter NbeiAO8011-22-99H93:48:13Telephone encounter NoteTXT1.2.840.218241.1.13.104.2.7.2.727 879|[id number] for patient [id number] L Idris RN[address]Xa[id number] BYFGUIEEMNAVWSPBYN1044-39-47G60:48:131.2 .840.785316.1.72.3.15|1.2.840.611846.1.1 3.104.2.7.2.727879_[id number] Evelia Cali Idris RN [facility] 2023-03-17 14:41:28 MpWhLsquMDadbLR0F5oAk3VWVXnP1nstrb4IykmD Pnjd7y08xuUdbmE/srm1PsjU0557-24-66A70:41 :28 Recommend to stop by for urine testingI have ordered UA and CultureAlso ordered Xray of lower spineShe can get done while here today after Cardiology 95512-5Gcpkvxnfm encounter KzrgNB5249-50-12X37:42:19Telephone encounter NoteTXT1.2.840.769000.1.13.104.2.7.2.727 879|[id number] for patient mdko38193-7ErbhVHJQKBDWPT[id number] TOROHNCZRCGQNSGWMTDCPM1526-54-55P76:42:191.2 .840.777891.1.72.3.15|1.2.840.888669.1.1 3.104.2.7.2.727879_[id number] [facility] 2023-03-17 12:46:15 Q8Dz9M/hBjKYM0JfVqKCR1kO3nL5XdLoZVVCn5RG R3hRzC1haUWtsOlnRoDvBuOX5590-07-78G17:46 :15 Images from the original note were not included.Called patient for results, patient verbalized understanding patient stated her appointment with Nephrology is not till June and is having lots of kidney pain wants to know if she needs to come see you.Britni Tabares FNP [facility] Fam Med NurseAnemia is improved Britni Tabares FNP P Adc Pob Fam Med NurseBNP much improved Kidney function is stable, still recommend follow up with Nephrology TSH is now normal range, T4 is normal 34567-5Plxrhfxpw encounter ClppWE4905-73-52O43:51:49Telephone encounter NoteTXT1.2.840.155941.1.13.104.2.7.2.727 879|[id number] for patient ghwu58634-0UdazKMBFAAMSYR[address] Zf[id number] MNWMRFKLDTUIIKWOPV7141-91-70R83:51:491.2 .840.899203.1.72.3.15|1.2.840.159564.1.1 3.104.2.7.2.727879_[id number] [facility] 2023-03-15 16:15:00 ILN7O5Qc8Im6EcIz0sfIdbb/8KVSeERnUnWd7uK5 BsVEnf/KNbyOVZZ2b1oyzBmM0542-98-36Q11:15 :00 Images from the original note were not included.Venipuncture collection performed by clean technique on the left anticubitus. Total of 1 attempts were made. Slight pressure and a bandage/dressing were applied to the site(s). The patient experienced no complications. The following specimens were processed according to instructions and sent to [facility] laboratories per lab order on 03/15/2023: LT BLUE 1 SST 1 RED LAV 1 PPT DK GREEN (LiHep) DK GREEN (SodH) FRASER DK BLUE (K2) DK BLUE (S) ACD Blood Culture NIPT/NTD [id number] [id number]:25Nurse [id number] for patient [id number] NoteLN[address] Johns [id number] [id number] [facility]
[2023-09-16] MEDS: HYDROCODONE/APAP 7.5/325 MG TAB PO SCH (14:55)
[2023-09-16] MEDS ORDERED: BISACODYL 10 MG RECTAL SUPP PR PRN (15:26)
[2023-09-16 15:52] VITALS: BMI 24.7
[2023-09-16] MEDS: METOPROLOL TAR 25 MG TAB PO SCH (17:51)
[2023-09-16] MEDS: DOCUSATE NA/SENNA CONC 1 TAB PO SCH (19:42)
[2023-09-16] MEDS: APIXABAN 2.5 MG TABLET PO SCH (19:42)
[2023-09-16] MEDS: ATORVASTATIN 40 MG TAB PO SCH (19:42)
[2023-09-16] MEDS: MELATONIN 3 MG TABLET PO SCH (19:43)
[2023-09-16] MEDS: MIRTAZAPINE 15 MG TAB PO SCH (19:44)
[2023-09-16] MEDS: [UNRECOGNIZED DRUG - OTHER] OPTH SCH (19:45)
[2023-09-16 19:59] LABS: Specific Gravity 1.009 (1.005-1.030); Urine Bacteria None Seen /HPF (<20); Urine Bilirubin NEGATIVE (Negative); Urine Blood 1+ (Negative); Urine Clarity Turbid (Clear); Urine Color Colorless (Yellow); Urine Glucose NEGATIVE (Negative); Urine Mucus Slight /HPF (None Seen); Urine Protein TRACE (Negative); Urine Urobilinogen Normal (Normal); Urine pH 7.5 (5.0-7.0)
[2023-09-17] MEDS: LEVOTHYROXINE SOD 0.088 MG TAB PO SCH (05:13)
[2023-09-17] MEDS: PANTOPRAZOLE 40MG TABLET PO SCH (06:22)
[2023-09-17] MEDS: FUROSEMIDE 40 MG TABLET PO SCH (06:50)
[2023-09-17] MEDS: AMIODARONE HCL 200 MG TAB PO SCH (06:50)
[2023-09-17 06:58] LABS: Absolute Lymphocytes (CBC) 0.8 K/uL (0.7-4.9); Hematocrit 28.6 % (36.0-45.0); Lymphocytes % 9.3 % (15.3-44.8); MCV 90.5 fL (80-100); MPV 9.6 fL (7.6-11.3); Platelets 198 thou/uL (152-406); RBC Red Blood Cell Count 3.16 M/uL (3.86-4.86)
[2023-09-17 07:24] LABS: Albumin 1.7 g/dL (3.4-5.0); Magnesium 1.9 mg/dL (1.6-2.4); Potassium 4.2 mEq/L (3.5-5.1); Prealbumin 7.3 mg/dL (20-40)
[2023-09-17] MEDS: DRISDOL (VITAMIN D=ERGOCALCIFEROL) 50000 UNIT CAP PO SCH (08:33)
[2023-09-17] MEDS: CRANBERRY FRUIT EXTRACT 200 MG CAP PO SCH (08:33)
[2023-09-17] MEDS: CLOPIDOGREL 75 MG TABLET PO SCH (08:34)
[2023-09-17] MEDS: POLYETHYL GLY 3350 17 GM/DOSE PO SCH (08:34)
--- NOTE | 2023-09-17 09:17 | P.HP ---
Certification for Inpatient Patient admitted to: Inpatient With expected LOS: >2 Midnights Patient will require the following post-hospital care: Rehabilitation Practitioner: I am a practitioner with admitting privileges, knowledge of patient current condition, hospital course, and medical plan of care. Services: Services provided to patient in accordance with Admission requirements found in Title 42 Section 412.3 of the Code of Federal Regulations Patient History Date of Service: 09/17/23 Reason for admission: Rehab History of Present Illness: Patient is a 78yo female with recurrent admissions for severe nausea and vomiting. Patient was diagnosed with a parapneumonic effusion, and patient was started on antibiotics. She was also found to be COVID positive. She also had a chest tube placed. Parapneumonic effusion resolved. She has a known history of atrial fibrillation, but heart rate has been more erratic than usual. Patient had a DCCV. Patient was transferred from [facility] to inpatient rehab yesterday. She still has poor appetite and feels weak but improving with PT/OT. Keep hernandez catheter in until she is seen by urology outpatient for voiding trial. Allergies amoxicillin Allergy (Verified 05/09/20 18:50) Nausea/Vomiting prednisone Allergy (Verified 09/16/23 11:47) Nausea/Vomiting Home Medications: Amiodarone HCl [Pacerone] 100 mg PO DAILY 09/16/23 Apixaban [Eliquis] 2.5 mg PO BID 09/16/23 Atorvastatin Calcium [Lipitor] 40 mg PO BEDTIME 09/16/23 Clopidogrel Bisulfate [Plavix] 75 mg PO DAILY 09/16/23 Ergocalciferol (Vitamin D2) [Vitamin D2] 50,000 unit PO EVERY 7TH DAY 09/16/23 Furosemide [Lasix] 40 mg PO DAILY 09/16/23 Hydrocodone 7.5/APAP 325 [[place] 7.5/325 mg*] 1 tab PO TID 09/16/23 Hypromellose [Tears Lubricant Eye Drop] 1 gtt LEFT EYE TID 09/16/23 Levothyroxine [Synthroid] 88 mcg PO OEVYA2FR 09/16/23 Melatonin [Melatonin*] 3 mg PO BEDTIME 09/16/23 Metoprolol Tartrate [Lopressor] 12.5 mg PO BID 09/16/23 Mirtazapine [Remeron] 15 mg PO BEDTIME 09/16/23 Ondansetron [Zofran (Odt)*] 4 mg PO Q4H PRN 09/16/23 Pantoprazole [Protonix Tab] 40 mg PO DAILY 09/16/23 Polyethyl Gly 3350 [Glycolax*] 17 gm PO DAILY 09/16/23 - Past Medical/Surgical History Has patient received pneumonia vaccine in the past: Yes Diabetic: No -: CVA -: HTN -: Hypothyroidism -: CKD -: C Section -: Colonoscopy -: Thyroidectomy -: Tonsillectomy -: Cataract surgery - Family History Father Medical History: Heart disease Mother Medical History: Lung disease - Social History Smoking Status: Never smoker Alcohol use: No CD- Drugs: Yes Caffeine use: No Place of Residence: Home Review of Systems 10-point ROS is otherwise unremarkable Physical Examination - Vital Signs Temperature: 97.2 F Blood Pressure: 146/67 Pulse: 66 Respirations: 19 Pulse Ox (%): 92 - Physical Exam General: Alert, In no apparent distress, Oriented x3 HEENT: Atraumatic, PERRLA, Mucous membr. moist/pink, EOMI, Sclerae nonicteric Neck: Supple, 2+ carotid pulse no bruit, No LAD, Without JVD or thyroid abnormality Respiratory: Clear to auscultation bilaterally, Normal air movement Cardiovascular: Regular rate/rhythm, Normal S1 S2 Gastrointestinal: Normal bowel sounds, No tenderness Musculoskeletal: No tenderness Integumentary: No rashes Neurological: Normal gait, Normal speech, Normal strength at 5/5 x4 extr, Normal tone, Normal affect Lymphatics: No axilla or inguinal lymphadenopathy - Studies Laboratory Data (last 24 hrs) 09/17/23 09/17/23 06:41 06:41 WBC 8.20 Hgb 9.4 L Hct 28.6 L Plt Count 198 Sodium 137 Potassium 4.2 BUN 33 H Creatinine 2.93 H Glucose 92 Magnesium 1.9 Assessment & Plan - Problems (Diagnosis) (1) Atrial fibrillation Current Visit: Yes Status: Acute (2) Parapneumonic effusion Current Visit: Yes Status: Acute (3) Pneumonia Current Visit: Yes Status: Acute (4) Type 2 DM with CKD stage 3 and hypertension Current Visit: Yes Status: Acute (5) Critical illness myopathy Current Visit: Yes Status: Acute (6) Anorexia Current Visit: Yes Status: Acute (7) Severe malnutrition Current Visit: Yes Status: Acute (8) Hypoalbuminemia Current Visit: Yes Status: Acute - Plan PLAN: - Advance Directives Does patient have a Living Will: No Does patient have a Durable POA for Healthcare: Yes
[2023-09-17] MEDS: ENSURE MAX PROTEIN 330 ML LIQUID PO SCH (11:30)
[2023-09-17] MEDS: HYDROCODONE/APAP 5/325 MG TAB PO PRN (13:12)
[2023-09-17] MEDS: METOPROLOL TAR 25 MG TAB PO SCH (19:31)
[2023-09-17] MEDS: JUVEN PACKET PO SCH (19:33)
[2023-09-18] MEDS: LEVOTHYROXINE SOD 0.088 MG TAB PO SCH (05:48)
[2023-09-18 12:19] LABS: UR PROTEIN 221.4 mg/dL (<11.9); Urine Protein/Creatinine Ratio 3.88 ratio (<0.15)
--- NOTE | 2023-09-18 13:58 | RAD REPORT ---
EXAM DESCRIPTION: Yoly Single View09/18/2023 1:42 pm CLINICAL HISTORY: COPD COMPARISON: none FINDINGS: Bibasilar lung opacities Probable small pleural effusions Heart is moderately enlarged IMPRESSION: Bibasilar lung opacities may represent atelectasis or infiltrate.
--- NOTE | 2023-09-18 14:57 | CON ---
Date of Consultation: 09/18/2023 Reason For Consultation: Elevated BUN and creatinine, fluid management. History Of Present Illness: This is a pleasant 78-year-old female with significant past medical history of hypertension, hyperlipidemia, AFib status post cardioversion, hypothyroidism status post thyroidectomy, renal artery stenosis status post stent on the left kidney nonfunction, right kidney stage IV. Baseline creatinine of 2 with GFR of 25 as of mid August. The patient recently admitted to the hospital in end of July to [facility] with COVID pneumonia and pleural effusion, transferred to [facility], treated. Her hospital course was complicated with acute kidney injury. Creatinine up to 2.9 with GFR of 15. The patient had AFib with RVR, had cardioversion. The patient was transferred to rehab for continues care. The patient denied any fever, any chills. Past Medical History: Includes: 1. COVID pneumonia. 2. Pneumonia with pleural effusion. 3. Chronic kidney disease, stage 4, baseline creatinine 2. 4. GFR 25, as of August 2022, secondary to renal artery stenosis, renal mass loss, nonfunctional right kidney with stent on the left kidney. 5. Renal artery stenosis as above. 6. Hypertension. 7. Hypothyroidism. Past Surgical History: Includes: 1. Renal stent. 2. Cardioversion. 3. Thyroidectomy. 4. Tonsillectomy. 5. Cataract surgery. 6. . Allergies: TO AMOXICILLIN AND PREDNISONE. Home Medications: Include amiodarone, Eliquis, atorvastatin, Plavix, ergocalciferol, Lasix 40 daily, hydrocodone, melatonin, metoprolol, mirtazapine, pantoprazole. Family History: Positive for CAD and hypertension. Social History: Denied smoking, denied drinking, denied drugs abuse. Review of Systems: Head and Neck: No red eye. No ear pain. GI: No nausea, no vomiting. : No polyuria, no dysuria, no hematuria. ELECTRIC ARC WELDER: No vaginal discharge. Respiratory: Has no shortness of breath. Cardiovascular: Has orthopnea. Endocrine: No polydipsia. Skin: No rash. Neuro: Has neuropathy. Musculoskeletal: Generalized fatigue. Physical Examination: Vital Signs: Blood pressure 163/70, pulse of 63, afebrile. Chest: Clear to auscultation. Heart: S1, S2 regular. Abdomen: Soft, nontender. Extremities: No edema. Neurologic: Alert. No focality. Laboratory Data: WBC 8.2, hemoglobin 9.4. Sodium 137, potassium 4.2, bicarb 34, BUN 33, creatinine 2.9, GFR of 16, calcium 9.2, magnesium 1.9, albumin 1.7, corrected calcium is 10.8, PTH still pending. Urinalysis; PC ratio 3.8. Current Medication: As above. Assessment And Plan: 1. Acute kidney injury on advanced chronic kidney disease on solitary kidney. Looked to me on the dry side. I am going to go ahead and decrease Lasix to 20 mg. We will give the history of obstructive uropathy with Luis dependent. We will maintain Luis with anemia to rule out any component of light chain disease. I will get chest x-ray for better evaluation of her fluid status and we will follow up the patient. 2. Anemia, mostly secondary to chronic kidney disease. I will send for iron study and protein electrophoresis. 3. Hypertension, controlled, not optimal with the presence of worsening kidney function. I am going to go ahead and decrease Lasix. We will place the patient on nitroglycerin patch and we will follow up the patient. 4. Coronary artery disease with congestive heart failure, currently patient looked to me on the dry side. Decrease Lasix to 20 mg. 5. Hypothyroidism as by primary. 6. Deconditioning as by primary. Thank you, Dr. Richey for allowing us to participate in the care of your patient. Time spent examining the patient [id number] reviewing that the lab and the radiology placing orders or discussing the case with the patient discussing the case with the steamboat inspector including hospitalist and nursing staff more than 75 minutes KRISTIN Voice ID: [id number] Report ID: [id number] JATIN
[2023-09-19] MEDS: ONDANSETRON 4 MG (ODT) TAB PO PRN (04:03)
[2023-09-19] MEDS: FUROSEMIDE 20 MG TABLET PO SCH (07:16)
[2023-09-19 07:36] LABS: RBC Red Blood Cell Count 3.02 M/uL (3.86-4.86)
[2023-09-19 08:14] LABS: Albumin 1.8 g/dL (3.4-5.0); Ferritin 555.4 ng/mL (8-388); Potassium 3.5 mEq/L (3.5-5.1)
[2023-09-19 08:21] LABS: Thyroid Stimulating Hormone 9.09 uIU/mL (0.358-3.740)
[2023-09-19] MEDS: CYANOCOBALAMIN 1000MCG/ML INJ IM ONE (14:36)
[2023-09-19] MEDS: HYDROCODONE/APAP 5/325 MG TAB PO PRN (14:36)
[2023-09-19] MEDS: MEGESTROL 40 MG TAB PO SCH (19:48)
[2023-09-19] MEDS: ENSURE ENLIVE 237 ML CAN PO SCH (19:50)
--- NOTE | 2023-09-19 22:39 | RAD REPORT ---
EXAM DESCRIPTION: RAD - Abdomen 1 View (KUB) - 09/19/2023 3:28 pm CLINICAL HISTORY: ABD pain COMPARISON: No comparisons TECHNIQUE: Single AP view of the abdomen. FINDINGS: Nonobstructive bowel gas pattern. No air-fluid levels, free air, or pneumatosis. Masslike region with heterogeneous calcifications in the right aspect of the pelvis, favoring a uteri ne fibroid. Few small pelvic phleboliths. No significant bony abnormality. IMPRESSION: Nonobstructive bowel gas pattern. Findings as above.
--- NOTE | 2023-09-20 03:12 | PN ---
Date of Progress Note: 09/19/2023 Chief Complaint: Acute kidney injury on advanced chronic kidney disease. The patient has nonoliguri c urine output. Currently, she is undergoing physical therapy. The patient denies chest pain, palpi tation. Subjective: The patient is a 78-year-old woman with significant past medical history of hypertension , hyperlipidemia, atrial fibrillation, status post cardioversion, . The patient recently w as admitted to the hospital and the hospital course was complicated by acute urinary tract infection, also with pneumonia and pleural effusion. She was transferred to [facility] and received a ntibiotic. The patient has acute kidney injury. Serum creatinine level is up to 2.9, GFR 15. The p atient was found to have atrial fibrillation with rapid ventricular response previously and she had c ardioversion. Review of Systems: Denies chest pain, palpitation. Physical Examination: Lungs: Diminished breath sounds at bases. Heart: S1, S2. Abdomen: Soft. Extremities: Minimal edema. Impression And Plan: 1.The patient currently is undergoing monitor, fluid balance, and continue to re-evaluate blood pressure medication. Avoid TAN inhibitor, angiotensin receptor jessica. 2.Renal osteodystrophy. Monitor phosphorus level and calcium level. 3.Anemia on chronic kidney disease. Monitor hemoglobin level. 4.Avoid nephrotoxic medication. The patient needs to avoid contrast exposure. Plan is to monitor urine output. Diuretic dose was reduced. MOUNIKA/MODL Voice ID: [id number] Report ID: [id number]
--- NOTE | 2023-09-20 04:42 | HP ---
Date of Admission: 09/16/2023 Time Of Service: 1 p.m. Chief Complaint: "I became weak in the legs with falling." History Of Present Illness: Ms. Lovely Roblero is a 78-year-old patient with carotid artery disease, status post stent placement in November 2017, hypertension, stage 3 kidney disease, stroke, atrial fibr illation and flutter with ablation in 05/2023, hypothyroidism, was independent, living alone with her children when she began to not thrive in September 2022. She started having difficulty ambulating wi th weakness of lower extremity resulting in multiple falls. At one incident after falling, she ended up with an L1 compression fracture. However, no intervention was done. She was left to heal by sec ondary intention. However, again failed to thrive and had poor nutrition and hydration and was admit rachel to hospital for workup. She was treated with steroids, but had a reaction developing atrial fibr illation and had to be monitored in ICU. She was eventually able to be discharged and was treated wi an ablation for atrial fibrillation in May of last year. She began to walk within the room wi out an assistive device and appeared to be doing well. However, in July, she was taken back to [facility] with pneumonia and was discharged home. She never recovered well. She had persistent shortnes s of breath, vomiting, and nausea, which did not respond well to Zofran. She had poor eating and dri nking and again was brought in for dehydration. White blood cell count found to be 19,000 and creati nine elevated to 2.97 and she was transferred to [facility] for higher level of care. She was f ound to have COVID-19 positivity. She was treated appropriately with per protocol. She did have epi sodes of elevation of her heart rate to 119, respiratory rate elevated to 20s, and left-sided pleural effusion on chest X ray. She received thoracentesis and chest tube. On September 08, chest tube was removed. The repeat imaging showed no additional fluid collection. She was found to have urinary re tention and had a Luis catheter in place and she had several trials that she had failed. She was se nt from the ICU to the floor on September 10 and spent 12 days in ICU. During that time, she again had a repeat COVID test on the and she was still positive. She had a low-grade fever at 99.5 on Ja nuary 3. Her CO2 was down to 34, improved creatinine at 1.91, calcium 8.4, hemoglobin 8.1, and plate lets 145. She was maintaining good oxygen on room air, but again required significant assistance per forming ordinary activities of daily living including transferring, ambulation, and maintaining an up right posture. It was determined that she had myopathy of critical illness and was therefore felt to be an appropriate candidate for aggressive inpatient rehabilitation along with management of her com orbid conditions. Past Medical History: As noted above and in addition has hypothyroidism. Past Surgical History: Goiter removed, carotid artery angioplasty, tonsillectomy, cataract surgery, intraocular lens placement, esophagogastroduodenoscopy, colonoscopy, , aortogram. Imaging/x-rays: Chest x-ray on 08/29/2023 showed stable cardiomegaly, moderate to large left and sma ll right pleural effusion with associated atelectasis versus infiltrate. While hospitalized, she was seen by the renal service, cardiology service, hospitalist service and wa s monitored on telemetry and ICU was noted. Allergies: AMOXICILLIN AND PENICILLIN. Medications: Amiodarone 100 mg daily, Eliquis 2.5 mg twice daily, Lipitor 40 mg at bedtime, duloxeti ne 10 mg per rectum as needed, Plavix 75 mg daily, vitamin D 50,000 units weekly, Lasix 20 mg daily, Minerva 5/325 every 4 hours as needed, levothyroxine 0.112 mg daily, Megace 40 mg twice daily, melatoni n 3 mg at bedtime, Lopressor 12.5 mg twice daily, Remeron 15 mg at bedtime, Ensure Enlive 237 mL twic e daily, Zofran 4 mg every 8 hours, Protonix 40 mg daily, Senokot-S 2 at bedtime. Family History: Noncontributory. Social History: No alcohol, tobacco, or IV drug use. Review of Systems: Some [id number] weakness in the lower extremities, difficulty with mild shortness of breath. N o significant pain and no current fevers or chills. Mild myalgias or arthralgias as noted. No heada riya. No rash. No active psychiatric issues. Urinary retention noted. Some difficulty with bowel m ovements as well. Current Level Of Functioning: Eating, supervision. Oral hygiene and toileting, moderate assistance. Showering, moderate assistance. Upper body dressing, moderate assistance. Lower body dressing, ma ximal assistance. Donning and doffing shoes, maximum assistance. Rolling from left to right, sit to stand and sliding to the side of bed along with chair to bed transfer, moderate assistance. Ambulat ion, maximum assistance. Physical Examination: Vital Signs: Blood pressure 136/78, pulse of 87, respiratory rate 16, temperature 96.2, oxygen satur ation 92%. General: Ms. Roblero is resting comfortably in bed. She is in no acute distress. She appears normoce phalic, atraumatic. Sclerae anicteric. Oropharynx pink, moist. Neck: Supple. Chest: Decreased breath sounds. Abdomen: Soft. Extremities: Show mild edema in the extremities. She has no focal deficits, but mild diffuse weakne ss, some more proximal than distal in the lower and upper extremities. Stocking-glove loss, light to uch, temperature. Laboratory Studies: White blood cell count 8.2, hemoglobin 9.4, platelets 198. Sodium 137, potassiu m 3.5, chloride 101, carbon dioxide 31, BUN 36, creatinine 3.19. Note: She is followed by the renal service. Her TSH 9.09, her free T4 1.31. Parathyroid hormone 22.3. Albumin 1.8. Ferritin 555, tr ansferrin 83, iron 27.0, uric acid 9.6. Urinalysis is turbid, pH 7.5, esterase 25, red blood cells 5 to 10, budding yeast moderate, random total urine 221.4, total protein is trace elevated. X-ray/imaging: She has a KUB that is pending. In addition, a chest x-ray from the 4th showed bibasi lar lung opacities, may represent atelectasis or infiltrate. Rehabilitation And Medical Assessment And Plan: Ms. Roblero is admitted to the rehabilitation unit wit h impairment category 06, neurologic condition. Her impairment group code is 03.8 neuromuscular diso rder. Her etiologic diagnosis, critical illness myopathy. Additional diagnoses acute: Chronic milagros l failure, atrial fibrillation, aortic stenosis, COVID-19 positivity, debility, decreased mobility, d ecreased physical functioning, dehydration, diastolic congestive heart failure, hypertension, hypergl ycemia, hyponatremia, malnutrition, pleural effusion, pneumonia, urinary retention. Plan: Ms. Roblero will have physical, occupational, and speech therapy for 3-1/2 hours, 5 of 7 days. She will continue Eliquis 2.5 mg twice daily for DVT prophylaxis, amiodarone 100 mg daily for heart r ate and blood pressure control, Senokot-S 2 at bedtime for constipation, Protonix 40 mg daily for GE reflux, Ensure Enlive 237 mL twice daily for malnutrition, Remeron 50 mg at night for insomnia. Cont inue with Lopressor 12.5 mg twice daily for heart rate and blood pressure control. Levothyroxine is now 0.112 mg daily for hypothyroidism, Lasix 20 mg daily, vitamin D 50,000 units daily, Plavix 75 mg daily, Lipitor 40 mg at bedtime. Comorbidities That Are Impacting Rehabilitation: Currently, the recent COVID pneumonia makes it diff icult for her to have good respiration. At this point, she will have incentive spirometry to help im prove her ability to oxygenate and will be managed also by the renal service for renal insufficiency. Rehab Specific Plan: Ms. Roblero will have physical, occupational, and speech therapy for 3-1/2 hours, 5 of 7 days to improve her ability to mobilize more than household distance of 50 feet, to be able t o go up and down 10 steps, and to perform all cognitive functioning independently. She will have the occupational therapy to perform all of her dressing, upper and lower body transferring, toileting, a nd all other activities. Ms. Roblero has a good understanding of the process of admission to the inpatient rehabilitation facili and that she will benefit from physical, occupational, and speech therapy. If need be, along with the renal service, the hospitalist service, cardiology service, and pulmonary service may be consult ed. Given her complex medical condition and risk of further complications, rehabilitation cannot be safely or effectively performed at a lower level facility such as long term. Barriers To Discharge: Currently, the respiratory status may be the biggest barrier given her recent COVID-19 infection and her shortness of breath. In addition, some difficulty with the muscle weakne ss making her high fall risk. She will have fall precautions at all times. Gait, belt, and walker t o be used at all times. Length Of Stay: About 12 days. Disposition: Home with family. Prognosis: Good. Rehabilitation Goals: 1.Become independent with upper and lower body dressing, toileting, transferring, showering, donning and doffing shoes. 2.Independently ambulate 250 feet with a rolling walker. 3.Independently propel a wheelchair 250 feet. 4.Independently go up and down 10 steps with bilateral handrails. 5.Independently perform all cognitive functioning, managing medications and addressing all of her ph ysician followups. The above goals were reviewed with Ms. Roblero and she is in agreement. By signing this document, I acknowledge I personally performed a full physical examination on Ms. Alexandru chou no later than 24 hours after admission to the inpatient rehabilitation facility and determined queenie t she is able to tolerate the above course of treatment at an intensive level for a reasonable period of time. A detailed individualized plan of care for her will be completed by hospital day 4 based o n the preadmission screen, history and physical, and therapy evaluations. IDA Voice ID: [id number]
[2023-09-20] MEDS: LEVOTHYROXINE SOD 0.112 MG TAB PO SCH (06:07)
[2023-09-20] MEDS ORDERED: LEVOTHYROXINE SOD 0.025 MG TAB PO SCH (06:30)
[2023-09-20 07:32] LABS: Albumin 1.9 g/dL (3.4-5.0); Phosphorus 2.7 mg/dL (2.5-4.9); Potassium 3.8 mEq/L (3.5-5.1)
[2023-09-20] MEDS: ONDANSETRON 4 MG (ODT) TAB PO PRN (11:59)
[2023-09-21] MEDS ORDERED: DOCUSATE NA/SENNA CONC 1 TAB ONE (04:41)
[2023-09-21] MEDS: DOCUSATE NA/SENNA CONC 1 TAB PO SCH (04:43)
[2023-09-21 05:25] LABS: Phosphorus 2.9 mg/dL (2.5-4.9); Potassium 3.8 mEq/L (3.5-5.1)
[2023-09-21] MEDS: SOD FERRIC GLUC COMPLX/SUCROSE 250 MG in NA CHLORIDE 0.9% 250 ML IV SCH (11:32)
--- NOTE | 2023-09-21 13:24 | PN ---
Date of Progress Note: 09/21/2023 Subjective: Patient was admitted after long hospitalization with COVID and pneumonia. Patient had advanced chronic kidney disease. Kidney function continued to decline. Patient is feeling weak today. Physical Examination: VITAL SIGNS: Blood pressure 160/72, pulse of 59. Chest: Faint rales bilateral base. Heart: S1, S2 regular. Abdomen: Soft, nontender. Extremities: Trace edema. Neuro: Alert. No focality. Laboratory Data: Hemoglobin 9.4. Sodium 136, potassium 3.8, bicarb 29, BUN 32, creatinine 3.3, calcium 9.1. Iron saturation 23. TSH of 9, PTH 22. PC ratio 3.8. Current Medications: The patient is on include: 1. Megace. 2. Plavix. 3. Eliquis. 4. Atorvastatin. 5. Amiodarone. 6. Mirtazapine. 7. Lasix 20 daily. 8. Ensure. 9. Bisacodyl. 10. Cranberry juice. Assessment And Plan: 1. Chronic kidney disease, stage 4. Continue to progress. Patient has some mild uremic symptoms and has anemia. I will discuss with family if patient's symptoms continue to persist. Patient may need to be initiated on renal replacement therapy. We will discuss and we will follow up the patient closely. 2. Iron deficiency anemia. We will start on IV iron. 3. Hypertension, controlled, optimal. Continue current treatment. 4. Nephrotic range of proteinuria. We will avoid any TAN inhibitor or ARB for the time being giving the kidney function. 5. Fatigue, possible secondary to anemia/hypothyroidism. Levothyroxine has been increased. Patient will start on IV iron. We will follow up. We will discuss with the family regarding possible need to initiate renal replacement therapy. We will follow up. Time spent examining the patient [id number] reviewing that the lab and the radiology placing orders or discussing the case with the patient discussing the case with the steam box tender including hospitalist and nursing staff more than 35 minutes KRISTIN Voice ID: [id number] Report ID: [id number] MTDD
[2023-09-21 14:02] LABS: Alpha-1-Globulins 0.5 g/dL (0.2-0.3); Gamma Globulins 0.4 g/dL (0.8-1.7); INTERPRETATION REPORT
--- NOTE | 2023-09-21 21:00 | PN ---
Date of Progress Note: 09/21/2023 Time Of Service: 1:30 p.m. Subjective: Ms. Roblero is resting comfortably in bed. She is in no significant distress. No complai nts. She does have mild myalgias, arthralgias, and some weakness in the extremities. Objective: No recent fevers or chills, nausea, or vomiting. Mild myalgias, arthralgias. No rash. No headache, weight change. No other complaints on review of systems and objective. Physical Examination: Vital Signs: Blood pressure 160/72, pulse 59, respiratory rate 16, temperature 97.3, oxygen saturati on 94%. Weight 125 pounds, height 4 feet 11 inches, BMI 25.3. General: Ms. Roblero is in bed, waiting for another therapy session to begin. HEENT: She is normocephalic, atraumatic. Sclerae anicteric. Oropharynx pink and moist. Neck: Supple. Chest: Clear. Extremities: She has diffuse weakness to lower and upper extremities. Laboratory Studies: White blood cell count 8.2, hemoglobin 9.4, platelets 198. Sodium 136, potassiu m 3.8, chloride 100, carbon dioxide 29, BUN 32, creatinine 3.36. It is noted that she is followed by Renal Service. Her GFR is 14. Glucose 94. Calcium 9.1, phosphorus 2.9, albumin 2.0. Urinalysis: Moderate budding yeast, 5 to 10 red blood cells, 25 leukocyte esterase, 1+ blood, pH 7.5, clarity is turbid. Urine random protein is elevated at 221.4. Urine creatinine normal at 57. Her protein to creatinine ratio elevated at 3.88. Just trace total protein in the urine. X-ray/imaging: No new x-rays or imaging. Medications: [place] 5/325 every 4 hours as needed; Cordarone 100 mg daily; Eliquis 2.5 mg twice daily ; Lipitor 40 mg at bedtime; Dulcolax 10 mg per rectum as needed; Plavix 75 mg daily; vitamin D 2000 u nits weekly; ferrous complex 250 mg in 227 mL IV every 72 hours, that is iron supplementation; Lasix 20 mg daily; Synthroid 0.112 mg daily; Megace 400 mg twice daily; melatonin 3 mg at bedtime; Lopresso r 12.5 mg twice daily; Remeron 15 mg at bedtime; Ensure Enlive 237 mL twice daily; Zofran 4 mg every 4 hours as needed; Protonix 40 mg daily; Senokot-S 2 at bedtime. Progress Made With Physical And Occupational Therapy: With physical therapy today, she was able to a mbulate 20 feet three times, 30 feet twice, and 10 feet twice with contact guard assistance. Emphasi s was placed on upright posture and pacing. She was limited by back pain and fatigue. Her multiple yufcjz-mm-wlb transfers were done with standby assistance and nhd-xh-itljk transfers done with contac t guard assistance. With occupational therapy, from wheelchair to edge of bed transfer was done with contact guard assistance. Minimum assistance for lsf-jv-ocpuye transfers. She did use a 2-pound Th era ball to improve her strength and safety performance while transferring and to improve endurance. She was encouraged to use incentive spirometry to help her regain significant oxygenation and streng th. Ms. Roblero is beginning to make fair progress overall with her physical and occupational therapy, but still has a long way to go. She is on hospital day 5. Assessment: Ms. Roblero is a 78-year-old patient, admitted to the rehabilitation unit with critical il lness myopathy, for which she is recovering at a fair pace. She does have chronic renal failure, atr ial fibrillation, aortic stenosis. She had COVID positivity, debility, decreased mobility, decreased physical functioning, dehydration, congestive heart failure, hypertension, hyponatremia, malnutritio n, pleural effusion, pneumonia, urinary retention. Plan: 1.She will continue with physical and occupational therapy for 3 hours a day, 5 of 7 days. 2.She has multiple comorbid medications, which are listed and those are addressed by continuing her list of medications also noted above. Comorbidities That Are Continuing To Impact Rehabilitation: Currently, shortness of breath is a limi ting factor. It is worked on by using incentive spirometry, nebulizer treatment as appropriate. Als o, her renal insufficiency is addressed by Renal Service, and they are monitoring for any worsening and the potential for dialysis if needed. LB/MODL Voice ID: [id number] Report ID: [id number]
[2023-09-22 05:02] LABS: Absolute Lymphocytes (CBC) 0.8 K/uL (0.7-4.9); Hematocrit 24.2 % (36.0-45.0); Lymphocytes % 11.4 % (15.3-44.8); MCV 89.9 fL (80-100); Platelets 318 thou/uL (152-406); RBC Red Blood Cell Count 2.69 M/uL (3.86-4.86)
[2023-09-22 05:23] LABS: Albumin 1.7 g/dL (3.4-5.0); Potassium 3.8 mEq/L (3.5-5.1)
[2023-09-22 05:29] LABS: Magnesium 1.7 mg/dL (1.6-2.4); Prealbumin 12.8 mg/dL (20-40)
--- NOTE | 2023-09-22 13:26 | P.RH.PN ---
Estimated Length of Stay: 13 Expected Discharge Date: 09/27/23 Discharge Disposition Plan: Home Family Support: Yes Correction Goal: Mobility, Transfers, Self Care Vital Signs: Last Vital Signs Temp 97 F 09/22/23 07:04 Pulse 59 09/22/23 07:36 Resp 16 09/22/23 12:22 BP 166/71 H 09/22/23 07:36 Pulse Ox 95 09/22/23 12:22 Laboratory: Laboratory Last Values WBC 6.60 thou/uL (4.3-10.9) 09/22/23 04:37 RBC 2.69 M/uL (3.86-4.86) L 09/22/23 04:37 Hgb 8.0 g/dL (12.0-15.0) L 09/22/23 04:37 Hct 24.2 % (36.0-45.0) L 09/22/23 04:37 MCV 89.9 fL (80-100) 09/22/23 04:37 MCH 29.7 pg (27.0-35.0) 09/22/23 04:37 MCHC 33.1 g/dL (32.0-36.0) 09/22/23 04:37 RDW 17.7 % (12.1-15.2) H 09/22/23 04:37 Plt Count 318 thou/uL (152-406) 09/22/23 04:37 MPV 9.0 fL (7.6-11.3) 09/22/23 04:37 Neutrophils % 71.4 % (41.7-73.7) 09/22/23 04:37 Lymphocytes % 11.4 % (15.3-44.8) L 09/22/23 04:37 Monocytes % 14.1 % (3.3-12.3) H 09/22/23 04:37 Eosinophils % 1.9 % (0-4.4) 09/22/23 04:37 Basophils % 1.2 % (0-1.3) 09/22/23 04:37 Absolute Neutrophils 4.7 K/uL (1.8-8.0) 09/22/23 04:37 Absolute Lymphocytes 0.8 K/uL (0.7-4.9) 09/22/23 04:37 Absolute Monocytes 0.9 K/uL (0.1-1.3) 09/22/23 04:37 Absolute Eosinophils 0.1 K/uL (0-0.5) 09/22/23 04:37 Absolute Basophils 0.1 K/uL (0-0.5) 09/22/23 04:37 Absolute Retic 0.03 M/uL (0.02-0.11) 09/19/23 07:14 Percent Retic 1.05 % (0.4-2.05) 09/19/23 07:14 Sodium 141 mEq/L (136-145) D 09/22/23 04:37 Potassium 3.8 mEq/L (3.5-5.1) 09/22/23 04:37 Chloride 106 mEq/L (98-107) 09/22/23 04:37 Carbon Dioxide 29 mEq/L (21-32) 09/22/23 04:37 Anion Gap 9.8 mEq/L (5.0-15.0) 09/22/23 04:37 BUN 39 mg/dL (7-18) H 09/22/23 04:37 Creatinine 3.35 mg/dL (0.55-1.02) H 09/22/23 04:37 Est GFR (CKD-EPI) 14 ml/min (=/>90) L 09/22/23 04:37 Glucose 85 mg/dL (74-106) 09/22/23 04:37 Uric Acid 9.6 mg/dL (2.6-6.0) H 09/18/23 11:20 Uric Acid Cancelled 09/18/23 11:20 Calcium 8.3 mg/dL (8.5-10.1) L D 09/22/23 04:37 Phosphorus 3.0 mg/dL (2.5-4.9) 09/22/23 04:37 Magnesium 1.7 mg/dL (1.6-2.4) 09/22/23 04:37 Iron 27.0 ug/dL (50-170) L 09/19/23 07:14 TIBC 116 ug/dL (250-460) L 09/19/23 07:14 Transferrin 83 mg/dL (200-360) L 09/19/23 07:14 Transferrin % Sat 23.3 % (20.0-50.0) 09/19/23 07:14 Ferritin 555.4 ng/mL (8-388) H 09/19/23 07:14 Creatine Kinase 24 U/L (26-192) L 09/18/23 11:20 Total Protein 4.3 g/dL (6.1-8.1) L 09/19/23 07:14 Albumin 1.7 g/dL (3.4-5.0) L 09/22/23 04:37 Prealbumin 12.8 mg/dL (20-40) L 09/22/23 04:37 Ftrli-7-Pvydlaore 0.5 g/dL (0.2-0.3) H 09/19/23 07:14 Vcpxn-2-Taxmoneyd 1.0 g/dL (0.5-0.9) H 09/19/23 07:14 Gamma Globulins 0.4 g/dL (0.8-1.7) L 09/19/23 07:14 M-Kamari 0.2 g/dL H 09/19/23 07:14 M-Kamari 2 [employer]IT [employer]ESTER 09/19/23 07:14 Abnorm Protein Band 3 [employer]ER 09/19/23 07:14 PEP Interpretation Report H 09/19/23 07:14 Vitamin B12 580 pg/mL (193-986) 09/19/23 07:14 TSH 9.090 uIU/mL (0.358-3.740) H 09/19/23 07:14 Free T4 1.31 ng/dL (0.76-1.46) 09/19/23 07:14 PTH Intact 22.3 pg/mL (18.4-80.1) 09/18/23 11:20 Urine Color Colorless (Yellow) 09/16/23 19:20 Urine Clarity Turbid (Clear) H 09/16/23 19:20 Urine pH 7.5 (5.0-7.0) H 09/16/23 19:20 Ur Specific [place] 1.009 (1.005-1.030) 09/16/23 19:20 Glucose (UA)(Auto) Negative (Negative) 09/16/23 19:20 Urine Ketones Negative (Negative) 09/16/23 19:20 Urine Blood 1+ (Negative) H 09/16/23 19:20 Urine Nitrite Negative (Negative) 09/16/23 19:20 Urine Bilirubin Negative (Negative) 09/16/23 19:20 Urine Urobilinogen Normal (Normal) 09/16/23 19:20 Ur Leukocyte Esterase 25 Jorge/uL (Negative) H 09/16/23 19:20 Urine RBC 5-10 /HPF (None Seen) H 09/16/23 19:20 Urine WBC <5 /HPF (<5) 09/16/23 19:20 Ur Squamous Epith Cells <5 /HPF (None Seen) 09/16/23 19:20 Urine Bacteria None seen /HPF (<20) 09/16/23 19:20 Urine Mucus Slight /HPF (None Seen) 09/16/23 19:20 Urine Yeast (Budding) Moderate /HPF (None Seen) H 09/16/23 19:20 Urine Culture Reflexed Not needed 09/16/23 19:20 U Random Total Protein 221.4 mg/dL (<11.9) H 09/18/23 11:34 Urine Creatinine 57.0 mg/dL (20-320) 09/18/23 11:34 Protein/Creatinin Ratio 3.88 ratio (<0.15) H 09/18/23 11:34 Urine Total Protein Trace (Negative) H 09/16/23 19:20 Weight: 125 lb 1.6 oz Wound Present: Yes Closed Surgical Incision Present: No Physician Update: Labs were reviewed. Will add gabapentin for pain. Bed mobility SBA, 65' in the afternoon. CGA with transfers, supervision with bathing. Independent with dressing. She has lower back pain with exercise. Gabapentin 100 mg bid was added. Summary: Patient's care plan and halfway goals have been reviewed and revised as necessary. Please see the Rehabilitation Signature page for all necessary signatures.
--- NOTE | 2023-09-22 18:11 | PN ---
Date of Progress Note: 09/22/2023 History Of Present Illness: The patient was admitted to the hospital after long hospitalization for COVID, AFib with RVR. The patient had nephrectomy. The patient had RVR with AFib. The patient known to have chronic kidney disease, advanced. Physical Examination: Vital Signs: When I saw the patient, blood pressure 166/71, pulse of 59, afebrile. Chest: Clear to auscultation. Heart: S1, S2, regular. Abdomen: Soft, nontender. Extremities: No edema. Neurologic: Alert. No focality. Laboratory Data: Hemoglobin of 8. Sodium 141, potassium 3.8, bicarb 29, BUN 39, creatinine 3.3, GFR of 14, calcium 8.3, albumin 1.7, corrected calcium is 10.3. Current Medications: The patient on include IV iron, megestrol, Eliquis, Plavix, amiodarone, atorvastatin, metoprolol 12.5, Lasix 20 daily, Pantoprazole. Assessment And Plan: 1. Chronic kidney disease, stage IV, advanced secondary to solitary kidney, renal artery stenosis, nonoliguric. No hyperkalemia. No acidosis. No uremic symptoms. Currently, I do not see the need to initiate renal replacement therapy. We will continue to monitor. 2. Hypertension, controlled, optimal. Continue current treatment. 3. Renal artery stenosis, stable. 4. Hypothyroidism. We will continue supplement. 5. Deconditioning. Continue PT/OT. Time spent examining the patient [id number] reviewing that the lab and the radiology placing orders or discussing the case with the patient discussing the case with the team assembler including hospitalist and nursing staff more than 35- minute AMIRAH/PAPA Voice ID: [id number] Report ID: [id number] JATIN
[2023-09-22] MEDS: GABAPENTIN 100 MG CAP PO SCH (20:46)
[2023-09-23 05:50] LABS: Albumin 1.8 g/dL (3.4-5.0); Phosphorus 2.9 mg/dL (2.5-4.9); Potassium 3.9 mEq/L (3.5-5.1)
[2023-09-23] MEDS: CYANOCOBALAMIN 1,000 MCG TAB PO SCH (08:20)
--- NOTE | 2023-09-24 02:51 | PN ---
Date of Progress Note: 09/23/2023 Chief Complaint: Acute kidney injury. Subjective: The patient is admitted to the hospital after long hospitalization for COVID infection, atrial fibrillation with rapid ventricular response. The patient has history of stage IV kidney dise ase secondary to benign nephrosclerosis and solitary kidney. The patient also has renal artery steno sis diagnosed previously. Review of Systems: Denies chest pain, palpitations. Objective: Lungs: Clear to auscultation bilaterally. Heart: S1, S2. Abdomen: Soft. Extremities: No edema. Laboratory Data: BUN 39, creatinine 3.3, GFR 14, corrected calcium 10.3, albumin 1.7, sodium 141, po tassium 3.8. Impression And Plan: 1.Chronic kidney disease stage 4, advanced, secondary to benign nephrosclerosis. Patient has solita ry kidney and history of renal artery stenosis. Monitor blood pressure, renal function. Currently, s he does not have uremia, there is no indication to initiate renal replacement therapy. 2.Hypertension. Continue blood pressure medication. 3.Renal artery stenosis, stable. Patient is on blood pressure medication and blood pressure is cont rolled. 4.Hypothyroid. The patient will continue treatment for hypothyroid. 5.Deconditioning. Continue physical therapy. EB/MODL Voice ID: [id number] Report ID: [id number]
[2023-09-25] MEDS ORDERED: EPOETIN ALFA 10,000 UNIT/ML VIAL IV ONE (14:30)
[2023-09-25] MEDS: EPOETIN ALFA-EPBX 10,000 UNIT/ML VIAL SQ ONE (15:10)
--- NOTE | 2023-09-25 16:54 | PN ---
Date of Progress Note: 09/25/2023 Subjective: This is a 78-year-old woman with past medical history of chronic kidney disease, was adm itted to hospital for COVID-19, AFib with RVR. Patient is now transferred to rehab. Objective: Vital Signs: Temperature 36, blood pressure 146/68. General: Awake and alert, not in distress. Neck: Supple. No elevated JVD. Heart: Regular rate and rhythm. Normal S1 and S2. Chest: Clear to auscultation bilaterally. No rales or wheezes. Abdomen: Soft, nontender. Luis catheter. Extremities: No edema. Laboratory Data: No available labs for today. Medications: Include amiodarone, Eliquis, Plavix, levothyroxine, Megace, metoprolol. Assessment And Plan: 1.Chronic kidney disease, stage 4. Patient's creatinine now is stable at 3.3, GFR 14, . Patient's baseline creatinine right now is 3.3, GFR 14. Continue to monitor. SPEP revealed M-band i n the gamma region. We will order immunoelectrophoresis. 2.Anemia of chronic disease. Hemoglobin is down to 8. We will give her 1 dose of Epogen. We will order serum immunoelectrophoresis. 3.Atrial fibrillation. Currently, rate controlled. Patient is on Eliquis and metoprolol. 4.Hypertension. Right now, blood pressure is controlled. 5.Debility. Continue physical therapy, occupational therapy. Thanks for allowing me to participate in the patient's care. Total time spent 55 minutes including d ocumentation, reviewing labs, and discussing with the nursing staff. PIYUSH Voice ID: [id number] Report ID: [id number]
[2023-09-25] MEDS: DOCUSATE NA/SENNA CONC 1 TAB PO SCH (20:17)
[2023-09-26 06:43] LABS: Hematocrit 23.7 % (36.0-45.0); Lymphocytes % 10.9 % (15.3-44.8); MPV 8.9 fL (7.6-11.3); Platelets 365 thou/uL (152-406)
[2023-09-26 06:54] LABS: Albumin 1.9 g/dL (3.4-5.0); Phosphorus 3.1 mg/dL (2.5-4.9); Potassium 4.5 mEq/L (3.5-5.1)
--- NOTE | 2023-09-27 01:17 | PN ---
Date of Progress Note: 09/26/2023 Time Of Service: 1:40 p.m. Subjective: Ms. Roblero is resting in bed, in no acute distress. She is normocephalic, atraumatic. S clerae anicteric. Oropharynx pink, moist. Neck is supple. Chest clear. No clubbing, cyanosis, or edema. Physical Examination: Vital Signs: Blood pressure 133/61, pulse 69, respiratory rate 18, temperature 97.6, oxygen saturati on 97%. General: Ms. Roblero again is in no acute distress. She has no focal deficits. She is improving very well in terms of strength of lower extremities. Laboratory Studies: White blood cell count 9.0, hemoglobin 8.0, platelets 365. Sodium 142, potassiu m 4.5, chloride 110, carbon dioxide 28, BUN 40, creatinine 2.2, glucose 84, calcium 8.9, phosphorus 3 .1, albumin 1.9. She is followed closely by the renal service. X-ray/imaging: No new x-rays or imaging. Medications: Medications have been reviewed and are unchanged. She did have laxative, Senokot-S, gi camelia yesterday. Progress Made With Physical And Occupational Therapy: Today with physical therapy, she did multiple xpl-jt-vifwj transfers independently. She did ambulate 60 feet 4 times, 90 feet twice independently, ascend and descend 10 steps with bilateral handrails independently and doing that twice. With occup ational therapy, independent supine to sit transfers. Toilet transfers also independent. She tolera rachel 5 minutes of standing while performing bilateral upper extremity exercises with 2 seat ed rest breaks to improve her balance and endurance. Ms. Roblero is making great progress with physical and occupational therapy and is ready for discharge in the morning. She will continue therapy via home health. Assessment And Plan: Ms. Roblero is a 78-year-old patient in rehabilitation with critical illness myop athy from which she is recovering very well. She has chronic renal failure and is followed by the re nal service. She has atrial fibrillation, aortic stenosis, debility. She had COVID positivity, whic h has improved; dehydration; congestive heart failure; hypertension; hyponatremia; malnutrition; pleu ral effusion; pneumonia; urinary tract infection. Those have been addressed and are improved signifi cantly. Plan: 1.She will continue with physical and occupational therapy for 3 hours a day, 5 of 7 days until disc harge tomorrow. 2.She does have the comorbid conditions, which are listed and they are addressed by continuing her m edications. In addition, she has the renal service which is following her. Comorbidities That Are Continuing To Impact Rehabilitation: Currently, her respirations are improvin g, as she is using incentive spirometry. Again, she is managed by the renal service and f luid restriction along with renal management. IGLESIA/PAPA Voice ID: [id number] Report ID: [id number]
--- NOTE | 2023-09-27 02:35 | PN ---
Date of Progress Note: 09/26/2023 Chief Complaint: Acute kidney injury, cardiorenal syndrome. Subjective: The patient has multiple medical problems. She was admitted to the hospital recently af ter a long hospitalization for chronic infection, atrial fibrillation with rapid ventricular response . The patient has history of stage IV chronic kidney disease secondary to benign nephrosclerosis and solitary kidney. The patient has nonoliguric urine output. The patient was diagnosed with renal ar umberto stenosis on previous occasion. Review of Systems: Denies chest pain, palpitation. Physical Examination: Lungs: Clear to auscultation bilaterally. Heart: S1, S2. Abdomen: Soft. Extremities: Slight edema. Impression And Plan: 1.Acute on chronic kidney injury, cardiorenal syndrome. Continue to monitor electrolytes. Continue low-sodium diet and p.o. fluid restriction as well as to avoid nonsteroidal anti-inflammatory medica tion. Continue IV hydration for acute kidney injury. The patient is tolerating p.o. intake. The pa tient will continue adequate hydration by mouth. 2.Renal artery stenosis, stable. Monitor blood pressure. 3.Hypothyroidism. Continue treatment for hypothyroidism. 4.Deconditioning. Physical therapy is pending. EB/MODL Voice ID: [id number] Report ID: [id number]
[2023-09-27 07:03] VITALS: BP 146/63; TEMP 96.8
== END 2023-09-27 14:00 | disposition home health service (06) | DRG 91 ==
LOC: 5TH 11:25
PROVIDERS: ADMIT Psychiatry & Neurology Neurology with Special Qualifications in Child Neurology; ATTEND Psychiatry & Neurology Neurology with Special Qualifications in Child Neurology
DX: G72.81 Critical illness myopathy (principal); E43 Unspecified severe protein-calorie malnutrition; U07.1 COVID-19; N17.9 Acute kidney failure, unspecified; I50.30 Unspecified diastolic (congestive) heart failure; I13.0 Hypertensive heart and chronic kidney disease with heart failure and stage 1 through stage 4 chronic kidney disease, or unspecified chronic kidney disease; E87.1 Hypo-osmolality and hyponatremia; N18.4 Chronic kidney disease, stage 4 (severe); I48.91 Unspecified atrial fibrillation; E11.22 Type 2 diabetes mellitus with diabetic chronic kidney disease; R63.0 Anorexia; E88.09 Other disorders of plasma-protein metabolism, not elsewhere classified; E03.9 Hypothyroidism, unspecified; E78.5 Hyperlipidemia, unspecified; D63.1 Anemia in chronic kidney disease; I25.10 Atherosclerotic heart disease of native coronary artery without angina pectoris; N25.0 Renal osteodystrophy; I35.0 Nonrheumatic aortic (valve) stenosis; R53.81 Other malaise; E86.0 Dehydration; E11.65 Type 2 diabetes mellitus with hyperglycemia; R33.9 Retention of urine, unspecified; I70.1 Atherosclerosis of renal artery; Z86.73 Personal history of transient ischemic attack (TIA), and cerebral infarction without residual deficits
CPT/HCPCS: 31720; 36415; 71045; 74018; 80048; 80069; 81001; 82040; 82550; 82570; 82607; 82728; 83540; 83735; 83970; 84134; 84156; 84165; 84439; 84443; 84466; 84550; 85025; 85044; 86334; 87086; 87088; 94010; 97010; 97110; 97116; 97163; 97165; 97530; 97542; J2916; J3420; J7050; Q0162; Q5106